=== PATIENT | male | born 1985 | race African-American/Black ===

== ENCOUNTER 2020-08-07 18:29 | Inpatient (IN) | payer OTHER ==
[~2020-08-07] VITALS: Ht 172.7 cm; Wt 51.8 kg
[~2020-08-07 18:29] MED LIST: ALBUTEROL2.5 MG/3 M INH; ATROVENT HFA12.9 GM IH; BACLOFEN10 MG GT; FAMOTIDINE20 MG GT; FERRIPROX GT; FOLIC ACID1 MG GT; HYDREA500 MG GT; HYDROMORPHO2 MG/1 M8 GT; LEVETIRACETAM1000 MG GT; MAGNESIUM OXID400 M1 GT; MORPHINE SU4 MG/1 M2 GT; MULTIVITAMINS1 EAC2 GT; POLYETHYLENE GL17 GM ORAL; TYLENOL EXTRA500 MG GT; VANCOMYCIN HC1.25 GM IV
[2020-08-07 18:30] VITALS: BP 81/55
--- NOTE | 2020-08-07 18:30 | NUR ---
ED Nurse Note: Patient brought into ED by BECCA RA 70 from [facility] for c/o respiratory distress and elevated temperature onset today. Per [facility] the facility stated that patient became hot to the touch, was tachypneic and was more lethargic than normal. Patient has a trach and is permanently on a ventilator at facility. Upon ED arrival, patient was on portable ventilator. Patient appears to be in mild distress, labored breathing and is hot to the touch. ERMD bedside. Patient connected to ekg monitor tech and was initially hypotensive, MD aware. Patient placed on mechanical ventilator by RT. Patient is awake and alert and responds to painful stimuli; able to move extremities. Safety measures in place; will continue to closely monitor patient.
--- NOTE | 2020-08-07 18:45 | NUR ---
ED Nurse Note: Patient has G tube in place. Partial removed of skull noted to R side of head.
[2020-08-07 19:00] VITALS: BP 80/50
--- NOTE | 2020-08-07 19:05 | Diagnostic Imaging Report ---
FILM CXR 1 VIEW INDICATION: Altered level of consciousness COMPARISON: July 20, 2020 FINDINGS: Single frontal view demonstrates a normal cardiomediastinal silhouette. Right lower lobe opacity. Tracheostomy tube in place. No effusion or pneumothorax appreciated. No acute osseous abnormality. IMPRESSION: Right lower lobe pneumonia.
[2020-08-07] MEDS ORDERED: Acetaminophen 650 MG SUPP RECTAL ONE ×2 (19:20→19:30)
--- NOTE | 2020-08-07 19:21 | Emergency Room Report ---
History of Present Illness General Chief Complaint: Dyspnea/Respdistress Source: Medical Record, EMS Present Illness HPI Patient presents with fever, hypotension and hypoxia. Vent dependent from SNF. Last admission d/c dx: MRSA sepsis probably due to infected Port-A-Cath , present on admission Status post removal of implanted right chest wall Port-A-Cath Sickle cell crisis Sickle cell anemia Chronic respiratory failure, ventilator dependent, with tracheostomy status Transaminitis Seizure disorder Allergies: Coded Allergies: ADHESIVE TAPE (Verified Allergy, Unknown, 07/20/20) Uncoded Allergies: TAPE (Allergy, Unknown, 08/07/20) COVID-19 Screening Contact w/high risk pt: No Experienced COVID-19 symptoms?: Yes COVID-19 symptoms experienced: Fever (T>100.4F or >38C) COVID-19 Testing performed SPECIAL EDUCATION RESOURCE ROOM TEACHER: No Patient History Limited by: medical condition Past Medical History: see triage record, old chart reviewed, other - sickle cell, intracerebral hemorrhage Past Surgical History: other - craniectomy, trach Social History Narrative from SNF Reviewed Nursing Documentation: PMH: Agreed; PSxH: Agreed Nursing Documentation-PMH Past Medical History: No History, Except For Review of Systems All Other Systems: limited Physical Exam Vital Signs Date Time Temp Pulse Resp B/P (MAP) Pulse Ox O2 Delivery O2 Flow Rate FiO2 08/07/20 18:23 100.9 104 16 106/54 (71) 100 Mechanical Ventilator 08/07/20 18:36 30 Sp02 EP Interpretation: reviewed, abnormal - as interpreted by me General Appearance: mild distress, thin, Chronically Ill Head: other - post craniectomy Eyes: bilateral eye PERRL, bilateral eye EOMI ENT: dry mucus membranes Neck: supple Respiratory: rales, other - beige secretions in trach tube Cardiovascular #1: regular rate, rhythm Cardiovascular #2: 2+ radial (R), 2+ femoral (R) Gastrointestinal: other - G tube, decreased bowel sounds, scaphoid Genitourinary: penis normal, scrotum normal - minimal inflammation Musculoskeletal: back normal, other Neurologic: responsive - intermittently, other - moves UE Psychiatric: other - lethargic - waxing and waning Skin: no rash, Decubitus/Ulcer - Stage II sacrum, other - febrile Procedures Critical Care Time Critical Care Time Total Critical Care Time: 60 min bedside evaluation and treatment excludes procedures (EKG, CVP). Reason for critical care: severe sepsis, repeat evaluations, discussion with family, tachycardia Possible complications: hypotension, hypertension, KS, shock, arrhythmias, metabolic acidosis, end organ damage, respiratory failure. Interventions: sepsis resuscitation, antibiotics, CVP, repeat evaluations, discussion with family Course: Patient presented febrile, hypotensive and hypoxic. Sepsis resuscitation initiated along with antibiotics for pneumonia. CVP inserted. Tachycardia with repeat evaluations of CXR and lactate. Administration of morphine. Still with tachycardia. EKG with new right axis deviation. CTA ordered. Heparin initially ordered then held. Repeat morphine and fluids. Consultations: nursing staff, EMS, family, RT Performed by: Dr. Chaney Tolerated well condition = critical Central Line Central Line : Consent: Emergent Central Line Lumen: triple Maximal Sterile Barrier Tech: yes cap, yes mask, yes sterile gown, yes sterile gloves, yes large sterile sheet, yes hand hygiene, yes chlorhexidine prep Central Line Postion: femoral (R) Anesthesia: Lidocaine cc's of anesthesia: 4 US Guided Line?: Yes Vessel visualized with U/S: Right Femoral Vein Ultrasound Findings: Collapsible Vessel, Vessel Patent Complications: none Central Line Post Position: sutured, good blood return Attempts: One Patient Tolerated: Well Complications: None Medical Decision Making Diagnostic Impression: Primary Impression: Severe sepsis Additional Impressions: Tachycardia Sickle cell anemia Qualified Codes: D57.00 - Hb-SS disease with crisis, unspecified Status post craniectomy Pneumonia Qualified Codes: J18.9 - Pneumonia, unspecified organism ER Course Patient presented with fever, hypotension and hypoxia. Differential includes severe sepsis, pneumonia, other source of infection, pulmonary embolus amongst others. Evaluation with EKG, chest x-ray and labs. Due to the high suspicion of severe sepsis 30 ml/kg bolus and maintenance ordered. Antibiotics ordered for RLL pneumonia. 724 CVP begun as continued hypotension. Hypotension improved with fluid bolus. WBC elevated. Initial lactate = 1.2. Mentation improved. Worsened dyspnea. HR inc as well as BP. Repeat lactic acid, VBG and CXR. Morphine ordered as c/o chest pain. Added Vancomycin. Discussed in detail with Mom. Improved after morphine. [address] Repeat EKG with new right axis deviation. Need to R/O PE and pulmonary infarction as risk with sickle cell. CTA ordered and heparin also ordered. Heparin held by Dr. Nelson. Await CTA. CTA as below. Pending ICU admission. Laboratory Tests Test 08/07/20 19:00 08/07/20 19:20 08/07/20 22:20 08/07/20 22:34 White Blood Count 31.5 K/UL (4.8-10.8) *H Red Blood Count 2.91 M/UL (4.70-6.10) L Hemoglobin 9.3 G/DL (14.2-18.0) L Hematocrit 29.1 % (42.0-52.0) L Mean Corpuscular Volume 100 FL (80-99) H Mean Corpuscular Hemoglobin 31.9 PG (27.0-31.0) H Mean Corpuscular Hemoglobin Concent 31.9 G/DL (32.0-36.0) L Red Cell Distribution Width 18.6 % (11.6-14.8) H Platelet Count 230 K/UL (150-450) Mean Platelet Volume 10.7 FL (6.5-10.1) H Neutrophils (%) (Auto) % (45.0-75.0) Lymphocytes (%) (Auto) % (20.0-45.0) Monocytes (%) (Auto) % (1.0-10.0) Eosinophils (%) (Auto) % (0.0-3.0) Basophils (%) (Auto) % (0.0-2.0) Differential Total Cells Counted 100 Neutrophils % (Manual) 87 % (45-75) H Lymphocytes % (Manual) 6 % (20-45) L Monocytes % (Manual) 3 % (1-10) Eosinophils % (Manual) 0 % (0-3) Basophils % (Manual) 1 % (0-2) Band Neutrophils 3 % (0-8) Platelet Estimate Adequate Platelet Morphology Normal Hypochromasia 1+ Anisocytosis 2+ Macrocytosis 1+ Prothrombin Time 11.8 SEC (9.30-11.50) H Prothrombin Time INR 1.1 (0.9-1.1) Activated Partial Thromboplast Time 37 SEC (23-33) H Sodium Level 139 MMOL/L (136-145) Potassium Level 5.6 MMOL/L (3.5-5.1) H Chloride Level 101 MMOL/L (98-107) Carbon Dioxide Level 31 MMOL/L (21-32) Anion Gap 7 mmol/L (5-15) Blood Urea Nitrogen 34 mg/dL (7-18) H Creatinine 1.1 MG/DL (0.55-1.30) Estimated Glomerular Filtration Rate > 60 mL/min (>60) Glucose Level 95 MG/DL (74-106) Lactic Acid Level 1.20 mmol/L (0.4-2.0) 1.20 mmol/L (0.4-2.0) Calcium Level 10.0 MG/DL (8.5-10.1) Magnesium Level 2.1 MG/DL (1.8-2.4) Total Bilirubin 1.4 MG/DL (0.2-1.0) H Direct Bilirubin 0.8 MG/DL (0.0-0.3) H Aspartate Amino Transferase (AST) 74 U/L (15-37) H Alanine Aminotransferase (ALT) 94 U/L (12-78) H Alkaline Phosphatase 569 U/L (46-116) H Total Creatine Kinase 9 U/L (26-308) L Troponin I 0.000 ng/mL (0.000-0.056) Pro-B-Type Natriuretic Peptide 401 pg/mL (0-125) H Total Protein 9.4 G/DL (6.4-8.2) H Albumin 3.2 G/DL (3.4-5.0) L Globulin 6.2 g/dL Albumin/Globulin Ratio 0.5 (1.0-2.7) L Lipase 240 U/L (73-393) Urine Color Yellow Urine Appearance Slightly cloudy Urine pH 5 (4.5-8.0) Urine Specific [place] 1.005 (1.005-1.035) Urine Protein 2+ (NEGATIVE) H Urine Glucose (UA) Negative (NEGATIVE) Urine Ketones Negative (NEGATIVE) Urine Blood 1+ (NEGATIVE) H Urine Nitrite Negative (NEGATIVE) Urine Bilirubin Negative (NEGATIVE) Urine Urobilinogen Normal MG/DL (0.0-1.0) Urine Leukocyte Esterase 1+ (NEGATIVE) H Urine RBC 2-4 /HPF (0 - 0) H Urine WBC 5-10 /HPF (0 - 0) H Urine Squamous Epithelial Cells Moderate /LPF (NONE/OCC) H Urine Bacteria Few /HPF (NONE) Venous Blood pH 7.351 Venous Blood Partial Pressure CO2 48 Venous Blood Partial Pressure O2 36.8 Venous Blood HCO3 26 Venous Blood Total Carbon Dioxide 48 Venous Blood Base Excess 0.1 Venous Blood Carboxyhemoglobin 1.1 % (0.5-1.5) Methemoglobin 1.2 Microbiology Date/Time Source Procedure Growth Status 08/07/20 18:43 Nasopharynx SARS-CoV-2 RdRp Gene Assay - Final Complete EKG Diagnostic Results Rate: normal Rhythm: NSR ST Segments: no acute changes Other Impression second EKG with ST and new right axis deviation Rhythm Strip Diag. Results EP Interpretation: yes Rhythm: no PVC's, no ectopy, other - ST Chest X-Ray Diagnostic Results Chest X-Ray Diagnostic Results #1: Chest X-Ray Ordered: Yes # of Views/Limited/Complete: 1 View Indication: Shortness of Breath EP Interpretation: Yes Interpretation: no effusion, no pneumothorax, other - RLL infiltrate Impression: Other Chest X-Ray Diagnostic Results #2: Chest X-Ray Ordered: Yes # of Views/Limited/Complete: 1 View Indication: Other EP Interpretation: Yes Interpretation: no effusion, no pneumothorax, other - worsened infiltrate RLL Impression: Other CT/MRI/US Diagnostic Results CT/MRI/US Diagnostic Results : Imaging Test Ordered: CTA chest Impression 1. There are moderately consolidating infiltrates identified in both lower lobes dependently with mild additional patchy infiltrates dependently in both upper lobes. The findings are consistent with bilateral nonspecific pneumonia. Aspiration pneumonia could give this appearance. The infiltrates are only somewhat typical of Covid 19. Confidence is immediate. 2. Evaluation for pulmonary embolus is limited due to breathing motion artifact. No central pulmonary emboli are identified. Last Vital Signs Date Time Temp Pulse Resp B/P (MAP) Pulse Ox O2 Delivery O2 Flow Rate FiO2 08/08/20 03:00 101.5 130 17 119/73 98 Mechanical Ventilator 35 Status: improved Disposition: ADMITTED INPATIENT Condition: Critical Referrals: All Paige MD (PCP) Benson Chaney MD Aug 07, 2020 19:21
[2020-08-07] MEDS ORDERED: cefTRIAXone 1 GM in NS 55 ML IVPB ONE (19:30)
[2020-08-07] MEDS ORDERED: Azithromycin 500 MG in D5W 275 ML IVPB ONE (19:30)
[2020-08-07 19:41] LABS: HEMATOCRIT 29.1 % (42.0-52.0); HEMOGLOBIN 9.3 G/DL (14.2-18.0); MEAN CORPUSCULAR VOLUME 100 FL (80-99); PLATELET COUNT 230 K/UL (150-450); RED BLOOD COUNT 2.91 M/UL (4.70-6.10); RED CELL DISTRIBUTION WIDTH 18.6 % (11.6-14.8)
[2020-08-07 19:52] LABS: WHITE BLOOD COUNT 31.5 K/UL (4.8-10.8)
[2020-08-07 19:52] LABS: APPEARANCE,URINE SLIGHTLY CLOUDY; BILIRUBIN, URINE NEGATIVE (NEGATIVE); GLUCOSE, URINE (UA) NEGATIVE (NEGATIVE); KETONES,URINE NEGATIVE (NEGATIVE); LEUKOCYTE ESTERASE ,URINE 1+ (NEGATIVE); NITRITE,URINE NEGATIVE (NEGATIVE); PH,URINE 5 (4.5-8.0); PROTEIN,URINE 2+ (NEGATIVE); UROBILINOGEN,URINE NORMAL MG/DL (0.0-1.0)
[2020-08-07 19:53] LABS: COLOR,URINE YELLOW
[2020-08-07 19:57] LABS: INR 1.1 (0.9-1.1)
[2020-08-07 20:00] VITALS: BP 91/43
[2020-08-07] MEDS ORDERED: Lidocaine 1% Plain 30 ml INJ ONE (20:00)
[2020-08-07 20:01] LABS: ANION GAP 7 mmol/L (5-15); BLOOD UREA NITROGEN 34 mg/dL (7-18); CARBON DIOXIDE 31 MMOL/L (21-32); CHLORIDE 101 MMOL/L (98-107); CREATININE 1.1 MG/DL (0.55-1.30); POTASSIUM 5.6 MMOL/L (3.5-5.1); SODIUM 139 MMOL/L (136-145)
--- NOTE | 2020-08-07 20:15 | NUR ---
ED Nurse Note: R femoral central line placed by DONNA Chaney. Patient tolerated well; no complications.
[2020-08-07 20:16] LABS: ALANINE AMINOTRANSFERASE 94 U/L (12-78); ALBUMIN 3.2 G/DL (3.4-5.0); ALBUMIN/GLOBULIN RATIO 0.5 (1.0-2.7); ALKALINE PHOSPHATASE 569 U/L (46-116); ASPARTATE AMINO TRANSFERASE 74 U/L (15-37); BILIRUBIN,TOTAL 1.4 MG/DL (0.2-1.0); CREATINE KINASE 9 U/L (26-308)
[2020-08-07 20:18] LABS: BILIRUBIN,DIRECT 0.8 MG/DL (0.0-0.3)
[2020-08-07 21:00] VITALS: BP 97/59
--- NOTE | 2020-08-07 21:00 | NUR ---
ED Nurse Note: Patient is awake and alert at this time. Coughing noted, RT suctioned patient. No acute distress. Patient responded well to tylenol. See vitals flow sheet. Will continue to monitor. MD is aware of patient's BP.
[2020-08-07 22:20] VITALS: BP 142/89
--- NOTE | 2020-08-07 22:20 | NUR ---
ED Nurse Note: Patient began labored breathing, appears in mild distress with elevated HR. Lip tremors noted. MD made aware and is bedside. RT paged and will suction patient.
--- NOTE | 2020-08-07 22:25 | NUR ---
ED Nurse Note: When asked if patient has pain, he nods head yes. RN touched patient's chest and asked if this is where he is having pain and he nods yes. MD made aware. Will administer pain medication.
[2020-08-07] MEDS ORDERED: Morphine Sulfate 2mg/ml Inj(IV/IM USE ONLY) ONE (22:35)
[2020-08-07] MEDS ORDERED: Morphine Sulfate 2mg/ml Inj(IV/IM USE ONLY) IVP ONE (22:45)
--- NOTE | 2020-08-07 22:55 | Diagnostic Imaging Report ---
EXAM: XR Chest, 1 View CLINICAL HISTORY: DYSPNEA TECHNIQUE: Frontal view of the chest. COMPARISON: Chest radiograph dated 08/07/2020 FINDINGS: Lungs: Increasing airspace opacity of the right lower lung. Pleural space: Unremarkable. No pneumothorax. Heart: Unremarkable. No cardiomegaly. Mediastinum: Unremarkable. Bones/joints: Unremarkable. Tubes, lines and devices: Tracheostomy tube in place. IMPRESSION: Increasing right lower lobe airspace disease suspicious for pneumonia.
[2020-08-07 23:00] VITALS: BP 124/78
[2020-08-07] MEDS ORDERED: EXJADE125 MG GT (23:06)
[2020-08-07] MEDS ORDERED: FERRIPROX GT (23:06)
[2020-08-07] MEDS ORDERED: HIBICLENS118 ML TP (23:06)
[2020-08-08] VITALS (29 sets, daily range): BP systolic 92–152; BP diastolic 49–100
--- NOTE | 2020-08-08 00:30 | NUR ---
ED Nurse Note: Patient remains tachy in 130's. DONNA Chaney is aware and bedside. Patient does not appear to be in any acute distress. Patient temp is trending up again at 99.6F axillary. MD notified.
[2020-08-08] MEDS ORDERED: Acetaminophen 650 MG SUPP RECTAL PRN (00:45)
--- NOTE | 2020-08-08 00:45 | NUR ---
ED Nurse Note: Patient rectal temp 103.7F. Administered Tylenol. combination technician bedside for repeat EKG.
[2020-08-08] MEDS ORDERED: Heparin 5000 units/ml inj IV ONE (01:00)
[2020-08-08] MEDS ORDERED: Heparin 25,000u/D5W 500ml 500 ML IV SCH (01:00)
[2020-08-08] MEDS ORDERED: Vancomycin 1 GM in D5W 275 ML IVPB ONE (01:00)
[2020-08-08] MEDS ORDERED: Morphine Sulfate 4mg/ml Inj (IV USE ONLY) IVP PRN (01:00)
[2020-08-08] MEDS ORDERED: Omnipaque 350 100ml vial INJ PRN (01:00)
--- NOTE | 2020-08-08 01:05 | NUR ---
ED Nurse Note: DONNA Nelson notes to hold heparin drip at this time pending results of CT.
--- NOTE | 2020-08-08 01:05 | NUR ---
ED Nurse Note: Will not administer heparin drip at this time per doctor's orders. Heparin scanned in eMAR, but not administered.
--- NOTE | 2020-08-08 02:00 | NUR ---
ED Nurse Note: Patient is sleeping at this time. Patient RR has gone down to 19 with 100% oxygen saturation. He does not appear to be labored breathing currently. He appears more calm than previous noted condition. HR remains tachy. See vitals flow sheet.
--- NOTE | 2020-08-08 02:40 | NUR ---
ED Nurse Note: Patient rectal temp 101.5F; trending down from previously charted temp.
--- NOTE | 2020-08-08 02:50 | NUR ---
ED Nurse Note: Report given to ARLYN Salomon.
--- NOTE | 2020-08-08 03:00 | NUR ---
ED Nurse Note: Patient transferred to ICU unit at this time as ordered. Patient is awake and alert, no pain currently. Patient is able to answer yes and no questions and make needs known by nodding head, does not speak due to trach. He is breathing normal and does not appear to be in distress at this time. HR remains tachy, BP stable. Patient taken to unit via gurney by RT/RN/lexii and connected to desk monitor. He was moved to ICU bed without complication and reconnected to mechanical vent. R femoral central line and R arm peripheral line are patent/intact. No belongings. Patient's spouse is aware of ICU admission. Addendum: 08/08/20 at 0335 by LATHA Patient's mother not spouse.
--- NOTE | 2020-08-08 03:18 | Diagnostic Imaging Report ---
EXAM: CT Angiography Chest With Intravenous Contrast CLINICAL HISTORY: PE, shortness of breath TECHNIQUE: Axial computed tomographic angiography images of the chest with intravenous contrast. CTDI is 43.50 mGy and DLP is 149.60 mGy-cm. One or more of the following dose reduction techniques were used: automated exposure control, adjustment of the mA and/or kV according to patient size, use of iterative reconstruction technique. MIP reconstructed images were created and reviewed. COMPARISON: No relevant prior studies available. FINDINGS: Pulmonary arteries: Evaluation for pulmonary embolus is limited due to breathing motion artifact. No central pulmonary emboli are identified. Aorta: No acute findings. No thoracic aortic aneurysm. Lungs: There are moderately consolidating infiltrates identified in both lower lobes dependently with mild additional patchy infiltrates dependently in both upper lobes. The findings are consistent with bilateral nonspecific pneumonia. Aspiration pneumonia could give this appearance. The infiltrates are only somewhat typical of Covid 19. Confidence is immediate. Pleural space: Unremarkable. No significant effusion. No pneumothorax. Heart: Unremarkable. No cardiomegaly. No significant pericardial effusion. No evidence of RV dysfunction. Bones/joints: No acute fracture. No dislocation. Soft tissues: Unremarkable. Lymph nodes: Unremarkable. No enlarged lymph nodes. Tubes, lines and devices: There is a tracheostomy tube in good position. IMPRESSION: 1. There are moderately consolidating infiltrates identified in both lower lobes dependently with mild additional patchy infiltrates dependently in both upper lobes. The findings are consistent with bilateral nonspecific pneumonia. Aspiration pneumonia could give this appearance. The infiltrates are only somewhat typical of Covid 19. Confidence is immediate. 2. Evaluation for pulmonary embolus is limited due to breathing motion artifact. No central pulmonary emboli are identified.
--- NOTE | 2020-08-08 03:19 | NUR ---
NURSE NOTES: RECEIVED PATIENT FROM ER NURSE ARLYN MARQUIS VIA CHANDNI. PATIENT DROWSY, RESPONSE TO TACTILE STIMULI, ON TRACH TO VENT, AC 14/TV 500/FIO2 35%/PEEP 5, O2 SATURATION 100% NOTED, HR 120'S/MIN ST NOTED, ABDOMEN SOFT, G TUBE INTACT AND CLAMP STATUS, F/C INTACT AND PATENT, YELLOW URINE OUTED, PPL TO RIGHT FA AND TLC TO RIGHT FEMORAL, INTACT AND PATENT, KEPT SZ AND ASPIRATION PRECAUTION, NOTED OPEN WOUND TO SACRAL AND RIGHT UPPER CHEST, MADE LOWER BED POSITION, ON BED ALARM AND LOCKED, PROVIDED CALL LIGHT WITHIN REACH, WILL CONTINUE TO MONITOR.
--- NOTE | 2020-08-08 04:12 | NUR ---
NURSE NOTES: CALLED DR. EDWARDS REGARDING ADMISSION ORDER THAT LEFT MESSAGE.
--- NOTE | 2020-08-08 05:00 | NUR ---
NURSE NOTES: LE: CALLED DR. IRVING REGARDING ADMISSION ORDER THAT DR. ELLIS WAS WELDER PLAST[employer] DR, LEFT MESSAGE.
--- NOTE | 2020-08-08 05:30 | NUR ---
NURSE NOTES: LE: PATIENT ASLEEP STATUS, NO PAIN OR SOB NOTED AT THIS TIME.
--- NOTE | 2020-08-08 06:08 | NUR ---
NURSE NOTES: SEEN THE PATIENT BY DR. EDWARDS, MADE ADMISSION ORDER, WILL CARRY OUT.
[2020-08-08] MEDS ORDERED: Piperacillin/Tazobactam 3.375 GM in NS 110 ML IVPB SCH (06:15)
[2020-08-08] MEDS ORDERED: Albuterol ud Inhalation HHN PRN (06:15)
--- NOTE | 2020-08-08 06:54 | NUR ---
RD ASSESSMENT & RECOMMENDATIONS SEE CARE ACTIVITY FOR COMPLETE ASSESSMENT DAILY ESTIMATED NEEDS: Needs based on Underweight, Critical care/ 50.8kg 30-35 kcals/kg 0435-0715 total kcals 1.25-2 g protein/kg 64-102 g total protein 25-30 mL/kg 4899-6163 total fluid mLs NUTRITION DIAGNOSIS: Swallowing difficulty R/T respiratory status, dysphagia as evidenced by h/o craniectomy, trach/vent dep, PEG dep. CURRENT TF:Glucerna 1.5 @ 40ml/hr x 24 hrs ENTERAL NUTRITION RECOMMENDATIONS: Jevity1.2 @ 55ml/hr x 24 hrs to provide 1320ml, 1584kcal, 73g prot, 1065ml free water * Consider TF change to Jevity 1.2, start at low rate 25ml/hr advance as tolerated to goal. * HOB over 30 degrees/ H2O flushes per MD ADDITIONAL RECOMMENDATIONS: * Maintain calibrated bedscale wt * Monitor lytes, BG need for TF change * Monitor lytes, replete as needed K 5.6-> monitor need for NEPRO * F/up w/ WC eval for sacral wound
--- NOTE | 2020-08-08 07:30 | NUR ---
NURSE HAND-OFF REPORT: Latest Vital Signs: Temperature 99.7 , Pulse 121 , B/P 93 /56 , Respiratory Rate 16 , O2 SAT 100 , Mechanical Ventilator, O2 Flow Rate . Vital Sign Comment: EKG Rhythm: Sinus Tachycardia Rhythm change?: N MD Notified?: - MD Response: Latest Stevens Fall Score: 50 Fall Risk: High Risk Safety Measures: Call light , Bed Alarm Zone 1, Side Rails Side Rails x3, Bed position Low and Locked. Fall Precautions: Yellow Socks Door Sign Patient Fall Education Report given to ARLYN CORDOVA.
--- NOTE | 2020-08-08 07:31 | NUR ---
NURSE NOTES: Received report from ARLYN Salomon. Patient awake and responsive to verbal. Portex 6 with vent setting AC 14, VT 500, Peep 5 and FiO2 35%. O2 sat 100% on the monitor. ST 120-130s on the monitor. GT intact and clamped at this time. Will start glucerna 1.5 as ordered. [place] intact, patent and draining yellow color urine. Right femoral TLC intact and running with NS @100ml/hr. Kept dry, clean, comfortable and HOB>30. Will continue plan of care.
[2020-08-08] MEDS: Acetaminophen 650mg/20.3ml GT PRN ×2 (08:36→17:38)
--- NOTE | 2020-08-08 08:36 | NUR ---
NURSE NOTES: Patient has fever 101.0 AX. Tylenol given as ordered. Started cooling measure.
[2020-08-08] MEDS: Hydroxyurea 500mg cap ORAL SCH (08:37)
[2020-08-08] MEDS: Vancomycin 1gm in D5W 275ml IVPB SCH ×2 (08:37→20:19)
[2020-08-08] MEDS: Piperacillin/Tazobactam 3.375 GM in NS 110 ML IVPB SCH ×3 (08:38→23:45)
--- NOTE | 2020-08-08 08:41 | Critical Care Progress Note ---
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 Port-A-Cath Status post removal of implanted right chest wall Port-A-Cath Sickle cell crisis Sickle cell anemia Chronic respiratory failure, ventilator dependent, with tracheostomy status Transaminitis Seizure disorder acute pneumonia leukocytosis possible recurrent sepsis PLAN care noted IV antibiotics respiratory care Ventilatory support SNF meds supportive care suction no wean oxygen therapy prognosis guarded medications/laboratory data/nursing notes/ICU care reviewed in detail note reviewed and edited care discussed with RN and RT ICU time spent >40 minutes Critical Care - Subjective Interval Events: asked to follow up on vent readmitted ROS Limited/Unobtainable: Yes Condition: critical EKG Rhythm: Sinus Rhythm Residuals: minimal Tube Feeding Tolerated: yes I&O: Intake and Output 08/07/20 08/08/20 19:00 07:00 Intake Total 45 ml Output Total 3400 ml Balance -3355 ml Intake Oral 0 ml IV Total 45 ml Output Urine Total 3400 ml Critical Care - Objective Last 24 Hour Vital Signs Date Time Temp Pulse Resp B/P (MAP) Pulse Ox O2 Delivery O2 Flow Rate FiO2 08/08/20 07:58 135 23 35 08/08/20 07:00 127 17 110/63 (79) 100 08/08/20 06:30 121 16 93/56 (68) 100 08/08/20 06:00 99.7 117 15 95/59 (71) 100 08/08/20 05:00 122 15 94/52 (66) 100 08/08/20 04:30 121 15 92/59 (70) 100 08/08/20 04:00 Mechanical Ventilator 08/08/20 04:00 122 22 109/67 (81) 100 08/08/20 03:58 119 08/08/20 03:45 119 19 99/63 (75) 100 08/08/20 03:30 35 08/08/20 03:30 119 20 105/68 (80) 100 08/08/20 03:30 Mechanical Ventilator 08/08/20 03:20 99.7 123 17 112/71 (85) 100 08/08/20 03:00 101.5 130 17 119/73 98 Mechanical Ventilator 35 08/08/20 02:46 101.5 08/08/20 02:40 101.5 140 26 139/80 100 Mechanical Ventilator 35 08/08/20 02:35 128 23 35 08/08/20 02:00 125 19 112/85 100 Mechanical Ventilator 40 08/08/20 01:48 101.5 08/08/20 01:00 124 19 115/65 100 Mechanical Ventilator 40 08/08/20 00:30 99.6 137 20 137/69 100 Mechanical Ventilator 40 08/07/20 23:50 134 28 40 08/07/20 23:06 98.0 08/07/20 23:00 98.0 135 25 124/78 100 Mechanical Ventilator 40 08/07/20 22:20 98.0 126 26 142/89 92 Mechanical Ventilator 32 08/07/20 21:00 98.0 86 15 97/59 97 Mechanical Ventilator 32 08/07/20 20:00 85 15 91/43 100 Mechanical Ventilator 32 08/07/20 19:54 98.0 08/07/20 19:00 93 15 80/50 99 Mechanical Ventilator 32 08/07/20 19:00 32 08/07/20 18:36 15 30 08/07/20 18:30 102.6 97 16 81/55 100 Mechanical Ventilator 08/07/20 18:30 97 16 Mechanical Ventilator 08/07/20 18:23 100.9 104 16 106/54 (71) 100 Mechanical Ventilator Labs: WDWN chronically ill trach clear breath sounds bilaterally without rhonchi or wheeze [id number] without MRG NABS nontender GT no CCE poor LOC Micro: Microbiology Date/Time Source Procedure Growth Status 08/07/20 18:43 Nasopharynx SARS-CoV-2 RdRp Gene Assay - Final Complete James Nuñez MD Aug 08, 2020 08:41
[2020-08-08] MEDS ORDERED: Sodium Polystyrene Sulfonate 15gm Powder ORAL SCH (09:15)
--- NOTE | 2020-08-08 10:30 | History and Physical Report ---
DATE OF ADMISSION: 08/07/2020 CHIEF COMPLAINT: Sepsis and pneumonia. HISTORY OF PRESENT ILLNESS: The patient is an unfortunate 35-year-old male. He has a history of sickle cell anemia, stroke, and seizure disorder. He was recently hospitalized with sepsis secondary to infected Port-A-Cath that was removed at the shelter facility. He was noted to be hypotensive and febrile, was sent to the emergency room. On evaluation there, he was diagnosed with sepsis secondary to pneumonia. He has been started on broad-spectrum IV antibiotic therapy and is now admitted to the intensive care unit for further evaluation and care. PAST MEDICAL HISTORY: As above. PAST SURGICAL HISTORY: Includes a history of trach and a G-tube. CURRENT MEDICATIONS: Reconciled and reviewed. ALLERGIES: Include adhesive tape. FAMILY HISTORY: Noncontributory. SOCIAL HISTORY: There is no known history of tobacco, ethanol, or drugs. REVIEW OF SYSTEMS: Unobtainable as the patient is currently on the vent. PHYSICAL EXAMINATION: VITAL SIGNS: Temperature 99.7, pulse 135, respirations 23, blood pressure 110/63. GENERAL: The patient is chronically ill-appearing thin male, in no apparent distress. He does open his eyes, but is otherwise lethargic and poorly responsive. Does not follow commands. Oropharynx is clear. NECK: Supple. Trach site was midline without any erythema or discharge. HEART: Regular rate and rhythm. LUNGS: Significant for scattered rhonchi. ABDOMEN: Soft, nontender, nondistended. EXTREMITIES: Without clubbing or cyanosis. LABORATORY DATA: White count 31,000, hemoglobin 9.3, hematocrit 29, platelets 230,000. Coags are normal. Sodium 139, potassium 5.6, chloride 101, bicarb 31, BUN 34, and creatinine 1.1. Urine was clear. Urine showed [address] scan of the chest showed no PE, but right-sided pneumonia. ASSESSMENT: This is an unfortunate 35-year-old male with a history of chronic respiratory failure, stroke, seizure disorder, and sickle cell anemia, admitted with complaints of sepsis secondary to pneumonia. PLAN: 1. IV antibiotics. 2. IV fluid resuscitation. 3. Respiratory treatments. 4. G-tube feedings. 5. We will follow pending cultures. 6. Monitor chest x-ray. 7. ID and Pulmonary consultations to be obtained. 8. The patient's status is currently guarded. Lalo Celaya M.D. DR: RAMON JOB#: [id number] CC:
--- NOTE | 2020-08-08 10:38 | NUR ---
GAS GENERATOR OPERATOR NOTE Pt is currently in ICU. PT is non-verbal as he is vent dependent. [place] was [place] [facility] [place]2020. [place] [address]. PT has hx of brain surgery. Pt's mother, Chey Bryant is the POA/primary decision maker of pt. Mother expresses full code for pt. Swathi Keenrossi (mother) [phone] Alex Bryant (father) [phone].
--- NOTE | 2020-08-08 11:02 | NUR ---
NURSE NOTES: Patient still has fever 100.4 AX at this time. Still on cooling measures. Will continue to monitor closely.
--- NOTE | 2020-08-08 11:50 | NUR ---
NURSE NOTES: Dr. Celaya made aware of blood culture positive for gram + cocci. No new order at this time.
--- NOTE | 2020-08-08 13:10 | NUR ---
NURSE NOTES: Patient is more awake and alert. Able to follow simple commands. Patient refused being cleaned up. Will try later.
--- NOTE | 2020-08-08 13:25 | NUR ---
NURSE NOTES: Collected blood culture and sent to lab. Addendum: 08/08/20 at 1327 by LILA EDWARDS RN Wrong entry.
--- NOTE | 2020-08-08 14:33 | NUR ---
NURSE NOTES: Repositioned patient. Trach and oral care provided.
[2020-08-08] MEDS ORDERED: ATROVENT HFA12.9 GM IH (14:54)
[2020-08-08] MEDS ORDERED: ALBUTEROL SULF8.5 G1 INH ×2 (14:54)
[2020-08-08] MEDS ORDERED: FERRIPROX GT (14:54)
[2020-08-08] MEDS ORDERED: ACETAMINOPHEN325 M1 ORAL (15:21)
[2020-08-08] MEDS ORDERED: PRO-STAT LIQUID30 ML GT (15:45)
[2020-08-08] MEDS ORDERED: KEPPRA1000 MG GT (15:45)
[2020-08-08] MEDS ORDERED: ZINC SULFATE220 M1 GT (15:45)
[2020-08-08] MEDS ORDERED: HYDREA500 MG GT (15:45)
[2020-08-08] MEDS ORDERED: MORPHINE S10 MG/5 ML GT (15:45)
[2020-08-08] MEDS ORDERED: ASCORBIC ACID500 MG GT (15:45)
[2020-08-08] MEDS ORDERED: MAGNESIUM OXID400 M3 GT (15:45)
[2020-08-08] MEDS ORDERED: POLYETHYLENE GL17 GM GT (15:45)
[2020-08-08] MEDS ORDERED: HYDROMORPHONE HC2 M1 GT (15:45)
--- NOTE | 2020-08-08 16:48 | NUR ---
SENIOR INFORMATION SECURITY ANALYSTTOBACCO PREVENTION HEALTH EDUCATOR 35 YO MALE BIBA FROM [facility] TO ER CC FEVER,DYSPNEA,ALOC SI; RESP FAILURE TRACH/VENT DEPENDENT, SEPSIS T. 102.6 HR 97 RR 16 B/P 81/55 AC 14 TV 500 FIO2 32% PEEP 5 WBC 31.5 K 5.6 BUN 34 AST 74 ALT 94 ALK PHOS 569 CXR= RIGHT LOWER LOBE PNA IS: IV BOLUS NS X 2 LITERS ROCEPHIN IV ZITHROMAX IV TYLENOL GT ADMITTED TO ICU ICU STATUS DCP RETURN TO [facility]
--- NOTE | 2020-08-08 16:54 | NUR ---
NURSE NOTES: Patient had moderate brown soft BM. Bed bath given.
--- NOTE | 2020-08-08 17:38 | NUR ---
NURSE NOTES: Patient has fever 101.0 AX. Tylenol given as ordered. Started cooling measure.
--- NOTE | 2020-08-08 18:29 | NUR ---
NOTES FAXED CLINICALS AND REVIEW TO [facility] PH [phone]
--- NOTE | 2020-08-08 19:00 | NUR ---
NURSE NOTES: Received patient and report from ARLYN Austin. Patient is observed resting in bed and noted to be alert and oriented x3-4. Pt is able to follow commands and make needs known. No pain noted upon assessment. Pt is currently trach to vent; Vent settings as follows: AC 14 TV 500 FiO2 35% PEEP 5 with an O2 saturation of 98% noted at this time. Bilateral lower lobe breath sounds noted to be diminished upon auscultation and rhonchi noted in bilateral upper and lower lobes. Pt noted to be ST on tele monitor with a HR of 114 with no s/sx of acute cardiac distress noted. R Femoral TLC noted which remains asymptomatic, intact and patent. Central line dressing changed due to soiling and remains clean ,dry and intact. R FA 22g IV catheter noted which remains asymptomatic, intact and patent. NS currently infusing at 100mL/hr as ordered without incident. G tube noted which remains intact and patent. Glucerna 1.5 currently infusing at 30mL/hr; no residual noted. Hyperactive bowel sounds noted in all four quadrants, abdomen remains flat, soft and nontender. Diagnostics reviewed at bedside. Skin alterations noted. Pt repositioned for comfort and safety. Fall, Aspiration, Seizure and Skin precautions observed. Pt remains resting in bed; Bed remains in the lowest position with the safety wheels engaged, call light within reach, side rails up x3 and bed alarm activated. Will continue plan of care. Will continue to monitor.
--- NOTE | 2020-08-08 19:07 | NUR ---
HAND-OFF: Report given to ARLYN Liu. Endorsed plan of care.
[2020-08-08] MEDS: Dyna-Hex 2% Top Sol 2oz TOPIC SCH (20:19)
[2020-08-08] MEDS: Morphine Sulfate 2mg/ml Inj(IV/IM USE ONLY) IVP PRN (20:20)
[2020-08-08] MEDS: Heparin 5000 units/ml inj SUBQ SCH (20:21)
--- NOTE | 2020-08-08 21:00 | NUR ---
NURSE NOTES: Pt provided with a CHG bed bath, oral care and linen change. ROM exercises performed per pt tolerance. Pt tolerated care well. Bedside assessment performed, assessed pt with a FLACC scale of 0 noted. VS obtained and temperature of 102.4F noted and pt remains hot to touch, cooling measures initiated at this time. Pt repositioned for comfort and safety. Fall, Aspiration, Seizure and Skin precautions observed. Pt remains resting in bed; Bed remains in the lowest position with the safety wheels engaged, call light within reach, side rails up x3 and bed alarm activated. Will continue plan of care. Will continue to monitor.
--- NOTE | 2020-08-08 22:02 | NUR ---
NURSE NOTES: Paged condenser tester physician, Dr Spears, pt has extreme anxiety needs PRN mediation Will await a call back and continue to monitor.
--- NOTE | 2020-08-08 23:00 | NUR ---
NURSE NOTES: Bedside assessment performed, re-assessed pt for pain in which he currently denies at this time. Temperature remains elevated but improved despite intervention, will continue cooling measures. Pt noted to be viably agitated and admits to anxiety. Pt continues to insist that his mom come and visit him. Pt's mom contacted, updated, still unable to calm patient at this time. Awaiting a call back from Dr Spears, covering for primary Dr Celaya, will discuss pt condition and PRN medication. Pt remains clean and dry. Pt repositioned for safety and comfort. Fall, Aspiration, Seizure and Skin precautions observed. Pt remains resting in bed; Bed remains in the lowest position with the safety wheels engaged, call light within reach, side rails up x3 and bed alarm activated. Will continue plan of care. Will continue to monitor.
--- NOTE | 2020-08-08 23:03 | NUR ---
NURSE NOTES: Paged correctional therapy teacher physician, Dr Spears, pt has extreme anxiety and now a sustained HR in the 150s Will await a call back and continue to monitor.
[2020-08-08] MEDS ORDERED: LORazepam Inj 2mg/ml 1ml IV PRN (23:15)
[2020-08-08] MEDS ORDERED: LORazepam Inj 2mg/ml 1ml ONE (23:18)
--- NOTE | 2020-08-08 23:49 | NUR ---
NURSE NOTES: Paged Dr Nuñez regarding current pt condition. Pt anxiety improved but audible air leak noted. RT called to bedside, tubing changed, pt suctioning for excess secretions, trach site cleaned and cuff pressure checked. HR ntoed to be elevated at 167 BP elevated at 178/98 RR 40 noted. Will await a call back and continue to monitor.
[2020-08-09] VITALS (34 sets, daily range): BP systolic 91–208; BP diastolic 51–164
--- NOTE | 2020-08-09 | NUR ---
NURSE NOTES: Left second message for secretary of state. Will await a call back and continue to monitor.
--- NOTE | 2020-08-09 00:14 | NUR ---
NURSE NOTES: supervisor painting to page catalytic converter operator. Will await a call back and continue to monitor.
--- NOTE | 2020-08-09 00:15 | NUR ---
NURSE NOTES: Discussed current pt condition and plan of care with Dr Nuñez. ED physician to be called to come evaluate patient to determine if emergency trach change is necessary. Will continue to monitor.
--- NOTE | 2020-08-09 00:42 | NUR ---
NURSE NOTES: Dr Linda present at bedside to assess patient to assess patient. Per Dr Linda emergency trach change not indicated at this time. ABG pending, will await results and update physicians as indicated. Will continue to monitor.
--- NOTE | 2020-08-09 01:13 | NUR ---
NURSE NOTES: Pt HR and BP remain elevated with a HR between 160-180 noted, SBP 160-[address] Spears regarding current pt condition. Will continue to monitor and await a call back.
--- NOTE | 2020-08-09 01:43 | NUR ---
NURSE NOTES: Second page left for Dr Spears. Will continue to await a call back and continue to monitor.
--- NOTE | 2020-08-09 01:53 | NUR ---
NURSE NOTES: Discussed current pt condition and plan of care with Dr Spears, STAT chest rad ordered. Will carry out orders. Will continue to monitor.
--- NOTE | 2020-08-09 02:15 | NUR ---
NURSE NOTES: Radiology present at bedside to carry out orders. Pt tolerated diagnostics well. Will continue to monitor.
--- NOTE | 2020-08-09 02:30 | NUR ---
NURSE NOTES: ER MD came to reassess the patient. No trach change was done or needed per MD. MD reviewed chest radiograph and notes changes from previous exam consistent with development of ARDS; ER MD recommends an increase in PEEP. Will await radiology report and consult with physician as appropriate.
--- NOTE | 2020-08-09 02:56 | NUR ---
NURSE NOTES: Called radiology to confirm status of STAT chest rad report; per Hans, image is being read but not report yet. Will continue to monitor.
--- NOTE | 2020-08-09 03:00 | NUR ---
NURSE NOTES: Bedside assessment performed, assessed pt for pain in which he currently denies. VS obtained and noted as follows: Temp 98.4F, HR 134, BP 114/68 RR 25 with increased WOB noted. Radiology report delivered to unit by Hans. Called to notify Dr Spears. Will await a call back, 12 lead EKG still shows ST but otherwise normal. Pt remains clean and dry. Pt repositioned for safety and comfort. Pt placed back on covid precautions pending discussion with MD, only 1 covid test done upon admission. AM labs drawn and sent to laboratory for assessment. Fall, Aspiration and Skin precautions observed. Pt remains resting in bed; Bed remains in the lowest position with the safety wheels engaged, call light within reach, side rails up x3 and bed alarm activated. Will continue plan of care. Will continue to monitor.
--- NOTE | 2020-08-09 03:30 | NUR ---
NURSE NOTES: Spoke with Hans dynamics ax technical architect. STAT Chest x-ray has not been read yet. Awaiting results.
--- NOTE | 2020-08-09 03:33 | Diagnostic Imaging Report ---
EXAM: XR Chest, 1 View CLINICAL HISTORY: Tachypnea TECHNIQUE: Frontal view of the chest. COMPARISON: 08/07/20 at 2230 hrs. FINDINGS: Lungs: Again seen is bilateral lower lobe airspace consolidation likely associated with pneumonia. New or worsened pulmonary edema bilaterally. Pleural space: No evidence of pneumothorax. Heart: Unremarkable. No cardiomegaly. Mediastinum: Tracheostomy tube in place. No mediastinal widening or shift. Bones/joints: No acute osseous abnormality. IMPRESSION: There is new or worsened pulmonary edema which may be associated with cardiac dysfunction or hypervolemia. Again seen is airspace consolidation in both lower lobes, likely due to pneumonia.
[2020-08-09 04:01] LABS: HEMOGLOBIN 8.1 G/DL (14.2-18.0); MEAN CORPUSCULAR VOLUME 97 FL (80-99); PLATELET COUNT 269 K/UL (150-450); RED BLOOD COUNT 2.58 M/UL (4.70-6.10); RED CELL DISTRIBUTION WIDTH 17.9 % (11.6-14.8)
--- NOTE | 2020-08-09 04:33 | NUR ---
NURSE NOTES: Paged Dr Spears regarding chest radiograph results and current pt condition. Will await a call back and continue to monitor. Current VS as follows: Temp 97.9F, RR 24 with increased WOB, HR 125, BP 111/74 Will await a call back and continue to monitor.
[2020-08-09 04:52] LABS: ALANINE AMINOTRANSFERASE 70 U/L (12-78); ALBUMIN 2.6 G/DL (3.4-5.0); ALBUMIN/GLOBULIN RATIO 0.5 (1.0-2.7); ALKALINE PHOSPHATASE 490 U/L (46-116); ANION GAP 9 mmol/L (5-15); ASPARTATE AMINO TRANSFERASE 58 U/L (15-37); BILIRUBIN,TOTAL 2.1 MG/DL (0.2-1.0); BLOOD UREA NITROGEN 13 mg/dL (7-18); CALCIUM 9.4 MG/DL (8.5-10.1); CARBON DIOXIDE 27 MMOL/L (21-32); CHLORIDE 113 MMOL/L (98-107); CREATININE 0.8 MG/DL (0.55-1.30); POTASSIUM 3.1 MMOL/L (3.5-5.1); SODIUM 149 MMOL/L (136-145)
--- NOTE | 2020-08-09 04:52 | NUR ---
NURSE NOTES: Dr Nuñez paged by instant powder supervisor regarding current pt condition including radiology report and critical WBC 55.0 noted on AM labs. Will continue to monitor and await a call back.
--- NOTE | 2020-08-09 05:00 | NUR ---
NURSE NOTES: Bedside assessment performed, assessed pt with a FLACC scale of 0 noted. Pt provided with a bed bath, oral care and linen change. Large, liquid, brown BM noted. Central line dressing noted to be covered in feces and subsequently changed. Rectal tube inserted and wound care performed per order. Pt repositioned for safety and comfort. Peak inspiratory pressure noted to be high, Dr Nuñez made aware and in communication. Fall, Aspiration and Skin precautions observed. Pt remains resting in bed; Bed remains in the lowest position with the safety wheels engaged, call light within reach, side rails up x3 and bed alarm activated. Will continue plan of care. Will continue to monitor.
--- NOTE | 2020-08-09 05:09 | NUR ---
NURSE NOTES: Dr Nuñez requests STAT 12 lead and EKG Will carry out orders and continue to monitor.
[2020-08-09 05:22] LABS: BILIRUBIN,DIRECT 1.4 MG/DL (0.0-0.3)
--- NOTE | 2020-08-09 05:30 | NUR ---
NURSE NOTES: Dr Nuñez made aware of results. Per Dr Nuñez do not treat tachycardia, ABG results noted and he will come see the patient. Will continue to monitor patient. Will report any additional complications.
--- NOTE | 2020-08-09 05:48 | NUR ---
NURSE NOTES: Message left for MD Caldera at this time in regards to patient Vent peak pressures 60. awaiting call back.
--- NOTE | 2020-08-09 05:57 | NUR ---
NURSE NOTES: MD Nuñez called back with orders to DC peep at this time. RT Pop notified.
--- NOTE | 2020-08-09 06:34 | NUR ---
NURSE NOTES: Called and notified MD Nuñez about patient peak pressures 70. ordered to change vent settings PC 50, AC 24 Fio2 40% then get an ABG in 1 HR.
--- NOTE | 2020-08-09 06:48 | NUR ---
NURSE NOTES: Change in pt condition reported to Dr Nuñez. Pt not longer responsive, increased WOB, diagnostic results and VS. Will continue to monitor. Dr Nuñez to come see pt.
--- NOTE | 2020-08-09 07:15 | NUR ---
NURSE HAND-OFF REPORT: Latest Vital Signs: Temperature 97.5 , Pulse 113 , B/P 100 /51 , Respiratory Rate 19 , O2 SAT 100 , Mechanical Ventilator, O2 Flow Rate . Vital Sign Comment: Numerous changes in VS throughout shift, MD Joaquin and MD Regan made aware EKG Rhythm: Sinus Tachycardia Rhythm change?: Y Notified?: Y -Dr Regan JIMENEZ Response: Order chest RAD-order carried out and reported to Dr Spears and Dr Nuñez Latest Stevens Fall Score: 50 Fall Risk: High Risk Safety Measures: Call light Within Reach, Bed Alarm Zone 3, Side Rails Side Rails x3, Bed position Low and Locked. Fall Precautions: Yellow Socks Door Sign Patient Fall Education Report given to ARLYN Austin. Endorsed plan of care.
--- NOTE | 2020-08-09 07:16 | NUR ---
NURSE NOTES: Received report from ARLYN Liu. Patient is not responsive at this time. Portex 6 with vent setting PC 50, AC 24, FiO2 40% and no peep. O2 sat 100% on the monitor. ST 100s on the monitior. SBP 90s. Gtube intact and clamped at this time. Overton intact and draining with yellow color urine. Right femoral TLC intact and running with NS @100ml/hr. Kept dry, clean, comfortable and HOB>30. Will continue plan of care.
--- NOTE | 2020-08-09 07:25 | NUR ---
NURSE NOTES: Seen by Dr. Celaya and assessed patient. Updated patient's status/Labs. DrIzabela will put some orders. Will follow up.
--- NOTE | 2020-08-09 08:02 | NUR ---
NURSE NOTES: Seen by Dr. Nuñez and assessed patient. Informed ABG results and ordered new vent setting.
[2020-08-09] MEDS ORDERED: Zosyn 4.5gm q8h **Extended infusion IVPB SCH ×2 (08:15)
[2020-08-09] MEDS: Hydroxyurea 500mg cap ORAL SCH (08:22)
[2020-08-09] MEDS: Heparin 5000 units/ml inj SUBQ SCH ×2 (08:22→20:03)
[2020-08-09] MEDS: Vancomycin 1gm in D5W 275ml IVPB SCH ×2 (08:23→20:03)
--- NOTE | 2020-08-09 08:52 | NUR ---
NURSE NOTES: Patient is fully awake and able to follow commands.
--- NOTE | 2020-08-09 10:28 | NUR ---
NURSE NOTES: Seen by Dr. Degroot and assessed patient.
--- NOTE | 2020-08-09 10:45 | NUR ---
NURSE NOTES: Seen by Wound care nurse and assessed patient. Wound treatment given.
--- NOTE | 2020-08-09 11:40 | NUR ---
NURSE NOTES: Collected sputum and sent to lab.
[2020-08-09] MEDS: Meropenem 500 MG in NS 55 ML IVPB SCH ×2 (12:17→21:51)
--- NOTE | 2020-08-09 13:14 | Consultation ---
DATE OF CONSULTATION: 08/09/2020 INFECTIOUS DISEASES CONSULTATION CONSULTING PHYSICIAN: Isabelle Degroot MD. REFERRING PHYSICIAN: Lalo Celaya MD. REASON FOR CONSULTATION: Sepsis. HISTORY OF PRESENT ILLNESS: This is a 35-year-old gentleman with history of sickle cell anemia, seizures, stroke, who recently had an infected PermCath that was removed at [facility]. Now he came in febrile and hypotensive. He was found to have a pneumonia as well as sepsis and an Infectious Diseases consultation has been obtained for antibiotics. PAST MEDICAL HISTORY: 1. History of sickle cell disease. 2. Stroke. 3. Seizure disorder. 4. Respiratory failure, status post tracheostomy. 5. Status post G-tube placement. SOCIAL HISTORY: No history of smoking, alcohol, or drug use. FAMILY HISTORY: Unknown. REVIEW OF SYSTEMS: Unable to obtain currently. MEDICATIONS: As an inpatient he is on Zosyn, Ativan, subcutaneous heparin, chlorhexidine gluconate, baclofen, famotidine, folic acid, multivitamin, Keppra, hydroxyurea, intravenous vancomycin, Tylenol, albuterol, morphine. ALLERGIES: Adhesive tape. PHYSICAL EXAMINATION: VITAL SIGNS: Temperature of 99, T-max of 102.1, pulse of 104, respiratory rate 18, blood pressure 106/72, O2 saturation of 100%. HEENT: Pupils are equally reactive to light and accommodation. Mouth appears clean without thrush. Tracheostomy site is clean CARDIOVASCULAR: Regular rate and rhythm. No murmurs. LUNGS: Clear to auscultation bilaterally. No crackles. No wheezes. ABDOMEN: Soft and nontender. G-tube site appears clean. EXTREMITIES: No cyanosis, no clubbing, no edema. Right groin catheter noted. LABORATORY AND DIAGNOSTIC DATA: White count of 55, hemoglobin 8.1, hematocrit 25, MCV 97, platelet count of 269 with neutrophils of 82%. Sodium 149, potassium 3.1, chloride 113, bicarb 27, BUN 13, creatinine 0.8, glucose of 88, calcium 9.4. Total bilirubin 2.1, direct bilirubin 1.4, AST 58, ALT 70, alkaline phosphatase 490. Total protein 8.2, albumin 2.6, lipase of 240. UA showing 5 to 10 white cells. Blood culture showing gram-positive cocci. COVID-19 test on 08/07/2020 is negative. Chest x-ray is showing worsen pulmonary edema, may be associated with cardiac dysfunction or hypovolemia, airspace consolidation of both lower lobes, likely due to pneumonia. CT chest angiogram showing moderately consolidating infiltrates of both lower lobes with mild additional patchy infiltrates in both upper lobes consistent with nonspecific pneumonia, aspiration pneumonia could do this, no central pulmonary emboli are noted. ASSESSMENT: This is a 35-year-old gentleman with history of sickle cell disease, stroke, seizures who comes in febrile and hypotensive and is found to have. 1. Gram-positive sepsis. 2. He probably has an aspiration pneumonia. COVID-19 test is negative. 3. Increasing leukocytosis. 4. Sickle cell disease. 5. Seizures. PLAN: 1. Continue IV vancomycin. 2. Discontinue Zosyn. 3. We will start the patient on meropenem. 4. We will order sputum for Gram stain and culture. 5. We will follow up cultures and adjust antibiotics accordingly. I would like to thank, Dr. Celaya, for this consultation. Isabelle Degroot M.D. DR: Volodymyr JOB#: [id number] CC: Lalo Celaya M.D.
--- NOTE | 2020-08-09 14:02 | NUR ---
NURSE NOTES: Repositioned patient. Provided oral care.
--- NOTE | 2020-08-09 14:11 | NUR ---
TORCH OPERATORPIN DRAFTING MACHINE OPERATOR SI: RESP FAILURE TRACH/VENT DEPENDENT,SEPSIS T. 98.5 HR 111 RR 18 B/P 97/61 AC 18 TV 358 FIO2 40% WBC 55.0 NA 149 K 3.1 AST 58 ALK PHOS 490 IS: MEROPENEM IV VANCO IV IVF NS @ 100ML/HR ICU STATUS
--- NOTE | 2020-08-09 14:14 | NUR ---
ADMINISTRATIVE PROGRAM SPECIALIST NOTES CLINICALS REVIEWED AND FAXED.
--- NOTE | 2020-08-09 15:24 | Consultation ---
History of Present Illness General Date patient seen: Aug 09, 2020 Reason for Hospitalization: Dyspnea/Respdistress Present Illness HPI This is a 35-year-old male well-known to me from recent admission at which time was identified to have a infected Port-A-Cath that was removed by myself at the bedside. Patient recovered and was discharged in safe condition but now presents with significant leukocytosis hypotension fevers and sepsis. On admission CT reviewed considerations for trach and site being source of infection surgery called to evaluate and assist with care. Patient seen, patient evaluate, chart reviewed patient awake alert responsive. Unable to talk but able to respond appropriately Allergies: Coded Allergies: ADHESIVE TAPE (Verified Allergy, Unknown, 07/20/20) Uncoded Allergies: TAPE (Allergy, Unknown, 08/07/20) COVID-19 Screening Contact w/high risk pt: No Experienced COVID-19 symptoms?: Yes COVID-19 symptoms experienced: Fever (T>100.4F or >38C) Medication History Scheduled Albuterol Sulfate* (Albuterol Sulfate Hfa*), 2 PUFF INH Q3H, (Reported) Albuterol Sulfate* (Albuterol Sulfate Hfa*), 2 PUFF INH Q6H, (Reported) Amino Acids/Protein Hydrolys (Pro-Stat Liquid), 30 ML GT DAILY, (Reported) Ascorbic Acid* (Ascorbic Acid*), 500 MG GT DAILY, (Reported) Baclofen* (Baclofen*), 10 MG GT THREE TIMES A DAY, (Reported) Chlorhexidine Gluconate* (Hibiclens*), 15 ML TP BID, (Reported) Deferasirox (Exjade), 1,080 MG GT DAILY, (Reported) Deferiprone (Ferriprox), 1,000 MG GT Q8HR, (Reported) Famotidine* (Pepcid 20mg tablet*), 20 MG GT DAILY, (Reported) Folic Acid* (Folic Acid*), 1 MG GT DAILY, (Reported) Ipratropium [place] (Atrovent Hfa), 2 PUFFS IH Q3HR, (Reported) Levetiracetam (Keppra), 1,000 MG GT DAILY, (Reported) Magnesium Oxide (Magnesium Oxide), 400 MG GT DAILY, (Reported) Multivitamins* (Multivitamins*), 1 TAB GT DAILY, (Reported) Polyethylene Glycol 3350* (Polyethylene Glycol 3350*), 17 GM GT BEDTIME, ( Reported) Zinc Sulfate (Zinc Sulfate*), 220 MG GT DAILY, (Reported) Scheduled PRN Acetaminophen* (Acetaminophen 325MG Tablet*), 650 MG ORAL Q4H PRN for Mild pain/ temp >101F, (Reported) Hydromorphone Hcl (Hydromorphone Hcl), 2 MG GT for Moderate Pain (Pain Scale 4-6 ), (Reported) Hydroxyurea* (HYDREA 500mg*), 500 MG GT DAILY PRN for SICKLE CELL ANEMIA , ( Reported) Ipratropium [place] (Atrovent Hfa), 12.9 GM IH Q6HR PRN for Shortness of Breath, (Reported) Morphine 10mg/5ml Oral Soln* (Morphine 10mg/5ml Oral Soln*), 4 MG GT for Severe Pain (Pain Scale 7-10), (Reported) Discontinued Medications Acetaminophen* (Tylenol Extra Strength*), 650 MG GT Q4H PRN for Temp >101/Mild pain, (Reported) Discontinued Reason: Prescription changed Albuterol Sulfate* (Albuterol Sulfate Hhn*), 3 ML INH Q4H PRN for Shortness of Breath, (Reported) Discontinued Reason: Pt stopped taking med Deferiprone (Ferriprox), 500 MG GT, (Reported) Discontinued Reason: MD discontinued med Deferiprone (Ferriprox), 500 MG GT EVERY 8 HOURS, (Reported) Discontinued Reason: Prescription changed Hydromorphone HCl/Pf (Hydromorphone 2 mg/ml Vial), 2 MG GT, (Reported) Discontinued Reason: Pt stopped taking med Hydroxyurea* (HYDREA 500mg*), 500 MG GT, (Reported) Discontinued Reason: Pt stopped taking med Levetiracetam (Levetiracetam), 1,000 MG GT TWICE A DAY, (Reported) Discontinued Reason: MD discontinued med Magnesium Oxide (Magnesium Oxide), 400 MG GT DAILY, (Reported) Discontinued Reason: Therapy completed Morphine Sulfate (Morphine Sulfate), 4 MG GT, (Reported) Discontinued Reason: Therapy completed Polyethylene Glycol 3350* (Polyethylene Glycol 3350*), 17 GM ORAL BEDTIME PRN for Constipation, (Reported) Discontinued Reason: Therapy completed Vancomycin HCl (Vancomycin HCl), 1.25 GM IV Q8H, (Reported) Discontinued Reason: Pt stopped taking med Patient History History Provided By: PMD Healthcare decision maker Resuscitation status Advanced Directive on File Past Medical/Surgical History Past Medical/Surgical History: (1) Sepsis (2) Port-A-Cath in place (3) Sickle cell crisis (4) Pneumonia (5) Sickle cell anemia (6) Tachycardia (7) Severe sepsis Review of Systems Review of Symptoms General ROS: no weight loss or fever Psychological ROS: no depression or mood changes, no memory loss Ophthalmic ROS: no visual changes or eye irritation ENT ROS: no nasal congestion, hearing loss, dizziness Allergy and Immunology ROS: no allergic symptoms or urticaria Hematological and Lymphatic ROS: no swollen glands, unusual bleeding or bruising Endocrine ROS: no polyuria, polydipsia, weight changes, temperature intolerance Respiratory ROS: no cough, shortness of breath, or wheezing Cardiovascular ROS: no chest pain or dyspnea on exertion Gastrointestinal ROS: denies abdominal pain, bright red blood in stool. Musculoskeletal ROS: no myalgias or arthralgias Neurological ROS: no TIA or stroke symptoms Dermatological ROS: no new or changing skin lesions, rashes or pruritis Physical Exam Physical Exam General appearance: alert, cooperative, no distress, appears stated age Head: Normocephalic, without obvious abnormality, atraumatic Eyes: conjunctivae/corneas clear. PERRL, EOM's intact. Fundi benign Throat: Lips, mucosa, and tongue normal. Teeth and gums normal trach Neck: supple, symmetrical, trachea midline, no adenopathy, thyroid: not enlarged, symmetric, no tenderness/mass/nodules, no carotid bruit and no JVD Lungs: clear to auscultation bilaterally chest wall wound stable Heart: regular rate and rhythm, S1, S2 normal, no murmur, click, rub or gallop Abdomen: soft, non-tender. Bowel sounds normal. No masses, no organomegaly Extremities: extremities normal, atraumatic, no cyanosis or edema Pulses: 2+ and symmetric Skin: Skin color, texture, turgor normal. No rashes or lesions Neurologic: Grossly normal Last 24 Hour Vital Signs Date Time Temp Pulse Resp B/P (MAP) Pulse Ox O2 Delivery O2 Flow Rate FiO2 08/09/20 14:29 95 18 40 08/09/20 13:00 3 18 96/58 (71) 100 08/09/20 12:00 Mechanical Ventilator Mechanical Ventilator 08/09/20 12:00 98.5 97 18 97/61 (73) 100 08/09/20 12:00 97 18 97/61 (73) 100 08/09/20 12:00 99 08/09/20 11:00 104 15 101/61 (74) 100 08/09/20 10:55 104 18 40 08/09/20 10:00 104 18 106/72 (83) 100 08/09/20 09:00 40 08/09/20 09:00 111 18 96/55 (69) 100 08/09/20 09:00 Mechanical Ventilator Mechanical Ventilator 08/09/20 08:30 113 18 99/55 (70) 100 08/09/20 08:00 104 08/09/20 08:00 40 08/09/20 08:00 99.0 111 24 102/61 (75) 100 08/09/20 08:00 Mechanical Ventilator Mechanical Ventilator 08/09/20 07:52 109 24 40 08/09/20 07:00 100 24 95/54 (68) 100 08/09/20 06:30 105 14 91/58 (69) 100 08/09/20 06:00 113 19 100/51 (67) 100 08/09/20 05:30 117 21 105/66 (79) 100 08/09/20 05:00 116 23 106/67 (80) 100 08/09/20 04:30 124 27 111/74 (86) 100 08/09/20 04:00 35 08/09/20 04:00 Mechanical Ventilator Mechanical Ventilator 08/09/20 04:00 97.5 130 26 114/68 (83) 100 08/09/20 03:30 133 26 109/73 (85) 100 08/09/20 03:15 136 08/09/20 03:00 140 22 100/61 (74) 100 08/09/20 03:00 129 24 35 08/09/20 02:30 134 18 104/68 (80) 100 08/09/20 02:08 141 23 111/75 (87) 100 08/09/20 02:00 141 23 108/66 (80) 100 08/09/20 01:41 148 27 199/164 (176) 100 08/09/20 01:30 150 27 196/163 (174) 100 08/09/20 01:09 155 29 154/128 (137) 100 08/09/20 01:00 156 30 208/149 (168) 100 08/09/20 00:14 159 39 162/126 100 08/09/20 00:00 Mechanical Ventilator Mechanical Ventilator 08/09/20 00:00 101.6 165 42 162/126 (138) 100 08/09/20 00:00 35 08/08/20 23:57 165 08/08/20 23:44 166 40 162/94 94 08/08/20 23:00 152 25 151/85 (107) 99 08/08/20 22:00 141 25 151/100 (117) 98 08/08/20 21:00 132 20 152/73 (99) 100 08/08/20 21:00 129 28 35 08/08/20 20:00 102.1 124 17 118/64 (82) 96 08/08/20 20:00 Mechanical Ventilator Mechanical Ventilator 08/08/20 20:00 35 08/08/20 19:43 125 08/08/20 19:00 128 16 112/58 (76) 93 08/08/20 19:00 127 15 35 08/08/20 18:08 99.5 08/08/20 18:00 128 16 115/61 (79) 100 08/08/20 17:00 123 17 128/81 (97) 100 08/08/20 16:37 119 08/08/20 16:00 117 24 116/77 (90) 99 08/08/20 16:00 35 08/08/20 16:00 Mechanical Ventilator 08/08/20 16:00 99.2 117 24 116/77 (90) 99 Intake and Output 08/08/20 08/09/20 19:00 07:00 Intake Total 2038.125 ml 1900.833 ml Output Total 1350 ml 1325 ml Balance 688.125 ml 575.833 ml Intake Oral 0 ml Free Water 150 ml 60 ml IV Total 1668.125 ml 1690.833 ml Tube Feeding 220 ml 150 ml Output Urine Total 1350 ml 1325 ml # Bowel Movements 1 3 Laboratory Tests Test 08/09/20 00:47 08/09/20 03:50 08/09/20 07:53 Arterial Blood pH 7.446 (7.350-7.450) 7.587 (7.350-7.450) Arterial Blood Partial Pressure CO2 36.0 mmHg (35.0-45.0) 24.5 mmHg (35.0-45.0) *L Arterial Blood Partial Pressure O2 82.0 mmHg (75.0-100.0) 68.2 mmHg (75.0-100.0) L Arterial Blood HCO3 24.0 mmol/L (22.0-26.0) 22.8 mmol/L (22.0-26.0) Arterial Blood Oxygen Saturation 95.1 % (95-100) 95.9 % (95-100) Arterial Blood Base Excess 0.9 (-2-2) 1.5 (-2-2) Iglesia Test Positive Positive White Blood Count 55.0 K/UL (4.8-10.8) #*H Red Blood Count 2.58 M/UL (4.70-6.10) L Hemoglobin 8.1 G/DL (14.2-18.0) L Hematocrit 25.0 % (42.0-52.0) L Mean Corpuscular Volume 97 FL (80-99) Mean Corpuscular Hemoglobin 31.4 PG (27.0-31.0) H Mean Corpuscular Hemoglobin Concent 32.3 G/DL (32.0-36.0) Red Cell Distribution Width 17.9 % (11.6-14.8) H Platelet Count 269 K/UL (150-450) Mean Platelet Volume 10.2 FL (6.5-10.1) H Neutrophils (%) (Auto) % (45.0-75.0) Lymphocytes (%) (Auto) % (20.0-45.0) Monocytes (%) (Auto) % (1.0-10.0) Eosinophils (%) (Auto) % (0.0-3.0) Basophils (%) (Auto) % (0.0-2.0) Differential Total Cells Counted 100 Neutrophils % (Manual) 82 % (45-75) H Lymphocytes % (Manual) 5 % (20-45) L Monocytes % (Manual) 11 % (1-10) H Eosinophils % (Manual) 0 % (0-3) Basophils % (Manual) 2 % (0-2) Band Neutrophils 0 % (0-8) Nucleated Red Blood Cells 2 /100 WBC Platelet Estimate Adequate Platelet Morphology Normal Anisocytosis 1+ Sodium Level 149 MMOL/L (136-145) H Potassium Level 3.1 MMOL/L (3.5-5.1) L Chloride Level 113 MMOL/L (98-107) H Carbon Dioxide Level 27 MMOL/L (21-32) Anion Gap 9 mmol/L (5-15) Blood Urea Nitrogen 13 mg/dL (7-18) Creatinine 0.8 MG/DL (0.55-1.30) Estimat Glomerular Filtration Rate > 60 mL/min (>60) Glucose Level 88 MG/DL (74-106) Calcium Level 9.4 MG/DL (8.5-10.1) Total Bilirubin 2.1 MG/DL (0.2-1.0) H Direct Bilirubin 1.4 MG/DL (0.0-0.3) H Aspartate Amino Transf (AST/SGOT) 58 U/L (15-37) H Alanine Aminotransferase (ALT/SGPT) 70 U/L (12-78) Alkaline Phosphatase 490 U/L (46-116) H Total Protein 8.2 G/DL (6.4-8.2) Albumin 2.6 G/DL (3.4-5.0) L Globulin 5.6 g/dL Albumin/Globulin Ratio 0.5 (1.0-2.7) L Height (Feet): 5 Height (Inches): 10.00 Weight (Pounds): 112 Medications Current Medications Medications (Trade) Dose Ordered Sig/Piedad Route PRN Reason Start Time Stop Time Status Last Admin Dose Admin Acetaminophen (Tylenol) 650 mg Q6H PRN GT Temp >100.5 08/08/20 07:45 09/07/20 07:44 08/08/20 17:38 Albuterol Sulfate (Proventil) 2.5 mg Q4H PRN HHN Shortness of Breath 08/08/20 06:15 08/13/20 06:14 Baclofen (Lioresal) 10 mg THREE TIMES A DAY GT 08/08/20 09:00 09/07/20 08:59 08/09/20 12:17 Chlorhexidine Gluconate (Christy-Hex 2%) 1 applic DAILY@1999 TOPIC 08/08/20 20:00 11/06/20 19:59 08/08/20 20:19 Famotidine (Pepcid) 20 mg DAILY GT 08/08/20 09:00 11/06/20 08:59 08/09/20 08:21 Folic Acid (Folate) 1 mg DAILY GT 08/08/20 09:00 09/07/20 08:59 08/09/20 08:22 Heparin Sodium (Porcine) (Heparin 5000 units/ml) 5,000 units EVERY 12 HOURS SUBQ 08/08/20 21:00 09/22/20 20:59 08/09/20 08:22 Hydroxyurea (Hydrea) 500 mg DAILY ORAL 08/08/20 09:00 08/13/20 08:59 08/09/20 08:22 Levetiracetam (Keppra) 1,000 mg Q12HR GT 08/08/20 09:00 09/07/20 08:59 08/09/20 08:22 Lorazepam (Ativan 2mg/ml 1ml) 1 mg Q6H PRN IV For Anxiety 08/08/20 23:15 08/15/20 23:14 08/08/20 23:44 Meropenem 500 mg/ Sodium Chloride 55 ml @ 110 mls/hr EVERY 8 HOURS IVPB 08/09/20 12:00 08/14/20 11:59 08/09/20 12:17 Morphine Sulfate (Morphine Sulfate) 2 mg Q4H PRN IVP For Pain 08/08/20 06:15 08/15/20 06:14 08/08/20 20:20 Multivitamins (Multivitamins) 1 tab DAILY GT 08/08/20 09:00 09/07/20 08:59 08/09/20 08:22 Sodium Chloride 1,000 ml @ 100 mls/hr Q10H IV 08/08/20 07:00 09/07/20 06:59 08/09/20 12:17 Vancomycin HCl (Vanco pharmacy to dose) 1 ea DAILY PRN MISC Per rx protocol 08/08/20 06:15 09/07/20 06:14 Vancomycin HCl 1 gm/Dextrose 275 ml @ 183.708 mls/hr Q12HR IVPB 08/08/20 09:00 08/13/20 08:59 08/09/20 08:23 Assessment/Plan Problem List: (1) Pneumonia ICD Codes: J18.9 - Pneumonia, unspecified organism SNOMED: 584933148 Qualifiers: Qualified Codes: J18.9 - Pneumonia, unspecified organism (2) Sickle cell anemia ICD Codes: D57.1 - Sickle-cell disease without crisis SNOMED: 470690804 Qualifiers: Qualified Codes: D57.00 - Hb-SS disease with crisis, unspecified (3) Tachycardia ICD Codes: R00.0 - Tachycardia, unspecified SNOMED: 7629145 (4) Severe sepsis ICD Codes: A41.9 - Sepsis, unspecified organism; R65.20 - Severe sepsis without septic shock SNOMED: 42528540 (5) Sickle cell crisis ICD Codes: D57.00 - Hb-SS disease with crisis, unspecified SNOMED: 049662571 (6) Sepsis Assessment & Plan: 35-year-old male sickle cell multiple comorbidities history of craniotomy trach feeding tube prior port infected removed see prior admission and consult and operative notes. Currently presents with significant leukocytosis fevers hypotension in intensive care unit wound site evaluated unlikely etiology. Trach evaluated may consider changing. LFTs noted elevated. Ultrasound ordered pending results trend labs continue IV antibiotics appreciate infectious disease input will follow with recommendations thank you for let me participate in patient's care pulmonary arteries: Evaluation for pulmonary embolus is limited due to breathing motion artifact. No central pulmonary emboli are identified. Aorta: No acute findings. No thoracic aortic aneurysm. Lungs: There are moderately consolidating infiltrates identified in both lower lobes dependently with mild additional patchy infiltrates dependently in both upper lobes. The findings are consistent with bilateral nonspecific pneumonia. Aspiration pneumonia could give this appearance. The infiltrates are only somewhat typical of Covid 19. Confidence is immediate. Pleural space: Unremarkable. No significant effusion. No pneumothorax. Heart: Unremarkable. No cardiomegaly. No significant pericardial effusion. No evidence of RV dysfunction. Bones/joints: No acute fracture. No dislocation. Soft tissues: Unremarkable. Lymph nodes: Unremarkable. No enlarged lymph nodes. Tubes, lines and devices: There is a tracheostomy tube in good position. IMPRESSION: 1. There are moderately consolidating infiltrates identified in both lower lobes dependently with mild additional patchy infiltrates dependently in both upper lobes. The findings are consistent with bilateral nonspecific pneumonia. Aspiration pneumonia could give this appearance. The infiltrates are only somewhat typical of Covid 19. Confidence is immediate. 2. Evaluation for pulmonary embolus is limited due to breathing motion artifact. No central pulmonary emboli are identified. ICD Codes: A41.9 - Sepsis, unspecified organism SNOMED: 50874100 (7) Port-A-Cath in place Assessment & Plan: prior removal for infection site okay dressings changed no active infection from wound ICD Codes: Z95.828 - Presence of other vascular implants and grafts SNOMED: 186820600 [facility] Hospital declaration INPATIENT level of care is warranted for this patient because patient is a 89 year old with who presents with suspicion of . I have a high level of concern because . Patient is at high risk for . Plan of care/treatment include . Patient care is expected to be greater than 2 midnights. OBSERVATION level of care is warranted for this patient. Patient is a 89 year old with who presents with . Patient will be admitted for 1 midnight, but if additional night(s) is/are necessary, patient will be converted to inpatient status for the entire hospitalization Disposition: Once the patient is stable to leave the hospital, I anticipate the patient will likely be discharged to the following environment: Estimated discharge date: I spent 70 minutes on this patient's case, and minutes was dedicated to counseling and/or care coordination. MIPS ([employer]it-based Incentive Payment System) Applicable CPT: 89303, 54501 CHECK ALL THAT ARE MET: Measure #5 (CHF): All ages. Prescribe MARTINEZ/ARB upon discharge for patients with left ventricular systolic dysfunction. If not, the reason is clearly documented in the medical chart. Measure #8 (CHF): All ages. Prescribe a beta karina upon discharge for patients with left ventricular systolic dysfunction. If not, the reason is clearly documented in the medical chart. Measure #47 Advance care plan or surrogate decision maker documented in the medical record. Measure #130 The provider has documented, updated, or reviewed the patients current medication list and has documented it in the patients note. Measure #374 (All): Send report to referring provider. Measure #407(Sepsis due to MSSA bacteremia): Age 18+ Patient treated with a beta-lactam antibiotic (Nafcillin, Oxacillin or Cefazolin) as definitive therapy. MEDICAL COMPLEXITY High complexity medical decision making (need 2/3 categories) Problem - need 4 points Acute/new problem with new plan for workup (4 points, 1 max) Acute/new problem without additional workup (3 points, 1 max) Unstable chronic problem actively being managed (2 point each, 2 max) Stable chronic problem actively being managed (1 point each, 2 max) Self-limited/transient process (constipation, muscle ache, etc) (1 point each , 2 max) Data - need 4 points Reviewed labs/imaging studies (1 points, 2 max) Independent review of imaging (EKG, xrays, etc) (2 points, 2 max) Discussed case with consult/other MD/RN (2 points, 2 max) High Risk - qualify if have one of the following: Severe exacerbation of acute problem, acute mental status change, IV narcotics , monitoring drug levels (vancomycin, INR, tacrolimus etc) Harman Zhao Aug 09, 2020 15:24
--- NOTE | 2020-08-09 15:41 | General Progress Note ---
Assessment/Plan Problem List: (1) Pneumonia ICD Codes: J18.9 - Pneumonia, unspecified organism SNOMED: 689436795 Qualifiers: Qualified Codes: J18.9 - Pneumonia, unspecified organism (2) Sickle cell anemia ICD Codes: D57.1 - Sickle-cell disease without crisis SNOMED: 444967506 Qualifiers: Qualified Codes: D57.00 - Hb-SS disease with crisis, unspecified (3) Severe sepsis ICD Codes: A41.9 - Sepsis, unspecified organism; R65.20 - Severe sepsis without septic shock SNOMED: [id number] Status: not improved Assessment/Plan: cont current rx vent support iv abx follow up culttures monitor cxr keep dry repeat covid. critical and guarded Subjective ROS Limited/Unobtainable: No Constitutional: Reports: malaise, weakness HEENT: Reports: no symptoms Cardiovascular: Reports: no symptoms Respiratory: Reports: cough Gastrointestinal/Abdominal: Reports: difficulty swallowing Genitourinary: Reports: no symptoms Neurologic/Psychiatric: Reports: pre-existing deficit, seizure Endocrine: Reports: no symptoms Hematologic/Lymphatic: Reports: anemia Allergies: Coded Allergies: ADHESIVE TAPE (Verified Allergy, Unknown, 07/20/20) Uncoded Allergies: TAPE (Allergy, Unknown, 08/07/20) All Systems: reviewed and negative except above Subjective difficulty ventilating. on 40% fio2. cxr worsening. poorly responsive. +blood cultures- Objective Last 24 Hour Vital Signs Date Time Temp Pulse Resp B/P (MAP) Pulse Ox O2 Delivery O2 Flow Rate FiO2 08/09/20 14:29 95 18 40 08/09/20 13:00 3 18 96/58 (71) 100 08/09/20 12:00 Mechanical Ventilator Mechanical Ventilator 08/09/20 12:00 98.5 97 18 97/61 (73) 100 08/09/20 12:00 97 18 97/61 (73) 100 08/09/20 12:00 99 08/09/20 11:00 104 15 101/61 (74) 100 08/09/20 10:55 104 18 40 08/09/20 10:00 104 18 106/72 (83) 100 08/09/20 09:00 40 08/09/20 09:00 111 18 96/55 (69) 100 08/09/20 09:00 Mechanical Ventilator Mechanical Ventilator 08/09/20 08:30 113 18 99/55 (70) 100 08/09/20 08:00 104 08/09/20 08:00 40 08/09/20 08:00 99.0 111 24 102/61 (75) 100 08/09/20 08:00 Mechanical Ventilator Mechanical Ventilator 08/09/20 07:52 109 24 40 08/09/20 07:00 100 24 95/54 (68) 100 08/09/20 06:30 105 14 91/58 (69) 100 08/09/20 06:00 113 19 100/51 (67) 100 08/09/20 05:30 117 21 105/66 (79) 100 08/09/20 05:00 116 23 106/67 (80) 100 08/09/20 04:30 124 27 111/74 (86) 100 08/09/20 04:00 35 08/09/20 04:00 Mechanical Ventilator Mechanical Ventilator 08/09/20 04:00 97.5 130 26 114/68 (83) 100 08/09/20 03:30 133 26 109/73 (85) 100 08/09/20 03:15 136 08/09/20 03:00 140 22 100/61 (74) 100 08/09/20 03:00 129 24 35 08/09/20 02:30 134 18 104/68 (80) 100 08/09/20 02:08 141 23 111/75 (87) 100 08/09/20 02:00 141 23 108/66 (80) 100 08/09/20 01:41 148 27 199/164 (176) 100 08/09/20 01:30 150 27 196/163 (174) 100 08/09/20 01:09 155 29 154/128 (137) 100 08/09/20 01:00 156 30 208/149 (168) 100 08/09/20 00:14 159 39 162/126 100 08/09/20 00:00 Mechanical Ventilator Mechanical Ventilator 08/09/20 00:00 101.6 165 42 162/126 (138) 100 08/09/20 00:00 35 08/08/20 23:57 165 08/08/20 23:44 166 40 162/94 94 08/08/20 23:00 152 25 151/85 (107) 99 08/08/20 22:00 141 25 151/100 (117) 98 08/08/20 21:00 132 20 152/73 (99) 100 08/08/20 21:00 129 28 35 08/08/20 20:00 102.1 124 17 118/64 (82) 96 08/08/20 20:00 Mechanical Ventilator Mechanical Ventilator 08/08/20 20:00 35 08/08/20 19:43 125 08/08/20 19:00 128 16 112/58 (76) 93 08/08/20 19:00 127 15 35 08/08/20 18:08 99.5 08/08/20 18:00 128 16 115/61 (79) 100 08/08/20 17:00 123 17 128/81 (97) 100 08/08/20 16:37 119 08/08/20 16:00 117 24 116/77 (90) 99 08/08/20 16:00 35 08/08/20 16:00 Mechanical Ventilator 08/08/20 16:00 99.2 117 24 116/77 (90) 99 Intake and Output 08/08/20 08/09/20 19:00 07:00 Intake Total 2038.125 ml 1900.833 ml Output Total 1350 ml 1325 ml Balance 688.125 ml 575.833 ml Intake Oral 0 ml Free Water 150 ml 60 ml IV Total 1668.125 ml 1690.833 ml Tube Feeding 220 ml 150 ml Output Urine Total 1350 ml 1325 ml # Bowel Movements 1 3 Laboratory Tests 08/09/20 00:47: Arterial Blood pH 7.446, Arterial Blood Partial Pressure CO2 36.0, Arterial Blood Partial Pressure O2 82.0, Arterial Blood HCO3 24.0, Arterial Blood Oxygen Saturation 95.1, Arterial Blood Base Excess 0.9, Iglesia Test Positive 08/09/20 03:50: White Blood Count 55.0#*H, Red Blood Count 2.58L, Hemoglobin 8.1L, Hematocrit 25.0L, Mean Corpuscular Volume 97, Mean Corpuscular Hemoglobin 31.4H, Mean Corpuscular Hemoglobin Concent 32.3, Red Cell Distribution Width 17.9H, Platelet Count 269, Mean Platelet Volume 10.2H, Neutrophils (%) (Auto) , Lymphocytes (%) (Auto) , Monocytes (%) (Auto) , Eosinophils (%) (Auto) , Basophils (%) (Auto) , Differential Total Cells Counted 100, Neutrophils % ( Manual) 82H, Lymphocytes % (Manual) 5L, Monocytes % (Manual) 11H, Eosinophils % (Manual) 0, Basophils % (Manual) 2, Band Neutrophils 0, Nucleated Red Blood Cells 2, Platelet Estimate Adequate, Platelet Morphology Normal, Anisocytosis 1+ , Sodium Level 149H, Potassium Level 3.1L, Chloride Level 113H, Carbon Dioxide Level 27, Anion Gap 9, Blood Urea Nitrogen 13, Creatinine 0.8, Estimat Glomerular Filtration Rate > 60, Glucose Level 88, Calcium Level 9.4, Total Bilirubin 2.1H, Direct Bilirubin 1.4H, Aspartate Amino Transf (AST/SGOT) 58H, Alanine Aminotransferase (ALT/SGPT) 70, Alkaline Phosphatase 490H, Total Protein 8.2, Albumin 2.6L, Globulin 5.6, Albumin/Globulin Ratio 0.5L 08/09/20 07:53: Arterial Blood pH 7.587*H, Arterial Blood Partial Pressure CO2 24.5*L, Arterial Blood Partial Pressure O2 68.2L, Arterial Blood HCO3 22.8, Arterial Blood Oxygen Saturation 95.9, Arterial Blood Base Excess 1.5, Iglesia Test Positive Height (Feet): 5 Height (Inches): 10.00 Weight (Pounds): 112 General Appearance: WD/WN, lethargic EENT: normal ENT inspection Neck: normal alignment Cardiovascular: normal peripheral pulses, normal rate Respiratory/Chest: chest wall non-tender, lungs clear, normal breath sounds Abdomen: normal bowel sounds, non tender, soft, no organomegaly Edema: no edema noted Arm (L), no edema noted Arm (R) Neurologic: unresponsive Lalo Celaya MD Aug 09, 2020 15:41
--- NOTE | 2020-08-09 16:02 | NUR ---
NURSE NOTES: Still on AC 18, PC 45 and FiO2 40%. No distress noted. Kept dry, clean and comfortable.
--- NOTE | 2020-08-09 17:08 | NUR ---
NURSE NOTES:WOUND CARE NOTES:Pt presented on admission with clusters of small hyperpigmentation Sacrum. Skin tone is darker without erythema or induration Sacrum. Both heels are firm and blanchable. Skin Assessed under tracheal collar and no evidence of skin breakdown noted. Lips noted to be dry and crusted but pt declined oral care. Staff reports pt can also be resistive to care and to being repositioned. Tx Plan: Apply Moisture Barrier Paste to Sacrum. Cover with Optifoam drsg. Change every 3 days and prn. Apply Cavilon Skin Barrier to R and L trochanteric. Cover each site with Optifoam drsgs. Change every 7 days and prn. Apply Cavilon Skin Barrier to both heels and malleoli. Cover each site with Optifoam drsgs. Change every 7 days and prn. Reposition at least every 2hours or as tolerated. Off-load heels with pillow.
--- NOTE | 2020-08-09 17:47 | Critical Care Progress Note ---
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 Port-A-Cath Status post removal of implanted right chest wall Port-A-Cath Sickle cell crisis Sickle cell anemia Chronic respiratory failure, ventilator dependent, with tracheostomy status Transaminitis Seizure disorder acute pneumonia leukocytosis recurrent sepsis PLAN care noted IV antibiotics respiratory care Ventilatory support- pressure control; adjusted rate SNF meds supportive care suction no wean planned oxygen therapy prognosis guarded ID follow up and recommendations medications/laboratory data/nursing notes/ICU care reviewed in detail note reviewed and edited care discussed with RN and RT ICU time spent >40 minutes Critical Care - Subjective Interval Events: had difficult night elevated PIP now improved with pressure control in ICU wbc elevated ROS Limited/Unobtainable: Yes Condition: critical EKG Rhythm: Sinus Tachycardia I&O: Intake and Output 08/08/20 08/09/20 19:00 07:00 Intake Total 2038.125 ml 1900.833 ml Output Total 1350 ml 1325 ml Balance 688.125 ml 575.833 ml Intake Oral 0 ml Free Water 150 ml 60 ml IV Total 1668.125 ml 1690.833 ml Tube Feeding 220 ml 150 ml Output Urine Total 1350 ml 1325 ml # Bowel Movements 1 3 Critical Care - Objective Last 24 Hour Vital Signs Date Time Temp Pulse Resp B/P (MAP) Pulse Ox O2 Delivery O2 Flow Rate FiO2 08/09/20 17:00 115 19 93/69 (77) 94 08/09/20 16:00 116 08/09/20 16:00 99.2 114 18 102/61 (75) 99 08/09/20 16:00 40 08/09/20 16:00 Mechanical Ventilator Mechanical Ventilator 08/09/20 15:00 102 18 97/59 (72) 94 08/09/20 14:29 95 18 40 08/09/20 14:00 83 17 104/69 (81) 100 08/09/20 13:00 3 18 96/58 (71) 100 08/09/20 12:00 Mechanical Ventilator Mechanical Ventilator 08/09/20 12:00 98.5 97 18 97/61 (73) 100 08/09/20 12:00 40 08/09/20 12:00 97 18 97/61 (73) 100 08/09/20 12:00 99 08/09/20 11:00 104 15 101/61 (74) 100 08/09/20 10:55 104 18 40 08/09/20 10:00 104 18 106/72 (83) 100 08/09/20 09:00 40 08/09/20 09:00 111 18 96/55 (69) 100 08/09/20 09:00 Mechanical Ventilator Mechanical Ventilator 08/09/20 08:30 113 18 99/55 (70) 100 08/09/20 08:00 104 08/09/20 08:00 40 08/09/20 08:00 99.0 111 24 102/61 (75) 100 08/09/20 08:00 Mechanical Ventilator Mechanical Ventilator 08/09/20 07:52 109 24 40 08/09/20 07:00 100 24 95/54 (68) 100 08/09/20 06:30 105 14 91/58 (69) 100 08/09/20 06:00 113 19 100/51 (67) 100 08/09/20 05:30 117 21 105/66 (79) 100 08/09/20 05:00 116 23 106/67 (80) 100 08/09/20 04:30 124 27 111/74 (86) 100 08/09/20 04:00 35 08/09/20 04:00 Mechanical Ventilator Mechanical Ventilator 08/09/20 04:00 97.5 130 26 114/68 (83) 100 08/09/20 03:30 133 26 109/73 (85) 100 08/09/20 03:15 136 08/09/20 03:00 140 22 100/61 (74) 100 08/09/20 03:00 129 24 35 08/09/20 02:30 134 18 104/68 (80) 100 08/09/20 02:08 141 23 111/75 (87) 100 08/09/20 02:00 141 23 108/66 (80) 100 08/09/20 01:41 148 27 199/164 (176) 100 08/09/20 01:30 150 27 196/163 (174) 100 08/09/20 01:09 155 29 154/128 (137) 100 08/09/20 01:00 156 30 208/149 (168) 100 08/09/20 00:14 159 39 162/126 100 08/09/20 00:00 Mechanical Ventilator Mechanical Ventilator 08/09/20 00:00 101.6 165 42 162/126 (138) 100 08/09/20 00:00 35 08/08/20 23:57 165 08/08/20 23:44 166 40 162/94 94 08/08/20 23:00 152 25 151/85 (107) 99 08/08/20 22:00 141 25 151/100 (117) 98 08/08/20 21:00 132 20 152/73 (99) 100 08/08/20 21:00 129 28 35 08/08/20 20:00 102.1 124 17 118/64 (82) 96 08/08/20 20:00 Mechanical Ventilator Mechanical Ventilator 08/08/20 20:00 35 08/08/20 19:43 125 08/08/20 19:00 128 16 112/58 (76) 93 08/08/20 19:00 127 15 35 08/08/20 18:08 99.5 08/08/20 18:00 128 16 115/61 (79) 100 Labs: Labs Test 08/07/20 19:00 08/07/20 19:20 08/07/20 22:20 08/07/20 22:34 White Blood Count 31.5 K/UL (4.8-10.8) Red Blood Count 2.91 M/UL (4.70-6.10) Hemoglobin 9.3 G/DL (14.2-18.0) Hematocrit 29.1 % (42.0-52.0) Mean Corpuscular Volume 100 FL (80-99) Mean Corpuscular Hemoglobin 31.9 PG (27.0-31.0) Mean Corpuscular Hemoglobin Concent 31.9 G/DL (32.0-36.0) Red Cell Distribution Width 18.6 % (11.6-14.8) Platelet Count 230 K/UL (150-450) Mean Platelet Volume 10.7 FL (6.5-10.1) Neutrophils (%) (Auto) % (45.0-75.0) Lymphocytes (%) (Auto) % (20.0-45.0) Monocytes (%) (Auto) % (1.0-10.0) Eosinophils (%) (Auto) % (0.0-3.0) Basophils (%) (Auto) % (0.0-2.0) Differential Total Cells Counted 100 Neutrophils % (Manual) 87 % (45-75) Lymphocytes % (Manual) 6 % (20-45) Monocytes % (Manual) 3 % (1-10) Eosinophils % (Manual) 0 % (0-3) Basophils % (Manual) 1 % (0-2) Band Neutrophils 3 % (0-8) Platelet Estimate Adequate Platelet Morphology Normal Hypochromasia 1+ Anisocytosis 2+ Macrocytosis 1+ Prothrombin Time 11.8 SEC (9.30-11.50) Prothromb Time International Ratio 1.1 (0.9-1.1) Activated Partial Thromboplast Time 37 SEC (23-33) Sodium Level 139 MMOL/L (136-145) Potassium Level 5.6 MMOL/L (3.5-5.1) Chloride Level 101 MMOL/L (98-107) Carbon Dioxide Level 31 MMOL/L (21-32) Anion Gap 7 mmol/L (5-15) Blood Urea Nitrogen 34 mg/dL (7-18) Creatinine 1.1 MG/DL (0.55-1.30) Estimat Glomerular Filtration Rate > 60 mL/min (>60) Glucose Level 95 MG/DL (74-106) Lactic Acid Level 1.20 mmol/L (0.4-2.0) 1.20 mmol/L (0.4-2.0) Calcium Level 10.0 MG/DL (8.5-10.1) Magnesium Level 2.1 MG/DL (1.8-2.4) Total Bilirubin 1.4 MG/DL (0.2-1.0) Direct Bilirubin 0.8 MG/DL (0.0-0.3) Aspartate Amino Transf (AST/SGOT) 74 U/L (15-37) Alanine Aminotransferase (ALT/SGPT) 94 U/L (12-78) Alkaline Phosphatase 569 U/L (46-116) Total Creatine Kinase 9 U/L (26-308) Troponin I 0.000 ng/mL (0.000-0.056) Pro-B-Type Natriuretic Peptide 401 pg/mL (0-125) Total Protein 9.4 G/DL (6.4-8.2) Albumin 3.2 G/DL (3.4-5.0) Globulin 6.2 g/dL Albumin/Globulin Ratio 0.5 (1.0-2.7) Lipase 240 U/L (73-393) Urine Color Yellow Urine Appearance Slightly cloudy Urine pH 5 (4.5-8.0) Urine Specific [place] 1.005 (1.005-1.035) Urine Protein 2+ (NEGATIVE) Urine Glucose (UA) Negative (NEGATIVE) Urine Ketones Negative (NEGATIVE) Urine Blood 1+ (NEGATIVE) Urine Nitrite Negative (NEGATIVE) Urine Bilirubin Negative (NEGATIVE) Urine Urobilinogen Normal MG/DL (0.0-1.0) Urine Leukocyte Esterase 1+ (NEGATIVE) Urine RBC 2-4 /HPF (0 - 0) Urine WBC 5-10 /HPF (0 - 0) Urine Squamous Epithelial Cells Moderate /LPF (NONE/OCC) Urine Bacteria Few /HPF (NONE) Venous Blood pH 7.351 Venous Blood Partial Pressure CO2 48 Venous Blood Partial Pressure O2 36.8 Venous Blood HCO3 26 Venous Blood Total Carbon Dioxide 48 Venous Blood Base Excess 0.1 Venous Blood Carboxyhemoglobin 1.1 % (0.5-1.5) Methemoglobin 1.2 Test 08/09/20 00:47 08/09/20 03:50 08/09/20 07:53 Arterial Blood pH 7.446 (7.350-7.450) 7.587 (7.350-7.450) Arterial Blood Partial Pressure CO2 36.0 mmHg (35.0-45.0) 24.5 mmHg (35.0-45.0) Arterial Blood Partial Pressure O2 82.0 mmHg (75.0-100.0) 68.2 mmHg (75.0-100.0) Arterial Blood HCO3 24.0 mmol/L (22.0-26.0) 22.8 mmol/L (22.0-26.0) Arterial Blood Oxygen Saturation 95.1 % (95-100) 95.9 % (95-100) Arterial Blood Base Excess 0.9 (-2-2) 1.5 (-2-2) Iglesia Test Positive Positive White Blood Count 55.0 K/UL (4.8-10.8) Red Blood Count 2.58 M/UL (4.70-6.10) Hemoglobin 8.1 G/DL (14.2-18.0) Hematocrit 25.0 % (42.0-52.0) Mean Corpuscular Volume 97 FL (80-99) Mean Corpuscular Hemoglobin 31.4 PG (27.0-31.0) Mean Corpuscular Hemoglobin Concent 32.3 G/DL (32.0-36.0) Red Cell Distribution Width 17.9 % (11.6-14.8) Platelet Count 269 K/UL (150-450) Mean Platelet Volume 10.2 FL (6.5-10.1) Neutrophils (%) (Auto) % (45.0-75.0) Lymphocytes (%) (Auto) % (20.0-45.0) Monocytes (%) (Auto) % (1.0-10.0) Eosinophils (%) (Auto) % (0.0-3.0) Basophils (%) (Auto) % (0.0-2.0) Differential Total Cells Counted 100 Neutrophils % (Manual) 82 % (45-75) Lymphocytes % (Manual) 5 % (20-45) Monocytes % (Manual) 11 % (1-10) Eosinophils % (Manual) 0 % (0-3) Basophils % (Manual) 2 % (0-2) Band Neutrophils 0 % (0-8) Nucleated Red Blood Cells 2 /100 WBC Platelet Estimate Adequate Platelet Morphology Normal Anisocytosis 1+ Sodium Level 149 MMOL/L (136-145) Potassium Level 3.1 MMOL/L (3.5-5.1) Chloride Level 113 MMOL/L (98-107) Carbon Dioxide Level 27 MMOL/L (21-32) Anion Gap 9 mmol/L (5-15) Blood Urea Nitrogen 13 mg/dL (7-18) Creatinine 0.8 MG/DL (0.55-1.30) Estimat Glomerular Filtration Rate > 60 mL/min (>60) Glucose Level 88 MG/DL (74-106) Calcium Level 9.4 MG/DL (8.5-10.1) Total Bilirubin 2.1 MG/DL (0.2-1.0) Direct Bilirubin 1.4 MG/DL (0.0-0.3) Aspartate Amino Transf (AST/SGOT) 58 U/L (15-37) Alanine Aminotransferase (ALT/SGPT) 70 U/L (12-78) Alkaline Phosphatase 490 U/L (46-116) Total Protein 8.2 G/DL (6.4-8.2) Albumin 2.6 G/DL (3.4-5.0) Globulin 5.6 g/dL Albumin/Globulin Ratio 0.5 (1.0-2.7) Objective: WDWN NAD reduced breath sounds bilaterally without rhonchi or wheeze [id number] tachy without MRG NABS nontender GT no CCE poorly responsive Micro: Microbiology Date/Time Source Procedure Growth Status 08/07/20 19:15 Blood Blood Culture - Preliminary Gram Positive Cocci Resulted 08/07/20 19:00 Blood Blood Culture - Preliminary Resulted 08/07/20 19:30 Nasal Nares MRSA Culture - Final Staphylococcus Aureus - Mrsa Complete 08/07/20 18:43 Nasopharynx SARS-CoV-2 RdRp Gene Assay - Final Complete James Nuñez MD Aug 09, 2020 17:47
[2020-08-09] MEDS: Morphine Sulfate 2mg/ml Inj(IV/IM USE ONLY) IVP PRN ×2 (18:09→21:52)
--- NOTE | 2020-08-09 18:09 | NUR ---
NURSE NOTES: Patient is in pain 6/10 at this time. Morphine given before giving bath. Provided calm environment and repositioned patient.
--- NOTE | 2020-08-09 18:26 | NUR ---
NURSE NOTES: Bed bath given. Patient was able to tolerate well.
--- NOTE | 2020-08-09 18:58 | NUR ---
HAND-OFF: Report given to ARLYN Liu. Endorsed plan of care.
--- NOTE | 2020-08-09 19:00 | NUR ---
NURSE NOTES: Received patient and report from ARLYN Austin. Patient is observed resting in bed and noted to be alert and oriented x3-4. Pt is able to follow commands and make needs known. No pain noted upon assessment. Pt is currently trach to vent; Vent settings as follows: AC 18 PC 45 FiO2 40% PEEP 5 with an O2 saturation of 100% noted at this time. Bilateral lower lobe breath sounds noted to be diminished upon auscultation and rhonchi noted in bilateral upper and lower lobes. Pt noted to be ST on tele monitor with a HR of 104 with no s/sx of acute cardiac distress noted. R Femoral TLC noted which remains asymptomatic, intact and patent. Central line dressing remains clean ,dry and intact. R FA 22g IV catheter noted which remains asymptomatic, intact and patent. NS currently infusing as prescribed. G tube noted which remains intact and patent. Glucerna 1.5 currently infusing at 40mL/hr; no residual noted. Hyperactive bowel sounds noted in all four quadrants, abdomen remains flat, soft and nontender. Diagnostics reviewed at bedside. Skin alterations noted. Pt repositioned for comfort and safety. Fall, Aspiration, Seizure and Skin precautions observed. Pt remains resting in bed; Bed remains in the lowest position with the safety wheels engaged, call light within reach, side rails up x3 and bed alarm activated. Will continue plan of care. Will continue to monitor.
--- NOTE | 2020-08-09 20:00 | NUR ---
NURSE NOTES: Vanco scanned on accident but not hung at this time; pending vanco trough. Will await results then call pharmacy to correctly enter administration time of Vanco.
[2020-08-09] MEDS: Dyna-Hex 2% Top Sol 2oz TOPIC SCH (20:02)
--- NOTE | 2020-08-09 21:00 | NUR ---
NURSE NOTES: Bedside assessment performed, assessed pt for pain in which he currently denies at this time. Pt remains on cooling mat for fever. Pt noted to be visibly more relaxed after visit with family and with cell phone at bedside. Updated belongings list. Pts mother present on unit and visiting through door window due to isolation precautions. Pts mother brought rx from home and stated she was asked to by Dr Celaya since our pharmacy does not carry his sickle cell medications on formulary. Asked Roberta from pharmacy to send up medication bags for home meds, also confirmed Vanco trough within range. After confirmation reconstituted medication as prescribed and administered medication as ordered. Pt remains clean and dry. Pt repositioned for safety and comfort. Fall, Aspiration, Seizure and Skin precautions observed. Pt remains resting in bed; Bed remains in the lowest position with the safety wheels engaged, call light within reach, side rails up x3 and bed alarm activated. Will continue plan of care. Will continue to monitor.
--- NOTE | 2020-08-09 21:30 | NUR ---
NURSE NOTES: Medications left by family member: Ferriprox 500mg Deferasirox 360mg
--- NOTE | 2020-08-09 23:00 | NUR ---
NURSE NOTES: Pt provided with a CHG bed bath, oral care and linen change. ROM exercises performed per pt tolerance. Pt tolerated care well. Bedside assessment performed, assessed pt with a FLACC scale of 0 noted. Pt observed to be resting comfortably. VS obtained and remain stable at this time. Elevated temperature noted and cooling measures continued. PRN Morphine previously administered for severe pain with no adverse effect noted. Fall, Aspiration, Seizure and Skin precautions observed. Pt remains resting in bed; Bed remains in the lowest position with the safety wheels engaged, call light within reach, side rails up x3 and bed alarm activated. Will continue plan of care. Will continue to monitor.
[2020-08-10] VITALS (21 sets, daily range): BP systolic 99–122; BP diastolic 53–82
--- NOTE | 2020-08-10 01:00 | NUR ---
NURSE NOTES: Bedside assessment performed, assessed pt for pain using FLACC scale with a score of 0 noted. Pt observed to be sleeping and remains calm and cooperative. Pt easily arousable and remains oriented x3-4. Pt remains on cooling mat for fever, noted to be effective in assisting pt with maintaining consistent temperature. Pt remains clean and dry. Pt repositioned for safety and comfort. Fall, Aspiration, Seizure and Skin precautions observed. Pt remains resting in bed; Bed remains in the lowest position with the safety wheels engaged, call light within reach, side rails up x3 and bed alarm activated. Will continue plan of care. Will continue to monitor.
--- NOTE | 2020-08-10 03:00 | NUR ---
NURSE NOTES: Bedside assessment performed, assessed pt for pain in which he currently denies at this time. Pt remains on cooling mat for fever. Pt remains calm and compliant with plan of care. VS obtained and remain stable at this time. Pt remains clean and dry. Pt repositioned for safety and comfort. Neurological assessment remains consistent with previous physical assessment and no s/sx of seizures noted for duration of shift. Fall, Aspiration, Seizure and Skin precautions observed. Pt remains resting in bed; Bed remains in the lowest position with the safety wheels engaged, call light within reach, side rails up x3 and bed alarm activated. Will continue plan of care. Will continue to monitor.
[2020-08-10] MEDS: Morphine Sulfate 2mg/ml Inj(IV/IM USE ONLY) IVP PRN ×3 (04:13→21:17)
--- NOTE | 2020-08-10 05:00 | NUR ---
NURSE NOTES: Bedside assessment performed, assessed pt for pain in which he currently denies at this time. Pt remains on cooling mat for fever. Pt remains calm and compliant with plan of care. VS obtained and remain stable at this time. Pt remains clean and dry. Pt repositioned for safety and comfort. Neurological assessment remains consistent with previous physical assessment and no s/sx of seizures noted for duration of shift. Pt requests PRN Morphine for pain rated 7/10 utilizing FLACC scale. No adverse effects noted from prior PRN medication administration. Fall, Aspiration, Seizure and Skin precautions observed. Pt remains resting in bed; Bed remains in the lowest position with the safety wheels engaged, call light within reach, side rails up x3 and bed alarm activated. Will continue plan of care. Will continue to monitor.
[2020-08-10 05:25] LABS: HEMATOCRIT 22.8 % (42.0-52.0); HEMOGLOBIN 7.3 G/DL (14.2-18.0); MEAN CORPUSCULAR VOLUME 96 FL (80-99); PLATELET COUNT 245 K/UL (150-450); RED BLOOD COUNT 2.37 M/UL (4.70-6.10); RED CELL DISTRIBUTION WIDTH 16.8 % (11.6-14.8)
[2020-08-10] MEDS: Meropenem 500 MG in NS 55 ML IVPB SCH (05:27)
[2020-08-10 05:28] LABS: INR 1.2 (0.9-1.1)
[2020-08-10 05:38] LABS: WHITE BLOOD COUNT 50.1 K/UL (4.8-10.8)
[2020-08-10 05:50] LABS: ALANINE AMINOTRANSFERASE 47 U/L (12-78); ALBUMIN 2.3 G/DL (3.4-5.0); ALBUMIN/GLOBULIN RATIO 0.4 (1.0-2.7); ALKALINE PHOSPHATASE 448 U/L (46-116); AMYLASE 36 U/L (25-115); ANION GAP 8 mmol/L (5-15); ASPARTATE AMINO TRANSFERASE 43 U/L (15-37); BILIRUBIN,TOTAL 1.5 MG/DL (0.2-1.0); BLOOD UREA NITROGEN 11 mg/dL (7-18); CARBON DIOXIDE 26 MMOL/L (21-32); CHLORIDE 116 MMOL/L (98-107); CREATININE 0.7 MG/DL (0.55-1.30); SODIUM 150 MMOL/L (136-145)
[2020-08-10 05:53] LABS: POTASSIUM 2.7 MMOL/L (3.5-5.1)
[2020-08-10 05:55] LABS: BILIRUBIN,DIRECT 0.8 MG/DL (0.0-0.3)
--- NOTE | 2020-08-10 06:50 | NUR ---
NURSE NOTES: Left message regarding abnormal lab values. Will await a call back and continue to monitor.
--- NOTE | 2020-08-10 07:14 | NUR ---
NURSE NOTES: Received patient from Noe STODDARD. Patient is awake, alert and oriented x3. Sinus Rhythm on the heart monitor, HR 91. Receiving oxygen via Portex 6, vent settings: AC 18, PC 45, FiO2 40%. G-tube is intact and receiving Glucerna 1.5 at 45cc/hr. IV site is Right Forearm 22g intact and patent, Right Femoral TLC is intact and receiving NS at 100cc/hr. Bed is locked, placed in lowest position, side rails up x3, bed alarm on, head of bed elevated, call light within reach. Will continue to monitor.
--- NOTE | 2020-08-10 07:14 | NUR ---
NURSE HAND-OFF REPORT: Latest Vital Signs: Temperature 98.2 , Pulse 97 , B/P 100 /55 , Respiratory Rate 18 , O2 SAT 97 , Mechanical Ventilator, O2 Flow Rate . Vital Sign Comment: VS remain stable for duration of shift EKG Rhythm: Sinus Rhythm Rhythm change?: N MD Notified?: N Response: N/A Latest Stevens Fall Score: 50 Fall Risk: High Risk Safety Measures: Call light Within Reach, Bed Alarm Zone 3, Side Rails Side Rails x3, Bed position Low and Locked. Fall Precautions: Yellow Socks Door Sign Patient Fall Education Report given to ARLYN Howard. Endorsed plan of care. Awaiting call back regarding abnormal AM labs.
--- NOTE | 2020-08-10 08:00 | NUR ---
RESPIRATORY NOTE: Attempted to do ABG per MD's order. Explained to pt how we gonna do ABG and the reason why we need to draw ABG for. Pt refused to have ABG done. RT Jozef tried to explain and convince the pt to agree but pt still said no and want to be left alone. RN Ignacio is aware. Will try again later.
--- NOTE | 2020-08-10 08:04 | Critical Care Progress Note ---
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 Port-A-Cath Status post removal of implanted right chest wall Port-A-Cath Sickle cell crisis Sickle cell anemia Chronic respiratory failure, ventilator dependent, with tracheostomy status Transaminitis Seizure disorder acute pneumonia leukocytosis recurrent sepsis PLAN care noted IV antibiotics noted respiratory care Ventilatory support- pressure control; adjusted rate and await ABG SNF meds supportive care suction no wean planned oxygen therapy and titrate prognosis guarded ID follow up and recommendations medications/laboratory data/nursing notes/ICU care reviewed in detail note reviewed and edited care discussed with RN and RT ICU time spent >40 minutes Critical Care - Subjective ROS Limited/Unobtainable: Yes Condition: critical EKG Rhythm: Sinus Tachycardia Residuals: minimal Tube Feeding Tolerated: yes I&O: Intake and Output 08/09/20 08/10/20 19:00 07:00 Intake Total 2017 ml 2053.330 ml Output Total 1170 ml 1135 ml Balance 847 ml 918.330 ml Free Water 90 ml 90 ml IV Total 1527 ml 1483.330 ml Tube Feeding 400 ml 480 ml Output Urine Total 995 ml 1135 ml Stool Total 175 ml # Bowel Movements 100 Critical Care - Objective Last 24 Hour Vital Signs Date Time Temp Pulse Resp B/P (MAP) Pulse Ox O2 Delivery O2 Flow Rate FiO2 08/10/20 07:00 91 18 107/62 (77) 100 08/10/20 06:00 97 18 100/55 (70) 97 08/10/20 05:00 81 18 105/62 (76) 100 08/10/20 04:00 98.2 107 19 122/76 (91) 100 08/10/20 04:00 40 08/10/20 04:00 Mechanical Ventilator Mechanical Ventilator 08/10/20 03:30 101 18 40 08/10/20 03:17 110 08/10/20 03:00 106 18 113/75 (88) 98 08/10/20 02:00 88 18 99/67 (78) 98 08/10/20 01:00 94 18 100/61 (74) 100 08/10/20 00:00 Mechanical Ventilator Mechanical Ventilator 08/10/20 00:00 98.8 102 18 110/82 (91) 100 08/10/20 00:00 40 08/09/20 23:51 101 08/09/20 23:11 110 18 40 08/09/20 23:00 108 18 119/74 (89) 100 08/09/20 22:00 113 18 116/63 (80) 100 08/09/20 21:00 107 18 113/79 (90) 100 08/09/20 20:00 Mechanical Ventilator Mechanical Ventilator 08/09/20 20:00 40 08/09/20 20:00 101.5 108 18 108/69 (82) 99 08/09/20 19:38 108 21 40 08/09/20 19:20 106 08/09/20 19:00 100 18 107/72 (84) 100 08/09/20 18:00 111 20 117/71 (86) 100 08/09/20 17:00 115 19 93/69 (77) 94 08/09/20 16:00 116 08/09/20 16:00 99.2 114 18 102/61 (75) 99 08/09/20 16:00 40 08/09/20 16:00 Mechanical Ventilator Mechanical Ventilator 08/09/20 15:00 102 18 97/59 (72) 94 08/09/20 14:29 95 18 40 08/09/20 14:00 83 17 104/69 (81) 100 08/09/20 13:00 3 18 96/58 (71) 100 08/09/20 12:00 Mechanical Ventilator Mechanical Ventilator 08/09/20 12:00 98.5 97 18 97/61 (73) 100 08/09/20 12:00 40 08/09/20 12:00 97 18 97/61 (73) 100 08/09/20 12:00 99 08/09/20 11:00 104 15 101/61 (74) 100 08/09/20 10:55 104 18 40 08/09/20 10:00 104 18 106/72 (83) 100 08/09/20 09:00 40 08/09/20 09:00 111 18 96/55 (69) 100 08/09/20 09:00 Mechanical Ventilator Mechanical Ventilator 08/09/20 08:30 113 18 99/55 (70) 100 Objective: WDWN NAD reduced breath sounds bilaterally without rhonchi or wheeze [id number] without MRG NABS nontender GT no CCE poorly responsive Micro: Microbiology Date/Time Source Procedure Growth Status 08/07/20 19:15 Blood Blood Culture - Preliminary Gram Positive Cocci Resulted 08/07/20 19:00 Blood Blood Culture - Preliminary Resulted 08/09/20 11:28 Sputum Gram Stain - Final Resulted 08/09/20 11:28 Sputum Sputum Culture Pending Resulted 08/07/20 19:30 Nasal Nares MRSA Culture - Final Staphylococcus Aureus - Mrsa Complete 08/07/20 18:43 Nasopharynx SARS-CoV-2 RdRp Gene Assay - Final Complete 08/07/20 19:30 Rectum - Final NO CARBAPENEM-RESISTANT ENTEROBACTERI... Complete 08/07/20 19:30 Rectum VRE Culture - Final Enterococcus Faecium - Vre Complete James Nuñze MD Aug 10, 2020 08:04
[2020-08-10] MEDS: Hydroxyurea 500mg cap ORAL SCH (08:35)
[2020-08-10] MEDS: Heparin 5000 units/ml inj SUBQ SCH ×2 (08:36→20:55)
--- NOTE | 2020-08-10 09:05 | NUR ---
NURSE NOTES: Medications given as prescribed, turned patient and changed bottom ursula. Patient refused oral care and suctioning, also refused ABG to be drawn by RT. Explained patient necessities for ABG but patient still refused.
[2020-08-10] MEDS: Vancomycin 1gm in D5W 275ml IVPB SCH (09:42)
--- NOTE | 2020-08-10 10:02 | NUR ---
NURSE NOTES: Patient desaturated to 83%. Tracheal suctioning done and thick guerrero secretions removed. O2 saturation returned to 100% after suctioning.
--- NOTE | 2020-08-10 10:02 | Infectious Diseases Prog Note ---
Assessment/Plan Assessment/Plan A: 1. Gram-positive sepsis. 2. Aspiration pneumonia. COVID19 X 1: negative. 3. Leukemoid reaction. 4. Sickle cell disease. 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 VDRF PLAN: 1. Continue IV vancomycin & Meropenem. 2. We will follow up cultures and adjust antibiotics accordingly Subjective ROS Limited/Unobtainable: Yes Constitutional: Reports: fever, other - Su=137.5 last night Allergies: Coded Allergies: ADHESIVE TAPE (Verified Allergy, Unknown, 07/20/20) Uncoded Allergies: TAPE (Allergy, Unknown, 08/07/20) Objective Last 24 Hour Vital Signs Date Time Temp Pulse Resp B/P (MAP) Pulse Ox O2 Delivery O2 Flow Rate FiO2 08/10/20 09:00 101 18 104/53 (70) 98 08/10/20 08:00 40 08/10/20 08:00 98.9 89 18 100/65 (77) 99 08/10/20 08:00 Mechanical Ventilator Mechanical Ventilator 08/10/20 08:00 87 08/10/20 07:00 91 18 107/62 (77) 100 08/10/20 07:00 90 18 40 08/10/20 06:00 97 18 100/55 (70) 97 08/10/20 05:00 81 18 105/62 (76) 100 08/10/20 04:00 98.2 107 19 122/76 (91) 100 08/10/20 04:00 40 08/10/20 04:00 Mechanical Ventilator Mechanical Ventilator 08/10/20 03:30 101 18 40 08/10/20 03:17 110 08/10/20 03:00 106 18 113/75 (88) 98 08/10/20 02:00 88 18 99/67 (78) 98 08/10/20 01:00 94 18 100/61 (74) 100 08/10/20 00:00 Mechanical Ventilator Mechanical Ventilator 08/10/20 00:00 98.8 102 18 110/82 (91) 100 08/10/20 00:00 40 08/09/20 23:51 101 08/09/20 23:11 110 18 40 08/09/20 23:00 108 18 119/74 (89) 100 08/09/20 22:00 113 18 116/63 (80) 100 08/09/20 21:00 107 18 113/79 (90) 100 08/09/20 20:00 Mechanical Ventilator Mechanical Ventilator 08/09/20 20:00 40 08/09/20 20:00 101.5 108 18 108/69 (82) 99 08/09/20 19:38 108 21 40 08/09/20 19:20 106 08/09/20 19:00 100 18 107/72 (84) 100 08/09/20 18:00 111 20 117/71 (86) 100 08/09/20 17:00 115 19 93/69 (77) 94 08/09/20 16:00 116 08/09/20 16:00 99.2 114 18 102/61 (75) 99 08/09/20 16:00 40 08/09/20 16:00 Mechanical Ventilator Mechanical Ventilator 08/09/20 15:00 102 18 97/59 (72) 94 08/09/20 14:29 95 18 40 08/09/20 14:00 83 17 104/69 (81) 100 08/09/20 13:00 3 18 96/58 (71) 100 08/09/20 12:00 Mechanical Ventilator Mechanical Ventilator 08/09/20 12:00 98.5 97 18 97/61 (73) 100 08/09/20 12:00 40 08/09/20 12:00 97 18 97/61 (73) 100 08/09/20 12:00 99 08/09/20 11:00 104 15 101/61 (74) 100 08/09/20 10:55 104 18 40 08/09/20 10:00 104 18 106/72 (83) 100 Height (Feet): 5 Height (Inches): 10.00 Weight (Pounds): 112 HEENT: status post trach, other - R craniotomy Respiratory/Chest: other - on ventilator Cardiovascular: tachycardia Abdomen: soft, non tender, other - GT feeding Extremities: no edema Neurologic/Psychiatric: alert, responsive Microbiology Date/Time Source Procedure Growth Status 08/07/20 19:15 Blood Blood Culture - Preliminary Gram Positive Cocci Resulted 08/07/20 19:00 Blood Blood Culture - Preliminary Resulted 08/09/20 11:28 Sputum Gram Stain - Final Resulted 08/09/20 11:28 Sputum Sputum Culture Pending Resulted 08/07/20 19:30 Nasal Nares MRSA Culture - Final Staphylococcus Aureus - Mrsa Complete 08/07/20 18:43 Nasopharynx SARS-CoV-2 RdRp Gene Assay - Final Complete 08/07/20 19:30 Rectum - Final NO CARBAPENEM-RESISTANT ENTEROBACTERI... Complete 08/07/20 19:30 Rectum VRE Culture - Final Enterococcus Faecium - Vre Complete Laboratory Tests Test 08/09/20 20:00 08/10/20 04:00 Vancomycin Level Trough 15.6 ug/mL (5.0-12.0) H White Blood Count 50.1 K/UL (4.8-10.8) *H Red Blood Count 2.37 M/UL (4.70-6.10) L Hemoglobin 7.3 G/DL (14.2-18.0) L Hematocrit 22.8 % (42.0-52.0) L Mean Corpuscular Volume 96 FL (80-99) Mean Corpuscular Hemoglobin 30.9 PG (27.0-31.0) Mean Corpuscular Hemoglobin Concent 32.2 G/DL (32.0-36.0) Red Cell Distribution Width 16.8 % (11.6-14.8) H Platelet Count 245 K/UL (150-450) Mean Platelet Volume 10.1 FL (6.5-10.1) Neutrophils (%) (Auto) % (45.0-75.0) Lymphocytes (%) (Auto) % (20.0-45.0) Monocytes (%) (Auto) % (1.0-10.0) Eosinophils (%) (Auto) % (0.0-3.0) Basophils (%) (Auto) % (0.0-2.0) Differential Total Cells Counted 100 Neutrophils % (Manual) 77 % (45-75) H Lymphocytes % (Manual) 6 % (20-45) L Monocytes % (Manual) 11 % (1-10) H Eosinophils % (Manual) 2 % (0-3) Basophils % (Manual) 0 % (0-2) Band Neutrophils 4 % (0-8) Platelet Estimate Adequate Platelet Morphology Normal Polychromasia 1+ Hypochromasia 1+ Anisocytosis 1+ Erythrocyte Sedimentation Rate 125 MM/HR (0-15) H Prothrombin Time 13.3 SEC (9.30-11.50) H Prothromb Time International Ratio 1.2 (0.9-1.1) H Activated Partial Thromboplast Time 41 SEC (23-33) H Sodium Level 150 MMOL/L (136-145) H Potassium Level 2.7 MMOL/L (3.5-5.1) *L Chloride Level 116 MMOL/L (98-107) H Carbon Dioxide Level 26 MMOL/L (21-32) Anion Gap 8 mmol/L (5-15) Blood Urea Nitrogen 11 mg/dL (7-18) Creatinine 0.7 MG/DL (0.55-1.30) Estimat Glomerular Filtration Rate > 60 mL/min (>60) Glucose Level 84 MG/DL (74-106) Lactic Acid Level 0.80 mmol/L (0.4-2.0) Calcium Level 9.0 MG/DL (8.5-10.1) Total Bilirubin 1.5 MG/DL (0.2-1.0) H Direct Bilirubin 0.8 MG/DL (0.0-0.3) H Aspartate Amino Transf (AST/SGOT) 43 U/L (15-37) H Alanine Aminotransferase (ALT/SGPT) 47 U/L (12-78) Alkaline Phosphatase 448 U/L (46-116) H C-Reactive Protein, Quantitative 44.0 mg/dL (0.00-0.90) H Total Protein 7.5 G/DL (6.4-8.2) Albumin 2.3 G/DL (3.4-5.0) L Globulin 5.2 g/dL Albumin/Globulin Ratio 0.4 (1.0-2.7) L Amylase Level 36 U/L (25-115) Lipase 85 U/L (73-393) Current Medications Medications (Trade) Dose Ordered Sig/Piedad Route PRN Reason Start Time Stop Time Status Last Admin Dose Admin Acetaminophen (Tylenol) 650 mg Q6H PRN GT Temp >100.5 08/08/20 07:45 09/07/20 07:44 08/08/20 17:38 Albuterol Sulfate (Proventil) 2.5 mg Q4H PRN HHN Shortness of Breath 08/08/20 06:15 08/13/20 06:14 Baclofen (Lioresal) 10 mg THREE TIMES A DAY GT 08/08/20 09:00 09/07/20 08:59 08/10/20 08:35 Chlorhexidine Gluconate (Christy-Hex 2%) 1 applic DAILY@2000 TOPIC 08/08/20 20:00 11/06/20 19:59 08/09/20 20:02 Famotidine (Pepcid) 20 mg DAILY GT 08/08/20 09:00 11/06/20 08:59 08/10/20 08:35 Folic Acid (Folate) 1 mg DAILY GT 08/08/20 09:00 09/07/20 08:59 08/10/20 08:35 Heparin Sodium (Porcine) (Heparin 5000 units/ml) 5,000 units EVERY 12 HOURS SUBQ 08/08/20 21:00 09/22/20 20:59 08/10/20 08:36 Hydroxyurea (Hydrea) 500 mg DAILY ORAL 08/08/20 09:00 08/13/20 08:59 08/10/20 08:35 Levetiracetam (Keppra) 1,000 mg Q12HR GT 08/08/20 09:00 09/07/20 08:59 08/10/20 08:35 Lorazepam (Ativan 2mg/ml 1ml) 1 mg Q6H PRN IV For Anxiety 08/08/20 23:15 08/15/20 23:14 08/08/20 23:44 Meropenem 1 gm/ Sodium Chloride 55 ml @ 110 mls/hr Q8HR IVPB 08/10/20 14:00 08/15/20 13:59 Morphine Sulfate (Morphine Sulfate) 2 mg Q4H PRN IVP For Pain 08/08/20 06:15 08/15/20 06:14 08/10/20 04:13 Multivitamins (Multivitamins) 1 tab DAILY GT 08/08/20 09:00 09/07/20 08:59 08/10/20 08:35 Sodium Chloride 1,000 ml @ 100 mls/hr Q10H IV 08/08/20 07:00 09/07/20 06:59 08/10/20 08:35 Vancomycin HCl (Vanco pharmacy to dose) 1 ea DAILY PRN MISC Per rx protocol 08/08/20 06:15 09/07/20 06:14 Vancomycin HCl 1 gm/Dextrose 275 ml @ 183.708 mls/hr Q12HR IVPB 08/08/20 09:00 08/13/20 08:59 08/10/20 09:42 Wyatt Kemp MD Aug 10, 2020 10:02
--- NOTE | 2020-08-10 10:26 | NUR ---
NURSE NOTES: Reported Potassium level to Dr. Celaya. Orders received for replacement.
--- NOTE | 2020-08-10 10:47 | NUR ---
RADIOLOGY DEPT., CHEST X-RAY DONE.-P.DYE
--- NOTE | 2020-08-10 10:50 | Surgery Progress Note ---
Surgery Progress Note Subjective Additional Comments alert awake responsive wound healing trach okay comfortable labs noted wbc Objective Last 24 Hour Vital Signs Date Time Temp Pulse Resp B/P (MAP) Pulse Ox O2 Delivery O2 Flow Rate FiO2 08/10/20 10:00 77 18 113/64 (80) 100 08/10/20 09:00 101 18 104/53 (70) 98 08/10/20 08:00 40 08/10/20 08:00 98.9 89 18 100/65 (77) 99 08/10/20 08:00 Mechanical Ventilator Mechanical Ventilator 08/10/20 08:00 87 08/10/20 07:00 91 18 107/62 (77) 100 08/10/20 07:00 90 18 40 08/10/20 06:00 97 18 100/55 (70) 97 08/10/20 05:00 81 18 105/62 (76) 100 08/10/20 04:00 98.2 107 19 122/76 (91) 100 08/10/20 04:00 40 08/10/20 04:00 Mechanical Ventilator Mechanical Ventilator 08/10/20 03:30 101 18 40 08/10/20 03:17 110 08/10/20 03:00 106 18 113/75 (88) 98 08/10/20 02:00 88 18 99/67 (78) 98 08/10/20 01:00 94 18 100/61 (74) 100 08/10/20 00:00 Mechanical Ventilator Mechanical Ventilator 08/10/20 00:00 98.8 102 18 110/82 (91) 100 08/10/20 00:00 40 08/09/20 23:51 101 08/09/20 23:11 110 18 40 08/09/20 23:00 108 18 119/74 (89) 100 08/09/20 22:00 113 18 116/63 (80) 100 08/09/20 21:00 107 18 113/79 (90) 100 08/09/20 20:00 Mechanical Ventilator Mechanical Ventilator 08/09/20 20:00 40 08/09/20 20:00 101.5 108 18 108/69 (82) 99 08/09/20 19:38 108 21 40 08/09/20 19:20 106 08/09/20 19:00 100 18 107/72 (84) 100 08/09/20 18:00 111 20 117/71 (86) 100 08/09/20 17:00 115 19 93/69 (77) 94 08/09/20 16:00 116 08/09/20 16:00 99.2 114 18 102/61 (75) 99 08/09/20 16:00 40 08/09/20 16:00 Mechanical Ventilator Mechanical Ventilator 08/09/20 15:00 102 18 97/59 (72) 94 08/09/20 14:29 95 18 40 08/09/20 14:00 83 17 104/69 (81) 100 08/09/20 13:00 3 18 96/58 (71) 100 08/09/20 12:00 Mechanical Ventilator Mechanical Ventilator 08/09/20 12:00 98.5 97 18 97/61 (73) 100 08/09/20 12:00 40 08/09/20 12:00 97 18 97/61 (73) 100 08/09/20 12:00 99 08/09/20 11:00 104 15 101/61 (74) 100 08/09/20 10:55 104 18 40 I&O Intake and Output 08/09/20 08/10/20 19:00 07:00 Intake Total 2017 ml 2053.330 ml Output Total 1170 ml 1135 ml Balance 847 ml 918.330 ml Free Water 90 ml 90 ml IV Total 1527 ml 1483.330 ml Tube Feeding 400 ml 480 ml Output Urine Total 995 ml 1135 ml Stool Total 175 ml # Bowel Movements 100 Dressing: other Wound: clean, dry, other Cardiovascular: RSR Respiratory: decreased breath sounds Abdomen: soft, non-tender, present bowel sounds Extremities: no edema, no tenderness, no cyanosis Laboratory Tests Test 08/09/20 20:00 08/10/20 04:00 Vancomycin Level Trough 15.6 ug/mL (5.0-12.0) H White Blood Count 50.1 K/UL (4.8-10.8) *H Red Blood Count 2.37 M/UL (4.70-6.10) L Hemoglobin 7.3 G/DL (14.2-18.0) L Hematocrit 22.8 % (42.0-52.0) L Mean Corpuscular Volume 96 FL (80-99) Mean Corpuscular Hemoglobin 30.9 PG (27.0-31.0) Mean Corpuscular Hemoglobin Concent 32.2 G/DL (32.0-36.0) Red Cell Distribution Width 16.8 % (11.6-14.8) H Platelet Count 245 K/UL (150-450) Mean Platelet Volume 10.1 FL (6.5-10.1) Neutrophils (%) (Auto) % (45.0-75.0) Lymphocytes (%) (Auto) % (20.0-45.0) Monocytes (%) (Auto) % (1.0-10.0) Eosinophils (%) (Auto) % (0.0-3.0) Basophils (%) (Auto) % (0.0-2.0) Differential Total Cells Counted 100 Neutrophils % (Manual) 77 % (45-75) H Lymphocytes % (Manual) 6 % (20-45) L Monocytes % (Manual) 11 % (1-10) H Eosinophils % (Manual) 2 % (0-3) Basophils % (Manual) 0 % (0-2) Band Neutrophils 4 % (0-8) Platelet Estimate Adequate Platelet Morphology Normal Polychromasia 1+ Hypochromasia 1+ Anisocytosis 1+ Erythrocyte Sedimentation Rate 125 MM/HR (0-15) H Prothrombin Time 13.3 SEC (9.30-11.50) H Prothromb Time International Ratio 1.2 (0.9-1.1) H Activated Partial Thromboplast Time 41 SEC (23-33) H Sodium Level 150 MMOL/L (136-145) H Potassium Level 2.7 MMOL/L (3.5-5.1) *L Chloride Level 116 MMOL/L (98-107) H Carbon Dioxide Level 26 MMOL/L (21-32) Anion Gap 8 mmol/L (5-15) Blood Urea Nitrogen 11 mg/dL (7-18) Creatinine 0.7 MG/DL (0.55-1.30) Estimat Glomerular Filtration Rate > 60 mL/min (>60) Glucose Level 84 MG/DL (74-106) Lactic Acid Level 0.80 mmol/L (0.4-2.0) Calcium Level 9.0 MG/DL (8.5-10.1) Total Bilirubin 1.5 MG/DL (0.2-1.0) H Direct Bilirubin 0.8 MG/DL (0.0-0.3) H Aspartate Amino Transf (AST/SGOT) 43 U/L (15-37) H Alanine Aminotransferase (ALT/SGPT) 47 U/L (12-78) Alkaline Phosphatase 448 U/L (46-116) H C-Reactive Protein, Quantitative 44.0 mg/dL (0.00-0.90) H Total Protein 7.5 G/DL (6.4-8.2) Albumin 2.3 G/DL (3.4-5.0) L Globulin 5.2 g/dL Albumin/Globulin Ratio 0.4 (1.0-2.7) L Amylase Level 36 U/L (25-115) Lipase 85 U/L (73-393) Plan Problems: (1) Pneumonia (2) Sickle cell anemia (3) Tachycardia (4) Severe sepsis (5) Sickle cell crisis (6) Sepsis Assessment & Plan: 35-year-old male sickle cell multiple comorbidities history of craniotomy trach feeding tube prior port infected removed see prior admission and consult and operative notes. Currently presents with significant leukocytosis fevers hypotension in intensive care unit wound site evaluated unlikely etiology. Trach evaluated may consider changing. LFTs noted elevated. Ultrasound ordered pending results trend labs continue IV antibiotics appreciate infectious disease input will follow with recommendations thank you for let me participate in patient's care pulmonary arteries: Evaluation for pulmonary embolus is limited due to breathing motion artifact. No central pulmonary emboli are identified. Aorta: No acute findings. No thoracic aortic aneurysm. Lungs: There are moderately consolidating infiltrates identified in both lower lobes dependently with mild additional patchy infiltrates dependently in both upper lobes. The findings are consistent with bilateral nonspecific pneumonia. Aspiration pneumonia could give this appearance. The infiltrates are only somewhat typical of Covid 19. Confidence is immediate. Pleural space: Unremarkable. No significant effusion. No pneumothorax. Heart: Unremarkable. No cardiomegaly. No significant pericardial effusion. No evidence of RV dysfunction. Bones/joints: No acute fracture. No dislocation. Soft tissues: Unremarkable. Lymph nodes: Unremarkable. No enlarged lymph nodes. Tubes, lines and devices: There is a tracheostomy tube in good position. IMPRESSION: 1. There are moderately consolidating infiltrates identified in both lower lobes dependently with mild additional patchy infiltrates dependently in both upper lobes. The findings are consistent with bilateral nonspecific pneumonia. Aspiration pneumonia could give this appearance. The infiltrates are only somewhat typical of Covid 19. Confidence is immediate. 2. Evaluation for pulmonary embolus is limited due to breathing motion artifact. No central pulmonary emboli are identified. (7) Port-A-Cath in place Assessment & Plan: prior removal for infection site okay dressings changed no active infection from wound Harman Zhao Aug 10, 2020 10:50
--- NOTE | 2020-08-10 11:43 | Diagnostic Imaging Report ---
Indication: Shortness of breath Technique: One view of the chest Comparison: 08/09/2020 Findings: Right-sided pleural effusion and interstitial infiltrates or edema are unchanged. Parenchymal disease on the left has improved considerably, now largely cleared. Tracheostomy remains. Impression: Improved left lung parenchymal disease. Likely improving edema Persistent right pleural effusion and interstitial and airspace edema
--- NOTE | 2020-08-10 13:54 | NUR ---
NURSE NOTES: Patient complained of pain in the legs rated 10/10. Prescribed Morphine given via IV. Will continue to monitor.
[2020-08-10] MEDS ORDERED: Meropenem 1gm in NS 55ml IVPB SCH (14:00)
--- NOTE | 2020-08-10 15:05 | NUR ---
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 98.8 HR 106 RR 18 B/P 100/64 AC 14 TV 671 FIO2 45% PEEP 5 WBC 50.1 H/H 7.3/22.0 NA 150 K 2.7 IS: IVF NS @ 100ML/HR MEROPENEM IV VANCO IV PROVENTIL INLINE TX ICU STATUS
[2020-08-10] MEDS ORDERED: D5 1/2NS 1,000 ML IV SCH (15:06)
--- NOTE | 2020-08-10 15:08 | NUR ---
LEATHER CRAFTSMAN NOTES CLINICALS REVIEWED AND FAXED
--- NOTE | 2020-08-10 15:10 | General Progress Note ---
Assessment/Plan Problem List: (1) Pneumonia ICD Codes: J18.9 - Pneumonia, unspecified organism SNOMED: 823122888 Qualifiers: Qualified Codes: J18.9 - Pneumonia, unspecified organism (2) Sickle cell anemia ICD Codes: D57.1 - Sickle-cell disease without crisis SNOMED: 664047634 Qualifiers: Qualified Codes: D57.00 - Hb-SS disease with crisis, unspecified (3) Severe sepsis ICD Codes: A41.9 - Sepsis, unspecified organism; R65.20 - Severe sepsis without septic shock SNOMED: 52074281 Status: stable, not improved Assessment/Plan: cont current rx vent support iv abx cultures reviewed monitor cxr keep dry repeat covid. ivf adjusted monitor labs critical and guarded Subjective ROS Limited/Unobtainable: No Constitutional: Reports: malaise, weakness HEENT: Reports: no symptoms Cardiovascular: Reports: no symptoms Respiratory: Reports: cough, shortness of breath, sputum Gastrointestinal/Abdominal: Reports: difficulty swallowing Genitourinary: Reports: no symptoms Neurologic/Psychiatric: Reports: pre-existing deficit, seizure Endocrine: Reports: no symptoms Hematologic/Lymphatic: Reports: anemia Allergies: Coded Allergies: ADHESIVE TAPE (Verified Allergy, Unknown, 07/20/20) Uncoded Allergies: TAPE (Allergy, Unknown, 08/07/20) All Systems: reviewed and negative except above Subjective more alert. stable on the vent. saturating well on 40%. + blood cultures noted. no fevers. elevated wbc. tolerating feeds. elevated. na Objective Last 24 Hour Vital Signs Date Time Temp Pulse Resp B/P (MAP) Pulse Ox O2 Delivery O2 Flow Rate FiO2 08/10/20 14:00 79 18 107/66 (80) 100 08/10/20 13:00 106 18 110/64 (79) 100 08/10/20 12:00 98.8 72 18 108/69 (82) 100 08/10/20 12:00 96 08/10/20 12:00 40 08/10/20 12:00 Mechanical Ventilator Mechanical Ventilator 08/10/20 11:00 91 18 106/67 (80) 100 08/10/20 10:52 75 18 40 08/10/20 10:00 77 18 113/64 (80) 100 08/10/20 09:00 101 18 104/53 (70) 98 08/10/20 08:00 40 08/10/20 08:00 98.9 89 18 100/65 (77) 99 08/10/20 08:00 Mechanical Ventilator Mechanical Ventilator 08/10/20 08:00 87 08/10/20 07:00 91 18 107/62 (77) 100 08/10/20 07:00 90 18 40 08/10/20 06:00 97 18 100/55 (70) 97 08/10/20 05:00 81 18 105/62 (76) 100 08/10/20 04:00 98.2 107 19 122/76 (91) 100 08/10/20 04:00 40 08/10/20 04:00 Mechanical Ventilator Mechanical Ventilator 08/10/20 03:30 101 18 40 08/10/20 03:17 110 08/10/20 03:00 106 18 113/75 (88) 98 08/10/20 02:00 88 18 99/67 (78) 98 08/10/20 01:00 94 18 100/61 (74) 100 08/10/20 00:00 Mechanical Ventilator Mechanical Ventilator 08/10/20 00:00 98.8 102 18 110/82 (91) 100 08/10/20 00:00 40 08/09/20 23:51 101 08/09/20 23:11 110 18 40 08/09/20 23:00 108 18 119/74 (89) 100 08/09/20 22:00 113 18 116/63 (80) 100 08/09/20 21:00 107 18 113/79 (90) 100 08/09/20 20:00 Mechanical Ventilator Mechanical Ventilator 08/09/20 20:00 40 08/09/20 20:00 101.5 108 18 108/69 (82) 99 08/09/20 19:38 108 21 40 08/09/20 19:20 106 08/09/20 19:00 100 18 107/72 (84) 100 08/09/20 18:00 111 20 117/71 (86) 100 08/09/20 17:00 115 19 93/69 (77) 94 08/09/20 16:00 116 08/09/20 16:00 99.2 114 18 102/61 (75) 99 08/09/20 16:00 40 08/09/20 16:00 Mechanical Ventilator Mechanical Ventilator Intake and Output 08/09/20 08/10/20 19:00 07:00 Intake Total 2017 ml 2053.330 ml Output Total 1170 ml 1135 ml Balance 847 ml 918.330 ml Free Water 90 ml 90 ml IV Total 1527 ml 1483.330 ml Tube Feeding 400 ml 480 ml Output Urine Total 995 ml 1135 ml Stool Total 175 ml # Bowel Movements 100 Laboratory Tests 08/09/20 20:00: Vancomycin Level Trough 15.6H 08/10/20 04:00: White Blood Count 50.1*H, Red Blood Count 2.37L, Hemoglobin 7.3L, Hematocrit 22.8L, Mean Corpuscular Volume 96, Mean Corpuscular Hemoglobin 30.9, Mean Corpuscular Hemoglobin Concent 32.2, Red Cell Distribution Width 16.8H, Platelet Count 245, Mean Platelet Volume 10.1, Neutrophils (%) (Auto) , Lymphocytes (%) (Auto) , Monocytes (%) (Auto) , Eosinophils (%) (Auto) , Basophils (%) (Auto) , Differential Total Cells Counted 100, Neutrophils % ( Manual) 77H, Lymphocytes % (Manual) 6L, Monocytes % (Manual) 11H, Eosinophils % (Manual) 2, Basophils % (Manual) 0, Band Neutrophils 4, Platelet Estimate Adequate, Platelet Morphology Normal, Polychromasia 1+, Hypochromasia 1+, Anisocytosis 1+, Erythrocyte Sedimentation Rate 125H, Prothrombin Time 13.3H, Prothromb Time International Ratio 1.2H, Activated Partial Thromboplast Time 41H , Sodium Level 150H, Potassium Level 2.7*L, Chloride Level 116H, Carbon Dioxide Level 26, Anion Gap 8, Blood Urea Nitrogen 11, Creatinine 0.7, Estimat Glomerular Filtration Rate > 60, Glucose Level 84, Lactic Acid Level 0.80, Calcium Level 9.0, Total Bilirubin 1.5H, Direct Bilirubin 0.8H, Aspartate Amino Transf (AST/SGOT) 43H, Alanine Aminotransferase (ALT/SGPT) 47, Alkaline Phosphatase 448H, C-Reactive Protein, Quantitative 44.0H, Total Protein 7.5, Albumin 2.3L, Globulin 5.2, Albumin/Globulin Ratio 0.4L, Amylase Level 36, Lipase 85 Height (Feet): 5 Height (Inches): 10.00 Weight (Pounds): 112 Objective General Appearance: WD/WN, lethargic EENT: normal ENT inspection Neck: normal alignment Cardiovascular: normal peripheral pulses, normal rate Respiratory/Chest: chest wall non-tender, lungs clear, normal breath sounds Abdomen: normal bowel sounds, non tender, soft, no organomegaly Edema: no edema noted Arm (L), no edema noted Arm (R) Neurologic: unresponsive Lalo Celaya MD Aug 10, 2020 15:10
[2020-08-10] MEDS ORDERED: Tubing IV Secondary IV ONE ×2 (17:13)
[2020-08-10] MEDS ORDERED: NS 275ml ONE (17:13)
--- NOTE | 2020-08-10 18:02 | NUR ---
NURSE NOTES: Patient refused bed bath, but patient was repositioned and when asked if he was comfortable, he agreed.
--- NOTE | 2020-08-10 19:08 | NUR ---
NURSE HAND-OFF REPORT: Latest Vital Signs: Temperature 97.7 , Pulse 87 , B/P 110 /73 , Respiratory Rate 18 , O2 SAT 100 , Mechanical Ventilator, O2 Flow Rate . Vital Sign Comment: EKG Rhythm: Sinus Rhythm Rhythm change?: N Notified?: N -Dr Regan JIMENEZ Response: Latest Stevens Fall Score: 50 Fall Risk: High Risk Safety Measures: Call light Within Reach, Bed Alarm Zone 3, Side Rails Side Rails x3, Bed position Low and Locked. Fall Precautions: Yellow Socks Door Sign Patient Fall Education Report given to Rosibel STODDARD.
--- NOTE | 2020-08-10 20:00 | NUR ---
NURSE HAND-OFF REPORT: Important Events on Shift: Patient Status: Diet: Pending Orders: Pending Results/Labs: Pending MD notification: Latest Vital Signs: Temperature 97.7 , Pulse 97 , B/P 105 /65 , Respiratory Rate 18 , O2 SAT 100 , Mechanical Ventilator, O2 Flow Rate . Vital Sign Comment: EKG Rhythm: Sinus Rhythm Rhythm change?: N Notified?: N -Dr Regan JIMENEZ Response: Latest Stevens Fall Score: 50 Fall Risk: High Risk Safety Measures: Call light Within Reach, Bed Alarm Zone 3, Side Rails Side Rails x3, Bed position Low and Locked. Fall Precautions: Yellow Socks Door Sign Patient Fall Education Report given to .ren blackwell using sbar
--- NOTE | 2020-08-10 20:10 | NUR ---
NURSE NOTES: Report received from ARLYN Nj. Observed pt lying in the bed, awake, non-compliant. Pt refused to assess skin in the back, refused to take picture of wound. 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 Trach to vent, AC 18, pressure support 15, FIO2 40%, PEEP 5, tolerating well, suctioned and noted white, yellow thick sputum. GT intact, running Glucerna at 40cc/hr. F/C intact and draining well. Rectal tube intact and draining well. IV on L FA 22G, intact, but unable to flush per pt refused. R femoral TLC, one lumen clogged, 1 running 1/2NS at 75cc/hr. Bed in the lowest position. Side rails up x3. Will continue to monitor.
[2020-08-10] MEDS ORDERED: Albuterol ud Inhalation HHN PRN (20:20)
[2020-08-10] MEDS ORDERED: LORazepam Inj 2mg/ml 1ml IV PRN (20:21)
[2020-08-10] MEDS: Vancomycin 1 GM in D5W 275 ML IVPB SCH (20:54)
[2020-08-10] MEDS: D5 1/2NS 1,000 ML IV SCH (20:54)
[2020-08-10] MEDS: Meropenem 1 GM in NS 55 ML IVPB SCH (22:46)
[2020-08-11] VITALS: BP 116/72
--- NOTE | 2020-08-11 01:14 | NUR ---
NURSE NOTES: Pt sleeping in the bed. No acute distress noted at this time. Bed bath given. Reposition done. Oral care given. Will continue to monitor.
--- NOTE | 2020-08-11 03:00 | NUR ---
NURSE NOTES: Bed bath given. Picture taken and uploaded. Pt non-compliant, keeps trying to stop RN and says, "Get out." No acute distress noted at this time. Tolerating current vent setting. Will continue to monitor.
[2020-08-11] MEDS: Morphine Sulfate 2mg/ml Inj(IV/IM USE ONLY) IVP PRN ×2 (03:18→15:37)
[2020-08-11 04:00] VITALS: BP 113/58
[2020-08-11 05:05] LABS: HEMATOCRIT 18.9 % (42.0-52.0); MEAN CORPUSCULAR VOLUME 96 FL (80-99); PLATELET COUNT 231 K/UL (150-450); RED BLOOD COUNT 1.96 M/UL (4.70-6.10)
[2020-08-11] MEDS: Meropenem 1 GM in NS 55 ML IVPB SCH ×3 (05:28→21:03)
[2020-08-11] MEDS: D5 1/2NS 1,000 ML IV SCH ×2 (05:37→19:59)
[2020-08-11 06:01] LABS: ALANINE AMINOTRANSFERASE 38 U/L (12-78); ALBUMIN 1.9 G/DL (3.4-5.0); ALBUMIN/GLOBULIN RATIO 0.4 (1.0-2.7); ALKALINE PHOSPHATASE 408 U/L (46-116); ANION GAP 11 mmol/L (5-15); ASPARTATE AMINO TRANSFERASE 33 U/L (15-37); BILIRUBIN,TOTAL 1.2 MG/DL (0.2-1.0); BLOOD UREA NITROGEN 9 mg/dL (7-18); CALCIUM 8.7 MG/DL (8.5-10.1); CARBON DIOXIDE 22 MMOL/L (21-32); CHLORIDE 111 MMOL/L (98-107); CREATININE 0.7 MG/DL (0.55-1.30); POTASSIUM 2.9 MMOL/L (3.5-5.1); SODIUM 144 MMOL/L (136-145)
[2020-08-11 06:03] LABS: WHITE BLOOD COUNT 35.4 K/UL (4.8-10.8)
[2020-08-11 06:04] LABS: HEMOGLOBIN 6.2 G/DL (14.2-18.0)
--- NOTE | 2020-08-11 07:00 | NUR ---
NURSE NOTES: Received report from ARLYN Hogan. Pt is seen lying in bed comfortably. Pt is alert x 2-3. Pt open eyes spontaneously and nods. Pt has vent attached with appropriate settings as ordered. Pt has no signs pain or distress. Bed in lowest position. Call light within reach. Attached to garcia patent and draining well. Attached to Rectal tube patent and draining well. Continue to plan of care. As endorsed responsible libertarian is refusing 2nd covid swab . Turn off feeding for the Abdomen savannah ordered.
--- NOTE | 2020-08-11 07:05 | NUR ---
NURSE HAND-OFF REPORT: Important Events on Shift: Pt non-compliant. Patient Status: stable Diet: Glucerna 1.5 at 40cc Pending Orders: n Pending Results/Labs: AM lab redraw. Pending MD notification: n Latest Vital Signs: Temperature 97.9 , Pulse 66 , B/P 113 /58 , Respiratory Rate 18 , O2 SAT 95 , Mechanical Ventilator, O2 Flow Rate . Vital Sign Comment: [] EKG Rhythm: Sinus Rhythm Rhythm change?: N MD Notified?: N -Dr Regan JIMENEZ Response: Latest Stevens Fall Score: 50 Fall Risk: High Risk Safety Measures: Call light Within Reach, Bed Alarm Zone 3, Side Rails Side Rails x3, Bed position Low and Locked. Fall Precautions: Yellow Socks Door Sign Patient Fall Education Report given to ARLYN Merritt.
[2020-08-11 07:22] LABS: BILIRUBIN,DIRECT 0.5 MG/DL (0.0-0.3)
[2020-08-11 08:00] VITALS: BP 120/67
--- NOTE | 2020-08-11 08:00 | NUR ---
NURSE NOTES: Pt was seen, Gtube site was clogged, tried to flushed and de-clogged unsuccessful.
--- NOTE | 2020-08-11 08:29 | Critical Care Progress Note ---
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 Port-A-Cath Status post removal of implanted right chest wall Port-A-Cath Sickle cell crisis Sickle cell anemia Chronic respiratory failure, ventilator dependent, with tracheostomy status Transaminitis Seizure disorder acute pneumonia leukocytosis recurrent sepsis PLAN care noted IV antibiotics noted respiratory care Ventilatory support- pressure control; repeat ABG and consider change back to volume control SNF meds supportive care suction no wean planned oxygen therapy and titrate prognosis guarded ID follow up and recommendations medications/laboratory data/nursing notes reviewed in detail note reviewed and edited care discussed with RN and RT Critical Care - Subjective Interval Events: out of ICU ROS Limited/Unobtainable: Yes Condition: improving EKG Rhythm: Sinus Rhythm Residuals: minimal Tube Feeding Tolerated: yes I&O: Intake and Output 08/10/20 08/11/20 19:00 07:00 Intake Total 1584.160 ml 1415 ml Output Total 1200 ml 1300 ml Balance 384.160 ml 115 ml Free Water 150 ml IV Total 1104.160 ml 825 ml Tube Feeding 480 ml 440 ml Output Urine Total 1200 ml 1200 ml Stool Total 100 ml Critical Care - Objective Last 24 Hour Vital Signs Date Time Temp Pulse Resp B/P (MAP) Pulse Ox O2 Delivery O2 Flow Rate FiO2 08/11/20 06:46 86 18 40 08/11/20 04:00 Mechanical Ventilator Mechanical Ventilator 08/11/20 04:00 40 08/11/20 04:00 97.9 82 18 113/58 (76) 95 08/11/20 04:00 66 08/11/20 03:14 84 18 40 08/11/20 00:00 99.0 105 18 116/72 (87) 95 08/11/20 00:00 115 08/11/20 00:00 Mechanical Ventilator Mechanical Ventilator 08/10/20 22:59 94 18 40 08/10/20 20:00 40 08/10/20 20:00 97 08/10/20 20:00 97.7 87 18 105/65 (78) 100 08/10/20 20:00 Mechanical Ventilator Mechanical Ventilator 08/10/20 19:36 101 18 40 08/10/20 19:00 87 18 110/73 (85) 100 08/10/20 18:00 94 16 106/73 (84) 99 08/10/20 17:00 101 18 102/65 (77) 93 08/10/20 16:00 40 08/10/20 16:00 Mechanical Ventilator Mechanical Ventilator 08/10/20 16:00 97.7 96 18 107/65 (79) 96 08/10/20 15:30 97 08/10/20 15:00 104 18 111/66 (81) 97 08/10/20 14:41 90 18 40 08/10/20 14:00 79 18 107/66 (80) 100 08/10/20 13:00 106 18 110/64 (79) 100 08/10/20 12:00 98.8 72 18 108/69 (82) 100 08/10/20 12:00 96 08/10/20 12:00 40 08/10/20 12:00 Mechanical Ventilator Mechanical Ventilator 08/10/20 11:00 91 18 106/67 (80) 100 08/10/20 10:52 75 18 40 08/10/20 10:00 77 18 113/64 (80) 100 08/10/20 09:00 101 18 104/53 (70) 98 Labs: Laboratory Tests Test 08/11/20 04:00 White Blood Count 35.4 K/UL (4.8-10.8) *H Red Blood Count 1.96 M/UL (4.70-6.10) L Hemoglobin 6.2 G/DL (14.2-18.0) *L Hematocrit 18.9 % (42.0-52.0) L Mean Corpuscular Volume 96 FL (80-99) Mean Corpuscular Hemoglobin 31.6 PG (27.0-31.0) H Mean Corpuscular Hemoglobin Concent 32.8 G/DL (32.0-36.0) Red Cell Distribution Width 17.0 % (11.6-14.8) H Platelet Count 231 K/UL (150-450) Mean Platelet Volume 8.9 FL (6.5-10.1) Neutrophils (%) (Auto) % (45.0-75.0) Lymphocytes (%) (Auto) % (20.0-45.0) Monocytes (%) (Auto) % (1.0-10.0) Eosinophils (%) (Auto) % (0.0-3.0) Basophils (%) (Auto) % (0.0-2.0) Neutrophils % (Manual) Pending Lymphocytes % (Manual) Pending Platelet Estimate Pending Platelet Morphology Pending Sodium Level 144 MMOL/L (136-145) Potassium Level 2.9 MMOL/L (3.5-5.1) L Chloride Level 111 MMOL/L (98-107) H Carbon Dioxide Level 22 MMOL/L (21-32) Anion Gap 11 mmol/L (5-15) Blood Urea Nitrogen 9 mg/dL (7-18) Creatinine 0.7 MG/DL (0.55-1.30) Estimat Glomerular Filtration Rate > 60 mL/min (>60) Glucose Level 417 MG/DL (74-106) #H Lactic Acid Level 1.00 mmol/L (0.4-2.0) Calcium Level 8.7 MG/DL (8.5-10.1) Total Bilirubin 1.2 MG/DL (0.2-1.0) H Direct Bilirubin 0.5 MG/DL (0.0-0.3) H Aspartate Amino Transf (AST/SGOT) 33 U/L (15-37) Alanine Aminotransferase (ALT/SGPT) 38 U/L (12-78) Alkaline Phosphatase 408 U/L (46-116) H Total Protein 6.4 G/DL (6.4-8.2) Albumin 1.9 G/DL (3.4-5.0) L Globulin 4.5 g/dL Albumin/Globulin Ratio 0.4 (1.0-2.7) L Objective: WDWN NAD reduced breath sounds bilaterally without rhonchi or wheeze [id number] without MRG NABS nontender GT no CCE reduced LOC Micro: Microbiology Date/Time Source Procedure Growth Status 08/09/20 11:28 Sputum Gram Stain - Final Resulted 08/09/20 11:28 Sputum Sputum Culture Pending Resulted James Nuñez MD Aug 11, 2020 08:29
[2020-08-11] MEDS: Hydroxyurea 500mg cap ORAL SCH ×2 (08:41→09:00)
[2020-08-11] MEDS: Heparin 5000 units/ml inj SUBQ SCH ×2 (08:44→20:01)
--- NOTE | 2020-08-11 09:00 | NUR ---
NURSE NOTES: Unable to give medications. Gtube is not patent.
[2020-08-11 09:10] LABS: HEMATOCRIT 20.8 % (42.0-52.0); MEAN CORPUSCULAR VOLUME 95 FL (80-99); PLATELET COUNT 251 K/UL (150-450); RED BLOOD COUNT 2.19 M/UL (4.70-6.10); RED CELL DISTRIBUTION WIDTH 17.3 % (11.6-14.8)
--- NOTE | 2020-08-11 09:13 | NUR ---
RD ASSESSMENT & RECOMMENDATIONS SEE CARE ACTIVITY FOR COMPLETE ASSESSMENT DAILY ESTIMATED NEEDS: Needs based on Underweight, Critical care/ 50.8kg 30-35 kcals/kg 4712-0397 total kcals 1.25-2 g protein/kg 64-102 g total protein 25-30 mL/kg 2634-2398 total fluid mLs NUTRITION DIAGNOSIS: Swallowing difficulty R/T respiratory status, dysphagia as evidenced by h/o craniotomy, trach/vent dep, PEG dep. CURRENT TF:Glucerna 1.5 @ 40ml/hr x 24 hrs ENTERAL NUTRITION RECOMMENDATIONS: Glucerna 1.5 @ 45ml/hr x 24 hrs to provide 1080ml, 1620kcal, 89g prot, 820ml free water * Increase goal rate to 45ml/hr x 24 hrs to meet 100% est kcal/prot needs * HOB over 30 degrees/ H2O flushes per MD ADDITIONAL RECOMMENDATIONS: * Maintain calibrated bedscale wt * Monitor BGs: BG 9/11 do=965, repeat lab result pending. Continue carb controlled TF formula as ordered for now Monitor need for NISS * Monitor lytes, replete as needed (K 5.6-> now LOW ) * Skin integrity: TF rec @ goal providesi 100% RDI * Add probiotics for diarrhea, +rectal tube
[2020-08-11 09:18] LABS: HEMOGLOBIN 6.7 G/DL (14.2-18.0)
[2020-08-11] MEDS: Vancomycin 1 GM in D5W 275 ML IVPB SCH ×2 (09:26→20:00)
--- NOTE | 2020-08-11 09:30 | NUR ---
Nurses notes; Pt is resistive to care, RT unable to draw ABG labs as pt refusing it, and said come back later.
[2020-08-11 09:33] LABS: ALANINE AMINOTRANSFERASE 40 U/L (12-78); ALBUMIN 2.1 G/DL (3.4-5.0); ALBUMIN/GLOBULIN RATIO 0.4 (1.0-2.7); ALKALINE PHOSPHATASE 474 U/L (46-116); ANION GAP 9 mmol/L (5-15); ASPARTATE AMINO TRANSFERASE 34 U/L (15-37); BILIRUBIN,TOTAL 1.3 MG/DL (0.2-1.0); BLOOD UREA NITROGEN 11 mg/dL (7-18); CALCIUM 9.9 MG/DL (8.5-10.1); CARBON DIOXIDE 25 MMOL/L (21-32); CHLORIDE 115 MMOL/L (98-107); CREATININE 0.6 MG/DL (0.55-1.30); POTASSIUM 3.1 MMOL/L (3.5-5.1); SODIUM 149 MMOL/L (136-145)
[2020-08-11 09:34] LABS: BILIRUBIN,DIRECT 0.7 MG/DL (0.0-0.3)
--- NOTE | 2020-08-11 09:41 | NUR ---
NURSE NOTES: Spoke to Dr. Celaya, relayed critical labs to him. Hgb is 6.7. WBC 35.4 and potassium 3.1. No new orders noted at this time with the hgb. No blood transfusion order per doctor. Made aware responsible libertarian is refusing the repeat Covid test. dR. Celaya made aware of Gtube is clogged, tried declogging it but pt is complaining of pain. Continue to monitor pt.
--- NOTE | 2020-08-11 10:38 | NUR ---
NURSE NOTES: Spoke to Dr. Degroot. As per discussed pt and responsible constitution party is refusing the Covid swab (2nd).She ordered to discontinue it as pt is asymptomatic and no fever. Ordered d/c isolation.
--- NOTE | 2020-08-11 10:44 | NUR ---
RADIOLOGY DEPT., ABDOMEN X-RAY DONE.-P.DYE
--- NOTE | 2020-08-11 10:53 | Infectious Diseases Prog Note ---
"Assessment/Plan Assessment/Plan antibiotics : vancomycin iv, meropenem A 1. MRSA sepsis 2. staph aureus | gram negative pneumonia 3. respiratory failure 4. sickle cell disease 5. anemia 6. leucocytosis improving 7. seizures P 1. continue iv vancomycin, meropenem 2. 2 d echo 3. will follow up cultures Subjective ROS Limited/Unobtainable: Yes Allergies: Coded Allergies: ADHESIVE TAPE (Verified Allergy, Unknown, 07/20/20) Uncoded Allergies: TAPE (Allergy, Unknown, 08/07/20) Objective Last 24 Hour Vital Signs Date Time Temp Pulse Resp B/P (MAP) Pulse Ox O2 Delivery O2 Flow Rate FiO2 08/11/20 08:00 40 08/11/20 08:00 Mechanical Ventilator Mechanical Ventilator 08/11/20 08:00 98.4 63 14 120/67 (84) 100 08/11/20 06:46 86 18 40 08/11/20 04:00 Mechanical Ventilator Mechanical Ventilator 08/11/20 04:00 40 08/11/20 04:00 97.9 82 18 113/58 (76) 95 08/11/20 04:00 66 08/11/20 03:14 84 18 40 08/11/20 00:00 99.0 105 18 116/72 (87) 95 08/11/20 00:00 115 08/11/20 00:00 Mechanical Ventilator Mechanical Ventilator 08/10/20 22:59 94 18 40 08/10/20 20:00 40 08/10/20 20:00 97 08/10/20 20:00 97.7 87 18 105/65 (78) 100 08/10/20 20:00 Mechanical Ventilator Mechanical Ventilator 08/10/20 19:36 101 18 40 08/10/20 19:00 87 18 110/73 (85) 100 08/10/20 18:00 94 16 106/73 (84) 99 08/10/20 17:00 101 18 102/65 (77) 93 08/10/20 16:00 40 08/10/20 16:00 Mechanical Ventilator Mechanical Ventilator 08/10/20 16:00 97.7 96 18 107/65 (79) 96 08/10/20 15:30 97 08/10/20 15:00 104 18 111/66 (81) 97 08/10/20 14:41 90 18 40 08/10/20 14:00 79 18 107/66 (80) 100 08/10/20 13:00 106 18 110/64 (79) 100 08/10/20 12:00 98.8 72 18 108/69 (82) 100 08/10/20 12:00 96 08/10/20 12:00 40 08/10/20 12:00 Mechanical Ventilator Mechanical Ventilator 08/10/20 11:00 91 18 106/67 (80) 100 08/10/20 10:52 75 18 40 Height (Feet): 5 Height (Inches): 10.00 Weight (Pounds): 112 HEENT: status post trach Respiratory/Chest: lungs clear Cardiovascular: normal rate, regular rhythm, no gallop/murmur Abdomen: soft, non tender, other - GT Extremities: no edema Microbiology Date/Time Source Procedure Growth Status 08/09/20 11:28 Sputum Gram Stain - Final Resulted 08/09/20 11:28 Sputum Culture - Preliminary Staphylococcus Aureus Gram Negative Bacillus 1 Resulted Laboratory Tests Test 08/11/20 04:00 08/11/20 07:45 White Blood Count 35.4 K/UL (4.8-10.8) *H 35.0 K/UL (4.8-10.8) *H Red Blood Count 1.96 M/UL (4.70-6.10) L 2.19 M/UL (4.70-6.10) L Hemoglobin 6.2 G/DL (14.2-18.0) *L 6.7 G/DL (14.2-18.0) *L Hematocrit 18.9 % (42.0-52.0) L 20.8 % (42.0-52.0) L Mean Corpuscular Volume 96 FL (80-99) 95 FL (80-99) Mean Corpuscular Hemoglobin 31.6 PG (27.0-31.0) H 30.7 PG (27.0-31.0) Mean Corpuscular Hemoglobin Concent 32.8 G/DL (32.0-36.0) 32.5 G/DL (32.0-36.0) Red Cell Distribution Width 17.0 % (11.6-14.8) H 17.3 % (11.6-14.8) H Platelet Count 231 K/UL (150-450) 251 K/UL (150-450) Mean Platelet Volume 8.9 FL (6.5-10.1) 9.6 FL (6.5-10.1) Neutrophils (%) (Auto) % (45.0-75.0) % (45.0-75.0) Lymphocytes (%) (Auto) % (20.0-45.0) % (20.0-45.0) Monocytes (%) (Auto) % (1.0-10.0) % (1.0-10.0) Eosinophils (%) (Auto) % (0.0-3.0) % (0.0-3.0) Basophils (%) (Auto) % (0.0-2.0) % (0.0-2.0) Differential Total Cells Counted 100 Neutrophils % (Manual) 77 % (45-75) H Pending Lymphocytes % (Manual) 7 % (20-45) L Pending Monocytes % (Manual) 10 % (1-10) Eosinophils % (Manual) 5 % (0-3) H Basophils % (Manual) 1 % (0-2) Band Neutrophils 0 % (0-8) Nucleated Red Blood Cells 2 /100 WBC Platelet Estimate Adequate Pending Platelet Morphology Normal Pending Hypochromasia 4+ Anisocytosis 1+ Spherocytes 1+ Sodium Level 144 MMOL/L (136-145) 149 MMOL/L (136-145) H Potassium Level 2.9 MMOL/L (3.5-5.1) L 3.1 MMOL/L (3.5-5.1) L Chloride Level 111 MMOL/L (98-107) H 115 MMOL/L (98-107) H Carbon Dioxide Level 22 MMOL/L (21-32) 25 MMOL/L (21-32) Anion Gap 11 mmol/L (5-15) 9 mmol/L (5-15) Blood Urea Nitrogen 9 mg/dL (7-18) 11 mg/dL (7-18) Creatinine 0.7 MG/DL (0.55-1.30) 0.6 MG/DL (0.55-1.30) Estimat Glomerular Filtration Rate > 60 mL/min (>60) > 60 mL/min (>60) Glucose Level 417 MG/DL (74-106) #H 95 MG/DL (74-106) # Lactic Acid Level 1.00 mmol/L (0.4-2.0) Calcium Level 8.7 MG/DL (8.5-10.1) 9.9 MG/DL (8.5-10.1) Total Bilirubin 1.2 MG/DL (0.2-1.0) H 1.3 MG/DL (0.2-1.0) H Direct Bilirubin 0.5 MG/DL (0.0-0.3) H 0.7 MG/DL (0.0-0.3) H Aspartate Amino Transf (AST/SGOT) 33 U/L (15-37) 34 U/L (15-37) Alanine Aminotransferase (ALT/SGPT) 38 U/L (12-78) 40 U/L (12-78) Alkaline Phosphatase 408 U/L (46-116) H 474 U/L (46-116) H Total Protein 6.4 G/DL (6.4-8.2) 7.2 G/DL (6.4-8.2) Albumin 1.9 G/DL (3.4-5.0) L 2.1 G/DL (3.4-5.0) L Globulin 4.5 g/dL 5.1 g/dL Albumin/Globulin Ratio 0.4 (1.0-2.7) L 0.4 (1.0-2.7) L Current Medications Medications (Trade) Dose Ordered Sig/Piedad Route PRN Reason Start Time Stop Time Status Last Admin Dose Admin Acetaminophen (Tylenol) 650 mg Q6H PRN GT Temp >100.5 08/10/20 20:20 09/09/20 20:19 Albuterol Sulfate (Proventil) 2.5 mg Q4H PRN HHN Shortness of Breath 08/10/20 20:20 08/15/20 20:19 Baclofen (Lioresal) 10 mg THREE TIMES A DAY GT 08/11/20 09:00 09/07/20 08:59 08/11/20 08:40 Chlorhexidine Gluconate (Christy-Hex 2%) 1 applic DAILY@2000 TOPIC 08/11/20 20:00 11/06/20 19:59 Dextrose/Sodium Chloride 1,000 ml @ 75 mls/hr [id number] IV 08/10/20 20:19 09/09/20 20:18 08/11/20 05:37 Famotidine (Pepcid) 20 mg DAILY GT 08/11/20 09:00 11/06/20 08:59 08/11/20 08:42 Folic Acid (Folate) 1 mg DAILY GT 08/11/20 09:00 09/07/20 08:59 08/11/20 08:41 Heparin Sodium (Porcine) (Heparin 5000 units/ml) 5,000 units EVERY 12 HOURS SUBQ 08/10/20 21:00 09/22/20 20:59 Hydroxyurea (Hydrea) 500 mg DAILY ORAL 08/11/20 09:00 08/13/20 08:59 08/11/20 08:41 Levetiracetam (Keppra) 1,000 mg Q12HR GT 08/10/20 21:00 09/07/20 08:59 08/11/20 08:40 Lorazepam (Ativan 2mg/ml 1ml) 1 mg Q6H PRN IV For Anxiety 08/10/20 20:21 08/17/20 20:20 Meropenem 1 gm/ Sodium Chloride 55 ml @ 110 mls/hr Q8HR IVPB 08/10/20 22:00 08/15/20 13:59 08/11/20 05:28 Morphine Sulfate (Morphine Sulfate) 2 mg Q4H PRN IVP For Pain 08/10/20 20:21 08/17/20 20:20 08/11/20 03:18 Multivitamins (Multivitamins) 1 tab DAILY GT 08/11/20 09:00 09/07/20 08:59 08/11/20 08:41 Vancomycin HCl (Vanco pharmacy to dose) 1 ea DAILY PRN MISC Per rx protocol 08/11/20 09:00 09/07/20 06:14 Vancomycin HCl 1 gm/Dextrose 275 ml @ 183.708 mls/hr Q12HR IVPB 08/10/20 21:00 08/13/20 08:59 08/11/20 09:26 Isabelle Degroot MD Aug 11, 2020 10:53"
--- NOTE | 2020-08-11 11:46 | General Progress Note ---
Assessment/Plan Problem List: (1) Pneumonia ICD Codes: J18.9 - Pneumonia, unspecified organism SNOMED: 693087733 Qualifiers: Qualified Codes: J18.9 - Pneumonia, unspecified organism (2) Sickle cell anemia ICD Codes: D57.1 - Sickle-cell disease without crisis SNOMED: 960316641 Qualifiers: Qualified Codes: D57.00 - Hb-SS disease with crisis, unspecified (3) Severe sepsis ICD Codes: A41.9 - Sepsis, unspecified organism; R65.20 - Severe sepsis without septic shock SNOMED: 03187538 Status: stable, not improved Assessment/Plan: cont current rx vent support iv abx cultures reviewed 2d echo monitor cxr keep dry repeat covid. ivf adjusted monitor labs replace k critical and guarded Subjective ROS Limited/Unobtainable: No Constitutional: Reports: malaise, weakness HEENT: Reports: no symptoms Cardiovascular: Reports: no symptoms Respiratory: Reports: no symptoms Gastrointestinal/Abdominal: Reports: no symptoms Genitourinary: Reports: no symptoms Neurologic/Psychiatric: Reports: no symptoms Endocrine: Reports: no symptoms Hematologic/Lymphatic: Reports: no symptoms Allergies: Coded Allergies: ADHESIVE TAPE (Verified Allergy, Unknown, 07/20/20) Uncoded Allergies: TAPE (Allergy, Unknown, 08/07/20) All Systems: reviewed and negative except above Subjective no events. more alert. wbc remains elevated. on iv abx. h/h lower. no bleeding. low k Objective Last 24 Hour Vital Signs Date Time Temp Pulse Resp B/P (MAP) Pulse Ox O2 Delivery O2 Flow Rate FiO2 08/11/20 10:44 92 18 40 08/11/20 08:00 40 08/11/20 08:00 Mechanical Ventilator Mechanical Ventilator 08/11/20 08:00 98.4 63 14 120/67 (84) 100 08/11/20 06:46 86 18 40 08/11/20 04:00 Mechanical Ventilator Mechanical Ventilator 08/11/20 04:00 40 08/11/20 04:00 97.9 82 18 113/58 (76) 95 08/11/20 04:00 66 08/11/20 03:14 84 18 40 08/11/20 00:00 99.0 105 18 116/72 (87) 95 08/11/20 00:00 115 08/11/20 00:00 Mechanical Ventilator Mechanical Ventilator 08/10/20 22:59 94 18 40 08/10/20 20:00 40 08/10/20 20:00 97 08/10/20 20:00 97.7 87 18 105/65 (78) 100 08/10/20 20:00 Mechanical Ventilator Mechanical Ventilator 08/10/20 19:36 101 18 40 08/10/20 19:00 87 18 110/73 (85) 100 08/10/20 18:00 94 16 106/73 (84) 99 08/10/20 17:00 101 18 102/65 (77) 93 08/10/20 16:00 40 08/10/20 16:00 Mechanical Ventilator Mechanical Ventilator 08/10/20 16:00 97.7 96 18 107/65 (79) 96 08/10/20 15:30 97 08/10/20 15:00 104 18 111/66 (81) 97 08/10/20 14:41 90 18 40 08/10/20 14:00 79 18 107/66 (80) 100 08/10/20 13:00 106 18 110/64 (79) 100 08/10/20 12:00 98.8 72 18 108/69 (82) 100 08/10/20 12:00 96 08/10/20 12:00 40 08/10/20 12:00 Mechanical Ventilator Mechanical Ventilator Intake and Output 08/10/20 08/11/20 19:00 07:00 Intake Total 1584.160 ml 1415 ml Output Total 1200 ml 1300 ml Balance 384.160 ml 115 ml Free Water 150 ml IV Total 1104.160 ml 825 ml Tube Feeding 480 ml 440 ml Output Urine Total 1200 ml 1200 ml Stool Total 100 ml Laboratory Tests 08/11/20 04:00: White Blood Count 35.4*H, Red Blood Count 1.96L, Hemoglobin 6.2*L, Hematocrit 18.9L, Mean Corpuscular Volume 96, Mean Corpuscular Hemoglobin 31.6H, Mean Corpuscular Hemoglobin Concent 32.8, Red Cell Distribution Width 17.0H, Platelet Count 231, Mean Platelet Volume 8.9, Neutrophils (%) (Auto) , Lymphocytes (%) (Auto) , Monocytes (%) (Auto) , Eosinophils (%) (Auto) , Basophils (%) (Auto) , Differential Total Cells Counted 100, Neutrophils % ( Manual) 77H, Lymphocytes % (Manual) 7L, Monocytes % (Manual) 10, Eosinophils % ( Manual) 5H, Basophils % (Manual) 1, Band Neutrophils 0, Nucleated Red Blood Cells 2, Platelet Estimate Adequate, Platelet Morphology Normal, Hypochromasia 4 +, Anisocytosis 1+, Spherocytes 1+, Sodium Level 144, Potassium Level 2.9L, Chloride Level 111H, Carbon Dioxide Level 22, Anion Gap 11, Blood Urea Nitrogen 9, Creatinine 0.7, Estimat Glomerular Filtration Rate > 60, Glucose Level 417#H , Lactic Acid Level 1.00, Calcium Level 8.7, Total Bilirubin 1.2H, Direct Bilirubin 0.5H, Aspartate Amino Transf (AST/SGOT) 33, Alanine Aminotransferase ( ALT/SGPT) 38, Alkaline Phosphatase 408H, Total Protein 6.4, Albumin 1.9L, Globulin 4.5, Albumin/Globulin Ratio 0.4L 08/11/20 07:45: White Blood Count 35.0*H, Red Blood Count 2.19L, Hemoglobin 6.7*L, Hematocrit 20.8L, Mean Corpuscular Volume 95, Mean Corpuscular Hemoglobin 30.7, Mean Corpuscular Hemoglobin Concent 32.5, Red Cell Distribution Width 17.3H, Platelet Count 251, Mean Platelet Volume 9.6, Neutrophils (%) (Auto) , Lymphocytes (%) (Auto) , Monocytes (%) (Auto) , Eosinophils (%) (Auto) , Basophils (%) (Auto) , Neutrophils % (Manual) [Pending], Lymphocytes % (Manual) [Pending], Platelet Estimate [Pending], Platelet Morphology [Pending], Sodium Level 149H, Potassium Level 3.1L, Chloride Level 115H, Carbon Dioxide Level 25, Anion Gap 9, Blood Urea Nitrogen 11, Creatinine 0.6, Estimat Glomerular Filtration Rate > 60, Glucose Level 95#, Calcium Level 9.9, Total Bilirubin 1.3H , Direct Bilirubin 0.7H, Aspartate Amino Transf (AST/SGOT) 34, Alanine Aminotransferase (ALT/SGPT) 40, Alkaline Phosphatase 474H, Total Protein 7.2, Albumin 2.1L, Globulin 5.1, Albumin/Globulin Ratio 0.4L Height (Feet): 5 Height (Inches): 10.00 Weight (Pounds): 112 Objective General Appearance: WD/WN, lethargic EENT: normal ENT inspection Neck: normal alignment Cardiovascular: normal peripheral pulses, normal rate Respiratory/Chest: chest wall non-tender, lungs clear, normal breath sounds Abdomen: normal bowel sounds, non tender, soft, no organomegaly Edema: no edema noted Arm (L), no edema noted Arm (R) Neurologic: unresponsive Lalo Celyaa MD Aug 11, 2020 11:46
--- NOTE | 2020-08-11 11:58 | NUR ---
NURSE NOTES: Spoke t o Pharmacy to re-time the Potassium. The Gtube is clogged and declogging non succesful. Dr. Bryan is in the case for GI consult.
[2020-08-11 12:00] VITALS: BP 116/62
--- NOTE | 2020-08-11 12:52 | NUR ---
CASE MANAGEMENT: REVIEW 08/11/2020 SI:GRAM NEG SEPSIS. PNEUMONITIS. VS: T 98.4 HR 63 RR 14 B/P 120/67 SATS 100% ON MECH VENT FIO2 40 LABS: WBC 35 HGB 6.7 HCT 20.8 NA 149 K 3.1 CL 115 TBILI 1.3 DBILI 0.7 ALP 474 IS:DEX/NS @ 75 ML/HR HYDREA PO QD VANCO IV Q12H `KEPPRA GT Q12H MEROPENEM IV Q8H BACLOFEN GT TID SDU DCP: [facility] PLAN OF CARE: 2D ECHO repeat covid replace k PER PULMO >> Ventilatory support- pressure control; repeat ABG and consider change back to volume control KUB RESULTS PENDING US ABD PENDING RESULTS
--- NOTE | 2020-08-11 12:59 | NUR ---
INSURANCE PROGRESS NOTES AND REVIEW FAXED TO [facility] P:[phone] F:[phone] (FAX CLINICALS)
--- NOTE | 2020-08-11 14:46 | Surgery Progress Note ---
Surgery Progress Note Subjective Additional Comments improved comfortable awake echo today wbc still elevated Objective Last 24 Hour Vital Signs Date Time Temp Pulse Resp B/P (MAP) Pulse Ox O2 Delivery O2 Flow Rate FiO2 08/11/20 12:00 87 08/11/20 12:00 Mechanical Ventilator Mechanical Ventilator 08/11/20 12:00 40 08/11/20 10:44 92 18 40 08/11/20 08:00 40 08/11/20 08:00 Mechanical Ventilator Mechanical Ventilator 08/11/20 08:00 98.4 63 14 120/67 (84) 100 08/11/20 08:00 87 08/11/20 06:46 86 18 40 08/11/20 04:00 Mechanical Ventilator Mechanical Ventilator 08/11/20 04:00 40 08/11/20 04:00 97.9 82 18 113/58 (76) 95 08/11/20 04:00 66 08/11/20 03:14 84 18 40 08/11/20 00:00 99.0 105 18 116/72 (87) 95 08/11/20 00:00 115 08/11/20 00:00 Mechanical Ventilator Mechanical Ventilator 08/10/20 22:59 94 18 40 08/10/20 20:00 40 08/10/20 20:00 97 08/10/20 20:00 97.7 87 18 105/65 (78) 100 08/10/20 20:00 Mechanical Ventilator Mechanical Ventilator 08/10/20 19:36 101 18 40 08/10/20 19:00 87 18 110/73 (85) 100 08/10/20 18:00 94 16 106/73 (84) 99 08/10/20 17:00 101 18 102/65 (77) 93 08/10/20 16:00 40 08/10/20 16:00 Mechanical Ventilator Mechanical Ventilator 08/10/20 16:00 97.7 96 18 107/65 (79) 96 08/10/20 15:30 97 08/10/20 15:00 104 18 111/66 (81) 97 I&O Intake and Output 08/10/20 08/11/20 19:00 07:00 Intake Total 1584.160 ml 1490 ml Output Total 1200 ml 1300 ml Balance 384.160 ml 190 ml Free Water 150 ml IV Total 1104.160 ml 900 ml Tube Feeding 480 ml 440 ml Output Urine Total 1200 ml 1200 ml Stool Total 100 ml Dressing: dry, other Wound: other Cardiovascular: RSR Respiratory: decreased breath sounds Abdomen: soft, non-tender, present bowel sounds Extremities: no edema, no tenderness, no cyanosis Laboratory Tests Test 08/11/20 04:00 08/11/20 07:45 White Blood Count 35.4 K/UL (4.8-10.8) *H 35.0 K/UL (4.8-10.8) *H Red Blood Count 1.96 M/UL (4.70-6.10) L 2.19 M/UL (4.70-6.10) L Hemoglobin 6.2 G/DL (14.2-18.0) *L 6.7 G/DL (14.2-18.0) *L Hematocrit 18.9 % (42.0-52.0) L 20.8 % (42.0-52.0) L Mean Corpuscular Volume 96 FL (80-99) 95 FL (80-99) Mean Corpuscular Hemoglobin 31.6 PG (27.0-31.0) H 30.7 PG (27.0-31.0) Mean Corpuscular Hemoglobin Concent 32.8 G/DL (32.0-36.0) 32.5 G/DL (32.0-36.0) Red Cell Distribution Width 17.0 % (11.6-14.8) H 17.3 % (11.6-14.8) H Platelet Count 231 K/UL (150-450) 251 K/UL (150-450) Mean Platelet Volume 8.9 FL (6.5-10.1) 9.6 FL (6.5-10.1) Neutrophils (%) (Auto) % (45.0-75.0) % (45.0-75.0) Lymphocytes (%) (Auto) % (20.0-45.0) % (20.0-45.0) Monocytes (%) (Auto) % (1.0-10.0) % (1.0-10.0) Eosinophils (%) (Auto) % (0.0-3.0) % (0.0-3.0) Basophils (%) (Auto) % (0.0-2.0) % (0.0-2.0) Differential Total Cells Counted 100 100 Neutrophils % (Manual) 77 % (45-75) H 72 % (45-75) Lymphocytes % (Manual) 7 % (20-45) L 11 % (20-45) L Monocytes % (Manual) 10 % (1-10) 13 % (1-10) H Eosinophils % (Manual) 5 % (0-3) H 3 % (0-3) Basophils % (Manual) 1 % (0-2) 1 % (0-2) Band Neutrophils 0 % (0-8) 0 % (0-8) Nucleated Red Blood Cells 2 /100 WBC 1 /100 WBC Platelet Estimate Adequate Adequate Platelet Morphology Normal Normal Hypochromasia 4+ 4+ Anisocytosis 1+ 1+ Spherocytes 1+ 2+ Sodium Level 144 MMOL/L (136-145) 149 MMOL/L (136-145) H Potassium Level 2.9 MMOL/L (3.5-5.1) L 3.1 MMOL/L (3.5-5.1) L Chloride Level 111 MMOL/L (98-107) H 115 MMOL/L (98-107) H Carbon Dioxide Level 22 MMOL/L (21-32) 25 MMOL/L (21-32) Anion Gap 11 mmol/L (5-15) 9 mmol/L (5-15) Blood Urea Nitrogen 9 mg/dL (7-18) 11 mg/dL (7-18) Creatinine 0.7 MG/DL (0.55-1.30) 0.6 MG/DL (0.55-1.30) Estimat Glomerular Filtration Rate > 60 mL/min (>60) > 60 mL/min (>60) Glucose Level 417 MG/DL (74-106) #H 95 MG/DL (74-106) # Lactic Acid Level 1.00 mmol/L (0.4-2.0) Calcium Level 8.7 MG/DL (8.5-10.1) 9.9 MG/DL (8.5-10.1) Total Bilirubin 1.2 MG/DL (0.2-1.0) H 1.3 MG/DL (0.2-1.0) H Direct Bilirubin 0.5 MG/DL (0.0-0.3) H 0.7 MG/DL (0.0-0.3) H Aspartate Amino Transf (AST/SGOT) 33 U/L (15-37) 34 U/L (15-37) Alanine Aminotransferase (ALT/SGPT) 38 U/L (12-78) 40 U/L (12-78) Alkaline Phosphatase 408 U/L (46-116) H 474 U/L (46-116) H Total Protein 6.4 G/DL (6.4-8.2) 7.2 G/DL (6.4-8.2) Albumin 1.9 G/DL (3.4-5.0) L 2.1 G/DL (3.4-5.0) L Globulin 4.5 g/dL 5.1 g/dL Albumin/Globulin Ratio 0.4 (1.0-2.7) L 0.4 (1.0-2.7) L Plan Problems: (1) Pneumonia (2) Sickle cell anemia (3) Tachycardia (4) Severe sepsis (5) Sickle cell crisis (6) Sepsis Assessment & Plan: 35-year-old male sickle cell multiple comorbidities history of craniotomy trach feeding tube prior port infected removed see prior admission and consult and operative notes. Currently presents with significant leukocytosis fevers hypotension in intensive care unit wound site evaluated unlikely etiology. Trach evaluated may consider changing. LFTs noted elevated. Ultrasound ordered pending results trend labs continue IV antibiotics appreciate infectious disease input will follow with recommendations thank you for let me participate in patient's care pulmonary arteries: Evaluation for pulmonary embolus is limited due to breathing motion artifact. No central pulmonary emboli are identified. Aorta: No acute findings. No thoracic aortic aneurysm. Lungs: There are moderately consolidating infiltrates identified in both lower lobes dependently with mild additional patchy infiltrates dependently in both upper lobes. The findings are consistent with bilateral nonspecific pneumonia. Aspiration pneumonia could give this appearance. The infiltrates are only somewhat typical of Covid 19. Confidence is immediate. Pleural space: Unremarkable. No significant effusion. No pneumothorax. Heart: Unremarkable. No cardiomegaly. No significant pericardial effusion. No evidence of RV dysfunction. Bones/joints: No acute fracture. No dislocation. Soft tissues: Unremarkable. Lymph nodes: Unremarkable. No enlarged lymph nodes. Tubes, lines and devices: There is a tracheostomy tube in good position. IMPRESSION: 1. There are moderately consolidating infiltrates identified in both lower lobes dependently with mild additional patchy infiltrates dependently in both upper lobes. The findings are consistent with bilateral nonspecific pneumonia. Aspiration pneumonia could give this appearance. The infiltrates are only somewhat typical of Covid 19. Confidence is immediate. 2. Evaluation for pulmonary embolus is limited due to breathing motion artifact. No central pulmonary emboli are identified. (7) Port-A-Cath in place Assessment & Plan: prior removal for infection site okay dressings changed no active infection from wound Harman Zhao Aug 11, 2020 14:46
--- NOTE | 2020-08-11 15:41 | NUR ---
NURSE NOTES: Pt was seen with pain. Pain noted 10/10. generalized weakness. Pt was given morphine as ordered slowly over 4 mins. O2 sat 100%. RRR- 18. BP:11/62. Continue to monitor.
[2020-08-11 16:07] VITALS: BP 129/75
--- NOTE | 2020-08-11 16:20 | NUR ---
NURSE NOTES: Dr. Martinez seen pt. Replaced Gtube . ordered KUB abdomen.
--- NOTE | 2020-08-11 16:25 | Diagnostic Imaging Report ---
Indication: Abdominal pain Technique: Supine view of the abdomen Comparison: none Findings: There is a right groin central venous catheter. There is a gastrostomy. Considerable gas is seen in nondilated large and small bowel. There are cholecystectomy clips Impression: No acute process
--- NOTE | 2020-08-11 16:33 | Diagnostic Imaging Report ---
Indication: Abdominal pain Technique: Limited grayscale and duplex images of the right upper quadrant Comparison: 07/21/2020 Findings: The gallbladder cannot be demonstrated. The common bile duct is not demonstrated, but there is no gross biliary ductal dilatation The left kidney and spleen cannot be visualized. Unremarkable pancreas. Nonaneurysmal abdominal aorta. Liver demonstrates normal echogenicity, no focal abnormality. It is enlarged. Right kidney measures 12.5 cm in length. Impression: Very limited exam, as described Nonvisualized gallbladder. Presumably surgically absent as recent abdomen radiograph demonstrates cholecystectomy clips No gross biliary ductal dilatation Note nonvisualization of the left kidney and spleen Mild hepatomegaly
--- NOTE | 2020-08-11 17:19 | Diagnostic Imaging Report ---
Indication: Status post gastrostomy replacement Technique: Supine view of the abdomen after injection of water-soluble contrast into gastrostomy Comparison: 6 hours earlier Findings: Contrast opacifies the stomach. No contrast extravasation is demonstrated. The bowel gas pattern is unremarkable. . Gastrostomy balloon is larger and more radiopaque than the previous, suggesting interim gastrostomy exchange. Impression: Satisfactory position of gastrostomy tube
--- NOTE | 2020-08-11 19:00 | NUR ---
NURSE HAND-OFF REPORT: Important Events on Shift: Low Hemoglobin, low potassium, G-tube replacement Patient Status: Asymptomatic Diet: Glucerna 1.5 @40ml/hr Pending Orders: None Pending Results/Labs:2d-echo Pending MD notification:None Latest Vital Signs: Temperature 98.2 , Pulse 71 , B/P 129 /75 , Respiratory Rate 20 , O2 SAT 100 , Mechanical Ventilator, O2 Flow Rate . Vital Sign Comment: Stable EKG Rhythm: Sinus Rhythm Rhythm change?: N Notified?: N -Dr Regan JIMENEZ Response: Latest Stevens Fall Score: 70 Fall Risk: High Risk Safety Measures: Call light Within Reach, Bed Alarm Zone 3, Side Rails Side Rails x3, Bed position Low and Locked. Fall Precautions: Yellow Socks Door Sign Patient Fall Education Report given to [ARLYN Lee].
[2020-08-11] MEDS ORDERED: D5 1/2NS 1000ml IV ONE (19:20)
[2020-08-11] MEDS ORDERED: Sterile Water Irrig 1000ml IRRIG ONE (19:20)
--- NOTE | 2020-08-11 19:36 | NUR ---
NURSE NOTES: Received report from ARLYN Merritt, pt. in bed awake- watching television- appears to be alert x's 2-3- no signs or symptoms of acute cardiac or respiratory distress noted, pt. appears to be tolerating current vent settings as ordered- pressure control 18, Fio2 at 40%, inspiratory time 0.9 and no peep- no distress noted, G tube running Glucerna 1.5 at 40cc/hr- no residual noted, side rails padded for seizure precautions- no seizure activity noted, rectal tube and [place]ton both intact and draining to gravity, pt. appears clean and dry, Right femoral TLC intact and patent- running D5 1/2 NS at 75cc/hr, safety measures continued, will continue with plan of care.
[2020-08-11] MEDS: Dyna-Hex 2% Top Sol 2oz TOPIC SCH (19:59)
[2020-08-11 20:00] VITALS: BP 118/63
--- NOTE | 2020-08-11 22:49 | NUR ---
NURSE NOTES: full bed bath given- oral care provided- repositioned and turned pt. -pt. appears to be tolerating current vent orders and G tube feeding- pt. denies pain, will continue to monitor pt. and with plan of care.
--- NOTE | 2020-08-11 23:01 | General Progress Note ---
Assessment/Plan Status: stable, not improved Assessment/Plan: Assessment - occluded GT - replaced and verified - abnormal LFT, ? etiology, ? sickle hepatopathy +/- sepsis - sickle cell - leukocytosis/PNA/Sepsis - seizure d/o - s/p trach and PEG Recommendations - Resume TF - GT care - Elevate HOB - check GABINO/AMA/hepatitis serologies - hydration Subjective Allergies: Coded Allergies: ADHESIVE TAPE (Verified Allergy, Unknown, 07/20/20) Uncoded Allergies: TAPE (Allergy, Unknown, 08/07/20) Objective Last 24 Hour Vital Signs Date Time Temp Pulse Resp B/P (MAP) Pulse Ox O2 Delivery O2 Flow Rate FiO2 08/11/20 20:00 40 08/11/20 20:00 Mechanical Ventilator Mechanical Ventilator 08/11/20 20:00 98.1 74 18 118/63 (81) 100 08/11/20 19:47 71 18 40 08/11/20 19:44 76 08/11/20 16:07 98.2 71 20 129/75 (93) 100 08/11/20 16:07 98.2 08/11/20 16:00 68 08/11/20 16:00 Mechanical Ventilator Mechanical Ventilator 08/11/20 16:00 40 08/11/20 14:30 76 18 40 08/11/20 12:00 87 08/11/20 12:00 Mechanical Ventilator Mechanical Ventilator 08/11/20 12:00 98.2 84 16 116/62 (80) 96 08/11/20 12:00 40 08/11/20 10:44 92 18 40 08/11/20 08:00 40 08/11/20 08:00 Mechanical Ventilator Mechanical Ventilator 08/11/20 08:00 98.4 63 14 120/67 (84) 100 08/11/20 08:00 87 08/11/20 06:46 86 18 40 08/11/20 04:00 Mechanical Ventilator Mechanical Ventilator 08/11/20 04:00 40 08/11/20 04:00 97.9 82 18 113/58 (76) 95 08/11/20 04:00 66 08/11/20 03:14 84 18 40 08/11/20 00:00 99.0 105 18 116/72 (87) 95 08/11/20 00:00 115 08/11/20 00:00 Mechanical Ventilator Mechanical Ventilator Intake and Output 08/10/20 08/11/20 19:00 07:00 Intake Total 1584.160 ml 1490 ml Output Total 1200 ml 1300 ml Balance 384.160 ml 190 ml Free Water 150 ml IV Total 1104.160 ml 900 ml Tube Feeding 480 ml 440 ml Output Urine Total 1200 ml 1200 ml Stool Total 100 ml Laboratory Tests 08/11/20 04:00: White Blood Count 35.4*H, Red Blood Count 1.96L, Hemoglobin 6.2*L, Hematocrit 18.9L, Mean Corpuscular Volume 96, Mean Corpuscular Hemoglobin 31.6H, Mean Corpuscular Hemoglobin Concent 32.8, Red Cell Distribution Width 17.0H, Platelet Count 231, Mean Platelet Volume 8.9, Neutrophils (%) (Auto) , Lymphocytes (%) (Auto) , Monocytes (%) (Auto) , Eosinophils (%) (Auto) , Basophils (%) (Auto) , Differential Total Cells Counted 100, Neutrophils % ( Manual) 77H, Lymphocytes % (Manual) 7L, Monocytes % (Manual) 10, Eosinophils % ( Manual) 5H, Basophils % (Manual) 1, Band Neutrophils 0, Nucleated Red Blood Cells 2, Platelet Estimate Adequate, Platelet Morphology Normal, Hypochromasia 4 +, Anisocytosis 1+, Spherocytes 1+, Sodium Level 144, Potassium Level 2.9L, Chloride Level 111H, Carbon Dioxide Level 22, Anion Gap 11, Blood Urea Nitrogen 9, Creatinine 0.7, Estimat Glomerular Filtration Rate > 60, Glucose Level 417#H , Lactic Acid Level 1.00, Calcium Level 8.7, Total Bilirubin 1.2H, Direct Bilirubin 0.5H, Aspartate Amino Transf (AST/SGOT) 33, Alanine Aminotransferase ( ALT/SGPT) 38, Alkaline Phosphatase 408H, Total Protein 6.4, Albumin 1.9L, Globulin 4.5, Albumin/Globulin Ratio 0.4L 08/11/20 07:45: White Blood Count 35.0*H, Red Blood Count 2.19L, Hemoglobin 6.7*L, Hematocrit 20.8L, Mean Corpuscular Volume 95, Mean Corpuscular Hemoglobin 30.7, Mean Corpuscular Hemoglobin Concent 32.5, Red Cell Distribution Width 17.3H, Platelet Count 251, Mean Platelet Volume 9.6, Neutrophils (%) (Auto) , Lymphocytes (%) (Auto) , Monocytes (%) (Auto) , Eosinophils (%) (Auto) , Basophils (%) (Auto) , Differential Total Cells Counted 100, Neutrophils % ( Manual) 72, Lymphocytes % (Manual) 11L, Monocytes % (Manual) 13H, Eosinophils % (Manual) 3, Basophils % (Manual) 1, Band Neutrophils 0, Nucleated Red Blood Cells 1, Platelet Estimate Adequate, Platelet Morphology Normal, Hypochromasia 4 +, Anisocytosis 1+, Spherocytes 2+, Sodium Level 149H, Potassium Level 3.1L, Chloride Level 115H, Carbon Dioxide Level 25, Anion Gap 9, Blood Urea Nitrogen 11, Creatinine 0.6, Estimat Glomerular Filtration Rate > 60, Glucose Level 95#, Calcium Level 9.9, Total Bilirubin 1.3H, Direct Bilirubin 0.7H, Aspartate Amino Transf (AST/SGOT) 34, Alanine Aminotransferase (ALT/SGPT) 40, Alkaline Phosphatase 474H, Total Protein 7.2, Albumin 2.1L, Globulin 5.1, Albumin/ Globulin Ratio 0.4L Height (Feet): 5 Height (Inches): 10.00 Weight (Pounds): 112 Nasrin Stiles MD Aug 11, 2020 23:01
[2020-08-12] VITALS (9 sets, daily range): BP systolic 106–138; BP diastolic 54–79
--- NOTE | 2020-08-12 | Consultation ---
DATE OF CONSULTATION: 08/11/2020 GASTROENTEROLOGY CONSULTATION CONSULTING PHYSICIAN: Nasrin Stiles MD. CHIEF COMPLAINT: I was asked to see this patient by Dr. Lalo Celaya for evaluation of gastrostomy occlusion and abnormal liver tests. HISTORY OF PRESENT ILLNESS: The patient is an unfortunate 35-year-old man with sickle cell disease and had multiple complications, now requiring a gastrostomy and tracheostomy tube. His gastrostomy tube was occluded, which generated this consultation. The patient also has been noted to have abnormal liver tests of unclear etiology. His CT scan showed the gallbladder, which was removed and otherwise no liver abnormalities were identified. The patient has no chart history of any liver disease in the past. He is unable to provide any history himself. PAST MEDICAL HISTORY: History of sickle cell disease, seizure disorder, status post tracheostomy and gastrostomy tube placement, pneumonia, stroke. FAMILY HISTORY: Noncontributory. ALLERGIES: None except adhesive tape. SOCIAL HISTORY: The patient [place] in a [place] and has had no recent history of smoking or drinking. REVIEW OF SYSTEMS: Otherwise negative. PHYSICAL EXAMINATION: GENERAL: Debilitated man, seen on the ventilator in his room. NECK: The patient had a tracheostomy catheter in his neck area. CHEST: Revealed coarse breath sounds. CARDIAC: Revealed a regular rate. ABDOMEN: Soft and flat. The old gastrostomy tube was removed and replaced with a 20-Tajik gastrostomy replacement catheter. EXTREMITIES: Revealed no edema. LABORATORY DATA: Noted. ASSESSMENT: This patient has a gastrostomy tube change and subsequently also verified its position. He has abnormal liver tests of unclear etiology. The sickle cell can often cause hepatic resulting in abnormal liver tests on a chronic basis and worse during admissions with sepsis. Alternatively other main condition such as . I will check his autoimmune markers and also in the meantime, hydrate him and follow the liver tests conservatively. Tube feedings can be started. I will follow this patient with you. Nasrin Stiles M.D. : MADAY JOB#: [id number] CC:
[2020-08-12] MEDS: Morphine Sulfate 2mg/ml Inj(IV/IM USE ONLY) IVP PRN ×3 (02:02→20:30)
--- NOTE | 2020-08-12 03:38 | NUR ---
NURSE NOTES: pt. stated he is doing better- after Morphine administration- no signs of distress noted- will continue to monitor pt. and with plan of care. VS remain stable.
[2020-08-12] MEDS: Meropenem 1 GM in NS 55 ML IVPB SCH ×3 (05:05→21:43)
--- NOTE | 2020-08-12 07:09 | NUR ---
NURSE HAND-OFF REPORT: Important Events on Shift:none Patient Status: stable diet Glucerna 1.5 Pending Orders: Pending Results/Labs: Pending MD notification: Latest Vital Signs: Temperature 98.2 , Pulse 87 , B/P 115 /66 , Respiratory Rate 18 , O2 SAT 97 , Mechanical Ventilator, O2 Flow Rate . Vital Sign Comment: EKG Rhythm: Sinus Rhythm to ST to SR Rhythm change?: Y MD Notified?: no pt. back to SR MD Response: Latest Stevens Fall Score: 70 Fall Risk: High Risk Safety Measures: Call light Within Reach, Bed Alarm Zone 3, Side Rails Side Rails x3, Bed position Low and Locked. Fall Precautions: Yellow Socks Door Sign Patient Fall Education Report given to ARLYN Richard- aware to f/u on any abnormal am labs.
--- NOTE | 2020-08-12 07:26 | NUR ---
NURSE NOTES: Received report from ARLYN Lee. Patient is resting in bed, in stable condition. No s/sx of SOB, breathing is even and unlabored, on vent settings as ordered. Patient can mouth words, observed no presence of pain or discomfort at this time. Introduced self to patient, patient mouth words, "Get the (expletive) out of my room." Noted. Bed is in lowest position, brakes engaged. Call light is kept within easy reach. Will continue to monitor patient.
--- NOTE | 2020-08-12 08:30 | NUR ---
NURSE NOTES: LATE ENTRY: Per night nurse report Dr. Celaya is aware of patient's hemoglobin level of 6.7, no orders were given, monitor. Dr. Celaya at nurse station, informed patient's hemoglobin level is 6.7, Dr. Celaya acknowledged, no new orders given, continue to monitor at this time. Noted. Will continue to monitor patient.
[2020-08-12] MEDS: Heparin 5000 units/ml inj SUBQ SCH ×2 (09:00→20:11)
--- NOTE | 2020-08-12 09:09 | General Progress Note ---
Assessment/Plan Problem List: (1) Pneumonia ICD Codes: J18.9 - Pneumonia, unspecified organism SNOMED: 720298832 Qualifiers: Qualified Codes: J18.9 - Pneumonia, unspecified organism (2) Sickle cell anemia ICD Codes: D57.1 - Sickle-cell disease without crisis SNOMED: 217176297 Qualifiers: Qualified Codes: D57.00 - Hb-SS disease with crisis, unspecified (3) Severe sepsis ICD Codes: A41.9 - Sepsis, unspecified organism; R65.20 - Severe sepsis without septic shock SNOMED: 79322278 Status: stable, not improved Assessment/Plan: cont current rx vent support iv abx cultures reviewed 2d echo monitor cxr keep dry ivf monitor labs replace replace lytes as needed transfuse prn Subjective ROS Limited/Unobtainable: No Constitutional: Reports: malaise, weakness HEENT: Reports: no symptoms Cardiovascular: Reports: no symptoms Respiratory: Reports: shortness of breath, sputum Gastrointestinal/Abdominal: Reports: difficulty swallowing Genitourinary: Reports: no symptoms Neurologic/Psychiatric: Reports: pre-existing deficit, seizure Endocrine: Reports: no symptoms Hematologic/Lymphatic: Reports: anemia Allergies: Coded Allergies: ADHESIVE TAPE (Verified Allergy, Unknown, 07/20/20) Uncoded Allergies: TAPE (Allergy, Unknown, 08/07/20) All Systems: reviewed and negative except above Subjective no events. more alert. s/p GT change. no fevers or chills. no sob. labs pending Objective Last 24 Hour Vital Signs Date Time Temp Pulse Resp B/P (MAP) Pulse Ox O2 Delivery O2 Flow Rate FiO2 08/12/20 04:00 Mechanical Ventilator Mechanical Ventilator 08/12/20 04:00 40 08/12/20 04:00 98.2 87 18 115/66 (82) 97 08/12/20 03:36 101 08/12/20 03:02 116 23 40 08/12/20 02:35 89 16 119/69 (86) 99 08/12/20 02:32 98.0 08/12/20 02:02 98 18 123/73 (90) 98 08/12/20 00:00 Mechanical Ventilator Mechanical Ventilator 08/12/20 00:00 40 08/12/20 00:00 98.0 89 18 106/68 (81) 96 9/11/20 23:31 75 08/11/20 23:26 106 23 40 08/11/20 20:00 40 08/11/20 20:00 Mechanical Ventilator Mechanical Ventilator 08/11/20 20:00 98.1 74 18 118/63 (81) 100 08/11/20 19:47 71 18 40 08/11/20 19:44 76 08/11/20 16:07 98.2 71 20 129/75 (93) 100 08/11/20 16:00 68 08/11/20 16:00 Mechanical Ventilator Mechanical Ventilator 08/11/20 16:00 40 08/11/20 14:30 76 18 40 08/11/20 12:00 87 08/11/20 12:00 Mechanical Ventilator Mechanical Ventilator 08/11/20 12:00 98.2 84 16 116/62 (80) 96 08/11/20 12:00 40 08/11/20 10:44 92 18 40 Intake and Output 08/11/20 08/12/20 19:00 07:00 Intake Total 1482.416 ml 1758.416 ml Output Total 1320 ml 1150 ml Balance 162.416 ml 608.416 ml Free Water 50 ml IV Total 1322.416 ml 1268.416 ml Tube Feeding 160 ml 440 ml Output Urine Total 1200 ml 1000 ml Stool Total 120 ml 150 ml # Bowel Movements 1 Height (Feet): 5 Height (Inches): 10.00 Weight (Pounds): 112 Objective General Appearance: WD/WN, lethargic EENT: normal ENT inspection Neck: normal alignment Cardiovascular: normal peripheral pulses, normal rate Respiratory/Chest: chest wall non-tender, lungs clear, normal breath sounds Abdomen: normal bowel sounds, non tender, soft, no organomegaly Edema: no edema noted Arm (L), no edema noted Arm (R) Neurologic: unresponsive Lalo Celaya MD Aug 12, 2020 09:09
[2020-08-12] MEDS: Hydroxyurea 500mg cap ORAL SCH (09:43)
[2020-08-12] MEDS: Vancomycin 1 GM in D5W 275 ML IVPB SCH ×2 (09:43→20:17)
--- NOTE | 2020-08-12 10:45 | NUR ---
NURSE NOTES: Patient refused rectal tube.
--- NOTE | 2020-08-12 11:00 | NUR ---
NURSE NOTES: RT and nurse noted that patient's trach is unable to be inflated. Patient tolerating current vent settings, no distress noted, trach site is secured. Called and left message with Dr. Nuñez regarding situation. Kept patient safe at all times. Awaiting MD call back. Will continue to monitor patient.
--- NOTE | 2020-08-12 11:19 | NUR ---
NURSE NOTES: Spoke with Dr Nuñez made aware balloon on trach deflated even after inflated with air, with new order to rt exchange trach. Rt made aware.
--- NOTE | 2020-08-12 11:32 | NUR ---
CARDIOLOGY ECHO REPORT: Technically difficult study due to the patient's breathing tube. Normal left ventricular chamber size, systolic function and wall motion. Left ventricular ejection fraction estimated to be 65 % No evidence of left ventricular hypertrophy. Possible small posterior pericardial effusion. All other cardiac chamber sizes are within normal limits. Mild focal aortic valve sclerosis with adequate cusp excursion. Mildly thickened mitral valve leaflets with normal excursion. Mild mitral annulus and aortic root calcification. Pulmonic valve not well visualized. Normal tricuspid valve structure. IVC at normal size without physiologic collapse. A color flow and spectral Doppler study was performed and revealed: No aortic regurgitation. No mitral regurgitation. Mitral inflow velocities indicates possible pseudo normalization pattern implying moderately elevated left atrial pressure (Grade II ). Trace tricuspid regurgitation. Tricuspid systolic velocities suggests peak right ventricular systolic pressure of 32 mmHg.
[2020-08-12 11:44] LABS: ALANINE AMINOTRANSFERASE 48 U/L (12-78); ALBUMIN 2.3 G/DL (3.4-5.0); ALBUMIN/GLOBULIN RATIO 0.5 (1.0-2.7); ALKALINE PHOSPHATASE 528 U/L (46-116); ANION GAP 8 mmol/L (5-15); ASPARTATE AMINO TRANSFERASE 49 U/L (15-37); BLOOD UREA NITROGEN 6 mg/dL (7-18); CALCIUM 9.5 MG/DL (8.5-10.1); CARBON DIOXIDE 25 MMOL/L (21-32); CHLORIDE 110 MMOL/L (98-107); CREATININE 0.6 MG/DL (0.55-1.30); POTASSIUM 3.9 MMOL/L (3.5-5.1); SODIUM 143 MMOL/L (136-145)
[2020-08-12] MEDS: D5 1/2NS 1,000 ML IV SCH ×2 (12:21→22:01)
--- NOTE | 2020-08-12 12:21 | Surgery Progress Note ---
Surgery Progress Note Subjective Additional Comments awake, alert, with family on face time. no complaints anemia, wbc elevated clinically comfortable tube feeds plan trach [facility] to [facility] Objective Last 24 Hour Vital Signs Date Time Temp Pulse Resp B/P (MAP) Pulse Ox O2 Delivery O2 Flow Rate FiO2 08/12/20 08:00 Mechanical Ventilator Mechanical Ventilator 08/12/20 08:00 98.4 76 20 119/54 (75) 100 08/12/20 08:00 40 08/12/20 08:00 79 08/12/20 04:00 Mechanical Ventilator Mechanical Ventilator 08/12/20 04:00 40 08/12/20 04:00 98.2 87 18 115/66 (82) 97 08/12/20 03:36 101 08/12/20 03:02 116 23 40 08/12/20 02:35 89 16 119/69 (86) 99 08/12/20 02:32 98.0 08/12/20 02:02 98 18 123/73 (90) 98 08/12/20 00:00 Mechanical Ventilator Mechanical Ventilator 08/12/20 00:00 40 08/12/20 00:00 98.0 89 18 106/68 (81) 96 08/11/20 23:31 75 08/11/20 23:26 106 23 40 08/11/20 20:00 40 08/11/20 20:00 Mechanical Ventilator Mechanical Ventilator 08/11/20 20:00 98.1 74 18 118/63 (81) 100 08/11/20 19:47 71 18 40 08/11/20 19:44 76 08/11/20 16:07 98.2 71 20 129/75 (93) 100 08/11/20 16:00 68 08/11/20 16:00 Mechanical Ventilator Mechanical Ventilator 08/11/20 16:00 40 08/11/20 14:30 76 18 40 I&O Intake and Output 08/11/20 08/12/20 19:00 07:00 Intake Total 1482.416 ml 1758.416 ml Output Total 1320 ml 1150 ml Balance 162.416 ml 608.416 ml Free Water 50 ml IV Total 1322.416 ml 1268.416 ml Tube Feeding 160 ml 440 ml Output Urine Total 1200 ml 1000 ml Stool Total 120 ml 150 ml # Bowel Movements 1 Dressing: dry Wound: clean Cardiovascular: RSR Respiratory: clear Abdomen: soft, non-tender, present bowel sounds Extremities: no edema, no tenderness, no cyanosis Laboratory Tests Test 08/12/20 11:00 Sodium Level 143 MMOL/L (136-145) Potassium Level 3.9 MMOL/L (3.5-5.1) Chloride Level 110 MMOL/L (98-107) H Carbon Dioxide Level 25 MMOL/L (21-32) Anion Gap 8 mmol/L (5-15) Blood Urea Nitrogen 6 mg/dL (7-18) L Creatinine 0.6 MG/DL (0.55-1.30) Estimat Glomerular Filtration Rate > 60 mL/min (>60) Glucose Level 100 MG/DL (74-106) Calcium Level 9.5 MG/DL (8.5-10.1) Magnesium Level 1.4 MG/DL (1.8-2.4) L Total Bilirubin 1.0 MG/DL (0.2-1.0) Aspartate Amino Transf (AST/SGOT) 49 U/L (15-37) H Alanine Aminotransferase (ALT/SGPT) 48 U/L (12-78) Alkaline Phosphatase 528 U/L (46-116) H Total Protein 7.4 G/DL (6.4-8.2) Albumin 2.3 G/DL (3.4-5.0) L Globulin 5.1 g/dL Albumin/Globulin Ratio 0.5 (1.0-2.7) L Plan Problems: (1) Pneumonia (2) Sickle cell anemia (3) Tachycardia (4) Severe sepsis (5) Sickle cell crisis (6) Sepsis Assessment & Plan: 35-year-old male sickle cell multiple comorbidities history of craniotomy trach feeding tube prior port infected removed see prior admission and consult and operative notes. Currently presents with significant leukocytosis fevers hypotension in intensive care unit wound site evaluated unlikely etiology. Trach evaluated may consider changing. LFTs noted elevated. Ultrasound ordered pending results trend labs continue IV antibiotics appreciate infectious disease input will follow with recommendations thank you for let me participate in patient's care KUB and US noted labs reviewed transfuse prbc prn trach change peg changed pulmonary arteries: Evaluation for pulmonary embolus is limited due to breathing motion artifact. No central pulmonary emboli are identified. Aorta: No acute findings. No thoracic aortic aneurysm. Lungs: There are moderately consolidating infiltrates identified in both lower lobes dependently with mild additional patchy infiltrates dependently in both upper lobes. The findings are consistent with bilateral nonspecific pneumonia. Aspiration pneumonia could give this appearance. The infiltrates are only somewhat typical of Covid 19. Confidence is immediate. Pleural space: Unremarkable. No significant effusion. No pneumothorax. Heart: Unremarkable. No cardiomegaly. No significant pericardial effusion. No evidence of RV dysfunction. Bones/joints: No acute fracture. No dislocation. Soft tissues: Unremarkable. Lymph nodes: Unremarkable. No enlarged lymph nodes. Tubes, lines and devices: There is a tracheostomy tube in good position. IMPRESSION: 1. There are moderately consolidating infiltrates identified in both lower lobes dependently with mild additional patchy infiltrates dependently in both upper lobes. The findings are consistent with bilateral nonspecific pneumonia. Aspiration pneumonia could give this appearance. The infiltrates are only somewhat typical of Covid 19. Confidence is immediate. 2. Evaluation for pulmonary embolus is limited due to breathing motion artifact. No central pulmonary emboli are identified. (7) Port-A-Cath in place Assessment & Plan: prior removal for infection site okay dressings changed no active infection from wound Harman Zhao Aug 12, 2020 12:21
--- NOTE | 2020-08-12 12:30 | NUR ---
NURSE NOTES: Trach tube changed at bedside by RT as ordered by Dr. Nuñez, no x-ray need per Dr. Nuñez. Noted. Trach tube changed to Shiley 6, patient tolerated procedure. Will continue to monitor patient.
--- NOTE | 2020-08-12 12:35 | NUR ---
RESPIRATORY NOTE: Per Dr. Nuñez's order, trach tube changed due to busted cuff and pt not getting enough volume. Per phone order from JANY Cramer to change from portex 6 to shiley 6 cuffed. Successful trach tube change, pt getting good volumes from 500-650's. Suction to small to moderate thick yellow secretions, minimal to no bleeding. Assisted by RN Jose Manuel and RN Zofia, RT Mary, RT Jozef, RT Eugenia. Will continue to monitor.
--- NOTE | 2020-08-12 13:34 | Critical Care Progress Note ---
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 Port-A-Cath Status post removal of implanted right chest wall Port-A-Cath Sickle cell crisis Sickle cell anemia Chronic respiratory failure, ventilator dependent, with tracheostomy status Transaminitis Seizure disorder acute pneumonia leukocytosis recurrent sepsis PLAN care noted IV antibiotics noted respiratory care Ventilatory support- pressure control; repeat ABG and consider change back to volume control SNF meds supportive care suction no wean planned oxygen therapy and titrate prognosis guarded ID follow up and recommendations medications/laboratory data/nursing notes reviewed in detail note reviewed and edited care discussed with RN and RT Critical Care - Subjective Interval Events: care noted issues with balloon on trach per RT to replace ROS Limited/Unobtainable: Yes EKG Rhythm: Sinus Rhythm Residuals: minimal Tube Feeding Tolerated: yes I&O: Intake and Output 08/11/20 08/12/20 19:00 07:00 Intake Total 1482.416 ml 1758.416 ml Output Total 1320 ml 1150 ml Balance 162.416 ml 608.416 ml Free Water 50 ml IV Total 1322.416 ml 1268.416 ml Tube Feeding 160 ml 440 ml Output Urine Total 1200 ml 1000 ml Stool Total 120 ml 150 ml # Bowel Movements 1 Critical Care - Objective Last 24 Hour Vital Signs Date Time Temp Pulse Resp B/P (MAP) Pulse Ox O2 Delivery O2 Flow Rate FiO2 08/12/20 12:00 40 08/12/20 12:00 Mechanical Ventilator Mechanical Ventilator 08/12/20 11:40 68 18 40 08/12/20 08:00 Mechanical Ventilator Mechanical Ventilator 08/12/20 08:00 98.4 76 20 119/54 (75) 100 08/12/20 08:00 40 08/12/20 08:00 79 08/12/20 07:11 73 18 40 08/12/20 04:00 Mechanical Ventilator Mechanical Ventilator 08/12/20 04:00 40 08/12/20 04:00 98.2 87 18 115/66 (82) 97 08/12/20 03:36 101 08/12/20 03:02 116 23 40 08/12/20 02:35 89 16 119/69 (86) 99 08/12/20 02:32 98.0 08/12/20 02:02 98 18 123/73 (90) 98 08/12/20 00:00 Mechanical Ventilator Mechanical Ventilator 08/12/20 00:00 40 08/12/20 00:00 98.0 89 18 106/68 (81) 96 08/11/20 23:31 75 08/11/20 23:26 106 23 40 08/11/20 20:00 40 08/11/20 20:00 Mechanical Ventilator Mechanical Ventilator 08/11/20 20:00 98.1 74 18 118/63 (81) 100 08/11/20 19:47 71 18 40 08/11/20 19:44 76 08/11/20 16:07 98.2 71 20 129/75 (93) 100 08/11/20 16:00 68 08/11/20 16:00 Mechanical Ventilator Mechanical Ventilator 08/11/20 16:00 40 08/11/20 14:30 76 18 40 Labs: Laboratory Tests 08/12/20 11:00: Sodium Level 143, Potassium Level 3.9, Chloride Level 110H, Carbon Dioxide Level 25, Anion Gap 8, Blood Urea Nitrogen 6L, Creatinine 0.6, Estimat Glomerular Filtration Rate > 60, Glucose Level 100, Calcium Level 9.5, Magnesium Level 1.4L, Total Bilirubin 1.0, Aspartate Amino Transf (AST/SGOT) 49H , Alanine Aminotransferase (ALT/SGPT) 48, Alkaline Phosphatase 528H, Total Protein 7.4, Albumin 2.3L, Globulin 5.1, Albumin/Globulin Ratio 0.5L Objective: WDWN NAD reduced breath sounds bilaterally without rhonchi or wheeze [id number] without MRG NABS nontender GT no CCE reduced LOC James Nuñez MD Aug 12, 2020 13:34
--- NOTE | 2020-08-12 13:49 | NUR ---
CASE MANAGEMENT:REVIEW SI;GRAM NEG SEPSIS. PNEUMONITIS. 98.4 116 20 119/54 97% TRACH/VENT FIO2 @ 40% CL 110 BUN 6 MAG 1.4 AST 49 ALP 528 ALB 2.3 IS;MEROPENEM IV Q8 VANCOMYCIN IV Q12 KEPPRA GT Q12 MORPHINE IV Q4 PRN PEPCID GT QD BACLOFEN GT TID IVF D5/NS @ 75 ML/HR HARRIET STATUS DCP;FROM [facility]
--- NOTE | 2020-08-12 15:00 | NUR ---
NURSE NOTES: Contacted and informed Dr. Celaya that patient's new magnesium level today is 1.4. Dr. Celaya acknowledge and ordered magnesium sulfate 1 gm IV x 2. No magnesium lab ordered. Noted. Will continue to monitor patient.
--- NOTE | 2020-08-12 15:23 | NUR ---
NURSE NOTES: Contacted and informed Dr. Nuñez of patient's new ABG results of: pH 7.455, pCO2 29.6, pO2 69.6, HCO3 20.3, O2 saturation 90.8 with Vent settings of ACPC 18, FiO2 40%, insipraorty airway pressure setting 45. Patient noted with no SOB, SpO2 97. Dr. Nuñez acknowledged and gave now new orders at this time. Will continue to monitor patient.
--- NOTE | 2020-08-12 17:03 | General Progress Note ---
Assessment/Plan Status: stable, not improved Assessment/Plan: Assessment - occluded GT - replaced - abnormal LFT, ? etiology, ? sickle hepatopathy +/- sepsis - sickle cell - leukocytosis/PNA/Sepsis - seizure d/o - s/p trach and PEG Recommendations - Continue TF - GT care - Elevate HOB - check GABINO/AMA/hepatitis serologies - hydration Subjective Allergies: Coded Allergies: ADHESIVE TAPE (Verified Allergy, Unknown, 07/20/20) Uncoded Allergies: TAPE (Allergy, Unknown, 08/07/20) Subjective comfortable tolerating TF d/w RN Objective Last 24 Hour Vital Signs Date Time Temp Pulse Resp B/P (MAP) Pulse Ox O2 Delivery O2 Flow Rate FiO2 08/12/20 16:00 40 08/12/20 15:59 73 08/12/20 15:30 74 18 40 08/12/20 12:00 98.4 81 20 117/78 (91) 100 08/12/20 12:00 40 08/12/20 12:00 Mechanical Ventilator Mechanical Ventilator 08/12/20 12:00 67 08/12/20 11:40 68 18 40 08/12/20 08:00 Mechanical Ventilator Mechanical Ventilator 08/12/20 08:00 98.4 76 20 119/54 (75) 100 08/12/20 08:00 40 08/12/20 08:00 79 08/12/20 07:11 73 18 40 08/12/20 04:00 Mechanical Ventilator Mechanical Ventilator 08/12/20 04:00 40 08/12/20 04:00 98.2 87 18 115/66 (82) 97 08/12/20 03:36 101 08/12/20 03:02 116 23 40 08/12/20 02:35 89 16 119/69 (86) 99 08/12/20 02:32 98.0 08/12/20 02:02 98 18 123/73 (90) 98 08/12/20 00:00 Mechanical Ventilator Mechanical Ventilator 08/12/20 00:00 40 08/12/20 00:00 98.0 89 18 106/68 (81) 96 08/11/20 23:31 75 08/11/20 23:26 106 23 40 08/11/20 20:00 40 08/11/20 20:00 Mechanical Ventilator Mechanical Ventilator 08/11/20 20:00 98.1 74 18 118/63 (81) 100 08/11/20 19:47 71 18 40 08/11/20 19:44 76 Intake and Output 08/11/20 08/12/20 19:00 07:00 Intake Total 1482.416 ml 1758.416 ml Output Total 1320 ml 1150 ml Balance 162.416 ml 608.416 ml Free Water 50 ml IV Total 1322.416 ml 1268.416 ml Tube Feeding 160 ml 440 ml Output Urine Total 1200 ml 1000 ml Stool Total 120 ml 150 ml # Bowel Movements 1 Laboratory Tests 08/12/20 11:00: Sodium Level 143, Potassium Level 3.9, Chloride Level 110H, Carbon Dioxide Level 25, Anion Gap 8, Blood Urea Nitrogen 6L, Creatinine 0.6, Estimat Glomerular Filtration Rate > 60, Glucose Level 100, Calcium Level 9.5, Magnesium Level 1.4L, Total Bilirubin 1.0, Aspartate Amino Transf (AST/SGOT) 49H , Alanine Aminotransferase (ALT/SGPT) 48, Alkaline Phosphatase 528H, Total Protein 7.4, Albumin 2.3L, Globulin 5.1, Albumin/Globulin Ratio 0.5L 08/12/20 14:27: Arterial Blood pH 7.455H, Arterial Blood Partial Pressure CO2 29.6L, Arterial Blood Partial Pressure O2 69.6L, Arterial Blood HCO3 20.3L, Arterial Blood Oxygen Saturation 90.8L, Arterial Blood Base Excess -3.1L, Iglesia Test Positive Height (Feet): 5 Height (Inches): 10.00 Weight (Pounds): 112 Objective Thin AA Man HEENT s/p crainiotomy neck (+) trach Coarse BS RR abd soft (+) GT no edema Nasrin Stiles MD Aug 12, 2020 17:03
--- NOTE | 2020-08-12 19:16 | NUR ---
NURSE NOTES: Received report from Jose Manuel RN, pt. in bed awake- watching television- appears to be alert x's 3-4- no signs or symptoms of acute cardiac or respiratory distress noted, pt. appears to be tolerating current vent settings as ordered by MD- no distress noted, G tube running Glucerna 1.5 at 40cc/hr- no residual noted, side rails padded for seizure precautions- no seizure activity noted, Overton intact and draining to gravity, pt. appears clean and dry, Right femoral TLC intact and patent- running D5 1/2 NS at 75cc/hr, safety measures continued, will continue with plan of care.
--- NOTE | 2020-08-12 19:23 | NUR ---
NURSE HAND-OFF REPORT: Important Events on Shift: Patient Status: Stable Diet: Glucerna 1.5 40 ml/hr Pending Orders: None Pending Results/Labs:None Pending MD notification:None Latest Vital Signs: Temperature 99.3 , Pulse 78 , B/P 126 /75 , Respiratory Rate 18 , O2 SAT 100 , Mechanical Ventilator, O2 Flow Rate . Vital Sign Comment: Stable EKG Rhythm: Sinus Rhythm Rhythm change?: N MD Notified?: N -Dr Regan JIMENEZ Response: Latest Stevens Fall Score: 70 Fall Risk: High Risk Safety Measures: Call light Within Reach, Bed Alarm Zone 3, Side Rails Side Rails x3, Bed position Low and Locked. Fall Precautions: Yellow Socks Door Sign Patient Fall Education Report given to ARLYN Lee.
[2020-08-12] MEDS: Dyna-Hex 2% Top Sol 2oz TOPIC SCH (20:17)
--- NOTE | 2020-08-12 21:40 | NUR ---
NURSE NOTES: during rounding noted pt. have labored breathing - heart rate trending up from 140's- 170's- respiratory therapist at bedside, no seizure activity noted- pt. sating between- 97-100% on pulse ox monitor- pt. appears to be anxious- will administer Ativan as order per MD- will continue to monitor and notify MD.
--- NOTE | 2020-08-12 22:00 | NUR ---
NURSE NOTES: left message for DR. Celaya- regarding change in pt. condition- labored breathing- heart rate trending up to 170's- EKG done showing Sinus Tachycardia 176- awaiting for call back from doctor- will continue to monitor pt. and with sepulveda of care.
--- NOTE | 2020-08-12 22:32 | NUR ---
NURSE NOTES: left message for DR. Nuñez regarding pt. having labored breathing- heart rate in 170's- awaiting for call back from doctor.
--- NOTE | 2020-08-12 22:41 | NUR ---
NURSE NOTES: per DR. Nuñez to give pt. Morphine 2mg IVP for mild pain Q3hrs and for moderate pain 4mg IVP Q3hrs prn- per doctor aware that i have administered Morphine 2mg at 2030pm and okay to give morphine 4mg now- orders carried out.
--- NOTE | 2020-08-12 22:50 | NUR ---
NURSE NOTES: [facility] to verify morphine medication- stat- awaiting for medication to be verified.
[2020-08-12] MEDS ORDERED: Morphine Sulfate 4mg/ml Inj (IV USE ONLY) IVP PRN (23:00)
--- NOTE | 2020-08-12 23:27 | NUR ---
NURSE NOTES: 2nd call left for DR. Celaya regarding- regarding labored breathing and heart rate sustaining in 170's- awaiting for call back from doctor.
--- NOTE | 2020-08-12 23:40 | NUR ---
NURSE NOTES: reassessed pt. after Morphine administration-heart rate appears to be trending down to 150's-from 170's no grimacing noted-will continue to monitor pt. and with plan of care.
--- NOTE | 2020-08-12 23:40 | NUR ---
NURSE NOTES: assessed pt.- noted to be warm to touch- temp taken - 102.4 axillary- cooling measures provided and Tylenol administration as ordered per MD- will continue to monitor pt. and with plan of care.
[2020-08-12] MEDS: Acetaminophen 650mg/20.3ml GT PRN (23:42)
[2020-08-13] VITALS (11 sets, daily range): BP systolic 84–169; BP diastolic 49–84
--- NOTE | 2020-08-13 00:25 | NUR ---
NURSE NOTES: house nurse utilities and maintenance supervisor notified regarding- unable to reach DR. Celaya- per house calls nurse practitioner to wait and monitor pt. - before calling DR. Glass.
--- NOTE | 2020-08-13 00:35 | NUR ---
NURSE NOTES: reassessed temp now 100.8- heart rate appears to be trending down now to 130's- will continue to monitor pt. and with plan of care.
--- NOTE | 2020-08-13 01:00 | NUR ---
NURSE NOTES: full bed bath given- linens changed completely, oral care and suction provided, repositioned and turned pt.- will continue to monitor pt. and with plan of care.
--- NOTE | 2020-08-13 02:07 | NUR ---
NURSE NOTES: reassessed pt. - pt. appears to be sleeping- pulse ox 97% b/p 108/62, resp 28, pulse now in 120's, temp 99.0- will continue to monitor pt. and with plan of care.
--- NOTE | 2020-08-13 02:42 | NUR ---
NURSE NOTES: reassessed pt.- vital signs taken and noted in chart- pt. appears to be resting comfortably- heart rate trending down to 120's- 130's- and temp also trending down now 98.1 axillary- will continue to monitor pt. and with plan of care.
--- NOTE | 2020-08-13 03:43 | NUR ---
NURSE NOTES: temp reassessed oral temp now 98.1- pt. remains stable and appears to be sleeping comfortably- heart rate in 120's- 130's- will continue to monitor pt. and with plan of care.
--- NOTE | 2020-08-13 04:55 | NUR ---
NURSE NOTES: reassessed pt. - heart rate in 120's- b/p 98/62, temp remains 98.1- orally- pt. appears to be resting comfortably- sleeping, Asymptomatic- no signs or symptoms of distress noted- will continue to monitor pt. and with plan of care.
[2020-08-13] MEDS: Meropenem 1 GM in NS 55 ML IVPB SCH ×2 (05:01→13:07)
--- NOTE | 2020-08-13 05:04 | NUR ---
NURSE NOTES: pt. awake in bed now- during med pass- pt. nodding stating he feels okay- will continue to monitor pt. and with plan of care.
--- NOTE | 2020-08-13 06:23 | NUR ---
NURSE NOTES: assessed pt.- remains stable- heart rate trending down- now 116- fever free- will continue to monitor pt. and with plan of care.
--- NOTE | 2020-08-13 06:54 | NUR ---
NURSE HAND-OFF REPORT: Important Events on Shift: SR- ST 180's- unable to reach DR. Celaya - called DR. Nuñez regarding labored breathing- see notes Patient Status: stable Diet: Glucerna 1.5 at 40cc/hr Pending Orders: Pending Results/Labs: Pending MD notification: Latest Vital Signs: Temperature 98.1 , Pulse 130 , B/P 100 /54 , Respiratory Rate 24 , O2 SAT 97 , Mechanical Ventilator, O2 Flow Rate . Vital Sign Comment: EKG Rhythm: Sinus Tachycardia Rhythm change?: Y MD Notified?: left message awaiting for call- am nurse aware to f/u MD Response: Latest Stevens Fall Score: 70 Fall Risk: High Risk Safety Measures: Call light Within Reach, Bed Alarm Zone 3, Side Rails Side Rails x3, Bed position Low and Locked. Fall Precautions: Yellow Socks Door Sign Patient Fall Education Report given to Jose Manuel RN pt. remains stable a asymptotic, and no signs of symptoms noted-aware to f/u on any abnormal am labs and with doctor regarding tachycardia- and labored breathing- EKG done Sinus Tachycardia.
--- NOTE | 2020-08-13 07:02 | NUR ---
NURSE NOTES: Received report from ARLYN Lee. Patient resting in bed, in stable condition. Per night order selector report patient had episode of SOB and pain medicatons were given, PRN pain medications alleviated SOB, Dr. Nuñez notified and new instructions for PRN pain medications given. Patient on vent with vent settings as ordered, patient tolerating, no SOB noted. Patient is sleeping, no presence of pain or discomfort noted at this time. Bed is in lowest position, brakes engaged. Call light is kept within easy reach. Will continue to monitor patient.
--- NOTE | 2020-08-13 07:52 | NUR ---
NURSE NOTES: Called and left message with Dr. Edmundo Kemp, regarding patient is positive for MDR sputum; patient is on vancomycin per pharmacy and meropenem 1 gm IV Q8HR. Awaiting call back. Will continue to monitor patient.
--- NOTE | 2020-08-13 08:45 | NUR ---
NURSE NOTES: Dr. Celaya seen and examined patient at bedside, informed Dr. Celaya that patient's current blood pressure is 81/54, more lethargic than yesterday. Dr. Celaya acknowledged and gave now new orders at this time. Will continue to monitor patient. Addendum: 08/13/20 at 1529 by MARGARET YU RN NURSE NOTES: Correction: "No new orders at this time."
[2020-08-13] MEDS: Heparin 5000 units/ml inj SUBQ SCH ×2 (09:00→20:14)
--- NOTE | 2020-08-13 09:00 | NUR ---
NURSE NOTES: Called and informed Dr. Edmundo Kemp that patient is positive for MDR sputum and is on vancomycin per pharmacy and Meropenem 1 gm IV Q8HR, also informed MD that patient become hypotensive as low as 81/54. Currently blood pressure is 100/62. Dr. Edmundo Kemp acknowledged and gave no new orders at this time. Will continue to monitor patient.
--- NOTE | 2020-08-13 09:30 | NUR ---
NURSE NOTES: Patient's blood pressure is now 105/63 HR 110, alert and oriented x 3, drowsy. Noted. Will continue to monitor patient.
[2020-08-13] MEDS: Vancomycin 1 GM in D5W 275 ML IVPB SCH (10:46)
[2020-08-13 11:19] LABS: ANION GAP 12 mmol/L (5-15); BLOOD UREA NITROGEN 18 mg/dL (7-18); CALCIUM 8.1 MG/DL (8.5-10.1); CARBON DIOXIDE 22 MMOL/L (21-32); CHLORIDE 107 MMOL/L (98-107); CREATININE 1.3 MG/DL (0.55-1.30); POTASSIUM 4.4 MMOL/L (3.5-5.1); SODIUM 141 MMOL/L (136-145)
[2020-08-13 11:29] LABS: ALANINE AMINOTRANSFERASE 80 U/L (12-78); ALBUMIN/GLOBULIN RATIO 0.4 (1.0-2.7); ALKALINE PHOSPHATASE 556 U/L (46-116); ASPARTATE AMINO TRANSFERASE 113 U/L (15-37); BILIRUBIN,TOTAL 1.3 MG/DL (0.2-1.0)
[2020-08-13 11:30] LABS: BILIRUBIN,DIRECT 0.8 MG/DL (0.0-0.3)
--- NOTE | 2020-08-13 11:53 | General Progress Note ---
Assessment/Plan Problem List: (1) Pneumonia ICD Codes: J18.9 - Pneumonia, unspecified organism SNOMED: 851838193 Qualifiers: Qualified Codes: J18.9 - Pneumonia, unspecified organism (2) Sickle cell anemia ICD Codes: D57.1 - Sickle-cell disease without crisis SNOMED: 789188588 Qualifiers: Qualified Codes: D57.00 - Hb-SS disease with crisis, unspecified (3) Severe sepsis ICD Codes: A41.9 - Sepsis, unspecified organism; R65.20 - Severe sepsis without septic shock SNOMED: [id number] Status: stable, not improved Assessment/Plan: cont current rx vent support iv abx cultures reviewed 2d echo monitor cxr keep dry ivf monitor labs replace replace lytes as needed transfuse prn ct chest/abd/pelvis Subjective ROS Limited/Unobtainable: No Constitutional: Reports: malaise, weakness HEENT: Reports: no symptoms Respiratory: Reports: shortness of breath Gastrointestinal/Abdominal: Reports: difficulty swallowing Genitourinary: Reports: no symptoms Neurologic/Psychiatric: Reports: pre-existing deficit, seizure Endocrine: Reports: no symptoms Hematologic/Lymphatic: Reports: anemia Allergies: Coded Allergies: ADHESIVE TAPE (Verified Allergy, Unknown, 07/20/20) Uncoded Allergies: TAPE (Allergy, Unknown, 08/07/20) All Systems: reviewed and negative except above Subjective Had an episode of tachycardia and shortness of breath last night. More comfortable after receiving a dose of morphine. Sleepy but awake. Labs reviewed. Persistent leukocytosis noted. On IV antibiotics. Objective Last 24 Hour Vital Signs Date Time Temp Pulse Resp B/P (MAP) Pulse Ox O2 Delivery O2 Flow Rate FiO2 08/13/20 08:00 Mechanical Ventilator 08/13/20 08:00 40 08/13/20 08:00 98.1 111 20 84/49 (61) 99 111 08/13/20 08:00 113 08/13/20 04:00 40 08/13/20 04:00 Mechanical Ventilator 08/13/20 03:44 98.1 130 24 100/54 (69) 97 08/13/20 03:06 129 08/13/20 03:05 133 28 40 08/13/20 02:41 98.1 128 24 107/69 (82) 97 08/13/20 01:40 99.8 131 26 98/60 (73) 97 08/13/20 00:12 100.8 08/13/20 00:00 Mechanical Ventilator 08/13/20 00:00 102.4 168 28 139/82 (101) 100 08/13/20 00:00 40 08/12/20 23:42 176 08/12/20 23:07 170 28 138/79 (98) 99 08/12/20 22:57 119 32 40 08/12/20 22:28 160 18 135/75 96 08/12/20 21:58 145 18 143/87 100 08/12/20 21:00 98.1 08/12/20 20:00 98.1 72 18 137/76 (96) 100 08/12/20 20:00 Mechanical Ventilator 08/12/20 20:00 40 08/12/20 19:30 69 08/12/20 18:54 78 22 40 08/12/20 16:00 99.3 78 18 126/75 (92) 100 08/12/20 16:00 Mechanical Ventilator 08/12/20 16:00 40 08/12/20 15:59 73 08/12/20 15:30 74 18 40 08/12/20 12:00 98.4 81 20 117/78 (91) 100 08/12/20 12:00 40 08/12/20 12:00 Mechanical Ventilator Mechanical Ventilator 08/12/20 12:00 67 Intake and Output 08/12/20 08/13/20 19:00 07:00 Intake Total 855 ml 1825.416 ml Output Total 1500 ml 1150 ml Balance -645 ml 675.416 ml Free Water 300 ml 50 ml IV Total 75 ml 1335.416 ml Tube Feeding 480 ml 440 ml Output Urine Total 1500 ml 1150 ml # Bowel Movements 2 4 Laboratory Tests 08/12/20 14:27: Arterial Blood pH 7.455H, Arterial Blood Partial Pressure CO2 29.6L, Arterial Blood Partial Pressure O2 69.6L, Arterial Blood HCO3 20.3L, Arterial Blood Oxygen Saturation 90.8L, Arterial Blood Base Excess -3.1L, Iglesia Test Positive 08/13/20 10:15: POC Whole Blood Glucose 99 08/13/20 10:50: Sodium Level 141, Potassium Level 4.4, Chloride Level 107, Carbon Dioxide Level 22, Anion Gap 12, Blood Urea Nitrogen 18, Creatinine 1.3#, Estimat Glomerular Filtration Rate > 60, Glucose Level 110H, Calcium Level 8.1L, Magnesium Level 1.6L, Total Bilirubin 1.3H, Direct Bilirubin 0.8H, Aspartate Amino Transf (AST/ SGOT) 113H, Alanine Aminotransferase (ALT/SGPT) 80H, Alkaline Phosphatase 556H, Total Protein 6.7, Albumin 2.0L, Globulin 4.7, Albumin/Globulin Ratio 0.4L Height (Feet): 5 Height (Inches): 10.00 Weight (Pounds): 112 Objective General Appearance: WD/WN, lethargic EENT: normal ENT inspection Neck: normal alignment Cardiovascular: normal peripheral pulses, normal rate Respiratory/Chest: chest wall non-tender, lungs clear, normal breath sounds Abdomen: normal bowel sounds, non tender, soft, no organomegaly Edema: no edema noted Arm (L), no edema noted Arm (R) Neurologic: unresponsive Lalo Celaya MD Aug 13, 2020 11:53
--- NOTE | 2020-08-13 13:00 | NUR ---
NURSE NOTES: Dr. nuñez seen and examined patient at bedside. Made Dr. Nuñez aware that patient is hypotensive, goes as low as 81/54 and blood pressure is currently 94/67 HR 102, patient more lethargic than yesterday, alert and oriented x2-[address] Nuñez noted secretions in suction canister. Dr. Nuñez acknowledged assessments and gave no new orders at this time. Will continue to monitor patient.
--- NOTE | 2020-08-13 13:03 | Critical Care Progress Note ---
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 Port-A-Cath Status post removal of implanted right chest wall Port-A-Cath Sickle cell crisis Sickle cell anemia Chronic respiratory failure, ventilator dependent, with tracheostomy status Transaminitis Seizure disorder acute pneumonia leukocytosis recurrent sepsis PLAN care noted IV antibiotics noted respiratory care Ventilatory support- pressure control; repeat ABG noted sedation as needed SNF meds supportive care suction no wean planned still ill; repeat cbc oxygen therapy and titrate prognosis guarded ID follow up and recommendations medications/laboratory data/nursing notes reviewed in detail note reviewed and edited care discussed with RN and RT Critical Care - Subjective Interval Events: reduced LOC on vent PIP at 45-50 Condition: unchanged EKG Rhythm: Sinus Rhythm I&O: Intake and Output 08/12/20 08/13/20 19:00 07:00 Intake Total 855 ml 1825.416 ml Output Total 1500 ml 1150 ml Balance -645 ml 675.416 ml Free Water 300 ml 50 ml IV Total 75 ml 1335.416 ml Tube Feeding 480 ml 440 ml Output Urine Total 1500 ml 1150 ml # Bowel Movements 2 4 Critical Care - Objective Last 24 Hour Vital Signs Date Time Temp Pulse Resp B/P (MAP) Pulse Ox O2 Delivery O2 Flow Rate FiO2 08/13/20 12:00 40 08/13/20 12:00 Mechanical Ventilator 08/13/20 12:00 97.5 102 20 102/57 (72) 99 102 08/13/20 12:00 101 08/13/20 08:00 Mechanical Ventilator 08/13/20 08:00 40 08/13/20 08:00 98.1 111 20 84/49 (61) 99 111 08/13/20 08:00 113 08/13/20 07:21 102 18 40 08/13/20 04:00 40 08/13/20 04:00 Mechanical Ventilator 08/13/20 03:44 98.1 130 24 100/54 (69) 97 08/13/20 03:06 129 08/13/20 03:05 133 28 40 08/13/20 02:41 98.1 128 24 107/69 (82) 97 08/13/20 01:40 99.8 131 26 98/60 (73) 97 08/13/20 00:12 100.8 08/13/20 00:00 Mechanical Ventilator 08/13/20 00:00 102.4 168 28 139/82 (101) 100 08/13/20 00:00 40 08/12/20 23:42 176 08/12/20 23:07 170 28 138/79 (98) 99 08/12/20 22:57 119 32 40 08/12/20 22:28 160 18 135/75 96 08/12/20 21:58 145 18 143/87 100 08/12/20 21:00 98.1 08/12/20 20:00 98.1 72 18 137/76 (96) 100 08/12/20 20:00 Mechanical Ventilator 08/12/20 20:00 40 08/12/20 19:30 69 08/12/20 18:54 78 22 40 08/12/20 16:00 99.3 78 18 126/75 (92) 100 08/12/20 16:00 Mechanical Ventilator 08/12/20 16:00 40 08/12/20 15:59 73 08/12/20 15:30 74 18 40 Labs: Laboratory Tests 08/12/20 14:27: Arterial Blood pH 7.455H, Arterial Blood Partial Pressure CO2 29.6L, Arterial Blood Partial Pressure O2 69.6L, Arterial Blood HCO3 20.3L, Arterial Blood Oxygen Saturation 90.8L, Arterial Blood Base Excess -3.1L, Iglesia Test Positive 08/13/20 10:15: POC Whole Blood Glucose 99 08/13/20 10:50: Sodium Level 141, Potassium Level 4.4, Chloride Level 107, Carbon Dioxide Level 22, Anion Gap 12, Blood Urea Nitrogen 18, Creatinine 1.3#, Estimat Glomerular Filtration Rate > 60, Glucose Level 110H, Calcium Level 8.1L, Magnesium Level 1.6L, Total Bilirubin 1.3H, Direct Bilirubin 0.8H, Aspartate Amino Transf (AST/ SGOT) 113H, Alanine Aminotransferase (ALT/SGPT) 80H, Alkaline Phosphatase 556H, Total Protein 6.7, Albumin 2.0L, Globulin 4.7, Albumin/Globulin Ratio 0.4L Objective: WDWN NAD reduced breath sounds bilaterally without rhonchi or wheeze [id number] without MRG NABS nontender GT no CCE reduced LOC James Nuñez MD Aug 13, 2020 13:03
[2020-08-13] MEDS: D5 1/2NS 1,000 ML IV SCH (13:07)
--- NOTE | 2020-08-13 14:37 | Infectious Diseases Prog Note ---
Assessment/Plan Assessment/Plan A: 1. MRSA sepsis. 2. Aspiration pneumonia MRSA, Pseudomonas & Serratia in culture COVID19 X 1: negative. 3. Leukemoid reaction. 4. Sickle cell disease. 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 VDRF 8. Port infection PLAN: 1. Continue IV vancomycin & Meropenem. 2. Add Coklistin inhaler Subjective ROS Limited/Unobtainable: Yes Constitutional: Reports: fever, other - last night Fk=753.4 Respiratory: Denies: dry cough, productive cough Musculoskeletal: Denies: pain Allergies: Coded Allergies: ADHESIVE TAPE (Verified Allergy, Unknown, 07/20/20) Uncoded Allergies: TAPE (Allergy, Unknown, 08/07/20) Objective Last 24 Hour Vital Signs Date Time Temp Pulse Resp B/P (MAP) Pulse Ox O2 Delivery O2 Flow Rate FiO2 08/13/20 12:00 40 08/13/20 12:00 Mechanical Ventilator 08/13/20 12:00 97.5 102 20 102/57 (72) 99 102 08/13/20 12:00 101 08/13/20 09:30 110 105/53 (70) 08/13/20 08:00 Mechanical Ventilator 08/13/20 08:00 40 08/13/20 08:00 98.1 111 20 84/49 (61) 99 111 08/13/20 08:00 113 08/13/20 07:21 102 18 40 08/13/20 04:00 40 08/13/20 04:00 Mechanical Ventilator 08/13/20 03:44 98.1 130 24 100/54 (69) 97 08/13/20 03:06 129 08/13/20 03:05 133 28 40 08/13/20 02:41 98.1 128 24 107/69 (82) 97 08/13/20 01:40 99.8 131 26 98/60 (73) 97 08/13/20 00:12 100.8 08/13/20 00:00 Mechanical Ventilator 08/13/20 00:00 102.4 168 28 139/82 (101) 100 08/13/20 00:00 40 08/12/20 23:42 176 08/12/20 23:07 170 28 138/79 (98) 99 08/12/20 22:57 119 32 40 08/12/20 22:28 160 18 135/75 96 9/12/20 21:58 145 18 143/87 100 08/12/20 21:00 98.1 08/12/20 20:00 98.1 72 18 137/76 (96) 100 08/12/20 20:00 Mechanical Ventilator 08/12/20 20:00 40 08/12/20 19:30 69 08/12/20 18:54 78 22 40 08/12/20 16:00 99.3 78 18 126/75 (92) 100 08/12/20 16:00 Mechanical Ventilator 08/12/20 16:00 40 08/12/20 15:59 73 08/12/20 15:30 74 18 40 Height (Feet): 5 Height (Inches): 10.00 Weight (Pounds): 112 General Appearance: no acute distress HEENT: mucous membranes moist, status post trach, other - R craniotomy Respiratory/Chest: rhonchi - bilaterally, other - on ventilator Cardiovascular: tachycardia - central line Abdomen: soft, non tender, other - GT feeding Extremities: no edema Neurologic/Psychiatric: alert, responsive Laboratory Tests Test 08/13/20 10:15 08/13/20 10:50 POC Whole Blood Glucose 99 MG/DL (74-106) Sodium Level 141 MMOL/L (136-145) Potassium Level 4.4 MMOL/L (3.5-5.1) Chloride Level 107 MMOL/L (98-107) Carbon Dioxide Level 22 MMOL/L (21-32) Anion Gap 12 mmol/L (5-15) Blood Urea Nitrogen 18 mg/dL (7-18) Creatinine 1.3 MG/DL (0.55-1.30) # Estimat Glomerular Filtration Rate > 60 mL/min (>60) Glucose Level 110 MG/DL (74-106) H Calcium Level 8.1 MG/DL (8.5-10.1) L Magnesium Level 1.6 MG/DL (1.8-2.4) L Total Bilirubin 1.3 MG/DL (0.2-1.0) H Direct Bilirubin 0.8 MG/DL (0.0-0.3) H Aspartate Amino Transf (AST/SGOT) 113 U/L (15-37) H Alanine Aminotransferase (ALT/SGPT) 80 U/L (12-78) H Alkaline Phosphatase 556 U/L (46-116) H Total Protein 6.7 G/DL (6.4-8.2) Albumin 2.0 G/DL (3.4-5.0) L Globulin 4.7 g/dL Albumin/Globulin Ratio 0.4 (1.0-2.7) L Current Medications Medications (Trade) Dose Ordered Sig/Piedad Route PRN Reason Start Time Stop Time Status Last Admin Dose Admin Acetaminophen (Tylenol) 650 mg Q6H PRN GT Temp >100.5 08/10/20 20:20 09/09/20 20:19 08/12/20 23:42 Albuterol Sulfate (Proventil) 2.5 mg Q4H PRN HHN Shortness of Breath 08/10/20 20:20 08/15/20 20:19 Baclofen (Lioresal) 10 mg THREE TIMES A DAY GT 08/11/20 09:00 09/07/20 08:59 08/12/20 17:24 Barium Sulfate (Readi-Cat 2) 450 ml NOW PRN ORAL Radiology Procedure 08/13/20 12:00 08/15/20 11:53 Chlorhexidine Gluconate (Christy-Hex 2%) 1 applic DAILY@2000 TOPIC 08/11/20 20:00 11/06/20 19:59 08/12/20 20:17 Dextrose/Sodium Chloride 1,000 ml @ 75 mls/hr [id number] IV 08/10/20 20:19 09/09/20 20:18 08/13/20 13:07 Famotidine (Pepcid) 20 mg DAILY GT 08/11/20 09:00 11/06/20 08:59 08/13/20 09:14 Folic Acid (Folate) 1 mg DAILY GT 08/11/20 09:00 09/07/20 08:59 08/13/20 09:14 Heparin Sodium (Porcine) (Heparin 5000 units/ml) 5,000 units EVERY 12 HOURS SUBQ 08/10/20 21:00 09/22/20 20:59 Levetiracetam (Keppra) 1,000 mg Q12HR GT 08/10/20 21:00 09/07/20 08:59 08/13/20 09:14 Lorazepam (Ativan 2mg/ml 1ml) 1 mg Q6H PRN IV For Anxiety 08/10/20 20:21 08/17/20 20:20 08/12/20 21:58 Magnesium Sulfate 100 ml @ 100 mls/hr Q1H IVPB 08/13/20 14:00 08/13/20 15:59 08/13/20 13:44 Meropenem 1 gm/ Sodium Chloride 55 ml @ 110 mls/hr Q8HR IVPB 08/10/20 22:00 08/15/20 13:59 08/13/20 13:07 Morphine Sulfate (Morphine Sulfate) 2 mg Q3H PRN IVP mild pain 08/12/20 23:00 08/19/20 22:59 Morphine Sulfate (Morphine Sulfate) 4 mg Q3H PRN IVP moderate pain 08/12/20 23:00 08/19/20 22:59 08/12/20 23:07 Multivitamins (Multivitamins) 1 tab DAILY GT 08/11/20 09:00 09/07/20 08:59 08/13/20 09:14 Vancomycin HCl (Vanco pharmacy to dose) 1 ea DAILY PRN MISC Per rx protocol 08/11/20 09:00 09/07/20 06:14 Vancomycin HCl 1 gm/Dextrose 275 ml @ 183.708 mls/hr Q12HR IVPB 08/10/20 21:00 08/14/20 20:59 08/13/20 10:46 Wyatt Kemp MD Aug 13, 2020 14:37
--- NOTE | 2020-08-13 14:39 | NUR ---
CASE MANAGEMENT:REVIEW SI;SEVERE SEPSIS. PNA. 102.4 168 28 98/60 97% TRACH/VENT FIO2 40% BG 110 CA 8.1 MAG 1.6 T-BILI 1.3 D-BILI 0.8 AST 113 ALT 80 ALP 556 ALB 2.0 IS;MAG SULFATE IV BACLOFEN GT TID PEPCID GT QD VANCOMYCIN IV Q12 MEROPENEM IV Q8 IVF D5NS @ 75 ML/HR HARRIET STATUS DCP;FROM [facility]
--- NOTE | 2020-08-13 14:46 | NUR ---
INSURANCE PROGRESS NOTES AND REVIEWS FOR 08/12 & 08/13 FAXED TO [facility] P:[phone] F:[phone] (FAX CLINICALS)
--- NOTE | 2020-08-13 15:13 | Cardiology Report ---
APPROVED REPORT EXAM: Two-dimensional and M-mode echocardiogram with Doppler and color Doppler. INDICATION Endocarditis M-Mode DIMENSIONS IVSd0.9 (0.7-1.1cm)Left Atrium (MM)3.0 (1.6-4.0cm) LVDd2.9 (3.5-5.6cm)Aortic Root3.5 (2.0-3.7cm) PWd1.7 (0.7-1.1cm)Aortic Cusp Exc.2.4 (1.5-2.0cm) IVSs1.3 cmEPSS0.2 (>1.0cm) LVDs1.9 (2.5-4.0cm) PWs1.7 cm <Conclusion> Technically difficult study due to the patient's breathing tube. Normal left ventricular chamber size, systolic function and wall motion. Left ventricular ejection fraction estimated to be 65 % No evidence of left ventricular hypertrophy. Possible small posterior pericardial effusion. All other cardiac chamber sizes are within normal limits. Mild focal aortic valve sclerosis with adequate cusp excursion. Mildly thickened mitral valve leaflets with normal excursion. Mild mitral annulus and aortic root calcification. Pulmonic valve not well visualized. Normal tricuspid valve structure. IVC at normal size without physiologic collapse. A color flow and spectral Doppler study was performed and revealed: No aortic regurgitation. No mitral regurgitation. Mitral inflow velocities indicates possible pseudo normalization pattern implying moderately elevated left atrial pressure (Grade II ). Trace tricuspid regurgitation. Tricuspid systolic velocities suggests peak right ventricular systolic pressure of 32 mmHg.
--- NOTE | 2020-08-13 16:46 | Surgery Progress Note ---
Surgery Progress Note Subjective Additional Comments no acute events Objective Last 24 Hour Vital Signs Date Time Temp Pulse Resp B/P (MAP) Pulse Ox O2 Delivery O2 Flow Rate FiO2 08/13/20 16:00 97.5 100 20 107/58 (74) 100 100 08/13/20 16:00 100 08/13/20 16:00 Mechanical Ventilator 08/13/20 16:00 40 08/13/20 12:00 40 08/13/20 12:00 Mechanical Ventilator 08/13/20 12:00 97.5 102 20 102/57 (72) 99 102 08/13/20 12:00 101 08/13/20 09:30 110 105/53 (70) 08/13/20 08:00 Mechanical Ventilator 08/13/20 08:00 40 08/13/20 08:00 98.1 111 20 84/49 (61) 99 111 08/13/20 08:00 113 08/13/20 07:21 102 18 40 08/13/20 04:00 40 08/13/20 04:00 Mechanical Ventilator 08/13/20 03:44 98.1 130 24 100/54 (69) 97 08/13/20 03:06 129 08/13/20 03:05 133 28 40 08/13/20 02:41 98.1 128 24 107/69 (82) 97 08/13/20 01:40 99.8 131 26 98/60 (73) 97 08/13/20 00:12 100.8 08/13/20 00:00 Mechanical Ventilator 08/13/20 00:00 102.4 168 28 139/82 (101) 100 08/13/20 00:00 40 08/12/20 23:42 176 08/12/20 23:07 170 28 138/79 (98) 99 08/12/20 22:57 119 32 40 08/12/20 22:28 160 18 135/75 96 08/12/20 21:58 145 18 143/87 100 08/12/20 21:00 98.1 08/12/20 20:00 98.1 72 18 137/76 (96) 100 08/12/20 20:00 Mechanical Ventilator 08/12/20 20:00 40 08/12/20 19:30 69 08/12/20 18:54 78 22 40 I&O Intake and Output 08/12/20 08/13/20 19:00 07:00 Intake Total 855 ml 1825.416 ml Output Total 1500 ml 1150 ml Balance -645 ml 675.416 ml Free Water 300 ml 50 ml IV Total 75 ml 1335.416 ml Tube Feeding 480 ml 440 ml Output Urine Total 1500 ml 1150 ml # Bowel Movements 2 4 Dressing: dry Wound: clean Cardiovascular: RSR Respiratory: decreased breath sounds Abdomen: soft, non-tender, present bowel sounds Extremities: no tenderness, no cyanosis Laboratory Tests Test 08/13/20 10:15 08/13/20 10:50 POC Whole Blood Glucose 99 MG/DL (74-106) Sodium Level 141 MMOL/L (136-145) Potassium Level 4.4 MMOL/L (3.5-5.1) Chloride Level 107 MMOL/L (98-107) Carbon Dioxide Level 22 MMOL/L (21-32) Anion Gap 12 mmol/L (5-15) Blood Urea Nitrogen 18 mg/dL (7-18) Creatinine 1.3 MG/DL (0.55-1.30) # Estimat Glomerular Filtration Rate > 60 mL/min (>60) Glucose Level 110 MG/DL (74-106) H Calcium Level 8.1 MG/DL (8.5-10.1) L Magnesium Level 1.6 MG/DL (1.8-2.4) L Total Bilirubin 1.3 MG/DL (0.2-1.0) H Direct Bilirubin 0.8 MG/DL (0.0-0.3) H Aspartate Amino Transf (AST/SGOT) 113 U/L (15-37) H Alanine Aminotransferase (ALT/SGPT) 80 U/L (12-78) H Alkaline Phosphatase 556 U/L (46-116) H Total Protein 6.7 G/DL (6.4-8.2) Albumin 2.0 G/DL (3.4-5.0) L Globulin 4.7 g/dL Albumin/Globulin Ratio 0.4 (1.0-2.7) L Plan Problems: (1) Pneumonia (2) Sickle cell anemia (3) Tachycardia (4) Severe sepsis (5) Sickle cell crisis (6) Sepsis Assessment & Plan: 35-year-old male sickle cell multiple comorbidities history of craniotomy trach feeding tube prior port infected removed see prior admission and consult and operative notes. Currently presents with significant leukocytosis fevers hypotension in intensive care unit wound site evaluated unlikely etiology. Trach evaluated may consider changing. LFTs noted elevated. Ultrasound ordered pending results trend labs continue IV antibiotics appreciate infectious disease input will follow with recommendations thank you for let me participate in patient's care KUB and US noted labs reviewed transfuse prbc prn trach change peg changed pulmonary arteries: Evaluation for pulmonary embolus is limited due to breathing motion artifact. No central pulmonary emboli are identified. Aorta: No acute findings. No thoracic aortic aneurysm. Lungs: There are moderately consolidating infiltrates identified in both lower lobes dependently with mild additional patchy infiltrates dependently in both upper lobes. The findings are consistent with bilateral nonspecific pneumonia. Aspiration pneumonia could give this appearance. The infiltrates are only somewhat typical of Covid 19. Confidence is immediate. Pleural space: Unremarkable. No significant effusion. No pneumothorax. Heart: Unremarkable. No cardiomegaly. No significant pericardial effusion. No evidence of RV dysfunction. Bones/joints: No acute fracture. No dislocation. Soft tissues: Unremarkable. Lymph nodes: Unremarkable. No enlarged lymph nodes. Tubes, lines and devices: There is a tracheostomy tube in good position. IMPRESSION: 1. There are moderately consolidating infiltrates identified in both lower lobes dependently with mild additional patchy infiltrates dependently in both upper lobes. The findings are consistent with bilateral nonspecific pneumonia. Aspiration pneumonia could give this appearance. The infiltrates are only somewhat typical of Covid 19. Confidence is immediate. 2. Evaluation for pulmonary embolus is limited due to breathing motion artifact. No central pulmonary emboli are identified. (7) Port-A-Cath in place Assessment & Plan: prior removal for infection site okay dressings changed no active infection from wound Harman Zhao Aug 13, 2020 16:46
--- NOTE | 2020-08-13 17:30 | NUR ---
NURSE NOTES: Per patient's mother, bianka Pal to give medical information to patient's father bianka Gil to add on facesheet, and father may also provide consent. Noted. Contacted and informed ER admit to update facesheet. Charge nurse made aware.
[2020-08-13] MEDS: Morphine Sulfate 2mg/ml Inj(IV/IM USE ONLY) IVP PRN (18:01)
--- NOTE | 2020-08-13 18:40 | NUR ---
NURSE NOTES: Patient noted with difficulty breathings, vent settings ACPC 18 FiO2 40%, inspiratory airway pressure setting 45. SpO2 97%, BP 138/84 HR 119, Temperature 97.[address] Nuñez and left message regarding assessments. Awaiting call back. Will continue to monitor patient.
--- NOTE | 2020-08-13 19:15 | NUR ---
NURSE NOTES: Patient noted with difficulty breathing and 10/10 pain unrelieved by PRN Morphine 2 mg IV one hour ago. BP 169/79, HR 133, temperature 97.3 F. Contacted and informed Dr. Celaya of assessments. Dr. Celaya acknowledged and ordered to give Dilaudid 2 mg IV x 1, okay to give even after Morphine 2 mg IV given an hour ago due to patient in 10/10 pain. Instructed to call reliability technician on case, Dr. Nuñez has been notified and awaiting call back. Endorsed to oncoming nurse. Noted.
--- NOTE | 2020-08-13 19:30 | NUR ---
NURSE HAND-OFF REPORT: Important Events on Shift: Patient Status: Patient noted with difficulty breathing and 10/10 pain unrelieved by PRN Morhpine 2 mg IV. Contacted and informed Dr. Celaya of assessments, acknowledged new orders given. Diet: Glucerna 1.5 40ml/hr Pending Orders: None Pending Results/Labs: None Pending MD notification: Awaiting Dr. Nuñez to call back, night nurse aware. Latest Vital Signs: Temperature 97.3 , Pulse 132 , B/P 169 /79 , Respiratory Rate 30 , O2 SAT 97 , Mechanical Ventilator, O2 Flow Rate . Vital Sign Comment: Dr. Celaya aware, see previous note. EKG Rhythm: Sinus Rhythm Rhythm change?: N Notified?: N -Dr Regan JIMENEZ Response: Latest Stevens Fall Score: 70 Fall Risk: High Risk Safety Measures: Call light Within Reach, Bed Alarm Zone 3, Side Rails Side Rails x3, Bed position Low and Locked. Fall Precautions: Yellow Socks Door Sign Patient Fall Education Report given to ARLYN Valdes.
--- NOTE | 2020-08-13 19:31 | NUR ---
"NURSE NOTES: Received report from ARLYN Richard. Pt not alert, lethargic, with labored breathing upon assessment. Vent settings: A/C 18 | 40% fiO2 saturating at 99 % EKG ST. Vitals: 121/64 | 120 bpm | afebrile 98.1 | 20 RR. Femoral TLC soiled and port clogged, not-flushable upon arrival. G-tube residual greater than 200 cc with scant streaks of blood. Diarrhea noted. Bed kept in lowest and locked position. Bed alarm on. Will continue to monitor."
--- NOTE | 2020-08-13 19:45 | NUR ---
NURSE NOTES: Notified Dr. Stiles of residual >200 cc with blood. Orders to hold feeding and drain g-tube to gravity. Made aware of new orders for STAT CBC. Will f/u with lab.
[2020-08-13] MEDS: Dyna-Hex 2% Top Sol 2oz TOPIC SCH (20:13)
--- NOTE | 2020-08-13 20:30 | NUR ---
NURSE NOTES: Hgb 6.[address] Stiles and Regan made aware. Left message for Dr. Kemp. Orders to infuse 1 PRBC with CBC post-transfusion. Will f/u with orders and monitor.
[2020-08-13] MEDS ORDERED: Metoclopramide 10mg/2ml Inj IVP PRN (22:15)
--- NOTE | 2020-08-13 22:21 | General Progress Note ---
Assessment/Plan Status: stable, not improved Assessment/Plan: Assessment - occluded GT - replaced - abnormal LFT, ? etiology, ? sickle hepatopathy +/- sepsis - sickle cell - severe anemia - hypotension - TF intolerance - ?due to narcotics, ? due to sepsis, ? due to GIB pathology - leukocytosis/PNA/Sepsis - seizure d/o - s/p trach and PEG - guarded Recommendations - Hold TF - PPI - GT care - Elevate HOB - check GABINO/AMA/hepatitis serologies - hydration - stat CBC - may need transfusion - await CT scan Subjective Allergies: Coded Allergies: ADHESIVE TAPE (Verified Allergy, Unknown, 07/20/20) Uncoded Allergies: TAPE (Allergy, Unknown, 08/07/20) Subjective above noted had pain earlier today receiving narcotics RN called me re high residuals NGT feeds held RN also reported small amount (30 cc) of mucoid blood suctioned from GT order for stat CBC given periodic hypotension reported by RN Objective Last 24 Hour Vital Signs Date Time Temp Pulse Resp B/P (MAP) Pulse Ox O2 Delivery O2 Flow Rate FiO2 08/13/20 19:46 132 30 40 08/13/20 19:32 127 08/13/20 19:00 97.3 133 20 169/79 (109) 97 133 08/13/20 18:28 97.3 119 20 138/84 (102) 100 119 08/13/20 18:00 109 124/67 (86) 08/13/20 16:00 97.5 100 20 107/58 (74) 100 100 08/13/20 16:00 100 08/13/20 16:00 Mechanical Ventilator 08/13/20 16:00 40 08/13/20 14:57 101 26 40 08/13/20 12:00 40 08/13/20 12:00 Mechanical Ventilator 08/13/20 12:00 97.5 102 20 102/57 (72) 99 102 08/13/20 12:00 101 08/13/20 11:13 99 18 40 08/13/20 09:30 110 105/53 (70) 08/13/20 08:00 Mechanical Ventilator 08/13/20 08:00 40 08/13/20 08:00 98.1 111 20 84/49 (61) 99 111 08/13/20 08:00 113 08/13/20 07:21 102 18 40 08/13/20 04:00 40 08/13/20 04:00 Mechanical Ventilator 08/13/20 03:44 98.1 130 24 100/54 (69) 97 08/13/20 03:06 129 08/13/20 03:05 133 28 40 08/13/20 02:41 98.1 128 24 107/69 (82) 97 08/13/20 01:40 99.8 131 26 98/60 (73) 97 08/13/20 00:12 100.8 08/13/20 00:00 Mechanical Ventilator 08/13/20 00:00 102.4 168 28 139/82 (101) 100 08/13/20 00:00 40 08/12/20 23:42 176 08/12/20 23:07 170 28 138/79 (98) 99 08/12/20 22:57 119 32 40 08/12/20 22:28 160 18 135/75 96 Intake and Output 08/12/20 08/13/20 19:00 07:00 Intake Total 855 ml 1825.416 ml Output Total 1500 ml 1150 ml Balance -645 ml 675.416 ml Free Water 300 ml 50 ml IV Total 75 ml 1335.416 ml Tube Feeding 480 ml 440 ml Output Urine Total 1500 ml 1150 ml # Bowel Movements 2 4 Laboratory Tests 08/13/20 10:15: POC Whole Blood Glucose 99 08/13/20 10:50: Sodium Level 141, Potassium Level 4.4, Chloride Level 107, Carbon Dioxide Level 22, Anion Gap 12, Blood Urea Nitrogen 18, Creatinine 1.3#, Estimat Glomerular Filtration Rate > 60, Glucose Level 110H, Calcium Level 8.1L, Magnesium Level 1.6L, Total Bilirubin 1.3H, Direct Bilirubin 0.8H, Aspartate Amino Transf (AST/ SGOT) 113H, Alanine Aminotransferase (ALT/SGPT) 80H, Alkaline Phosphatase 556H, Total Protein 6.7, Albumin 2.0L, Globulin 4.7, Albumin/Globulin Ratio 0.4L 08/13/20 20:20: Vancomycin Level Trough 34.1H Height (Feet): 5 Height (Inches): 10.00 Weight (Pounds): 112 Objective Thin AA Man HEENT s/p crainiotomy neck (+) trach Coarse BS RR/tachy abd soft (+) GT no edema Nasrin Stiles MD Aug 13, 2020 22:21
[2020-08-13 22:48] LABS: HEMATOCRIT 20.5 % (42.0-52.0); MEAN CORPUSCULAR VOLUME 100 FL (80-99); PLATELET COUNT 256 K/UL (150-450); RED BLOOD COUNT 2.06 M/UL (4.70-6.10); RED CELL DISTRIBUTION WIDTH 20.2 % (11.6-14.8)
[2020-08-13 22:50] LABS: HEMOGLOBIN 6.5 G/DL (14.2-18.0); WHITE BLOOD COUNT 83.5 K/UL (4.8-10.8)
[2020-08-13] MEDS ORDERED: Pantoprazole Inj IVP SCH (23:00)
[2020-08-14] VITALS (7 sets, daily range): BP systolic 109–151; BP diastolic 56–116
--- NOTE | 2020-08-14 | NUR ---
NURSE NOTES: Followed up with Walker from [facility] about. Per Walker, PRBC is not ready.
[2020-08-14] MEDS: Pantoprazole Inj IVP SCH ×3 (01:05→21:15)
--- NOTE | 2020-08-14 03:00 | NUR ---
"NURSE NOTES: Second time following up with Walker from Lab in regards to PRBCs. When asked why blood is incredibly delayed he explains just now that Type and Cross from 08/11 is and will need to be re-drawn. Cruz blood from TLC and sent to lab. Patient awake, alert, and vitals stable: 116/69 | 98.4 | 98 bpm | 100% saturation. Will continue monitoring."
--- NOTE | 2020-08-14 04:30 | NUR ---
NURSE NOTES: Third time following up with [facility] about blood. Per Walker, Type and Cross was not ordered and he does not see the order for PRBC in his system. Printed both PRBC order and T&C and brought down to lab. Per Walker, he still does not see the orders in his system. Explained that this Hgb is a critical lab and 1PRBC is now delayed. 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
--- NOTE | 2020-08-14 05:00 | NUR ---
NURSE NOTES: 1 PRBC initiated. No adverse reactions noted in the first 15-30 minutes. Will continue monitoring.
--- NOTE | 2020-08-14 07:00 | NUR ---
NURSE NOTES: Dr. Stiles and Dr. Ghotra at bedside. No new orders. Made aware of Hgb and WBC. Pending cat scan this AM. Pt. in stable condition. Will continue monitoring.
--- NOTE | 2020-08-14 07:19 | General Progress Note ---
Assessment/Plan Problem List: (1) Pneumonia ICD Codes: J18.9 - Pneumonia, unspecified organism SNOMED: 346420295 Qualifiers: Qualified Codes: J18.9 - Pneumonia, unspecified organism (2) Sickle cell anemia ICD Codes: D57.1 - Sickle-cell disease without crisis SNOMED: 315882299 Qualifiers: Qualified Codes: D57.00 - Hb-SS disease with crisis, unspecified (3) Severe sepsis ICD Codes: A41.9 - Sepsis, unspecified organism; R65.20 - Severe sepsis without septic shock SNOMED: 73825736 Status: stable, not improved Assessment/Plan: transfuse per GI IV PPI rx monitor cbc CT abd monitor wbc ID follow up ivf while npo pain rx vent support iv abx per id Subjective ROS Limited/Unobtainable: No Constitutional: Reports: malaise, weakness HEENT: Reports: no symptoms Cardiovascular: Reports: no symptoms Respiratory: Reports: no symptoms Gastrointestinal/Abdominal: Reports: blood in stool, difficulty swallowing Genitourinary: Reports: no symptoms Neurologic/Psychiatric: Reports: pre-existing deficit, seizure Endocrine: Reports: no symptoms Hematologic/Lymphatic: Reports: anemia Allergies: Coded Allergies: ADHESIVE TAPE (Verified Allergy, Unknown, 07/20/20) Uncoded Allergies: TAPE (Allergy, Unknown, 08/07/20) All Systems: reviewed and negative except above Subjective not tolerating feeds. bloody ouput from gt. c/o pain. wbc elevated to 80k. appears nontoxic. alert. follows commands. c/o generalized pain. had tachycardia last night. better after getting pain meds. Objective Last 24 Hour Vital Signs Date Time Temp Pulse Resp B/P (MAP) Pulse Ox O2 Delivery O2 Flow Rate FiO2 08/14/20 07:06 100 20 40 08/14/20 05:50 98.2 109 18 117/70 (86) 100 08/14/20 04:00 40 08/14/20 04:00 98.8 104 20 116/69 (85) 98 104 08/14/20 04:00 Mechanical Ventilator 08/14/20 03:40 103 08/14/20 02:54 98 20 40 08/14/20 00:00 Mechanical Ventilator 08/14/20 00:00 98.4 107 20 109/56 (73) 97 107 08/14/20 00:00 107 08/13/20 22:36 109 23 40 08/13/20 20:43 98.1 08/13/20 20:00 40 08/13/20 20:00 Mechanical Ventilator 08/13/20 19:46 132 30 40 08/13/20 19:32 127 08/13/20 19:00 97.3 133 20 169/79 (109) 97 133 08/13/20 18:28 97.3 119 20 138/84 (102) 100 119 08/13/20 18:00 109 124/67 (86) 08/13/20 16:00 97.5 100 20 107/58 (74) 100 100 08/13/20 16:00 100 08/13/20 16:00 Mechanical Ventilator 08/13/20 16:00 40 08/13/20 14:57 101 26 40 08/13/20 12:00 40 08/13/20 12:00 Mechanical Ventilator 08/13/20 12:00 97.5 102 20 102/57 (72) 99 102 08/13/20 12:00 101 08/13/20 11:13 99 18 40 08/13/20 09:30 110 105/53 (70) 08/13/20 08:00 Mechanical Ventilator 08/13/20 08:00 40 08/13/20 08:00 98.1 111 20 84/49 (61) 99 111 08/13/20 08:00 113 08/13/20 07:21 102 18 40 Intake and Output 08/13/20 08/14/20 19:00 07:00 Intake Total 175 ml 450 ml Output Total 730 ml Balance 175 ml -280 ml Free Water 60 ml 0 ml IV Total 75 ml 450 ml Tube Feeding 40 ml Gastric Drainage Total 730 ml # Bowel Movements 3 3 Laboratory Tests 08/13/20 10:15: POC Whole Blood Glucose 99 08/13/20 10:50: Sodium Level 141, Potassium Level 4.4, Chloride Level 107, Carbon Dioxide Level 22, Anion Gap 12, Blood Urea Nitrogen 18, Creatinine 1.3#, Estimat Glomerular Filtration Rate > 60, Glucose Level 110H, Calcium Level 8.1L, Magnesium Level 1.6L, Total Bilirubin 1.3H, Direct Bilirubin 0.8H, Aspartate Amino Transf (AST/ SGOT) 113H, Alanine Aminotransferase (ALT/SGPT) 80H, Alkaline Phosphatase 556H, Total Protein 6.7, Albumin 2.0L, Globulin 4.7, Albumin/Globulin Ratio 0.4L 08/13/20 20:20: Vancomycin Level Trough 34.1H 08/13/20 22:10: White Blood Count 83.5*H, Red Blood Count 2.06L, Hemoglobin 6.5*L, Hematocrit 20.5L, Mean Corpuscular Volume 100H, Mean Corpuscular Hemoglobin 31.8H, Mean Corpuscular Hemoglobin Concent 31.9L, Red Cell Distribution Width 20.2H, Platelet Count 256, Mean Platelet Volume 11.0H, Neutrophils (%) (Auto) , Lymphocytes (%) (Auto) , Monocytes (%) (Auto) , Eosinophils (%) (Auto) , Basophils (%) (Auto) , Differential Total Cells Counted 100, Neutrophils % ( Manual) 85H, Lymphocytes % (Manual) 3L, Monocytes % (Manual) 5, Eosinophils % ( Manual) 1, Basophils % (Manual) 0, Band Neutrophils 6, Nucleated Red Blood Cells 1, Platelet Estimate Adequate, Platelet Morphology Normal, Hypochromasia 3 +, Anisocytosis 3+, Spherocytes Occasional Height (Feet): 5 Height (Inches): 10.00 Weight (Pounds): 112 Objective General Appearance: WD/WN, lethargic EENT: normal ENT inspection Neck: normal alignment Cardiovascular: normal peripheral pulses, normal rate Respiratory/Chest: chest wall non-tender, lungs clear, normal breath sounds Abdomen: normal bowel sounds, non tender, soft, no organomegaly Edema: no edema noted Arm (L), no edema noted Arm (R) Neurologic: unresponsive Lalo Celaya MD Aug 14, 2020 07:19
--- NOTE | 2020-08-14 07:30 | NUR ---
NURSE NOTES: Received report ARLYN Presley. The patient is resting on the bed without acute distress or shortness of breath. The patient is opening eyes spontaneously and making lip words for communication. The patient is AOx3-4 and able to make needs known vial lip words, facial expression, and body movement. SR with HR of 90s on the rn cardiac cath. The patient is trach'ed and on ventilator on following setting and oxygen saturation is 100%: Shiley 6, AC 18, FiO2 40%, 0 PEEP, and on pressure support mode. The patient's GT intact and patent and connected to gravity for draining since the patient has been having high residual and coffee ground residual from GT per ARLYN Presley. The patient has [place] that is intact and draining by gravity. The patient has R femoral TLC that is intact and patent and running D5 1/2NS @75mL/hr per order. The patient is getting 1 unit pRBC transfusion per order. Per Dr. Stiles, recheck CBC after 1 unit blood transfusion. The patient's bed in the lowest position, call light in reach, and fall and aspiration precaution reinforced. IV site intact and patent. Will follow up the lab and order. Will closely monitor the patient. Will continue plan of care.
--- NOTE | 2020-08-14 07:30 | NUR ---
NURSE HAND-OFF REPORT: Important Events on Shift: Low Hgb, Elevated WBC Patient Status: Stable Diet: NPO until further orders Pending Orders: N Pending Results/Labs: Y Pending notification: Y - I.D. Latest Vital Signs: Temperature 98.2 , Pulse 100 , B/P 117 /70 , Respiratory Rate 20 , O2 SAT 100 , Mechanical Ventilator, O2 Flow Rate . Vital Sign Comment: EKG Rhythm: Sinus Tachycardia Rhythm change?: N MD Notified?: N -Dr Regan JIMENEZ Response: Latest Stevens Fall Score: 70 Fall Risk: High Risk Safety Measures: Call light Within Reach, Bed Alarm Zone 1, Side Rails Side Rails x3, Bed position Low and Locked. Fall Precautions: Yellow Socks Door Sign Patient Fall Education Report given to ARLYN Mcqueen.
--- NOTE | 2020-08-14 07:45 | NUR ---
NURSE NOTES: Dr. Degroot was notified regarding critical WBC result. No new order at this time. Will closely monitor the patient. Will continue plan of care.
--- NOTE | 2020-08-14 07:46 | General Progress Note ---
Assessment/Plan Status: stable, not improved Assessment/Plan: Assessment - occluded GT - replaced - abnormal LFT, ? etiology, ? sickle hepatopathy +/- sepsis - sickle cell - severe anemia - slight pink colon to TF drainage - hypotension - TF intolerance - ? due to narcotics, ? due to sepsis, ? due to GIB pathology - leukocytosis/PNA/Sepsis - seizure d/o - s/p trach and PEG - guarded Recommendations - Hold TF - PPI - GT care - Elevate HOB - check GABINO/AMA/hepatitis serologies - hydration - transfusion to be finished this am - await CT scan Subjective Allergies: Coded Allergies: ADHESIVE TAPE (Verified Allergy, Unknown, 07/20/20) Uncoded Allergies: TAPE (Allergy, Unknown, 08/07/20) Subjective above noted more awake this am significant GT TF drainage noted for CT this am LFT higher Objective Last 24 Hour Vital Signs Date Time Temp Pulse Resp B/P (MAP) Pulse Ox O2 Delivery O2 Flow Rate FiO2 08/14/20 07:06 100 20 40 08/14/20 05:50 98.2 109 18 117/70 (86) 100 08/14/20 04:00 40 08/14/20 04:00 98.8 104 20 116/69 (85) 98 104 08/14/20 04:00 Mechanical Ventilator 08/14/20 03:40 103 08/14/20 02:54 98 20 40 08/14/20 00:00 Mechanical Ventilator 08/14/20 00:00 98.4 107 20 109/56 (73) 97 107 08/14/20 00:00 107 08/13/20 22:36 109 23 40 08/13/20 20:43 98.1 08/13/20 20:00 40 08/13/20 20:00 Mechanical Ventilator 08/13/20 19:46 132 30 40 08/13/20 19:32 127 08/13/20 19:00 97.3 133 20 169/79 (109) 97 133 08/13/20 18:28 97.3 119 20 138/84 (102) 100 119 08/13/20 18:00 109 124/67 (86) 08/13/20 16:00 97.5 100 20 107/58 (74) 100 100 08/13/20 16:00 100 08/13/20 16:00 Mechanical Ventilator 08/13/20 16:00 40 08/13/20 14:57 101 26 40 08/13/20 12:00 40 08/13/20 12:00 Mechanical Ventilator 08/13/20 12:00 97.5 102 20 102/57 (72) 99 102 08/13/20 12:00 101 08/13/20 11:13 99 18 40 08/13/20 09:30 110 105/53 (70) 08/13/20 08:00 Mechanical Ventilator 08/13/20 08:00 40 08/13/20 08:00 98.1 111 20 84/49 (61) 99 111 08/13/20 08:00 113 Intake and Output 08/13/20 08/14/20 19:00 07:00 Intake Total 175 ml 900 ml Output Total 730 ml Balance 175 ml 170 ml Free Water 60 ml 0 ml IV Total 75 ml 900 ml Tube Feeding 40 ml Gastric Drainage Total 730 ml # Bowel Movements 3 3 Laboratory Tests 08/13/20 10:15: POC Whole Blood Glucose 99 08/13/20 10:50: Sodium Level 141, Potassium Level 4.4, Chloride Level 107, Carbon Dioxide Level 22, Anion Gap 12, Blood Urea Nitrogen 18, Creatinine 1.3#, Estimat Glomerular Filtration Rate > 60, Glucose Level 110H, Calcium Level 8.1L, Magnesium Level 1.6L, Total Bilirubin 1.3H, Direct Bilirubin 0.8H, Aspartate Amino Transf (AST/ SGOT) 113H, Alanine Aminotransferase (ALT/SGPT) 80H, Alkaline Phosphatase 556H, Total Protein 6.7, Albumin 2.0L, Globulin 4.7, Albumin/Globulin Ratio 0.4L 08/13/20 20:20: Vancomycin Level Trough 34.1H 08/13/20 22:10: White Blood Count 83.5*H, Red Blood Count 2.06L, Hemoglobin 6.5*L, Hematocrit 20.5L, Mean Corpuscular Volume 100H, Mean Corpuscular Hemoglobin 31.8H, Mean Corpuscular Hemoglobin Concent 31.9L, Red Cell Distribution Width 20.2H, Platelet Count 256, Mean Platelet Volume 11.0H, Neutrophils (%) (Auto) , Lymphocytes (%) (Auto) , Monocytes (%) (Auto) , Eosinophils (%) (Auto) , Basophils (%) (Auto) , Differential Total Cells Counted 100, Neutrophils % ( Manual) 85H, Lymphocytes % (Manual) 3L, Monocytes % (Manual) 5, Eosinophils % ( Manual) 1, Basophils % (Manual) 0, Band Neutrophils 6, Nucleated Red Blood Cells 1, Platelet Estimate Adequate, Platelet Morphology Normal, Hypochromasia 3 +, Anisocytosis 3+, Spherocytes Occasional Height (Feet): 5 Height (Inches): 10.00 Weight (Pounds): 112 Objective Thin AA Man HEENT s/p crainiotomy neck (+) trach Coarse BS RR/tachy abd soft (+) GT - TF drainage, slight pink tinge no edema Nasrin Stiles MD Aug 14, 2020 07:46
--- NOTE | 2020-08-14 08:00 | NUR ---
NURSE NOTES: Initial vital signs taken. Initial morning assessment done. The patient is stable at this time. Will continue plan of care.
--- NOTE | 2020-08-14 08:23 | Critical Care Progress Note ---
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 Port-A-Cath Status post removal of implanted right chest wall Port-A-Cath Sickle cell crisis Sickle cell anemia Chronic respiratory failure, ventilator dependent, with tracheostomy status Transaminitis Seizure disorder acute pneumonia leukocytosis recurrent sepsis PLAN care noted IV antibiotics noted respiratory care Ventilatory support- pressure control; as is volumes adequate sedation as needed SNF meds supportive care suction no wean planned still ill; repeat cbc oxygen therapy and titrate prognosis guarded ID follow up and recommendations medications/laboratory data/nursing notes reviewed in detail note reviewed and edited care discussed with RN and RT Critical Care - Subjective Interval Events: on vent pressure control Condition: unchanged EKG Rhythm: Sinus Tachycardia Residuals: minimal Tube Feeding Tolerated: yes I&O: Intake and Output 08/13/20 08/14/20 19:00 07:00 Intake Total 175 ml 900 ml Output Total 730 ml Balance 175 ml 170 ml Free Water 60 ml 0 ml IV Total 75 ml 900 ml Tube Feeding 40 ml Gastric Drainage Total 730 ml # Bowel Movements 3 3 Critical Care - Objective Last 24 Hour Vital Signs Date Time Temp Pulse Resp B/P (MAP) Pulse Ox O2 Delivery O2 Flow Rate FiO2 08/14/20 07:06 100 20 40 08/14/20 05:50 98.2 109 18 117/70 (86) 100 08/14/20 04:00 40 08/14/20 04:00 98.8 104 20 116/69 (85) 98 104 08/14/20 04:00 Mechanical Ventilator 08/14/20 03:40 103 08/14/20 02:54 98 20 40 08/14/20 00:00 Mechanical Ventilator 08/14/20 00:00 98.4 107 20 109/56 (73) 97 107 08/14/20 00:00 107 08/13/20 22:36 109 23 40 08/13/20 20:43 98.1 08/13/20 20:00 40 08/13/20 20:00 Mechanical Ventilator 08/13/20 19:46 132 30 40 08/13/20 19:32 127 08/13/20 19:00 97.3 133 20 169/79 (109) 97 133 08/13/20 18:28 97.3 119 20 138/84 (102) 100 119 08/13/20 18:00 109 124/67 (86) 08/13/20 16:00 97.5 100 20 107/58 (74) 100 100 08/13/20 16:00 100 08/13/20 16:00 Mechanical Ventilator 08/13/20 16:00 40 08/13/20 14:57 101 26 40 08/13/20 12:00 40 08/13/20 12:00 Mechanical Ventilator 08/13/20 12:00 97.5 102 20 102/57 (72) 99 102 08/13/20 12:00 101 08/13/20 11:13 99 18 40 08/13/20 09:30 110 105/53 (70) Objective: WDWN NAD reduced breath sounds bilaterally without rhonchi or wheeze [id number] without MRG NABS nontender GT no CCE reduced LOC James Nuñez MD Aug 14, 2020 08:23
[2020-08-14] MEDS: Heparin 5000 units/ml inj SUBQ SCH ×2 (09:00→21:00)
[2020-08-14] MEDS: D5 1/2NS 1,000 ML IV SCH ×2 (09:11→13:24)
--- NOTE | 2020-08-14 09:49 | NUR ---
RD ASSESSMENT & RECOMMENDATIONS SEE CARE ACTIVITY FOR COMPLETE ASSESSMENT DAILY ESTIMATED NEEDS: Needs based on Underweight, Critical care/ 50.8kg 30-35 kcals/kg 0616-5599 total kcals 1.25-2 g protein/kg 64-102 g total protein 25-30 mL/kg 1067-8118 total fluid mLs NUTRITION DIAGNOSIS: Swallowing difficulty R/T respiratory status, dysphagia as evidenced by h/o craniotomy, trach/vent dep, PEG dep. CURRENT TF:Glucerna 1.5 @ 40ml/hr x 24 hrs - NOW HELD ENTERAL NUTRITION RECOMMENDATIONS: Glucerna 1.5 @ 45ml/hr x 24 hrs to provide 1080ml, 1620kcal, 89g prot, 820ml free water * As medically able, increase goal rate to 45ml/hr x 24 hrs to meet 100% est kcal/prot needs * HOB over 30 degrees/ H2O flushes per MD ADDITIONAL RECOMMENDATIONS: * Maintain cailbrated bedscale wt * Monitor BGs: BG 9/11 fg=828, repeat lab result pending. Continue carb controlled TF formula as ordered for now Monitor need for NISS * Monitor lytes, replete as needed (K 5.6-> now LOW ) * Skin integrity: TF rec @ goal provides 100% RDI * Add probiotics for diarrhea, +rectal tube
[2020-08-14] MEDS: Colistin for inhalation INH SCH ×2 (09:50→23:00)
[2020-08-14] MEDS: levETIRAcetam 1,000mg/NS100ml 100 ML IVPB SCH ×2 (09:53→21:15)
--- NOTE | 2020-08-14 10:00 | NUR ---
NURSE NOTES: Medications administered per order. Unable to administer GT route medication since GT is connected to gravity drain. Heparin on hold due to GT coffee ground residual and low hemoglobin level. Administered Levetiracetam and Pantoprazole per order. Will continue plan of care. Addendum: 08/14/20 at 2102 by Marino Anthony RN Dr. Celaya and Dr. Stiles were notified regarding holding of GT medication.
[2020-08-14] MEDS ORDERED: Lidocaine 1% Plain 30 ml INJ PRN (11:00)
--- NOTE | 2020-08-14 11:00 | NUR ---
NURSE NOTES: Blood collected and sent down to the lab for CBC, CMP, and other ordered lab. Will follow up the result. Will continue plan of care.
--- NOTE | 2020-08-14 11:10 | NUR ---
NURSE NOTES: Dr. Degroot was notified regarding downtrending WBC. Dr. Celaya was notified regarding uptrending hemoglobin. No new order at this time. Will closely monitor the patient. Will continue plan of care.
--- NOTE | 2020-08-14 11:30 | NUR ---
NURSE NOTES: Dr. Degroot at the bedside assessed the patient. Dr. Degroot ordered to insert PICC line, then remove R femoral TLC. Dr. Degroot ordered antibiotics for treatment. Will closely monitor the patient. Will continue plan fo care.
--- NOTE | 2020-08-14 11:34 | Infectious Diseases Prog Note ---
"Assessment/Plan Assessment/Plan antibiotics : vancomycin iv, inhaled colistin A 1. MRSA sepsis 2. MRSA | serratia | pseudomonas pneumonia 3. respiratory failure 4. sickle cell disease 5. anemia 6. leucocytosis increased 7. seizures P 1. continue iv vancomycin 2. continue inhaled colistin 3. start cefepime 4. d/c right groin catheter 5. PICC line 6. will follow up cultures Subjective ROS Limited/Unobtainable: Yes Allergies: Coded Allergies: ADHESIVE TAPE (Verified Allergy, Unknown, 07/20/20) Uncoded Allergies: TAPE (Allergy, Unknown, 08/07/20) Objective Last 24 Hour Vital Signs Date Time Temp Pulse Resp B/P (MAP) Pulse Ox O2 Delivery O2 Flow Rate FiO2 08/14/20 10:59 95 18 40 08/14/20 09:42 95 20 100 Mechanical Ventilator 40 95 20 40 08/14/20 07:06 100 20 40 08/14/20 05:50 98.2 109 18 117/70 (86) 100 08/14/20 04:00 40 08/14/20 04:00 98.8 104 20 116/69 (85) 98 104 08/14/20 04:00 Mechanical Ventilator 08/14/20 03:40 103 08/14/20 02:54 98 20 40 08/14/20 00:00 Mechanical Ventilator 08/14/20 00:00 98.4 107 20 109/56 (73) 97 107 08/14/20 00:00 107 08/13/20 22:36 109 23 40 08/13/20 20:43 98.1 08/13/20 20:00 40 08/13/20 20:00 Mechanical Ventilator 08/13/20 19:46 132 30 40 08/13/20 19:32 127 08/13/20 19:00 97.3 133 20 169/79 (109) 97 133 08/13/20 18:28 97.3 119 20 138/84 (102) 100 119 08/13/20 18:00 109 124/67 (86) 08/13/20 16:00 97.5 100 20 107/58 (74) 100 100 08/13/20 16:00 100 08/13/20 16:00 Mechanical Ventilator 08/13/20 16:00 40 08/13/20 14:57 101 26 40 08/13/20 12:00 40 08/13/20 12:00 Mechanical Ventilator 08/13/20 12:00 97.5 102 20 102/57 (72) 99 102 08/13/20 12:00 101 Height (Feet): 5 Height (Inches): 10.00 Weight (Pounds): 112 HEENT: status post trach Respiratory/Chest: lungs clear Cardiovascular: normal rate, regular rhythm, no gallop/murmur Abdomen: soft, non tender, other - GT Extremities: no edema, other - right groin catheter Microbiology Date/Time Source Procedure Growth Status 08/13/20 16:16 Stool Clostridium difficile Toxin Assay - Final Complete Laboratory Tests Test 08/13/20 20:20 08/13/20 22:10 Vancomycin Level Trough 34.1 ug/mL (5.0-12.0) H White Blood Count 83.5 K/UL (4.8-10.8) *H Red Blood Count 2.06 M/UL (4.70-6.10) L Hemoglobin 6.5 G/DL (14.2-18.0) *L Hematocrit 20.5 % (42.0-52.0) L Mean Corpuscular Volume 100 FL (80-99) H Mean Corpuscular Hemoglobin 31.8 PG (27.0-31.0) H Mean Corpuscular Hemoglobin Concent 31.9 G/DL (32.0-36.0) L Red Cell Distribution Width 20.2 % (11.6-14.8) H Platelet Count 256 K/UL (150-450) Mean Platelet Volume 11.0 FL (6.5-10.1) H Neutrophils (%) (Auto) % (45.0-75.0) Lymphocytes (%) (Auto) % (20.0-45.0) Monocytes (%) (Auto) % (1.0-10.0) Eosinophils (%) (Auto) % (0.0-3.0) Basophils (%) (Auto) % (0.0-2.0) Differential Total Cells Counted 100 Neutrophils % (Manual) 85 % (45-75) H Lymphocytes % (Manual) 3 % (20-45) L Monocytes % (Manual) 5 % (1-10) Eosinophils % (Manual) 1 % (0-3) Basophils % (Manual) 0 % (0-2) Band Neutrophils 6 % (0-8) Nucleated Red Blood Cells 1 /100 WBC Platelet Estimate Adequate Platelet Morphology Normal Hypochromasia 3+ Anisocytosis 3+ Spherocytes Occasional Current Medications Medications (Trade) Dose Ordered Sig/Piedad Route PRN Reason Start Time Stop Time Status Last Admin Dose Admin Acetaminophen (Tylenol) 650 mg Q6H PRN GT Temp >100.5 08/10/20 20:20 09/09/20 20:19 08/12/20 23:42 Albuterol Sulfate (Proventil) 2.5 mg Q4H PRN HHN Shortness of Breath 08/10/20 20:20 08/15/20 20:19 Baclofen (Lioresal) 10 mg THREE TIMES A DAY GT 08/11/20 09:00 09/07/20 08:59 08/13/20 18:50 Barium Sulfate (Readi-Cat 2) 450 ml NOW PRN ORAL Radiology Procedure 08/13/20 12:00 08/15/20 11:53 Chlorhexidine Gluconate (Christy-Hex 2%) 1 applic DAILY@2000 TOPIC 08/11/20 20:00 11/06/20 19:59 08/13/20 20:13 Colistimethate Sodium (Colistin *inhalation use only*) 75 mg Q12HR@,22 INH 08/13/20 22:00 08/20/20 21:59 08/14/20 09:50 Dextrose/Sodium Chloride 1,000 ml @ 75 mls/hr [id number] IV 08/10/20 20:19 09/09/20 20:18 08/14/20 09:11 Famotidine (Pepcid) 20 mg DAILY GT 08/11/20 09:00 11/06/20 08:59 08/13/20 09:14 Folic Acid (Folate) 1 mg DAILY GT 08/11/20 09:00 09/07/20 08:59 08/13/20 09:14 Heparin Sodium (Porcine) (Heparin 5000 units/ml) 5,000 units EVERY 12 HOURS SUBQ 08/10/20 21:00 09/22/20 20:59 Levetiracetam 100 ml @ 400 mls/hr Q12HR IVPB 08/14/20 10:00 11/12/20 09:59 08/14/20 09:53 Lorazepam (Ativan 2mg/ml 1ml) 1 mg Q6H PRN IV For Anxiety 08/10/20 20:21 08/17/20 20:20 08/12/20 21:58 Metoclopramide HCl (Reglan) 5 mg Q6H PRN IVP Nausea & Vomiting 08/13/20 22:15 09/12/20 22:14 Morphine Sulfate (Morphine Sulfate) 2 mg Q3H PRN IVP mild pain 08/12/20 23:00 08/19/20 22:59 08/13/20 18:01 Morphine Sulfate (Morphine Sulfate) 4 mg Q3H PRN IVP moderate pain 08/12/20 23:00 08/19/20 22:59 08/12/20 23:07 Multivitamins (Multivitamins) 1 tab DAILY GT 08/11/20 09:00 09/07/20 08:59 08/13/20 09:14 Pantoprazole (Protonix) 40 mg EVERY 12 HOURS IVP 08/13/20 22:15 09/12/20 22:14 08/14/20 09:12 Vancomycin HCl (Vanco pharmacy to dose) 1 ea DAILY PRN MISC Per rx protocol 08/11/20 09:00 09/07/20 06:14 Isabelle Degroot MD Aug 14, 2020 11:34"
[2020-08-14 11:48] LABS: HEMATOCRIT 22.8 % (42.0-52.0); HEMOGLOBIN 7.8 G/DL (14.2-18.0); MEAN CORPUSCULAR VOLUME 94 FL (80-99); PLATELET COUNT 260 K/UL (150-450); RED BLOOD COUNT 2.41 M/UL (4.70-6.10); RED CELL DISTRIBUTION WIDTH 18.2 % (11.6-14.8)
[2020-08-14 11:50] LABS: WHITE BLOOD COUNT 52.6 K/UL (4.8-10.8)
[2020-08-14] MEDS ORDERED: Heparin1,000 units/500ml Premix(Conc:2 units/ml) IV PRN (12:00)
--- NOTE | 2020-08-14 12:00 | NUR ---
NURSE NOTES: The patient is resting on the bed comfortably without acute distress or shortness of breath. Tolerating vent setting, GT gravity, Overton, and R femoral TLC well. Will closely monitor the patient. Will continue plan of care.
[2020-08-14 12:13] LABS: ALANINE AMINOTRANSFERASE 82 U/L (12-78); ALBUMIN 2.1 G/DL (3.4-5.0); ALBUMIN/GLOBULIN RATIO 0.4 (1.0-2.7); ALKALINE PHOSPHATASE 466 U/L (46-116); ANION GAP 10 mmol/L (5-15); ASPARTATE AMINO TRANSFERASE 95 U/L (15-37); BILIRUBIN,DIRECT 0.9 MG/DL (0.0-0.3); BILIRUBIN,TOTAL 1.6 MG/DL (0.2-1.0); BLOOD UREA NITROGEN 25 mg/dL (7-18); CALCIUM 8.5 MG/DL (8.5-10.1); CARBON DIOXIDE 23 MMOL/L (21-32); CHLORIDE 111 MMOL/L (98-107); CREATINE KINASE 9 U/L (26-308); CREATININE 1.4 MG/DL (0.55-1.30); POTASSIUM 4.3 MMOL/L (3.5-5.1); SODIUM 144 MMOL/L (136-145)
--- NOTE | 2020-08-14 12:56 | Diagnostic Imaging Report ---
Procedure: XRAY Chest 1v Reason for study: Shortness of breath. Comparison films: 08/10/2020. FINDINGS: Tracheostomy remains in place. Vascularity is normal. Perihilar and basilar infiltrates noted not significantly changed. Cardiac and mediastinal silhouette are within normal limits. There is decreased right effusion . The bony thorax appear unremarkable. IMPRESSION: Slight decreased right effusion. No significant change bilateral infiltrates.
[2020-08-14] MEDS: Cefepime HCl 2 GM in D5W 55 ML IVPB SCH ×2 (13:24→21:14)
--- NOTE | 2020-08-14 14:00 | NUR ---
NURSE NOTES: The patient is resting on the bed without acute distress or shortness of breath. PICC line insertion being done at the bedside by physician per Dr. Degroot's order. Will continue plan of care.
--- NOTE | 2020-08-14 14:47 | NUR ---
CASE MANAGEMENT:REVIEW 08/14/20 SI: MRSA SEPSIS. PNA. SICKLE CELL DISEASE TRACH/VENT DEPENDENT 97.9 80 18 110/70 100% ON VENT SUPPORT W/40% FIO2 WBC+52.6 H/H-7.8/22.8 BUN+25 IS: TRANSFUSE 1 UNIT PRBC'S IV CEFEPIME Q12 IV KEPPRA Q12 COLISTIN INH Q12 IVF@75/HR HEPARIN SQ Q12 : STEP DOWN UNIT DCP: FROM [facility]
--- NOTE | 2020-08-14 15:53 | NUR ---
RADIOLOGY NOTE: RIGHT UPPER EXTREMITY PICC LINE PLACEMENT BY DR. SCHMIDT AT 1515 HRS. FA
--- NOTE | 2020-08-14 15:55 | NUR ---
NURSE NOTES: Obtained okay to use PICC line order per physician. Will closely monitor the patient. Will continue plan of care.
--- NOTE | 2020-08-14 16:00 | NUR ---
NURSE NOTES: Pending for CT chest/abdomen/pelvis per order. Paged RT but being busy. Will go down for CT as soon as RT gets available. Will continue plan of care.
--- NOTE | 2020-08-14 16:17 | Pre-Procedure Note/Attestation ---
Pre-Procedure Note/Attestation Complete Prior to Procedure Planned Procedure: not applicable Procedure Narrative: picc line placement Indications for Procedure Pre-Operative Diagnosis: needs iv access Attestation Informed consent obtained from the patients mother by the primary team. This was confirmed prior to the procedure. Panchito Koo M.D. Aug 14, 2020 16:17
--- NOTE | 2020-08-14 16:23 | Diagnostic Imaging Report ---
Indications: Needs IV access Technique: Procedure performed at bedside. Procedural timeout performed. Ultrasound confirms patent compressible vein. Total sterile technique, including sterile probe cover and sterile gel, sterile gloves, hand hygiene, hat, mask,, sterile gown, large sterile drape, and preparation with 2% chlorhexidine utilized. Local anesthesia with 1% lidocaine. Under real-time ultrasound guidance, puncture right brachial vein using 21-gauge needle, passage 0.018 guidewire, exchange for 4.5 Welsh peel-away sheath. 4 Welsh dual-lumen power PICC cut to 35 cm. It was inserted through the peel-away sheath. Peel-away sheath and guidewire removed. Catheter fixed to the skin. Both catheter ports aspirated and flushed. Patient tolerated procedure well, without immediate complication. Followup chest x-ray obtained, documents catheter tip position at the cavoatrial junction. Additional findings including tracheostomy tube and bilateral infiltrates not significantly changed compared to the prior exam allowing for differences in lung volumes. Impression: Successful bedside placement of right arm PICC under sonographic guidance, as described above.
--- NOTE | 2020-08-14 16:39 | Surgery Progress Note ---
Surgery Progress Note Subjective Additional Comments picc line placed groin line to come out leukocytosis fluctuating high awake and responsive on facetime with family Objective Last 24 Hour Vital Signs Date Time Temp Pulse Resp B/P (MAP) Pulse Ox O2 Delivery O2 Flow Rate FiO2 08/14/20 15:48 81 18 40 08/14/20 12:00 40 08/14/20 12:00 97.9 80 18 110/70 (83) 100 80 08/14/20 12:00 83 08/14/20 12:00 Mechanical Ventilator 08/14/20 10:59 95 18 40 08/14/20 09:42 95 20 100 Mechanical Ventilator 40 95 20 40 08/14/20 08:00 98.5 97 18 114/62 (79) 100 97 08/14/20 08:00 40 08/14/20 08:00 Mechanical Ventilator 08/14/20 08:00 94 08/14/20 07:06 100 20 40 08/14/20 05:50 98.2 109 18 117/70 (86) 100 08/14/20 04:00 40 08/14/20 04:00 98.8 104 20 116/69 (85) 98 104 08/14/20 04:00 Mechanical Ventilator 08/14/20 03:40 103 08/14/20 02:54 98 20 40 08/14/20 00:00 Mechanical Ventilator 08/14/20 00:00 98.4 107 20 109/56 (73) 97 107 08/14/20 00:00 107 08/13/20 22:36 109 23 40 08/13/20 20:43 98.1 08/13/20 20:00 40 08/13/20 20:00 Mechanical Ventilator 08/13/20 19:46 132 30 40 08/13/20 19:32 127 08/13/20 19:00 97.3 133 20 169/79 (109) 97 133 08/13/20 18:28 97.3 119 20 138/84 (102) 100 119 08/13/20 18:00 109 124/67 (86) I&O Intake and Output 08/13/20 08/14/20 19:00 07:00 Intake Total 175 ml 900 ml Output Total 730 ml Balance 175 ml 170 ml Free Water 60 ml 0 ml IV Total 75 ml 900 ml Tube Feeding 40 ml Gastric Drainage Total 730 ml # Bowel Movements 3 3 Dressing: dry Wound: clean Cardiovascular: RSR Respiratory: clear, decreased breath sounds Abdomen: soft, non-tender, present bowel sounds Extremities: no edema, no tenderness, no cyanosis Laboratory Tests Test 08/13/20 20:20 08/13/20 22:10 08/14/20 11:09 08/14/20 15:00 Vancomycin Level Trough 34.1 ug/mL (5.0-12.0) H White Blood Count 83.5 K/UL (4.8-10.8) *H 52.6 K/UL (4.8-10.8) *H Red Blood Count 2.06 M/UL (4.70-6.10) L 2.41 M/UL (4.70-6.10) L Hemoglobin 6.5 G/DL (14.2-18.0) *L 7.8 G/DL (14.2-18.0) L Hematocrit 20.5 % (42.0-52.0) L 22.8 % (42.0-52.0) L Mean Corpuscular Volume 100 FL (80-99) H 94 FL (80-99) Mean Corpuscular Hemoglobin 31.8 PG (27.0-31.0) H 32.1 PG (27.0-31.0) H Mean Corpuscular Hemoglobin Concent 31.9 G/DL (32.0-36.0) L 34.0 G/DL (32.0-36.0) Red Cell Distribution Width 20.2 % (11.6-14.8) H 18.2 % (11.6-14.8) H Platelet Count 256 K/UL (150-450) 260 K/UL (150-450) Mean Platelet Volume 11.0 FL (6.5-10.1) H 9.1 FL (6.5-10.1) Neutrophils (%) (Auto) % (45.0-75.0) % (45.0-75.0) Lymphocytes (%) (Auto) % (20.0-45.0) % (20.0-45.0) Monocytes (%) (Auto) % (1.0-10.0) % (1.0-10.0) Eosinophils (%) (Auto) % (0.0-3.0) % (0.0-3.0) Basophils (%) (Auto) % (0.0-2.0) % (0.0-2.0) Differential Total Cells Counted 100 100 Neutrophils % (Manual) 85 % (45-75) H 87 % (45-75) H Lymphocytes % (Manual) 3 % (20-45) L 1 % (20-45) L Monocytes % (Manual) 5 % (1-10) 6 % (1-10) Eosinophils % (Manual) 1 % (0-3) 6 % (0-3) H Basophils % (Manual) 0 % (0-2) 0 % (0-2) Band Neutrophils 6 % (0-8) 0 % (0-8) Nucleated Red Blood Cells 1 /100 WBC 3 /100 WBC Platelet Estimate Adequate Adequate Platelet Morphology Normal Normal Hypochromasia 3+ 3+ Anisocytosis 3+ 1+ Spherocytes Occasional Sodium Level 144 MMOL/L (136-145) Potassium Level 4.3 MMOL/L (3.5-5.1) Chloride Level 111 MMOL/L (98-107) H Carbon Dioxide Level 23 MMOL/L (21-32) Anion Gap 10 mmol/L (5-15) Blood Urea Nitrogen 25 mg/dL (7-18) H Creatinine 1.4 MG/DL (0.55-1.30) H Estimat Glomerular Filtration Rate > 60 mL/min (>60) Glucose Level 79 MG/DL (74-106) Calcium Level 8.5 MG/DL (8.5-10.1) Magnesium Level 2.4 MG/DL (1.8-2.4) Total Bilirubin 1.6 MG/DL (0.2-1.0) H Direct Bilirubin 0.9 MG/DL (0.0-0.3) H Aspartate Amino Transf (AST/SGOT) 95 U/L (15-37) H Alanine Aminotransferase (ALT/SGPT) 82 U/L (12-78) H Alkaline Phosphatase 466 U/L (46-116) H Total Creatine Kinase 9 U/L (26-308) L Total Protein 7.0 G/DL (6.4-8.2) Albumin 2.1 G/DL (3.4-5.0) L Globulin 4.9 g/dL Albumin/Globulin Ratio 0.4 (1.0-2.7) L Tawnya-Keane Virus Capsid Ag IgM Ab Pending Hepatitis A IgM Antibody Pending Hepatitis B Surface Antigen Pending Hepatitis B Core IgM Antibody Pending Hepatitis C Antibody Pending Herpes Simplex Virus I IgM Ab (IFA) Pending Herpes Simplex Virus II IgM Ab (IFA Pending Monoscreen Pending Test 08/14/20 16:32 POC Whole Blood Glucose 92 MG/DL (74-106) Plan Problems: (1) Pneumonia (2) Sickle cell anemia (3) Tachycardia (4) Severe sepsis (5) Sickle cell crisis (6) Sepsis Assessment & Plan: 35-year-old male sickle cell multiple comorbidities history of craniotomy trach feeding tube prior port infected removed see prior admission and consult and operative notes. Currently presents with significant leukocytosis fevers hypotension in intensive care unit wound site evaluated unlikely etiology. Trach evaluated may consider changing. LFTs noted elevated. Ultrasound ordered pending results trend labs continue IV antibiotics appreciate infectious disease input will follow with recommendations thank you for let me participate in patient's care KUB and US noted labs reviewed transfuse prbc prn trach change peg changed line out picc placed pulmonary arteries: Evaluation for pulmonary embolus is limited due to breathing motion artifact. No central pulmonary emboli are identified. Aorta: No acute findings. No thoracic aortic aneurysm. Lungs: There are moderately consolidating infiltrates identified in both lower lobes dependently with mild additional patchy infiltrates dependently in both upper lobes. The findings are consistent with bilateral nonspecific pneumonia. Aspiration pneumonia could give this appearance. The infiltrates are only somewhat typical of Covid 19. Confidence is immediate. Pleural space: Unremarkable. No significant effusion. No pneumothorax. Heart: Unremarkable. No cardiomegaly. No significant pericardial effusion. No evidence of RV dysfunction. Bones/joints: No acute fracture. No dislocation. Soft tissues: Unremarkable. Lymph nodes: Unremarkable. No enlarged lymph nodes. Tubes, lines and devices: There is a tracheostomy tube in good position. IMPRESSION: 1. There are moderately consolidating infiltrates identified in both lower lobes dependently with mild additional patchy infiltrates dependently in both upper lobes. The findings are consistent with bilateral nonspecific pneumonia. Aspiration pneumonia could give this appearance. The infiltrates are only somewhat typical of Covid 19. Confidence is immediate. 2. Evaluation for pulmonary embolus is limited due to breathing motion artifact. No central pulmonary emboli are identified. (7) Port-A-Cath in place Assessment & Plan: prior removal for infection site okay dressings changed no active infection from wound Harman Zhao Aug 14, 2020 16:39
--- NOTE | 2020-08-14 17:00 | NUR ---
NURSE NOTES: Bed bath given to the patient. Tolerated well. Tolerating vent setting and GT by gravity well. Will closely monitor the patient. Will continue plan of care.
--- NOTE | 2020-08-14 18:00 | NUR ---
NURSE NOTES: CT chest/abdomen/ pelvis done per order by RT and primary RN's closely monitoring. Will follow up the result. Will continue plan of care.
[2020-08-14] MEDS ORDERED: NS 275ml ONE (18:42)
[2020-08-14] MEDS ORDERED: D5 1/2NS 1000ml IV ONE (18:42)
[2020-08-14] MEDS ORDERED: Sterile Water Irrig 1000ml IRRIG ONE (18:42)
[2020-08-14] MEDS ORDERED: Tubing IV Secondary IV ONE (18:42)
--- NOTE | 2020-08-14 19:30 | NUR ---
NURSE HAND-OFF REPORT: Important Events on Shift: 1 unit pRBC transfusion, critical WBC and Hemoglobin, PICC line placement, CT chest/abdomen/pelvis Patient Status: Full code, Stable Diet: NPO, GT gravity to drain per Dr. Stiles Pending Orders: N Pending Results/Labs: N Pending MD notification: N Latest Vital Signs: Temperature 98.3 , Pulse 82 , B/P 117 /70 , Respiratory Rate 18 , O2 SAT 100 , Mechanical Ventilator, O2 Flow Rate . Vital Sign Comment: Stable EKG Rhythm: Sinus Rhythm Rhythm change?: N MD Notified?: N -Dr Regan JIMENEZ Response: Latest Stevens Fall Score: 50 Fall Risk: High Risk Safety Measures: Call light Within Reach, Bed Alarm Zone 1, Side Rails Side Rails x3, Bed position Low and Locked. Fall Precautions: Yellow Socks Yellow Gown Door Sign Patient Fall Education Report given to ARLYN Presley. The pateint is stable at this time. Endorsed plan of care. Addendum: 08/14/20 at 2002 by Marino Anthony RN Asked ARLYN Presley to remove R femoral TLC per Dr. Degroot's order.
--- NOTE | 2020-08-14 19:31 | NUR ---
"NURSE NOTES: Received report from ARLYN Mcqueen with update. Pt alert, responsive to verbal/tactile stimuli. C/O generalized pain. PERRLA. Vent settings: A/C 18 | 40% fiO2 saturating at 100%. EKG SR. Vitals: 151/74 | 85 bpm | afebrile 98.1 | 16 RR. Made aware of new PICC on SHER. Will d/c Femoral TLC per orders. G-tube draining by gravity. Continued NPO. Bed kept in lowest and locked position. Bed alarm on. Will continue to monitor."
[2020-08-14] MEDS: Dyna-Hex 2% Top Sol 2oz TOPIC SCH (20:00)
[2020-08-14] MEDS: Morphine Sulfate 2mg/ml Inj(IV/IM USE ONLY) IVP PRN (21:15)
[2020-08-15] VITALS: BP 117/72
--- NOTE | 2020-08-15 | NUR ---
NURSE NOTES: Femoral TLC removed as ordered. Tip of catheter intact. Applied pressure. Pt. irritable and resistive to care. Will continue monitoring.
--- NOTE | 2020-08-15 03:00 | NUR ---
NURSE NOTES: pt attempting to pull on vent. when explaining risks of his actions, patient just shrugs his shoulders with flat affect. will monitor.
[2020-08-15 04:00] VITALS: BP 114/58
[2020-08-15 05:41] LABS: HEMATOCRIT 21.8 % (42.0-52.0); HEMOGLOBIN 7.1 G/DL (14.2-18.0); MEAN CORPUSCULAR VOLUME 96 FL (80-99); PLATELET COUNT 297 K/UL (150-450); RED BLOOD COUNT 2.27 M/UL (4.70-6.10); RED CELL DISTRIBUTION WIDTH 19.3 % (11.6-14.8)
[2020-08-15 05:59] LABS: WHITE BLOOD COUNT 33.9 K/UL (4.8-10.8)
--- NOTE | 2020-08-15 06:00 | NUR ---
NURSE NOTES: Walker from Lab called with Critical Result: WBC appears to be trending down to 33.9. Will leave message for .
[2020-08-15] MEDS: D5 1/2NS 1,000 ML IV SCH ×2 (06:53→20:44)
--- NOTE | 2020-08-15 07:21 | NUR ---
NURSE NOTES: Received pt from ARLYN Presley. Pt is asleep, comfortable in vent with setting of AC 18, FiO2 40%. No resp distress. No grimacing noted. Gtube to gravity drain. PICC in place right upper arm. Overton cath in place patent, intact, draining yellow colored urine. HOB elevated. Bed in lowest position, bed alarm on, call light within reach. Will continue to monitor pt.
--- NOTE | 2020-08-15 07:23 | NUR ---
NURSE HAND-OFF REPORT: Important Events on Shift: Removal of Femoral TLC; WBC trending down; Hgb trending down Patient Status: Stable Diet: NPO Pending Orders: N Pending Results/Labs: Y Pending notification: Y Latest Vital Signs: Temperature 98.5 , Pulse 61 , B/P 114 /58 , Respiratory Rate 20 , O2 SAT 100 , Mechanical Ventilator, O2 Flow Rate . Vital Sign Comment: WNL EKG Rhythm: Sinus Rhythm Rhythm change?: N Notified?: N Response: Latest Stevens Fall Score: 50 Fall Risk: High Risk Safety Measures: Call light Within Reach, Bed Alarm Zone 1, Side Rails Side Rails x3, Bed position Low and Locked. Fall Precautions: Yellow Socks Yellow Gown Door Sign Patient Fall Education Report given to ARLYN Johnson.
[2020-08-15 08:00] VITALS: BP 110/54
[2020-08-15] MEDS ORDERED: Vancomycin 750mg/D5W 275ml IVPB SCH ×2 (08:00)
[2020-08-15] MEDS: Heparin 5000 units/ml inj SUBQ SCH ×3 (08:29→20:45)
[2020-08-15] MEDS: Pantoprazole Inj IVP SCH ×2 (08:30→21:00)
[2020-08-15] MEDS: levETIRAcetam 1,000mg/NS100ml 100 ML IVPB SCH ×2 (08:34→20:44)
[2020-08-15] MEDS: Cefepime HCl 2 GM in D5W 55 ML IVPB SCH ×2 (08:36→20:45)
--- NOTE | 2020-08-15 08:44 | NUR ---
NURSE NOTES: Held Heparin SQ due to blood strict noted on the gt drain.
--- NOTE | 2020-08-15 08:58 | General Progress Note ---
Assessment/Plan Problem List: (1) Pneumonia ICD Codes: J18.9 - Pneumonia, unspecified organism SNOMED: 392727235 Qualifiers: Qualified Codes: J18.9 - Pneumonia, unspecified organism (2) Sickle cell anemia ICD Codes: D57.1 - Sickle-cell disease without crisis SNOMED: 909011126 Qualifiers: Qualified Codes: D57.00 - Hb-SS disease with crisis, unspecified (3) Severe sepsis ICD Codes: A41.9 - Sepsis, unspecified organism; R65.20 - Severe sepsis without septic shock SNOMED: [id number] Status: stable, not improved Assessment/Plan: transfuse per GI heme eval IV PPI rx monitor cbc CT abd monitor wbc ID follow up ivf while npo pain rx vent support iv abx per id Subjective ROS Limited/Unobtainable: Yes Constitutional: Reports: malaise, weakness HEENT: Reports: no symptoms Cardiovascular: Reports: no symptoms Respiratory: Reports: shortness of breath, sputum Gastrointestinal/Abdominal: Reports: black stools, difficulty swallowing Genitourinary: Reports: no symptoms Neurologic/Psychiatric: Reports: pre-existing deficit, seizure Endocrine: Reports: no symptoms Hematologic/Lymphatic: Reports: anemia Allergies: Coded Allergies: ADHESIVE TAPE (Verified Allergy, Unknown, 07/20/20) Uncoded Allergies: TAPE (Allergy, Unknown, 08/07/20) All Systems: reviewed and negative except above Subjective no overnight events. no reports of bleeding. stable on the vent. no fevers. o2 sats stable on 40%fio2. cxr with persistent unchanged carlos infiltrates. h/h decreased today. remains on iv abx. Objective Last 24 Hour Vital Signs Date Time Temp Pulse Resp B/P (MAP) Pulse Ox O2 Delivery O2 Flow Rate FiO2 08/15/20 07:22 65 18 40 08/15/20 04:00 98.5 61 20 114/58 (76) 100 61 08/15/20 04:00 40 08/15/20 04:00 Mechanical Ventilator 08/15/20 03:43 69 18 40 08/15/20 03:31 64 08/15/20 00:00 98.1 80 18 117/72 (87) 100 80 08/15/20 00:00 Mechanical Ventilator 08/14/20 23:26 74 08/14/20 23:01 74 18 100 Mechanical Ventilator 40 78 19 40 08/14/20 21:45 98.3 08/14/20 20:00 40 08/14/20 20:00 97.9 80 18 151/61 (91) 100 80 08/14/20 20:00 Mechanical Ventilator 08/14/20 19:46 71 18 40 08/14/20 19:01 78 08/14/20 16:00 82 08/14/20 16:00 40 08/14/20 16:00 98.3 81 18 117/70 (86) 100 81 08/14/20 16:00 Mechanical Ventilator 08/14/20 15:48 81 18 40 08/14/20 12:00 40 08/14/20 12:00 97.9 80 18 110/70 (83) 100 80 08/14/20 12:00 83 08/14/20 12:00 Mechanical Ventilator 08/14/20 10:59 95 18 40 08/14/20 09:42 95 20 100 Mechanical Ventilator 40 95 20 40 Intake and Output 08/14/20 08/15/20 19:00 07:00 Intake Total 75 ml 1159.3 ml Output Total 2000 ml Balance -1925 ml 1159.3 ml IV Total 75 ml 1159.3 ml Output Urine Total 2000 ml Laboratory Tests 08/14/20 11:09: White Blood Count 52.6*H, Red Blood Count 2.41L, Hemoglobin 7.8L, Hematocrit 22.8L, Mean Corpuscular Volume 94, Mean Corpuscular Hemoglobin 32.1H, Mean Corpuscular Hemoglobin Concent 34.0, Red Cell Distribution Width 18.2H, Platelet Count 260, Mean Platelet Volume 9.1, Neutrophils (%) (Auto) , Lymphocytes (%) (Auto) , Monocytes (%) (Auto) , Eosinophils (%) (Auto) , Basophils (%) (Auto) , Differential Total Cells Counted 100, Neutrophils % ( Manual) 87H, Lymphocytes % (Manual) 1L, Monocytes % (Manual) 6, Eosinophils % ( Manual) 6H, Basophils % (Manual) 0, Band Neutrophils 0, Nucleated Red Blood Cells 3, Platelet Estimate Adequate, Platelet Morphology Normal, Hypochromasia 3 +, Anisocytosis 1+, Sodium Level 144, Potassium Level 4.3, Chloride Level 111H, Carbon Dioxide Level 23, Anion Gap 10, Blood Urea Nitrogen 25H, Creatinine 1.4H , Estimat Glomerular Filtration Rate > 60, Glucose Level 79, Calcium Level 8.5, Magnesium Level 2.4, Total Bilirubin 1.6H, Direct Bilirubin 0.9H, Aspartate Amino Transf (AST/SGOT) 95H, Alanine Aminotransferase (ALT/SGPT) 82H, Alkaline Phosphatase 466H, Total Creatine Kinase 9L, Total Protein 7.0, Albumin 2.1L, Globulin 4.9, Albumin/Globulin Ratio 0.4L 08/14/20 15:00: Tawnya-Keane Virus Capsid Ag IgM Ab <36.0, Hepatitis A IgM Antibody Negative, Hepatitis B Surface Antigen Negative, Hepatitis B Core IgM Antibody Negative, Hepatitis C Antibody <0.1, Herpes Simplex Virus I IgM Ab (IFA) [Pending], Herpes Simplex Virus II IgM Ab (IFA [Pending], Monoscreen [Pending] 08/14/20 16:32: POC Whole Blood Glucose 92 08/15/20 05:00: White Blood Count 33.9*H, Red Blood Count 2.27L, Hemoglobin 7.1L, Hematocrit 21.8L, Mean Corpuscular Volume 96, Mean Corpuscular Hemoglobin 31.5H, Mean Corpuscular Hemoglobin Concent 32.8, Red Cell Distribution Width 19.3H, Platelet Count 297, Mean Platelet Volume 8.6, Neutrophils (%) (Auto) , Lymphocytes (%) (Auto) , Monocytes (%) (Auto) , Eosinophils (%) (Auto) , Basophils (%) (Auto) , Neutrophils % (Manual) [Pending], Lymphocytes % (Manual) [Pending], Platelet Estimate [Pending], Platelet Morphology [Pending], Random Vancomycin Level 16.3 Height (Feet): 5 Height (Inches): 10.00 Weight (Pounds): 112 Objective General Appearance: WD/WN, lethargic EENT: normal ENT inspection Neck: normal alignment Cardiovascular: normal peripheral pulses, normal rate Respiratory/Chest: chest wall non-tender, lungs clear, normal breath sounds Abdomen: normal bowel sounds, non tender, soft, no organomegaly Edema: no edema noted Arm (L), no edema noted Arm (R) Neurologic: unresponsive Lalo Celaya MD Aug 15, 2020 08:58
--- NOTE | 2020-08-15 09:25 | NUR ---
NURSE NOTES: Dr. Celaya made aware of hgb of 7.1 from 7.8 yesterday. NNO. Will cont. to monitor.
[2020-08-15] MEDS: Colistin for inhalation INH SCH ×2 (10:35→22:04)
[2020-08-15] MEDS: Morphine Sulfate 2mg/ml Inj(IV/IM USE ONLY) IVP PRN ×3 (10:43→20:46)
--- NOTE | 2020-08-15 10:50 | Infectious Diseases Prog Note ---
"Assessment/Plan Assessment/Plan antibiotics : vancomycin iv, cefepime, inhaled colistin A 1. MRSA sepsis 2. MRSA | serratia | pseudomonas pneumonia 3. respiratory failure 4. sickle cell disease 5. anemia 6. leucocytosis increased 7. seizures P 1. continue iv vancomycin 6 more days 2. continue inhaled colistin 4 more days 3. continue cefepime 5 more days 4. will follow up cultures Subjective ROS Limited/Unobtainable: Yes Allergies: Coded Allergies: ADHESIVE TAPE (Verified Allergy, Unknown, 07/20/20) Uncoded Allergies: TAPE (Allergy, Unknown, 08/07/20) Objective Last 24 Hour Vital Signs Date Time Temp Pulse Resp B/P (MAP) Pulse Ox O2 Delivery O2 Flow Rate FiO2 08/15/20 08:00 97.7 72 20 110/54 (72) 95 08/15/20 07:22 65 18 40 08/15/20 04:00 98.5 61 20 114/58 (76) 100 61 08/15/20 04:00 40 08/15/20 04:00 Mechanical Ventilator 08/15/20 03:43 69 18 40 08/15/20 03:31 64 08/15/20 00:00 98.1 80 18 117/72 (87) 100 80 08/15/20 00:00 Mechanical Ventilator 08/14/20 23:26 74 08/14/20 23:01 74 18 100 Mechanical Ventilator 40 78 19 40 08/14/20 21:45 98.3 08/14/20 20:00 40 08/14/20 20:00 97.9 80 18 151/61 (91) 100 80 08/14/20 20:00 Mechanical Ventilator 08/14/20 19:46 71 18 40 08/14/20 19:01 78 08/14/20 16:00 82 08/14/20 16:00 40 08/14/20 16:00 98.3 81 18 117/70 (86) 100 81 08/14/20 16:00 Mechanical Ventilator 08/14/20 15:48 81 18 40 08/14/20 12:00 40 08/14/20 12:00 97.9 80 18 110/70 (83) 100 80 08/14/20 12:00 83 08/14/20 12:00 Mechanical Ventilator 08/14/20 10:59 95 18 40 Height (Feet): 5 Height (Inches): 10.00 Weight (Pounds): 112 HEENT: status post trach Respiratory/Chest: lungs clear Cardiovascular: normal rate, regular rhythm, no gallop/murmur Abdomen: soft, non tender, other - GT Extremities: no edema, other - right arm PICC Microbiology Date/Time Source Procedure Growth Status 08/13/20 16:16 Stool Clostridium difficile Toxin Assay - Final Complete Laboratory Tests Test 08/14/20 11:09 08/14/20 15:00 08/14/20 16:32 08/15/20 05:00 White Blood Count 52.6 K/UL (4.8-10.8) *H 33.9 K/UL (4.8-10.8) *H Red Blood Count 2.41 M/UL (4.70-6.10) L 2.27 M/UL (4.70-6.10) L Hemoglobin 7.8 G/DL (14.2-18.0) L 7.1 G/DL (14.2-18.0) L Hematocrit 22.8 % (42.0-52.0) L 21.8 % (42.0-52.0) L Mean Corpuscular Volume 94 FL (80-99) 96 FL (80-99) Mean Corpuscular Hemoglobin 32.1 PG (27.0-31.0) H 31.5 PG (27.0-31.0) H Mean Corpuscular Hemoglobin Concent 34.0 G/DL (32.0-36.0) 32.8 G/DL (32.0-36.0) Red Cell Distribution Width 18.2 % (11.6-14.8) H 19.3 % (11.6-14.8) H Platelet Count 260 K/UL (150-450) 297 K/UL (150-450) Mean Platelet Volume 9.1 FL (6.5-10.1) 8.6 FL (6.5-10.1) Neutrophils (%) (Auto) % (45.0-75.0) % (45.0-75.0) Lymphocytes (%) (Auto) % (20.0-45.0) % (20.0-45.0) Monocytes (%) (Auto) % (1.0-10.0) % (1.0-10.0) Eosinophils (%) (Auto) % (0.0-3.0) % (0.0-3.0) Basophils (%) (Auto) % (0.0-2.0) % (0.0-2.0) Differential Total Cells Counted 100 100 Neutrophils % (Manual) 87 % (45-75) H 89 % (45-75) H Lymphocytes % (Manual) 1 % (20-45) L 6 % (20-45) L Monocytes % (Manual) 6 % (1-10) 4 % (1-10) Eosinophils % (Manual) 6 % (0-3) H 1 % (0-3) Basophils % (Manual) 0 % (0-2) 0 % (0-2) Band Neutrophils 0 % (0-8) 0 % (0-8) Nucleated Red Blood Cells 3 /100 WBC Platelet Estimate Adequate Adequate Platelet Morphology Normal Normal Hypochromasia 3+ 1+ Anisocytosis 1+ 2+ Sodium Level 144 MMOL/L (136-145) Potassium Level 4.3 MMOL/L (3.5-5.1) Chloride Level 111 MMOL/L (98-107) H Carbon Dioxide Level 23 MMOL/L (21-32) Anion Gap 10 mmol/L (5-15) Blood Urea Nitrogen 25 mg/dL (7-18) H Creatinine 1.4 MG/DL (0.55-1.30) H Estimat Glomerular Filtration Rate > 60 mL/min (>60) Glucose Level 79 MG/DL (74-106) Calcium Level 8.5 MG/DL (8.5-10.1) Magnesium Level 2.4 MG/DL (1.8-2.4) Total Bilirubin 1.6 MG/DL (0.2-1.0) H Direct Bilirubin 0.9 MG/DL (0.0-0.3) H Aspartate Amino Transf (AST/SGOT) 95 U/L (15-37) H Alanine Aminotransferase (ALT/SGPT) 82 U/L (12-78) H Alkaline Phosphatase 466 U/L (46-116) H Total Creatine Kinase 9 U/L (26-308) L Total Protein 7.0 G/DL (6.4-8.2) Albumin 2.1 G/DL (3.4-5.0) L Globulin 4.9 g/dL Albumin/Globulin Ratio 0.4 (1.0-2.7) L Tawnya-Keane Virus Capsid Ag IgM Ab <36.0 U/mL (0.0-35.9) Hepatitis A IgM Antibody Negative (Negative) Hepatitis B Surface Antigen Negative (Negative) Hepatitis B Core IgM Antibody Negative (Negative) Hepatitis C Antibody <0.1 s/co ratio Herpes Simplex Virus I IgM Ab (IFA) Pending Herpes Simplex Virus II IgM Ab (IFA Pending Monoscreen Pending POC Whole Blood Glucose 92 MG/DL (74-106) Random Vancomycin Level 16.3 ug/mL Current Medications Medications (Trade) Dose Ordered Sig/Piedad Route PRN Reason Start Time Stop Time Status Last Admin Dose Admin Acetaminophen (Tylenol) 650 mg Q6H PRN GT Temp >100.5 08/10/20 20:20 09/09/20 20:19 08/12/20 23:42 Albuterol Sulfate (Proventil) 2.5 mg Q4H PRN HHN Shortness of Breath 08/10/20 20:20 08/15/20 20:19 Baclofen (Lioresal) 10 mg THREE TIMES A DAY GT 08/11/20 09:00 09/07/20 08:59 08/15/20 08:25 Barium Sulfate (Readi-Cat 2) 450 ml NOW PRN ORAL Radiology Procedure 08/13/20 12:00 08/15/20 11:53 Cefepime HCl 2 gm/ Dextrose 55 ml @ 110 mls/hr EVERY 12 HOURS IVPB 08/14/20 13:00 08/21/20 12:59 08/15/20 08:36 Chlorhexidine Gluconate (Christy-Hex 2%) 1 applic DAILY@1999 TOPIC 08/14/20 20:00 11/12/20 19:59 08/14/20 20:00 Colistimethate Sodium (Colistin *inhalation use only*) 75 mg Q12HR@10,22 INH 08/13/20 22:00 08/20/20 21:59 08/15/20 10:35 Dextrose/Sodium Chloride 1,000 ml @ 75 mls/hr [id number] IV 08/10/20 20:19 09/09/20 20:18 08/15/20 06:53 Famotidine (Pepcid) 20 mg DAILY GT 08/11/20 09:00 11/06/20 08:59 08/15/20 08:25 Folic Acid (Folate) 1 mg DAILY GT 08/11/20 09:00 09/07/20 08:59 08/15/20 08:26 Heparin Sodium (Porcine) (Heparin 5000 units/ml) 5,000 units EVERY 12 HOURS SUBQ 08/10/20 21:00 09/22/20 20:59 Heparin Sodium/ Sodium Chloride (Heparin 1000 units/500ml Premix) 1,000 unit ONCE PRN IV PICC PLACEMENT 08/14/20 12:00 08/16/20 23:59 Levetiracetam 100 ml @ 400 mls/hr Q12HR IVPB 08/14/20 10:00 11/12/20 09:59 08/15/20 08:34 Lidocaine HCl (Xylocaine 1% 30ml) 30 ml ONCE PRN INJ PICC PLACEMENT 08/14/20 11:00 08/16/20 23:59 Lorazepam (Ativan 2mg/ml 1ml) 1 mg Q6H PRN IV For Anxiety 08/10/20 20:21 08/17/20 20:20 08/12/20 21:58 Metoclopramide HCl (Reglan) 5 mg Q6H PRN IVP Nausea & Vomiting 08/13/20 22:15 09/12/20 22:14 Morphine Sulfate (Morphine Sulfate) 2 mg Q3H PRN IVP mild pain 08/12/20 23:00 08/19/20 22:59 08/15/20 10:43 Morphine Sulfate (Morphine Sulfate) 4 mg Q3H PRN IVP moderate pain 08/12/20 23:00 08/19/20 22:59 08/12/20 23:07 Multivitamins (Multivitamins) 1 tab DAILY GT 08/11/20 09:00 09/07/20 08:59 08/15/20 08:26 Pantoprazole (Protonix) 40 mg EVERY 12 HOURS IVP 08/13/20 22:15 09/12/20 22:14 08/15/20 08:30 Vancomycin HCl (Vanco pharmacy to dose) 1 ea DAILY PRN MISC Per rx protocol 08/11/20 09:00 09/07/20 06:14 Isabelle Degroot MD Aug 15, 2020 10:50"
--- NOTE | 2020-08-15 11:33 | Critical Care Progress Note ---
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 Port-A-Cath Status post removal of implanted right chest wall Port-A-Cath Sickle cell crisis Sickle cell anemia Chronic respiratory failure, ventilator dependent, with tracheostomy status Transaminitis Seizure disorder acute pneumonia leukocytosis recurrent sepsis PLAN care noted IV antibiotics noted respiratory care Ventilatory support- pressure control; as is volumes adequate sedation as needed SNF meds supportive care suction no wean planned still ill; repeat cbc oxygen therapy and titrate prognosis guarded ID follow up and recommendations medications/laboratory data/nursing notes reviewed in detail note reviewed and edited care discussed with RN and RT Critical Care - Subjective Interval Events: on vent at present pressures noted ROS Limited/Unobtainable: Yes Condition: unchanged EKG Rhythm: Sinus Rhythm Residuals: minimal Tube Feeding Tolerated: yes I&O: Intake and Output 08/14/20 08/15/20 19:00 07:00 Intake Total 75 ml 1159.3 ml Output Total 2000 ml Balance -1925 ml 1159.3 ml IV Total 75 ml 1159.3 ml Output Urine Total 2000 ml Critical Care - Objective Last 24 Hour Vital Signs Date Time Temp Pulse Resp B/P (MAP) Pulse Ox O2 Delivery O2 Flow Rate FiO2 08/15/20 10:58 67 19 99 Mechanical Ventilator 40 72 19 40 08/15/20 08:00 97.7 72 20 110/54 (72) 95 08/15/20 07:22 65 18 40 08/15/20 04:00 98.5 61 20 114/58 (76) 100 61 08/15/20 04:00 40 08/15/20 04:00 Mechanical Ventilator 08/15/20 03:43 69 18 40 08/15/20 03:31 64 08/15/20 00:00 98.1 80 18 117/72 (87) 100 80 08/15/20 00:00 Mechanical Ventilator 08/14/20 23:26 74 08/14/20 23:01 74 18 100 Mechanical Ventilator 40 78 19 40 08/14/20 21:45 98.3 08/14/20 20:00 40 08/14/20 20:00 97.9 80 18 151/61 (91) 100 80 08/14/20 20:00 Mechanical Ventilator 08/14/20 19:46 71 18 40 08/14/20 19:01 78 08/14/20 16:00 82 08/14/20 16:00 40 08/14/20 16:00 98.3 81 18 117/70 (86) 100 81 08/14/20 16:00 Mechanical Ventilator 08/14/20 15:48 81 18 40 08/14/20 12:00 40 08/14/20 12:00 97.9 80 18 110/70 (83) 100 80 08/14/20 12:00 83 08/14/20 12:00 Mechanical Ventilator Labs: Laboratory Tests Test 08/14/20 15:00 08/14/20 16:32 08/15/20 05:00 Tawnya-Keane Virus Capsid Ag IgM Ab <36.0 U/mL (0.0-35.9) Hepatitis A IgM Antibody Negative (Negative) Hepatitis B Surface Antigen Negative (Negative) Hepatitis B Core IgM Antibody Negative (Negative) Hepatitis C Antibody <0.1 s/co ratio Herpes Simplex Virus I IgM Ab (IFA) Pending Herpes Simplex Virus II IgM Ab (IFA Pending Monoscreen Pending POC Whole Blood Glucose 92 MG/DL (74-106) White Blood Count 33.9 K/UL (4.8-10.8) *H Red Blood Count 2.27 M/UL (4.70-6.10) L Hemoglobin 7.1 G/DL (14.2-18.0) L Hematocrit 21.8 % (42.0-52.0) L Mean Corpuscular Volume 96 FL (80-99) Mean Corpuscular Hemoglobin 31.5 PG (27.0-31.0) H Mean Corpuscular Hemoglobin Concent 32.8 G/DL (32.0-36.0) Red Cell Distribution Width 19.3 % (11.6-14.8) H Platelet Count 297 K/UL (150-450) Mean Platelet Volume 8.6 FL (6.5-10.1) Neutrophils (%) (Auto) % (45.0-75.0) Lymphocytes (%) (Auto) % (20.0-45.0) Monocytes (%) (Auto) % (1.0-10.0) Eosinophils (%) (Auto) % (0.0-3.0) Basophils (%) (Auto) % (0.0-2.0) Differential Total Cells Counted 100 Neutrophils % (Manual) 89 % (45-75) H Lymphocytes % (Manual) 6 % (20-45) L Monocytes % (Manual) 4 % (1-10) Eosinophils % (Manual) 1 % (0-3) Basophils % (Manual) 0 % (0-2) Band Neutrophils 0 % (0-8) Platelet Estimate Adequate Platelet Morphology Normal Hypochromasia 1+ Anisocytosis 2+ Random Vancomycin Level 16.3 ug/mL Objective: WDWN NAD reduced breath sounds bilaterally without rhonchi or wheeze [id number] without MRG NABS nontender GT no CCE reduced LOC Micro: Microbiology Date/Time Source Procedure Growth Status 08/13/20 16:16 Stool Clostridium difficile Toxin Assay - Final Complete James Nuñez MD Aug 15, 2020 11:33
[2020-08-15 12:00] VITALS: BP 111/68
--- NOTE | 2020-08-15 12:34 | Diagnostic Imaging Report ---
EXAM: CT CT Chest Abdomen Pelvis wo Con INDICATION: Sickle cell anemia. Severe sepsis and pneumonia. Shortness of breath, chest and abdominal pain.. COMPARISON: 08/08/2020 TECHNIQUE: Axial images were obtained through the chest, abdomen and pelvis without intravenous contrast. Sagittal and coronal reformats are generated. All CT scans at this facility are performed using dose modulation techniques as appropriate to a performed exam including the following: automated exposure control with adjustment of the mA and/or kV according to patient size. RADIATION DOSE: CTDIvol: 4.4 mGy DLP: 314 mGy-cm Dose information generated by the CT scanner is available in PACS. CHEST FINDINGS: There is a tracheostomy in place. Bilateral dependent infiltrates/consolidation with air bronchogram noted representing bilateral pneumonia. Some hazy scattered infiltrates also noted in the upper lobes.. Cardiac and mediastinal structures are within normal limits. There is no pathologic size adenopathy. There is no effusion. ABDOMEN/PELVIS FINDINGS: The liver is homogeneous. We cannot identify a normal spleen. There is dense crescentic calcification in the left upper quadrant at the expected location of the spleen. Gallbladder is absent. The pancreas is unremarkable. Adrenals are normal in morphology. There is a small punctate cortical calcification left kidney. No hydronephrosis bilaterally There is a G-tube in place. Gas-filled bowel loops identified throughout the abdomen and pelvis. No discrete transition point or obstruction. Appendix partially visualized. There is some free fluid in the pelvis. There is no free air. There is a mildly prominent lymph nodes noted in the upper to mid retroperitoneum noted of undetermined etiology or significance. Rivera catheter noted in the bladder. The reservoir for the penile prosthesis is identified in the left lower pelvis. There is a right femoral venous catheter in place. Diffuse sclerosis of the bony pelvis and hips noted of undetermined etiology. IMPRESSION: BILATERAL LOWER LOBE PNEUMONIAS. ALSO SOME HAZY INFILTRATES IN THE UPPER LOBES. A NORMAL SPLEEN IS NOT VISUALIZED. THERE IS A DENSE CRESCENTIC CALCIFICATION LEFT UPPER QUADRANT AT THE EXPECTED LOCATION OF THE SPLEEN. 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 PUNCTATE CORTICAL CALCIFICATION LEFT KIDNEY. NO HYDRONEPHROSIS. PROMINENT LYMPH NODES IN THE UPPER TO MID RETROPERITONEUM OF UNDETERMINED ETIOLOGY OR SIGNIFICANCE. G-TUBE, RIVERA CATHETER, RIGHT FEMORAL CATHETER AND PENILE PROSTHESIS NOTED IN PLACE. MILD DIFFUSE SCLEROSIS OF THE BONY PELVIS AND BOTH HIPS OF UNDETERMINED ETIOLOGY. QUESTION HISTORY OF RENAL OSTEODYSTROPHY.
--- NOTE | 2020-08-15 15:30 | NUR ---
DEPALLETIZER OPERATOR NOTE SPOKE WITH TRISTIN FROM [email or web address] [facility] REVIEWED BY HER AUDIT MACHINE OPERATOR AND HE IS REQUESTING A CUSTOMER SERVICE REP TO SEE THE PATIENT. DEPALLETIZER OPERATOR TO SPEAK WITH FOR THE REQUEST. Addendum: 08/15/20 at 1627 by ALLEN ANAYA LVN LVN DISCUSSED WITH DR EDWARDS AND HE STATED HE ALREADY CALLED [facility] TO SEE PATIENT Addendum: 08/15/20 at 1627 by ALLEN ANAYA LVN LVN INTERQUAL MET
[2020-08-15] MEDS ORDERED: Tubing Blood Filter IV ONE (15:46)
[2020-08-15] MEDS ORDERED: D5 1/2NS 1000ml IV ONE (15:46)
[2020-08-15] MEDS ORDERED: NS 275ml ONE (15:46)
[2020-08-15] MEDS ORDERED: Tubing IV Secondary IV ONE (15:46)
--- NOTE | 2020-08-15 17:57 | NUR ---
NURSE NOTES: Pt offered sponge bath but refused twice.
--- NOTE | 2020-08-15 18:14 | Surgery Progress Note ---
Surgery Progress Note Subjective Additional Comments persistent leukocytosis imaging reviewed comfortable and awake Objective Last 24 Hour Vital Signs Date Time Temp Pulse Resp B/P (MAP) Pulse Ox O2 Delivery O2 Flow Rate FiO2 08/15/20 16:21 71 08/15/20 16:00 40 08/15/20 16:00 Mechanical Ventilator 08/15/20 14:47 74 23 40 08/15/20 12:00 Mechanical Ventilator 08/15/20 12:00 74 20 111/68 (82) 100 08/15/20 12:00 40 08/15/20 12:00 64 08/15/20 10:58 67 19 99 Mechanical Ventilator 40 72 19 40 08/15/20 08:00 Mechanical Ventilator 08/15/20 08:00 40 08/15/20 08:00 97.7 72 20 110/54 (72) 95 08/15/20 07:51 73 08/15/20 07:22 65 18 40 08/15/20 04:00 98.5 61 20 114/58 (76) 100 61 08/15/20 04:00 40 08/15/20 04:00 Mechanical Ventilator 08/15/20 03:43 69 18 40 08/15/20 03:31 64 08/15/20 00:00 98.1 80 18 117/72 (87) 100 80 08/15/20 00:00 Mechanical Ventilator 08/14/20 23:26 74 08/14/20 23:01 74 18 100 Mechanical Ventilator 40 78 19 40 08/14/20 21:45 98.3 08/14/20 20:00 40 08/14/20 20:00 97.9 80 18 151/61 (91) 100 80 08/14/20 20:00 Mechanical Ventilator 08/14/20 19:46 71 18 40 08/14/20 19:01 78 I&O Intake and Output 08/14/20 08/15/20 18:59 06:59 Intake Total 75 ml 1159.3 ml Output Total 2000 ml Balance 75 ml -840.7 ml IV Total 75 ml 1159.3 ml Output Urine Total 2000 ml Cardiovascular: RSR Respiratory: decreased breath sounds Abdomen: soft, non-tender, present bowel sounds Extremities: no edema, no tenderness, no cyanosis Laboratory Tests Test 08/15/20 05:00 White Blood Count 33.9 K/UL (4.8-10.8) *H Red Blood Count 2.27 M/UL (4.70-6.10) L Hemoglobin 7.1 G/DL (14.2-18.0) L Hematocrit 21.8 % (42.0-52.0) L Mean Corpuscular Volume 96 FL (80-99) Mean Corpuscular Hemoglobin 31.5 PG (27.0-31.0) H Mean Corpuscular Hemoglobin Concent 32.8 G/DL (32.0-36.0) Red Cell Distribution Width 19.3 % (11.6-14.8) H Platelet Count 297 K/UL (150-450) Mean Platelet Volume 8.6 FL (6.5-10.1) Neutrophils (%) (Auto) % (45.0-75.0) Lymphocytes (%) (Auto) % (20.0-45.0) Monocytes (%) (Auto) % (1.0-10.0) Eosinophils (%) (Auto) % (0.0-3.0) Basophils (%) (Auto) % (0.0-2.0) Differential Total Cells Counted 100 Neutrophils % (Manual) 89 % (45-75) H Lymphocytes % (Manual) 6 % (20-45) L Monocytes % (Manual) 4 % (1-10) Eosinophils % (Manual) 1 % (0-3) Basophils % (Manual) 0 % (0-2) Band Neutrophils 0 % (0-8) Platelet Estimate Adequate Platelet Morphology Normal Hypochromasia 1+ Anisocytosis 2+ Random Vancomycin Level 16.3 ug/mL Plan Problems: (1) Pneumonia (2) Sickle cell anemia (3) Tachycardia (4) Severe sepsis (5) Sickle cell crisis (6) Sepsis Assessment & Plan: 35-year-old male sickle cell multiple comorbidities history of craniotomy trach feeding tube prior port infected removed see prior admission and consult and operative notes. Currently presents with significant leukocytosis fevers hypotension in intensive care unit wound site evaluated unlikely etiology. Trach evaluated may consider changing. LFTs noted elevated. Ultrasound ordered pending results trend labs continue IV antibiotics appreciate infectious disease input will follow with recommendations thank you for let me participate in patient's care KUB and US noted labs reviewed transfuse prbc prn trach change peg changed line out picc placed pulmonary arteries: Evaluation for pulmonary embolus is limited due to breathing motion artifact. No central pulmonary emboli are identified. Aorta: No acute findings. No thoracic aortic aneurysm. Lungs: There are moderately consolidating infiltrates identified in both lower lobes dependently with mild additional patchy infiltrates dependently in both upper lobes. The findings are consistent with bilateral nonspecific pneumonia. Aspiration pneumonia could give this appearance. The infiltrates are only somewhat typical of Covid 19. Confidence is immediate. Pleural space: Unremarkable. No significant effusion. No pneumothorax. Heart: Unremarkable. No cardiomegaly. No significant pericardial effusion. No evidence of RV dysfunction. Bones/joints: No acute fracture. No dislocation. Soft tissues: Unremarkable. Lymph nodes: Unremarkable. No enlarged lymph nodes. Tubes, lines and devices: There is a tracheostomy tube in good position. IMPRESSION: 1. There are moderately consolidating infiltrates identified in both lower lobes dependently with mild additional patchy infiltrates dependently in both upper lobes. The findings are consistent with bilateral nonspecific pneumonia. Aspiration pneumonia could give this appearance. The infiltrates are only somewhat typical of Covid 19. Confidence is immediate. 2. Evaluation for pulmonary embolus is limited due to breathing motion artifact. No central pulmonary emboli are identified. The liver is homogeneous. We cannot identify a normal spleen. There is dense crescentic calcification in the left upper quadrant at the expected location of the spleen. Gallbladder is absent. The pancreas is unremarkable. Adrenals are normal in morphology. There is a small punctate cortical calcification left kidney. No hydronephrosis bilaterally There is a G-tube in place. Gas-filled bowel loops identified throughout the abdomen and pelvis. No discrete transition point or obstruction. Appendix partially visualized. There is some free fluid in the pelvis. There is no free air. There is a mildly prominent lymph nodes noted in the upper to mid retroperitoneum noted of undetermined etiology or significance. Rivera catheter noted in the bladder. The reservoir for the penile prosthesis is identified in the left lower pelvis. There is a right femoral venous catheter in place. Diffuse sclerosis of the bony pelvis and hips noted of undetermined etiology. IMPRESSION: BILATERAL LOWER LOBE PNEUMONIAS. ALSO SOME HAZY INFILTRATES IN THE UPPER LOBES. A NORMAL SPLEEN IS NOT VISUALIZED. THERE IS A DENSE CRESCENTIC CALCIFICATION LEFT UPPER QUADRANT AT THE EXPECTED LOCATION OF THE SPLEEN. 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 PUNCTATE CORTICAL CALCIFICATION LEFT KIDNEY. NO HYDRONEPHROSIS. PROMINENT LYMPH NODES IN THE UPPER TO MID RETROPERITONEUM OF UNDETERMINED ETIOLOGY OR SIGNIFICANCE. G-TUBE, RIVERA CATHETER, RIGHT FEMORAL CATHETER AND PENILE PROSTHESIS NOTED IN PLACE. MILD DIFFUSE SCLEROSIS OF THE BONY PELVIS AND BOTH HIPS OF UNDETERMINED ETIOLOGY. QUESTION HISTORY OF RENAL OSTEODYSTROPHY. (7) Port-A-Cath in place Assessment & Plan: prior removal for infection site okay dressings changed no active infection from wound picc Harman Zhao Aug 15, 2020 18:14
--- NOTE | 2020-08-15 19:23 | NUR ---
NURSE HAND-OFF REPORT: Important Events on Shift:none Patient Status: stable Diet: Glucerna 1.5 40 mL/hr Pending Orders: [] Pending Results/Labs:[] Pending MD notification:[] Latest Vital Signs: Temperature 97.7 , Pulse 62 , B/P 111 /68 , Respiratory Rate 20 , O2 SAT 100 , Mechanical Ventilator, O2 Flow Rate . Vital Sign Comment: [] EKG Rhythm: Sinus Rhythm Rhythm change?: N MD Notified?: N -Dr Regan JIMENEZ Response: Latest Stevens Fall Score: 50 Fall Risk: High Risk Safety Measures: Call light Within Reach, Bed Alarm Zone 1, Side Rails Side Rails x3, Bed position Low and Locked. Fall Precautions: Yellow Socks Yellow Gown Door Sign Patient Fall Education Report given to Robbie Presley
--- NOTE | 2020-08-15 19:25 | NUR ---
"NURSE NOTES: Received report from Elizabeth with update Pt alert, responsive to verbal/tactile stimuli. PERRLA. Continues to c/o generalized pain 09/09. Morphine IVP PRN administered. Vent settings: A/C 18 | 40% fiO2 saturating at 95%. EKG SR. 62 bpm. New SHER PICC patent and intact running D51/2 N/S at 75 cc. No bleeding on right fem TLC site. G-tube draining by gravity. Continued NPO until further orders. 10 cc residual noted. Bed kept in lowest and locked position. Bed alarm on. Call light within reach. Will continue to monitor."
[2020-08-15 20:00] VITALS: BP 126/70
[2020-08-15] MEDS: Dyna-Hex 2% Top Sol 2oz TOPIC SCH (20:44)
--- NOTE | 2020-08-15 22:19 | General Progress Note ---
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 +/- sepsis - sickle cell - severe anemia - transfused - hypotension - TF intolerance - leukocytosis/PNA/Sepsis - seizure d/o - s/p trach and PEG - guarded Recommendations - Restart TF - PPI - GT care - Elevate HOB - check GABINO/AMA/hepatitis serologies - hydration Subjective Allergies: Coded Allergies: ADHESIVE TAPE (Verified Allergy, Unknown, 07/20/20) Uncoded Allergies: TAPE (Allergy, Unknown, 08/07/20) Subjective above noted NAD , Calm CT results noted --> no acute pathology Objective Last 24 Hour Vital Signs Date Time Temp Pulse Resp B/P (MAP) Pulse Ox O2 Delivery O2 Flow Rate FiO2 08/15/20 22:07 65 19 99 Mechanical Ventilator 40 68 19 40 08/15/20 20:00 97.3 65 20 126/70 (88) 95 08/15/20 18:30 62 20 40 08/15/20 16:21 71 08/15/20 16:00 40 08/15/20 16:00 Mechanical Ventilator 08/15/20 14:47 74 23 40 08/15/20 12:00 Mechanical Ventilator 08/15/20 12:00 74 20 111/68 (82) 100 08/15/20 12:00 40 08/15/20 12:00 64 08/15/20 10:58 67 19 99 Mechanical Ventilator 40 72 19 40 08/15/20 08:00 Mechanical Ventilator 08/15/20 08:00 40 08/15/20 08:00 97.7 72 20 110/54 (72) 95 08/15/20 07:51 73 08/15/20 07:22 65 18 40 08/15/20 04:00 98.5 61 20 114/58 (76) 100 61 08/15/20 04:00 40 08/15/20 04:00 Mechanical Ventilator 08/15/20 03:43 69 18 40 08/15/20 03:31 64 08/15/20 00:00 98.1 80 18 117/72 (87) 100 80 08/15/20 00:00 Mechanical Ventilator 08/14/20 23:26 74 08/14/20 23:01 74 18 100 Mechanical Ventilator 40 78 19 40 Intake and Output 08/14/20 08/15/20 19:00 07:00 Intake Total 75 ml 1159.3 ml Output Total 2000 ml Balance -1925 ml 1159.3 ml IV Total 75 ml 1159.3 ml Output Urine Total 2000 ml Laboratory Tests 08/15/20 05:00: White Blood Count 33.9*H, Red Blood Count 2.27L, Hemoglobin 7.1L, Hematocrit 21.8L, Mean Corpuscular Volume 96, Mean Corpuscular Hemoglobin 31.5H, Mean Corpuscular Hemoglobin Concent 32.8, Red Cell Distribution Width 19.3H, Platelet Count 297, Mean Platelet Volume 8.6, Neutrophils (%) (Auto) , Lymphocytes (%) (Auto) , Monocytes (%) (Auto) , Eosinophils (%) (Auto) , Basophils (%) (Auto) , Differential Total Cells Counted 100, Neutrophils % ( Manual) 89H, Lymphocytes % (Manual) 6L, Monocytes % (Manual) 4, Eosinophils % ( Manual) 1, Basophils % (Manual) 0, Band Neutrophils 0, Platelet Estimate Adequate, Platelet Morphology Normal, Hypochromasia 1+, Anisocytosis 2+, Random Vancomycin Level 16.3 Height (Feet): 5 Height (Inches): 10.00 Weight (Pounds): 112 Objective Thin AA Man HEENT s/p craniotomy neck (+) trach Coarse BS RR/tachy abd soft (+) GT no edema Nasrin Stiles MD Aug 15, 2020 22:19
[2020-08-16] VITALS: BP 121/69
--- NOTE | 2020-08-16 | NUR ---
NURSE NOTES: New orders from Dr. Stiles to restart tube feeding with Vital AF 1.2 at a continuous rate of [360 ml/hr] with goals of 70. Will clarify in AM and initiate plan of care.
--- NOTE | 2020-08-16 03:05 | NUR ---
RESPIRATORY NOTE: PT REMAINED STABLE ON CMV. SX PRN. AIRWAY IS SECURE AND PATENT. VENT CIRCUIT IS SECURE AND OUT OF THE WAY. NO S/S OF RESPIRATORY DISTRESS NOTED.
[2020-08-16 04:00] VITALS: BP 111/73
[2020-08-16 05:42] LABS: HEMOGLOBIN 7.3 G/DL (14.2-18.0); MEAN CORPUSCULAR VOLUME 96 FL (80-99); PLATELET COUNT 328 K/UL (150-450); RED BLOOD COUNT 2.29 M/UL (4.70-6.10); RED CELL DISTRIBUTION WIDTH 18.7 % (11.6-14.8)
--- NOTE | 2020-08-16 06:00 | NUR ---
NURSE NOTES: Patient asleep and resting comfortably throughout the night. Resistive to bed bath, oral care and combative towards staff. Offered pt wipes to clean himself. Linens changed. Started pt. on Vital AF as ordered. WBC appears to be trending down. Afebrile. Will continue monitoring.
[2020-08-16 06:10] LABS: ALANINE AMINOTRANSFERASE 46 U/L (12-78); ALBUMIN 1.9 G/DL (3.4-5.0); ALBUMIN/GLOBULIN RATIO 0.4 (1.0-2.7); ALKALINE PHOSPHATASE 370 U/L (46-116); ANION GAP 10 mmol/L (5-15); ASPARTATE AMINO TRANSFERASE 45 U/L (15-37); BILIRUBIN,TOTAL 1.1 MG/DL (0.2-1.0); BLOOD UREA NITROGEN 20 mg/dL (7-18); CALCIUM 7.9 MG/DL (8.5-10.1); CARBON DIOXIDE 22 MMOL/L (21-32); CHLORIDE 116 MMOL/L (98-107); CREATININE 1.3 MG/DL (0.55-1.30); POTASSIUM 3.6 MMOL/L (3.5-5.1); SODIUM 148 MMOL/L (136-145)
[2020-08-16 06:12] LABS: WHITE BLOOD COUNT 30.7 K/UL (4.8-10.8)
[2020-08-16 06:24] LABS: BILIRUBIN,DIRECT 0.5 MG/DL (0.0-0.3)
--- NOTE | 2020-08-16 07:05 | NUR ---
RESPIRATORY NOTE: PT RECEIVED ON CMV WITH CURRENT SETTINGS. AC/PC: 18, Pi 45, 40%, +0. ALARMS ARE ON AND AUDIBLE. VENT CIRCUIT IS SECURE AND OUT OF THE WAY. NO S/S OF RESPIRATORY DISTRESS NOTED AT THIS TIME. WILL CONTINUE TO MONITOR.
--- NOTE | 2020-08-16 07:35 | NUR ---
NURSE NOTES: Received report from ARLYN Valdes under the care of Dr. Celaya. Alert and Oriented x 3. 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 On fall risk, aspiration precaution and seizure precaution. Patient on ventilator, tolerating settings well. Oral and trach care performed and tolerated well. Receiving GT Vital AF 1.2 @ 20cc/hr to goal of 70cc/hr. PICC on R upper arm and receiving IV fluids D% 1/2NS @ 75cc/hr, infusing well. PICC line patent and intact. Full AM body assessment done, will continue to monitor.
--- NOTE | 2020-08-16 07:40 | NUR ---
NURSE HAND-OFF REPORT: Important Events on Shift: Restarted GT Feeding Patient Status: Stable Diet: Vital AF Pending Orders: N Pending Results/Labs: Y Pending MD notification:N Latest Vital Signs: Temperature 98.1 , Pulse 62 , B/P 111 /73 , Respiratory Rate 20 , O2 SAT 96 , Mechanical Ventilator, O2 Flow Rate . Vital Sign Comment: EKG Rhythm: Sinus Rhythm Rhythm change?: N MD Notified?: N -Dr Regan JIMENEZ Response: Latest Stevens Fall Score: 50 Fall Risk: High Risk Safety Measures: Call light Within Reach, Bed Alarm Zone 1, Side Rails Side Rails x3, Bed position Low and Locked. Fall Precautions: Yellow Socks Yellow Gown Door Sign Patient Fall Education Report given to ARLYN Lindsey.
[2020-08-16 08:00] VITALS: BP 115/65
[2020-08-16] MEDS: levETIRAcetam 1,000mg/NS100ml 100 ML IVPB SCH ×2 (09:00→20:26)
[2020-08-16] MEDS: Pantoprazole Inj IVP SCH ×2 (09:00→20:26)
[2020-08-16] MEDS: Heparin 5000 units/ml inj SUBQ SCH ×2 (09:00→20:05)
--- NOTE | 2020-08-16 09:46 | Critical Care Progress Note ---
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 Port-A-Cath Status post removal of implanted right chest wall Port-A-Cath Sickle cell crisis Sickle cell anemia Chronic respiratory failure, ventilator dependent, with tracheostomy status Transaminitis Seizure disorder acute pneumonia leukocytosis recurrent sepsis PLAN care noted IV antibiotics noted respiratory care Ventilatory support- pressure control; as is volumes adequate sedation as needed SNF meds supportive care suction no wean planned still ill; repeat cbc oxygen therapy and titrate prognosis guarded ID follow up and recommendations medications/laboratory data/nursing notes reviewed in detail note reviewed and edited care discussed with RN and RT Critical Care - Subjective ROS Limited/Unobtainable: Yes EKG Rhythm: Sinus Rhythm Residuals: minimal Tube Feeding Tolerated: yes I&O: Intake and Output 08/15/20 08/16/20 19:00 07:00 Intake Total 900 ml 1132.5 ml Output Total 960 ml 110 ml Balance -60 ml 1022.5 ml Free Water 40 ml IV Total 900 ml 1062.5 ml Tube Feeding 30 ml Output Urine Total 850 ml Gastric Drainage Total 100 ml Other 10 ml 110 ml Critical Care - Objective Last 24 Hour Vital Signs Date Time Temp Pulse Resp B/P (MAP) Pulse Ox O2 Delivery O2 Flow Rate FiO2 08/16/20 08:00 40 08/16/20 08:00 Mechanical Ventilator 08/16/20 08:00 60 08/16/20 08:00 97.9 65 20 115/65 (82) 94 08/16/20 04:00 40 08/16/20 04:00 60 08/16/20 04:00 Mechanical Ventilator 08/16/20 04:00 98.1 62 20 111/73 (86) 96 08/16/20 02:44 60 18 40 08/16/20 00:00 97.2 65 20 121/69 (86) 95 08/16/20 00:00 Mechanical Ventilator 08/15/20 23:35 67 08/15/20 22:07 65 19 99 Mechanical Ventilator 40 68 19 40 08/15/20 21:16 97.7 08/15/20 20:00 97.3 65 20 126/70 (88) 95 08/15/20 20:00 62 08/15/20 20:00 40 08/15/20 20:00 Mechanical Ventilator 08/15/20 18:30 62 20 40 08/15/20 16:21 71 08/15/20 16:00 40 08/15/20 16:00 Mechanical Ventilator 08/15/20 14:47 74 23 40 08/15/20 12:00 Mechanical Ventilator 08/15/20 12:00 74 20 111/68 (82) 100 08/15/20 12:00 40 08/15/20 12:00 64 08/15/20 10:58 67 19 99 Mechanical Ventilator 40 72 19 40 Objective: WDWN NAD reduced breath sounds bilaterally without rhonchi or wheeze [id number] without MRG NABS nontender GT no CCE reduced LOC Micro: Microbiology Date/Time Source Procedure Growth Status 08/14/20 15:00 Blood Blood Culture - Preliminary NO GROWTH AFTER 24 HOURS Resulted 08/13/20 16:16 Stool Clostridium difficile Toxin Assay - Final Complete James Nuñez MD Aug 16, 2020 09:46
[2020-08-16] MEDS: Cefepime HCl 2 GM in D5W 55 ML IVPB SCH ×2 (09:53→21:27)
[2020-08-16] MEDS: D5 1/2NS 1,000 ML IV SCH ×2 (10:08→23:31)
--- NOTE | 2020-08-16 10:42 | Infectious Diseases Prog Note ---
"Assessment/Plan Assessment/Plan antibiotics : vancomycin iv, cefepime, inhaled colistin A 1. MRSA sepsis 2. MRSA | serratia | pseudomonas pneumonia 3. respiratory failure 4. sickle cell disease 5. anemia 6. leucocytosis improving 7. seizures P 1. continue iv vancomycin 5 more days 2. continue inhaled colistin 3 more days 3. continue cefepime 4 more days 4. will follow up cultures Subjective ROS Limited/Unobtainable: Yes Allergies: Coded Allergies: ADHESIVE TAPE (Verified Allergy, Unknown, 07/20/20) Uncoded Allergies: TAPE (Allergy, Unknown, 08/07/20) Objective Last 24 Hour Vital Signs Date Time Temp Pulse Resp B/P (MAP) Pulse Ox O2 Delivery O2 Flow Rate FiO2 08/16/20 08:00 40 08/16/20 08:00 Mechanical Ventilator 08/16/20 08:00 60 08/16/20 08:00 97.9 65 20 115/65 (82) 94 08/16/20 04:00 40 08/16/20 04:00 60 08/16/20 04:00 Mechanical Ventilator 08/16/20 04:00 98.1 62 20 111/73 (86) 96 08/16/20 02:44 60 18 40 08/16/20 00:00 97.2 65 20 121/69 (86) 95 08/16/20 00:00 Mechanical Ventilator 08/15/20 23:35 67 08/15/20 22:07 65 19 99 Mechanical Ventilator 40 68 19 40 08/15/20 21:16 97.7 08/15/20 20:00 97.3 65 20 126/70 (88) 95 08/15/20 20:00 62 08/15/20 20:00 40 08/15/20 20:00 Mechanical Ventilator 08/15/20 18:30 62 20 40 08/15/20 16:21 71 08/15/20 16:00 40 08/15/20 16:00 Mechanical Ventilator 08/15/20 14:47 74 23 40 08/15/20 12:00 Mechanical Ventilator 08/15/20 12:00 74 20 111/68 (82) 100 08/15/20 12:00 40 08/15/20 12:00 64 08/15/20 10:58 67 19 99 Mechanical Ventilator 40 72 19 40 Height (Feet): 5 Height (Inches): 10.00 Weight (Pounds): 112 HEENT: status post trach Respiratory/Chest: lungs clear Cardiovascular: normal rate, regular rhythm, no gallop/murmur Abdomen: soft, non tender, other - GT Extremities: no edema, other - right arm PICC Microbiology Date/Time Source Procedure Growth Status 08/14/20 15:00 Blood Blood Culture - Preliminary NO GROWTH AFTER 24 HOURS Resulted 08/13/20 16:16 Stool Clostridium difficile Toxin Assay - Final Complete Laboratory Tests Test 08/16/20 04:00 White Blood Count 30.7 K/UL (4.8-10.8) *H Red Blood Count 2.29 M/UL (4.70-6.10) L Hemoglobin 7.3 G/DL (14.2-18.0) L Hematocrit 22.0 % (42.0-52.0) L Mean Corpuscular Volume 96 FL (80-99) Mean Corpuscular Hemoglobin 31.7 PG (27.0-31.0) H Mean Corpuscular Hemoglobin Concent 33.0 G/DL (32.0-36.0) Red Cell Distribution Width 18.7 % (11.6-14.8) H Platelet Count 328 K/UL (150-450) Mean Platelet Volume 7.8 FL (6.5-10.1) Neutrophils (%) (Auto) % (45.0-75.0) Lymphocytes (%) (Auto) % (20.0-45.0) Monocytes (%) (Auto) % (1.0-10.0) Eosinophils (%) (Auto) % (0.0-3.0) Basophils (%) (Auto) % (0.0-2.0) Differential Total Cells Counted 100 Neutrophils % (Manual) 83 % (45-75) H Lymphocytes % (Manual) 10 % (20-45) L Monocytes % (Manual) 4 % (1-10) Eosinophils % (Manual) 3 % (0-3) Basophils % (Manual) 0 % (0-2) Band Neutrophils 0 % (0-8) Platelet Estimate Adequate Platelet Morphology Normal Hypochromasia 3+ Anisocytosis 2+ Spherocytes 2+ Sodium Level 148 MMOL/L (136-145) H Potassium Level 3.6 MMOL/L (3.5-5.1) Chloride Level 116 MMOL/L (98-107) H Carbon Dioxide Level 22 MMOL/L (21-32) Anion Gap 10 mmol/L (5-15) Blood Urea Nitrogen 20 mg/dL (7-18) H Creatinine 1.3 MG/DL (0.55-1.30) Estimat Glomerular Filtration Rate > 60 mL/min (>60) Glucose Level 67 MG/DL (74-106) L Calcium Level 7.9 MG/DL (8.5-10.1) L Total Bilirubin 1.1 MG/DL (0.2-1.0) H Direct Bilirubin 0.5 MG/DL (0.0-0.3) H Aspartate Amino Transf (AST/SGOT) 45 U/L (15-37) H Alanine Aminotransferase (ALT/SGPT) 46 U/L (12-78) Alkaline Phosphatase 370 U/L (46-116) H Total Protein 6.7 G/DL (6.4-8.2) Albumin 1.9 G/DL (3.4-5.0) L Globulin 4.8 g/dL Albumin/Globulin Ratio 0.4 (1.0-2.7) L Random Vancomycin Level 18.3 ug/mL Current Medications Medications (Trade) Dose Ordered Sig/Piedad Route PRN Reason Start Time Stop Time Status Last Admin Dose Admin Acetaminophen (Tylenol) 650 mg Q6H PRN GT Temp >100.5 08/10/20 20:20 09/09/20 20:19 08/12/20 23:42 Baclofen (Lioresal) 10 mg THREE TIMES A DAY GT 08/11/20 09:00 09/07/20 08:59 08/16/20 09:44 Cefepime HCl 2 gm/ Dextrose 55 ml @ 110 mls/hr EVERY 12 HOURS IVPB 08/14/20 13:00 08/21/20 12:59 08/16/20 09:53 Chlorhexidine Gluconate (Christy-Hex 2%) 1 applic DAILY@1999 TOPIC 08/14/20 20:00 11/12/20 19:59 08/15/20 20:44 Colistimethate Sodium (Colistin *inhalation use only*) 75 mg Q12HR@10,22 INH 08/13/20 22:00 08/20/20 21:59 08/15/20 22:04 Dextrose/Sodium Chloride 1,000 ml @ 75 mls/hr [id number] IV 08/10/20 20:19 09/09/20 20:18 08/16/20 10:08 Famotidine (Pepcid) 20 mg DAILY GT 08/11/20 09:00 11/06/20 08:59 08/16/20 09:44 Folic Acid (Folate) 1 mg DAILY GT 08/11/20 09:00 09/07/20 08:59 08/16/20 09:00 Heparin Sodium (Porcine) (Heparin 5000 units/ml) 5,000 units EVERY 12 HOURS SUBQ 08/10/20 21:00 09/22/20 20:59 Heparin Sodium/ Sodium Chloride (Heparin 1000 units/500ml Premix) 1,000 unit ONCE PRN IV PICC PLACEMENT 08/14/20 12:00 08/16/20 23:59 Levetiracetam 100 ml @ 400 mls/hr Q12HR IVPB 08/14/20 10:00 11/12/20 09:59 08/16/20 09:00 Lidocaine HCl (Xylocaine 1% 30ml) 30 ml ONCE PRN INJ PICC PLACEMENT 08/14/20 11:00 08/16/20 23:59 Lorazepam (Ativan 2mg/ml 1ml) 1 mg Q6H PRN IV For Anxiety 08/10/20 20:21 08/17/20 20:20 08/12/20 21:58 Metoclopramide HCl (Reglan) 5 mg Q6H PRN IVP Nausea & Vomiting 08/13/20 22:15 09/12/20 22:14 Morphine Sulfate (Morphine Sulfate) 2 mg Q3H PRN IVP mild pain 08/12/20 23:00 08/19/20 22:59 08/15/20 20:46 Morphine Sulfate (Morphine Sulfate) 4 mg Q3H PRN IVP moderate pain 08/12/20 23:00 08/19/20 22:59 08/12/20 23:07 Multivitamins (Multivitamins) 1 tab DAILY GT 08/11/20 09:00 09/07/20 08:59 08/16/20 09:45 Pantoprazole (Protonix) 40 mg EVERY 12 HOURS IVP 08/13/20 22:15 09/12/20 22:14 08/16/20 09:00 Vancomycin HCl (Vanco pharmacy to dose) 1 ea DAILY PRN MISC Per rx protocol 08/16/20 10:00 08/22/20 08:59 Vancomycin HCl 750 mg/Dextrose 275 ml @ 183.333 mls/hr ONCE IVPB 08/16/20 11:00 08/16/20 12:00 Isabelle Degroot MD Aug 16, 2020 10:42"
[2020-08-16] MEDS ORDERED: Vancomycin 750mg/D5W 275ml IVPB SCH ×2 (11:00)
[2020-08-16] MEDS: Colistin for inhalation INH SCH ×2 (11:05→22:02)
[2020-08-16 12:00] VITALS: BP 116/63
--- NOTE | 2020-08-16 13:18 | NUR ---
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
--- NOTE | 2020-08-16 14:15 | Surgery Progress Note ---
Surgery Progress Note Subjective Symptoms: improved, tolerating diet, passing flatus, BM Objective Last 24 Hour Vital Signs Date Time Temp Pulse Resp B/P (MAP) Pulse Ox O2 Delivery O2 Flow Rate FiO2 08/16/20 12:00 97.2 62 18 116/63 (80) 100 08/16/20 12:00 40 08/16/20 12:00 Mechanical Ventilator 08/16/20 12:00 74 08/16/20 10:58 61 18 98 Mechanical Ventilator 40 57 18 08/16/20 08:00 40 08/16/20 08:00 Mechanical Ventilator 08/16/20 08:00 60 08/16/20 08:00 97.9 65 20 115/65 (82) 94 08/16/20 07:05 68 18 40 08/16/20 04:00 40 08/16/20 04:00 60 08/16/20 04:00 Mechanical Ventilator 08/16/20 04:00 98.1 62 20 111/73 (86) 96 08/16/20 02:44 60 18 40 08/16/20 00:00 97.2 65 20 121/69 (86) 95 08/16/20 00:00 Mechanical Ventilator 08/15/20 23:35 67 08/15/20 22:07 65 19 99 Mechanical Ventilator 40 68 19 40 08/15/20 21:16 97.7 08/15/20 20:00 97.3 65 20 126/70 (88) 95 08/15/20 20:00 62 08/15/20 20:00 40 08/15/20 20:00 Mechanical Ventilator 08/15/20 18:30 62 20 40 08/15/20 16:21 71 08/15/20 16:00 40 08/15/20 16:00 Mechanical Ventilator 08/15/20 14:47 74 23 40 I&O Intake and Output 08/15/20 08/16/20 19:00 07:00 Intake Total 900 ml 1132.5 ml Output Total 960 ml 110 ml Balance -60 ml 1022.5 ml Free Water 40 ml IV Total 900 ml 1062.5 ml Tube Feeding 30 ml Output Urine Total 850 ml Gastric Drainage Total 100 ml Other 10 ml 110 ml Dressing: dry Wound: clean Cardiovascular: RSR Respiratory: clear Abdomen: soft, non-tender, present bowel sounds Extremities: no edema, no tenderness, no cyanosis Laboratory Tests Test 08/16/20 04:00 White Blood Count 30.7 K/UL (4.8-10.8) *H Red Blood Count 2.29 M/UL (4.70-6.10) L Hemoglobin 7.3 G/DL (14.2-18.0) L Hematocrit 22.0 % (42.0-52.0) L Mean Corpuscular Volume 96 FL (80-99) Mean Corpuscular Hemoglobin 31.7 PG (27.0-31.0) H Mean Corpuscular Hemoglobin Concent 33.0 G/DL (32.0-36.0) Red Cell Distribution Width 18.7 % (11.6-14.8) H Platelet Count 328 K/UL (150-450) Mean Platelet Volume 7.8 FL (6.5-10.1) Neutrophils (%) (Auto) % (45.0-75.0) Lymphocytes (%) (Auto) % (20.0-45.0) Monocytes (%) (Auto) % (1.0-10.0) Eosinophils (%) (Auto) % (0.0-3.0) Basophils (%) (Auto) % (0.0-2.0) Differential Total Cells Counted 100 Neutrophils % (Manual) 83 % (45-75) H Lymphocytes % (Manual) 10 % (20-45) L Monocytes % (Manual) 4 % (1-10) Eosinophils % (Manual) 3 % (0-3) Basophils % (Manual) 0 % (0-2) Band Neutrophils 0 % (0-8) Platelet Estimate Adequate Platelet Morphology Normal Hypochromasia 3+ Anisocytosis 2+ Spherocytes 2+ Sodium Level 148 MMOL/L (136-145) H Potassium Level 3.6 MMOL/L (3.5-5.1) Chloride Level 116 MMOL/L (98-107) H Carbon Dioxide Level 22 MMOL/L (21-32) Anion Gap 10 mmol/L (5-15) Blood Urea Nitrogen 20 mg/dL (7-18) H Creatinine 1.3 MG/DL (0.55-1.30) Estimat Glomerular Filtration Rate > 60 mL/min (>60) Glucose Level 67 MG/DL (74-106) L Calcium Level 7.9 MG/DL (8.5-10.1) L Total Bilirubin 1.1 MG/DL (0.2-1.0) H Direct Bilirubin 0.5 MG/DL (0.0-0.3) H Aspartate Amino Transf (AST/SGOT) 45 U/L (15-37) H Alanine Aminotransferase (ALT/SGPT) 46 U/L (12-78) Alkaline Phosphatase 370 U/L (46-116) H Total Protein 6.7 G/DL (6.4-8.2) Albumin 1.9 G/DL (3.4-5.0) L Globulin 4.8 g/dL Albumin/Globulin Ratio 0.4 (1.0-2.7) L Random Vancomycin Level 18.3 ug/mL Plan Problems: (1) Pneumonia (2) Sickle cell anemia (3) Tachycardia (4) Severe sepsis (5) Sickle cell crisis (6) Sepsis Assessment & Plan: 35-year-old male sickle cell multiple comorbidities history of craniotomy trach feeding tube prior port infected removed see prior admission and consult and operative notes. Currently presents with significant leukocytosis fevers hypotension in intensive care unit wound site evaluated unlikely etiology. Trach evaluated may consider changing. LFTs noted elevated. Ultrasound ordered pending results trend labs continue IV antibiotics appreciate infectious disease input will follow with recommendations thank you for let me participate in patient's care KUB and US noted labs reviewed transfuse prbc prn trach change peg changed line out picc placed pulmonary arteries: Evaluation for pulmonary embolus is limited due to breathing motion artifact. No central pulmonary emboli are identified. Aorta: No acute findings. No thoracic aortic aneurysm. Lungs: There are moderately consolidating infiltrates identified in both lower lobes dependently with mild additional patchy infiltrates dependently in both upper lobes. The findings are consistent with bilateral nonspecific pneumonia. Aspiration pneumonia could give this appearance. The infiltrates are only somewhat typical of Covid 19. Confidence is immediate. Pleural space: Unremarkable. No significant effusion. No pneumothorax. Heart: Unremarkable. No cardiomegaly. No significant pericardial effusion. No evidence of RV dysfunction. Bones/joints: No acute fracture. No dislocation. Soft tissues: Unremarkable. Lymph nodes: Unremarkable. No enlarged lymph nodes. Tubes, lines and devices: There is a tracheostomy tube in good position. IMPRESSION: 1. There are moderately consolidating infiltrates identified in both lower lobes dependently with mild additional patchy infiltrates dependently in both upper lobes. The findings are consistent with bilateral nonspecific pneumonia. Aspiration pneumonia could give this appearance. The infiltrates are only somewhat typical of Covid 19. Confidence is immediate. 2. Evaluation for pulmonary embolus is limited due to breathing motion artifact. No central pulmonary emboli are identified. The liver is homogeneous. We cannot identify a normal spleen. There is dense crescentic calcification in the left upper quadrant at the expected location of the spleen. Gallbladder is absent. The pancreas is unremarkable. Adrenals are norm al in morphology. There is a small punctate cortical calcification left kidney. No hydronephrosis bilaterally There is a G-tube in place. Gas-filled bowel loops identified throughout the abdomen and pelvis. No discrete transition point or obstruction. Appendix partially visualized. There is some free fluid in the pelvis. There is no free air. There is a mildly prominent lymph nodes noted in the upper to mid retroperitoneum noted of undetermined etiology or significance. Rivera catheter noted in the bladder. The reservoir for the penile prosthesis is identified in the left lower pelvis. There is a right femoral venous catheter in place. Diffuse sclerosis of the bony pelvis and hips noted of undetermined etiology. IMPRESSION: BILATERAL LOWER LOBE PNEUMONIAS. ALSO SOME HAZY INFILTRATES IN THE UPPER LOBES. A NORMAL SPLEEN IS NOT VISUALIZED. THERE IS A DENSE CRESCENTIC CALCIFICATION LEFT UPPER QUADRANT AT THE EXPECTED LOCATION OF THE SPLEEN. 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 PUNCTATE CORTICAL CALCIFICATION LEFT KIDNEY. NO HYDRONEPHROSIS. PROMINENT LYMPH NODES IN THE UPPER TO MID RETROPERITONEUM OF UNDETERMINED ETIOLO GY OR SIGNIFICANCE. G-TUBE, RIVERA CATHETER, RIGHT FEMORAL CATHETER AND PENILE PROSTHESIS NOTED IN PLACE. MILD DIFFUSE SCLEROSIS OF THE BONY PELVIS AND BOTH HIPS OF UNDETERMINED ETIOLOGY. QUESTION HISTORY OF RENAL OSTEODYSTROPHY. (7) Port-A-Cath in place Assessment & Plan: prior removal for infection site okay dressings changed no active infection from wound picc Harman Zhao Aug 16, 2020 14:15
--- NOTE | 2020-08-16 15:37 | NUR ---
CASE MANAGEMENT:REVIEW 08/16/20 SI: MRSA SEPSIS. PNA. SICKLE CELL TRACH/VENT DEPENDENT 97.2 62 18 116/63 100% ON VENT SUPPORT W/40% FIO2 WBC+30.7 H/H-7.3/22.0 IS: IV CEFEPIME Q12 IV KEPPRA Q12 IVF@75/HR : STEP DOWN UNIT DCP: FROM [facility]
[2020-08-16 16:00] VITALS: BP 110/67
--- NOTE | 2020-08-16 16:09 | General Progress Note ---
Subjective ROS Limited/Unobtainable: No Constitutional: Reports: malaise, weakness HEENT: Reports: no symptoms Cardiovascular: Reports: no symptoms Respiratory: Reports: cough, shortness of breath, sputum Gastrointestinal/Abdominal: Reports: difficulty swallowing Genitourinary: Reports: no symptoms Neurologic/Psychiatric: Reports: pre-existing deficit, seizure Endocrine: Reports: no symptoms Hematologic/Lymphatic: Reports: anemia Allergies: Coded Allergies: ADHESIVE TAPE (Verified Allergy, Unknown, 07/20/20) Uncoded Allergies: TAPE (Allergy, Unknown, 08/07/20) All Systems: reviewed and negative except above Subjective no events. stable on the vent. awake and alert. no fevers. cooperative with care. follows simple commands. tolerating feeds. On iv abx. Objective Last 24 Hour Vital Signs Date Time Temp Pulse Resp B/P (MAP) Pulse Ox O2 Delivery O2 Flow Rate FiO2 08/16/20 12:00 97.2 62 18 116/63 (80) 100 08/16/20 12:00 40 08/16/20 12:00 Mechanical Ventilator 08/16/20 12:00 74 08/16/20 10:58 61 18 98 Mechanical Ventilator 40 57 18 08/16/20 08:00 40 08/16/20 08:00 Mechanical Ventilator 08/16/20 08:00 60 08/16/20 08:00 97.9 65 20 115/65 (82) 94 08/16/20 07:05 68 18 40 08/16/20 04:00 40 08/16/20 04:00 60 08/16/20 04:00 Mechanical Ventilator 08/16/20 04:00 98.1 62 20 111/73 (86) 96 08/16/20 02:44 60 18 40 08/16/20 00:00 97.2 65 20 121/69 (86) 95 08/16/20 00:00 Mechanical Ventilator 08/15/20 23:35 67 08/15/20 22:07 65 19 99 Mechanical Ventilator 40 68 19 40 08/15/20 21:16 97.7 08/15/20 20:00 97.3 65 20 126/70 (88) 95 08/15/20 20:00 62 08/15/20 20:00 40 08/15/20 20:00 Mechanical Ventilator 08/15/20 18:30 62 20 40 08/15/20 16:21 71 Intake and Output 08/15/20 08/16/20 19:00 07:00 Intake Total 900 ml 1132.5 ml Output Total 960 ml 110 ml Balance -60 ml 1022.5 ml Free Water 40 ml IV Total 900 ml 1062.5 ml Tube Feeding 30 ml Output Urine Total 850 ml Gastric Drainage Total 100 ml Other 10 ml 110 ml Laboratory Tests 08/16/20 04:00: White Blood Count 30.7*H, Red Blood Count 2.29L, Hemoglobin 7.3L, Hematocrit 22.0L, Mean Corpuscular Volume 96, Mean Corpuscular Hemoglobin 31.7H, Mean Corpuscular Hemoglobin Concent 33.0, Red Cell Distribution Width 18.7H, Platelet Count 328, Mean Platelet Volume 7.8, Neutrophils (%) (Auto) , Lymphocytes (%) (Auto) , Monocytes (%) (Auto) , Eosinophils (%) (Auto) , Basophils (%) (Auto) , Differential Total Cells Counted 100, Neutrophils % (Manual) 83H, Lymphocytes % (Manual) 10L, Monocytes % (Manual) 4, Eosinophils % (Manual) 3, Basophils % (Manual) 0, Band Neutrophils 0, Platelet Estimate Adequate, Platelet Morphology Normal, Hypochromasia 3+, Anisocytosis 2+, Spherocytes 2+, Sodium Level 148H, Potassium Level 3.6, Chloride Level 116H, Carbon Dioxide Level 22, Anion Gap 10, Blood Urea Nitrogen 20H, Creatinine 1.3, Estimat Glomerular Filtration Rate > 60, Glucose Level 67L, Calcium Level 7.9L, Total Bilirubin 1.1H, Direct Bilirubin 0.5H, Aspartate Amino Transf (AST/SGOT) 45H, Alanine Aminotransferase (ALT/SGPT) 46, Alkaline Phosphatase 370H, Total Protein 6.7, Albumin 1.9L, Globulin 4.8, Albumin/Globulin Ratio 0.4L, Random Vancomycin Level 18.3 Height (Feet): 5 Height (Inches): 10.00 Weight (Pounds): 112 Objective General Appearance: WD/WN, lethargic EENT: normal ENT inspection Neck: normal alignment Cardiovascular: normal peripheral pulses, normal rate Respiratory/Chest: chest wall non-tender, lungs clear, normal breath sounds Abdomen: normal bowel sounds, non tender, soft, no organomegaly Edema: no edema noted Arm (L), no edema noted Arm (R) Neurologic: unresponsive Assessment/Plan Problem List: (1) Pneumonia ICD Codes: J18.9 - Pneumonia, unspecified organism SNOMED: 514197306 Qualifiers: Qualified Codes: J18.9 - Pneumonia, unspecified organism (2) Sickle cell anemia ICD Codes: D57.1 - Sickle-cell disease without crisis SNOMED: 225067388 Qualifiers: Qualified Codes: D57.00 - Hb-SS disease with crisis, unspecified (3) Severe sepsis ICD Codes: A41.9 - Sepsis, unspecified organism; R65.20 - Severe sepsis without septic shock SNOMED: 56075431 Status: stable, not improved Assessment/Plan: cont vent support resp care gt feeds iv abx per ID monitor hh transfuse as needed PPI rx ct reviewed +infiltrates Lalo Celaya MD Aug 16, 2020 16:08
[2020-08-16] MEDS ORDERED: NS 275ml ONE (18:52)
[2020-08-16] MEDS ORDERED: D5 1/2NS 1000ml IV ONE (18:52)
[2020-08-16] MEDS ORDERED: Tubing IV Secondary IV ONE (18:52)
--- NOTE | 2020-08-16 19:15 | NUR ---
HAND-OFF: Report given to ARLYN Richard.
--- NOTE | 2020-08-16 19:25 | NUR ---
NURSE NOTES: Pt report received from TRINITY STODDARD. pt remains stable. pt is obtunded neuro hutchison, no acute neuro abnormalities noted. pt is trach vented, sating 98% O2, no acute resp distress noted. 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 pt bed is low, locked, armed, call light within reach, bed rails up times 3, will follow plan of care.
[2020-08-16 20:00] VITALS: BP 111/64
[2020-08-16] MEDS: Dyna-Hex 2% Top Sol 2oz TOPIC SCH (20:26)
--- NOTE | 2020-08-16 21:56 | Cardiology Report ---
APPROVED REPORT EKG Measurement Heart [id number] <Conclusion> Sinus tachycardia Rightward axis Nonspecific ST abnormality Abnormal ECG
--- NOTE | 2020-08-16 22:00 | NUR ---
NURSE NOTES: Pt turned, repositioned, and cleaned. skin assessed.
--- NOTE | 2020-08-16 22:44 | General Progress Note ---
Subjective Allergies: Coded Allergies: ADHESIVE TAPE (Verified Allergy, Unknown, 07/20/20) Uncoded Allergies: TAPE (Allergy, Unknown, 08/07/20) Subjective above noted NAD , Calm back on TF Objective Last 24 Hour Vital Signs Date Time Temp Pulse Resp B/P (MAP) Pulse Ox O2 Delivery O2 Flow Rate FiO2 08/16/20 22:04 59 20 100 Mechanical Ventilator 40 56 19 08/16/20 20:00 97.2 58 18 111/64 (80) 99 08/16/20 20:00 40 08/16/20 20:00 55 08/16/20 20:00 Mechanical Ventilator 08/16/20 19:16 64 19 40 08/16/20 16:00 56 08/16/20 16:00 97.5 51 18 110/67 (81) 98 08/16/20 16:00 Mechanical Ventilator 08/16/20 16:00 40 08/16/20 15:05 65 20 40 08/16/20 12:00 97.2 62 18 116/63 (80) 100 08/16/20 12:00 40 08/16/20 12:00 Mechanical Ventilator 08/16/20 12:00 74 08/16/20 10:58 61 18 98 Mechanical Ventilator 40 57 18 08/16/20 08:00 40 08/16/20 08:00 Mechanical Ventilator 08/16/20 08:00 60 08/16/20 08:00 97.9 65 20 115/65 (82) 94 08/16/20 07:05 68 18 40 08/16/20 04:00 40 08/16/20 04:00 60 08/16/20 04:00 Mechanical Ventilator 08/16/20 04:00 98.1 62 20 111/73 (86) 96 08/16/20 02:44 60 18 40 08/16/20 00:00 97.2 65 20 121/69 (86) 95 08/16/20 00:00 Mechanical Ventilator 08/15/20 23:35 67 Intake and Output 08/15/20 08/16/20 19:00 07:00 Intake Total 900 ml 1162.5 ml Output Total 960 ml 110 ml Balance -60 ml 1052.5 ml Free Water 40 ml IV Total 900 ml 1062.5 ml Tube Feeding 60 ml Output Urine Total 850 ml Gastric Drainage Total 100 ml Other 10 ml 110 ml # Voids 10 Laboratory Tests 08/16/20 04:00: White Blood Count 30.7*H, Red Blood Count 2.29L, Hemoglobin 7.3L, Hematocrit 22.0L, Mean Corpuscular Volume 96, Mean Corpuscular Hemoglobin 31.7H, Mean Corpuscular Hemoglobin Concent 33.0, Red Cell Distribution Width 18.7H, Platelet Count 328, Mean Platelet Volume 7.8, Neutrophils (%) (Auto) , Lymphocytes (%) (Auto) , Monocytes (%) (Auto) , Eosinophils (%) (Auto) , Basophils (%) (Auto) , Differential Total Cells Counted 100, Neutrophils % (Manual) 83H, Lymphocytes % (Manual) 10L, Monocytes % (Manual) 4, Eosinophils % (Manual) 3, Basophils % (Manual) 0, Band Neutrophils 0, Platelet Estimate Adequate, Platelet Morphology Normal, Hypochromasia 3+, Anisocytosis 2+, Spherocytes 2+, Sodium Level 148H, Potassium Level 3.6, Chloride Level 116H, Carbon Dioxide Level 22, Anion Gap 10, Blood Urea Nitrogen 20H, Creatinine 1.3, Estimat Glomerular Filtration Rate > 60, Glucose Level 67L, Calcium Level 7.9L, Total Bilirubin 1.1H, Direct Bilirubin 0.5H, Aspartate Amino Transf (AST/SGOT) 45H, Alanine Aminotransferase (ALT/SGPT) 46, Alkaline Phosphatase 370H, Total Protein 6.7, Albumin 1.9L, Globulin 4.8, Albumin/Globulin Ratio 0.4L, Random Vancomycin Level 18.3 Height (Feet): 5 Height (Inches): 10.00 Weight (Pounds): 112 Objective Thin AA Man HEENT s/p craniotomy neck (+) trach Coarse BS RR/tachy abd soft (+) GT no edema 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 +/- sepsis - sickle cell - severe anemia - transfused - hypotension - TF intolerance - leukocytosis/PNA/Sepsis - seizure d/o - s/p trach and PEG - guarded Recommendations - Continue TF - follow residual - PPI - GT care - Elevate HOB - check GABINO/AMA/hepatitis serologies - hydration Nasrin Stiles MD Aug 16, 2020 22:44
[2020-08-17] VITALS: BP 109/68
--- NOTE | 2020-08-17 01:00 | NUR ---
NURSE NOTES: Pt placed on pressure air mattress.
--- NOTE | 2020-08-17 03:30 | NUR ---
NURSE NOTES: pt turned and repositioned. Tube feedings changed. PTS IV line assessed.
[2020-08-17 04:00] VITALS: BP 126/74
--- NOTE | 2020-08-17 07:15 | NUR ---
NURSE HAND-OFF REPORT: Important Events on Shift:[MONITOR feedings and residuals ] Patient Status: [STABLE] Diet: [TUBE FEEDING] Pending Orders: [NA] Pending Results/Labs:[NA] Pending MD notification:[NA] Latest Vital Signs: Temperature 98.2 , Pulse 62 , B/P 126 /74 , Respiratory Rate 18 , O2 SAT 98 , Mechanical Ventilator, O2 Flow Rate . Vital Sign Comment: [STABLE] EKG Rhythm: Sinus Rhythm Rhythm change?: N MD Notified?: N -Dr Regan JIMENEZ Response: Latest Stevens Fall Score: 50 Fall Risk: High Risk Safety Measures: Call light Within Reach, Bed Alarm Zone 1, Side Rails Side Rails x3, Bed position Low and Locked. Fall Precautions: Yellow Socks Yellow Gown Door Sign Patient Fall Education Report given to [TRINITY RN].
--- NOTE | 2020-08-17 07:30 | NUR ---
NURSE NOTES: Patient received from ARLYN Richard under the care of Dr. Celaya. Patient is asleep but easily arousable. Tolerating trach-vent settings well with O2 saturation of 99% on 40%FiO2. Contact isolation observed and maintained at all times. Will continue with current plan of care.
[2020-08-17 08:00] VITALS: BP 121/70
--- NOTE | 2020-08-17 08:07 | Critical Care Progress Note ---
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 Port-A-Cath Status post removal of implanted right chest wall Port-A-Cath Sickle cell crisis Sickle cell anemia Chronic respiratory failure, ventilator dependent, with tracheostomy status Transaminitis Seizure disorder acute pneumonia leukocytosis recurrent sepsis PLAN care noted IV antibiotics noted respiratory care Ventilatory support- pressure control; as is volumes adequate sedation as needed SNF meds supportive care suction no wean planned still ill; repeat cbc oxygen therapy and titrate prognosis guarded ID follow up and recommendations medications/laboratory data/nursing notes reviewed in detail note reviewed and edited care discussed with RN and RT Critical Care - Subjective Interval Events: overnight events reviewed no distress ROS Limited/Unobtainable: Yes EKG Rhythm: Sinus Rhythm Residuals: minimal Tube Feeding Tolerated: yes I&O: Intake and Output0 08/16/20 08/17/20 19:00 07:00 Intake Total 1701.666 ml 1405 ml Output Total 1200 ml Balance 1701.666 ml 205 ml Free Water 150 ml IV Total 1241.666 ml 905 ml Tube Feeding 310 ml 500 ml Output Urine Total 1200 ml # Voids 120 Critical Care - Objective Last 24 Hour Vital Signs Date Time Temp Pulse Resp B/P (MAP) Pulse Ox O2 Delivery O2 Flow Rate FiO2 08/17/20 08:00 98.2 55 19 121/70 (87) 100 08/17/20 08:00 Mechanical Ventilator 08/17/20 08:00 40 08/17/20 07:16 62 18 40 08/17/20 04:00 40 08/17/20 04:00 Mechanical Ventilator 08/17/20 04:00 73 08/17/20 04:00 98.2 58 18 126/74 (91) 98 08/17/20 02:36 69 19 40 08/17/20 00:00 98.4 75 17 109/68 (82) 99 08/17/20 00:00 40 08/17/20 00:00 65 08/17/20 00:00 Mechanical Ventilator 08/16/20 22:04 59 20 100 Mechanical Ventilator 40 56 19 08/16/20 20:00 97.2 58 18 111/64 (80) 99 08/16/20 20:00 40 08/16/20 20:00 55 08/16/20 20:00 Mechanical Ventilator 08/16/20 19:16 64 19 40 08/16/20 16:00 56 08/16/20 16:00 97.5 51 18 110/67 (81) 98 08/16/20 16:00 Mechanical Ventilator 08/16/20 16:00 40 08/16/20 15:05 65 20 40 08/16/20 12:00 97.2 62 18 116/63 (80) 100 08/16/20 12:00 40 08/16/20 12:00 Mechanical Ventilator 08/16/20 12:00 74 08/16/20 10:58 61 18 98 Mechanical Ventilator 40 57 18 Objective: WDWN NAD reduced breath sounds bilaterally without rhonchi or wheeze [id number] without MRG NABS nontender GT no CCE reduced LOC Micro: Microbiology Date/Time Source Procedure Growth Status 08/14/20 15:00 Blood Blood Culture - Preliminary Gram Negative Bacillus 1 Resulted James Nuñez MD Aug 17, 2020 08:07
--- NOTE | 2020-08-17 08:37 | General Progress Note ---
Subjective ROS Limited/Unobtainable: No Constitutional: Reports: malaise, weakness HEENT: Reports: no symptoms Cardiovascular: Reports: no symptoms Respiratory: Reports: shortness of breath, sputum Gastrointestinal/Abdominal: Reports: difficulty swallowing Genitourinary: Reports: no symptoms Neurologic/Psychiatric: Reports: no symptoms Endocrine: Reports: no symptoms Hematologic/Lymphatic: Reports: anemia Allergies: Coded Allergies: ADHESIVE TAPE (Verified Allergy, Unknown, 07/20/20) Uncoded Allergies: TAPE (Allergy, Unknown, 08/07/20) All Systems: reviewed and negative except above Subjective alert. no distress. watching tv on his phone. no cp/sob. no fevers or chills. Objective Last 24 Hour Vital Signs Date Time Temp Pulse Resp B/P (MAP) Pulse Ox O2 Delivery O2 Flow Rate FiO2 08/17/20 08:00 98.2 55 19 121/70 (87) 100 08/17/20 08:00 Mechanical Ventilator 08/17/20 08:00 40 08/17/20 07:16 62 18 40 08/17/20 04:00 40 08/17/20 04:00 Mechanical Ventilator 08/17/20 04:00 73 08/17/20 04:00 98.2 58 18 126/74 (91) 98 08/17/20 02:36 69 19 40 08/17/20 00:00 98.4 75 17 109/68 (82) 99 08/17/20 00:00 40 08/17/20 00:00 65 08/17/20 00:00 Mechanical Ventilator 08/16/20 22:04 59 20 100 Mechanical Ventilator 40 56 19 08/16/20 20:00 97.2 58 18 111/64 (80) 99 08/16/20 20:00 40 08/16/20 20:00 55 08/16/20 20:00 Mechanical Ventilator 08/16/20 19:16 64 19 40 08/16/20 16:00 56 08/16/20 16:00 97.5 51 18 110/67 (81) 98 08/16/20 16:00 Mechanical Ventilator 08/16/20 16:00 40 08/16/20 15:05 65 20 40 08/16/20 12:00 97.2 62 18 116/63 (80) 100 08/16/20 12:00 40 08/16/20 12:00 Mechanical Ventilator 08/16/20 12:00 74 08/16/20 10:58 61 18 98 Mechanical Ventilator 40 57 18 Intake and Output 08/16/20 08/17/20 19:00 07:00 Intake Total 1701.666 ml 1405 ml Output Total 1200 ml Balance 1701.666 ml 205 ml Free Water 150 ml IV Total 1241.666 ml 905 ml Tube Feeding 310 ml 500 ml Output Urine Total 1200 ml # Voids 120 Height (Feet): 5 Height (Inches): 10.00 Weight (Pounds): 112 Objective General Appearance: WD/WN, lethargic EENT: normal ENT inspection Neck: normal alignment Cardiovascular: normal peripheral pulses, normal rate Respiratory/Chest: chest wall non-tender, lungs clear, normal breath sounds Abdomen: normal bowel sounds, non tender, soft, no organomegaly Edema: no edema noted Arm (L), no edema noted Arm (R) Neurologic: unresponsive Assessment/Plan Problem List: (1) Pneumonia ICD Codes: J18.9 - Pneumonia, unspecified organism SNOMED: [id number] Qualifiers: Qualified Codes: J18.9 - Pneumonia, unspecified organism (2) Sickle cell anemia ICD Codes: D57.1 - Sickle-cell disease without crisis SNOMED: 827800304 Qualifiers: Qualified Codes: D57.00 - Hb-SS disease with crisis, unspecified (3) Severe sepsis ICD Codes: A41.9 - Sepsis, unspecified organism; R65.20 - Severe sepsis without septic shock SNOMED: 69175038 Status: stable, not improved Assessment/Plan: cont vent support resp care gt feeds iv abx per ID follow up albs monitor h/h transfuse as needed PPI rx ct reviewed +infiltrates Lalo Celaya MD Aug 17, 2020 08:37
[2020-08-17] MEDS: Pantoprazole Inj IVP SCH ×2 (09:09→20:21)
[2020-08-17] MEDS: Cefepime HCl 2 GM in D5W 55 ML IVPB SCH ×2 (09:11→20:57)
[2020-08-17] MEDS: levETIRAcetam 1,000mg/NS100ml 100 ML IVPB SCH ×2 (09:12→20:21)
[2020-08-17] MEDS: Heparin 5000 units/ml inj SUBQ SCH ×2 (09:43→20:11)
--- NOTE | 2020-08-17 09:47 | Infectious Diseases Prog Note ---
Assessment/Plan Assessment/Plan A: 1. MRSA sepsis. 2. Aspiration pneumonia MRSA, Pseudomonas & Serratia in culture COVID19 X 1: negative. 3. Leukemoid reaction. 4. Sickle cell disease. 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 VDRF 8. Femoral line infection, line removed 9. New gram negative sepsis PLAN: 1. Continue IV vancomycin, Cefepime & Colistin inhaler 2. Will f/u cultures Subjective ROS Limited/Unobtainable: Yes Constitutional: Denies: fever Allergies: Coded Allergies: ADHESIVE TAPE (Verified Allergy, Unknown, 07/20/20) Uncoded Allergies: TAPE (Allergy, Unknown, 08/07/20) Objective Last 24 Hour Vital Signs Date Time Temp Pulse Resp B/P (MAP) Pulse Ox O2 Delivery O2 Flow Rate FiO2 08/17/20 08:00 50 08/17/20 08:00 98.2 55 19 121/70 (87) 100 08/17/20 08:00 Mechanical Ventilator 08/17/20 08:00 40 08/17/20 07:16 62 18 40 08/17/20 04:00 40 08/17/20 04:00 Mechanical Ventilator 08/17/20 04:00 73 08/17/20 04:00 98.2 58 18 126/74 (91) 98 08/17/20 02:36 69 19 40 08/17/20 00:00 98.4 75 17 109/68 (82) 99 08/17/20 00:00 40 08/17/20 00:00 65 08/17/20 00:00 Mechanical Ventilator 08/16/20 22:04 59 20 100 Mechanical Ventilator 40 56 19 08/16/20 20:00 97.2 58 18 111/64 (80) 99 08/16/20 20:00 40 08/16/20 20:00 55 08/16/20 20:00 Mechanical Ventilator 08/16/20 19:16 64 19 40 08/16/20 16:00 56 08/16/20 16:00 97.5 51 18 110/67 (81) 98 08/16/20 16:00 Mechanical Ventilator 08/16/20 16:00 40 08/16/20 15:05 65 20 40 08/16/20 12:00 97.2 62 18 116/63 (80) 100 08/16/20 12:00 40 08/16/20 12:00 Mechanical Ventilator 08/16/20 12:00 74 08/16/20 10:58 61 18 98 Mechanical Ventilator 40 57 18 Height (Feet): 5 Height (Inches): 10.00 Weight (Pounds): 112 General Appearance: no acute distress HEENT: status post trach, other - R craniotomy Respiratory/Chest: rhonchi - bilaterally, other - on ventilator Cardiovascular: bradycardia, other - R arm PICC line Abdomen: soft, non tender, other - GT feeding Extremities: no edema Neurologic/Psychiatric: alert, responsive Musculoskeletal: atrophy Microbiology Date/Time Source Procedure Growth Status 08/14/20 15:00 Blood Blood Culture - Preliminary Gram Negative Bacillus 1 Resulted Current Medications Medications (Trade) Dose Ordered Sig/Piedad Route PRN Reason Start Time Stop Time Status Last Admin Dose Admin Acetaminophen (Tylenol) 650 mg Q6H PRN GT Temp >100.5 08/10/20 20:20 09/09/20 20:19 08/12/20 23:42 Baclofen (Lioresal) 10 mg THREE TIMES A DAY GT 08/11/20 09:00 09/07/20 08:59 08/17/20 09:04 Cefepime HCl 2 gm/ Dextrose 55 ml @ 110 mls/hr EVERY 12 HOURS IVPB 08/14/20 13:00 08/21/20 12:59 08/17/20 09:11 Chlorhexidine Gluconate (Christy-Hex 2%) 1 applic DAILY@1999 TOPIC 08/14/20 20:00 11/12/20 19:59 08/16/20 20:26 Colistimethate Sodium (Colistin *inhalation use only*) 75 mg Q12HR@10,22 INH 08/13/20 22:00 08/20/20 21:59 08/16/20 22:02 Dextrose/Sodium Chloride 1,000 ml @ 75 mls/hr [id number] IV 08/10/20 20:19 09/09/20 20:18 08/16/20 23:31 Famotidine (Pepcid) 20 mg DAILY GT 08/11/20 09:00 11/06/20 08:59 08/17/20 09:04 Folic Acid (Folate) 1 mg DAILY GT 08/11/20 09:00 09/07/20 08:59 08/17/20 09:04 Heparin Sodium (Porcine) (Heparin 5000 units/ml) 5,000 units EVERY 12 HOURS SUBQ 08/10/20 21:00 09/22/20 20:59 Levetiracetam 100 ml @ 400 mls/hr Q12HR IVPB 08/14/20 10:00 11/12/20 09:59 08/17/20 09:12 Lorazepam (Ativan 2mg/ml 1ml) 1 mg Q6H PRN IV For Anxiety 08/10/20 20:21 08/17/20 20:20 08/12/20 21:58 Metoclopramide HCl (Reglan) 5 mg Q6H PRN IVP Nausea & Vomiting 08/13/20 22:15 09/12/20 22:14 Morphine Sulfate (Morphine Sulfate) 2 mg Q3H PRN IVP mild pain 08/12/20 23:00 08/19/20 22:59 08/15/20 20:46 Morphine Sulfate (Morphine Sulfate) 4 mg Q3H PRN IVP moderate pain 08/12/20 23:00 08/19/20 22:59 08/12/20 23:07 Multivitamins (Multivitamins) 1 tab DAILY GT 08/11/20 09:00 09/07/20 08:59 08/17/20 09:04 Pantoprazole (Protonix) 40 mg EVERY 12 HOURS IVP 08/13/20 22:15 09/12/20 22:14 08/17/20 09:09 Vancomycin HCl (Vanco pharmacy to dose) 1 ea DAILY PRN MISC Per rx protocol 08/16/20 10:00 08/22/20 08:59 Wyatt Kemp MD Aug 17, 2020 09:47
--- NOTE | 2020-08-17 10:00 | NUR ---
NURSE NOTES: Noted HR 49bpm via clinical research monitor. Patient on Keppra IV. Will continue to monitor.
--- NOTE | 2020-08-17 10:22 | Surgery Progress Note ---
Surgery Progress Note Subjective Additional Comments wbc continues to improve no n/v/f/c comfortable Objective Last 24 Hour Vital Signs Date Time Temp Pulse Resp B/P (MAP) Pulse Ox O2 Delivery O2 Flow Rate FiO2 08/17/20 08:00 50 08/17/20 08:00 98.2 55 19 121/70 (87) 100 08/17/20 08:00 Mechanical Ventilator 08/17/20 08:00 40 08/17/20 07:16 62 18 40 08/17/20 04:00 40 08/17/20 04:00 Mechanical Ventilator 08/17/20 04:00 73 08/17/20 04:00 98.2 58 18 126/74 (91) 98 08/17/20 02:36 69 19 40 08/17/20 00:00 98.4 75 17 109/68 (82) 99 08/17/20 00:00 40 08/17/20 00:00 65 08/17/20 00:00 Mechanical Ventilator 08/16/20 22:04 59 20 100 Mechanical Ventilator 40 56 19 08/16/20 20:00 97.2 58 18 111/64 (80) 99 08/16/20 20:00 40 08/16/20 20:00 55 08/16/20 20:00 Mechanical Ventilator 08/16/20 19:16 64 19 40 08/16/20 16:00 56 08/16/20 16:00 97.5 51 18 110/67 (81) 98 08/16/20 16:00 Mechanical Ventilator 08/16/20 16:00 40 08/16/20 15:05 65 20 40 08/16/20 12:00 97.2 62 18 116/63 (80) 100 08/16/20 12:00 40 08/16/20 12:00 Mechanical Ventilator 08/16/20 12:00 74 08/16/20 10:58 61 18 98 Mechanical Ventilator 40 57 18 I&O Intake and Output 08/16/20 08/17/20 19:00 07:00 Intake Total 1701.666 ml 1405 ml Output Total 1200 ml Balance 1701.666 ml 205 ml Free Water 150 ml IV Total 1241.666 ml 905 ml Tube Feeding 310 ml 500 ml Output Urine Total 1200 ml # Voids 120 Cardiovascular: RSR Respiratory: decreased breath sounds Abdomen: soft, non-tender, present bowel sounds Extremities: no edema, no tenderness, no cyanosis Plan Problems: (1) Pneumonia (2) Sickle cell anemia (3) Tachycardia (4) Severe sepsis (5) Sickle cell crisis (6) Sepsis Assessment & Plan: 35-year-old male sickle cell multiple comorbidities history of craniotomy trach feeding tube prior port infected removed see prior admission and consult and operative notes. Currently presents with significant leukocytosis fevers hypotension in intensive care unit wound site evaluated unlikely etiology. Trach evaluated may consider changing. LFTs noted elevated. Ultrasound ordered pending results trend labs continue IV antibiotics appreciate infectious disease input will follow with recommendations thank you for let me participate in patient's care KUB and US noted labs reviewed transfuse prbc prn trach change peg changed line out picc placed pulmonary arteries: Evaluation for pulmonary embolus is limited due to breathing motion artifact. No central pulmonary emboli are identified. Aorta: No acute findings. No thoracic aortic aneurysm. Lungs: There are moderately consolidating infiltrates identified in both lower lobes dependently with mild additional patchy infiltrates dependently in both upper lobes. The findings are consistent with bilateral nonspecific pneumonia. Aspiration pneumonia could give this appearance. The infiltrates are only somewhat typical of Covid 19. Confidence is immediate. Pleural space: Unremarkable. No significant effusion. No pneumothorax. Heart: Unremarkable. No cardiomegaly. No significant pericardial effusion. No evidence of RV dysfunction. Bones/joints: No acute fracture. No dislocation. Soft tissues: Unremarkable. Lymph nodes: Unremarkable. No enlarged lymph nodes. Tubes, lines and devices: There is a tracheostomy tube in good position. IMPRESSION: 1. There are moderately consolidating infiltrates identified in both lower lobes dependently with mild additional patchy infiltrates dependently in both upper lobes. The findings are consistent with bilateral nonspecific pneumonia. Aspiration pneumonia could give this appearance. The infiltrates are only somewhat typical of Covid 19. Confidence is immediate. 2. Evaluation for pulmonary embolus is limited due to breathing motion artifact. No central pulmonary emboli are identified. The liver is homogeneous. We cannot identify a normal spleen. There is dense crescentic calcification in the left upper quadrant at the expected location of the spleen. Gallbladder is absent. The pancreas is unremarkable. Adrenals are normal in morphology. There is a small punctate cortical calcification left kidney. No hydronephrosis bilaterally There is a G-tube in place. Gas-filled bowel loops identified throughout the abdomen and pelvis. No discrete transition point or obstruction. Appendix partially visualized. There is some free fluid in the pelvis. There is no free air. There is a mildly prominent lymph nodes noted in the upper to mid retroperitoneum noted of undetermined etiology or significance. Rivera catheter noted in the bladder. The reservoir for the penile prosthesis is identified in the left lower pelvis. There is a right femoral venous catheter in place. Diffuse sclerosis of the bony pelvis and hips noted of undetermined etiology. IMPRESSION: BILATERAL LOWER LOBE PNEUMONIAS. ALSO SOME HAZY INFILTRATES IN THE UPPER LOBES. A NORMAL SPLEEN IS NOT VISUALIZED. THERE IS A DENSE CRESCENTIC CALCIFICATION LEFT UPPER QUADRANT AT THE EXPECTED LOCATION OF THE SPLEEN. 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 PUNCTATE CORTICAL CALCIFICATION LEFT KIDNEY. NO HYDRONEPHROSIS. PROMINENT LYMPH NODES IN THE UPPER TO MID RETROPERITONEUM OF UNDETERMINED ETIOLOGY OR SIGNIFICANCE. G-TUBE, RIVERA CATHETER, RIGHT FEMORAL CATHETER AND PENILE PROSTHESIS NOTED IN PLACE. MILD DIFFUSE SCLEROSIS OF THE BONY PELVIS AND BOTH HIPS OF UNDETERMINED ETIOLOGY. QUESTION HISTORY OF RENAL OSTEODYSTROPHY. (7) Port-A-Cath in place Assessment & Plan: prior removal for infection site okay dressings changed no active infection from wound picc Harman Zhao Aug 17, 2020 10:22
[2020-08-17] MEDS: Colistin for inhalation INH SCH ×2 (10:45→22:33)
--- NOTE | 2020-08-17 10:57 | NUR ---
RD ASSESSMENT & RECOMMENDATIONS SEE CARE ACTIVITY FOR COMPLETE ASSESSMENT DAILY ESTIMATED NEEDS: Needs based on Underweight, Critical care/ 50.8kg 30-35 kcals/kg 6099-1744 total kcals 1.25-2 g protein/kg 64-102 g total protein 25-30 mL/kg 3736-8655 total fluid mLs NUTRITION DIAGNOSIS: Swallowing difficulty R/T respiratory status, dysphagia as evidenced by h/o craniotomy, trach/vent dep, PEG dep. CURRENT TF:Per RN-> Vital 1.2 @60ml/hr ENTERAL NUTRITION RECOMMENDATIONS: Glucerna 1.5 @ 45ml/hr x 24 hrs to provide 1080ml, 1620kcal, 89g prot, 820ml free water * As medically able, increase goal rate to 45ml/hr x 24 hrs to meet 100% est kcal/prot needs * HOB over 30 degrees/ H2O flushes per MD ---- Maintain Vital 1.2 goal of 60ml/hr if tolerating well- meets 100% est needs. ADDITIONAL RECOMMENDATIONS: * Maintain calibrated bedscale wt * Monitor BGs: BG 9/11 wj=408, repeat lab result pending. Continue carb controlled TF formula as ordered for now Monitor need for NISS * Monitor lytes, replete as needed (K 5.6-> now LOW ) * Skin integrity: TF rec @ goal provides 100% RDI * Add probiotics for diarrhea, +rectal tube
[2020-08-17 11:03] LABS: HEMATOCRIT 21.3 % (42.0-52.0); HEMOGLOBIN 7.3 G/DL (14.2-18.0); MEAN CORPUSCULAR VOLUME 95 FL (80-99); PLATELET COUNT 338 K/UL (150-450); RED BLOOD COUNT 2.25 M/UL (4.70-6.10); RED CELL DISTRIBUTION WIDTH 17.5 % (11.6-14.8)
[2020-08-17 11:09] LABS: WHITE BLOOD COUNT 25.4 K/UL (4.8-10.8)
[2020-08-17 11:25] LABS: ALANINE AMINOTRANSFERASE 36 U/L (12-78); ALBUMIN 1.9 G/DL (3.4-5.0); ALBUMIN/GLOBULIN RATIO 0.4 (1.0-2.7); ALKALINE PHOSPHATASE 401 U/L (46-116); ANION GAP 9 mmol/L (5-15); ASPARTATE AMINO TRANSFERASE 42 U/L (15-37); BILIRUBIN,TOTAL 1.1 MG/DL (0.2-1.0); BLOOD UREA NITROGEN 21 mg/dL (7-18); CARBON DIOXIDE 22 MMOL/L (21-32); CHLORIDE 114 MMOL/L (98-107); CREATININE 1.3 MG/DL (0.55-1.30); POTASSIUM 3.7 MMOL/L (3.5-5.1); SODIUM 145 MMOL/L (136-145)
[2020-08-17 11:26] LABS: BILIRUBIN,DIRECT 0.6 MG/DL (0.0-0.3)
--- NOTE | 2020-08-17 11:35 | NUR ---
NURSE HAND-OFF REPORT: Important Events on Shift: Mother visit. WBC high but trending down. Patient Status: Stable Diet: GT feed Pending Orders: - Pending Results/Labs: - Pending MD notification: - Latest Vital Signs: Temperature 98.2 , Pulse 59 , B/P 121 /70 , Respiratory Rate 23 , O2 SAT 100 , Mechanical Ventilator, O2 Flow Rate . Vital Sign Comment: - EKG Rhythm: Sinus Bradycardia Rhythm change?: N MD Notified?: N -Dr Regan JIMENEZ Response: Latest Stevens Fall Score: 50 Fall Risk: High Risk Safety Measures: Call light Within Reach, Bed Alarm Zone 1, Side Rails Side Rails x3, Bed position Low and Locked. Fall Precautions: Yellow Socks Yellow Gown Door Sign Patient Fall Education Report given to ARLYN Ortiz.
--- NOTE | 2020-08-17 11:49 | NUR ---
NURSE NOTES: Paged Dr. Celaya regarding episodes of bradycardia 45-50s, awaiting for callback.
[2020-08-17 12:00] VITALS: BP 127/75
--- NOTE | 2020-08-17 12:00 | NUR ---
NURSE NOTES: Dr. Celaya made aware, per family member, Mother, stated mentation of her son is unusual, having episodes of SB 45-50s SBP 110s. Per MD order ABG and EEG. Order noted, entered, carried out.
--- NOTE | 2020-08-17 12:54 | NUR ---
MANAGER SPA NOTES SPOKE WITH TRISTIN FROM [employer], TELEPHONE REVIEW GIVEN. CLINICALS TO BE FAXED BY [facility].
[2020-08-17] MEDS: D5 1/2NS 1,000 ML IV SCH (13:09)
[2020-08-17] MEDS ORDERED: D5 1/2NS 1000ml IV ONE (13:42)
--- NOTE | 2020-08-17 14:58 | NUR ---
CASE MANAGEMENT:REVIEW 08/17/20 SI: MRSA SEPSIS. PNA. SICKLE CELL TRACH/VENT DEPENDENT 98.2 55 19 121/70 100% ON VENT SUPPORT W/40% FIO2 WBC+25.4 H/H-7.3/21.3 PH+7.48 PCO2-23.2 PO2-55.3 HCO3-17.0 IS: IVF+NAHCO3@50/HR IV CEFEPIME Q12 IV KEPPRA Q12 IV PROTONIX Q12 IVF@75/HR COLISTIN INH Q12 HEPARIN SQ Q12 : STEP DOWN UNIT DCP: FROM [facility] PLAN: CT HEAD CHEST XRAY EEG
[2020-08-17] MEDS: Acetaminophen 650mg/20.3ml GT PRN (15:10)
--- NOTE | 2020-08-17 15:30 | NUR ---
NURSE NOTES: Dr. Nuñez made aware of result of ABG, Per MD change AC 18 to AC 12. RT made aware
[2020-08-17 16:00] VITALS: BP 119/64
[2020-08-17] MEDS: Sodium Bicarbonate 50 ML in D5 1/2NS 1,000 ML IV SCH (16:28)
--- NOTE | 2020-08-17 17:00 | NUR ---
NURSE NOTES: Called Candido, technology resource teacher, informed patient schedule for EEG.
--- NOTE | 2020-08-17 19:22 | NUR ---
NURSE HAND-OFF REPORT: Important Events on Shift: EEG and CT head ordered, less active than usual Patient Status: Stable T 99.9 now 97.8 Diet: Vital AF @ 60ml Pending Orders: EEG and CT head Pending Results/Labs:Na Pending notification:NA Latest Vital Signs: Temperature 97.8 , Pulse 49 , B/P 119 /64 , Respiratory Rate 18 , O2 SAT 99 , Mechanical Ventilator, O2 Flow Rate . Vital Sign Comment: mild T 99.9 now 97.8 EKG Rhythm: Sinus Rhythm Rhythm change?: N Notified?: N -Dr Regan JIMENEZ Response: Latest Stevens Fall Score: 50 Fall Risk: High Risk Safety Measures: Call light Within Reach, Bed Alarm Zone 1, Side Rails Side Rails x3, Bed position Low and Locked. Fall Precautions: Yellow Socks Yellow Gown Door Sign Patient Fall Education Report given to ARLYN Richard.
--- NOTE | 2020-08-17 19:28 | General Progress Note ---
Subjective Allergies: Coded Allergies: ADHESIVE TAPE (Verified Allergy, Unknown, 07/20/20) Uncoded Allergies: TAPE (Allergy, Unknown, 08/07/20) Subjective above noted NAD , Calm watching TV on TF Objective Last 24 Hour Vital Signs Date Time Temp Pulse Resp B/P (MAP) Pulse Ox O2 Delivery O2 Flow Rate FiO2 08/17/20 18:48 49 18 40 08/17/20 16:28 97.8 08/17/20 16:00 99.9 50 18 119/64 (82) 99 08/17/20 16:00 40 08/17/20 16:00 Mechanical Ventilator 08/17/20 16:00 60 08/17/20 14:35 60 18 40 08/17/20 12:00 40 08/17/20 12:00 97.9 53 20 127/75 (92) 100 08/17/20 12:00 Mechanical Ventilator 08/17/20 12:00 49 08/17/20 10:48 59 23 100 Mechanical Ventilator 40 59 23 08/17/20 08:00 50 08/17/20 08:00 98.2 55 19 121/70 (87) 100 08/17/20 08:00 Mechanical Ventilator 08/17/20 08:00 40 08/17/20 07:16 62 18 40 08/17/20 04:00 40 08/17/20 04:00 Mechanical Ventilator 08/17/20 04:00 73 08/17/20 04:00 98.2 58 18 126/74 (91) 98 08/17/20 02:36 69 19 40 08/17/20 00:00 98.4 75 17 109/68 (82) 99 08/17/20 00:00 40 08/17/20 00:00 65 08/17/20 00:00 Mechanical Ventilator 08/16/20 22:04 59 20 100 Mechanical Ventilator 40 56 19 08/16/20 20:00 97.2 58 18 111/64 (80) 99 08/16/20 20:00 40 08/16/20 20:00 55 08/16/20 20:00 Mechanical Ventilator Intake and Output 08/16/20 08/17/20 19:00 07:00 Intake Total 1701.666 ml 1455 ml Output Total 1200 ml Balance 1701.666 ml 255 ml Free Water 150 ml IV Total 1241.666 ml 905 ml Tube Feeding 310 ml 550 ml Output Urine Total 1200 ml # Voids 120 Laboratory Tests 08/17/20 10:00: White Blood Count 25.4*H, Red Blood Count 2.25L, Hemoglobin 7.3L, Hematocrit 21.3L, Mean Corpuscular Volume 95, Mean Corpuscular Hemoglobin 32.5H, Mean Corpuscular Hemoglobin Concent 34.3, Red Cell Distribution Width 17.5H, Platelet Count 338, Mean Platelet Volume 8.1, Neutrophils (%) (Auto) , Lymphocytes (%) (Auto) , Monocytes (%) (Auto) , Eosinophils (%) (Auto) , Basophils (%) (Auto) , Differential Total Cells Counted 100, Neutrophils % (Manual) 83H, Lymphocytes % (Manual) 8L, Monocytes % (Manual) 7, Eosinophils % (Manual) 1, Basophils % (Manual) 1, Band Neutrophils 0, Platelet Estimate Adequate, Platelet Morphology Normal, Hypochromasia 3+, Anisocytosis 1+, Spherocytes 1+, Sodium Level 145, Potassium Level 3.7, Chloride Level 114H, Carbon Dioxide Level 22, Anion Gap 9, Blood Urea Nitrogen 21H, Creatinine 1.3, Estimat Glomerular Filtration Rate > 60, Glucose Level 92, Calcium Level 8.0L, Total Bilirubin 1.1H, Direct Bilirubin 0.6H, Aspartate Amino Transf (AST/SGOT) 42H, Alanine Aminotransferase (ALT/SGPT) 36, Alkaline Phosphatase 401H, Total Protein 6.8, Albumin 1.9L, Globulin 4.9, Albumin/Globulin Ratio 0.4L 08/17/20 14:24: Arterial Blood pH 7.484H, Arterial Blood Partial Pressure CO2 23.2*L, Arterial Blood Partial Pressure O2 55.3L, Arterial Blood HCO3 17.0*L, Arterial Blood Oxygen Saturation 86.8*L, Arterial Blood Base Excess -5.6L, Iglesia Test Positive 08/17/20 15:40: Lactic Acid Level 1.00 Height (Feet): 5 Height (Inches): 10.00 Weight (Pounds): 112 Objective Thin AA Man HEENT s/p craniotomy neck (+) trach Coarse BS RR/tachy abd soft (+) GT no edema 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 +/- sepsis - sickle cell - severe anemia - transfused - hypotension - TF intolerance - leukocytosis/PNA/Sepsis - seizure d/o - s/p trach and PEG - guarded Recommendations - Continue TF - follow residual - PPI - GT care - Elevate HOB - check GABINO/AMA/hepatitis serologies - negative - hydration Nasrin Stiles MD Aug 17, 2020 19:28
--- NOTE | 2020-08-17 19:30 | NUR ---
NURSE NOTES: Pt report received from IRIS STODDARD. pt remains stable. pt is alert and oriented times 1, no acute neuro abnormalities noted. pt is on athletic monitor showing NSR, no acute abnormalities cardiac hutchison. pt is sating 98% O2, trach vented, no acute signs of resp distress noted. pt bed is low, locked, armed, call light within reach, bed rails up times 3. will follow plan of care.
[2020-08-17 20:00] VITALS: BP 117/66
--- NOTE | 2020-08-17 20:00 | NUR ---
NURSE NOTES: imaging called to take pt to CT. reported that EEG is about to be preformed. will call back after EEG.
[2020-08-17] MEDS: Dyna-Hex 2% Top Sol 2oz TOPIC SCH (20:21)
--- NOTE | 2020-08-17 20:30 | NUR ---
NURSE NOTES: JEFFREY shultz at bed side preforming EEG.
--- NOTE | 2020-08-17 20:39 | Consultation ---
History of Present Illness General Chief Complaint: Dyspnea/Respdistress Present Illness Allergies: Coded Allergies: ADHESIVE TAPE (Verified Allergy, Unknown, 07/20/20) Uncoded Allergies: TAPE (Allergy, Unknown, 08/07/20) Medication History Scheduled Albuterol Sulfate* (Albuterol Sulfate Hfa*), 2 PUFF INH Q3H, (Reported) Albuterol Sulfate* (Albuterol Sulfate Hfa*), 2 PUFF INH Q6H, (Reported) Amino Acids/Protein Hydrolys (Pro-Stat Liquid), 30 ML GT DAILY, (Reported) Ascorbic Acid* (Ascorbic Acid*), 500 MG GT DAILY, (Reported) Baclofen* (Baclofen*), 10 MG GT THREE TIMES A DAY, (Reported) Chlorhexidine Gluconate* (Hibiclens*), 15 ML TP BID, (Reported) Deferasirox (Exjade), 1,080 MG GT DAILY, (Reported) Deferiprone (Ferriprox), 1,000 MG GT Q8HR, (Reported) Famotidine* (Pepcid 20mg tablet*), 20 MG GT DAILY, (Reported) Folic Acid* (Folic Acid*), 1 MG GT DAILY, (Reported) Ipratropium Noble (Atrovent Hfa), 2 PUFFS IH Q3HR, (Reported) Levetiracetam (Keppra), 1,000 MG GT DAILY, (Reported) Magnesium Oxide (Magnesium Oxide), 400 MG GT DAILY, (Reported) Multivitamins* (Multivitamins*), 1 TAB GT DAILY, (Reported) Polyethylene Glycol 3350* (Polyethylene Glycol 3350*), 17 GM GT BEDTIME, (Reported) Zinc Sulfate (Zinc Sulfate*), 220 MG GT DAILY, (Reported) Scheduled PRN Acetaminophen* (Acetaminophen 325MG Tablet*), 650 MG ORAL Q4H PRN for Mild pain/temp >101F, (Reported) Hydromorphone Hcl (Hydromorphone Hcl), 2 MG GT for Moderate Pain (Pain Scale 4- 6), (Reported) Hydroxyurea* (HYDREA 500mg*), 500 MG GT DAILY PRN for SICKLE CELL ANEMIA , ( Reported) Ipratropium Noble (Atrovent Hfa), 12.9 GM IH Q6HR PRN for Shortness of Breath, (Reported) Morphine 10mg/5ml Oral Soln* (Morphine 10mg/5ml Oral Soln*), 4 MG GT for Severe Pain (Pain Scale 7-10), (Reported) Patient History Healthcare decision maker Resuscitation status Advanced Directive on File Physical Exam Last 24 Hour Vital Signs Date Time Temp Pulse Resp B/P (MAP) Pulse Ox O2 Delivery O2 Flow Rate FiO2 08/17/20 20:00 40 08/17/20 20:00 Mechanical Ventilator 08/17/20 20:00 46 08/17/20 18:48 49 18 40 08/17/20 16:28 97.8 08/17/20 16:00 99.9 50 18 119/64 (82) 99 08/17/20 16:00 40 08/17/20 16:00 Mechanical Ventilator 08/17/20 16:00 60 08/17/20 14:35 60 18 40 08/17/20 12:00 40 08/17/20 12:00 97.9 53 20 127/75 (92) 100 08/17/20 12:00 Mechanical Ventilator 08/17/20 12:00 49 08/17/20 10:48 59 23 100 Mechanical Ventilator 40 59 23 08/17/20 08:00 50 08/17/20 08:00 98.2 55 19 121/70 (87) 100 08/17/20 08:00 Mechanical Ventilator 08/17/20 08:00 40 08/17/20 07:16 62 18 40 08/17/20 04:00 40 08/17/20 04:00 Mechanical Ventilator 08/17/20 04:00 73 08/17/20 04:00 98.2 58 18 126/74 (91) 98 08/17/20 02:36 69 19 40 08/17/20 00:00 98.4 75 17 109/68 (82) 99 08/17/20 00:00 40 08/17/20 00:00 65 08/17/20 00:00 Mechanical Ventilator 08/16/20 22:04 59 20 100 Mechanical Ventilator 40 56 19 Intake and Output 08/16/20 08/17/20 18:59 06:59 Intake Total 1616.666 ml 1520 ml Output Total 1200 ml Balance 1616.666 ml 320 ml Free Water 150 ml IV Total 1166.666 ml 980 ml Tube Feeding 300 ml 540 ml Output Urine Total 1200 ml # Voids 130 Laboratory Tests Test 08/17/20 10:00 08/17/20 14:24 08/17/20 15:40 White Blood Count 25.4 K/UL (4.8-10.8) *H Red Blood Count 2.25 M/UL (4.70-6.10) L Hemoglobin 7.3 G/DL (14.2-18.0) L Hematocrit 21.3 % (42.0-52.0) L Mean Corpuscular Volume 95 FL (80-99) Mean Corpuscular Hemoglobin 32.5 PG (27.0-31.0) H Mean Corpuscular Hemoglobin Concent 34.3 G/DL (32.0-36.0) Red Cell Distribution Width 17.5 % (11.6-14.8) H Platelet Count 338 K/UL (150-450) Mean Platelet Volume 8.1 FL (6.5-10.1) Neutrophils (%) (Auto) % (45.0-75.0) Lymphocytes (%) (Auto) % (20.0-45.0) Monocytes (%) (Auto) % (1.0-10.0) Eosinophils (%) (Auto) % (0.0-3.0) Basophils (%) (Auto) % (0.0-2.0) Differential Total Cells Counted 100 Neutrophils % (Manual) 83 % (45-75) H Lymphocytes % (Manual) 8 % (20-45) L Monocytes % (Manual) 7 % (1-10) Eosinophils % (Manual) 1 % (0-3) Basophils % (Manual) 1 % (0-2) Band Neutrophils 0 % (0-8) Platelet Estimate Adequate Platelet Morphology Normal Hypochromasia 3+ Anisocytosis 1+ Spherocytes 1+ Sodium Level 145 MMOL/L (136-145) Potassium Level 3.7 MMOL/L (3.5-5.1) Chloride Level 114 MMOL/L (98-107) H Carbon Dioxide Level 22 MMOL/L (21-32) Anion Gap 9 mmol/L (5-15) Blood Urea Nitrogen 21 mg/dL (7-18) H Creatinine 1.3 MG/DL (0.55-1.30) Estimat Glomerular Filtration Rate > 60 mL/min (>60) Glucose Level 92 MG/DL (74-106) Calcium Level 8.0 MG/DL (8.5-10.1) L Total Bilirubin 1.1 MG/DL (0.2-1.0) H Direct Bilirubin 0.6 MG/DL (0.0-0.3) H Aspartate Amino Transf (AST/SGOT) 42 U/L (15-37) H Alanine Aminotransferase (ALT/SGPT) 36 U/L (12-78) Alkaline Phosphatase 401 U/L (46-116) H Total Protein 6.8 G/DL (6.4-8.2) Albumin 1.9 G/DL (3.4-5.0) L Globulin 4.9 g/dL Albumin/Globulin Ratio 0.4 (1.0-2.7) L Arterial Blood pH 7.484 (7.350-7.450) Arterial Blood Partial Pressure CO2 23.2 mmHg (35.0-45.0) *L Arterial Blood Partial Pressure O2 55.3 mmHg (75.0-100.0) L Arterial Blood HCO3 17.0 mmol/L (22.0-26.0) *L Arterial Blood Oxygen Saturation 86.8 % (95-100) *L Arterial Blood Base Excess -5.6 (-2-2) L Iglesia Test Positive Lactic Acid Level 1.00 mmol/L (0.4-2.0) Height (Feet): 5 Height (Inches): 10.00 Weight (Pounds): 112 Medications Current Medications Medications (Trade) Dose Ordered Sig/Piedad Route PRN Reason Start Time Stop Time Status Last Admin Dose Admin Acetaminophen (Tylenol) 650 mg Q6H PRN GT Temp >100.5 08/10/20 20:20 09/09/20 20:19 08/17/20 15:10 Baclofen (Lioresal) 10 mg THREE TIMES A DAY GT 08/11/20 09:00 09/07/20 08:59 08/17/20 17:45 Cefepime HCl 2 gm/ Dextrose 55 ml @ 110 mls/hr EVERY 12 HOURS IVPB 08/14/20 13:00 08/21/20 12:59 08/17/20 09:11 Chlorhexidine Gluconate (Christy-Hex 2%) 1 applic DAILY@2000 TOPIC 08/14/20 20:00 11/12/20 19:59 08/17/20 20:21 Colistimethate Sodium (Colistin *inhalation use only*) 75 mg Q12HR@10,22 INH 08/13/20 22:00 08/20/20 21:59 08/17/20 10:45 Famotidine (Pepcid) 20 mg DAILY GT 08/11/20 09:00 11/06/20 08:59 08/17/20 09:04 Folic Acid (Folate) 1 mg DAILY GT 08/11/20 09:00 09/07/20 08:59 08/17/20 09:04 Heparin Sodium (Porcine) (Heparin 5000 units/ml) 5,000 units EVERY 12 HOURS SUBQ 08/10/20 21:00 09/22/20 20:59 08/17/20 09:43 Levetiracetam 100 ml @ 400 mls/hr Q12HR IVPB 08/14/20 10:00 11/12/20 09:59 08/17/20 20:21 Metoclopramide HCl (Reglan) 5 mg Q6H PRN IVP Nausea & Vomiting 08/13/20 22:15 09/12/20 22:14 Morphine Sulfate (Morphine Sulfate) 2 mg Q3H PRN IVP mild pain 08/12/20 23:00 08/19/20 22:59 08/15/20 20:46 Morphine Sulfate (Morphine Sulfate) 4 mg Q3H PRN IVP moderate pain 08/12/20 23:00 08/19/20 22:59 08/12/20 23:07 Multivitamins (Multivitamins) 1 tab DAILY GT 08/11/20 09:00 09/07/20 08:59 08/17/20 09:04 Pantoprazole (Protonix) 40 mg EVERY 12 HOURS IVP 08/13/20 22:15 09/12/20 22:14 08/17/20 20:21 Sodium Bicarbonate 50 ml/ Dextrose/Sodium Chloride 1,050 ml @ 50 mls/hr Q21H IV 08/17/20 16:00 09/16/20 15:59 08/17/20 16:28 Vancomycin HCl (Vanco pharmacy to dose) 1 ea DAILY PRN MISC Per rx protocol 08/16/20 10:00 08/22/20 08:59 Assessment/Plan Assessment/Plan: Hematology Consultation REQ MD: Celestina Celaya 08/17/20 RFC: SS Crisis and leukocytosis persistent ID 35-year-old male well known to me, has been sent in from [facility] after increased fever and increased heart rate, was recently here. Patient had prior history of sickle cell disease. Previously had craniotomy for intracranial hemorrhage and is been chronically ventilator dependent. Patient had been having fever up to 100.5 at the facility. Had been noted to have heart rate approximately 150. Prior history of seizures as well as hematochromatosis from prior transfusions. Ferritin noted to be elevated, heme was consulted for further eval, I last saw him approx 1 mo ago and hgb now 7.3, wbc 25k, on cefe pime and colistin. Coded Allergies: ADHESIVE TAPE (Verified Allergy, Unknown, 07/20/20) COVID-19 Screening Contact w/high risk pt: Yes Experienced COVID-19 symptoms?: Yes Patient History Past Medical History: see triage record Past Surgical History: other - tracheotomy Reviewed Nursing Documentation: PMH: Agreed; PSxH: Agreed Review of Systems All Other Systems: limited - Review of systems: Review systems is limited by patient's being a poor historian Physical Exam General: alert, Chronically Ill Head: other - Large right-sided craniotomy defect well-heale ++, tracheotomy/vent Respiratory: crackles, rales, other - right side chest wall tenderness Cardiovascular: tachycardia Gastrointestinal: normal inspection, soft Musk: decreased range of motion, other - atrophic, motor weakness Neurologic: alert, motor weakness, other - left hemineglect Psychiatric: normal inspection Skin: no rash Labs reviewed Imaging: noted Assessment and Recs # Sickle cell crisus noted upon admission, with hx of sickle cell anemia --> hgb 6.5-->7.1-->6.6->>>>7.3 --> 1 unit prbc on 07/23 --> ivfs have been started --> anemia panel ordered, with elev ferritin --> recommend to consider hydrea when discharged if stable --> likely does have mild hemolysis --> hgb electrophoresis show evidence of sickle cell trait # Hyperferritinemia with elevated ferritin that was noted --> likely consider exjade once discharged though at this time not limiting --> ferritin can >2000 with recurrent transfusions --> trend over time, for EOD observe # Leukocytosis poa with Severe sepsis due to line infection --> on vancomycin-->cefepime/colistin --> wbc 25 # Respiratory failure s/p Ventilator dependent --> as per pulm, vent adjustment # Port-A-Cath in place --> s/p abx --> s/p permacath removal # Transaminitis -->liver function elevated --> per gi # Dt ppx heparin sq The timing of this note does not necessarily reflect the time of the patient was seen. Greatly appreciate consultation. Roshan Castillo MD Aug 17, 2020 20:39
--- NOTE | 2020-08-17 21:40 | NUR ---
NURSE NOTES: Pt came back from Head CT and Chest X ray.
--- NOTE | 2020-08-17 23:20 | NUR ---
NURSE NOTES: pt turned, repositioned and cleaned. opti- foams in place at pts pressure points.
[2020-08-18] VITALS: BP 122/64
--- NOTE | 2020-08-18 02:00 | NUR ---
NURSE NOTES: pt turned, repositioned and cleaned. opti foams in place on pts pressure points.
[2020-08-18 03:54] LABS: HEMOGLOBIN 7.7 G/DL (14.2-18.0); MEAN CORPUSCULAR VOLUME 93 FL (80-99); PLATELET COUNT 366 K/UL (150-450); RED BLOOD COUNT 2.36 M/UL (4.70-6.10); RED CELL DISTRIBUTION WIDTH 17.4 % (11.6-14.8)
[2020-08-18 04:00] VITALS: BP 128/69
--- NOTE | 2020-08-18 04:00 | NUR ---
NURSE NOTES: Blood/ lab draw from pt. handed lab work to Electrical Electronics Technician.
--- NOTE | 2020-08-18 05:45 | NUR ---
NURSE NOTES: called Doctor Ryan urgent line and reported WBC of 28.0.
[2020-08-18] MEDS ORDERED: Vancomycin 750mg/NS 275ml IVPB ONE ×2 (06:00)
--- NOTE | 2020-08-18 06:14 | NUR ---
NURSE NOTES: doctor Belia saw pt in person. reported EEG, head CT, Chest X ray have been done. he stated he will review the results.
[2020-08-18 06:30] LABS: ALANINE AMINOTRANSFERASE 43 U/L (12-78); ALBUMIN 2.1 G/DL (3.4-5.0); ALBUMIN/GLOBULIN RATIO 0.4 (1.0-2.7); ALKALINE PHOSPHATASE 465 U/L (46-116); ANION GAP 15 mmol/L (5-15); ASPARTATE AMINO TRANSFERASE 57 U/L (15-37); BILIRUBIN,DIRECT 0.5 MG/DL (0.0-0.3); BILIRUBIN,TOTAL 1.2 MG/DL (0.2-1.0); BLOOD UREA NITROGEN 24 mg/dL (7-18); CALCIUM 8.1 MG/DL (8.5-10.1); CARBON DIOXIDE 17 MMOL/L (21-32); CHLORIDE 114 MMOL/L (98-107); CREATININE 1.2 MG/DL (0.55-1.30); POTASSIUM 3.6 MMOL/L (3.5-5.1); SODIUM 146 MMOL/L (136-145)
--- NOTE | 2020-08-18 07:23 | NUR ---
NURSE HAND-OFF REPORT: Important Events on Shift:[REPORTING PROCEDURES TO DOCTOR GRACE] Patient Status: [STABLE] Diet: [TUBE FEEDING] Pending Orders: [NA] Pending Results/Labs:[NA] Pending MD notification:[NA] Latest Vital Signs: Temperature 97.8 , Pulse 56 , B/P 128 /69 , Respiratory Rate 18 , O2 SAT 97 , Mechanical Ventilator, O2 Flow Rate . Vital Sign Comment: [Stable] EKG Rhythm: Sinus Bradycardia Rhythm change?: N MD Notified?: N -Dr Regan JIMENEZ Response: Latest Stevens Fall Score: 50 Fall Risk: High Risk Safety Measures: Call light Within Reach, Bed Alarm Zone 1, Side Rails Side Rails x3, Bed position Low and Locked. Fall Precautions: Yellow Socks Yellow Gown Door Sign Patient Fall Education Report given to [ARIS Rojas RN].
--- NOTE | 2020-08-18 07:25 | NUR ---
NURSE NOTES: Report received from Jose Manuel Ross RN.Pt resting in bed awake,confused,noted no resp distress,with trach tube to vent ,ordered Vent settings tolerated ,no signs of pain or discomfort,SR on the monitor,GTF Vital AF 60 ml/hr goal is 75 ml/hr,no residual noted,[place] cath draining yellow urine,skin warm and dry with IV site to SHER PICC line ,site intact with IVF D5 1/2 NS with 50 ml Bicarb infusing at 50 ml/hr,SR up x2 HOB elevated,bed lock in lowest position will continue with plans of care.
[2020-08-18 08:12] VITALS: BP 116/64
--- NOTE | 2020-08-18 08:12 | Critical Care Progress Note ---
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 Port-A-Cath Status post removal of implanted right chest wall Port-A-Cath Sickle cell crisis Sickle cell anemia Chronic respiratory failure, ventilator dependent, with tracheostomy status Transaminitis Seizure disorder acute pneumonia leukocytosis recurrent sepsis PLAN care noted IV antibiotics noted respiratory care Ventilatory support- pressure control; as is volumes adequate sedation as needed SNF meds supportive care suction no wean planned still ill; repeat cbc oxygen therapy and titrate prognosis guarded ID follow up and recommendations medications/laboratory data/nursing notes reviewed in detail note reviewed and edited care discussed with RN and RT Critical Care - Subjective Interval Events: remains ill care noted labs still not improved ROS Limited/Unobtainable: Yes Condition: critical EKG Rhythm: Sinus Bradycardia I&O: Intake and Output 08/17/20 08/18/20 19:00 07:00 Intake Total 1345 ml 1345 ml Output Total 1000 ml Balance 345 ml 1345 ml Free Water 230 ml IV Total 505 ml 705 ml Tube Feeding 610 ml 640 ml Output Urine Total 1000 ml # Bowel Movements 6 3 Critical Care - Objective Last 24 Hour Vital Signs Date Time Temp Pulse Resp B/P (MAP) Pulse Ox O2 Delivery O2 Flow Rate FiO2 08/18/20 07:20 56 18 40 08/18/20 04:00 Mechanical Ventilator 08/18/20 04:00 56 08/18/20 04:00 40 08/18/20 04:00 97.8 51 18 128/69 (88) 97 08/18/20 02:44 54 18 40 08/18/20 00:00 97.3 47 18 122/64 (83) 99 08/18/20 00:00 40 08/18/20 00:00 51 08/18/20 00:00 Mechanical Ventilator 08/17/20 22:33 52 18 100 Mechanical Ventilator 40 53 21 08/17/20 20:00 40 08/17/20 20:00 Mechanical Ventilator 08/17/20 20:00 46 08/17/20 20:00 97.5 49 18 117/66 (83) 100 08/17/20 18:48 49 18 40 08/17/20 16:28 97.8 08/17/20 16:00 99.9 50 18 119/64 (82) 99 08/17/20 16:00 40 08/17/20 16:00 Mechanical Ventilator 08/17/20 16:00 60 08/17/20 14:35 60 18 40 08/17/20 12:00 40 08/17/20 12:00 97.9 53 20 127/75 (92) 100 08/17/20 12:00 Mechanical Ventilator 08/17/20 12:00 49 08/17/20 10:48 59 23 100 Mechanical Ventilator 40 59 23 Objective: WDWN NAD reduced breath sounds bilaterally without rhonchi or wheeze [id number] without MRG NABS nontender GT no CCE reduced LOC James Nuñez MD Aug 18, 2020 08:11
[2020-08-18] MEDS: Pantoprazole Inj IVP SCH ×2 (09:15→20:24)
[2020-08-18] MEDS: levETIRAcetam 1,000mg/NS100ml 100 ML IVPB SCH ×2 (09:16→20:24)
[2020-08-18] MEDS: Cefepime HCl 2 GM in D5W 55 ML IVPB SCH ×2 (09:16→21:01)
[2020-08-18] MEDS: Heparin 5000 units/ml inj SUBQ SCH ×2 (09:18→20:20)
--- NOTE | 2020-08-18 09:44 | Diagnostic Imaging Report ---
EXAM: CT CT Head no Contrast INDICATION: Altered mental status. TECHNIQUE: Axial images of the brain were obtained with subsequent sagittal and coronal reformats. All CT scans at this facility are performed using dose modulation techniques as appropriate to a performed exam including the following: automated exposure control with adjustment of the mA and/or kV according to patient size. COMPARISON STUDY: None. RADIATION DOSE: CTDIvol: 53.4 mGy DLP: 926 mGy-cm Dose information generated by the CT scanner is available in PACS. FINDINGS: There is a large craniectomy defect in the right frontal temporal region. Diffuse age-related volume loss demonstrated. 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 No definite acute infarct seen. There is no hemorrhage, mass effect or shift. Ventricles and cisterns as well as brainstem and posterior fossa appear unremarkable. The sellar region is normal. Sinuses, mastoid air cells and bony calvarium appear intact. IMPRESSION: Large right frontotemporal craniectomy defect. 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 No definite acute intracranial abnormality.
--- NOTE | 2020-08-18 10:00 | NUR ---
NURSE NOTES: Oral care done,Oral/tracheal secretions suctioned PRN,pulled up and repositioned.
[2020-08-18] MEDS: Colistin for inhalation INH SCH ×2 (10:30→22:30)
--- NOTE | 2020-08-18 11:09 | Infectious Diseases Prog Note ---
"Assessment/Plan Assessment/Plan antibiotics : vancomycin iv, cefepime, inhaled colistin A 1. MRSA | serratia sepsis s/p catheter removal 2. MRSA | serratia | pseudomonas pneumonia 3. respiratory failure 4. sickle cell disease 5. anemia 6. leucocytosis improving 7. seizures P 1. continue iv vancomycin 2 more days 2. continue inhaled colistin 1 more day 3. continue cefepime 5 more days 4. will follow up cultures Subjective ROS Limited/Unobtainable: Yes Allergies: Coded Allergies: ADHESIVE TAPE (Verified Allergy, Unknown, 07/20/20) Uncoded Allergies: TAPE (Allergy, Unknown, 08/07/20) Objective Last 24 Hour Vital Signs Date Time Temp Pulse Resp B/P (MAP) Pulse Ox O2 Delivery O2 Flow Rate FiO2 08/18/20 08:12 97.3 50 18 116/64 (81) 99 50 08/18/20 08:00 Mechanical Ventilator 08/18/20 08:00 40 08/18/20 07:56 50 08/18/20 07:20 56 18 40 08/18/20 04:00 Mechanical Ventilator 08/18/20 04:00 56 08/18/20 04:00 40 08/18/20 04:00 97.8 51 18 128/69 (88) 97 08/18/20 02:44 54 18 40 08/18/20 00:00 97.3 47 18 122/64 (83) 99 08/18/20 00:00 40 08/18/20 00:00 51 08/18/20 00:00 Mechanical Ventilator 08/17/20 22:33 52 18 100 Mechanical Ventilator 40 53 21 08/17/20 20:00 40 08/17/20 20:00 Mechanical Ventilator 08/17/20 20:00 46 08/17/20 20:00 97.5 49 18 117/66 (83) 100 08/17/20 18:48 49 18 40 08/17/20 16:28 97.8 08/17/20 16:00 99.9 50 18 119/64 (82) 99 08/17/20 16:00 40 08/17/20 16:00 Mechanical Ventilator 08/17/20 16:00 60 08/17/20 14:35 60 18 40 08/17/20 12:00 40 08/17/20 12:00 97.9 53 20 127/75 (92) 100 08/17/20 12:00 Mechanical Ventilator 08/17/20 12:00 49 Height (Feet): 5 Height (Inches): 10.00 Weight (Pounds): 112 HEENT: status post trach Respiratory/Chest: lungs clear Cardiovascular: normal rate, regular rhythm, no gallop/murmur Abdomen: soft, non tender, other - GT Extremities: no edema, other - right arm PICC Laboratory Tests Test 08/17/20 14:24 08/17/20 15:40 08/18/20 03:40 Arterial Blood pH 7.484 (7.350-7.450) Arterial Blood Partial Pressure CO2 23.2 mmHg (35.0-45.0) *L Arterial Blood Partial Pressure O2 55.3 mmHg (75.0-100.0) L Arterial Blood HCO3 17.0 mmol/L (22.0-26.0) *L Arterial Blood Oxygen Saturation 86.8 % (95-100) *L Arterial Blood Base Excess -5.6 (-2-2) L Iglesia Test Positive Lactic Acid Level 1.00 mmol/L (0.4-2.0) White Blood Count 28.0 K/UL (4.8-10.8) *H Red Blood Count 2.36 M/UL (4.70-6.10) L Hemoglobin 7.7 G/DL (14.2-18.0) L Hematocrit 22.0 % (42.0-52.0) L Mean Corpuscular Volume 93 FL (80-99) Mean Corpuscular Hemoglobin 32.5 PG (27.0-31.0) H Mean Corpuscular Hemoglobin Concent 34.9 G/DL (32.0-36.0) Red Cell Distribution Width 17.4 % (11.6-14.8) H Platelet Count 366 K/UL (150-450) Mean Platelet Volume 8.6 FL (6.5-10.1) Neutrophils (%) (Auto) % (45.0-75.0) Lymphocytes (%) (Auto) % (20.0-45.0) Monocytes (%) (Auto) % (1.0-10.0) Eosinophils (%) (Auto) % (0.0-3.0) Basophils (%) (Auto) % (0.0-2.0) Differential Total Cells Counted 100 Neutrophils % (Manual) 84 % (45-75) H Lymphocytes % (Manual) 10 % (20-45) L Monocytes % (Manual) 4 % (1-10) Eosinophils % (Manual) 2 % (0-3) Basophils % (Manual) 0 % (0-2) Band Neutrophils 0 % (0-8) Nucleated Red Blood Cells 1 /100 WBC Platelet Estimate Adequate Platelet Morphology Normal Hypochromasia 1+ Anisocytosis 1+ Sodium Level 146 MMOL/L (136-145) H Potassium Level 3.6 MMOL/L (3.5-5.1) Chloride Level 114 MMOL/L (98-107) H Carbon Dioxide Level 17 MMOL/L (21-32) L Anion Gap 15 mmol/L (5-15) Blood Urea Nitrogen 24 mg/dL (7-18) H Creatinine 1.2 MG/DL (0.55-1.30) Estimat Glomerular Filtration Rate > 60 mL/min (>60) Glucose Level 109 MG/DL (74-106) H Calcium Level 8.1 MG/DL (8.5-10.1) L Total Bilirubin 1.2 MG/DL (0.2-1.0) H Direct Bilirubin 0.5 MG/DL (0.0-0.3) H Aspartate Amino Transf (AST/SGOT) 57 U/L (15-37) H Alanine Aminotransferase (ALT/SGPT) 43 U/L (12-78) Alkaline Phosphatase 465 U/L (46-116) H Total Protein 7.2 G/DL (6.4-8.2) Albumin 2.1 G/DL (3.4-5.0) L Globulin 5.1 g/dL Albumin/Globulin Ratio 0.4 (1.0-2.7) L Random Vancomycin Level 13.8 ug/mL Current Medications Medications (Trade) Dose Ordered Sig/Piedad Route PRN Reason Start Time Stop Time Status Last Admin Dose Admin Acetaminophen (Tylenol) 650 mg Q6H PRN GT Temp >100.5 08/10/20 20:20 09/09/20 20:19 08/17/20 15:10 Baclofen (Lioresal) 10 mg THREE TIMES A DAY GT 08/11/20 09:00 09/07/20 08:59 08/18/20 09:14 Cefepime HCl 2 gm/ Dextrose 55 ml @ 110 mls/hr EVERY 12 HOURS IVPB 08/14/20 13:00 08/21/20 12:59 08/18/20 09:16 Chlorhexidine Gluconate (Christy-Hex 2%) 1 applic DAILY@2000 TOPIC 08/14/20 20:00 11/12/20 19:59 08/17/20 20:21 Colistimethate Sodium (Colistin *inhalation use only*) 75 mg Q12HR@ INH 08/13/20 22:00 08/20/20 21:59 08/18/20 10:30 Famotidine (Pepcid) 20 mg DAILY GT 08/11/20 09:00 11/06/20 08:59 08/18/20 09:14 Folic Acid (Folate) 1 mg DAILY GT 08/11/20 09:00 09/07/20 08:59 08/18/20 09:14 Heparin Sodium (Porcine) (Heparin 5000 units/ml) 5,000 units EVERY 12 HOURS SUBQ 08/10/20 21:00 09/22/20 20:59 08/18/20 09:18 Levetiracetam 100 ml @ 400 mls/hr Q12HR IVPB 08/14/20 10:00 11/12/20 09:59 08/18/20 09:16 Metoclopramide HCl (Reglan) 5 mg Q6H PRN IVP Nausea & Vomiting 08/13/20 22:15 09/12/20 22:14 Morphine Sulfate (Morphine Sulfate) 2 mg Q3H PRN IVP mild pain 08/12/20 23:00 08/19/20 22:59 08/15/20 20:46 Morphine Sulfate (Morphine Sulfate) 4 mg Q3H PRN IVP moderate pain 08/12/20 23:00 08/19/20 22:59 08/12/20 23:07 Multivitamins (Multivitamins) 1 tab DAILY GT 08/11/20 09:00 09/07/20 08:59 08/18/20 09:14 Pantoprazole (Protonix) 40 mg EVERY 12 HOURS IVP 08/13/20 22:15 09/12/20 22:14 08/18/20 09:15 Sodium Bicarbonate 50 ml/ Dextrose/Sodium Chloride 1,050 ml @ 50 mls/hr Q21H IV 08/17/20 16:00 09/16/20 15:59 08/17/20 16:28 Vancomycin HCl (Vanco pharmacy to dose) 1 ea DAILY PRN MISC Per rx protocol 08/16/20 10:00 08/22/20 08:59 Isabelle Degroot MD Aug 18, 2020 11:09"
--- NOTE | 2020-08-18 11:41 | Surgery Progress Note ---
Surgery Progress Note Subjective Additional Comments wbc remains elevated on abx CT head noted Objective Last 24 Hour Vital Signs Date Time Temp Pulse Resp B/P (MAP) Pulse Ox O2 Delivery O2 Flow Rate FiO2 08/18/20 08:12 97.3 50 18 116/64 (81) 99 50 08/18/20 08:00 Mechanical Ventilator 08/18/20 08:00 40 08/18/20 07:56 50 08/18/20 07:20 56 18 40 08/18/20 04:00 Mechanical Ventilator 08/18/20 04:00 56 08/18/20 04:00 40 08/18/20 04:00 97.8 51 18 128/69 (88) 97 08/18/20 02:44 54 18 40 08/18/20 00:00 97.3 47 18 122/64 (83) 99 08/18/20 00:00 40 08/18/20 00:00 51 08/18/20 00:00 Mechanical Ventilator 08/17/20 22:33 52 18 100 Mechanical Ventilator 40 53 21 08/17/20 20:00 40 08/17/20 20:00 Mechanical Ventilator 08/17/20 20:00 46 08/17/20 20:00 97.5 49 18 117/66 (83) 100 08/17/20 18:48 49 18 40 08/17/20 16:28 97.8 08/17/20 16:00 99.9 50 18 119/64 (82) 99 08/17/20 16:00 40 08/17/20 16:00 Mechanical Ventilator 08/17/20 16:00 60 08/17/20 14:35 60 18 40 08/17/20 12:00 40 08/17/20 12:00 97.9 53 20 127/75 (92) 100 08/17/20 12:00 Mechanical Ventilator 08/17/20 12:00 49 I&O Intake and Output 08/17/20 08/18/20 19:00 07:00 Intake Total 1345 ml 1345 ml Output Total 1000 ml Balance 345 ml 1345 ml Free Water 230 ml IV Total 505 ml 705 ml Tube Feeding 610 ml 640 ml Output Urine Total 1000 ml # Bowel Movements 6 3 Dressing: other Wound: other Cardiovascular: RSR Respiratory: decreased breath sounds Abdomen: soft, non-tender, present bowel sounds Extremities: no edema, no tenderness, no cyanosis Laboratory Tests Test 08/17/20 14:24 08/17/20 15:40 08/18/20 03:40 Arterial Blood pH 7.484 (7.350-7.450) Arterial Blood Partial Pressure CO2 23.2 mmHg (35.0-45.0) *L Arterial Blood Partial Pressure O2 55.3 mmHg (75.0-100.0) L Arterial Blood HCO3 17.0 mmol/L (22.0-26.0) *L Arterial Blood Oxygen Saturation 86.8 % (95-100) *L Arterial Blood Base Excess -5.6 (-2-2) L Iglesia Test Positive Lactic Acid Level 1.00 mmol/L (0.4-2.0) White Blood Count 28.0 K/UL (4.8-10.8) *H Red Blood Count 2.36 M/UL (4.70-6.10) L Hemoglobin 7.7 G/DL (14.2-18.0) L Hematocrit 22.0 % (42.0-52.0) L Mean Corpuscular Volume 93 FL (80-99) Mean Corpuscular Hemoglobin 32.5 PG (27.0-31.0) H Mean Corpuscular Hemoglobin Concent 34.9 G/DL (32.0-36.0) Red Cell Distribution Width 17.4 % (11.6-14.8) H Platelet Count 366 K/UL (150-450) Mean Platelet Volume 8.6 FL (6.5-10.1) Neutrophils (%) (Auto) % (45.0-75.0) Lymphocytes (%) (Auto) % (20.0-45.0) Monocytes (%) (Auto) % (1.0-10.0) Eosinophils (%) (Auto) % (0.0-3.0) Basophils (%) (Auto) % (0.0-2.0) Differential Total Cells Counted 100 Neutrophils % (Manual) 84 % (45-75) H Lymphocytes % (Manual) 10 % (20-45) L Monocytes % (Manual) 4 % (1-10) Eosinophils % (Manual) 2 % (0-3) Basophils % (Manual) 0 % (0-2) Band Neutrophils 0 % (0-8) Nucleated Red Blood Cells 1 /100 WBC Platelet Estimate Adequate Platelet Morphology Normal Hypochromasia 1+ Anisocytosis 1+ Sodium Level 146 MMOL/L (136-145) H Potassium Level 3.6 MMOL/L (3.5-5.1) Chloride Level 114 MMOL/L (98-107) H Carbon Dioxide Level 17 MMOL/L (21-32) L Anion Gap 15 mmol/L (5-15) Blood Urea Nitrogen 24 mg/dL (7-18) H Creatinine 1.2 MG/DL (0.55-1.30) Estimat Glomerular Filtration Rate > 60 mL/min (>60) Glucose Level 109 MG/DL (74-106) H Calcium Level 8.1 MG/DL (8.5-10.1) L Total Bilirubin 1.2 MG/DL (0.2-1.0) H Direct Bilirubin 0.5 MG/DL (0.0-0.3) H Aspartate Amino Transf (AST/SGOT) 57 U/L (15-37) H Alanine Aminotransferase (ALT/SGPT) 43 U/L (12-78) Alkaline Phosphatase 465 U/L (46-116) H Total Protein 7.2 G/DL (6.4-8.2) Albumin 2.1 G/DL (3.4-5.0) L Globulin 5.1 g/dL Albumin/Globulin Ratio 0.4 (1.0-2.7) L Random Vancomycin Level 13.8 ug/mL Plan Problems: (1) Pneumonia (2) Sickle cell anemia (3) Tachycardia (4) Severe sepsis (5) Sickle cell crisis (6) Sepsis Assessment & Plan: 35-year-old male sickle cell multiple comorbidities history of craniotomy trach feeding tube prior port infected removed see prior admission and consult and operative notes. Currently presents with significant leukocytosis fevers hypotension in intensive care unit wound site evaluated unlikely etiology. Trach evaluated may consider changing. LFTs noted elevated. Ultrasound ordered pending results trend labs continue IV antibiotics appreciate infectious disease input will follow with recommendations thank you for let me participate in patient's care KUB and US noted labs reviewed transfuse prbc prn trach change peg changed line out picc placed pulmonary arteries: Evaluation for pulmonary embolus is limited due to breathing motion artifact. No central pulmonary emboli are identified. Aorta: No acute findings. No thoracic aortic aneurysm. Lungs: There are moderately consolidating infiltrates identified in both lower lobes dependently with mild additional patchy infiltrates dependently in both upper lobes. The findings are consistent with bilateral nonspecific pneumonia. Aspiration pneumonia could give this appearance. The infiltrates are only somewhat typical of Covid 19. Confidence is immediate. Pleural space: Unremarkable. No significant effusion. No pneumothorax. Heart: Unremarkable. No cardiomegaly. No significant pericardial effusion. No evidence of RV dysfunction. Bones/joints: No acute fracture. No dislocation. Soft tissues: Unremarkable. Lymph nodes: Unremarkable. No enlarged lymph nodes. Tubes, lines and devices: There is a tracheostomy tube in good position. IMPRESSION: 1. There are moderately consolidating infiltrates identified in both lower lobes dependently with mild additional patchy infiltrates dependently in both upper lobes. The findings are consistent with bilateral nonspecific pneumonia. Aspiration pneumonia could give this appearance. The infiltrates are only somewhat typical of Covid 19. Confidence is immediate. 2. Evaluation for pulmonary embolus is limited due to breathing motion artifact. No central pulmonary emboli are identified. The liver is homogeneous. We cannot identify a normal spleen. There is dense crescentic calcification in the left upper quadrant at the expected location of the spleen. Gallbladder is absent. The pancreas is unremarkable. Adrenals are normal in morphology. There is a small punctate cortical calcification left kidney. No hydronephrosis bilaterally There is a G-tube in place. Gas-filled bowel loops identified throughout the abdomen and pelvis. No discrete transition point or obstruction. Appendix partially visualized. There is some free fluid in the pelvis. There is no free air. There is a mildly prominent lymph nodes noted in the upper to mid retroperitoneum noted of undetermined etiology or significance. Rivera catheter noted in the bladder. The reservoir for the penile prosthesis is identified in the left lower pelvis. There is a right femoral venous catheter in place. Diffuse sclerosis of the bony pelvis and hips noted of undetermined etiology. IMPRESSION: BILATERAL LOWER LOBE PNEUMONIAS. ALSO SOME HAZY INFILTRATES IN THE UPPER LOBES. A NORMAL SPLEEN IS NOT VISUALIZED. THERE IS A DENSE CRESCENTIC CALCIFICATION LEFT UPPER QUADRANT AT THE EXPECTED LOCATION OF THE SPLEEN. 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 PUNCTATE CORTICAL CALCIFICATION LEFT KIDNEY. NO HYDRONEPHROSIS. PROMINENT LYMPH NODES IN THE UPPER TO MID RETROPERITONEUM OF UNDETERMINED ETIOLOGY OR SIGNIFICANCE. G-TUBE, RIVERA CATHETER, RIGHT FEMORAL CATHETER AND PENILE PROSTHESIS NOTED IN PLACE. MILD DIFFUSE SCLEROSIS OF THE BONY PELVIS AND BOTH HIPS OF UNDETERMINED ETIOLOGY. QUESTION HISTORY OF RENAL OSTEODYSTROPHY. There is a large craniectomy defect in the right frontal temporal region. Diffuse age-related volume loss demonstrated. There are old infarcts and encephalomala nancy noted in the frontal lobes and bilateral insular regions. No definite acute infarct seen. There is no hemorrhage, mass effect or shift. Ventricles and cisterns as well as brainstem and posterior fossa appear unremarkable. The sellar region is normal. Sinuses, mastoid air cells and bony calvarium appear intact. IMPRESSION: Large right frontotemporal craniectomy defect. 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 No definite acute intracranial abnormality. (7) Port-A-Cath in place Assessment & Plan: prior removal for infection site okay dressings changed no active infection from wound picc Harman Zhao Aug 18, 2020 11:41
[2020-08-18 11:43] VITALS: BP 120/72
--- NOTE | 2020-08-18 12:00 | NUR ---
NURSE NOTES: Pt stable,no resp distress presented,asleep on and off.
[2020-08-18] MEDS: Sodium Bicarbonate 50 ML in D5 1/2NS 1,000 ML IV SCH (12:19)
--- NOTE | 2020-08-18 14:30 | Diagnostic Imaging Report ---
Indication: Reason For Exam: SOB Technique: Single AP view of the chest. Comparison: Chest radiograph dated 08/14/2020. Findings: The cardiomediastinal silhouette is unchanged in appearance. Redemonstration of right perihilar airspace opacities. Increasing density in the right lung base. Persistent trace left pleural effusion with associated streaky airspace opacities. Stable diffuse bronchial thickening. No pneumothorax. Interval placement of right PICC, which terminates in the expected location of the right atrium. Unchanged tracheostomy, which is cannulated. IMPRESSION: Increased density right lung base, which could represent increasing/redistributing layering pleural effusion versus worsening airspace consolidation.
--- NOTE | 2020-08-18 15:03 | NUR ---
CASE MANAGEMENT:REVIEW 08/17/20 SI: MRSA SEPSIS. PNA. SICKLE CELL TRACH/VENT DEPENDENT 98.2 55 19 121/70 100% ON VENT SUPPORT W/40% FIO2 WBC+28.0 H/H-7.7/22.0 BUN+24 CA-8.1 TBILI=1.2 DBILI+0.5 IS: IVF+NAHCO3@50/HR IV CEFEPIME Q12 IV KEPPRA Q12 IV PROTONIX Q12 COLISTIN INH Q12 HEPARIN SQ Q12 : STEP DOWN UNIT DCP: FROM [facility] PLAN: EEG COMPLETED ~ INTERPRETATION PENDING
--- NOTE | 2020-08-18 15:13 | General Progress Note ---
Subjective ROS Limited/Unobtainable: Yes Constitutional: Reports: malaise, weakness HEENT: Reports: no symptoms Cardiovascular: Reports: no symptoms Respiratory: Reports: shortness of breath Gastrointestinal/Abdominal: Reports: difficulty swallowing Genitourinary: Reports: no symptoms Neurologic/Psychiatric: Reports: pre-existing deficit, seizure Endocrine: Reports: no symptoms Hematologic/Lymphatic: Reports: anemia Allergies: Coded Allergies: ADHESIVE TAPE (Verified Allergy, Unknown, 07/20/20) Uncoded Allergies: TAPE (Allergy, Unknown, 08/07/20) All Systems: reviewed and negative except above Subjective alert. drowsy. tracks but does not follow commands. no fevers. +blood cultures from 08/15. remains oniv abx. D/w pts mother- states pt is definitely more confused than baseline. head ct noted. EEG results pending. Objective Last 24 Hour Vital Signs Date Time Temp Pulse Resp B/P (MAP) Pulse Ox O2 Delivery O2 Flow Rate FiO2 08/18/20 12:00 52 08/18/20 12:00 Mechanical Ventilator 08/18/20 12:00 40 08/18/20 11:43 97.1 51 17 120/72 (88) 100 51 08/18/20 10:45 53 18 100 Mechanical Ventilator 40 54 18 08/18/20 08:12 97.3 50 18 116/64 (81) 99 50 08/18/20 08:00 Mechanical Ventilator 08/18/20 08:00 40 08/18/20 07:56 50 08/18/20 07:20 56 18 40 08/18/20 04:00 Mechanical Ventilator 08/18/20 04:00 56 08/18/20 04:00 40 08/18/20 04:00 97.8 51 18 128/69 (88) 97 08/18/20 02:44 54 18 40 08/18/20 00:00 97.3 47 18 122/64 (83) 99 08/18/20 00:00 40 08/18/20 00:00 51 08/18/20 00:00 Mechanical Ventilator 08/17/20 22:33 52 18 100 Mechanical Ventilator 40 53 21 08/17/20 20:00 40 08/17/20 20:00 Mechanical Ventilator 08/17/20 20:00 46 08/17/20 20:00 97.5 49 18 117/66 (83) 100 08/17/20 18:48 49 18 40 08/17/20 16:28 97.8 08/17/20 16:00 99.9 50 18 119/64 (82) 99 08/17/20 16:00 40 08/17/20 16:00 Mechanical Ventilator 08/17/20 16:00 60 Intake and Output 08/17/20 08/18/20 19:00 07:00 Intake Total 1345 ml 1345 ml Output Total 1000 ml Balance 345 ml 1345 ml Free Water 230 ml IV Total 505 ml 705 ml Tube Feeding 610 ml 640 ml Output Urine Total 1000 ml # Bowel Movements 6 3 Laboratory Tests 08/17/20 15:40: Lactic Acid Level 1.00 08/18/20 03:40: White Blood Count 28.0*H, Red Blood Count 2.36L, Hemoglobin 7.7L, Hematocrit 22.0L, Mean Corpuscular Volume 93, Mean Corpuscular Hemoglobin 32.5H, Mean Corpuscular Hemoglobin Concent 34.9, Red Cell Distribution Width 17.4H, Platelet Count 366, Mean Platelet Volume 8.6, Neutrophils (%) (Auto) , Lymphocytes (%) (Auto) , Monocytes (%) (Auto) , Eosinophils (%) (Auto) , Basophils (%) (Auto) , Differential Total Cells Counted 100, Neutrophils % (Manual) 84H, Lymphocytes % (Manual) 10L, Monocytes % (Manual) 4, Eosinophils % (Manual) 2, Basophils % (Manual) 0, Band Neutrophils 0, Nucleated Red Blood Cells 1, Platelet Estimate Adequate, Platelet Morphology Normal, Hypochromasia 1+, Anisocytosis 1+, Sodium Level 146H, Potassium Level 3.6, Chloride Level 114H, Carbon Dioxide Level 17L, Anion Gap 15, Blood Urea Nitrogen 24H, Creatinine 1.2, Estimat Glomerular Filtration Rate > 60, Glucose Level 109H, Calcium Level 8.1L, Total Bilirubin 1.2H, Direct Bilirubin 0.5H, Aspartate Amino Transf (AST/SGOT) 57H, Alanine Aminotransferase (ALT/SGPT) 43, Alkaline Phosphatase 465H, Total Protein 7.2, Albumin 2.1L, Globulin 5.1, Albumin/Globulin Ratio 0.4L, Random Vancomycin Level 13.8 Height (Feet): 5 Height (Inches): 10.00 Weight (Pounds): 112 Objective General Appearance: WD/WN, lethargic EENT: normal ENT inspection Neck: normal alignment Cardiovascular: normal peripheral pulses, normal rate Respiratory/Chest: chest wall non-tender, lungs clear, normal breath sounds Abdomen: normal bowel sounds, non tender, soft, no organomegaly Edema: no edema noted Arm (L), no edema noted Arm (R) Neurologic: unresponsive Assessment/Plan Problem List: (1) Pneumonia ICD Codes: J18.9 - Pneumonia, unspecified organism SNOMED: 548469492 Qualifiers: Qualified Codes: J18.9 - Pneumonia, unspecified organism (2) Sickle cell anemia ICD Codes: D57.1 - Sickle-cell disease without crisis SNOMED: 633607763 Qualifiers: Qualified Codes: D57.00 - Hb-SS disease with crisis, unspecified (3) Severe sepsis ICD Codes: A41.9 - Sepsis, unspecified organism; R65.20 - Severe sepsis without septic shock SNOMED: 47618342 Status: stable, not improved Assessment/Plan: cont vent support resp care gt feeds iv abx per ID follow up albs monitor h/h transfuse as needed PPI rx echo follow up eeg ct reviewed +infiltrates Lalo Celaya MD Aug 18, 2020 15:13
--- NOTE | 2020-08-18 15:14 | Electroencephalogram ---
DATE OF PROCEDURE: 08/17/2020 REQUESTING PHYSICIAN: Lalo Celaya MD. READING PHYSICIAN: Kenan Phelps MD. HISTORY: This EEG was performed on a 35-year-old gentleman with a history of multiple medical problems, who was noted to have seizures. The purpose of this EEG was to evaluate the patient for ongoing ictal or interictal phenomena. TECHNICAL NOTE: This EEG was performed on a [employer] Unit with electrodes placed on the scalp according to the International 10-20 system. Desye-wy-niekh and sujhx-ry-erw montages were used. The EEG was of technically mediocre quality because a whole set of electrodes was not utilized. The EEG was performed predominantly while the patient was in the reportedly awake state. OBSERVATIONS: In the reportedly awake state, the background activity consisted of 5-6 Hz theta and 2- 2.5 Hz delta activity. Right frontocentral polymorphic delta activity was seen throughout the tracing. A few interspersed C4 sharp discharges were also noted. IMPRESSION: This is an abnormal EEG characterized by: 1. Slowing of the background in the theta and delta range. 2. The presence of right frontocentral polymorphic delta activity. 3. The presence of C4 sharp discharges. COMMENT: This study is consistent with: 1. An encephalopathy of a severe degree. 2. Right frontocentral focal dysfunction. 3. A right central epileptogenic focus with interictal discharges seen on this EEG. Kenan Phelps M.D., M.S.P.H. DR: DENISE JOB#: [id number] JOSE
[2020-08-18 16:00] VITALS: BP 117/58
--- NOTE | 2020-08-18 16:00 | NUR ---
NURSE NOTES: Pt's mother at bedside,updated re pt's status.
--- NOTE | 2020-08-18 18:00 | NUR ---
NURSE NOTES: Bed bath given pt with BM ,soft stools to liquid stools x3.kept dry and clean.
--- NOTE | 2020-08-18 18:18 | General Progress Note ---
Subjective Allergies: Coded Allergies: ADHESIVE TAPE (Verified Allergy, Unknown, 07/20/20) Uncoded Allergies: TAPE (Allergy, Unknown, 08/07/20) Subjective above noted NAD , Calm d/w RN on TF - [place] well Objective Last 24 Hour Vital Signs Date Time Temp Pulse Resp B/P (MAP) Pulse Ox O2 Delivery O2 Flow Rate FiO2 08/18/20 16:00 78 08/18/20 16:00 40 08/18/20 16:00 97.3 64 19 117/58 (77) 99 64 08/18/20 16:00 Mechanical Ventilator 08/18/20 15:20 52 18 40 08/18/20 12:00 52 08/18/20 12:00 Mechanical Ventilator 08/18/20 12:00 40 08/18/20 11:43 97.1 51 17 120/72 (88) 100 51 08/18/20 10:45 53 18 100 Mechanical Ventilator 40 54 18 08/18/20 08:12 97.3 50 18 116/64 (81) 99 50 08/18/20 08:00 Mechanical Ventilator 08/18/20 08:00 40 08/18/20 07:56 50 08/18/20 07:20 56 18 40 08/18/20 04:00 Mechanical Ventilator 08/18/20 04:00 56 08/18/20 04:00 40 08/18/20 04:00 97.8 51 18 128/69 (88) 97 08/18/20 02:44 54 18 40 08/18/20 00:00 97.3 47 18 122/64 (83) 99 08/18/20 00:00 40 08/18/20 00:00 51 08/18/20 00:00 Mechanical Ventilator 08/17/20 22:33 52 18 100 Mechanical Ventilator 40 53 21 08/17/20 20:00 40 08/17/20 20:00 Mechanical Ventilator 08/17/20 20:00 46 08/17/20 20:00 97.5 49 18 117/66 (83) 100 08/17/20 18:48 49 18 40 Intake and Output 08/17/20 08/18/20 19:00 07:00 Intake Total 1345 ml 1465 ml Output Total 1000 ml Balance 345 ml 1465 ml Free Water 230 ml IV Total 505 ml 755 ml Tube Feeding 610 ml 710 ml Output Urine Total 1000 ml # Bowel Movements 6 3 Laboratory Tests 08/18/20 03:40: White Blood Count 28.0*H, Red Blood Count 2.36L, Hemoglobin 7.7L, Hematocrit 22.0L, Mean Corpuscular Volume 93, Mean Corpuscular Hemoglobin 32.5H, Mean Corpuscular Hemoglobin Concent 34.9, Red Cell Distribution Width 17.4H, Platelet Count 366, Mean Platelet Volume 8.6, Neutrophils (%) (Auto) , Lymphocytes (%) (Auto) , Monocytes (%) (Auto) , Eosinophils (%) (Auto) , Basophils (%) (Auto) , Differential Total Cells Counted 100, Neutrophils % (Manual) 84H, Lymphocytes % (Manual) 10L, Monocytes % (Manual) 4, Eosinophils % (Manual) 2, Basophils % (Manual) 0, Band Neutrophils 0, Nucleated Red Blood Cells 1, Platelet Estimate Adequate, Platelet Morphology Normal, Hypochromasia 1+, Anisocytosis 1+, Sodium Level 146H, Potassium Level 3.6, Chloride Level 114H, Carbon Dioxide Level 17L, Anion Gap 15, Blood Urea Nitrogen 24H, Creatinine 1.2, Estimat Glomerular Filtration Rate > 60, Glucose Level 109H, Calcium Level 8.1L, Total Bilirubin 1.2H, Direct Bilirubin 0.5H, Aspartate Amino Transf (AST/SGOT) 57H, Alanine Aminotransferase (ALT/SGPT) 43, Alkaline Phosphatase 465H, Total Protein 7.2, Albumin 2.1L, Globulin 5.1, Albumin/Globulin Ratio 0.4L, Random Vancomycin Level 13.8 Height (Feet): 5 Height (Inches): 10.00 Weight (Pounds): 112 Objective Thin AA Man HEENT s/p craniotomy neck (+) trach Coarse BS RR/tachy abd soft (+) GT no edema 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 +/- sepsis - sickle cell - severe anemia - transfused - hypotension - TF intolerance - leukocytosis/PNA/Sepsis - seizure d/o - s/p trach and PEG - guarded Recommendations - Continue TF - follow residual - PPI - GT care - Elevate HOB - check GABINO/AMA/hepatitis serologies - negative - hydration - I will return Mon to see patient Nasrin Stiles MD Aug 18, 2020 18:18
--- NOTE | 2020-08-18 19:15 | NUR ---
NURSE HAND-OFF REPORT: Important Events on Shift:N/A Patient Status: stable Diet: Vital AF1.2 at 70 ml/hr GT Pending Orders: n/A Pending Results/Labs:N/A Pending MD notification:N/A Latest Vital Signs: Temperature 97.3 , Pulse 51 , B/P 117 /58 , Respiratory Rate 18 , O2 SAT 99 , Mechanical Ventilator, O2 Flow Rate . Vital Sign Comment: Stable EKG Rhythm: Sinus Bradycardia Rhythm change?: N MD Notified?: N - MD Response: Latest Stevens Fall Score: 50 Fall Risk: High Risk Safety Measures: Call light Within Reach, Bed Alarm Zone 1, Side Rails Side Rails x3, Bed position Low and Locked. Fall Precautions: Yellow Socks Yellow Gown Door Sign Patient Fall Education Report given to .Jesus Cohn RN.
[2020-08-18] MEDS ORDERED: NS 275ml ONE (19:32)
--- NOTE | 2020-08-18 19:42 | NUR ---
NURSE NOTES: Received report from Raul RN, pt. in bed awake- watching television- appears to be alert x's 1 to name- no signs or symptoms of acute cardiac or respiratory distress noted, pt. appears to be tolerating current vent settings as ordered by MD- AC 12, TV 500, Fio2 at 40% and peep 5- no distress noted, no distress noted, G tube running Vital AF 1.2 at 70cc/hr- no residual noted, side rails padded for seizure precautions- no seizure activity noted upon assessment, Overton intact and draining to gravity, SHER picc running D5 1/2 NS +50 bicarb at 50cc/hr, safety measures continued, all needs attended too, will continue with plan of care.
[2020-08-18 20:00] VITALS: BP 135/77
[2020-08-18] MEDS: Dyna-Hex 2% Top Sol 2oz TOPIC SCH (20:24)
--- NOTE | 2020-08-18 22:45 | NUR ---
NURSE NOTES: repositioned and turned pt. - oral care provided, pt. appears to be tolerating current vent settings- no distress noted- All needs attended to, will continue to monitor pt. and with plan of care.
[2020-08-19] VITALS: BP 103/48
--- NOTE | 2020-08-19 01:47 | NUR ---
NURSE NOTES: full bed bath given- oral care provided, pt. appears to be tolerating current vent settings well- no distress noted, will continue to monitor pt. and with plan of care.
[2020-08-19 04:00] VITALS: BP 113/66
[2020-08-19 05:40] LABS: HEMATOCRIT 21.8 % (42.0-52.0); HEMOGLOBIN 7.1 G/DL (14.2-18.0); MEAN CORPUSCULAR VOLUME 95 FL (80-99); PLATELET COUNT 388 K/UL (150-450); RED BLOOD COUNT 2.29 M/UL (4.70-6.10); RED CELL DISTRIBUTION WIDTH 16.9 % (11.6-14.8)
[2020-08-19 06:32] LABS: ALANINE AMINOTRANSFERASE 54 U/L (12-78); ALBUMIN/GLOBULIN RATIO 0.4 (1.0-2.7); ALKALINE PHOSPHATASE 491 U/L (46-116); ANION GAP 11 mmol/L (5-15); ASPARTATE AMINO TRANSFERASE 65 U/L (15-37); BILIRUBIN,TOTAL 1.1 MG/DL (0.2-1.0); BLOOD UREA NITROGEN 25 mg/dL (7-18); CARBON DIOXIDE 21 MMOL/L (21-32); CHLORIDE 114 MMOL/L (98-107); CREATININE 1.1 MG/DL (0.55-1.30); POTASSIUM 3.7 MMOL/L (3.5-5.1); SODIUM 146 MMOL/L (136-145)
[2020-08-19 06:39] LABS: BILIRUBIN,DIRECT 0.5 MG/DL (0.0-0.3)
--- NOTE | 2020-08-19 07:08 | NUR ---
NURSE HAND-OFF REPORT: Important Events on Shift:NONE Patient Status: STABLE Diet: VITAL af 1.2 Pending Orders: Pending Results/Labs: Pending MD notification: Latest Vital Signs: Temperature 98.1 , Pulse 75 , B/P 113 /66 , Respiratory Rate 19 , O2 SAT 100 , Mechanical Ventilator, O2 Flow Rate . Vital Sign Comment: EKG Rhythm: Sinus SR Rhythm change?: MD Notified?: MD Response: Latest Stevens Fall Score: 50 Fall Risk: High Risk Safety Measures: Call light Within Reach, Bed Alarm Zone 1, Side Rails Side Rails x3, Bed position Low and Locked. Fall Precautions: Yellow Socks Yellow Gown Door Sign Patient Fall Education Report given to Eldon Becerra, RN, pt. remains stable and no signs of distress noted. AWARE TO F/U ON ANY ABNORMAL AM LABS.
--- NOTE | 2020-08-19 07:10 | NUR ---
NURSE NOTES: Received report from Jesus STODDARD, she stated that she called and notified MD re elevated WBC and that MD is aware. global sales director charge also aware
--- NOTE | 2020-08-19 07:11 | NUR ---
NURSE NOTES: Patient resting in bed, with eyes closed, responsive to light pain, non-verbal. Trach to vent P6, AC 12, TV 500, FiO2 40%. PICC SHER running D5 1/2 NS + 50 Bicarb, notified pharmacy that new bag is needed since bag is running low. Overton intact and draining to gravity with no dependent loops, patent, GT intact running Vital AF 1.2 @ 70 cc. Bed alarm on, bed in lowest position, call light within reach.
[2020-08-19 08:00] VITALS: BP 108/69
--- NOTE | 2020-08-19 08:31 | General Progress Note ---
Subjective ROS Limited/Unobtainable: No Constitutional: Reports: malaise, weakness HEENT: Reports: no symptoms Cardiovascular: Reports: no symptoms Respiratory: Reports: no symptoms Gastrointestinal/Abdominal: Reports: no symptoms Genitourinary: Reports: no symptoms Neurologic/Psychiatric: Reports: pre-existing deficit, seizure Endocrine: Reports: no symptoms Hematologic/Lymphatic: Reports: no symptoms Allergies: Coded Allergies: ADHESIVE TAPE (Verified Allergy, Unknown, 07/20/20) Uncoded Allergies: TAPE (Allergy, Unknown, 08/07/20) All Systems: reviewed and negative except above Subjective no change. awake but nonverbal. does not follow commands. no fevers or chills. remains on iv abx. wbc remains elevated 30K. on the vent. Objective Last 24 Hour Vital Signs Date Time Temp Pulse Resp B/P (MAP) Pulse Ox O2 Delivery O2 Flow Rate FiO2 08/19/20 07:10 79 25 40 08/19/20 04:00 Mechanical Ventilator 08/19/20 04:00 98.1 75 19 113/66 (82) 100 08/19/20 04:00 40 08/19/20 03:58 65 08/19/20 02:52 71 18 40 08/19/20 00:00 Mechanical Ventilator 08/19/20 00:00 98.1 56 18 103/48 (66) 100 08/19/20 00:00 40 08/18/20 23:41 60 08/18/20 22:31 56 18 100 Mechanical Ventilator 40 58 18 08/18/20 20:00 Mechanical Ventilator 08/18/20 20:00 40 08/18/20 20:00 98.1 54 18 135/77 (96) 100 08/18/20 19:25 51 08/18/20 19:00 51 18 40 08/18/20 16:00 78 08/18/20 16:00 40 08/18/20 16:00 97.3 64 19 117/58 (77) 99 64 08/18/20 16:00 Mechanical Ventilator 08/18/20 15:20 52 18 40 08/18/20 12:00 52 08/18/20 12:00 Mechanical Ventilator 08/18/20 12:00 40 08/18/20 11:43 97.1 51 17 120/72 (88) 100 51 08/18/20 10:45 53 18 100 Mechanical Ventilator 40 54 18 Intake and Output 08/18/20 08/19/20 19:00 07:00 Intake Total 1970 ml 1880 ml Output Total 650 ml 900 ml Balance 1320 ml 980 ml Free Water 300 ml 50 ml IV Total 650 ml 1060 ml Tube Feeding 840 ml 770 ml Other 180 ml Output Urine Total 650 ml 900 ml # Bowel Movements 5 3 Laboratory Tests 08/19/20 04:30: White Blood Count 31.0*H, Red Blood Count 2.29L, Hemoglobin 7.1L, Hematocrit 21.8L, Mean Corpuscular Volume 95, Mean Corpuscular Hemoglobin 31.1H, Mean Corpuscular Hemoglobin Concent 32.7, Red Cell Distribution Width 16.9H, Platelet Count 388, Mean Platelet Volume 8.2, Neutrophils (%) (Auto) , Lymphocytes (%) (Auto) , Monocytes (%) (Auto) , Eosinophils (%) (Auto) , Basophils (%) (Auto) , Neutrophils % (Manual) [Pending], Lymphocytes % (Manual) [Pending], Platelet Estimate [Pending], Platelet Morphology [Pending], Sodium Level 146H, Potassium Level 3.7, Chloride Level 114H, Carbon Dioxide Level 21, Anion Gap 11, Blood Urea Nitrogen 25H, Creatinine 1.1, Estimat Glomerular Filtration Rate > 60, Glucose Level 94, Calcium Level 8.0L, Total Bilirubin 1.1H, Direct Bilirubin 0.5H, Aspartate Amino Transf (AST/SGOT) 65H, Alanine Aminotransferase (ALT/SGPT) 54, Alkaline Phosphatase 491H, Total Protein 7.2, Albumin 2.0L, Globulin 5.2, Albumin/Globulin Ratio 0.4L, Random Vancomycin Level 15.7 Height (Feet): 5 Height (Inches): 10.00 Weight (Pounds): 112 Objective General Appearance: WD/WN, lethargic EENT: normal ENT inspection Neck: normal alignment Cardiovascular: normal peripheral pulses, normal rate Respiratory/Chest: chest wall non-tender, lungs clear, normal breath sounds Abdomen: normal bowel sounds, non tender, soft, no organomegaly Edema: no edema noted Arm (L), no edema noted Arm (R) Neurologic: unresponsive Assessment/Plan Problem List: (1) Pneumonia ICD Codes: J18.9 - Pneumonia, unspecified organism SNOMED: 398158102 Qualifiers: Qualified Codes: J18.9 - Pneumonia, unspecified organism (2) Sickle cell anemia ICD Codes: D57.1 - Sickle-cell disease without crisis SNOMED: 997666409 Qualifiers: Qualified Codes: D57.00 - Hb-SS disease with crisis, unspecified (3) Severe sepsis ICD Codes: A41.9 - Sepsis, unspecified organism; R65.20 - Severe sepsis without septic shock SNOMED: 40449706 Status: stable, not improved Assessment/Plan: cont vent support resp care gt feeds iv abx per ID follow up albs monitor h/h transfuse as needed PPI rx eeg- no szs keppra decreased to dauly(pts prior dose) ct reviewed +infiltrates Lalo Celaya MD Aug 19, 2020 08:31
[2020-08-19] MEDS: Sodium Bicarbonate 50 ML in D5 1/2NS 1,000 ML IV SCH (08:48)
[2020-08-19] MEDS: Colistin for inhalation INH SCH ×2 (10:00→22:37)
[2020-08-19] MEDS ORDERED: Vancomycin 750mg/NS 275ml IVPB ONE ×2 (10:00)
[2020-08-19] MEDS: Pantoprazole Inj IVP SCH ×2 (10:30→21:14)
[2020-08-19] MEDS: Heparin 5000 units/ml inj SUBQ SCH ×2 (10:36→20:58)
[2020-08-19] MEDS: levETIRAcetam 1,000mg/NS100ml 100 ML IVPB SCH ×2 (10:37→21:14)
[2020-08-19] MEDS: Cefepime HCl 2 GM in D5W 55 ML IVPB SCH ×2 (10:37→21:18)
--- NOTE | 2020-08-19 11:00 | NUR ---
NURSE NOTES: Telephone order received from Dr. Celaya to insert rectal tube d/t large amount of liquid stool. Patient tolerating feeding, no residual noted.
[2020-08-19 12:00] VITALS: BP 131/74
--- NOTE | 2020-08-19 12:28 | Pulmonology Progress Note ---
Subjective ROS Limited/Unobtainable: Yes Constitutional: Denies: fever Musculoskeletal: Denies: pain Allergies: Coded Allergies: ADHESIVE TAPE (Verified Allergy, Unknown, 07/20/20) Uncoded Allergies: TAPE (Allergy, Unknown, 08/07/20) All Systems: reviewed and negative except above Objective Last 24 Hour Vital Signs Date Time Temp Pulse Resp B/P (MAP) Pulse Ox O2 Delivery O2 Flow Rate FiO2 08/19/20 12:00 Mechanical Ventilator 08/19/20 11:10 65 21 40 08/19/20 08:00 Mechanical Ventilator 08/19/20 07:10 79 25 40 08/19/20 04:00 Mechanical Ventilator 08/19/20 04:00 98.1 75 19 113/66 (82) 100 08/19/20 04:00 40 08/19/20 03:58 65 08/19/20 02:52 71 18 40 08/19/20 00:00 Mechanical Ventilator 08/19/20 00:00 98.1 56 18 103/48 (66) 100 08/19/20 00:00 40 08/18/20 23:41 60 08/18/20 22:31 56 18 100 Mechanical Ventilator 40 58 18 08/18/20 20:00 Mechanical Ventilator 08/18/20 20:00 40 08/18/20 20:00 98.1 54 18 135/77 (96) 100 08/18/20 19:25 51 08/18/20 19:00 51 18 40 08/18/20 16:00 78 08/18/20 16:00 40 08/18/20 16:00 97.3 64 19 117/58 (77) 99 64 08/18/20 16:00 Mechanical Ventilator 08/18/20 15:20 52 18 40 Intake and Output 08/18/20 08/19/20 19:00 07:00 Intake Total 1970 ml 1880 ml Output Total 650 ml 900 ml Balance 1320 ml 980 ml Free Water 300 ml 50 ml IV Total 650 ml 1060 ml Tube Feeding 840 ml 770 ml Other 180 ml Output Urine Total 650 ml 900 ml # Bowel Movements 5 3 Laboratory Tests 08/19/20 04:30: White Blood Count 31.0*H, Red Blood Count 2.29L, Hemoglobin 7.1L, Hematocrit 21.8L, Mean Corpuscular Volume 95, Mean Corpuscular Hemoglobin 31.1H, Mean Corpuscular Hemoglobin Concent 32.7, Red Cell Distribution Width 16.9H, Platelet Count 388, Mean Platelet Volume 8.2, Neutrophils (%) (Auto) , Lymphocytes (%) (Auto) , Monocytes (%) (Auto) , Eosinophils (%) (Auto) , Basophils (%) (Auto) , Differential Total Cells Counted 100, Neutrophils % (Manual) 83H, Lymphocytes % (Manual) 10L, Monocytes % (Manual) 5, Eosinophils % (Manual) 2, Basophils % (Manual) 0, Band Neutrophils 0, Platelet Estimate Adequate, Platelet Morphology Normal, Anisocytosis 1+, Sodium Level 146H, Potassium Level 3.7, Chloride Level 114H, Carbon Dioxide Level 21, Anion Gap 11, Blood Urea Nitrogen 25H, Creatinine 1.1, Estimat Glomerular Filtration Rate > 60, Glucose Level 94, Calcium Level 8.0L, Total Bilirubin 1.1H, Direct Bilirubin 0.5H, Aspartate Amino Transf (AST/SGOT) 65H, Alanine Aminotransferase (ALT/SGPT) 54, Alkaline Phosphatase 49 1H, Total Protein 7.2, Albumin 2.0L, Globulin 5.2, Albumin/Globulin Ratio 0.4L, Random Vancomycin Level 15.7 Current Medications Medications (Trade) Dose Ordered Sig/Piedad Route PRN Reason Start Time Stop Time Status Last Admin Dose Admin Acetaminophen (Tylenol) 650 mg Q6H PRN GT Temp >100.5 08/10/20 20:20 09/09/20 20:19 08/17/20 15:10 Cefepime HCl 2 gm/ Dextrose 55 ml @ 110 mls/hr EVERY 12 HOURS IVPB 08/14/20 13:00 08/21/20 12:59 08/19/20 10:37 Chlorhexidine Gluconate (Christy-Hex 2%) 1 applic DAILY@1999 TOPIC 08/14/20 20:00 11/12/20 19:59 08/18/20 20:24 Colistimethate Sodium (Colistin *inhalation use only*) 75 mg Q12HR@10,22 INH 08/13/20 22:00 08/20/20 21:59 08/19/20 10:00 Famotidine (Pepcid) 20 mg DAILY GT 08/11/20 09:00 11/06/20 08:59 08/19/20 10:29 Folic Acid (Folate) 1 mg DAILY GT 08/11/20 09:00 09/07/20 08:59 08/19/20 09:00 Heparin Sodium (Porcine) (Heparin 5000 units/ml) 5,000 units EVERY 12 HOURS SUBQ 08/10/20 21:00 09/22/20 20:59 08/19/20 10:36 Levetiracetam 100 ml @ 400 mls/hr Q12HR IVPB 08/14/20 10:00 11/12/20 09:59 08/19/20 10:37 Metoclopramide HCl (Reglan) 5 mg Q6H PRN IVP Nausea & Vomiting 08/13/20 22:15 09/12/20 22:14 Morphine Sulfate (Morphine Sulfate) 2 mg Q3H PRN IVP mild pain 08/12/20 23:00 08/19/20 22:59 08/15/20 20:46 Morphine Sulfate (Morphine Sulfate) 4 mg Q3H PRN IVP moderate pain 08/12/20 23:00 08/19/20 22:59 08/12/20 23:07 Multivitamins (Multivitamins) 1 tab DAILY GT 08/11/20 09:00 09/07/20 08:59 08/19/20 10:29 Pantoprazole (Protonix) 40 mg EVERY 12 HOURS IVP 08/13/20 22:15 09/12/20 22:14 08/19/20 10:30 Sodium Bicarbonate 50 ml/ Dextrose/Sodium Chloride 1,050 ml @ 50 mls/hr Q21H IV 08/17/20 16:00 09/16/20 15:59 08/19/20 08:48 Vancomycin HCl (Vanco pharmacy to dose) 1 ea DAILY PRN MISC Per rx protocol 08/16/20 10:00 08/22/20 08:59 Assessment/Plan Assessment/Plan Pulmonary Progress Note Assessment/Plan History of MRSA sepsis probably due to infected Port-A-Cath - status post removal Sickle cell crisis Sickle cell anemia Chronic respiratory failure, ventilator dependent, with tracheostomy status Transaminitis Seizure disorder acute pneumonia, MRSA/Psaerug leukocytosis recurrent sepsis PLAN care noted IV antibiotics per ID respiratory care Ventilatory support- pressure control; as is volumes adequate sedation as needed SNF meds supportive care suction no wean planned still ill; repeat cbc oxygen therapy and titrate prognosis guarded ID follow up and recommendations medications/laboratory data/nursing notes reviewed in detail note reviewed and edited care discussed with RN and RT Subjective Interval Events: stable overnight care noted labs still not improved ROS Limited/Unobtainable: Yes Condition: stable Objective Vital Signs Noted Objective: WDWN NAD reduced breath sounds bilaterally without rhonchi or wheeze [id number] without MRG NABS nontender GT no CCE reduced LOC Benson Holden MD Aug 19, 2020 12:28
--- NOTE | 2020-08-19 13:50 | Hematology/Onc Progress Note ---
Assessment/Plan Assessment/Plan Assessment and Recs # Sickle cell crisis noted upon admission, with hx of sickle cell anemia --> hgb 6.5-->7.1-->6.6->>>>7.3-->7.1 --> 1 unit prbc on 07/23 --> ivfs have been started --> anemia panel ordered, with elev ferritin --> recommend to consider hydrea when discharged if stable --> likely does have mild hemolysis --> hgb electrophoresis show evidence of sickle cell trait # Hyperferritinemia with elevated ferritin that was noted --> likely consider exjade once discharged though at this time not limiting --> ferritin can >2000 with recurrent transfusions --> trend over time, for EOD observe # Leukocytosis poa with Severe sepsis due to line infection --> abx: vancomycin-->cefepime/colistin --> wbc 25-->31 # Respiratory failure s/p Ventilator dependent --> as per pulm, vent adjustment # Port-A-Cath in place --> s/p abx --> s/p permacath removal # Transaminitis -->liver function elevated --> per gi # Dt ppx heparin sq The timing of this note does not necessarily reflect the time of the patient was seen. Greatly appreciate consultation. Subjective Allergies: Coded Allergies: ADHESIVE TAPE (Verified Allergy, Unknown, 07/20/20) Uncoded Allergies: TAPE (Allergy, Unknown, 08/07/20) Subjective 08/19 no acute events, vent, iv abx, labs reviewed Objective Objective Current Medications Medications (Trade) Dose Ordered Sig/Piedad Route PRN Reason Start Time Stop Time Status Last Admin Dose Admin Acetaminophen (Tylenol) 650 mg Q6H PRN GT Temp >100.5 08/10/20 20:20 09/09/20 20:19 08/17/20 15:10 Cefepime HCl 2 gm/ Dextrose 55 ml @ 110 mls/hr EVERY 12 HOURS IVPB 08/14/20 13:00 08/21/20 12:59 08/19/20 10:37 Chlorhexidine Gluconate (Christy-Hex 2%) 1 applic DAILY@1999 TOPIC 08/14/20 20:00 11/12/20 19:59 08/18/20 20:24 Colistimethate Sodium (Colistin *inhalation use only*) 75 mg Q12HR@10,22 INH 08/13/20 22:00 08/20/20 21:59 08/19/20 10:00 Famotidine (Pepcid) 20 mg DAILY GT 08/11/20 09:00 11/06/20 08:59 08/19/20 10:29 Folic Acid (Folate) 1 mg DAILY GT 08/11/20 09:00 09/07/20 08:59 08/19/20 09:00 Heparin Sodium (Porcine) (Heparin 5000 units/ml) 5,000 units EVERY 12 HOURS SUBQ 08/10/20 21:00 09/22/20 20:59 08/19/20 10:36 Levetiracetam 100 ml @ 400 mls/hr Q12HR IVPB 08/14/20 10:00 11/12/20 09:59 08/19/20 10:37 Metoclopramide HCl (Reglan) 5 mg Q6H PRN IVP Nausea & Vomiting 08/13/20 22:15 09/12/20 22:14 Morphine Sulfate (Morphine Sulfate) 2 mg Q3H PRN IVP mild pain 08/12/20 23:00 08/19/20 22:59 08/15/20 20:46 Morphine Sulfate (Morphine Sulfate) 4 mg Q3H PRN IVP moderate pain 08/12/20 23:00 08/19/20 22:59 08/12/20 23:07 Multivitamins (Multivitamins) 1 tab DAILY GT 08/11/20 09:00 09/07/20 08:59 08/19/20 10:29 Pantoprazole (Protonix) 40 mg EVERY 12 HOURS IVP 08/13/20 22:15 09/12/20 22:14 08/19/20 10:30 Sodium Bicarbonate 50 ml/ Dextrose/Sodium Chloride 1,050 ml @ 50 mls/hr Q21H IV 08/17/20 16:00 09/16/20 15:59 08/19/20 08:48 Vancomycin HCl (Vanco pharmacy to dose) 1 ea DAILY PRN MISC Per rx protocol 08/16/20 10:00 08/22/20 08:59 Last 24 Hour Vital Signs Date Time Temp Pulse Resp B/P (MAP) Pulse Ox O2 Delivery O2 Flow Rate FiO2 08/19/20 12:00 Mechanical Ventilator 08/19/20 12:00 97.6 66 19 131/74 (93) 100 08/19/20 11:10 65 21 40 08/19/20 08:00 40 08/19/20 08:00 98.0 74 18 108/69 (82) 100 08/19/20 08:00 Mechanical Ventilator 08/19/20 07:10 79 25 40 08/19/20 04:00 Mechanical Ventilator 08/19/20 04:00 98.1 75 19 113/66 (82) 100 08/19/20 04:00 40 08/19/20 03:58 65 08/19/20 02:52 71 18 40 08/19/20 00:00 Mechanical Ventilator 08/19/20 00:00 98.1 56 18 103/48 (66) 100 08/19/20 00:00 40 08/18/20 23:41 60 08/18/20 22:31 56 18 100 Mechanical Ventilator 40 58 18 08/18/20 20:00 Mechanical Ventilator 08/18/20 20:00 40 08/18/20 20:00 98.1 54 18 135/77 (96) 100 08/18/20 19:25 51 08/18/20 19:00 51 18 40 08/18/20 16:00 78 08/18/20 16:00 40 08/18/20 16:00 97.3 64 19 117/58 (77) 99 64 08/18/20 16:00 Mechanical Ventilator 08/18/20 15:20 52 18 40 08/18/20 12:00 52 08/18/20 12:00 Mechanical Ventilator 08/18/20 12:00 40 08/18/20 11:43 97.1 51 17 120/72 (88) 100 51 08/18/20 10:45 53 18 100 Mechanical Ventilator 40 54 18 08/18/20 08:12 97.3 50 18 116/64 (81) 99 50 08/18/20 08:00 Mechanical Ventilator 08/18/20 08:00 40 08/18/20 07:56 50 08/18/20 07:20 56 18 40 08/18/20 04:00 Mechanical Ventilator 08/18/20 04:00 56 08/18/20 04:00 40 08/18/20 04:00 97.8 51 18 128/69 (88) 97 9/18/20 02:44 54 18 40 08/18/20 00:00 97.3 47 18 122/64 (83) 99 08/18/20 00:00 40 08/18/20 00:00 51 08/18/20 00:00 Mechanical Ventilator 08/17/20 22:33 52 18 100 Mechanical Ventilator 40 53 21 08/17/20 20:00 40 08/17/20 20:00 Mechanical Ventilator 08/17/20 20:00 46 08/17/20 20:00 97.5 49 18 117/66 (83) 100 08/17/20 18:48 49 18 40 08/17/20 16:28 97.8 08/17/20 16:00 99.9 50 18 119/64 (82) 99 08/17/20 16:00 40 08/17/20 16:00 Mechanical Ventilator 08/17/20 16:00 60 08/17/20 14:35 60 18 40 Intake and Output 08/18/20 08/19/20 19:00 07:00 Intake Total 1970 ml 1880 ml Output Total 650 ml 900 ml Balance 1320 ml 980 ml Free Water 300 ml 50 ml IV Total 650 ml 1060 ml Tube Feeding 840 ml 770 ml Other 180 ml Output Urine Total 650 ml 900 ml # Bowel Movements 5 3 Labs Test 08/17/20 10:00 08/17/20 14:24 08/17/20 15:40 08/18/20 03:40 White Blood Count 25.4 K/UL (4.8-10.8) 28.0 K/UL (4.8-10.8) Red Blood Count 2.25 M/UL (4.70-6.10) 2.36 M/UL (4.70-6.10) Hemoglobin 7.3 G/DL (14.2-18.0) 7.7 G/DL (14.2-18.0) Hematocrit 21.3 % (42.0-52.0) 22.0 % (42.0-52.0) Mean Corpuscular Volume 95 FL (80-99) 93 FL (80-99) Mean Corpuscular Hemoglobin 32.5 PG (27.0-31.0) 32.5 PG (27.0-31.0) Mean Corpuscular Hemoglobin Concent 34.3 G/DL (32.0-36.0) 34.9 G/DL (32.0-36.0) Red Cell Distribution Width 17.5 % (11.6-14.8) 17.4 % (11.6-14.8) Platelet Count 338 K/UL (150-450) 366 K/UL (150-450) Mean Platelet Volume 8.1 FL (6.5-10.1) 8.6 FL (6.5-10.1) Neutrophils (%) (Auto) % (45.0-75.0) % (45.0-75.0) Lymphocytes (%) (Auto) % (20.0-45.0) % (20.0-45.0) Monocytes (%) (Auto) % (1.0-10.0) % (1.0-10.0) Eosinophils (%) (Auto) % (0.0-3.0) % (0.0-3.0) Basophils (%) (Auto) % (0.0-2.0) % (0.0-2.0) Differential Total Cells Counted 100 100 Neutrophils % (Manual) 83 % (45-75) 84 % (45-75) Lymphocytes % (Manual) 8 % (20-45) 10 % (20-45) Monocytes % (Manual) 7 % (1-10) 4 % (1-10) Eosinophils % (Manual) 1 % (0-3) 2 % (0-3) Basophils % (Manual) 1 % (0-2) 0 % (0-2) Band Neutrophils 0 % (0-8) 0 % (0-8) Platelet Estimate Adequate Adequate Platelet Morphology Normal Normal Hypochromasia 3+ 1+ Anisocytosis 1+ 1+ Spherocytes 1+ Sodium Level 145 MMOL/L (136-145) 146 MMOL/L (136-145) Potassium Level 3.7 MMOL/L (3.5-5.1) 3.6 MMOL/L (3.5-5.1) Chloride Level 114 MMOL/L (98-107) 114 MMOL/L (98-107) Carbon Dioxide Level 22 MMOL/L (21-32) 17 MMOL/L (21-32) Anion Gap 9 mmol/L (5-15) 15 mmol/L (5-15) Blood Urea Nitrogen 21 mg/dL (7-18) 24 mg/dL (7-18) Creatinine 1.3 MG/DL (0.55-1.30) 1.2 MG/DL (0.55-1.30) Estimat Glomerular Filtration Rate > 60 mL/min (>60) > 60 mL/min (>60) Glucose Level 92 MG/DL (74-106) 109 MG/DL (74-106) Calcium Level 8.0 MG/DL (8.5-10.1) 8.1 MG/DL (8.5-10.1) Total Bilirubin 1.1 MG/DL (0.2-1.0) 1.2 MG/DL (0.2-1.0) Direct Bilirubin 0.6 MG/DL (0.0-0.3) 0.5 MG/DL (0.0-0.3) Aspartate Amino Transf (AST/SGOT) 42 U/L (15-37) 57 U/L (15-37) Alanine Aminotransferase (ALT/SGPT) 36 U/L (12-78) 43 U/L (12-78) Alkaline Phosphatase 401 U/L (46-116) 465 U/L (46-116) Total Protein 6.8 G/DL (6.4-8.2) 7.2 G/DL (6.4-8.2) Albumin 1.9 G/DL (3.4-5.0) 2.1 G/DL (3.4-5.0) Globulin 4.9 g/dL 5.1 g/dL Albumin/Globulin Ratio 0.4 (1.0-2.7) 0.4 (1.0-2.7) HIV (1&2) Antibody Rapid Negative (NEGATIVE) Arterial Blood pH 7.484 (7.350-7.450) Arterial Blood Partial Pressure CO2 23.2 mmHg (35.0-45.0) Arterial Blood Partial Pressure O2 55.3 mmHg (75.0-100.0) Arterial Blood HCO3 17.0 mmol/L (22.0-26.0) Arterial Blood Oxygen Saturation 86.8 % (95-100) Arterial Blood Base Excess -5.6 (-2-2) Iglesia Test Positive Lactic Acid Level 1.00 mmol/L (0.4-2.0) Nucleated Red Blood Cells 1 /100 WBC Random Vancomycin Level 13.8 ug/mL Test 08/19/20 04:30 White Blood Count 31.0 K/UL (4.8-10.8) Red Blood Count 2.29 M/UL (4.70-6.10) Hemoglobin 7.1 G/DL (14.2-18.0) Hematocrit 21.8 % (42.0-52.0) Mean Corpuscular Volume 95 FL (80-99) Mean Corpuscular Hemoglobin 31.1 PG (27.0-31.0) Mean Corpuscular Hemoglobin Concent 32.7 G/DL (32.0-36.0) Red Cell Distribution Width 16.9 % (11.6-14.8) Platelet Count 388 K/UL (150-450) Mean Platelet Volume 8.2 FL (6.5-10.1) Neutrophils (%) (Auto) % (45.0-75.0) Lymphocytes (%) (Auto) % (20.0-45.0) Monocytes (%) (Auto) % (1.0-10.0) Eosinophils (%) (Auto) % (0.0-3.0) Basophils (%) (Auto) % (0.0-2.0) Differential Total Cells Counted 100 Neutrophils % (Manual) 83 % (45-75) Lymphocytes % (Manual) 10 % (20-45) Monocytes % (Manual) 5 % (1-10) Eosinophils % (Manual) 2 % (0-3) Basophils % (Manual) 0 % (0-2) Band Neutrophils 0 % (0-8) Platelet Estimate Adequate Platelet Morphology Normal Anisocytosis 1+ Sodium Level 146 MMOL/L (136-145) Potassium Level 3.7 MMOL/L (3.5-5.1) Chloride Level 114 MMOL/L (98-107) Carbon Dioxide Level 21 MMOL/L (21-32) Anion Gap 11 mmol/L (5-15) Blood Urea Nitrogen 25 mg/dL (7-18) Creatinine 1.1 MG/DL (0.55-1.30) Estimat Glomerular Filtration Rate > 60 mL/min (>60) Glucose Level 94 MG/DL (74-106) Calcium Level 8.0 MG/DL (8.5-10.1) Total Bilirubin 1.1 MG/DL (0.2-1.0) Direct Bilirubin 0.5 MG/DL (0.0-0.3) Aspartate Amino Transf (AST/SGOT) 65 U/L (15-37) Alanine Aminotransferase (ALT/SGPT) 54 U/L (12-78) Alkaline Phosphatase 491 U/L (46-116) Total Protein 7.2 G/DL (6.4-8.2) Albumin 2.0 G/DL (3.4-5.0) Globulin 5.2 g/dL Albumin/Globulin Ratio 0.4 (1.0-2.7) Random Vancomycin Level 15.7 ug/mL Height (Feet): 5 Height (Inches): 10.00 Weight (Pounds): 112 Objective Physical Exam General: alert, Chronically Ill Head: other - Large right-sided craniotomy defect well[place] ++, tracheotomy/vent Respiratory: crackles, rales, other - right side chest wall tenderness Cardiovascular: tachycardia Gastrointestinal: normal inspection, soft, gt++ Musk: decreased range of motion, other - atrophic, motor weakness Neurologic: alert, motor weakness, other - left hemineglect Psychiatric: normal inspection Skin: no rash : garcia++ Roshan Castillo MD Aug 19, 2020 13:50
--- NOTE | 2020-08-19 15:04 | Surgery Progress Note ---
Surgery Progress Note Subjective Additional Comments afebrile HD stable labs okay no n/v Objective Last 24 Hour Vital Signs Date Time Temp Pulse Resp B/P (MAP) Pulse Ox O2 Delivery O2 Flow Rate FiO2 08/19/20 12:00 Mechanical Ventilator 08/19/20 12:00 97.6 66 19 131/74 (93) 100 08/19/20 12:00 40 08/19/20 12:00 66 08/19/20 11:10 65 21 40 08/19/20 08:00 40 08/19/20 08:00 98.0 74 18 108/69 (82) 100 08/19/20 08:00 74 08/19/20 08:00 Mechanical Ventilator 08/19/20 07:10 79 25 40 08/19/20 04:00 Mechanical Ventilator 08/19/20 04:00 98.1 75 19 113/66 (82) 100 08/19/20 04:00 40 08/19/20 03:58 65 08/19/20 02:52 71 18 40 08/19/20 00:00 Mechanical Ventilator 08/19/20 00:00 98.1 56 18 103/48 (66) 100 08/19/20 00:00 40 08/18/20 23:41 60 08/18/20 22:31 56 18 100 Mechanical Ventilator 40 58 18 08/18/20 20:00 Mechanical Ventilator 08/18/20 20:00 40 08/18/20 20:00 98.1 54 18 135/77 (96) 100 08/18/20 19:25 51 08/18/20 19:00 51 18 40 08/18/20 16:00 78 08/18/20 16:00 40 08/18/20 16:00 97.3 64 19 117/58 (77) 99 64 08/18/20 16:00 Mechanical Ventilator 08/18/20 15:20 52 18 40 I&O Intake and Output 08/18/20 08/19/20 19:00 07:00 Intake Total 1970 ml 1880 ml Output Total 650 ml 900 ml Balance 1320 ml 980 ml Free Water 300 ml 50 ml IV Total 650 ml 1060 ml Tube Feeding 840 ml 770 ml Other 180 ml Output Urine Total 650 ml 900 ml # Bowel Movements 5 3 Dressing: other Wound: other Cardiovascular: RSR Respiratory: decreased breath sounds Abdomen: soft, non-tender, present bowel sounds Extremities: no cyanosis Laboratory Tests Test 08/19/20 04:30 White Blood Count 31.0 K/UL (4.8-10.8) *H Red Blood Count 2.29 M/UL (4.70-6.10) L Hemoglobin 7.1 G/DL (14.2-18.0) L Hematocrit 21.8 % (42.0-52.0) L Mean Corpuscular Volume 95 FL (80-99) Mean Corpuscular Hemoglobin 31.1 PG (27.0-31.0) H Mean Corpuscular Hemoglobin Concent 32.7 G/DL (32.0-36.0) Red Cell Distribution Width 16.9 % (11.6-14.8) H Platelet Count 388 K/UL (150-450) Mean Platelet Volume 8.2 FL (6.5-10.1) Neutrophils (%) (Auto) % (45.0-75.0) Lymphocytes (%) (Auto) % (20.0-45.0) Monocytes (%) (Auto) % (1.0-10.0) Eosinophils (%) (Auto) % (0.0-3.0) Basophils (%) (Auto) % (0.0-2.0) Differential Total Cells Counted 100 Neutrophils % (Manual) 83 % (45-75) H Lymphocytes % (Manual) 10 % (20-45) L Monocytes % (Manual) 5 % (1-10) Eosinophils % (Manual) 2 % (0-3) Basophils % (Manual) 0 % (0-2) Band Neutrophils 0 % (0-8) Platelet Estimate Adequate Platelet Morphology Normal Anisocytosis 1+ Sodium Level 146 MMOL/L (136-145) H Potassium Level 3.7 MMOL/L (3.5-5.1) Chloride Level 114 MMOL/L (98-107) H Carbon Dioxide Level 21 MMOL/L (21-32) Anion Gap 11 mmol/L (5-15) Blood Urea Nitrogen 25 mg/dL (7-18) H Creatinine 1.1 MG/DL (0.55-1.30) Estimat Glomerular Filtration Rate > 60 mL/min (>60) Glucose Level 94 MG/DL (74-106) Calcium Level 8.0 MG/DL (8.5-10.1) L Total Bilirubin 1.1 MG/DL (0.2-1.0) H Direct Bilirubin 0.5 MG/DL (0.0-0.3) H Aspartate Amino Transf (AST/SGOT) 65 U/L (15-37) H Alanine Aminotransferase (ALT/SGPT) 54 U/L (12-78) Alkaline Phosphatase 491 U/L (46-116) H Total Protein 7.2 G/DL (6.4-8.2) Albumin 2.0 G/DL (3.4-5.0) L Globulin 5.2 g/dL Albumin/Globulin Ratio 0.4 (1.0-2.7) L Random Vancomycin Level 15.7 ug/mL Plan Problems: (1) Pneumonia (2) Sickle cell anemia (3) Tachycardia (4) Severe sepsis (5) Sickle cell crisis (6) Sepsis Assessment & Plan: 35-year-old male sickle cell multiple comorbidities history of craniotomy trach feeding tube prior port infected removed see prior admission and consult and operative notes. Currently presents with significant leukocytosis fevers hypotension in intensive care unit wound site evaluated unlikely etiology. Trach evaluated may consider changing. LFTs noted elevated. Ultrasound ordered pending results trend labs continue IV antibiotics appreciate infectious disease input will follow with recommendations thank you for let me participate in patient's care KUB and US noted labs reviewed transfuse prbc prn trach change peg changed line out picc placed pulmonary arteries: Evaluation for pulmonary embolus is limited due to breathing motion artifact. No central pulmonary emboli are identified. Aorta: No acute findings. No thoracic aortic aneurysm. Lungs: There are moderately consolidating infiltrates identified in both lower lobes dependently with mild additional patchy infiltrates dependently in both upper lobes. The findings are consistent with bilateral nonspecific pneumonia. Aspiration pneumonia could give this appearance. The infiltrates are only somewhat typical of Covid 19. Confidence is immediate. Pleural space: Unremarkable. No significant effusion. No pneumothorax. Heart: Unremarkable. No cardiomegaly. No significant pericardial effusion. No evidence of RV dysfunction. Bones/joints: No acute fracture. No dislocation. Soft tissues: Unremarkable. Lymph nodes: Unremarkable. No enlarged lymph nodes. Tubes, lines and devices: There is a tracheostomy tube in good position. IMPRESSION: 1. There are moderately consolidating infiltrates identified in both lower lobes dependently with mild additional patchy infiltrates dependently in both upper lobes. The findings are consistent with bilateral nonspecific pneumonia. Aspiration pneumonia could give this appearance. The infiltrates are only somewhat typical of Covid 19. Confidence is immediate. 2. Evaluation for pulmonary embolus is limited due to breathing motion artifact. No central pulmonary emboli are identified. The liver is homogeneous. We cannot identify a normal spleen. There is dense crescentic calcification in the left upper quadrant at the expected location of the spleen. Gallbladder is absent. The pancreas is unremarkable. Adrenals are normal in morphology. There is a small punctate cortical calcification left kidney. No hydronephrosis bilaterally There is a G-tube in place. Gas-filled bowel loops identified throughout the abdomen and pelvis. No discrete transition point or obstruction. Appendix partially visualized. There is some free fluid in the pelvis. There is no free air. There is a mildly prominent lymph nodes noted in the upper to mid retroperitoneum noted of undetermined etiology or significance. Rivera catheter noted in the bladder. The reservoir for the penile prosthesis is identified in the left lower pelvis. There is a right femoral venous catheter in place. Diffuse sclerosis of the bony pelvis and hips noted of undetermined etiology. IMPRESSION: BILATERAL LOWER LOBE PNEUMONIAS. ALSO SOME HAZY INFILTRATES IN THE UPPER LOBES. A NORMAL SPLEEN IS NOT VISUALIZED. THERE IS A DENSE CRESCENTIC CALCIFICATION LEFT UPPER QUADRANT AT THE EXPECTED LOCATION OF THE SPLEEN. 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 PUNCTATE CORTICAL CALCIFICATION LEFT KIDNEY. NO HYDRONEPHROSIS. PROMINENT LYMPH NODES IN THE UPPER TO MID RETROPERITONEUM OF UNDETERMINED ETIOLOGY OR SIGNIFICANCE. G-TUBE, RIVERA CATHETER, RIGHT FEMORAL CATHETER AND PENILE PROSTHESIS NOTED IN PLACE. MILD DIFFUSE SCLEROSIS OF THE BONY PELVIS AND BOTH HIPS OF UNDETERMINED ETIOLOGY. QUESTION HISTORY OF RENAL OSTEODYSTROPHY. There is a large craniectomy defect in the right frontal temporal region. Diffuse age-related volume loss demonstrated. 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 No definite acute infarct seen. There is no hemorrhage, mass effect or shift. Ventricles and cisterns as well as brainstem and posterior fossa appear unremarkable. The sellar region is normal. Sinuses, mastoid air cells and bony calvarium appear intact. IMPRESSION: Large right frontotemporal craniectomy defect. 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 No definite acute intracranial abnormality. (7) Port-A-Cath in place Assessment & Plan: prior removal for infection site okay dressings changed no active infection from wound picc Benyamini,Harman Aug 19, 2020 15:04
[2020-08-19 16:00] VITALS: BP 137/78
--- NOTE | 2020-08-19 18:59 | NUR ---
HAND-OFF: Report given to Jesus STODDARD.
--- NOTE | 2020-08-19 19:17 | NUR ---
RESPIRATORY NOTE: Received pt on AC PC 18, PIP 45, 40%, no PEEP. Pt is trach-dependent w/ a cuffed, Shiely 6 tube. Pt is alert/awake, follows commands. B/S carlos. rhonchi, sxn small amounts of thick/thin, white to pale-yellow secretions. Vent plugged into red outlet, ambubag at bedside. Pt resting comfortably, in no apparent distress at this time. Will continue plan of care.
--- NOTE | 2020-08-19 19:40 | NUR ---
NURSE NOTES: Received report from ARLYN Becerra, pt. in bed awake- appears to be alert x's 1 to name- no signs or symptoms of acute cardiac or respiratory distress noted, pt. appears to be tolerating current vent settings as ordered by - AC 12, TV 500, Fio2 at 40% and peep 5- no distress noted, G tube running Vital AF 1.2 at 70cc/hr- no residual noted, side rails padded for seizure precautions- no seizure activity noted upon assessment, Overton intact and draining to gravity, SHER picc running D5 1/2 NS +50 bicarb at 50cc/hr, safety measures continued, all needs attended too, will continue with plan of care. Addendum: 08/19/20 at 1948 by ANGELLA ALBARADO RN RN rectal tube intact and draining to gravity.
[2020-08-19 20:00] VITALS: BP 126/68
[2020-08-19] MEDS: Dyna-Hex 2% Top Sol 2oz TOPIC SCH (21:14)
[2020-08-19] MEDS: Acetaminophen 650mg/20.3ml GT PRN (21:48)
--- NOTE | 2020-08-19 22:30 | NUR ---
NURSE NOTES: bed bath given- oral care provided, repositioned and turned pt.- pt. appears to be tolerating current vent settings- no distress noted, all needs attended to- will continue to monitor pt. and with plan of care.
[2020-08-20] VITALS: BP 118/66
--- NOTE | 2020-08-20 01:17 | NUR ---
NURSE NOTES: during bedside rounding noted pt. had cell phone on- pt. appear to be more responsive- by nodding head to questions being asked. will continue to monitor pt. and with plan of care.
[2020-08-20] MEDS: Sodium Bicarbonate 50 ML in D5 1/2NS 1,000 ML IV SCH (03:13)
[2020-08-20 04:00] VITALS: BP 111/62
[2020-08-20 06:23] LABS: HEMATOCRIT 20.3 % (42.0-52.0); MEAN CORPUSCULAR VOLUME 96 FL (80-99); PLATELET COUNT 403 K/UL (150-450); RED BLOOD COUNT 2.12 M/UL (4.70-6.10); RED CELL DISTRIBUTION WIDTH 16.6 % (11.6-14.8)
[2020-08-20 06:27] LABS: WHITE BLOOD COUNT 29.7 K/UL (4.8-10.8)
[2020-08-20 06:28] LABS: HEMOGLOBIN 6.7 G/DL (14.2-18.0)
--- NOTE | 2020-08-20 06:39 | NUR ---
NURSE NOTES: left message for DR. daniels at his exchange spoke with Cat, regarding critical lab HGB trending down now 6.7- awaiting for call back from doctor. Addendum: 08/20/20 at 0643 by ANGELLA ALBARADO RN RN direct line called given by exchange- left message for physician awaiting for call back.
--- NOTE | 2020-08-20 07:00 | NUR ---
NURSE NOTES: received patient report from salma blackwell. patient is on bed awake. vented, on prescribed rate. hgb level 6.7, noc nurse left message to dr luz, awaiting callback and new order. on I Do Now I Don'tube running.sound care per order. will follow plan of care.
[2020-08-20 07:06] LABS: ALANINE AMINOTRANSFERASE 93 U/L (12-78); ALBUMIN/GLOBULIN RATIO 0.4 (1.0-2.7); ALKALINE PHOSPHATASE 547 U/L (46-116); ANION GAP 7 mmol/L (5-15); ASPARTATE AMINO TRANSFERASE 118 U/L (15-37); BLOOD UREA NITROGEN 28 mg/dL (7-18); CALCIUM 8.6 MG/DL (8.5-10.1); CARBON DIOXIDE 23 MMOL/L (21-32); CHLORIDE 115 MMOL/L (98-107); POTASSIUM 3.9 MMOL/L (3.5-5.1); SODIUM 144 MMOL/L (136-145)
--- NOTE | 2020-08-20 07:13 | NUR ---
NURSE HAND-OFF REPORT: Important Events on Shift:none Patient Status: stable Diet: Vital AF 1.2 Pending Orders: Pending Results/Labs: Pending MD notification: Latest Vital Signs: Temperature 97.0 , Pulse 61 , B/P 111 /62 , Respiratory Rate 20 , O2 SAT 100 , Mechanical Ventilator, O2 Flow Rate . Vital Sign Comment: EKG Rhythm: Sinus Rhythm Rhythm change?: N MD Notified?: N - MD Response: Latest Stevens Fall Score: 50 Fall Risk: High Risk Safety Measures: Call light Within Reach, Bed Alarm Zone 1, Side Rails Side Rails x3, Bed position Low and Locked. Fall Precautions: Yellow Socks Yellow Gown Door Sign Patient Fall Education Report given to Rebecca Avalos, pt. remains stable and no signs if distress noted- aware to f/u on any abnormal am labs. Aware message left for dr. daniels regarding critical lab HGB trending down.
--- NOTE | 2020-08-20 07:15 | NUR ---
NURSE NOTES: lab for CMV PCR Serum draw for red top tube- and sent to lab with Mrs. COLUNGA- per lab to draw red top tube.
--- NOTE | 2020-08-20 07:21 | NUR ---
NURSE HAND-OFF REPORT: Important Events on Shift: fever- but resolved Tylenol and cooling measures Patient Status: stable Diet: vital Af 1.2 Pending Orders: Pending Results/Labs: Pending MD notification: Latest Vital Signs: Temperature 97.0 , Pulse 61 , B/P 111 /62 , Respiratory Rate 20 , O2 SAT 100 , Mechanical Ventilator, O2 Flow Rate . Vital Sign Comment: EKG Rhythm: Sinus Rhythm to SB- now SR Rhythm change?: N Notified?: N Response: Latest Stevens Fall Score: 50 Fall Risk: High Risk Safety Measures: Call light Within Reach, Bed Alarm Zone 1, Side Rails Side Rails x3, Bed position Low and Locked. Fall Precautions: Yellow Socks Yellow Gown Door Sign Patient Fall Education Report given to Rebecca Rn, pt. remains stable and no signs if distress noted- aware to f/u on any abnormal am labs and HGB trending down - message left with DR. Castillo.
[2020-08-20 07:42] VITALS: BP 138/75
--- NOTE | 2020-08-20 08:05 | General Progress Note ---
Subjective ROS Limited/Unobtainable: Yes Constitutional: Reports: malaise, weakness HEENT: Reports: no symptoms Cardiovascular: Reports: no symptoms Respiratory: Reports: SOB with excertion Gastrointestinal/Abdominal: Reports: difficulty swallowing Neurologic/Psychiatric: Reports: no symptoms Endocrine: Reports: no symptoms Hematologic/Lymphatic: Reports: no symptoms Allergies: Coded Allergies: ADHESIVE TAPE (Verified Allergy, Unknown, 07/20/20) Uncoded Allergies: TAPE (Allergy, Unknown, 08/07/20) All Systems: reviewed and negative except above Subjective no change. awake but nonverbal. does not follow commands. no fevers or chills. just stares. does not follow commands. remains on iv abx. wbc remains elevated 30K. on the vent. Objective Last 24 Hour Vital Signs Date Time Temp Pulse Resp B/P (MAP) Pulse Ox O2 Delivery O2 Flow Rate FiO2 08/20/20 07:42 98.1 80 18 138/75 (96) 100 08/20/20 07:08 84 18 40 08/20/20 04:00 61 08/20/20 04:00 40 08/20/20 04:00 97.0 61 20 111/62 (78) 100 08/20/20 04:00 Mechanical Ventilator 08/20/20 03:15 56 18 40 08/20/20 00:00 40 08/20/20 00:00 97.6 54 18 118/66 (83) 100 08/20/20 00:00 Mechanical Ventilator 08/19/20 23:33 55 08/19/20 22:52 63 21 100 Mechanical Ventilator 40 08/19/20 22:37 61 18 Mechanical Ventilator 40 40 08/19/20 22:18 98.5 08/19/20 20:00 99.7 78 20 126/68 (87) 100 08/19/20 20:00 Mechanical Ventilator 08/19/20 20:00 40 08/19/20 19:32 79 08/19/20 19:12 75 25 40 08/19/20 16:00 97.5 68 20 137/78 (97) 100 08/19/20 16:00 Mechanical Ventilator 08/19/20 16:00 80 08/19/20 16:00 40 08/19/20 15:00 86 24 40 08/19/20 12:00 Mechanical Ventilator 08/19/20 12:00 97.6 66 19 131/74 (93) 100 08/19/20 12:00 40 08/19/20 12:00 66 08/19/20 11:10 65 21 40 Intake and Output 08/19/20 08/20/20 19:00 07:00 Intake Total 950 ml 1988 ml Output Total 3625 ml Balance 950 ml -1637 ml Free Water 60 ml 50 ml IV Total 50 ml 1098 ml Tube Feeding 840 ml 840 ml Output Urine Total 3175 ml Stool Total 450 ml # Bowel Movements 3 3 Laboratory Tests 08/20/20 05:00: White Blood Count 29.7*H, Red Blood Count 2.12L, Hemoglobin 6.7*L, Hematocrit 20.3L, Mean Corpuscular Volume 96, Mean Corpuscular Hemoglobin 31.8H, Mean Corpuscular Hemoglobin Concent 33.1, Red Cell Distribution Width 16.6H, Platelet Count 403, Mean Platelet Volume 8.5, Neutrophils (%) (Auto) , Lymphocytes (%) (Auto) , Monocytes (%) (Auto) , Eosinophils (%) (Auto) , Basophils (%) (Auto) , Neutrophils % (Manual) [Pending], Lymphocytes % (Manual) [Pending], Platelet Estimate [Pending], Platelet Morphology [Pending], Sodium Level 144, Potassium Level 3.9, Chloride Level 115H, Carbon Dioxide Level 23, Anion Gap 7, Blood Urea Nitrogen 28H, Creatinine 1.0, Estimat Glomerular Filtration Rate > 60, Glucose Level 116H, Calcium Level 8.6, Total Bilirubin 1.0, Aspartate Amino Transf (AST/SGOT) 118H, Alanine Aminotransferase (ALT/SGPT) 93H, Alkaline Phosphatase 547H, Total Protein 7.0, Albumin 2.0L, Globulin 5.0, Albumin/Globulin Ratio 0.4L Height (Feet): 5 Height (Inches): 10.00 Weight (Pounds): 112 Objective General Appearance: WD/WN, lethargic EENT: normal ENT inspection Neck: normal alignment Cardiovascular: normal peripheral pulses, normal rate Respiratory/Chest: chest wall non-tender, lungs clear, normal breath sounds Abdomen: normal bowel sounds, non tender, soft, no organomegaly Edema: no edema noted Arm (L), no edema noted Arm (R) Neurologic: unresponsive Assessment/Plan Problem List: (1) Pneumonia ICD Codes: J18.9 - Pneumonia, unspecified organism SNOMED: 579215933 Qualifiers: Qualified Codes: J18.9 - Pneumonia, unspecified organism (2) Sickle cell anemia ICD Codes: D57.1 - Sickle-cell disease without crisis SNOMED: 850194868 Qualifiers: Qualified Codes: D57.00 - Hb-SS disease with crisis, unspecified (3) Severe sepsis ICD Codes: A41.9 - Sepsis, unspecified organism; R65.20 - Severe sepsis without septic shock SNOMED: 46600679 Status: stable, not improved Assessment/Plan: neuro eval check ammonia level cont vent support resp care gt feeds iv abx per ID follow up albs monitor h/h transfuse as needed PPI rx eeg- no szs keppra decreased to dauly(pts prior dose) Lalo Celaya MD Aug 20, 2020 08:05
--- NOTE | 2020-08-20 08:30 | NUR ---
NURSE NOTES: dr luz made aware that patients hgb level is 6.7, per Dr Luz "its Ok". No blood transfusion ordered, will continue to care.
--- NOTE | 2020-08-20 08:49 | Pulmonology Progress Note ---
Subjective ROS Limited/Unobtainable: No Constitutional: Denies: fever Musculoskeletal: Denies: pain Allergies: Coded Allergies: ADHESIVE TAPE (Verified Allergy, Unknown, 07/20/20) Uncoded Allergies: TAPE (Allergy, Unknown, 08/07/20) All Systems: reviewed and negative except above Objective Last 24 Hour Vital Signs Date Time Temp Pulse Resp B/P (MAP) Pulse Ox O2 Delivery O2 Flow Rate FiO2 08/20/20 07:42 98.1 80 18 138/75 (96) 100 08/20/20 07:08 84 18 40 08/20/20 04:00 61 08/20/20 04:00 40 08/20/20 04:00 97.0 61 20 111/62 (78) 100 08/20/20 04:00 Mechanical Ventilator 08/20/20 03:15 56 18 40 08/20/20 00:00 40 08/20/20 00:00 97.6 54 18 118/66 (83) 100 08/20/20 00:00 Mechanical Ventilator 08/19/20 23:33 55 08/19/20 22:52 63 21 100 Mechanical Ventilator 40 08/19/20 22:37 61 18 Mechanical Ventilator 40 40 08/19/20 22:18 98.5 08/19/20 20:00 99.7 78 20 126/68 (87) 100 08/19/20 20:00 Mechanical Ventilator 08/19/20 20:00 40 08/19/20 19:32 79 08/19/20 19:12 75 25 40 08/19/20 16:00 97.5 68 20 137/78 (97) 100 08/19/20 16:00 Mechanical Ventilator 08/19/20 16:00 80 08/19/20 16:00 40 08/19/20 15:00 86 24 40 08/19/20 12:00 Mechanical Ventilator 08/19/20 12:00 97.6 66 19 131/74 (93) 100 08/19/20 12:00 40 08/19/20 12:00 66 08/19/20 11:10 65 21 40 Intake and Output 08/19/20 08/20/20 19:00 07:00 Intake Total 950 ml 1988 ml Output Total 3625 ml Balance 950 ml -1637 ml Free Water 60 ml 50 ml IV Total 50 ml 1098 ml Tube Feeding 840 ml 840 ml Output Urine Total 3175 ml Stool Total 450 ml # Bowel Movements 3 3 Laboratory Tests 08/20/20 05:00: White Blood Count 29.7*H, Red Blood Count 2.12L, Hemoglobin 6.7*L, Hematocrit 20.3L, Mean Corpuscular Volume 96, Mean Corpuscular Hemoglobin 31.8H, Mean Corpuscular Hemoglobin Concent 33.1, Red Cell Distribution Width 16.6H, Platelet Count 403, Mean Platelet Volume 8.5, Neutrophils (%) (Auto) , Lymphocytes (%) (Auto) , Monocytes (%) (Auto) , Eosinophils (%) (Auto) , Basophils (%) (Auto) , Differential Total Cells Counted 100, Neutrophils % (Manual) 68, Lymphocytes % (Manual) 13L, Monocytes % (Manual) 11H, Eosinophils % (Manual) 8H, Basophils % (Manual) 0, Band Neutrophils 0, Platelet Estimate Adequate, Platelet Morphology Normal, Hypochromasia 2+, Anisocytosis 1+, Sodium Level 144, Potassium Level 3.9, Chloride Level 115H, Carbon Dioxide Level 23, Anion Gap 7, Blood Urea Nitrogen 28H, Creatinine 1.0, Estimat Glomerular Filtration Rate > 60, Glucose Level 116H, Calcium Level 8.6, Total Bilirubin 1.0, Aspartate Amino Transf (AST/SGOT) 118H, Alanine Aminotransferase (ALT/SGPT) 93H, Alkaline Phosphatase 547H, Total Protein 7.0, Albumin 2.0L, Globulin 5.0, Albumin/Globulin Ratio 0.4L Current Medications Medications (Trade) Dose Ordered Sig/Piedad Route PRN Reason Start Time Stop Time Status Last Admin Dose Admin Acetaminophen (Tylenol) 650 mg Q6H PRN GT Temp >100.5 08/10/20 20:20 09/09/20 20:19 08/19/20 21:48 Cefepime HCl 2 gm/ Dextrose 55 ml @ 110 mls/hr EVERY 12 HOURS IVPB 08/14/20 13:00 08/21/20 12:59 08/19/20 21:18 Chlorhexidine Gluconate (Christy-Hex 2%) 1 applic DAILY@1999 TOPIC 08/14/20 20:00 11/12/20 19:59 08/19/20 21:14 Colistimethate Sodium (Colistin *inhalation use only*) 75 mg Q12HR@10,22 INH 9/13/20 22:00 08/20/20 21:59 08/19/20 22:37 Famotidine (Pepcid) 20 mg DAILY GT 08/11/20 09:00 11/06/20 08:59 08/19/20 10:29 Folic Acid (Folate) 1 mg DAILY GT 08/11/20 09:00 09/07/20 08:59 08/19/20 09:00 Heparin Sodium (Porcine) (Heparin 5000 units/ml) 5,000 units EVERY 12 HOURS SUBQ 08/10/20 21:00 09/22/20 20:59 08/19/20 10:36 Levetiracetam 100 ml @ 400 mls/hr Q12HR IVPB 08/14/20 10:00 11/12/20 09:59 08/19/20 21:14 Metoclopramide HCl (Reglan) 5 mg Q6H PRN IVP Nausea & Vomiting 08/13/20 22:15 09/12/20 22:14 Multivitamins (Multivitamins) 1 tab DAILY GT 08/11/20 09:00 09/07/20 08:59 08/19/20 10:29 Pantoprazole (Protonix) 40 mg EVERY 12 HOURS IVP 08/13/20 22:15 09/12/20 22:14 08/19/20 21:14 Sodium Bicarbonate 50 ml/ Dextrose/Sodium Chloride 1,050 ml @ 50 mls/hr Q21H IV 08/17/20 16:00 09/16/20 15:59 08/20/20 03:13 [facility] 1 ea DAILY PRN MISC Per rx protocol 08/16/20 10:00 08/22/20 08:59 Assessment/Plan Assessment/Plan Pulmonary Progress Note Assessment/Plan History of MRSA sepsis probably due to infected Port-A-Cath - status post removal Sickle cell crisis - Hematology following Sickle cell anemia Chronic respiratory failure, ventilator dependent, with tracheostomy status Transaminitis Seizure disorder acute pneumonia, MRSA/Psaerug leukocytosis recurrent sepsis PLAN care noted IV antibiotics per ID respiratory care Ventilatory support- pressure control; as is volumes adequate sedation as needed SNF meds supportive care suction no wean planned TFN PRN per Hematology oxygen therapy and titrate prognosis guarded ID follow up and recommendations medications/laboratory data/nursing notes reviewed in detail note reviewed and edited care discussed with RN and RT Subjective Interval Events: stable overnight care noted labs still not improved ROS Limited/Unobtainable: Yes Condition: stable Objective Vital Signs Noted Objective: WDWN NAD reduced breath sounds bilaterally without rhonchi or wheeze [id number] without MRG NABS nontender GT no CCE reduced LOC Benson Holden MD Aug 20, 2020 08:49
[2020-08-20] MEDS: Cefepime HCl 2 GM in D5W 55 ML IVPB SCH ×2 (08:54→20:58)
[2020-08-20] MEDS: Heparin 5000 units/ml inj SUBQ SCH ×2 (09:00→20:59)
[2020-08-20] MEDS: Pantoprazole Inj IVP SCH ×2 (09:02→20:59)
[2020-08-20] MEDS: levETIRAcetam 1,000mg/NS100ml 100 ML IVPB SCH ×2 (09:04→20:59)
[2020-08-20] MEDS: Colistin for inhalation INH SCH (10:50)
--- NOTE | 2020-08-20 11:24 | Hematology/Onc Progress Note ---
Assessment/Plan Assessment/Plan Assessment and Recs # Sickle cell crisis noted upon admission, with hx of sickle cell anemia --> hgb 6.5-->7.1-->6.6->>>>7.3-->7.1 -->6.7 --> 1 unit prbc on 07/23 --> ivfs have been started --> anemia panel ordered, with elev ferritin --> recommend to consider hydrea when discharged if stable --> likely does have mild hemolysis --> hgb electrophoresis show evidence of sickle cell trait # Hyperferritinemia with elevated ferritin that was noted --> likely consider exjade once discharged though at this time not limiting --> ferritin can >2000 with recurrent transfusions --> trend over time, for EOD observe # Leukocytosis poa with Severe sepsis due to line infection --> abx: vancomycin-->cefepime/colistin --> wbc 25-->31 # Respiratory failure s/p Ventilator dependent --> as per pulm, vent adjustment # Port-A-Cath in place --> s/p abx --> s/p permacath removal # Transaminitis -->liver function elevated --> per gi # Dt ppx heparin sq The timing of this note does not necessarily reflect the time of the patient was seen. Greatly appreciate consultation. Subjective Allergies: Coded Allergies: ADHESIVE TAPE (Verified Allergy, Unknown, 07/20/20) Uncoded Allergies: TAPE (Allergy, Unknown, 08/07/20) All Systems: reviewed and negative except above Subjective 08/19 no acute events, vent, iv abx, labs reviewed 08/20 labs reviewed, seen by Dr. Celaya and mychal Rn, holding off prbc Objective Objective Current Medications Medications (Trade) Dose Ordered Sig/Piedad Route PRN Reason Start Time Stop Time Status Last Admin Dose Admin Acetaminophen (Tylenol) 650 mg Q6H PRN GT Temp >100.5 08/10/20 20:20 09/09/20 20:19 08/19/20 21:48 Cefepime HCl 2 gm/ Dextrose 55 ml @ 110 mls/hr EVERY 12 HOURS IVPB 08/14/20 13:00 08/21/20 12:59 08/20/20 08:54 Chlorhexidine Gluconate (Christy-Hex 2%) 1 applic DAILY@1999 TOPIC 08/14/20 20:00 11/12/20 19:59 08/19/20 21:14 Colistimethate Sodium (Colistin *inhalation use only*) 75 mg Q12HR@, INH 08/13/20 22:00 08/20/20 21:59 08/20/20 10:50 Famotidine (Pepcid) 20 mg DAILY GT 08/11/20 09:00 11/06/20 08:59 08/20/20 08:54 Folic Acid (Folate) 1 mg DAILY GT 08/11/20 09:00 09/07/20 08:59 08/20/20 09:02 Heparin Sodium (Porcine) (Heparin 5000 units/ml) 5,000 units EVERY 12 HOURS SUBQ 08/10/20 21:00 09/22/20 20:59 08/19/20 10:36 Levetiracetam 100 ml @ 400 mls/hr Q12HR IVPB 08/14/20 10:00 11/12/20 09:59 08/20/20 09:04 Metoclopramide HCl (Reglan) 5 mg Q6H PRN IVP Nausea & Vomiting 08/13/20 22:15 09/12/20 22:14 Multivitamins (Multivitamins) 1 tab DAILY GT 08/11/20 09:00 09/07/20 08:59 08/20/20 08:54 Pantoprazole (Protonix) 40 mg EVERY 12 HOURS IVP 08/13/20 22:15 09/12/20 22:14 08/20/20 09:02 Sodium Bicarbonate 50 ml/ Dextrose/Sodium Chloride 1,050 ml @ 50 mls/hr Q21H IV 08/17/20 16:00 09/16/20 15:59 08/20/20 03:13 Vancomycin HCl (Vanco pharmacy to dose) 1 ea DAILY PRN MISC Per rx protocol 08/16/20 10:00 08/22/20 08:59 Last 24 Hour Vital Signs Date Time Temp Pulse Resp B/P (MAP) Pulse Ox O2 Delivery O2 Flow Rate FiO2 08/20/20 11:05 80 23 100 Mechanical Ventilator 40 82 24 40 08/20/20 09:00 40 08/20/20 08:00 Mechanical Ventilator 08/20/20 07:51 76 08/20/20 07:42 98.1 80 18 138/75 (96) 100 08/20/20 07:08 84 18 40 08/20/20 04:00 61 08/20/20 04:00 40 08/20/20 04:00 97.0 61 20 111/62 (78) 100 08/20/20 04:00 Mechanical Ventilator 08/20/20 03:15 56 18 40 08/20/20 00:00 40 08/20/20 00:00 97.6 54 18 118/66 (83) 100 08/20/20 00:00 Mechanical Ventilator 08/19/20 23:33 55 08/19/20 22:52 63 21 100 Mechanical Ventilator 40 08/19/20 22:37 61 18 Mechanical Ventilator 40 40 08/19/20 22:18 98.5 08/19/20 20:00 99.7 78 20 126/68 (87) 100 08/19/20 20:00 Mechanical Ventilator 08/19/20 20:00 40 08/19/20 19:32 79 08/19/20 19:12 75 25 40 08/19/20 16:00 97.5 68 20 137/78 (97) 100 08/19/20 16:00 Mechanical Ventilator 08/19/20 16:00 80 08/19/20 16:00 40 08/19/20 15:00 86 24 40 08/19/20 12:00 Mechanical Ventilator 08/19/20 12:00 97.6 66 19 131/74 (93) 100 08/19/20 12:00 40 08/19/20 12:00 66 08/19/20 11:10 65 21 40 08/19/20 08:00 40 08/19/20 08:00 98.0 74 18 108/69 (82) 100 08/19/20 08:00 74 08/19/20 08:00 Mechanical Ventilator 08/19/20 07:10 79 25 40 08/19/20 04:00 Mechanical Ventilator 08/19/20 04:00 98.1 75 19 113/66 (82) 100 08/19/20 04:00 40 08/19/20 03:58 65 08/19/20 02:52 71 18 40 08/19/20 00:00 Mechanical Ventilator 08/19/20 00:00 98.1 56 18 103/48 (66) 100 08/19/20 00:00 40 08/18/20 23:41 60 08/18/20 22:31 56 18 100 Mechanical Ventilator 40 58 18 08/18/20 20:00 Mechanical Ventilator 08/18/20 20:00 40 08/18/20 20:00 98.1 54 18 135/77 (96) 100 08/18/20 19:25 51 08/18/20 19:00 51 18 40 08/18/20 16:00 78 08/18/20 16:00 40 08/18/20 16:00 97.3 64 19 117/58 (77) 99 64 08/18/20 16:00 Mechanical Ventilator 08/18/20 15:20 52 18 40 08/18/20 12:00 52 08/18/20 12:00 Mechanical Ventilator 08/18/20 12:00 40 08/18/20 11:43 97.1 51 17 120/72 (88) 100 51 Intake and Output 08/19/20 08/20/20 19:00 07:00 Intake Total 950 ml 1988 ml Output Total 3625 ml Balance 950 ml -1637 ml Free Water 60 ml 50 ml IV Total 50 ml 1098 ml Tube Feeding 840 ml 840 ml Output Urine Total 3175 ml Stool Total 450 ml # Bowel Movements 3 3 Labs Test 08/17/20 14:24 08/17/20 15:40 08/18/20 03:40 08/19/20 04:30 Arterial Blood pH 7.484 (7.350-7.450) Arterial Blood Partial Pressure CO2 23.2 mmHg (35.0-45.0) Arterial Blood Partial Pressure O2 55.3 mmHg (75.0-100.0) Arterial Blood HCO3 17.0 mmol/L (22.0-26.0) Arterial Blood Oxygen Saturation 86.8 % (95-100) Arterial Blood Base Excess -5.6 (-2-2) Iglesia Test Positive Lactic Acid Level 1.00 mmol/L (0.4-2.0) White Blood Count 28.0 K/UL (4.8-10.8) 31.0 K/UL (4.8-10.8) Red Blood Count 2.36 M/UL (4.70-6.10) 2.29 M/UL (4.70-6.10) Hemoglobin 7.7 G/DL (14.2-18.0) 7.1 G/DL (14.2-18.0) Hematocrit 22.0 % (42.0-52.0) 21.8 % (42.0-52.0) Mean Corpuscular Volume 93 FL (80-99) 95 FL (80-99) Mean Corpuscular Hemoglobin 32.5 PG (27.0-31.0) 31.1 PG (27.0-31.0) Mean Corpuscular Hemoglobin Concent 34.9 G/DL (32.0-36.0) 32.7 G/DL (32.0-36.0) Red Cell Distribution Width 17.4 % (11.6-14.8) 16.9 % (11.6-14.8) Platelet Count 366 K/UL (150-450) 388 K/UL (150-450) Mean Platelet Volume 8.6 FL (6.5-10.1) 8.2 FL (6.5-10.1) Neutrophils (%) (Auto) % (45.0-75.0) % (45.0-75.0) Lymphocytes (%) (Auto) % (20.0-45.0) % (20.0-45.0) Monocytes (%) (Auto) % (1.0-10.0) % (1.0-10.0) Eosinophils (%) (Auto) % (0.0-3.0) % (0.0-3.0) Basophils (%) (Auto) % (0.0-2.0) % (0.0-2.0) Differential Total Cells Counted 100 100 Neutrophils % (Manual) 84 % (45-75) 83 % (45-75) Lymphocytes % (Manual) 10 % (20-45) 10 % (20-45) Monocytes % (Manual) 4 % (1-10) 5 % (1-10) Eosinophils % (Manual) 2 % (0-3) 2 % (0-3) Basophils % (Manual) 0 % (0-2) 0 % (0-2) Band Neutrophils 0 % (0-8) 0 % (0-8) Nucleated Red Blood Cells 1 /100 WBC Platelet Estimate Adequate Adequate Platelet Morphology Normal Normal Hypochromasia 1+ Anisocytosis 1+ 1+ Sodium Level 146 MMOL/L (136-145) 146 MMOL/L (136-145) Potassium Level 3.6 MMOL/L (3.5-5.1) 3.7 MMOL/L (3.5-5.1) Chloride Level 114 MMOL/L (98-107) 114 MMOL/L (98-107) Carbon Dioxide Level 17 MMOL/L (21-32) 21 MMOL/L (21-32) Anion Gap 15 mmol/L (5-15) 11 mmol/L (5-15) Blood Urea Nitrogen 24 mg/dL (7-18) 25 mg/dL (7-18) Creatinine 1.2 MG/DL (0.55-1.30) 1.1 MG/DL (0.55-1.30) Estimat Glomerular Filtration Rate > 60 mL/min (>60) > 60 mL/min (>60) Glucose Level 109 MG/DL (74-106) 94 MG/DL (74-106) Calcium Level 8.1 MG/DL (8.5-10.1) 8.0 MG/DL (8.5-10.1) Total Bilirubin 1.2 MG/DL (0.2-1.0) 1.1 MG/DL (0.2-1.0) Direct Bilirubin 0.5 MG/DL (0.0-0.3) 0.5 MG/DL (0.0-0.3) Aspartate Amino Transf (AST/SGOT) 57 U/L (15-37) 65 U/L (15-37) Alanine Aminotransferase (ALT/SGPT) 43 U/L (12-78) 54 U/L (12-78) Alkaline Phosphatase 465 U/L (46-116) 491 U/L (46-116) Total Protein 7.2 G/DL (6.4-8.2) 7.2 G/DL (6.4-8.2) Albumin 2.1 G/DL (3.4-5.0) 2.0 G/DL (3.4-5.0) Globulin 5.1 g/dL 5.2 g/dL Albumin/Globulin Ratio 0.4 (1.0-2.7) 0.4 (1.0-2.7) Random Vancomycin Level 13.8 ug/mL 15.7 ug/mL Test 08/20/20 05:00 08/20/20 09:20 White Blood Count 29.7 K/UL (4.8-10.8) Red Blood Count 2.12 M/UL (4.70-6.10) Hemoglobin 6.7 G/DL (14.2-18.0) Hematocrit 20.3 % (42.0-52.0) Mean Corpuscular Volume 96 FL (80-99) Mean Corpuscular Hemoglobin 31.8 PG (27.0-31.0) Mean Corpuscular Hemoglobin Concent 33.1 G/DL (32.0-36.0) Red Cell Distribution Width 16.6 % (11.6-14.8) Platelet Count 403 K/UL (150-450) Mean Platelet Volume 8.5 FL (6.5-10.1) Neutrophils (%) (Auto) % (45.0-75.0) Lymphocytes (%) (Auto) % (20.0-45.0) Monocytes (%) (Auto) % (1.0-10.0) Eosinophils (%) (Auto) % (0.0-3.0) Basophils (%) (Auto) % (0.0-2.0) Differential Total Cells Counted 100 Neutrophils % (Manual) 68 % (45-75) Lymphocytes % (Manual) 13 % (20-45) Monocytes % (Manual) 11 % (1-10) Eosinophils % (Manual) 8 % (0-3) Basophils % (Manual) 0 % (0-2) Band Neutrophils 0 % (0-8) Platelet Estimate Adequate Platelet Morphology Normal Hypochromasia 2+ Anisocytosis 1+ Sodium Level 144 MMOL/L (136-145) Potassium Level 3.9 MMOL/L (3.5-5.1) Chloride Level 115 MMOL/L (98-107) Carbon Dioxide Level 23 MMOL/L (21-32) Anion Gap 7 mmol/L (5-15) Blood Urea Nitrogen 28 mg/dL (7-18) Creatinine 1.0 MG/DL (0.55-1.30) Estimat Glomerular Filtration Rate > 60 mL/min (>60) Glucose Level 116 MG/DL (74-106) Calcium Level 8.6 MG/DL (8.5-10.1) Total Bilirubin 1.0 MG/DL (0.2-1.0) Aspartate Amino Transf (AST/SGOT) 118 U/L (15-37) Alanine Aminotransferase (ALT/SGPT) 93 U/L (12-78) Alkaline Phosphatase 547 U/L (46-116) Total Protein 7.0 G/DL (6.4-8.2) Albumin 2.0 G/DL (3.4-5.0) Globulin 5.0 g/dL Albumin/Globulin Ratio 0.4 (1.0-2.7) Ammonia 42 umol/L (11-32) Height (Feet): 5 Height (Inches): 10.00 Weight (Pounds): 112 Objective Physical Exam General: alert, Chronically Ill Head: other - Large right-sided craniotomy defect well-heale ++, tracheotomy/vent Respiratory: crackles, rales, other - right side chest wall tenderness Cardiovascular: tachycardia Gastrointestinal: normal inspection, soft, gt++ Musk: decreased range of motion, other - atrophic, motor weakness Neurologic: alert, motor weakness, other - left hemineglect Psychiatric: normal inspection Skin: no rash : garcia++ Roshan Castillo MD Aug 20, 2020 11:24
[2020-08-20 12:00] VITALS: BP 132/75
--- NOTE | 2020-08-20 13:22 | Surgery Progress Note ---
Surgery Progress Note Subjective Additional Comments no acute events Objective Last 24 Hour Vital Signs Date Time Temp Pulse Resp B/P (MAP) Pulse Ox O2 Delivery O2 Flow Rate FiO2 08/20/20 11:05 80 23 100 Mechanical Ventilator 40 82 24 40 08/20/20 09:00 40 08/20/20 08:00 Mechanical Ventilator 08/20/20 07:51 76 08/20/20 07:42 98.1 80 18 138/75 (96) 100 08/20/20 07:08 84 18 40 08/20/20 04:00 61 08/20/20 04:00 40 08/20/20 04:00 97.0 61 20 111/62 (78) 100 08/20/20 04:00 Mechanical Ventilator 08/20/20 03:15 56 18 40 08/20/20 00:00 40 08/20/20 00:00 97.6 54 18 118/66 (83) 100 08/20/20 00:00 Mechanical Ventilator 08/19/20 23:33 55 08/19/20 22:52 63 21 100 Mechanical Ventilator 40 08/19/20 22:37 61 18 Mechanical Ventilator 40 40 08/19/20 22:18 98.5 08/19/20 20:00 99.7 78 20 126/68 (87) 100 08/19/20 20:00 Mechanical Ventilator 08/19/20 20:00 40 08/19/20 19:32 79 08/19/20 19:12 75 25 40 08/19/20 16:00 97.5 68 20 137/78 (97) 100 08/19/20 16:00 Mechanical Ventilator 08/19/20 16:00 80 08/19/20 16:00 40 08/19/20 15:00 86 24 40 I&O Intake and Output 08/19/20 08/20/20 19:00 07:00 Intake Total 950 ml 1988 ml Output Total 3625 ml Balance 950 ml -1637 ml Free Water 60 ml 50 ml IV Total 50 ml 1098 ml Tube Feeding 840 ml 840 ml Output Urine Total 3175 ml Stool Total 450 ml # Bowel Movements 3 3 Cardiovascular: RSR Respiratory: clear Abdomen: soft, present bowel sounds Extremities: no edema, no tenderness, no cyanosis Laboratory Tests Test 08/20/20 05:00 08/20/20 09:20 White Blood Count 29.7 K/UL (4.8-10.8) *H Red Blood Count 2.12 M/UL (4.70-6.10) L Hemoglobin 6.7 G/DL (14.2-18.0) *L Hematocrit 20.3 % (42.0-52.0) L Mean Corpuscular Volume 96 FL (80-99) Mean Corpuscular Hemoglobin 31.8 PG (27.0-31.0) H Mean Corpuscular Hemoglobin Concent 33.1 G/DL (32.0-36.0) Red Cell Distribution Width 16.6 % (11.6-14.8) H Platelet Count 403 K/UL (150-450) Mean Platelet Volume 8.5 FL (6.5-10.1) Neutrophils (%) (Auto) % (45.0-75.0) Lymphocytes (%) (Auto) % (20.0-45.0) Monocytes (%) (Auto) % (1.0-10.0) Eosinophils (%) (Auto) % (0.0-3.0) Basophils (%) (Auto) % (0.0-2.0) Differential Total Cells Counted 100 Neutrophils % (Manual) 68 % (45-75) Lymphocytes % (Manual) 13 % (20-45) L Monocytes % (Manual) 11 % (1-10) H Eosinophils % (Manual) 8 % (0-3) H Basophils % (Manual) 0 % (0-2) Band Neutrophils 0 % (0-8) Platelet Estimate Adequate Platelet Morphology Normal Hypochromasia 2+ Anisocytosis 1+ Sodium Level 144 MMOL/L (136-145) Potassium Level 3.9 MMOL/L (3.5-5.1) Chloride Level 115 MMOL/L (98-107) H Carbon Dioxide Level 23 MMOL/L (21-32) Anion Gap 7 mmol/L (5-15) Blood Urea Nitrogen 28 mg/dL (7-18) H Creatinine 1.0 MG/DL (0.55-1.30) Estimat Glomerular Filtration Rate > 60 mL/min (>60) Glucose Level 116 MG/DL (74-106) H Calcium Level 8.6 MG/DL (8.5-10.1) Total Bilirubin 1.0 MG/DL (0.2-1.0) Aspartate Amino Transf (AST/SGOT) 118 U/L (15-37) H Alanine Aminotransferase (ALT/SGPT) 93 U/L (12-78) H Alkaline Phosphatase 547 U/L (46-116) H Total Protein 7.0 G/DL (6.4-8.2) Albumin 2.0 G/DL (3.4-5.0) L Globulin 5.0 g/dL Albumin/Globulin Ratio 0.4 (1.0-2.7) L Ammonia 42 umol/L (11-32) H Plan Problems: (1) Pneumonia (2) Sickle cell anemia (3) Tachycardia (4) Severe sepsis (5) Sickle cell crisis (6) Sepsis Assessment & Plan: 35-year-old male sickle cell multiple comorbidities history of craniotomy trach feeding tube prior port infected removed see prior admission and consult and operative notes. Currently presents with significant leukocytosis fevers hypotension in intensive care unit wound site evaluated unlikely etiology. Trach evaluated may consider changing. LFTs noted elevated. Ultrasound ordered pending results trend labs continue IV antibiotics appreciate infectious disease input will follow with recommendations thank you for let me participate in patient's care KUB and US noted labs reviewed transfuse prbc prn trach change peg changed line out picc placed pulmonary arteries: Evaluation for pulmonary embolus is limited due to breathing motion artifact. No central pulmonary emboli are identified. Aorta: No acute findings. No thoracic aortic aneurysm. Lungs: There are moderately consolidating infiltrates identified in both lower lobes dependently with mild additional patchy infiltrates dependently in both upper lobes. The findings are consistent with bilateral nonspecific pneumonia. Aspiration pneumonia could give this appearance. The infiltrates are only somewhat typical of Covid 19. Confidence is immediate. Pleural space: Unremarkable. No significant effusion. No pneumothorax. Heart: Unremarkable. No cardiomegaly. No significant pericardial effusion. No evidence of RV dysfunction. Bones/joints: No acute fracture. No dislocation. Soft tissues: Unremarkable. Lymph nodes: Unremarkable. No enlarged lymph nodes. Tubes, lines and devices: There is a tracheostomy tube in good position. IMPRESSION: 1. There are moderately consolidating infiltrates identified in both lower lobes dependently with mild additional patchy infiltrates dependently in both upper lobes. The findings are consistent with bilateral nonspecific pneumonia. Aspiration pneumonia could give this appearance. The infiltrates are only somewhat typical of Covid 19. Confidence is immediate. 2. Evaluation for pulmonary embolus is limited due to breathing motion artifact. No central pulmonary emboli are identified. The liver is homogeneous. We cannot identify a normal spleen. There is dense crescentic calcification in the left upper quadrant at the expected location of the spleen. Gallbladder is absent. The pancreas is unremarkable. Adrenals are normal in morphology. There is a small punctate cortical calcification left kidney. No hydronephrosis bilaterally There is a G-tube in place. Gas-filled bowel loops identified throughout the abdomen and pelvis. No discrete transition point or obstruction. Appendix partially visualized. There is some free fluid in the pelvis. There is no free air. There is a mildly prominent lymph nodes noted in the upper to mid retroperitoneum noted of undetermined etiology or significance. Rivera catheter noted in the bladder. The reservoir for the penile prosthesis is identified in the left lower pelvis. There is a right femoral venous catheter in place. Diffuse sclerosis of the bony pelvis and hips noted of undetermined etiology. IMPRESSION: BILATERAL LOWER LOBE PNEUMONIAS. ALSO SOME HAZY INFILTRATES IN THE UPPER LOBES. A NORMAL SPLEEN IS NOT VISUALIZED. THERE IS A DENSE CRESCENTIC CALCIFICATION LEFT UPPER QUADRANT AT THE EXPECTED LOCATION OF THE SPLEEN. 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 PUNCTATE CORTICAL CALCIFICATION LEFT KIDNEY. NO HYDRONEPHROSIS. PROMINENT LYMPH NODES IN THE UPPER TO MID RETROPERITONEUM OF UNDETERMINED ETIOLOGY OR SIGNIFICANCE. G-TUBE, RIVERA CATHETER, RIGHT FEMORAL CATHETER AND PENILE PROSTHESIS NOTED IN PLACE. MILD DIFFUSE SCLEROSIS OF THE BONY PELVIS AND BOTH HIPS OF UNDETERMINED ETIOLOGY. QUESTION HISTORY OF RENAL OSTEODYSTROPHY. There is a large craniectomy defect in the right frontal temporal region. Diffuse age-related volume loss demonstrated. 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 No definite acute infarct seen. There is no hemorrhage, mass effect or shift. Ventricles and cisterns as well as brainstem and posterior fossa appear unremarkable. The sellar region is normal. Sinuses, mastoid air cells and bony calvarium appear intact. IMPRESSION: Large right frontotemporal craniectomy defect. 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 No definite acute intracranial abnormality. (7) Port-A-Cath in place Assessment & Plan: prior removal for infection site okay dressings changed no active infection from wound picc Harman Zhao Aug 20, 2020 13:21
[2020-08-20] MEDS ORDERED: Vancomycin 750mg/NS 275ml IVPB ONE ×2 (14:00)
--- NOTE | 2020-08-20 14:33 | Infectious Diseases Prog Note ---
Assessment/Plan Assessment/Plan A: 1. MRSA sepsis. 2. Aspiration pneumonia MRSA, Pseudomonas & Serratia in culture COVID19 X 1: negative. 3. Leukemoid reaction. 4. Sickle cell disease. 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 VDRF 8. Femoral line infection, line removed 9. New Serratia sepsis PLAN: 1. Discontinue IV vancomycin, & Colistin inhaler 2. Continue Cefepime X 3 days Subjective ROS Limited/Unobtainable: Yes Allergies: Coded Allergies: ADHESIVE TAPE (Verified Allergy, Unknown, 07/20/20) Uncoded Allergies: TAPE (Allergy, Unknown, 08/07/20) Objective Last 24 Hour Vital Signs Date Time Temp Pulse Resp B/P (MAP) Pulse Ox O2 Delivery O2 Flow Rate FiO2 08/20/20 12:00 40 08/20/20 12:00 Mechanical Ventilator 08/20/20 12:00 99.9 77 18 132/75 (94) 100 08/20/20 11:31 79 08/20/20 11:05 80 23 100 Mechanical Ventilator 40 82 24 40 08/20/20 09:00 40 08/20/20 08:00 Mechanical Ventilator 08/20/20 07:51 76 08/20/20 07:42 98.1 80 18 138/75 (96) 100 08/20/20 07:08 84 18 40 08/20/20 04:00 61 08/20/20 04:00 40 08/20/20 04:00 97.0 61 20 111/62 (78) 100 08/20/20 04:00 Mechanical Ventilator 08/20/20 03:15 56 18 40 08/20/20 00:00 40 08/20/20 00:00 97.6 54 18 118/66 (83) 100 08/20/20 00:00 Mechanical Ventilator 08/19/20 23:33 55 08/19/20 22:52 63 21 100 Mechanical Ventilator 40 08/19/20 22:37 61 18 Mechanical Ventilator 40 40 08/19/20 22:18 98.5 08/19/20 20:00 99.7 78 20 126/68 (87) 100 08/19/20 20:00 Mechanical Ventilator 08/19/20 20:00 40 08/19/20 19:32 79 08/19/20 19:12 75 25 40 08/19/20 16:00 97.5 68 20 137/78 (97) 100 08/19/20 16:00 Mechanical Ventilator 08/19/20 16:00 80 08/19/20 16:00 40 08/19/20 15:00 86 24 40 Height (Feet): 5 Height (Inches): 10.00 Weight (Pounds): 112 General Appearance: no acute distress HEENT: status post trach, other - R craniotomy Respiratory/Chest: other - coarse sounds on ventilator Cardiovascular: normal rate, other - R arm PICC line Abdomen: soft, non tender, other - GT & rectal tube Extremities: no edema Neurologic/Psychiatric: alert, responsive Musculoskeletal: atrophy Laboratory Tests Test 08/20/20 05:00 08/20/20 09:20 White Blood Count 29.7 K/UL (4.8-10.8) *H Red Blood Count 2.12 M/UL (4.70-6.10) L Hemoglobin 6.7 G/DL (14.2-18.0) *L Hematocrit 20.3 % (42.0-52.0) L Mean Corpuscular Volume 96 FL (80-99) Mean Corpuscular Hemoglobin 31.8 PG (27.0-31.0) H Mean Corpuscular Hemoglobin Concent 33.1 G/DL (32.0-36.0) Red Cell Distribution Width 16.6 % (11.6-14.8) H Platelet Count 403 K/UL (150-450) Mean Platelet Volume 8.5 FL (6.5-10.1) Neutrophils (%) (Auto) % (45.0-75.0) Lymphocytes (%) (Auto) % (20.0-45.0) Monocytes (%) (Auto) % (1.0-10.0) Eosinophils (%) (Auto) % (0.0-3.0) Basophils (%) (Auto) % (0.0-2.0) Differential Total Cells Counted 100 Neutrophils % (Manual) 68 % (45-75) Lymphocytes % (Manual) 13 % (20-45) L Monocytes % (Manual) 11 % (1-10) H Eosinophils % (Manual) 8 % (0-3) H Basophils % (Manual) 0 % (0-2) Band Neutrophils 0 % (0-8) Platelet Estimate Adequate Platelet Morphology Normal Hypochromasia 2+ Anisocytosis 1+ Sodium Level 144 MMOL/L (136-145) Potassium Level 3.9 MMOL/L (3.5-5.1) Chloride Level 115 MMOL/L (98-107) H Carbon Dioxide Level 23 MMOL/L (21-32) Anion Gap 7 mmol/L (5-15) Blood Urea Nitrogen 28 mg/dL (7-18) H Creatinine 1.0 MG/DL (0.55-1.30) Estimat Glomerular Filtration Rate > 60 mL/min (>60) Glucose Level 116 MG/DL (74-106) H Calcium Level 8.6 MG/DL (8.5-10.1) Total Bilirubin 1.0 MG/DL (0.2-1.0) Aspartate Amino Transf (AST/SGOT) 118 U/L (15-37) H Alanine Aminotransferase (ALT/SGPT) 93 U/L (12-78) H Alkaline Phosphatase 547 U/L (46-116) H Total Protein 7.0 G/DL (6.4-8.2) Albumin 2.0 G/DL (3.4-5.0) L Globulin 5.0 g/dL Albumin/Globulin Ratio 0.4 (1.0-2.7) L Ammonia 42 umol/L (11-32) H Current Medications Medications (Trade) Dose Ordered Sig/Piedad Route PRN Reason Start Time Stop Time Status Last Admin Dose Admin Acetaminophen (Tylenol) 650 mg Q6H PRN GT Temp >100.5 08/10/20 20:20 09/09/20 20:19 08/19/20 21:48 Cefepime HCl 2 gm/ Dextrose 55 ml @ 110 mls/hr EVERY 12 HOURS IVPB 08/14/20 13:00 08/21/20 12:59 08/20/20 08:54 Chlorhexidine Gluconate (Christy-Hex 2%) 1 applic DAILY@1999 TOPIC 08/14/20 20:00 11/12/20 19:59 08/19/20 21:14 Colistimethate Sodium (Colistin *inhalation use only*) 75 mg Q12HR@10,22 INH 08/13/20 22:00 08/20/20 21:59 08/20/20 10:50 Famotidine (Pepcid) 20 mg DAILY GT 08/11/20 09:00 12/7/20 08:59 08/20/20 08:54 Folic Acid (Folate) 1 mg DAILY GT 08/11/20 09:00 09/07/20 08:59 08/20/20 09:02 Heparin Sodium (Porcine) (Heparin 5000 units/ml) 5,000 units EVERY 12 HOURS SUBQ 08/10/20 21:00 09/22/20 20:59 08/19/20 10:36 Levetiracetam 100 ml @ 400 mls/hr Q12HR IVPB 08/14/20 10:00 11/12/20 09:59 08/20/20 09:04 Metoclopramide HCl (Reglan) 5 mg Q6H PRN IVP Nausea & Vomiting 08/13/20 22:15 09/12/20 22:14 Multivitamins (Multivitamins) 1 tab DAILY GT 08/11/20 09:00 09/07/20 08:59 08/20/20 08:54 Pantoprazole (Protonix) 40 mg EVERY 12 HOURS IVP 08/13/20 22:15 09/12/20 22:14 08/20/20 09:02 Sodium Bicarbonate 50 ml/ Dextrose/Sodium Chloride 1,050 ml @ 50 mls/hr Q21H IV 08/17/20 16:00 09/16/20 15:59 08/20/20 03:13 Vancomycin HCl (Vanco pharmacy to dose) 1 ea DAILY PRN MISC Per rx protocol 08/16/20 10:00 08/20/20 23:59 Vancomycin HCl 750 mg/Sodium Chloride 275 ml @ 183.333 mls/hr ONCE ONCE IVPB 08/20/20 14:00 08/20/20 15:29 Wyatt Kemp MD Aug 20, 2020 14:33
--- NOTE | 2020-08-20 15:18 | NUR ---
NURSE NOTES: left a message to dr luz regarding ammonia level of 42 today. awaiting callback and new order.
[2020-08-20 16:00] VITALS: BP 123/70
--- NOTE | 2020-08-20 19:00 | NUR ---
NURSE NOTES: Received report from ARLYN Fernandez. Pt is awake, nodding and has no signs of pain. pt is alert x 2. Able to follow simple comm ands. Pt has no signs of respiratory distress. Pt is attached to vent with appropriate settings and attached to rectal tube patent and intact. pt has picc line on right Upper arm, patent and intact. With Gtube running flushing and no residual. Bed in lowest position. Call light within reach. Continue to plan of care.
--- NOTE | 2020-08-20 19:25 | NUR ---
NURSE HAND-OFF REPORT: Important Events on Shift: hgb 6.[address] luz, no need for blood transfusion Patient Status: full code Diet: vital af @70 Pending Orders: [] Pending Results/Labs: ammonia level 42 Pending MD notification:left message to dr luz, awaitng callback Latest Vital Signs: Temperature 99.1 , Pulse 56 , B/P 123 /70 , Respiratory Rate 18 , O2 SAT 100 , Mechanical Ventilator, O2 Flow Rate . Vital Sign Comment: [] EKG Rhythm: Sinus Rhythm Rhythm change?: N MD Notified?: MD Response: Latest Stevens Fall Score: 70 Fall Risk: High Risk Safety Measures: Call light Within Reach, Bed Alarm Zone 2, Side Rails Side Rails x2, Bed position Low and Locked. Fall Precautions: Yellow Socks Report given to princess blackwell.
[2020-08-20 20:00] VITALS: BP 131/74
[2020-08-20] MEDS: Dyna-Hex 2% Top Sol 2oz TOPIC SCH (20:58)
[2020-08-21 00:34] VITALS: BP 122/67
--- NOTE | 2020-08-21 03:00 | NUR ---
NURSE NOTES: Seen pt in bed with no signs of respiratory distress. Pt sometimes resistive to care and not cooperative. pt is awake and resting. Changed and repositioned pt. Rectal tube with brown soft stool noted. no increased signs change in mental status noted. Continue to plan of care.
[2020-08-21] MEDS: Sodium Bicarbonate 50 ML in D5 1/2NS 1,000 ML IV SCH (03:18)
[2020-08-21 04:00] VITALS: BP 120/67
[2020-08-21 05:13] LABS: HEMATOCRIT 19.4 % (42.0-52.0); MEAN CORPUSCULAR VOLUME 97 FL (80-99); PLATELET COUNT 430 K/UL (150-450); RED BLOOD COUNT 2.01 M/UL (4.70-6.10); RED CELL DISTRIBUTION WIDTH 17.1 % (11.6-14.8)
[2020-08-21 05:25] LABS: HEMOGLOBIN 6.5 G/DL (14.2-18.0); WHITE BLOOD COUNT 28.7 K/UL (4.8-10.8)
[2020-08-21 06:03] LABS: ALANINE AMINOTRANSFERASE 100 U/L (12-78); ALBUMIN/GLOBULIN RATIO 0.4 (1.0-2.7); ALKALINE PHOSPHATASE 509 U/L (46-116); ANION GAP 9 mmol/L (5-15); ASPARTATE AMINO TRANSFERASE 102 U/L (15-37); BLOOD UREA NITROGEN 30 mg/dL (7-18); CALCIUM 8.4 MG/DL (8.5-10.1); CARBON DIOXIDE 23 MMOL/L (21-32); CHLORIDE 117 MMOL/L (98-107); POTASSIUM 3.6 MMOL/L (3.5-5.1); SODIUM 149 MMOL/L (136-145)
--- NOTE | 2020-08-21 07:15 | NUR ---
NURSE HAND-OFF REPORT: Important Events on Shift: low hemoglobin count. Ammonia level is high. Patient Status: Pt is asymptomatic, no increase in confusion. Diet: Vital AF @70cc/hr Pending Orders: None Pending Results/Labs: None Pending MD notification: None Latest Vital Signs: Temperature 98.4 , Pulse 64 , B/P 120 /67 , Respiratory Rate 17 , O2 SAT 100 , Mechanical Ventilator, O2 Flow Rate . Vital Sign Comment: WNL EKG Rhythm: Sinus Rhythm Rhythm change?: N Notified?: N -Dr Regan JIMENEZ Response: Latest Stevens Fall Score: 70 Fall Risk: High Risk Safety Measures: Call light Within Reach, Bed Alarm Zone 2, Side Rails Side Rails x2, Bed position Low and Locked. Fall Precautions: Yellow Socks Report given to .
--- NOTE | 2020-08-21 07:30 | NUR ---
NURSE NOTES: Received report from ARLYN Merritt. The patient is resting on the bed without acute distress or shortness of breath. The patient is AOx4, able to make needs known via mouth word. SB to SR with HR of 50-60s on the equipment monitor phototypesetting and the patient is asymptomatic. The patient is trach'ed and on ventilator on following setting and oxygen saturation is 100%: Shiley 6, AC 18, TV 450, FiO2 40%, and PEEP 0. The patient's GT intact and patent and running Vital AF 1.2 @ 70mL/hr. Residual checked and residual of 120mL noted. Notified Dr. Stiles and held the feeding. The patient's Overton and rectal tube are intact and patent and draining by gravity. The patient's skin issue noted and dressing intact. The patient has SHER double lumen PICC line that is intact and patent and running D5 1/2NS with sodium bicarb @50mL/hr. The patient's bed in the lowest position, call light in reach, and fall, aspiration, and seizure precaution reinforced. IV site intact and patent. Will follow up the order and lab. Will closely monitor the patient. Will continue plan of care.
--- NOTE | 2020-08-21 07:45 | NUR ---
NURSE NOTES: Dr. Celaya at the bedside assessed the patient. Dr. Celaya was notified regarding abnormal lab including WBC, Hgb, Na, K, AST, ALT, and Ammonia level. Dr. Celaya changed IVF to D5W @ 75mL/hr. Per Dr. Celaya, no blood transfusion at this time. Will administer medications as ordered. Will continue plan of care.
--- NOTE | 2020-08-21 07:49 | General Progress Note ---
Subjective ROS Limited/Unobtainable: No Constitutional: Reports: malaise, weakness HEENT: Reports: no symptoms Cardiovascular: Reports: no symptoms Respiratory: Reports: shortness of breath Gastrointestinal/Abdominal: Reports: difficulty swallowing Genitourinary: Reports: no symptoms Neurologic/Psychiatric: Reports: pre-existing deficit Endocrine: Reports: no symptoms Hematologic/Lymphatic: Reports: anemia Allergies: Coded Allergies: ADHESIVE TAPE (Verified Allergy, Unknown, 07/20/20) Uncoded Allergies: TAPE (Allergy, Unknown, 08/07/20) All Systems: reviewed and negative except above Subjective no change. able to nod yes/no. seems more alert. able to respond to commands. no szs. Objective Last 24 Hour Vital Signs Date Time Temp Pulse Resp B/P (MAP) Pulse Ox O2 Delivery O2 Flow Rate FiO2 08/21/20 04:00 40 08/21/20 04:00 Mechanical Ventilator 08/21/20 04:00 98.4 64 17 120/67 (84) 100 08/21/20 03:45 64 08/21/20 03:20 64 18 40 08/21/20 00:34 98.1 63 18 122/67 (85) 100 08/21/20 00:00 Mechanical Ventilator 08/20/20 23:55 61 08/20/20 23:10 65 18 40 08/20/20 20:00 40 08/20/20 20:00 97.9 68 18 131/74 (93) 100 08/20/20 20:00 62 08/20/20 20:00 Mechanical Ventilator 08/20/20 19:50 64 18 40 08/20/20 16:00 99.1 56 18 123/70 (87) 100 08/20/20 16:00 Mechanical Ventilator 08/20/20 16:00 40 08/20/20 15:26 57 08/20/20 15:00 59 18 40 08/20/20 12:00 40 08/20/20 12:00 Mechanical Ventilator 08/20/20 12:00 99.9 77 18 132/75 (94) 100 08/20/20 11:31 79 08/20/20 11:05 80 23 100 Mechanical Ventilator 40 82 24 40 08/20/20 09:00 40 08/20/20 08:00 Mechanical Ventilator 08/20/20 07:51 76 Intake and Output 08/20/20 08/21/20 19:00 07:00 Intake Total 1955 ml 1435 ml Output Total 1600 ml Balance 355 ml 1435 ml Free Water 110 ml 50 ml IV Total 1005 ml 755 ml Tube Feeding 840 ml 630 ml Output Urine Total 1500 ml Stool Total 100 ml Laboratory Tests 08/20/20 09:20: Ammonia 42H 08/21/20 04:00: White Blood Count 28.7*H, Red Blood Count 2.01L, Hemoglobin 6.5*L, Hematocrit 19.4L, Mean Corpuscular Volume 97, Mean Corpuscular Hemoglobin 32.4H, Mean Corpuscular Hemoglobin Concent 33.5, Red Cell Distribution Width 17.1H, Platelet Count 430, Mean Platelet Volume 8.3, Neutrophils (%) (Auto) , Lymphocytes (%) (Auto) , Monocytes (%) (Auto) , Eosinophils (%) (Auto) , Basophils (%) (Auto) , Neutrophils % (Manual) [Pending], Lymphocytes % (Manual) [Pending], Platelet Estimate [Pending], Platelet Morphology [Pending], Sodium Level 149H, Potassium Level 3.6, Chloride Level 117H, Carbon Dioxide Level 23, Anion Gap 9, Blood Urea Nitrogen 30H, Creatinine 1.0, Estimat Glomerular Filtration Rate > 60, Glucose Level 99, Calcium Level 8.4L, Total Bilirubin 1.0, Aspartate Amino Transf (AST/SGOT) 102H, Alanine Aminotransferase (ALT/SGPT) 100H, Alkaline Phosphatase 509H, Total Protein 6.8, Albumin 2.0L, Globulin 4.8, Albumin/Globulin Ratio 0.4L Height (Feet): 5 Height (Inches): 10.00 Weight (Pounds): 112 Objective General Appearance: WD/WN, lethargic EENT: normal ENT inspection Neck: normal alignment Cardiovascular: normal peripheral pulses, normal rate Respiratory/Chest: chest wall non-tender, lungs clear, normal breath sounds Abdomen: normal bowel sounds, non tender, soft, no organomegaly Edema: no edema noted Arm (L), no edema noted Arm (R) Neurologic: unresponsive Assessment/Plan Problem List: (1) Pneumonia ICD Codes: J18.9 - Pneumonia, unspecified organism SNOMED: 030151160 Qualifiers: Qualified Codes: J18.9 - Pneumonia, unspecified organism (2) Sickle cell anemia ICD Codes: D57.1 - Sickle-cell disease without crisis SNOMED: 906396073 Qualifiers: Qualified Codes: D57.00 - Hb-SS disease with crisis, unspecified (3) Severe sepsis ICD Codes: A41.9 - Sepsis, unspecified organism; R65.20 - Severe sepsis without septic shock SNOMED: 45606117 Status: stable, not improved Assessment/Plan: neuro eval? seem more alert lactulose hypotonic ivf x 1 day cont vent support resp care gt feeds iv abx per ID follow up albs monitor h/h transfuse as needed PPI rx eeg- no szs keppra decreased to dauly(pts prior dose) Lalo Celaya MD Aug 21, 2020 07:49
[2020-08-21 08:00] VITALS: BP 122/71
[2020-08-21] MEDS ORDERED: Lactulose 20gm/30ml UDC ORAL SCH (08:00)
--- NOTE | 2020-08-21 08:00 | NUR ---
NURSE NOTES: Morning vital signs taken. Morning nursing assessment done. The patient is stable at this time. Will closely monitor the patient. Will continue plan of care.
--- NOTE | 2020-08-21 08:05 | Critical Care Progress Note ---
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 Port-A-Cath Status post removal of implanted right chest wall Port-A-Cath Sickle cell crisis Sickle cell anemia Chronic respiratory failure, ventilator dependent, with tracheostomy status Transaminitis Seizure disorder acute pneumonia leukocytosis recurrent sepsis PLAN care noted IV antibiotics reviewed respiratory care Ventilatory support- pressure control; maintain as is sedation as needed SNF meds supportive care suction no wean planned monitor wbc oxygen therapy and titrate prognosis guarded ID follow up and recommendations medications/laboratory data/nursing notes reviewed in detail note reviewed and edited care discussed with RN and RT Critical Care - Subjective Interval Events: care noted on vent wbc still elevated ROS Limited/Unobtainable: Yes Condition: unchanged EKG Rhythm: Sinus Rhythm Residuals: minimal Tube Feeding Tolerated: yes I&O: Intake and Output 08/20/20 08/21/20 19:00 07:00 Intake Total 1955 ml 1435 ml Output Total 1600 ml Balance 355 ml 1435 ml Free Water 110 ml 50 ml IV Total 1005 ml 755 ml Tube Feeding 840 ml 630 ml Output Urine Total 1500 ml Stool Total 100 ml Critical Care - Objective Last 24 Hour Vital Signs Date Time Temp Pulse Resp B/P (MAP) Pulse Ox O2 Delivery O2 Flow Rate FiO2 08/21/20 04:00 40 08/21/20 04:00 Mechanical Ventilator 08/21/20 04:00 98.4 64 17 120/67 (84) 100 08/21/20 03:45 64 08/21/20 03:20 64 18 40 08/21/20 00:34 98.1 63 18 122/67 (85) 100 08/21/20 00:00 Mechanical Ventilator 08/20/20 23:55 61 08/20/20 23:10 65 18 40 08/20/20 20:00 40 08/20/20 20:00 97.9 68 18 131/74 (93) 100 08/20/20 20:00 62 08/20/20 20:00 Mechanical Ventilator 08/20/20 19:50 64 18 40 08/20/20 16:00 99.1 56 18 123/70 (87) 100 08/20/20 16:00 Mechanical Ventilator 08/20/20 16:00 40 08/20/20 15:26 57 08/20/20 15:00 59 18 40 08/20/20 12:00 40 08/20/20 12:00 Mechanical Ventilator 08/20/20 12:00 99.9 77 18 132/75 (94) 100 08/20/20 11:31 79 08/20/20 11:05 80 23 100 Mechanical Ventilator 40 82 24 40 08/20/20 09:00 40 Objective: WDWN NAD reduced breath sounds bilaterally without rhonchi or wheeze [id number] without MRG NABS nontender GT no CCE reduced LOC James Nuñez MD Aug 21, 2020 08:05
[2020-08-21] MEDS: levETIRAcetam 1,000mg/NS100ml 100 ML IVPB SCH ×2 (08:48→20:34)
[2020-08-21] MEDS: Pantoprazole Inj IVP SCH ×2 (08:48→20:34)
[2020-08-21] MEDS: Cefepime HCl 2 GM in D5W 55 ML IVPB SCH (08:49)
[2020-08-21] MEDS: Heparin 5000 units/ml inj SUBQ SCH ×2 (08:49→20:19)
--- NOTE | 2020-08-21 09:00 | NUR ---
NURSE NOTES: Rechecked GT residual. No residual noted. TF resumed at lower rate @20mL/hr. Will recheck residual in couple hours and increase the rate gradually. Will closely monitor the patient. Will continue plan of care.
--- NOTE | 2020-08-21 09:23 | Surgery Progress Note ---
Surgery Progress Note Subjective Additional Comments afebrile HD stable states feels well anemia persistent wbc Objective Last 24 Hour Vital Signs Date Time Temp Pulse Resp B/P (MAP) Pulse Ox O2 Delivery O2 Flow Rate FiO2 08/21/20 07:15 62 18 40 08/21/20 04:00 40 08/21/20 04:00 Mechanical Ventilator 08/21/20 04:00 98.4 64 17 120/67 (84) 100 08/21/20 03:45 64 08/21/20 03:20 64 18 40 08/21/20 00:34 98.1 63 18 122/67 (85) 100 08/21/20 00:00 Mechanical Ventilator 08/20/20 23:55 61 08/20/20 23:10 65 18 40 08/20/20 20:00 40 08/20/20 20:00 97.9 68 18 131/74 (93) 100 08/20/20 20:00 62 08/20/20 20:00 Mechanical Ventilator 08/20/20 19:50 64 18 40 08/20/20 16:00 99.1 56 18 123/70 (87) 100 08/20/20 16:00 Mechanical Ventilator 08/20/20 16:00 40 08/20/20 15:26 57 08/20/20 15:00 59 18 40 08/20/20 12:00 40 08/20/20 12:00 Mechanical Ventilator 08/20/20 12:00 99.9 77 18 132/75 (94) 100 08/20/20 11:31 79 08/20/20 11:05 80 23 100 Mechanical Ventilator 40 82 24 40 I&O Intake and Output 08/20/20 08/21/20 19:00 07:00 Intake Total 1955 ml 1435 ml Output Total 1600 ml Balance 355 ml 1435 ml Free Water 110 ml 50 ml IV Total 1005 ml 755 ml Tube Feeding 840 ml 630 ml Output Urine Total 1500 ml Stool Total 100 ml Dressing: other Wound: other Cardiovascular: RSR Respiratory: decreased breath sounds Abdomen: soft, non-tender, present bowel sounds Extremities: no tenderness, no cyanosis, other Laboratory Tests Test 08/21/20 04:00 White Blood Count 28.7 K/UL (4.8-10.8) *H Red Blood Count 2.01 M/UL (4.70-6.10) L Hemoglobin 6.5 G/DL (14.2-18.0) *L Hematocrit 19.4 % (42.0-52.0) L Mean Corpuscular Volume 97 FL (80-99) Mean Corpuscular Hemoglobin 32.4 PG (27.0-31.0) H Mean Corpuscular Hemoglobin Concent 33.5 G/DL (32.0-36.0) Red Cell Distribution Width 17.1 % (11.6-14.8) H Platelet Count 430 K/UL (150-450) Mean Platelet Volume 8.3 FL (6.5-10.1) Neutrophils (%) (Auto) % (45.0-75.0) Lymphocytes (%) (Auto) % (20.0-45.0) Monocytes (%) (Auto) % (1.0-10.0) Eosinophils (%) (Auto) % (0.0-3.0) Basophils (%) (Auto) % (0.0-2.0) Neutrophils % (Manual) Pending Lymphocytes % (Manual) Pending Platelet Estimate Pending Platelet Morphology Pending Sodium Level 149 MMOL/L (136-145) H Potassium Level 3.6 MMOL/L (3.5-5.1) Chloride Level 117 MMOL/L (98-107) H Carbon Dioxide Level 23 MMOL/L (21-32) Anion Gap 9 mmol/L (5-15) Blood Urea Nitrogen 30 mg/dL (7-18) H Creatinine 1.0 MG/DL (0.55-1.30) Estimat Glomerular Filtration Rate > 60 mL/min (>60) Glucose Level 99 MG/DL (74-106) Calcium Level 8.4 MG/DL (8.5-10.1) L Total Bilirubin 1.0 MG/DL (0.2-1.0) Aspartate Amino Transf (AST/SGOT) 102 U/L (15-37) H Alanine Aminotransferase (ALT/SGPT) 100 U/L (12-78) H Alkaline Phosphatase 509 U/L (46-116) H Total Protein 6.8 G/DL (6.4-8.2) Albumin 2.0 G/DL (3.4-5.0) L Globulin 4.8 g/dL Albumin/Globulin Ratio 0.4 (1.0-2.7) L Plan Problems: (1) Pneumonia (2) Sickle cell anemia (3) Tachycardia (4) Severe sepsis (5) Sickle cell crisis (6) Sepsis Assessment & Plan: 35-year-old male sickle cell multiple comorbidities history of craniotomy trach feeding tube prior port infected removed see prior admission and consult and operative notes. Currently presents with significant leukocytosis fevers hypotension in intensive care unit wound site evaluated unlikely etiology. Trach evaluated may consider changing. LFTs noted elevated. Ultrasound ordered pending results trend labs continue IV antibiotics appreciate infectious disease input will follow with recommendations thank you for let me participate in patient's care KUB and US noted labs reviewed transfuse prbc prn trach change peg changed line out picc placed persistent wbc h/h noted anemia ss better since new trach Shiley [address] secretions manageable pulmonary arteries: Evaluation for pulmonary embolus is limited due to breathing motion artifact. No central pulmonary emboli are identified. Aorta: No acute findings. No thoracic aortic aneurysm. Lungs: There are moderately consolidating infiltrates identified in both lower lobes dependently with mild additional patchy infiltrates dependently in both upper lobes. The findings are consistent with bilateral nonspecific pneumonia. Aspiration pneumonia could give this appearance. The infiltrates are only somewhat typical of Covid 19. Confidence is immediate. Pleural space: Unremarkable. No significant effusion. No pneumothorax. Heart: Unremarkable. No cardiomegaly. No significant pericardial effusion. No evidence of RV dysfunction. Bones/joints: No acute fracture. No dislocation. Soft tissues: Unremarkable. Lymph nodes: Unremarkable. No enlarged lymph nodes. Tubes, lines and devices: There is a tracheostomy tube in good position. IMPRESSION: 1. There are moderately consolidating infiltrates identified in both lower lobes dependently with mild additional patchy infiltrates dependently in both upper lobes. The findings are consistent with bilateral nonspecific pneumonia. Aspiration pneumonia could give this appearance. The infiltrates are only somewhat typical of Covid 19. Confidence is immediate. 2. Evaluation for pulmonary embolus is limited due to breathing motion artifact. No central pulmonary emboli are identified. The liver is homogeneous. We cannot identify a normal spleen. There is dense crescentic calcification in the left upper quadrant at the expected location of the spleen. Gallbladder is absent. The pancreas is unremarkable. Adrenals are no rmal in morphology. There is a small punctate cortical calcification left kidney. No hydronephrosis bilaterally There is a G-tube in place. Gas-filled bowel loops identified throughout the abdomen and pelvis. No discrete transition point or obstruction. Appendix partially visualized. There is some free fluid in the pelvis. There is no free air. There is a mildly prominent lymph nodes noted in the upper to mid retroperitoneum noted of undetermined etiology or significance. Rivera catheter noted in the bladder. The reservoir for the penile prosthesis is identified in the left lower pelvis. There is a right femoral venous catheter in place. Diffuse sclerosis of the bony pelvis and hips noted of undetermined etiology. IMPRESSION: BILATERAL LOWER LOBE PNEUMONIAS. ALSO SOME HAZY INFILTRATES IN THE UPPER LOBES. A NORMAL SPLEEN IS NOT VISUALIZED. THERE IS A DENSE CRESCENTIC CALCIFICATION LEFT UPPER QUADRANT AT THE EXPECTED LOCATION OF THE SPLEEN. 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 PUNCTATE CORTICAL CALCIFICATION LEFT KIDNEY. NO HYDRONEPHROSIS. PROMINENT LYMPH NODES IN THE UPPER TO MID RETROPERITONEUM OF UNDETERMINED ETIO LOGY OR SIGNIFICANCE. G-TUBE, RIVERA CATHETER, RIGHT FEMORAL CATHETER AND PENILE PROSTHESIS NOTED IN PLACE. MILD DIFFUSE SCLEROSIS OF THE BONY PELVIS AND BOTH HIPS OF UNDETERMINED ETIOLOGY. QUESTION HISTORY OF RENAL OSTEODYSTROPHY. There is a large craniectomy defect in the right frontal temporal region. Diffuse age-related volume loss demonstrated. There are old infarcts and e ncephalomalacia noted in the frontal lobes and bilateral insular regions. No definite acute infarct seen. There is no hemorrhage, mass effect or shift. Ventricles and cisterns as well as brainstem and posterior fossa appear unremarkable. The sellar region is normal. Sinuses, mastoid air cells and bony calvarium appear intact. IMPRESSION: Large right frontotemporal craniectomy defect. 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 No definite acute intracranial abnormality. (7) Port-A-Cath in place Assessment & Plan: prior removal for infection site okay dressings changed no active infection from wound picc Harman Zhao Aug 21, 2020 09:22
--- NOTE | 2020-08-21 09:33 | Hematology/Onc Progress Note ---
Assessment/Plan Assessment/Plan Assessment and Recs # Sickle cell crisis noted upon admission, with hx of sickle cell anemia --> hgb 6.5-->7.1-->6.6->>>>7.3-->7.1 -->6.7-->6.5 --> 1 unit prbc on 07/23 --> ivfs have been started --> anemia panel ordered, with elev ferritin --> recommend to consider hydrea when discharged if stable --> likely does have mild hemolysis --> hgb electrophoresis show evidence of sickle cell trait # Hyperferritinemia with elevated ferritin that was noted --> likely consider exjade once discharged though at this time not limiting --> ferritin can >2000 with recurrent transfusions --> trend over time, for EOD observe # Leukocytosis poa with Severe sepsis due to line infection --> abx: vancomycin-->cefepime/colistin-->cefepime --> wbc 25-->31-->29 # Respiratory failure s/p Ventilator dependent --> as per pulm, vent adjustment # Port-A-Cath in place --> s/p abx --> s/p permacath removal # Transaminitis -->liver function elevated --> per gi # Dt ppx heparin sq The timing of this note does not necessarily reflect the time of the patient was seen. Greatly appreciate consultation. Subjective Allergies: Coded Allergies: ADHESIVE TAPE (Verified Allergy, Unknown, 07/20/20) Uncoded Allergies: TAPE (Allergy, Unknown, 08/07/20) Subjective 08/19 no acute events, vent, iv abx, labs reviewed 08/20 labs reviewed, seen by Dr. Celaya and mychal Rn, holding off prbc 08/21 remains on abx with persistently elev wbc, on abx broad spectrum Objective Objective Current Medications Medications (Trade) Dose Ordered Sig/Piedad Route PRN Reason Start Time Stop Time Status Last Admin Dose Admin Acetaminophen (Tylenol) 650 mg Q6H PRN GT Temp >100.5 08/10/20 20:20 09/09/20 20:19 08/19/20 21:48 Cefepime HCl 2 gm/ Dextrose 55 ml @ 110 mls/hr EVERY 12 HOURS IVPB 08/14/20 13:00 08/21/20 12:59 08/21/20 08:49 Chlorhexidine Gluconate (Christy-Hex 2%) 1 applic DAILY@2000 TOPIC 08/14/20 20:00 11/12/20 19:59 08/20/20 20:58 Dextrose 1,000 ml @ 75 mls/hr [id number] IV 08/21/20 07:45 08/22/20 06:00 08/21/20 08:47 Famotidine (Pepcid) 20 mg DAILY GT 08/11/20 09:00 11/06/20 08:59 08/21/20 08:47 Folic Acid (Folate) 1 mg DAILY GT 08/11/20 09:00 09/07/20 08:59 08/21/20 08:47 Heparin Sodium (Porcine) (Heparin 5000 units/ml) 5,000 units EVERY 12 HOURS SUBQ 08/10/20 21:00 09/22/20 20:59 08/19/20 10:36 Levetiracetam 100 ml @ 400 mls/hr Q12HR IVPB 08/14/20 10:00 11/12/20 09:59 08/21/20 08:48 Metoclopramide HCl (Reglan) 5 mg Q6H PRN IVP Nausea & Vomiting 08/13/20 22:15 09/12/20 22:14 Multivitamins (Multivitamins) 1 tab DAILY GT 08/11/20 09:00 09/07/20 08:59 08/21/20 08:47 Pantoprazole (Protonix) 40 mg EVERY 12 HOURS IVP 08/13/20 22:15 09/12/20 22:14 08/21/20 08:48 Sodium Bicarbonate 50 ml/ Dextrose/Sodium Chloride 1,050 ml @ 50 mls/hr Q21H IV 08/17/20 16:00 09/16/20 15:59 08/21/20 03:18 Last 24 Hour Vital Signs Date Time Temp Pulse Resp B/P (MAP) Pulse Ox O2 Delivery O2 Flow Rate FiO2 08/21/20 07:15 62 18 40 08/21/20 04:00 40 08/21/20 04:00 Mechanical Ventilator 08/21/20 04:00 98.4 64 17 120/67 (84) 100 08/21/20 03:45 64 08/21/20 03:20 64 18 40 08/21/20 00:34 98.1 63 18 122/67 (85) 100 08/21/20 00:00 Mechanical Ventilator 08/20/20 23:55 61 08/20/20 23:10 65 18 40 08/20/20 20:00 40 08/20/20 20:00 97.9 68 18 131/74 (93) 100 08/20/20 20:00 62 08/20/20 20:00 Mechanical Ventilator 08/20/20 19:50 64 18 40 08/20/20 16:00 99.1 56 18 123/70 (87) 100 08/20/20 16:00 Mechanical Ventilator 08/20/20 16:00 40 08/20/20 15:26 57 08/20/20 15:00 59 18 40 08/20/20 12:00 40 08/20/20 12:00 Mechanical Ventilator 08/20/20 12:00 99.9 77 18 132/75 (94) 100 08/20/20 11:31 79 08/20/20 11:05 80 23 100 Mechanical Ventilator 40 82 24 40 08/20/20 09:00 40 08/20/20 08:00 Mechanical Ventilator 08/20/20 07:51 76 08/20/20 07:42 98.1 80 18 138/75 (96) 100 08/20/20 07:08 84 18 40 08/20/20 04:00 61 08/20/20 04:00 40 08/20/20 04:00 97.0 61 20 111/62 (78) 100 08/20/20 04:00 Mechanical Ventilator 08/20/20 03:15 56 18 40 08/20/20 00:00 40 08/20/20 00:00 97.6 54 18 118/66 (83) 100 08/20/20 00:00 Mechanical Ventilator 08/19/20 23:33 55 08/19/20 22:52 63 21 100 Mechanical Ventilator 40 08/19/20 22:37 61 18 Mechanical Ventilator 40 40 08/19/20 22:18 98.5 08/19/20 20:00 99.7 78 20 126/68 (87) 100 08/19/20 20:00 Mechanical Ventilator 08/19/20 20:00 40 08/19/20 19:32 79 9/19/20 19:12 75 25 40 08/19/20 16:00 97.5 68 20 137/78 (97) 100 08/19/20 16:00 Mechanical Ventilator 08/19/20 16:00 80 08/19/20 16:00 40 08/19/20 15:00 86 24 40 08/19/20 12:00 Mechanical Ventilator 08/19/20 12:00 97.6 66 19 131/74 (93) 100 08/19/20 12:00 40 08/19/20 12:00 66 08/19/20 11:10 65 21 40 Intake and Output 08/20/20 08/21/20 19:00 07:00 Intake Total 1955 ml 1435 ml Output Total 1600 ml Balance 355 ml 1435 ml Free Water 110 ml 50 ml IV Total 1005 ml 755 ml Tube Feeding 840 ml 630 ml Output Urine Total 1500 ml Stool Total 100 ml Labs Test 08/19/20 04:30 08/20/20 05:00 08/20/20 09:20 08/21/20 04:00 White Blood Count 31.0 K/UL (4.8-10.8) 29.7 K/UL (4.8-10.8) 28.7 K/UL (4.8-10.8) Red Blood Count 2.29 M/UL (4.70-6.10) 2.12 M/UL (4.70-6.10) 2.01 M/UL (4.70-6.10) Hemoglobin 7.1 G/DL (14.2-18.0) 6.7 G/DL (14.2-18.0) 6.5 G/DL (14.2-18.0) Hematocrit 21.8 % (42.0-52.0) 20.3 % (42.0-52.0) 19.4 % (42.0-52.0) Mean Corpuscular Volume 95 FL (80-99) 96 FL (80-99) 97 FL (80-99) Mean Corpuscular Hemoglobin 31.1 PG (27.0-31.0) 31.8 PG (27.0-31.0) 32.4 PG (27.0-31.0) Mean Corpuscular Hemoglobin Concent 32.7 G/DL (32.0-36.0) 33.1 G/DL (32.0-36.0) 33.5 G/DL (32.0-36.0) Red Cell Distribution Width 16.9 % (11.6-14.8) 16.6 % (11.6-14.8) 17.1 % (11.6-14.8) Platelet Count 388 K/UL (150-450) 403 K/UL (150-450) 430 K/UL (150-450) Mean Platelet Volume 8.2 FL (6.5-10.1) 8.5 FL (6.5-10.1) 8.3 FL (6.5-10.1) Neutrophils (%) (Auto) % (45.0-75.0) % (45.0-75.0) % (45.0-75.0) Lymphocytes (%) (Auto) % (20.0-45.0) % (20.0-45.0) % (20.0-45.0) Monocytes (%) (Auto) % (1.0-10.0) % (1.0-10.0) % (1.0-10.0) Eosinophils (%) (Auto) % (0.0-3.0) % (0.0-3.0) % (0.0-3.0) Basophils (%) (Auto) % (0.0-2.0) % (0.0-2.0) % (0.0-2.0) Differential Total Cells Counted 100 100 Neutrophils % (Manual) 83 % (45-75) 68 % (45-75) Lymphocytes % (Manual) 10 % (20-45) 13 % (20-45) Monocytes % (Manual) 5 % (1-10) 11 % (1-10) Eosinophils % (Manual) 2 % (0-3) 8 % (0-3) Basophils % (Manual) 0 % (0-2) 0 % (0-2) Band Neutrophils 0 % (0-8) 0 % (0-8) Platelet Estimate Adequate Adequate Platelet Morphology Normal Normal Anisocytosis 1+ 1+ Sodium Level 146 MMOL/L (136-145) 144 MMOL/L (136-145) 149 MMOL/L (136-145) Potassium Level 3.7 MMOL/L (3.5-5.1) 3.9 MMOL/L (3.5-5.1) 3.6 MMOL/L (3.5-5.1) Chloride Level 114 MMOL/L (98-107) 115 MMOL/L (98-107) 117 MMOL/L (98-107) Carbon Dioxide Level 21 MMOL/L (21-32) 23 MMOL/L (21-32) 23 MMOL/L (21-32) Anion Gap 11 mmol/L (5-15) 7 mmol/L (5-15) 9 mmol/L (5-15) Blood Urea Nitrogen 25 mg/dL (7-18) 28 mg/dL (7-18) 30 mg/dL (7-18) Creatinine 1.1 MG/DL (0.55-1.30) 1.0 MG/DL (0.55-1.30) 1.0 MG/DL (0.55-1.30) Estimat Glomerular Filtration Rate > 60 mL/min (>60) > 60 mL/min (>60) > 60 mL/min (>60) Glucose Level 94 MG/DL (74-106) 116 MG/DL (74-106) 99 MG/DL (74-106) Calcium Level 8.0 MG/DL (8.5-10.1) 8.6 MG/DL (8.5-10.1) 8.4 MG/DL (8.5-10.1) Total Bilirubin 1.1 MG/DL (0.2-1.0) 1.0 MG/DL (0.2-1.0) 1.0 MG/DL (0.2-1.0) Direct Bilirubin 0.5 MG/DL (0.0-0.3) Aspartate Amino Transf (AST/SGOT) 65 U/L (15-37) 118 U/L (15-37) 102 U/L (15-37) Alanine Aminotransferase (ALT/SGPT) 54 U/L (12-78) 93 U/L (12-78) 100 U/L (12-78) Alkaline Phosphatase 491 U/L (46-116) 547 U/L (46-116) 509 U/L (46-116) Total Protein 7.2 G/DL (6.4-8.2) 7.0 G/DL (6.4-8.2) 6.8 G/DL (6.4-8.2) Albumin 2.0 G/DL (3.4-5.0) 2.0 G/DL (3.4-5.0) 2.0 G/DL (3.4-5.0) Globulin 5.2 g/dL 5.0 g/dL 4.8 g/dL Albumin/Globulin Ratio 0.4 (1.0-2.7) 0.4 (1.0-2.7) 0.4 (1.0-2.7) Random Vancomycin Level 15.7 ug/mL Hypochromasia 2+ Ammonia 42 umol/L (11-32) Height (Feet): 5 Height (Inches): 10.00 Weight (Pounds): 112 Objective Physical Exam General: alert, Chronically Ill Head: other - Large right-sided craniotomy defect well-heale ++, tracheotomy/vent Respiratory: crackles, rales, other - right side chest wall tenderness Cardiovascular: tachycardia Gastrointestinal: normal inspection, soft, gt++ Musk: decreased range of motion, other - atrophic, motor weakness Neurologic: alert, motor weakness, other - left hemineglect Psychiatric: normal inspection Skin: no rash : radha++ Roshan Castillo MD Aug 21, 2020 09:33
--- NOTE | 2020-08-21 09:54 | NUR ---
RD ASSESSMENT & RECOMMENDATIONS SEE CARE ACTIVITY FOR COMPLETE ASSESSMENT DAILY ESTIMATED NEEDS: Needs based on Underweight, Critical care/ 50.8kg 30-35 kcals/kg 2850-8802 total kcals 1.25-2 g protein/kg 64-102 g total protein 25-30 mL/kg 8588-2717 total fluid mLs NUTRITION DIAGNOSIS: Swallowing difficulty R/T respiratory status, dysphagia as evidenced by h/o craniotomy, trach/vent dep, PEG dep. CURRENT TF:Vital 1.2 @ 70ml/hr x 24 hrs ENTERAL NUTRITION RECOMMENDATIONS: Vital AF 1.2 @ 60ml/hr x 24 hrs to provide 1440ml, 1728kcal, 108g prot, 1168ml free water * LOWER goal rate to 60ml/hr x 24 hrs to not exceed est needs -> meets 100% est needs * HOB over 30 degrees/ water flush per MD ADDITIONAL RECOMMENDATIONS: * Maintain calibrated bedscale wt * Add probiotics for diarrhea, +rectal tube * Skin integrity: TF rec @ goal provides 100% RDI * Monitor lytes, replete as needed * Monitor BGs closely for hypo and hyperglycemia (no further episodes of hypoglycemia BG 67 on 08/16) .
--- NOTE | 2020-08-21 10:00 | NUR ---
NURSE NOTES: Morning medications administered per order. Tolerated well. Will closely monitor the patient. Will continue plan of care.
--- NOTE | 2020-08-21 10:40 | Infectious Diseases Prog Note ---
Assessment/Plan Assessment/Plan A: 1. MRSA sepsis. 2. Aspiration pneumonia MRSA, Pseudomonas & Serratia in culture COVID19 X 1: negative. 3. Leukemoid reaction. 4. Sickle cell disease. 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 VDRF 8. Femoral line infection, line removed 9. New Serratia sepsis PLAN: 1. Continue Cefepime X 2 days Subjective ROS Limited/Unobtainable: Yes Musculoskeletal: Denies: pain Allergies: Coded Allergies: ADHESIVE TAPE (Verified Allergy, Unknown, 07/20/20) Uncoded Allergies: TAPE (Allergy, Unknown, 08/07/20) Objective Last 24 Hour Vital Signs Date Time Temp Pulse Resp B/P (MAP) Pulse Ox O2 Delivery O2 Flow Rate FiO2 08/21/20 07:15 62 18 40 08/21/20 04:00 40 08/21/20 04:00 Mechanical Ventilator 08/21/20 04:00 98.4 64 17 120/67 (84) 100 08/21/20 03:45 64 08/21/20 03:20 64 18 40 08/21/20 00:34 98.1 63 18 122/67 (85) 100 08/21/20 00:00 Mechanical Ventilator 08/20/20 23:55 61 08/20/20 23:10 65 18 40 08/20/20 20:00 40 08/20/20 20:00 97.9 68 18 131/74 (93) 100 08/20/20 20:00 62 08/20/20 20:00 Mechanical Ventilator 08/20/20 19:50 64 18 40 08/20/20 16:00 99.1 56 18 123/70 (87) 100 08/20/20 16:00 Mechanical Ventilator 08/20/20 16:00 40 08/20/20 15:26 57 08/20/20 15:00 59 18 40 08/20/20 12:00 40 08/20/20 12:00 Mechanical Ventilator 08/20/20 12:00 99.9 77 18 132/75 (94) 100 08/20/20 11:31 79 08/20/20 11:05 80 23 100 Mechanical Ventilator 40 82 24 40 Height (Feet): 5 Height (Inches): 10.00 Weight (Pounds): 112 HEENT: status post trach, other - R craniotomy Respiratory/Chest: rhonchi - bilaterally, other - on ventilator Cardiovascular: normal rate, other - PICC line Abdomen: soft, non tender, other - GT feeding Extremities: no edema Neurologic/Psychiatric: alert, responsive Musculoskeletal: atrophy Laboratory Tests Test 08/21/20 04:00 White Blood Count 28.7 K/UL (4.8-10.8) *H Red Blood Count 2.01 M/UL (4.70-6.10) L Hemoglobin 6.5 G/DL (14.2-18.0) *L Hematocrit 19.4 % (42.0-52.0) L Mean Corpuscular Volume 97 FL (80-99) Mean Corpuscular Hemoglobin 32.4 PG (27.0-31.0) H Mean Corpuscular Hemoglobin Concent 33.5 G/DL (32.0-36.0) Red Cell Distribution Width 17.1 % (11.6-14.8) H Platelet Count 430 K/UL (150-450) Mean Platelet Volume 8.3 FL (6.5-10.1) Neutrophils (%) (Auto) % (45.0-75.0) Lymphocytes (%) (Auto) % (20.0-45.0) Monocytes (%) (Auto) % (1.0-10.0) Eosinophils (%) (Auto) % (0.0-3.0) Basophils (%) (Auto) % (0.0-2.0) Differential Total Cells Counted 100 Neutrophils % (Manual) 74 % (45-75) Lymphocytes % (Manual) 18 % (20-45) L Monocytes % (Manual) 5 % (1-10) Eosinophils % (Manual) 3 % (0-3) Basophils % (Manual) 0 % (0-2) Band Neutrophils 0 % (0-8) Platelet Estimate Adequate Platelet Morphology Normal Hypochromasia 1+ Anisocytosis 1+ Macrocytosis 1+ Sodium Level 149 MMOL/L (136-145) H Potassium Level 3.6 MMOL/L (3.5-5.1) Chloride Level 117 MMOL/L (98-107) H Carbon Dioxide Level 23 MMOL/L (21-32) Anion Gap 9 mmol/L (5-15) Blood Urea Nitrogen 30 mg/dL (7-18) H Creatinine 1.0 MG/DL (0.55-1.30) Estimat Glomerular Filtration Rate > 60 mL/min (>60) Glucose Level 99 MG/DL (74-106) Calcium Level 8.4 MG/DL (8.5-10.1) L Total Bilirubin 1.0 MG/DL (0.2-1.0) Aspartate Amino Transf (AST/SGOT) 102 U/L (15-37) H Alanine Aminotransferase (ALT/SGPT) 100 U/L (12-78) H Alkaline Phosphatase 509 U/L (46-116) H Total Protein 6.8 G/DL (6.4-8.2) Albumin 2.0 G/DL (3.4-5.0) L Globulin 4.8 g/dL Albumin/Globulin Ratio 0.4 (1.0-2.7) L Current Medications Medications (Trade) Dose Ordered Sig/Piedad Route PRN Reason Start Time Stop Time Status Last Admin Dose Admin Acetaminophen (Tylenol) 650 mg Q6H PRN GT Temp >100.5 08/10/20 20:20 09/09/20 20:19 08/19/20 21:48 Cefepime HCl 2 gm/ Dextrose 55 ml @ 110 mls/hr EVERY 12 HOURS IVPB 08/14/20 13:00 08/21/20 12:59 08/21/20 08:49 Chlorhexidine Gluconate (Christy-Hex 2%) 1 applic DAILY@2000 TOPIC 08/14/20 20:00 11/12/20 19:59 08/20/20 20:58 Dextrose 1,000 ml @ 75 mls/hr [id number] IV 08/21/20 07:45 08/22/20 06:00 08/21/20 08:47 Famotidine (Pepcid) 20 mg DAILY GT 08/11/20 09:00 11/06/20 08:59 08/21/20 08:47 Folic Acid (Folate) 1 mg DAILY GT 08/11/20 09:00 09/07/20 08:59 08/21/20 08:47 Heparin Sodium (Porcine) (Heparin 5000 units/ml) 5,000 units EVERY 12 HOURS SUBQ 08/10/20 21:00 09/22/20 20:59 08/19/20 10:36 Levetiracetam 100 ml @ 400 mls/hr Q12HR IVPB 08/14/20 10:00 11/12/20 09:59 08/21/20 08:48 Metoclopramide HCl (Reglan) 5 mg Q6H PRN IVP Nausea & Vomiting 08/13/20 22:15 09/12/20 22:14 Multivitamins (Multivitamins) 1 tab DAILY GT 08/11/20 09:00 09/07/20 08:59 08/21/20 08:47 Pantoprazole (Protonix) 40 mg EVERY 12 HOURS IVP 08/13/20 22:15 09/12/20 22:14 08/21/20 08:48 Sodium Bicarbonate 50 ml/ Dextrose/Sodium Chloride 1,050 ml @ 50 mls/hr Q21H IV 08/17/20 16:00 09/16/20 15:59 08/21/20 03:18 Wyatt Kemp MD Aug 21, 2020 10:40
[2020-08-21 12:00] VITALS: BP 126/75
--- NOTE | 2020-08-21 12:00 | NUR ---
NURSE NOTES: The patient is resting on the bed without acute distress or shortness of breath. Stable vital signs noted. Will closely monitor the patient. Will continue plan of care.
--- NOTE | 2020-08-21 13:00 | NUR ---
NURSE NOTES: No residual noted at this time. Increased TF to 30mL/hr. Will recheck residual in couple hours. Will continue plan of care.
--- NOTE | 2020-08-21 14:50 | NUR ---
RESPIRATORY NOTE: PT REMAINED STABLE ON CMV WITH CURRENT SETTINGS. SX PRN. AIRWAY IS SECURE AND PATENT. VENT CIRCUIT IS SECURE AND OUT OF THE WAY. NO S/S OF RESPIRATORY DISTRESS NOTED AT THIS TIME.
--- NOTE | 2020-08-21 15:00 | NUR ---
NURSE NOTES: The patient is resting on the bed without acute distress or shortness of breath. Stable vital signs noted. Tolerating vent setting, TF, Overton, and rectal tube well. Will closely monitor the patient. Will continue plan of care.
--- NOTE | 2020-08-21 15:27 | NUR ---
CASE MANAGEMENT:REVIEW 08/21/20 SI: MRSA SEPSIS. PNA. SICKLE CELL CRISIS TRACH/VENT DEPENDENT 97.6 54 18 118/66 100% ON VENT SUPPORT W/40% FIO2 WBC+28.7 H/H-6.5/19.4 BUN+30 AST/ALT+102/100 IS: [id number]/HR IVF+NAHCO3 @50/HR IV KEPPRA Q12 IV PROTONIX Q12 HEPARIN SQ Q12 : STEP DOWN UNIT DCP: FROM [facility]
[2020-08-21 16:00] VITALS: BP 119/69
--- NOTE | 2020-08-21 17:00 | NUR ---
NURSE NOTES: Bed bath given to the patient. Tolerated well. Will closely monitor the patient. Will continue plan of care.
--- NOTE | 2020-08-21 18:00 | NUR ---
NURSE NOTES: The patient is resting comfortably without acute distress or shortness of breath. No residual noted on TF rate of 30mL/hr. D5W @75mL/hr running per order on PICC line site. Tolerating vent setting, TF, PICC line, Overton, and rectal tube well. Will closely monitor the patient. Will continue plan of care.
--- NOTE | 2020-08-21 19:00 | NUR ---
RESPIRATORY NOTE: PT RECEIVED STABLE ON CMV WITH CURRENT SETTINGS. AIRWAY IS SECURE AND PATENT. VENT CIRCUIT IS SECURE AND OUT OF THE WAY. NO S/S OF RESPIRATORY DISTRESS NOTED AT THIS TIME. WILL CONTINUE TO MONITOR.
--- NOTE | 2020-08-21 19:30 | NUR ---
NURSE HAND-OFF REPORT: Important Events on Shift: Abnormal lab including hemoglobin of 6.5. Dr. Celaya notified but no transfusion per order. Patient Status: Stable, Full code Diet: GTF Vital AF 1.2 Goal @ 70mL/hr, now @ 30mL/hr Pending Orders: N Pending Results/Labs: N Pending MD notification: N Latest Vital Signs: Temperature 99.1 , Pulse 61 , B/P 119 /69 , Respiratory Rate 20 , O2 SAT 100 , Mechanical Ventilator, O2 Flow Rate . Vital Sign Comment: Stable EKG Rhythm: Sinus Rhythm Rhythm change?: N MD Notified?: N -Dr Regan JIMENEZ Response: Latest Stevens Fall Score: 50 Fall Risk: High Risk Safety Measures: Call light Within Reach, Bed Alarm Zone 2, Side Rails Side Rails x2, Bed position Low and Locked. Fall Precautions: Yellow Socks Yellow Gown Door Sign Patient Fall Education Report given to ARLYN Richard. The patient is stable at this time. Endorsed plan of care.
--- NOTE | 2020-08-21 19:30 | NUR ---
NURSE NOTES: Pt report received from NEISHA STODDARD. pt remains stable. pt is alert and oriented times 3, watching TV, no acute signs symptoms of neuro distress noted. pt is on pvc monitor showing SB at HR of 55 (doctors aware), no other acute cardiac abnormalities noted. pt is trach vented, sating 99% O2, no acute resp distress noted. pt bed is low, locked, armed, call light within reach, bed rails up times 3. will follow plan of care.
[2020-08-21 20:00] VITALS: BP 122/69
[2020-08-21] MEDS: Dyna-Hex 2% Top Sol 2oz TOPIC SCH (20:34)
--- NOTE | 2020-08-21 21:30 | NUR ---
NURSE NOTES: Pt is on his own personal phone talking to his family members.
--- NOTE | 2020-08-21 21:33 | General Progress Note ---
Subjective Allergies: Coded Allergies: ADHESIVE TAPE (Verified Allergy, Unknown, 07/20/20) Uncoded Allergies: TAPE (Allergy, Unknown, 08/07/20) Subjective above noted NAD , Calm d/w RN on TF some difficulty tolerating feeds Objective Last 24 Hour Vital Signs Date Time Temp Pulse Resp B/P (MAP) Pulse Ox O2 Delivery O2 Flow Rate FiO2 08/21/20 16:00 40 08/21/20 16:00 Mechanical Ventilator 08/21/20 16:00 56 08/21/20 16:00 56 08/21/20 16:00 99.1 61 20 119/69 (86) 100 08/21/20 16:00 99.1 61 20 119/69 (86) 100 08/21/20 15:40 55 18 40 08/21/20 12:00 40 08/21/20 12:00 99.1 62 20 126/75 (92) 99 08/21/20 12:00 99.1 62 20 126/75 (92) 99 08/21/20 12:00 60 08/21/20 12:00 60 08/21/20 12:00 Mechanical Ventilator 08/21/20 11:00 58 18 40 08/21/20 08:00 68 08/21/20 08:00 98.2 68 19 122/71 (88) 100 08/21/20 08:00 40 08/21/20 08:00 68 08/21/20 08:00 Mechanical Ventilator 08/21/20 08:00 98.2 68 19 122/71 (88) 100 08/21/20 07:15 62 18 40 08/21/20 04:00 40 08/21/20 04:00 Mechanical Ventilator 08/21/20 04:00 98.4 64 17 120/67 (84) 100 08/21/20 03:45 64 08/21/20 03:20 64 18 40 08/21/20 00:34 98.1 63 18 122/67 (85) 100 08/21/20 00:00 Mechanical Ventilator 08/20/20 23:55 61 08/20/20 23:10 65 18 40 Intake and Output 08/20/20 08/21/20 19:00 07:00 Intake Total 1955 ml 1465 ml Output Total 1600 ml Balance 355 ml 1465 ml Free Water 110 ml 80 ml IV Total 1005 ml 755 ml Tube Feeding 840 ml 630 ml Output Urine Total 1500 ml Stool Total 100 ml Laboratory Tests 08/21/20 04:00: White Blood Count 28.7*H, Red Blood Count 2.01L, Hemoglobin 6.5*L, Hematocrit 19.4L, Mean Corpuscular Volume 97, Mean Corpuscular Hemoglobin 32.4H, Mean Corpuscular Hemoglobin Concent 33.5, Red Cell Distribution Width 17.1H, Platelet Count 430, Mean Platelet Volume 8.3, Neutrophils (%) (Auto) , Lymphocytes (%) ( Auto) , Monocytes (%) (Auto) , Eosinophils (%) (Auto) , Basophils (%) (Auto) , Differential Total Cells Counted 100, Neutrophils % (Manual) 74, Lymphocytes % (Manual) 18L, Monocytes % (Manual) 5, Eosinophils % (Manual) 3, Basophils % ( Manual) 0, Band Neutrophils 0, Platelet Estimate Adequate, Platelet Morphology Normal, Hypochromasia 1+, Anisocytosis 1+, Macrocytosis 1+, Sodium Level 149H, Potassium Level 3.6, Chloride Level 117H, Carbon Dioxide Level 23, Anion Gap 9, Blood Urea Nitrogen 30H, Creatinine 1.0, Estimat Glomerular Filtration Rate > 60, Glucose Level 99, Calcium Level 8.4L, Total Bilirubin 1.0, Aspartate Amino Transf (AST/SGOT) 102H, Alanine Aminotransferase (ALT/SGPT) 100H, Alkaline Phosphatase 509H, Total Protein 6.8, Albumin 2.0L, Globulin 4.8, Albumin/Globulin Ratio 0.4L, Cytomegalovirus DNA Qual (PCR) [Pending] Height (Feet): 5 Height (Inches): 10.00 Weight (Pounds): 112 Objective Thin AA Man HEENT s/p craniotomy neck (+) trach Coarse BS RR/tachy abd soft (+) GT no edema 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 +/- sepsis - sickle cell crisis - severe anemia - transfuse PRN - hypotension - TF intolerance - leukocytosis/PNA/Sepsis - TF intolerance due to sepsis - seizure d/o - s/p trach and PEG - guarded Recommendations - Continue TF - follow residual - PPI - GT care - Elevate HOB - check GABINO/AMA/hepatitis serologies - negative - hydration - ATC reglan Khorrami,Payman MD Aug 21, 2020 21:33
[2020-08-21] MEDS ORDERED: Metoclopramide 10mg/2ml Inj IVP PRN (21:45)
[2020-08-22] VITALS: BP 120/65
--- NOTE | 2020-08-22 00:05 | NUR ---
NURSE NOTES: pt was turned, repositioned and cleaned.
--- NOTE | 2020-08-22 03:30 | NUR ---
NURSE NOTES: Lab/ blood drawn from pt. handed lab work to emergency medical technician basic to send down to lab.
[2020-08-22 04:00] VITALS: BP 135/74
[2020-08-22 04:53] LABS: ALANINE AMINOTRANSFERASE 91 U/L (12-78); ALBUMIN 2.2 G/DL (3.4-5.0); ALBUMIN/GLOBULIN RATIO 0.4 (1.0-2.7); ALKALINE PHOSPHATASE 508 U/L (46-116); ANION GAP 11 mmol/L (5-15); ASPARTATE AMINO TRANSFERASE 81 U/L (15-37); BILIRUBIN,TOTAL 1.1 MG/DL (0.2-1.0); BLOOD UREA NITROGEN 33 mg/dL (7-18); CALCIUM 9.1 MG/DL (8.5-10.1); CARBON DIOXIDE 21 MMOL/L (21-32); CHLORIDE 113 MMOL/L (98-107); POTASSIUM 3.9 MMOL/L (3.5-5.1); SODIUM 145 MMOL/L (136-145)
[2020-08-22 04:59] LABS: BILIRUBIN,DIRECT 0.4 MG/DL (0.0-0.3)
--- NOTE | 2020-08-22 07:30 | NUR ---
NURSE HAND-OFF REPORT: Important Events on Shift:[MONITORING VITAL SIGNS] Patient Status: [STABLE] Diet: [Tube feeding] Pending Orders: [NA] Pending Results/Labs:[NA] Pending MD notification:[NA] Latest Vital Signs: Temperature 97.7 , Pulse 60 , B/P 135 /74 , Respiratory Rate 20 , O2 SAT 98 , Mechanical Ventilator, O2 Flow Rate . Vital Sign Comment: [STABLE] EKG Rhythm: Sinus Rhythm Rhythm change?: N MD Notified?: N -Dr Regan JIMENEZ Response: Latest Stevens Fall Score: 50 Fall Risk: High Risk Safety Measures: Call light Within Reach, Bed Alarm Zone 2, Side Rails Side Rails x2, Bed position Low and Locked. Fall Precautions: Yellow Socks Yellow Gown Door Sign Patient Fall Education Report given to [NEISHA STODDARD].
--- NOTE | 2020-08-22 07:30 | NUR ---
NURSE NOTES: Received report from ARLYN Richard. Pt is resting on bed without acute distress or shortness of breath, awake and communicates via facial expression and body movements. Not in cardiopulmonary distress at this time. SB to SR with HR of 50-60 on line therapist. Pt is on trach and on ventilator with the following setting and oxygen saturartion is 100%: Shiley 6, AC 18, TV 450, FiO2 40%, and PEEP 0. SHER double lumen PICC Line is patent and intact and running D5W @ 75 mL/hr. GT is patent and intact with no residual and tube feeding running at Maureen AF 1.2 @ 40 mL/hr, with goal of 70 mL/hr. Urinary catheter is intact and patent and draining yellowish urine. Rectal tube is patent and intact and draining brown, soft stool. Skin issue noted and dressing intact. Bed is in lowest position, call light within reach, bed alarm is on, fall and aspiration and seizure precautions reinforced. Will follow up with the labs and orders. Will closely monitor the patient. Will continue plan of care.
--- NOTE | 2020-08-22 07:56 | Critical Care Progress Note ---
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 Port-A-Cath Status post removal of implanted right chest wall Port-A-Cath Sickle cell crisis Sickle cell anemia Chronic respiratory failure, ventilator dependent, with tracheostomy status Transaminitis Seizure disorder acute pneumonia leukocytosis recurrent sepsis PLAN care noted IV antibiotics reviewed respiratory care Ventilatory support- pressure control; maintain as is sedation as needed SNF meds supportive care suction no wean planned monitor wbc oxygen therapy and titrate prognosis guarded ID follow up and recommendations medications/laboratory data/nursing notes reviewed in detail note reviewed and edited care discussed with RN and RT Critical Care - Subjective Interval Events: care reviewed remains ill on vent ROS Limited/Unobtainable: Yes Condition: critical EKG Rhythm: Sinus Rhythm I&O: Intake and Output 08/21/20 08/22/20 19:00 07:00 Intake Total 350 ml 1405 ml Output Total 1200 ml 2000 ml Balance -850 ml -595 ml Free Water 60 ml IV Total 925 ml Tube Feeding 290 ml 480 ml Output Urine Total 1000 ml 2000 ml Stool Total 200 ml # Bowel Movements 1 Critical Care - Objective Last 24 Hour Vital Signs Date Time Temp Pulse Resp B/P (MAP) Pulse Ox O2 Delivery O2 Flow Rate FiO2 08/22/20 04:00 40 08/22/20 04:00 97.7 60 20 135/74 (94) 98 08/22/20 04:00 Mechanical Ventilator 08/22/20 04:00 72 08/22/20 03:25 64 18 40 08/22/20 00:00 98.0 61 20 120/65 (83) 97 08/22/20 00:00 40 08/22/20 00:00 63 08/22/20 00:00 Mechanical Ventilator 08/21/20 23:00 72 18 40 08/21/20 20:00 51 08/21/20 20:00 40 08/21/20 20:00 98.2 60 20 122/69 (86) 99 08/21/20 20:00 Mechanical Ventilator 08/21/20 19:00 53 18 40 08/21/20 16:00 40 08/21/20 16:00 Mechanical Ventilator 08/21/20 16:00 56 08/21/20 16:00 56 08/21/20 16:00 99.1 61 20 119/69 (86) 100 08/21/20 16:00 99.1 61 20 119/69 (86) 100 08/21/20 15:40 55 18 40 08/21/20 12:00 40 08/21/20 12:00 99.1 62 20 126/75 (92) 99 08/21/20 12:00 99.1 62 20 126/75 (92) 99 08/21/20 12:00 60 08/21/20 12:00 60 08/21/20 12:00 Mechanical Ventilator 08/21/20 11:00 58 18 40 08/21/20 08:00 68 08/21/20 08:00 98.2 68 19 122/71 (88) 100 08/21/20 08:00 40 08/21/20 08:00 68 08/21/20 08:00 Mechanical Ventilator 08/21/20 08:00 98.2 68 19 122/71 (88) 100 Labs: Labs Test 08/20/20 05:00 08/20/20 09:20 08/21/20 04:00 08/22/20 03:00 White Blood Count 29.7 K/UL (4.8-10.8) 28.7 K/UL (4.8-10.8) Red Blood Count 2.12 M/UL (4.70-6.10) 2.01 M/UL (4.70-6.10) Hemoglobin 6.7 G/DL (14.2-18.0) 6.5 G/DL (14.2-18.0) Hematocrit 20.3 % (42.0-52.0) 19.4 % (42.0-52.0) Mean Corpuscular Volume 96 FL (80-99) 97 FL (80-99) Mean Corpuscular Hemoglobin 31.8 PG (27.0-31.0) 32.4 PG (27.0-31.0) Mean Corpuscular Hemoglobin Concent 33.1 G/DL (32.0-36.0) 33.5 G/DL (32.0-36.0) Red Cell Distribution Width 16.6 % (11.6-14.8) 17.1 % (11.6-14.8) Platelet Count 403 K/UL (150-450) 430 K/UL (150-450) Mean Platelet Volume 8.5 FL (6.5-10.1) 8.3 FL (6.5-10.1) Neutrophils (%) (Auto) % (45.0-75.0) % (45.0-75.0) Lymphocytes (%) (Auto) % (20.0-45.0) % (20.0-45.0) Monocytes (%) (Auto) % (1.0-10.0) % (1.0-10.0) Eosinophils (%) (Auto) % (0.0-3.0) % (0.0-3.0) Basophils (%) (Auto) % (0.0-2.0) % (0.0-2.0) Differential Total Cells Counted 100 100 Neutrophils % (Manual) 68 % (45-75) 74 % (45-75) Lymphocytes % (Manual) 13 % (20-45) 18 % (20-45) Monocytes % (Manual) 11 % (1-10) 5 % (1-10) Eosinophils % (Manual) 8 % (0-3) 3 % (0-3) Basophils % (Manual) 0 % (0-2) 0 % (0-2) Band Neutrophils 0 % (0-8) 0 % (0-8) Platelet Estimate Adequate Adequate Platelet Morphology Normal Normal Hypochromasia 2+ 1+ Anisocytosis 1+ 1+ Sodium Level 144 MMOL/L (136-145) 149 MMOL/L (136-145) 145 MMOL/L (136-145) Potassium Level 3.9 MMOL/L (3.5-5.1) 3.6 MMOL/L (3.5-5.1) 3.9 MMOL/L (3.5-5.1) Chloride Level 115 MMOL/L (98-107) 117 MMOL/L (98-107) 113 MMOL/L (98-107) Carbon Dioxide Level 23 MMOL/L (21-32) 23 MMOL/L (21-32) 21 MMOL/L (21-32) Anion Gap 7 mmol/L (5-15) 9 mmol/L (5-15) 11 mmol/L (5-15) Blood Urea Nitrogen 28 mg/dL (7-18) 30 mg/dL (7-18) 33 mg/dL (7-18) Creatinine 1.0 MG/DL (0.55-1.30) 1.0 MG/DL (0.55-1.30) 1.0 MG/DL (0.55-1.30) Estimat Glomerular Filtration Rate > 60 mL/min (>60) > 60 mL/min (>60) > 60 mL/min (>60) Glucose Level 116 MG/DL (74-106) 99 MG/DL (74-106) 93 MG/DL (74-106) Calcium Level 8.6 MG/DL (8.5-10.1) 8.4 MG/DL (8.5-10.1) 9.1 MG/DL (8.5-10.1) Total Bilirubin 1.0 MG/DL (0.2-1.0) 1.0 MG/DL (0.2-1.0) 1.1 MG/DL (0.2-1.0) Aspartate Amino Transf (AST/SGOT) 118 U/L (15-37) 102 U/L (15-37) 81 U/L (15-37) Alanine Aminotransferase (ALT/SGPT) 93 U/L (12-78) 100 U/L (12-78) 91 U/L (12-78) Alkaline Phosphatase 547 U/L (46-116) 509 U/L (46-116) 508 U/L (46-116) Total Protein 7.0 G/DL (6.4-8.2) 6.8 G/DL (6.4-8.2) 7.4 G/DL (6.4-8.2) Albumin 2.0 G/DL (3.4-5.0) 2.0 G/DL (3.4-5.0) 2.2 G/DL (3.4-5.0) Globulin 5.0 g/dL 4.8 g/dL 5.2 g/dL Albumin/Globulin Ratio 0.4 (1.0-2.7) 0.4 (1.0-2.7) 0.4 (1.0-2.7) Ammonia 42 umol/L (11-32) Macrocytosis 1+ Direct Bilirubin 0.4 MG/DL (0.0-0.3) Objective: WDWN NAD reduced breath sounds bilaterally without rhonchi or wheeze [id number] without MRG NABS nontender GT no CCE reduced LOC James Nuñez MD Aug 22, 2020 07:56
[2020-08-22 08:00] VITALS: BP 127/67
--- NOTE | 2020-08-22 08:00 | NUR ---
NURSE NOTES: Initial nursing assessment done. Initial vital signs taken. The patient is stable at this time. Will continue plan of care.
--- NOTE | 2020-08-22 08:10 | NUR ---
NURSE NOTES: Dr. Celaya ordered stat CBC to be done today. Will carry out the order as soon as possible. Will continue plan of care.
[2020-08-22 08:33] LABS: HEMATOCRIT 20.8 % (42.0-52.0); MEAN CORPUSCULAR VOLUME 97 FL (80-99); PLATELET COUNT 473 K/UL (150-450); RED BLOOD COUNT 2.14 M/UL (4.70-6.10); RED CELL DISTRIBUTION WIDTH 16.9 % (11.6-14.8)
[2020-08-22 08:41] LABS: HEMOGLOBIN 6.8 G/DL (14.2-18.0)
--- NOTE | 2020-08-22 08:49 | Hematology/Onc Progress Note ---
Assessment/Plan Assessment/Plan Assessment and Recs # Sickle cell crisis noted upon admission, with hx of sickle cell anemia --> hgb 6.5-->7.1-->6.6->>>>7.3-->7.1 -->6.7-->6.5-->6.8 --> 1 unit prbc on 07/23 --> ivfs have been started --> anemia panel ordered, with elev ferritin --> recommend to consider hydrea when discharged if stable --> likely does have mild hemolysis --> hgb electrophoresis show evidence of sickle cell trait # Hyperferritinemia with elevated ferritin that was noted --> likely consider exjade once discharged though at this time not limiting --> ferritin can >2000 with recurrent transfusions --> trend over time, for EOD observe # Leukocytosis poa with Severe sepsis due to line infection --> abx: vancomycin-->cefepime/colistin-->cefepime --> wbc 25-->31-->29-->25 # Respiratory failure s/p Ventilator dependent --> as per pulm, vent adjustment # Port-A-Cath in place --> s/p abx --> s/p permacath removal # Transaminitis -->liver function elevated --> per gi # Dt ppx heparin sq The timing of this note does not necessarily reflect the time of the patient was seen. Greatly appreciate consultation. Subjective Allergies: Coded Allergies: ADHESIVE TAPE (Verified Allergy, Unknown, 07/20/20) Uncoded Allergies: TAPE (Allergy, Unknown, 08/07/20) All Systems: reviewed and negative except above Subjective 08/19 no acute events, vent, iv abx, labs reviewed 08/20 labs reviewed, seen by Dr. Celaya and mychal Rn, holding off prbc 08/21 remains on abx with persistently elev wbc, on abx broad spectrum 08/22 labs reviewed, no bleeding, meds noted, wbc still 25k, hgb 6.8, transfuse pr Objective Objective Current Medications Medications (Trade) Dose Ordered Sig/Piedad Route PRN Reason Start Time Stop Time Status Last Admin Dose Admin Acetaminophen (Tylenol) 650 mg Q6H PRN GT Temp >100.5 08/10/20 20:20 09/09/20 20:19 08/19/20 21:48 Chlorhexidine Gluconate (Christy-Hex 2%) 1 applic DAILY@2000 TOPIC 08/14/20 20:00 11/12/20 19:59 08/21/20 20:34 Famotidine (Pepcid) 20 mg DAILY GT 08/11/20 09:00 11/06/20 08:59 08/21/20 08:47 Folic Acid (Folate) 1 mg DAILY GT 08/11/20 09:00 09/07/20 08:59 08/21/20 08:47 Heparin Sodium (Porcine) (Heparin 5000 units/ml) 5,000 units EVERY 12 HOURS SUBQ 08/10/20 21:00 09/22/20 20:59 08/19/20 10:36 Levetiracetam 100 ml @ 400 mls/hr Q12HR IVPB 08/14/20 10:00 11/12/20 09:59 08/21/20 20:34 Metoclopramide HCl (Reglan) 10 mg Q6H PRN IVP Nausea & Vomiting 08/21/20 21:45 09/20/20 21:44 Multivitamins (Multivitamins) 1 tab DAILY GT 08/11/20 09:00 09/07/20 08:59 08/21/20 08:47 Pantoprazole (Protonix) 40 mg EVERY 12 HOURS IVP 08/13/20 22:15 09/12/20 22:14 08/21/20 20:34 Last 24 Hour Vital Signs Date Time Temp Pulse Resp B/P (MAP) Pulse Ox O2 Delivery O2 Flow Rate FiO2 08/22/20 04:00 40 08/22/20 04:00 97.7 60 20 135/74 (94) 98 08/22/20 04:00 Mechanical Ventilator 08/22/20 04:00 72 08/22/20 03:25 64 18 40 08/22/20 00:00 98.0 61 20 120/65 (83) 97 08/22/20 00:00 40 08/22/20 00:00 63 08/22/20 00:00 Mechanical Ventilator 08/21/20 23:00 72 18 40 08/21/20 20:00 51 08/21/20 20:00 40 08/21/20 20:00 98.2 60 20 122/69 (86) 99 08/21/20 20:00 Mechanical Ventilator 08/21/20 19:00 53 18 40 08/21/20 16:00 40 08/21/20 16:00 Mechanical Ventilator 08/21/20 16:00 56 08/21/20 16:00 56 08/21/20 16:00 99.1 61 20 119/69 (86) 100 08/21/20 16:00 99.1 61 20 119/69 (86) 100 08/21/20 15:40 55 18 40 08/21/20 12:00 40 08/21/20 12:00 99.1 62 20 126/75 (92) 99 08/21/20 12:00 99.1 62 20 126/75 (92) 99 08/21/20 12:00 60 08/21/20 12:00 60 08/21/20 12:00 Mechanical Ventilator 08/21/20 11:00 58 18 40 08/21/20 08:00 68 08/21/20 08:00 98.2 68 19 122/71 (88) 100 08/21/20 08:00 40 08/21/20 08:00 68 08/21/20 08:00 Mechanical Ventilator 08/21/20 08:00 98.2 68 19 122/71 (88) 100 08/21/20 07:15 62 18 40 08/21/20 04:00 40 08/21/20 04:00 Mechanical Ventilator 08/21/20 04:00 98.4 64 17 120/67 (84) 100 08/21/20 03:45 64 08/21/20 03:20 64 18 40 08/21/20 00:34 98.1 63 18 122/67 (85) 100 08/21/20 00:00 Mechanical Ventilator 08/20/20 23:55 61 08/20/20 23:10 65 18 40 08/20/20 20:00 40 08/20/20 20:00 97.9 68 18 131/74 (93) 100 08/20/20 20:00 62 08/20/20 20:00 Mechanical Ventilator 08/20/20 19:50 64 18 40 08/20/20 16:00 99.1 56 18 123/70 (87) 100 08/20/20 16:00 Mechanical Ventilator 08/20/20 16:00 40 08/20/20 15:26 57 9/20/20 15:00 59 18 40 08/20/20 12:00 40 08/20/20 12:00 Mechanical Ventilator 08/20/20 12:00 99.9 77 18 132/75 (94) 100 08/20/20 11:31 79 08/20/20 11:05 80 23 100 Mechanical Ventilator 40 82 24 40 08/20/20 09:00 40 Intake and Output 08/21/20 08/22/20 19:00 07:00 Intake Total 350 ml 1405 ml Output Total 1200 ml 2000 ml Balance -850 ml -595 ml Free Water 60 ml IV Total 925 ml Tube Feeding 290 ml 480 ml Output Urine Total 1000 ml 2000 ml Stool Total 200 ml # Bowel Movements 1 Labs Test 08/20/20 05:00 08/20/20 09:20 08/21/20 04:00 08/22/20 03:00 White Blood Count 29.7 K/UL (4.8-10.8) 28.7 K/UL (4.8-10.8) Red Blood Count 2.12 M/UL (4.70-6.10) 2.01 M/UL (4.70-6.10) Hemoglobin 6.7 G/DL (14.2-18.0) 6.5 G/DL (14.2-18.0) Hematocrit 20.3 % (42.0-52.0) 19.4 % (42.0-52.0) Mean Corpuscular Volume 96 FL (80-99) 97 FL (80-99) Mean Corpuscular Hemoglobin 31.8 PG (27.0-31.0) 32.4 PG (27.0-31.0) Mean Corpuscular Hemoglobin Concent 33.1 G/DL (32.0-36.0) 33.5 G/DL (32.0-36.0) Red Cell Distribution Width 16.6 % (11.6-14.8) 17.1 % (11.6-14.8) Platelet Count 403 K/UL (150-450) 430 K/UL (150-450) Mean Platelet Volume 8.5 FL (6.5-10.1) 8.3 FL (6.5-10.1) Neutrophils (%) (Auto) % (45.0-75.0) % (45.0-75.0) Lymphocytes (%) (Auto) % (20.0-45.0) % (20.0-45.0) Monocytes (%) (Auto) % (1.0-10.0) % (1.0-10.0) Eosinophils (%) (Auto) % (0.0-3.0) % (0.0-3.0) Basophils (%) (Auto) % (0.0-2.0) % (0.0-2.0) Differential Total Cells Counted 100 100 Neutrophils % (Manual) 68 % (45-75) 74 % (45-75) Lymphocytes % (Manual) 13 % (20-45) 18 % (20-45) Monocytes % (Manual) 11 % (1-10) 5 % (1-10) Eosinophils % (Manual) 8 % (0-3) 3 % (0-3) Basophils % (Manual) 0 % (0-2) 0 % (0-2) Band Neutrophils 0 % (0-8) 0 % (0-8) Platelet Estimate Adequate Adequate Platelet Morphology Normal Normal Hypochromasia 2+ 1+ Anisocytosis 1+ 1+ Sodium Level 144 MMOL/L (136-145) 149 MMOL/L (136-145) 145 MMOL/L (136-145) Potassium Level 3.9 MMOL/L (3.5-5.1) 3.6 MMOL/L (3.5-5.1) 3.9 MMOL/L (3.5-5.1) Chloride Level 115 MMOL/L (98-107) 117 MMOL/L (98-107) 113 MMOL/L (98-107) Carbon Dioxide Level 23 MMOL/L (21-32) 23 MMOL/L (21-32) 21 MMOL/L (21-32) Anion Gap 7 mmol/L (5-15) 9 mmol/L (5-15) 11 mmol/L (5-15) Blood Urea Nitrogen 28 mg/dL (7-18) 30 mg/dL (7-18) 33 mg/dL (7-18) Creatinine 1.0 MG/DL (0.55-1.30) 1.0 MG/DL (0.55-1.30) 1.0 MG/DL (0.55-1.30) Estimat Glomerular Filtration Rate > 60 mL/min (>60) > 60 mL/min (>60) > 60 mL/min (>60) Glucose Level 116 MG/DL (74-106) 99 MG/DL (74-106) 93 MG/DL (74-106) Calcium Level 8.6 MG/DL (8.5-10.1) 8.4 MG/DL (8.5-10.1) 9.1 MG/DL (8.5-10.1) Total Bilirubin 1.0 MG/DL (0.2-1.0) 1.0 MG/DL (0.2-1.0) 1.1 MG/DL (0.2-1.0) Aspartate Amino Transf (AST/SGOT) 118 U/L (15-37) 102 U/L (15-37) 81 U/L (15-37) Alanine Aminotransferase (ALT/SGPT) 93 U/L (12-78) 100 U/L (12-78) 91 U/L (12-78) Alkaline Phosphatase 547 U/L (46-116) 509 U/L (46-116) 508 U/L (46-116) Total Protein 7.0 G/DL (6.4-8.2) 6.8 G/DL (6.4-8.2) 7.4 G/DL (6.4-8.2) Albumin 2.0 G/DL (3.4-5.0) 2.0 G/DL (3.4-5.0) 2.2 G/DL (3.4-5.0) Globulin 5.0 g/dL 4.8 g/dL 5.2 g/dL Albumin/Globulin Ratio 0.4 (1.0-2.7) 0.4 (1.0-2.7) 0.4 (1.0-2.7) Ammonia 42 umol/L (11-32) Macrocytosis 1+ Direct Bilirubin 0.4 MG/DL (0.0-0.3) Test 08/22/20 03:10 White Blood Count 25.0 K/UL (4.8-10.8) Red Blood Count 2.14 M/UL (4.70-6.10) Hemoglobin 6.8 G/DL (14.2-18.0) Hematocrit 20.8 % (42.0-52.0) Mean Corpuscular Volume 97 FL (80-99) Mean Corpuscular Hemoglobin 31.6 PG (27.0-31.0) Mean Corpuscular Hemoglobin Concent 32.4 G/DL (32.0-36.0) Red Cell Distribution Width 16.9 % (11.6-14.8) Platelet Count 473 K/UL (150-450) Mean Platelet Volume 7.9 FL (6.5-10.1) Neutrophils (%) (Auto) % (45.0-75.0) Lymphocytes (%) (Auto) % (20.0-45.0) Monocytes (%) (Auto) % (1.0-10.0) Eosinophils (%) (Auto) % (0.0-3.0) Basophils (%) (Auto) % (0.0-2.0) Height (Feet): 5 Height (Inches): 10.00 Weight (Pounds): 112 Objective Physical Exam General: alert, Chronically Ill Head: other - Large right-sided craniotomy defect well-heale ++, tracheotomy/vent Respiratory: crackles, rales, other - right side chest wall tenderness Cardiovascular: tachycardia Gastrointestinal: normal inspection, soft, gt++ Musk: decreased range of motion, other - atrophic, motor weakness Neurologic: alert, motor weakness, other - left hemineglect Psychiatric: normal inspection Skin: no rash : radha++ Roshan Castillo MD Aug 22, 2020 08:49
--- NOTE | 2020-08-22 08:59 | General Progress Note ---
Subjective ROS Limited/Unobtainable: No Constitutional: Reports: malaise, weakness HEENT: Reports: no symptoms Cardiovascular: Reports: no symptoms Respiratory: Reports: sputum Gastrointestinal/Abdominal: Reports: difficulty swallowing Genitourinary: Reports: no symptoms Neurologic/Psychiatric: Reports: pre-existing deficit, seizure Endocrine: Reports: no symptoms Hematologic/Lymphatic: Reports: anemia Allergies: Coded Allergies: ADHESIVE TAPE (Verified Allergy, Unknown, 07/20/20) Uncoded Allergies: TAPE (Allergy, Unknown, 08/07/20) All Systems: reviewed and negative except above Subjective no change, stable. on the vent. no fevers. no szs. d/w family who visited pt yesterday. mental status is improving. Objective Last 24 Hour Vital Signs Date Time Temp Pulse Resp B/P (MAP) Pulse Ox O2 Delivery O2 Flow Rate FiO2 08/22/20 04:00 40 08/22/20 04:00 97.7 60 20 135/74 (94) 98 08/22/20 04:00 Mechanical Ventilator 08/22/20 04:00 72 08/22/20 03:25 64 18 40 08/22/20 00:00 98.0 61 20 120/65 (83) 97 08/22/20 00:00 40 08/22/20 00:00 63 08/22/20 00:00 Mechanical Ventilator 08/21/20 23:00 72 18 40 08/21/20 20:00 51 08/21/20 20:00 40 08/21/20 20:00 98.2 60 20 122/69 (86) 99 08/21/20 20:00 Mechanical Ventilator 08/21/20 19:00 53 18 40 08/21/20 16:00 40 08/21/20 16:00 Mechanical Ventilator 08/21/20 16:00 56 08/21/20 16:00 56 08/21/20 16:00 99.1 61 20 119/69 (86) 100 08/21/20 16:00 99.1 61 20 119/69 (86) 100 08/21/20 15:40 55 18 40 08/21/20 12:00 40 08/21/20 12:00 99.1 62 20 126/75 (92) 99 08/21/20 12:00 99.1 62 20 126/75 (92) 99 08/21/20 12:00 60 08/21/20 12:00 60 08/21/20 12:00 Mechanical Ventilator 08/21/20 11:00 58 18 40 Intake and Output 08/21/20 08/22/20 19:00 07:00 Intake Total 350 ml 1405 ml Output Total 1200 ml 2000 ml Balance -850 ml -595 ml Free Water 60 ml IV Total 925 ml Tube Feeding 290 ml 480 ml Output Urine Total 1000 ml 2000 ml Stool Total 200 ml # Bowel Movements 1 Laboratory Tests 08/22/20 03:00: Sodium Level 145, Potassium Level 3.9, Chloride Level 113H, Carbon Dioxide Level 21, Anion Gap 11, Blood Urea Nitrogen 33H, Creatinine 1.0, Estimat Glomerular Filtration Rate > 60, Glucose Level 93, Calcium Level 9.1, Total Bilirubin 1.1H, Direct Bilirubin 0.4H, Aspartate Amino Transf (AST/SGOT) 81H, Alanine Aminotransferase (ALT/SGPT) 91H, Alkaline Phosphatase 508H, Total Protein 7.4, Albumin 2.2L, Globulin 5.2, Albumin/Globulin Ratio 0.4L 08/22/20 03:10: White Blood Count 25.0*H, Red Blood Count 2.14L, Hemoglobin 6.8*L, Hematocrit 20.8L, Mean Corpuscular Volume 97, Mean Corpuscular Hemoglobin 31.6H, Mean Corpuscular Hemoglobin Concent 32.4, Red Cell Distribution Width 16.9H, Platelet Count 473H, Mean Platelet Volume 7.9, Neutrophils (%) (Auto) , Lymphocytes (%) (Auto) , Monocytes (%) (Auto) , Eosinophils (%) (Auto) , Basophils (%) (Auto) , Neutrophils % (Manual) [Pending], Lymphocytes % (Manual) [Pending], Platelet Estimate [Pending], Platelet Morphology [Pending] Height (Feet): 5 Height (Inches): 10.00 Weight (Pounds): 112 Objective General Appearance: WD/WN, lethargic EENT: normal ENT inspection Neck: normal alignment Cardiovascular: normal peripheral pulses, normal rate Respiratory/Chest: chest wall non-tender, lungs clear, normal breath sounds Abdomen: normal bowel sounds, non tender, soft, no organomegaly Edema: no edema noted Arm (L), no edema noted Arm (R) Neurologic: unresponsive Assessment/Plan Problem List: (1) Pneumonia ICD Codes: J18.9 - Pneumonia, unspecified organism SNOMED: 476158927 Qualifiers: Qualified Codes: J18.9 - Pneumonia, unspecified organism (2) Sickle cell anemia ICD Codes: D57.1 - Sickle-cell disease without crisis SNOMED: 931678270 Qualifiers: Qualified Codes: D57.00 - Hb-SS disease with crisis, unspecified (3) Severe sepsis ICD Codes: A41.9 - Sepsis, unspecified organism; R65.20 - Severe sepsis without septic shock SNOMED: 42427210 Status: stable, not improved Assessment/Plan: neuro checks lactulose prn ivf as needed cont vent support resp care gt feeds iv abx per ID follow up albs monitor h/h transfuse as needed PPI rx eeg- no szs keppra rx family requesting referral to Lalo Urena MD Aug 22, 2020 08:59
[2020-08-22] MEDS: Heparin 5000 units/ml inj SUBQ SCH ×2 (09:00→20:11)
[2020-08-22] MEDS: Pantoprazole Inj IVP SCH ×2 (09:35→20:15)
[2020-08-22] MEDS: levETIRAcetam 1,000mg/NS100ml 100 ML IVPB SCH ×2 (09:36→20:15)
--- NOTE | 2020-08-22 10:00 | NUR ---
NURSE NOTES: Morning medications administered per order. Tolerated well. Tolerating tube feeding, vent setting well. No seizure noted. Will continue plan of care.
--- NOTE | 2020-08-22 10:10 | NUR ---
NURSE NOTES: Dr. Celaya was notified regarding abnormal lab including downtrending WBC and uptrending Hgb. No new order at this time. Will closely monitor the patient. Will continue plan of care.
--- NOTE | 2020-08-22 10:50 | NUR ---
NURSE NOTES: Dr. Degroot at the bedside assessed the patient. Notified critical WBC, and on and off of fever. Also notified difference in note and medication. Per Dr. Kemp's note, continue Cefepime 2gm for 2 more days but discontinued on the medication list. Per Dr. Degroot, she will review and follow up. Will closely monitor the patient. Will continue plan of care.
--- NOTE | 2020-08-22 11:31 | NUR ---
*-*DISCHARGE PLANNING*-* PATIENT HAS BEEN REFERRED TO: [facility] P: [phone] Addendum: 08/22/20 at 1233 by ALLEN ANAYA FILM LIBRARIAN FILM LIBRARIAN THIS [employer] FAXED [facility] TRANSFER ORDER TO [facility]. [facility] BLIND TE[employer]ER WILL PRESENT REQUEST TO HER IT APPLICATIONS MANAGER
--- NOTE | 2020-08-22 11:33 | Infectious Diseases Prog Note ---
"Assessment/Plan Assessment/Plan antibiotics : cefepime A 1. MRSA | serratia sepsis s/p catheter removal 2. MRSA | serratia | pseudomonas pneumonia 3. respiratory failure 4. sickle cell disease 5. anemia 6. leucocytosis improving 7. seizures P 1. continue cefepime 1 more day 2. will follow up cultures Subjective ROS Limited/Unobtainable: Yes Allergies: Coded Allergies: ADHESIVE TAPE (Verified Allergy, Unknown, 07/20/20) Uncoded Allergies: TAPE (Allergy, Unknown, 08/07/20) Objective Last 24 Hour Vital Signs Date Time Temp Pulse Resp B/P (MAP) Pulse Ox O2 Delivery O2 Flow Rate FiO2 08/22/20 08:00 54 08/22/20 08:00 97.9 52 18 127/67 (87) 100 08/22/20 07:25 54 18 40 08/22/20 04:00 40 08/22/20 04:00 97.7 60 20 135/74 (94) 98 08/22/20 04:00 Mechanical Ventilator 08/22/20 04:00 72 08/22/20 03:25 64 18 40 08/22/20 00:00 98.0 61 20 120/65 (83) 97 08/22/20 00:00 40 08/22/20 00:00 63 08/22/20 00:00 Mechanical Ventilator 08/21/20 23:00 72 18 40 08/21/20 20:00 51 08/21/20 20:00 40 08/21/20 20:00 98.2 60 20 122/69 (86) 99 08/21/20 20:00 Mechanical Ventilator 08/21/20 19:00 53 18 40 08/21/20 16:00 40 08/21/20 16:00 Mechanical Ventilator 08/21/20 16:00 56 08/21/20 16:00 56 08/21/20 16:00 99.1 61 20 119/69 (86) 100 08/21/20 16:00 99.1 61 20 119/69 (86) 100 08/21/20 15:40 55 18 40 08/21/20 12:00 40 08/21/20 12:00 99.1 62 20 126/75 (92) 99 08/21/20 12:00 99.1 62 20 126/75 (92) 99 08/21/20 12:00 60 08/21/20 12:00 60 08/21/20 12:00 Mechanical Ventilator Height (Feet): 5 Height (Inches): 10.00 Weight (Pounds): 112 HEENT: status post trach Respiratory/Chest: lungs clear Cardiovascular: normal rate, regular rhythm, no gallop/murmur Abdomen: soft, non tender, other - GT Extremities: no edema, other - right arm PICC Laboratory Tests Test 08/22/20 03:00 08/22/20 03:10 Sodium Level 145 MMOL/L (136-145) Potassium Level 3.9 MMOL/L (3.5-5.1) Chloride Level 113 MMOL/L (98-107) H Carbon Dioxide Level 21 MMOL/L (21-32) Anion Gap 11 mmol/L (5-15) Blood Urea Nitrogen 33 mg/dL (7-18) H Creatinine 1.0 MG/DL (0.55-1.30) Estimat Glomerular Filtration Rate > 60 mL/min (>60) Glucose Level 93 MG/DL (74-106) Calcium Level 9.1 MG/DL (8.5-10.1) Total Bilirubin 1.1 MG/DL (0.2-1.0) H Direct Bilirubin 0.4 MG/DL (0.0-0.3) H Aspartate Amino Transf (AST/SGOT) 81 U/L (15-37) H Alanine Aminotransferase (ALT/SGPT) 91 U/L (12-78) H Alkaline Phosphatase 508 U/L (46-116) H Total Protein 7.4 G/DL (6.4-8.2) Albumin 2.2 G/DL (3.4-5.0) L Globulin 5.2 g/dL Albumin/Globulin Ratio 0.4 (1.0-2.7) L White Blood Count 25.0 K/UL (4.8-10.8) *H Red Blood Count 2.14 M/UL (4.70-6.10) L Hemoglobin 6.8 G/DL (14.2-18.0) *L Hematocrit 20.8 % (42.0-52.0) L Mean Corpuscular Volume 97 FL (80-99) Mean Corpuscular Hemoglobin 31.6 PG (27.0-31.0) H Mean Corpuscular Hemoglobin Concent 32.4 G/DL (32.0-36.0) Red Cell Distribution Width 16.9 % (11.6-14.8) H Platelet Count 473 K/UL (150-450) H Mean Platelet Volume 7.9 FL (6.5-10.1) Neutrophils (%) (Auto) % (45.0-75.0) Lymphocytes (%) (Auto) % (20.0-45.0) Monocytes (%) (Auto) % (1.0-10.0) Eosinophils (%) (Auto) % (0.0-3.0) Basophils (%) (Auto) % (0.0-2.0) Differential Total Cells Counted 100 Neutrophils % (Manual) 67 % (45-75) Lymphocytes % (Manual) 16 % (20-45) L Monocytes % (Manual) 7 % (1-10) Eosinophils % (Manual) 10 % (0-3) H Basophils % (Manual) 0 % (0-2) Band Neutrophils 0 % (0-8) Nucleated Red Blood Cells 1 /100 WBC Platelet Estimate Increased H Platelet Morphology Normal Anisocytosis 1+ Current Medications Medications (Trade) Dose Ordered Sig/Piedad Route PRN Reason Start Time Stop Time Status Last Admin Dose Admin Acetaminophen (Tylenol) 650 mg Q6H PRN GT Temp >100.5 08/10/20 20:20 09/09/20 20:19 08/19/20 21:48 Chlorhexidine Gluconate (Christy-Hex 2%) 1 applic DAILY@2000 TOPIC 08/14/20 20:00 11/12/20 19:59 08/21/20 20:34 Famotidine (Pepcid) 20 mg DAILY GT 08/11/20 09:00 11/06/20 08:59 08/22/20 09:36 Folic Acid (Folate) 1 mg DAILY GT 08/11/20 09:00 09/07/20 08:59 08/22/20 09:35 Heparin Sodium (Porcine) (Heparin 5000 units/ml) 5,000 units EVERY 12 HOURS SUBQ 08/10/20 21:00 09/22/20 20:59 08/19/20 10:36 Levetiracetam 100 ml @ 400 mls/hr Q12HR IVPB 08/14/20 10:00 11/12/20 09:59 08/22/20 09:36 Metoclopramide HCl (Reglan) 10 mg Q6H PRN IVP Nausea & Vomiting 08/21/20 21:45 09/20/20 21:44 Multivitamins (Multivitamins) 1 tab DAILY GT 08/11/20 09:00 09/07/20 08:59 08/22/20 09:35 Pantoprazole (Protonix) 40 mg EVERY 12 HOURS IVP 08/13/20 22:15 09/12/20 22:14 08/22/20 09:35 Isabelle Degroot MD Aug 22, 2020 11:33"
[2020-08-22] MEDS: Cefepime HCl 1 GM in D5W 55 ML IVPB SCH ×2 (11:59→20:58)
[2020-08-22 12:00] VITALS: BP 110/81
--- NOTE | 2020-08-22 12:00 | NUR ---
NURSE NOTES: The patient is resting comfortably without acute distress or shortness of breath. Repositioning and oral suction done. Tolerating vent setting and TF well. Will closely monitor the patient. Will continue plan of care.
--- NOTE | 2020-08-22 12:02 | NUR ---
CASE MANAGEMENT:REVIEW 08/22/20 SI: MRSA SEPSIS. PNA. SICKLE CELL CRISIS TRACH/VENT DEPENDENT 97.9 52 18 127/67 100% ON 40% FIO2 WBC+25.0 H/H-6.8/20.8 TBILI+1.1 DBILI+0.4 AST/ALT+81/91 IS: IV CEFEPIME Q12 IV KEPPRA Q12 IV PROTONIX Q12 HEPARIN SQ Q12 : STEP DOWN UNIT DCP: FROM [facility] PLAN: ORDER NOTED TO TRANSFER TO [place]
--- NOTE | 2020-08-22 13:55 | Surgery Progress Note ---
Surgery Progress Note Subjective Additional Comments awake alert responsive no n/v/f/c doing well Objective Last 24 Hour Vital Signs Date Time Temp Pulse Resp B/P (MAP) Pulse Ox O2 Delivery O2 Flow Rate FiO2 08/22/20 12:00 52 08/22/20 11:26 58 18 40 08/22/20 08:00 54 08/22/20 08:00 97.9 52 18 127/67 (87) 100 08/22/20 07:25 54 18 40 08/22/20 04:00 40 08/22/20 04:00 97.7 60 20 135/74 (94) 98 08/22/20 04:00 Mechanical Ventilator 08/22/20 04:00 72 08/22/20 03:25 64 18 40 08/22/20 00:00 98.0 61 20 120/65 (83) 97 08/22/20 00:00 40 08/22/20 00:00 63 08/22/20 00:00 Mechanical Ventilator 08/21/20 23:00 72 18 40 08/21/20 20:00 51 08/21/20 20:00 40 08/21/20 20:00 98.2 60 20 122/69 (86) 99 08/21/20 20:00 Mechanical Ventilator 08/21/20 19:00 53 18 40 08/21/20 16:00 40 08/21/20 16:00 Mechanical Ventilator 08/21/20 16:00 56 08/21/20 16:00 56 08/21/20 16:00 99.1 61 20 119/69 (86) 100 08/21/20 16:00 99.1 61 20 119/69 (86) 100 08/21/20 15:40 55 18 40 I&O Intake and Output 08/21/20 08/22/20 19:00 07:00 Intake Total 350 ml 1405 ml Output Total 1200 ml 2000 ml Balance -850 ml -595 ml Free Water 60 ml IV Total 925 ml Tube Feeding 290 ml 480 ml Output Urine Total 1000 ml 2000 ml Stool Total 200 ml # Bowel Movements 1 Dressing: other Wound: other Cardiovascular: RSR Respiratory: decreased breath sounds Abdomen: soft, non-tender, present bowel sounds Extremities: no tenderness, no cyanosis Laboratory Tests Test 08/22/20 03:00 08/22/20 03:10 08/22/20 12:01 Sodium Level 145 MMOL/L (136-145) Potassium Level 3.9 MMOL/L (3.5-5.1) Chloride Level 113 MMOL/L (98-107) H Carbon Dioxide Level 21 MMOL/L (21-32) Anion Gap 11 mmol/L (5-15) Blood Urea Nitrogen 33 mg/dL (7-18) H Creatinine 1.0 MG/DL (0.55-1.30) Estimat Glomerular Filtration Rate > 60 mL/min (>60) Glucose Level 93 MG/DL (74-106) Calcium Level 9.1 MG/DL (8.5-10.1) Total Bilirubin 1.1 MG/DL (0.2-1.0) H Direct Bilirubin 0.4 MG/DL (0.0-0.3) H Aspartate Amino Transf (AST/SGOT) 81 U/L (15-37) H Alanine Aminotransferase (ALT/SGPT) 91 U/L (12-78) H Alkaline Phosphatase 508 U/L (46-116) H Total Protein 7.4 G/DL (6.4-8.2) Albumin 2.2 G/DL (3.4-5.0) L Globulin 5.2 g/dL Albumin/Globulin Ratio 0.4 (1.0-2.7) L White Blood Count 25.0 K/UL (4.8-10.8) *H Red Blood Count 2.14 M/UL (4.70-6.10) L Hemoglobin 6.8 G/DL (14.2-18.0) *L Hematocrit 20.8 % (42.0-52.0) L Mean Corpuscular Volume 97 FL (80-99) Mean Corpuscular Hemoglobin 31.6 PG (27.0-31.0) H Mean Corpuscular Hemoglobin Concent 32.4 G/DL (32.0-36.0) Red Cell Distribution Width 16.9 % (11.6-14.8) H Platelet Count 473 K/UL (150-450) H Mean Platelet Volume 7.9 FL (6.5-10.1) Neutrophils (%) (Auto) % (45.0-75.0) Lymphocytes (%) (Auto) % (20.0-45.0) Monocytes (%) (Auto) % (1.0-10.0) Eosinophils (%) (Auto) % (0.0-3.0) Basophils (%) (Auto) % (0.0-2.0) Differential Total Cells Counted 100 Neutrophils % (Manual) 67 % (45-75) Lymphocytes % (Manual) 16 % (20-45) L Monocytes % (Manual) 7 % (1-10) Eosinophils % (Manual) 10 % (0-3) H Basophils % (Manual) 0 % (0-2) Band Neutrophils 0 % (0-8) Nucleated Red Blood Cells 1 /100 WBC Platelet Estimate Increased H Platelet Morphology Normal Anisocytosis 1+ POC Whole Blood Glucose 87 MG/DL (74-106) Plan Problems: (1) Pneumonia (2) Sickle cell anemia (3) Tachycardia (4) Severe sepsis (5) Sickle cell crisis (6) Sepsis Assessment & Plan: 35-year-old male sickle cell multiple comorbidities history of craniotomy trach feeding tube prior port infected removed see prior admission and consult and operative notes. Currently presents with significant leukocytosis fevers hypotension in intensive care unit wound site evaluated unlikely etiology. Trach evaluated may consider changing. LFTs noted elevated. Ultrasound ordered pending results trend labs continue IV antibiotics appreciate infectious disease input will follow with recommendations thank you for let me participate in patient's care KUB and US noted labs reviewed transfuse prbc prn trach change peg changed line out picc placed persistent wbc h/h noted anemia ss better since new trach Shiley [address] secretions manageable pulmonary arteries: Evaluation for pulmonary embolus is limited due to breathing motion artifact. No central pulmonary emboli are identified. Aorta: No acute findings. No thoracic aortic aneurysm. Lungs: There are moderately consolidating infiltrates identified in both lower lobes dependently with mild additional patchy infiltrates dependently in both upper lobes. The findings are consistent with bilateral nonspecific pneumonia. Aspiration pneumonia could give this appearance. The infiltrates are only somewhat typical of Covid 19. Confidence is immediate. Pleural space: Unremarkable. No significant effusion. No pneumothorax. Heart: Unremarkable. No cardiomegaly. No significant pericardial effusion. No evidence of RV dysfunction. Bones/joints: No acute fracture. No dislocation. Soft tissues: Unremarkable. Lymph nodes: Unremarkable. No enlarged lymph nodes. Tubes, lines and devices: There is a tracheostomy tube in good position. IMPRESSION: 1. There are moderately consolidating infiltrates identified in both lower lobes dependently with mild additional patchy infiltrates dependently in both upper lobes. The findings are consistent with bilateral nonspecific pneumonia. Aspiration pneumonia could give this appearance. The infiltrates are only somewhat typical of Covid 19. Confidence is immediate. 2. Evaluation for pulmonary embolus is limited due to breathing motion artifact. No central pulmonary emboli are identified. The liver is homogeneous. We cannot identify a normal spleen. There is dense crescentic calcification in the left upper quadrant at the expected location of the spleen. Gallbladder is absent. The pancreas is unremarkable. Adrenals are normal in morphology. There is a small punctate cortical calcification left kidney. No hydronephrosis bilaterally There is a G-tube in place. Gas-filled bowel loops identified throughout the abdomen and pelvis. No discrete transition point or obstruction. Appendix partially visualized. There is some free fluid in the pelvis. There is no free air. There is a mildly prominent lymph nodes noted in the upper to mid retroperitoneum noted of undetermined etiology or significance. Rivera catheter noted in the bladder. The reservoir for the penile prosthesis is identified in the left lower pelvis. There is a right femoral venous catheter in place. Diffuse sclerosis of the bony pelvis and hips noted of undetermined etiology. IMPRESSION: BILATERAL LOWER LOBE PNEUMONIAS. ALSO SOME HAZY INFILTRATES IN THE UPPER LOBES. A NORMAL SPLEEN IS NOT VISUALIZED. THERE IS A DENSE CRESCENTIC CALCIFICATION LEFT UPPER QUADRANT AT THE EXPECTED LOCATION OF THE SPLEEN. 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 PUNCTATE CORTICAL CALCIFICATION LEFT KIDNEY. NO HYDRONEPHROSIS. PROMINENT LYMPH NODES IN THE UPPER TO MID RETROPERITONEUM OF UNDETERMINED ETIOLOGY OR SIGNIFICANCE. G-TUBE, RIVERA CATHETER, RIGHT FEMORAL CATHETER AND PENILE PROSTHESIS NOTED IN PLACE. MILD DIFFUSE SCLEROSIS OF THE BONY PELVIS AND BOTH HIPS OF UNDETERMINED ETIOLOGY. QUESTION HISTORY OF RENAL OSTEODYSTROPHY. There is a large craniectomy defect in the right frontal temporal region. Diffuse age-related volume loss demonstrated. 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 No definite acute infarct seen. There is no hemorrhage, mass effect or shift. Ventricles and cisterns as well as brainstem and posterior fossa appear unremarkable. The sellar region is normal. Sinuses, mastoid air cells and bony calvarium appear intact. IMPRESSION: Large right frontotemporal craniectomy defect. 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 No definite acute intracranial abnormality. (7) Port-A-Cath in place Assessment & Plan: prior removal for infection site okay dressings changed no active infection from wound picc Harman Zhao Aug 22, 2020 13:55
--- NOTE | 2020-08-22 14:00 | NUR ---
NURSE NOTES: Blood sample sent down to the lab for request for service for cytometry to r/o leukemia per Dr. Castillo's order. Will continue plan of care.
--- NOTE | 2020-08-22 14:00 | NUR ---
NURSE NOTES: The patient is resting on the bed without acute distress or shortness of breath. Stable vital signs noted. Will continue plan of care.
--- NOTE | 2020-08-22 15:42 | NUR ---
DISCHARGE PLANNING PATIENT WAS REFERRED TO [facility] RECEIVED CALL FROM SANTI AT [facility] STATING THEIR INTERNATIONAL COORDINATOR IS DECLINING TO ACCEPT. PATIENT'S MOTHER DOES NOT WANT PATIENT TO RETURN TO [place] [facility] SPOKE WITH [employer] COUNTER INSTALLER REGARDING ABOVE INSTRUCTED TO REFER TO [facility]
[2020-08-22 16:00] VITALS: BP 126/72
--- NOTE | 2020-08-22 16:00 | NUR ---
NURSE NOTES: Bed bath given to the patient. Tolerated well. Oral care done. Tolerating vent setting and TF well. Will closely monitor the patient. Will continue plan of care.
--- NOTE | 2020-08-22 18:00 | NUR ---
NURSE NOTES: The patient is resting comfortably without acute distress or shortness of breath. Tolerating vent setting and TF with Vital AF @ 50mL/hr well. Overton and rectal tube intact. Stable vital signs noted. Will closely monitor the patient. Will continue plan of care.
--- NOTE | 2020-08-22 19:20 | NUR ---
NURSE NOTES: pt report received from Charisse STODDARD. pt remains stable. pt is alert and oriented times 3, however, no acute neuro abnormalities noted. pt is on classroom monitor showing NSR, no other acute cardiac abnormalities noted. pt is trach vented, sating 97% O2, no acute resp distress noted. pt bed is low, locked, armed, call light within reach, bed rails up times 3. will follow plan of care.
--- NOTE | 2020-08-22 19:38 | NUR ---
NURSE HAND-OFF REPORT: Important Events on Shift: Vital AF @ 50mL/hr., Hgb 6.8, No blood transfusion per Dr Celaya, WBC 25 Dr Degroot notified. Patient Status: stable, full code Diet: Vital AF @ 50mL/hr w/ goal of 70 mL/hr. Pending Orders: N Pending Results/Labs: Request for service per Dr. Castillo. Blood sent to lab. Pending MD notification:N Latest Vital Signs: Temperature 98.2 , Pulse 54 , B/P 126 /72 , Respiratory Rate 18 , O2 SAT 100 , Mechanical Ventilator, O2 Flow Rate . Vital Sign Comment: stable EKG Rhythm: Sinus Bradycardia Rhythm change?: N Notified?: N -Dr Regan JIMENEZ Response: Latest Stevens Fall Score: 50 Fall Risk: High Risk Safety Measures: Call light Within Reach, Bed Alarm Zone 2, Side Rails Side Rails x2, Bed position Low and Locked. Fall Precautions: Yellow Socks Yellow Gown Door Sign Patient Fall Education Report given to ARLYN Richard. Endorsed plan of care. Patient stable at this time
[2020-08-22 20:00] VITALS: BP 128/70
[2020-08-22] MEDS: Dyna-Hex 2% Top Sol 2oz TOPIC SCH (20:15)
--- NOTE | 2020-08-22 22:30 | NUR ---
NURSE NOTES: assessed pts vital signs, stable. pts appears comfortable watching TV. pt denies pain or distress at the moment.
--- NOTE | 2020-08-22 22:37 | General Progress Note ---
Subjective Allergies: Coded Allergies: ADHESIVE TAPE (Verified Allergy, Unknown, 07/20/20) Uncoded Allergies: TAPE (Allergy, Unknown, 08/07/20) Subjective above noted NAD , Calm on TF Objective Last 24 Hour Vital Signs Date Time Temp Pulse Resp B/P (MAP) Pulse Ox O2 Delivery O2 Flow Rate FiO2 08/22/20 20:00 63 08/22/20 20:00 98.2 56 18 128/70 (89) 98 08/22/20 20:00 Mechanical Ventilator 08/22/20 20:00 40 08/22/20 18:45 54 18 40 08/22/20 16:00 98.2 52 18 126/72 (90) 100 08/22/20 16:00 54 08/22/20 16:00 Mechanical Ventilator 08/22/20 16:00 40 08/22/20 15:08 52 18 40 08/22/20 12:00 97.9 53 18 110/81 (91) 100 08/22/20 12:00 40 08/22/20 12:00 52 08/22/20 12:00 Mechanical Ventilator 08/22/20 11:26 58 18 40 08/22/20 08:00 54 08/22/20 08:00 Mechanical Ventilator 08/22/20 08:00 97.9 52 18 127/67 (87) 100 08/22/20 08:00 40 08/22/20 07:25 54 18 40 08/22/20 04:00 40 08/22/20 04:00 97.7 60 20 135/74 (94) 98 08/22/20 04:00 Mechanical Ventilator 08/22/20 04:00 72 08/22/20 03:25 64 18 40 08/22/20 00:00 98.0 61 20 120/65 (83) 97 08/22/20 00:00 40 08/22/20 00:00 63 08/22/20 00:00 Mechanical Ventilator 08/21/20 23:00 72 18 40 Intake and Output 08/21/20 08/22/20 19:00 07:00 Intake Total 350 ml 1505 ml Output Total 1200 ml 2000 ml Balance -850 ml -495 ml Free Water 60 ml 50 ml IV Total 925 ml Tube Feeding 290 ml 530 ml Output Urine Total 1000 ml 2000 ml Stool Total 200 ml # Bowel Movements 1 Laboratory Tests 08/22/20 03:00: Sodium Level 145, Potassium Level 3.9, Chloride Level 113H, Carbon Dioxide Level 21, Anion Gap 11, Blood Urea Nitrogen 33H, Creatinine 1.0, Estimat Glomerular Filtration Rate > 60, Glucose Level 93, Calcium Level 9.1, Total Bilirubin 1.1H, Direct Bilirubin 0.4H, Aspartate Amino Transf (AST/SGOT) 81H, Alanine Aminotransferase (ALT/SGPT) 91H, Alkaline Phosphatase 508H, Total Protein 7.4, Albumin 2.2L, Globulin 5.2, Albumin/Globulin Ratio 0.4L 08/22/20 03:10: White Blood Count 25.0*H, Red Blood Count 2.14L, Hemoglobin 6.8*L, Hematocrit 20.8L, Mean Corpuscular Volume 97, Mean Corpuscular Hemoglobin 31.6H, Mean Corpuscular Hemoglobin Concent 32.4, Red Cell Distribution Width 16.9H, Platelet Count 473H, Mean Platelet Volume 7.9, Neutrophils (%) (Auto) , Lymphocytes (%) (Auto) , Monocytes (%) (Auto) , Eosinophils (%) (Auto) , Basophils (%) (Auto) , Differential Total Cells Counted 100, Neutrophils % (Manual) 67, Lymphocytes % (Manual) 16L, Monocytes % (Manual) 7, Eosinophils % (Manual) 10H, Basophils % (Manual) 0, Band Neutrophils 0, Nucleated Red Blood Cells 1, Platelet Estimate IncreasedH, Platelet Morphology Normal, Anisocytosis 1+ 08/22/20 12:01: POC Whole Blood Glucose 87 Height (Feet): 5 Height (Inches): 10.00 Weight (Pounds): 112 Objective Thin AA Man HEENT s/p craniotomy neck (+) trach Coarse BS RR/tachy abd soft (+) GT no edema 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
[2020-08-23] VITALS: BP 118/67
--- NOTE | 2020-08-23 02:30 | NUR ---
NURSE NOTES: cleaned pt with intensive care medicine specialist. pt was turned and repartitioned. opti- foams in place on pts pressure points.
[2020-08-23 04:00] VITALS: BP 115/64
--- NOTE | 2020-08-23 07:30 | NUR ---
NURSE NOTES: RECEIVED BED SIDE REPORT FROM RADHA STODDARD. RECEIVED PT WITH HOB ELEVATED 45 DEGREE ,ALERT TO NAME TRACH TO VENT ,TOLERATING WELL CURRENTS VENT SETTINGS. RENDERED TRACH CARE AND ORAL HYGIENE ,MOD AMT OF TICK WHITE SECRETIONS NOTED . PT RECEIVING VITAL A.F @ 70CC./HRS VIA GT,NO RESIDUAL NOTED AT THIS TIME. FULL BODY ASSESSMENT DONE.PT REPOSITIONED Q 2HRS TO PROVIDE COMFORT AND TO PREVENT FURTHER SKIN BREAK DOWN. RECTAL TUBE IN PLACE DRAINING YELLOW LIQUID STOOLS COLOR. PT KEEP CLEAN AND DRY POSSIBLE. NO ACUTE DISTRESS NOTED AT THIS TIME. WILL CONT TO MONITOR.
--- NOTE | 2020-08-23 07:40 | NUR ---
NURSE HAND-OFF REPORT: Important Events on Shift:[] Patient Status: [] Diet: [] Pending Orders: [] Pending Results/Labs:[] Pending MD notification:[] Latest Vital Signs: Temperature 98.0 , Pulse 67 , B/P 115 /64 , Respiratory Rate 18 , O2 SAT 100 , Mechanical Ventilator, O2 Flow Rate . Vital Sign Comment: [] EKG Rhythm: Sinus Rhythm Rhythm change?: N Notified?: James Spears MD Response: Latest Stevens Fall Score: 50 Fall Risk: High Risk Safety Measures: Call light Within Reach, Bed Alarm Zone 2, Side Rails Side Rails x2, Bed position Low and Locked. Fall Precautions: Yellow Socks Yellow Gown Door Sign Patient Fall Education Report given to []. Addendum: 08/23/20 at 0800 by GURPREET CONNER RN NURSE HAND-OFF REPORT: Important Events on Shift:[Monitor pts Vital signs.] Patient Status: [stable] Diet: [Tube feeding as doctor ordered. ] Pending Orders: [NA] Pending Results/Labs:[NA] Pending MD notification:[NA] Latest Vital Signs: Temperature 98.0 , Pulse 67 , B/P 115 /64 , Respiratory Rate 18 , O2 SAT 100 , Mechanical Ventilator, O2 Flow Rate . Vital Sign Comment: [STABLE.] EKG Rhythm: Sinus Rhythm Rhythm change?: N Notified?: James Spears MD Response: Latest Stevens Fall Score: 50 Fall Risk: High Risk Safety Measures: Call light Within Reach, Bed Alarm Zone 2, Side Rails Side Rails x2, Bed position Low and Locked. Fall Precautions: Yellow Socks Yellow Gown Door Sign Patient Fall Education Report given to [TRINITY RN].
[2020-08-23 08:00] VITALS: BP 116/76
--- NOTE | 2020-08-23 08:57 | Hematology/Onc Progress Note ---
Assessment/Plan Assessment/Plan Assessment and Recs # Sickle cell crisis noted upon admission, with hx of sickle cell anemia --> hgb 6.5-->7.1-->6.6->>>>7.3-->7.1 -->6.7-->6.5-->6.8 --> 1 unit prbc on 07/23 --> ivfs have been started --> anemia panel ordered, with elev ferritin --> recommend to consider hydrea when discharged if stable --> likely does have mild hemolysis --> hgb electrophoresis show evidence of sickle cell trait # Hyperferritinemia with elevated ferritin that was noted --> likely consider exjade once discharged though at this time not limiting --> ferritin can >2000 with recurrent transfusions --> trend over time, for EOD observe # Leukocytosis poa with Severe sepsis due to line infection --> abx: vancomycin-->cefepime/colistin-->cefepime --> wbc 25-->31-->29-->25 # Respiratory failure s/p Ventilator dependent --> as per pulm, vent adjustment # Port-A-Cath in place --> s/p abx --> s/p permacath removal # Transaminitis -->liver function elevated --> per gi # Dt ppx heparin sq The timing of this note does not necessarily reflect the time of the patient was seen. Greatly appreciate consultation. Subjective Neurologic/Psychiatric: Denies: no symptoms, anxiety, depressed, emotional problems, headache, numbness, paresthesia, pre-existing deficit, seizure, tingling, tremors, weakness, other Endocrine: Denies: no symptoms, excessive sweating, flushing, intolerance to cold, intolerance to heat, increased hunger, increased thirst, increased urine, unexplained weight gain, unexplained weight loss, other Allergies: Coded Allergies: ADHESIVE TAPE (Verified Allergy, Unknown, 07/20/20) Uncoded Allergies: TAPE (Allergy, Unknown, 08/07/20) All Systems: reviewed and negative except above Subjective 08/19 no acute events, vent, iv abx, labs reviewed 08/20 labs reviewed, seen by Dr. Celaya and mychal Rn, holding off prbc 08/21 remains on abx with persistently elev wbc, on abx broad spectrum 08/22 labs reviewed, no bleeding, meds noted, wbc still 25k, hgb 6.8, transfuse pr 08/23 cbc has been ordered, meds noted, on cefepime, have dw path is flow back Objective Objective Current Medications Medications (Trade) Dose Ordered Sig/Piedad Route PRN Reason Start Time Stop Time Status Last Admin Dose Admin Acetaminophen (Tylenol) 650 mg Q6H PRN GT Temp >100.5 08/10/20 20:20 09/09/20 20:19 08/19/20 21:48 Cefepime HCl 1 gm/ Dextrose 55 ml @ 110 mls/hr EVERY 12 HOURS IVPB 08/22/20 11:45 08/23/20 23:59 08/22/20 20:58 Chlorhexidine Gluconate (Christy-Hex 2%) 1 applic DAILY@2000 TOPIC 08/14/20 20:00 11/12/20 19:59 08/22/20 20:15 Famotidine (Pepcid) 20 mg DAILY GT 08/11/20 09:00 11/06/20 08:59 08/22/20 09:36 Folic Acid (Folate) 1 mg DAILY GT 08/11/20 09:00 09/07/20 08:59 08/22/20 09:35 Heparin Sodium (Porcine) (Heparin 5000 units/ml) 5,000 units EVERY 12 HOURS SUBQ 08/10/20 21:00 09/22/20 20:59 08/19/20 10:36 Levetiracetam 100 ml @ 400 mls/hr Q12HR IVPB 08/14/20 10:00 11/12/20 09:59 08/22/20 20:15 Metoclopramide HCl (Reglan) 10 mg Q6H PRN IVP Nausea & Vomiting 08/21/20 21:45 09/20/20 21:44 Multivitamins (Multivitamins) 1 tab DAILY GT 08/11/20 09:00 09/07/20 08:59 08/22/20 09:35 Pantoprazole (Protonix) 40 mg EVERY 12 HOURS IVP 08/13/20 22:15 09/12/20 22:14 08/22/20 20:15 Last 24 Hour Vital Signs Date Time Temp Pulse Resp B/P (MAP) Pulse Ox O2 Delivery O2 Flow Rate FiO2 08/23/20 07:23 67 18 40 08/23/20 04:00 40 08/23/20 04:00 Mechanical Ventilator 08/23/20 04:00 60 08/23/20 04:00 98.0 67 18 115/64 (81) 100 08/23/20 03:26 75 18 60 08/23/20 00:00 40 08/23/20 00:00 98.0 72 18 118/67 (84) 99 08/23/20 00:00 93 08/23/20 00:00 Mechanical Ventilator 08/22/20 23:29 80 18 60 08/22/20 20:00 63 08/22/20 20:00 98.2 56 18 128/70 (89) 98 08/22/20 20:00 Mechanical Ventilator 08/22/20 20:00 40 08/22/20 18:45 54 18 40 08/22/20 16:00 98.2 52 18 126/72 (90) 100 08/22/20 16:00 54 08/22/20 16:00 Mechanical Ventilator 08/22/20 16:00 40 08/22/20 15:08 52 18 40 08/22/20 12:00 97.9 53 18 110/81 (91) 100 08/22/20 12:00 40 08/22/20 12:00 52 08/22/20 12:00 Mechanical Ventilator 08/22/20 11:26 58 18 40 08/22/20 08:00 54 08/22/20 08:00 Mechanical Ventilator 08/22/20 08:00 97.9 52 18 127/67 (87) 100 08/22/20 08:00 40 08/22/20 07:25 54 18 40 08/22/20 04:00 40 08/22/20 04:00 97.7 60 20 135/74 (94) 98 08/22/20 04:00 Mechanical Ventilator 08/22/20 04:00 72 08/22/20 03:25 64 18 40 08/22/20 00:00 98.0 61 20 120/65 (83) 97 08/22/20 00:00 40 08/22/20 00:00 63 08/22/20 00:00 Mechanical Ventilator 08/21/20 23:00 72 18 40 08/21/20 20:00 51 08/21/20 20:00 40 08/21/20 20:00 98.2 60 20 122/69 (86) 99 08/21/20 20:00 Mechanical Ventilator 08/21/20 19:00 53 18 40 08/21/20 16:00 40 08/21/20 16:00 Mechanical Ventilator 08/21/20 16:00 56 08/21/20 16:00 56 08/21/20 16:00 99.1 61 20 119/69 (86) 100 08/21/20 16:00 99.1 61 20 119/69 (86) 100 08/21/20 15:40 55 18 40 08/21/20 12:00 40 08/21/20 12:00 99.1 62 20 126/75 (92) 99 08/21/20 12:00 99.1 62 20 126/75 (92) 99 08/21/20 12:00 60 08/21/20 12:00 60 08/21/20 12:00 Mechanical Ventilator 08/21/20 11:00 58 18 40 Intake and Output 08/22/20 08/23/20 19:00 07:00 Intake Total 670 ml 855 ml Output Total 1700 ml 2050 ml Balance -1030 ml -1195 ml Free Water 60 ml IV Total 155 ml Tube Feeding 610 ml 700 ml Output Urine Total 1500 ml 2000 ml Stool Total 200 ml 50 ml Labs Test 08/20/20 09:20 08/21/20 04:00 08/22/20 03:00 08/22/20 03:10 Ammonia 42 umol/L (11-32) White Blood Count 28.7 K/UL (4.8-10.8) 25.0 K/UL (4.8-10.8) Red Blood Count 2.01 M/UL (4.70-6.10) 2.14 M/UL (4.70-6.10) Hemoglobin 6.5 G/DL (14.2-18.0) 6.8 G/DL (14.2-18.0) Hematocrit 19.4 % (42.0-52.0) 20.8 % (42.0-52.0) Mean Corpuscular Volume 97 FL (80-99) 97 FL (80-99) Mean Corpuscular Hemoglobin 32.4 PG (27.0-31.0) 31.6 PG (27.0-31.0) Mean Corpuscular Hemoglobin Concent 33.5 G/DL (32.0-36.0) 32.4 G/DL (32.0-36.0) Red Cell Distribution Width 17.1 % (11.6-14.8) 16.9 % (11.6-14.8) Platelet Count 430 K/UL (150-450) 473 K/UL (150-450) Mean Platelet Volume 8.3 FL (6.5-10.1) 7.9 FL (6.5-10.1) Neutrophils (%) (Auto) % (45.0-75.0) % (45.0-75.0) Lymphocytes (%) (Auto) % (20.0-45.0) % (20.0-45.0) Monocytes (%) (Auto) % (1.0-10.0) % (1.0-10.0) Eosinophils (%) (Auto) % (0.0-3.0) % (0.0-3.0) Basophils (%) (Auto) % (0.0-2.0) % (0.0-2.0) Differential Total Cells Counted 100 100 Neutrophils % (Manual) 74 % (45-75) 67 % (45-75) Lymphocytes % (Manual) 18 % (20-45) 16 % (20-45) Monocytes % (Manual) 5 % (1-10) 7 % (1-10) Eosinophils % (Manual) 3 % (0-3) 10 % (0-3) Basophils % (Manual) 0 % (0-2) 0 % (0-2) Band Neutrophils 0 % (0-8) 0 % (0-8) Platelet Estimate Adequate Increased Platelet Morphology Normal Normal Hypochromasia 1+ Anisocytosis 1+ 1+ Macrocytosis 1+ Sodium Level 149 MMOL/L (136-145) 145 MMOL/L (136-145) Potassium Level 3.6 MMOL/L (3.5-5.1) 3.9 MMOL/L (3.5-5.1) Chloride Level 117 MMOL/L (98-107) 113 MMOL/L (98-107) Carbon Dioxide Level 23 MMOL/L (21-32) 21 MMOL/L (21-32) Anion Gap 9 mmol/L (5-15) 11 mmol/L (5-15) Blood Urea Nitrogen 30 mg/dL (7-18) 33 mg/dL (7-18) Creatinine 1.0 MG/DL (0.55-1.30) 1.0 MG/DL (0.55-1.30) Estimat Glomerular Filtration Rate > 60 mL/min (>60) > 60 mL/min (>60) Glucose Level 99 MG/DL (74-106) 93 MG/DL (74-106) Calcium Level 8.4 MG/DL (8.5-10.1) 9.1 MG/DL (8.5-10.1) Total Bilirubin 1.0 MG/DL (0.2-1.0) 1.1 MG/DL (0.2-1.0) Aspartate Amino Transf (AST/SGOT) 102 U/L (15-37) 81 U/L (15-37) Alanine Aminotransferase (ALT/SGPT) 100 U/L (12-78) 91 U/L (12-78) Alkaline Phosphatase 509 U/L (46-116) 508 U/L (46-116) Total Protein 6.8 G/DL (6.4-8.2) 7.4 G/DL (6.4-8.2) Albumin 2.0 G/DL (3.4-5.0) 2.2 G/DL (3.4-5.0) Globulin 4.8 g/dL 5.2 g/dL Albumin/Globulin Ratio 0.4 (1.0-2.7) 0.4 (1.0-2.7) Direct Bilirubin 0.4 MG/DL (0.0-0.3) Nucleated Red Blood Cells 1 /100 WBC Test 08/22/20 12:01 POC Whole Blood Glucose 87 MG/DL (74-106) Height (Feet): 5 Height (Inches): 10.00 Weight (Pounds): 112 Objective Physical Exam General: alert, Chronically Ill Head: other - Large right-sided craniotomy defect well-heale ++, tracheotomy/vent Respiratory: crackles, rales, other - right side chest wall tenderness Cardiovascular: tachycardia Gastrointestinal: normal inspection, soft, gt++ Musk: decreased range of motion, other - atrophic, motor weakness Neurologic: alert, motor weakness, other - left hemineglect Psychiatric: normal inspection Skin: no rash : radha++ Roshan Castillo MD Aug 23, 2020 08:57
[2020-08-23] MEDS: Heparin 5000 units/ml inj SUBQ SCH ×2 (09:00→21:17)
[2020-08-23] MEDS: Pantoprazole Inj IVP SCH ×2 (09:00→21:18)
[2020-08-23] MEDS: Cefepime HCl 1 GM in D5W 55 ML IVPB SCH (09:00)
[2020-08-23] MEDS ORDERED: Cefepime 1gm vial ONE (09:13)
[2020-08-23] MEDS: levETIRAcetam 1,000mg/NS100ml 100 ML IVPB SCH ×2 (10:26→21:18)
--- NOTE | 2020-08-23 10:51 | NUR ---
CASE MANAGEMENT:REVIEW 08/23/20 SI: MRSA AND SERRATIA SEPSIS. ASPIRATION PNA 98.1 58 18 116/76 95% O VENT SUPPORT W/40% FIO2 NO LABS FOR TODAY IS: IV CEFEPIME Q12 IV KEPPRA Q12 IV PROTONIX Q12 HEPARIN SQ Q12 : STEP DOWN UNIT DISCHARGE PLANNING WILL NEED TO WAIT FOR LEUKOCYTOSIS TO RESOLVE BEFORE DISCHARGING MOTHER IS REFUSING FOR PATIENT TO RETURN TO [place] UPON DISCHARGE REFERRED TO [facility] AND THEIR INTERNAL AFFAIRS COMMANDER DECLINED TO ACCEPT
--- NOTE | 2020-08-23 11:23 | Infectious Diseases Prog Note ---
"Assessment/Plan Assessment/Plan antibiotics : cefepime A 1. MRSA | serratia sepsis s/p catheter removal 2. MRSA | serratia | pseudomonas pneumonia 3. respiratory failure 4. sickle cell disease 5. anemia 6. leucocytosis improving 7. seizures P 1. d/c cefepime 2. observe off antibiotics 3. will follow up cultures Subjective ROS Limited/Unobtainable: Yes Allergies: Coded Allergies: ADHESIVE TAPE (Verified Allergy, Unknown, 07/20/20) Uncoded Allergies: TAPE (Allergy, Unknown, 08/07/20) Objective Last 24 Hour Vital Signs Date Time Temp Pulse Resp B/P (MAP) Pulse Ox O2 Delivery O2 Flow Rate FiO2 08/23/20 08:52 58 18 40 08/23/20 08:00 Mechanical Ventilator 08/23/20 08:00 98.1 69 18 116/76 (89) 95 08/23/20 07:23 67 18 40 08/23/20 04:00 40 08/23/20 04:00 Mechanical Ventilator 08/23/20 04:00 60 08/23/20 04:00 98.0 67 18 115/64 (81) 100 08/23/20 03:26 75 18 60 08/23/20 00:00 40 08/23/20 00:00 98.0 72 18 118/67 (84) 99 08/23/20 00:00 93 08/23/20 00:00 Mechanical Ventilator 08/22/20 23:29 80 18 60 08/22/20 20:00 63 08/22/20 20:00 98.2 56 18 128/70 (89) 98 08/22/20 20:00 Mechanical Ventilator 08/22/20 20:00 40 08/22/20 18:45 54 18 40 08/22/20 16:00 98.2 52 18 126/72 (90) 100 08/22/20 16:00 54 08/22/20 16:00 Mechanical Ventilator 08/22/20 16:00 40 08/22/20 15:08 52 18 40 08/22/20 12:00 97.9 53 18 110/81 (91) 100 08/22/20 12:00 40 08/22/20 12:00 52 08/22/20 12:00 Mechanical Ventilator 08/22/20 11:26 58 18 40 Height (Feet): 5 Height (Inches): 10.00 Weight (Pounds): 112 HEENT: status post trach Respiratory/Chest: lungs clear Cardiovascular: normal rate, regular rhythm, no gallop/murmur Abdomen: soft, non tender Extremities: no edema, other - right arm PICC Laboratory Tests Test 08/22/20 12:01 POC Whole Blood Glucose 87 MG/DL (74-106) Current Medications Medications (Trade) Dose Ordered Sig/Piedad Route PRN Reason Start Time Stop Time Status Last Admin Dose Admin Acetaminophen (Tylenol) 650 mg Q6H PRN GT Temp >100.5 08/10/20 20:20 09/09/20 20:19 08/19/20 21:48 Cefepime HCl 1 gm/ Dextrose 55 ml @ 110 mls/hr EVERY 12 HOURS IVPB 08/22/20 11:45 08/23/20 23:59 08/23/20 09:00 Chlorhexidine Gluconate (Christy-Hex 2%) 1 applic DAILY@2000 TOPIC 08/14/20 20:00 11/12/20 19:59 08/22/20 20:15 Famotidine (Pepcid) 20 mg DAILY GT 08/11/20 09:00 11/06/20 08:59 08/23/20 10:09 Folic Acid (Folate) 1 mg DAILY GT 08/11/20 09:00 09/07/20 08:59 08/23/20 09:00 Heparin Sodium (Porcine) (Heparin 5000 units/ml) 5,000 units EVERY 12 HOURS SUBQ 08/10/20 21:00 09/22/20 20:59 08/23/20 09:00 Levetiracetam 100 ml @ 400 mls/hr Q12HR IVPB 08/14/20 10:00 11/12/20 09:59 08/23/20 10:26 Metoclopramide HCl (Reglan) 10 mg Q6H PRN IVP Nausea & Vomiting 08/21/20 21:45 09/20/20 21:44 Multivitamins (Multivitamins) 1 tab DAILY GT 08/11/20 09:00 09/07/20 08:59 08/23/20 10:09 Pantoprazole (Protonix) 40 mg EVERY 12 HOURS IVP 08/13/20 22:15 09/12/20 22:14 08/23/20 09:00 Isabelle Degroot MD Aug 23, 2020 11:23"
[2020-08-23 12:00] VITALS: BP 123/73
[2020-08-23] MEDS ORDERED: NS 275ml ONE ×3 (12:52→13:14)
[2020-08-23] MEDS ORDERED: Tubing IV Secondary IV ONE ×3 (12:52→13:14)
[2020-08-23] MEDS ORDERED: D5 1/2NS 1000ml IV ONE (13:08)
--- NOTE | 2020-08-23 14:25 | NUR ---
DISCHARGE PLANNING MOTHER DOESNT WANT PATIENT TO RETURN TO [facility] REFERRED TO [place] ~ THEIR OIL AND GAS WELL TREATMENT OPERATOR DECLINED TO ACCEPT REFERRED TO [facility] [[email or web address]] ~ SPOKE WITH ED WHO STATED THEY WILL PROBABLY BE ABLE TO ACCEPT PATIENTS BY [facility] REFERRED TO [facility] ~ WILL FOLLOW UP ONCE FAX FINALLY GOES THROUGH Addendum: 08/23/20 at 1546 by ALLEN ANAYA LVN LVN SPOKE WITH DOUGLAS AT [facility] SHE RECEIVED THE CLINICALS AND WILL HAVE HER PROMOTION MANAGER REVIEW THEM SINCE THIS IS A G PATIENT THEY WILL DO THEIR BEST IS FINDING A ROOM FOR THIS MEMBER [facility]....DOUGLAS T: [phone]...WILL NEED 2 COVID TEST [facility]....ED T: [phone]
--- NOTE | 2020-08-23 15:57 | Surgery Progress Note ---
Surgery Progress Note Subjective Symptoms: improved, tolerating diet, passing flatus Objective Last 24 Hour Vital Signs Date Time Temp Pulse Resp B/P (MAP) Pulse Ox O2 Delivery O2 Flow Rate FiO2 08/23/20 12:40 71 18 40 08/23/20 12:00 40 08/23/20 12:00 77 08/23/20 12:00 98.8 73 18 123/73 (90) 96 08/23/20 12:00 Mechanical Ventilator 08/23/20 10:46 74 18 40 08/23/20 08:52 58 18 40 08/23/20 08:00 Mechanical Ventilator 08/23/20 08:00 64 08/23/20 08:00 98.1 69 18 116/76 (89) 95 08/23/20 08:00 40 08/23/20 07:23 67 18 40 08/23/20 04:00 40 08/23/20 04:00 Mechanical Ventilator 08/23/20 04:00 60 08/23/20 04:00 98.0 67 18 115/64 (81) 100 08/23/20 03:26 75 18 60 08/23/20 00:00 40 08/23/20 00:00 98.0 72 18 118/67 (84) 99 08/23/20 00:00 93 08/23/20 00:00 Mechanical Ventilator 08/22/20 23:29 80 18 60 08/22/20 20:00 63 08/22/20 20:00 98.2 56 18 128/70 (89) 98 08/22/20 20:00 Mechanical Ventilator 08/22/20 20:00 40 08/22/20 18:45 54 18 40 08/22/20 16:00 98.2 52 18 126/72 (90) 100 08/22/20 16:00 54 08/22/20 16:00 Mechanical Ventilator 08/22/20 16:00 40 I&O Intake and Output 08/22/20 08/23/20 19:00 07:00 Intake Total 670 ml 855 ml Output Total 1700 ml 2050 ml Balance -1030 ml -1195 ml Free Water 60 ml IV Total 155 ml Tube Feeding 610 ml 700 ml Output Urine Total 1500 ml 2000 ml Stool Total 200 ml 50 ml Cardiovascular: RSR Respiratory: clear Abdomen: soft, non-tender, present bowel sounds Extremities: no edema, no tenderness, no cyanosis Plan Problems: (1) Pneumonia (2) Sickle cell anemia (3) Tachycardia (4) Severe sepsis (5) Sickle cell crisis (6) Sepsis Assessment & Plan: 35-year-old male sickle cell multiple comorbidities history of craniotomy trach feeding tube prior port infected removed see prior admission and consult and operative notes. Currently presents with significant leukocytosis fevers hypotension in intensive care unit wound site evaluated unlikely etiology. Trach evaluated may consider changing. LFTs noted elevated. Ultrasound ordered pending results trend labs continue IV antibiotics appreciate infectious disease input will follow with recommendations thank you for let me participate in patient's care KUB and US noted labs reviewed transfuse prbc prn trach change peg changed line out picc placed persistent wbc h/h noted anemia ss better since new trach Shiley [address] secretions manageable pulmonary arteries: Evaluation for pulmonary embolus is limited due to breathing motion artifact. No central pulmonary emboli are identified. Aorta: No acute findings. No thoracic aortic aneurysm. Lungs: There are moderately consolidating infiltrates identified in both lower lobes dependently with mild additional patchy infiltrates dependently in both upper lobes. The findings are consistent with bilateral nonspecific pneumonia. Aspiration pneumonia could give this appearance. The infiltrates are only somewhat typical of Covid 19. Confidence is immediate. Pleural space: Unremarkable. No significant effusion. No pneumothorax. Heart: Unremarkable. No cardiomegaly. No significant pericardial effusion. No evidence of RV dysfunction. Bones/joints: No acute fracture. No dislocation. Soft tissues: Unremarkable. Lymph nodes: Unremarkable. No enlarged lymph nodes. Tubes, lines and devices: There is a tracheostomy tube in good position. IMPRESSION: 1. There are moderately consolidating infiltrates identified in both lower lobes dependently with mild additional patchy infiltrates dependently in both upper lobes. The findings are consistent with bilateral nonspecific pneumonia. Aspiration pneumonia could give this appearance. The infiltrates are only somewhat typical of Covid 19. Confidence is immediate. 2. Evaluation for pulmonary embolus is limited due to breathing motion artifact. No central pulmonary emboli are identified. The liver is homogeneous. We cannot identify a normal spleen. There is dense crescentic calcification in the left upper quadrant at the expected location of the spleen. Gallbladder is absent. The pancreas is unremarkable. Adrenals are normal in morphology. There is a small punctate cortical calcification left kidney. No hydronephrosis bilaterally There is a G-tube in place. Gas-filled bowel loops identified throughout the abdomen and pelvis. No discrete transition point or obstruction. Appendix partially visualized. There is some free fluid in the pelvis. There is no free air. There is a mildly prominent lymph nodes noted in the upper to mid retroperitoneum noted of undetermined etiology or significance. Rivera catheter noted in the bladder. The reservoir for the penile prosthesis is identified in the left lower pelvis. There is a right femoral venous catheter in place. Diffuse sclerosis of the bony pelvis and hips noted of undetermined etiology. IMPRESSION: BILATERAL LOWER LOBE PNEUMONIAS. ALSO SOME HAZY INFILTRATES IN THE UPPER LOBES. A NORMAL SPLEEN IS NOT VISUALIZED. THERE IS A DENSE CRESCENTIC CALCIFICATION LEFT UPPER QUADRANT AT THE EXPECTED LOCATION OF THE SPLEEN. 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 PUNCTATE CORTICAL CALCIFICATION LEFT KIDNEY. NO HYDRONEPHROSIS. PROMINENT LYMPH NODES IN THE UPPER TO MID RETROPERITONEUM OF UNDETERMINED ETIOLOGY OR SIGNIFICANCE. G-TUBE, RIVERA CATHETER, RIGHT FEMORAL CATHETER AND PENILE PROSTHESIS NOTED IN PLACE. MILD DIFFUSE SCLEROSIS OF THE BONY PELVIS AND BOTH HIPS OF UNDETERMINED ETIOLOGY. QUESTION HISTORY OF RENAL OSTEODYSTROPHY. There is a large craniectomy defect in the right frontal temporal region. Diffuse age-related volume loss demonstrated. 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 No definite acute infarct seen. There is no hemorrhage, mass effect or shift. Ventricles and cisterns as well as brainstem and posterior fossa appear unremarkable. The sellar region is normal. Sinuses, mastoid air cells and bony calvarium appear intact. IMPRESSION: Large right frontotemporal craniectomy defect. 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 No definite acute intracranial abnormality. (7) Port-A-Cath in place Assessment & Plan: prior removal for infection site okay dressings changed no active infection from wound picc Harman Zhao Aug 23, 2020 15:57
[2020-08-23 16:00] VITALS: BP 126/79
--- NOTE | 2020-08-23 17:12 | General Progress Note ---
Subjective ROS Limited/Unobtainable: No Constitutional: Reports: malaise, weakness HEENT: Reports: no symptoms Cardiovascular: Reports: no symptoms Respiratory: Reports: cough, sputum Gastrointestinal/Abdominal: Reports: no symptoms Genitourinary: Reports: no symptoms Neurologic/Psychiatric: Reports: no symptoms Endocrine: Reports: no symptoms Hematologic/Lymphatic: Reports: anemia Allergies: Coded Allergies: ADHESIVE TAPE (Verified Allergy, Unknown, 07/20/20) Uncoded Allergies: TAPE (Allergy, Unknown, 08/07/20) All Systems: reviewed and negative except above Subjective no change, stable. on the vent. no fevers. no szs. d/w family who visited pt yesterday. mental status is improving. family does not want [place]. requesting [place]. Objective Last 24 Hour Vital Signs Date Time Temp Pulse Resp B/P (MAP) Pulse Ox O2 Delivery O2 Flow Rate FiO2 08/23/20 16:00 Mechanical Ventilator 08/23/20 16:00 60 08/23/20 16:00 97.7 79 17 126/79 (95) 98 08/23/20 15:59 69 18 40 08/23/20 12:40 71 18 40 08/23/20 12:00 40 08/23/20 12:00 77 08/23/20 12:00 98.8 73 18 123/73 (90) 96 08/23/20 12:00 Mechanical Ventilator 08/23/20 10:46 74 18 40 08/23/20 08:52 58 18 40 08/23/20 08:00 Mechanical Ventilator 08/23/20 08:00 64 08/23/20 08:00 98.1 69 18 116/76 (89) 95 08/23/20 08:00 40 08/23/20 07:23 67 18 40 08/23/20 04:00 40 08/23/20 04:00 Mechanical Ventilator 08/23/20 04:00 60 08/23/20 04:00 98.0 67 18 115/64 (81) 100 08/23/20 03:26 75 18 60 08/23/20 00:00 40 08/23/20 00:00 98.0 72 18 118/67 (84) 99 08/23/20 00:00 93 08/23/20 00:00 Mechanical Ventilator 08/22/20 23:29 80 18 60 08/22/20 20:00 63 08/22/20 20:00 98.2 56 18 128/70 (89) 98 08/22/20 20:00 Mechanical Ventilator 08/22/20 20:00 40 08/22/20 18:45 54 18 40 Intake and Output 08/22/20 08/23/20 19:00 07:00 Intake Total 670 ml 855 ml Output Total 1700 ml 2050 ml Balance -1030 ml -1195 ml Free Water 60 ml IV Total 155 ml Tube Feeding 610 ml 700 ml Output Urine Total 1500 ml 2000 ml Stool Total 200 ml 50 ml Laboratory Tests 08/23/20 16:00: Reticulocyte Count [Pending] Height (Feet): 5 Height (Inches): 10.00 Weight (Pounds): 112 Objective General Appearance: WD/WN, lethargic EENT: normal ENT inspection Neck: normal alignment Cardiovascular: normal peripheral pulses, normal rate Respiratory/Chest: chest wall non-tender, lungs clear, normal breath sounds Abdomen: normal bowel sounds, non tender, soft, no organomegaly Edema: no edema noted Arm (L), no edema noted Arm (R) Neurologic: unresponsive Assessment/Plan Problem List: (1) Pneumonia ICD Codes: J18.9 - Pneumonia, unspecified organism SNOMED: 712806696 Qualifiers: Qualified Codes: J18.9 - Pneumonia, unspecified organism (2) Sickle cell anemia ICD Codes: D57.1 - Sickle-cell disease without crisis SNOMED: 940150917 Qualifiers: Qualified Codes: D57.00 - Hb-SS disease with crisis, unspecified (3) Severe sepsis ICD Codes: A41.9 - Sepsis, unspecified organism; R65.20 - Severe sepsis without septic shock SNOMED: 32604303 Status: stable, not improved Assessment/Plan: neuro checks lactulose prn ivf as needed cont vent support resp care gt feeds iv abx per ID follow up albs monitor h/h transfuse as needed PPI rx eeg- no szs keppra rx family requesting referral to Lalo Urena MD Aug 23, 2020 17:12
--- NOTE | 2020-08-23 17:12 | Critical Care Progress Note ---
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 Port-A-Cath Status post removal of implanted right chest wall Port-A-Cath Sickle cell crisis Sickle cell anemia Chronic respiratory failure, ventilator dependent, with tracheostomy status Transaminitis Seizure disorder acute pneumonia leukocytosis recurrent sepsis PLAN care noted IV antibiotics per ID respiratory care as is Ventilatory support- pressure control; maintain as is SNF meds supportive care suction no wean planned monitor wbc per ID oxygen therapy and titrate prognosis guarded medications/laboratory data/nursing notes reviewed in detail note reviewed and edited care discussed with RN and RT Critical Care - Subjective Interval Events: care noted on vent wbc high antibiotics stopped ROS Limited/Unobtainable: Yes EKG Rhythm: Sinus Rhythm Residuals: minimal Tube Feeding Tolerated: yes I&O: Intake and Output 08/22/20 08/23/20 19:00 07:00 Intake Total 670 ml 855 ml Output Total 1700 ml 2050 ml Balance -1030 ml -1195 ml Free Water 60 ml IV Total 155 ml Tube Feeding 610 ml 700 ml Output Urine Total 1500 ml 2000 ml Stool Total 200 ml 50 ml Critical Care - Objective Last 24 Hour Vital Signs Date Time Temp Pulse Resp B/P (MAP) Pulse Ox O2 Delivery O2 Flow Rate FiO2 08/23/20 16:00 Mechanical Ventilator 08/23/20 16:00 60 08/23/20 16:00 97.7 79 17 126/79 (95) 98 08/23/20 15:59 69 18 40 08/23/20 12:40 71 18 40 08/23/20 12:00 40 08/23/20 12:00 77 08/23/20 12:00 98.8 73 18 123/73 (90) 96 08/23/20 12:00 Mechanical Ventilator 08/23/20 10:46 74 18 40 08/23/20 08:52 58 18 40 08/23/20 08:00 Mechanical Ventilator 08/23/20 08:00 64 08/23/20 08:00 98.1 69 18 116/76 (89) 95 08/23/20 08:00 40 08/23/20 07:23 67 18 40 08/23/20 04:00 40 08/23/20 04:00 Mechanical Ventilator 08/23/20 04:00 60 08/23/20 04:00 98.0 67 18 115/64 (81) 100 08/23/20 03:26 75 18 60 08/23/20 00:00 40 08/23/20 00:00 98.0 72 18 118/67 (84) 99 08/23/20 00:00 93 08/23/20 00:00 Mechanical Ventilator 08/22/20 23:29 80 18 60 08/22/20 20:00 63 08/22/20 20:00 98.2 56 18 128/70 (89) 98 08/22/20 20:00 Mechanical Ventilator 08/22/20 20:00 40 08/22/20 18:45 54 18 40 Objective: WDWN NAD reduced breath sounds bilaterally without rhonchi or wheeze [id number] without MRG NABS nontender GT no CCE reduced LOC James Nuñez MD Aug 23, 2020 17:12
--- NOTE | 2020-08-23 17:50 | NUR ---
NURSE NOTES: RECEIVED LAB REPORT FROM [facility] STATING COVID -19 TEST IS NEGATIVE. Marielos EDWARDS MADE AWARE AND NOTIFIED. WILL CONT TO MONITOR.
--- NOTE | 2020-08-23 19:41 | NUR ---
HAND-OFF: Report given to .MANJU STODDARD.
--- NOTE | 2020-08-23 19:42 | NUR ---
NURSE NOTES: Report received from ARLYN Lindsey. Pt awake, alert. Able to make needs known with hand signals. 5 lead EKG shows SR. Vent settings A/C 18, Vt 450, P0 FiO2 60% saturating at 98%. G-tube site patent with 0 residual. running Vital AF at 70 cc. No bleeding noted. Bed kept in lowest and locked position. Bed alarm on. Call light within reach. Will continue to monitor.
[2020-08-23 20:00] VITALS: BP 124/78
--- NOTE | 2020-08-23 20:30 | NUR ---
NURSE NOTES: Mom visiting at bedside. Asking when patient will be discharged. Pt continues to ask for pain medications, in stable condition.
[2020-08-23 20:32] LABS: HEMATOCRIT 22.5 % (42.0-52.0); HEMOGLOBIN 7.4 G/DL (14.2-18.0); MEAN CORPUSCULAR VOLUME 101 FL (80-99); PLATELET COUNT 503 K/UL (150-450); RED BLOOD COUNT 2.23 M/UL (4.70-6.10); RED CELL DISTRIBUTION WIDTH 17.6 % (11.6-14.8)
[2020-08-23 20:34] LABS: WHITE BLOOD COUNT 25.5 K/UL (4.8-10.8)
[2020-08-23 20:42] LABS: ALANINE AMINOTRANSFERASE 102 U/L (12-78); ALBUMIN 2.6 G/DL (3.4-5.0); ALBUMIN/GLOBULIN RATIO 0.4 (1.0-2.7); ALKALINE PHOSPHATASE 540 U/L (46-116); ANION GAP 10 mmol/L (5-15); ASPARTATE AMINO TRANSFERASE 81 U/L (15-37); BILIRUBIN,TOTAL 1.1 MG/DL (0.2-1.0); BLOOD UREA NITROGEN 39 mg/dL (7-18); CARBON DIOXIDE 23 MMOL/L (21-32); CHLORIDE 110 MMOL/L (98-107); POTASSIUM 4.1 MMOL/L (3.5-5.1); SODIUM 143 MMOL/L (136-145)
[2020-08-23 20:46] LABS: BILIRUBIN,DIRECT 0.5 MG/DL (0.0-0.3)
--- NOTE | 2020-08-23 20:50 | General Progress Note ---
Subjective Allergies: Coded Allergies: ADHESIVE TAPE (Verified Allergy, Unknown, 07/20/20) Uncoded Allergies: TAPE (Allergy, Unknown, 08/07/20) Subjective above noted NAD , Calm on TF LFT still elevated Objective Last 24 Hour Vital Signs Date Time Temp Pulse Resp B/P (MAP) Pulse Ox O2 Delivery O2 Flow Rate FiO2 08/23/20 19:47 65 18 60 08/23/20 16:00 77 08/23/20 16:00 Mechanical Ventilator 08/23/20 16:00 60 08/23/20 16:00 97.7 79 17 126/79 (95) 98 08/23/20 15:59 69 18 40 08/23/20 12:40 71 18 40 08/23/20 12:00 40 08/23/20 12:00 77 08/23/20 12:00 98.8 73 18 123/73 (90) 96 08/23/20 12:00 Mechanical Ventilator 08/23/20 10:46 74 18 40 08/23/20 08:52 58 18 40 08/23/20 08:00 Mechanical Ventilator 08/23/20 08:00 64 08/23/20 08:00 98.1 69 18 116/76 (89) 95 08/23/20 08:00 40 08/23/20 07:23 67 18 40 08/23/20 04:00 40 08/23/20 04:00 Mechanical Ventilator 08/23/20 04:00 60 08/23/20 04:00 98.0 67 18 115/64 (81) 100 08/23/20 03:26 75 18 60 08/23/20 00:00 40 08/23/20 00:00 98.0 72 18 118/67 (84) 99 08/23/20 00:00 93 08/23/20 00:00 Mechanical Ventilator 08/22/20 23:29 80 18 60 Intake and Output 08/22/20 08/23/20 19:00 07:00 Intake Total 670 ml 925 ml Output Total 1700 ml 2050 ml Balance -1030 ml -1125 ml Free Water 60 ml IV Total 155 ml Tube Feeding 610 ml 770 ml Output Urine Total 1500 ml 2000 ml Stool Total 200 ml 50 ml Laboratory Tests 08/23/20 16:00: White Blood Count 25.5*H, Red Blood Count 2.23L, Hemoglobin 7.4L, Hematocrit 22.5L, Mean Corpuscular Volume 101H, Mean Corpuscular Hemoglobin 33.2H, Mean Corpuscular Hemoglobin Concent 32.9, Red Cell Distribution Width 17.6H, Platelet Count 503H, Mean Platelet Volume 8.7, Neutrophils (%) (Auto) , Lymphocytes (%) (Auto) , Monocytes (%) (Auto) , Eosinophils (%) (Auto) , Basophils (%) (Auto) , Neutrophils % (Manual) [Pending], Lymphocytes % (Manual) [Pending], Platelet Estimate [Pending], Platelet Morphology [Pending], Reticulocyte Count 5.4H, Sodium Level 143, Potassium Level 4.1, Chloride Level 110H, Carbon Dioxide Level 23, Anion Gap 10, Blood Urea Nitrogen 39H, Creatinine 1.0, Estimat Glomerular Fi ltration Rate > 60, Glucose Level 93, Calcium Level 9.0, Total Bilirubin 1.1H, Direct Bilirubin 0.5H, Aspartate Amino Transf (AST/SGOT) 81H, Alanine Aminotransferase (ALT/SGPT) 102H, Alkaline Phosphatase 540H, Total Protein 8.4H, Albumin 2.6L, Globulin 5.8, Albumin/Globulin Ratio 0.4L Height (Feet): 5 Height (Inches): 10.00 Weight (Pounds): 112 Objective Thin AA Man HEENT s/p craniotomy neck (+) trach Coarse BS RR/tachy abd soft (+) GT no edema 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 +/- sepsis - sickle cell crisis - severe anemia - transfuse PRN - hypotension - TF intolerance - leukocytosis/PNA/Sepsis - TF intolerance due to sepsis - seizure d/o - s/p trach and PEG - guarded Recommendations - Continue TF - follow residual - PPI - GT care - Elevate HOB - check GABINO/AMA/hepatitis serologies - negative - hydration - ATC reglan - can consider liver biopsy if abnormal LFT persists beyond sickle crisis Nasrin Stiles MD Aug 23, 2020 20:49
[2020-08-23] MEDS: Dyna-Hex 2% Top Sol 2oz TOPIC SCH (21:18)
[2020-08-23] MEDS: Acetaminophen 650mg/20.3ml GT PRN (21:19)
[2020-08-24] VITALS: BP 118/69
--- NOTE | 2020-08-24 02:05 | NUR ---
NURSE NOTES: Pt. resting comfortably. No signs of pain or distress noted.
[2020-08-24 04:00] VITALS: BP 120/77
[2020-08-24 04:32] LABS: HEMATOCRIT 20.6 % (42.0-52.0); MEAN CORPUSCULAR VOLUME 94 FL (80-99); PLATELET COUNT 446 K/UL (150-450); RED BLOOD COUNT 2.19 M/UL (4.70-6.10); RED CELL DISTRIBUTION WIDTH 16.7 % (11.6-14.8)
[2020-08-24 04:46] LABS: WHITE BLOOD COUNT 23.9 K/UL (4.8-10.8)
--- NOTE | 2020-08-24 06:42 | NUR ---
NURSE HAND-OFF REPORT: Important Events on Shift: WBC & H&H appears tp be trending down Patient Status: Stable Diet: Vital AF Pending Orders: N Pending Results/Labs: Y Pending MD notification: N Latest Vital Signs: Temperature 98.3 , Pulse 62 , B/P 120 /77 , Respiratory Rate 18 , O2 SAT 100 , Mechanical Ventilator, O2 Flow Rate . Vital Sign Comment: EKG Rhythm: Sinus Rhythm Rhythm change?: N MD Notified?: N -Dr Regan JIMENEZ Response: Latest Stevens Fall Score: 50 Fall Risk: High Risk Safety Measures: Call light Within Reach, Bed Alarm Zone 2, Side Rails Side Rails x2, Bed position Low and Locked. Fall Precautions: Yellow Socks Yellow Gown Door Sign Patient Fall Education Report given to ARLYN Mccormick.
--- NOTE | 2020-08-24 07:15 | NUR ---
NURSE NOTES: Received report from ARLYN Grajeda staff of [facility]. Pt is in bed with HOB elevated at 45*. Pt is awake, watching tv, alert to name but with period of confusion. Pt is trach to vent dependent and tolerating well current vent setting with O2 sat of 98%. Pt's GT is patent and intact running Vital AF @ 70 mL/hr. and tolerating well, no residue noted at this time. Rectal tube in place, draining light, brownish, liquid yellow stool. Overton catheter is draining well, sandy, yellow urine color. PICC line in R upper arm is patent and intact. Full body assessment done and pt is repositioned. Bed is in lowest position, bed alarm on, call light within reached. Will continue to monitor patient. Will continue with the plan of care.
[2020-08-24 08:00] VITALS: BP 128/80
--- NOTE | 2020-08-24 08:41 | Hematology/Onc Progress Note ---
Assessment/Plan Assessment/Plan Assessment and Recs # Sickle cell crisis noted upon admission, with hx of sickle cell anemia --> hgb 6.5-->7.1-->6.6->>>>7.3-->7.1 -->6.7-->6.5-->6.8->7 --> 1 unit prbc on 07/23 --> ivfs have been started --> anemia panel ordered, with elev ferritin --> recommend to consider hydrea when discharged if stable --> likely does have mild hemolysis --> hgb electrophoresis show evidence of sickle cell trait # Hyperferritinemia with elevated ferritin that was noted --> likely consider exjade once discharged though at this time not limiting --> ferritin can >2000 with recurrent transfusions --> trend over time, for EOD observe # Leukocytosis poa with Severe sepsis due to line infection --> abx: vancomycin-->cefepime/colistin-->cefepime --> wbc 25-->31-->29-->25 # Respiratory failure s/p Ventilator dependent --> as per pulm, vent adjustment # Port-A-Cath in place --> s/p abx --> s/p permacath removal # Transaminitis -->liver function elevated --> per gi # Dt ppx heparin sq The timing of this note does not necessarily reflect the time of the patient was seen. Greatly appreciate consultation. Subjective HEENT: Denies: no symptoms, eye pain, blurred vision, tearing, double vision, ear pain, ear discharge, nose pain, nose congestion, throat pain, throat swel ling, mouth pain, mouth swelling, other Cardiovascular: Denies: no symptoms, chest pain, edema, irregular heart rate, lightheadedness, palpitations, syncope, other Respiratory: Denies: no symptoms, cough, shortness of breath, SOB with excertion, SOB at rest, sputum, wheezing, other Gastrointestinal/Abdominal: Denies: no symptoms, abdomen distended, abdominal pain, black stools, tarry stools, blood in stool, constipated, diarrhea, difficulty swallowing, nausea, poor appetite, poor fluid intake, rectal bleeding, vomiting, other Genitourinary: Denies: no symptoms, burning, discharge, frequency, flank pain, hematuria, incontinence, pain, urgency, other Endocrine: Denies: no symptoms, excessive sweating, flushing, intolerance to cold, intolerance to heat, increased hunger, increased thirst, increased urine, unexplained weight gain, unexplained weight loss, other Hematologic/Lymphatic: Denies: no symptoms, anemia, easy bleeding, easy bruising, adenopathy, other Allergies: Coded Allergies: ADHESIVE TAPE (Verified Allergy, Unknown, 07/20/20) Uncoded Allergies: TAPE (Allergy, Unknown, 08/07/20) Subjective 08/19 no acute events, vent, iv abx, labs reviewed 08/20 labs reviewed, seen by Dr. Celaya and dw Rn, holding off prbc 08/21 remains on abx with persistently elev wbc, on abx broad spectrum 08/22 labs reviewed, no bleeding, meds noted, wbc still 25k, hgb 6.8, transfuse pr 08/23 cbc has been ordered, meds noted, on cefepime, have dw path is flow back 08/24 hob is elevated, labs noted, hgb 7, consider for transfusions soon, wbc is better Objective Objective Current Medications Medications (Trade) Dose Ordered Sig/Piedad Route PRN Reason Start Time Stop Time Status Last Admin Dose Admin Acetaminophen (Tylenol) 650 mg Q6H PRN GT Temp >100.5 08/10/20 20:20 09/09/20 20:19 08/23/20 21:19 Chlorhexidine Gluconate (Christy-Hex 2%) 1 applic DAILY@2000 TOPIC 08/14/20 20:00 11/12/20 19:59 08/23/20 21:18 Famotidine (Pepcid) 20 mg DAILY GT 08/11/20 09:00 11/06/20 08:59 08/23/20 10:09 Folic Acid (Folate) 1 mg DAILY GT 08/11/20 09:00 09/07/20 08:59 08/23/20 09:00 Heparin Sodium (Porcine) (Heparin 5000 units/ml) 5,000 units EVERY 12 HOURS SUBQ 08/10/20 21:00 09/22/20 20:59 08/23/20 21:17 Levetiracetam 100 ml @ 400 mls/hr Q12HR IVPB 08/14/20 10:00 11/12/20 09:59 08/23/20 21:18 Metoclopramide HCl (Reglan) 10 mg Q6H PRN IVP Nausea & Vomiting 08/21/20 21:45 09/20/20 21:44 Multivitamins (Multivitamins) 1 tab DAILY GT 08/11/20 09:00 09/07/20 08:59 08/23/20 10:09 Pantoprazole (Protonix) 40 mg EVERY 12 HOURS IVP 08/13/20 22:15 09/12/20 22:14 08/23/20 21:18 Last 24 Hour Vital Signs Date Time Temp Pulse Resp B/P (MAP) Pulse Ox O2 Delivery O2 Flow Rate FiO2 08/24/20 07:11 65 19 60 08/24/20 04:00 60 08/24/20 04:00 Mechanical Ventilator 08/24/20 04:00 98.3 62 18 120/77 (91) 100 08/24/20 03:51 60 08/24/20 03:51 59 18 60 08/24/20 00:00 Mechanical Ventilator 08/24/20 00:00 98.0 63 18 118/69 (85) 98 08/23/20 23:33 60 18 60 08/23/20 23:29 64 08/23/20 21:49 98.1 08/23/20 20:00 60 08/23/20 20:00 Mechanical Ventilator 08/23/20 20:00 60 08/23/20 20:00 98.1 69 18 124/78 (93) 98 08/23/20 19:47 65 18 60 08/23/20 16:00 77 08/23/20 16:00 Mechanical Ventilator 08/23/20 16:00 60 08/23/20 16:00 97.7 79 17 126/79 (95) 98 08/23/20 15:59 69 18 40 08/23/20 12:40 71 18 40 08/23/20 12:00 40 08/23/20 12:00 77 08/23/20 12:00 98.8 73 18 123/73 (90) 96 08/23/20 12:00 Mechanical Ventilator 08/23/20 10:46 74 18 40 08/23/20 08:52 58 18 40 08/23/20 08:00 Mechanical Ventilator 08/23/20 08:00 64 08/23/20 08:00 98.1 69 18 116/76 (89) 95 08/23/20 08:00 40 08/23/20 07:23 67 18 40 08/23/20 04:00 40 08/23/20 04:00 Mechanical Ventilator 08/23/20 04:00 60 08/23/20 04:00 98.0 67 18 115/64 (81) 100 08/23/20 03:26 75 18 60 08/23/20 00:00 40 08/23/20 00:00 98.0 72 18 118/67 (84) 99 08/23/20 00:00 93 08/23/20 00:00 Mechanical Ventilator 08/22/20 23:29 80 18 60 08/22/20 20:00 63 08/22/20 20:00 98.2 56 18 128/70 (89) 98 08/22/20 20:00 Mechanical Ventilator 08/22/20 20:00 40 08/22/20 18:45 54 18 40 08/22/20 16:00 98.2 52 18 126/72 (90) 100 08/22/20 16:00 54 08/22/20 16:00 Mechanical Ventilator 08/22/20 16:00 40 08/22/20 15:08 52 18 40 08/22/20 12:00 97.9 53 18 110/81 (91) 100 08/22/20 12:00 40 08/22/20 12:00 52 08/22/20 12:00 Mechanical Ventilator 08/22/20 11:26 58 18 40 Intake and Output 08/23/20 08/24/20 19:00 07:00 Intake Total 1200 ml 1240 ml Output Total 1400 ml 1100 ml Balance -200 ml 140 ml Free Water 260 ml IV Total 100 ml 400 ml Tube Feeding 840 ml 840 ml Output Urine Total 1300 ml 1000 ml Stool Total 100 ml 100 ml Labs Test 08/22/20 03:00 08/22/20 03:10 08/22/20 12:01 08/23/20 16:00 Sodium Level 145 MMOL/L (136-145) 143 MMOL/L (136-145) Potassium Level 3.9 MMOL/L (3.5-5.1) 4.1 MMOL/L (3.5-5.1) Chloride Level 113 MMOL/L (98-107) 110 MMOL/L (98-107) Carbon Dioxide Level 21 MMOL/L (21-32) 23 MMOL/L (21-32) Anion Gap 11 mmol/L (5-15) 10 mmol/L (5-15) Blood Urea Nitrogen 33 mg/dL (7-18) 39 mg/dL (7-18) Creatinine 1.0 MG/DL (0.55-1.30) 1.0 MG/DL (0.55-1.30) Estimat Glomerular Filtration Rate > 60 mL/min (>60) > 60 mL/min (>60) Glucose Level 93 MG/DL (74-106) 93 MG/DL (74-106) Calcium Level 9.1 MG/DL (8.5-10.1) 9.0 MG/DL (8.5-10.1) Total Bilirubin 1.1 MG/DL (0.2-1.0) 1.1 MG/DL (0.2-1.0) Direct Bilirubin 0.4 MG/DL (0.0-0.3) 0.5 MG/DL (0.0-0.3) Aspartate Amino Transf (AST/SGOT) 81 U/L (15-37) 81 U/L (15-37) Alanine Aminotransferase (ALT/SGPT) 91 U/L (12-78) 102 U/L (12-78) Alkaline Phosphatase 508 U/L (46-116) 540 U/L (46-116) Total Protein 7.4 G/DL (6.4-8.2) 8.4 G/DL (6.4-8.2) Albumin 2.2 G/DL (3.4-5.0) 2.6 G/DL (3.4-5.0) Globulin 5.2 g/dL 5.8 g/dL Albumin/Globulin Ratio 0.4 (1.0-2.7) 0.4 (1.0-2.7) White Blood Count 25.0 K/UL (4.8-10.8) 25.5 K/UL (4.8-10.8) Red Blood Count 2.14 M/UL (4.70-6.10) 2.23 M/UL (4.70-6.10) Hemoglobin 6.8 G/DL (14.2-18.0) 7.4 G/DL (14.2-18.0) Hematocrit 20.8 % (42.0-52.0) 22.5 % (42.0-52.0) Mean Corpuscular Volume 97 FL (80-99) 101 FL (80-99) Mean Corpuscular Hemoglobin 31.6 PG (27.0-31.0) 33.2 PG (27.0-31.0) Mean Corpuscular Hemoglobin Concent 32.4 G/DL (32.0-36.0) 32.9 G/DL (32.0-36.0) Red Cell Distribution Width 16.9 % (11.6-14.8) 17.6 % (11.6-14.8) Platelet Count 473 K/UL (150-450) 503 K/UL (150-450) Mean Platelet Volume 7.9 FL (6.5-10.1) 8.7 FL (6.5-10.1) Neutrophils (%) (Auto) % (45.0-75.0) % (45.0-75.0) Lymphocytes (%) (Auto) % (20.0-45.0) % (20.0-45.0) Monocytes (%) (Auto) % (1.0-10.0) % (1.0-10.0) Eosinophils (%) (Auto) % (0.0-3.0) % (0.0-3.0) Basophils (%) (Auto) % (0.0-2.0) % (0.0-2.0) Differential Total Cells Counted 100 100 Neutrophils % (Manual) 67 % (45-75) 72 % (45-75) Lymphocytes % (Manual) 16 % (20-45) 18 % (20-45) Monocytes % (Manual) 7 % (1-10) 6 % (1-10) Eosinophils % (Manual) 10 % (0-3) 4 % (0-3) Basophils % (Manual) 0 % (0-2) 0 % (0-2) Band Neutrophils 0 % (0-8) 0 % (0-8) Nucleated Red Blood Cells 1 /100 WBC Platelet Estimate Increased Increased Platelet Morphology Normal Normal Anisocytosis 1+ 2+ POC Whole Blood Glucose 87 MG/DL (74-106) Polychromasia 2+ Macrocytosis 1+ Reticulocyte Count 5.4 % (0.5-2.0) Test 08/24/20 04:00 White Blood Count 23.9 K/UL (4.8-10.8) Red Blood Count 2.19 M/UL (4.70-6.10) Hemoglobin 7.0 G/DL (14.2-18.0) Hematocrit 20.6 % (42.0-52.0) Mean Corpuscular Volume 94 FL (80-99) Mean Corpuscular Hemoglobin 31.9 PG (27.0-31.0) Mean Corpuscular Hemoglobin Concent 34.0 G/DL (32.0-36.0) Red Cell Distribution Width 16.7 % (11.6-14.8) Platelet Count 446 K/UL (150-450) Mean Platelet Volume 8.3 FL (6.5-10.1) Neutrophils (%) (Auto) % (45.0-75.0) Lymphocytes (%) (Auto) % (20.0-45.0) Monocytes (%) (Auto) % (1.0-10.0) Eosinophils (%) (Auto) % (0.0-3.0) Basophils (%) (Auto) % (0.0-2.0) Micro Microbiology Date/Time Source Procedure Growth Status 08/23/20 16:00 Nasopharynx SARS-CoV-2 RdRp Gene Assay - Final Complete Height (Feet): 5 Height (Inches): 10.00 Weight (Pounds): 112 Objective Physical Exam General: alert, Chronically Ill Head: other - Large right-sided craniotomy defect well-heale ++, tracheotomy/vent Respiratory: crackles, rales, other - right side chest wall tenderness Cardiovascular: tachycardia Gastrointestinal: normal inspection, soft, gt++ Musk: decreased range of motion, other - atrophic, motor weakness Neurologic: alert, motor weakness, other - left hemineglect Psychiatric: normal inspection Skin: no rash : garcia++ Roshan Castillo MD Aug 24, 2020 08:41
--- NOTE | 2020-08-24 09:11 | Critical Care Progress Note ---
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 Port-A-Cath Status post removal of implanted right chest wall Port-A-Cath Sickle cell crisis Sickle cell anemia Chronic respiratory failure, ventilator dependent, with tracheostomy status Transaminitis Seizure disorder acute pneumonia leukocytosis recurrent sepsis PLAN care noted IV antibiotics per ID respiratory care as is Ventilatory support- pressure control; maintain as is SNF meds supportive care suction no wean planned monitor wbc per ID oxygen therapy and titrate prognosis guarded medications/laboratory data/nursing notes reviewed in detail note reviewed and edited care discussed with RN and RT Critical Care - Subjective ROS Limited/Unobtainable: Yes Condition: critical EKG Rhythm: Sinus Rhythm Residuals: minimal Tube Feeding Tolerated: yes I&O: Intake and Output 08/23/20 08/24/20 19:00 07:00 Intake Total 1200 ml 1240 ml Output Total 1400 ml 1100 ml Balance -200 ml 140 ml Free Water 260 ml IV Total 100 ml 400 ml Tube Feeding 840 ml 840 ml Output Urine Total 1300 ml 1000 ml Stool Total 100 ml 100 ml Critical Care - Objective Last 24 Hour Vital Signs Date Time Temp Pulse Resp B/P (MAP) Pulse Ox O2 Delivery O2 Flow Rate FiO2 08/24/20 08:00 98.1 84 18 128/80 (96) 100 08/24/20 08:00 Mechanical Ventilator 08/24/20 07:11 65 19 60 08/24/20 04:00 60 08/24/20 04:00 Mechanical Ventilator 08/24/20 04:00 98.3 62 18 120/77 (91) 100 08/24/20 03:51 60 08/24/20 03:51 59 18 60 08/24/20 00:00 Mechanical Ventilator 08/24/20 00:00 98.0 63 18 118/69 (85) 98 08/23/20 23:33 60 18 60 08/23/20 23:29 64 08/23/20 21:49 98.1 08/23/20 20:00 60 08/23/20 20:00 Mechanical Ventilator 08/23/20 20:00 60 08/23/20 20:00 98.1 69 18 124/78 (93) 98 08/23/20 19:47 65 18 60 08/23/20 16:00 77 08/23/20 16:00 Mechanical Ventilator 08/23/20 16:00 60 08/23/20 16:00 97.7 79 17 126/79 (95) 98 08/23/20 15:59 69 18 40 08/23/20 12:40 71 18 40 08/23/20 12:00 40 08/23/20 12:00 77 08/23/20 12:00 98.8 73 18 123/73 (90) 96 08/23/20 12:00 Mechanical Ventilator 08/23/20 10:46 74 18 40 Objective: WDWN NAD reduced breath sounds bilaterally without rhonchi or wheeze [id number] without MRG NABS nontender GT no CCE reduced LOC Micro: Microbiology Date/Time Source Procedure Growth Status 08/23/20 16:00 Nasopharynx SARS-CoV-2 RdRp Gene Assay - Final Complete James Nuñez MD Aug 24, 2020 09:11
[2020-08-24] MEDS: Pantoprazole Inj IVP SCH ×2 (09:22→20:02)
[2020-08-24] MEDS: levETIRAcetam 1,000mg/NS100ml 100 ML IVPB SCH ×2 (09:23→20:02)
[2020-08-24] MEDS: Heparin 5000 units/ml inj SUBQ SCH ×2 (09:25→20:04)
--- NOTE | 2020-08-24 10:00 | NUR ---
NURSE NOTES: Pt is bathed, and repositioned. Full body assessment is done. Medications are give. Pt is awake and watching tv. No signs of distress noted. Will continue to monitor pt.
--- NOTE | 2020-08-24 10:40 | Infectious Diseases Prog Note ---
Assessment/Plan Assessment/Plan A: 1. MRSA sepsis. 2. Aspiration pneumonia MRSA, Pseudomonas & Serratia in culture COVID19 X 1: negative. 3. Leukemoid reaction. 4. Sickle cell disease. 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 VDRF 8. Femoral line infection, line removed 9. New Serratia sepsis treated PLAN: 1. Observe off antibiotic Subjective ROS Limited/Unobtainable: Yes Musculoskeletal: Reports: pain Allergies: Coded Allergies: ADHESIVE TAPE (Verified Allergy, Unknown, 07/20/20) Uncoded Allergies: TAPE (Allergy, Unknown, 08/07/20) Objective Last 24 Hour Vital Signs Date Time Temp Pulse Resp B/P (MAP) Pulse Ox O2 Delivery O2 Flow Rate FiO2 08/24/20 08:00 84 08/24/20 08:00 98.1 84 18 128/80 (96) 100 08/24/20 08:00 Mechanical Ventilator 08/24/20 08:00 60 08/24/20 07:11 65 19 60 08/24/20 04:00 60 08/24/20 04:00 Mechanical Ventilator 08/24/20 04:00 98.3 62 18 120/77 (91) 100 08/24/20 03:51 60 08/24/20 03:51 59 18 60 08/24/20 00:00 Mechanical Ventilator 08/24/20 00:00 98.0 63 18 118/69 (85) 98 08/23/20 23:33 60 18 60 08/23/20 23:29 64 08/23/20 21:49 98.1 08/23/20 20:00 60 08/23/20 20:00 Mechanical Ventilator 08/23/20 20:00 60 08/23/20 20:00 98.1 69 18 124/78 (93) 98 08/23/20 19:47 65 18 60 08/23/20 16:00 77 08/23/20 16:00 Mechanical Ventilator 08/23/20 16:00 60 08/23/20 16:00 97.7 79 17 126/79 (95) 98 08/23/20 15:59 69 18 40 08/23/20 12:40 71 18 40 08/23/20 12:00 40 08/23/20 12:00 77 08/23/20 12:00 98.8 73 18 123/73 (90) 96 08/23/20 12:00 Mechanical Ventilator 08/23/20 10:46 74 18 40 Height (Feet): 5 Height (Inches): 10.00 Weight (Pounds): 112 General Appearance: cachetic HEENT: status post trach, other - R craniotomy Respiratory/Chest: decreased breath sounds, other - on ventilator Cardiovascular: normal rate, other - PICC line Abdomen: soft, non tender, other - GT feeding Extremities: no edema Neurologic/Psychiatric: alert, responsive Musculoskeletal: atrophy Microbiology Date/Time Source Procedure Growth Status 08/23/20 16:00 Nasopharynx SARS-CoV-2 RdRp Gene Assay - Final Complete Laboratory Tests Test 08/23/20 16:00 08/24/20 04:00 White Blood Count 25.5 K/UL (4.8-10.8) *H 23.9 K/UL (4.8-10.8) *H Red Blood Count 2.23 M/UL (4.70-6.10) L 2.19 M/UL (4.70-6.10) L Hemoglobin 7.4 G/DL (14.2-18.0) L 7.0 G/DL (14.2-18.0) L Hematocrit 22.5 % (42.0-52.0) L 20.6 % (42.0-52.0) L Mean Corpuscular Volume 101 FL (80-99) H 94 FL (80-99) Mean Corpuscular Hemoglobin 33.2 PG (27.0-31.0) H 31.9 PG (27.0-31.0) H Mean Corpuscular Hemoglobin Concent 32.9 G/DL (32.0-36.0) 34.0 G/DL (32.0-36.0) Red Cell Distribution Width 17.6 % (11.6-14.8) H 16.7 % (11.6-14.8) H Platelet Count 503 K/UL (150-450) H 446 K/UL (150-450) Mean Platelet Volume 8.7 FL (6.5-10.1) 8.3 FL (6.5-10.1) Neutrophils (%) (Auto) % (45.0-75.0) % (45.0-75.0) Lymphocytes (%) (Auto) % (20.0-45.0) % (20.0-45.0) Monocytes (%) (Auto) % (1.0-10.0) % (1.0-10.0) Eosinophils (%) (Auto) % (0.0-3.0) % (0.0-3.0) Basophils (%) (Auto) % (0.0-2.0) % (0.0-2.0) Differential Total Cells Counted 100 100 Neutrophils % (Manual) 72 % (45-75) 70 % (45-75) Lymphocytes % (Manual) 18 % (20-45) L 20 % (20-45) Monocytes % (Manual) 6 % (1-10) 5 % (1-10) Eosinophils % (Manual) 4 % (0-3) H 5 % (0-3) H Basophils % (Manual) 0 % (0-2) 0 % (0-2) Band Neutrophils 0 % (0-8) 0 % (0-8) Platelet Estimate Increased H Adequate Platelet Morphology Normal Normal Polychromasia 2+ Anisocytosis 2+ 1+ Macrocytosis 1+ Reticulocyte Count 5.4 % (0.5-2.0) H Sodium Level 143 MMOL/L (136-145) Potassium Level 4.1 MMOL/L (3.5-5.1) Chloride Level 110 MMOL/L (98-107) H Carbon Dioxide Level 23 MMOL/L (21-32) Anion Gap 10 mmol/L (5-15) Blood Urea Nitrogen 39 mg/dL (7-18) H Creatinine 1.0 MG/DL (0.55-1.30) Estimat Glomerular Filtration Rate > 60 mL/min (>60) Glucose Level 93 MG/DL (74-106) Calcium Level 9.0 MG/DL (8.5-10.1) Total Bilirubin 1.1 MG/DL (0.2-1.0) H Direct Bilirubin 0.5 MG/DL (0.0-0.3) H Aspartate Amino Transf (AST/SGOT) 81 U/L (15-37) H Alanine Aminotransferase (ALT/SGPT) 102 U/L (12-78) H Alkaline Phosphatase 540 U/L (46-116) H Total Protein 8.4 G/DL (6.4-8.2) H Albumin 2.6 G/DL (3.4-5.0) L Globulin 5.8 g/dL Albumin/Globulin Ratio 0.4 (1.0-2.7) L Hypochromasia 1+ Current Medications Medications (Trade) Dose Ordered Sig/Piedad Route PRN Reason Start Time Stop Time Status Last Admin Dose Admin Acetaminophen (Tylenol) 650 mg Q6H PRN GT Temp >100.5 08/10/20 20:20 09/09/20 20:19 08/23/20 21:19 Chlorhexidine Gluconate (Christy-Hex 2%) 1 applic DAILY@2000 TOPIC 08/14/20 20:00 11/12/20 19:59 08/23/20 21:18 Famotidine (Pepcid) 20 mg DAILY GT 08/11/20 09:00 11/06/20 08:59 08/24/20 09:22 Folic Acid (Folate) 1 mg DAILY GT 08/11/20 09:00 09/07/20 08:59 08/24/20 09:22 Heparin Sodium (Porcine) (Heparin 5000 units/ml) 5,000 units EVERY 12 HOURS SUBQ 08/10/20 21:00 09/22/20 20:59 08/24/20 09:25 Levetiracetam 100 ml @ 400 mls/hr Q12HR IVPB 08/14/20 10:00 11/12/20 09:59 08/24/20 09:23 Metoclopramide HCl (Reglan) 10 mg Q6H PRN IVP Nausea & Vomiting 08/21/20 21:45 09/20/20 21:44 Multivitamins (Multivitamins) 1 tab DAILY GT 08/11/20 09:00 09/07/20 08:59 08/24/20 09:22 Pantoprazole (Protonix) 40 mg EVERY 12 HOURS IVP 08/13/20 22:15 09/12/20 22:14 08/24/20 09:22 Wyatt Kemp MD Aug 24, 2020 10:40
[2020-08-24 12:00] VITALS: BP 152/98
--- NOTE | 2020-08-24 12:04 | NUR ---
RD ASSESSMENT & RECOMMENDATIONS SEE CARE ACTIVITY FOR COMPLETE ASSESSMENT DAILY ESTIMATED NEEDS: Needs based on Underweight, Critical care/ 50.8kg 30-35 kcals/kg 3764-1564 total kcals 1.25-2 g protein/kg 64-102 g total protein 25-30 mL/kg 2975-0966 total fluid mLs NUTRITION DIAGNOSIS: Swallowing difficulty R/T respiratory status, dysphagia as evidenced by h/o craniotomy, trach/vent dep, PEG dep. CURRENT TF:Vital 1.2 @ 70ml/hr x 24 hrs ENTERAL NUTRITION RECOMMENDATIONS: Vital AF 1.2 @ 60ml/hr x 24 hrs to provide 1440ml, 1728kcal, 108g prot, 1168ml free water * LOWER goal rate to 60ml/hr x 24 hrs to not exceed est needs -> meets 100% est needs * HOB over 30 degrees/ water flush per MD ADDITIONAL RECOMMENDATIONS: * Maintain cailbrated bedscale wt * Add probiotics and anti-diarrheal med for diarrhea, +rectal tube * Skin intergrity: TF rec @ goal provides 100% RDI * Monitor lytes, replete as needed * Monitor BGs closely for hypo and hyperglycemia (no further episodes of hypoglycemia BG 67 on 08/16) .
--- NOTE | 2020-08-24 12:20 | NUR ---
NURSE NOTES: Patient's HR increased to 130s. O2 sat decreased to 86%. Pt was assessed, suctioned, and mucous plug was noted. Vital signs were taken and temp. was found to be 100.8. Medication was given as prescribed. Dr Celaya was notified, and he ordered Tylenol 650 Q4 for pain and ordered stat ABG and CXR. Orders were noted and carried out. Will closely monitor pt.
[2020-08-24] MEDS: Acetaminophen 650mg/20.3ml GT PRN ×2 (12:38→22:07)
--- NOTE | 2020-08-24 13:41 | Surgery Progress Note ---
Surgery Progress Note Subjective Additional Comments leukocytosis anemia comfortable no n/v Objective Last 24 Hour Vital Signs Date Time Temp Pulse Resp B/P (MAP) Pulse Ox O2 Delivery O2 Flow Rate FiO2 08/24/20 12:00 100.8 128 28 152/98 (116) 91 08/24/20 12:00 100 08/24/20 12:00 Mechanical Ventilator 08/24/20 12:00 132 08/24/20 10:56 60 18 60 08/24/20 08:00 84 08/24/20 08:00 98.1 84 18 128/80 (96) 100 08/24/20 08:00 Mechanical Ventilator 08/24/20 08:00 60 08/24/20 07:11 65 19 60 08/24/20 04:00 60 08/24/20 04:00 Mechanical Ventilator 08/24/20 04:00 98.3 62 18 120/77 (91) 100 08/24/20 03:51 60 08/24/20 03:51 59 18 60 08/24/20 00:00 Mechanical Ventilator 08/24/20 00:00 98.0 63 18 118/69 (85) 98 08/23/20 23:33 60 18 60 08/23/20 23:29 64 08/23/20 21:49 98.1 08/23/20 20:00 60 08/23/20 20:00 Mechanical Ventilator 08/23/20 20:00 60 08/23/20 20:00 98.1 69 18 124/78 (93) 98 08/23/20 19:47 65 18 60 08/23/20 16:00 77 08/23/20 16:00 Mechanical Ventilator 08/23/20 16:00 60 08/23/20 16:00 97.7 79 17 126/79 (95) 98 08/23/20 15:59 69 18 40 I&O Intake and Output 08/23/20 08/24/20 19:00 07:00 Intake Total 1200 ml 1240 ml Output Total 1400 ml 1100 ml Balance -200 ml 140 ml Free Water 260 ml IV Total 100 ml 400 ml Tube Feeding 840 ml 840 ml Output Urine Total 1300 ml 1000 ml Stool Total 100 ml 100 ml Dressing: other Wound: other Cardiovascular: RSR Respiratory: decreased breath sounds Abdomen: soft, non-tender, present bowel sounds Extremities: no edema, no tenderness, no cyanosis Laboratory Tests Test 08/23/20 16:00 08/24/20 04:00 08/24/20 13:10 White Blood Count 25.5 K/UL (4.8-10.8) *H 23.9 K/UL (4.8-10.8) *H Red Blood Count 2.23 M/UL (4.70-6.10) L 2.19 M/UL (4.70-6.10) L Hemoglobin 7.4 G/DL (14.2-18.0) L 7.0 G/DL (14.2-18.0) L Hematocrit 22.5 % (42.0-52.0) L 20.6 % (42.0-52.0) L Mean Corpuscular Volume 101 FL (80-99) H 94 FL (80-99) Mean Corpuscular Hemoglobin 33.2 PG (27.0-31.0) H 31.9 PG (27.0-31.0) H Mean Corpuscular Hemoglobin Concent 32.9 G/DL (32.0-36.0) 34.0 G/DL (32.0-36.0) Red Cell Distribution Width 17.6 % (11.6-14.8) H 16.7 % (11.6-14.8) H Platelet Count 503 K/UL (150-450) H 446 K/UL (150-450) Mean Platelet Volume 8.7 FL (6.5-10.1) 8.3 FL (6.5-10.1) Neutrophils (%) (Auto) % (45.0-75.0) % (45.0-75.0) Lymphocytes (%) (Auto) % (20.0-45.0) % (20.0-45.0) Monocytes (%) (Auto) % (1.0-10.0) % (1.0-10.0) Eosinophils (%) (Auto) % (0.0-3.0) % (0.0-3.0) Basophils (%) (Auto) % (0.0-2.0) % (0.0-2.0) Differential Total Cells Counted 100 100 Neutrophils % (Manual) 72 % (45-75) 70 % (45-75) Lymphocytes % (Manual) 18 % (20-45) L 20 % (20-45) Monocytes % (Manual) 6 % (1-10) 5 % (1-10) Eosinophils % (Manual) 4 % (0-3) H 5 % (0-3) H Basophils % (Manual) 0 % (0-2) 0 % (0-2) Band Neutrophils 0 % (0-8) 0 % (0-8) Platelet Estimate Increased H Adequate Platelet Morphology Normal Normal Polychromasia 2+ Anisocytosis 2+ 1+ Macrocytosis 1+ Reticulocyte Count 5.4 % (0.5-2.0) H Sodium Level 143 MMOL/L (136-145) Potassium Level 4.1 MMOL/L (3.5-5.1) Chloride Level 110 MMOL/L (98-107) H Carbon Dioxide Level 23 MMOL/L (21-32) Anion Gap 10 mmol/L (5-15) Blood Urea Nitrogen 39 mg/dL (7-18) H Creatinine 1.0 MG/DL (0.55-1.30) Estimat Glomerular Filtration Rate > 60 mL/min (>60) Glucose Level 93 MG/DL (74-106) Calcium Level 9.0 MG/DL (8.5-10.1) Total Bilirubin 1.1 MG/DL (0.2-1.0) H Direct Bilirubin 0.5 MG/DL (0.0-0.3) H Aspartate Amino Transf (AST/SGOT) 81 U/L (15-37) H Alanine Aminotransferase (ALT/SGPT) 102 U/L (12-78) H Alkaline Phosphatase 540 U/L (46-116) H Total Protein 8.4 G/DL (6.4-8.2) H Albumin 2.6 G/DL (3.4-5.0) L Globulin 5.8 g/dL Albumin/Globulin Ratio 0.4 (1.0-2.7) L Hypochromasia 1+ Arterial Blood pH 7.342 (7.350-7.450) Arterial Blood Partial Pressure CO2 35.4 mmHg (35.0-45.0) Arterial Blood Partial Pressure O2 76.2 mmHg (75.0-100.0) Arterial Blood HCO3 18.8 mmol/L (22.0-26.0) L Arterial Blood Oxygen Saturation 92.2 % (95-100) L Arterial Blood Base Excess -6.4 (-2-2) L Iglesia Test Positive Plan Problems: (1) Pneumonia (2) Sickle cell anemia (3) Tachycardia (4) Severe sepsis (5) Sickle cell crisis (6) Sepsis Assessment & Plan: 35-year-old male sickle cell multiple comorbidities history of craniotomy trach feeding tube prior port infected removed see prior admission and consult and operative notes. Currently presents with significant leukocytosis fevers hypotension in intensive care unit wound site evaluated unlikely etiology. Trach evaluated may consider changing. LFTs noted elevated. Ultrasound ordered pending results trend labs continue IV antibiotics appreciate infectious disease input will follow with recommendations thank you for let me participate in patient's care KUB and US noted labs reviewed transfuse prbc prn trach change peg changed line out picc placed persistent wbc h/h noted anemia ss better since new trach Shiley [address] secretions manageable pulmonary arteries: Evaluation for pulmonary embolus is limited due to breathing motion artifact. No central pulmonary emboli are identified. Aorta: No acute findings. No thoracic aortic aneurysm. Lungs: There are moderately consolidating infiltrates identified in both lower lobes dependently with mild additional patchy infiltrates dependently in both upper lobes. The findings are consistent with bilateral nonspecific pneumonia. Aspiration pneumonia could give this appearance. The infiltrates are only somewhat typical of Covid 19. Confidence is immediate. Pleural space: Unremarkable. No significant effusion. No pneumothorax. Heart: Unremarkable. No cardiomegaly. No significant pericardial effusion. No evidence of RV dysfunction. Bones/joints: No acute fracture. No dislocation. Soft tissues: Unremarkable. Lymph nodes: Unremarkable. No enlarged lymph nodes. Tubes, lines and devices: There is a tracheostomy tube in good position. IMPRESSION: 1. There are moderately consolidating infiltrates identified in both lower lobes dependently with mild additional patchy infiltrates dependently in both upper lobes. The findings are consistent with bilateral nonspecific pneumonia. Aspiration pneumonia could give this appearance. The infiltrates are only somewhat typical of Covid 19. Confidence is immediate. 2. Evaluation for pulmonary embolus is limited due to breathing motion artifact. No central pulmonary emboli are identified. The liver is homogeneous. We cannot identify a normal spleen. There is dense crescentic calcification in the left upper quadrant at the expected location of the spleen. Gallbladder is absent. The pancreas is unremarkable. Adrenals are yusef l in morphology. There is a small punctate cortical calcification left kidney. No hydronephrosis bilaterally There is a G-tube in place. Gas-filled bowel loops identified throughout the abdomen and pelvis. No discrete transition point or obstruction. Appendix partially visualized. There is some free fluid in the pelvis. There is no free air. There is a mildly prominent lymph nodes noted in the upper to mid retroperitoneum noted of undetermined etiology or significance. Rivera catheter noted in the bladder. The reservoir for the penile prosthesis is identified in the left lower pelvis. There is a right femoral venous catheter in place. Diffuse sclerosis of the bony pelvis and hips noted of undetermined etiology. IMPRESSION: BILATERAL LOWER LOBE PNEUMONIAS. ALSO SOME HAZY INFILTRATES IN THE UPPER LOBES. A NORMAL SPLEEN IS NOT VISUALIZED. THERE IS A DENSE CRESCENTIC CALCIFICATION LEFT UPPER QUADRANT AT THE EXPECTED LOCATION OF THE SPLEEN. 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 PUNCTATE CORTICAL CALCIFICATION LEFT KIDNEY. NO HYDRONEPHROSIS. PROMINENT LYMPH NODES IN THE UPPER TO MID RETROPERITONEUM OF UNDETERMINED ETIOLOGY OR SIGNIFICANCE. G-TUBE, RIVERA CATHETER, RIGHT FEMORAL CATHETER AND PENILE PROSTHESIS NOTED IN PLACE. MILD DIFFUSE SCLEROSIS OF THE BONY PELVIS AND BOTH HIPS OF UNDETERMINED ETIOLOGY. QUESTION HISTORY OF RENAL OSTEODYSTROPHY. There is a large craniectomy defect in the right frontal temporal region. Diffuse age-related volume loss demonstrated. There are old infarcts and ence phalomalacia noted in the frontal lobes and bilateral insular regions. No definite acute infarct seen. There is no hemorrhage, mass effect or shift. Ventricles and cisterns as well as brainstem and posterior fossa appear unremarkable. The sellar region is normal. Sinuses, mastoid air cells and bony calvarium appear intact. IMPRESSION: Large right frontotemporal craniectomy defect. 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 No definite acute intracranial abnormality. (7) Port-A-Cath in place Assessment & Plan: prior removal for infection site okay dressings changed no active infection from wound picc Harman Zhao Aug 24, 2020 13:41
[2020-08-24] MEDS ORDERED: NS 275ml ONE (14:15)
[2020-08-24] MEDS ORDERED: Sterile Water Irrig 1000ml IRRIG ONE (14:15)
--- NOTE | 2020-08-24 15:06 | Diagnostic Imaging Report ---
Procedure: XRAY Chest 1v Reason for study: Reason For Exam: SOB Comparison films: 08/17/2020. FINDINGS: Tracheostomy and right PICC line remain in place. Vascularity is normal. There is improved aeration of the right lung base. There is also some residual right perihilar infiltrate and mild streaky atelectasis in both lung bases. Cardiac and mediastinal silhouette are within normal limits. There may be trace effusions. The bony thorax appear unremarkable. IMPRESSION: Improved aeration. Some residual right perihilar infiltrates noted.
[2020-08-24 16:00] VITALS: BP 129/74
--- NOTE | 2020-08-24 16:35 | General Progress Note ---
Subjective ROS Limited/Unobtainable: No Constitutional: Reports: malaise, weakness HEENT: Reports: no symptoms Cardiovascular: Reports: no symptoms Respiratory: Reports: sputum Gastrointestinal/Abdominal: Reports: difficulty swallowing Genitourinary: Reports: no symptoms Neurologic/Psychiatric: Reports: no symptoms Endocrine: Reports: no symptoms Hematologic/Lymphatic: Reports: anemia Allergies: Coded Allergies: ADHESIVE TAPE (Verified Allergy, Unknown, 07/20/20) Uncoded Allergies: TAPE (Allergy, Unknown, 08/07/20) All Systems: reviewed and negative except above Subjective alert. events noted. low grade temp. has episode of sob. cxr improved. currently off abx. Objective Last 24 Hour Vital Signs Date Time Temp Pulse Resp B/P (MAP) Pulse Ox O2 Delivery O2 Flow Rate FiO2 08/24/20 16:00 Mechanical Ventilator 08/24/20 15:28 60 24 60 08/24/20 13:08 98.4 08/24/20 12:00 100.8 128 28 152/98 (116) 91 08/24/20 12:00 100 08/24/20 12:00 Mechanical Ventilator 08/24/20 12:00 132 08/24/20 10:56 60 18 60 08/24/20 08:00 84 08/24/20 08:00 98.1 84 18 128/80 (96) 100 08/24/20 08:00 Mechanical Ventilator 08/24/20 08:00 60 08/24/20 07:11 65 19 60 08/24/20 04:00 60 08/24/20 04:00 Mechanical Ventilator 08/24/20 04:00 98.3 62 18 120/77 (91) 100 08/24/20 03:51 60 08/24/20 03:51 59 18 60 08/24/20 00:00 Mechanical Ventilator 08/24/20 00:00 98.0 63 18 118/69 (85) 98 08/23/20 23:33 60 18 60 08/23/20 23:29 64 08/23/20 21:49 98.1 08/23/20 20:00 60 08/23/20 20:00 Mechanical Ventilator 08/23/20 20:00 60 08/23/20 20:00 98.1 69 18 124/78 (93) 98 08/23/20 19:47 65 18 60 Intake and Output 08/23/20 08/24/20 19:00 07:00 Intake Total 1200 ml 1240 ml Output Total 1400 ml 1100 ml Balance -200 ml 140 ml Free Water 260 ml IV Total 100 ml 400 ml Tube Feeding 840 ml 840 ml Output Urine Total 1300 ml 1000 ml Stool Total 100 ml 100 ml Laboratory Tests 08/24/20 04:00: White Blood Count 23.9*H, Red Blood Count 2.19L, Hemoglobin 7.0L, Hematocrit 20.6L, Mean Corpuscular Volume 94, Mean Corpuscular Hemoglobin 31.9H, Mean Corpuscular Hemoglobin Concent 34.0, Red Cell Distribution Width 16.7H, Platelet Count 446, Mean Platelet Volume 8.3, Neutrophils (%) (Auto) , Lymphocytes (%) ( Auto) , Monocytes (%) (Auto) , Eosinophils (%) (Auto) , Basophils (%) (Auto) , Differential Total Cells Counted 100, Neutrophils % (Manual) 70, Lymphocytes % (Manual) 20, Monocytes % (Manual) 5, Eosinophils % (Manual) 5H, Basophils % ( Manual) 0, Band Neutrophils 0, Platelet Estimate Adequate, Platelet Morphology Normal, Hypochromasia 1+, Anisocytosis 1+ 08/24/20 13:10: Arterial Blood pH 7.342L, Arterial Blood Partial Pressure CO2 35.4, Arterial Blood Partial Pressure O2 76.2, Arterial Blood HCO3 18.8L, Arterial Blood Oxygen Saturation 92.2L, Arterial Blood Base Excess -6.4L, Iglesia Test Positive Height (Feet): 5 Height (Inches): 10.00 Weight (Pounds): 112 Objective General Appearance: WD/WN, lethargic EENT: normal ENT inspection Neck: normal alignment Cardiovascular: normal peripheral pulses, normal rate Respiratory/Chest: chest wall non-tender, lungs clear, normal breath sounds Abdomen: normal bowel sounds, non tender, soft, no organomegaly Edema: no edema noted Arm (L), no edema noted Arm (R) Neurologic: unresponsive Assessment/Plan Problem List: (1) Pneumonia ICD Codes: J18.9 - Pneumonia, unspecified organism SNOMED: 500310201 Qualifiers: Qualified Codes: J18.9 - Pneumonia, unspecified organism (2) Sickle cell anemia ICD Codes: D57.1 - Sickle-cell disease without crisis SNOMED: 251915011 Qualifiers: Qualified Codes: D57.00 - Hb-SS disease with crisis, unspecified (3) Severe sepsis ICD Codes: A41.9 - Sepsis, unspecified organism; R65.20 - Severe sepsis without septic shock SNOMED: 26720687 Status: stable, not improved Assessment/Plan: cont current rx reculture if spikes resp care vent suctioning gt feeds pain rx as needed monitor labs sz rx as is dc planning Lalo Celaya MD Aug 24, 2020 16:35
--- NOTE | 2020-08-24 17:31 | NUR ---
CASE MANAGEMENT:REVIEW 08/24/20 SI: MRSA AND SERRATIA SEPSIS. ASPIRATION PNA T 100.8 HR 128 RR 28 B/P 152/98 SATS 91% ON MECH VENT FIO2 100 LABS: WBC 23.9 HGB 7 HCT 20.6 CL 110 BUN 39 TBILI 1.1 DBILI 0.5 AST 81 ALT 102 ALP 540 ABGs PH 7.342 HCO3 18.8 SATS 92.2 BE -6.4 IS: IV CEFEPIME Q12H IV KEPPRA Q12H IV PROTONIX Q12H HEPARIN SQ Q12H CXR IMPRESSION: Improved aeration. Some residual right perihilar infiltrates noted. : STEP DOWN UNIT
--- NOTE | 2020-08-24 17:38 | NUR ---
INSURANCE CLINICALS FAXED TO [facility] P:[phone] F:[phone] (FAX CLINICALS)
--- NOTE | 2020-08-24 17:44 | NUR ---
DISCHARGE PLANNING: NOTE [facility]....JACKY T: [phone]/F; [phone] SECOND RESULTS [facility]ED T: [phone] NO ACCEPTANCE TODAY CM WILL F/U
--- NOTE | 2020-08-24 19:08 | NUR ---
HAND-OFF: Report given to ARLYN Mayen.
--- NOTE | 2020-08-24 19:43 | NUR ---
NURSE NOTES: Report received from ARLYN Robert. Observed pt sleeping in the bed. No signs of pain noted. SR on pvc monitor. Trach to vent, Shiley 6, AC 18, TV 450, FIO2 60%, PEEP 0. GT intact, running Vital AF at 70cc/hr, tolerating. R UA PICC noted, intact. Bed in the lowest position. Side rails up x3. Call light within reach. Will continue to monitor.
[2020-08-24 20:00] VITALS: BP 123/78
[2020-08-24] MEDS: Dyna-Hex 2% Top Sol 2oz TOPIC SCH (20:02)
--- NOTE | 2020-08-24 21:23 | General Progress Note ---
Subjective Allergies: Coded Allergies: ADHESIVE TAPE (Verified Allergy, Unknown, 07/20/20) Uncoded Allergies: TAPE (Allergy, Unknown, 08/07/20) Subjective above noted NAD , Calm on TF LFT still elevated Objective Last 24 Hour Vital Signs Date Time Temp Pulse Resp B/P (MAP) Pulse Ox O2 Delivery O2 Flow Rate FiO2 08/24/20 20:00 91 08/24/20 20:00 98.1 65 25 123/78 (93) 100 79 08/24/20 20:00 60 08/24/20 20:00 Mechanical Ventilator 08/24/20 19:30 62 23 60 08/24/20 16:00 Mechanical Ventilator 08/24/20 16:00 80 08/24/20 16:00 60 08/24/20 16:00 98.4 79 16 129/74 (92) 100 79 08/24/20 15:28 60 24 60 08/24/20 13:08 98.4 08/24/20 12:00 100.8 128 28 152/98 (116) 91 08/24/20 12:00 100 08/24/20 12:00 Mechanical Ventilator 08/24/20 12:00 132 08/24/20 10:56 60 18 60 08/24/20 08:00 84 08/24/20 08:00 98.1 84 18 128/80 (96) 100 08/24/20 08:00 Mechanical Ventilator 08/24/20 08:00 60 08/24/20 07:11 65 19 60 08/24/20 04:00 60 08/24/20 04:00 Mechanical Ventilator 08/24/20 04:00 98.3 62 18 120/77 (91) 100 08/24/20 03:51 60 08/24/20 03:51 59 18 60 08/24/20 00:00 Mechanical Ventilator 08/24/20 00:00 98.0 63 18 118/69 (85) 98 08/23/20 23:33 60 18 60 08/23/20 23:29 64 08/23/20 21:49 98.1 Intake and Output 08/23/20 08/24/20 19:00 07:00 Intake Total 1200 ml 1240 ml Output Total 1400 ml 1100 ml Balance -200 ml 140 ml Free Water 260 ml IV Total 100 ml 400 ml Tube Feeding 840 ml 840 ml Output Urine Total 1300 ml 1000 ml Stool Total 100 ml 100 ml Laboratory Tests 08/24/20 04:00: White Blood Count 23.9*H, Red Blood Count 2.19L, Hemoglobin 7.0L, Hematocrit 20.6L, Mean Corpuscular Volume 94, Mean Corpuscular Hemoglobin 31.9H, Mean Corpuscular Hemoglobin Concent 34.0, Red Cell Distribution Width 16.7H, Platelet Count 446, Mean Platelet Volume 8.3, Neutrophils (%) (Auto) , Lymphocytes (%) (Auto) , Monocytes (%) (Auto) , Eosinophils (%) (Auto) , Basophils (%) (Auto) , Differential Total Cells Counted 100, Neutrophils % (Manual) 70, Lymphocytes % (Manual) 20, Monocytes % (Manual) 5, Eosinophils % (Manual) 5H, Basophils % (Manual) 0, Band Neutrophils 0, Platelet Estimate Adequate, Platelet Morphology Normal, Hypochromasia 1+, Anisocytosis 1+ 08/24/20 13:10: Arterial Blood pH 7.342L, Arterial Blood Partial Pressure CO2 35.4, Arterial Blood Partial Pressure O2 76.2, Arterial Blood HCO3 18.8L, Arterial Blood Oxygen Saturation 92.2L, Arterial Blood Base Excess -6.4L, Iglesia Test Positive Height (Feet): 5 Height (Inches): 10.00 Weight (Pounds): 112 Objective Thin AA Man HEENT s/p craniotomy neck (+) trach Coarse BS RR/tachy abd soft (+) GT no edema 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
--- NOTE | 2020-08-24 22:26 | NUR ---
NURSE NOTES: pt c/o generalized pain, prn given. VS WNL. SR on security monitor. Reposition done. Oral care given. Will continue to monitor.
[2020-08-25] VITALS (12 sets, daily range): BP systolic 94–154; BP diastolic 55–102
[2020-08-25] MEDS: Acetaminophen 650mg/20.3ml GT PRN ×2 (04:09→11:33)
--- NOTE | 2020-08-25 04:16 | NUR ---
NURSE NOTES: Noted GT residual over 75, and feeding on hold at this time. PRN given per pt c/o generalized pain, flacc of 5. Will continue to monitor.
[2020-08-25 04:22] LABS: HEMATOCRIT 22.1 % (42.0-52.0); HEMOGLOBIN 7.2 G/DL (14.2-18.0); MEAN CORPUSCULAR VOLUME 96 FL (80-99); PLATELET COUNT 495 K/UL (150-450); RED BLOOD COUNT 2.31 M/UL (4.70-6.10)
[2020-08-25 04:28] LABS: WHITE BLOOD COUNT 37.1 K/UL (4.8-10.8)
[2020-08-25 04:57] LABS: % IRON SATURATION 74 % (15-50); IRON 153 ug/dL (50-175); TOTAL IRON BINDING CAPACITY 208 ug/dL (250-450)
[2020-08-25 05:04] LABS: FERRITIN 645 NG/ML (8-388)
--- NOTE | 2020-08-25 07:28 | NUR ---
NURSE HAND-OFF REPORT: Important Events on Shift: GT residual over 100, resolved at this time, feeding started on 30cc/hr at this time. Patient Status: stable Diet: Vital AF, GT Pending Orders: n Pending Results/Labs:n Pending MD notification:n Latest Vital Signs: Temperature 98.0 , Pulse 79 , B/P 109 /68 , Respiratory Rate 18 , O2 SAT 96 , Mechanical Ventilator, O2 Flow Rate . Vital Sign Comment: EKG Rhythm: Sinus Rhythm Rhythm change?: N Notified?: Luis DAVIES MD Response: Latest Stevens Fall Score: 50 Fall Risk: High Risk Safety Measures: Call light Within Reach, Bed Alarm Zone 2, Side Rails Side Rails x2, Bed position Low and Locked. Fall Precautions: Yellow Socks Yellow Gown Door Sign Patient Fall Education Report given to ARLYN La.
--- NOTE | 2020-08-25 07:56 | NUR ---
NURSE NOTES: During morning assessment, pt has gtube and reported was that the residual was greater than 100ml at 0500. Upon checking at 0720 there was no residual and feeding started at 30ml. Pt was oriented x 2 calm and cooperative, pt has in place a rectal tube and it was not leaking, pt is able to move on his own and makes his needs known. pt is also on vent and tolerating well. pt will need attention to gtube and skin breakdown. pt denies pain, no s/s of distress or sob noted.
--- NOTE | 2020-08-25 08:13 | Critical Care Progress Note ---
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 Port-A-Cath Status post removal of implanted right chest wall Port-A-Cath Sickle cell crisis Sickle cell anemia Chronic respiratory failure, ventilator dependent, with tracheostomy status Transaminitis Seizure disorder acute pneumonia leukocytosis recurrent sepsis PLAN care noted IV antibiotics per ID respiratory care as is Ventilatory support- pressure control; maintain as is SNF meds supportive care suction no wean planned monitor wbc per ID oxygen therapy and titrate prognosis guarded medications/laboratory data/nursing notes reviewed in detail note reviewed and edited care discussed with RN and RT Critical Care - Subjective ROS Limited/Unobtainable: Yes Condition: critical EKG Rhythm: Sinus Rhythm I&O: Intake and Output 08/24/20 08/25/20 19:00 07:00 Intake Total 920 ml 800 ml Output Total 1000 ml 1600 ml Balance -80 ml -800 ml Free Water 190 ml 180 ml IV Total 100 ml 100 ml Tube Feeding 630 ml 520 ml Output Urine Total 1000 ml 1500 ml Stool Total 100 ml Critical Care - Objective Last 24 Hour Vital Signs Date Time Temp Pulse Resp B/P (MAP) Pulse Ox O2 Delivery O2 Flow Rate FiO2 08/25/20 04:00 98.0 64 18 109/68 (82) 96 79 08/25/20 04:00 85 08/25/20 04:00 Mechanical Ventilator 08/25/20 04:00 60 08/25/20 03:19 72 25 60 08/25/20 00:00 60 08/25/20 00:00 Mechanical Ventilator 08/25/20 00:00 98.1 81 25 122/78 (93) 100 79 08/25/20 00:00 81 08/24/20 23:19 61 20 60 08/24/20 20:00 91 08/24/20 20:00 98.1 65 25 123/78 (93) 100 79 08/24/20 20:00 60 08/24/20 20:00 Mechanical Ventilator 08/24/20 19:30 62 23 60 08/24/20 16:00 Mechanical Ventilator 08/24/20 16:00 80 08/24/20 16:00 60 08/24/20 16:00 98.4 79 16 129/74 (92) 100 79 08/24/20 15:28 60 24 60 08/24/20 13:08 98.4 08/24/20 12:00 100.8 128 28 152/98 (116) 91 08/24/20 12:00 100 08/24/20 12:00 Mechanical Ventilator 08/24/20 12:00 132 08/24/20 10:56 60 18 60 Objective: WDWN NAD reduced breath sounds bilaterally without rhonchi or wheeze [id number] without MRG NABS nontender GT no CCE reduced LOC Micro: Microbiology Date/Time Source Procedure Growth Status 08/23/20 16:00 Nasopharynx SARS-CoV-2 RdRp Gene Assay - Final Complete James Nuñez MD Aug 25, 2020 08:13
--- NOTE | 2020-08-25 08:36 | Hematology/Onc Progress Note ---
Assessment/Plan Assessment/Plan Assessment and Recs # Sickle cell crisis noted upon admission, with hx of sickle cell anemia --> hgb 6.5-->7.1-->6.6->>>>7.3-->7.1 -->6.7-->6.5-->6.8->7-->7.2 --> 1 unit prbc on 07/23 --> ivfs have been started --> anemia panel ordered, with elev ferritin --> recommend to consider hydrea when discharged if stable --> likely does have mild hemolysis --> hgb electrophoresis show evidence of sickle cell trait --> FLOW CYTOMETRY IS NEGATIVE # Hyperferritinemia with elevated ferritin that was noted --> likely consider exjade once discharged though at this time not limiting --> ferritin can >2000 with recurrent transfusions --> trend over time, for EOD observe # Leukocytosis poa with Severe sepsis due to line infection --> abx: vancomycin-->cefepime/colistin-->cefepime --> wbc 25-->31-->29-->25-->37 --> FLOW CYTOMETRY NEG # Respiratory failure s/p Ventilator dependent --> as per pulm, vent adjustment # Port-A-Cath in place --> s/p abx --> s/p permacath removal # Transaminitis -->liver function elevated --> per gi # Dt ppx heparin sq The timing of this note does not necessarily reflect the time of the patient was seen. Greatly appreciate consultation. Subjective HEENT: Denies: no symptoms, eye pain, blurred vision, tearing, double vision, ear pain, ear discharge, nose pain, nose congestion, throat pain, throat swelling, mouth pain, mouth swelling, other Cardiovascular: Denies: no symptoms, chest pain, edema, irregular heart rate, lightheadedness, palpitations, syncope, other Respiratory: Denies: no symptoms, cough, shortness of breath, SOB with excertion, SOB at rest, sputum, wheezing, other Gastrointestinal/Abdominal: Denies: no symptoms, abdomen distended, abdominal pain, black stools, tarry stools, blood in stool, constipated, diarrhea, difficulty swallowing, nausea, poor appetite, poor fluid intake, rectal ble eding, vomiting, other Genitourinary: Denies: no symptoms, burning, discharge, frequency, flank pain, hematuria, incontinence, pain, urgency, other Neurologic/Psychiatric: Denies: no symptoms, anxiety, depressed, emotional problems, headache, numbness, paresthesia, pre-existing deficit, seizure, tingling, tremors, weakness, other Endocrine: Denies: no symptoms, excessive sweating, flushing, intolerance to cold, intolerance to heat, increased hunger, increased thirst, increased urine, unexplained weight gain, unexplained weight loss, other Hematologic/Lymphatic: Denies: no symptoms, anemia, easy bleeding, easy bruising, adenopathy, other Allergies: Coded Allergies: ADHESIVE TAPE (Verified Allergy, Unknown, 07/20/20) Uncoded Allergies: TAPE (Allergy, Unknown, 08/07/20) Subjective 08/19 no acute events, vent, iv abx, labs reviewed 08/20 labs reviewed, seen by Dr. Celaya and mychal Rn, holding off prbc 08/21 remains on abx with persistently elev wbc, on abx broad spectrum 08/22 labs reviewed, no bleeding, meds noted, wbc still 25k, hgb 6.8, transfuse pr 08/23 cbc has been ordered, meds noted, on cefepime, have dw path is flow back 08/24 hob is elevated, labs noted, hgb 7, consider for transfusions soon, wbc is better 08/25 labs are reviewed, wbc is worse, flow was done and is negative Objective Objective Current Medications Medications (Trade) Dose Ordered Sig/Piedad Route PRN Reason Start Time Stop Time Status Last Admin Dose Admin Acetaminophen (Tylenol) 650 mg Q4H PRN GT Mild Pain (Pain Scale 1-3) 08/24/20 13:00 09/23/20 12:59 Acetaminophen (Tylenol) 650 mg Q6H PRN GT Temp >100.5 08/10/20 20:20 09/09/20 20:19 08/25/20 04:09 Chlorhexidine Gluconate (Christy-Hex 2%) 1 applic DAILY@1999 TOPIC 08/14/20 20:00 11/12/20 19:59 08/24/20 20:02 Folic Acid (Folate) 1 mg DAILY GT 08/11/20 09:00 09/07/20 08:59 08/24/20 09:22 Heparin Sodium (Porcine) (Heparin 5000 units/ml) 5,000 units EVERY 12 HOURS SUBQ 08/10/20 21:00 09/22/20 20:59 08/24/20 20:04 Levetiracetam 100 ml @ 400 mls/hr Q12HR IVPB 08/14/20 10:00 11/12/20 09:59 08/24/20 20:02 Metoclopramide HCl (Reglan) 10 mg Q6H PRN IVP Nausea & Vomiting 08/21/20 21:45 09/20/20 21:44 Multivitamins (Multivitamins) 1 tab DAILY GT 08/11/20 09:00 09/07/20 08:59 08/24/20 09:22 Pantoprazole (Protonix) 40 mg EVERY 12 HOURS IVP 08/13/20 22:15 09/12/20 22:14 08/24/20 20:02 Last 24 Hour Vital Signs Date Time Temp Pulse Resp B/P (MAP) Pulse Ox O2 Delivery O2 Flow Rate FiO2 08/25/20 04:00 98.0 64 18 109/68 (82) 96 79 08/25/20 04:00 85 08/25/20 04:00 Mechanical Ventilator 08/25/20 04:00 60 08/25/20 03:19 72 25 60 08/25/20 00:00 60 08/25/20 00:00 Mechanical Ventilator 08/25/20 00:00 98.1 81 25 122/78 (93) 100 79 08/25/20 00:00 81 08/24/20 23:19 61 20 60 08/24/20 20:00 91 08/24/20 20:00 98.1 65 25 123/78 (93) 100 79 08/24/20 20:00 60 08/24/20 20:00 Mechanical Ventilator 08/24/20 19:30 62 23 60 08/24/20 16:00 Mechanical Ventilator 08/24/20 16:00 80 08/24/20 16:00 60 08/24/20 16:00 98.4 79 16 129/74 (92) 100 79 08/24/20 15:28 60 24 60 08/24/20 13:08 98.4 08/24/20 12:00 100.8 128 28 152/98 (116) 91 08/24/20 12:00 100 08/24/20 12:00 Mechanical Ventilator 08/24/20 12:00 132 08/24/20 10:56 60 18 60 08/24/20 08:00 84 08/24/20 08:00 98.1 84 18 128/80 (96) 100 08/24/20 08:00 Mechanical Ventilator 08/24/20 08:00 60 08/24/20 07:11 65 19 60 08/24/20 04:00 60 08/24/20 04:00 Mechanical Ventilator 08/24/20 04:00 98.3 62 18 120/77 (91) 100 08/24/20 03:51 60 08/24/20 03:51 59 18 60 08/24/20 00:00 Mechanical Ventilator 08/24/20 00:00 98.0 63 18 118/69 (85) 98 08/23/20 23:33 60 18 60 08/23/20 23:29 64 08/23/20 21:49 98.1 08/23/20 20:00 60 08/23/20 20:00 Mechanical Ventilator 08/23/20 20:00 60 08/23/20 20:00 98.1 69 18 124/78 (93) 98 08/23/20 19:47 65 18 60 08/23/20 16:00 77 08/23/20 16:00 Mechanical Ventilator 08/23/20 16:00 60 08/23/20 16:00 97.7 79 17 126/79 (95) 98 08/23/20 15:59 69 18 40 08/23/20 12:40 71 18 40 08/23/20 12:00 40 08/23/20 12:00 77 08/23/20 12:00 98.8 73 18 123/73 (90) 96 08/23/20 12:00 Mechanical Ventilator 08/23/20 10:46 74 18 40 08/23/20 08:52 58 18 40 Intake and Output 08/24/20 08/25/20 19:00 07:00 Intake Total 920 ml 800 ml Output Total 1000 ml 1600 ml Balance -80 ml -800 ml Free Water 190 ml 180 ml IV Total 100 ml 100 ml Tube Feeding 630 ml 520 ml Output Urine Total 1000 ml 1500 ml Stool Total 100 ml Labs Test 08/22/20 12:01 08/23/20 16:00 08/24/20 04:00 08/24/20 13:10 POC Whole Blood Glucose 87 MG/DL (74-106) White Blood Count 25.5 K/UL (4.8-10.8) 23.9 K/UL (4.8-10.8) Red Blood Count 2.23 M/UL (4.70-6.10) 2.19 M/UL (4.70-6.10) Hemoglobin 7.4 G/DL (14.2-18.0) 7.0 G/DL (14.2-18.0) Hematocrit 22.5 % (42.0-52.0) 20.6 % (42.0-52.0) Mean Corpuscular Volume 101 FL (80-99) 94 FL (80-99) Mean Corpuscular Hemoglobin 33.2 PG (27.0-31.0) 31.9 PG (27.0-31.0) Mean Corpuscular Hemoglobin Concent 32.9 G/DL (32.0-36.0) 34.0 G/DL (32.0-36.0) Red Cell Distribution Width 17.6 % (11.6-14.8) 16.7 % (11.6-14.8) Platelet Count 503 K/UL (150-450) 446 K/UL (150-450) Mean Platelet Volume 8.7 FL (6.5-10.1) 8.3 FL (6.5-10.1) Neutrophils (%) (Auto) % (45.0-75.0) % (45.0-75.0) Lymphocytes (%) (Auto) % (20.0-45.0) % (20.0-45.0) Monocytes (%) (Auto) % (1.0-10.0) % (1.0-10.0) Eosinophils (%) (Auto) % (0.0-3.0) % (0.0-3.0) Basophils (%) (Auto) % (0.0-2.0) % (0.0-2.0) Differential Total Cells Counted 100 100 Neutrophils % (Manual) 72 % (45-75) 70 % (45-75) Lymphocytes % (Manual) 18 % (20-45) 20 % (20-45) Monocytes % (Manual) 6 % (1-10) 5 % (1-10) Eosinophils % (Manual) 4 % (0-3) 5 % (0-3) Basophils % (Manual) 0 % (0-2) 0 % (0-2) Band Neutrophils 0 % (0-8) 0 % (0-8) Platelet Estimate Increased Adequate Platelet Morphology Normal Normal Polychromasia 2+ Anisocytosis 2+ 1+ Macrocytosis 1+ Reticulocyte Count 5.4 % (0.5-2.0) Sodium Level 143 MMOL/L (136-145) Potassium Level 4.1 MMOL/L (3.5-5.1) Chloride Level 110 MMOL/L (98-107) Carbon Dioxide Level 23 MMOL/L (21-32) Anion Gap 10 mmol/L (5-15) Blood Urea Nitrogen 39 mg/dL (7-18) Creatinine 1.0 MG/DL (0.55-1.30) Estimat Glomerular Filtration Rate > 60 mL/min (>60) Glucose Level 93 MG/DL (74-106) Calcium Level 9.0 MG/DL (8.5-10.1) Total Bilirubin 1.1 MG/DL (0.2-1.0) Direct Bilirubin 0.5 MG/DL (0.0-0.3) Aspartate Amino Transf (AST/SGOT) 81 U/L (15-37) Alanine Aminotransferase (ALT/SGPT) 102 U/L (12-78) Alkaline Phosphatase 540 U/L (46-116) Total Protein 8.4 G/DL (6.4-8.2) Albumin 2.6 G/DL (3.4-5.0) Globulin 5.8 g/dL Albumin/Globulin Ratio 0.4 (1.0-2.7) Hypochromasia 1+ Arterial Blood pH 7.342 (7.350-7.450) Arterial Blood Partial Pressure CO2 35.4 mmHg (35.0-45.0) Arterial Blood Partial Pressure O2 76.2 mmHg (75.0-100.0) Arterial Blood HCO3 18.8 mmol/L (22.0-26.0) Arterial Blood Oxygen Saturation 92.2 % (95-100) Arterial Blood Base Excess -6.4 (-2-2) Iglesia Test Positive Test 08/25/20 04:00 White Blood Count 37.1 K/UL (4.8-10.8) Red Blood Count 2.31 M/UL (4.70-6.10) Hemoglobin 7.2 G/DL (14.2-18.0) Hematocrit 22.1 % (42.0-52.0) Mean Corpuscular Volume 96 FL (80-99) Mean Corpuscular Hemoglobin 31.3 PG (27.0-31.0) Mean Corpuscular Hemoglobin Concent 32.8 G/DL (32.0-36.0) Red Cell Distribution Width 17.0 % (11.6-14.8) Platelet Count 495 K/UL (150-450) Mean Platelet Volume 8.6 FL (6.5-10.1) Neutrophils (%) (Auto) % (45.0-75.0) Lymphocytes (%) (Auto) % (20.0-45.0) Monocytes (%) (Auto) % (1.0-10.0) Eosinophils (%) (Auto) % (0.0-3.0) Basophils (%) (Auto) % (0.0-2.0) Iron Level 153 ug/dL (50-175) Total Iron Binding Capacity 208 ug/dL (250-450) Percent Iron Saturation 74 % (15-50) Unsaturated Iron Binding 55 ug/dL (112-346) Ferritin 645 NG/ML (8-388) Height (Feet): 5 Height (Inches): 10.00 Weight (Pounds): 112 Objective Physical Exam General: alert, Chronically Ill Head: other - Large right-sided craniotomy defect well-heale ++, tracheotomy/vent Respiratory: crackles, rales, other - right side chest wall tenderness Cardiovascular: tachycardia Gastrointestinal: normal inspection, soft, gt++ Musk: decreased range of motion, other - atrophic, motor weakness Neurologic: alert, motor weakness, other - left hemineglect Psychiatric: normal inspection Skin: no rash : garcia++ Roshan Castillo MD Aug 25, 2020 08:36
[2020-08-25] MEDS: Heparin 5000 units/ml inj SUBQ SCH ×2 (10:05→20:56)
[2020-08-25] MEDS: Pantoprazole Inj IVP SCH ×2 (10:08→20:08)
[2020-08-25] MEDS: levETIRAcetam 1,000mg/NS100ml 100 ML IVPB SCH ×2 (10:08→21:00)
--- NOTE | 2020-08-25 11:10 | Infectious Diseases Prog Note ---
"Assessment/Plan Assessment/Plan antibiotics : none A 1. MRSA | serratia sepsis s/p rx s/p catheter removal 2. MRSA | serratia | pseudomonas pneumonia 3. respiratory failure 4. sickle cell disease 5. anemia 6. leucocytosis increased 7. seizures P 1. Start iv vancomycin, cefepime 2. blood culture 3. UA and urine culture 4. sputum culture 5. will follow up cultures Subjective ROS Limited/Unobtainable: Yes Allergies: Coded Allergies: ADHESIVE TAPE (Verified Allergy, Unknown, 07/20/20) Uncoded Allergies: TAPE (Allergy, Unknown, 08/07/20) Objective Last 24 Hour Vital Signs Date Time Temp Pulse Resp B/P (MAP) Pulse Ox O2 Delivery O2 Flow Rate FiO2 08/25/20 08:51 60 08/25/20 08:50 Mechanical Ventilator 08/25/20 08:10 96.6 79 20 98/55 (69) 100 79 08/25/20 07:03 68 21 60 08/25/20 04:00 98.0 64 18 109/68 (82) 96 79 08/25/20 04:00 85 08/25/20 04:00 Mechanical Ventilator 08/25/20 04:00 60 08/25/20 03:19 72 25 60 08/25/20 00:00 60 08/25/20 00:00 Mechanical Ventilator 08/25/20 00:00 98.1 81 25 122/78 (93) 100 79 08/25/20 00:00 81 08/24/20 23:19 61 20 60 08/24/20 20:00 91 08/24/20 20:00 98.1 65 25 123/78 (93) 100 79 08/24/20 20:00 60 08/24/20 20:00 Mechanical Ventilator 08/24/20 19:30 62 23 60 08/24/20 16:00 Mechanical Ventilator 08/24/20 16:00 80 08/24/20 16:00 60 08/24/20 16:00 98.4 79 16 129/74 (92) 100 79 08/24/20 15:28 60 24 60 08/24/20 13:08 98.4 08/24/20 12:00 100.8 128 28 152/98 (116) 91 08/24/20 12:00 100 08/24/20 12:00 Mechanical Ventilator 08/24/20 12:00 132 Height (Feet): 5 Height (Inches): 10.00 Weight (Pounds): 112 HEENT: status post trach Respiratory/Chest: lungs clear Cardiovascular: normal rate, regular rhythm, no gallop/murmur Abdomen: soft, non tender, other - GT Extremities: no edema, other - right arm PICC Microbiology Date/Time Source Procedure Growth Status 08/23/20 16:00 Nasopharynx SARS-CoV-2 RdRp Gene Assay - Final Complete Laboratory Tests Test 08/24/20 13:10 08/25/20 04:00 Arterial Blood pH 7.342 (7.350-7.450) Arterial Blood Partial Pressure CO2 35.4 mmHg (35.0-45.0) Arterial Blood Partial Pressure O2 76.2 mmHg (75.0-100.0) Arterial Blood HCO3 18.8 mmol/L (22.0-26.0) L Arterial Blood Oxygen Saturation 92.2 % (95-100) L Arterial Blood Base Excess -6.4 (-2-2) L Iglesia Test Positive White Blood Count 37.1 K/UL (4.8-10.8) #*H Red Blood Count 2.31 M/UL (4.70-6.10) L Hemoglobin 7.2 G/DL (14.2-18.0) L Hematocrit 22.1 % (42.0-52.0) L Mean Corpuscular Volume 96 FL (80-99) Mean Corpuscular Hemoglobin 31.3 PG (27.0-31.0) H Mean Corpuscular Hemoglobin Concent 32.8 G/DL (32.0-36.0) Red Cell Distribution Width 17.0 % (11.6-14.8) H Platelet Count 495 K/UL (150-450) H Mean Platelet Volume 8.6 FL (6.5-10.1) Neutrophils (%) (Auto) % (45.0-75.0) Lymphocytes (%) (Auto) % (20.0-45.0) Monocytes (%) (Auto) % (1.0-10.0) Eosinophils (%) (Auto) % (0.0-3.0) Basophils (%) (Auto) % (0.0-2.0) Differential Total Cells Counted 100 Neutrophils % (Manual) 82 % (45-75) H Lymphocytes % (Manual) 14 % (20-45) L Monocytes % (Manual) 3 % (1-10) Eosinophils % (Manual) 1 % (0-3) Basophils % (Manual) 0 % (0-2) Band Neutrophils 0 % (0-8) Platelet Estimate Adequate Platelet Morphology Normal Hypochromasia 3+ Anisocytosis 1+ Spherocytes 1+ Iron Level 153 ug/dL (50-175) Total Iron Binding Capacity 208 ug/dL (250-450) L Percent Iron Saturation 74 % (15-50) H Unsaturated Iron Binding 55 ug/dL (112-346) L Ferritin 645 NG/ML (8-388) H Anti-Nuclear Antibody Screen Pending SmRNP Antibodies Pending Anti-Mitochondrial Antibody Pending Current Medications Medications (Trade) Dose Ordered Sig/Piedad Route PRN Reason Start Time Stop Time Status Last Admin Dose Admin Acetaminophen (Tylenol) 650 mg Q4H PRN GT Mild Pain (Pain Scale 1-3) 08/24/20 13:00 09/23/20 12:59 Acetaminophen (Tylenol) 650 mg Q6H PRN GT Temp >100.5 08/10/20 20:20 09/09/20 20:19 08/25/20 04:09 Chlorhexidine Gluconate (Christy-Hex 2%) 1 applic DAILY@1999 TOPIC 08/14/20 20:00 11/12/20 19:59 08/24/20 20:02 Folic Acid (Folate) 1 mg DAILY GT 08/11/20 09:00 09/07/20 08:59 08/25/20 10:08 Heparin Sodium (Porcine) (Heparin 5000 units/ml) 5,000 units EVERY 12 HOURS SUBQ 08/10/20 21:00 09/22/20 20:59 08/25/20 10:05 Levetiracetam 100 ml @ 400 mls/hr Q12HR IVPB 08/14/20 10:00 11/12/20 09:59 08/25/20 10:08 Metoclopramide HCl (Reglan) 10 mg Q6H PRN IVP Nausea & Vomiting 08/21/20 21:45 09/20/20 21:44 Multivitamins (Multivitamins) 1 tab DAILY GT 08/11/20 09:00 09/07/20 08:59 08/25/20 10:08 Pantoprazole (Protonix) 40 mg EVERY 12 HOURS IVP 08/13/20 22:15 09/12/20 22:14 08/25/20 10:08 Isabelle Degroot MD Aug 25, 2020 11:10"
--- NOTE | 2020-08-25 11:20 | NUR ---
NURSE NOTES: Notified Md Degroot regarding WBC count elevation Addendum: 08/25/20 at 1437 by JADA MASON RN Rodríguez was added to the regimen
[2020-08-25] MEDS: Cefepime HCl 2 GM in D5W 55 ML IVPB SCH (12:36)
[2020-08-25] MEDS ORDERED: HYDROcodone/Acetamin 10/325 tab GT SCH (14:00)
--- NOTE | 2020-08-25 14:06 | NUR ---
CASE MANAGEMENT:REVIEW 08/25/20 SI:MRSA AND SERRATIA SEPSIS. ASPIRATION PNA 96.6 79 20 98/55 100% ON VENT SUPPORT @60% FIO2 WBC+37.1 H/H-7.2/22.1 IS: IV VANCOMYCIN Q12 IV CEFEPIME Q12 IV PROTONIX Q12 HEPARIN SQ Q12 : STEP DOWN UNIT DCP: FROM [facility]
--- NOTE | 2020-08-25 14:10 | NUR ---
DISCHARGE PLANNING SPOKE WITH RUBIN AT [facility]. PER RUBIN THE [employer] ERECTOR/DIRECTOR OF THE SUBACUTE GAVE THE LAST BED AWAY THIS MORNING. SPOKE WITH ED AT [facility]. THEY WILL NOT BE ABLE TO ACCEPT PATIENT'S UNTIL FRIDAY OR FRIDAY MESSAGE LEFT FOR [employer] MGMT GREENSMAN, TRISTIN. WE DO NOT HAVE AN OFFICIAL DISCHARGE ORDER OF YET
--- NOTE | 2020-08-25 14:12 | Cardiology Report ---
APPROVED REPORT EKG Measurement Heart [id number] <Conclusion> Sinus tachycardia Otherwise normal ECG
--- NOTE | 2020-08-25 14:44 | NUR ---
INSURANCE CLINICALS/REVIEW FAXED TO [facility] [employer] [phone] PH [phone] EXT [phone] DEVANTE CROW
--- NOTE | 2020-08-25 14:49 | NUR ---
CLINICALS/REVIEW FAXED TO [facility] P:[phone] F:[phone]
--- NOTE | 2020-08-25 15:07 | NUR ---
RADIOLOGY DEPT., CHEST X-RAY PERFORMED (POSSIBLE DISLODGED TRACH).-P.DYE
--- NOTE | 2020-08-25 15:26 | Surgery Progress Note ---
Surgery Progress Note Subjective Additional Comments Was noted this morning to have trach malposition. Was replaced but likely and false tract. Trach was removed at bedside bougie was placed and 6 Swazi Shiley was inserted over the bougie in tracheostomy. Was able to suction deep secretions and clear lung michele. Chest x-ray ordered. Trach tie placed will monitor. Objective Last 24 Hour Vital Signs Date Time Temp Pulse Resp B/P (MAP) Pulse Ox O2 Delivery O2 Flow Rate FiO2 08/25/20 15:11 96.6 08/25/20 12:10 96.6 08/25/20 12:05 96.5 99 22 126/77 (93) 100 99 08/25/20 12:00 60 08/25/20 12:00 Mechanical Ventilator 08/25/20 11:51 108 08/25/20 11:38 65 23 60 08/25/20 08:51 60 08/25/20 08:50 Mechanical Ventilator 08/25/20 08:10 96.6 79 20 98/55 (69) 100 79 08/25/20 07:48 94 08/25/20 07:03 68 21 60 08/25/20 04:00 98.0 64 18 109/68 (82) 96 79 08/25/20 04:00 85 08/25/20 04:00 Mechanical Ventilator 08/25/20 04:00 60 08/25/20 03:19 72 25 60 08/25/20 00:00 60 08/25/20 00:00 Mechanical Ventilator 08/25/20 00:00 98.1 81 25 122/78 (93) 100 79 08/25/20 00:00 81 08/24/20 23:19 61 20 60 08/24/20 20:00 91 08/24/20 20:00 98.1 65 25 123/78 (93) 100 79 08/24/20 20:00 60 08/24/20 20:00 Mechanical Ventilator 08/24/20 19:30 62 23 60 08/24/20 16:00 Mechanical Ventilator 08/24/20 16:00 80 08/24/20 16:00 60 08/24/20 16:00 98.4 79 16 129/74 (92) 100 79 08/24/20 15:28 60 24 60 I&O Intake and Output 08/24/20 08/25/20 19:00 07:00 Intake Total 920 ml 800 ml Output Total 1000 ml 1600 ml Balance -80 ml -800 ml Free Water 190 ml 180 ml IV Total 100 ml 100 ml Tube Feeding 630 ml 520 ml Output Urine Total 1000 ml 1500 ml Stool Total 100 ml Dressing: dry Cardiovascular: RSR Respiratory: decreased breath sounds Abdomen: soft, non-tender, present bowel sounds Extremities: no edema, no tenderness, no cyanosis Laboratory Tests Test 08/25/20 04:00 08/25/20 14:23 White Blood Count 37.1 K/UL (4.8-10.8) #*H Red Blood Count 2.31 M/UL (4.70-6.10) L Hemoglobin 7.2 G/DL (14.2-18.0) L Hematocrit 22.1 % (42.0-52.0) L Mean Corpuscular Volume 96 FL (80-99) Mean Corpuscular Hemoglobin 31.3 PG (27.0-31.0) H Mean Corpuscular Hemoglobin Concent 32.8 G/DL (32.0-36.0) Red Cell Distribution Width 17.0 % (11.6-14.8) H Platelet Count 495 K/UL (150-450) H Mean Platelet Volume 8.6 FL (6.5-10.1) Neutrophils (%) (Auto) % (45.0-75.0) Lymphocytes (%) (Auto) % (20.0-45.0) Monocytes (%) (Auto) % (1.0-10.0) Eosinophils (%) (Auto) % (0.0-3.0) Basophils (%) (Auto) % (0.0-2.0) Differential Total Cells Counted 100 Neutrophils % (Manual) 82 % (45-75) H Lymphocytes % (Manual) 14 % (20-45) L Monocytes % (Manual) 3 % (1-10) Eosinophils % (Manual) 1 % (0-3) Basophils % (Manual) 0 % (0-2) Band Neutrophils 0 % (0-8) Platelet Estimate Adequate Platelet Morphology Normal Hypochromasia 3+ Anisocytosis 1+ Spherocytes 1+ Iron Level 153 ug/dL (50-175) Total Iron Binding Capacity 208 ug/dL (250-450) L Percent Iron Saturation 74 % (15-50) H Unsaturated Iron Binding 55 ug/dL (112-346) L Ferritin 645 NG/ML (8-388) H Anti-Nuclear Antibody Screen Pending SmRNP Antibodies Pending Anti-Mitochondrial Antibody Pending Troponin I 0.000 ng/mL (0.000-0.056) Plan Problems: (1) Pneumonia (2) Sickle cell anemia (3) Tachycardia (4) Severe sepsis (5) Sickle cell crisis (6) Sepsis Assessment & Plan: 35-year-old male sickle cell multiple comorbidities history of craniotomy trach feeding tube prior port infected removed see prior admission and consult and operative notes. Currently presents with significant leukocytosis fevers hypotension in intensive care unit wound site evaluated unlikely etiology. Trach evaluated may consider changing. LFTs noted elevated. Ultrasound ordered pending results trend labs continue IV antibiotics appreciate infectious disease input will follow with recommendations thank you for let me participate in patient's care KUB and US noted labs reviewed transfuse prbc prn trach change peg changed line out picc placed persistent wbc h/h noted anemia ss better since new trach Shiley [address] secretions manageable Trach replaced at bedside 925 for malpositioning it was identified he does have a false track as well. Will ensure trach is in correct positioning daily every shift pulmonary arteries: Evaluation for pulmonary embolus is limited due to breathing motion artifact. No central pulmonary emboli are identified. Aorta: No acute findings. No thoracic aortic aneurysm. Lungs: There are moderately consolidating infiltrates identified in both lower lobes dependently with mild additional patchy infiltrates dependently in both upper lobes. The findings are consistent with bilateral nonspecific pneumonia. Aspiration pneumonia could give this appearance. The infiltrates are only somewhat typical of Covid 19. Confidence is immediate. Pleural space: Unremarkable. No significant effusion. No pneumothorax. Heart: Unremarkable. No cardiomegaly. No significant pericardial effusion. No evidence of RV dysfunction. Bones/joints: No acute fracture. No dislocation. Soft tissues: Unremarkable. Lymph nodes: Unremarkable. No enlarged lymph nodes. Tubes, lines and devices: There is a tracheostomy tube in good position. IMPRESSION: 1. There are moderately consolidating infiltrates identified in both lower lobes dependently with mild additional patchy infiltrates dependently in both upper lobes. The findings are consistent with bilateral nonspecific pneumonia. Aspiration pneumonia could give this appearance. The infiltrates are only somewhat typical of Covid 19. Confidence is immediate. 2. Evaluation for pulmonary embolus is limited due to breathing motion artifact. No central pulmonary emboli are identified. The liver is homogeneous. We cannot identify a normal spleen. There is dense crescentic calcification in the left upper quadrant at the expected location of the spleen. Gallbladder is absent. The pancreas is unremarkable. Adrenals are normal in morphology. There is a small punctate cortical calcification left kidney. No hydronephrosis bilaterally There is a G-tube in place. Gas-filled bowel loops identified throughout the abdomen and pelvis. No discrete transition point or obstruction. Appendix partially visualized. There is some free fluid in the pelvis. There is no free air. There is a mildly prominent lymph nodes noted in the upper to mid retroperitoneum noted of undetermined etiology or significance. Rivera catheter noted in the bladder. The reservoir for the penile prosthesis is identified in the left lower pelvis. There is a right femoral venous catheter in place. Diffuse sclerosis of the bony pelvis and hips noted of undetermined etiology. IMPRESSION: BILATERAL LOWER LOBE PNEUMONIAS. ALSO SOME HAZY INFILTRATES IN THE UPPER LOBES. A NORMAL SPLEEN IS NOT VISUALIZED. THERE IS A DENSE CRESCENTIC CALCIFICATION LEFT UPPER QUADRANT AT THE EXPECTED LOCATION OF THE SPLEEN. 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 PUNCTATE CORTICAL CALCIFICATION LEFT KIDNEY. NO HYDRONEPHROSIS. PROMINENT LYMPH NODES IN THE UPPER TO MID RETROPERITONEUM OF UNDETERMINED ETIOLOGY OR SIGNIFICANCE. G-TUBE, RIVERA CATHETER, RIGHT FEMORAL CATHETER AND PENILE PROSTHESIS NOTED IN PLACE. MILD DIFFUSE SCLEROSIS OF THE BONY PELVIS AND BOTH HIPS OF UNDETERMINED ETIOLOGY. QUESTION HISTORY OF RENAL OSTEODYSTROPHY. There is a large craniectomy defect in the right frontal temporal region. Diffuse age-related volume loss demonstrated. 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 No definite acute infarct seen. There is no hemorrhage, mass effect or shift. Ventricles and cisterns as well as brainstem and posterior fossa appear unremarkable. The sellar region is normal. Sinuses, mastoid air cells and bony calvarium appear intact. IMPRESSION: Large right frontotemporal craniectomy defect. 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 No definite acute intracranial abnormality. (7) Port-A-Cath in place Assessment & Plan: prior removal for infection site okay dressings changed no active infection from wound picc Harman Zhao Aug 25, 2020 15:26
--- NOTE | 2020-08-25 15:42 | Diagnostic Imaging Report ---
Indication: Chest pain Technique: One view of the chest Comparison: 08/24/2020 Findings: There is slightly improved aeration of the left lateral lung base, with decreased atelectasis, although some atelectasis persists. There is also decreased but persistent retrocardiac consolidation. The right lung and pleural space are clear. There is a right arm PICC again demonstrated. A tracheostomy is again demonstrated Impression: Improved aeration of the left lung base, as described Other stable findings as described
--- NOTE | 2020-08-25 16:21 | General Progress Note ---
Subjective ROS Limited/Unobtainable: No Constitutional: Reports: malaise, weakness HEENT: Reports: no symptoms Cardiovascular: Reports: no symptoms Respiratory: Reports: shortness of breath, sputum Gastrointestinal/Abdominal: Reports: difficulty swallowing Genitourinary: Reports: no symptoms Neurologic/Psychiatric: Reports: pre-existing deficit, seizure Endocrine: Reports: no symptoms Hematologic/Lymphatic: Reports: anemia Allergies: Coded Allergies: ADHESIVE TAPE (Verified Allergy, Unknown, 07/20/20) Uncoded Allergies: TAPE (Allergy, Unknown, 08/07/20) All Systems: reviewed and negative except above Subjective alert. no new complaints. intermittent sob. no congestion. cxr improved. currently off abx. wbx trending up. Objective Last 24 Hour Vital Signs Date Time Temp Pulse Resp B/P (MAP) Pulse Ox O2 Delivery O2 Flow Rate FiO2 08/25/20 15:11 96.6 08/25/20 12:10 96.6 08/25/20 12:05 96.5 99 22 126/77 (93) 100 99 08/25/20 12:00 60 08/25/20 12:00 Mechanical Ventilator 08/25/20 11:51 108 08/25/20 11:38 65 23 60 08/25/20 08:51 60 08/25/20 08:50 Mechanical Ventilator 08/25/20 08:10 96.6 79 20 98/55 (69) 100 79 08/25/20 07:48 94 08/25/20 07:03 68 21 60 08/25/20 04:00 98.0 64 18 109/68 (82) 96 79 08/25/20 04:00 85 08/25/20 04:00 Mechanical Ventilator 08/25/20 04:00 60 08/25/20 03:19 72 25 60 08/25/20 00:00 60 08/25/20 00:00 Mechanical Ventilator 08/25/20 00:00 98.1 81 25 122/78 (93) 100 79 08/25/20 00:00 81 08/24/20 23:19 61 20 60 08/24/20 20:00 91 08/24/20 20:00 98.1 65 25 123/78 (93) 100 79 08/24/20 20:00 60 08/24/20 20:00 Mechanical Ventilator 08/24/20 19:30 62 23 60 Intake and Output 08/24/20 08/25/20 19:00 07:00 Intake Total 920 ml 800 ml Output Total 1000 ml 1600 ml Balance -80 ml -800 ml Free Water 190 ml 180 ml IV Total 100 ml 100 ml Tube Feeding 630 ml 520 ml Output Urine Total 1000 ml 1500 ml Stool Total 100 ml Laboratory Tests 08/25/20 04:00: White Blood Count 37.1#*H, Red Blood Count 2.31L, Hemoglobin 7.2L, Hematocrit 22.1L, Mean Corpuscular Volume 96, Mean Corpuscular Hemoglobin 31.3H, Mean Corpuscular Hemoglobin Concent 32.8, Red Cell Distribution Width 17.0H, Platelet Count 495H, Mean Platelet Volume 8.6, Neutrophils (%) (Auto) , Lymphocytes (%) (Auto) , Monocytes (%) (Auto) , Eosinophils (%) (Auto) , Basophils (%) (Auto) , Differential Total Cells Counted 100, Neutrophils % (Manual) 82H, Lymphocytes % (Manual) 14L, Monocytes % (Manual) 3, Eosinophils % (Manual) 1, Basophils % (Manual) 0, Band Neutrophils 0, Platelet Estimate Adequate, Platelet Morphology Normal, Hypochromasia 3+, Anisocytosis 1+, Spherocytes 1+, Iron Level 153, Total Iron Binding Capacity 208L, Percent Iron Saturation 74H, Unsaturated Iron Binding 55L, Ferritin 645H, Anti-Nuclear Antibody Screen [Pending], SmRNP Antibodies [Pending], Anti-Mitochondrial Antibody [Pending] 08/25/20 14:23: Troponin I 0.000 Height (Feet): 5 Height (Inches): 10.00 Weight (Pounds): 112 Objective General Appearance: WD/WN, lethargic EENT: normal ENT inspection Neck: normal alignment Cardiovascular: normal peripheral pulses, normal rate Respiratory/Chest: chest wall non-tender, lungs clear, normal breath sounds Abdomen: normal bowel sounds, non tender, soft, no organomegaly Edema: no edema noted Arm (L), no edema noted Arm (R) Neurologic: unresponsive Assessment/Plan Problem List: (1) Pneumonia ICD Codes: J18.9 - Pneumonia, unspecified organism SNOMED: 993475436 Qualifiers: Qualified Codes: J18.9 - Pneumonia, unspecified organism (2) Sickle cell anemia ICD Codes: D57.1 - Sickle-cell disease without crisis SNOMED: 757316516 Qualifiers: Qualified Codes: D57.00 - Hb-SS disease with crisis, unspecified (3) Severe sepsis ICD Codes: A41.9 - Sepsis, unspecified organism; R65.20 - Severe sepsis without septic shock SNOMED: 60214016 Status: stable, not improved Assessment/Plan: cont current rx reculture monitor wc resp care vent suctioning trach care gt feeds pain rx as needed monitor labs sz rx as is d/w mother dc planning Lalo Celaya MD Aug 25, 2020 16:21
--- NOTE | 2020-08-25 17:00 | Diagnostic Imaging Report ---
Indication: Status post tracheostomy adjustment Technique: One view of the chest Comparison: One hour earlier Findings: Improved aeration at the left lung base, previously demonstrated atelectatic changes have resolved. Lungs pleural spaces are currently clear. Right arm PICC, tracheostomy again demonstrated.. Impression: No acute process
--- NOTE | 2020-08-25 17:02 | NUR ---
NURSE NOTES: Pt trach was not going in all the way and Md Zhao was notified by passing by and attempted to fix the trach. the pt became lethargic and abg was ran, CO2 was high and transfered to ICu for intubation.
--- NOTE | 2020-08-25 17:44 | NUR ---
NURSE NOTES: Gave report to Zenaida abdul ..
--- NOTE | 2020-08-25 17:45 | NUR ---
NURSE NOTES: Assumed pt care,Report received from Abhinav Veliz RN.Pt transferred from SDU for c/o dislodge trach tube.Pt orally intubated by ER MD Dr Isidro Muse,with ETT 7.0 lip line 23,AC18,PIP 45 Fio2 6o%Peep 5.ER MD had a hard time intubating pt.,trach tube removed and covered with 4x4 dressing.Pt with rectal tube and Overton cath.
--- NOTE | 2020-08-25 18:00 | NUR ---
NURSE NOTES: Pt remains sedated,GTF started at 30,was turned off earlier at SDU since pt had a high residual.
--- NOTE | 2020-08-25 18:04 | Diagnostic Imaging Report ---
EXAM: XR Chest, 1 View CLINICAL HISTORY: Malposition. TECHNIQUE: Frontal view of the chest. COMPARISON: 08/25/2020. FINDINGS: Lungs: Patchy airspace disease medially at the lung bases possibly in the basilar atelectasis versus bibasilar pneumonias. Pleural space: Possible tiny left pleural effusion. No pneumothorax. Heart: Unremarkable. No cardiomegaly. Mediastinum: Unremarkable. Bones/joints: Osteopenia. Tubes, lines and devices: Endotracheal tube is noted in place with its tip at the thoracic inlet above the diana. Right subclavian catheter is noted in place with the tip of the distal superior vena cava. IMPRESSION: 1. Endotracheal tube is noted in place in good position per 2. Right subclavian noted in place as discussed above. 3. Bibasilar patchy airspace disease. 4. Patchy airspace disease at the left lung base has improved since the previous study. 5. Patchy airspace disease of the right lung base has slightly worsened. 6. Possible tiny left pleural effusion.
--- NOTE | 2020-08-25 18:36 | Emergency Room Report ---
History of Present Illness General Chief Complaint: Dyspnea/Respdistress Source: PMD Present Illness Allergies: Coded Allergies: ADHESIVE TAPE (Verified Allergy, Unknown, 07/20/20) Uncoded Allergies: TAPE (Allergy, Unknown, 08/07/20) COVID-19 Screening Contact w/high risk pt: No Experienced COVID-19 symptoms?: Yes COVID-19 symptoms experienced: Fever (T>100.4F or >38C) COVID-19 Testing performed WET WASHER MACHINE: No COVID-19 Screening: Negative COVID-19 Nursing Documentation-[facility] Past Medical History: No History, Except For Hx Cardiac Problems: Yes - SINUS TACYCARDIA Hx Cancer: No Hx Gastrointestinal Problems: Yes - GASTROSTOMY Hx Neurological Problems: Yes - , CEREBRAL ANEURYSM. Hx Seizures: Yes Hx Neurologic Surgery: Yes - RIGHT CRANIOTOMY DUE TO ICH Physical Exam Vital Signs Date Time Temp Pulse Resp B/P (MAP) Pulse Ox O2 Delivery O2 Flow Rate FiO2 08/21/20 07:15 62 18 40 08/21/20 08:00 98.2 122/71 (88) 100 08/21/20 08:00 Mechanical Ventilator Procedures Intubation Intubation : Consent: Emergent Tube Size (cm): 7.0 Medications: Etomidate, Rocuronium Breath Sounds after Intubation: equal Intubation Complications: no complications Post Intubation Xray: Yes Attempts: One Patient Tolerated: Well Complications: None Medical Decision Making Diagnostic Impression: Primary Impression: Severe sepsis Additional Impressions: Sickle cell anemia Qualified Codes: D57.00 - Hb-SS disease with crisis, unspecified Tachycardia Status post craniectomy Pneumonia Qualified Codes: J18.9 - Pneumonia, unspecified organism ER Course I was called to the bedside as the patient had dislodged his tracheostomy earlier in the day and attempts to place it has been unsuccessful. I was asked to endotracheally intubate the patient. Endotracheal intubation was performed given the patient 30 mg of etomidate and 70 mg of rocuronium. 7.0 cuffed tube was successfully placed in the patient's tracheostomy was removed. Patient maintained normal oxygen saturation throughout the procedure. Vitals were otherwise normal. Post intubation chest x-ray was ordered by the ICU charge juve saleem. Total critical care time: Approximately 15 minutes Due to a high probability of clinically significant, life threatening deterioration, the patient required the highest level of preparedness to intervene emergently and I personally spent this critical care time directly and personally managing the patient. This critical care time included obtaining a history, examining the patient, pulse oximetry, ordering and reviewing studies, ordering treatments, evaluating response to treatment and updating management plan as needed, frequent reassessment and discussion with other providers as well as arranging for ultimate disposition. This critical to care time was performed to assess and manage the high probability of life-threatening deterioration that could result in multiorgan failure. This critical care time is separate from the separately billable procedures and treating other patients. Last Vital Signs Date Time Temp Pulse Resp B/P (MAP) Pulse Ox O2 Delivery O2 Flow Rate FiO2 08/25/20 16:15 97.2 134 22 136/102 (113) 100 134 08/25/20 16:00 Mechanical Ventilator 08/25/20 16:00 60 Disposition: ADMITTED INPATIENT Condition: Critical Referrals: All Paige MD (PCP) Isidro Muse M.D. Aug 25, 2020 18:36
--- NOTE | 2020-08-25 19:20 | NUR ---
NURSE NOTES: Received patient and report from ARLYN Carter. Patient is observed resting in bed and remains drowsy and unable to follow commands. No pain noted upon assessment. Pt is orally intubated ett size 7.0 and noted to be 23 @ lip. Pt noted to have increased WOB and SOB at rest, RT present at bedside and ABG being collected for analysis. Will await results and inform Dr Nuñez as indicated. Vent settings well, vent settings as follows: AC 18, PC 45 FiO2 60% PEEP 5 with an O2 saturation of 91% noted at this time. Bilateral lower lobe breath sounds noted to be diminished upon auscultation. Pt placed back on tele monitor and noted to be ST with a HR of 126. Right upper arm PICC line noted which remains asymptomatic, intact and patent. Central line dressing remains clean, dry and intact. No fluids infusing at this time. VS obtained and SBP noted to be < 95 GT tube noted which remains intact, and patent. GT feeding currently on hold with 30mL residual noted at this time. Active bowel sounds noted in all four quadrants; abdomen remains flat and soft. Overton catheter noted and draining to gravity with yellow urine in collection bag.Rectal tube noted which continues to frain brown, liquid stool to gravity. Diagnostics reviewed at bedside. Skin alterations noted. Fall, Aspiration, Seizure and Skin precautions observed. Pt remains resting in bed; Bed remains in the lowest position with the safety wheels engaged, call light within reach, side rails up x3 and bed alarm activated. Will continue plan of care. Will continue to monitor.
[2020-08-25] MEDS ORDERED: propofoL 1,000mg/100ml 100 ML IV SCH (19:30)
--- NOTE | 2020-08-25 19:30 | NUR ---
NURSE HAND-OFF REPORT: Latest Vital Signs: Temperature 97.2 , Pulse 129 , B/P 136 /102 , Respiratory Rate 23 , O2 SAT 100 , Mechanical Ventilator, O2 Flow Rate . Vital Sign Comment: unstable EKG Rhythm: Sinus Tachycardia Rhythm change?: N MD Notified?: Luis DAVIES MD Response: Latest Stevens Fall Score: 55 Fall Risk: High Risk Safety Measures: Call light Within Reach, Bed Alarm Zone 2, Side Rails Side Rails x2, Bed position Low and Locked. Fall Precautions: Yellow Socks Yellow Gown Door Sign Patient Fall Education Report given to Hemal Bowen RN.
--- NOTE | 2020-08-25 19:44 | NUR ---
NURSE NOTES: Called Dr Nuñez to discuss current pt condition, ABG results and plan of care. Orders obtained to change vent settings as follows AC 22, PC 55 and to redraw ABG in 30 minutes after giving 2 amps Sodium Bicarb IVP Will carry out orders.
--- NOTE | 2020-08-25 19:55 | NUR ---
NURSE NOTES: Called RT to bedside to assist with pt care. Unable to change settings as ordered as ventilator noting compressor error. Ventilator changed without incident and Vent settings changed per new order. Will carry out rest of orders and consult with Dr Nuñez.
[2020-08-25] MEDS ORDERED: Sodium Bicarbonate 50ml Carp IV SCH (20:00)
[2020-08-25] MEDS: Dyna-Hex 2% Top Sol 2oz TOPIC SCH (20:07)
--- NOTE | 2020-08-25 21:09 | NUR ---
NURSE NOTES: Orders carried out and Dr Nuñez informed on latest ABG results. No further changes warranted at this time. Ok to start Propofol now as pt is becoming restless and SBP now noted to be >100 Orders obtained to repeat ABG in morning. Will carry out orders and continue to monitor.
--- NOTE | 2020-08-25 21:25 | NUR ---
NURSE NOTES: Bedside assessment performed, assessed pt with a FLACC scale of 0 noted. RASS score of -1 noted and Propofol initiated as ordered, will titrate per order to reach therapeutic RASS score of -2. VS obtained and remain stable at this time, pt noted to be visibly tolerating new vent settings better. Pt remains clean and dry. Pt repositioned for comfort and safety. Next of kin, pts mother, called unit for update on pt. Next of kin to call Dr Nuñez's office and leave a message over the weekend, noted to be concerned about new tracheostomy placement at this time considering previous complications. Fall, Aspiration and Skin precautions observed. Pt remains resting in bed; Bed remains in the lowest position with the safety wheels engaged, call light within reach, side rails up x3 and bed alarm activated. Will continue plan of care. Will continue to monitor.
--- NOTE | 2020-08-25 23:00 | NUR ---
Pt provided with a CHG bed bath, oral care and linen change. ROM exercises provided per pt tolerance. Pt tolerated care well. Bedside assessment performed, assessed pt for pain using FLACC scale with a score of 0 noted. RASS score of -2 noted and Propofol remains therapeutic at 20mcg/kg/min. VS obtained and remain stable at this time. Neuro assessment remains consistent with previous findings. Fall, Aspiration and Skin precautions observed. Pt remains resting in bed; Bed remains in the lowest position with the safety wheels engaged, call light within reach, side rails up x3 and bed alarm activated. Will continue plan of care. Will continue to monitor.
--- NOTE | 2020-08-25 23:43 | General Progress Note ---
Subjective Allergies: Coded Allergies: ADHESIVE TAPE (Verified Allergy, Unknown, 07/20/20) Uncoded Allergies: TAPE (Allergy, Unknown, 08/07/20) Subjective above noted found in respiratory distress d/w RN subsequent events noted Objective Last 24 Hour Vital Signs Date Time Temp Pulse Resp B/P (MAP) Pulse Ox O2 Delivery O2 Flow Rate FiO2 08/25/20 23:10 23 127/81 Mechanical Ventilator 60 08/25/20 23:10 98 08/25/20 23:00 97 22 60 08/25/20 23:00 119 23 127/81 (96) 100 08/25/20 22:10 22 112/57 Mechanical Ventilator 21 08/25/20 22:10 110 22 112/57 (75) 100 08/25/20 21:55 123 21 154/69 (97) 100 08/25/20 21:55 21 154/69 Mechanical Ventilator 60 08/25/20 21:40 21 147/74 Mechanical Ventilator 60 08/25/20 21:40 121 21 147/74 (98) 100 08/25/20 21:25 25 110/75 Mechanical Ventilator 50 08/25/20 21:25 119 22 129/90 (103) 100 08/25/20 21:00 91 22 105/57 (73) 100 08/25/20 20:22 97 22 60 08/25/20 20:22 60 08/25/20 20:00 98.4 99 22 94/59 (71) 100 08/25/20 20:00 60 08/25/20 20:00 Mechanical Ventilator Mechanical Ventilator 08/25/20 19:20 107 08/25/20 19:08 129 23 60 08/25/20 16:15 97.2 134 22 136/102 (113) 100 134 08/25/20 16:00 Mechanical Ventilator 08/25/20 16:00 60 08/25/20 15:48 100 22 60 08/25/20 15:25 124 08/25/20 15:11 96.6 08/25/20 12:10 96.6 08/25/20 12:05 96.5 99 22 126/77 (93) 100 99 08/25/20 12:00 60 08/25/20 12:00 Mechanical Ventilator 08/25/20 11:51 108 08/25/20 11:38 65 23 60 9/25/20 08:51 60 08/25/20 08:50 Mechanical Ventilator 08/25/20 08:10 96.6 79 20 98/55 (69) 100 79 08/25/20 07:48 94 08/25/20 07:03 68 21 60 08/25/20 04:00 98.0 64 18 109/68 (82) 96 79 08/25/20 04:00 85 08/25/20 04:00 Mechanical Ventilator 08/25/20 04:00 60 08/25/20 03:19 72 25 60 08/25/20 00:00 60 08/25/20 00:00 Mechanical Ventilator 08/25/20 00:00 98.1 81 25 122/78 (93) 100 79 08/25/20 00:00 81 Intake and Output 08/24/20 08/25/20 19:00 07:00 Intake Total 920 ml 800 ml Output Total 1000 ml 1600 ml Balance -80 ml -800 ml Free Water 190 ml 180 ml IV Total 100 ml 100 ml Tube Feeding 630 ml 520 ml Output Urine Total 1000 ml 1500 ml Stool Total 100 ml Laboratory Tests 08/25/20 04:00: White Blood Count 37.1#*H, Red Blood Count 2.31L, Hemoglobin 7.2L, Hematocrit 22.1L, Mean Corpuscular Volume 96, Mean Corpuscular Hemoglobin 31.3H, Mean Corpuscular Hemoglobin Concent 32.8, Red Cell Distribution Width 17.0H, Platelet Count 495H, Mean Platelet Volume 8.6, Neutrophils (%) (Auto) , Lymphocytes (%) (Auto) , Monocytes (%) (Auto) , Eosinophils (%) (Auto) , Basophils (%) (Auto) , Differential Total Cells Counted 100, Neutrophils % (Manual) 82H, Lymphocytes % (Manual) 14L, Monocytes % (Manual) 3, Eosinophils % (Manual) 1, Basophils % (Manual) 0, Band Neutrophils 0, Platelet Estimate Adequate, Platelet Morphology Normal, Hypochromasia 3+, Anisocytosis 1+, Spherocytes 1+, Iron Level 153, Total Iron Binding Capacity 208L, Percent Iron Saturation 74H, Unsaturated Iron Binding 55L, Ferritin 645H, Anti-Nuclear Antibody Screen [Pending], SmRNP Antibodies [Pending], Anti-Mitochondrial Antibody [Pending] 08/25/20 14:23: Troponin I 0.000, Triglycerides Level 59 08/25/20 16:38: Arterial Blood pH 7.049*L, Arterial Blood Partial Pressure CO2 84.5*H, Arterial Blood Partial Pressure O2 169.1H, Arterial Blood HCO3 22.8, Arterial Blood Oxygen Saturation 98.4, Arterial Blood Base Excess -7.9L, Iglesia Test Positive 08/25/20 19:27: Arterial Blood pH 7.144*L, Arterial Blood Partial Pressure CO2 63.7*H, Arterial Blood Partial Pressure O2 95.4, Arterial Blood HCO3 21.4L, Arterial Blood Oxygen Saturation 95.0, Arterial Blood Base Excess -7.5L, Iglesia Test Positive 08/25/20 20:30: Arterial Blood pH 7.355, Arterial Blood Partial Pressure CO2 44.2, Arterial Blood Partial Pressure O2 115.1H, Arterial Blood HCO3 24.1, Arterial Blood Oxygen Saturation 97.7, Arterial Blood Base Excess -1.3, Iglesia Test Positive Height (Feet): 5 Height (Inches): 10.00 Weight (Pounds): 112 Objective Thin AA Man HEENT s/p craniotomy neck (+) trach Coarse BS, ronchi, tachypnic RR/tachy abd soft (+) GT no edema Assessment/Plan Status: stable, not improved Assessment/Plan: Assessment - respiratory distress - recent occluded GT - replaced - abnormal LFT - 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
[2020-08-26] VITALS (27 sets, daily range): BP systolic 56–132; BP diastolic 32–74
--- NOTE | 2020-08-26 01:00 | NUR ---
NURSE NOTES: Bedside assessment performed, assessed pt with a FLACC scale of 0 noted. RASS score of -2 noted and Propofol remains infusing at 20mcg/kg/min, noted to be therapeutic. VS obtained and remain stable at this time. Pt remains calm, comfortable, clean and dry. Pt continues to tolerate current vent settings well. Pt repositioned for comfort and safety. Fall, Aspiration, Seizure and Skin precautions observed. Pt remains resting in bed; Bed remains in the lowest position with the safety wheels engaged, call light within reach, side rails up x3 and bed alarm activated. Will continue plan of care. Will continue to monitor.
[2020-08-26] MEDS: Cefepime HCl 2 GM in D5W 55 ML IVPB SCH ×2 (01:30→14:00)
--- NOTE | 2020-08-26 02:45 | NUR ---
NURSE NOTES: Bilateral soft wrist restraints remains in place for patient safety. Pt provided with education but remains unable to comprehend and follow commands at this time. CMS remains intact and ROM exercises provided. Diversional activities not effective at this time. Pt remains calm, comfortable, clean and dry. Pt repositioned for comfort and safety. Fall, Aspiration, Seizure and Skin precautions observed. Pt remains resting in bed; Bed remains in the lowest position with the safety wheels engaged, call light within reach, side rails up x3 and bed alarm activated. Will continue plan of care. Will continue to monitor.
--- NOTE | 2020-08-26 03:00 | NUR ---
NURSE NOTES: Bedside assessment performed, assessed pt with a FLACC scale of 0 noted. RASS score of -2 noted however pt now noted to be hemodynamically unstable with a SBP <60. Deviated from Propofol titration protocol due to hemodynamic instability. Propofol currently on hold. Attempted to contact Dr Celaya as no immigration specialist noted to be assigned to case at this time. Made MD aware of current situation and pt condition. Pt remains clean and dry. Pt continues to tolerate current vent settings well. Pt repositioned for comfort and safety. Fall, Aspiration, Seizure and Skin precautions observed. Pt remains resting in bed; Bed remains in the lowest position with the safety wheels engaged, call light within reach, side rails up x3 and bed alarm activated. Will continue plan of care. Will await a call back with further orders. Will continue to monitor.
--- NOTE | 2020-08-26 05:00 | NUR ---
NURSE NOTES: Bedside assessment performed, assessed pt with a FLACC scale of 0 noted. RASS score of -2 noted; Propofol infusing at 5mcg/kg/min with no adverse effects noted at this time. VS obtained and noted to be stable. Pt remains tolerating current vent settings well. Pt remains clean and dry. Pt continues to tolerate current vent settings well. Bilateral soft wrist restraints remain in place as pt continues to attempt to pull at et tube. CMS remains intact. Pt provided education but unable to follow commands at this time. Pt repositioned for comfort and safety. Fall, Aspiration, Seizure and Skin precautions observed. Pt remains resting in bed; Bed remains in the lowest position with the safety wheels engaged, call light within reach, side rails up x3 and bed alarm activated. Will continue plan of care. Will await a call back with further orders. Will continue to monitor.
[2020-08-26 05:11] LABS: MEAN CORPUSCULAR VOLUME 95 FL (80-99); PLATELET COUNT 434 K/UL (150-450); RED CELL DISTRIBUTION WIDTH 16.1 % (11.6-14.8)
[2020-08-26 05:33] LABS: HEMOGLOBIN 6.7 G/DL (14.2-18.0); WHITE BLOOD COUNT 39.3 K/UL (4.8-10.8)
[2020-08-26 05:45] LABS: ALANINE AMINOTRANSFERASE 78 U/L (12-78); ALBUMIN 2.7 G/DL (3.4-5.0); ALBUMIN/GLOBULIN RATIO 0.6 (1.0-2.7); ALKALINE PHOSPHATASE 466 U/L (46-116); ANION GAP 9 mmol/L (5-15); ASPARTATE AMINO TRANSFERASE 63 U/L (15-37); BILIRUBIN,DIRECT 0.6 MG/DL (0.0-0.3); BILIRUBIN,TOTAL 1.3 MG/DL (0.2-1.0); BLOOD UREA NITROGEN 50 mg/dL (7-18); CARBON DIOXIDE 25 MMOL/L (21-32); CHLORIDE 115 MMOL/L (98-107); CREATININE 1.1 MG/DL (0.55-1.30); POTASSIUM 4.6 MMOL/L (3.5-5.1); SODIUM 149 MMOL/L (136-145)
[2020-08-26] MEDS: Acetaminophen 650mg/20.3ml GT PRN (05:58)
--- NOTE | 2020-08-26 06:08 | NUR ---
NURSE NOTES: Bedside assessment performed, assessed pt with a FLACC scale of 3 noted. PRN Tylenol administered as ordered. No adverse effects noted at this time. Will reassess and continue to monitor. Fall, Aspiration and Skin precautions observed. Pt remains resting in bed; Bed remains in the lowest position with the safety wheels engaged, call light within reach, side rails up x3 and bed alarm activated. Will continue plan of care. Will continue to monitor.
--- NOTE | 2020-08-26 06:35 | NUR ---
NURSE NOTES: Left message for Dr Celaya in regards to current pt condition. No PRN pain medication, SBP of 60s with increase in Propofol and will report hgb of 6.7 when he calls back if Dr Castillo is not present for rounds during that time. Will await a call back and continue to monitor.
--- NOTE | 2020-08-26 06:39 | NUR ---
NURSE NOTES: Propofol infusion initiated on 08/25/20 at 21:25 Therefore 12 hours noted to be 08/26/20 at 09:25 Awaiting a call back regarding Propofol use in pt vs Fentanyl use vs PRN medications. Will hold off on starting new bottle of Propofol until 12 hours after initiation while awaiting a call back.
--- NOTE | 2020-08-26 06:49 | NUR ---
NURSE NOTES: Discussed current pt condition and plan of care with Dr Celaya Orders received to D/C Propofol Morphine 1mg IVP Q4hr PRN Pain Ativan 1mg IVP Q4hr PRN Agitation/Anxiety Addendum: 08/26/20 at 0651 by ROXY PEREZ RN Made Dr Celaya aware of current abnormal lab values including Hgb No orders for transfusion at this time
[2020-08-26] MEDS ORDERED: LORazepam Inj 2mg/ml 1ml IV PRN (07:00)
[2020-08-26] MEDS ORDERED: Morphine Sulfate 2mg/ml Inj(IV/IM USE ONLY) IVP PRN (07:00)
--- NOTE | 2020-08-26 07:30 | NUR ---
NURSE HAND-OFF REPORT: Latest Vital Signs: Temperature 98.0 , Pulse 85 , B/P 107 /50 , Respiratory Rate 22 , O2 SAT 100 , Mechanical Ventilator, O2 Flow Rate . Vital Sign Comment: EKG Rhythm: Sinus Rhythm Rhythm change?: N MD Notified?: N Response: N/A Latest Stevens Fall Score: 55 Fall Risk: High Risk Safety Measures: Call light Within Reach, Bed Alarm Zone 2, Side Rails Side Rails x2, Bed position Low and Locked. Fall Precautions: Yellow Socks Yellow Gown Door Sign Patient Fall Education Report given to ARLYN Brower. Endorsed plan of care.
--- NOTE | 2020-08-26 08:00 | NUR ---
NURSE NOTES: Pt was assessed after receiving change of shift report from Noe STODDARD. Pt is awake, intubated, restless, follows commands, however resistant to care and impulsive, kicked pillows off bed, and attempting to reach for ET tube. Bilateral soft wrist restraints are in place to prevent self extubation; skin/vascular integrity at restraint site remains within normal limits. ETT 7.0 at 23cm lipline with current vent settings, AC22, PC 55, Peep 5.0, FIO2 55, at 100% O2Sat. NSR on lunchroom monitor, HR 80, Temp 99.3F axillary, extremities warm to touch with bounding peripheral pulses. Right upper arm double lumen PICC line is noted, currently TKO, patent/intact. Per current report, Propofol was discontinued at 0648 this morning, right before change of shift, due to episodes of severe hypotension per date night caregiver RN. VS currently remain stable. GT with feeding Vital AF 1.2 is infusing at 30ml/hour, residuals slowly improved during date night caregiver from 50 down to 30ml, and now it is at zero residual. Rectal tube is present, draining, liquid/light brown/yellowish stool. Skin alterations noted, including sacral DTI/small open pressure ulcer, covered with optifoam dressing. Pt remains on pressure release mattress, HOB at 30degrees, bed locked, in lowest position, three side rails up. Will continue with plan of care.
--- NOTE | 2020-08-26 10:00 | NUR ---
NURSE NOTES: Ativan was administered per PRN order for anxiety, as pt is noted to be restless. All scheduled AM meds were administered. Dr. Stiles is at the nurse's station. notified regarding resolution of GT residuals after PRN administration of Reglan by previous shift RN. Order was received to edit Reglan frequency to scheduled Q8 hours. Dr. Celaya was also updated on pt's current status, while at the nurse station, including AM labs, Hgb=6.7 and En=771. Per MD, order will be placed for IV fluids, however no blood transfusion needed/since Hgb level is related to pt's sickle cell.
[2020-08-26] MEDS: Pantoprazole Inj IVP SCH ×2 (10:03→20:19)
[2020-08-26] MEDS: LORazepam Inj 2mg/ml 1ml IV PRN ×3 (10:04→17:40)
[2020-08-26] MEDS: Heparin 5000 units/ml inj SUBQ SCH ×2 (10:05→20:17)
[2020-08-26] MEDS: levETIRAcetam 1,000mg/NS100ml 100 ML IVPB SCH ×2 (10:06→20:18)
--- NOTE | 2020-08-26 10:12 | General Progress Note ---
Subjective ROS Limited/Unobtainable: No Constitutional: Reports: malaise, weakness HEENT: Reports: no symptoms Cardiovascular: Reports: no symptoms Respiratory: Reports: shortness of breath, sputum Gastrointestinal/Abdominal: Reports: difficulty swallowing Genitourinary: Reports: no symptoms Neurologic/Psychiatric: Reports: pre-existing deficit, seizure Endocrine: Reports: no symptoms Hematologic/Lymphatic: Reports: anemia Allergies: Coded Allergies: ADHESIVE TAPE (Verified Allergy, Unknown, 07/20/20) Uncoded Allergies: TAPE (Allergy, Unknown, 08/07/20) All Systems: reviewed and negative except above Subjective trach came out yesterday. replaced emergently but still unable to ventilate effectively afterwards. ER orally intubated pt. transferred to the icu, currently sedated. awake but calm. BP stable. propofol dcd due to low bp Objective Last 24 Hour Vital Signs Date Time Temp Pulse Resp B/P (MAP) Pulse Ox O2 Delivery O2 Flow Rate FiO2 08/26/20 08:00 81 08/26/20 07:16 85 22 55 08/26/20 07:00 88 22 107/50 (69) 100 08/26/20 06:50 22 105/58 Mechanical Ventilator 55 08/26/20 06:50 22 105/58 Mechanical Ventilator 55 08/26/20 06:50 22 105/58 Mechanical Ventilator 55 08/26/20 06:50 22 105/58 Mechanical Ventilator 55 08/26/20 06:35 22 105/58 Mechanical Ventilator 55 08/26/20 06:00 102 21 105/58 (74) 100 08/26/20 05:35 22 98/51 Mechanical Ventilator 55 08/26/20 05:00 107 22 98/51 (67) 95 08/26/20 04:35 22 96/47 Mechanical Ventilator 55 08/26/20 04:00 Mechanical Ventilator Mechanical Ventilator 08/26/20 04:00 55 08/26/20 04:00 98.0 94 22 96/47 (63) 100 08/26/20 03:35 22 123/60 Mechanical Ventilator 55 08/26/20 03:35 102 30 123/60 (81) 100 08/26/20 03:20 101 22 126/72 (90) 100 08/26/20 03:20 22 126/72 Mechanical Ventilator 22 08/26/20 03:04 104 22 55 9/26/20 03:02 101 08/26/20 03:00 101 22 123/53 (76) 100 08/26/20 02:00 22 56/32 Mechanical Ventilator 55 08/26/20 02:00 98 22 56/32 (40) 100 08/26/20 01:55 22 88/60 Mechanical Ventilator 55 08/26/20 01:55 107 25 88/60 (69) 98 08/26/20 01:10 24 101/62 Mechanical Ventilator 55 08/26/20 01:00 94 24 101/62 (75) 100 08/26/20 00:10 30 110/74 Mechanical Ventilator 55 08/26/20 00:00 55 08/26/20 00:00 98.4 105 30 110/74 (86) 100 08/26/20 00:00 Mechanical Ventilator Mechanical Ventilator 08/25/20 23:10 23 127/81 Mechanical Ventilator 60 08/25/20 23:10 98 08/25/20 23:00 97 22 60 08/25/20 23:00 119 23 127/81 (96) 100 08/25/20 22:10 22 112/57 Mechanical Ventilator 21 08/25/20 22:10 110 22 112/57 (75) 100 08/25/20 21:55 123 21 154/69 (97) 100 08/25/20 21:55 21 154/69 Mechanical Ventilator 60 08/25/20 21:40 21 147/74 Mechanical Ventilator 60 08/25/20 21:40 121 21 147/74 (98) 100 08/25/20 21:25 25 110/75 Mechanical Ventilator 50 08/25/20 21:25 119 22 129/90 (103) 100 08/25/20 21:00 91 22 105/57 (73) 100 08/25/20 20:22 97 22 60 08/25/20 20:22 60 08/25/20 20:00 98.4 99 22 94/59 (71) 100 08/25/20 20:00 60 08/25/20 20:00 Mechanical Ventilator Mechanical Ventilator 08/25/20 19:20 107 08/25/20 19:08 129 23 60 08/25/20 16:15 97.2 134 22 136/102 (113) 100 134 08/25/20 16:00 Mechanical Ventilator 08/25/20 16:00 60 08/25/20 15:48 100 22 60 08/25/20 15:25 124 08/25/20 15:11 96.6 08/25/20 12:10 96.6 08/25/20 12:05 96.5 99 22 126/77 (93) 100 99 08/25/20 12:00 60 08/25/20 12:00 Mechanical Ventilator 08/25/20 11:51 108 08/25/20 11:38 65 23 60 Intake and Output 08/25/20 08/26/20 19:00 07:00 Intake Total 240 ml 887.1225 ml Output Total 980 ml 820 ml Balance -740 ml 67.1225 ml Free Water 90 ml IV Total 437.1225 ml Tube Feeding 240 ml 360 ml Output Urine Total 930 ml 770 ml Stool Total 50 ml 50 ml Laboratory Tests 08/25/20 14:23: Troponin I 0.000, Triglycerides Level 59 08/25/20 16:38: Arterial Blood pH 7.049*L, Arterial Blood Partial Pressure CO2 84.5*H, Arterial Blood Partial Pressure O2 169.1H, Arterial Blood HCO3 22.8, Arterial Blood Oxygen Saturation 98.4, Arterial Blood Base Excess -7.9L, Iglesia Test Positive 08/25/20 19:27: Arterial Blood pH 7.144*L, Arterial Blood Partial Pressure CO2 63.7*H, Arterial Blood Partial Pressure O2 95.4, Arterial Blood HCO3 21.4L, Arterial Blood Oxygen Saturation 95.0, Arterial Blood Base Excess -7.5L, Iglesia Test Positive 08/25/20 20:30: Arterial Blood pH 7.355, Arterial Blood Partial Pressure CO2 44.2, Arterial Blood Partial Pressure O2 115.1H, Arterial Blood HCO3 24.1, Arterial Blood Oxygen Saturation 97.7, Arterial Blood Base Excess -1.3, Iglesia Test Positive 08/26/20 03:55: White Blood Count 39.3*H, Red Blood Count 2.10L, Hemoglobin 6.7*L, Hematocrit 20.0L, Mean Corpuscular Volume 95, Mean Corpuscular Hemoglobin 31.9H, Mean Corpuscular Hemoglobin Concent 33.5, Red Cell Distribution Width 16.1H, Platelet Count 434, Mean Platelet Volume 8.6, Neutrophils (%) (Auto) , Lymphocytes (%) (Auto) , Monocytes (%) (Auto) , Eosinophils (%) (Auto) , Basophils (%) (Auto) , Neutrophils % (Manual) [Pending], Lymphocytes % (Manual) [Pending], Platelet Estimate [Pending], Platelet Morphology [Pending], Sodium Level 149H, Potassium Level 4.6, Chloride Level 115H, Carbon Dioxide Level 25, Anion Gap 9, Blood Urea Nitrogen 50H, Creatinine 1.1, Estimat Glomerular Filtration Rate > 60, Glucose Level 104, Calcium Level 9.0, Total Bilirubin 1.3H, Direct Bilirubin 0.6H, Aspartate Amino Transf (AST/SGOT) 63H, Alanine Aminotransferase (ALT/SGPT) 78, Alkaline Phosphatase 466H, Total Protein 7.2, Albumin 2.7L, Globulin 4.5, Albumin/Globulin Ratio 0.6L 08/26/20 07:30: Arterial Blood pH 7.507H, Arterial Blood Partial Pressure CO2 27.0L, Arterial Blood Partial Pressure O2 57.3L, Arterial Blood HCO3 20.9L, Arterial Blood Oxygen Saturation 90.2L, Arterial Blood Base Excess -1.7, Iglesia Test Positive Height (Feet): 5 Height (Inches): 10.00 Weight (Pounds): 112 Objective General Appearance: WD/WN, lethargic. orally intubated EENT: normal ENT inspection Neck: normal alignment Cardiovascular: normal peripheral pulses, normal rate Respiratory/Chest: chest wall non-tender, lungs clear, normal breath sounds Abdomen: normal bowel sounds, non tender, soft, no organomegaly Edema: no edema noted Arm (L), no edema noted Arm (R) Neurologic: weak/sedated Assessment/Plan Problem List: (1) Pneumonia ICD Codes: J18.9 - Pneumonia, unspecified organism SNOMED: 075391206 Qualifiers: Qualified Codes: J18.9 - Pneumonia, unspecified organism (2) Sickle cell anemia ICD Codes: D57.1 - Sickle-cell disease without crisis SNOMED: 124651134 Qualifiers: Qualified Codes: D57.00 - Hb-SS disease with crisis, unspecified (3) Severe sepsis ICD Codes: A41.9 - Sepsis, unspecified organism; R65.20 - Severe sepsis without septic shock SNOMED: 64303994 Status: stable, not improved Assessment/Plan: cont vent support iv abx follow up cultures check cxr monitor abg resp care suctioning as needed dvt/stress ulcer prophylaxis surgery follow up will likely need new trach d/w mother Lalo Ahumada MD Aug 26, 2020 10:11
--- NOTE | 2020-08-26 11:07 | Critical Care Progress Note ---
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 Port-A-Cath Status post removal of implanted right chest wall Port-A-Cath Sickle cell crisis Sickle cell anemia Chronic respiratory failure, ventilator dependent, with tracheostomy status Transaminitis Seizure disorder acute pneumonia leukocytosis recurrent sepsis PLAN care noted IV antibiotics per ID respiratory care as is Ventilatory support- vent adjusted with improved acid base SNF meds supportive care suction no wean planned monitor wbc per ID oxygen therapy and titrate prognosis guarded medications/laboratory data/nursing notes reviewed in detail note reviewed and edited care discussed with RN and RT Critical Care - Subjective Interval Events: transferred to ICU ROS Limited/Unobtainable: Yes Condition: critical EKG Rhythm: Sinus Rhythm Residuals: minimal Tube Feeding Tolerated: yes I&O: Intake and Output 08/25/20 08/26/20 19:00 07:00 Intake Total 240 ml 887.1225 ml Output Total 980 ml 820 ml Balance -740 ml 67.1225 ml Free Water 90 ml IV Total 437.1225 ml Tube Feeding 240 ml 360 ml Output Urine Total 930 ml 770 ml Stool Total 50 ml 50 ml Critical Care - Objective ET-Tube: 7.0 ET Position: 23 Last 24 Hour Vital Signs Date Time Temp Pulse Resp B/P (MAP) Pulse Ox O2 Delivery O2 Flow Rate FiO2 08/26/20 10:39 95 22 103/54 98 08/26/20 10:09 84 22 107/50 100 08/26/20 08:00 81 08/26/20 07:16 85 22 55 08/26/20 07:00 88 22 107/50 (69) 100 08/26/20 06:50 22 105/58 Mechanical Ventilator 55 08/26/20 06:50 22 105/58 Mechanical Ventilator 55 08/26/20 06:50 22 105/58 Mechanical Ventilator 55 08/26/20 06:50 22 105/58 Mechanical Ventilator 55 08/26/20 06:35 22 105/58 Mechanical Ventilator 55 08/26/20 06:00 102 21 105/58 (74) 100 08/26/20 05:35 22 98/51 Mechanical Ventilator 55 08/26/20 05:00 107 22 98/51 (67) 95 08/26/20 04:35 22 96/47 Mechanical Ventilator 55 08/26/20 04:00 Mechanical Ventilator Mechanical Ventilator 08/26/20 04:00 55 08/26/20 04:00 98.0 94 22 96/47 (63) 100 08/26/20 03:35 22 123/60 Mechanical Ventilator 55 08/26/20 03:35 102 30 123/60 (81) 100 08/26/20 03:20 101 22 126/72 (90) 100 08/26/20 03:20 22 126/72 Mechanical Ventilator 22 08/26/20 03:04 104 22 55 08/26/20 03:02 101 08/26/20 03:00 101 22 123/53 (76) 100 08/26/20 02:00 22 56/32 Mechanical Ventilator 55 08/26/20 02:00 98 22 56/32 (40) 100 08/26/20 01:55 22 88/60 Mechanical Ventilator 55 08/26/20 01:55 107 25 88/60 (69) 98 08/26/20 01:10 24 101/62 Mechanical Ventilator 55 08/26/20 01:00 94 24 101/62 (75) 100 08/26/20 00:10 30 110/74 Mechanical Ventilator 55 08/26/20 00:00 55 08/26/20 00:00 98.4 105 30 110/74 (86) 100 08/26/20 00:00 Mechanical Ventilator Mechanical Ventilator 08/25/20 23:10 23 127/81 Mechanical Ventilator 60 08/25/20 23:10 98 08/25/20 23:00 97 22 60 08/25/20 23:00 119 23 127/81 (96) 100 08/25/20 22:10 22 112/57 Mechanical Ventilator 21 08/25/20 22:10 110 22 112/57 (75) 100 08/25/20 21:55 123 21 154/69 (97) 100 08/25/20 21:55 21 154/69 Mechanical Ventilator 60 08/25/20 21:40 21 147/74 Mechanical Ventilator 60 08/25/20 21:40 121 21 147/74 (98) 100 08/25/20 21:25 25 110/75 Mechanical Ventilator 50 08/25/20 21:25 119 22 129/90 (103) 100 08/25/20 21:00 91 22 105/57 (73) 100 08/25/20 20:22 97 22 60 08/25/20 20:22 60 08/25/20 20:00 98.4 99 22 94/59 (71) 100 08/25/20 20:00 60 08/25/20 20:00 Mechanical Ventilator Mechanical Ventilator 08/25/20 19:20 107 08/25/20 19:08 129 23 60 08/25/20 16:15 97.2 134 22 136/102 (113) 100 134 08/25/20 16:00 Mechanical Ventilator 08/25/20 16:00 60 08/25/20 15:48 100 22 60 08/25/20 15:25 124 08/25/20 15:11 96.6 08/25/20 12:10 96.6 08/25/20 12:05 96.5 99 22 126/77 (93) 100 99 08/25/20 12:00 60 08/25/20 12:00 Mechanical Ventilator 08/25/20 11:51 108 08/25/20 11:38 65 23 60 Labs: Labs Test 08/23/20 16:00 08/24/20 04:00 08/24/20 13:10 08/25/20 04:00 White Blood Count 25.5 K/UL (4.8-10.8) 23.9 K/UL (4.8-10.8) 37.1 K/UL (4.8-10.8) Red Blood Count 2.23 M/UL (4.70-6.10) 2.19 M/UL (4.70-6.10) 2.31 M/UL (4.70-6.10) Hemoglobin 7.4 G/DL (14.2-18.0) 7.0 G/DL (14.2-18.0) 7.2 G/DL (14.2-18.0) Hematocrit 22.5 % (42.0-52.0) 20.6 % (42.0-52.0) 22.1 % (42.0-52.0) Mean Corpuscular Volume 101 FL (80-99) 94 FL (80-99) 96 FL (80-99) Mean Corpuscular Hemoglobin 33.2 PG (27.0-31.0) 31.9 PG (27.0-31.0) 31.3 PG (27.0-31.0) Mean Corpuscular Hemoglobin Concent 32.9 G/DL (32.0-36.0) 34.0 G/DL (32.0-36.0) 32.8 G/DL (32.0-36.0) Red Cell Distribution Width 17.6 % (11.6-14.8) 16.7 % (11.6-14.8) 17.0 % (11.6-14.8) Platelet Count 503 K/UL (150-450) 446 K/UL (150-450) 495 K/UL (150-450) Mean Platelet Volume 8.7 FL (6.5-10.1) 8.3 FL (6.5-10.1) 8.6 FL (6.5-10.1) Neutrophils (%) (Auto) % (45.0-75.0) % (45.0-75.0) % (45.0-75.0) Lymphocytes (%) (Auto) % (20.0-45.0) % (20.0-45.0) % (20.0-45.0) Monocytes (%) (Auto) % (1.0-10.0) % (1.0-10.0) % (1.0-10.0) Eosinophils (%) (Auto) % (0.0-3.0) % (0.0-3.0) % (0.0-3.0) Basophils (%) (Auto) % (0.0-2.0) % (0.0-2.0) % (0.0-2.0) Differential Total Cells Counted 100 100 100 Neutrophils % (Manual) 72 % (45-75) 70 % (45-75) 82 % (45-75) Lymphocytes % (Manual) 18 % (20-45) 20 % (20-45) 14 % (20-45) Monocytes % (Manual) 6 % (1-10) 5 % (1-10) 3 % (1-10) Eosinophils % (Manual) 4 % (0-3) 5 % (0-3) 1 % (0-3) Basophils % (Manual) 0 % (0-2) 0 % (0-2) 0 % (0-2) Band Neutrophils 0 % (0-8) 0 % (0-8) 0 % (0-8) Platelet Estimate Increased Adequate Adequate Platelet Morphology Normal Normal Normal Polychromasia 2+ Anisocytosis 2+ 1+ 1+ Macrocytosis 1+ Reticulocyte Count 5.4 % (0.5-2.0) Sodium Level 143 MMOL/L (136-145) Potassium Level 4.1 MMOL/L (3.5-5.1) Chloride Level 110 MMOL/L (98-107) Carbon Dioxide Level 23 MMOL/L (21-32) Anion Gap 10 mmol/L (5-15) Blood Urea Nitrogen 39 mg/dL (7-18) Creatinine 1.0 MG/DL (0.55-1.30) Estimat Glomerular Filtration Rate > 60 mL/min (>60) Glucose Level 93 MG/DL (74-106) Calcium Level 9.0 MG/DL (8.5-10.1) Total Bilirubin 1.1 MG/DL (0.2-1.0) Direct Bilirubin 0.5 MG/DL (0.0-0.3) Aspartate Amino Transf (AST/SGOT) 81 U/L (15-37) Alanine Aminotransferase (ALT/SGPT) 102 U/L (12-78) Alkaline Phosphatase 540 U/L (46-116) Total Protein 8.4 G/DL (6.4-8.2) Albumin 2.6 G/DL (3.4-5.0) Globulin 5.8 g/dL Albumin/Globulin Ratio 0.4 (1.0-2.7) Hypochromasia 1+ 3+ Arterial Blood pH 7.342 (7.350-7.450) Arterial Blood Partial Pressure CO2 35.4 mmHg (35.0-45.0) Arterial Blood Partial Pressure O2 76.2 mmHg (75.0-100.0) Arterial Blood HCO3 18.8 mmol/L (22.0-26.0) Arterial Blood Oxygen Saturation 92.2 % (95-100) Arterial Blood Base Excess -6.4 (-2-2) Iglesia Test Positive Spherocytes 1+ Iron Level 153 ug/dL (50-175) Total Iron Binding Capacity 208 ug/dL (250-450) Percent Iron Saturation 74 % (15-50) Unsaturated Iron Binding 55 ug/dL (112-346) Ferritin 645 NG/ML (8-388) Test 08/25/20 14:23 08/25/20 16:38 9/25/20 19:27 08/25/20 20:30 Troponin I 0.000 ng/mL (0.000-0.056) Triglycerides Level 59 MG/DL (30-150) Arterial Blood pH 7.049 (7.350-7.450) 7.144 (7.350-7.450) 7.355 (7.350-7.450) Arterial Blood Partial Pressure CO2 84.5 mmHg (35.0-45.0) 63.7 mmHg (35.0-45.0) 44.2 mmHg (35.0-45.0) Arterial Blood Partial Pressure O2 169.1 mmHg (75.0-100.0) 95.4 mmHg (75.0-100.0) 115.1 mmHg (75.0-100.0) Arterial Blood HCO3 22.8 mmol/L (22.0-26.0) 21.4 mmol/L (22.0-26.0) 24.1 mmol/L (22.0-26.0) Arterial Blood Oxygen Saturation 98.4 % (95-100) 95.0 % (95-100) 97.7 % (95-100) Arterial Blood Base Excess -7.9 (-2-2) -7.5 (-2-2) -1.3 (-2-2) Iglesia Test Positive Positive Positive Test 08/26/20 03:55 08/26/20 07:30 White Blood Count 39.3 K/UL (4.8-10.8) Red Blood Count 2.10 M/UL (4.70-6.10) Hemoglobin 6.7 G/DL (14.2-18.0) Hematocrit 20.0 % (42.0-52.0) Mean Corpuscular Volume 95 FL (80-99) Mean Corpuscular Hemoglobin 31.9 PG (27.0-31.0) Mean Corpuscular Hemoglobin Concent 33.5 G/DL (32.0-36.0) Red Cell Distribution Width 16.1 % (11.6-14.8) Platelet Count 434 K/UL (150-450) Mean Platelet Volume 8.6 FL (6.5-10.1) Neutrophils (%) (Auto) % (45.0-75.0) Lymphocytes (%) (Auto) % (20.0-45.0) Monocytes (%) (Auto) % (1.0-10.0) Eosinophils (%) (Auto) % (0.0-3.0) Basophils (%) (Auto) % (0.0-2.0) Sodium Level 149 MMOL/L (136-145) Potassium Level 4.6 MMOL/L (3.5-5.1) Chloride Level 115 MMOL/L (98-107) Carbon Dioxide Level 25 MMOL/L (21-32) Anion Gap 9 mmol/L (5-15) Blood Urea Nitrogen 50 mg/dL (7-18) Creatinine 1.1 MG/DL (0.55-1.30) Estimat Glomerular Filtration Rate > 60 mL/min (>60) Glucose Level 104 MG/DL (74-106) Calcium Level 9.0 MG/DL (8.5-10.1) Total Bilirubin 1.3 MG/DL (0.2-1.0) Direct Bilirubin 0.6 MG/DL (0.0-0.3) Aspartate Amino Transf (AST/SGOT) 63 U/L (15-37) Alanine Aminotransferase (ALT/SGPT) 78 U/L (12-78) Alkaline Phosphatase 466 U/L (46-116) Total Protein 7.2 G/DL (6.4-8.2) Albumin 2.7 G/DL (3.4-5.0) Globulin 4.5 g/dL Albumin/Globulin Ratio 0.6 (1.0-2.7) Arterial Blood pH 7.507 (7.350-7.450) Arterial Blood Partial Pressure CO2 27.0 mmHg (35.0-45.0) Arterial Blood Partial Pressure O2 57.3 mmHg (75.0-100.0) Arterial Blood HCO3 20.9 mmol/L (22.0-26.0) Arterial Blood Oxygen Saturation 90.2 % (95-100) Arterial Blood Base Excess -1.7 (-2-2) Iglesia Test Positive Objective: WDWN NAD reduced breath sounds bilaterally without rhonchi or wheeze [id number] without MRG NABS nontender GT no CCE reduced LOC Micro: Microbiology Date/Time Source Procedure Growth Status 08/25/20 16:30 Sputum Gram Stain - Final Resulted 08/25/20 16:30 Sputum Culture - Preliminary Gram Negative Jeronimo Resulted 08/23/20 16:00 Nasopharynx SARS-CoV-2 RdRp Gene Assay - Final Complete James Nuñez MD Aug 26, 2020 11:07
[2020-08-26] MEDS ORDERED: Metoclopramide 10mg/2ml Inj IVP PRN (11:15)
[2020-08-26] MEDS: D5 1/2NS w/KCL 10meq 1,000 ML IV SCH (11:35)
--- NOTE | 2020-08-26 12:00 | NUR ---
NURSE NOTES: IV fluid D5 0.45NS w/ KCL 10meq is infusing at 75m/hour. Dr. Zhao is at the nurse's station and spoke with pt's mother over the phone regarding pt's current intubation status and plans for near/future trach replacement. ABGs and chest xray were done this morning. Post ABG results, pt was seen by Dr. Nuñez, and new order noted for vent setting change, RT spoke with MD, and confirmed to change settings to AC12, VT500, FIO2 50%.
--- NOTE | 2020-08-26 12:08 | Diagnostic Imaging Report ---
EXAM: XR Chest, 1 View CLINICAL HISTORY: F/U TECHNIQUE: Frontal view of the chest. COMPARISON: Chest x-rays dated 08/25/20 FINDINGS: Lungs: No significant change in consolidation in the medial lung bases, which may represent atelectasis versus pneumonia. Remainder of the lungs appear clear. Pleural space: Unremarkable. The costophrenic angles are sharp. No visible pneumothorax. Heart: Unremarkable. No cardiomegaly. Mediastinum: Unremarkable. Bones/joints: Unremarkable. Vasculature: Atherosclerotic calcifications are noted within the aortic arch. Tubes, lines and devices: Right arm PICC with catheter tip at the SVC/right atrial junction. Endotracheal tube tip approximately 4 cm above the diana. IMPRESSION: No significant change in consolidation in the medial lung bases, which may represent atelectasis versus pneumonia.
--- NOTE | 2020-08-26 14:00 | NUR ---
NURSE NOTES: Wound photo was uploaded. Cefepime and Vanco infusing IVBP per orders. Pt is slightly tachycardic, however eyes closed/asleep with 100% O2sat. Pt was repositioned for comfort.
--- NOTE | 2020-08-26 14:10 | NUR ---
CASE MANAGEMENT:REVIEW 08/26/20 SI:MRSA AND SERRATIA SEPSIS. ASPIRATION PNA TRACH/VENT/GTUBE 99.3 81 22 126/46 100% ON VENT SUPPORT W/55% FIO2 WBC+39.3 H/H-6.7/20.0 BUN+50 IS: IV VANCOMYCIN Q12 IV CEFEPIME Q12 IV KEPPRA Q12 IV PROTONIX Q12 HEPARIN SQ Q12 : STEP DOWN UNIT DCP: FROM [facility] PLAN: WEANING Addendum: 08/26/20 at 1632 by FRANK SILVAN [facility] ICU STATUS
--- NOTE | 2020-08-26 15:58 | General Progress Note ---
Subjective Allergies: Coded Allergies: ADHESIVE TAPE (Verified Allergy, Unknown, 07/20/20) Uncoded Allergies: TAPE (Allergy, Unknown, 08/07/20) Subjective above noted in ICU intubated back on feeds now tolerating Objective Last 24 Hour Vital Signs Date Time Temp Pulse Resp B/P (MAP) Pulse Ox O2 Delivery O2 Flow Rate FiO2 08/26/20 13:00 117 22 113/46 (68) 97 08/26/20 12:00 Mechanical Ventilator Mechanical Ventilator 08/26/20 12:00 117 16 50 08/26/20 12:00 116 22 114/43 (66) 100 08/26/20 12:00 40 08/26/20 12:00 117 08/26/20 11:00 97 21 108/54 (72) 100 08/26/20 10:39 95 22 103/54 98 08/26/20 10:09 84 22 107/50 100 08/26/20 10:00 77 22 103/54 (70) 100 08/26/20 09:00 80 20 128/52 (77) 100 08/26/20 08:00 81 08/26/20 08:00 Mechanical Ventilator Mechanical Ventilator 08/26/20 08:00 55 08/26/20 08:00 99.3 85 22 126/46 (72) 100 08/26/20 07:16 85 22 55 08/26/20 07:00 88 22 107/50 (69) 100 08/26/20 06:50 22 105/58 Mechanical Ventilator 55 08/26/20 06:50 22 105/58 Mechanical Ventilator 55 08/26/20 06:50 22 105/58 Mechanical Ventilator 55 08/26/20 06:50 22 105/58 Mechanical Ventilator 55 08/26/20 06:35 22 105/58 Mechanical Ventilator 55 08/26/20 06:00 102 21 105/58 (74) 100 08/26/20 05:35 22 98/51 Mechanical Ventilator 55 08/26/20 05:00 107 22 98/51 (67) 95 08/26/20 04:35 22 96/47 Mechanical Ventilator 55 08/26/20 04:00 Mechanical Ventilator Mechanical Ventilator 08/26/20 04:00 55 08/26/20 04:00 98.0 94 22 96/47 (63) 100 08/26/20 03:35 22 123/60 Mechanical Ventilator 55 08/26/20 03:35 102 30 123/60 (81) 100 08/26/20 03:20 101 22 126/72 (90) 100 08/26/20 03:20 22 126/72 Mechanical Ventilator 22 08/26/20 03:04 104 22 55 08/26/20 03:02 101 08/26/20 03:00 101 22 123/53 (76) 100 08/26/20 02:00 22 56/32 Mechanical Ventilator 55 08/26/20 02:00 98 22 56/32 (40) 100 08/26/20 01:55 22 88/60 Mechanical Ventilator 55 08/26/20 01:55 107 25 88/60 (69) 98 08/26/20 01:10 24 101/62 Mechanical Ventilator 55 08/26/20 01:00 94 24 101/62 (75) 100 08/26/20 00:10 30 110/74 Mechanical Ventilator 55 08/26/20 00:00 55 08/26/20 00:00 98.4 105 30 110/74 (86) 100 08/26/20 00:00 Mechanical Ventilator Mechanical Ventilator 08/25/20 23:10 23 127/81 Mechanical Ventilator 60 08/25/20 23:10 98 08/25/20 23:00 97 22 60 08/25/20 23:00 119 23 127/81 (96) 100 08/25/20 22:10 22 112/57 Mechanical Ventilator 21 08/25/20 22:10 110 22 112/57 (75) 100 08/25/20 21:55 123 21 154/69 (97) 100 08/25/20 21:55 21 154/69 Mechanical Ventilator 60 08/25/20 21:40 21 147/74 Mechanical Ventilator 60 08/25/20 21:40 121 21 147/74 (98) 100 08/25/20 21:25 25 110/75 Mechanical Ventilator 50 08/25/20 21:25 119 22 129/90 (103) 100 08/25/20 21:00 91 22 105/57 (73) 100 08/25/20 20:22 97 22 60 08/25/20 20:22 60 08/25/20 20:00 98.4 99 22 94/59 (71) 100 08/25/20 20:00 60 08/25/20 20:00 Mechanical Ventilator Mechanical Ventilator 08/25/20 19:20 107 9/25/20 19:08 129 23 60 08/25/20 16:15 97.2 134 22 136/102 (113) 100 134 08/25/20 16:00 Mechanical Ventilator 08/25/20 16:00 60 Intake and Output 08/25/20 08/26/20 19:00 07:00 Intake Total 240 ml 887.1225 ml Output Total 980 ml 820 ml Balance -740 ml 67.1225 ml Free Water 90 ml IV Total 437.1225 ml Tube Feeding 240 ml 360 ml Output Urine Total 930 ml 770 ml Stool Total 50 ml 50 ml Laboratory Tests 08/25/20 16:38: Arterial Blood pH 7.049*L, Arterial Blood Partial Pressure CO2 84.5*H, Arterial Blood Partial Pressure O2 169.1H, Arterial Blood HCO3 22.8, Arterial Blood Oxygen Saturation 98.4, Arterial Blood Base Excess -7.9L, Iglesia Test Positive 08/25/20 19:27: Arterial Blood pH 7.144*L, Arterial Blood Partial Pressure CO2 63.7*H, Arterial Blood Partial Pressure O2 95.4, Arterial Blood HCO3 21.4L, Arterial Blood Oxygen Saturation 95.0, Arterial Blood Base Excess -7.5L, Iglesia Test Positive 08/25/20 20:30: Arterial Blood pH 7.355, Arterial Blood Partial Pressure CO2 44.2, Arterial Blood Partial Pressure O2 115.1H, Arterial Blood HCO3 24.1, Arterial Blood Oxygen Saturation 97.7, Arterial Blood Base Excess -1.3, Iglesia Test Positive 08/26/20 03:55: White Blood Count 39.3*H, Red Blood Count 2.10L, Hemoglobin 6.7*L, Hematocrit 2 0.0L, Mean Corpuscular Volume 95, Mean Corpuscular Hemoglobin 31.9H, Mean Corpuscular Hemoglobin Concent 33.5, Red Cell Distribution Width 16.1H, Platelet Count 434, Mean Platelet Volume 8.6, Neutrophils (%) (Auto) , Lymphocytes (%) (Auto) , Monocytes (%) (Auto) , Eosinophils (%) (Auto) , Basophils (%) (Auto) , Differential Total Cells Counted 100, Neutrophils % (Manual) 73, Lymphocytes % (Manual) 20, Monocytes % (Manual) 5, Eosinophils % (Manual) 0, Basophils % (Manual) 2, Band Neutrophils 0, Platelet Estimate Adequate, Platelet Morphology Normal, Hypochromasia 4+, Anisocytosis 1+, Spherocytes 2+, Sodium Level 149H, Potassium Level 4.6, Chloride Level 115H, Carbon Dioxide Level 25, Anion Gap 9, Blood Urea Nitrogen 50H, Creatinine 1.1, Estimat Glomerular Filtration Rate > 60, Glucose Level 104, Calcium Level 9.0, Total Bilirubin 1.3H, Direct Bilirubin 0.6H, Aspartate Amino Transf (AST/SGOT) 63H, Alanine Aminotransferase (ALT/SGPT) 78, Alkaline Phosphatase 466H, Total Protein 7.2, Albumin 2.7L, Globulin 4.5, Albumin/Globulin Ratio 0.6L 08/26/20 07:30: Arterial Blood pH 7.507H, Arterial Blood Partial Pressure CO2 27.0L, Arterial Blood Partial Pressure O2 57.3L, Arterial Blood HCO3 20.9L, Arterial Blood O xygen Saturation 90.2L, Arterial Blood Base Excess -1.7, Iglesia Test Positive Height (Feet): 5 Height (Inches): 10.00 Weight (Pounds): 112 Objective Thin AA Man HEENT s/p craniotomy, (+) ETT neck (+) dressing Coarse BS, ronchi, tachypnic RR/tachy abd soft (+) GT no edema Assessment/Plan Status: stable, not improved Assessment/Plan: Assessment - respiratory distress - intubated - recent occluded GT - replaced - abnormal LFT - 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
[2020-08-26] MEDS: Morphine Sulfate 2mg/ml Inj(IV/IM USE ONLY) IVP PRN (17:40)
--- NOTE | 2020-08-26 17:41 | NUR ---
NURSE NOTES: Ativan and Morphine IVP were administered per PRN orders for anxiety and severe pain; pt is noted to be very restless, kicking with legs, and attempting to release restraint/reach for ET tube, grabs bed/sheet and pulls on sheet, facial grimacing.
--- NOTE | 2020-08-26 19:00 | NUR ---
NURSE NOTES: LATE ENTRY Unable to end Propofol infusion on IV spreadsheet-error code "order has already been discontinued" continued to arise. D/C order entered by myself on behalf of Dr Celaya. Infusion stopped per order. Exact total accounted for and wasted with charge nurse ARLYN Ortiz including what remained in IV tubing Attempted to contact pharmacy to rectify situation and spoke with Jarrett who stated pharmacy was unable to help with IV spreadsheets and its not that departments responsibility after conferring with onsite pharmacist.
--- NOTE | 2020-08-26 19:25 | NUR ---
NURSE HAND-OFF REPORT: Latest Vital Signs: Temperature 99.7 , Pulse 116 , B/P 124 /54 , Respiratory Rate 22 , O2 SAT 97 , Mechanical Ventilator, AC 12, VT500, FIO2 65%, 100% O2Sat. Vital Sign Comment: Pt was restless, kicking with legs, hands clenched, and facial grimacing, Morphine and Ativan were administered per PRN orders for severe pain and anxiety. EKG Rhythm: Sinus Tachycardia Rhythm change?: N Notified?: James DAVIES MD Response: Latest Stevens Fall Score: 55 Fall Risk: High Risk Safety Measures: Call light Within Reach, Bed Alarm Zone 2, Side Rails Side Rails x2, Bed position Low and Locked. Fall Precautions: Yellow Socks Yellow Gown Door Sign Patient Fall Education Report given to Jesus STODDARD. Endorsed plan of care.
--- NOTE | 2020-08-26 19:40 | NUR ---
NURSE NOTES: Received report from ARLYN Brower, pt. in bed asleep, breathing even and unlabored, no signs or symptoms of acute cardiac or respiratory distress noted, bd alarm on, side rails up x's 3 and safety brakes engaged, call light within easy reach, safety brakes locked in position, pt. has bilateral soft wrist restraints- both removed- pulses palpable and skin intact- restraints reapplied, pt. has ETT 7.0, at 23cm lip line, AC 12, TV 500, Fio2 at 65% and peep 5- no distress noted, pt. has G tube running Vital AF 1.2 at 30cc- goal is 60cc/hr, Rectal tube intact and draining in gravity, Overton intact and draining to gravity, pt. appears clean and dry, SHER PICC running D5 1/2 NS +10meq KCL at 75cc/hr- IV intact and patent, Safety measures continued, HOB elevated- aspiration precautions noted, all needs attended too, will continue with plan of care. Addendum: 08/26/20 at 2042 by ANGELLA ALBARADO RN RN correction to message above goal is 70cc/hr. Addendum: 08/26/20 at 2326 by ANGELLA ALBARADO RN RN correction to message above no peep.
--- NOTE | 2020-08-26 20:04 | Surgery Progress Note ---
Surgery Progress Note Subjective Additional Comments trach dislodged again not stable. discussed with pcp, pulm and ED physician. trach removed and intubated now in icu ett in place on vent discussed with mother in detail. allow recovery and will consider trach revision Objective Last 24 Hour Vital Signs Date Time Temp Pulse Resp B/P (MAP) Pulse Ox O2 Delivery O2 Flow Rate FiO2 08/26/20 19:50 102 15 65 08/26/20 19:00 116 124/54 (77) 97 08/26/20 18:10 100 22 130/64 100 08/26/20 18:10 99.7 08/26/20 18:00 116 20 132/64 (86) 97 08/26/20 17:40 110 20 114/60 94 08/26/20 17:00 110 20 114/60 (78) 94 08/26/20 16:00 110 08/26/20 16:00 113 08/26/20 16:00 99.7 108 110/53 (72) 100 08/26/20 16:00 50 08/26/20 16:00 Mechanical Ventilator Mechanical Ventilator 08/26/20 15:14 116 17 50 08/26/20 15:00 111 124/54 (77) 94 08/26/20 14:00 114 98/53 (68) 98 08/26/20 13:00 117 22 113/46 (68) 97 08/26/20 12:00 Mechanical Ventilator Mechanical Ventilator 08/26/20 12:00 117 16 50 08/26/20 12:00 99.2 116 22 114/43 (66) 100 08/26/20 12:00 40 08/26/20 12:00 117 08/26/20 11:00 97 21 108/54 (72) 100 08/26/20 10:39 95 22 103/54 98 08/26/20 10:09 84 22 107/50 100 08/26/20 10:00 77 22 103/54 (70) 100 08/26/20 09:00 80 20 128/52 (77) 100 08/26/20 08:00 81 08/26/20 08:00 Mechanical Ventilator Mechanical Ventilator 08/26/20 08:00 55 08/26/20 08:00 99.3 85 22 126/46 (72) 100 08/26/20 07:16 85 22 55 08/26/20 07:00 88 22 107/50 (69) 100 08/26/20 06:50 22 105/58 Mechanical Ventilator 55 08/26/20 06:50 22 105/58 Mechanical Ventilator 55 08/26/20 06:50 22 105/58 Mechanical Ventilator 55 08/26/20 06:50 22 105/58 Mechanical Ventilator 55 08/26/20 06:35 22 105/58 Mechanical Ventilator 55 08/26/20 06:00 102 21 105/58 (74) 100 08/26/20 05:35 22 98/51 Mechanical Ventilator 55 08/26/20 05:00 107 22 98/51 (67) 95 08/26/20 04:35 22 96/47 Mechanical Ventilator 55 08/26/20 04:00 Mechanical Ventilator Mechanical Ventilator 08/26/20 04:00 55 08/26/20 04:00 98.0 94 22 96/47 (63) 100 08/26/20 03:35 22 123/60 Mechanical Ventilator 55 08/26/20 03:35 102 30 123/60 (81) 100 08/26/20 03:20 101 22 126/72 (90) 100 08/26/20 03:20 22 126/72 Mechanical Ventilator 22 08/26/20 03:04 104 22 55 08/26/20 03:02 101 08/26/20 03:00 101 22 123/53 (76) 100 08/26/20 02:00 22 56/32 Mechanical Ventilator 55 08/26/20 02:00 98 22 56/32 (40) 100 08/26/20 01:55 22 88/60 Mechanical Ventilator 55 08/26/20 01:55 107 25 88/60 (69) 98 08/26/20 01:10 24 101/62 Mechanical Ventilator 55 08/26/20 01:00 94 24 101/62 (75) 100 08/26/20 00:10 30 110/74 Mechanical Ventilator 55 08/26/20 00:00 55 08/26/20 00:00 98.4 105 30 110/74 (86) 100 08/26/20 00:00 Mechanical Ventilator Mechanical Ventilator 08/25/20 23:10 23 127/81 Mechanical Ventilator 60 08/25/20 23:10 98 08/25/20 23:00 97 22 60 08/25/20 23:00 119 23 127/81 (96) 100 08/25/20 22:10 22 112/57 Mechanical Ventilator 21 08/25/20 22:10 110 22 112/57 (75) 100 08/25/20 21:55 123 21 154/69 (97) 100 08/25/20 21:55 21 154/69 Mechanical Ventilator 60 08/25/20 21:40 21 147/74 Mechanical Ventilator 60 08/25/20 21:40 121 21 147/74 (98) 100 08/25/20 21:25 25 110/75 Mechanical Ventilator 50 08/25/20 21:25 119 22 129/90 (103) 100 08/25/20 21:00 91 22 105/57 (73) 100 08/25/20 20:22 97 22 60 08/25/20 20:22 60 I&O Intake and Output 08/25/20 08/26/20 19:00 07:00 Intake Total 240 ml 887.1225 ml Output Total 980 ml 820 ml Balance -740 ml 67.1225 ml Free Water 90 ml IV Total 437.1225 ml Tube Feeding 240 ml 360 ml Output Urine Total 930 ml 770 ml Stool Total 50 ml 50 ml Dressing: saturated Cardiovascular: RSR Respiratory: clear Abdomen: soft, non-tender, present bowel sounds Extremities: no edema, no tenderness, no cyanosis Laboratory Tests Test 08/25/20 20:30 08/26/20 03:55 08/26/20 07:30 Arterial Blood pH 7.355 (7.350-7.450) 7.507 (7.350-7.450) Arterial Blood Partial Pressure CO2 44.2 mmHg (35.0-45.0) 27.0 mmHg (35.0-45.0) L Arterial Blood Partial Pressure O2 115.1 mmHg (75.0-100.0) H 57.3 mmHg (75.0-100.0) L Arterial Blood HCO3 24.1 mmol/L (22.0-26.0) 20.9 mmol/L (22.0-26.0) L Arterial Blood Oxygen Saturation 97.7 % (95-100) 90.2 % (95-100) L Arterial Blood Base Excess -1.3 (-2-2) -1.7 (-2-2) Iglesia Test Positive Positive White Blood Count 39.3 K/UL (4.8-10.8) *H Red Blood Count 2.10 M/UL (4.70-6.10) L Hemoglobin 6.7 G/DL (14.2-18.0) *L Hematocrit 20.0 % (42.0-52.0) L Mean Corpuscular Volume 95 FL (80-99) Mean Corpuscular Hemoglobin 31.9 PG (27.0-31.0) H Mean Corpuscular Hemoglobin Concent 33.5 G/DL (32.0-36.0) Red Cell Distribution Width 16.1 % (11.6-14.8) H Platelet Count 434 K/UL (150-450) Mean Platelet Volume 8.6 FL (6.5-10.1) Neutrophils (%) (Auto) % (45.0-75.0) Lymphocytes (%) (Auto) % (20.0-45.0) Monocytes (%) (Auto) % (1.0-10.0) Eosinophils (%) (Auto) % (0.0-3.0) Basophils (%) (Auto) % (0.0-2.0) Differential Total Cells Counted 100 Neutrophils % (Manual) 73 % (45-75) Lymphocytes % (Manual) 20 % (20-45) Monocytes % (Manual) 5 % (1-10) Eosinophils % (Manual) 0 % (0-3) Basophils % (Manual) 2 % (0-2) Band Neutrophils 0 % (0-8) Platelet Estimate Adequate Platelet Morphology Normal Hypochromasia 4+ Anisocytosis 1+ Spherocytes 2+ Sodium Level 149 MMOL/L (136-145) H Potassium Level 4.6 MMOL/L (3.5-5.1) Chloride Level 115 MMOL/L (98-107) H Carbon Dioxide Level 25 MMOL/L (21-32) Anion Gap 9 mmol/L (5-15) Blood Urea Nitrogen 50 mg/dL (7-18) H Creatinine 1.1 MG/DL (0.55-1.30) Estimat Glomerular Filtration Rate > 60 mL/min (>60) Glucose Level 104 MG/DL (74-106) Calcium Level 9.0 MG/DL (8.5-10.1) Total Bilirubin 1.3 MG/DL (0.2-1.0) H Direct Bilirubin 0.6 MG/DL (0.0-0.3) H Aspartate Amino Transf (AST/SGOT) 63 U/L (15-37) H Alanine Aminotransferase (ALT/SGPT) 78 U/L (12-78) Alkaline Phosphatase 466 U/L (46-116) H Total Protein 7.2 G/DL (6.4-8.2) Albumin 2.7 G/DL (3.4-5.0) L Globulin 4.5 g/dL Albumin/Globulin Ratio 0.6 (1.0-2.7) L Plan Problems: (1) Pneumonia (2) Sickle cell anemia (3) Tachycardia (4) Severe sepsis (5) Sickle cell crisis (6) Sepsis Assessment & Plan: 35-year-old male sickle cell multiple comorbidities history of craniotomy trach feeding tube prior port infected removed see prior admission and consult and operative notes. Currently presents with significant leukocytosis fevers hypotension in intensive care unit wound site evaluated unlikely etiology. Trach evaluated may consider changing. LFTs noted elevated. Ultrasound ordered pending results trend labs continue IV antibiotics appreciate infectious disease input will follow with recommendations thank you for let me participate in patient's care KUB and US noted labs reviewed transfuse prbc prn trach change peg changed line out picc placed persistent wbc h/h noted anemia ss better since new trach Shiley [address] secretions manageable Trach replaced at bedside 925 for malpositioning it was identified he does have a false track as well. Will ensure trach is in correct positioning daily every shift trach not stable removed and intubated 08/25 on ett vent will need trach revision discussed with mother and medical teams pulmonary arteries: Evaluation for pulmonary embolus is limited due to breathing motion artifact. No central pulmonary emboli are identified. Aorta: No acute findings. No thoracic aortic aneurysm. Lungs: There are moderately consolidating infiltrates identified in both lower lobes dependently with mild additional patchy infiltrates dependently in both upper lobes. The findings are consistent with bilateral nonspecific pneumonia. Aspiration pneumonia could give this appearance. The infiltrates are only somewhat typical of Covid 19. Confidence is immediate. Pleural space: Unremarkable. No significant effusion. No pneumothorax. Heart: Unremarkable. No cardiomegaly. No significant pericardial effusion. No evidence of RV dysfunction. Bones/joints: No acute fracture. No dislocation. Soft tissues: Unremarkable. Lymph nodes: Unremarkable. No enlarged lymph nodes. Tubes, lines and devices: There is a tracheostomy tube in good position. IMPRESSION: 1. There are moderately consolidating infiltrates identified in both lower lobes dependently with mild additional patchy infiltrates dependently in both upper lobes. The findings are consistent with bilateral nonspecific pneumonia. Aspiration pneumonia could give this appearance. The infiltrates are only somewhat typical of Covid 19. Confidence is immediate. 2. Evaluation for pulmonary embolus is limited due to breathing motion artifact. No central pulmonary emboli are identified. The liver is homogeneous. We cannot identify a normal spleen. There is dense crescentic calcification in the left upper quadrant at the expected location of the spleen. Gallbladder is absent. The pancreas is unremarkable. Adrenals are normal in morphology. There is a small punctate cortical calcification left kidney. No hydronephrosis bilaterally There is a G-tube in place. Gas-filled bowel loops identified throughout the abdomen and pelvis. No discrete transition point or obstruction. Appendix partially visualized. There is some free fluid in the pelvis. There is no free air. There is a mildly prominent lymph nodes noted in the upper to mid retroperitoneum noted of undetermined etiology or significance. Rivera catheter noted in the bladder. The reservoir for the penile prosthesis is identified in the left lower pelvis. There is a right femoral venous catheter in place. Diffuse sclerosis of the bony pelvis and hips noted of undetermined etiology. IMPRESSION: BILATERAL LOWER LOBE PNEUMONIAS. ALSO SOME HAZY INFILTRATES IN THE UPPER LOBES. A NORMAL SPLEEN IS NOT VISUALIZED. THERE IS A DENSE CRESCENTIC CALCIFICATION LEFT UPPER QUADRANT AT THE EXPECTED LOCATION OF THE SPLEEN. 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 PUNCTATE CORTICAL CALCIFICATION LEFT KIDNEY. NO HYDRONEPHROSIS. PROMINENT LYMPH NODES IN THE UPPER TO MID RETROPERITONEUM OF UNDETERMINED ETIOLOGY OR SIGNIFICANCE. G-TUBE, RIVERA CATHETER, RIGHT FEMORAL CATHETER AND PENILE PROSTHESIS NOTED IN PLACE. MILD DIFFUSE SCLEROSIS OF THE BONY PELVIS AND BOTH HIPS OF UNDETERMINED ETIOLOGY. QUESTION HISTORY OF RENAL OSTEODYSTROPHY. There is a large craniectomy defect in the right frontal temporal region. Diffuse age-related volume loss demonstrated. 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 No definite acute infarct seen. There is no hemorrhage, mass effect or shift. Ventricles and cisterns as well as brainstem and posterior fossa appear unremarkable. The sellar region is normal. Sinuses, mastoid air cells and bony calvarium appear intact. IMPRESSION: Large right frontotemporal craniectomy defect. 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 No definite acute intracranial abnormality. (7) Port-A-Cath in place Assessment & Plan: prior removal for infection site okay dressings changed no active infection from wound picc Harman Zhao Aug 26, 2020 20:04
[2020-08-26] MEDS: Dyna-Hex 2% Top Sol 2oz TOPIC SCH (20:18)
--- NOTE | 2020-08-26 22:08 | NUR ---
NURSE NOTES: pt. remains stable- oral care provided- pt. appears to be tolerating current vent settings- no distress noted, HOB elevated- aspiration precautions observed, side rails padded for seizure precautions- no seizure activity noted, will continue to monitor pt. and with plan of care.
--- NOTE | 2020-08-26 23:38 | NUR ---
NURSE NOTES: bed bath given- oral care provided, repositioned and turned pt.-pt. remains stable- no distress noted, will continue to monitor pt. and with plan of care.
[2020-08-27] VITALS (25 sets, daily range): BP systolic 100–139; BP diastolic 46–70
[2020-08-27] MEDS: D5 1/2NS w/KCL 10meq 1,000 ML IV SCH ×2 (00:01→11:55)
--- NOTE | 2020-08-27 00:03 | NUR ---
NURSE NOTES: Pt. in bed appears to be restless, anxious- will Administer Ativan- per eMAR protocol, - VS stable- will continue to monitor pt. and with plan of care.
[2020-08-27] MEDS: LORazepam Inj 2mg/ml 1ml IV PRN ×5 (00:05→20:35)
[2020-08-27] MEDS: Cefepime HCl 2 GM in D5W 55 ML IVPB SCH ×2 (01:09→14:02)
--- NOTE | 2020-08-27 01:10 | NUR ---
NURSE NOTES: Pt is resting in no apparent distress with stable VS- will continue to monitor pt. and with plan of care.
[2020-08-27] MEDS: Vancomycin 1gm/D5W 275ml IVPB SCH ×4 (01:50→14:02)
--- NOTE | 2020-08-27 03:18 | NUR ---
NURSE NOTES: oral care provided, repositioned and turned pt.-pt. remains stable- all needs attended too, will continue to monitor pt. and with plan of care.
[2020-08-27] MEDS: Morphine Sulfate 2mg/ml Inj(IV/IM USE ONLY) IVP PRN ×4 (03:34→20:35)
--- NOTE | 2020-08-27 04:00 | NUR ---
NURSE NOTES: Pt. in bed appears to be restless, anxious- while RT at bedside performing trach care-will Administer Ativan- per eMAR protocol, - VS stable- will continue to monitor pt. and with plan of care.
--- NOTE | 2020-08-27 04:38 | NUR ---
NURSE NOTES: Pt. is resting in no apparent distress with stable VS- HOB elevated - aspiration and skin precautions observed. pt. does not appear restless, Will continue to monitor pt. and with plan of care.
[2020-08-27 05:41] LABS: HEMATOCRIT 19.3 % (42.0-52.0); MEAN CORPUSCULAR VOLUME 93 FL (80-99); PLATELET COUNT 403 K/UL (150-450); RED BLOOD COUNT 2.07 M/UL (4.70-6.10); RED CELL DISTRIBUTION WIDTH 16.9 % (11.6-14.8)
[2020-08-27 05:48] LABS: WHITE BLOOD COUNT 30.8 K/UL (4.8-10.8)
[2020-08-27 05:49] LABS: HEMOGLOBIN 6.5 G/DL (14.2-18.0)
[2020-08-27 06:02] LABS: ALANINE AMINOTRANSFERASE 66 U/L (12-78); ALBUMIN 2.5 G/DL (3.4-5.0); ALBUMIN/GLOBULIN RATIO 0.5 (1.0-2.7); ALKALINE PHOSPHATASE 414 U/L (46-116); ANION GAP 9 mmol/L (5-15); ASPARTATE AMINO TRANSFERASE 55 U/L (15-37); BLOOD UREA NITROGEN 45 mg/dL (7-18); CALCIUM 8.6 MG/DL (8.5-10.1); CARBON DIOXIDE 22 MMOL/L (21-32); CHLORIDE 117 MMOL/L (98-107); CREATININE 1.2 MG/DL (0.55-1.30); SODIUM 148 MMOL/L (136-145)
--- NOTE | 2020-08-27 07:07 | NUR ---
NURSE HAND-OFF REPORT: Latest Vital Signs: Temperature 98.0 , Pulse 103 , B/P 111 /62 , Respiratory Rate 18 , O2 SAT 100 , Mechanical Ventilator, O2 Flow Rate . Vital Sign Comment: EKG Rhythm: Sinus Tachycardia Rhythm change?: N MD Notified?: MD Response: Latest Stevens Fall Score: 55 Fall Risk: High Risk Safety Measures: Call light Within Reach, Bed Alarm Zone 2, Side Rails Side Rails x2, Bed position Low and Locked. Fall Precautions: Yellow Socks Yellow Gown Door Sign Patient Fall Education Report given to Robbie Brower, pt. remains stable and no signs of distress noted- nurse aware to f/u on any abnormal am labs. RN aware to f/u on gram (+) cocci in chains and HGB trending down.
--- NOTE | 2020-08-27 08:00 | NUR ---
NURSE NOTES: Pt was assessed after receiving change of shift report from Jesus STODDARD. Pt is awake, intubated, restless, follows commands, however resistant to care and impulsive. Bilateral soft wrist restraints are in place to prevent self extubation; skin/vascular integrity at restraint site remains within normal limits. ETT 7.0 at 23cm lipline with current vent settings, AC12, VT500, FIO2 55, Peep 0 at 100% O2Sat. ST on machine ii engraver, HR 102, Temp 98.7F axillary, extremities slightly warm to touch with bounding peripheral pulses. IV fluid D5 045NS w/KCL 10meq is infusing at 75ml/hour via right upper arm double lumen PICC line. GT with feeding Vital AF 1.2 is infusing at 40ml/hour, with zero residual. Rectal tube is present, draining, liquid/light brown/yellowish stool. Skin alterations are noted, including sacral DTI/small open pressure ulcer, covered with optifoam dressing. Pt remains on pressure release mattress, HOB at 30degrees, bed locked, in lowest position, three side rails up. Will continue with plan of care.
--- NOTE | 2020-08-27 08:11 | Surgery Progress Note ---
Surgery Progress Note Subjective Additional Comments anemia leukocytosis no n/v more alert and responsive this AM Objective Last 24 Hour Vital Signs Date Time Temp Pulse Resp B/P (MAP) Pulse Ox O2 Delivery O2 Flow Rate FiO2 08/27/20 07:00 103 18 111/62 (78) 100 08/27/20 06:00 105 18 106/53 (70) 100 08/27/20 05:00 108 18 114/52 (72) 99 08/27/20 04:40 111 20 132/69 100 08/27/20 04:10 108 20 147/67 100 08/27/20 04:04 98.0 08/27/20 04:00 Mechanical Ventilator Mechanical Ventilator 08/27/20 04:00 55 08/27/20 04:00 98.0 85 20 139/67 (91) 100 08/27/20 03:32 110 139/70 (93) 08/27/20 03:30 125 20 55 08/27/20 03:12 115 08/27/20 03:00 98 18 100/56 (71) 99 08/27/20 02:00 101 18 109/55 (73) 99 08/27/20 01:00 103 18 125/58 (80) 100 08/27/20 00:35 108 18 121/58 100 08/27/20 00:05 106 18 121/54 100 08/27/20 00:00 55 08/27/20 00:00 Mechanical Ventilator Mechanical Ventilator 08/27/20 00:00 97.8 103 20 123/64 (83) 100 08/26/20 23:47 104 08/26/20 23:25 55 08/26/20 23:17 98 15 55 08/26/20 23:00 101 18 121/54 (76) 100 08/26/20 22:00 101 22 111/50 (70) 100 08/26/20 21:00 103 20 118/59 (78) 100 08/26/20 20:00 Mechanical Ventilator Mechanical Ventilator 08/26/20 20:00 97.6 104 20 127/58 (81) 100 08/26/20 20:00 65 08/26/20 19:50 102 15 65 08/26/20 19:35 109 08/26/20 19:00 116 124/54 (77) 97 08/26/20 18:10 100 22 130/64 100 08/26/20 18:10 99.7 08/26/20 18:00 116 20 132/64 (86) 97 08/26/20 17:40 110 20 114/60 94 08/26/20 17:00 110 20 114/60 (78) 94 08/26/20 16:00 110 08/26/20 16:00 113 08/26/20 16:00 99.7 108 110/53 (72) 100 08/26/20 16:00 50 08/26/20 16:00 Mechanical Ventilator Mechanical Ventilator 08/26/20 15:14 116 17 50 08/26/20 15:00 111 124/54 (77) 94 08/26/20 14:00 114 98/53 (68) 98 08/26/20 13:00 117 22 113/46 (68) 97 08/26/20 12:00 Mechanical Ventilator Mechanical Ventilator 08/26/20 12:00 117 16 50 08/26/20 12:00 99.2 116 22 114/43 (66) 100 08/26/20 12:00 40 08/26/20 12:00 117 08/26/20 11:00 97 21 108/54 (72) 100 08/26/20 10:39 95 22 103/54 98 08/26/20 10:09 84 22 107/50 100 08/26/20 10:00 77 22 103/54 (70) 100 08/26/20 09:00 80 20 128/52 (77) 100 I&O Intake and Output 08/26/20 08/27/20 19:00 07:00 Intake Total 1943.334 ml 2215.416 ml Output Total 720 ml 630 ml Balance 1223.334 ml 1585.416 ml Free Water 120 ml 50 ml IV Total 1403.334 ml 1775.416 ml Tube Feeding 360 ml 390 ml Other 60 ml Output Urine Total 690 ml 580 ml Stool Total 30 ml 50 ml Dressing: dry Wound: clean Cardiovascular: RSR Respiratory: clear Abdomen: soft, non-tender, present bowel sounds Extremities: no edema, no tenderness, no cyanosis Laboratory Tests Test 08/27/20 00:40 08/27/20 04:30 Vancomycin Level Trough 14.4 ug/mL (5.0-12.0) H White Blood Count 30.8 K/UL (4.8-10.8) *H Red Blood Count 2.07 M/UL (4.70-6.10) L Hemoglobin 6.5 G/DL (14.2-18.0) *L Hematocrit 19.3 % (42.0-52.0) L Mean Corpuscular Volume 93 FL (80-99) Mean Corpuscular Hemoglobin 31.2 PG (27.0-31.0) H Mean Corpuscular Hemoglobin Concent 33.4 G/DL (32.0-36.0) Red Cell Distribution Width 16.9 % (11.6-14.8) H Platelet Count 403 K/UL (150-450) Mean Platelet Volume 8.4 FL (6.5-10.1) Neutrophils (%) (Auto) % (45.0-75.0) Lymphocytes (%) (Auto) % (20.0-45.0) Monocytes (%) (Auto) % (1.0-10.0) Eosinophils (%) (Auto) % (0.0-3.0) Basophils (%) (Auto) % (0.0-2.0) Neutrophils % (Manual) Pending Lymphocytes % (Manual) Pending Platelet Estimate Pending Platelet Morphology Pending Sodium Level 148 MMOL/L (136-145) H Potassium Level 4.0 MMOL/L (3.5-5.1) Chloride Level 117 MMOL/L (98-107) H Carbon Dioxide Level 22 MMOL/L (21-32) Anion Gap 9 mmol/L (5-15) Blood Urea Nitrogen 45 mg/dL (7-18) H Creatinine 1.2 MG/DL (0.55-1.30) Estimat Glomerular Filtration Rate > 60 mL/min (>60) Glucose Level 102 MG/DL (74-106) Calcium Level 8.6 MG/DL (8.5-10.1) Total Bilirubin 1.0 MG/DL (0.2-1.0) Aspartate Amino Transf (AST/SGOT) 55 U/L (15-37) H Alanine Aminotransferase (ALT/SGPT) 66 U/L (12-78) Alkaline Phosphatase 414 U/L (46-116) H Total Protein 7.7 G/DL (6.4-8.2) Albumin 2.5 G/DL (3.4-5.0) L Globulin 5.2 g/dL Albumin/Globulin Ratio 0.5 (1.0-2.7) L Plan Problems: (1) Pneumonia (2) Sickle cell anemia (3) Tachycardia (4) Severe sepsis (5) Sickle cell crisis (6) Sepsis Assessment & Plan: 35-year-old male sickle cell multiple comorbidities history of craniotomy trach feeding tube prior port infected removed see prior admission and consult and operative notes. Currently presents with significant leukocytosis fevers hypotension in intensive care unit wound site evaluated unlikely etiology. Trach evaluated may consider changing. LFTs noted elevated. Ultrasound ordered pending results trend labs continue IV antibiotics appreciate infectious disease input will follow with recommendations thank you for let me participate in patient's care KUB and US noted labs reviewed transfuse prbc prn trach change peg changed line out picc placed persistent wbc h/h noted anemia ss better since new trach Shiley [address] secretions manageable Trach replaced at bedside 925 for malpositioning it was identified he does have a false track as well. Will ensure trach is in correct positioning daily every shift trach not stable removed and intubated 08/25 on ett vent will need trach revision discussed with mother and medical teams pulmonary arteries: Evaluation for pulmonary embolus is limited due to breathing motion artifact. No central pulmonary emboli are identified. Aorta: No acute findings. No thoracic aortic aneurysm. Lungs: There are moderately consolidating infiltrates identified in both lower lobes dependently with mild additional patchy infiltrates dependently in both upper lobes. The findings are consistent with bilateral nonspecific pneumonia. Aspiration pneumonia could give this appearance. The infiltrates are only somewhat typical of Covid 19. Confidence is immediate. Pleural space: Unremarkable. No significant effusion. No pneumothorax. Heart: Unremarkable. No cardiomegaly. No significant pericardial effusion. No evidence of RV dysfunction. Bones/joints: No acute fracture. No dislocation. Soft tissues: Unremarkable. Lymph nodes: Unremarkable. No enlarged lymph nodes. Tubes, lines and devices: There is a tracheostomy tube in good position. IMPRESSION: 1. There are moderately consolidating infiltrates identified in both lower lobes dependently with mild additional patchy infiltrates dependently in both upper lobes. The findings are consistent with bilateral nonspecific pneumonia. Aspiration pneumonia could give this appearance. The infiltrates are only somewhat typical of Covid 19. Confidence is immediate. 2. Evaluation for pulmonary embolus is limited due to breathing motion artifact. No central pulmonary emboli are identified. The liver is homogeneous. We cannot identify a normal spleen. There is dense crescentic calcification in the left upper quadrant at the expected location of the spleen. Gallbladder is absent. The pancreas is unremarkable. Adrenals are normal in morphology. There is a small punctate cortical calcification left kidney. No hydronephrosis bilaterally There is a G-tube in place. Gas-filled bowel loops identified throughout the abdomen and pelvis. No discrete transition point or obstruction. Appendix partially visualized. There is some free fluid in the pelvis. There is no free air. There is a mildly prominent lymph nodes noted in the upper to mid retroperitoneum noted of undetermined etiology or significance. Rivera catheter noted in the bladder. The reservoir for the penile prosthesis is identified in the left lower pelvis. There is a right femoral venous catheter in place. Diffuse sclerosis of the bony pelvis and hips noted of undetermined etiology. IMPRESSION: BILATERAL LOWER LOBE PNEUMONIAS. ALSO SOME HAZY INFILTRATES IN THE UPPER LOBES. A NORMAL SPLEEN IS NOT VISUALIZED. THERE IS A DENSE CRESCENTIC CALCIFICATION LEFT UPPER QUADRANT AT THE EXPECTED LOCATION OF THE SPLEEN. 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 PUNCTATE CORTICAL CALCIFICATION LEFT KIDNEY. NO HYDRONEPHROSIS. PROMINENT LYMPH NODES IN THE UPPER TO MID RETROPERITONEUM OF UNDETERMINED ETIOLOGY OR SIGNIFICANCE. G-TUBE, RIVERA CATHETER, RIGHT FEMORAL CATHETER AND PENILE PROSTHESIS NOTED IN PLACE. MILD DIFFUSE SCLEROSIS OF THE BONY PELVIS AND BOTH HIPS OF UNDETERMINED ETIOLOGY. QUESTION HISTORY OF RENAL OSTEODYSTROPHY. There is a large craniectomy defect in the right frontal temporal region. Diffuse age-related volume loss demonstrated. There are old infarcts and encephalomalaci a noted in the frontal lobes and bilateral insular regions. No definite acute infarct seen. There is no hemorrhage, mass effect or shift. Ventricles and cisterns as well as brainstem and posterior fossa appear unremarkable. The sellar region is normal. Sinuses, mastoid air cells and bony calvarium appear intact. IMPRESSION: Large right frontotemporal craniectomy defect. 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 No definite acute intracranial abnormality. (7) Port-A-Cath in place Assessment & Plan: prior removal for infection site okay dressings changed no active infection from wound picc Harman Zhao Aug 27, 2020 08:11
[2020-08-27] MEDS ORDERED: NS 275ml ONE ×3 (08:36→20:51)
[2020-08-27] MEDS ORDERED: D5W 275ml ONE (08:40)
[2020-08-27] MEDS ORDERED: Tubing IV Secondary IV ONE (08:40)
[2020-08-27] MEDS: Heparin 5000 units/ml inj SUBQ SCH ×2 (09:12→20:36)
[2020-08-27] MEDS: levETIRAcetam 1,000mg/NS100ml 100 ML IVPB SCH ×2 (09:12→20:34)
[2020-08-27] MEDS: Pantoprazole Inj IVP SCH ×2 (09:12→20:34)
--- NOTE | 2020-08-27 09:15 | NUR ---
NURSE NOTES: Ativan and Morphine were administered per PRN orders for anxiety and severe pain, as pt is noted to be very restless, and with facial grimacing. AM meds were administered. Pt was repositioned for comfort.
--- NOTE | 2020-08-27 10:25 | Critical Care Progress Note ---
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 Port-A-Cath Status post removal of implanted right chest wall Port-A-Cath Sickle cell crisis Sickle cell anemia Chronic respiratory failure, ventilator dependent, with tracheostomy status Transaminitis Seizure disorder acute pneumonia leukocytosis recurrent sepsis PLAN care noted IV antibiotics per ID respiratory care as is Ventilatory support- vent adjusted and now on volume ventilation SNF meds supportive care suction no wean planned monitor wbc per ID oxygen therapy and titrate prognosis guarded medications/laboratory data/nursing notes reviewed in detail note reviewed and edited care discussed with RN and RT Critical Care - Subjective ROS Limited/Unobtainable: Yes Condition: critical EKG Rhythm: Sinus Rhythm Residuals: minimal Tube Feeding Tolerated: yes I&O: Intake and Output 08/26/20 08/27/20 19:00 07:00 Intake Total 1943.334 ml 2215.416 ml Output Total 720 ml 630 ml Balance 1223.334 ml 1585.416 ml Free Water 120 ml 50 ml IV Total 1403.334 ml 1775.416 ml Tube Feeding 360 ml 390 ml Other 60 ml Output Urine Total 690 ml 580 ml Stool Total 30 ml 50 ml Critical Care - Objective ET-Tube: 7.0 ET Position: 23 Last 24 Hour Vital Signs Date Time Temp Pulse Resp B/P (MAP) Pulse Ox O2 Delivery O2 Flow Rate FiO2 08/27/20 09:44 98.0 08/27/20 09:43 84 14 108/48 100 08/27/20 09:13 91 14 120/58 100 08/27/20 09:00 98.7 92 16 108/48 (68) 90 08/27/20 08:00 91 08/27/20 08:00 90 14 120/58 (78) 100 08/27/20 07:17 102 15 55 08/27/20 07:00 103 18 111/62 (78) 100 08/27/20 06:00 105 18 106/53 (70) 100 08/27/20 05:00 108 18 114/52 (72) 99 08/27/20 04:40 111 20 132/69 100 08/27/20 04:10 108 20 147/67 100 08/27/20 04:04 98.0 08/27/20 04:00 Mechanical Ventilator Mechanical Ventilator 08/27/20 04:00 55 08/27/20 04:00 98.0 85 20 139/67 (91) 100 08/27/20 03:32 110 139/70 (93) 08/27/20 03:30 125 20 55 08/27/20 03:12 115 08/27/20 03:00 98 18 100/56 (71) 99 08/27/20 02:00 101 18 109/55 (73) 99 08/27/20 01:00 103 18 125/58 (80) 100 08/27/20 00:35 108 18 121/58 100 08/27/20 00:05 106 18 121/54 100 08/27/20 00:00 55 08/27/20 00:00 Mechanical Ventilator Mechanical Ventilator 08/27/20 00:00 97.8 103 20 123/64 (83) 100 08/26/20 23:47 104 08/26/20 23:25 55 08/26/20 23:17 98 15 55 08/26/20 23:00 101 18 121/54 (76) 100 08/26/20 22:00 101 22 111/50 (70) 100 08/26/20 21:00 103 20 118/59 (78) 100 08/26/20 20:00 Mechanical Ventilator Mechanical Ventilator 08/26/20 20:00 97.6 104 20 127/58 (81) 100 08/26/20 20:00 65 08/26/20 19:50 102 15 65 08/26/20 19:35 109 08/26/20 19:00 116 124/54 (77) 97 08/26/20 18:10 100 22 130/64 100 08/26/20 18:10 99.7 08/26/20 18:00 116 20 132/64 (86) 97 08/26/20 17:40 110 20 114/60 94 08/26/20 17:00 110 20 114/60 (78) 94 08/26/20 16:00 110 08/26/20 16:00 113 08/26/20 16:00 99.7 108 110/53 (72) 100 08/26/20 16:00 50 08/26/20 16:00 Mechanical Ventilator Mechanical Ventilator 08/26/20 15:14 116 17 50 08/26/20 15:00 111 124/54 (77) 94 08/26/20 14:00 114 98/53 (68) 98 08/26/20 13:00 117 22 113/46 (68) 97 08/26/20 12:00 Mechanical Ventilator Mechanical Ventilator 08/26/20 12:00 117 16 50 08/26/20 12:00 99.2 116 22 114/43 (66) 100 08/26/20 12:00 40 08/26/20 12:00 117 08/26/20 11:00 97 21 108/54 (72) 100 08/26/20 10:39 95 22 103/54 98 Objective: WDWN NAD reduced breath sounds bilaterally without rhonchi or wheeze [id number] without MRG NABS nontender GT no CCE reduced LOC Micro: Microbiology Date/Time Source Procedure Growth Status 08/26/20 03:55 Blood Blood Culture - Preliminary Gram Positive Cocci Resulted 08/25/20 16:30 Sputum Gram Stain - Final Complete 08/25/20 16:30 Sputum Culture - Final Serratia Marcescens Complete James Nuñez MD Aug 27, 2020 10:25
--- NOTE | 2020-08-27 10:49 | Infectious Diseases Prog Note ---
Assessment/Plan Assessment/Plan A: 1. MRSA sepsis. 2. Aspiration pneumonia MRSA, Pseudomonas & Serratia in culture COVID19 X 1: negative. 3. Leukocytosis 4. Sickle cell disease. 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 VDRF 8. Femoral line infection, line removed 9. Serratia pneumonia 10. Bacteremia 11. Tracheostomy malfunction PLAN: 1. Continue Cefepime & Vancomycin 2. will f/u cultures Subjective ROS Limited/Unobtainable: Yes Constitutional: Reports: other - transferred to ICU Respiratory: Reports: other - had tracheostomy leak, ET was removed Neurologic: Reports: other - sedated on restraint Allergies: Coded Allergies: ADHESIVE TAPE (Verified Allergy, Unknown, 07/20/20) Uncoded Allergies: TAPE (Allergy, Unknown, 08/07/20) Objective Last 24 Hour Vital Signs Date Time Temp Pulse Resp B/P (MAP) Pulse Ox O2 Delivery O2 Flow Rate FiO2 08/27/20 09:44 98.0 08/27/20 09:43 84 14 108/48 100 08/27/20 09:13 91 14 120/58 100 08/27/20 09:00 98.7 92 16 108/48 (68) 90 08/27/20 08:00 91 08/27/20 08:00 90 14 120/58 (78) 100 08/27/20 08:00 55 08/27/20 07:17 102 15 55 08/27/20 07:00 103 18 111/62 (78) 100 08/27/20 06:00 105 18 106/53 (70) 100 08/27/20 05:00 108 18 114/52 (72) 99 08/27/20 04:40 111 20 132/69 100 08/27/20 04:10 108 20 147/67 100 08/27/20 04:04 98.0 08/27/20 04:00 Mechanical Ventilator Mechanical Ventilator 08/27/20 04:00 55 08/27/20 04:00 98.0 85 20 139/67 (91) 100 08/27/20 03:32 110 139/70 (93) 08/27/20 03:30 125 20 55 08/27/20 03:12 115 08/27/20 03:00 98 18 100/56 (71) 99 08/27/20 02:00 101 18 109/55 (73) 99 08/27/20 01:00 103 18 125/58 (80) 100 08/27/20 00:35 108 18 121/58 100 08/27/20 00:05 106 18 121/54 100 08/27/20 00:00 55 08/27/20 00:00 Mechanical Ventilator Mechanical Ventilator 08/27/20 00:00 97.8 103 20 123/64 (83) 100 08/26/20 23:47 104 08/26/20 23:25 55 08/26/20 23:17 98 15 55 08/26/20 23:00 101 18 121/54 (76) 100 08/26/20 22:00 101 22 111/50 (70) 100 08/26/20 21:00 103 20 118/59 (78) 100 08/26/20 20:00 Mechanical Ventilator Mechanical Ventilator 08/26/20 20:00 97.6 104 20 127/58 (81) 100 08/26/20 20:00 65 08/26/20 19:50 102 15 65 08/26/20 19:35 109 08/26/20 19:00 116 124/54 (77) 97 08/26/20 18:10 100 22 130/64 100 08/26/20 18:10 99.7 08/26/20 18:00 116 20 132/64 (86) 97 08/26/20 17:40 110 20 114/60 94 08/26/20 17:00 110 20 114/60 (78) 94 08/26/20 16:00 110 08/26/20 16:00 113 08/26/20 16:00 99.7 108 110/53 (72) 100 08/26/20 16:00 50 08/26/20 16:00 Mechanical Ventilator Mechanical Ventilator 08/26/20 15:14 116 17 50 08/26/20 15:00 111 124/54 (77) 94 08/26/20 14:00 114 98/53 (68) 98 08/26/20 13:00 117 22 113/46 (68) 97 08/26/20 12:00 Mechanical Ventilator Mechanical Ventilator 08/26/20 12:00 117 16 50 08/26/20 12:00 99.2 116 22 114/43 (66) 100 08/26/20 12:00 40 08/26/20 12:00 117 08/26/20 11:00 97 21 108/54 (72) 100 Height (Feet): 5 Height (Inches): 10.00 Weight (Pounds): 112 HEENT: other - orally intubated, tracheostomy site is coverd Respiratory/Chest: lungs clear, other - on ventilator Cardiovascular: normal rate, other - PICC line Abdomen: soft, non tender Extremities: no edema Neurologic/Psychiatric: other - sedated Musculoskeletal: atrophy Microbiology Date/Time Source Procedure Growth Status 08/26/20 03:55 Blood Blood Culture - Preliminary Gram Positive Cocci Resulted 08/25/20 16:30 Sputum Gram Stain - Final Complete 08/25/20 16:30 Sputum Culture - Final Serratia Marcescens Complete Laboratory Tests Test 08/27/20 00:40 08/27/20 04:30 Vancomycin Level Trough 14.4 ug/mL (5.0-12.0) H White Blood Count 30.8 K/UL (4.8-10.8) *H Red Blood Count 2.07 M/UL (4.70-6.10) L Hemoglobin 6.5 G/DL (14.2-18.0) *L Hematocrit 19.3 % (42.0-52.0) L Mean Corpuscular Volume 93 FL (80-99) Mean Corpuscular Hemoglobin 31.2 PG (27.0-31.0) H Mean Corpuscular Hemoglobin Concent 33.4 G/DL (32.0-36.0) Red Cell Distribution Width 16.9 % (11.6-14.8) H Platelet Count 403 K/UL (150-450) Mean Platelet Volume 8.4 FL (6.5-10.1) Neutrophils (%) (Auto) % (45.0-75.0) Lymphocytes (%) (Auto) % (20.0-45.0) Monocytes (%) (Auto) % (1.0-10.0) Eosinophils (%) (Auto) % (0.0-3.0) Basophils (%) (Auto) % (0.0-2.0) Differential Total Cells Counted 100 Neutrophils % (Manual) 74 % (45-75) Lymphocytes % (Manual) 8 % (20-45) L Monocytes % (Manual) 9 % (1-10) Eosinophils % (Manual) 8 % (0-3) H Basophils % (Manual) 1 % (0-2) Band Neutrophils 0 % (0-8) Platelet Estimate Adequate Platelet Morphology Normal Hypochromasia 4+ Anisocytosis 1+ Sodium Level 148 MMOL/L (136-145) H Potassium Level 4.0 MMOL/L (3.5-5.1) Chloride Level 117 MMOL/L (98-107) H Carbon Dioxide Level 22 MMOL/L (21-32) Anion Gap 9 mmol/L (5-15) Blood Urea Nitrogen 45 mg/dL (7-18) H Creatinine 1.2 MG/DL (0.55-1.30) Estimat Glomerular Filtration Rate > 60 mL/min (>60) Glucose Level 102 MG/DL (74-106) Calcium Level 8.6 MG/DL (8.5-10.1) Total Bilirubin 1.0 MG/DL (0.2-1.0) Aspartate Amino Transf (AST/SGOT) 55 U/L (15-37) H Alanine Aminotransferase (ALT/SGPT) 66 U/L (12-78) Alkaline Phosphatase 414 U/L (46-116) H Total Protein 7.7 G/DL (6.4-8.2) Albumin 2.5 G/DL (3.4-5.0) L Globulin 5.2 g/dL Albumin/Globulin Ratio 0.5 (1.0-2.7) L Current Medications Medications (Trade) Dose Ordered Sig/Piedad Route PRN Reason Start Time Stop Time Status Last Admin Dose Admin Acetaminophen (Tylenol) 650 mg Q4H PRN GT Mild Pain (Pain Scale 1-3) 08/24/20 13:00 09/23/20 12:59 08/25/20 11:33 Acetaminophen (Tylenol) 650 mg Q6H PRN GT Temp >100.5 08/10/20 20:20 09/09/20 20:19 08/26/20 05:58 Cefepime HCl 2 gm/ Dextrose 55 ml @ 110 mls/hr Q12H IVPB 08/25/20 14:00 09/01/20 13:59 08/27/20 01:09 Chlorhexidine Gluconate (Christy-Hex 2%) 1 applic DAILY@1999 TOPIC 08/14/20 20:00 11/12/20 19:59 08/26/20 20:18 Dextrose/ Electrolytes 1,000 ml @ 75 mls/hr [id number] IV 08/26/20 11:00 09/25/20 10:59 08/27/20 00:01 Folic Acid (Folate) 1 mg DAILY GT 08/11/20 09:00 09/07/20 08:59 08/27/20 09:11 Heparin Sodium (Porcine) (Heparin 5000 units/ml) 5,000 units EVERY 12 HOURS SUBQ 08/10/20 21:00 09/22/20 20:59 08/27/20 09:12 Levetiracetam 100 ml @ 400 mls/hr Q12HR IVPB 08/14/20 10:00 11/12/20 09:59 08/27/20 09:12 Lorazepam (Ativan 2mg/ml 1ml) 1 mg Q4H PRN IV For Anxiety 08/26/20 07:00 09/02/20 06:59 08/27/20 09:13 Metoclopramide HCl (Reglan) 10 mg Q8H PRN IVP Nausea & Vomiting 08/26/20 11:15 09/25/20 11:14 Morphine Sulfate (Morphine Sulfate) 1 mg Q4HR PRN IVP Severe Pain 08/26/20 07:00 09/02/20 06:59 08/27/20 09:14 Multivitamins (Multivitamins) 1 tab DAILY GT 08/11/20 09:00 09/07/20 08:59 08/27/20 09:11 Pantoprazole (Protonix) 40 mg EVERY 12 HOURS IVP 08/13/20 22:15 09/12/20 22:14 08/27/20 09:12 Vancomycin HCl (Vanco pharmacy to dose) 1 ea DAILY PRN MISC Per rx protocol 08/25/20 11:15 09/24/20 11:14 Vancomycin HCl 1 gm/Dextrose 275 ml @ 183.708 mls/hr Q12H IVPB 08/27/20 02:00 09/01/20 01:59 08/27/20 01:50 Wyatt Kemp MD Aug 27, 2020 10:49
--- NOTE | 2020-08-27 11:00 | NUR ---
NURSE NOTES: Dr. Celaya is at the nurse's station and was updated on pt's current status. aware of AM lab results, including Hbg=6.5. No new orders were received at this time.
--- NOTE | 2020-08-27 12:00 | NUR ---
NURSE NOTES: Pt is resting with stable VS. Dr. Castillo was at the nurse's station and aware of Hgb=6.5. Per MD, to repeat CBC/CMP in the AM, however no additional orders at this time. Pt is resting with stable VS. Pt was repositioned for comfort.
--- NOTE | 2020-08-27 14:00 | NUR ---
NURSE NOTES: Pt was administered Morphine and Ativan per PRN orders for severe pain and anxiety, as pt is noted to be very restless, with facial grimacing, and attempting to reach for ET/tube. VS remain stable. Pt was repositioned for comfort.
--- NOTE | 2020-08-27 14:22 | Hematology/Onc Progress Note ---
Assessment/Plan Assessment/Plan Assessment and Recs # Sickle cell crisis noted upon admission, with hx of sickle cell anemia --> hgb 6.5-->7.1-->6.6->>>>7.3-->7.1 -->6.7-->6.5-->6.8->7-->7.2->6.5 --> 1 unit prbc on 07/23, 1 unit 08/27 --> ivfs have been started --> anemia panel ordered, with elev ferritin --> recommend to consider hydrea when discharged if stable --> likely does have mild hemolysis --> hgb electrophoresis show evidence of sickle cell trait --> FLOW CYTOMETRY IS NEGATIVE # Hyperferritinemia with elevated ferritin that was noted --> likely consider exjade once discharged though at this time not limiting --> ferritin can >2000 with recurrent transfusions --> trend over time, for EOD observe # Leukocytosis poa with Severe sepsis due to line infection --> abx: vancomycin-->cefepime/colistin-->cefepime --> wbc 25-->31-->29-->25-->37--->31 --> FLOW CYTOMETRY NEG # Respiratory failure s/p Ventilator dependent --> as per pulm, vent adjustment # Port-A-Cath in place --> s/p abx --> s/p permacath removal # Transaminitis -->liver function elevated --> per gi # Dt ppx heparin sq The timing of this note does not necessarily reflect the time of the patient was seen. Greatly appreciate consultation. Subjective Constitutional: Denies: no symptoms, chills, fever, malaise, weakness, other HEENT: Denies: no symptoms, eye pain, blurred vision, tearing, double vision, ear pain, ear discharge, nose pain, nose congestion, throat pain, throat swelling, mouth pain, mouth swelling, other Cardiovascular: Denies: no symptoms, chest pain, edema, irregular heart rate, lightheadedness, palpitations, syncope, other Respiratory: Denies: no symptoms, cough, shortness of breath, SOB with excertion, SOB at rest, sputum, wheezing, other Gastrointestinal/Abdominal: Denies: no symptoms, abdomen distended, abdominal pain, black stools, tarry stools, blood in stool, constipated, diarrhea, difficulty swallowing, nausea, poor appetite, poor fluid intake, rectal bleeding , vomiting, other Neurologic/Psychiatric: Denies: no symptoms, anxiety, depressed, emotional problems, headache, numbness, paresthesia, pre-existing deficit, seizure, tingling, tremors, weakness, other Endocrine: Denies: no symptoms, excessive sweating, flushing, intolerance to cold, intolerance to heat, increased hunger, increased thirst, increased urine, unexplained weight gain, unexplained weight loss, other Allergies: Coded Allergies: ADHESIVE TAPE (Verified Allergy, Unknown, 07/20/20) Uncoded Allergies: TAPE (Allergy, Unknown, 08/07/20) Subjective 08/19 no acute events, vent, iv abx, labs reviewed 08/20 labs reviewed, seen by Dr. Celaya and dw Rn, holding off prbc 08/21 remains on abx with persistently elev wbc, on abx broad spectrum 08/22 labs reviewed, no bleeding, meds noted, wbc still 25k, hgb 6.8, transfuse pr 08/23 cbc has been ordered, meds noted, on cefepime, have dw path is flow back 08/24 hob is elevated, labs noted, hgb 7, consider for transfusions soon, wbc is better 08/25 labs are reviewed, wbc is worse, flow was done and is negative 08/27 is in the icu, labs noted, on cefepime and vanc, wbc 31 Objective Objective Current Medications Medications (Trade) Dose Ordered Sig/Piedad Route PRN Reason Start Time Stop Time Status Last Admin Dose Admin Acetaminophen (Tylenol) 650 mg Q4H PRN GT Mild Pain (Pain Scale 1-3) 08/24/20 13:00 09/23/20 12:59 08/25/20 11:33 Acetaminophen (Tylenol) 650 mg Q6H PRN GT Temp >100.5 08/10/20 20:20 09/09/20 20:19 08/26/20 05:58 Cefepime HCl 2 gm/ Dextrose 55 ml @ 110 mls/hr Q12H IVPB 08/25/20 14:00 09/01/20 13:59 08/27/20 14:02 Chlorhexidine Gluconate (Christy-Hex 2%) 1 applic DAILY@2000 TOPIC 08/14/20 20:00 11/12/20 19:59 08/26/20 20:18 Dextrose/ Electrolytes 1,000 ml @ 75 mls/hr [id number] IV 08/26/20 11:00 09/25/20 10:59 08/27/20 11:55 Folic Acid (Folate) 1 mg DAILY GT 08/11/20 09:00 09/07/20 08:59 08/27/20 09:11 Heparin Sodium (Porcine) (Heparin 5000 units/ml) 5,000 units EVERY 12 HOURS SUBQ 08/10/20 21:00 09/22/20 20:59 08/27/20 09:12 Levetiracetam 100 ml @ 400 mls/hr Q12HR IVPB 08/14/20 10:00 11/12/20 09:59 08/27/20 09:12 Lorazepam (Ativan 2mg/ml 1ml) 1 mg Q4H PRN IV For Anxiety 08/26/20 07:00 09/02/20 06:59 08/27/20 13:57 Metoclopramide HCl (Reglan) 10 mg Q8H PRN IVP Nausea & Vomiting 08/26/20 11:15 09/25/20 11:14 Morphine Sulfate (Morphine Sulfate) 1 mg Q4HR PRN IVP Severe Pain 08/26/20 07:00 09/02/20 06:59 08/27/20 13:58 Multivitamins (Multivitamins) 1 tab DAILY GT 08/11/20 09:00 09/07/20 08:59 08/27/20 09:11 Pantoprazole (Protonix) 40 mg EVERY 12 HOURS IVP 08/13/20 22:15 09/12/20 22:14 08/27/20 09:12 Vancomycin HCl (Vanco pharmacy to dose) 1 ea DAILY PRN MISC Per rx protocol 08/25/20 11:15 09/24/20 11:14 Vancomycin HCl 1 gm/Dextrose 275 ml @ 183.708 mls/hr Q12H IVPB 08/27/20 02:00 09/01/20 01:59 08/27/20 14:02 Last 24 Hour Vital Signs Date Time Temp Pulse Resp B/P (MAP) Pulse Ox O2 Delivery O2 Flow Rate FiO2 08/27/20 13:57 81 14 111/51 100 08/27/20 13:00 80 14 111/51 (71) 100 08/27/20 12:09 77 13 114/46 (68) 100 08/27/20 12:00 Mechanical Ventilator Mechanical Ventilator 08/27/20 12:00 55 08/27/20 12:00 72 08/27/20 11:13 95 15 55 08/27/20 11:00 79 13 117/47 (70) 100 08/27/20 10:00 88 13 117/56 (76) 100 08/27/20 09:44 98.0 08/27/20 09:43 84 14 108/48 100 08/27/20 09:13 91 14 120/58 100 08/27/20 09:00 98.7 92 16 108/48 (68) 90 08/27/20 08:00 91 08/27/20 08:00 Mechanical Ventilator Mechanical Ventilator 08/27/20 08:00 90 14 120/58 (78) 100 08/27/20 08:00 55 08/27/20 07:17 102 15 55 08/27/20 07:00 103 18 111/62 (78) 100 08/27/20 06:00 105 18 106/53 (70) 100 08/27/20 05:00 108 18 114/52 (72) 99 08/27/20 04:40 111 20 132/69 100 08/27/20 04:10 108 20 147/67 100 08/27/20 04:04 98.0 08/27/20 04:00 Mechanical Ventilator Mechanical Ventilator 08/27/20 04:00 55 08/27/20 04:00 98.0 85 20 139/67 (91) 100 08/27/20 03:32 110 139/70 (93) 08/27/20 03:30 125 20 55 08/27/20 03:12 115 08/27/20 03:00 98 18 100/56 (71) 99 08/27/20 02:00 101 18 109/55 (73) 99 08/27/20 01:00 103 18 125/58 (80) 100 08/27/20 00:35 108 18 121/58 100 08/27/20 00:05 106 18 121/54 100 08/27/20 00:00 55 08/27/20 00:00 Mechanical Ventilator Mechanical Ventilator 08/27/20 00:00 97.8 103 20 123/64 (83) 100 08/26/20 23:47 104 08/26/20 23:25 55 08/26/20 23:17 98 15 55 08/26/20 23:00 101 18 121/54 (76) 100 08/26/20 22:00 101 22 111/50 (70) 100 08/26/20 21:00 103 20 118/59 (78) 100 08/26/20 20:00 Mechanical Ventilator Mechanical Ventilator 08/26/20 20:00 97.6 104 20 127/58 (81) 100 08/26/20 20:00 65 08/26/20 19:50 102 15 65 08/26/20 19:35 109 08/26/20 19:00 116 124/54 (77) 97 08/26/20 18:10 100 22 130/64 100 08/26/20 18:10 99.7 08/26/20 18:00 116 20 132/64 (86) 97 08/26/20 17:40 110 20 114/60 94 08/26/20 17:00 110 20 114/60 (78) 94 08/26/20 16:00 110 08/26/20 16:00 113 08/26/20 16:00 99.7 108 110/53 (72) 100 08/26/20 16:00 50 08/26/20 16:00 Mechanical Ventilator Mechanical Ventilator 08/26/20 15:14 116 17 50 08/26/20 15:00 111 124/54 (77) 94 08/26/20 14:00 114 98/53 (68) 98 08/26/20 13:00 117 22 113/46 (68) 97 08/26/20 12:00 Mechanical Ventilator Mechanical Ventilator 08/26/20 12:00 117 16 50 08/26/20 12:00 99.2 116 22 114/43 (66) 100 08/26/20 12:00 40 08/26/20 12:00 117 08/26/20 11:00 97 21 108/54 (72) 100 08/26/20 10:39 95 22 103/54 98 08/26/20 10:09 84 22 107/50 100 08/26/20 10:00 77 22 103/54 (70) 100 9/26/20 09:00 80 20 128/52 (77) 100 08/26/20 08:00 81 08/26/20 08:00 Mechanical Ventilator Mechanical Ventilator 08/26/20 08:00 55 08/26/20 08:00 99.3 85 22 126/46 (72) 100 08/26/20 07:16 85 22 55 08/26/20 07:00 88 22 107/50 (69) 100 08/26/20 06:50 22 105/58 Mechanical Ventilator 55 08/26/20 06:50 22 105/58 Mechanical Ventilator 55 08/26/20 06:50 22 105/58 Mechanical Ventilator 55 08/26/20 06:50 22 105/58 Mechanical Ventilator 55 08/26/20 06:35 22 105/58 Mechanical Ventilator 55 08/26/20 06:00 102 21 105/58 (74) 100 08/26/20 05:35 22 98/51 Mechanical Ventilator 55 08/26/20 05:00 107 22 98/51 (67) 95 08/26/20 04:35 22 96/47 Mechanical Ventilator 55 08/26/20 04:00 Mechanical Ventilator Mechanical Ventilator 08/26/20 04:00 55 08/26/20 04:00 98.0 94 22 96/47 (63) 100 08/26/20 03:35 22 123/60 Mechanical Ventilator 55 08/26/20 03:35 102 30 123/60 (81) 100 08/26/20 03:20 101 22 126/72 (90) 100 08/26/20 03:20 22 126/72 Mechanical Ventilator 22 08/26/20 03:04 104 22 55 08/26/20 03:02 101 08/26/20 03:00 101 22 123/53 (76) 100 08/26/20 02:00 22 56/32 Mechanical Ventilator 55 08/26/20 02:00 98 22 56/32 (40) 100 08/26/20 01:55 22 88/60 Mechanical Ventilator 55 08/26/20 01:55 107 25 88/60 (69) 98 08/26/20 01:10 24 101/62 Mechanical Ventilator 55 08/26/20 01:00 94 24 101/62 (75) 100 08/26/20 00:10 30 110/74 Mechanical Ventilator 55 08/26/20 00:00 55 08/26/20 00:00 98.4 105 30 110/74 (86) 100 08/26/20 00:00 Mechanical Ventilator Mechanical Ventilator 08/25/20 23:10 23 127/81 Mechanical Ventilator 60 08/25/20 23:10 98 08/25/20 23:00 97 22 60 08/25/20 23:00 119 23 127/81 (96) 100 08/25/20 22:10 22 112/57 Mechanical Ventilator 21 08/25/20 22:10 110 22 112/57 (75) 100 08/25/20 21:55 123 21 154/69 (97) 100 08/25/20 21:55 21 154/69 Mechanical Ventilator 60 08/25/20 21:40 21 147/74 Mechanical Ventilator 60 08/25/20 21:40 121 21 147/74 (98) 100 08/25/20 21:25 25 110/75 Mechanical Ventilator 50 08/25/20 21:25 119 22 129/90 (103) 100 08/25/20 21:00 91 22 105/57 (73) 100 08/25/20 20:22 97 22 60 08/25/20 20:22 60 08/25/20 20:00 98.4 99 22 94/59 (71) 100 08/25/20 20:00 60 08/25/20 20:00 Mechanical Ventilator Mechanical Ventilator 08/25/20 19:20 107 08/25/20 19:08 129 23 60 08/25/20 16:15 97.2 134 22 136/102 (113) 100 134 08/25/20 16:00 Mechanical Ventilator 08/25/20 16:00 60 08/25/20 15:48 100 22 60 08/25/20 15:25 124 08/25/20 15:11 96.6 Intake and Output 08/26/20 08/27/20 19:00 07:00 Intake Total 1943.334 ml 2215.416 ml Output Total 720 ml 630 ml Balance 1223.334 ml 1585.416 ml Free Water 120 ml 50 ml IV Total 1403.334 ml 1775.416 ml Tube Feeding 360 ml 390 ml Other 60 ml Output Urine Total 690 ml 580 ml Stool Total 30 ml 50 ml Labs Test 08/25/20 04:00 08/25/20 14:23 08/25/20 16:38 08/25/20 19:27 White Blood Count 37.1 K/UL (4.8-10.8) Red Blood Count 2.31 M/UL (4.70-6.10) Hemoglobin 7.2 G/DL (14.2-18.0) Hematocrit 22.1 % (42.0-52.0) Mean Corpuscular Volume 96 FL (80-99) Mean Corpuscular Hemoglobin 31.3 PG (27.0-31.0) Mean Corpuscular Hemoglobin Concent 32.8 G/DL (32.0-36.0) Red Cell Distribution Width 17.0 % (11.6-14.8) Platelet Count 495 K/UL (150-450) Mean Platelet Volume 8.6 FL (6.5-10.1) Neutrophils (%) (Auto) % (45.0-75.0) Lymphocytes (%) (Auto) % (20.0-45.0) Monocytes (%) (Auto) % (1.0-10.0) Eosinophils (%) (Auto) % (0.0-3.0) Basophils (%) (Auto) % (0.0-2.0) Differential Total Cells Counted 100 Neutrophils % (Manual) 82 % (45-75) Lymphocytes % (Manual) 14 % (20-45) Monocytes % (Manual) 3 % (1-10) Eosinophils % (Manual) 1 % (0-3) Basophils % (Manual) 0 % (0-2) Band Neutrophils 0 % (0-8) Platelet Estimate Adequate Platelet Morphology Normal Hypochromasia 3+ Anisocytosis 1+ Spherocytes 1+ Iron Level 153 ug/dL (50-175) Total Iron Binding Capacity 208 ug/dL (250-450) Percent Iron Saturation 74 % (15-50) Unsaturated Iron Binding 55 ug/dL (112-346) Ferritin 645 NG/ML (8-388) Anti-Nuclear Antibody Screen Negative (Negative) SmRNP Antibodies <0.2 AI (0.0-0.9) Troponin I 0.000 ng/mL (0.000-0.056) Triglycerides Level 59 MG/DL (30-150) Arterial Blood pH 7.049 (7.350-7.450) 7.144 (7.350-7.450) Arterial Blood Partial Pressure CO2 84.5 mmHg (35.0-45.0) 63.7 mmHg (35.0-45.0) Arterial Blood Partial Pressure O2 169.1 mmHg (75.0-100.0) 95.4 mmHg (75.0-100.0) Arterial Blood HCO3 22.8 mmol/L (22.0-26.0) 21.4 mmol/L (22.0-26.0) Arterial Blood Oxygen Saturation 98.4 % (95-100) 95.0 % (95-100) Arterial Blood Base Excess -7.9 (-2-2) -7.5 (-2-2) Iglesia Test Positive Positive Test 08/25/20 20:30 08/26/20 03:55 08/26/20 07:30 08/27/20 00:40 Arterial Blood pH 7.355 (7.350-7.450) 7.507 (7.350-7.450) Arterial Blood Partial Pressure CO2 44.2 mmHg (35.0-45.0) 27.0 mmHg (35.0-45.0) Arterial Blood Partial Pressure O2 115.1 mmHg (75.0-100.0) 57.3 mmHg (75.0-100.0) Arterial Blood HCO3 24.1 mmol/L (22.0-26.0) 20.9 mmol/L (22.0-26.0) Arterial Blood Oxygen Saturation 97.7 % (95-100) 90.2 % (95-100) Arterial Blood Base Excess -1.3 (-2-2) -1.7 (-2-2) Iglesia Test Positive Positive White Blood Count 39.3 K/UL (4.8-10.8) Red Blood Count 2.10 M/UL (4.70-6.10) Hemoglobin 6.7 G/DL (14.2-18.0) Hematocrit 20.0 % (42.0-52.0) Mean Corpuscular Volume 95 FL (80-99) Mean Corpuscular Hemoglobin 31.9 PG (27.0-31.0) Mean Corpuscular Hemoglobin Concent 33.5 G/DL (32.0-36.0) Red Cell Distribution Width 16.1 % (11.6-14.8) Platelet Count 434 K/UL (150-450) Mean Platelet Volume 8.6 FL (6.5-10.1) Neutrophils (%) (Auto) % (45.0-75.0) Lymphocytes (%) (Auto) % (20.0-45.0) Monocytes (%) (Auto) % (1.0-10.0) Eosinophils (%) (Auto) % (0.0-3.0) Basophils (%) (Auto) % (0.0-2.0) Differential Total Cells Counted 100 Neutrophils % (Manual) 73 % (45-75) Lymphocytes % (Manual) 20 % (20-45) Monocytes % (Manual) 5 % (1-10) Eosinophils % (Manual) 0 % (0-3) Basophils % (Manual) 2 % (0-2) Band Neutrophils 0 % (0-8) Platelet Estimate Adequate Platelet Morphology Normal Hypochromasia 4+ Anisocytosis 1+ Spherocytes 2+ Sodium Level 149 MMOL/L (136-145) Potassium Level 4.6 MMOL/L (3.5-5.1) Chloride Level 115 MMOL/L (98-107) Carbon Dioxide Level 25 MMOL/L (21-32) Anion Gap 9 mmol/L (5-15) Blood Urea Nitrogen 50 mg/dL (7-18) Creatinine 1.1 MG/DL (0.55-1.30) Estimat Glomerular Filtration Rate > 60 mL/min (>60) Glucose Level 104 MG/DL (74-106) Calcium Level 9.0 MG/DL (8.5-10.1) Total Bilirubin 1.3 MG/DL (0.2-1.0) Direct Bilirubin 0.6 MG/DL (0.0-0.3) Aspartate Amino Transf (AST/SGOT) 63 U/L (15-37) Alanine Aminotransferase (ALT/SGPT) 78 U/L (12-78) Alkaline Phosphatase 466 U/L (46-116) Total Protein 7.2 G/DL (6.4-8.2) Albumin 2.7 G/DL (3.4-5.0) Globulin 4.5 g/dL Albumin/Globulin Ratio 0.6 (1.0-2.7) Vancomycin Level Trough 14.4 ug/mL (5.0-12.0) Test 08/27/20 04:30 White Blood Count 30.8 K/UL (4.8-10.8) Red Blood Count 2.07 M/UL (4.70-6.10) Hemoglobin 6.5 G/DL (14.2-18.0) Hematocrit 19.3 % (42.0-52.0) Mean Corpuscular Volume 93 FL (80-99) Mean Corpuscular Hemoglobin 31.2 PG (27.0-31.0) Mean Corpuscular Hemoglobin Concent 33.4 G/DL (32.0-36.0) Red Cell Distribution Width 16.9 % (11.6-14.8) Platelet Count 403 K/UL (150-450) Mean Platelet Volume 8.4 FL (6.5-10.1) Neutrophils (%) (Auto) % (45.0-75.0) Lymphocytes (%) (Auto) % (20.0-45.0) Monocytes (%) (Auto) % (1.0-10.0) Eosinophils (%) (Auto) % (0.0-3.0) Basophils (%) (Auto) % (0.0-2.0) Differential Total Cells Counted 100 Neutrophils % (Manual) 74 % (45-75) Lymphocytes % (Manual) 8 % (20-45) Monocytes % (Manual) 9 % (1-10) Eosinophils % (Manual) 8 % (0-3) Basophils % (Manual) 1 % (0-2) Band Neutrophils 0 % (0-8) Platelet Estimate Adequate Platelet Morphology Normal Hypochromasia 4+ Anisocytosis 1+ Sodium Level 148 MMOL/L (136-145) Potassium Level 4.0 MMOL/L (3.5-5.1) Chloride Level 117 MMOL/L (98-107) Carbon Dioxide Level 22 MMOL/L (21-32) Anion Gap 9 mmol/L (5-15) Blood Urea Nitrogen 45 mg/dL (7-18) Creatinine 1.2 MG/DL (0.55-1.30) Estimat Glomerular Filtration Rate > 60 mL/min (>60) Glucose Level 102 MG/DL (74-106) Calcium Level 8.6 MG/DL (8.5-10.1) Total Bilirubin 1.0 MG/DL (0.2-1.0) Aspartate Amino Transf (AST/SGOT) 55 U/L (15-37) Alanine Aminotransferase (ALT/SGPT) 66 U/L (12-78) Alkaline Phosphatase 414 U/L (46-116) Total Protein 7.7 G/DL (6.4-8.2) Albumin 2.5 G/DL (3.4-5.0) Globulin 5.2 g/dL Albumin/Globulin Ratio 0.5 (1.0-2.7) Height (Feet): 5 Height (Inches): 10.00 Weight (Pounds): 112 Objective Physical Exam General: alert, Chronically Ill Head: other - Large right-sided craniotomy defect well-heale ++, tracheotomy/vent Respiratory: crackles, rales, other - right side chest wall tenderness Cardiovascular: tachycardia Gastrointestinal: normal inspection, soft, gt++ Musk: decreased range of motion, other - atrophic, motor weakness Neurologic: alert, motor weakness, other - left hemineglect Psychiatric: normal inspection Skin: no rash : garcia++ Roshan Castillo MD Aug 27, 2020 14:22
--- NOTE | 2020-08-27 14:54 | Cardiology Report ---
APPROVED REPORT EKG Measurement Heart [id number] [id number] <Conclusion> Suspect arm lead reversal, interpretation assumes no reversal Sinus tachycardia Rightward axis Pulmonary disease pattern Nonspecific ST abnormality Abnormal ECG
--- NOTE | 2020-08-27 15:05 | NUR ---
CASE MANAGEMENT:REVIEW 08/27/20 SI:MRSA AND SERRATIA SEPSIS. ASPIRATION PNA TRACH/VENT/GTUBE 98.0 88 13 117/56 100% ON VENT SUPPORT W/55% FIO2 WBC+30.8 H/H-6.5/19.3 BUN+45 IS: IV VANCOMYCIN Q12 IV CEFEPIME Q12 IVF@75/HR IV KEPPRA Q12 IV PROTONIX Q12 HEPARIN SQ Q : ICU STATUS DCP: FROM [facility]: F/U ON BLOOD CX ~ GROWING GRAM POSITIVE COCCI
--- NOTE | 2020-08-27 16:15 | NUR ---
NURSE NOTES: GT feeding bag was replaced, pt is tolerating feeding with zero residual, rate is now increased to 50ml/hr. NSR per cardiac rn. Pt remains afebrile. O2Sat 100%, with no respiratory distress, while maintained on same vent settings from this morning. Pt was repositioned for comfort.
--- NOTE | 2020-08-27 17:43 | General Progress Note ---
Subjective Allergies: Coded Allergies: ADHESIVE TAPE (Verified Allergy, Unknown, 07/20/20) Uncoded Allergies: TAPE (Allergy, Unknown, 08/07/20) Subjective In ICU calm and comfortable tolerating feeds Objective Last 24 Hour Vital Signs Date Time Temp Pulse Resp B/P (MAP) Pulse Ox O2 Delivery O2 Flow Rate FiO2 08/27/20 17:00 80 13 123/51 (75) 100 08/27/20 16:00 55 08/27/20 16:00 67 15 110/52 (71) 100 08/27/20 16:00 73 08/27/20 16:00 Mechanical Ventilator Mechanical Ventilator 08/27/20 15:20 84 14 55 08/27/20 15:00 83 13 127/54 (78) 100 08/27/20 14:28 98.0 08/27/20 14:27 80 14 115/52 100 08/27/20 14:00 79 13 115/52 (73) 100 08/27/20 13:57 81 14 111/51 100 08/27/20 13:00 80 14 111/51 (71) 100 08/27/20 12:09 77 13 114/46 (68) 100 08/27/20 12:00 Mechanical Ventilator Mechanical Ventilator 08/27/20 12:00 55 08/27/20 12:00 72 08/27/20 11:13 95 15 55 08/27/20 11:00 79 13 117/47 (70) 100 08/27/20 10:00 88 13 117/56 (76) 100 08/27/20 09:44 98.0 08/27/20 09:43 84 14 108/48 100 08/27/20 09:13 91 14 120/58 100 08/27/20 09:00 98.7 92 16 108/48 (68) 90 08/27/20 08:00 91 08/27/20 08:00 Mechanical Ventilator Mechanical Ventilator 08/27/20 08:00 90 14 120/58 (78) 100 08/27/20 08:00 55 08/27/20 07:17 102 15 55 08/27/20 07:00 103 18 111/62 (78) 100 08/27/20 06:00 105 18 106/53 (70) 100 08/27/20 05:00 108 18 114/52 (72) 99 9/27/20 04:40 111 20 132/69 100 08/27/20 04:10 108 20 147/67 100 08/27/20 04:04 98.0 08/27/20 04:00 Mechanical Ventilator Mechanical Ventilator 08/27/20 04:00 55 08/27/20 04:00 98.0 85 20 139/67 (91) 100 08/27/20 03:32 110 139/70 (93) 08/27/20 03:30 125 20 55 08/27/20 03:12 115 08/27/20 03:00 98 18 100/56 (71) 99 08/27/20 02:00 101 18 109/55 (73) 99 08/27/20 01:00 103 18 125/58 (80) 100 08/27/20 00:35 108 18 121/58 100 08/27/20 00:05 106 18 121/54 100 08/27/20 00:00 55 08/27/20 00:00 Mechanical Ventilator Mechanical Ventilator 08/27/20 00:00 97.8 103 20 123/64 (83) 100 08/26/20 23:47 104 08/26/20 23:25 55 08/26/20 23:17 98 15 55 08/26/20 23:00 101 18 121/54 (76) 100 08/26/20 22:00 101 22 111/50 (70) 100 08/26/20 21:00 103 20 118/59 (78) 100 08/26/20 20:00 Mechanical Ventilator Mechanical Ventilator 08/26/20 20:00 97.6 104 20 127/58 (81) 100 08/26/20 20:00 65 08/26/20 19:50 102 15 65 08/26/20 19:35 109 08/26/20 19:00 116 124/54 (77) 97 08/26/20 18:10 100 22 130/64 100 08/26/20 18:10 99.7 08/26/20 18:00 116 20 132/64 (86) 97 Intake and Output 08/26/20 08/27/20 19:00 07:00 Intake Total 1943.334 ml 2215.416 ml Output Total 720 ml 630 ml Balance 1223.334 ml 1585.416 ml Free Water 120 ml 50 ml IV Total 1403.334 ml 1775.416 ml Tube Feeding 360 ml 390 ml Other 60 ml Output Urine Total 690 ml 580 ml Stool Total 30 ml 50 ml Laboratory Tests 08/27/20 00:40: Vancomycin Level Trough 14.4H 08/27/20 04:30: White Blood Count 30.8*H, Red Blood Count 2.07L, Hemoglobin 6.5*L, Hematocrit 19.3L, Mean Corpuscular Volume 93, Mean Corpuscular Hemoglobin 31.2H, Mean Corpuscular Hemoglobin Concent 33.4, Red Cell Distribution Width 16.9H, Platelet Count 403, Mean Platelet Volume 8.4, Neutrophils (%) (Auto) , Lymphocytes (%) (Auto) , Monocytes (%) (Auto) , Eosinophils (%) (Auto) , Basophils (%) (Auto) , Differential Total Cells Counted 100, Neutrophils % (Manual) 74, Lymphocytes % (Manual) 8L, Monocytes % (Manual) 9, Eosinophils % (Manual) 8H, Basophils % (Manual) 1, Band Neutrophils 0, Platelet Estimate Adequate, Platelet Morphology Normal, Hypochromasia 4+, Anisocytosis 1+, Sodium Level 148H, Potassium Level 4.0, Chloride Level 117H, Carbon Dioxide Level 22, Anion Gap 9, Blood Urea Nitrogen 45H, Creatinine 1.2, Estimat Glomerular Filtration Rate > 60, Glucose Level 102, Calcium Level 8.6, Total Bilirubin 1.0, Aspartate Amino Transf (AST/SGOT) 55H, Alanine Aminotransferase (ALT/SGPT) 66, Alkaline Phosphatase 414H, Total Protein 7.7, Albumin 2.5L, Globulin 5.2, Albumin/Globulin Ratio 0.5L Height (Feet): 5 Height (Inches): 10.00 Weight (Pounds): 112 Objective Thin AA Man HEENT s/p craniotomy, (+) ETT neck (+) dressing Coarse BS, ronchi, tachypnic RR/tachy abd soft (+) GT no edema Assessment/Plan Status: stable, not improved Assessment/Plan: Assessment - respiratory distress - intubated - recent occluded GT - replaced - abnormal LFT - 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
--- NOTE | 2020-08-27 18:15 | NUR ---
NURSE NOTES: Pt was cleaned, sacral dressing was changed. Pt was repositioned with bilateral lower extremities elevated on pillows. VS remain stable. Pt is calm, and resting in no apparent distress. NSR per cardiac specialist.
--- NOTE | 2020-08-27 19:30 | NUR ---
NURSE NOTES: Received report from Leonarda STODDARD. patient in bed with eyes open, orally intubated Fi02 55% satting 100%. HOB elevated. no s/s of acute distress noted. no fever. Gt intact with 30cc residual, running Vital AF 1.2 at 50cc/hr. Overton draining. Rectal tube intact. Right upper arm PICC line intact no s/s of infiltration, infusing D5 1/2 NS with KCL 10mEq at 75cc/hr. on P200 mattress for wound management. Seizure precaution and Contact isolation maintained and observed. bilateral wrist restraint checked. will continue plan of care.
--- NOTE | 2020-08-27 19:33 | NUR ---
NURSE HAND-OFF REPORT: Latest Vital Signs: Temperature 98.7 , Pulse 74 , B/P 112 /53 , Respiratory Rate 17 , O2 SAT 100 , Mechanical Ventilator, settings AC12, VT500, Peep 0, FIO2 55% at 100% O2sat. EKG Rhythm: Sinus Rhythm Rhythm change?: N Notified?: James DAVIES MD Response: Latest Stevens Fall Score: 55 Fall Risk: High Risk Safety Measures: Call light Within Reach, Bed Alarm Zone 2, Side Rails Side Rails x2, Bed position Low and Locked. Fall Precautions: Yellow Socks Yellow Gown Door Sign Patient Fall Education Report given to Francia STODDARD. Endorsed plan of care.
[2020-08-27] MEDS: Dyna-Hex 2% Top Sol 2oz TOPIC SCH (20:34)
--- NOTE | 2020-08-27 20:35 | NUR ---
NURSE NOTES: Noted patient moaning, anxious reposition patient in bed, TV provided, talk therapy provided not effective. Morphine and Ativan 1mg IVP given will recheck patient.
--- NOTE | 2020-08-27 21:00 | NUR ---
NURSE NOTES: Patient in bed sleeping comfortably.sleeping comfortably in bed. no s/s of acute distress noted. will continue plan of care.
--- NOTE | 2020-08-27 21:54 | General Progress Note ---
Subjective ROS Limited/Unobtainable: No Constitutional: Reports: malaise, weakness HEENT: Reports: no symptoms Cardiovascular: Reports: no symptoms Respiratory: Reports: shortness of breath, sputum Gastrointestinal/Abdominal: Reports: difficulty swallowing Genitourinary: Reports: no symptoms Neurologic/Psychiatric: Reports: pre-existing deficit, seizure Endocrine: Reports: no symptoms Hematologic/Lymphatic: Reports: anemia Allergies: Coded Allergies: ADHESIVE TAPE (Verified Allergy, Unknown, 07/20/20) Uncoded Allergies: TAPE (Allergy, Unknown, 08/07/20) All Systems: reviewed and negative except above Subjective remain stable on the vent. orally intubated. intermittently agitated. anxiety relieved with ativan. on abx. labs noted Objective Last 24 Hour Vital Signs Date Time Temp Pulse Resp B/P (MAP) Pulse Ox O2 Delivery O2 Flow Rate FiO2 08/27/20 21:05 90 14 122/46 98 08/27/20 21:05 98.0 08/27/20 21:00 90 14 122/46 (71) 98 08/27/20 20:35 72 16 135/54 100 08/27/20 20:00 Mechanical Ventilator Mechanical Ventilator 08/27/20 20:00 100 08/27/20 20:00 45 08/27/20 20:00 98.0 72 15 135/54 (81) 100 08/27/20 19:32 67 15 55 08/27/20 19:00 74 17 112/53 (72) 100 08/27/20 18:00 98.7 73 13 126/47 (73) 100 08/27/20 17:00 80 13 123/51 (75) 100 08/27/20 16:00 55 08/27/20 16:00 67 15 110/52 (71) 100 08/27/20 16:00 73 08/27/20 16:00 Mechanical Ventilator Mechanical Ventilator 08/27/20 15:20 84 14 55 08/27/20 15:00 83 13 127/54 (78) 100 08/27/20 14:28 98.0 08/27/20 14:27 80 14 115/52 100 08/27/20 14:00 98.9 79 13 115/52 (73) 100 08/27/20 13:57 81 14 111/51 100 08/27/20 13:00 80 14 111/51 (71) 100 08/27/20 12:09 77 13 114/46 (68) 100 08/27/20 12:00 Mechanical Ventilator Mechanical Ventilator 08/27/20 12:00 55 08/27/20 12:00 72 08/27/20 11:13 95 15 55 08/27/20 11:00 79 13 117/47 (70) 100 08/27/20 10:00 88 13 117/56 (76) 100 08/27/20 09:44 98.0 08/27/20 09:43 84 14 108/48 100 08/27/20 09:13 91 14 120/58 100 08/27/20 09:00 98.7 92 16 108/48 (68) 90 08/27/20 08:00 91 08/27/20 08:00 Mechanical Ventilator Mechanical Ventilator 08/27/20 08:00 90 14 120/58 (78) 100 08/27/20 08:00 55 08/27/20 07:17 102 15 55 08/27/20 07:00 103 18 111/62 (78) 100 08/27/20 06:00 105 18 106/53 (70) 100 08/27/20 05:00 108 18 114/52 (72) 99 08/27/20 04:40 111 20 132/69 100 08/27/20 04:10 108 20 147/67 100 08/27/20 04:04 98.0 08/27/20 04:00 Mechanical Ventilator Mechanical Ventilator 08/27/20 04:00 55 08/27/20 04:00 98.0 85 20 139/67 (91) 100 08/27/20 03:32 110 139/70 (93) 08/27/20 03:30 125 20 55 08/27/20 03:12 115 08/27/20 03:00 98 18 100/56 (71) 99 08/27/20 02:00 101 18 109/55 (73) 99 08/27/20 01:00 103 18 125/58 (80) 100 08/27/20 00:35 108 18 121/58 100 08/27/20 00:05 106 18 121/54 100 08/27/20 00:00 55 08/27/20 00:00 Mechanical Ventilator Mechanical Ventilator 08/27/20 00:00 97.8 103 20 123/64 (83) 100 08/26/20 23:47 104 9/26/20 23:25 55 08/26/20 23:17 98 15 55 08/26/20 23:00 101 18 121/54 (76) 100 08/26/20 22:00 101 22 111/50 (70) 100 Intake and Output 08/26/20 08/27/20 19:00 07:00 Intake Total 1943.334 ml 2215.416 ml Output Total 720 ml 630 ml Balance 1223.334 ml 1585.416 ml Free Water 120 ml 50 ml IV Total 1403.334 ml 1775.416 ml Tube Feeding 360 ml 390 ml Other 60 ml Output Urine Total 690 ml 580 ml Stool Total 30 ml 50 ml Laboratory Tests 08/27/20 00:40: Vancomycin Level Trough 14.4H 08/27/20 04:30: White Blood Count 30.8*H, Red Blood Count 2.07L, Hemoglobin 6.5*L, Hematocrit 19.3L, Mean Corpuscular Volume 93, Mean Corpuscular Hemoglobin 31.2H, Mean Corpuscular Hemoglobin Concent 33.4, Red Cell Distribution Width 16.9H, Platelet Count 403, Mean Platelet Volume 8.4, Neutrophils (%) (Auto) , Lymphocytes (%) (Auto) , Monocytes (%) (Auto) , Eosinophils (%) (Auto) , Basophils (%) (Auto) , Differential Total Cells Counted 100, Neutrophils % (Manual) 74, Lymphocytes % (Manual) 8L, Monocytes % (Manual) 9, Eosinophils % (Manual) 8H, Basophils % (Manual) 1, Band Neutrophils 0, Platelet Estimate Adequate, Platelet Morphology Normal, Hypochromasia 4+, Anisocytosis 1+, Sodium Level 148H, Potassium Level 4.0, Chloride Level 117H, Carbon Dioxide Level 22, Anion Gap 9, Blood Urea Nitrogen 45H, Creatinine 1.2, Estimat Glomerular Filtration Rate > 60, Glucose Level 102, Calcium Level 8.6, Total Bilirubin 1.0, Aspartate Amino Transf (AST/SGOT) 55H, Alanine Aminotransferase (ALT/SGPT) 66, Alkaline Phosphatase 414H, Total Protein 7.7, Albumin 2.5L, Globulin 5.2, Albumin/Globulin Ratio 0.5L Height (Feet): 5 Height (Inches): 10.00 Weight (Pounds): 112 Objective General Appearance: WD/WN, lethargic. orally intubated EENT: normal ENT inspection Neck: normal alignment Cardiovascular: normal peripheral pulses, normal rate Respiratory/Chest: chest wall non-tender, lungs clear, normal breath sounds Abdomen: normal bowel sounds, non tender, soft, no organomegaly Edema: no edema noted Arm (L), no edema noted Arm (R) Neurologic: weak/sedated Assessment/Plan Problem List: (1) Pneumonia ICD Codes: J18.9 - Pneumonia, unspecified organism SNOMED: 640753786 Qualifiers: Qualified Codes: J18.9 - Pneumonia, unspecified organism (2) Sickle cell anemia ICD Codes: D57.1 - Sickle-cell disease without crisis SNOMED: 171759757 Qualifiers: Qualified Codes: D57.00 - Hb-SS disease with crisis, unspecified (3) Severe sepsis ICD Codes: A41.9 - Sepsis, unspecified organism; R65.20 - Severe sepsis without septic shock SNOMED: 11011315 Status: stable, not improved Assessment/Plan: cont vent support wean as able monitor abg resp care suctioning as needed dvt/stress ulcer prophylaxis surgery follow up will likely need new trach d/w mother Lalo Ahumada MD Aug 27, 2020 21:54
--- NOTE | 2020-08-27 23:00 | NUR ---
NURSE NOTES: Patient in bed no s/s of acute distress noted. Overton draining. Rectal tube intact. Right upper arm PICC line intact no s/s of infiltration, infusing D5 1/2 NS with KCL 10mEq at 75cc/hr. on P200 mattress for wound management. Seizure precaution and Contact isolation maintained and observed. bilateral wrist restraint checked. will continue plan of care.
[2020-08-28] VITALS (24 sets, daily range): BP systolic 112–146; BP diastolic 47–71
--- NOTE | 2020-08-28 01:00 | NUR ---
NURSE NOTES: Bed Bath given tolerated well.
[2020-08-28] MEDS: Cefepime HCl 2 GM in D5W 55 ML IVPB SCH ×2 (01:10→13:30)
[2020-08-28] MEDS: Vancomycin 1gm/D5W 275ml IVPB SCH ×2 (01:10)
[2020-08-28] MEDS: D5 1/2NS w/KCL 10meq 1,000 ML IV SCH (01:16)
[2020-08-28] MEDS: Morphine Sulfate 2mg/ml Inj(IV/IM USE ONLY) IVP PRN ×5 (01:56→19:00)
[2020-08-28] MEDS: LORazepam Inj 2mg/ml 1ml IV PRN ×5 (01:56→20:56)
--- NOTE | 2020-08-28 01:56 | NUR ---
NURSE NOTES: Noted patient moaning, anxious reposition patient in bed, TV provided, talk therapy provided not effective. Morphine and Ativan 1mg IVP given will recheck patient.
--- NOTE | 2020-08-28 02:30 | NUR ---
NURSE NOTES: patient in bed sleeping comfortably. no s/sf acute distress noted. frequent visual checks continued. will continue plan of care.
--- NOTE | 2020-08-28 04:41 | NUR ---
NURSE NOTES: Patient in bed with eyes open, orally intubated Fi02 45% satting 100%. HOB elevated. no s/s of acute distress noted. no fever. Gt intact no residual, running Vital AF 1.2 at 60cc/hr. Overton draining. Rectal tube intact. Right upper arm PICC line intact no s/s of infiltration, infusing D5 1/2 NS with KCL 10mEq at 75cc/hr. on P200 mattress for wound management. Seizure precaution and Contact isolation maintained and observed. patient with episodes of trying to pull out tubing despite of bilateral wrist restraint, explained the importance v/s risk and benefits of restraint, encouraged patient verbalize or make needs, fears and feelings to staff, talk therapy provided and repositioned patient not effective. bilateral wrist restraint checked. will continue plan of care.
--- NOTE | 2020-08-28 05:00 | NUR ---
NURSE NOTES: Collected UA send to lab.
[2020-08-28 05:29] LABS: MEAN CORPUSCULAR VOLUME 95 FL (80-99); PLATELET COUNT 382 K/UL (150-450); RED BLOOD COUNT 1.99 M/UL (4.70-6.10); RED CELL DISTRIBUTION WIDTH 16.4 % (11.6-14.8)
[2020-08-28 05:35] LABS: APPEARANCE,URINE CLEAR; BILIRUBIN, URINE NEGATIVE (NEGATIVE); COLOR,URINE PALE YELLOW; GLUCOSE, URINE (UA) NEGATIVE (NEGATIVE); KETONES,URINE NEGATIVE (NEGATIVE); LEUKOCYTE ESTERASE ,URINE 1+ (NEGATIVE); NITRITE,URINE NEGATIVE (NEGATIVE); PH,URINE 5 (4.5-8.0); PROTEIN,URINE 1+ (NEGATIVE); UROBILINOGEN,URINE NORMAL MG/DL (0.0-1.0)
[2020-08-28 05:47] LABS: WHITE BLOOD COUNT 24.9 K/UL (4.8-10.8)
[2020-08-28 05:48] LABS: HEMOGLOBIN 6.5 G/DL (14.2-18.0)
[2020-08-28 06:02] LABS: ALANINE AMINOTRANSFERASE 54 U/L (12-78); ALBUMIN 2.3 G/DL (3.4-5.0); ALBUMIN/GLOBULIN RATIO 0.5 (1.0-2.7); ALKALINE PHOSPHATASE 377 U/L (46-116); ANION GAP 9 mmol/L (5-15); ASPARTATE AMINO TRANSFERASE 46 U/L (15-37); BLOOD UREA NITROGEN 37 mg/dL (7-18); CALCIUM 8.8 MG/DL (8.5-10.1); CARBON DIOXIDE 23 MMOL/L (21-32); CHLORIDE 117 MMOL/L (98-107); CREATININE 1.1 MG/DL (0.55-1.30); POTASSIUM 4.1 MMOL/L (3.5-5.1); SODIUM 149 MMOL/L (136-145)
--- NOTE | 2020-08-28 06:13 | NUR ---
RD ASSESSMENT & RECOMMENDATIONS SEE CARE ACTIVITY FOR COMPLETE ASSESSMENT DAILY ESTIMATED NEEDS: Needs based on Underweight, Critical care/ 50.8kg 30-35 kcals/kg 0334-3882 total kcals 1.25-2 g protein/kg 64-102 g total protein 25-30 mL/kg 1915-9294 total fluid mLs NUTRITION DIAGNOSIS: Swallowing difficulty R/T respiratory status, dysphagia as evidenced by h/o craniotomy, trach/vent dep, s/p dislodged trach and removal (08/25), currently orally intubated, on GT feeds. CURRENT TF:Vital 1.2 @ 70ml/hr x 24 hrs ENTERAL NUTRITION RECOMMENDATIONS: Vital AF 1.2 @ 60ml/hr x 24 hrs to provide 1440ml, 1728kcal, 108g prot, 1168ml free water * LOWER goal rate to 60ml/hr x 24 hrs to not exceed est needs -> meets 100% est needs * HOB over 30 degrees/ water flush per MD ADDITIONAL RECOMMENDATIONS: * Maintain calibrated bedscale wt * Add probiotics and anti-diarrheal med for diarrhea, +rectal tube * Skin integrity: TF rec @ goal provides 100% RDI * Monitor lytes, replete as needed * Monitor BGs closely for hypo and hyperglycemia (no further episodes of hypoglycemia BG 67 on 08/16) .
--- NOTE | 2020-08-28 07:14 | General Progress Note ---
Subjective ROS Limited/Unobtainable: No Constitutional: Reports: malaise, weakness HEENT: Reports: no symptoms Cardiovascular: Reports: no symptoms Respiratory: Reports: cough, shortness of breath Gastrointestinal/Abdominal: Reports: difficulty swallowing Genitourinary: Reports: no symptoms Neurologic/Psychiatric: Reports: pre-existing deficit, seizure Endocrine: Reports: no symptoms Hematologic/Lymphatic: Reports: anemia Allergies: Coded Allergies: ADHESIVE TAPE (Verified Allergy, Unknown, 07/20/20) Uncoded Allergies: TAPE (Allergy, Unknown, 08/07/20) All Systems: reviewed and negative except above Subjective remain stable on the vent. orally intubated. intermittently agitated. tolerating feeds, Na remains elevated. on 12/02 ns. surgery noted. Objective Last 24 Hour Vital Signs Date Time Temp Pulse Resp B/P (MAP) Pulse Ox O2 Delivery O2 Flow Rate FiO2 08/28/20 06:00 69 13 121/50 (73) 100 08/28/20 05:00 78 13 115/52 (73) 100 08/28/20 04:00 98.0 65 12 129/58 (81) 100 08/28/20 04:00 66 08/28/20 04:00 45 08/28/20 04:00 Mechanical Ventilator Mechanical Ventilator 08/28/20 03:00 67 12 136/53 (80) 100 08/28/20 02:37 80 14 45 08/28/20 02:26 80 14 112/71 100 08/28/20 02:26 98.4 08/28/20 02:00 77 15 112/71 (85) 100 08/28/20 01:56 70 12 114/53 100 08/28/20 01:00 70 12 114/53 (73) 100 08/28/20 00:00 45 08/28/20 00:00 98.4 66 12 129/57 (81) 100 08/28/20 00:00 Mechanical Ventilator Mechanical Ventilator 08/28/20 00:00 81 08/27/20 23:00 69 12 121/55 (77) 100 08/27/20 22:53 76 15 45 08/27/20 22:00 91 15 115/50 (71) 99 08/27/20 21:05 90 14 122/46 98 08/27/20 21:05 98.0 08/27/20 21:00 90 14 122/46 (71) 98 08/27/20 20:35 72 16 135/54 100 08/27/20 20:00 Mechanical Ventilator Mechanical Ventilator 08/27/20 20:00 100 08/27/20 20:00 45 08/27/20 20:00 98.0 72 15 135/54 (81) 100 08/27/20 19:32 67 15 55 08/27/20 19:00 74 17 112/53 (72) 100 08/27/20 18:00 98.7 73 13 126/47 (73) 100 08/27/20 17:00 80 13 123/51 (75) 100 08/27/20 16:00 55 08/27/20 16:00 67 15 110/52 (71) 100 08/27/20 16:00 73 08/27/20 16:00 Mechanical Ventilator Mechanical Ventilator 08/27/20 15:20 84 14 55 08/27/20 15:00 83 13 127/54 (78) 100 08/27/20 14:28 98.0 08/27/20 14:27 80 14 115/52 100 08/27/20 14:00 98.9 79 13 115/52 (73) 100 08/27/20 13:57 81 14 111/51 100 08/27/20 13:00 80 14 111/51 (71) 100 08/27/20 12:09 77 13 114/46 (68) 100 08/27/20 12:00 Mechanical Ventilator Mechanical Ventilator 08/27/20 12:00 55 08/27/20 12:00 72 08/27/20 11:13 95 15 55 08/27/20 11:00 79 13 117/47 (70) 100 08/27/20 10:00 88 13 117/56 (76) 100 08/27/20 09:44 98.0 08/27/20 09:43 84 14 108/48 100 08/27/20 09:13 91 14 120/58 100 08/27/20 09:00 98.7 92 16 108/48 (68) 90 08/27/20 08:00 91 08/27/20 08:00 Mechanical Ventilator Mechanical Ventilator 08/27/20 08:00 90 14 120/58 (78) 100 08/27/20 08:00 55 08/27/20 07:17 102 15 55 Intake and Output 08/27/20 08/28/20 19:00 07:00 Intake Total 2162.416 ml 2239.750 ml Output Total 730 ml 685 ml Balance 1432.416 ml 1554.750 ml Free Water 120 ml 50 ml IV Total 1552.416 ml 1609.750 ml Tube Feeding 490 ml 580 ml Output Urine Total 700 ml 685 ml Stool Total 30 ml Laboratory Tests 08/28/20 04:40: White Blood Count 24.9*H, Red Blood Count 1.99L, Hemoglobin 6.5*L, Hematocrit 19.0L, Mean Corpuscular Volume 95, Mean Corpuscular Hemoglobin 32.6H, Mean Corpuscular Hemoglobin Concent 34.2, Red Cell Distribution Width 16.4H, Platelet Count 382, Mean Platelet Volume 8.7, Neutrophils (%) (Auto) , Lymphocytes (%) (Auto) , Monocytes (%) (Auto) , Eosinophils (%) (Auto) , Basophils (%) (Auto) , Neutrophils % (Manual) [Pending], Lymphocytes % (Manual) [Pending], Platelet Estimate [Pending], Platelet Morphology [Pending], Sodium Level 149H, Potassium Level 4.1, Chloride Level 117H, Carbon Dioxide Level 23, Anion Gap 9, Blood Urea Nitrogen 37H, Creatinine 1.1, Estimat Glomerular Filtration Rate > 60, Glucose Level 98, Calcium Level 8.8, Total Bilirubin 1.0, Aspartate Amino Transf (AST/SGOT) 46H, Alanine Aminotransferase (ALT/SGPT) 54, Alkaline Phosphatase 377H, Total Protein 7.4, Albumin 2.3L, Globulin 5.1, Albumin/Globulin Ratio 0.5L 08/28/20 05:00: Urine Color Pale yellow, Urine Appearance Clear, Urine pH 5, Urine Specific [place] 1.005, Urine Protein 1+H, Urine Glucose (UA) Negative, Urine Ketones Negative, Urine Blood 1+H, Urine Nitrite Negative, Urine Bilirubin Negative, Urine Urobilinogen Normal, Urine Leukocyte Esterase 1+H, Urine RBC 0-2H, Urine WBC 0-2, Urine Squamous Epithelial Cells None, Urine Bacteria None Height (Feet): 5 Height (Inches): 10.00 Weight (Pounds): 112 Objective General Appearance: WD/WN, lethargic. orally intubated EENT: normal ENT inspection Neck: normal alignment Cardiovascular: normal peripheral pulses, normal rate Respiratory/Chest: chest wall non-tender, lungs clear, normal breath sounds Abdomen: normal bowel sounds, non tender, soft, no organomegaly Edema: no edema noted Arm (L), no edema noted Arm (R) Neurologic: weak/sedated Assessment/Plan Problem List: (1) Pneumonia ICD Codes: J18.9 - Pneumonia, unspecified organism SNOMED: 369261669 Qualifiers: Qualified Codes: J18.9 - Pneumonia, unspecified organism (2) Sickle cell anemia ICD Codes: D57.1 - Sickle-cell disease without crisis SNOMED: [id number] Qualifiers: Qualified Codes: D57.00 - Hb-SS disease with crisis, unspecified (3) Severe sepsis ICD Codes: A41.9 - Sepsis, unspecified organism; R65.20 - Severe sepsis without septic shock SNOMED: [id number] Status: stable, not improved Assessment/Plan: cont vent support wean as able monitor abg resp care suctioning as needed dvt/stress ulcer prophylaxis surgery follow up will likely need new trach ivf adjusted repeats labs in am d/w mother Lalo Ahumada MD Aug 28, 2020 07:14
--- NOTE | 2020-08-28 07:17 | NUR ---
HAND-OFF: Report given to Yvette Hardin RN.
--- NOTE | 2020-08-28 07:18 | NUR ---
NURSE NOTES: Received pt from ARLYN Feldman. Pt vital signs stable. Pt restless at this time with facial grimace. Will follow up with ativan and morphine as needed per order. Right side craniotomy noted. Pt opens eyes spontaneously, tracks with eyes, makes purposeful movements, but does not attempt to communicate at this time. PT moves all extremities. Peripheral pulses equal and palpable. No edema noted. Pt intubated with 7.5 ET tube. [place] fast detached from face on right side. Adjusted strap around back of neck to ensure the ET tube does not become dislodged. Notified RT that anchor fast needs replacement. Pt reported to attempt to reach for ET tube. Bilateral soft wrist restraint in place. Right upper arm PICC line noted. Dressing dry and intact. D5 0.45% NS with 10mEq KCl running at 75mL/hr at this time. Pt on low air loss mattress. Received report that pt has sacral DTI. Pt repositioned and this time. Will follow up with reposition Q2Hr and PRN. Bilateral arm and heel elevated. Rectal tube noted. Small amount of stool noted in tube. Overton in place and intact. Yellow color urine noted. Bed in low position with bed alarm on and call light in reach. Repositioned and oral care done. Will continue to monitor.
[2020-08-28] MEDS: Acetaminophen 650mg/20.3ml GT PRN ×3 (07:27→20:55)
[2020-08-28] MEDS: levETIRAcetam 1,000mg/NS100ml 100 ML IVPB SCH ×2 (08:38→20:40)
[2020-08-28] MEDS: Pantoprazole Inj IVP SCH ×2 (08:39→20:40)
[2020-08-28] MEDS: Heparin 5000 units/ml inj SUBQ SCH ×2 (08:41→21:00)
--- NOTE | 2020-08-28 09:51 | NUR ---
NURSE NOTES: Called [facility] to follow up regarding date of pneumonia and flu shots. Neither have been given per their records.
--- NOTE | 2020-08-28 10:01 | NUR ---
NURSE NOTES: Called and updated [facility] pt mother. Update given. Questions answered.
--- NOTE | 2020-08-28 11:58 | Infectious Diseases Prog Note ---
Assessment/Plan Assessment/Plan antibiotics : vancomycin iv, cefepime A 1. streptococcus sepsis s/p catheter removal 2. serratia pneumonia 3. respiratory failure 4. sickle cell disease 5. anemia 6. leucocytosis improving 7. seizures P 1. continue iv vancomycin, cefepime 2. will follow up cultures Subjective ROS Limited/Unobtainable: Yes Allergies: Coded Allergies: ADHESIVE TAPE (Verified Allergy, Unknown, 07/20/20) Uncoded Allergies: TAPE (Allergy, Unknown, 08/07/20) Objective Last 24 Hour Vital Signs Date Time Temp Pulse Resp B/P (MAP) Pulse Ox O2 Delivery O2 Flow Rate FiO2 08/28/20 11:39 73 17 136/54 100 08/28/20 11:00 68 13 136/54 (81) 100 08/28/20 10:00 74 15 122/47 (72) 100 08/28/20 09:00 70 13 128/48 (74) 100 08/28/20 08:00 98.1 70 14 133/48 (76) 100 08/28/20 08:00 67 08/28/20 08:00 Mechanical Ventilator Mechanical Ventilator 08/28/20 08:00 45 08/28/20 07:57 70 13 133/48 100 08/28/20 07:27 65 16 129/57 100 08/28/20 07:10 71 14 45 08/28/20 07:00 70 13 129/57 (81) 100 08/28/20 06:00 69 13 121/50 (73) 100 08/28/20 05:00 78 13 115/52 (73) 100 08/28/20 04:00 98.0 65 12 129/58 (81) 100 08/28/20 04:00 66 08/28/20 04:00 45 08/28/20 04:00 Mechanical Ventilator Mechanical Ventilator 08/28/20 03:00 67 12 136/53 (80) 100 08/28/20 02:37 80 14 45 08/28/20 02:26 80 14 112/71 100 08/28/20 02:26 98.4 08/28/20 02:00 77 15 112/71 (85) 100 08/28/20 01:56 70 12 114/53 100 08/28/20 01:00 70 12 114/53 (73) 100 08/28/20 00:00 45 08/28/20 00:00 98.4 66 12 129/57 (81) 100 08/28/20 00:00 Mechanical Ventilator Mechanical Ventilator 08/28/20 00:00 81 08/27/20 23:00 69 12 121/55 (77) 100 08/27/20 22:53 76 15 45 08/27/20 22:00 91 15 115/50 (71) 99 08/27/20 21:05 90 14 122/46 98 08/27/20 21:05 98.0 08/27/20 21:00 90 14 122/46 (71) 98 08/27/20 20:35 72 16 135/54 100 08/27/20 20:00 Mechanical Ventilator Mechanical Ventilator 08/27/20 20:00 100 08/27/20 20:00 45 08/27/20 20:00 98.0 72 15 135/54 (81) 100 08/27/20 19:32 67 15 55 08/27/20 19:00 74 17 112/53 (72) 100 08/27/20 18:00 98.7 73 13 126/47 (73) 100 08/27/20 17:00 80 13 123/51 (75) 100 08/27/20 16:00 55 08/27/20 16:00 67 15 110/52 (71) 100 08/27/20 16:00 73 08/27/20 16:00 Mechanical Ventilator Mechanical Ventilator 08/27/20 15:20 84 14 55 08/27/20 15:00 83 13 127/54 (78) 100 08/27/20 14:28 98.0 08/27/20 14:27 80 14 115/52 100 08/27/20 14:00 98.9 79 13 115/52 (73) 100 08/27/20 13:57 81 14 111/51 100 08/27/20 13:00 80 14 111/51 (71) 100 08/27/20 12:09 77 13 114/46 (68) 100 08/27/20 12:00 Mechanical Ventilator Mechanical Ventilator 08/27/20 12:00 55 08/27/20 12:00 72 Height (Feet): 5 Height (Inches): 10.00 Weight (Pounds): 112 HEENT: other - intubated Respiratory/Chest: lungs clear Cardiovascular: normal rate, regular rhythm, no gallop/murmur Abdomen: soft, non tender, other - GT Extremities: no edema, other - right arm PICC Microbiology Date/Time Source Procedure Growth Status 08/26/20 03:55 Blood Blood Culture - Preliminary Strep Species, Gamma-Hemolytic Resulted 08/25/20 16:30 Sputum Gram Stain - Final Complete 08/25/20 16:30 Sputum Culture - Final Serratia Marcescens Complete Laboratory Tests Test 08/28/20 04:40 08/28/20 05:00 White Blood Count 24.9 K/UL (4.8-10.8) *H Red Blood Count 1.99 M/UL (4.70-6.10) L Hemoglobin 6.5 G/DL (14.2-18.0) *L Hematocrit 19.0 % (42.0-52.0) L Mean Corpuscular Volume 95 FL (80-99) Mean Corpuscular Hemoglobin 32.6 PG (27.0-31.0) H Mean Corpuscular Hemoglobin Concent 34.2 G/DL (32.0-36.0) Red Cell Distribution Width 16.4 % (11.6-14.8) H Platelet Count 382 K/UL (150-450) Mean Platelet Volume 8.7 FL (6.5-10.1) Neutrophils (%) (Auto) % (45.0-75.0) Lymphocytes (%) (Auto) % (20.0-45.0) Monocytes (%) (Auto) % (1.0-10.0) Eosinophils (%) (Auto) % (0.0-3.0) Basophils (%) (Auto) % (0.0-2.0) Differential Total Cells Counted 100 Neutrophils % (Manual) 68 % (45-75) Lymphocytes % (Manual) 20 % (20-45) Monocytes % (Manual) 5 % (1-10) Eosinophils % (Manual) 7 % (0-3) H Basophils % (Manual) 0 % (0-2) Band Neutrophils 0 % (0-8) Platelet Estimate Adequate Platelet Morphology Normal Hypochromasia 1+ Anisocytosis 1+ Sodium Level 149 MMOL/L (136-145) H Potassium Level 4.1 MMOL/L (3.5-5.1) Chloride Level 117 MMOL/L (98-107) H Carbon Dioxide Level 23 MMOL/L (21-32) Anion Gap 9 mmol/L (5-15) Blood Urea Nitrogen 37 mg/dL (7-18) H Creatinine 1.1 MG/DL (0.55-1.30) Estimat Glomerular Filtration Rate > 60 mL/min (>60) Glucose Level 98 MG/DL (74-106) Calcium Level 8.8 MG/DL (8.5-10.1) Total Bilirubin 1.0 MG/DL (0.2-1.0) Aspartate Amino Transf (AST/SGOT) 46 U/L (15-37) H Alanine Aminotransferase (ALT/SGPT) 54 U/L (12-78) Alkaline Phosphatase 377 U/L (46-116) H Total Protein 7.4 G/DL (6.4-8.2) Albumin 2.3 G/DL (3.4-5.0) L Globulin 5.1 g/dL Albumin/Globulin Ratio 0.5 (1.0-2.7) L Urine Color Pale yellow Urine Appearance Clear Urine pH 5 (4.5-8.0) Urine Specific [place] 1.005 (1.005-1.035) Urine Protein 1+ (NEGATIVE) H Urine Glucose (UA) Negative (NEGATIVE) Urine Ketones Negative (NEGATIVE) Urine Blood 1+ (NEGATIVE) H Urine Nitrite Negative (NEGATIVE) Urine Bilirubin Negative (NEGATIVE) Urine Urobilinogen Normal MG/DL (0.0-1.0) Urine Leukocyte Esterase 1+ (NEGATIVE) H Urine RBC 0-2 /HPF (0 - 0) H Urine WBC 0-2 /HPF (0 - 0) Urine Squamous Epithelial Cells None /LPF (NONE/OCC) Urine Bacteria None /HPF (NONE) Current Medications Medications (Trade) Dose Ordered Sig/[place] Route PRN Reason Start Time Stop Time Status Last Admin Dose Admin Acetaminophen (Tylenol) 650 mg Q4H PRN GT Mild Pain (Pain Scale 1-3) 08/24/20 13:00 09/23/20 12:59 08/25/20 11:33 Acetaminophen (Tylenol) 650 mg Q6H PRN GT Temp >100.5 08/10/20 20:20 09/09/20 20:19 08/28/20 07:27 Cefepime HCl 2 gm/ Dextrose 55 ml @ 110 mls/hr Q12H IVPB 08/25/20 14:00 09/01/20 13:59 08/28/20 01:10 Chlorhexidine Gluconate (Christy-Hex 2%) 1 applic DAILY@2000 TOPIC 08/14/20 20:00 11/12/20 19:59 08/27/20 20:34 Dextrose 1,000 ml @ 75 mls/hr [id number] IV 08/28/20 07:15 09/27/20 07:14 08/28/20 07:39 Folic Acid (Folate) 1 mg DAILY GT 08/11/20 09:00 09/07/20 08:59 08/28/20 08:39 Heparin Sodium (Porcine) (Heparin 5000 units/ml) 5,000 units EVERY 12 HOURS SUBQ 08/10/20 21:00 09/22/20 20:59 08/28/20 08:41 Levetiracetam 100 ml @ 400 mls/hr Q12HR IVPB 08/14/20 10:00 11/12/20 09:59 08/28/20 08:38 Lorazepam (Ativan 2mg/ml 1ml) 1 mg Q4H PRN IV For Anxiety 08/26/20 07:00 09/02/20 06:59 08/28/20 11:39 Metoclopramide HCl (Reglan) 10 mg Q8H PRN IVP Nausea & Vomiting 08/26/20 11:15 09/25/20 11:14 08/27/20 20:46 Morphine Sulfate (Morphine Sulfate) 1 mg Q4HR PRN IVP Severe Pain 08/26/20 07:00 09/02/20 06:59 08/28/20 11:39 Multivitamins (Multivitamins) 1 tab DAILY GT 08/11/20 09:00 09/07/20 08:59 08/28/20 08:38 Pantoprazole (Protonix) 40 mg EVERY 12 HOURS IVP 08/13/20 22:15 09/12/20 22:14 08/28/20 08:39 Vancomycin HCl (Vanco pharmacy to dose) 1 ea DAILY PRN MISC Per rx protocol 08/25/20 11:15 09/24/20 11:14 Vancomycin HCl 1 gm/Dextrose 275 ml @ 183.708 mls/hr Q12H IVPB 08/27/20 02:00 09/01/20 01:59 08/28/20 01:10 Isabelle Degroot MD Aug 28, 2020 11:58
--- NOTE | 2020-08-28 12:00 | NUR ---
NURSE NOTES: Pt vital signs remain stable. Pt appears to be in pain at this time. Pt restless and wiggling his hands and feet. Ativan and morphine given for comfort and pain. Mentation remains unchanged. Pt answers simple questions by blinking and shaking head slightly. Pupils PERRLA. Pt moves all ext to pain. Peripheral pulses equal and palpable. Pt remains intubated. [place] fast has been replaced and is intact. Bilateral soft wrist restraint remain in place for impulsivity. Right upper arm PICC line dressing changed, dry, intact, and running D5W at 75mL/hr. Pt repositioned and this time. Bilateral arm and heel elevated. Rectal tube intact. Overton in place and intact. Yellow color urine noted. Bed in low position with bed alarm on and call light in reach. Oral care done. Will continue to monitor.
--- NOTE | 2020-08-28 12:19 | Pulmonology Progress Note ---
Subjective ROS Limited/Unobtainable: Yes Constitutional: Reports: other - transferred to ICU Musculoskeletal: Reports: pain Allergies: Coded Allergies: ADHESIVE TAPE (Verified Allergy, Unknown, 07/20/20) Uncoded Allergies: TAPE (Allergy, Unknown, 08/07/20) All Systems: reviewed and negative except above Objective Last 24 Hour Vital Signs Date Time Temp Pulse Resp B/P (MAP) Pulse Ox O2 Delivery O2 Flow Rate FiO2 08/28/20 12:00 75 08/28/20 11:39 73 17 136/54 100 08/28/20 11:00 68 13 136/54 (81) 100 08/28/20 10:00 74 15 122/47 (72) 100 08/28/20 09:00 70 13 128/48 (74) 100 08/28/20 08:00 98.1 70 14 133/48 (76) 100 08/28/20 08:00 67 08/28/20 08:00 Mechanical Ventilator Mechanical Ventilator 08/28/20 08:00 45 08/28/20 07:57 70 13 133/48 100 08/28/20 07:27 65 16 129/57 100 08/28/20 07:10 71 14 45 08/28/20 07:00 70 13 129/57 (81) 100 08/28/20 06:00 69 13 121/50 (73) 100 08/28/20 05:00 78 13 115/52 (73) 100 08/28/20 04:00 98.0 65 12 129/58 (81) 100 08/28/20 04:00 66 08/28/20 04:00 45 08/28/20 04:00 Mechanical Ventilator Mechanical Ventilator 08/28/20 03:00 67 12 136/53 (80) 100 08/28/20 02:37 80 14 45 08/28/20 02:26 80 14 112/71 100 08/28/20 02:26 98.4 08/28/20 02:00 77 15 112/71 (85) 100 08/28/20 01:56 70 12 114/53 100 08/28/20 01:00 70 12 114/53 (73) 100 08/28/20 00:00 45 08/28/20 00:00 98.4 66 12 129/57 (81) 100 08/28/20 00:00 Mechanical Ventilator Mechanical Ventilator 08/28/20 00:00 81 9/27/20 23:00 69 12 121/55 (77) 100 08/27/20 22:53 76 15 45 08/27/20 22:00 91 15 115/50 (71) 99 08/27/20 21:05 90 14 122/46 98 08/27/20 21:05 98.0 08/27/20 21:00 90 14 122/46 (71) 98 08/27/20 20:35 72 16 135/54 100 08/27/20 20:00 Mechanical Ventilator Mechanical Ventilator 08/27/20 20:00 100 08/27/20 20:00 45 08/27/20 20:00 98.0 72 15 135/54 (81) 100 08/27/20 19:32 67 15 55 08/27/20 19:00 74 17 112/53 (72) 100 08/27/20 18:00 98.7 73 13 126/47 (73) 100 08/27/20 17:00 80 13 123/51 (75) 100 08/27/20 16:00 55 08/27/20 16:00 67 15 110/52 (71) 100 08/27/20 16:00 73 08/27/20 16:00 Mechanical Ventilator Mechanical Ventilator 08/27/20 15:20 84 14 55 08/27/20 15:00 83 13 127/54 (78) 100 08/27/20 14:28 98.0 08/27/20 14:27 80 14 115/52 100 08/27/20 14:00 98.9 79 13 115/52 (73) 100 08/27/20 13:57 81 14 111/51 100 08/27/20 13:00 80 14 111/51 (71) 100 Intake and Output 08/27/20 08/28/20 19:00 07:00 Intake Total 2162.416 ml 2374.750 ml Output Total 730 ml 835 ml Balance 1432.416 ml 1539.750 ml Free Water 120 ml 50 ml IV Total 1552.416 ml 1684.750 ml Tube Feeding 490 ml 640 ml Output Urine Total 700 ml 785 ml Stool Total 30 ml 50 ml Microbiology Date/Time Source Procedure Growth Status 08/26/20 03:55 Blood Blood Culture - Preliminary Strep Species, Gamma-Hemolytic Resulted 08/25/20 16:30 Sputum Gram Stain - Final Complete 08/25/20 16:30 Sputum Culture - Final Serratia Marcescens Complete Laboratory Tests 08/28/20 04:40: White Blood Count 24.9*H, Red Blood Count 1.99L, Hemoglobin 6.5*L, Hematocrit 19.0L, Mean Corpuscular Volume 95, Mean Corpuscular Hemoglobin 32.6H, Mean Corpuscular Hemoglobin Concent 34.2, Red Cell Distribution Width 16.4H, Platelet Count 382, Mean Platelet Volume 8.7, Neutrophils (%) (Auto) , Lymphocytes (%) (Auto) , Monocytes (%) (Auto) , Eosinophils (%) (Auto) , Basophils (%) (Auto) , Differential Total Cells Counted 100, Neutrophils % (Manual) 68, Lymphocytes % (Manual) 20, Monocytes % (Manual) 5, Eosinophils % (Manual) 7H, Basophils % (Manual) 0, Band Neutrophils 0, Platelet Estimate Adequate, Platelet Morphology Normal, Hypochromasia 1+, Anisocytosis 1+, Sodium Level 149H, Potassium Level 4.1, Chloride Level 117H, Carbon Dioxide Level 23, Anion Gap 9, Blood Urea Nitrogen 37H, Creatinine 1.1, Estimat Glomerular Filtration Rate > 60, Glucose Level 98, Calcium Level 8.8, Total Bilirubin 1.0, Aspartate Amino Transf (AST/SGOT) 46H, Alanine Aminotransferase (ALT/SGPT) 54, Alkaline Phosphatase 377H, Total Protein 7.4, Albumin 2.3L, Globulin 5.1, Albumin/Globulin Ratio 0.5L 08/28/20 05:00: Urine Color Pale yellow, Urine Appearance Clear, Urine pH 5, Urine Specific [place] 1.005, Urine Protein 1+H, Urine Glucose (UA) Negative, Urine Ketones Negative, Urine Blood 1+H, Urine Nitrite Negative, Urine Bilirubin Negative, Urine Urobilinogen Normal, Urine Leukocyte Esterase 1+H, Urine RBC 0-2H, Urine WBC 0-2, Urine Squamous Epithelial Cells None, Urine Bacteria None Current Medications Medications (Trade) Dose Ordered Sig/Piedad Route PRN Reason Start Time Stop Time Status Last Admin Dose Admin Acetaminophen (Tylenol) 650 mg Q4H PRN GT Mild Pain (Pain Scale 1-3) 08/24/20 13:00 09/23/20 12:59 08/25/20 11:33 Acetaminophen (Tylenol) 650 mg Q6H PRN GT Temp >100.5 08/10/20 20:20 09/09/20 20:19 08/28/20 07:27 Cefepime HCl 2 gm/ Dextrose 55 ml @ 110 mls/hr Q12H IVPB 08/25/20 14:00 09/01/20 13:59 08/28/20 01:10 Chlorhexidine Gluconate (Christy-Hex 2%) 1 applic DAILY@2000 TOPIC 08/14/20 20:00 11/12/20 19:59 08/27/20 20:34 Dextrose 1,000 ml @ 75 mls/hr [id number] IV 08/28/20 07:15 09/27/20 07:14 08/28/20 07:39 Folic Acid (Folate) 1 mg DAILY GT 08/11/20 09:00 09/07/20 08:59 08/28/20 08:39 Heparin Sodium (Porcine) (Heparin 5000 units/ml) 5,000 units EVERY 12 HOURS SUBQ 08/10/20 21:00 09/22/20 20:59 08/28/20 08:41 Levetiracetam 100 ml @ 400 mls/hr Q12HR IVPB 08/14/20 10:00 11/12/20 09:59 08/28/20 08:38 Lorazepam (Ativan 2mg/ml 1ml) 1 mg Q4H PRN IV For Anxiety 08/26/20 07:00 09/02/20 06:59 08/28/20 11:39 Metoclopramide HCl (Reglan) 10 mg Q8H PRN IVP Nausea & Vomiting 08/26/20 11:15 09/25/20 11:14 08/27/20 20:46 Morphine Sulfate (Morphine Sulfate) 1 mg Q4HR PRN IVP Severe Pain 08/26/20 07:00 09/02/20 06:59 08/28/20 11:39 Multivitamins (Multivitamins) 1 tab DAILY GT 08/11/20 09:00 09/07/20 08:59 08/28/20 08:38 Pantoprazole (Protonix) 40 mg EVERY 12 HOURS IVP 08/13/20 22:15 09/12/20 22:14 08/28/20 08:39 Vancomycin HCl (Vanco pharmacy to dose) 1 ea DAILY PRN MISC Per rx protocol 08/25/20 11:15 09/24/20 11:14 Vancomycin HCl 1 gm/Dextrose 275 ml @ 183.708 mls/hr Q12H IVPB 08/27/20 02:00 09/01/20 01:59 08/28/20 01:10 Assessment/Plan Assessment/Plan Pulmonary CCM Progress Note 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 Port-A-Cath Status post removal of implanted right chest wall Port-A-Cath Sickle cell crisis Sickle cell anemia Chronic respiratory failure, ventilator dependent, with tracheostomy status Transaminitis Seizure disorder acute pneumonia leukocytosis recurrent sepsis PLAN care noted IV antibiotics per ID respiratory care as is TFN PRN per Hematology Ventilatory support- vent adjusted and now on volume ventilation SNF meds supportive care suction no wean planned monitor wbc per ID oxygen therapy and titrate prognosis guarded medications/laboratory data/nursing notes reviewed in detail note reviewed and edited care discussed with RN and RT Subjective Interval Events: stable overnight care noted labs still not improved ROS Limited/Unobtainable: Yes Condition: stable Objective Vital Signs Noted Objective: WDWN NAD reduced breath sounds bilaterally without rhonchi or wheeze [id number] without MRG NABS nontender GT no CCE reduced LOC Benson Holden MD Aug 28, 2020 12:19
--- NOTE | 2020-08-28 13:00 | NUR ---
NURSE NOTES: Spoke with Dr Castillo. He reported that he is aware of Hgb 6.5. He reported that he is not going to order transfusion for the low hgb as long as pt is stable otherwise.
--- NOTE | 2020-08-28 15:00 | NUR ---
NURSE NOTES: Spoke with Dr Castillo. Asked for increase in pain medication as pt pain is not controlled. Received order for Morphine 2mg Q4Hr PRN for severe pain. Order read back, verified, and placed.
--- NOTE | 2020-08-28 16:00 | NUR ---
NURSE NOTES: Pt vital signs remain stable. Pt continues to complain of pain. Will continue to administer pain medication and anxiety medication as ordered. Mentation remains unchanged. Pupils PERRLA. Pt moves all ext to pain. Peripheral pulses equal and strong. Pt remains intubated. Bilateral soft wrist restraint remain in place for impulsivity. Right upper arm PICC line dressing dry and intact. D5W at 75mL/hr running. Pt repositioned and this time. Bilateral arm and heel elevated. Rectal tube came out. Large liquid bowel movement noted. Bed bath, perineal care, and oral care performed. Rectal tube replaced. Overton in place and intact. Pale Yellow color urine noted. Bed in low position with bed alarm on and call light in reach. Will continue to monitor.
--- NOTE | 2020-08-28 16:34 | NUR ---
CASE MANAGEMENT:REVIEW 08/28/20 SI:MRSA AND SERRATIA SEPSIS. ASPIRATION PNA TRACH/VENT/GTUBE 98.1 70 14 133/48 100% ON VENT SUPPORT W/45% FIO2 WBC+24.9 H/H-6.5/19.0 BUN+37 IS: IV VANCOMYCIN Q12 IV CEFEPIME Q12 IVF@75/HR IV KEPPRA Q12 IV PROTONIX Q12 HEPARIN SQ Q IV MORPHINE Q4HRS PRN : ICU STATUS DCP: FROM [facility] PLAN: BLOOD CULTURE PRELIM (+) STREP SPECIES CONTINUE TO TITRATE FIO2
--- NOTE | 2020-08-28 16:51 | NUR ---
DISCHARGE PLANNING PATIENT HAS BEEN REFERRED TO [facility]
--- NOTE | 2020-08-28 18:00 | NUR ---
NURSE NOTES: Pt continues to complain of pain. Next dose of medication due at 1920. Will follow up. Pt repositioned and ET suction done at this time. VS stable. Will continue to monitor.
[2020-08-28] MEDS ORDERED: NS 275ml ONE (18:54)
--- NOTE | 2020-08-28 19:21 | NUR ---
HAND-OFF: Report given to ARLYN Feldman.
--- NOTE | 2020-08-28 19:30 | NUR ---
NURSE NOTES: Received report from ARLYN Crawford. patient in bed awake,alert watching TV, orally intubated Fi02 40% satting 100%. HOB elevated. no s/s of acute distress noted. no fever. Gt intact with 30cc residual, running Vital AF 1.2 at 70cc/hr. Overton draining. Rectal tube intact. Right upper arm PICC line intact no s/s of infiltration, infusing D5 1/2 NS with KCL 10mEq at 75cc/hr. on P200 mattress for wound management. Seizure precaution and Contact isolation maintained and observed. bilateral wrist restraint checked. will continue plan of care. Addendum: 08/28/20 at 8101 by MY GANDHI RN patient on D5W at 75cc/hr
[2020-08-28] MEDS: Dyna-Hex 2% Top Sol 2oz TOPIC SCH (20:40)
--- NOTE | 2020-08-28 20:51 | General Progress Note ---
Subjective Allergies: Coded Allergies: ADHESIVE TAPE (Verified Allergy, Unknown, 07/20/20) Uncoded Allergies: TAPE (Allergy, Unknown, 08/07/20) Subjective In ICU calm and comfortable tolerating feeds Objective Last 24 Hour Vital Signs Date Time Temp Pulse Resp B/P (MAP) Pulse Ox O2 Delivery O2 Flow Rate FiO2 08/28/20 20:00 40 08/28/20 19:30 99.3 08/28/20 19:26 78 15 40 08/28/20 19:00 94 18 131/56 (81) 100 08/28/20 18:00 85 15 146/62 (90) 100 08/28/20 17:00 78 14 144/59 (87) 100 08/28/20 16:13 75 15 109/64 100 08/28/20 16:00 40 08/28/20 16:00 82 17 138/51 (80) 100 08/28/20 16:00 85 08/28/20 16:00 Mechanical Ventilator Mechanical Ventilator 08/28/20 16:00 99.3 82 17 138/51 (80) 100 08/28/20 15:43 83 16 130/63 100 08/28/20 15:10 85 16 40 08/28/20 15:00 88 16 130/63 (85) 100 08/28/20 14:00 91 18 137/58 (84) 100 08/28/20 13:00 79 14 129/58 (81) 100 08/28/20 12:09 73 14 144/60 100 08/28/20 12:00 75 08/28/20 12:00 40 08/28/20 12:00 Mechanical Ventilator Mechanical Ventilator 08/28/20 12:00 98.3 77 15 144/60 (88) 100 08/28/20 11:39 73 17 136/54 100 08/28/20 11:10 70 13 40 08/28/20 11:00 68 13 136/54 (81) 100 08/28/20 10:30 40 08/28/20 10:00 74 15 122/47 (72) 100 08/28/20 09:00 70 13 128/48 (74) 100 08/28/20 08:00 98.1 70 14 133/48 (76) 100 08/28/20 08:00 67 08/28/20 08:00 Mechanical Ventilator Mechanical Ventilator 08/28/20 08:00 45 9/28/20 07:57 70 13 133/48 100 08/28/20 07:27 65 16 129/57 100 08/28/20 07:10 71 14 45 08/28/20 07:00 70 13 129/57 (81) 100 08/28/20 06:00 69 13 121/50 (73) 100 08/28/20 05:00 78 13 115/52 (73) 100 08/28/20 04:00 98.0 65 12 129/58 (81) 100 08/28/20 04:00 66 08/28/20 04:00 45 08/28/20 04:00 Mechanical Ventilator Mechanical Ventilator 08/28/20 03:00 67 12 136/53 (80) 100 08/28/20 02:37 80 14 45 08/28/20 02:26 80 14 112/71 100 08/28/20 02:26 98.4 08/28/20 02:00 77 15 112/71 (85) 100 08/28/20 01:56 70 12 114/53 100 08/28/20 01:00 70 12 114/53 (73) 100 08/28/20 00:00 45 08/28/20 00:00 98.4 66 12 129/57 (81) 100 08/28/20 00:00 Mechanical Ventilator Mechanical Ventilator 08/28/20 00:00 81 08/27/20 23:00 69 12 121/55 (77) 100 08/27/20 22:53 76 15 45 08/27/20 22:00 91 15 115/50 (71) 99 08/27/20 21:05 90 14 122/46 98 08/27/20 21:05 98.0 08/27/20 21:00 90 14 122/46 (71) 98 Intake and Output 08/27/20 08/28/20 19:00 07:00 Intake Total 2162.416 ml 2374.750 ml Output Total 730 ml 835 ml Balance 1432.416 ml 1539.750 ml Free Water 120 ml 50 ml IV Total 1552.416 ml 1684.750 ml Tube Feeding 490 ml 640 ml Output Urine Total 700 ml 785 ml Stool Total 30 ml 50 ml Laboratory Tests 08/28/20 04:40: White Blood Count 24.9*H, Red Blood Count 1.99L, Hemoglobin 6.5*L, Hematocrit 19.0L, Mean Corpuscular Volume 95, Mean Corpuscular Hemoglobin 32.6H, Mean Corpuscular Hemoglobin Concent 34.2, Red Cell Distribution Width 16.4H, Platelet Count 382, Mean Platelet Volume 8.7, Neutrophils (%) (Auto) , Lymphocytes (%) (Auto) , Monocytes (%) (Auto) , Eosinophils (%) (Auto) , Basophils (%) (Auto) , Differential Total Cells Counted 100, Neutrophils % (Manual) 68, Lymphocytes % (Manual) 20, Monocytes % (Manual) 5, Eosinophils % (Manual) 7H, Basophils % (Manual) 0, Band Neutrophils 0, Platelet Estimate Adequate, Platelet Morphology Normal, Hypochromasia 1+, Anisocytosis 1+, Sodium Level 149H, Potassium Level 4.1, Chloride Level 117H, Carbon Dioxide Level 23, Anion Gap 9, Blood Urea Nitrogen 37H, Creatinine 1.1, Estimat Glomerular Filtration Rate > 60, Glucose Level 98, Calcium Level 8.8, Total Bilirubin 1.0, Aspartate Amino Transf (AST/SGOT) 46H, Alanine Aminotransferase (ALT/SGPT) 54, Alkaline Phosphatase 377H, Total Protein 7.4, Albumin 2.3L, Globulin 5.1, Albumin/Globulin Ratio 0.5L 08/28/20 05:00: Urine Color Pale yellow, Urine Appearance Clear, Urine pH 5, Urine Specific [place] 1.005, Urine Protein 1+H, Urine Glucose (UA) Negative, Urine Ketones Negative, Urine Blood 1+H, Urine Nitrite Negative, Urine Bilirubin Negative, Urine Urobilinogen Normal, Urine Leukocyte Esterase 1+H, Urine RBC 0-2H, Urine WBC 0-2, Urine Squamous Epithelial Cells None, Urine Bacteria None 08/28/20 12:48: Vancomycin Level Trough 30.4H Height (Feet): 5 Height (Inches): 10.00 Weight (Pounds): 112 Objective Thin AA Man HEENT s/p craniotomy, (+) ETT neck (+) dressing Coarse BS, ronchi, tachypnic RR/tachy abd soft (+) GT no edema Assessment/Plan Status: stable, not improved Assessment/Plan: Assessment - respiratory distress - intubated - recent occluded GT - replaced - abnormal LFT - 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
--- NOTE | 2020-08-28 20:55 | NUR ---
NURSE NOTES: Noted patient moaning, anxious reposition patient in bed, TV provided, talk therapy provided not effective. Tylenol 650mg via GT and Ativan 1mg IVP given will recheck patient. Patient with 30cc Gt residual. HOB elevated. Reglan given.
--- NOTE | 2020-08-28 21:31 | Surgery Progress Note ---
Surgery Progress Note Subjective Additional Comments no acute events Objective Last 24 Hour Vital Signs Date Time Temp Pulse Resp B/P (MAP) Pulse Ox O2 Delivery O2 Flow Rate FiO2 08/28/20 20:56 78 15 131/56 100 08/28/20 20:00 40 08/28/20 19:30 99.3 08/28/20 19:26 78 15 40 08/28/20 19:00 94 18 131/56 (81) 100 08/28/20 18:00 85 15 146/62 (90) 100 08/28/20 17:00 78 14 144/59 (87) 100 08/28/20 16:13 75 15 109/64 100 08/28/20 16:00 40 08/28/20 16:00 82 17 138/51 (80) 100 08/28/20 16:00 85 08/28/20 16:00 Mechanical Ventilator Mechanical Ventilator 08/28/20 16:00 99.3 82 17 138/51 (80) 100 08/28/20 15:43 83 16 130/63 100 08/28/20 15:10 85 16 40 08/28/20 15:00 88 16 130/63 (85) 100 08/28/20 14:00 91 18 137/58 (84) 100 08/28/20 13:00 79 14 129/58 (81) 100 08/28/20 12:09 73 14 144/60 100 08/28/20 12:00 75 08/28/20 12:00 40 08/28/20 12:00 Mechanical Ventilator Mechanical Ventilator 08/28/20 12:00 98.3 77 15 144/60 (88) 100 08/28/20 11:39 73 17 136/54 100 08/28/20 11:10 70 13 40 08/28/20 11:00 68 13 136/54 (81) 100 08/28/20 10:30 40 08/28/20 10:00 74 15 122/47 (72) 100 08/28/20 09:00 70 13 128/48 (74) 100 08/28/20 08:00 98.1 70 14 133/48 (76) 100 08/28/20 08:00 67 08/28/20 08:00 Mechanical Ventilator Mechanical Ventilator 08/28/20 08:00 45 08/28/20 07:57 70 13 133/48 100 08/28/20 07:27 65 16 129/57 100 08/28/20 07:10 71 14 45 08/28/20 07:00 70 13 129/57 (81) 100 08/28/20 06:00 69 13 121/50 (73) 100 08/28/20 05:00 78 13 115/52 (73) 100 08/28/20 04:00 98.0 65 12 129/58 (81) 100 08/28/20 04:00 66 08/28/20 04:00 45 08/28/20 04:00 Mechanical Ventilator Mechanical Ventilator 08/28/20 03:00 67 12 136/53 (80) 100 08/28/20 02:37 80 14 45 08/28/20 02:26 80 14 112/71 100 08/28/20 02:26 98.4 08/28/20 02:00 77 15 112/71 (85) 100 08/28/20 01:56 70 12 114/53 100 08/28/20 01:00 70 12 114/53 (73) 100 08/28/20 00:00 45 08/28/20 00:00 98.4 66 12 129/57 (81) 100 08/28/20 00:00 Mechanical Ventilator Mechanical Ventilator 08/28/20 00:00 81 08/27/20 23:00 69 12 121/55 (77) 100 08/27/20 22:53 76 15 45 08/27/20 22:00 91 15 115/50 (71) 99 I&O Intake and Output 08/27/20 08/28/20 19:00 07:00 Intake Total 2162.416 ml 2374.750 ml Output Total 730 ml 835 ml Balance 1432.416 ml 1539.750 ml Free Water 120 ml 50 ml IV Total 1552.416 ml 1684.750 ml Tube Feeding 490 ml 640 ml Output Urine Total 700 ml 785 ml Stool Total 30 ml 50 ml Dressing: other Wound: other Cardiovascular: RSR Respiratory: decreased breath sounds Abdomen: non-tender, present bowel sounds Extremities: no edema, no tenderness, no cyanosis Laboratory Tests Test 08/28/20 04:40 08/28/20 05:00 08/28/20 12:48 White Blood Count 24.9 K/UL (4.8-10.8) *H Red Blood Count 1.99 M/UL (4.70-6.10) L Hemoglobin 6.5 G/DL (14.2-18.0) *L Hematocrit 19.0 % (42.0-52.0) L Mean Corpuscular Volume 95 FL (80-99) Mean Corpuscular Hemoglobin 32.6 PG (27.0-31.0) H Mean Corpuscular Hemoglobin Concent 34.2 G/DL (32.0-36.0) Red Cell Distribution Width 16.4 % (11.6-14.8) H Platelet Count 382 K/UL (150-450) Mean Platelet Volume 8.7 FL (6.5-10.1) Neutrophils (%) (Auto) % (45.0-75.0) Lymphocytes (%) (Auto) % (20.0-45.0) Monocytes (%) (Auto) % (1.0-10.0) Eosinophils (%) (Auto) % (0.0-3.0) Basophils (%) (Auto) % (0.0-2.0) Differential Total Cells Counted 100 Neutrophils % (Manual) 68 % (45-75) Lymphocytes % (Manual) 20 % (20-45) Monocytes % (Manual) 5 % (1-10) Eosinophils % (Manual) 7 % (0-3) H Basophils % (Manual) 0 % (0-2) Band Neutrophils 0 % (0-8) Platelet Estimate Adequate Platelet Morphology Normal Hypochromasia 1+ Anisocytosis 1+ Sodium Level 149 MMOL/L (136-145) H Potassium Level 4.1 MMOL/L (3.5-5.1) Chloride Level 117 MMOL/L (98-107) H Carbon Dioxide Level 23 MMOL/L (21-32) Anion Gap 9 mmol/L (5-15) Blood Urea Nitrogen 37 mg/dL (7-18) H Creatinine 1.1 MG/DL (0.55-1.30) Estimat Glomerular Filtration Rate > 60 mL/min (>60) Glucose Level 98 MG/DL (74-106) Calcium Level 8.8 MG/DL (8.5-10.1) Total Bilirubin 1.0 MG/DL (0.2-1.0) Aspartate Amino Transf (AST/SGOT) 46 U/L (15-37) H Alanine Aminotransferase (ALT/SGPT) 54 U/L (12-78) Alkaline Phosphatase 377 U/L (46-116) H Total Protein 7.4 G/DL (6.4-8.2) Albumin 2.3 G/DL (3.4-5.0) L Globulin 5.1 g/dL Albumin/Globulin Ratio 0.5 (1.0-2.7) L Urine Color Pale yellow Urine Appearance Clear Urine pH 5 (4.5-8.0) Urine Specific [place] 1.005 (1.005-1.035) Urine Protein 1+ (NEGATIVE) H Urine Glucose (UA) Negative (NEGATIVE) Urine Ketones Negative (NEGATIVE) Urine Blood 1+ (NEGATIVE) H Urine Nitrite Negative (NEGATIVE) Urine Bilirubin Negative (NEGATIVE) Urine Urobilinogen Normal MG/DL (0.0-1.0) Urine Leukocyte Esterase 1+ (NEGATIVE) H Urine RBC 0-2 /HPF (0 - 0) H Urine WBC 0-2 /HPF (0 - 0) Urine Squamous Epithelial Cells None /LPF (NONE/OCC) Urine Bacteria None /HPF (NONE) Vancomycin Level Trough 30.4 ug/mL (5.0-12.0) H Plan Problems: (1) Pneumonia (2) Sickle cell anemia (3) Tachycardia (4) Severe sepsis (5) Sickle cell crisis (6) Sepsis Assessment & Plan: 35-year-old male sickle cell multiple comorbidities history of craniotomy trach feeding tube prior port infected removed see prior admission and consult and operative notes. Currently presents with significant leukocytosis fevers hypotension in intensive care unit wound site evaluated unlikely etiology. Trach evaluated may consider changing. LFTs noted elevated. Ultrasound ordered pending results trend labs continue IV antibiotics appreciate infectious disease input will follow with recommendations thank you for let me participate in patient's care KUB and US noted labs reviewed transfuse prbc prn trach change peg changed line out picc placed persistent wbc h/h noted anemia ss better since new trach Shiley [address] secretions manageable Trach replaced at bedside 925 for malpositioning it was identified he does have a false track as well. Will ensure trach is in correct positioning daily every shift trach not stable removed and intubated 08/25 on ett vent will need trach revision discussed with mother and medical teams pulmonary arteries: Evaluation for pulmonary embolus is limited due to breathing motion artifact. No central pulmonary emboli are identified. Aorta: No acute findings. No thoracic aortic aneurysm. Lungs: There are moderately consolidating infiltrates identified in both lower lobes dependently with mild additional patchy infiltrates dependently in both upper lobes. The findings are consistent with bilateral nonspecific pneumonia. Aspiration pneumonia could give this appearance. The infiltrates are only somewhat typical of Covid 19. Confidence is immediate. Pleural space: Unremarkable. No significant effusion. No pneumothorax. Heart: Unremarkable. No cardiomegaly. No significant pericardial effusion. No evidence of RV dysfunction. Bones/joints: No acute fracture. No dislocation. Soft tissues: Unremarkable. Lymph nodes: Unremarkable. No enlarged lymph nodes. Tubes, lines and devices: There is a tracheostomy tube in good position. IMPRESSION: 1. There are moderately consolidating infiltrates identified in both lower lobes dependently with mild additional patchy infiltrates dependently in both upper lobes. The findings are consistent with bilateral nonspecific pneumonia. Aspiration pneumonia could give this appearance. The infiltrates are only somewhat typical of Covid 19. Confidence is immediate. 2. Evaluation for pulmonary embolus is limited due to breathing motion artifact. No central pulmonary emboli are identified. The liver is homogeneous. We cannot identify a normal spleen. There is dense crescentic calcification in the left upper quadrant at the expected location of the spleen. Gallbladder is absent. The pancreas is unremarkable. Adrenals are normal in morphology. There is a small punctate cortical calcification left kidney. No hydronephrosis bilaterally There is a G-tube in place. Gas-filled bowel loops identified throughout the abdomen and pelvis. No discrete transition point or obstruction. Appendix partially visualized. There is some free fluid in the pelvis. There is no free air. There is a mildly prominent lymph nodes noted in the upper to mid retroperitoneum noted of undetermined etiology or significance. Rivera catheter noted in the bladder. The reservoir for the penile prosthesis is identified in the left lower pelvis. There is a right femoral venous catheter in place. Diffuse sclerosis of the bony pelvis and hips noted of undetermined etiology. IMPRESSION: BILATERAL LOWER LOBE PNEUMONIAS. ALSO SOME HAZY INFILTRATES IN THE UPPER LOBES. A NORMAL SPLEEN IS NOT VISUALIZED. THERE IS A DENSE CRESCENTIC CALCIFICATION LEFT UPPER QUADRANT AT THE EXPECTED LOCATION OF THE SPLEEN. 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 PUNCTATE CORTICAL CALCIFICATION LEFT KIDNEY. NO HYDRONEPHROSIS. PROMINENT LYMPH NODES IN THE UPPER TO MID RETROPERITONEUM OF UNDETERMINED ETIOLOGY OR SIGNIFICANCE. G-TUBE, RIVERA CATHETER, RIGHT FEMORAL CATHETER AND PENILE PROSTHESIS NOTED IN PLACE. MILD DIFFUSE SCLEROSIS OF THE BONY PELVIS AND BOTH HIPS OF UNDETERMINED ETIOLOGY. QUESTION HISTORY OF RENAL OSTEODYSTROPHY. There is a large craniectomy defect in the right frontal temporal region. Diffuse age-related volume loss demonstrated. 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 No definite acute infa rct seen. There is no hemorrhage, mass effect or shift. Ventricles and cisterns as well as brainstem and posterior fossa appear unremarkable. The sellar region is normal. Sinuses, mastoid air cells and bony calvarium appear intact. IMPRESSION: Large right frontotemporal craniectomy defect. 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 No definite acute intracranial abnormality. (7) Port-A-Cath in place Assessment & Plan: prior removal for infection site okay dressings changed no active infection from wound picc Harman Zhao Aug 28, 2020 21:31
--- NOTE | 2020-08-28 22:52 | NUR ---
NURSE NOTES: Patient mother called and updated regarding patient condition.
[2020-08-29] VITALS (23 sets, daily range): BP systolic 118–148; BP diastolic 43–81
[2020-08-29] MEDS: Morphine Sulfate 2mg/ml Inj(IV/IM USE ONLY) IVP PRN ×5 (00:33→20:33)
--- NOTE | 2020-08-29 00:33 | NUR ---
NURSE NOTES: Patient moaning with facial grimaces, restless and kicking per patient he is in pain . repositioned in bed with pillow support not effective. Morphine 2mg given IVP for severe pain. will recheck patient. call light within easy reach..
[2020-08-29] MEDS: Cefepime HCl 2 GM in D5W 55 ML IVPB SCH ×2 (01:22→13:43)
--- NOTE | 2020-08-29 02:00 | NUR ---
NURSE NOTES: Bed bath given tolerated well.
[2020-08-29] MEDS: LORazepam Inj 2mg/ml 1ml IV PRN ×3 (02:54→20:36)
--- NOTE | 2020-08-29 02:54 | NUR ---
NURSE NOTES: patient with episode of anxiety kicking, biting tubing. encouraged patient to make needs, fers and feelings to staff,talk therapy provided not effective Ativan 1mg IVP given will continue to monitor plan of care.
[2020-08-29 05:32] LABS: HEMATOCRIT 19.3 % (42.0-52.0); MEAN CORPUSCULAR VOLUME 95 FL (80-99); PLATELET COUNT 363 K/UL (150-450); RED BLOOD COUNT 2.02 M/UL (4.70-6.10); RED CELL DISTRIBUTION WIDTH 16.3 % (11.6-14.8)
[2020-08-29 05:56] LABS: HEMOGLOBIN 6.7 G/DL (14.2-18.0); WHITE BLOOD COUNT 24.3 K/UL (4.8-10.8)
--- NOTE | 2020-08-29 06:32 | NUR ---
NURSE NOTES: Seen and examined by Dr. Celaya and Dr. Castillo
[2020-08-29 06:42] LABS: ANION GAP 11 mmol/L (5-15); BLOOD UREA NITROGEN 38 mg/dL (7-18); CALCIUM 9.2 MG/DL (8.5-10.1); CARBON DIOXIDE 22 MMOL/L (21-32); CHLORIDE 111 MMOL/L (98-107); POTASSIUM 4.2 MMOL/L (3.5-5.1); SODIUM 144 MMOL/L (136-145)
--- NOTE | 2020-08-29 07:01 | Hematology/Onc Progress Note ---
Assessment/Plan Assessment/Plan Assessment and Recs # Sickle cell crisis noted upon admission, with hx of sickle cell anemia --> hgb 6.5-->7.1-->6.6->>>>7.3-->7.1 -->6.7-->6.5-->6.8->7-->7.2->6.5-->6.7 --> 1 unit prbc on 07/23, 1 unit 08/27 --> ivfs have been started --> anemia panel ordered, with elev ferritin --> recommend to consider hydrea when discharged if stable --> likely does have mild hemolysis --> hgb electrophoresis show evidence of sickle cell trait --> FLOW CYTOMETRY IS NEGATIVE # Hyperferritinemia with elevated ferritin that was noted --> likely consider exjade once discharged though at this time not limiting --> ferritin can >2000 with recurrent transfusions --> trend over time, for EOD observe # Leukocytosis poa with Severe sepsis due to line infection --> abx: vancomycin-->cefepime/colistin-->cefepime --> wbc 25-->31-->29-->25-->37--->31-->24 --> FLOW CYTOMETRY NEG # Respiratory failure s/p Ventilator dependent --> as per pulm, vent adjustment # Port-A-Cath in place --> s/p abx --> s/p permacath removal # Transaminitis -->liver function elevated --> per gi # Dt ppx heparin sq The timing of this note does not necessarily reflect the time of the patient was seen. Greatly appreciate consultation. Subjective HEENT: Denies: no symptoms, eye pain, blurred vision, tearing, double vision, ear pain, ear discharge, nose pain, nose congestion, throat pain, throat swelling, mouth pain, mouth swelling, other Respiratory: Denies: no symptoms, cough, shortness of breath, SOB with excertion, SOB at rest, sputum, wheezing, other Neurologic/Psychiatric: Denies: no symptoms, anxiety, depressed, emotional problems, headache, numbness, paresthesia, pre-existing deficit, seizure, tingling, tremors, weakness, other Endocrine: Denies: no symptoms, excessive sweating, flushing, intolerance to cold, intolerance to heat, increased hunger, increased thirst, increased urine, unexplained weight gain, unexplained weight loss, other Hematologic/Lymphatic: Denies: no symptoms, anemia, easy bleeding, easy bruising, adenopathy, other Allergies: Coded Allergies: ADHESIVE TAPE (Verified Allergy, Unknown, 07/20/20) Uncoded Allergies: TAPE (Allergy, Unknown, 08/07/20) Subjective 08/19 no acute events, vent, iv abx, labs reviewed 08/20 labs reviewed, seen by Dr. Celaya and mychal Rn, holding off prbc 08/21 remains on abx with persistently elev wbc, on abx broad spectrum 08/22 labs reviewed, no bleeding, meds noted, wbc still 25k, hgb 6.8, transfuse pr 08/23 cbc has been ordered, meds noted, on cefepime, have dw path is flow back 08/24 hob is elevated, labs noted, hgb 7, consider for transfusions soon, wbc is better 08/25 labs are reviewed, wbc is worse, flow was done and is negative 08/27 is in the icu, labs noted, on cefepime and vanc, wbc 31 08/29 labs reviewed, hgb 6.7, mychal rn Francia in am, no bleeding, seen with Belia Objective Objective Current Medications Medications (Trade) Dose Ordered Sig/Piedad Route PRN Reason Start Time Stop Time Status Last Admin Dose Admin Acetaminophen (Tylenol) 650 mg Q4H PRN GT Mild Pain (Pain Scale 1-3) 08/24/20 13:00 09/23/20 12:59 08/28/20 13:40 Acetaminophen (Tylenol) 650 mg Q6H PRN GT Temp >100.5 08/10/20 20:20 09/09/20 20:19 08/28/20 20:55 Cefepime HCl 2 gm/ Dextrose 55 ml @ 110 mls/hr Q12H IVPB 08/25/20 14:00 09/01/20 13:59 08/29/20 01:22 Chlorhexidine Gluconate (Christy-Hex 2%) 1 applic DAILY@2000 TOPIC 08/14/20 20:00 11/12/20 19:59 08/28/20 20:40 Dextrose 1,000 ml @ 75 mls/hr [id number] IV 08/28/20 07:15 09/27/20 07:14 08/28/20 19:34 Folic Acid (Folate) 1 mg DAILY GT 08/11/20 09:00 09/07/20 08:59 08/28/20 08:39 Heparin Sodium (Porcine) (Heparin 5000 units/ml) 5,000 units EVERY 12 HOURS SUBQ 08/10/20 21:00 09/22/20 20:59 08/28/20 08:41 Levetiracetam 100 ml @ 400 mls/hr Q12HR IVPB 08/14/20 10:00 11/12/20 09:59 08/28/20 20:40 Lorazepam (Ativan 2mg/ml 1ml) 1 mg Q4H PRN IV For Anxiety 08/26/20 07:00 09/02/20 06:59 08/29/20 02:54 Metoclopramide HCl (Reglan) 10 mg Q8H PRN IVP Nausea & Vomiting 08/26/20 11:15 09/25/20 11:14 08/27/20 20:46 Morphine Sulfate (Morphine Sulfate) 1 mg Q4HR PRN IVP Moderate Pain (Pain Scale 4-6) 08/26/20 07:00 09/02/20 06:59 08/28/20 11:39 Morphine Sulfate (Morphine Sulfate) 2 mg Q4H PRN IVP Severe Pain (Pain Scale 7-10) 08/28/20 15:00 09/04/20 14:59 08/29/20 05:05 Multivitamins (Multivitamins) 1 tab DAILY GT 08/11/20 09:00 09/07/20 08:59 08/28/20 08:38 Pantoprazole (Protonix) 40 mg EVERY 12 HOURS IVP 08/13/20 22:15 09/12/20 22:14 08/28/20 20:40 Vancomycin HCl (Vanco pharmacy to dose) 1 ea DAILY PRN MISC Per rx protocol 08/25/20 11:15 09/24/20 11:14 Vancomycin HCl 500 mg/Dextrose 110 ml @ 110 mls/hr Q12HR IVPB 08/29/20 09:00 09/03/20 08:59 Last 24 Hour Vital Signs Date Time Temp Pulse Resp B/P (MAP) Pulse Ox O2 Delivery O2 Flow Rate FiO2 08/29/20 06:00 77 12 126/57 (80) 100 08/29/20 05:35 99.0 08/29/20 05:00 77 14 139/71 (93) 100 08/29/20 04:00 40 08/29/20 04:00 98.8 79 13 142/64 (90) 100 08/29/20 04:00 Mechanical Ventilator Mechanical Ventilator 08/29/20 04:00 65 08/29/20 03:52 80 13 40 08/29/20 03:24 83 14 131/58 100 08/29/20 03:00 92 18 128/64 (85) 100 08/29/20 02:54 83 14 131/58 100 08/29/20 02:00 77 14 135/61 (85) 100 08/29/20 01:03 99.0 08/29/20 01:00 83 14 131/58 (82) 100 08/29/20 00:00 81 08/29/20 00:00 Mechanical Ventilator Mechanical Ventilator 08/29/20 00:00 98.4 71 14 128/51 (76) 100 08/29/20 00:00 40 08/28/20 23:00 76 13 134/56 (82) 100 08/28/20 22:59 77 14 40 08/28/20 22:00 86 15 132/59 (83) 100 08/28/20 21:26 89 18 139/58 100 08/28/20 21:25 99.0 08/28/20 21:00 89 18 139/58 (85) 100 08/28/20 20:56 78 15 131/56 100 08/28/20 20:00 99.0 81 18 143/68 (93) 100 08/28/20 20:00 40 08/28/20 20:00 85 08/28/20 20:00 Mechanical Ventilator Mechanical Ventilator 08/28/20 19:30 99.3 08/28/20 19:26 78 15 40 08/28/20 19:00 94 18 131/56 (81) 100 08/28/20 18:00 85 15 146/62 (90) 100 08/28/20 17:00 78 14 144/59 (87) 100 08/28/20 16:13 75 15 109/64 100 08/28/20 16:00 40 08/28/20 16:00 82 17 138/51 (80) 100 08/28/20 16:00 85 08/28/20 16:00 Mechanical Ventilator Mechanical Ventilator 08/28/20 16:00 99.3 82 17 138/51 (80) 100 08/28/20 15:43 83 16 130/63 100 08/28/20 15:10 85 16 40 08/28/20 15:00 88 16 130/63 (85) 100 08/28/20 14:00 91 18 137/58 (84) 100 08/28/20 13:00 79 14 129/58 (81) 100 08/28/20 12:09 73 14 144/60 100 08/28/20 12:00 75 08/28/20 12:00 40 08/28/20 12:00 Mechanical Ventilator Mechanical Ventilator 08/28/20 12:00 98.3 77 15 144/60 (88) 100 08/28/20 11:39 73 17 136/54 100 08/28/20 11:10 70 13 40 08/28/20 11:00 68 13 136/54 (81) 100 08/28/20 10:30 40 08/28/20 10:00 74 15 122/47 (72) 100 08/28/20 09:00 70 13 128/48 (74) 100 08/28/20 08:00 98.1 70 14 133/48 (76) 100 08/28/20 08:00 67 08/28/20 08:00 Mechanical Ventilator Mechanical Ventilator 08/28/20 08:00 45 08/28/20 07:57 70 13 133/48 100 08/28/20 07:27 65 16 129/57 100 08/28/20 07:10 71 14 45 08/28/20 07:00 70 13 129/57 (81) 100 08/28/20 06:00 69 13 121/50 (73) 100 08/28/20 05:00 78 13 115/52 (73) 100 08/28/20 04:00 98.0 65 12 129/58 (81) 100 08/28/20 04:00 66 08/28/20 04:00 45 08/28/20 04:00 Mechanical Ventilator Mechanical Ventilator 08/28/20 03:00 67 12 136/53 (80) 100 08/28/20 02:37 80 14 45 08/28/20 02:26 80 14 112/71 100 08/28/20 02:26 98.4 08/28/20 02:00 77 15 112/71 (85) 100 08/28/20 01:56 70 12 114/53 100 08/28/20 01:00 70 12 114/53 (73) 100 08/28/20 00:00 45 08/28/20 00:00 98.4 66 12 129/57 (81) 100 08/28/20 00:00 Mechanical Ventilator Mechanical Ventilator 08/28/20 00:00 81 08/27/20 23:00 69 12 121/55 (77) 100 08/27/20 22:53 76 15 45 08/27/20 22:00 91 15 115/50 (71) 99 08/27/20 21:05 90 14 122/46 98 08/27/20 21:05 98.0 08/27/20 21:00 90 14 122/46 (71) 98 08/27/20 20:35 72 16 135/54 100 08/27/20 20:00 Mechanical Ventilator Mechanical Ventilator 08/27/20 20:00 100 08/27/20 20:00 45 08/27/20 20:00 98.0 72 15 135/54 (81) 100 08/27/20 19:32 67 15 55 08/27/20 19:00 74 17 112/53 (72) 100 08/27/20 18:00 98.7 73 13 126/47 (73) 100 08/27/20 17:00 80 13 123/51 (75) 100 08/27/20 16:00 55 08/27/20 16:00 67 15 110/52 (71) 100 08/27/20 16:00 73 08/27/20 16:00 Mechanical Ventilator Mechanical Ventilator 08/27/20 15:20 84 14 55 08/27/20 15:00 83 13 127/54 (78) 100 08/27/20 14:28 98.0 08/27/20 14:27 80 14 115/52 100 08/27/20 14:00 98.9 79 13 115/52 (73) 100 08/27/20 13:57 81 14 111/51 100 08/27/20 13:00 80 14 111/51 (71) 100 08/27/20 12:09 77 13 114/46 (68) 100 08/27/20 12:00 Mechanical Ventilator Mechanical Ventilator 08/27/20 12:00 55 08/27/20 12:00 72 08/27/20 11:13 95 15 55 08/27/20 11:00 79 13 117/47 (70) 100 08/27/20 10:00 88 13 117/56 (76) 100 08/27/20 09:44 98.0 08/27/20 09:43 84 14 108/48 100 08/27/20 09:13 91 14 120/58 100 08/27/20 09:00 98.7 92 16 108/48 (68) 90 08/27/20 08:00 91 08/27/20 08:00 Mechanical Ventilator Mechanical Ventilator 08/27/20 08:00 90 14 120/58 (78) 100 08/27/20 08:00 55 08/27/20 07:17 102 15 55 Intake and Output 08/28/20 08/29/20 18:59 06:59 Intake Total 2000.0 ml 2467 ml Output Total 1515 ml 1620 ml Balance 485.0 ml 847 ml Free Water 80 ml 200 ml IV Total 1130.0 ml 1367 ml Tube Feeding 790 ml 840 ml Other 60 ml Output Urine Total 1465 ml 1545 ml Stool Total 50 ml 75 ml # Bowel Movements 1 3 Labs Test 08/26/20 07:30 08/27/20 00:40 08/27/20 04:30 08/28/20 04:40 Arterial Blood pH 7.507 (7.350-7.450) Arterial Blood Partial Pressure CO2 27.0 mmHg (35.0-45.0) Arterial Blood Partial Pressure O2 57.3 mmHg (75.0-100.0) Arterial Blood HCO3 20.9 mmol/L (22.0-26.0) Arterial Blood Oxygen Saturation 90.2 % (95-100) Arterial Blood Base Excess -1.7 (-2-2) Iglesia Test Positive Vancomycin Level Trough 14.4 ug/mL (5.0-12.0) White Blood Count 30.8 K/UL (4.8-10.8) 24.9 K/UL (4.8-10.8) Red Blood Count 2.07 M/UL (4.70-6.10) 1.99 M/UL (4.70-6.10) Hemoglobin 6.5 G/DL (14.2-18.0) 6.5 G/DL (14.2-18.0) Hematocrit 19.3 % (42.0-52.0) 19.0 % (42.0-52.0) Mean Corpuscular Volume 93 FL (80-99) 95 FL (80-99) Mean Corpuscular Hemoglobin 31.2 PG (27.0-31.0) 32.6 PG (27.0-31.0) Mean Corpuscular Hemoglobin Concent 33.4 G/DL (32.0-36.0) 34.2 G/DL (32.0-36.0) Red Cell Distribution Width 16.9 % (11.6-14.8) 16.4 % (11.6-14.8) Platelet Count 403 K/UL (150-450) 382 K/UL (150-450) Mean Platelet Volume 8.4 FL (6.5-10.1) 8.7 FL (6.5-10.1) Neutrophils (%) (Auto) % (45.0-75.0) % (45.0-75.0) Lymphocytes (%) (Auto) % (20.0-45.0) % (20.0-45.0) Monocytes (%) (Auto) % (1.0-10.0) % (1.0-10.0) Eosinophils (%) (Auto) % (0.0-3.0) % (0.0-3.0) Basophils (%) (Auto) % (0.0-2.0) % (0.0-2.0) Differential Total Cells Counted 100 100 Neutrophils % (Manual) 74 % (45-75) 68 % (45-75) Lymphocytes % (Manual) 8 % (20-45) 20 % (20-45) Monocytes % (Manual) 9 % (1-10) 5 % (1-10) Eosinophils % (Manual) 8 % (0-3) 7 % (0-3) Basophils % (Manual) 1 % (0-2) 0 % (0-2) Band Neutrophils 0 % (0-8) 0 % (0-8) Platelet Estimate Adequate Adequate Platelet Morphology Normal Normal Hypochromasia 4+ 1+ Anisocytosis 1+ 1+ Sodium Level 148 MMOL/L (136-145) 149 MMOL/L (136-145) Potassium Level 4.0 MMOL/L (3.5-5.1) 4.1 MMOL/L (3.5-5.1) Chloride Level 117 MMOL/L (98-107) 117 MMOL/L (98-107) Carbon Dioxide Level 22 MMOL/L (21-32) 23 MMOL/L (21-32) Anion Gap 9 mmol/L (5-15) 9 mmol/L (5-15) Blood Urea Nitrogen 45 mg/dL (7-18) 37 mg/dL (7-18) Creatinine 1.2 MG/DL (0.55-1.30) 1.1 MG/DL (0.55-1.30) Estimat Glomerular Filtration Rate > 60 mL/min (>60) > 60 mL/min (>60) Glucose Level 102 MG/DL (74-106) 98 MG/DL (74-106) Calcium Level 8.6 MG/DL (8.5-10.1) 8.8 MG/DL (8.5-10.1) Total Bilirubin 1.0 MG/DL (0.2-1.0) 1.0 MG/DL (0.2-1.0) Aspartate Amino Transf (AST/SGOT) 55 U/L (15-37) 46 U/L (15-37) Alanine Aminotransferase (ALT/SGPT) 66 U/L (12-78) 54 U/L (12-78) Alkaline Phosphatase 414 U/L (46-116) 377 U/L (46-116) Total Protein 7.7 G/DL (6.4-8.2) 7.4 G/DL (6.4-8.2) Albumin 2.5 G/DL (3.4-5.0) 2.3 G/DL (3.4-5.0) Globulin 5.2 g/dL 5.1 g/dL Albumin/Globulin Ratio 0.5 (1.0-2.7) 0.5 (1.0-2.7) Test 08/28/20 05:00 08/28/20 12:48 08/29/20 03:00 Urine Color Pale yellow Urine Appearance Clear Urine pH 5 (4.5-8.0) Urine Specific Pender 1.005 (1.005-1.035) Urine Protein 1+ (NEGATIVE) Urine Glucose (UA) Negative (NEGATIVE) Urine Ketones Negative (NEGATIVE) Urine Blood 1+ (NEGATIVE) Urine Nitrite Negative (NEGATIVE) Urine Bilirubin Negative (NEGATIVE) Urine Urobilinogen Normal MG/DL (0.0-1.0) Urine Leukocyte Esterase 1+ (NEGATIVE) Urine RBC 0-2 /HPF (0 - 0) Urine WBC 0-2 /HPF (0 - 0) Urine Squamous Epithelial Cells None /LPF (NONE/OCC) Urine Bacteria None /HPF (NONE) Vancomycin Level Trough 30.4 ug/mL (5.0-12.0) White Blood Count 24.3 K/UL (4.8-10.8) Red Blood Count 2.02 M/UL (4.70-6.10) Hemoglobin 6.7 G/DL (14.2-18.0) Hematocrit 19.3 % (42.0-52.0) Mean Corpuscular Volume 95 FL (80-99) Mean Corpuscular Hemoglobin 33.0 PG (27.0-31.0) Mean Corpuscular Hemoglobin Concent 34.6 G/DL (32.0-36.0) Red Cell Distribution Width 16.3 % (11.6-14.8) Platelet Count 363 K/UL (150-450) Mean Platelet Volume 7.9 FL (6.5-10.1) Neutrophils (%) (Auto) % (45.0-75.0) Lymphocytes (%) (Auto) % (20.0-45.0) Monocytes (%) (Auto) % (1.0-10.0) Eosinophils (%) (Auto) % (0.0-3.0) Basophils (%) (Auto) % (0.0-2.0) Sodium Level 144 MMOL/L (136-145) Potassium Level 4.2 MMOL/L (3.5-5.1) Chloride Level 111 MMOL/L (98-107) Carbon Dioxide Level 22 MMOL/L (21-32) Anion Gap 11 mmol/L (5-15) Blood Urea Nitrogen 38 mg/dL (7-18) Creatinine 1.0 MG/DL (0.55-1.30) Estimat Glomerular Filtration Rate > 60 mL/min (>60) Glucose Level 88 MG/DL (74-106) Calcium Level 9.2 MG/DL (8.5-10.1) Random Vancomycin Level 20.4 ug/mL Height (Feet): 5 Height (Inches): 10.00 Weight (Pounds): 112 Objective Physical Exam General: alert, Chronically Ill Head: other - Large right-sided craniotomy defect well-heale ++, tracheotomy/vent Respiratory: crackles, rales, other - right side chest wall tenderness Cardiovascular: tachycardia Gastrointestinal: normal inspection, soft, gt++ Musk: decreased range of motion, other - atrophic, motor weakness Neurologic: alert, motor weakness, other - left hemineglect Psychiatric: normal inspection Skin: no rash : garcia++ Roshan Castillo MD Aug 29, 2020 07:01
--- NOTE | 2020-08-29 07:28 | NUR ---
NURSE HAND-OFF REPORT: Latest Vital Signs: Temperature 99.0 , Pulse 75 , B/P 118 /46 , Respiratory Rate 14 , O2 SAT 99 , Mechanical Ventilator, O2 Flow Rate . Vital Sign Comment: [] EKG Rhythm: Sinus Rhythm Rhythm change?: N MD Notified?: MD Response: Latest Stevens Fall Score: 55 Fall Risk: High Risk Safety Measures: Call light Within Reach, Bed Alarm Zone 2, Side Rails Side Rails x2, Bed position Low and Locked. Fall Precautions: Yellow Socks Yellow Gown Door Sign Patient Fall Education Report given to [Peggy STODDARD].
--- NOTE | 2020-08-29 07:29 | NUR ---
Pt received from ARLYN Feldman. Pt is asleep- in no distress; opens eyes spontaneously; bilat pupils 3 mm with sluggish rxn to light. Pt is SR to quality assurance monitor final with 2+ radial and dorsalis pedis pulses. Pt is afebrile at this time - mechanically ventilated with a 7 ETT noted 23 cm at the lip with the following settings: AC 12 TV 500 FiO2 40% Peep 0. Bilat lower lung lobes noted diminished upon auscultation. Upper lung lobes are CTA. Abd is flat, soft, and non-tender, with active bowel sounds to all quadrant. Rectal tube noted draining brown, liquid stool. GT noted running Vital AF 1.2 at 70 cc/hr. No gastric residuals noted at this time. F/C noted draining clear, yellow urine. Skin alterations noted. Pt has a SHER PICC with dry and intact dressing running D5W at 75 cc/hr. Bed in lowest position, alarm on, side rails up x 2 and padded per seizure precaution, call light within reach, SCDs on bilat lower extremities. Will continue to monitor. Per ARLYN Feldman, Dr Csatillo aware of Hgb 6.7 today - no order received to transfuse blood. (order noted to notify Dr Lyons for a Hgb< 6.3).
--- NOTE | 2020-08-29 08:00 | NUR ---
NURSE NOTES: Pt repositioned; oral care provided. No distress noted. Dr Stiles assessing pt at bedside.
--- NOTE | 2020-08-29 08:18 | Critical Care Progress Note ---
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 Port-A-Cath Status post removal of implanted right chest wall Port-A-Cath Sickle cell crisis Sickle cell anemia Chronic respiratory failure, ventilator dependent, with tracheostomy status Transaminitis Seizure disorder acute pneumonia leukocytosis recurrent sepsis PLAN care noted transfuse per heme IV antibiotics per ID respiratory care as is Ventilatory support- volume ventilation SNF meds supportive care suction no wean planned monitor wbc per ID oxygen therapy and titrate prognosis guarded medications/laboratory data/nursing notes reviewed in detail note reviewed and edited care discussed with RN and RT Critical Care - Subjective ROS Limited/Unobtainable: Yes Condition: critical EKG Rhythm: Sinus Rhythm Residuals: minimal Tube Feeding Tolerated: yes I&O: Intake and Output 08/28/20 08/29/20 18:59 06:59 Intake Total 2000.0 ml 2467 ml Output Total 1515 ml 1620 ml Balance 485.0 ml 847 ml Free Water 80 ml 200 ml IV Total 1130.0 ml 1367 ml Tube Feeding 790 ml 840 ml Other 60 ml Output Urine Total 1465 ml 1545 ml Stool Total 50 ml 75 ml # Bowel Movements 1 3 Critical Care - Objective ET-Tube: 7.0 ET Position: 23 Last 24 Hour Vital Signs Date Time Temp Pulse Resp B/P (MAP) Pulse Ox O2 Delivery O2 Flow Rate FiO2 08/29/20 07:00 75 14 118/46 (70) 99 08/29/20 06:00 77 12 126/57 (80) 100 08/29/20 05:35 99.0 08/29/20 05:00 77 14 139/71 (93) 100 08/29/20 04:00 40 08/29/20 04:00 98.8 79 13 142/64 (90) 100 08/29/20 04:00 Mechanical Ventilator Mechanical Ventilator 08/29/20 04:00 65 08/29/20 03:52 80 13 40 08/29/20 03:24 83 14 131/58 100 08/29/20 03:00 92 18 128/64 (85) 100 08/29/20 02:54 83 14 131/58 100 08/29/20 02:00 77 14 135/61 (85) 100 08/29/20 01:03 99.0 08/29/20 01:00 83 14 131/58 (82) 100 08/29/20 00:00 81 08/29/20 00:00 Mechanical Ventilator Mechanical Ventilator 08/29/20 00:00 98.4 71 14 128/51 (76) 100 08/29/20 00:00 40 08/28/20 23:00 76 13 134/56 (82) 100 08/28/20 22:59 77 14 40 08/28/20 22:00 86 15 132/59 (83) 100 08/28/20 21:26 89 18 139/58 100 08/28/20 21:25 99.0 08/28/20 21:00 89 18 139/58 (85) 100 08/28/20 20:56 78 15 131/56 100 08/28/20 20:00 99.0 81 18 143/68 (93) 100 08/28/20 20:00 40 08/28/20 20:00 85 08/28/20 20:00 Mechanical Ventilator Mechanical Ventilator 08/28/20 19:30 99.3 08/28/20 19:26 78 15 40 08/28/20 19:00 94 18 131/56 (81) 100 08/28/20 18:00 85 15 146/62 (90) 100 08/28/20 17:00 78 14 144/59 (87) 100 08/28/20 16:13 75 15 109/64 100 08/28/20 16:00 40 08/28/20 16:00 82 17 138/51 (80) 100 08/28/20 16:00 85 08/28/20 16:00 Mechanical Ventilator Mechanical Ventilator 08/28/20 16:00 99.3 82 17 138/51 (80) 100 08/28/20 15:43 83 16 130/63 100 08/28/20 15:10 85 16 40 08/28/20 15:00 88 16 130/63 (85) 100 08/28/20 14:00 91 18 137/58 (84) 100 08/28/20 13:00 79 14 129/58 (81) 100 08/28/20 12:09 73 14 144/60 100 08/28/20 12:00 75 08/28/20 12:00 40 08/28/20 12:00 Mechanical Ventilator Mechanical Ventilator 08/28/20 12:00 98.3 77 15 144/60 (88) 100 08/28/20 11:39 73 17 136/54 100 08/28/20 11:10 70 13 40 08/28/20 11:00 68 13 136/54 (81) 100 08/28/20 10:30 40 08/28/20 10:00 74 15 122/47 (72) 100 08/28/20 09:00 70 13 128/48 (74) 100 Objective: WDWN NAD reduced breath sounds bilaterally without rhonchi or wheeze [id number] without MRG NABS nontender GT no CCE reduced LOC James Nuñez MD Aug 29, 2020 08:18
[2020-08-29] MEDS: Pantoprazole Inj IVP SCH ×2 (08:29→20:34)
[2020-08-29] MEDS: levETIRAcetam 1,000mg/NS100ml 100 ML IVPB SCH ×2 (08:29→20:31)
--- NOTE | 2020-08-29 08:30 | NUR ---
NURSE NOTES: Dr Nuñez assessing pt at bedside.
[2020-08-29] MEDS ORDERED: Vancomycin 500mg/D5W 110ml IVPB SCH ×2 (09:00)
--- NOTE | 2020-08-29 10:00 | NUR ---
NURSE NOTES: Pt repositioned. No distress noted at this time.
[2020-08-29] MEDS ORDERED: Tubing IV Secondary IV ONE (10:15)
[2020-08-29] MEDS ORDERED: D5 1/2NS 1000ml IV ONE (10:15)
[2020-08-29] MEDS ORDERED: 1/2 NS 1000ml IV ONE (10:15)
[2020-08-29] MEDS: Linezolid 600mg/300ml (Pre-Mix) IVPB SCH ×2 (10:48→20:34)
--- NOTE | 2020-08-29 11:27 | Infectious Diseases Prog Note ---
Assessment/Plan Assessment/Plan antibiotics : vancomycin iv, cefepime A 1. VRE sepsis 2. serratia pneumonia 3. respiratory failure 4. sickle cell disease 5. anemia 6. leucocytosis improving 7. seizures P 1. continue iv cefepime 2. d/c iv vancomycin 3. start linezolid 4. d/c PICC line 5. will follow up cultures Subjective ROS Limited/Unobtainable: Yes Allergies: Coded Allergies: ADHESIVE TAPE (Verified Allergy, Unknown, 07/20/20) Uncoded Allergies: TAPE (Allergy, Unknown, 08/07/20) Objective Last 24 Hour Vital Signs Date Time Temp Pulse Resp B/P (MAP) Pulse Ox O2 Delivery O2 Flow Rate FiO2 08/29/20 10:00 78 14 133/57 (82) 100 08/29/20 09:00 85 16 137/55 (82) 100 08/29/20 08:00 40 08/29/20 08:00 98.1 87 19 130/53 (78) 100 08/29/20 08:00 Mechanical Ventilator Mechanical Ventilator 08/29/20 08:00 90 08/29/20 07:05 92 19 40 08/29/20 07:00 75 14 118/46 (70) 99 08/29/20 06:00 77 12 126/57 (80) 100 08/29/20 05:35 99.0 08/29/20 05:00 77 14 139/71 (93) 100 08/29/20 04:00 40 08/29/20 04:00 98.8 79 13 142/64 (90) 100 08/29/20 04:00 Mechanical Ventilator Mechanical Ventilator 08/29/20 04:00 65 08/29/20 03:52 80 13 40 08/29/20 03:24 83 14 131/58 100 08/29/20 03:00 92 18 128/64 (85) 100 08/29/20 02:54 83 14 131/58 100 08/29/20 02:00 77 14 135/61 (85) 100 08/29/20 01:03 99.0 08/29/20 01:00 83 14 131/58 (82) 100 08/29/20 00:00 81 08/29/20 00:00 Mechanical Ventilator Mechanical Ventilator 08/29/20 00:00 98.4 71 14 128/51 (76) 100 08/29/20 00:00 40 08/28/20 23:00 76 13 134/56 (82) 100 08/28/20 22:59 77 14 40 08/28/20 22:00 86 15 132/59 (83) 100 08/28/20 21:26 89 18 139/58 100 08/28/20 21:25 99.0 08/28/20 21:00 89 18 139/58 (85) 100 08/28/20 20:56 78 15 131/56 100 08/28/20 20:00 99.0 81 18 143/68 (93) 100 08/28/20 20:00 40 08/28/20 20:00 85 08/28/20 20:00 Mechanical Ventilator Mechanical Ventilator 08/28/20 19:30 99.3 08/28/20 19:26 78 15 40 08/28/20 19:00 94 18 131/56 (81) 100 08/28/20 18:00 85 15 146/62 (90) 100 08/28/20 17:00 78 14 144/59 (87) 100 08/28/20 16:13 75 15 109/64 100 08/28/20 16:00 40 08/28/20 16:00 82 17 138/51 (80) 100 08/28/20 16:00 85 08/28/20 16:00 Mechanical Ventilator Mechanical Ventilator 08/28/20 16:00 99.3 82 17 138/51 (80) 100 08/28/20 15:43 83 16 130/63 100 08/28/20 15:10 85 16 40 08/28/20 15:00 88 16 130/63 (85) 100 08/28/20 14:00 91 18 137/58 (84) 100 08/28/20 13:00 79 14 129/58 (81) 100 08/28/20 12:09 73 14 144/60 100 08/28/20 12:00 75 08/28/20 12:00 40 08/28/20 12:00 Mechanical Ventilator Mechanical Ventilator 08/28/20 12:00 98.3 77 15 144/60 (88) 100 08/28/20 11:39 73 17 136/54 100 Height (Feet): 5 Height (Inches): 10.00 Weight (Pounds): 112 HEENT: other - intubated Respiratory/Chest: lungs clear Cardiovascular: normal rate, regular rhythm, no gallop/murmur Abdomen: soft, non tender, other - GT Extremities: no clubbing, no edema, other - right arm PICC Laboratory Tests Test 08/28/20 12:48 08/29/20 03:00 Vancomycin Level Trough 30.4 ug/mL (5.0-12.0) H White Blood Count 24.3 K/UL (4.8-10.8) *H Red Blood Count 2.02 M/UL (4.70-6.10) L Hemoglobin 6.7 G/DL (14.2-18.0) *L Hematocrit 19.3 % (42.0-52.0) L Mean Corpuscular Volume 95 FL (80-99) Mean Corpuscular Hemoglobin 33.0 PG (27.0-31.0) H Mean Corpuscular Hemoglobin Concent 34.6 G/DL (32.0-36.0) Red Cell Distribution Width 16.3 % (11.6-14.8) H Platelet Count 363 K/UL (150-450) Mean Platelet Volume 7.9 FL (6.5-10.1) Neutrophils (%) (Auto) % (45.0-75.0) Lymphocytes (%) (Auto) % (20.0-45.0) Monocytes (%) (Auto) % (1.0-10.0) Eosinophils (%) (Auto) % (0.0-3.0) Basophils (%) (Auto) % (0.0-2.0) Differential Total Cells Counted 100 Neutrophils % (Manual) 63 % (45-75) Lymphocytes % (Manual) 17 % (20-45) L Monocytes % (Manual) 7 % (1-10) Eosinophils % (Manual) 11 % (0-3) H Basophils % (Manual) 2 % (0-2) Band Neutrophils 0 % (0-8) Nucleated Red Blood Cells 1 /100 WBC Platelet Estimate Adequate Platelet Morphology Normal Polychromasia 1+ Hypochromasia 1+ Anisocytosis 1+ Sodium Level 144 MMOL/L (136-145) Potassium Level 4.2 MMOL/L (3.5-5.1) Chloride Level 111 MMOL/L (98-107) H Carbon Dioxide Level 22 MMOL/L (21-32) Anion Gap 11 mmol/L (5-15) Blood Urea Nitrogen 38 mg/dL (7-18) H Creatinine 1.0 MG/DL (0.55-1.30) Estimat Glomerular Filtration Rate > 60 mL/min (>60) Glucose Level 88 MG/DL (74-106) Calcium Level 9.2 MG/DL (8.5-10.1) Random Vancomycin Level 20.4 ug/mL Current Medications Medications (Trade) Dose Ordered Sig/Piedad Route PRN Reason Start Time Stop Time Status Last Admin Dose Admin Acetaminophen (Tylenol) 650 mg Q4H PRN GT Mild Pain (Pain Scale 1-3) 08/24/20 13:00 09/23/20 12:59 08/28/20 13:40 Acetaminophen (Tylenol) 650 mg Q6H PRN GT Temp >100.5 08/10/20 20:20 09/09/20 20:19 08/28/20 20:55 Cefepime HCl 2 gm/ Dextrose 55 ml @ 110 mls/hr Q12H IVPB 08/25/20 14:00 09/01/20 13:59 08/29/20 01:22 Chlorhexidine Gluconate (Christy-Hex 2%) 1 applic DAILY@2000 TOPIC 08/14/20 20:00 11/12/20 19:59 08/28/20 20:40 Dextrose 1,000 ml @ 75 mls/hr [id number] IV 08/28/20 07:15 09/27/20 07:14 08/29/20 10:00 Folic Acid (Folate) 1 mg DAILY GT 08/11/20 09:00 09/07/20 08:59 08/29/20 08:30 Levetiracetam 100 ml @ 400 mls/hr Q12HR IVPB 08/14/20 10:00 11/12/20 09:59 08/29/20 08:29 Linezolid 300 ml @ 300 mls/hr Q12HR IVPB 08/29/20 11:00 09/05/20 10:59 08/29/20 10:48 Lorazepam (Ativan 2mg/ml 1ml) 1 mg Q4H PRN IV For Anxiety 08/26/20 07:00 09/02/20 06:59 08/29/20 02:54 Metoclopramide HCl (Reglan) 10 mg Q8H PRN IVP Nausea & Vomiting 08/26/20 11:15 09/25/20 11:14 08/27/20 20:46 Morphine Sulfate (Morphine Sulfate) 1 mg Q4HR PRN IVP Moderate Pain (Pain Scale 4-6) 08/26/20 07:00 09/02/20 06:59 08/28/20 11:39 Morphine Sulfate (Morphine Sulfate) 2 mg Q4H PRN IVP Severe Pain (Pain Scale 7-10) 08/28/20 15:00 09/04/20 14:59 08/29/20 10:02 Multivitamins (Multivitamins) 1 tab DAILY GT 08/11/20 09:00 09/07/20 08:59 08/29/20 08:30 Pantoprazole (Protonix) 40 mg EVERY 12 HOURS IVP 08/13/20 22:15 09/12/20 22:14 08/29/20 08:29 Isabelle Degroot MD Aug 29, 2020 11:27
--- NOTE | 2020-08-29 11:30 | NUR ---
NURSE NOTES: Mom of patient called to check on the status of the patient. Updated mom, also updated geography professor regarding home meds specifically for sickle cell anemia. Mom confirmed that she gave meds to Primary RN upon admission when [place] [facility] it was given to Pharmacy. Called Pharmacy, spoke to Pharmacy who confirmed that meds are there except that one has . Will need to get MD order to continue home meds. Will contact Dr. Celaya for order.
--- NOTE | 2020-08-29 11:30 | NUR ---
NURSE NOTES: Dr Degroot assessing pt at bedside.
--- NOTE | 2020-08-29 12:00 | NUR ---
NURSE NOTES: Pt repositioned and cleaned. Oral care provided. Afebrile. Seen by Dr Zhao. No distress noted.
--- NOTE | 2020-08-29 12:27 | NUR ---
CASE MANAGEMENT: REVIEW SI: RESPIRATORY FAILURE . SICKLE CELL DISEASE . INTUBATED T 98.1 HR 87 RR 19 BP 130/53 SAT 100% MECH VENT FIO2 40 WBC 24.3 H/H 6.7/19.3 IS: LINEZOLID IV Q12HR D5W IVF @ 75ML/HR CEFEPIME IV Q12HR ICU STATUS DCP: PATIENT IS FROM [facility]
--- NOTE | 2020-08-29 13:09 | Surgery Progress Note ---
Surgery Progress Note Subjective Additional Comments micro noted will plan for new picc soon will plan for trach soon Objective Last 24 Hour Vital Signs Date Time Temp Pulse Resp B/P (MAP) Pulse Ox O2 Delivery O2 Flow Rate FiO2 08/29/20 12:00 Mechanical Ventilator Mechanical Ventilator 08/29/20 12:00 98.4 79 15 129/58 (81) 100 08/29/20 12:00 74 08/29/20 12:00 40 08/29/20 11:00 84 21 136/43 (74) 100 08/29/20 10:00 78 14 133/57 (82) 100 08/29/20 09:00 85 16 137/55 (82) 100 08/29/20 08:00 40 08/29/20 08:00 98.1 87 19 130/53 (78) 100 08/29/20 08:00 Mechanical Ventilator Mechanical Ventilator 08/29/20 08:00 90 08/29/20 07:05 92 19 40 08/29/20 07:00 75 14 118/46 (70) 99 08/29/20 06:00 77 12 126/57 (80) 100 08/29/20 05:35 99.0 08/29/20 05:00 77 14 139/71 (93) 100 08/29/20 04:00 40 08/29/20 04:00 98.8 79 13 142/64 (90) 100 08/29/20 04:00 Mechanical Ventilator Mechanical Ventilator 08/29/20 04:00 65 08/29/20 03:52 80 13 40 08/29/20 03:24 83 14 131/58 100 08/29/20 03:00 92 18 128/64 (85) 100 08/29/20 02:54 83 14 131/58 100 08/29/20 02:00 77 14 135/61 (85) 100 08/29/20 01:03 99.0 08/29/20 01:00 83 14 131/58 (82) 100 08/29/20 00:00 81 08/29/20 00:00 Mechanical Ventilator Mechanical Ventilator 08/29/20 00:00 98.4 71 14 128/51 (76) 100 08/29/20 00:00 40 08/28/20 23:00 76 13 134/56 (82) 100 08/28/20 22:59 77 14 40 08/28/20 22:00 86 15 132/59 (83) 100 08/28/20 21:26 89 18 139/58 100 08/28/20 21:25 99.0 08/28/20 21:00 89 18 139/58 (85) 100 08/28/20 20:56 78 15 131/56 100 08/28/20 20:00 99.0 81 18 143/68 (93) 100 08/28/20 20:00 40 08/28/20 20:00 85 08/28/20 20:00 Mechanical Ventilator Mechanical Ventilator 08/28/20 19:30 99.3 08/28/20 19:26 78 15 40 08/28/20 19:00 94 18 131/56 (81) 100 08/28/20 18:00 85 15 146/62 (90) 100 08/28/20 17:00 78 14 144/59 (87) 100 08/28/20 16:13 75 15 109/64 100 08/28/20 16:00 40 08/28/20 16:00 82 17 138/51 (80) 100 08/28/20 16:00 85 08/28/20 16:00 Mechanical Ventilator Mechanical Ventilator 08/28/20 16:00 99.3 82 17 138/51 (80) 100 08/28/20 15:43 83 16 130/63 100 08/28/20 15:10 85 16 40 08/28/20 15:00 88 16 130/63 (85) 100 08/28/20 14:00 91 18 137/58 (84) 100 I&O Intake and Output 08/28/20 08/29/20 18:59 06:59 Intake Total 2000.0 ml 2467 ml Output Total 1515 ml 1620 ml Balance 485.0 ml 847 ml Free Water 80 ml 200 ml IV Total 1130.0 ml 1367 ml Tube Feeding 790 ml 840 ml Other 60 ml Output Urine Total 1465 ml 1545 ml Stool Total 50 ml 75 ml # Bowel Movements 1 3 Dressing: other Wound: other Cardiovascular: RSR Respiratory: decreased breath sounds Abdomen: soft, non-tender, present bowel sounds Extremities: no edema, no tenderness, no cyanosis Laboratory Tests Test 08/29/20 03:00 White Blood Count 24.3 K/UL (4.8-10.8) *H Red Blood Count 2.02 M/UL (4.70-6.10) L Hemoglobin 6.7 G/DL (14.2-18.0) *L Hematocrit 19.3 % (42.0-52.0) L Mean Corpuscular Volume 95 FL (80-99) Mean Corpuscular Hemoglobin 33.0 PG (27.0-31.0) H Mean Corpuscular Hemoglobin Concent 34.6 G/DL (32.0-36.0) Red Cell Distribution Width 16.3 % (11.6-14.8) H Platelet Count 363 K/UL (150-450) Mean Platelet Volume 7.9 FL (6.5-10.1) Neutrophils (%) (Auto) % (45.0-75.0) Lymphocytes (%) (Auto) % (20.0-45.0) Monocytes (%) (Auto) % (1.0-10.0) Eosinophils (%) (Auto) % (0.0-3.0) Basophils (%) (Auto) % (0.0-2.0) Differential Total Cells Counted 100 Neutrophils % (Manual) 63 % (45-75) Lymphocytes % (Manual) 17 % (20-45) L Monocytes % (Manual) 7 % (1-10) Eosinophils % (Manual) 11 % (0-3) H Basophils % (Manual) 2 % (0-2) Band Neutrophils 0 % (0-8) Nucleated Red Blood Cells 1 /100 WBC Platelet Estimate Adequate Platelet Morphology Normal Polychromasia 1+ Hypochromasia 1+ Anisocytosis 1+ Sodium Level 144 MMOL/L (136-145) Potassium Level 4.2 MMOL/L (3.5-5.1) Chloride Level 111 MMOL/L (98-107) H Carbon Dioxide Level 22 MMOL/L (21-32) Anion Gap 11 mmol/L (5-15) Blood Urea Nitrogen 38 mg/dL (7-18) H Creatinine 1.0 MG/DL (0.55-1.30) Estimat Glomerular Filtration Rate > 60 mL/min (>60) Glucose Level 88 MG/DL (74-106) Calcium Level 9.2 MG/DL (8.5-10.1) Random Vancomycin Level 20.4 ug/mL Plan Problems: (1) Pneumonia (2) Sickle cell anemia (3) Tachycardia (4) Severe sepsis (5) Sickle cell crisis (6) Sepsis Assessment & Plan: 35-year-old male sickle cell multiple comorbidities history of craniotomy trach feeding tube prior port infected removed see prior admission and consult and operative notes. Currently presents with significant leukocytosis fevers hypotension in intensive care unit wound site evaluated unlikely etiology. Trach evaluated may consider changing. LFTs noted elevated. Ultrasound ordered pending results trend labs continue IV antibiotics appreciate infectious disease input will follow with recommendations thank you for let me participate in patient's care KUB and US noted labs reviewed transfuse prbc prn trach change peg changed line out picc placed persistent wbc h/h noted anemia ss better since new trach Shiley [address] secretions manageable Trach replaced at bedside 925 for malpositioning it was identified he does have a false track as well. Will ensure trach is in correct positioning daily every shift trach not stable removed and intubated 08/25 on ett vent will need trach revision discussed with mother and medical teams trach and picc pulmonary arteries: Evaluation for pulmonary embolus is limited due to breathing motion artifact. No central pulmonary emboli are identified. Aorta: No acute findings. No thoracic aortic aneurysm. Lungs: There are moderately consolidating infiltrates identified in both lower lobes dependently with mild additional patchy infiltrates dependently in both upper lobes. The findings are consistent with bilateral nonspecific pneumonia. Aspiration pneumonia could give this appearance. The infiltrates are only somewhat typical of Covid 19. Confidence is immediate. Pleural space: Unremarkable. No significant effusion. No pneumothorax. Heart: Unremarkable. No cardiomegaly. No significant pericardial effusion. No evidence of RV dysfunction. Bones/joints: No acute fracture. No dislocation. Soft tissues: Unremarkable. Lymph nodes: Unremarkable. No enlarged lymph nodes. Tubes, lines and devices: There is a tracheostomy tube in good position. IMPRESSION: 1. There are moderately consolidating infiltrates identified in both lower lobes dependently with mild additional patchy infiltrates dependently in both upper lobes. The findings are consistent with bilateral nonspecific pneumonia. Aspiration pneumonia could give this appearance. The infiltrates are only somewhat typical of Covid 19. Confidence is immediate. 2. Evaluation for pulmonary embolus is limited due to breathing motion artifact. No central pulmonary emboli are identified. The liver is homogeneous. We cannot identify a normal spleen. There is dense crescentic calcification in the left upper quadrant at the expected location of the spleen. Gallbladder is absent. The pancreas is unremarkable. Adrenals are normal in morphology. There is a small punctate cortical calcification left kidney. No hydronephrosis bilaterally There is a G-tube in place. Gas-filled bowel loops identified throughout the abdomen and pelvis. No discrete transition point or obstruction. Appendix partially visualized. There is some free fluid in the pelvis. There is no free air. There is a mildly prominent lymph nodes noted in the upper to mid retroperitoneum noted of undetermined etiology or significance. Rivera catheter noted in the bladder. The reservoir for the penile prosthesis is identified in the left lower pelvis. There is a right femoral venous catheter in place. Diffuse sclerosis of the bony pelvis and hips noted of undetermined etiology. IMPRESSION: BILATERAL LOWER LOBE PNEUMONIAS. ALSO SOME HAZY INFILTRATES IN THE UPPER LOBES. A NORMAL SPLEEN IS NOT VISUALIZED. THERE IS A DENSE CRESCENTIC CALCIFICATION LEFT UPPER QUADRANT AT THE EXPECTED LOCATION OF THE SPLEEN. 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 PUNCTATE CORTICAL CALCIFICATION LEFT KIDNEY. NO HYDRONEPHROSIS. PROMINENT LYMPH NODES IN THE UPPER TO MID RETROPERITONEUM OF UNDETERMINED ETIOLOGY OR SIGNIFICANCE. G-TUBE, RIVERA CATHETER, RIGHT FEMORAL CATHETER AND PENILE PROSTHESIS NOTED IN PLACE. MILD DIFFUSE SCLEROSIS OF THE BONY PELVIS AND BOTH HIPS OF UNDETERMINED ETIOLOGY. QUESTION HISTORY OF RENAL OSTEODYSTROPHY. There is a large craniectomy defect in the right frontal temporal region. Diffuse age-related volume loss demonstrated. 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 No definite acute infarct seen. There is no hemorrhage, mass effect or shift. Ventricles and cisterns as well as brainstem and posterior fossa appear unremarkable. The sellar region is normal. Sinuses, mastoid air cells and bony calvarium appear intact. IMPRESSION: Large right frontotemporal craniectomy defect. 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 No definite acute intracranial abnormality. (7) Port-A-Cath in place Assessment & Plan: prior removal for infection site okay dressings changed no active infection from wound picc Harman Zhao Aug 29, 2020 13:09
--- NOTE | 2020-08-29 13:10 | Pre-Procedure Note/Attestation ---
Pre-Procedure Note/Attestation Complete Prior to Procedure Procedure Narrative: tracheostomy Indications for Procedure Pre-Operative Diagnosis: trach complication Attestation I attest that I discussed the nature of the procedure; its benefits; risks and complications; and alternatives (and the risks and benefits of such alternatives), prior to the procedure, with the patient (or the patient's legal sales representative trainee). I attest that, if there was a reasonable possibility of needing a blood transfusion, the patient (or the patient's legal sales representative trainee) was given the [facility] standardized written summary, pursuant to the [place] Blood Safety Act ([place] Health and Safety Code # 1645, as amended). I attest that I re-evaluated the patient just prior to the surgery and that there has been no change in the patient's H&P, except as documented below: Harman Zhao Aug 29, 2020 13:09
--- NOTE | 2020-08-29 14:00 | NUR ---
NURSE NOTES: Pt repositioned. No acute distress noted.
--- NOTE | 2020-08-29 14:16 | NUR ---
TELESCOPE REPAIRER NOTE Pt is vent dependent from [facility]. Pt's last admission at [facility] was 07/20/20-07/25/20. Pt's mother, Chey Bryant [phone] is the POA and the primary decision maker. Pt is currently bed bound and does not have substance abuse/mental health issue. Pt has hx of brain surgery. POA expresses full code for pt. SW to F/U as needed. Other emergency contact: Alex Bryant (father) [phone]
--- NOTE | 2020-08-29 14:38 | NUR ---
RADIOLOGY DEPT., CHEST X-RAY DONE.-P.DYE
--- NOTE | 2020-08-29 15:15 | NUR ---
NURSE NOTES: Spoke to Dr. Celaya re: home meds. Requested that sickle cell meds should be confirmed with Dr. Castillo. Per Dr. Castillo, order given to continue both home meds and order was placed to begin tomorrow am. Primary nurse was updated and PM charge will be updated as well. Mom of patient will bring in new med this evening or tomorrow morning to start new medication. Updated Pharmacy as well.
--- NOTE | 2020-08-29 16:00 | NUR ---
NURSE NOTES: Pt repositioned. Oral care provided. Afebrile. Appears calm, comfortable, asleep; without signs of distress or pain. Will continue to monitor.
--- NOTE | 2020-08-29 16:41 | Diagnostic Imaging Report ---
Indication: Reason For Exam: COUGH Technique: Single AP view of the chest. Comparison: Chest and left dated 08/26/2020 Findings: The cardiomediastinal silhouette is unchanged in appearance. Increasing bibasilar airspace opacities and retrocardiac consolidation. No pneumothorax. Unchanged trace right pleural effusion. Unchanged endotracheal tube and right approach PICC. IMPRESSION: Increasing bibasilar opacities and retrocardiac airspace consolidation, which could represent worsening atelectasis versus pneumonia.
--- NOTE | 2020-08-29 16:46 | Diagnostic Imaging Report ---
Indication:Leg pain and swelling Technique: Grayscale and duplex Doppler imaging of the veins in both lower extremities performed in real time utilizing compression and augmentation. Comparison: None available Findings: Duplex Doppler interrogation of the veins in both lower extremity is performed from the common femoral vein to the popliteal vein. Normal venous compressibility demonstrated throughout. No thrombus identified. Waveform analysis shows good respiratory phasicity and augmentation. IMPRESSION: No evidence of deep venous thrombosis involving the lower extremities.
--- NOTE | 2020-08-29 17:26 | General Progress Note ---
Subjective ROS Limited/Unobtainable: No Constitutional: Reports: malaise, weakness HEENT: Reports: no symptoms Cardiovascular: Reports: no symptoms Respiratory: Reports: cough Gastrointestinal/Abdominal: Reports: difficulty swallowing Genitourinary: Reports: no symptoms Neurologic/Psychiatric: Reports: pre-existing deficit, seizure Endocrine: Reports: no symptoms Hematologic/Lymphatic: Reports: anemia Allergies: Coded Allergies: ADHESIVE TAPE (Verified Allergy, Unknown, 07/20/20) Uncoded Allergies: TAPE (Allergy, Unknown, 08/07/20) All Systems: reviewed and negative except above Subjective remain stable on the vent. orally intubated. intermittently agitated. tolerating feeds, +blood cultures noted- +vre Objective Last 24 Hour Vital Signs Date Time Temp Pulse Resp B/P (MAP) Pulse Ox O2 Delivery O2 Flow Rate FiO2 08/29/20 16:00 98.7 98 20 136/64 (88) 100 08/29/20 16:00 40 08/29/20 16:00 96 08/29/20 16:00 Mechanical Ventilator Mechanical Ventilator 08/29/20 15:05 91 15 40 08/29/20 15:00 91 18 128/65 (86) 100 08/29/20 14:08 96 22 134/73 100 08/29/20 14:00 96 22 134/73 (93) 100 08/29/20 13:38 94 24 124/54 100 08/29/20 13:00 86 16 124/54 (77) 100 08/29/20 12:00 Mechanical Ventilator Mechanical Ventilator 08/29/20 12:00 98.4 79 15 129/58 (81) 100 08/29/20 12:00 74 08/29/20 12:00 40 08/29/20 11:00 84 21 136/43 (74) 100 08/29/20 10:35 76 17 40 08/29/20 10:00 78 14 133/57 (82) 100 08/29/20 09:00 85 16 137/55 (82) 100 08/29/20 08:00 40 08/29/20 08:00 98.1 87 19 130/53 (78) 100 08/29/20 08:00 Mechanical Ventilator Mechanical Ventilator 08/29/20 08:00 90 08/29/20 07:05 92 19 40 08/29/20 07:00 75 14 118/46 (70) 99 08/29/20 06:00 77 12 126/57 (80) 100 08/29/20 05:35 99.0 08/29/20 05:00 77 14 139/71 (93) 100 08/29/20 04:00 40 08/29/20 04:00 98.8 79 13 142/64 (90) 100 08/29/20 04:00 Mechanical Ventilator Mechanical Ventilator 08/29/20 04:00 65 08/29/20 03:52 80 13 40 08/29/20 03:24 83 14 131/58 100 08/29/20 03:00 92 18 128/64 (85) 100 08/29/20 02:54 83 14 131/58 100 08/29/20 02:00 77 14 135/61 (85) 100 08/29/20 01:03 99.0 08/29/20 01:00 83 14 131/58 (82) 100 08/29/20 00:00 81 08/29/20 00:00 Mechanical Ventilator Mechanical Ventilator 08/29/20 00:00 98.4 71 14 128/51 (76) 100 08/29/20 00:00 40 08/28/20 23:00 76 13 134/56 (82) 100 08/28/20 22:59 77 14 40 08/28/20 22:00 86 15 132/59 (83) 100 08/28/20 21:26 89 18 139/58 100 08/28/20 21:25 99.0 08/28/20 21:00 89 18 139/58 (85) 100 08/28/20 20:56 78 15 131/56 100 08/28/20 20:00 99.0 81 18 143/68 (93) 100 08/28/20 20:00 40 08/28/20 20:00 85 08/28/20 20:00 Mechanical Ventilator Mechanical Ventilator 08/28/20 19:30 99.3 08/28/20 19:26 78 15 40 08/28/20 19:00 94 18 131/56 (81) 100 08/28/20 18:00 85 15 146/62 (90) 100 Intake and Output 08/28/20 08/29/20 19:00 07:00 Intake Total 2010.0 ml 2467 ml Output Total 1515 ml 1670 ml Balance 495.0 ml 797 ml Free Water 80 ml 200 ml IV Total 1130.0 ml 1367 ml Tube Feeding 800 ml 840 ml Other 60 ml Output Urine Total 1515 ml 1595 ml Stool Total 75 ml # Bowel Movements 1 3 Laboratory Tests 08/29/20 03:00: White Blood Count 24.3*H, Red Blood Count 2.02L, Hemoglobin 6.7*L, Hematocrit 19.3L, Mean Corpuscular Volume 95, Mean Corpuscular Hemoglobin 33.0H, Mean Corpuscular Hemoglobin Concent 34.6, Red Cell Distribution Width 16.3H, Platelet Count 363, Mean Platelet Volume 7.9, Neutrophils (%) (Auto) , Lymphocytes (%) ( Auto) , Monocytes (%) (Auto) , Eosinophils (%) (Auto) , Basophils (%) (Auto) , Differential Total Cells Counted 100, Neutrophils % (Manual) 63, Lymphocytes % (Manual) 17L, Monocytes % (Manual) 7, Eosinophils % (Manual) 11H, Basophils % (Manual) 2, Band Neutrophils 0, Nucleated Red Blood Cells 1, Platelet Estimate Adequate, Platelet Morphology Normal, Polychromasia 1+, Hypochromasia 1+, Anisocytosis 1+, Sodium Level 144, Potassium Level 4.2, Chloride Level 111H, Carbon Dioxide Level 22, Anion Gap 11, Blood Urea Nitrogen 38H, Creatinine 1.0, Estimat Glomerular Filtration Rate > 60, Glucose Level 88, Calcium Level 9.2, Random Vancomycin Level 20.4 Height (Feet): 5 Height (Inches): 10.00 Weight (Pounds): 112 Objective General Appearance: WD/WN, lethargic. orally intubated EENT: normal ENT inspection Neck: normal alignment Cardiovascular: normal peripheral pulses, normal rate Respiratory/Chest: chest wall non-tender, lungs clear, normal breath sounds Abdomen: normal bowel sounds, non tender, soft, no organomegaly Edema: no edema noted Arm (L), no edema noted Arm (R) Neurologic: weak/sedated Assessment/Plan Problem List: (1) Pneumonia ICD Codes: J18.9 - Pneumonia, unspecified organism SNOMED: 611097048 Qualifiers: Qualified Codes: J18.9 - Pneumonia, unspecified organism (2) Sickle cell anemia ICD Codes: D57.1 - Sickle-cell disease without crisis SNOMED: 070176880 Qualifiers: Qualified Codes: D57.00 - Hb-SS disease with crisis, unspecified (3) Severe sepsis ICD Codes: A41.9 - Sepsis, unspecified organism; R65.20 - Severe sepsis without septic shock SNOMED: [id number] Status: stable, not improved Assessment/Plan: cont vent support wean as able monitor abg resp care suctioning as needed dvt/stress ulcer prophylaxis surgery follow up will likely need new trach ivf dc picc per ID transfuse as needed repeats labs in am d/w mother Lalo Ahumada MD Aug 29, 2020 17:26
--- NOTE | 2020-08-29 18:00 | NUR ---
NURSE NOTES: Pt repositioned. No distress noted at this time.
--- NOTE | 2020-08-29 19:39 | NUR ---
NURSE HAND-OFF REPORT: Latest Vital Signs: Temperature 98.7 , Pulse 95 , B/P 141 /78 , Respiratory Rate 16 , O2 SAT 100 , Mechanical Ventilator, FiO2 40% . Vital Sign Comment: stable EKG Rhythm: Sinus Rhythm Rhythm change?: N MD Notified?: n/a MD Response: n/a Latest Stevens Fall Score: 50 Fall Risk: High Risk Safety Measures: Call light Within Reach, Bed Alarm Zone 2, Side Rails Side Rails x2, Bed position Low and Locked. Fall Precautions: Yellow Socks Yellow Gown Door Sign Patient Fall Education Report given to ARLYN Palmer.
--- NOTE | 2020-08-29 19:40 | NUR ---
NURSE NOTES: Received patient and report from ARLYN Carlton. Patient is observed resting in bed and remains drowsy and unable to follow commands. No pain noted upon assessment. Pt is orally intubated ett size 7.0 and noted to be 23 @ lip. Pt noted to have . Vent settings as follows: AC 12, 500tv, FiO2 40% PEEP 0 with an O2 saturation of 100% noted at this time. Bilateral lower lobe breath sounds noted to be diminished upon auscultation. HR noted to be 85 NSR on registered nurse cardiac telemetry with pulses equal and present bilaterally. Right upper arm PICC line noted which remains asymptomatic, intact and patent. Central line dressing remains clean, dry and intact. D5W at 75ml/hr infusing. GT tube noted which remains intact, and patent. GT feeding of Vital AF at 70ml/hr. minimal residual noted at this time. Active bowel sounds noted in all four quadrants; abdomen remains flat and soft. Overton catheter noted and draining to gravity with yellow urine in collection bag. Rectal tube noted which continues to yellowish- brown, liquid stool to gravity. Diagnostics reviewed at bedside. Skin alterations noted. Fall, Aspiration, Seizure and Skin precautions observed. Pt remains resting in bed; Bed remains in the lowest position with the safety wheels engaged, call light within reach, side rails up x3 and bed alarm activated. Will continue plan of care. Will continue to monitor.
--- NOTE | 2020-08-29 20:24 | General Progress Note ---
Subjective Allergies: Coded Allergies: ADHESIVE TAPE (Verified Allergy, Unknown, 07/20/20) Uncoded Allergies: TAPE (Allergy, Unknown, 08/07/20) Subjective In ICU calm and comfortable tolerating feeds d/w RN Objective Last 24 Hour Vital Signs Date Time Temp Pulse Resp B/P (MAP) Pulse Ox O2 Delivery O2 Flow Rate FiO2 08/29/20 19:00 95 16 141/78 (99) 100 08/29/20 18:50 95 19 40 08/29/20 17:00 93 21 148/72 (97) 100 08/29/20 16:00 98.7 98 20 136/64 (88) 100 08/29/20 16:00 40 08/29/20 16:00 96 08/29/20 16:00 Mechanical Ventilator Mechanical Ventilator 08/29/20 15:05 91 15 40 08/29/20 15:00 91 18 128/65 (86) 100 08/29/20 14:08 96 22 134/73 100 08/29/20 14:00 96 22 134/73 (93) 100 08/29/20 13:38 94 24 124/54 100 08/29/20 13:00 86 16 124/54 (77) 100 08/29/20 12:00 Mechanical Ventilator Mechanical Ventilator 08/29/20 12:00 98.4 79 15 129/58 (81) 100 08/29/20 12:00 74 08/29/20 12:00 40 08/29/20 11:00 84 21 136/43 (74) 100 08/29/20 10:35 76 17 40 08/29/20 10:00 78 14 133/57 (82) 100 08/29/20 09:00 85 16 137/55 (82) 100 08/29/20 08:00 40 08/29/20 08:00 98.1 87 19 130/53 (78) 100 08/29/20 08:00 Mechanical Ventilator Mechanical Ventilator 08/29/20 08:00 90 08/29/20 07:05 92 19 40 08/29/20 07:00 75 14 118/46 (70) 99 08/29/20 06:00 77 12 126/57 (80) 100 08/29/20 05:35 99.0 08/29/20 05:00 77 14 139/71 (93) 100 08/29/20 04:00 40 08/29/20 04:00 98.8 79 13 142/64 (90) 100 08/29/20 04:00 Mechanical Ventilator Mechanical Ventilator 08/29/20 04:00 65 08/29/20 03:52 80 13 40 08/29/20 03:24 83 14 131/58 100 08/29/20 03:00 92 18 128/64 (85) 100 08/29/20 02:54 83 14 131/58 100 08/29/20 02:00 77 14 135/61 (85) 100 08/29/20 01:03 99.0 08/29/20 01:00 83 14 131/58 (82) 100 08/29/20 00:00 81 08/29/20 00:00 Mechanical Ventilator Mechanical Ventilator 08/29/20 00:00 98.4 71 14 128/51 (76) 100 08/29/20 00:00 40 08/28/20 23:00 76 13 134/56 (82) 100 08/28/20 22:59 77 14 40 08/28/20 22:00 86 15 132/59 (83) 100 08/28/20 21:26 89 18 139/58 100 08/28/20 21:25 99.0 08/28/20 21:00 89 18 139/58 (85) 100 08/28/20 20:56 78 15 131/56 100 Intake and Output 08/28/20 08/29/20 19:00 07:00 Intake Total 2010.0 ml 2467 ml Output Total 1515 ml 1670 ml Balance 495.0 ml 797 ml Free Water 80 ml 200 ml IV Total 1130.0 ml 1367 ml Tube Feeding 800 ml 840 ml Other 60 ml Output Urine Total 1515 ml 1595 ml Stool Total 75 ml # Bowel Movements 1 3 Laboratory Tests 08/29/20 03:00: White Blood Count 24.3*H, Red Blood Count 2.02L, Hemoglobin 6.7*L, Hematocrit 19.3L, Mean Corpuscular Volume 95, Mean Corpuscular Hemoglobin 33.0H, Mean Corpuscular Hemoglobin Concent 34.6, Red Cell Distribution Width 16.3H, Platelet Count 363, Mean Platelet Volume 7.9, Neutrophils (%) (Auto) , Lymphocytes (%) (Auto) , Monocytes (%) (Auto) , Eosinophils (%) (Auto) , Basophils (%) (Auto) , Differential Total Cells Counted 100, Neutrophils % (Manual) 63, Lymphocytes % (Manual) 17L, Monocytes % (Manual) 7, Eosinophils % (Manual) 11H, Basophils % (Manual) 2, Band Neutrophils 0, Nucleated Red Blood Cells 1, Platelet Estimate Adequate, Platelet Morphology Normal, Polychromasia 1+, Hypochromasia 1+, Anisocytosis 1+, Sodium Level 144, Potassium Level 4.2, Chloride Level 111H, Carbon Dioxide Level 22, Anion Gap 11, Blood Urea Nitrogen 38H, Creatinine 1.0, Estimat Glomerular Filtration Rate > 60, Glucose Level 88, Calcium Level 9.2, Random Vancomycin Level 20.4 Height (Feet): 5 Height (Inches): 10.00 Weight (Pounds): 112 Objective Thin AA Man HEENT s/p craniotomy, (+) ETT neck (+) dressing Coarse BS, ronchi, tachypnic RR/tachy abd soft (+) GT no edema Assessment/Plan Status: stable, not improved Assessment/Plan: Assessment - respiratory distress - intubated - recent occluded GT - replaced - abnormal LFT - 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
[2020-08-29] MEDS: Dyna-Hex 2% Top Sol 2oz TOPIC SCH (20:31)
[2020-08-29] MEDS: Acetaminophen 650mg/20.3ml GT PRN (20:32)
--- NOTE | 2020-08-29 20:33 | NUR ---
NURSE NOTES: Bedside assessment performed, assessed pt with a FLACC scale of 10/10 noted. Morphine 2mg IVP given for the pain. VS obtained and remain stable at this time, Pt remains clean and dry. Pt repositioned for comfort and safety. Ativan 1mg IVP also given for agitation. Patient also noted to have temperature of 100.2F (ax). Tylenol 650mg via Gt was provided along with cooling measures. Fall, Aspiration and Skin precautions observed. Pt remains resting in bed; Bed remains in the lowest position with the safety wheels engaged, call light within reach, side rails up x3 and bed alarm activated. Will continue plan of care. Will continue to monitor.
--- NOTE | 2020-08-29 22:00 | NUR ---
NURSE NOTES: Patient assessment performed. Pain assessment assessed using the Flacc scare method, currently pain rating is at 0/10 and patient is also less agitated after Ativan was given. Oral care was provided. PICC line remains clean, dry and intact. NAD at this time.Fall, Aspiration and Skin precautions observed. Pt remains resting in bed; Bed remains in the lowest position with the safety wheels engaged, call light within reach, side rails up x3 and bed alarm activated. Will continue plan of care. Will continue to monitor.
[2020-08-30] VITALS (25 sets, daily range): BP systolic 110–154; BP diastolic 49–93
--- NOTE | 2020-08-30 | NUR ---
NURSE NOTES: Bedside assessment performed, assessed pt with a FLACC scale of 0 noted. Patient was provided with oral care and lavaged, and suctioned. Vitals remains stable at this time, patient is afebrile. Fall, Aspiration and Skin precautions observed. Pt remains resting in bed; Bed remains in the lowest position with the safety wheels engaged, call light within reach, side rails up x3 and bed alarm activated. Will continue plan of care. Will continue to monitor.
[2020-08-30] MEDS: Cefepime HCl 2 GM in D5W 55 ML IVPB SCH ×2 (00:58→13:17)
--- NOTE | 2020-08-30 03:30 | NUR ---
Received patient from Spencer STODDARD, AOx3 baseline currently sedated at this time.Patient orally intubated ETT 7.5 23cm lip line. AC 12, VT 500, Fio2 40%. SHER PICC line running D5W @ 75 ml/hr. All ports flushed and noted with good blood return. GT feeding Vital AF 1.2 @ 70 cc/hr, Noted 20 ml residual at this time,. Rectal tube draining by gravity. Overton cath draining by gravity, On p200 mattress at this time. Bed in lowest position, side rails upx3. No signs of distress noted at this time. Will continue to monitor.
--- NOTE | 2020-08-30 04:11 | NUR ---
NURSE NOTES: Morning Labs drawn and sent to the lab. Patent continues to sleep. Sinus rhythm on the monitor. Will continue to monitor.
[2020-08-30 05:11] LABS: MEAN CORPUSCULAR VOLUME 94 FL (80-99); PLATELET COUNT 332 K/UL (150-450); RED BLOOD COUNT 2.02 M/UL (4.70-6.10); RED CELL DISTRIBUTION WIDTH 16.9 % (11.6-14.8); WHITE BLOOD COUNT 18.9 K/UL (4.8-10.8)
[2020-08-30 05:19] LABS: INR 1.2 (0.9-1.1)
[2020-08-30 05:42] LABS: HEMOGLOBIN 6.5 G/DL (14.2-18.0)
[2020-08-30 05:43] LABS: ALANINE AMINOTRANSFERASE 67 U/L (12-78); ALBUMIN 2.4 G/DL (3.4-5.0); ALBUMIN/GLOBULIN RATIO 0.5 (1.0-2.7); ALKALINE PHOSPHATASE 429 U/L (46-116); ANION GAP 3 mmol/L (5-15); ASPARTATE AMINO TRANSFERASE 56 U/L (15-37); BILIRUBIN,TOTAL 1.1 MG/DL (0.2-1.0); BLOOD UREA NITROGEN 39 mg/dL (7-18); CALCIUM 9.2 MG/DL (8.5-10.1); CARBON DIOXIDE 24 MMOL/L (21-32); CHLORIDE 104 MMOL/L (98-107); POTASSIUM 3.9 MMOL/L (3.5-5.1); SODIUM 131 MMOL/L (136-145)
--- NOTE | 2020-08-30 06:00 | NUR ---
NURSE NOTES: Patient Remains sleeping at this time. opens eyes to name and able to follow simple commands at this time. Sinus rhythm on the monitor. No signs of distress noted. Will continue to monitor.
[2020-08-30 06:53] LABS: BILIRUBIN,DIRECT 0.5 MG/DL (0.0-0.3)
[2020-08-30] MEDS ORDERED: Sterile Water Irrig 1000ml IRRIG ONE (07:00)
[2020-08-30] MEDS ORDERED: NS Irrig 1000ml ONE (07:00)
--- NOTE | 2020-08-30 07:08 | Hematology/Onc Progress Note ---
Assessment/Plan Assessment/Plan Assessment and Recs # Sickle cell crisis noted upon admission, with hx of sickle cell anemia --> hgb 6.5-->7.1-->6.6->>>>7.3-->7.1 -->6.7-->6.5-->6.8->7-->7.2->6.5-->6.7-->6.5 --> 1 unit prbc on 07/23, 1 unit 08/27 --> ivfs have been started --> anemia panel ordered, with elev ferritin --> recommend to consider hydrea when discharged if stable --> likely does have mild hemolysis --> hgb electrophoresis show evidence of sickle cell trait --> FLOW CYTOMETRY IS NEGATIVE # Hyperferritinemia with elevated ferritin that was noted --> likely consider exjade once discharged though at this time not limiting --> ferritin can >2000 with recurrent transfusions --> trend over time, for EOD observe --> 08/30 deferasirox and ferriprox started # Leukocytosis poa with Severe sepsis due to line infection --> abx: vancomycin-->cefepime/colistin-->cefepime --> wbc 25-->31-->29-->25-->37--->31-->24 --> FLOW CYTOMETRY NEG # Respiratory failure s/p Ventilator dependent --> as per pulm, vent adjustment # Port-A-Cath in place --> s/p abx --> s/p permacath removal # Transaminitis -->liver function elevated --> per gi # Dt ppx heparin sq The timing of this note does not necessarily reflect the time of the patient was seen. Greatly appreciate consultation. Subjective Cardiovascular: Denies: no symptoms, chest pain, edema, irregular heart rate, lightheadedness, palpitations, syncope, other Respiratory: Denies: no symptoms, cough, shortness of breath, SOB with excertion, SOB at rest, sputum, wheezing, other Gastrointestinal/Abdominal: Denies: no symptoms, abdomen distended, abdominal pain, black stools, tarry stools, blood in stool, constipated, diarrhea, difficulty swallowing, nausea, poor appetite, poor fluid intake, rectal bleeding , vomiting, other Genitourinary: Denies: no symptoms, burning, discharge, frequency, flank pain, hematuria, incontinence, pain, urgency, other Neurologic/Psychiatric: Denies: no symptoms, anxiety, depressed, emotional problems, headache, numbness, paresthesia, pre-existing deficit, seizure, tingling, tremors, weakness, other Endocrine: Denies: no symptoms, excessive sweating, flushing, intolerance to cold, intolerance to heat, increased hunger, increased thirst, increased urine, unexplained weight gain, unexplained weight loss, other Allergies: Coded Allergies: ADHESIVE TAPE (Verified Allergy, Unknown, 07/20/20) Uncoded Allergies: TAPE (Allergy, Unknown, 08/07/20) Subjective 08/19 no acute events, vent, iv abx, labs reviewed 08/20 labs reviewed, seen by Dr. Celaya and mychal Rn, holding off prbc 08/21 remains on abx with persistently elev wbc, on abx broad spectrum 08/22 labs reviewed, no bleeding, meds noted, wbc still 25k, hgb 6.8, transfuse pr 08/23 cbc has been ordered, meds noted, on cefepime, have dw path is flow back 08/24 hob is elevated, labs noted, hgb 7, consider for transfusions soon, wbc is better 08/25 labs are reviewed, wbc is worse, flow was done and is negative 08/27 is in the icu, labs noted, on cefepime and vanc, wbc 31 08/29 labs reviewed, hgb 6.7, mychal Feldman in am, no bleeding, seen with Belia 08/30 remains on vent, have restart home chelating agents, hgb 6.5 Objective Objective Current Medications Medications (Trade) Dose Ordered Sig/Piedad Route PRN Reason Start Time Stop Time Status Last Admin Dose Admin Acetaminophen (Tylenol) 650 mg Q4H PRN GT Mild Pain (Pain Scale 1-3) 08/24/20 13:00 09/23/20 12:59 08/28/20 13:40 Acetaminophen (Tylenol) 650 mg Q6H PRN GT Temp >100.5 08/10/20 20:20 09/09/20 20:19 08/29/20 20:32 Cefepime HCl 2 gm/ Dextrose 55 ml @ 110 mls/hr Q12H IVPB 08/25/20 14:00 10/2/20 13:59 08/30/20 00:58 Chlorhexidine Gluconate (Christy-Hex 2%) 1 applic DAILY@2000 TOPIC 08/14/20 20:00 11/12/20 19:59 08/29/20 20:31 Dextrose 1,000 ml @ 75 mls/hr [id number] IV 08/28/20 07:15 09/27/20 07:14 08/29/20 23:30 Folic Acid (Folate) 1 mg DAILY GT 08/11/20 09:00 09/07/20 08:59 08/29/20 08:30 Levetiracetam 100 ml @ 400 mls/hr Q12HR IVPB 08/14/20 10:00 11/12/20 09:59 08/29/20 20:31 Linezolid 300 ml @ 300 mls/hr Q12HR IVPB 08/29/20 11:00 09/05/20 10:59 08/29/20 20:34 Lorazepam (Ativan 2mg/ml 1ml) 1 mg Q4H PRN IV For Anxiety 08/26/20 07:00 09/02/20 06:59 08/29/20 20:36 Metoclopramide HCl (Reglan) 10 mg Q8H PRN IVP Nausea & Vomiting 08/26/20 11:15 09/25/20 11:14 08/27/20 20:46 Morphine Sulfate (Morphine Sulfate) 1 mg Q4HR PRN IVP Moderate Pain (Pain Scale 4-6) 08/26/20 07:00 09/02/20 06:59 08/28/20 11:39 Morphine Sulfate (Morphine Sulfate) 2 mg Q4H PRN IVP Severe Pain (Pain Scale 7-10) 08/28/20 15:00 09/04/20 14:59 08/29/20 20:33 Multivitamins (Multivitamins) 1 tab DAILY GT 08/11/20 09:00 09/07/20 08:59 08/29/20 08:30 Pantoprazole (Protonix) 40 mg EVERY 12 HOURS IVP 08/13/20 22:15 09/12/20 22:14 08/29/20 20:34 Patient Own Medication (Patient's Own Med) 2 ea TID GT 08/30/20 09:00 09/29/20 08:59 Patient Own Medication (Patient's Own Med) 3 ea DAILY GT 08/30/20 09:00 09/29/20 08:59 Last 24 Hour Vital Signs Date Time Temp Pulse Resp B/P (MAP) Pulse Ox O2 Delivery O2 Flow Rate FiO2 08/30/20 06:00 85 15 127/63 (84) 100 08/30/20 05:00 76 13 129/67 (87) 100 08/30/20 04:00 Mechanical Ventilator Mechanical Ventilator 08/30/20 04:00 76 08/30/20 04:00 40 08/30/20 04:00 99.5 82 14 154/70 (98) 100 08/30/20 03:03 82 13 40 08/30/20 03:00 80 13 136/69 (91) 100 08/30/20 02:00 79 12 132/75 (94) 100 08/30/20 01:00 82 13 133/76 (95) 100 08/30/20 00:00 Mechanical Ventilator Mechanical Ventilator 08/30/20 00:00 99.2 84 15 141/68 (92) 100 08/30/20 00:00 40 08/30/20 00:00 86 13 135/58 (83) 100 08/29/20 23:18 84 08/29/20 23:00 87 15 40 08/29/20 23:00 87 16 121/65 (83) 97 08/29/20 22:00 94 18 125/81 (96) 98 08/29/20 21:06 75 18 123/65 100 08/29/20 21:02 99.7 08/29/20 21:00 90 17 124/52 (76) 100 08/29/20 20:36 90 20 130/60 100 08/29/20 20:00 100.2 89 16 130/62 (84) 100 08/29/20 20:00 Mechanical Ventilator Mechanical Ventilator 08/29/20 20:00 40 08/29/20 19:18 89 08/29/20 19:00 95 16 141/78 (99) 100 08/29/20 18:50 95 19 40 08/29/20 17:00 93 21 148/72 (97) 100 08/29/20 16:00 98.7 98 20 136/64 (88) 100 08/29/20 16:00 40 08/29/20 16:00 96 08/29/20 16:00 Mechanical Ventilator Mechanical Ventilator 08/29/20 15:05 91 15 40 08/29/20 15:00 91 18 128/65 (86) 100 08/29/20 14:08 96 22 134/73 100 08/29/20 14:00 96 22 134/73 (93) 100 08/29/20 13:38 94 24 124/54 100 08/29/20 13:00 86 16 124/54 (77) 100 08/29/20 12:00 Mechanical Ventilator Mechanical Ventilator 08/29/20 12:00 98.4 79 15 129/58 (81) 100 08/29/20 12:00 74 08/29/20 12:00 40 08/29/20 11:00 84 21 136/43 (74) 100 08/29/20 10:35 76 17 40 08/29/20 10:00 78 14 133/57 (82) 100 08/29/20 09:00 85 16 137/55 (82) 100 08/29/20 08:00 40 08/29/20 08:00 98.1 87 19 130/53 (78) 100 08/29/20 08:00 Mechanical Ventilator Mechanical Ventilator 08/29/20 08:00 90 08/29/20 07:05 92 19 40 08/29/20 07:00 75 14 118/46 (70) 99 08/29/20 06:00 77 12 126/57 (80) 100 08/29/20 05:35 99.0 08/29/20 05:00 77 14 139/71 (93) 100 08/29/20 04:00 40 08/29/20 04:00 98.8 79 13 142/64 (90) 100 08/29/20 04:00 Mechanical Ventilator Mechanical Ventilator 08/29/20 04:00 65 08/29/20 03:52 80 13 40 08/29/20 03:24 83 14 131/58 100 08/29/20 03:00 92 18 128/64 (85) 100 08/29/20 02:54 83 14 131/58 100 08/29/20 02:00 77 14 135/61 (85) 100 08/29/20 01:03 99.0 08/29/20 01:00 83 14 131/58 (82) 100 08/29/20 00:00 81 08/29/20 00:00 Mechanical Ventilator Mechanical Ventilator 08/29/20 00:00 98.4 71 14 128/51 (76) 100 08/29/20 00:00 40 08/28/20 23:00 76 13 134/56 (82) 100 08/28/20 22:59 77 14 40 08/28/20 22:00 86 15 132/59 (83) 100 08/28/20 21:26 89 18 139/58 100 08/28/20 21:25 99.0 08/28/20 21:00 89 18 139/58 (85) 100 08/28/20 20:56 78 15 131/56 100 08/28/20 20:00 99.0 81 18 143/68 (93) 100 08/28/20 20:00 40 08/28/20 20:00 85 08/28/20 20:00 Mechanical Ventilator Mechanical Ventilator 08/28/20 19:30 99.3 08/28/20 19:26 78 15 40 08/28/20 19:00 94 18 131/56 (81) 100 08/28/20 18:00 85 15 146/62 (90) 100 08/28/20 17:00 78 14 144/59 (87) 100 08/28/20 16:13 75 15 109/64 100 08/28/20 16:00 40 08/28/20 16:00 82 17 138/51 (80) 100 08/28/20 16:00 85 08/28/20 16:00 Mechanical Ventilator Mechanical Ventilator 08/28/20 16:00 99.3 82 17 138/51 (80) 100 08/28/20 15:43 83 16 130/63 100 08/28/20 15:10 85 16 40 08/28/20 15:00 88 16 130/63 (85) 100 08/28/20 14:00 91 18 137/58 (84) 100 08/28/20 13:00 79 14 129/58 (81) 100 08/28/20 12:09 73 14 144/60 100 08/28/20 12:00 75 08/28/20 12:00 40 08/28/20 12:00 Mechanical Ventilator Mechanical Ventilator 08/28/20 12:00 98.3 77 15 144/60 (88) 100 08/28/20 11:39 73 17 136/54 100 08/28/20 11:10 70 13 40 08/28/20 11:00 68 13 136/54 (81) 100 08/28/20 10:30 40 08/28/20 10:00 74 15 122/47 (72) 100 08/28/20 09:00 70 13 128/48 (74) 100 08/28/20 08:00 98.1 70 14 133/48 (76) 100 08/28/20 08:00 67 08/28/20 08:00 Mechanical Ventilator Mechanical Ventilator 08/28/20 08:00 45 08/28/20 07:57 70 13 133/48 100 08/28/20 07:27 65 16 129/57 100 08/28/20 07:10 71 14 45 Intake and Output 08/29/20 08/30/20 19:00 07:00 Intake Total 2280 ml 2160 ml Output Total 2915 ml 1270 ml Balance -635 ml 890 ml Free Water 50 ml 90 ml IV Total 1390 ml 1230 ml Tube Feeding 840 ml 840 ml Output Urine Total 2815 ml 1270 ml Stool Total 100 ml # Bowel Movements 3 Labs Test 08/28/20 04:40 08/28/20 05:00 08/28/20 12:48 08/29/20 03:00 White Blood Count 24.9 K/UL (4.8-10.8) 24.3 K/UL (4.8-10.8) Red Blood Count 1.99 M/UL (4.70-6.10) 2.02 M/UL (4.70-6.10) Hemoglobin 6.5 G/DL (14.2-18.0) 6.7 G/DL (14.2-18.0) Hematocrit 19.0 % (42.0-52.0) 19.3 % (42.0-52.0) Mean Corpuscular Volume 95 FL (80-99) 95 FL (80-99) Mean Corpuscular Hemoglobin 32.6 PG (27.0-31.0) 33.0 PG (27.0-31.0) Mean Corpuscular Hemoglobin Concent 34.2 G/DL (32.0-36.0) 34.6 G/DL (32.0-36.0) Red Cell Distribution Width 16.4 % (11.6-14.8) 16.3 % (11.6-14.8) Platelet Count 382 K/UL (150-450) 363 K/UL (150-450) Mean Platelet Volume 8.7 FL (6.5-10.1) 7.9 FL (6.5-10.1) Neutrophils (%) (Auto) % (45.0-75.0) % (45.0-75.0) Lymphocytes (%) (Auto) % (20.0-45.0) % (20.0-45.0) Monocytes (%) (Auto) % (1.0-10.0) % (1.0-10.0) Eosinophils (%) (Auto) % (0.0-3.0) % (0.0-3.0) Basophils (%) (Auto) % (0.0-2.0) % (0.0-2.0) Differential Total Cells Counted 100 100 Neutrophils % (Manual) 68 % (45-75) 63 % (45-75) Lymphocytes % (Manual) 20 % (20-45) 17 % (20-45) Monocytes % (Manual) 5 % (1-10) 7 % (1-10) Eosinophils % (Manual) 7 % (0-3) 11 % (0-3) Basophils % (Manual) 0 % (0-2) 2 % (0-2) Band Neutrophils 0 % (0-8) 0 % (0-8) Platelet Estimate Adequate Adequate Platelet Morphology Normal Normal Hypochromasia 1+ 1+ Anisocytosis 1+ 1+ Sodium Level 149 MMOL/L (136-145) 144 MMOL/L (136-145) Potassium Level 4.1 MMOL/L (3.5-5.1) 4.2 MMOL/L (3.5-5.1) Chloride Level 117 MMOL/L (98-107) 111 MMOL/L (98-107) Carbon Dioxide Level 23 MMOL/L (21-32) 22 MMOL/L (21-32) Anion Gap 9 mmol/L (5-15) 11 mmol/L (5-15) Blood Urea Nitrogen 37 mg/dL (7-18) 38 mg/dL (7-18) Creatinine 1.1 MG/DL (0.55-1.30) 1.0 MG/DL (0.55-1.30) Estimat Glomerular Filtration Rate > 60 mL/min (>60) > 60 mL/min (>60) Glucose Level 98 MG/DL (74-106) 88 MG/DL (74-106) Calcium Level 8.8 MG/DL (8.5-10.1) 9.2 MG/DL (8.5-10.1) Total Bilirubin 1.0 MG/DL (0.2-1.0) Aspartate Amino Transf (AST/SGOT) 46 U/L (15-37) Alanine Aminotransferase (ALT/SGPT) 54 U/L (12-78) Alkaline Phosphatase 377 U/L (46-116) Total Protein 7.4 G/DL (6.4-8.2) Albumin 2.3 G/DL (3.4-5.0) Globulin 5.1 g/dL Albumin/Globulin Ratio 0.5 (1.0-2.7) Urine Color Pale yellow Urine Appearance Clear Urine pH 5 (4.5-8.0) Urine Specific [place] 1.005 (1.005-1.035) Urine Protein 1+ (NEGATIVE) Urine Glucose (UA) Negative (NEGATIVE) Urine Ketones Negative (NEGATIVE) Urine Blood 1+ (NEGATIVE) Urine Nitrite Negative (NEGATIVE) Urine Bilirubin Negative (NEGATIVE) Urine Urobilinogen Normal MG/DL (0.0-1.0) Urine Leukocyte Esterase 1+ (NEGATIVE) Urine RBC 0-2 /HPF (0 - 0) Urine WBC 0-2 /HPF (0 - 0) Urine Squamous Epithelial Cells None /LPF (NONE/OCC) Urine Bacteria None /HPF (NONE) Vancomycin Level Trough 30.4 ug/mL (5.0-12.0) Nucleated Red Blood Cells 1 /100 WBC Polychromasia 1+ Random Vancomycin Level 20.4 ug/mL Test 08/30/20 04:00 White Blood Count 18.9 K/UL (4.8-10.8) Red Blood Count 2.02 M/UL (4.70-6.10) Hemoglobin 6.5 G/DL (14.2-18.0) Hematocrit 19.0 % (42.0-52.0) Mean Corpuscular Volume 94 FL (80-99) Mean Corpuscular Hemoglobin 32.1 PG (27.0-31.0) Mean Corpuscular Hemoglobin Concent 34.0 G/DL (32.0-36.0) Red Cell Distribution Width 16.9 % (11.6-14.8) Platelet Count 332 K/UL (150-450) Mean Platelet Volume 8.8 FL (6.5-10.1) Neutrophils (%) (Auto) % (45.0-75.0) Lymphocytes (%) (Auto) % (20.0-45.0) Monocytes (%) (Auto) % (1.0-10.0) Eosinophils (%) (Auto) % (0.0-3.0) Basophils (%) (Auto) % (0.0-2.0) Prothrombin Time 13.0 SEC (9.30-11.50) Prothromb Time International Ratio 1.2 (0.9-1.1) Activated Partial Thromboplast Time 36 SEC (23-33) Sodium Level 131 MMOL/L (136-145) Potassium Level 3.9 MMOL/L (3.5-5.1) Chloride Level 104 MMOL/L (98-107) Carbon Dioxide Level 24 MMOL/L (21-32) Anion Gap 3 mmol/L (5-15) Blood Urea Nitrogen 39 mg/dL (7-18) Creatinine 1.0 MG/DL (0.55-1.30) Estimat Glomerular Filtration Rate > 60 mL/min (>60) Glucose Level 107 MG/DL (74-106) Calcium Level 9.2 MG/DL (8.5-10.1) Total Bilirubin 1.1 MG/DL (0.2-1.0) Direct Bilirubin 0.5 MG/DL (0.0-0.3) Aspartate Amino Transf (AST/SGOT) 56 U/L (15-37) Alanine Aminotransferase (ALT/SGPT) 67 U/L (12-78) Alkaline Phosphatase 429 U/L (46-116) Total Protein 7.5 G/DL (6.4-8.2) Albumin 2.4 G/DL (3.4-5.0) Globulin 5.1 g/dL Albumin/Globulin Ratio 0.5 (1.0-2.7) Height (Feet): 5 Height (Inches): 10.00 Weight (Pounds): 112 Objective Physical Exam General: alert, Chronically Ill Head: other - Large right-sided craniotomy defect well-heale ++, tracheotomy/vent Respiratory: crackles, rales, other - right side chest wall tenderness Cardiovascular: tachycardia Gastrointestinal: normal inspection, soft, gt++ Musk: decreased range of motion, other - atrophic, motor weakness Neurologic: alert, motor weakness, other - left hemineglect Psychiatric: normal inspection Skin: no rash : garcia++ Roshan Castillo MD Aug 30, 2020 07:08
--- NOTE | 2020-08-30 07:14 | NUR ---
NURSE HAND-OFF REPORT: Latest Vital Signs: Temperature 99.5 , Pulse 85 , B/P 127 /63 , Respiratory Rate 15 , O2 SAT 100 , Mechanical Ventilator AC 12, VT 500 , O2 Flow Rate 40% . Vital Sign Comment: EKG Rhythm: Sinus Rhythm Rhythm change?: N MD Notified?: MD Response: Latest Stevens Fall Score: 50 Fall Risk: High Risk Safety Measures: Call light Within Reach, Bed Alarm Zone 2, Side Rails Side Rails x2, Bed position Low and Locked. Fall Precautions: Yellow Socks Yellow Gown Door Sign Patient Fall Education Report given to DONITA STODDARD . PLAN: Insert New PICC and D/C old PICC after insertion.
--- NOTE | 2020-08-30 07:15 | NUR ---
NURSE NOTES: Received patiet from ARLYN George. Pt is asleep, easy to arouse with name, in no distress. 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 Pt is afebrile at this time. Mechanically ventilated with a 7 ETT noted 23 cm at the lip with the following settings: AC 12 TV 500 FiO2 40% Peep 0. Rectal tube noted draining brown, liquid stool. GT noted running Vital AF 1.2 at 70 cc/hr. garcia cath noted draining clear, yellow urine in drainage bag by gravity. Skin alterations noted. Pt has a SHER PICC with dry and intact dressing running D5W at 75 cc/hr. Bed in lowest position, alarm on, side rails up x 2 and padded per seizure precaution, call light within reach, SCDs on bilat lower extremities. Contact isolation observed. Will continue to monitor.
--- NOTE | 2020-08-30 08:04 | General Progress Note ---
Subjective ROS Limited/Unobtainable: No Constitutional: Reports: fever, malaise, weakness HEENT: Reports: no symptoms Cardiovascular: Reports: no symptoms Respiratory: Reports: shortness of breath, sputum Gastrointestinal/Abdominal: Reports: difficulty swallowing Genitourinary: Reports: no symptoms Neurologic/Psychiatric: Reports: pre-existing deficit, seizure Endocrine: Reports: no symptoms Hematologic/Lymphatic: Reports: anemia Allergies: Coded Allergies: ADHESIVE TAPE (Verified Allergy, Unknown, 07/20/20) Uncoded Allergies: TAPE (Allergy, Unknown, 08/07/20) All Systems: reviewed and negative except above Subjective no events. stable on the vent. scheduled for trach tomorrow. low grade temps. 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 +serratia sputum. Objective Last 24 Hour Vital Signs Date Time Temp Pulse Resp B/P (MAP) Pulse Ox O2 Delivery O2 Flow Rate FiO2 08/30/20 07:00 82 16 132/69 (90) 100 08/30/20 06:00 85 15 127/63 (84) 100 08/30/20 05:00 76 13 129/67 (87) 100 08/30/20 04:00 Mechanical Ventilator Mechanical Ventilator 08/30/20 04:00 76 08/30/20 04:00 40 08/30/20 04:00 99.5 82 14 154/70 (98) 100 08/30/20 03:03 82 13 40 08/30/20 03:00 80 13 136/69 (91) 100 08/30/20 02:00 79 12 132/75 (94) 100 08/30/20 01:00 82 13 133/76 (95) 100 08/30/20 00:00 Mechanical Ventilator Mechanical Ventilator 08/30/20 00:00 99.2 84 15 141/68 (92) 100 08/30/20 00:00 40 08/30/20 00:00 86 13 135/58 (83) 100 08/29/20 23:18 84 08/29/20 23:00 87 15 40 08/29/20 23:00 87 16 121/65 (83) 97 08/29/20 22:00 94 18 125/81 (96) 98 08/29/20 21:06 75 18 123/65 100 08/29/20 21:02 99.7 08/29/20 21:00 90 17 124/52 (76) 100 08/29/20 20:36 90 20 130/60 100 08/29/20 20:00 100.2 89 16 130/62 (84) 100 08/29/20 20:00 Mechanical Ventilator Mechanical Ventilator 08/29/20 20:00 40 08/29/20 19:18 89 08/29/20 19:00 95 16 141/78 (99) 100 08/29/20 18:50 95 19 40 08/29/20 17:00 93 21 148/72 (97) 100 08/29/20 16:00 98.7 98 20 136/64 (88) 100 08/29/20 16:00 40 08/29/20 16:00 96 08/29/20 16:00 Mechanical Ventilator Mechanical Ventilator 08/29/20 15:05 91 15 40 08/29/20 15:00 91 18 128/65 (86) 100 08/29/20 14:08 96 22 134/73 100 08/29/20 14:00 96 22 134/73 (93) 100 08/29/20 13:38 94 24 124/54 100 08/29/20 13:00 86 16 124/54 (77) 100 08/29/20 12:00 Mechanical Ventilator Mechanical Ventilator 08/29/20 12:00 98.4 79 15 129/58 (81) 100 08/29/20 12:00 74 08/29/20 12:00 40 08/29/20 11:00 84 21 136/43 (74) 100 08/29/20 10:35 76 17 40 08/29/20 10:00 78 14 133/57 (82) 100 08/29/20 09:00 85 16 137/55 (82) 100 Intake and Output 08/29/20 08/30/20 18:59 06:59 Intake Total 2280 ml 2305 ml Output Total 3015 ml 1370 ml Balance -735 ml 935 ml Free Water 50 ml 90 ml IV Total 1390 ml 1305 ml Tube Feeding 840 ml 910 ml Output Urine Total 2915 ml 1370 ml Stool Total 100 ml # Bowel Movements 3 Laboratory Tests 08/30/20 04:00: White Blood Count 18.9H, Red Blood Count 2.02L, Hemoglobin 6.5*L, Hematocrit 19.0L, Mean Corpuscular Volume 94, Mean Corpuscular Hemoglobin 32.1H, Mean Corpuscular Hemoglobin Concent 34.0, Red Cell Distribution Width 16.9H, Platelet Count 332, Mean Platelet Volume 8.8, Neutrophils (%) (Auto) , Lymphocytes (%) (Auto) , Monocytes (%) (Auto) , Eosinophils (%) (Auto) , Basophils (%) (Auto) , Differential Total Cells Counted 100, Neutrophils % (Manual) 57, Lymphocytes % (Manual) 15L, Monocytes % (Manual) 17H, Eosinophils % (Manual) 10H, Basophils % (Manual) 1, Band Neutrophils 0, Platelet Estimate Adequate, Platelet Morphology Normal, Anisocytosis 1+, Prothrombin Time 13.0H, Prothromb Time International Ratio 1.2H, Activated Partial Thromboplast Time 36H, Sodium Level 131L, Potassium Level 3.9, Chloride Level 104, Carbon Dioxide Level 24, Anion Gap 3L, Blood Urea Nitrogen 39H, Creatinine 1.0, Estimat Glomerular Filtration Rate > 60, Glucose Level 107H, Calcium Level 9.2, Total Bilirubin 1.1H, Direct Bilirubin 0.5H, Aspartate Amino Transf (AST/SGOT) 56H, Alanine Aminotransferase (ALT/SGPT) 67, Alkaline Phosphatase 429H, Total Protein 7.5, Albumin 2.4L, Globulin 5.1, Albumin/Globulin Ratio 0.5L Height (Feet): 5 Height (Inches): 10.00 Weight (Pounds): 112 Objective General Appearance: WD/WN, lethargic. orally intubated EENT: normal ENT inspection Neck: normal alignment Cardiovascular: normal peripheral pulses, normal rate Respiratory/Chest: chest wall non-tender, lungs clear, normal breath sounds Abdomen: normal bowel sounds, non tender, soft, no organomegaly Edema: no edema noted Arm (L), no edema noted Arm (R) Neurologic: weak/sedated Assessment/Plan Problem List: (1) Pneumonia ICD Codes: J18.9 - Pneumonia, unspecified organism SNOMED: 480442714 Qualifiers: Qualified Codes: J18.9 - Pneumonia, unspecified organism (2) Sickle cell anemia ICD Codes: D57.1 - Sickle-cell disease without crisis SNOMED: 718716848 Qualifiers: Qualified Codes: D57.00 - Hb-SS disease with crisis, unspecified (3) Severe sepsis ICD Codes: A41.9 - Sepsis, unspecified organism; R65.20 - Severe sepsis without septic shock SNOMED: 15894927 Status: stable, not improved Assessment/Plan: cont vent support wean as able monitor abg resp care suctioning as needed trach tomorrow dvt/stress ulcer prophylaxis ivf adjusted to d5ns picc change today transfuse as needed repeats labs in am d/w mother Lalo Ahumada MD Aug 30, 2020 08:04
[2020-08-30] MEDS: Pantoprazole Inj IVP SCH ×2 (08:19→20:06)
[2020-08-30] MEDS: FERRIPROX GT SCH ×3 (08:19→17:58)
[2020-08-30] MEDS: DEFERASIROX 360 MG GT SCH (08:19)
[2020-08-30] MEDS: D5NS 1,000 ML IV SCH (08:20)
[2020-08-30] MEDS: Linezolid 600mg/300ml (Pre-Mix) IVPB SCH ×2 (08:20→20:06)
--- NOTE | 2020-08-30 09:00 | NUR ---
NURSE NOTES: Oral care provided. Tolerating current vent settings.
[2020-08-30] MEDS: levETIRAcetam 1,000mg/NS100ml 100 ML IVPB SCH ×2 (09:26→20:06)
[2020-08-30] MEDS ORDERED: Lidocaine 1% Plain 30 ml INJ PRN (10:23)
[2020-08-30] MEDS ORDERED: Heparin1,000 units/500ml Premix(Conc:2 units/ml) IV PRN (10:23)
--- NOTE | 2020-08-30 11:00 | NUR ---
NURSE NOTES: Dr. Zhao in the unit. He said that he might do tracheostomy procedure today instead of tomorrow. Will hold GTF.
[2020-08-30] MEDS: Morphine Sulfate 2mg/ml Inj(IV/IM USE ONLY) IVP PRN (11:47)
[2020-08-30] MEDS ORDERED: Lidocaine 1% 10mg/ml/Epi 0.005mg/ml 30ml vial INJ ONE (12:40)
--- NOTE | 2020-08-30 13:25 | NUR ---
NURSE NOTES: Spoke with patient's mother via telephone. Updated with plan of care.
--- NOTE | 2020-08-30 13:30 | Surgery Progress Note ---
Surgery Progress Note Subjective Additional Comments revision tracheostomy today Objective Last 24 Hour Vital Signs Date Time Temp Pulse Resp B/P (MAP) Pulse Ox O2 Delivery O2 Flow Rate FiO2 08/30/20 13:00 83 17 126/67 (86) 100 08/30/20 12:00 40 08/30/20 12:00 Mechanical Ventilator Mechanical Ventilator 08/30/20 12:00 81 17 124/65 (84) 100 08/30/20 11:35 80 08/30/20 11:00 85 15 127/68 (87) 100 08/30/20 10:00 84 14 130/66 (87) 100 08/30/20 09:00 85 17 134/65 (88) 100 08/30/20 08:00 Mechanical Ventilator Mechanical Ventilator 08/30/20 08:00 99.7 85 15 121/61 (81) 100 08/30/20 08:00 40 08/30/20 07:41 76 08/30/20 07:28 83 15 40 08/30/20 07:00 82 16 132/69 (90) 100 08/30/20 06:00 85 15 127/63 (84) 100 08/30/20 05:00 76 13 129/67 (87) 100 08/30/20 04:00 Mechanical Ventilator Mechanical Ventilator 08/30/20 04:00 76 08/30/20 04:00 40 08/30/20 04:00 99.5 82 14 154/70 (98) 100 08/30/20 03:03 82 13 40 08/30/20 03:00 80 13 136/69 (91) 100 08/30/20 02:00 79 12 132/75 (94) 100 08/30/20 01:00 82 13 133/76 (95) 100 08/30/20 00:00 Mechanical Ventilator Mechanical Ventilator 08/30/20 00:00 99.2 84 15 141/68 (92) 100 08/30/20 00:00 40 08/30/20 00:00 86 13 135/58 (83) 100 08/29/20 23:18 84 08/29/20 23:00 87 15 40 08/29/20 23:00 87 16 121/65 (83) 97 08/29/20 22:00 94 18 125/81 (96) 98 08/29/20 21:06 75 18 123/65 100 08/29/20 21:02 99.7 08/29/20 21:00 90 17 124/52 (76) 100 08/29/20 20:36 90 20 130/60 100 08/29/20 20:00 100.2 89 16 130/62 (84) 100 08/29/20 20:00 Mechanical Ventilator Mechanical Ventilator 08/29/20 20:00 40 08/29/20 19:18 89 08/29/20 19:00 95 16 141/78 (99) 100 08/29/20 18:50 95 19 40 08/29/20 17:00 93 21 148/72 (97) 100 08/29/20 16:00 98.7 98 20 136/64 (88) 100 08/29/20 16:00 40 08/29/20 16:00 96 08/29/20 16:00 Mechanical Ventilator Mechanical Ventilator 08/29/20 15:05 91 15 40 08/29/20 15:00 91 18 128/65 (86) 100 08/29/20 14:08 96 22 134/73 100 08/29/20 14:00 96 22 134/73 (93) 100 08/29/20 13:38 94 24 124/54 100 I&O Intake and Output 08/29/20 08/30/20 18:59 06:59 Intake Total 2280 ml 2305 ml Output Total 3015 ml 1370 ml Balance -735 ml 935 ml Free Water 50 ml 90 ml IV Total 1390 ml 1305 ml Tube Feeding 840 ml 910 ml Output Urine Total 2915 ml 1370 ml Stool Total 100 ml # Bowel Movements 3 Dressing: other Wound: other Cardiovascular: RSR Respiratory: decreased breath sounds Abdomen: soft, non-tender, present bowel sounds Extremities: no edema, no tenderness, no cyanosis Laboratory Tests Test 08/30/20 04:00 White Blood Count 18.9 K/UL (4.8-10.8) H Red Blood Count 2.02 M/UL (4.70-6.10) L Hemoglobin 6.5 G/DL (14.2-18.0) *L Hematocrit 19.0 % (42.0-52.0) L Mean Corpuscular Volume 94 FL (80-99) Mean Corpuscular Hemoglobin 32.1 PG (27.0-31.0) H Mean Corpuscular Hemoglobin Concent 34.0 G/DL (32.0-36.0) Red Cell Distribution Width 16.9 % (11.6-14.8) H Platelet Count 332 K/UL (150-450) Mean Platelet Volume 8.8 FL (6.5-10.1) Neutrophils (%) (Auto) % (45.0-75.0) Lymphocytes (%) (Auto) % (20.0-45.0) Monocytes (%) (Auto) % (1.0-10.0) Eosinophils (%) (Auto) % (0.0-3.0) Basophils (%) (Auto) % (0.0-2.0) Differential Total Cells Counted 100 Neutrophils % (Manual) 57 % (45-75) Lymphocytes % (Manual) 15 % (20-45) L Monocytes % (Manual) 17 % (1-10) H Eosinophils % (Manual) 10 % (0-3) H Basophils % (Manual) 1 % (0-2) Band Neutrophils 0 % (0-8) Platelet Estimate Adequate Platelet Morphology Normal Anisocytosis 1+ Prothrombin Time 13.0 SEC (9.30-11.50) H Prothromb Time International Ratio 1.2 (0.9-1.1) H Activated Partial Thromboplast Time 36 SEC (23-33) H Sodium Level 131 MMOL/L (136-145) L Potassium Level 3.9 MMOL/L (3.5-5.1) Chloride Level 104 MMOL/L (98-107) Carbon Dioxide Level 24 MMOL/L (21-32) Anion Gap 3 mmol/L (5-15) L Blood Urea Nitrogen 39 mg/dL (7-18) H Creatinine 1.0 MG/DL (0.55-1.30) Estimat Glomerular Filtration Rate > 60 mL/min (>60) Glucose Level 107 MG/DL (74-106) H Calcium Level 9.2 MG/DL (8.5-10.1) Total Bilirubin 1.1 MG/DL (0.2-1.0) H Direct Bilirubin 0.5 MG/DL (0.0-0.3) H Aspartate Amino Transf (AST/SGOT) 56 U/L (15-37) H Alanine Aminotransferase (ALT/SGPT) 67 U/L (12-78) Alkaline Phosphatase 429 U/L (46-116) H Total Protein 7.5 G/DL (6.4-8.2) Albumin 2.4 G/DL (3.4-5.0) L Globulin 5.1 g/dL Albumin/Globulin Ratio 0.5 (1.0-2.7) L Plan Problems: (1) Pneumonia (2) Sickle cell anemia (3) Tachycardia (4) Severe sepsis (5) Sickle cell crisis (6) Sepsis Assessment & Plan: 35-year-old male sickle cell multiple comorbidities history of craniotomy trach feeding tube prior port infected removed see prior admission and consult and operative notes. Currently presents with significant leukocytosis fevers hypotension in intensive care unit wound site evaluated unlikely etiology. Trach evaluated may consider changing. LFTs noted elevated. Ultrasound ordered pending results trend labs continue IV antibiotics appreciate infectious disease input will follow with recommendations thank you for let me participate in patient's care KUB and US noted labs reviewed transfuse prbc prn trach change peg changed line out picc placed persistent wbc h/h noted anemia ss better since new trach Shiley [address] secretions manageable Trach replaced at bedside 925 for malpositioning it was identified he does have a false track as well. Will ensure trach is in correct positioning daily every shift trach not stable removed and intubated 08/25 on ett vent will need trach revision discussed with mother and medical teams trach and picc pulmonary arteries: Evaluation for pulmonary embolus is limited due to breathing motion artifact. No central pulmonary emboli are identified. Aorta: No acute findings. No thoracic aortic aneurysm. Lungs: There are moderately consolidating infiltrates identified in both lower lobes dependently with mild additional patchy infiltrates dependently in both upper lobes. The findings are consistent with bilateral nonspecific pneumonia. Aspiration pneumonia could give this appearance. The infiltrates are only somewhat typical of Covid 19. Confidence is immediate. Pleural space: Unremarkable. No significant effusion. No pneumothorax. Heart: Unremarkable. No cardiomegaly. No significant pericardial effusion. No evidence of RV dysfunction. Bones/joints: No acute fracture. No dislocation. Soft tissues: Unremarkable. Lymph nodes: Unremarkable. No enlarged lymph nodes. Tubes, lines and devices: There is a tracheostomy tube in good position. IMPRESSION: 1. There are moderately consolidating infiltrates identified in both lower lobes dependently with mild additional patchy infiltrates dependently in both upper lobes. The findings are consistent with bilateral nonspecific pneumonia. Aspiration pneumonia could give this appearance. The infiltrates are only somewhat typical of Covid 19. Confidence is immediate. 2. Evaluation for pulmonary embolus is limited due to breathing motion artifact. No central pulmonary emboli are identified. The liver is homogeneous. We cannot identify a normal spleen. There is dense crescentic calcification in the left upper quadrant at the expected location of the spleen. Gallbladder is absent. The pancreas is unremarkable. Adrenals are normal in morphology. There is a small punctate cortical calcification left kidney. No hydronephrosis bilaterally There is a G-tube in place. Gas-filled bowel loops identified throughout the abdomen and pelvis. No discrete transition point or obstruction. Appendix partially visualized. There is some free fluid in the pelvis. There is no free air. There is a mildly prominent lymph nodes noted in the upper to mid retroperitoneum noted of undetermined etiology or significance. Rivera catheter noted in the bladder. The reservoir for the penile prosthesis is identified in the left lower pelvis. There is a right femoral venous catheter in place. Diffuse sclerosis of the bony pelvis and hips noted of undetermined etiology. IMPRESSION: BILATERAL LOWER LOBE PNEUMONIAS. ALSO SOME HAZY INFILTRATES IN THE UPPER LOBES. A NORMAL SPLEEN IS NOT VISUALIZED. THERE IS A DENSE CRESCENTIC CALCIFICATION LEFT UPPER QUADRANT AT THE EXPECTED LOCATION OF THE SPLEEN. 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 PUNCTATE CORTICAL CALCIFICATION LEFT KIDNEY. NO HYDRONEPHROSIS. PROMINENT LYMPH NODES IN THE UPPER TO MID RETROPERITONEUM OF UNDETERMINED ETIOLOGY OR SIGNIFICANCE. G-TUBE, RIVERA CATHETER, RIGHT FEMORAL CATHETER AND PENILE PROSTHESIS NOTED IN PLACE. MILD DIFFUSE SCLEROSIS OF THE BONY PELVIS AND BOTH HIPS OF UNDETERMINED ETIOLOGY. QUESTION HISTORY OF RENAL OSTEODYSTROPHY. There is a large craniectomy defect in the right frontal temporal region. Diffuse age-related volume loss demonstrated. 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 No definite acute infarct seen. There is no hemorrhage, mass effect or shift. Ventricles and cisterns as well as brainstem and posterior fossa appear unremarkable. The sellar region is normal. Sinuses, mastoid air cells and bony calvarium appear intact. IMPRESSION: Large right frontotemporal craniectomy defect. 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 No definite acute intracranial abnormality. (7) Port-A-Cath in place Assessment & Plan: prior removal for infection site okay dressings changed no active infection from wound picc Harmna Zhao Aug 30, 2020 13:30
--- NOTE | 2020-08-30 14:00 | NUR ---
NURSE NOTES: patient is off the unit. Went to operating room for tracheostomy.
[2020-08-30] MEDS ORDERED: Phenylephrine 10mg/ml Vial ONE (14:37)
--- NOTE | 2020-08-30 14:47 | Brief Operative Note ---
Immediate Post Operative Note Operative Note Pre-op Diagnosis: trach complication Procedure: Tracheostomy Post-op Diagnosis: same as pre-op Surgeon: Harman Zhao Anesthesiologist: Sheri hoskins Anesthesia: general, local Specimen: none Complications: none Condition: stable Fluids: See records Estimated Blood Loss: minimal Drains: none Implant(s) used?: Harman Caputo Aug 30, 2020 14:47
--- NOTE | 2020-08-30 14:55 | NUR ---
NURSE NOTES: Patient is back from OR. Placed in cardiac bed. Sinus tachycardia in the monitor, heart rate of 104. Tracheostomy size of shiley 6 XLT noted, asymptomatic. Connected to mechanical ventilator, Ac mode of 16, tidal volume of 550, FiO2 of 40%, no PEEP. No respiratory distress at this time.
--- NOTE | 2020-08-30 15:02 | Immediate Post-Op Evaluation ---
Immediate Post-Op Evalulation Immediate Post-Op Evalulation Procedure: Tracheostomy Date of Evaluation: Aug 30, 2020 Time of Evaluation: 14:55 IV Fluids: 200 Blood Pressure Systolic: 135 Blood Pressure Diastolic: 75 Pulse Rate: 110 Respiratory Rate: 12 O2 Sat by Pulse Oximetry: 100 Nausea: No Vomiting: No Complications none Patient Status: reacts, patent, ventilated - AC 40% 600 12/5 Hydration Status: adequate Drug: none Sheri Franks CRNA Aug 30, 2020 15:02
--- NOTE | 2020-08-30 15:05 | NUR ---
NURSE NOTES: Informed Patient's mother via telephone that patient is back in the unit with tracheostomy.
--- NOTE | 2020-08-30 15:09 | Anethesia Preoperative Eval ---
Anesthesia Pre-op PMH/ROS General Date of Evaluation: Aug 30, 2020 Time of Evaluation: 14:00 Anesthesiologist: jorge a ASA Score: ASA 4 Mallampati Score Class I : Soft palate, uvula, fauces, pillars visible Class II: Soft palate, uvula, fauces visible Class III: Soft palate, base of uvula visible Class IV: Only hard plate visible Mallampati Classification: Class III Surgeon: Pavel Diagnosis: Resp Failure Surgical Procedure: Tracheostomy Anesthesia History: none Allergies: Coded Allergies: ADHESIVE TAPE (Verified Allergy, Unknown, 07/20/20) Uncoded Allergies: TAPE (Allergy, Unknown, 08/07/20) Medications: see eMAR Patient NPO?: Yes NPO Date: Aug 30, 2020 NPO Time: 00:01 Past Medical History Cardiovascular: Reports: other - sepsis; fevers; Denies: HTN, CAD, [place], valve dz, arrhythmia Pulmonary: Reports: other - Resp failure; 7.0 Ett in situ; Trach ; Denies: asthma, COPD, ABI Gastrointestinal/Genitourinary: Denies: GERD, CRI, ESRD, other Neurologic/Psychiatric: Reports: dementia, other - seizure hx; Denies: CVA, depression/anxiety, TIA Endocrine: Denies: DM, hypothyroidism, steroids, other Hematology/Immune: Denies: anemia, DVT, bleeding disorder, other Musculoskeletal/Integumentary: Reports: other - malnutrition; Denies: OA, RA, DJD, DDD, edema Other: other - sickle cell crisis PSxH Narrative: craniotomy Anesthesia Pre-op Phys. Exam Physician Exam Last Vital Signs Date Time Temp Pulse Resp B/P (MAP) Pulse Ox O2 Delivery O2 Flow Rate FiO2 08/30/20 15:02 110 12 100 08/30/20 13:00 126/67 (86) 08/30/20 12:00 40 08/30/20 12:00 Mechanical Ventilator Mechanical Ventilator 08/30/20 08:00 99.7 Constitutional: other - Resp Failure; Neurologic: other - consent from next of kin Cardiovascular: RRR Respiratory: CTA Gastrointestinal: S/NT/ND Airway Exam Mallampati Classification ETT insitu 7.0 Mallampati Score: Class III MO: limited Dentures: no upper, no lower Anesthesia Pre-op A/P Labs Hematology Test 08/30/20 04:00 White Blood Count 18.9 K/UL (4.8-10.8) H Red Blood Count 2.02 M/UL (4.70-6.10) L Hemoglobin 6.5 G/DL (14.2-18.0) *L Hematocrit 19.0 % (42.0-52.0) L Mean Corpuscular Volume 94 FL (80-99) Mean Corpuscular Hemoglobin 32.1 PG (27.0-31.0) H Mean Corpuscular Hemoglobin Concent 34.0 G/DL (32.0-36.0) Red Cell Distribution Width 16.9 % (11.6-14.8) H Platelet Count 332 K/UL (150-450) Mean Platelet Volume 8.8 FL (6.5-10.1) Neutrophils (%) (Auto) % (45.0-75.0) Lymphocytes (%) (Auto) % (20.0-45.0) Monocytes (%) (Auto) % (1.0-10.0) Eosinophils (%) (Auto) % (0.0-3.0) Basophils (%) (Auto) % (0.0-2.0) Differential Total Cells Counted 100 Neutrophils % (Manual) 57 % (45-75) Lymphocytes % (Manual) 15 % (20-45) L Monocytes % (Manual) 17 % (1-10) H Eosinophils % (Manual) 10 % (0-3) H Basophils % (Manual) 1 % (0-2) Band Neutrophils 0 % (0-8) Platelet Estimate Adequate Platelet Morphology Normal Anisocytosis 1+ Coagulation Test 08/30/20 04:00 Prothrombin Time 13.0 SEC (9.30-11.50) H Prothromb Time International Ratio 1.2 (0.9-1.1) H Activated Partial Thromboplast Time 36 SEC (23-33) H Chemistry Test 08/30/20 04:00 Sodium Level 131 MMOL/L (136-145) L Potassium Level 3.9 MMOL/L (3.5-5.1) Chloride Level 104 MMOL/L (98-107) Carbon Dioxide Level 24 MMOL/L (21-32) Anion Gap 3 mmol/L (5-15) L Blood Urea Nitrogen 39 mg/dL (7-18) H Creatinine 1.0 MG/DL (0.55-1.30) Estimat Glomerular Filtration Rate > 60 mL/min (>60) Glucose Level 107 MG/DL (74-106) H Calcium Level 9.2 MG/DL (8.5-10.1) Total Bilirubin 1.1 MG/DL (0.2-1.0) H Direct Bilirubin 0.5 MG/DL (0.0-0.3) H Aspartate Amino Transf (AST/SGOT) 56 U/L (15-37) H Alanine Aminotransferase (ALT/SGPT) 67 U/L (12-78) Alkaline Phosphatase 429 U/L (46-116) H Total Protein 7.5 G/DL (6.4-8.2) Albumin 2.4 G/DL (3.4-5.0) L Globulin 5.1 g/dL Albumin/Globulin Ratio 0.5 (1.0-2.7) L Studies Pre-op Studies: EKG - st Risk Assessment & Plan Assessment: covid neg at this time Plan: General Status Change Before Surgery: No Pre-Antibiotics Drug: none Sheri Franks CRNA Aug 30, 2020 15:08
--- NOTE | 2020-08-30 15:22 | 48 Hour Post Anesthesia Eval ---
Post Anesthesia Evaluation Procedure: Tracheostomy Date of Evaluation: Aug 30, 2020 Time of Evaluation: 15:21 Blood Pressure Systolic: 100 0: 50 Pulse Rate: 100 O2 Sat by Pulse Oximetry: 99 Airway: patent, other - mech vent via trach Nausea: No Vomiting: No Hydration Status: other - s/p 1 unit PRBC transfused Cardiopulmonary Status: stable Mental Status/LOC: patient returned to baseline Post-Anesthesia Complications: none Follow-up care needed: N/A Sheri Franks CRNA Aug 30, 2020 15:22
--- NOTE | 2020-08-30 16:16 | NUR ---
CASE MANAGEMENT:REVIEW 08/30/20 SI:SEPSIS (VRE BACTEREMIA OF 08/26/20) TRACH/VENT/GTUBE 99.7 85 15 121/61 100% ON VENT SUPPORT W/40% FIO2 WBC+18.9 H/H-6.5/19.0 NA-131 BUN+39 IS: IV CEFEPIME Q12 iv linezolid q12 IVF@50/HR IV KEPPRA Q12 IV PROTONIX Q12 HEPARIN SQ Q IV MORPHINE Q4HRS PRN : ICU STATUS DCP: FROM [facility]: TRACH DISLODGED OVER THE WEEKEND ~ PATIENT WAS INTUBATED TO SURGERY TODAY FOR TRACH PLACEMENT
--- NOTE | 2020-08-30 16:30 | Operative Note - Dictated ---
DATE OF OPERATION: 08/30/2020 PREOPERATIVE DIAGNOSES: 1. Trach complication. 2. Respiratory insufficiency. 3. Prolonged ventilator support required. POSTOPERATIVE DIAGNOSES: 1. Respiratory insufficiency. 2. Trach complication. 3. Prolonged respiratory support required. 4. Tracheomalacia. OPERATION PERFORMED: 1. Bronchoscopy with deep suctioning, evaluation of the tracheobronchial tree. 2. Tracheostomy open revision. ATTENDING SURGEON: Harman Zhao MD. METAL FENCE ERECTOR: None. ANESTHESIOLOGIST: Sheri Franks CRNA. ANESTHESIA: General REGULATORY SUBMISSIONS SPECIALIST plus local. ESTIMATED BLOOD LOSS: Minimal. IV FLUIDS: Please see anesthesia records. COMPLICATIONS: None. DRAINS: None. COUNTS: Sponge and needle counts correct x2. WOUND CLASSIFICATION: Class 3. IMPLANTS: 6-Yoruba Shiley XLT distal. INDICATIONS FOR PROCEDURE: This is a 35-year-old male with history of craniotomy, trach, PEG, chronically ill, care dependent, who had a tracheostomy on support for some time and recently was identified to have his trach displaced. Attempt to replacement initially made by Respiratory Therapy, but trach continued to come out again. After evaluation, seemed to be a false tract and edema with potential loss of tracheostomy tract and therefore patient was intubated for airway protection and safety. The edema in the neck and tracheostomy site were allowed to resolve and heal. Once patient was improved, plan for revision tracheostomy and bronchoscopy was made. Care was discussed with the patient's mother who expressed understanding and consented to procedure. Medical teams, Pulmonology, ICU teams and in agreement with care plan and decision making. OPERATIVE NOTE: Patient was taken to the operating room and placed on operating table in supine position with bilateral arms down. All bony prominences were well padded. SCDs placed. Preoperative time-out taken identifying the patient, procedure, operative staff, and surgical staff. Prior to entering the operating room, patient already had lines and tubes and ET tube in place on ventilatory support. Shoulder roll was placed and neck was hyperextended. The neck was prepped and draped in standard surgical fashion. We began by bronchoscopy and bronchoscopy was performed through the ET tube, taken down the ET tube to the trachea and the diana was identified. Some suctioning was required from bilateral bronchial trees. Once this was completed, no significant abnormalities below the diana was identified. As remaining of the trachea was identified in the proximal portions distal to the cords, there was a component of tracheomalacia identified. This was likely why the standard tracheostomy 6 or 8-Yoruba were fitting appropriately. Therefore, a decision was made to proceed with new tracheostomy with revision using a 6-Yoruba distal XLT trach. The ET tube was withdrawn to the level of just below the cords with in place for evaluation under direct visualization. The prior incision for the tracheostomy had already pretty much well healed at this time. So, a small portion was used and extended inferiorly and a window was made in the skin through the subcutaneous tissue, platysma, and in between the strap muscles around the area of the old site without entering the false tract. Under direct visualization of the bronchoscopy, the trachea was entered without complication. A bougie was placed for airway protection. The tracheal window was made and identified and tracheomalacia continued to be identified. A 6-Yoruba Shiley distal XLT was placed over the bougie without complication. This was directly visualized using a bronchoscopy. The balloon was insufflated and patient was ventilated through the newly placed tracheostomy with good end-tidal CO2 and volumes. The patient was then brought through the new tracheostomy and the diana was identified. Deep suctioning was performed. The trach tie and dressings were applied. Patient tolerated the procedure well. Prior ET tube was removed. Patient was taken back to intensive care in stable condition. Harman Zhao M.D. DR: KATERINE JOB#: [id number] CC:
--- NOTE | 2020-08-30 17:00 | NUR ---
NURSE NOTES: Bedbath provided by 2 staff.
--- NOTE | 2020-08-30 17:51 | Critical Care Progress Note ---
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 Port-A-Cath Status post removal of implanted right chest wall Port-A-Cath Sickle cell crisis Sickle cell anemia Chronic respiratory failure, ventilator dependent, with tracheostomy status Transaminitis Seizure disorder acute pneumonia leukocytosis recurrent sepsis PLAN care noted CXR worse d/w surgery IV antibiotics per ID respiratory care as is Ventilatory support- volume ventilation SNF meds supportive care suction no wean planned monitor wbc per ID oxygen therapy and titrate prognosis guarded medications/laboratory data/nursing notes reviewed in detail note reviewed and edited care discussed with RN and RT Critical Care - Subjective ROS Limited/Unobtainable: Yes EKG Rhythm: Sinus Rhythm Residuals: minimal Tube Feeding Tolerated: yes I&O: Intake and Output 08/29/20 08/30/20 19:00 07:00 Intake Total 2280 ml 2305 ml Output Total 2915 ml 1770 ml Balance -635 ml 535 ml Free Water 50 ml 90 ml IV Total 1390 ml 1305 ml Tube Feeding 840 ml 910 ml Output Urine Total 2815 ml 1370 ml Stool Total 100 ml 400 ml # Bowel Movements 3 Critical Care - Objective ET-Tube: 7.0 ET Position: 23 Last 24 Hour Vital Signs Date Time Temp Pulse Resp B/P (MAP) Pulse Ox O2 Delivery O2 Flow Rate FiO2 08/30/20 17:00 85 18 110/75 (87) 100 08/30/20 16:30 83 13 112/68 (83) 100 08/30/20 16:00 Mechanical Ventilator Mechanical Ventilator 08/30/20 16:00 40 08/30/20 16:00 89 14 114/72 (86) 100 08/30/20 15:40 92 08/30/20 15:30 93 14 123/50 (74) 100 08/30/20 15:22 100 99 08/30/20 15:10 74 15 40 08/30/20 15:02 110 12 100 08/30/20 15:00 112 13 128/93 (105) 99 08/30/20 13:00 83 17 126/67 (86) 100 08/30/20 12:00 40 08/30/20 12:00 Mechanical Ventilator Mechanical Ventilator 08/30/20 12:00 81 17 124/65 (84) 100 08/30/20 11:35 80 08/30/20 11:05 87 15 40 08/30/20 11:00 85 15 127/68 (87) 100 08/30/20 10:00 84 14 130/66 (87) 100 08/30/20 09:00 85 17 134/65 (88) 100 08/30/20 08:00 Mechanical Ventilator Mechanical Ventilator 08/30/20 08:00 99.7 85 15 121/61 (81) 100 08/30/20 08:00 40 08/30/20 07:41 76 08/30/20 07:28 83 15 40 08/30/20 07:00 82 16 132/69 (90) 100 08/30/20 06:00 85 15 127/63 (84) 100 08/30/20 05:00 76 13 129/67 (87) 100 08/30/20 04:00 Mechanical Ventilator Mechanical Ventilator 08/30/20 04:00 76 08/30/20 04:00 40 08/30/20 04:00 99.5 82 14 154/70 (98) 100 08/30/20 03:03 82 13 40 08/30/20 03:00 80 13 136/69 (91) 100 08/30/20 02:00 79 12 132/75 (94) 100 08/30/20 01:00 82 13 133/76 (95) 100 08/30/20 00:00 Mechanical Ventilator Mechanical Ventilator 08/30/20 00:00 99.2 84 15 141/68 (92) 100 08/30/20 00:00 40 08/30/20 00:00 86 13 135/58 (83) 100 08/29/20 23:18 84 08/29/20 23:00 87 15 40 08/29/20 23:00 87 16 121/65 (83) 97 08/29/20 22:00 94 18 125/81 (96) 98 08/29/20 21:06 75 18 123/65 100 08/29/20 21:02 99.7 08/29/20 21:00 90 17 124/52 (76) 100 08/29/20 20:36 90 20 130/60 100 08/29/20 20:00 100.2 89 16 130/62 (84) 100 08/29/20 20:00 Mechanical Ventilator Mechanical Ventilator 08/29/20 20:00 40 08/29/20 19:18 89 08/29/20 19:00 95 16 141/78 (99) 100 08/29/20 18:50 95 19 40 Objective: WDWN NAD reduced breath sounds bilaterally without rhonchi or wheeze [id number] without MRG NABS nontender GT no CCE reduced LOC James Nuñez MD Aug 30, 2020 17:51
--- NOTE | 2020-08-30 19:00 | NUR ---
NURSE HAND-OFF REPORT: Latest Vital Signs: Temperature 99.5 , Pulse 83 , B/P 139 /73 , Respiratory Rate 14 , O2 SAT 100 , Mechanical Ventilator, O2 Flow Rate . Vital Sign Comment: s/p tracheostomy today. EKG Rhythm: Sinus Rhythm Rhythm change?: N Latest Stevens Fall Score: 50 Fall Risk: High Risk Safety Measures: Call light Within Reach, Bed Alarm Zone 2, Side Rails Side Rails x2, Bed position Low and Locked. Fall Precautions: Yellow Socks Yellow Gown Door Sign Patient Fall Education Seizure Precaution Contact isolation endorsed. Report given to Artemio Esquivel RN.
--- NOTE | 2020-08-30 19:29 | NUR ---
NURSE NOTES: Report received from ARLYN Vang. Observed pt lying in the bed, awake, able to make needs known, no signs of pain at this time. SR on electrician maintenance, VS WNL. Trach to vent, S6 XLT, AC 12, TV 500, FIO2 40%, No PEEP, S/P trach today noted. GT intact running Vital AF at 70cc/hr, intact. Rectal tube noted, intact. F/C noted and intact. PICC on SHER, intact, running D5 NS at 50cc/hr. S/P picc on L UA, awaiting for X-ray result. Call light within reach. Bed in the lowest position. Side rails padded and up x3. Will continue to monitor.
[2020-08-30] MEDS: Dyna-Hex 2% Top Sol 2oz TOPIC SCH (20:06)
--- NOTE | 2020-08-30 20:10 | Brief Operative Note ---
Immediate Post Operative Note Operative Note Pre-op Diagnosis: needs central IV access Procedure: PICC LUE Post-op Diagnosis: same as pre-op Surgeon: Tiara Wheatley Anesthesia: local Specimen: none Complications: none Fluids: none Implant(s) used?: No Dann Wheatley MD Aug 30, 2020 20:10
--- NOTE | 2020-08-30 20:17 | Diagnostic Imaging Report ---
Indications: Needs long-term IV access Technique: Procedure performed at bedside. Procedural timeout performed. Ultrasound confirms patent compressible left brachial vein. Total sterile technique, including sterile probe cover and sterile gel, sterile gloves, hand hygiene, hat, mask,, sterile gown, large sterile drape, and preparation with 2% chlorhexidine utilized. Local anesthesia with 1% lidocaine. Under real-time ultrasound guidance, puncture ] vein using 21-gauge needle, passage 0.018 guidewire, exchange for 4 Canadian peel-away sheath. 4 Canadian Bard dual-lumen power PICC cut to 36 cm. It was inserted through the peel-away sheath. Peel-away sheath and guidewire removed. Catheter fixed to the skin. Both catheter ports aspirated and flushed. Patient tolerated procedure well, without immediate complication. Followup chest x-ray obtained, documents catheter tip position at the cavoatrial junction Impression: Successful bedside placement of left arm PICC under sonographic guidance, as described above.
--- NOTE | 2020-08-30 21:30 | NUR ---
NURSE NOTES: Pt lying in the bed, awake, no signs of pain noted. GT residual of 30cc noted. Reposition done. Oral care given. Will continue to monitor.
--- NOTE | 2020-08-30 22:32 | General Progress Note ---
Subjective Allergies: Coded Allergies: ADHESIVE TAPE (Verified Allergy, Unknown, 07/20/20) Uncoded Allergies: TAPE (Allergy, Unknown, 08/07/20) Subjective In ICU calm and comfortable tolerating feeds d/w RN Objective Last 24 Hour Vital Signs Date Time Temp Pulse Resp B/P (MAP) Pulse Ox O2 Delivery O2 Flow Rate FiO2 08/30/20 21:00 84 15 138/68 (91) 100 08/30/20 20:00 Mechanical Ventilator Mechanical Ventilator 08/30/20 20:00 98.7 81 13 133/70 (91) 100 08/30/20 20:00 40 08/30/20 20:00 84 08/30/20 19:00 83 14 139/73 (95) 100 08/30/20 18:30 74 17 40 08/30/20 18:00 78 13 112/72 (85) 100 08/30/20 17:00 85 18 110/75 (87) 100 08/30/20 16:30 83 13 112/68 (83) 100 08/30/20 16:00 Mechanical Ventilator Mechanical Ventilator 08/30/20 16:00 40 08/30/20 16:00 99.5 89 14 114/72 (86) 100 08/30/20 15:40 92 08/30/20 15:30 93 14 123/50 (74) 100 08/30/20 15:22 100 99 08/30/20 15:10 74 15 40 08/30/20 15:02 110 12 100 08/30/20 15:00 112 13 128/93 (105) 99 08/30/20 13:00 83 17 126/67 (86) 100 08/30/20 12:00 40 08/30/20 12:00 Mechanical Ventilator Mechanical Ventilator 08/30/20 12:00 81 17 124/65 (84) 100 08/30/20 11:35 80 08/30/20 11:05 87 15 40 08/30/20 11:00 85 15 127/68 (87) 100 08/30/20 10:00 84 14 130/66 (87) 100 08/30/20 09:00 85 17 134/65 (88) 100 08/30/20 08:00 Mechanical Ventilator Mechanical Ventilator 08/30/20 08:00 99.7 85 15 121/61 (81) 100 08/30/20 08:00 40 08/30/20 07:41 76 08/30/20 07:28 83 15 40 08/30/20 07:00 82 16 132/69 (90) 100 08/30/20 06:00 85 15 127/63 (84) 100 08/30/20 05:00 76 13 129/67 (87) 100 08/30/20 04:00 Mechanical Ventilator Mechanical Ventilator 08/30/20 04:00 76 08/30/20 04:00 40 08/30/20 04:00 99.5 82 14 154/70 (98) 100 08/30/20 03:03 82 13 40 08/30/20 03:00 80 13 136/69 (91) 100 08/30/20 02:00 79 12 132/75 (94) 100 08/30/20 01:00 82 13 133/76 (95) 100 08/30/20 00:00 Mechanical Ventilator Mechanical Ventilator 08/30/20 00:00 99.2 84 15 141/68 (92) 100 08/30/20 00:00 40 08/30/20 00:00 86 13 135/58 (83) 100 08/29/20 23:18 84 08/29/20 23:00 87 15 40 08/29/20 23:00 87 16 121/65 (83) 97 Intake and Output 08/29/20 08/30/20 18:59 06:59 Intake Total 2280 ml 2305 ml Output Total 3015 ml 1370 ml Balance -735 ml 935 ml Free Water 50 ml 90 ml IV Total 1390 ml 1305 ml Tube Feeding 840 ml 910 ml Output Urine Total 2915 ml 1370 ml Stool Total 100 ml # Bowel Movements 3 Laboratory Tests 08/30/20 04:00: White Blood Count 18.9H, Red Blood Count 2.02L, Hemoglobin 6.5*L, Hematocrit 19.0L, Mean Corpuscular Volume 94, Mean Corpuscular Hemoglobin 32.1H, Mean Corpuscular Hemoglobin Concent 34.0, Red Cell Distribution Width 16.9H, Platelet Count 332, Mean Platelet Volume 8.8, Neutrophils (%) (Auto) , Lymphocytes (%) (Auto) , Monocytes (%) (Auto) , Eosinophils (%) (Auto) , Basophils (%) (Auto) , Differential Total Cells Counted 100, Neutrophils % (Manual) 57, Lymphocytes % (Manual) 15L, Monocytes % (Manual) 17H, Eosinophils % (Manual) 10H, Basophils % (Manual) 1, Band Neutrophils 0, Platelet Estimate Adequate, Platelet Morphology Normal, Anisocytosis 1+, Prothrombin Time 13.0H, Prothromb Time International R atio 1.2H, Activated Partial Thromboplast Time 36H, Sodium Level 131L, Potassium Level 3.9, Chloride Level 104, Carbon Dioxide Level 24, Anion Gap 3L, Blood Urea Nitrogen 39H, Creatinine 1.0, Estimat Glomerular Filtration Rate > 60, Glucose Level 107H, Calcium Level 9.2, Total Bilirubin 1.1H, Direct Bilirubin 0.5H, Aspartate Amino Transf (AST/SGOT) 56H, Alanine Aminotransferase (ALT/SGPT) 67, Alkaline Phosphatase 429H, Total Protein 7.5, Albumin 2.4L, Globulin 5.1, Albumin/Globulin Ratio 0.5L Height (Feet): 5 Height (Inches): 8.00 Weight (Pounds): 113 Objective Thin AA Man HEENT s/p craniotomy, (+) ETT neck (+) dressing Coarse BS, ronchi, tachypnic RR/tachy abd soft (+) GT no edema Assessment/Plan Status: stable, not improved Assessment/Plan: Assessment - respiratory distress - intubated - recent occluded GT - replaced - abnormal LFT - 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
--- NOTE | 2020-08-30 23:30 | NUR ---
NURSE NOTES: R UA PICC removed, bleeding stopped noted. L UA PICC, intact, running D5 NS at 50cc/hr, all tubings changed. Will continue to monitor.
[2020-08-31] VITALS (20 sets, daily range): BP systolic 117–159; BP diastolic 48–77
--- NOTE | 2020-08-31 01:05 | NUR ---
NURSE NOTES: No acute distress noted at this time. Bed bath given. Reposition done. Oral care given. Will continue to monitor.
[2020-08-31] MEDS: Cefepime HCl 2 GM in D5W 55 ML IVPB SCH ×2 (02:56→14:41)
--- NOTE | 2020-08-31 03:28 | NUR ---
NURSE NOTES: Trach dressing changed by RT noted, mild bleeding noted per S/P new trach. Tolerating current vent setting, saturating at 100%. GT intact, running Vital AF, 40cc residual noted. Reposition done. Oral care given. Will continue to monitor.
[2020-08-31] MEDS: D5NS 1,000 ML IV SCH ×2 (04:07→21:48)
[2020-08-31] MEDS: Morphine Sulfate 2mg/ml Inj(IV/IM USE ONLY) IVP PRN ×2 (04:40→15:29)
[2020-08-31 04:57] LABS: HEMATOCRIT 15.4 % (42.0-52.0); MEAN CORPUSCULAR VOLUME 94 FL (80-99); PLATELET COUNT 240 K/UL (150-450); RED BLOOD COUNT 1.64 M/UL (4.70-6.10); RED CELL DISTRIBUTION WIDTH 15.8 % (11.6-14.8); WHITE BLOOD COUNT 18.7 K/UL (4.8-10.8)
[2020-08-31 05:28] LABS: HEMOGLOBIN 5.3 G/DL (14.2-18.0)
[2020-08-31 05:33] LABS: ALANINE AMINOTRANSFERASE 56 U/L (12-78); ALBUMIN/GLOBULIN RATIO 0.6 (1.0-2.7); ALKALINE PHOSPHATASE 352 U/L (46-116); ANION GAP 8 mmol/L (5-15); ASPARTATE AMINO TRANSFERASE 49 U/L (15-37); BLOOD UREA NITROGEN 32 mg/dL (7-18); CALCIUM 7.6 MG/DL (8.5-10.1); CARBON DIOXIDE 20 MMOL/L (21-32); CHLORIDE 117 MMOL/L (98-107); CREATININE 0.9 MG/DL (0.55-1.30); POTASSIUM 3.3 MMOL/L (3.5-5.1); SODIUM 145 MMOL/L (136-145)
--- NOTE | 2020-08-31 06:00 | NUR ---
NURSE NOTES: Hgb and K level notified to and Dr. Castillo, awaiting call back.
--- NOTE | 2020-08-31 06:15 | NUR ---
NURSE NOTES: New order received regarding Hgb and will be carried out. Pt lying in the bed, awake, no acute distress noted at this time. Will continue to monitor.
--- NOTE | 2020-08-31 07:04 | NUR ---
RD ASSESSMENT & RECOMMENDATIONS SEE CARE ACTIVITY FOR COMPLETE ASSESSMENT DAILY ESTIMATED NEEDS: Needs based on Underweight, Critical care/ 50.8kg 30-35 kcals/kg 1168-8534 total kcals 1.25-2 g protein/kg 64-102 g total protein 25-30 mL/kg 7279-7890 total fluid mLs NUTRITION DIAGNOSIS: Swallowing difficulty R/T respiratory status, dysphagia as evidenced by h/o craniotomy, trach/vent dep, s/p dislodged trach and removal (08/25), s/p trach revision (08/30), on GT feeds. CURRENT TF:Vital 1.2 @ 70ml/hr x 24 hrs ENTERAL NUTRITION RECOMMENDATIONS: Vital AF 1.2 @ 60ml/hr x 24 hrs to provide 1440ml, 1728kcal, 108g prot, 1168ml free water * LOWER goal rate to 60ml/hr x 24 hrs to not exceed est needs -> meets 100% est needs * HOB over 30 degrees/ water flush per MD ADDITIONAL RECOMMENDATIONS: * Maintain calibrated bedscale wt * Add probiotics and anti-diarrheal med for diarrhea, +rectal tube * Skin integrity: TF rec @ goal provides 100% RDI * Monitor lytes, replete as needed (low K) * Monitor BGs closely for hypo and hyperglycemia (no further episodes of hypoglycemia BG 67 on 08/16) .
--- NOTE | 2020-08-31 07:12 | Hematology/Onc Progress Note ---
Assessment/Plan Assessment/Plan Assessment and Recs # Sickle cell crisis noted upon admission, with hx of sickle cell anemia --> hgb 6.5-->7.1-->6.6->>>>7.3-->7.1 -->6.7-->6.5-->6.8->7-->7.2->6.5-->6.7-->6.5->5.3 --> 1 unit prbc on 07/23, 1 unit 08/27, 2 units prbc 08/31 --> ivfs have been started --> anemia panel ordered, with elev ferritin --> recommend to consider hydrea when discharged if stable --> likely does have mild hemolysis --> hgb electrophoresis show evidence of sickle cell trait --> FLOW CYTOMETRY IS NEGATIVE # Hyperferritinemia with elevated ferritin that was noted --> likely consider exjade once discharged though at this time not limiting --> ferritin can >2000 with recurrent transfusions --> trend over time, for EOD observe --> 08/30 deferasirox and ferriprox started # Leukocytosis poa with Severe sepsis due to line infection --> abx: vancomycin-->cefepime/colistin-->cefepime --> wbc 25-->31-->29-->25-->37--->31-->24 --> FLOW CYTOMETRY NEG # Respiratory failure s/p Ventilator dependent --> as per pulm, vent adjustment # Port-A-Cath in place --> s/p abx --> s/p permacath removal # Transaminitis -->liver function elevated --> per gi # Dt ppx scds The timing of this note does not necessarily reflect the time of the patient was seen. Greatly appreciate consultation. Subjective HEENT: Denies: no symptoms, eye pain, blurred vision, tearing, double vision, ear pain, ear discharge, nose pain, nose congestion, throat pain, throat swelling, mouth pain, mouth swelling, other Cardiovascular: Denies: no symptoms, chest pain, edema, irregular heart rate, lightheadedness, palpitations, syncope, other Respiratory: Denies: no symptoms, cough, shortness of breath, SOB with excertion, SOB at rest, sputum, wheezing, other Gastrointestinal/Abdominal: Denies: no symptoms, abdomen distended, abdominal pain, black stools, tarry stools, blood in stool, constipated, diarrhea, difficulty swallowing, nausea, poor appetite, poor fluid intake, rectal bleeding, vomiting, other Genitourinary: Denies: no symptoms, burning, discharge, frequency, flank pain, hematuria, incontinence, pain, urgency, other Neurologic/Psychiatric: Denies: no symptoms, anxiety, depressed, emotional problems, headache, numbness, paresthesia, pre-existing deficit, seizure, tingling, tremors, weakness, other Endocrine: Denies: no symptoms, excessive sweating, flushing, intolerance to cold, intolerance to heat, increased hunger, increased thirst, increased urine, unexplained weight gain, unexplained weight loss, other Allergies: Coded Allergies: ADHESIVE TAPE (Verified Allergy, Unknown, 07/20/20) Uncoded Allergies: TAPE (Allergy, Unknown, 08/07/20) Subjective 08/19 no acute events, vent, iv abx, labs reviewed 08/20 labs reviewed, seen by Dr. Celaya and mychal Rn, holding off prbc 08/21 remains on abx with persistently elev wbc, on abx broad spectrum 08/22 labs reviewed, no bleeding, meds noted, wbc still 25k, hgb 6.8, transfuse pr 08/23 cbc has been ordered, meds noted, on cefepime, have mychal path is flow back 08/24 hob is elevated, labs noted, hgb 7, consider for transfusions soon, wbc is better 08/25 labs are reviewed, wbc is worse, flow was done and is negative 08/27 is in the icu, labs noted, on cefepime and vanc, wbc 31 08/29 labs reviewed, hgb 6.7, mychal Feldman in am, no bleeding, seen with Belia 08/30 remains on vent, have restart home chelating agents, hgb 6.5 08/31 feeling better, hgb 5.3, have mychal Avalos Artemio to get 2 units prbc stat Objective Objective Current Medications Medications (Trade) Dose Ordered Sig/Piedad Route PRN Reason Start Time Stop Time Status Last Admin Dose Admin Acetaminophen (Tylenol) 650 mg Q4H PRN GT Mild Pain (Pain Scale 1-3) 08/24/20 13:00 09/23/20 12:59 08/28/20 13:40 Acetaminophen (Tylenol) 650 mg Q6H PRN GT Temp >100.5 08/10/20 20:20 09/09/20 20:19 08/29/20 20:32 Cefepime HCl 2 gm/ Dextrose 55 ml @ 110 mls/hr Q12H IVPB 08/25/20 14:00 09/01/20 13:59 08/31/20 02:56 Chlorhexidine Gluconate (Christy-Hex 2%) 1 applic DAILY@2000 TOPIC 08/14/20 20:00 11/12/20 19:59 08/30/20 20:06 Dextrose/Sodium Chloride 1,000 ml @ 50 mls/hr Q20H IV 08/30/20 08:00 09/29/20 07:59 08/31/20 04:07 Folic Acid (Folate) 1 mg DAILY GT 08/11/20 09:00 09/07/20 08:59 08/30/20 08:19 Levetiracetam 100 ml @ 400 mls/hr Q12HR IVPB 08/14/20 10:00 11/12/20 09:59 08/30/20 20:06 Linezolid 300 ml @ 300 mls/hr Q12HR IVPB 08/29/20 11:00 09/05/20 10:59 08/30/20 20:06 Lorazepam (Ativan 2mg/ml 1ml) 1 mg Q4H PRN IV For Anxiety 08/26/20 07:00 09/02/20 06:59 08/29/20 20:36 Metoclopramide HCl (Reglan) 10 mg Q8H PRN IVP Nausea & Vomiting 08/26/20 11:15 09/25/20 11:14 08/27/20 20:46 Morphine Sulfate (Morphine Sulfate) 1 mg Q4HR PRN IVP Moderate Pain (Pain Scale 4-6) 08/26/20 07:00 09/02/20 06:59 08/28/20 11:39 Morphine Sulfate (Morphine Sulfate) 2 mg Q4H PRN IVP Severe Pain (Pain Scale 7-10) 08/28/20 15:00 09/04/20 14:59 08/31/20 04:40 Multivitamins (Multivitamins) 1 tab DAILY GT 08/11/20 09:00 09/07/20 08:59 08/30/20 08:19 Pantoprazole (Protonix) 40 mg EVERY 12 HOURS IVP 08/13/20 22:15 09/12/20 22:14 08/30/20 20:06 Patient Own Medication (Patient's Own Med) 2 ea TID GT 08/30/20 09:00 09/29/20 08:59 08/30/20 17:58 Patient Own Medication (Patient's Own Med) 3 ea DAILY GT 08/30/20 09:00 09/29/20 08:59 08/30/20 08:19 Last 24 Hour Vital Signs Date Time Temp Pulse Resp B/P (MAP) Pulse Ox O2 Delivery O2 Flow Rate FiO2 08/31/20 06:00 76 15 132/56 (81) 100 08/31/20 05:00 77 16 122/54 (76) 100 08/31/20 04:00 Mechanical Ventilator Mechanical Ventilator 08/31/20 04:00 81 08/31/20 04:00 97.9 82 15 128/57 (80) 100 08/31/20 04:00 40 08/31/20 03:00 80 16 122/57 (78) 100 08/31/20 02:31 78 13 40 08/31/20 02:00 79 14 135/77 (96) 100 08/31/20 01:00 83 14 134/71 (92) 100 08/31/20 00:00 Mechanical Ventilator Mechanical Ventilator 08/31/20 00:00 87 08/31/20 00:00 98.6 85 16 132/64 (86) 100 08/30/20 23:00 88 19 119/49 (72) 100 08/30/20 22:41 86 17 40 08/30/20 22:00 86 18 135/62 (86) 100 08/30/20 21:00 84 15 138/68 (91) 100 08/30/20 20:00 Mechanical Ventilator Mechanical Ventilator 08/30/20 20:00 98.7 81 13 133/70 (91) 100 08/30/20 20:00 40 08/30/20 20:00 84 08/30/20 19:00 83 14 139/73 (95) 100 08/30/20 18:30 74 17 40 08/30/20 18:00 78 13 112/72 (85) 100 08/30/20 17:00 85 18 110/75 (87) 100 08/30/20 16:30 83 13 112/68 (83) 100 08/30/20 16:00 Mechanical Ventilator Mechanical Ventilator 08/30/20 16:00 40 08/30/20 16:00 99.5 89 14 114/72 (86) 100 08/30/20 15:40 92 08/30/20 15:30 93 14 123/50 (74) 100 08/30/20 15:22 100 99 08/30/20 15:10 74 15 40 08/30/20 15:02 110 12 100 08/30/20 15:00 112 13 128/93 (105) 99 08/30/20 13:00 83 17 126/67 (86) 100 08/30/20 12:00 40 08/30/20 12:00 Mechanical Ventilator Mechanical Ventilator 08/30/20 12:00 81 17 124/65 (84) 100 08/30/20 11:35 80 08/30/20 11:05 87 15 40 08/30/20 11:00 85 15 127/68 (87) 100 08/30/20 10:00 84 14 130/66 (87) 100 08/30/20 09:00 85 17 134/65 (88) 100 08/30/20 08:00 Mechanical Ventilator Mechanical Ventilator 08/30/20 08:00 99.7 85 15 121/61 (81) 100 08/30/20 08:00 40 08/30/20 07:41 76 08/30/20 07:28 83 15 40 08/30/20 07:00 82 16 132/69 (90) 100 08/30/20 06:00 85 15 127/63 (84) 100 08/30/20 05:00 76 13 129/67 (87) 100 08/30/20 04:00 Mechanical Ventilator Mechanical Ventilator 08/30/20 04:00 76 08/30/20 04:00 40 08/30/20 04:00 99.5 82 14 154/70 (98) 100 08/30/20 03:03 82 13 40 08/30/20 03:00 80 13 136/69 (91) 100 08/30/20 02:00 79 12 132/75 (94) 100 08/30/20 01:00 82 13 133/76 (95) 100 08/30/20 00:00 Mechanical Ventilator Mechanical Ventilator 08/30/20 00:00 99.2 84 15 141/68 (92) 100 08/30/20 00:00 40 08/30/20 00:00 86 13 135/58 (83) 100 08/29/20 23:18 84 08/29/20 23:00 87 15 40 08/29/20 23:00 87 16 121/65 (83) 97 08/29/20 22:00 94 18 125/81 (96) 98 08/29/20 21:06 75 18 123/65 100 08/29/20 21:02 99.7 08/29/20 21:00 90 17 124/52 (76) 100 08/29/20 20:36 90 20 130/60 100 08/29/20 20:00 100.2 89 16 130/62 (84) 100 08/29/20 20:00 Mechanical Ventilator Mechanical Ventilator 08/29/20 20:00 40 08/29/20 19:18 89 08/29/20 19:00 95 16 141/78 (99) 100 08/29/20 18:50 95 19 40 08/29/20 17:00 93 21 148/72 (97) 100 08/29/20 16:00 98.7 98 20 136/64 (88) 100 08/29/20 16:00 40 08/29/20 16:00 96 08/29/20 16:00 Mechanical Ventilator Mechanical Ventilator 08/29/20 15:05 91 15 40 08/29/20 15:00 91 18 128/65 (86) 100 08/29/20 14:08 96 22 134/73 100 08/29/20 14:00 96 22 134/73 (93) 100 08/29/20 13:38 94 24 124/54 100 08/29/20 13:00 86 16 124/54 (77) 100 08/29/20 12:00 Mechanical Ventilator Mechanical Ventilator 08/29/20 12:00 98.4 79 15 129/58 (81) 100 08/29/20 12:00 74 08/29/20 12:00 40 08/29/20 11:00 84 21 136/43 (74) 100 08/29/20 10:35 76 17 40 08/29/20 10:00 78 14 133/57 (82) 100 08/29/20 09:00 85 16 137/55 (82) 100 08/29/20 08:00 40 08/29/20 08:00 98.1 87 19 130/53 (78) 100 08/29/20 08:00 Mechanical Ventilator Mechanical Ventilator 08/29/20 08:00 90 Intake and Output 08/30/20 08/31/20 19:00 07:00 Intake Total 1358.33 ml 1520 ml Output Total 780 ml 960 ml Balance 578.33 ml 560 ml Free Water 130 ml IV Total 938.33 ml 550 ml Tube Feeding 420 ml 840 ml Output Urine Total 730 ml 810 ml Stool Total 50 ml 150 ml Labs Test 08/28/20 12:48 08/29/20 03:00 08/30/20 04:00 08/31/20 04:00 Vancomycin Level Trough 30.4 ug/mL (5.0-12.0) White Blood Count 24.3 K/UL (4.8-10.8) 18.9 K/UL (4.8-10.8) 18.7 K/UL (4.8-10.8) Red Blood Count 2.02 M/UL (4.70-6.10) 2.02 M/UL (4.70-6.10) 1.64 M/UL (4.70-6.10) Hemoglobin 6.7 G/DL (14.2-18.0) 6.5 G/DL (14.2-18.0) 5.3 G/DL (14.2-18.0) Hematocrit 19.3 % (42.0-52.0) 19.0 % (42.0-52.0) 15.4 % (42.0-52.0) Mean Corpuscular Volume 95 FL (80-99) 94 FL (80-99) 94 FL (80-99) Mean Corpuscular Hemoglobin 33.0 PG (27.0-31.0) 32.1 PG (27.0-31.0) 32.1 PG (27.0-31.0) Mean Corpuscular Hemoglobin Concent 34.6 G/DL (32.0-36.0) 34.0 G/DL (32.0-36.0) 34.2 G/DL (32.0-36.0) Red Cell Distribution Width 16.3 % (11.6-14.8) 16.9 % (11.6-14.8) 15.8 % (11.6-14.8) Platelet Count 363 K/UL (150-450) 332 K/UL (150-450) 240 K/UL (150-450) Mean Platelet Volume 7.9 FL (6.5-10.1) 8.8 FL (6.5-10.1) 8.0 FL (6.5-10.1) Neutrophils (%) (Auto) % (45.0-75.0) % (45.0-75.0) % (45.0-75.0) Lymphocytes (%) (Auto) % (20.0-45.0) % (20.0-45.0) % (20.0-45.0) Monocytes (%) (Auto) % (1.0-10.0) % (1.0-10.0) % (1.0-10.0) Eosinophils (%) (Auto) % (0.0-3.0) % (0.0-3.0) % (0.0-3.0) Basophils (%) (Auto) % (0.0-2.0) % (0.0-2.0) % (0.0-2.0) Differential Total Cells Counted 100 100 Neutrophils % (Manual) 63 % (45-75) 57 % (45-75) Lymphocytes % (Manual) 17 % (20-45) 15 % (20-45) Monocytes % (Manual) 7 % (1-10) 17 % (1-10) Eosinophils % (Manual) 11 % (0-3) 10 % (0-3) Basophils % (Manual) 2 % (0-2) 1 % (0-2) Band Neutrophils 0 % (0-8) 0 % (0-8) Nucleated Red Blood Cells 1 /100 WBC Platelet Estimate Adequate Adequate Platelet Morphology Normal Normal Polychromasia 1+ Hypochromasia 1+ Anisocytosis 1+ 1+ Sodium Level 144 MMOL/L (136-145) 131 MMOL/L (136-145) 145 MMOL/L (136-145) Potassium Level 4.2 MMOL/L (3.5-5.1) 3.9 MMOL/L (3.5-5.1) 3.3 MMOL/L (3.5-5.1) Chloride Level 111 MMOL/L (98-107) 104 MMOL/L (98-107) 117 MMOL/L (98-107) Carbon Dioxide Level 22 MMOL/L (21-32) 24 MMOL/L (21-32) 20 MMOL/L (21-32) Anion Gap 11 mmol/L (5-15) 3 mmol/L (5-15) 8 mmol/L (5-15) Blood Urea Nitrogen 38 mg/dL (7-18) 39 mg/dL (7-18) 32 mg/dL (7-18) Creatinine 1.0 MG/DL (0.55-1.30) 1.0 MG/DL (0.55-1.30) 0.9 MG/DL (0.55-1.30) Estimat Glomerular Filtration Rate > 60 mL/min (>60) > 60 mL/min (>60) > 60 mL/min (>60) Glucose Level 88 MG/DL (74-106) 107 MG/DL (74-106) 112 MG/DL (74-106) Calcium Level 9.2 MG/DL (8.5-10.1) 9.2 MG/DL (8.5-10.1) 7.6 MG/DL (8.5-10.1) Random Vancomycin Level 20.4 ug/mL Prothrombin Time 13.0 SEC (9.30-11.50) Prothromb Time International Ratio 1.2 (0.9-1.1) Activated Partial Thromboplast Time 36 SEC (23-33) Total Bilirubin 1.1 MG/DL (0.2-1.0) 1.0 MG/DL (0.2-1.0) Direct Bilirubin 0.5 MG/DL (0.0-0.3) Aspartate Amino Transf (AST/SGOT) 56 U/L (15-37) 49 U/L (15-37) Alanine Aminotransferase (ALT/SGPT) 67 U/L (12-78) 56 U/L (12-78) Alkaline Phosphatase 429 U/L (46-116) 352 U/L (46-116) Total Protein 7.5 G/DL (6.4-8.2) 5.6 G/DL (6.4-8.2) Albumin 2.4 G/DL (3.4-5.0) 2.0 G/DL (3.4-5.0) Globulin 5.1 g/dL 3.6 g/dL Albumin/Globulin Ratio 0.5 (1.0-2.7) 0.6 (1.0-2.7) Height (Feet): 5 Height (Inches): 8.00 Weight (Pounds): 113 Objective Physical Exam General: alert, Chronically Ill Head: other - Large right-sided craniotomy defect well-heale ++, tracheotomy/vent Respiratory: crackles, rales, other - right side chest wall tenderness Cardiovascular: tachycardia Gastrointestinal: normal inspection, soft, gt++ Musk: decreased range of motion, other - atrophic, motor weakness Neurologic: alert, motor weakness, other - left hemineglect Psychiatric: normal inspection Skin: no rash : garcia++ Roshan Castillo MD Aug 31, 2020 07:12
--- NOTE | 2020-08-31 07:14 | NUR ---
NURSE HAND-OFF REPORT: Important Events on Shift: S/P trach, mild bleeding noted, dry at this time. Patient Status: stable Diet: Vital AF at 70cc/hr Pending Orders: n Pending Results/Labs: Hgb and K, notified, awaiting call back. Pending MD notification: Hgb, new order received. K, awaiting call back. Latest Vital Signs: Temperature 97.9 , Pulse 80 , B/P 122 /48 , Respiratory Rate 15 , O2 SAT 100 , Mechanical Ventilator, O2 Flow Rate . Vital Sign Comment: EKG Rhythm: Sinus Rhythm Rhythm change?: N MD Notified?: James DAVIES MD Response: Latest Stevens Fall Score: 50 Fall Risk: High Risk Safety Measures: Call light Within Reach, Bed Alarm Zone 2, Side Rails Side Rails x2, Bed position Low and Locked. Fall Precautions: Yellow Socks Yellow Gown Door Sign Patient Fall Education Report given to ARLYN Bianchi.
--- NOTE | 2020-08-31 07:18 | NUR ---
NURSE NOTES: Patient received lying in bed, asleep, responsive to verbal stimuli. No signs of pain noted. Respirations even and unlabored. On trach to vent, tach without signs of bleeding noted, settings: AC -12, TV - 500, Fio2 - 40%, oxygen saturation - 100. Vital AF at 70 ml/hr, no residual noted, HOB elevated for aspiration precaution. Left Upper arm PICC running D5 1/2 at 50 ml/hr, infusing well, central line intact and without signs of infection. Overton patent and draining to yellow urine. Sinus Rhythm on the monitor, rate 70s. Safety measures implemented, bed alarm activated and kept at lowest position. Call light placed within reach.
--- NOTE | 2020-08-31 07:43 | NUR ---
CASE MANAGEMENT: REVIEW SI: RESPIRATORY FAILURE . SICKLE CELL DISEASE . TRACHEOSTOMY 08/30 T 97.9 HR 82 RR 15 BP 122/48 SAT 100% MECH VENT FIO2 40 WBC 18.7 H/H 5.3/15.4 K 3.3 IS: D5 NS IVF @50/ML PROTONIX IV Q12HR KEPPRA IV Q12HR CEFEPIME IV Q12HR ZYVOX IV Q12HR TRANSFUSE PRBC ORDER TO TRANSFER TO STEP DOWN UNIT ICU STATUS DCP: PATIENT IS FROM [facility]
[2020-08-31] MEDS: Linezolid 600mg/300ml (Pre-Mix) IVPB SCH ×2 (09:21→20:54)
[2020-08-31] MEDS: Pantoprazole Inj IVP SCH ×2 (09:22→20:54)
[2020-08-31] MEDS: levETIRAcetam 1,000mg/NS100ml 100 ML IVPB SCH ×2 (09:22→20:54)
[2020-08-31] MEDS: FERRIPROX GT SCH ×3 (09:24→18:00)
[2020-08-31] MEDS: DEFERASIROX 360 MG GT SCH (09:24)
--- NOTE | 2020-08-31 10:00 | NUR ---
NURSE NOTES: Patient resting comfortably, no complains of pain. Respirations even and unlabored. Will continue to monitor.
--- NOTE | 2020-08-31 10:03 | Infectious Diseases Prog Note ---
Assessment/Plan Assessment/Plan A: 1. VRE sepsis. 2. Aspiration pneumonia MRSA, Pseudomonas & Serratia in culture COVID19 X 1: negative. 3. Leukocytosis 4. Sickle cell disease. 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 VDRF 8. Line infection, line removed 9. Serratia pneumonia 10.Tracheostomy malfunction, replaced PLAN: 1. Continue Cefepime & Zyvox 2. will f/u cultures Subjective ROS Limited/Unobtainable: Yes Respiratory: Reports: other - had tracheostomy yesterday Cardiovascular: Reports: other - PICC line was changed Allergies: Coded Allergies: ADHESIVE TAPE (Verified Allergy, Unknown, 07/20/20) Uncoded Allergies: TAPE (Allergy, Unknown, 08/07/20) Objective Last 24 Hour Vital Signs Date Time Temp Pulse Resp B/P (MAP) Pulse Ox O2 Delivery O2 Flow Rate FiO2 08/31/20 09:00 40 08/31/20 09:00 75 14 130/66 (87) 100 08/31/20 08:00 97.7 70 13 120/51 (74) 100 08/31/20 07:26 74 15 40 08/31/20 07:00 80 15 122/48 (72) 100 08/31/20 06:00 76 15 132/56 (81) 100 08/31/20 05:00 77 16 122/54 (76) 100 08/31/20 04:00 Mechanical Ventilator Mechanical Ventilator 08/31/20 04:00 81 08/31/20 04:00 97.9 82 15 128/57 (80) 100 08/31/20 04:00 40 08/31/20 03:00 80 16 122/57 (78) 100 08/31/20 02:31 78 13 40 08/31/20 02:00 79 14 135/77 (96) 100 08/31/20 01:00 83 14 134/71 (92) 100 08/31/20 00:00 Mechanical Ventilator Mechanical Ventilator 08/31/20 00:00 87 08/31/20 00:00 98.6 85 16 132/64 (86) 100 08/30/20 23:00 88 19 119/49 (72) 100 08/30/20 22:41 86 17 40 08/30/20 22:00 86 18 135/62 (86) 100 08/30/20 21:00 84 15 138/68 (91) 100 08/30/20 20:00 Mechanical Ventilator Mechanical Ventilator 08/30/20 20:00 98.7 81 13 133/70 (91) 100 08/30/20 20:00 40 08/30/20 20:00 84 08/30/20 19:00 83 14 139/73 (95) 100 08/30/20 18:30 74 17 40 08/30/20 18:00 78 13 112/72 (85) 100 08/30/20 17:00 85 18 110/75 (87) 100 08/30/20 16:30 83 13 112/68 (83) 100 08/30/20 16:00 Mechanical Ventilator Mechanical Ventilator 08/30/20 16:00 40 08/30/20 16:00 99.5 89 14 114/72 (86) 100 08/30/20 15:40 92 08/30/20 15:30 93 14 123/50 (74) 100 08/30/20 15:22 100 99 08/30/20 15:10 74 15 40 08/30/20 15:02 110 12 100 08/30/20 15:00 112 13 128/93 (105) 99 08/30/20 13:00 83 17 126/67 (86) 100 08/30/20 12:00 40 08/30/20 12:00 Mechanical Ventilator Mechanical Ventilator 08/30/20 12:00 81 17 124/65 (84) 100 08/30/20 11:35 80 08/30/20 11:05 87 15 40 08/30/20 11:00 85 15 127/68 (87) 100 Height (Feet): 5 Height (Inches): 8.00 Weight (Pounds): 113 HEENT: status post trach Respiratory/Chest: rhonchi - bilaterally, other - On ventilator Cardiovascular: normal rate, other - left arm PICC line Abdomen: soft, non tender, other - GT & rectal tube Extremities: no edema Neurologic/Psychiatric: alert, responsive Musculoskeletal: atrophy Laboratory Tests Test 08/31/20 04:00 White Blood Count 18.7 K/UL (4.8-10.8) H Red Blood Count 1.64 M/UL (4.70-6.10) L Hemoglobin 5.3 G/DL (14.2-18.0) *L Hematocrit 15.4 % (42.0-52.0) L Mean Corpuscular Volume 94 FL (80-99) Mean Corpuscular Hemoglobin 32.1 PG (27.0-31.0) H Mean Corpuscular Hemoglobin Concent 34.2 G/DL (32.0-36.0) Red Cell Distribution Width 15.8 % (11.6-14.8) H Platelet Count 240 K/UL (150-450) Mean Platelet Volume 8.0 FL (6.5-10.1) Neutrophils (%) (Auto) % (45.0-75.0) Lymphocytes (%) (Auto) % (20.0-45.0) Monocytes (%) (Auto) % (1.0-10.0) Eosinophils (%) (Auto) % (0.0-3.0) Basophils (%) (Auto) % (0.0-2.0) Differential Total Cells Counted 100 Neutrophils % (Manual) 67 % (45-75) Lymphocytes % (Manual) 18 % (20-45) L Monocytes % (Manual) 10 % (1-10) Eosinophils % (Manual) 3 % (0-3) Basophils % (Manual) 2 % (0-2) Band Neutrophils 0 % (0-8) Platelet Estimate Adequate Platelet Morphology Normal Hypochromasia 4+ Anisocytosis 1+ Spherocytes 3+ Sodium Level 145 MMOL/L (136-145) # Potassium Level 3.3 MMOL/L (3.5-5.1) L Chloride Level 117 MMOL/L (98-107) H Carbon Dioxide Level 20 MMOL/L (21-32) L Anion Gap 8 mmol/L (5-15) Blood Urea Nitrogen 32 mg/dL (7-18) H Creatinine 0.9 MG/DL (0.55-1.30) Estimat Glomerular Filtration Rate > 60 mL/min (>60) Glucose Level 112 MG/DL (74-106) H Calcium Level 7.6 MG/DL (8.5-10.1) L Total Bilirubin 1.0 MG/DL (0.2-1.0) Aspartate Amino Transf (AST/SGOT) 49 U/L (15-37) H Alanine Aminotransferase (ALT/SGPT) 56 U/L (12-78) Alkaline Phosphatase 352 U/L (46-116) H Total Protein 5.6 G/DL (6.4-8.2) L Albumin 2.0 G/DL (3.4-5.0) L Globulin 3.6 g/dL Albumin/Globulin Ratio 0.6 (1.0-2.7) L Current Medications Medications (Trade) Dose Ordered Sig/Piedad Route PRN Reason Start Time Stop Time Status Last Admin Dose Admin Acetaminophen (Tylenol) 650 mg Q4H PRN GT Mild Pain (Pain Scale 1-3) 08/24/20 13:00 09/23/20 12:59 08/28/20 13:40 Acetaminophen (Tylenol) 650 mg Q6H PRN GT Temp >100.5 08/10/20 20:20 09/09/20 20:19 08/29/20 20:32 Cefepime HCl 2 gm/ Dextrose 55 ml @ 110 mls/hr Q12H IVPB 08/25/20 14:00 09/01/20 13:59 08/31/20 02:56 Chlorhexidine Gluconate (Christy-Hex 2%) 1 applic DAILY@2000 TOPIC 08/14/20 20:00 11/12/20 19:59 08/30/20 20:06 Dextrose/Sodium Chloride 1,000 ml @ 50 mls/hr Q20H IV 08/30/20 08:00 09/29/20 07:59 08/31/20 04:07 Folic Acid (Folate) 1 mg DAILY GT 08/11/20 09:00 09/07/20 08:59 08/31/20 09:23 Levetiracetam 100 ml @ 400 mls/hr Q12HR IVPB 08/14/20 10:00 11/12/20 09:59 08/31/20 09:22 Linezolid 300 ml @ 300 mls/hr Q12HR IVPB 08/29/20 11:00 09/05/20 10:59 08/31/20 09:21 Lorazepam (Ativan 2mg/ml 1ml) 1 mg Q4H PRN IV For Anxiety 08/26/20 07:00 09/02/20 06:59 08/29/20 20:36 Metoclopramide HCl (Reglan) 10 mg Q8H PRN IVP Nausea & Vomiting 08/26/20 11:15 09/25/20 11:14 08/27/20 20:46 Morphine Sulfate (Morphine Sulfate) 1 mg Q4HR PRN IVP Moderate Pain (Pain Scale 4-6) 08/26/20 07:00 09/02/20 06:59 08/28/20 11:39 Morphine Sulfate (Morphine Sulfate) 2 mg Q4H PRN IVP Severe Pain (Pain Scale 7-10) 08/28/20 15:00 09/04/20 14:59 08/31/20 04:40 Multivitamins (Multivitamins) 1 tab DAILY GT 08/11/20 09:00 09/07/20 08:59 08/31/20 09:23 Pantoprazole (Protonix) 40 mg EVERY 12 HOURS IVP 08/13/20 22:15 09/12/20 22:14 08/31/20 09:22 Patient Own Medication (Patient's Own Med) 2 ea TID GT 08/30/20 09:00 09/29/20 08:59 08/31/20 09:24 Patient Own Medication (Patient's Own Med) 3 ea DAILY GT 08/30/20 09:00 09/29/20 08:59 08/31/20 09:24 Wyatt Kemp MD Aug 31, 2020 10:03
--- NOTE | 2020-08-31 12:25 | NUR ---
NURSE NOTES: First unit of blood transfusion initiated, verified right product and patient with Ingrid Ramires RN. Refer to Blood product administration sheet, VS stable.
--- NOTE | 2020-08-31 12:29 | Surgery Progress Note ---
Surgery Progress Note Subjective Procedure Performed Tracheostomy Symptoms: improved Additional Comments s/p trach comfortable today labs and imaging reviewed Objective Last 24 Hour Vital Signs Date Time Temp Pulse Resp B/P (MAP) Pulse Ox O2 Delivery O2 Flow Rate FiO2 08/31/20 11:25 70 13 40 08/31/20 11:00 71 14 117/58 (77) 100 08/31/20 10:00 66 13 137/67 (90) 100 08/31/20 09:00 40 08/31/20 09:00 75 14 130/66 (87) 100 08/31/20 08:00 72 08/31/20 08:00 97.7 70 13 120/51 (74) 100 08/31/20 08:00 Mechanical Ventilator Mechanical Ventilator 08/31/20 07:26 74 15 40 08/31/20 07:00 80 15 122/48 (72) 100 08/31/20 06:00 76 15 132/56 (81) 100 08/31/20 05:00 77 16 122/54 (76) 100 08/31/20 04:00 Mechanical Ventilator Mechanical Ventilator 08/31/20 04:00 81 08/31/20 04:00 97.9 82 15 128/57 (80) 100 08/31/20 04:00 40 08/31/20 03:00 80 16 122/57 (78) 100 08/31/20 02:31 78 13 40 08/31/20 02:00 79 14 135/77 (96) 100 08/31/20 01:00 83 14 134/71 (92) 100 08/31/20 00:00 Mechanical Ventilator Mechanical Ventilator 08/31/20 00:00 87 08/31/20 00:00 98.6 85 16 132/64 (86) 100 08/30/20 23:00 88 19 119/49 (72) 100 08/30/20 22:41 86 17 40 08/30/20 22:00 86 18 135/62 (86) 100 08/30/20 21:00 84 15 138/68 (91) 100 08/30/20 20:00 Mechanical Ventilator Mechanical Ventilator 08/30/20 20:00 98.7 81 13 133/70 (91) 100 08/30/20 20:00 40 08/30/20 20:00 84 08/30/20 19:00 83 14 139/73 (95) 100 08/30/20 18:30 74 17 40 08/30/20 18:00 78 13 112/72 (85) 100 08/30/20 17:00 85 18 110/75 (87) 100 08/30/20 16:30 83 13 112/68 (83) 100 08/30/20 16:00 Mechanical Ventilator Mechanical Ventilator 08/30/20 16:00 40 08/30/20 16:00 99.5 89 14 114/72 (86) 100 08/30/20 15:40 92 08/30/20 15:30 93 14 123/50 (74) 100 08/30/20 15:22 100 99 08/30/20 15:10 74 15 40 08/30/20 15:02 110 12 100 08/30/20 15:00 112 13 128/93 (105) 99 08/30/20 13:00 83 17 126/67 (86) 100 I&O Intake and Output 08/30/20 08/31/20 19:00 07:00 Intake Total 1358.33 ml 1570 ml Output Total 780 ml 960 ml Balance 578.33 ml 610 ml Free Water 130 ml IV Total 938.33 ml 600 ml Tube Feeding 420 ml 840 ml Output Urine Total 730 ml 810 ml Stool Total 50 ml 150 ml Dressing: dry Wound: clean Cardiovascular: RSR Respiratory: clear, decreased breath sounds Abdomen: soft, non-tender, present bowel sounds Extremities: no edema, no tenderness, no cyanosis Laboratory Tests Test 08/31/20 04:00 White Blood Count 18.7 K/UL (4.8-10.8) H Red Blood Count 1.64 M/UL (4.70-6.10) L Hemoglobin 5.3 G/DL (14.2-18.0) *L Hematocrit 15.4 % (42.0-52.0) L Mean Corpuscular Volume 94 FL (80-99) Mean Corpuscular Hemoglobin 32.1 PG (27.0-31.0) H Mean Corpuscular Hemoglobin Concent 34.2 G/DL (32.0-36.0) Red Cell Distribution Width 15.8 % (11.6-14.8) H Platelet Count 240 K/UL (150-450) Mean Platelet Volume 8.0 FL (6.5-10.1) Neutrophils (%) (Auto) % (45.0-75.0) Lymphocytes (%) (Auto) % (20.0-45.0) Monocytes (%) (Auto) % (1.0-10.0) Eosinophils (%) (Auto) % (0.0-3.0) Basophils (%) (Auto) % (0.0-2.0) Differential Total Cells Counted 100 Neutrophils % (Manual) 67 % (45-75) Lymphocytes % (Manual) 18 % (20-45) L Monocytes % (Manual) 10 % (1-10) Eosinophils % (Manual) 3 % (0-3) Basophils % (Manual) 2 % (0-2) Band Neutrophils 0 % (0-8) Platelet Estimate Adequate Platelet Morphology Normal Hypochromasia 4+ Anisocytosis 1+ Spherocytes 3+ Sodium Level 145 MMOL/L (136-145) # Potassium Level 3.3 MMOL/L (3.5-5.1) L Chloride Level 117 MMOL/L (98-107) H Carbon Dioxide Level 20 MMOL/L (21-32) L Anion Gap 8 mmol/L (5-15) Blood Urea Nitrogen 32 mg/dL (7-18) H Creatinine 0.9 MG/DL (0.55-1.30) Estimat Glomerular Filtration Rate > 60 mL/min (>60) Glucose Level 112 MG/DL (74-106) H Calcium Level 7.6 MG/DL (8.5-10.1) L Total Bilirubin 1.0 MG/DL (0.2-1.0) Aspartate Amino Transf (AST/SGOT) 49 U/L (15-37) H Alanine Aminotransferase (ALT/SGPT) 56 U/L (12-78) Alkaline Phosphatase 352 U/L (46-116) H Total Protein 5.6 G/DL (6.4-8.2) L Albumin 2.0 G/DL (3.4-5.0) L Globulin 3.6 g/dL Albumin/Globulin Ratio 0.6 (1.0-2.7) L Plan Problems: (1) Pneumonia (2) Sickle cell anemia (3) Tachycardia (4) Severe sepsis (5) Sickle cell crisis (6) Sepsis Assessment & Plan: 35-year-old male sickle cell multiple comorbidities history of craniotomy trach feeding tube prior port infected removed see prior admission and consult and operative notes. Currently presents with significant leukocytosis fevers hypotension in intensive care unit wound site evaluated unlikely etiology. Trach evaluated may consider changing. LFTs noted elevated. Ultrasound ordered pending results trend labs continue IV antibiotics appreciate infectious disease input will follow with recommendations thank you for let me participate in patient's care KUB and US noted labs reviewed transfuse prbc prn trach change peg changed line out picc placed persistent wbc h/h noted anemia ss better since new trach Shiley [address] secretions manageable Trach replaced at bedside 925 for malpositioning it was identified he does have a false track as well. Will ensure trach is in correct positioning daily every shift trach not stable removed and intubated 08/25 on ett vent will need trach revision discussed with mother and medical teams trach and picc s/p trach revision 6 f dxlt pulmonary arteries: Evaluation for pulmonary embolus is limited due to breathing motion artifact. No central pulmonary emboli are identified. Aorta: No acute findings. No thoracic aortic aneurysm. Lungs: There are moderately consolidating infiltrates identified in both lower lobes dependently with mild additional patchy infiltrates dependently in both upper lobes. The findings are consistent with bilateral nonspecific pneumonia. Aspiration pneumonia could give this appearance. The infiltrates are only somewhat typical of Covid 19. Confidence is immediate. Pleural space: Unremarkable. No significant effusion. No pneumothorax. Heart: Unremarkable. No cardiomegaly. No significant pericardial effusion. No evidence of RV dysfunction. Bones/joints: No acute fracture. No dislocation. Soft tissues: Unremarkable. Lymph nodes: Unremarkable. No enlarged lymph nodes. Tubes, lines and devices: There is a tracheostomy tube in good position. IMPRESSION: 1. There are moderately consolidating infiltrates identified in both lower lobes dependently with mild additional patchy infiltrates dependently in both upper lobes. The findings are consistent with bilateral nonspecific pneumonia. Aspiration pneumonia could give this appearance. The infiltrates are only somewhat typical of Covid 19. Confidence is immediate. 2. Evaluation for pulmonary embolus is limited due to breathing motion artifact. No central pulmonary emboli are identified. The liver is homogeneous. We cannot identify a normal spleen. There is dense crescentic calcification in the left upper quadrant at the expected location of the spleen. Gallbladder is absent. The pancreas is unremarkable. Adrenals are normal in morphology. There is a small punctate cortical calcification left kidney. No hydronephrosis bilaterally There is a G-tube in place. Gas-filled bowel loops identified throughout the abdomen and pelvis. No discrete transition point or obstruction. Appendix partially visualized. There is some free fluid in the pelvis. There is no free air. There is a mildly prominent lymph nodes noted in the upper to mid retroperitoneum noted of undetermined etiology or significance. Rivera catheter noted in the bladder. The reservoir for the penile prosthesis is identified in the left lower pelvis. There is a right femoral venous catheter in place. Diffuse sclerosis of the bony pelvis and hips noted of undetermined etiology. IMPRESSION: BILATERAL LOWER LOBE PNEUMONIAS. ALSO SOME HAZY INFILTRATES IN THE UPPER LOBES. A NORMAL SPLEEN IS NOT VISUALIZED. THERE IS A DENSE CRESCENTIC CALCIFICATION LEFT UPPER QUADRANT AT THE EXPECTED LOCATION OF THE SPLEEN. 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 PUNCTATE CORTICAL CALCIFICATION LEFT KIDNEY. NO HYDRONEPHROSIS. PROMINENT LYMPH NODES IN THE UPPER TO MID RETROPERITONEUM OF UNDETERMINED ETIOLOGY OR SIGNIFICANCE. G-TUBE, RIVERA CATHETER, RIGHT FEMORAL CATHETER AND PENILE PROSTHESIS NOTED IN PLACE. MILD DIFFUSE SCLEROSIS OF THE BONY PELVIS AND BOTH HIPS OF UNDETERMINED ETIOLOGY. QUESTION HISTORY OF RENAL OSTEODYSTROPHY. There is a large craniectomy defect in the right frontal temporal region. Diffuse age-related volume loss demonstrated. 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 No definite acute infarct seen. There is no hemorrhage, mass effect or shift. Ventricles and cisterns as well as brainstem and posterior fossa appear unremarkable. The sellar region is normal. Sinuses, mastoid air cells and bony calvarium appear intact. IMPRESSION: Large right frontotemporal craniectomy defect. 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 No definite acute intracranial abnormality. (7) Port-A-Cath in place Assessment & Plan: prior removal for infection site okay dressings changed no active infection from wound picc Harman Zhao Aug 31, 2020 12:29
--- NOTE | 2020-08-31 14:04 | 48 Hour Post Anesthesia Eval ---
Post Anesthesia Evaluation Procedure: Tracheostomy Date of Evaluation: Aug 31, 2020 Time of Evaluation: 14:03 Blood Pressure Systolic: 124 0: 72 Pulse Rate: 118 Respiratory Rate: 22 Temperature (Fahrenheit): 98.9 O2 Sat by Pulse Oximetry: 98 Airway: other - tracheostomy in place Nausea: No Vomiting: No Pain Intensity: 3 Hydration Status: adequate Cardiopulmonary Status: stable Mental Status/LOC: patient returned to baseline Follow-up Care/Observations: n/a Post-Anesthesia Complications: none Follow-up care needed: N/A Sujit Francisco MD Aug 31, 2020 14:04
[2020-08-31] MEDS ORDERED: Tubing IV Secondary IV ONE (14:22)
[2020-08-31] MEDS ORDERED: NS 275ml ONE (14:22)
[2020-08-31] MEDS ORDERED: D5NS 1000ml IV ONE (14:22)
[2020-08-31] MEDS ORDERED: NS 500ML ONE (14:25)
--- NOTE | 2020-08-31 16:14 | General Progress Note ---
Subjective ROS Limited/Unobtainable: Yes Constitutional: Reports: malaise, weakness HEENT: Reports: no symptoms Cardiovascular: Reports: no symptoms Respiratory: Reports: sputum Gastrointestinal/Abdominal: Reports: difficulty swallowing Genitourinary: Reports: no symptoms Neurologic/Psychiatric: Reports: pre-existing deficit, seizure Endocrine: Reports: no symptoms Hematologic/Lymphatic: Reports: anemia Allergies: Coded Allergies: ADHESIVE TAPE (Verified Allergy, Unknown, 07/20/20) Uncoded Allergies: TAPE (Allergy, Unknown, 08/07/20) All Systems: reviewed and negative except above Subjective s/p trach. no events. no bleeding. alert. follows simple commands. decreased h/h noted. wbc trending down. low k Objective Last 24 Hour Vital Signs Date Time Temp Pulse Resp B/P (MAP) Pulse Ox O2 Delivery O2 Flow Rate FiO2 08/31/20 15:59 98.9 08/31/20 14:04 118 22 98 08/31/20 14:00 77 13 159/57 (91) 100 08/31/20 13:00 98.6 78 18 130/64 (86) 100 08/31/20 12:00 77 17 135/60 (85) 100 08/31/20 12:00 71 08/31/20 12:00 Mechanical Ventilator Mechanical Ventilator 08/31/20 12:00 40 08/31/20 11:25 70 13 40 08/31/20 11:00 71 14 117/58 (77) 100 08/31/20 10:00 66 13 137/67 (90) 100 08/31/20 09:00 40 08/31/20 09:00 75 14 130/66 (87) 100 08/31/20 08:00 72 08/31/20 08:00 97.7 70 13 120/51 (74) 100 08/31/20 08:00 Mechanical Ventilator Mechanical Ventilator 08/31/20 07:26 74 15 40 08/31/20 07:00 80 15 122/48 (72) 100 08/31/20 06:00 76 15 132/56 (81) 100 08/31/20 05:00 77 16 122/54 (76) 100 08/31/20 04:00 Mechanical Ventilator Mechanical Ventilator 08/31/20 04:00 81 08/31/20 04:00 97.9 82 15 128/57 (80) 100 08/31/20 04:00 40 08/31/20 03:00 80 16 122/57 (78) 100 08/31/20 02:31 78 13 40 08/31/20 02:00 79 14 135/77 (96) 100 08/31/20 01:00 83 14 134/71 (92) 100 08/31/20 00:00 Mechanical Ventilator Mechanical Ventilator 08/31/20 00:00 87 08/31/20 00:00 98.6 85 16 132/64 (86) 100 08/30/20 23:00 88 19 119/49 (72) 100 08/30/20 22:41 86 17 40 08/30/20 22:00 86 18 135/62 (86) 100 08/30/20 21:00 84 15 138/68 (91) 100 08/30/20 20:00 Mechanical Ventilator Mechanical Ventilator 08/30/20 20:00 98.7 81 13 133/70 (91) 100 08/30/20 20:00 40 08/30/20 20:00 84 08/30/20 19:00 83 14 139/73 (95) 100 08/30/20 18:30 74 17 40 08/30/20 18:00 78 13 112/72 (85) 100 08/30/20 17:00 85 18 110/75 (87) 100 08/30/20 16:30 83 13 112/68 (83) 100 Intake and Output 08/30/20 08/31/20 19:00 07:00 Intake Total 1358.33 ml 1570 ml Output Total 780 ml 960 ml Balance 578.33 ml 610 ml Free Water 130 ml IV Total 938.33 ml 600 ml Tube Feeding 420 ml 840 ml Output Urine Total 730 ml 810 ml Stool Total 50 ml 150 ml Laboratory Tests 08/31/20 04:00: White Blood Count 18.7H, Red Blood Count 1.64L, Hemoglobin 5.3*L, Hematocrit 15.4L, Mean Corpuscular Volume 94, Mean Corpuscular Hemoglobin 32.1H, Mean Corpuscular Hemoglobin Concent 34.2, Red Cell Distribution Width 15.8H, Platelet Count 240, Mean Platelet Volume 8.0, Neutrophils (%) (Auto) , Lymphocytes (%) (Auto) , Monocytes (%) (Auto) , Eosinophils (%) (Auto) , Basophils (%) (Auto) , Differential Total Cells Counted 100, Neutrophils % (Manual) 67, Lymphocytes % (Manual) 18L, Monocytes % (Manual) 10, Eosinophils % (Manual) 3, Basophils % (Manual) 2, Band Neutrophils 0, Platelet Estimate Adequate, Platelet Morphology Normal, Hypochromasia 4+, Anisocytosis 1+, Spherocytes 3+, Sodium Level 145#, Potassium Level 3.3L, Chloride Level 117H, Carbon Dioxide Level 20L, Anion Gap 8, Blood Urea Nitrogen 32H, Creatinine 0.9, Estimat Glomerular Filtration Rate > 60, Glucose Level 112H, Calcium Level 7.6L, Total Bilirubin 1.0, Aspartate Amino Transf (AST/SGOT) 49H, Alanine Aminotransferase (ALT/SGPT) 56, Alkaline Phos phatase 352H, Total Protein 5.6L, Albumin 2.0L, Globulin 3.6, Albumin/Globulin Ratio 0.6L Height (Feet): 5 Height (Inches): 8.00 Weight (Pounds): 113 Objective General Appearance: WD/WN, lethargic EENT: normal ENT inspection. trach c/d/i Neck: normal alignment Cardiovascular: normal peripheral pulses, normal rate Respiratory/Chest: chest wall non-tender, lungs clear, normal breath sounds Abdomen: normal bowel sounds, non tender, soft, no organomegaly Edema: no edema noted Arm (L), no edema noted Arm (R) Neurologic: weak/sedated Assessment/Plan Problem List: (1) Pneumonia ICD Codes: J18.9 - Pneumonia, unspecified organism SNOMED: 600814226 Qualifiers: Qualified Codes: J18.9 - Pneumonia, unspecified organism (2) Sickle cell anemia ICD Codes: D57.1 - Sickle-cell disease without crisis SNOMED: 481215231 Qualifiers: Qualified Codes: D57.00 - Hb-SS disease with crisis, unspecified (3) Severe sepsis ICD Codes: A41.9 - Sepsis, unspecified organism; R65.20 - Severe sepsis without septic shock SNOMED: 47840209 Status: stable, not improved Assessment/Plan: cont vent support wean as able monitor abg resp care suctioning as needed trach care dvt/stress ulcer prophylaxis ivf picc care transfuse as needed monitor labs d/w mother Lalo Ahumada MD Aug 31, 2020 16:14
--- NOTE | 2020-08-31 17:50 | Critical Care Progress Note ---
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 Port-A-Cath Status post removal of implanted right chest wall Port-A-Cath Sickle cell crisis Sickle cell anemia Chronic respiratory failure, ventilator dependent, with tracheostomy status Transaminitis Seizure disorder acute pneumonia leukocytosis recurrent sepsis PLAN care noted d/w surgery IV antibiotics per ID respiratory care as is Ventilatory support- volume ventilation SNF meds supportive care suction no wean planned monitor wbc per ID oxygen therapy and titrate prognosis guarded medications/laboratory data/nursing notes reviewed in detail note reviewed and edited care discussed with RN and RT Critical Care - Subjective ROS Limited/Unobtainable: Yes Condition: critical EKG Rhythm: Sinus Rhythm Residuals: minimal Tube Feeding Tolerated: yes I&O: Intake and Output 08/30/20 08/31/20 19:00 07:00 Intake Total 1358.33 ml 1570 ml Output Total 780 ml 960 ml Balance 578.33 ml 610 ml Free Water 130 ml IV Total 938.33 ml 600 ml Tube Feeding 420 ml 840 ml Output Urine Total 730 ml 810 ml Stool Total 50 ml 150 ml Critical Care - Objective ET-Tube: 7.0 ET Position: 23 Last 24 Hour Vital Signs Date Time Temp Pulse Resp B/P (MAP) Pulse Ox O2 Delivery O2 Flow Rate FiO2 08/31/20 17:00 70 14 132/66 (88) 100 08/31/20 16:00 98.7 77 14 131/71 (91) 100 08/31/20 16:00 40 08/31/20 16:00 76 08/31/20 16:00 Mechanical Ventilator Mechanical Ventilator 08/31/20 15:59 98.9 08/31/20 15:27 77 14 40 08/31/20 15:00 75 15 131/71 (91) 100 08/31/20 15:00 76 17 135/61 (85) 100 08/31/20 14:04 118 22 98 08/31/20 14:00 77 13 159/57 (91) 100 08/31/20 13:00 98.6 78 18 130/64 (86) 100 08/31/20 12:00 77 17 135/60 (85) 100 08/31/20 12:00 71 08/31/20 12:00 Mechanical Ventilator Mechanical Ventilator 08/31/20 12:00 40 08/31/20 11:25 70 13 40 08/31/20 11:00 71 14 117/58 (77) 100 08/31/20 10:00 66 13 137/67 (90) 100 08/31/20 09:00 40 08/31/20 09:00 75 14 130/66 (87) 100 08/31/20 08:00 72 08/31/20 08:00 97.7 70 13 120/51 (74) 100 08/31/20 08:00 Mechanical Ventilator Mechanical Ventilator 08/31/20 07:26 74 15 40 08/31/20 07:00 80 15 122/48 (72) 100 08/31/20 06:00 76 15 132/56 (81) 100 08/31/20 05:00 77 16 122/54 (76) 100 08/31/20 04:00 Mechanical Ventilator Mechanical Ventilator 08/31/20 04:00 81 08/31/20 04:00 97.9 82 15 128/57 (80) 100 08/31/20 04:00 40 08/31/20 03:00 80 16 122/57 (78) 100 08/31/20 02:31 78 13 40 08/31/20 02:00 79 14 135/77 (96) 100 08/31/20 01:00 83 14 134/71 (92) 100 08/31/20 00:00 Mechanical Ventilator Mechanical Ventilator 08/31/20 00:00 87 08/31/20 00:00 98.6 85 16 132/64 (86) 100 08/30/20 23:00 88 19 119/49 (72) 100 08/30/20 22:41 86 17 40 08/30/20 22:00 86 18 135/62 (86) 100 08/30/20 21:00 84 15 138/68 (91) 100 08/30/20 20:00 Mechanical Ventilator Mechanical Ventilator 08/30/20 20:00 98.7 81 13 133/70 (91) 100 08/30/20 20:00 40 08/30/20 20:00 84 08/30/20 19:00 83 14 139/73 (95) 100 08/30/20 18:30 74 17 40 08/30/20 18:00 78 13 112/72 (85) 100 Objective: WDWN NAD reduced breath sounds bilaterally without rhonchi or wheeze [id number] without MRG NABS nontender GT no CCE reduced LOC James Nuñez MD Aug 31, 2020 17:50
--- NOTE | 2020-08-31 18:35 | NUR ---
TRANSFER TO FLOOR: Patient transferred to [facility] room 241, per hospital bed. Report given to ARLYN Julio. No Belongings and medications given to RN. Family informed of transfer.
--- NOTE | 2020-08-31 18:40 | NUR ---
NURSE NOTES: Received patient from ARLYN Bianchi under the care of Dr. Celaya for the admitting Dx. of Sepsis and PNA. Patient was sent to ICU for re-intubation of tracheostomy. Noted size of shiley 6 XLT with settings of AC-12 TV-500 FiO2-40% and PEEP-0. Noted with scant bleeding on trach site. No c/o of pain or discomfort at this time. Patient oriented to room. Will continue to monitor.
--- NOTE | 2020-08-31 19:40 | NUR ---
NURSE HAND-OFF REPORT: Important Events on Shift: Transferred from ICU Patient Status: Stable Diet: GT feeding (Vital AF 1.2) Pending Orders: Pending Results/Labs: Pending MD notification: Latest Vital Signs: Temperature 98.7 , Pulse 72 , B/P 125 /54 , Respiratory Rate 15 , O2 SAT 100 , Mechanical Ventilator, O2 Flow Rate . Vital Sign Comment: EKG Rhythm: Sinus Rhythm Rhythm change?: N MD Notified?: N -GRACE JIMENEZ Response: Latest Stevens Fall Score: 50 Fall Risk: High Risk Safety Measures: Call light Within Reach, Bed Alarm Zone 2, Side Rails Side Rails x2, Bed position Low and Locked. Fall Precautions: Yellow Socks Yellow Gown Door Sign Patient Fall Education Report given to ARLYN Valdes.
--- NOTE | 2020-08-31 19:52 | NUR ---
NURSE NOTES: Received report from ARLYN Young. Pt is transferred from ICU to SDU direct to room 241-2. Alert, oriented, and able to make needs known with mild communication barrier secondary to Vent. 5-lead EKG shows SR. New tracheostomy site inserted 08/30 leaking scant drainage of blood.No respiratory distress noted saturating 100% on prescribed vent settings. New JOLLY PICC inserted 08/30 patent running D5 N/S at 50 mL/hr. G-tube site patent and running Vital AF at 70 cc with 0 residual noted. Overton and rectal tube draining well to gravity. Alterations in skin integrity noted. Photos uploaded. Pt is on mittens for previous attempts to remove trach site. Bed in lowest and locked position. Will continue monitoring.
[2020-08-31] MEDS: Dyna-Hex 2% Top Sol 2oz TOPIC SCH (20:54)
--- NOTE | 2020-08-31 21:00 | NUR ---
NURSE NOTES: Pt agitated and combative with staff despite all needs met. Provided reassurance and TV for distraction which was unsuccessful. PRN given. Will continue to monitor.
[2020-08-31] MEDS: LORazepam Inj 2mg/ml 1ml IV PRN (21:49)
--- NOTE | 2020-08-31 22:02 | General Progress Note ---
Subjective Allergies: Coded Allergies: ADHESIVE TAPE (Verified Allergy, Unknown, 07/20/20) Uncoded Allergies: TAPE (Allergy, Unknown, 08/07/20) Subjective In ICU calm and comfortable tolerating feeds d/w RN Objective Last 24 Hour Vital Signs Date Time Temp Pulse Resp B/P (MAP) Pulse Ox O2 Delivery O2 Flow Rate FiO2 08/31/20 21:49 78 16 126/61 100 08/31/20 20:00 40 08/31/20 19:43 71 08/31/20 19:00 72 15 40 08/31/20 18:00 71 15 125/54 (77) 100 08/31/20 17:00 70 14 132/66 (88) 100 08/31/20 16:00 98.7 77 14 131/71 (91) 100 08/31/20 16:00 40 08/31/20 16:00 76 08/31/20 16:00 Mechanical Ventilator Mechanical Ventilator 08/31/20 15:59 98.9 08/31/20 15:27 77 14 40 08/31/20 15:00 75 15 131/71 (91) 100 08/31/20 15:00 76 17 135/61 (85) 100 08/31/20 14:04 118 22 98 08/31/20 14:00 77 13 159/57 (91) 100 08/31/20 13:00 98.6 78 18 130/64 (86) 100 08/31/20 12:00 77 17 135/60 (85) 100 08/31/20 12:00 71 08/31/20 12:00 Mechanical Ventilator Mechanical Ventilator 08/31/20 12:00 40 08/31/20 11:25 70 13 40 08/31/20 11:00 71 14 117/58 (77) 100 08/31/20 10:00 66 13 137/67 (90) 100 08/31/20 09:00 40 08/31/20 09:00 75 14 130/66 (87) 100 08/31/20 08:00 72 08/31/20 08:00 97.7 70 13 120/51 (74) 100 08/31/20 08:00 Mechanical Ventilator Mechanical Ventilator 08/31/20 07:26 74 15 40 08/31/20 07:00 80 15 122/48 (72) 100 08/31/20 06:00 76 15 132/56 (81) 100 08/31/20 05:00 77 16 122/54 (76) 100 08/31/20 04:00 Mechanical Ventilator Mechanical Ventilator 08/31/20 04:00 81 08/31/20 04:00 97.9 82 15 128/57 (80) 100 08/31/20 04:00 40 08/31/20 03:00 80 16 122/57 (78) 100 08/31/20 02:31 78 13 40 08/31/20 02:00 79 14 135/77 (96) 100 08/31/20 01:00 83 14 134/71 (92) 100 08/31/20 00:00 Mechanical Ventilator Mechanical Ventilator 08/31/20 00:00 87 08/31/20 00:00 98.6 85 16 132/64 (86) 100 08/30/20 23:00 88 19 119/49 (72) 100 08/30/20 22:41 86 17 40 Intake and Output 08/30/20 08/31/20 19:00 07:00 Intake Total 1358.33 ml 1570 ml Output Total 780 ml 960 ml Balance 578.33 ml 610 ml Free Water 130 ml IV Total 938.33 ml 600 ml Tube Feeding 420 ml 840 ml Output Urine Total 730 ml 810 ml Stool Total 50 ml 150 ml Laboratory Tests 08/31/20 04:00: White Blood Count 18.7H, Red Blood Count 1.64L, Hemoglobin 5.3*L, Hematocrit 15.4L, Mean Corpuscular Volume 94, Mean Corpuscular Hemoglobin 32.1H, Mean Corpuscular Hemoglobin Concent 34.2, Red Cell Distribution Width 15.8H, Platelet Count 240, Mean Platelet Volume 8.0, Neutrophils (%) (Auto) , Lymphocytes (%) (Auto) , Monocytes (%) (Auto) , Eosinophils (%) (Auto) , Basophils (%) (Auto) , Differential Total Cells Counted 100, Neutrophils % (Manual) 67, Lymphocytes % (Manual) 18L, Monocytes % (Manual) 10, Eosinophils % (Manual) 3, Basophils % (Manual) 2, Band Neutrophils 0, Platelet Estimate Adequate, Platelet Morphology Normal, Hypochromasia 4+, Anisocytosis 1+, Spherocytes 3+, Sodium Level 145#, Potassium Level 3.3L, Chloride Level 117H, Carbon Dioxide Level 20L, Anion Gap 8, Blood Urea Nitrogen 32H, Creatinine 0.9, Estimat Glomerular Filtration Rate > 60, Glucose Level 112H, Calcium Level 7.6L, Total Bilirubin 1.0, Aspartate Amino Transf (AST/SGOT) 49H, Alanine Aminotransferase (ALT/SGPT) 56, Alkaline Phosphatase 352H, Total Protein 5.6L, Albumin 2.0L, Globulin 3.6, Albumin/Globulin Ratio 0.6L Height (Feet): 5 Height (Inches): 8.00 Weight (Pounds): 113 Objective Thin AA Man HEENT s/p craniotomy, (+) ETT neck (+) dressing Coarse BS, ronchi, tachypnic RR/tachy abd soft (+) GT no edema Assessment/Plan Status: stable, not improved Assessment/Plan: Assessment - respiratory distress - intubated - recent occluded GT - replaced - abnormal LFT - 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
[2020-09-01] VITALS (7 sets, daily range): BP systolic 113–153; BP diastolic 56–84
[2020-09-01] MEDS: Cefepime HCl 2 GM in D5W 55 ML IVPB SCH ×2 (02:14→15:36)
--- NOTE | 2020-09-01 03:00 | NUR ---
NURSE NOTES: Pt sleeping with no distress noted. Vitals WNL. Mom called and wants to facetime with patient. Encourages staff to ensure phone is charging and accessible at all times.
[2020-09-01 04:39] LABS: HEMATOCRIT 22.7 % (42.0-52.0); HEMOGLOBIN 7.8 G/DL (14.2-18.0); MEAN CORPUSCULAR VOLUME 92 FL (80-99); PLATELET COUNT 264 K/UL (150-450); RED BLOOD COUNT 2.47 M/UL (4.70-6.10); RED CELL DISTRIBUTION WIDTH 15.7 % (11.6-14.8); WHITE BLOOD COUNT 19.1 K/UL (4.8-10.8)
[2020-09-01 05:21] LABS: ALANINE AMINOTRANSFERASE 64 U/L (12-78); ALBUMIN 2.4 G/DL (3.4-5.0); ALBUMIN/GLOBULIN RATIO 0.5 (1.0-2.7); ALKALINE PHOSPHATASE 422 U/L (46-116); ANION GAP 12 mmol/L (5-15); ASPARTATE AMINO TRANSFERASE 60 U/L (15-37); BILIRUBIN,TOTAL 1.1 MG/DL (0.2-1.0); BLOOD UREA NITROGEN 38 mg/dL (7-18); CALCIUM 8.6 MG/DL (8.5-10.1); CARBON DIOXIDE 20 MMOL/L (21-32); CHLORIDE 117 MMOL/L (98-107); CREATININE 1.1 MG/DL (0.55-1.30); SODIUM 149 MMOL/L (136-145)
[2020-09-01 06:01] LABS: BILIRUBIN,DIRECT 0.5 MG/DL (0.0-0.3)
--- NOTE | 2020-09-01 07:11 | Hematology/Onc Progress Note ---
Assessment/Plan Assessment/Plan Assessment and Recs # Sickle cell crisis noted upon admission, with hx of sickle cell anemia --> hgb 6.5-->7.1-->6.6->>>>7.3-->7.1 -->6.7-->6.5-->6.8->7-->7.2->6.5-->6.7-->6.5->5.3-->7.8 --> 1 unit prbc on 07/23, 1 unit 08/27, 2 units prbc 08/31 --> ivfs have been started --> anemia panel ordered, with elev ferritin --> recommend to consider hydrea when discharged if stable --> likely does have mild hemolysis --> hgb electrophoresis show evidence of sickle cell trait --> FLOW CYTOMETRY IS NEGATIVE # Hyperferritinemia with elevated ferritin that was noted --> likely consider exjade once discharged though at this time not limiting --> ferritin can >2000 with recurrent transfusions --> trend over time, for EOD observe --> 08/30 deferasirox and ferriprox started # Leukocytosis poa with Severe sepsis due to line infection --> abx: vancomycin-->cefepime/colistin-->cefepime --> wbc 25-->31-->29-->25-->37--->31-->24->19 --> FLOW CYTOMETRY NEG # Respiratory failure s/p Ventilator dependent --> as per pulm, vent adjustment # Port-A-Cath in place --> s/p abx --> s/p permacath removal # Transaminitis -->liver function elevated --> per gi # Dt ppx scds The timing of this note does not necessarily reflect the time of the patient was seen. Greatly appreciate consultation. Subjective Constitutional: Denies: no symptoms, chills, fever, malaise, weakness, other HEENT: Denies: no symptoms, eye pain, blurred vision, tearing, double vision, ear pain, ear discharge, nose pain, nose congestion, throat pain, throat swelling, mouth pain, mouth swelling, other Respiratory: Denies: no symptoms, cough, shortness of breath, SOB with excertion, SOB at rest, sputum, wheezing, other Gastrointestinal/Abdominal: Denies: no symptoms, abdomen distended, abdominal pain, black stools, tarry stools, blood in stool, constipated, diarrhea, difficulty swallowing, nausea, poor appetite, poor fluid intake, rectal bleeding, vomiting, other Genitourinary: Denies: no symptoms, burning, discharge, frequency, flank pain, hematuria, incontinence, pain, urgency, other Neurologic/Psychiatric: Denies: no symptoms, anxiety, depressed, emotional problems, headache, numbness, paresthesia, pre-existing deficit, seizure, tingling, tremors, weakness, other Hematologic/Lymphatic: Denies: no symptoms, anemia, easy bleeding, easy bruising, adenopathy, other Allergies: Coded Allergies: ADHESIVE TAPE (Verified Allergy, Unknown, 07/20/20) Uncoded Allergies: TAPE (Allergy, Unknown, 08/07/20) Subjective 08/19 no acute events, vent, iv abx, labs reviewed 08/20 labs reviewed, seen by Dr. Celaya and mychal Rn, holding off prbc 08/21 remains on abx with persistently elev wbc, on abx broad spectrum 08/22 labs reviewed, no bleeding, meds noted, wbc still 25k, hgb 6.8, transfuse pr 08/23 cbc has been ordered, meds noted, on cefepime, have dw path is flow back 08/24 hob is elevated, labs noted, hgb 7, consider for transfusions soon, wbc is better 08/25 labs are reviewed, wbc is worse, flow was done and is negative 08/27 is in the icu, labs noted, on cefepime and vanc, wbc 31 08/29 labs reviewed, hgb 6.7, mychal Feldman in am, no bleeding, seen with Belia 08/30 remains on vent, have restart home chelating agents, hgb 6.5 08/31 feeling better, hgb 5.3, have mychal Avalos Artemio to get 2 units prbc stat 09/01 labs are noted, wbc 19, hgb 7.8, no hemolysis, meds reviewed Objective Objective Current Medications Medications (Trade) Dose Ordered Sig/Piedad Route PRN Reason Start Time Stop Time Status Last Admin Dose Admin Acetaminophen (Tylenol) 650 mg Q4H PRN GT Mild Pain (Pain Scale 1-3) 08/24/20 13:00 09/23/20 12:59 08/28/20 13:40 Acetaminophen (Tylenol) 650 mg Q6H PRN GT Temp >100.5 08/10/20 20:20 09/09/20 20:19 08/29/20 20:32 Cefepime HCl 2 gm/ Dextrose 55 ml @ 110 mls/hr Q12H IVPB 08/25/20 14:00 09/01/20 13:59 09/01/20 02:14 Chlorhexidine Gluconate (Christy-Hex 2%) 1 applic DAILY@2000 TOPIC 08/14/20 20:00 11/12/20 19:59 08/31/20 20:54 Dextrose/Sodium Chloride 1,000 ml @ 50 mls/hr Q20H IV 08/30/20 08:00 09/29/20 07:59 08/31/20 21:48 Folic Acid (Folate) 1 mg DAILY GT 08/11/20 09:00 09/07/20 08:59 08/31/20 09:23 Levetiracetam 100 ml @ 400 mls/hr Q12HR IVPB 08/14/20 10:00 11/12/20 09:59 08/31/20 20:54 Linezolid 300 ml @ 300 mls/hr Q12HR IVPB 08/29/20 11:00 09/05/20 10:59 08/31/20 20:54 Lorazepam (Ativan 2mg/ml 1ml) 1 mg Q4H PRN IV For Anxiety 08/26/20 07:00 09/02/20 06:59 08/31/20 21:49 Metoclopramide HCl (Reglan) 10 mg Q8H PRN IVP Nausea & Vomiting 08/26/20 11:15 09/25/20 11:14 08/27/20 20:46 Morphine Sulfate (Morphine Sulfate) 1 mg Q4HR PRN IVP Moderate Pain (Pain Scale 4-6) 08/26/20 07:00 09/02/20 06:59 08/28/20 11:39 Morphine Sulfate (Morphine Sulfate) 2 mg Q4H PRN IVP Severe Pain (Pain Scale 7-10) 08/28/20 15:00 09/04/20 14:59 08/31/20 15:29 Multivitamins (Multivitamins) 1 tab DAILY GT 08/11/20 09:00 09/07/20 08:59 08/31/20 09:23 Pantoprazole (Protonix) 40 mg EVERY 12 HOURS IVP 08/13/20 22:15 09/12/20 22:14 08/31/20 20:54 Patient Own Medication (Patient's Own Med) 2 ea TID GT 08/30/20 09:00 09/29/20 08:59 08/31/20 18:00 Patient Own Medication (Patient's Own Med) 3 ea DAILY GT 08/30/20 09:00 09/29/20 08:59 08/31/20 09:24 Ursodiol (Actigall) 300 mg TWICE A DAY ORAL 09/01/20 09:00 11/30/20 08:59 Last 24 Hour Vital Signs Date Time Temp Pulse Resp B/P (MAP) Pulse Ox O2 Delivery O2 Flow Rate FiO2 09/01/20 04:15 91 153/84 (107) 09/01/20 04:00 98.1 70 17 147/84 (105) 100 09/01/20 04:00 Mechanical Ventilator Mechanical Ventilator 09/01/20 04:00 40 09/01/20 03:28 75 09/01/20 03:07 89 20 40 09/01/20 00:00 98.1 77 15 116/61 (79) 100 09/01/20 00:00 Mechanical Ventilator Mechanical Ventilator 09/01/20 00:00 75 08/31/20 23:06 80 15 40 08/31/20 22:19 78 16 126/61 100 08/31/20 21:49 78 16 126/61 100 08/31/20 20:00 Mechanical Ventilator Mechanical Ventilator 08/31/20 20:00 98.2 83 15 126/64 (84) 100 08/31/20 20:00 40 08/31/20 19:43 71 08/31/20 19:00 72 15 40 08/31/20 18:00 71 15 125/54 (77) 100 08/31/20 17:00 70 14 132/66 (88) 100 08/31/20 16:00 98.7 77 14 131/71 (91) 100 08/31/20 16:00 40 08/31/20 16:00 76 08/31/20 16:00 Mechanical Ventilator Mechanical Ventilator 08/31/20 15:59 98.9 08/31/20 15:27 77 14 40 08/31/20 15:00 75 15 131/71 (91) 100 08/31/20 15:00 76 17 135/61 (85) 100 08/31/20 14:04 118 22 98 08/31/20 14:00 77 13 159/57 (91) 100 08/31/20 13:00 98.6 78 18 130/64 (86) 100 08/31/20 12:00 77 17 135/60 (85) 100 08/31/20 12:00 71 08/31/20 12:00 Mechanical Ventilator Mechanical Ventilator 08/31/20 12:00 40 08/31/20 11:25 70 13 40 08/31/20 11:00 71 14 117/58 (77) 100 08/31/20 10:00 66 13 137/67 (90) 100 08/31/20 09:00 40 08/31/20 09:00 75 14 130/66 (87) 100 08/31/20 08:00 72 08/31/20 08:00 97.7 70 13 120/51 (74) 100 08/31/20 08:00 Mechanical Ventilator Mechanical Ventilator 08/31/20 07:26 74 15 40 08/31/20 07:00 80 15 122/48 (72) 100 08/31/20 06:00 76 15 132/56 (81) 100 08/31/20 05:00 77 16 122/54 (76) 100 08/31/20 04:00 Mechanical Ventilator Mechanical Ventilator 08/31/20 04:00 81 08/31/20 04:00 97.9 82 15 128/57 (80) 100 08/31/20 04:00 40 08/31/20 03:00 80 16 122/57 (78) 100 08/31/20 02:31 78 13 40 08/31/20 02:00 79 14 135/77 (96) 100 08/31/20 01:00 83 14 134/71 (92) 100 08/31/20 00:00 Mechanical Ventilator Mechanical Ventilator 08/31/20 00:00 87 08/31/20 00:00 98.6 85 16 132/64 (86) 100 08/30/20 23:00 88 19 119/49 (72) 100 08/30/20 22:41 86 17 40 08/30/20 22:00 86 18 135/62 (86) 100 08/30/20 21:00 84 15 138/68 (91) 100 08/30/20 20:00 Mechanical Ventilator Mechanical Ventilator 08/30/20 20:00 98.7 81 13 133/70 (91) 100 08/30/20 20:00 40 08/30/20 20:00 84 08/30/20 19:00 83 14 139/73 (95) 100 08/30/20 18:30 74 17 40 08/30/20 18:00 78 13 112/72 (85) 100 08/30/20 17:00 85 18 110/75 (87) 100 08/30/20 16:30 83 13 112/68 (83) 100 08/30/20 16:00 Mechanical Ventilator Mechanical Ventilator 08/30/20 16:00 40 08/30/20 16:00 99.5 89 14 114/72 (86) 100 08/30/20 15:40 92 08/30/20 15:30 93 14 123/50 (74) 100 08/30/20 15:22 100 99 08/30/20 15:10 74 15 40 08/30/20 15:02 110 12 100 08/30/20 15:00 112 13 128/93 (105) 99 08/30/20 13:00 83 17 126/67 (86) 100 08/30/20 12:00 40 08/30/20 12:00 Mechanical Ventilator Mechanical Ventilator 08/30/20 12:00 81 17 124/65 (84) 100 08/30/20 11:35 80 08/30/20 11:05 87 15 40 08/30/20 11:00 85 15 127/68 (87) 100 08/30/20 10:00 84 14 130/66 (87) 100 08/30/20 09:00 85 17 134/65 (88) 100 08/30/20 08:00 Mechanical Ventilator Mechanical Ventilator 08/30/20 08:00 99.7 85 15 121/61 (81) 100 08/30/20 08:00 40 08/30/20 07:41 76 08/30/20 07:28 83 15 40 Intake and Output 08/31/20 09/01/20 19:00 07:00 Intake Total 1675 ml 1730 ml Output Total 1520 ml 1800 ml Balance 155 ml -70 ml Free Water 160 ml 40 ml IV Total 675 ml 920 ml Tube Feeding 840 ml 770 ml Output Urine Total 1370 ml 1800 ml Stool Total 150 ml # Bowel Movements 1 3 Labs Test 08/30/20 04:00 08/31/20 04:00 09/01/20 04:00 White Blood Count 18.9 K/UL (4.8-10.8) 18.7 K/UL (4.8-10.8) 19.1 K/UL (4.8-10.8) Red Blood Count 2.02 M/UL (4.70-6.10) 1.64 M/UL (4.70-6.10) 2.47 M/UL (4.70-6.10) Hemoglobin 6.5 G/DL (14.2-18.0) 5.3 G/DL (14.2-18.0) 7.8 G/DL (14.2-18.0) Hematocrit 19.0 % (42.0-52.0) 15.4 % (42.0-52.0) 22.7 % (42.0-52.0) Mean Corpuscular Volume 94 FL (80-99) 94 FL (80-99) 92 FL (80-99) Mean Corpuscular Hemoglobin 32.1 PG (27.0-31.0) 32.1 PG (27.0-31.0) 31.8 PG (27.0-31.0) Mean Corpuscular Hemoglobin Concent 34.0 G/DL (32.0-36.0) 34.2 G/DL (32.0-36.0) 34.5 G/DL (32.0-36.0) Red Cell Distribution Width 16.9 % (11.6-14.8) 15.8 % (11.6-14.8) 15.7 % (11.6-14.8) Platelet Count 332 K/UL (150-450) 240 K/UL (150-450) 264 K/UL (150-450) Mean Platelet Volume 8.8 FL (6.5-10.1) 8.0 FL (6.5-10.1) 7.9 FL (6.5-10.1) Neutrophils (%) (Auto) % (45.0-75.0) % (45.0-75.0) % (45.0-75.0) Lymphocytes (%) (Auto) % (20.0-45.0) % (20.0-45.0) % (20.0-45.0) Monocytes (%) (Auto) % (1.0-10.0) % (1.0-10.0) % (1.0-10.0) Eosinophils (%) (Auto) % (0.0-3.0) % (0.0-3.0) % (0.0-3.0) Basophils (%) (Auto) % (0.0-2.0) % (0.0-2.0) % (0.0-2.0) Differential Total Cells Counted 100 100 Neutrophils % (Manual) 57 % (45-75) 67 % (45-75) Lymphocytes % (Manual) 15 % (20-45) 18 % (20-45) Monocytes % (Manual) 17 % (1-10) 10 % (1-10) Eosinophils % (Manual) 10 % (0-3) 3 % (0-3) Basophils % (Manual) 1 % (0-2) 2 % (0-2) Band Neutrophils 0 % (0-8) 0 % (0-8) Platelet Estimate Adequate Adequate Platelet Morphology Normal Normal Anisocytosis 1+ 1+ Prothrombin Time 13.0 SEC (9.30-11.50) Prothromb Time International Ratio 1.2 (0.9-1.1) Activated Partial Thromboplast Time 36 SEC (23-33) Sodium Level 131 MMOL/L (136-145) 145 MMOL/L (136-145) 149 MMOL/L (136-145) Potassium Level 3.9 MMOL/L (3.5-5.1) 3.3 MMOL/L (3.5-5.1) 4.0 MMOL/L (3.5-5.1) Chloride Level 104 MMOL/L (98-107) 117 MMOL/L (98-107) 117 MMOL/L (98-107) Carbon Dioxide Level 24 MMOL/L (21-32) 20 MMOL/L (21-32) 20 MMOL/L (21-32) Anion Gap 3 mmol/L (5-15) 8 mmol/L (5-15) 12 mmol/L (5-15) Blood Urea Nitrogen 39 mg/dL (7-18) 32 mg/dL (7-18) 38 mg/dL (7-18) Creatinine 1.0 MG/DL (0.55-1.30) 0.9 MG/DL (0.55-1.30) 1.1 MG/DL (0.55-1.30) Estimat Glomerular Filtration Rate > 60 mL/min (>60) > 60 mL/min (>60) > 60 mL/min (>60) Glucose Level 107 MG/DL (74-106) 112 MG/DL (74-106) 334 MG/DL (74-106) Calcium Level 9.2 MG/DL (8.5-10.1) 7.6 MG/DL (8.5-10.1) 8.6 MG/DL (8.5-10.1) Total Bilirubin 1.1 MG/DL (0.2-1.0) 1.0 MG/DL (0.2-1.0) 1.1 MG/DL (0.2-1.0) Direct Bilirubin 0.5 MG/DL (0.0-0.3) 0.5 MG/DL (0.0-0.3) Aspartate Amino Transf (AST/SGOT) 56 U/L (15-37) 49 U/L (15-37) 60 U/L (15-37) Alanine Aminotransferase (ALT/SGPT) 67 U/L (12-78) 56 U/L (12-78) 64 U/L (12-78) Alkaline Phosphatase 429 U/L (46-116) 352 U/L (46-116) 422 U/L (46-116) Total Protein 7.5 G/DL (6.4-8.2) 5.6 G/DL (6.4-8.2) 7.2 G/DL (6.4-8.2) Albumin 2.4 G/DL (3.4-5.0) 2.0 G/DL (3.4-5.0) 2.4 G/DL (3.4-5.0) Globulin 5.1 g/dL 3.6 g/dL 4.8 g/dL Albumin/Globulin Ratio 0.5 (1.0-2.7) 0.6 (1.0-2.7) 0.5 (1.0-2.7) Hypochromasia 4+ Spherocytes 3+ Height (Feet): 5 Height (Inches): 8.00 Weight (Pounds): 113 Objective Physical Exam General: alert, Chronically Ill Head: other - Large right-sided craniotomy defect well[place]heale ++, tracheotomy/vent Respiratory: crackles, rales, other - right side chest wall tenderness Cardiovascular: tachycardia Gastrointestinal: normal inspection, soft, gt++ Musk: decreased range of motion, other - atrophic, motor weakness Neurologic: alert, motor weakness, other - left hemineglect Psychiatric: normal inspection Skin: no rash : garcia++ Roshan Castillo MD Sep 01, 2020 07:11
--- NOTE | 2020-09-01 08:28 | Critical Care Progress Note ---
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 Port-A-Cath Status post removal of implanted right chest wall Port-A-Cath Sickle cell crisis Sickle cell anemia Chronic respiratory failure, ventilator dependent, with tracheostomy status Transaminitis Seizure disorder acute pneumonia leukocytosis recurrent sepsis PLAN care noted d/w surgery IV antibiotics per ID respiratory care as is Ventilatory support- volume ventilation SNF meds supportive care suction no wean planned monitor wbc per ID oxygen therapy and titrate prognosis guarded medications/laboratory data/nursing notes reviewed in detail note reviewed and edited care discussed with RN and RT Critical Care - Subjective ROS Limited/Unobtainable: Yes Condition: critical EKG Rhythm: Sinus Tachycardia Residuals: minimal Tube Feeding Tolerated: yes I&O: Intake and Output 08/31/20 09/01/20 19:00 07:00 Intake Total 1675 ml 1730 ml Output Total 1520 ml 1800 ml Balance 155 ml -70 ml Free Water 160 ml 40 ml IV Total 675 ml 920 ml Tube Feeding 840 ml 770 ml Output Urine Total 1370 ml 1800 ml Stool Total 150 ml # Bowel Movements 1 3 Critical Care - Objective ET-Tube: 7.0 ET Position: 23 Last 24 Hour Vital Signs Date Time Temp Pulse Resp B/P (MAP) Pulse Ox O2 Delivery O2 Flow Rate FiO2 09/01/20 07:19 77 14 40 09/01/20 04:15 91 153/84 (107) 09/01/20 04:00 98.1 70 17 147/84 (105) 100 09/01/20 04:00 Mechanical Ventilator Mechanical Ventilator 09/01/20 04:00 40 09/01/20 03:28 75 09/01/20 03:07 89 20 40 09/01/20 00:00 98.1 77 15 116/61 (79) 100 09/01/20 00:00 Mechanical Ventilator Mechanical Ventilator 09/01/20 00:00 75 08/31/20 23:06 80 15 40 08/31/20 22:19 78 16 126/61 100 08/31/20 21:49 78 16 126/61 100 08/31/20 20:00 Mechanical Ventilator Mechanical Ventilator 08/31/20 20:00 98.2 83 15 126/64 (84) 100 08/31/20 20:00 40 08/31/20 19:43 71 08/31/20 19:00 72 15 40 08/31/20 18:00 71 15 125/54 (77) 100 08/31/20 17:00 70 14 132/66 (88) 100 08/31/20 16:00 98.7 77 14 131/71 (91) 100 08/31/20 16:00 40 08/31/20 16:00 76 08/31/20 16:00 Mechanical Ventilator Mechanical Ventilator 08/31/20 15:59 98.9 08/31/20 15:27 77 14 40 08/31/20 15:00 75 15 131/71 (91) 100 08/31/20 15:00 76 17 135/61 (85) 100 08/31/20 14:04 118 22 98 08/31/20 14:00 77 13 159/57 (91) 100 08/31/20 13:00 98.6 78 18 130/64 (86) 100 08/31/20 12:00 77 17 135/60 (85) 100 08/31/20 12:00 71 08/31/20 12:00 Mechanical Ventilator Mechanical Ventilator 08/31/20 12:00 40 08/31/20 11:25 70 13 40 08/31/20 11:00 71 14 117/58 (77) 100 08/31/20 10:00 66 13 137/67 (90) 100 08/31/20 09:00 40 08/31/20 09:00 75 14 130/66 (87) 100 Objective: WDWN NAD reduced breath sounds bilaterally without rhonchi or wheeze [id number] without MRG NABS nontender GT no CCE reduced LOC James Nuñez MD Sep 01, 2020 08:28
[2020-09-01] MEDS: DEFERASIROX 360 MG GT SCH (08:59)
[2020-09-01] MEDS: levETIRAcetam 1,000mg/NS100ml 100 ML IVPB SCH ×2 (09:00→20:33)
[2020-09-01] MEDS: Ursodiol 300mg cap ORAL SCH ×2 (09:00→18:29)
[2020-09-01] MEDS: Pantoprazole Inj IVP SCH ×2 (09:00→20:33)
[2020-09-01] MEDS: Linezolid 600mg/300ml (Pre-Mix) IVPB SCH ×2 (09:00→20:34)
--- NOTE | 2020-09-01 09:00 | NUR ---
NURSE NOTES: Pt in stable condition. Requests pain medication for generalized pain. PRN given. Will continue monitoring.
[2020-09-01] MEDS: FERRIPROX GT SCH ×3 (09:01→18:29)
[2020-09-01] MEDS: Morphine Sulfate 2mg/ml Inj(IV/IM USE ONLY) IVP PRN (10:02)
--- NOTE | 2020-09-01 11:17 | Infectious Diseases Prog Note ---
Assessment/Plan Assessment/Plan antibiotics : linezolid 9.29.20 - cefepime 9.25.20 - A 1. VRE sepsis 2. serratia pneumonia 3. respiratory failure 4. sickle cell disease 5. anemia 6. leucocytosis improving 7. seizures P 1. continue iv cefepime 2 more days 2. continue linezolid 6 more days 3. will follow up cultures Subjective ROS Limited/Unobtainable: Yes Allergies: Coded Allergies: ADHESIVE TAPE (Verified Allergy, Unknown, 07/20/20) Uncoded Allergies: TAPE (Allergy, Unknown, 08/07/20) Objective Last 24 Hour Vital Signs Date Time Temp Pulse Resp B/P (MAP) Pulse Ox O2 Delivery O2 Flow Rate FiO2 09/01/20 10:32 98.1 09/01/20 08:00 Mechanical Ventilator Mechanical Ventilator 09/01/20 08:00 40 09/01/20 08:00 98.2 67 15 128/66 (86) 100 09/01/20 08:00 72 09/01/20 07:19 77 14 40 09/01/20 04:15 91 153/84 (107) 09/01/20 04:00 98.1 70 17 147/84 (105) 100 09/01/20 04:00 Mechanical Ventilator Mechanical Ventilator 09/01/20 04:00 40 09/01/20 03:28 75 09/01/20 03:07 89 20 40 09/01/20 00:00 98.1 77 15 116/61 (79) 100 09/01/20 00:00 Mechanical Ventilator Mechanical Ventilator 09/01/20 00:00 75 08/31/20 23:06 80 15 40 08/31/20 22:19 78 16 126/61 100 08/31/20 21:49 78 16 126/61 100 08/31/20 20:00 Mechanical Ventilator Mechanical Ventilator 08/31/20 20:00 98.2 83 15 126/64 (84) 100 08/31/20 20:00 40 08/31/20 19:43 71 08/31/20 19:00 72 15 40 08/31/20 18:00 71 15 125/54 (77) 100 08/31/20 17:00 70 14 132/66 (88) 100 08/31/20 16:00 98.7 77 14 131/71 (91) 100 08/31/20 16:00 40 08/31/20 16:00 76 08/31/20 16:00 Mechanical Ventilator Mechanical Ventilator 08/31/20 15:59 98.9 08/31/20 15:27 77 14 40 08/31/20 15:00 75 15 131/71 (91) 100 08/31/20 15:00 76 17 135/61 (85) 100 08/31/20 14:04 118 22 98 08/31/20 14:00 77 13 159/57 (91) 100 08/31/20 13:00 98.6 78 18 130/64 (86) 100 08/31/20 12:00 77 17 135/60 (85) 100 08/31/20 12:00 71 08/31/20 12:00 Mechanical Ventilator Mechanical Ventilator 08/31/20 12:00 40 08/31/20 11:25 70 13 40 Height (Feet): 5 Height (Inches): 8.00 Weight (Pounds): 113 HEENT: status post trach Respiratory/Chest: lungs clear Cardiovascular: normal rate, regular rhythm, no gallop/murmur Abdomen: soft, non tender, other - GT Extremities: no edema Laboratory Tests Test 09/01/20 04:00 White Blood Count 19.1 K/UL (4.8-10.8) H Red Blood Count 2.47 M/UL (4.70-6.10) L Hemoglobin 7.8 G/DL (14.2-18.0) #L Hematocrit 22.7 % (42.0-52.0) #L Mean Corpuscular Volume 92 FL (80-99) Mean Corpuscular Hemoglobin 31.8 PG (27.0-31.0) H Mean Corpuscular Hemoglobin Concent 34.5 G/DL (32.0-36.0) Red Cell Distribution Width 15.7 % (11.6-14.8) H Platelet Count 264 K/UL (150-450) Mean Platelet Volume 7.9 FL (6.5-10.1) Neutrophils (%) (Auto) % (45.0-75.0) Lymphocytes (%) (Auto) % (20.0-45.0) Monocytes (%) (Auto) % (1.0-10.0) Eosinophils (%) (Auto) % (0.0-3.0) Basophils (%) (Auto) % (0.0-2.0) Differential Total Cells Counted 100 Neutrophils % (Manual) 65 % (45-75) Lymphocytes % (Manual) 22 % (20-45) Monocytes % (Manual) 8 % (1-10) Eosinophils % (Manual) 4 % (0-3) H Basophils % (Manual) 1 % (0-2) Band Neutrophils 0 % (0-8) Platelet Estimate Adequate Platelet Morphology Normal Hypochromasia 3+ Anisocytosis 1+ Sodium Level 149 MMOL/L (136-145) H Potassium Level 4.0 MMOL/L (3.5-5.1) Chloride Level 117 MMOL/L (98-107) H Carbon Dioxide Level 20 MMOL/L (21-32) L Anion Gap 12 mmol/L (5-15) Blood Urea Nitrogen 38 mg/dL (7-18) H Creatinine 1.1 MG/DL (0.55-1.30) Estimat Glomerular Filtration Rate > 60 mL/min (>60) Glucose Level 334 MG/DL (74-106) #H Calcium Level 8.6 MG/DL (8.5-10.1) Total Bilirubin 1.1 MG/DL (0.2-1.0) H Direct Bilirubin 0.5 MG/DL (0.0-0.3) H Aspartate Amino Transf (AST/SGOT) 60 U/L (15-37) H Alanine Aminotransferase (ALT/SGPT) 64 U/L (12-78) Alkaline Phosphatase 422 U/L (46-116) H Total Protein 7.2 G/DL (6.4-8.2) Albumin 2.4 G/DL (3.4-5.0) L Globulin 4.8 g/dL Albumin/Globulin Ratio 0.5 (1.0-2.7) L Current Medications Medications (Trade) Dose Ordered Sig/Piedad Route PRN Reason Start Time Stop Time Status Last Admin Dose Admin Acetaminophen (Tylenol) 650 mg Q4H PRN GT Mild Pain (Pain Scale 1-3) 08/24/20 13:00 09/23/20 12:59 08/28/20 13:40 Acetaminophen (Tylenol) 650 mg Q6H PRN GT Temp >100.5 08/10/20 20:20 09/09/20 20:19 08/29/20 20:32 Cefepime HCl 2 gm/ Dextrose 55 ml @ 110 mls/hr Q12H IVPB 08/25/20 14:00 09/01/20 13:59 09/01/20 02:14 Chlorhexidine Gluconate (Christy-Hex 2%) 1 applic DAILY@2000 TOPIC 08/14/20 20:00 11/12/20 19:59 08/31/20 20:54 Dextrose/Sodium Chloride 1,000 ml @ 50 mls/hr Q20H IV 08/30/20 08:00 09/29/20 07:59 08/31/20 21:48 Folic Acid (Folate) 1 mg DAILY GT 08/11/20 09:00 09/07/20 08:59 09/01/20 09:01 Levetiracetam 100 ml @ 400 mls/hr Q12HR IVPB 08/14/20 10:00 11/12/20 09:59 09/01/20 09:00 Linezolid 300 ml @ 300 mls/hr Q12HR IVPB 08/29/20 11:00 09/05/20 10:59 09/01/20 09:00 Lorazepam (Ativan 2mg/ml 1ml) 1 mg Q4H PRN IV For Anxiety 08/26/20 07:00 09/02/20 06:59 08/31/20 21:49 Metoclopramide HCl (Reglan) 10 mg Q8H PRN IVP Nausea & Vomiting 08/26/20 11:15 09/25/20 11:14 08/27/20 20:46 Morphine Sulfate (Morphine Sulfate) 1 mg Q4HR PRN IVP Moderate Pain (Pain Scale 4-6) 08/26/20 07:00 09/02/20 06:59 08/28/20 11:39 Morphine Sulfate (Morphine Sulfate) 2 mg Q4H PRN IVP Severe Pain (Pain Scale 7-10) 08/28/20 15:00 09/04/20 14:59 09/01/20 10:02 Multivitamins (Multivitamins) 1 tab DAILY GT 08/11/20 09:00 09/07/20 08:59 09/01/20 09:01 Pantoprazole (Protonix) 40 mg EVERY 12 HOURS IVP 08/13/20 22:15 09/12/20 22:14 09/01/20 09:00 Patient Own Medication (Patient's Own Med) 2 ea TID GT 08/30/20 09:00 09/29/20 08:59 09/01/20 09:01 Patient Own Medication (Patient's Own Med) 3 ea DAILY GT 08/30/20 09:00 09/29/20 08:59 09/01/20 08:59 Ursodiol (Actigall) 300 mg TWICE A DAY ORAL 09/01/20 09:00 11/30/20 08:59 09/01/20 09:00 Isabelle Degroot MD Sep 01, 2020 11:17
--- NOTE | 2020-09-01 11:33 | Surgery Progress Note ---
Surgery Progress Note Subjective Procedure Performed Tracheostomy Additional Comments prbc h/h improved wbc noted more comfortable downgraded trach stable on support Objective Last 24 Hour Vital Signs Date Time Temp Pulse Resp B/P (MAP) Pulse Ox O2 Delivery O2 Flow Rate FiO2 09/01/20 11:21 82 18 40 09/01/20 10:32 98.1 09/01/20 08:00 Mechanical Ventilator Mechanical Ventilator 09/01/20 08:00 40 09/01/20 08:00 98.2 67 15 128/66 (86) 100 09/01/20 08:00 72 09/01/20 07:19 77 14 40 09/01/20 04:15 91 153/84 (107) 09/01/20 04:00 98.1 70 17 147/84 (105) 100 09/01/20 04:00 Mechanical Ventilator Mechanical Ventilator 09/01/20 04:00 40 09/01/20 03:28 75 09/01/20 03:07 89 20 40 09/01/20 00:00 98.1 77 15 116/61 (79) 100 09/01/20 00:00 Mechanical Ventilator Mechanical Ventilator 09/01/20 00:00 75 08/31/20 23:06 80 15 40 08/31/20 22:19 78 16 126/61 100 08/31/20 21:49 78 16 126/61 100 08/31/20 20:00 Mechanical Ventilator Mechanical Ventilator 08/31/20 20:00 98.2 83 15 126/64 (84) 100 08/31/20 20:00 40 08/31/20 19:43 71 08/31/20 19:00 72 15 40 08/31/20 18:00 71 15 125/54 (77) 100 08/31/20 17:00 70 14 132/66 (88) 100 08/31/20 16:00 98.7 77 14 131/71 (91) 100 08/31/20 16:00 40 08/31/20 16:00 76 08/31/20 16:00 Mechanical Ventilator Mechanical Ventilator 08/31/20 15:59 98.9 08/31/20 15:27 77 14 40 08/31/20 15:00 75 15 131/71 (91) 100 08/31/20 15:00 76 17 135/61 (85) 100 08/31/20 14:04 118 22 98 08/31/20 14:00 77 13 159/57 (91) 100 08/31/20 13:00 98.6 78 18 130/64 (86) 100 08/31/20 12:00 77 17 135/60 (85) 100 08/31/20 12:00 71 08/31/20 12:00 Mechanical Ventilator Mechanical Ventilator 08/31/20 12:00 40 I&O Intake and Output 08/31/20 09/01/20 19:00 07:00 Intake Total 1675 ml 1900 ml Output Total 1520 ml 1800 ml Balance 155 ml 100 ml Free Water 160 ml 40 ml IV Total 675 ml 1020 ml Tube Feeding 840 ml 840 ml Output Urine Total 1370 ml 1800 ml Stool Total 150 ml # Bowel Movements 1 3 Dressing: other Wound: other Cardiovascular: RSR Respiratory: decreased breath sounds Abdomen: soft, non-tender, present bowel sounds Extremities: no tenderness, no cyanosis Laboratory Tests Test 09/01/20 04:00 White Blood Count 19.1 K/UL (4.8-10.8) H Red Blood Count 2.47 M/UL (4.70-6.10) L Hemoglobin 7.8 G/DL (14.2-18.0) #L Hematocrit 22.7 % (42.0-52.0) #L Mean Corpuscular Volume 92 FL (80-99) Mean Corpuscular Hemoglobin 31.8 PG (27.0-31.0) H Mean Corpuscular Hemoglobin Concent 34.5 G/DL (32.0-36.0) Red Cell Distribution Width 15.7 % (11.6-14.8) H Platelet Count 264 K/UL (150-450) Mean Platelet Volume 7.9 FL (6.5-10.1) Neutrophils (%) (Auto) % (45.0-75.0) Lymphocytes (%) (Auto) % (20.0-45.0) Monocytes (%) (Auto) % (1.0-10.0) Eosinophils (%) (Auto) % (0.0-3.0) Basophils (%) (Auto) % (0.0-2.0) Differential Total Cells Counted 100 Neutrophils % (Manual) 65 % (45-75) Lymphocytes % (Manual) 22 % (20-45) Monocytes % (Manual) 8 % (1-10) Eosinophils % (Manual) 4 % (0-3) H Basophils % (Manual) 1 % (0-2) Band Neutrophils 0 % (0-8) Platelet Estimate Adequate Platelet Morphology Normal Hypochromasia 3+ Anisocytosis 1+ Sodium Level 149 MMOL/L (136-145) H Potassium Level 4.0 MMOL/L (3.5-5.1) Chloride Level 117 MMOL/L (98-107) H Carbon Dioxide Level 20 MMOL/L (21-32) L Anion Gap 12 mmol/L (5-15) Blood Urea Nitrogen 38 mg/dL (7-18) H Creatinine 1.1 MG/DL (0.55-1.30) Estimat Glomerular Filtration Rate > 60 mL/min (>60) Glucose Level 334 MG/DL (74-106) #H Calcium Level 8.6 MG/DL (8.5-10.1) Total Bilirubin 1.1 MG/DL (0.2-1.0) H Direct Bilirubin 0.5 MG/DL (0.0-0.3) H Aspartate Amino Transf (AST/SGOT) 60 U/L (15-37) H Alanine Aminotransferase (ALT/SGPT) 64 U/L (12-78) Alkaline Phosphatase 422 U/L (46-116) H Total Protein 7.2 G/DL (6.4-8.2) Albumin 2.4 G/DL (3.4-5.0) L Globulin 4.8 g/dL Albumin/Globulin Ratio 0.5 (1.0-2.7) L Plan Problems: (1) Pneumonia (2) Sickle cell anemia (3) Tachycardia (4) Severe sepsis (5) Sickle cell crisis (6) Sepsis Assessment & Plan: 35-year-old male sickle cell multiple comorbidities history of craniotomy trach feeding tube prior port infected removed see prior admission and consult and operative notes. Currently presents with significant leukocytosis fevers hypotension in intensive care unit wound site evaluated unlikely etiology. Trach evaluated may consider changing. LFTs noted elevated. Ultrasound ordered pending results trend labs continue IV antibiotics appreciate infectious disease input will follow with recommendations thank you for let me participate in patient's care KUB and US noted labs reviewed transfuse prbc prn trach change peg changed line out picc placed persistent wbc h/h noted anemia ss better since new trach Shiley [address] secretions manageable Trach replaced at bedside 925 for malpositioning it was identified he does have a false track as well. Will ensure trach is in correct positioning daily every shift trach not stable removed and intubated 08/25 on ett vent will need trach revision discussed with mother and medical teams trach and picc s/p trach revision 6 f dxlt pulmonary arteries: Evaluation for pulmonary embolus is limited due to breathing motion artifact. No central pulmonary emboli are identified. Aorta: No acute findings. No thoracic aortic aneurysm. Lungs: There are moderately consolidating infiltrates identified in both lower lobes dependently with mild additional patchy infiltrates dependently in both upper lobes. The findings are consistent with bilateral nonspecific pneumonia. Aspiration pneumonia could give this appearance. The infiltrates are only somewhat typical of Covid 19. Confidence is immediate. Pleural space: Unremarkable. No significant effusion. No pneumothorax. Heart: Unremarkable. No cardiomegaly. No significant pericardial effusion. No evidence of RV dysfunction. Bones/joints: No acute fracture. No dislocation. Soft tissues: Unremarkable. Lymph nodes: Unremarkable. No enlarged lymph nodes. Tubes, lines and devices: There is a tracheostomy tube in good position. IMPRESSION: 1. There are moderately consolidating infiltrates identified in both lower lobes dependently with mild additional patchy infiltrates dependently in both upper lobes. The findings are consistent with bilateral nonspecific pneumonia. Aspiration pneumonia could give this appearance. The infiltrates are only somewhat typical of Covid 19. Confidence is immediate. 2. Evaluation for pulmonary embolus is limited due to breathing motion artifact. No central pulmonary emboli are identified. The liver is homogeneous. We cannot identify a normal spleen. There is dense crescentic calcification in the left upper quadrant at the expected location of the spleen. Gallbladder is absent. The pancreas is unremarkable. Adrenals are normal in morphology. There is a small punctate cortical calcification left kidney. No hydronephrosis bilaterally There is a G-tube in place. Gas-filled bowel loops identified throughout the abdomen and pelvis. No discrete transition point or obstruction. Appendix partially visualized. There is some free fluid in the pelvis. There is no free air. There is a mildly prominent lymph nodes noted in the upper to mid retroperitoneum noted of undetermined etiology or significance. Rivera catheter noted in the bladder. The reservoir for the penile prosthesis is identified in the left lower pelvis. There is a right femoral venous catheter in place. Diffuse sclerosis of the bony pelvis and hips noted of undetermined etiology. IMPRESSION: BILATERAL LOWER LOBE PNEUMONIAS. ALSO SOME HAZY INFILTRATES IN THE UPPER LOBES. A NORMAL SPLEEN IS NOT VISUALIZED. THERE IS A DENSE CRESCENTIC CALCIFICATION LEFT UPPER QUADRANT AT THE EXPECTED LOCATION OF THE SPLEEN. 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 PUNCTATE CORTICAL CALCIFICATION LEFT KIDNEY. NO HYDRONEPHROSIS. PROMINENT LYMPH NODES IN THE UPPER TO MID RETROPERITONEUM OF UNDETERMINED ETIOLOGY OR SIGNIFICANCE. G-TUBE, RIVERA CATHETER, RIGHT FEMORAL CATHETER AND PENILE PROSTHESIS NOTED IN PLACE. MILD DIFFUSE SCLEROSIS OF THE BONY PELVIS AND BOTH HIPS OF UNDETERMINED ETIOLOGY. QUESTION HISTORY OF RENAL OSTEODYSTROPHY. There is a large craniectomy defect in the right frontal temporal region. Diffuse age-related volume loss demonstrated. 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 No definite acute infarct seen. There is no hemorrhage, mass effect or shift. Ventricles and cisterns as well as brainstem and posterior fossa appear unremarkable. The sellar region is normal. Sinuses, mastoid air cells and bony calvarium appear intact. IMPRESSION: Large right frontotemporal craniectomy defect. 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 No definite acute intracranial abnormality. (7) Port-A-Cath in place Assessment & Plan: prior removal for infection site okay dressings changed no active infection from wound picc Harman Zhao Sep 01, 2020 11:33
--- NOTE | 2020-09-01 11:34 | NUR ---
NURSE HAND-OFF REPORT: Important Events on Shift: N/A Patient Status: Stable Diet: Vital Pending Orders: N Pending Results/Labs: N Pending MD notification: N Latest Vital Signs: Temperature 98.1 , Pulse 82 , B/P 128 /66 , Respiratory Rate 18 , O2 SAT 100 , Mechanical Ventilator, O2 Flow Rate . Vital Sign Comment: WNL EKG Rhythm: Sinus Rhythm Rhythm change?: N MD Notified?: N -GRACE JIMENEZ Response: Latest Stevens Fall Score: 50 Fall Risk: High Risk Safety Measures: Call light Within Reach, Bed Alarm Zone 1, Side Rails Side Rails x3, Bed position Low and Locked. Fall Precautions: Yellow Socks Yellow Gown Door Sign Patient Fall Education Report given to ARLYN Worrell.
--- NOTE | 2020-09-01 14:24 | NUR ---
CASE MANAGEMENT:REVIEW 09/01/20 SI:SEPSIS (VRE BACTEREMIA OF 08/26/20) TRACH/VENT/GTUBE 98.0 68 14 113/56 100% ON VENT SUPPORT W/40% FIO2 WBC+19.1 H/H-7.8/22.7 NA-149 BUN+30 IS: IV LINEZOLID Q12 IVF@50/HR `IV KEPPRA Q12 IV PROTONIX Q12 IV MORPHINE Q4HRS PRN : [facility] OVER THE WEEKEND ~ PATIENT WAS INTUBATED TO SURGERY TODAY FOR TRACH PLACEMENT
--- NOTE | 2020-09-01 14:45 | General Progress Note ---
Subjective ROS Limited/Unobtainable: No Constitutional: Reports: malaise, weakness HEENT: Reports: no symptoms Cardiovascular: Reports: no symptoms Respiratory: Reports: cough, shortness of breath, sputum Gastrointestinal/Abdominal: Reports: difficulty swallowing Genitourinary: Reports: no symptoms Neurologic/Psychiatric: Reports: pre-existing deficit, seizure Endocrine: Reports: no symptoms Hematologic/Lymphatic: Reports: no symptoms Allergies: Coded Allergies: ADHESIVE TAPE (Verified Allergy, Unknown, 07/20/20) Uncoded Allergies: TAPE (Allergy, Unknown, 08/07/20) All Systems: reviewed and negative except above Subjective no events,. resting. tolerating feeds. no congestion or sob. labs reviewed Objective Last 24 Hour Vital Signs Date Time Temp Pulse Resp B/P (MAP) Pulse Ox O2 Delivery O2 Flow Rate FiO2 09/01/20 12:00 Mechanical Ventilator Mechanical Ventilator 09/01/20 12:00 98.0 68 14 113/56 (75) 100 09/01/20 11:21 82 18 40 09/01/20 10:32 98.1 09/01/20 08:00 Mechanical Ventilator Mechanical Ventilator 09/01/20 08:00 40 09/01/20 08:00 98.2 67 15 128/66 (86) 100 09/01/20 08:00 72 09/01/20 07:19 77 14 40 09/01/20 04:15 91 153/84 (107) 09/01/20 04:00 98.1 70 17 147/84 (105) 100 09/01/20 04:00 Mechanical Ventilator Mechanical Ventilator 09/01/20 04:00 40 09/01/20 03:28 75 09/01/20 03:07 89 20 40 09/01/20 00:00 98.1 77 15 116/61 (79) 100 09/01/20 00:00 Mechanical Ventilator Mechanical Ventilator 09/01/20 00:00 75 08/31/20 23:06 80 15 40 08/31/20 22:19 78 16 126/61 100 08/31/20 21:49 78 16 126/61 100 08/31/20 20:00 Mechanical Ventilator Mechanical Ventilator 08/31/20 20:00 98.2 83 15 126/64 (84) 100 08/31/20 20:00 40 08/31/20 19:43 71 10/1/20 19:00 72 15 40 08/31/20 18:00 71 15 125/54 (77) 100 08/31/20 17:00 70 14 132/66 (88) 100 08/31/20 16:00 98.7 77 14 131/71 (91) 100 08/31/20 16:00 40 08/31/20 16:00 76 08/31/20 16:00 Mechanical Ventilator Mechanical Ventilator 08/31/20 15:59 98.9 08/31/20 15:27 77 14 40 08/31/20 15:00 75 15 131/71 (91) 100 08/31/20 15:00 76 17 135/61 (85) 100 Intake and Output 08/31/20 09/01/20 19:00 07:00 Intake Total 1675 ml 1900 ml Output Total 1520 ml 1800 ml Balance 155 ml 100 ml Free Water 160 ml 40 ml IV Total 675 ml 1020 ml Tube Feeding 840 ml 840 ml Output Urine Total 1370 ml 1800 ml Stool Total 150 ml # Bowel Movements 1 3 Laboratory Tests 09/01/20 04:00: White Blood Count 19.1H, Red Blood Count 2.47L, Hemoglobin 7.8#L, Hematocrit 22.7#L, Mean Corpuscular Volume 92, Mean Corpuscular Hemoglobin 31.8H, Mean Corpuscular Hemoglobin Concent 34.5, Red Cell Distribution Width 15.7H, Platelet Count 264, Mean Platelet Volume 7.9, Neutrophils (%) (Auto) , Lymphocytes (%) (Auto) , Monocytes (%) (Auto) , Eosinophils (%) (Auto) , Basophils (%) (Auto) , Differential Total Cells Counted 100, Neutrophils % (Manual) 65, Lymphocytes % (Manual) 22, Monocytes % (Manual) 8, Eosinophils % (Manual) 4H, Basophils % (Manual) 1, Band Neutrophils 0, Platelet Estimate Adequate, Platelet Morphology Normal, Hypochromasia 3+, Anisocytosis 1+, Sodium Level 149H, Potassium Level 4.0, Chloride Level 117H, Carbon Dioxide Level 20L, Anion Gap 12, Blood Urea Nitrogen 38H, Creatinine 1.1, Estimat Glomerular Filtration Rate > 60, Glucose Level 334#H, Calcium Level 8.6, Total Bilirubin 1.1H, Direct Bilirubin 0.5H, Aspartate Amino Transf (AST/SGOT) 60H, Alanine Aminotransferase (ALT/SGPT) 64, Alkaline Phosphatase 422H, Total Protein 7.2, Albumin 2.4L, Globulin 4.8, Albumin/Globulin Ratio 0.5L Height (Feet): 5 Height (Inches): 8.00 Weight (Pounds): 113 Objective General Appearance: WD/WN, lethargic EENT: normal ENT inspection. trach c/d/i Neck: normal alignment Cardiovascular: normal peripheral pulses, normal rate Respiratory/Chest: chest wall non-tender, lungs clear, normal breath sounds Abdomen: normal bowel sounds, non tender, soft, no organomegaly Edema: no edema noted Arm (L), no edema noted Arm (R) Neurologic: weak/sedated Assessment/Plan Problem List: (1) Pneumonia ICD Codes: J18.9 - Pneumonia, unspecified organism SNOMED: 972847932 Qualifiers: Qualified Codes: J18.9 - Pneumonia, unspecified organism (2) Sickle cell anemia ICD Codes: D57.1 - Sickle-cell disease without crisis SNOMED: 423403101 Qualifiers: Qualified Codes: D57.00 - Hb-SS disease with crisis, unspecified (3) Severe sepsis ICD Codes: A41.9 - Sepsis, unspecified organism; R65.20 - Severe sepsis without septic shock SNOMED: [id number] Status: stable, not improved Assessment/Plan: cont vent support wean as able monitor abg resp care suctioning as needed trach care dvt/stress ulcer prophylaxis ivf picc care transfuse as needed ivf adjusted to d5w monitor labs d/w mother Lalo Ahumada MD Sep 01, 2020 14:45
--- NOTE | 2020-09-01 19:00 | NUR ---
NURSE NOTES: Received report from ARLYN Worrell. pt is awake lying in bed in semi-humphrey's position with mittens on bilateral hands. Pt on vent with appropriate vent settings. Pt with PICC line on Left Upper arm patent and intact. Pt with garcia cath patent and draining yellow urine. Pt is alert x 1 open eyes spontaneously. No signs of respiratory distress noted. No pain noted at this time. Bed in lowest position. Call light within reach. Continue to plan of care.
--- NOTE | 2020-09-01 19:03 | NUR ---
NURSE HAND-OFF REPORT: Important Events on Shift:Patient verbally abusive,uncooperative,refuse examination Patient Status: stable Diet: G tube feeding Pending Orders: none Pending Results/Labs:none Pending MD notification:none Latest Vital Signs: Temperature 97.7 , Pulse 68 , B/P 119 /65 , Respiratory Rate 17 , O2 SAT 100 , Mechanical Ventilator, O2 Flow Rate . Vital Sign Comment: stable EKG Rhythm: Sinus Rhythm Rhythm change?: N MD Notified?: N MD Response: Latest Stevens Fall Score: 50 Fall Risk: High Risk Safety Measures: Call light Within Reach, Bed Alarm Zone 1, Side Rails Side Rails x3, Bed position Low and Locked. Fall Precautions: Yellow Socks Yellow Gown Door Sign Patient Fall Education Report given to .ARLYN Hurtado
[2020-09-01] MEDS: Dyna-Hex 2% Top Sol 2oz TOPIC SCH (20:33)
[2020-09-01] MEDS: Acetaminophen 650mg/20.3ml GT PRN (20:43)
--- NOTE | 2020-09-01 22:16 | General Progress Note ---
Subjective Allergies: Coded Allergies: ADHESIVE TAPE (Verified Allergy, Unknown, 07/20/20) Uncoded Allergies: TAPE (Allergy, Unknown, 08/07/20) Subjective calm and comfortable tolerating feeds Objective Last 24 Hour Vital Signs Date Time Temp Pulse Resp B/P (MAP) Pulse Ox O2 Delivery O2 Flow Rate FiO2 09/01/20 20:00 86 09/01/20 20:00 97.9 80 17 128/74 (92) 100 09/01/20 20:00 Mechanical Ventilator Mechanical Ventilator 09/01/20 20:00 40 09/01/20 16:00 40 09/01/20 16:00 69 09/01/20 16:00 Mechanical Ventilator Mechanical Ventilator 09/01/20 16:00 97.7 68 17 119/65 (83) 100 09/01/20 15:59 74 15 40 09/01/20 12:00 Mechanical Ventilator Mechanical Ventilator 09/01/20 12:00 98.0 68 14 113/56 (75) 100 09/01/20 12:00 40 09/01/20 11:33 77 09/01/20 11:21 82 18 40 09/01/20 10:32 98.1 09/01/20 08:00 Mechanical Ventilator Mechanical Ventilator 09/01/20 08:00 40 09/01/20 08:00 98.2 67 15 128/66 (86) 100 09/01/20 08:00 72 09/01/20 07:19 77 14 40 09/01/20 04:15 91 153/84 (107) 09/01/20 04:00 98.1 70 17 147/84 (105) 100 09/01/20 04:00 Mechanical Ventilator Mechanical Ventilator 09/01/20 04:00 40 09/01/20 03:28 75 09/01/20 03:07 89 20 40 09/01/20 00:00 98.1 77 15 116/61 (79) 100 09/01/20 00:00 Mechanical Ventilator Mechanical Ventilator 09/01/20 00:00 75 08/31/20 23:06 80 15 40 08/31/20 22:19 78 16 126/61 100 Intake and Output 08/31/20 09/01/20 19:00 07:00 Intake Total 1675 ml 1900 ml Output Total 1520 ml 1800 ml Balance 155 ml 100 ml Free Water 160 ml 40 ml IV Total 675 ml 1020 ml Tube Feeding 840 ml 840 ml Output Urine Total 1370 ml 1800 ml Stool Total 150 ml # Bowel Movements 1 3 Laboratory Tests 09/01/20 04:00: White Blood Count 19.1H, Red Blood Count 2.47L, Hemoglobin 7.8#L, Hematocrit 22.7#L, Mean Corpuscular Volume 92, Mean Corpuscular Hemoglobin 31.8H, Mean Corpuscular Hemoglobin Concent 34.5, Red Cell Distribution Width 15.7H, Platelet Count 264, Mean Platelet Volume 7.9, Neutrophils (%) (Auto) , Lymphocytes (%) (Auto) , Monocytes (%) (Auto) , Eosinophils (%) (Auto) , Basophils (%) (Auto) , Differential Total Cells Counted 100, Neutrophils % (Manual) 65, Lymphocytes % (Manual) 22, Monocytes % (Manual) 8, Eosinophils % (Manual) 4H, Basophils % (Manual) 1, Band Neutrophils 0, Platelet Estimate Adequate, Platelet Morphology Normal, Hypochromasia 3+, Anisocytosis 1+, Sodium Level 149H, Potassium Level 4.0, Chloride Level 117H, Carbon Dioxide Level 20L, Anion Gap 12, Blood Urea Nitrogen 38H, Creatinine 1.1, Estimat Glomerular Filtration Rate > 60, Glucose Level 334#H, Calcium Level 8.6, Total Bilirubin 1.1H, Direct Bilirubin 0.5H, Aspartate Amino Transf (AST/SGOT) 60H, Alanine Aminotransferase (ALT/SGPT) 64, Alkaline Phosphatase 422H, Total Protein 7.2, Albumin 2.4L, Globulin 4.8, Albumin/Globulin Ratio 0.5L Height (Feet): 5 Height (Inches): 8.00 Weight (Pounds): 113 Objective Thin AA Man HEENT s/p craniotomy, (+) ETT neck (+) dressing Coarse BS, ronchi, tachypnic RR/tachy abd soft (+) GT no edema Assessment/Plan Status: stable, not improved Assessment/Plan: Assessment - respiratory distress - intubated - recent occluded GT - replaced - abnormal LFT - 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
[2020-09-01] MEDS ORDERED: D5NS 1000ml IV ONE (22:34)
[2020-09-01] MEDS ORDERED: Tubing Blood Filter IV ONE (22:34)
[2020-09-01] MEDS ORDERED: Tubing IV Secondary IV ONE (22:34)
[2020-09-02] VITALS: BP 124/67
[2020-09-02] MEDS: Cefepime HCl 2 GM in D5W 55 ML IVPB SCH ×2 (03:11→15:25)
--- NOTE | 2020-09-02 03:18 | NUR ---
NURSE NOTES: Reposition patient q2hrs. Change patient linen and sponge done. No pain noted at this time,Pt is resistive to care and combative. Provided calm environment. pads on for siezure precaution. Bed in lowest position. Call light within reach. SCD attached to pt.
[2020-09-02 04:00] VITALS: BP 117/70
--- NOTE | 2020-09-02 04:02 | NUR ---
NURSE NOTES: Noticed minimal bleeding on trach site, informed RT. Changed dressing.
[2020-09-02 05:36] LABS: ANION GAP 9 mmol/L (5-15); BLOOD UREA NITROGEN 39 mg/dL (7-18); CALCIUM 8.4 MG/DL (8.5-10.1); CARBON DIOXIDE 20 MMOL/L (21-32); CHLORIDE 117 MMOL/L (98-107); CREATININE 0.9 MG/DL (0.55-1.30); POTASSIUM 3.6 MMOL/L (3.5-5.1); SODIUM 146 MMOL/L (136-145)
--- NOTE | 2020-09-02 07:00 | NUR ---
NURSE HAND-OFF REPORT: Important Events on Shift: Na- trending down, Hand-mittens on, PICC line care. On d5w@75cc/hr. Patient Status: Stable Diet: Vital AF @70cc/hr Pending Orders: None Pending Results/Labs: None Pending MD notification: None Latest Vital Signs: Temperature 98.9 , Pulse 70 , B/P 117 /70 , Respiratory Rate 17 , O2 SAT 100 , Mechanical Ventilator, O2 Flow Rate . Vital Sign Comment: WNL EKG Rhythm: Sinus Rhythm Rhythm change?: N Notified?: James DAVIES MD Response: Latest Stevens Fall Score: 70 Fall Risk: High Risk Safety Measures: Call light Within Reach, Bed Alarm Zone 1, Side Rails Side Rails x3, Bed position Low and Locked. Fall Precautions: Yellow Socks Yellow Gown Door Sign Patient Fall Education Report given to [ARLYN Jaramillo].
--- NOTE | 2020-09-02 07:40 | General Progress Note ---
Subjective ROS Limited/Unobtainable: No Allergies: Coded Allergies: ADHESIVE TAPE (Verified Allergy, Unknown, 07/20/20) Uncoded Allergies: TAPE (Allergy, Unknown, 08/07/20) Objective Last 24 Hour Vital Signs Date Time Temp Pulse Resp B/P (MAP) Pulse Ox O2 Delivery O2 Flow Rate FiO2 09/02/20 04:02 Mechanical Ventilator Mechanical Ventilator 09/02/20 04:00 70 09/02/20 04:00 98.9 77 17 117/70 (86) 100 09/02/20 04:00 40 09/02/20 03:20 92 23 40 09/02/20 00:00 97.9 79 18 124/67 (86) 100 09/02/20 00:00 83 09/02/20 00:00 Mechanical Ventilator Mechanical Ventilator 09/01/20 23:10 88 15 40 09/01/20 20:00 86 09/01/20 20:00 97.9 80 17 128/74 (92) 100 09/01/20 20:00 Mechanical Ventilator Mechanical Ventilator 09/01/20 20:00 40 09/01/20 19:30 84 19 40 09/01/20 16:00 40 09/01/20 16:00 69 09/01/20 16:00 Mechanical Ventilator Mechanical Ventilator 09/01/20 16:00 97.7 68 17 119/65 (83) 100 09/01/20 15:59 74 15 40 09/01/20 12:00 Mechanical Ventilator Mechanical Ventilator 09/01/20 12:00 98.0 68 14 113/56 (75) 100 09/01/20 12:00 40 09/01/20 11:33 77 09/01/20 11:21 82 18 40 09/01/20 10:32 98.1 09/01/20 08:00 Mechanical Ventilator Mechanical Ventilator 09/01/20 08:00 40 09/01/20 08:00 98.2 67 15 128/66 (86) 100 09/01/20 08:00 72 Intake and Output 09/01/20 09/02/20 19:00 07:00 Intake Total 1475 ml 2530 ml Output Total 1425 ml 3200 ml Balance 50 ml -670 ml Free Water 50 ml 50 ml IV Total 585 ml 1710 ml Tube Feeding 840 ml 770 ml Output Urine Total 1400 ml 3200 ml Stool Total 25 ml # Bowel Movements 3 100 Laboratory Tests 10/3/20 03:30: Sodium Level 146H, Potassium Level 3.6, Chloride Level 117H, Carbon Dioxide Level 20L, Anion Gap 9, Blood Urea Nitrogen 39H, Creatinine 0.9, Estimat Glomerular Filtration Rate > 60, Glucose Level 83#, Calcium Level 8.4L Height (Feet): 5 Height (Inches): 8.00 Weight (Pounds): 113 General Appearance: no apparent distress EENT: normal ENT inspection Neck: supple Cardiovascular: normal rate Respiratory/Chest: decreased breath sounds Abdomen: hypoactive bowel sounds Extremities: non-tender Assessment/Plan Status: stable, not improved Assessment/Plan: Assessment - respiratory distress - intubated - recent occluded GT - replaced - abnormal LFT - 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
[2020-09-02 08:00] VITALS: BP 110/66
--- NOTE | 2020-09-02 08:14 | NUR ---
NURSE NOTES: Pt awake/alert, tries to hit with safety mittens. Pt is mechanically ventilated. Vital signs stable with SR @ 64 on monitor. IV access JOLLY PICC with D5 @ 75 ml/hr, other lumen running NS @ TKO. G-tube, 0 residual with Vital AF set for 70 ml/hr, 60 ml free water flush given. Bilateral soft mittens in place to prevent patient from pulling out trach. Overton cath in place, patent, draining clear yellow urine into collection bag at foot of bed. Flexiseal rectal tube in place diverting liquid stool into collection bag at foot of bed. P200 low air loss mattress on bed and running. Bed left in low position, side rails up x 3 and call light left near pt's hand.
[2020-09-02] MEDS: FERRIPROX GT SCH ×3 (08:59→17:54)
[2020-09-02] MEDS: Pantoprazole Inj IVP SCH ×2 (08:59→22:00)
[2020-09-02] MEDS: DEFERASIROX 360 MG GT SCH (08:59)
[2020-09-02] MEDS: levETIRAcetam 1,000mg/NS100ml 100 ML IVPB SCH ×2 (09:00→22:00)
[2020-09-02] MEDS: Linezolid 600mg/300ml (Pre-Mix) IVPB SCH ×2 (09:06→22:00)
[2020-09-02] MEDS: Ursodiol 300mg cap ORAL SCH ×2 (09:07→17:54)
--- NOTE | 2020-09-02 09:08 | Surgery Progress Note ---
Surgery Progress Note Subjective Procedure Performed Tracheostomy Symptoms: improved, tolerating diet, voiding well, passing flatus, BM Objective Last 24 Hour Vital Signs Date Time Temp Pulse Resp B/P (MAP) Pulse Ox O2 Delivery O2 Flow Rate FiO2 09/02/20 08:16 72 14 40 09/02/20 08:15 72 14 40 09/02/20 04:02 Mechanical Ventilator Mechanical Ventilator 09/02/20 04:00 70 09/02/20 04:00 98.9 77 17 117/70 (86) 100 09/02/20 04:00 40 09/02/20 03:20 92 23 40 09/02/20 00:00 97.9 79 18 124/67 (86) 100 09/02/20 00:00 83 09/02/20 00:00 Mechanical Ventilator Mechanical Ventilator 09/01/20 23:10 88 15 40 09/01/20 20:00 86 09/01/20 20:00 97.9 80 17 128/74 (92) 100 09/01/20 20:00 Mechanical Ventilator Mechanical Ventilator 09/01/20 20:00 40 09/01/20 19:30 84 19 40 09/01/20 16:00 40 09/01/20 16:00 69 09/01/20 16:00 Mechanical Ventilator Mechanical Ventilator 09/01/20 16:00 97.7 68 17 119/65 (83) 100 09/01/20 15:59 74 15 40 09/01/20 12:00 Mechanical Ventilator Mechanical Ventilator 09/01/20 12:00 98.0 68 14 113/56 (75) 100 09/01/20 12:00 40 09/01/20 11:33 77 09/01/20 11:21 82 18 40 09/01/20 10:32 98.1 I&O Intake and Output 09/01/20 09/02/20 19:00 07:00 Intake Total 1475 ml 2530 ml Output Total 1425 ml 3200 ml Balance 50 ml -670 ml Free Water 50 ml 50 ml IV Total 585 ml 1710 ml Tube Feeding 840 ml 770 ml Output Urine Total 1400 ml 3200 ml Stool Total 25 ml # Bowel Movements 3 100 Dressing: dry Wound: clean Cardiovascular: RSR Respiratory: clear Abdomen: soft, non-tender, present bowel sounds Extremities: no edema, no tenderness, no cyanosis Laboratory Tests Test 09/02/20 03:30 Sodium Level 146 MMOL/L (136-145) H Potassium Level 3.6 MMOL/L (3.5-5.1) Chloride Level 117 MMOL/L (98-107) H Carbon Dioxide Level 20 MMOL/L (21-32) L Anion Gap 9 mmol/L (5-15) Blood Urea Nitrogen 39 mg/dL (7-18) H Creatinine 0.9 MG/DL (0.55-1.30) Estimat Glomerular Filtration Rate > 60 mL/min (>60) Glucose Level 83 MG/DL (74-106) # Calcium Level 8.4 MG/DL (8.5-10.1) L Plan Problems: (1) Pneumonia (2) Sickle cell anemia (3) Tachycardia (4) Severe sepsis (5) Sickle cell crisis (6) Sepsis Assessment & Plan: 35-year-old male sickle cell multiple comorbidities history of craniotomy trach feeding tube prior port infected removed see prior admission and consult and operative notes. Currently presents with significant leukocytosis fevers hypotension in intensive care unit wound site evaluated unlikely etiology. Trach evaluated may consider changing. LFTs noted elevated. Ultrasound ordered pending results trend labs continue IV antibiotics appreciate infectious disease input will follow with recommendations thank you for let me participate in patient's care KUB and US noted labs reviewed transfuse prbc prn trach change peg changed line out picc placed persistent wbc h/h noted anemia ss better since new trach Shiley [address] secretions manageable Trach replaced at bedside 925 for malpositioning it was identified he does have a false track as well. Will ensure trach is in correct positioning daily every shift trach not stable removed and intubated 08/25 on ett vent will need trach revision discussed with mother and medical teams trach and picc s/p trach revision 6 f dxlt pulmonary arteries: Evaluation for pulmonary embolus is limited due to breathing motion artifact. No central pulmonary emboli are identified. Aorta: No acute findings. No thoracic aortic aneurysm. Lungs: There are moderately consolidating infiltrates identified in both lower lobes dependently with mild additional patchy infiltrates dependently in both upper lobes. The findings are consistent with bilateral nonspecific pneumonia. Aspiration pneumonia could give this appearance. The infiltrates are only somewhat typical of Covid 19. Confidence is immediate. Pleural space: Unremarkable. No significant effusion. No pneumothorax. Heart: Unremarkable. No cardiomegaly. No significant pericardial effusion. No evidence of RV dysfunction. Bones/joints: No acute fracture. No dislocation. Soft tissues: Unremarkable. Lymph nodes: Unremarkable. No enlarged lymph nodes. Tubes, lines and devices: There is a tracheostomy tube in good position. IMPRESSION: 1. There are moderately consolidating infiltrates identified in both lower lobes dependently with mild additional patchy infiltrates dependently in both upper lobes. The findings are consistent with bilateral nonspecific pneumonia. Aspiration pneumonia could give this appearance. The infiltrates are only somewhat typical of Covid 19. Confidence is immediate. 2. Evaluation for pulmonary embolus is limited due to breathing motion artifact. No central pulmonary emboli are identified. The liver is homogeneous. We cannot identify a normal spleen. There is dense crescentic calcification in the left upper quadrant at the expected location of the spleen. Gallbladder is absent. The pancreas is unremarkable. Adrenals are normal in morphology. There is a small punctate cortical calcification left kidney. No hydronephrosis bilaterally There is a G-tube in place. Gas-filled bowel loops identified throughout the abdomen and pelvis. No discrete transition point or obstruction. Appendix partially visualized. There is some free fluid in the pelvis. There is no free air. There is a mildly prominent lymph nodes noted in the upper to mid retroperitoneum noted of undetermined etiology or significance. Rivera catheter noted in the bladder. The reservoir for the penile prosthesis is identified in the left lower pelvis. There is a right femoral venous catheter in place. Diffuse sclerosis of the bony pelvis and hips noted of undetermined etiology. IMPRESSION: BILATERAL LOWER LOBE PNEUMONIAS. ALSO SOME HAZY INFILTRATES IN THE UPPER LOBES. A NORMAL SPLEEN IS NOT VISUALIZED. THERE IS A DENSE CRESCENTIC CALCIFICATION LEFT UPPER QUADRANT AT THE EXPECTED LOCATION OF THE SPLEEN. 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 PUNCTATE CORTICAL CALCIFICATION LEFT KIDNEY. NO HYDRONEPHROSIS. PROMINENT LYMPH NODES IN THE UPPER TO MID RETROPERITONEUM OF UNDETERMINED ETIOLOGY OR SIGNIFICANCE. G-TUBE, RIVERA CATHETER, RIGHT FEMORAL CATHETER AND PENILE PROSTHESIS NOTED IN PLACE. MILD DIFFUSE SCLEROSIS OF THE BONY PELVIS AND BOTH HIPS OF UNDETERMINED ETIOLOGY. QUESTION HISTORY OF RENAL OSTEODYSTROPHY. There is a large craniectomy defect in the right frontal temporal region. Diffuse age-related volume loss demonstrated. 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 No definite acute infarct seen. There is no hemorrhage, mass effect or shift. Ventricles and cisterns as well as brainstem and posterior fossa appear unremarkable. The sellar region is normal. Sinuses, mastoid air cells and bony calvarium appear intact. IMPRESSION: Large right frontotemporal craniectomy defect. 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 No definite acute intracranial abnormality. (7) Port-A-Cath in place Assessment & Plan: prior removal for infection site okay dressings changed no active infection from wound picc Harman Zhao Sep 02, 2020 09:08
--- NOTE | 2020-09-02 10:09 | Pulmonology Progress Note ---
Subjective ROS Limited/Unobtainable: No Constitutional: Reports: other - transferred to ICU Musculoskeletal: Reports: pain Allergies: Coded Allergies: ADHESIVE TAPE (Verified Allergy, Unknown, 07/20/20) Uncoded Allergies: TAPE (Allergy, Unknown, 08/07/20) All Systems: reviewed and negative except above Objective Last 24 Hour Vital Signs Date Time Temp Pulse Resp B/P (MAP) Pulse Ox O2 Delivery O2 Flow Rate FiO2 09/02/20 08:16 72 14 40 09/02/20 08:15 72 14 40 09/02/20 08:00 Mechanical Ventilator Mechanical Ventilator 09/02/20 08:00 98.2 72 15 110/66 (81) 100 09/02/20 04:02 Mechanical Ventilator Mechanical Ventilator 09/02/20 04:00 70 09/02/20 04:00 98.9 77 17 117/70 (86) 100 09/02/20 04:00 40 09/02/20 03:20 92 23 40 09/02/20 00:00 97.9 79 18 124/67 (86) 100 09/02/20 00:00 83 09/02/20 00:00 Mechanical Ventilator Mechanical Ventilator 09/01/20 23:10 88 15 40 09/01/20 20:00 86 09/01/20 20:00 97.9 80 17 128/74 (92) 100 09/01/20 20:00 Mechanical Ventilator Mechanical Ventilator 09/01/20 20:00 40 09/01/20 19:30 84 19 40 09/01/20 16:00 40 09/01/20 16:00 69 09/01/20 16:00 Mechanical Ventilator Mechanical Ventilator 09/01/20 16:00 97.7 68 17 119/65 (83) 100 09/01/20 15:59 74 15 40 09/01/20 12:00 Mechanical Ventilator Mechanical Ventilator 09/01/20 12:00 98.0 68 14 113/56 (75) 100 09/01/20 12:00 40 09/01/20 11:33 77 09/01/20 11:21 82 18 40 09/01/20 10:32 98.1 Intake and Output 09/01/20 09/02/20 19:00 07:00 Intake Total 1475 ml 2530 ml Output Total 1425 ml 3200 ml Balance 50 ml -670 ml Free Water 50 ml 50 ml IV Total 585 ml 1710 ml Tube Feeding 840 ml 770 ml Output Urine Total 1400 ml 3200 ml Stool Total 25 ml # Bowel Movements 3 100 Laboratory Tests 09/02/20 03:30: Sodium Level 146H, Potassium Level 3.6, Chloride Level 117H, Carbon Dioxide Level 20L, Anion Gap 9, Blood Urea Nitrogen 39H, Creatinine 0.9, Estimat Glomerular Filtration Rate > 60, Glucose Level 83#, Calcium Level 8.4L Current Medications Medications (Trade) Dose Ordered Sig/Piedad Route PRN Reason Start Time Stop Time Status Last Admin Dose Admin Acetaminophen (Tylenol) 650 mg Q4H PRN GT Mild Pain (Pain Scale 1-3) 08/24/20 13:00 09/23/20 12:59 08/28/20 13:40 Acetaminophen (Tylenol) 650 mg Q6H PRN GT Temp >100.5 08/10/20 20:20 09/09/20 20:19 09/01/20 20:43 Cefepime HCl 2 gm/ Dextrose 55 ml @ 110 mls/hr Q12H IVPB 09/01/20 15:00 09/08/20 14:59 09/02/20 03:11 Chlorhexidine Gluconate (Christy-Hex 2%) 1 applic DAILY@2000 TOPIC 08/14/20 20:00 11/12/20 19:59 09/01/20 20:33 Dextrose 1,000 ml @ 75 mls/hr [id number] IV 09/01/20 14:45 10/01/20 14:44 09/02/20 03:12 Folic Acid (Folate) 1 mg DAILY GT 08/11/20 09:00 09/07/20 08:59 09/02/20 08:57 Levetiracetam 100 ml @ 400 mls/hr Q12HR IVPB 08/14/20 10:00 11/12/20 09:59 09/02/20 09:00 Linezolid 300 ml @ 300 mls/hr Q12HR IVPB 08/29/20 11:00 09/05/20 10:59 09/02/20 09:06 Metoclopramide HCl (Reglan) 10 mg Q8H PRN IVP Nausea & Vomiting 08/26/20 11:15 09/25/20 11:14 08/27/20 20:46 Morphine Sulfate (Morphine Sulfate) 2 mg Q4H PRN IVP Severe Pain (Pain Scale 7-10) 08/28/20 15:00 09/04/20 14:59 09/01/20 10:02 Multivitamins (Multivitamins) 1 tab DAILY GT 08/11/20 09:00 09/07/20 08:59 09/02/20 08:57 Pantoprazole (Protonix) 40 mg EVERY 12 HOURS IVP 08/13/20 22:15 09/12/20 22:14 09/02/20 08:59 Patient Own Medication (Patient's Own Med) 2 ea TID GT 08/30/20 09:00 09/29/20 08:59 09/02/20 08:59 Patient Own Medication (Patient's Own Med) 3 ea DAILY GT 08/30/20 09:00 09/29/20 08:59 09/02/20 08:59 Ursodiol (Actigall) 300 mg TWICE A DAY ORAL 09/01/20 09:00 11/30/20 08:59 09/02/20 09:07 Assessment/Plan Assessment/Plan Pulmonary CCM Progress Note 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 Port-A-Cath Status post removal of implanted right chest wall Port-A-Cath Sickle cell crisis Sickle cell anemia Chronic respiratory failure, ventilator dependent, with tracheostomy status Transaminitis Seizure disorder acute pneumonia leukocytosis recurrent sepsis Plan care noted d/w surgery IV antibiotics per ID respiratory care as is Ventilatory support- volume ventilation SNF meds supportive care suction no wean planned monitor wbc per ID oxygen therapy and titrate prognosis guarded medications/laboratory data/nursing notes reviewed in detail note reviewed and edited care discussed with RN and RT Subjective Interval Events: stable overnight care noted labs still not improved ROS Limited/Unobtainable: Yes Condition: stable Objective Vital Signs Noted Objective: WDWN NAD reduced breath sounds bilaterally without rhonchi or wheeze [id number] without MRG NABS nontender GT no CCE reduced LOC Benson Holden MD Sep 02, 2020 10:09
[2020-09-02 12:00] VITALS: BP 113/69
--- NOTE | 2020-09-02 13:16 | General Progress Note ---
Subjective ROS Limited/Unobtainable: Yes Constitutional: Reports: malaise, weakness HEENT: Reports: no symptoms Cardiovascular: Reports: no symptoms Respiratory: Reports: cough, sputum Gastrointestinal/Abdominal: Reports: difficulty swallowing Genitourinary: Reports: no symptoms Neurologic/Psychiatric: Reports: pre-existing deficit, seizure Endocrine: Reports: no symptoms Hematologic/Lymphatic: Reports: anemia Allergies: Coded Allergies: ADHESIVE TAPE (Verified Allergy, Unknown, 07/20/20) Uncoded Allergies: TAPE (Allergy, Unknown, 08/07/20) All Systems: reviewed and negative except above Subjective no events,. resting. tolerating feeds. no congestion or sob. labs reviewed Objective Last 24 Hour Vital Signs Date Time Temp Pulse Resp B/P (MAP) Pulse Ox O2 Delivery O2 Flow Rate FiO2 09/02/20 12:00 40 09/02/20 12:00 98.2 66 16 113/69 (84) 100 09/02/20 12:00 Mechanical Ventilator Mechanical Ventilator 09/02/20 12:00 66 09/02/20 11:15 65 17 40 09/02/20 08:16 72 14 40 09/02/20 08:15 72 14 40 09/02/20 08:00 Mechanical Ventilator Mechanical Ventilator 09/02/20 08:00 90 09/02/20 08:00 40 09/02/20 08:00 98.2 72 15 110/66 (81) 100 09/02/20 04:02 Mechanical Ventilator Mechanical Ventilator 09/02/20 04:00 70 09/02/20 04:00 98.9 77 17 117/70 (86) 100 09/02/20 04:00 40 09/02/20 03:20 92 23 40 09/02/20 00:00 97.9 79 18 124/67 (86) 100 09/02/20 00:00 83 09/02/20 00:00 Mechanical Ventilator Mechanical Ventilator 09/01/20 23:10 88 15 40 09/01/20 20:00 86 09/01/20 20:00 97.9 80 17 128/74 (92) 100 09/01/20 20:00 Mechanical Ventilator Mechanical Ventilator 09/01/20 20:00 40 09/01/20 19:30 84 19 40 09/01/20 16:00 40 09/01/20 16:00 69 09/01/20 16:00 Mechanical Ventilator Mechanical Ventilator 09/01/20 16:00 97.7 68 17 119/65 (83) 100 09/01/20 15:59 74 15 40 Intake and Output 09/01/20 09/02/20 19:00 07:00 Intake Total 1475 ml 2530 ml Output Total 1425 ml 3200 ml Balance 50 ml -670 ml Free Water 50 ml 50 ml IV Total 585 ml 1710 ml Tube Feeding 840 ml 770 ml Output Urine Total 1400 ml 3200 ml Stool Total 25 ml # Bowel Movements 3 100 Laboratory Tests 09/02/20 03:30: Sodium Level 146H, Potassium Level 3.6, Chloride Level 117H, Carbon Dioxide Level 20L, Anion Gap 9, Blood Urea Nitrogen 39H, Creatinine 0.9, Estimat G lomerular Filtration Rate > 60, Glucose Level 83#, Calcium Level 8.4L Height (Feet): 5 Height (Inches): 8.00 Weight (Pounds): 113 Objective General Appearance: WD/WN, lethargic EENT: normal ENT inspection. trach c/d/i Neck: normal alignment Cardiovascular: normal peripheral pulses, normal rate Respiratory/Chest: chest wall non-tender, lungs clear, normal breath sounds Abdomen: normal bowel sounds, non tender, soft, no organomegaly Edema: no edema noted Arm (L), no edema noted Arm (R) Neurologic: weak/sedated Assessment/Plan Problem List: (1) Pneumonia ICD Codes: J18.9 - Pneumonia, unspecified organism SNOMED: 982419211 Qualifiers: Qualified Codes: J18.9 - Pneumonia, unspecified organism (2) Sickle cell anemia ICD Codes: D57.1 - Sickle-cell disease without crisis SNOMED: 552631624 Qualifiers: Qualified Codes: D57.00 - Hb-SS disease with crisis, unspecified (3) Severe sepsis ICD Codes: A41.9 - Sepsis, unspecified organism; R65.20 - Severe sepsis without septic shock SNOMED: 09979584 Status: stable, not improved Assessment/Plan: cont vent support wean as able monitor abg resp care suctioning as needed trach care dvt/stress ulcer prophylaxis ivf picc care transfuse as needed ivf adjusted to d5w monitor labs d/w mother Lalo Ahumada MD Sep 02, 2020 13:16
[2020-09-02 16:00] VITALS: BP 128/68
--- NOTE | 2020-09-02 19:44 | NUR ---
NURSE NOTES: Pt sleeping, awakens to soft voice. Pt is mechanically ventilated. Vital signs stable with SR @ 73 on monitor. IV access JOLLY PICC with both running NS @ TKO. G-tube, 0 residual with Vital AF set for 70 ml/hr, 60 ml free water flush given. Bilateral soft mittens in place to prevent patient from pulling out trach. Overton cath in place, patent, draining clear yellow urine into collection bag at foot of bed. Flexiseal rectal tube in place diverting liquid stool into collection bag at foot of bed. P200 low air loss mattress on bed and running. SCDs in place and running. Bed left in low position, side rails up x 3 and call light left near pt's hand.
[2020-09-02 20:00] VITALS: BP 122/72
[2020-09-02] MEDS: Dyna-Hex 2% Top Sol 2oz TOPIC SCH (20:00)
--- NOTE | 2020-09-02 21:00 | NUR ---
NURSE NOTES: pt report received from CIARAN STODDARD. pt remains stable. pt is alert and oriented times 2, able to respond yes or no to simple questions. no acute neuro abnormalities noted. pt is is on monitoring engineer showing NSR, no acute cardiac distress noted. pt is trach vented sating 99% O2, no acute resp distress noted. pt bed low, locked, armed, call light within reach, bed rails up times 3. will follow plan of care.
--- NOTE | 2020-09-02 22:01 | NUR ---
NURSE NOTES: Linezolid IV to be given after Levetiracetam IV.
[2020-09-03] VITALS (7 sets, daily range): BP systolic 110–123; BP diastolic 41–79
[2020-09-03] MEDS: Cefepime HCl 2 GM in D5W 55 ML IVPB SCH (03:34)
--- NOTE | 2020-09-03 04:12 | NUR ---
NURSE NOTES: pts lab/ blood work drawn. handed to apparel pattern maker Deion.
--- NOTE | 2020-09-03 05:10 | NUR ---
NURSE NOTES: pts PICC line dressing has been changed.
[2020-09-03 06:03] LABS: HEMATOCRIT 24.5 % (42.0-52.0); HEMOGLOBIN 8.4 G/DL (14.2-18.0); MEAN CORPUSCULAR VOLUME 93 FL (80-99); PLATELET COUNT 265 K/UL (150-450); RED BLOOD COUNT 2.64 M/UL (4.70-6.10); RED CELL DISTRIBUTION WIDTH 15.3 % (11.6-14.8); WHITE BLOOD COUNT 18.6 K/UL (4.8-10.8)
[2020-09-03 06:33] LABS: ALANINE AMINOTRANSFERASE 52 U/L (12-78); ALBUMIN 2.6 G/DL (3.4-5.0); ALBUMIN/GLOBULIN RATIO 0.5 (1.0-2.7); ALKALINE PHOSPHATASE 373 U/L (46-116); ANION GAP 9 mmol/L (5-15); ASPARTATE AMINO TRANSFERASE 41 U/L (15-37); BLOOD UREA NITROGEN 44 mg/dL (7-18); CALCIUM 9.2 MG/DL (8.5-10.1); CARBON DIOXIDE 20 MMOL/L (21-32); CHLORIDE 109 MMOL/L (98-107); POTASSIUM 3.9 MMOL/L (3.5-5.1); SODIUM 138 MMOL/L (136-145)
--- NOTE | 2020-09-03 07:10 | NUR ---
NURSE HAND-OFF REPORT: Important Events on Shift:[NA] Patient Status: [STABLE] Diet: [TUBE FEEDING PER DOCTOR ORDER] Pending Orders: [NA] Pending Results/Labs:[NA] Pending MD notification:[NA] Latest Vital Signs: Temperature 97.3 , Pulse 69 , B/P 110 /75 , Respiratory Rate 19 , O2 SAT 99 , Mechanical Ventilator, O2 Flow Rate . Vital Sign Comment: [STABLE] EKG Rhythm: Sinus Rhythm Rhythm change?: N MD Notified?: aJmes DAVIES MD Response: Latest Stevens Fall Score: 35 Fall Risk: Medium Risk Safety Measures: Call light Within Reach, Bed Alarm Zone 1, Side Rails Side Rails x3, Bed position Low and Locked. Fall Precautions: Yellow Socks Yellow Gown Door Sign Patient Fall Education Report given to [CIARAN RN].
--- NOTE | 2020-09-03 07:41 | NUR ---
NURSE NOTES: Pt sleeping, awakens to soft voice. Pt is mechanically ventilated. Vital signs stable with SR @ 82 on monitor. IV access JOLLY PICC, new dressing in place, with both running NS @ TKO. G-tube, 5 ml residual, with Vital AF set for 70 ml/hr, 60 ml free water flush given. Bilateral soft mittens in place to prevent patient from pulling out trach. Overton cath in place, patent, draining clear yellow urine into collection bag at foot of bed. Flexiseal rectal tube in place diverting liquid stool into collection bag at foot of bed. P200 low air loss mattress on bed and running. SCDs in place and running. Bed left in low position, side rails up x 3 and call light left near pt's hand.
[2020-09-03] MEDS: Linezolid 600mg/300ml (Pre-Mix) IVPB SCH ×2 (09:00→20:19)
[2020-09-03] MEDS: Ursodiol 300mg cap ORAL SCH ×2 (09:00→18:22)
--- NOTE | 2020-09-03 09:28 | General Progress Note ---
Subjective ROS Limited/Unobtainable: No Allergies: Coded Allergies: ADHESIVE TAPE (Verified Allergy, Unknown, 07/20/20) Uncoded Allergies: TAPE (Allergy, Unknown, 08/07/20) Objective Last 24 Hour Vital Signs Date Time Temp Pulse Resp B/P (MAP) Pulse Ox O2 Delivery O2 Flow Rate FiO2 09/03/20 08:00 57 09/03/20 08:00 97.8 60 18 116/71 (86) 97 09/03/20 07:38 40 09/03/20 07:35 Mechanical Ventilator Mechanical Ventilator 09/03/20 07:27 78 13 40 09/03/20 04:00 40 09/03/20 04:00 63 09/03/20 04:00 Mechanical Ventilator Mechanical Ventilator 09/03/20 04:00 97.3 69 19 110/75 (87) 99 09/03/20 02:43 81 15 40 09/03/20 00:00 70 09/03/20 00:00 Mechanical Ventilator Mechanical Ventilator 09/03/20 00:00 97.5 81 18 114/79 (91) 99 09/03/20 00:00 40 09/02/20 22:56 78 16 40 09/02/20 20:05 40 09/02/20 20:05 82 09/02/20 20:02 Mechanical Ventilator Mechanical Ventilator 09/02/20 20:00 97.9 79 18 122/72 (89) 99 09/02/20 19:08 79 15 40 09/02/20 16:00 98.2 93 20 128/68 (88) 100 09/02/20 16:00 81 09/02/20 16:00 40 09/02/20 15:36 Mechanical Ventilator Mechanical Ventilator 09/02/20 15:18 76 17 40 09/02/20 12:00 40 09/02/20 12:00 98.2 66 16 113/69 (84) 100 09/02/20 12:00 Mechanical Ventilator Mechanical Ventilator 09/02/20 12:00 66 09/02/20 11:15 65 17 40 Intake and Output 09/02/20 09/03/20 19:00 07:00 Intake Total 1080 ml 1225 ml Output Total 2000 ml 1850 ml Balance -920 ml -625 ml Free Water 240 ml IV Total 455 ml Tube Feeding 840 ml 770 ml Output Urine Total 1800 ml 1800 ml Stool Total 200 ml 50 ml Laboratory Tests 09/03/20 05:00: White Blood Count 18.6H, Red Blood Count 2.64L, Hemoglobin 8.4L, Hematocrit 24.5L, Mean Corpuscular Volume 93, Mean Corpuscular Hemoglobin 31.7H, Mean Corpuscular Hemoglobin Concent 34.1, Red Cell Distribution Width 15.3H, Platelet Count 265, Mean Platelet Volume 8.0, Neutrophils (%) (Auto) , Lymphocytes (%) (Auto) , Monocytes (%) (Auto) , Eosinophils (%) (Auto) , Basophils (%) (Auto) , Neutrophils % (Manual) [Pending], Lymphocytes % (Manual) [Pending], Platelet Estimate [Pending], Platelet Morphology [Pending], Sodium Level 138, Potassium Level 3.9, Chloride Level 109H, Carbon Dioxide Level 20L, Anion Gap 9, Blood Urea Nitrogen 44H, Creatinine 1.0, Estimat Glomerular Filtration Rate > 60, Glucose Level 99, Calcium Level 9.2, Total Bilirubin 1.0, Aspartate Amino Transf (AST/SGOT) 41H, Alanine Aminotransferase (ALT/SGPT) 52, Alkaline Phosphatase 373H, Total Protein 7.9, Albumin 2.6L, Globulin 5.3, Albumin/Globulin Ratio 0.5L Height (Feet): 5 Height (Inches): 8.00 Weight (Pounds): 113 General Appearance: no apparent distress EENT: normal ENT inspection Neck: supple Cardiovascular: normal rate Respiratory/Chest: decreased breath sounds Abdomen: hypoactive bowel sounds Extremities: non-tender Assessment/Plan Status: stable, not improved Assessment/Plan: Assessment - respiratory distress - intubated - recent occluded GT - replaced - abnormal LFT - 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
[2020-09-03] MEDS: FERRIPROX GT SCH ×3 (09:29→18:22)
[2020-09-03] MEDS: Pantoprazole Inj IVP SCH ×2 (09:29→20:19)
[2020-09-03] MEDS: DEFERASIROX 360 MG GT SCH (09:29)
[2020-09-03] MEDS: levETIRAcetam 1,000mg/NS100ml 100 ML IVPB SCH ×2 (09:30→20:19)
--- NOTE | 2020-09-03 11:23 | General Progress Note ---
Subjective Allergies: Coded Allergies: ADHESIVE TAPE (Verified Allergy, Unknown, 07/20/20) Uncoded Allergies: TAPE (Allergy, Unknown, 08/07/20) Subjective no events,. watching tv. tolerating feeds. no congestion or sob. labs reviewed Objective Last 24 Hour Vital Signs Date Time Temp Pulse Resp B/P (MAP) Pulse Ox O2 Delivery O2 Flow Rate FiO2 09/03/20 08:00 57 09/03/20 08:00 97.8 60 18 116/71 (86) 97 09/03/20 07:38 40 09/03/20 07:35 Mechanical Ventilator Mechanical Ventilator 09/03/20 07:27 78 13 40 09/03/20 04:00 40 09/03/20 04:00 63 09/03/20 04:00 Mechanical Ventilator Mechanical Ventilator 09/03/20 04:00 97.3 69 19 110/75 (87) 99 09/03/20 02:43 81 15 40 09/03/20 00:00 70 09/03/20 00:00 Mechanical Ventilator Mechanical Ventilator 09/03/20 00:00 97.5 81 18 114/79 (91) 99 09/03/20 00:00 40 09/02/20 22:56 78 16 40 09/02/20 20:05 40 09/02/20 20:05 82 09/02/20 20:02 Mechanical Ventilator Mechanical Ventilator 09/02/20 20:00 97.9 79 18 122/72 (89) 99 09/02/20 19:08 79 15 40 09/02/20 16:00 98.2 93 20 128/68 (88) 100 09/02/20 16:00 81 09/02/20 16:00 40 09/02/20 15:36 Mechanical Ventilator Mechanical Ventilator 09/02/20 15:18 76 17 40 09/02/20 12:00 40 09/02/20 12:00 98.2 66 16 113/69 (84) 100 09/02/20 12:00 Mechanical Ventilator Mechanical Ventilator 09/02/20 12:00 66 Intake and Output 09/02/20 09/03/20 19:00 07:00 Intake Total 1080 ml 1225 ml Output Total 2000 ml 1850 ml Balance -920 ml -625 ml Free Water 240 ml IV Total 455 ml Tube Feeding 840 ml 770 ml Output Urine Total 1800 ml 1800 ml Stool Total 200 ml 50 ml Laboratory Tests 09/03/20 05:00: White Blood Count 18.6H, Red Blood Count 2.64L, Hemoglobin 8.4L, Hematocrit 24.5L, Mean Corpuscular Volume 93, Mean Corpuscular Hemoglobin 31.7H, Mean Corpuscular Hemoglobin Concent 34.1, Red Cell Distribution Width 15.3H, Platelet Count 265, Mean Platelet Volume 8.0, Neutrophils (%) (Auto) , Lymphocytes (%) (Auto) , Monocytes (%) (Auto) , Eosinophils (%) (Auto) , Basophils (%) (Auto) , Neutrophils % (Manual) [Pending], Lymphocytes % (Manual) [Pending], Platelet Estimate [Pending], Platelet Morphology [Pending], Sodium Level 138, Potassium Level 3.9, Chloride Level 109H, Carbon Dioxide Level 20L, Anion Gap 9, Blood Urea Nitrogen 44H, Creatinine 1.0, Estimat Glomerular Filtration Rate > 60, Glucose Level 99, Calcium Level 9.2, Total Bilirubin 1.0, Aspartate Amino Transf (AST/SGOT) 41H, Alanine Aminotransferase (ALT/SGPT) 52, Alkaline Phosphatase 373H, Total Protein 7.9, Albumin 2.6L, Globulin 5.3, Albumin/Globulin Ratio 0.5L Height (Feet): 5 Height (Inches): 8.00 Weight (Pounds): 113 Objective General Appearance: WD/WN, lethargic EENT: normal ENT inspection. trach c/d/i Neck: normal alignment Cardiovascular: normal peripheral pulses, normal rate Respiratory/Chest: chest wall non-tender, lungs clear, normal breath sounds Abdomen: normal bowel sounds, non tender, soft, no organomegaly Edema: no edema noted Arm (L), no edema noted Arm (R) Neurologic: weak/sedated Assessment/Plan Problem List: (1) Pneumonia ICD Codes: J18.9 - Pneumonia, unspecified organism SNOMED: 290049332 Qualifiers: Qualified Codes: J18.9 - Pneumonia, unspecified organism (2) Sickle cell anemia ICD Codes: D57.1 - Sickle-cell disease without crisis SNOMED: 382525667 Qualifiers: Qualified Codes: D57.00 - Hb-SS disease with crisis, unspecified (3) Severe sepsis ICD Codes: A41.9 - Sepsis, unspecified organism; R65.20 - Severe sepsis without septic shock SNOMED: 31668085 Status: stable, not improved Assessment/Plan: cont vent support wean as able monitor abg resp care suctioning as needed trach care dvt/stress ulcer prophylaxis ivf picc care transfuse as needed ivf adjusted to d5w monitor labs d/w mother Lalo Ahumada MD Sep 03, 2020 11:23
--- NOTE | 2020-09-03 12:10 | NUR ---
NURSE NOTES: Pt in obvious discomfort related to dislodging vent tubing/reconnection and turning/moving to clean him when the rectal tube was also dislodged. Only pain medication in chart is Morphine, decided to admin not only for pain but also due to diarrhea, prior to reinserting the rectal tube.
[2020-09-03] MEDS: Morphine Sulfate 2mg/ml Inj(IV/IM USE ONLY) IVP PRN ×2 (12:16→18:23)
[2020-09-03] MEDS ORDERED: 1/2 NS 1000ml IV ONE (14:01)
[2020-09-03] MEDS ORDERED: NS 275ml ONE (14:01)
[2020-09-03] MEDS ORDERED: D5NS 1000ml IV ONE (14:01)
[2020-09-03] MEDS ORDERED: NS Irrig 1000ml ONE (14:01)
--- NOTE | 2020-09-03 14:05 | Hematology/Onc Progress Note ---
Assessment/Plan Assessment/Plan Assessment and Recs # Sickle cell crisis noted upon admission, with hx of sickle cell anemia --> hgb 6.5-->7.1-->6.6->>>>7.3-->7.1 -->6.7-->6.5-->6.8->7-->7.2->6.5-->6.7-->6.5->5.3-->7.8->8.4 --> 1 unit prbc on 07/23, 1 unit 08/27, 2 units prbc 08/31 --> ivfs have been started --> anemia panel ordered, with elev ferritin --> recommend to consider hydrea when discharged if stable --> likely does have mild hemolysis --> hgb electrophoresis show evidence of sickle cell trait --> FLOW CYTOMETRY IS NEGATIVE # Hyperferritinemia with elevated ferritin that was noted --> likely consider exjade once discharged though at this time not limiting --> ferritin can >2000 with recurrent transfusions --> trend over time, for EOD observe --> 08/30 deferasirox and ferriprox started # Leukocytosis poa with Severe sepsis due to line infection --> abx: vancomycin-->cefepime/colistin-->cefepime --> wbc 25-->31-->29-->25-->37--->31-->24->19-->18 --> FLOW CYTOMETRY NEG # Respiratory failure s/p Ventilator dependent --> as per pulm, vent adjustment # Port-A-Cath in place --> s/p abx --> s/p permacath removal # Transaminitis -->liver function elevated --> per gi # Dt ppx scds The timing of this note does not necessarily reflect the time of the patient was seen. Greatly appreciate consultation. Subjective Constitutional: Denies: no symptoms, chills, fever, malaise, weakness, other HEENT: Denies: no symptoms, eye pain, blurred vision, tearing, double vision, ear pain, ear discharge, nose pain, nose congestion, throat pain, throat swelling, mouth pain, mouth swelling, other Cardiovascular: Denies: no symptoms, chest pain, edema, irregular heart rate, lightheadedness, palpitations, syncope, other Respiratory: Denies: no symptoms, cough, shortness of breath, SOB with excertion, SOB at rest, sputum, wheezing, other Gastrointestinal/Abdominal: Denies: no symptoms, abdomen distended, abdominal pain, black stools, tarry stools, blood in stool, constipated, diarrhea, difficulty swallowing, nausea, poor appetite, poor fluid intake, rectal bleeding, vomiting, other Genitourinary: Denies: no symptoms, burning, discharge, frequency, flank pain, hematuria, incontinence, pain, urgency, other Hematologic/Lymphatic: Denies: no symptoms, anemia, easy bleeding, easy bruising, adenopathy, other Allergies: Coded Allergies: ADHESIVE TAPE (Verified Allergy, Unknown, 07/20/20) Uncoded Allergies: TAPE (Allergy, Unknown, 08/07/20) Subjective 08/19 no acute events, vent, iv abx, labs reviewed 08/20 labs reviewed, seen by Dr. Celaya and mychal Rn, holding off prbc 08/21 remains on abx with persistently elev wbc, on abx broad spectrum 08/22 labs reviewed, no bleeding, meds noted, wbc still 25k, hgb 6.8, transfuse pr 08/23 cbc has been ordered, meds noted, on cefepime, have mychal path is flow back 08/24 hob is elevated, labs noted, hgb 7, consider for transfusions soon, wbc is better 08/25 labs are reviewed, wbc is worse, flow was done and is negative 08/27 is in the icu, labs noted, on cefepime and vanc, wbc 31 08/29 labs reviewed, hgb 6.7, mychal Feldman in am, no bleeding, seen with Belia 08/30 remains on vent, have restart home chelating agents, hgb 6.5 08/31 feeling better, hgb 5.3, have mychal Avalos Artemio to get 2 units prbc stat 09/01 labs are noted, wbc 19, hgb 7.8, no hemolysis, meds reviewed 09/03 labs are noted, wbc 18, on cefepime, hgb better hgb 8.4 Objective Objective Current Medications Medications (Trade) Dose Ordered Sig/Piedad Route PRN Reason Start Time Stop Time Status Last Admin Dose Admin Acetaminophen (Tylenol) 650 mg Q4H PRN GT Mild Pain (Pain Scale 1-3) 08/24/20 13:00 09/23/20 12:59 08/28/20 13:40 Acetaminophen (Tylenol) 650 mg Q6H PRN GT Temp >100.5 08/10/20 20:20 09/09/20 20:19 09/01/20 20:43 Cefepime HCl 2 gm/ Dextrose 55 ml @ 110 mls/hr Q12H IVPB 09/01/20 15:00 09/08/20 14:59 09/03/20 03:34 Chlorhexidine Gluconate (Christy-Hex 2%) 1 applic DAILY@2000 TOPIC 08/14/20 20:00 11/12/20 19:59 09/02/20 20:00 Folic Acid (Folate) 1 mg DAILY GT 08/11/20 09:00 09/07/20 08:59 09/03/20 09:29 Levetiracetam 100 ml @ 400 mls/hr Q12HR IVPB 08/14/20 10:00 11/12/20 09:59 09/03/20 09:30 Linezolid 300 ml @ 300 mls/hr Q12HR IVPB 08/29/20 11:00 09/05/20 10:59 09/03/20 09:00 Metoclopramide HCl (Reglan) 10 mg Q8H PRN IVP Nausea & Vomiting 08/26/20 11:15 09/25/20 11:14 08/27/20 20:46 Morphine Sulfate (Morphine Sulfate) 2 mg Q4H PRN IVP Severe Pain (Pain Scale 7-10) 08/28/20 15:00 09/04/20 14:59 09/03/20 12:16 Multivitamins (Multivitamins) 1 tab DAILY GT 08/11/20 09:00 09/07/20 08:59 09/03/20 09:29 Pantoprazole (Protonix) 40 mg EVERY 12 HOURS IVP 08/13/20 22:15 09/12/20 22:14 09/03/20 09:29 Patient Own Medication (Patient's Own Med) 2 ea TID GT 08/30/20 09:00 09/29/20 08:59 09/03/20 13:00 Patient Own Medication (Patient's Own Med) 3 ea DAILY GT 08/30/20 09:00 09/29/20 08:59 09/03/20 09:29 Ursodiol (Actigall) 300 mg TWICE A DAY ORAL 09/01/20 09:00 11/30/20 08:59 09/03/20 09:00 Last 24 Hour Vital Signs Date Time Temp Pulse Resp B/P (MAP) Pulse Ox O2 Delivery O2 Flow Rate FiO2 09/03/20 12:36 Mechanical Ventilator Mechanical Ventilator 09/03/20 12:00 40 09/03/20 12:00 75 09/03/20 11:10 71 19 40 09/03/20 08:00 57 09/03/20 08:00 97.8 60 18 116/71 (86) 97 09/03/20 07:38 40 09/03/20 07:35 Mechanical Ventilator Mechanical Ventilator 09/03/20 07:27 78 13 40 09/03/20 04:00 40 09/03/20 04:00 63 09/03/20 04:00 Mechanical Ventilator Mechanical Ventilator 09/03/20 04:00 97.3 69 19 110/75 (87) 99 09/03/20 02:43 81 15 40 09/03/20 00:00 70 09/03/20 00:00 Mechanical Ventilator Mechanical Ventilator 09/03/20 00:00 97.5 81 18 114/79 (91) 99 09/03/20 00:00 40 09/02/20 22:56 78 16 40 09/02/20 20:05 40 09/02/20 20:05 82 09/02/20 20:02 Mechanical Ventilator Mechanical Ventilator 09/02/20 20:00 97.9 79 18 122/72 (89) 99 09/02/20 19:08 79 15 40 09/02/20 16:00 98.2 93 20 128/68 (88) 100 09/02/20 16:00 81 09/02/20 16:00 40 09/02/20 15:36 Mechanical Ventilator Mechanical Ventilator 09/02/20 15:18 76 17 40 09/02/20 12:00 40 09/02/20 12:00 98.2 66 16 113/69 (84) 100 09/02/20 12:00 Mechanical Ventilator Mechanical Ventilator 09/02/20 12:00 66 09/02/20 11:15 65 17 40 09/02/20 08:16 72 14 40 09/02/20 08:15 72 14 40 09/02/20 08:00 Mechanical Ventilator Mechanical Ventilator 09/02/20 08:00 90 09/02/20 08:00 40 09/02/20 08:00 98.2 72 15 110/66 (81) 100 09/02/20 04:02 Mechanical Ventilator Mechanical Ventilator 09/02/20 04:00 70 09/02/20 04:00 98.9 77 17 117/70 (86) 100 09/02/20 04:00 40 09/02/20 03:20 92 23 40 09/02/20 00:00 97.9 79 18 124/67 (86) 100 09/02/20 00:00 83 09/02/20 00:00 Mechanical Ventilator Mechanical Ventilator 09/01/20 23:10 88 15 40 09/01/20 20:00 86 09/01/20 20:00 97.9 80 17 128/74 (92) 100 09/01/20 20:00 Mechanical Ventilator Mechanical Ventilator 09/01/20 20:00 40 09/01/20 19:30 84 19 40 09/01/20 16:00 40 09/01/20 16:00 69 09/01/20 16:00 Mechanical Ventilator Mechanical Ventilator 09/01/20 16:00 97.7 68 17 119/65 (83) 100 09/01/20 15:59 74 15 40 Intake and Output 09/02/20 09/03/20 19:00 07:00 Intake Total 1080 ml 1225 ml Output Total 2000 ml 1850 ml Balance -920 ml -625 ml Free Water 240 ml IV Total 455 ml Tube Feeding 840 ml 770 ml Output Urine Total 1800 ml 1800 ml Stool Total 200 ml 50 ml Labs Test 09/01/20 04:00 09/02/20 03:30 09/03/20 05:00 White Blood Count 19.1 K/UL (4.8-10.8) 18.6 K/UL (4.8-10.8) Red Blood Count 2.47 M/UL (4.70-6.10) 2.64 M/UL (4.70-6.10) Hemoglobin 7.8 G/DL (14.2-18.0) 8.4 G/DL (14.2-18.0) Hematocrit 22.7 % (42.0-52.0) 24.5 % (42.0-52.0) Mean Corpuscular Volume 92 FL (80-99) 93 FL (80-99) Mean Corpuscular Hemoglobin 31.8 PG (27.0-31.0) 31.7 PG (27.0-31.0) Mean Corpuscular Hemoglobin Concent 34.5 G/DL (32.0-36.0) 34.1 G/DL (32.0-36.0) Red Cell Distribution Width 15.7 % (11.6-14.8) 15.3 % (11.6-14.8) Platelet Count 264 K/UL (150-450) 265 K/UL (150-450) Mean Platelet Volume 7.9 FL (6.5-10.1) 8.0 FL (6.5-10.1) Neutrophils (%) (Auto) % (45.0-75.0) % (45.0-75.0) Lymphocytes (%) (Auto) % (20.0-45.0) % (20.0-45.0) Monocytes (%) (Auto) % (1.0-10.0) % (1.0-10.0) Eosinophils (%) (Auto) % (0.0-3.0) % (0.0-3.0) Basophils (%) (Auto) % (0.0-2.0) % (0.0-2.0) Differential Total Cells Counted 100 100 Neutrophils % (Manual) 65 % (45-75) 55 % (45-75) Lymphocytes % (Manual) 22 % (20-45) 18 % (20-45) Monocytes % (Manual) 8 % (1-10) 15 % (1-10) Eosinophils % (Manual) 4 % (0-3) 10 % (0-3) Basophils % (Manual) 1 % (0-2) 2 % (0-2) Band Neutrophils 0 % (0-8) 0 % (0-8) Platelet Estimate Adequate Adequate Platelet Morphology Normal Normal Hypochromasia 3+ 2+ Anisocytosis 1+ 1+ Sodium Level 149 MMOL/L (136-145) 146 MMOL/L (136-145) 138 MMOL/L (136-145) Potassium Level 4.0 MMOL/L (3.5-5.1) 3.6 MMOL/L (3.5-5.1) 3.9 MMOL/L (3.5-5.1) Chloride Level 117 MMOL/L (98-107) 117 MMOL/L (98-107) 109 MMOL/L (98-107) Carbon Dioxide Level 20 MMOL/L (21-32) 20 MMOL/L (21-32) 20 MMOL/L (21-32) Anion Gap 12 mmol/L (5-15) 9 mmol/L (5-15) 9 mmol/L (5-15) Blood Urea Nitrogen 38 mg/dL (7-18) 39 mg/dL (7-18) 44 mg/dL (7-18) Creatinine 1.1 MG/DL (0.55-1.30) 0.9 MG/DL (0.55-1.30) 1.0 MG/DL (0.55-1.30) Estimat Glomerular Filtration Rate > 60 mL/min (>60) > 60 mL/min (>60) > 60 mL/min (>60) Glucose Level 334 MG/DL (74-106) 83 MG/DL (74-106) 99 MG/DL (74-106) Calcium Level 8.6 MG/DL (8.5-10.1) 8.4 MG/DL (8.5-10.1) 9.2 MG/DL (8.5-10.1) Total Bilirubin 1.1 MG/DL (0.2-1.0) 1.0 MG/DL (0.2-1.0) Direct Bilirubin 0.5 MG/DL (0.0-0.3) Aspartate Amino Transf (AST/SGOT) 60 U/L (15-37) 41 U/L (15-37) Alanine Aminotransferase (ALT/SGPT) 64 U/L (12-78) 52 U/L (12-78) Alkaline Phosphatase 422 U/L (46-116) 373 U/L (46-116) Total Protein 7.2 G/DL (6.4-8.2) 7.9 G/DL (6.4-8.2) Albumin 2.4 G/DL (3.4-5.0) 2.6 G/DL (3.4-5.0) Globulin 4.8 g/dL 5.3 g/dL Albumin/Globulin Ratio 0.5 (1.0-2.7) 0.5 (1.0-2.7) Height (Feet): 5 Height (Inches): 8.00 Weight (Pounds): 113 Objective Physical Exam General: alert, Chronically Ill Head: other - Large right-sided craniotomy defect well-heale ++, tracheotomy/vent Respiratory: crackles, rales, other - right side chest wall tenderness Cardiovascular: tachycardia Gastrointestinal: normal inspection, soft, gt++ Musk: decreased range of motion, other - atrophic, motor weakness Neurologic: alert, motor weakness, other - left hemineglect Psychiatric: normal inspection Skin: no rash : garcia++ Roshan Castillo MD Sep 03, 2020 14:05
--- NOTE | 2020-09-03 14:47 | Infectious Diseases Prog Note ---
Assessment/Plan Assessment/Plan A: 1. VRE sepsis. 2. Aspiration pneumonia MRSA, Pseudomonas & Serratia in culture COVID19 X 1: negative. 3. Leukocytosis 4. Sickle cell disease. 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 VDRF 8. Line infection, line removed 9. Serratia pneumonia 10.Tracheostomy malfunction, replaced PLAN: 1. Discontinue Cefepime 2. Continue Zyvox X 4 days Subjective ROS Limited/Unobtainable: Yes Musculoskeletal: Reports: pain Allergies: Coded Allergies: ADHESIVE TAPE (Verified Allergy, Unknown, 07/20/20) Uncoded Allergies: TAPE (Allergy, Unknown, 08/07/20) Objective Last 24 Hour Vital Signs Date Time Temp Pulse Resp B/P (MAP) Pulse Ox O2 Delivery O2 Flow Rate FiO2 09/03/20 12:36 Mechanical Ventilator Mechanical Ventilator 09/03/20 12:00 40 09/03/20 12:00 75 09/03/20 11:10 71 19 40 09/03/20 08:00 57 09/03/20 08:00 97.8 60 18 116/71 (86) 97 09/03/20 07:38 40 09/03/20 07:35 Mechanical Ventilator Mechanical Ventilator 09/03/20 07:27 78 13 40 09/03/20 04:00 40 09/03/20 04:00 63 09/03/20 04:00 Mechanical Ventilator Mechanical Ventilator 09/03/20 04:00 97.3 69 19 110/75 (87) 99 09/03/20 02:43 81 15 40 09/03/20 00:00 70 09/03/20 00:00 Mechanical Ventilator Mechanical Ventilator 09/03/20 00:00 97.5 81 18 114/79 (91) 99 09/03/20 00:00 40 09/02/20 22:56 78 16 40 09/02/20 20:05 40 09/02/20 20:05 82 09/02/20 20:02 Mechanical Ventilator Mechanical Ventilator 09/02/20 20:00 97.9 79 18 122/72 (89) 99 09/02/20 19:08 79 15 40 09/02/20 16:00 98.2 93 20 128/68 (88) 100 09/02/20 16:00 81 09/02/20 16:00 40 09/02/20 15:36 Mechanical Ventilator Mechanical Ventilator 09/02/20 15:18 76 17 40 Height (Feet): 5 Height (Inches): 8.00 Weight (Pounds): 113 HEENT: status post trach, other - s/p craniotomy Respiratory/Chest: other - few rhonchi, on ventilator Cardiovascular: normal rate Abdomen: soft, non tender, other - GT feeding Extremities: no edema Neurologic/Psychiatric: alert, responsive Musculoskeletal: atrophy Laboratory Tests Test 09/03/20 05:00 White Blood Count 18.6 K/UL (4.8-10.8) H Red Blood Count 2.64 M/UL (4.70-6.10) L Hemoglobin 8.4 G/DL (14.2-18.0) L Hematocrit 24.5 % (42.0-52.0) L Mean Corpuscular Volume 93 FL (80-99) Mean Corpuscular Hemoglobin 31.7 PG (27.0-31.0) H Mean Corpuscular Hemoglobin Concent 34.1 G/DL (32.0-36.0) Red Cell Distribution Width 15.3 % (11.6-14.8) H Platelet Count 265 K/UL (150-450) Mean Platelet Volume 8.0 FL (6.5-10.1) Neutrophils (%) (Auto) % (45.0-75.0) Lymphocytes (%) (Auto) % (20.0-45.0) Monocytes (%) (Auto) % (1.0-10.0) Eosinophils (%) (Auto) % (0.0-3.0) Basophils (%) (Auto) % (0.0-2.0) Differential Total Cells Counted 100 Neutrophils % (Manual) 55 % (45-75) Lymphocytes % (Manual) 18 % (20-45) L Monocytes % (Manual) 15 % (1-10) H Eosinophils % (Manual) 10 % (0-3) H Basophils % (Manual) 2 % (0-2) Band Neutrophils 0 % (0-8) Platelet Estimate Adequate Platelet Morphology Normal Hypochromasia 2+ Anisocytosis 1+ Sodium Level 138 MMOL/L (136-145) Potassium Level 3.9 MMOL/L (3.5-5.1) Chloride Level 109 MMOL/L (98-107) H Carbon Dioxide Level 20 MMOL/L (21-32) L Anion Gap 9 mmol/L (5-15) Blood Urea Nitrogen 44 mg/dL (7-18) H Creatinine 1.0 MG/DL (0.55-1.30) Estimat Glomerular Filtration Rate > 60 mL/min (>60) Glucose Level 99 MG/DL (74-106) Calcium Level 9.2 MG/DL (8.5-10.1) Total Bilirubin 1.0 MG/DL (0.2-1.0) Aspartate Amino Transf (AST/SGOT) 41 U/L (15-37) H Alanine Aminotransferase (ALT/SGPT) 52 U/L (12-78) Alkaline Phosphatase 373 U/L (46-116) H Total Protein 7.9 G/DL (6.4-8.2) Albumin 2.6 G/DL (3.4-5.0) L Globulin 5.3 g/dL Albumin/Globulin Ratio 0.5 (1.0-2.7) L Current Medications Medications (Trade) Dose Ordered Sig/Piedad Route PRN Reason Start Time Stop Time Status Last Admin Dose Admin Acetaminophen (Tylenol) 650 mg Q4H PRN GT Mild Pain (Pain Scale 1-3) 08/24/20 13:00 09/23/20 12:59 08/28/20 13:40 Acetaminophen (Tylenol) 650 mg Q6H PRN GT Temp >100.5 08/10/20 20:20 09/09/20 20:19 09/01/20 20:43 Cefepime HCl 2 gm/ Dextrose 55 ml @ 110 mls/hr Q12H IVPB 09/01/20 15:00 09/08/20 14:59 09/03/20 03:34 Chlorhexidine Gluconate (Christy-Hex 2%) 1 applic DAILY@2000 TOPIC 08/14/20 20:00 11/12/20 19:59 09/02/20 20:00 Folic Acid (Folate) 1 mg DAILY GT 08/11/20 09:00 09/07/20 08:59 09/03/20 09:29 Levetiracetam 100 ml @ 400 mls/hr Q12HR IVPB 08/14/20 10:00 11/12/20 09:59 09/03/20 09:30 Linezolid 300 ml @ 300 mls/hr Q12HR IVPB 08/29/20 11:00 09/05/20 10:59 09/03/20 09:00 Metoclopramide HCl (Reglan) 10 mg Q8H PRN IVP Nausea & Vomiting 08/26/20 11:15 09/25/20 11:14 08/27/20 20:46 Morphine Sulfate (Morphine Sulfate) 2 mg Q4H PRN IVP Severe Pain (Pain Scale 7-10) 08/28/20 15:00 09/04/20 14:59 09/03/20 12:16 Multivitamins (Multivitamins) 1 tab DAILY GT 08/11/20 09:00 09/07/20 08:59 09/03/20 09:29 Pantoprazole (Protonix) 40 mg EVERY 12 HOURS IVP 08/13/20 22:15 09/12/20 22:14 09/03/20 09:29 Patient Own Medication (Patient's Own Med) 2 ea TID GT 08/30/20 09:00 09/29/20 08:59 09/03/20 13:00 Patient Own Medication (Patient's Own Med) 3 ea DAILY GT 08/30/20 09:00 09/29/20 08:59 09/03/20 09:29 Ursodiol (Actigall) 300 mg TWICE A DAY ORAL 09/01/20 09:00 11/30/20 08:59 09/03/20 09:00 Wyatt Kemp MD Sep 03, 2020 14:47
--- NOTE | 2020-09-03 16:04 | Surgery Progress Note ---
Surgery Progress Note Subjective Procedure Performed Tracheostomy Symptoms: improved, tolerating diet, passing flatus, BM Additional Comments more alert responsive discussed with mom on phone Objective Last 24 Hour Vital Signs Date Time Temp Pulse Resp B/P (MAP) Pulse Ox O2 Delivery O2 Flow Rate FiO2 09/03/20 12:36 Mechanical Ventilator Mechanical Ventilator 09/03/20 12:00 40 09/03/20 12:00 75 09/03/20 11:10 71 19 40 09/03/20 08:00 57 09/03/20 08:00 97.8 60 18 116/71 (86) 97 09/03/20 07:38 40 09/03/20 07:35 Mechanical Ventilator Mechanical Ventilator 09/03/20 07:27 78 13 40 09/03/20 04:00 40 09/03/20 04:00 63 09/03/20 04:00 Mechanical Ventilator Mechanical Ventilator 09/03/20 04:00 97.3 69 19 110/75 (87) 99 09/03/20 02:43 81 15 40 09/03/20 00:00 70 09/03/20 00:00 Mechanical Ventilator Mechanical Ventilator 09/03/20 00:00 97.5 81 18 114/79 (91) 99 09/03/20 00:00 40 09/02/20 22:56 78 16 40 09/02/20 20:05 40 09/02/20 20:05 82 09/02/20 20:02 Mechanical Ventilator Mechanical Ventilator 09/02/20 20:00 97.9 79 18 122/72 (89) 99 09/02/20 19:08 79 15 40 I&O Intake and Output 09/02/20 09/03/20 19:00 07:00 Intake Total 1080 ml 1225 ml Output Total 2000 ml 1850 ml Balance -920 ml -625 ml Free Water 240 ml IV Total 455 ml Tube Feeding 840 ml 770 ml Output Urine Total 1800 ml 1800 ml Stool Total 200 ml 50 ml Dressing: other Wound: other Cardiovascular: RSR Respiratory: decreased breath sounds Abdomen: soft, non-tender, present bowel sounds Extremities: no tenderness, no cyanosis Laboratory Tests Test 09/03/20 05:00 White Blood Count 18.6 K/UL (4.8-10.8) H Red Blood Count 2.64 M/UL (4.70-6.10) L Hemoglobin 8.4 G/DL (14.2-18.0) L Hematocrit 24.5 % (42.0-52.0) L Mean Corpuscular Volume 93 FL (80-99) Mean Corpuscular Hemoglobin 31.7 PG (27.0-31.0) H Mean Corpuscular Hemoglobin Concent 34.1 G/DL (32.0-36.0) Red Cell Distribution Width 15.3 % (11.6-14.8) H Platelet Count 265 K/UL (150-450) Mean Platelet Volume 8.0 FL (6.5-10.1) Neutrophils (%) (Auto) % (45.0-75.0) Lymphocytes (%) (Auto) % (20.0-45.0) Monocytes (%) (Auto) % (1.0-10.0) Eosinophils (%) (Auto) % (0.0-3.0) Basophils (%) (Auto) % (0.0-2.0) Differential Total Cells Counted 100 Neutrophils % (Manual) 55 % (45-75) Lymphocytes % (Manual) 18 % (20-45) L Monocytes % (Manual) 15 % (1-10) H Eosinophils % (Manual) 10 % (0-3) H Basophils % (Manual) 2 % (0-2) Band Neutrophils 0 % (0-8) Platelet Estimate Adequate Platelet Morphology Normal Hypochromasia 2+ Anisocytosis 1+ Sodium Level 138 MMOL/L (136-145) Potassium Level 3.9 MMOL/L (3.5-5.1) Chloride Level 109 MMOL/L (98-107) H Carbon Dioxide Level 20 MMOL/L (21-32) L Anion Gap 9 mmol/L (5-15) Blood Urea Nitrogen 44 mg/dL (7-18) H Creatinine 1.0 MG/DL (0.55-1.30) Estimat Glomerular Filtration Rate > 60 mL/min (>60) Glucose Level 99 MG/DL (74-106) Calcium Level 9.2 MG/DL (8.5-10.1) Total Bilirubin 1.0 MG/DL (0.2-1.0) Aspartate Amino Transf (AST/SGOT) 41 U/L (15-37) H Alanine Aminotransferase (ALT/SGPT) 52 U/L (12-78) Alkaline Phosphatase 373 U/L (46-116) H Total Protein 7.9 G/DL (6.4-8.2) Albumin 2.6 G/DL (3.4-5.0) L Globulin 5.3 g/dL Albumin/Globulin Ratio 0.5 (1.0-2.7) L Plan Problems: (1) Pneumonia (2) Sickle cell anemia (3) Tachycardia (4) Severe sepsis (5) Sickle cell crisis (6) Sepsis Assessment & Plan: 35-year-old male sickle cell multiple comorbidities history of craniotomy trach feeding tube prior port infected removed see prior admission and consult and operative notes. Currently presents with significant leukocytosis fevers hypotension in intensive care unit wound site evaluated unlikely etiology. Trach evaluated may consider changing. LFTs noted elevated. Ultrasound ordered pending results trend labs continue IV antibiotics appreciate infectious disease input will follow with recommendations thank you for let me participate in patient's care KUB and US noted labs reviewed transfuse prbc prn trach change peg changed line out picc placed persistent wbc h/h noted anemia ss better since new trach Shiley [address] secretions manageable Trach replaced at bedside 925 for malpositioning it was identified he does have a false track as well. Will ensure trach is in correct positioning daily every shift trach not stable removed and intubated 08/25 on ett vent will need trach revision discussed with mother and medical teams trach and picc s/p trach revision 6 f dxlt downgraded improved d/c plan pulmonary arteries: Evaluation for pulmonary embolus is limited due to breathing motion artifact. No central pulmonary emboli are identified. Aorta: No acute findings. No thoracic aortic aneurysm. Lungs: There are moderately consolidating infiltrates identified in both lower lobes dependently with mild additional patchy infiltrates dependently in both upper lobes. The findings are consistent with bilateral nonspecific pneumonia. Aspiration pneumonia could give this appearance. The infiltrates are only somewhat typical of Covid 19. Confidence is immediate. Pleural space: Unremarkable. No significant effusion. No pneumothorax. Heart: Unremarkable. No cardiomegaly. No significant pericardial effusion. No evidence of RV dysfunction. Bones/joints: No acute fracture. No dislocation. Soft tissues: Unremarkable. Lymph nodes: Unremarkable. No enlarged lymph nodes. Tubes, lines and devices: There is a tracheostomy tube in good position. IMPRESSION: 1. There are moderately consolidating infiltrates identified in both lower lobes dependently with mild additional patchy infiltrates dependently in both upper lobes. The findings are consistent with bilateral nonspecific pneumonia. Aspiration pneumonia could give this appearance. The infiltrates are only somewhat typical of Covid 19. Confidence is immediate. 2. Evaluation for pulmonary embolus is limited due to breathing motion artifact. No central pulmonary emboli are identified. The liver is homogeneous. We cannot identify a normal spleen. There is dense crescentic calcification in the left upper quadrant at the expected location of the spleen. Gallbladder is absent. The pancreas is unremarkable. Adrenals are normal in morphology. There is a small punctate cortical calcification left kidney. No hydronephrosis bilaterally There is a G-tube in place. Gas-filled bowel loops identified throughout the abdomen and pelvis. No discrete transition point or obstruction. Appendix partially visualized. There is some free fluid in the pelvis. There is no free air. There is a mildly prominent lymph nodes noted in the upper to mid retroperitoneum noted of undetermined etiology or significance. Rivera catheter noted in the bladder. The reservoir for the penile prosthesis is identified in the left lower pelvis. There is a right femoral venous catheter in place. Diffuse sclerosis of the bony pelvis and hips noted of undetermined etiology. IMPRESSION: BILATERAL LOWER LOBE PNEUMONIAS. ALSO SOME HAZY INFILTRATES IN THE UPPER LOBES. A NORMAL SPLEEN IS NOT VISUALIZED. THERE IS A DENSE CRESCENTIC CALCIFICATION LEFT UPPER QUADRANT AT THE EXPECTED LOCATION OF THE SPLEEN. 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 PUNCTATE CORTICAL CALCIFICATION LEFT KIDNEY. NO HYDRONEPHROSIS. PROMINENT LYMPH NODES IN THE UPPER TO MID RETROPERITONEUM OF UNDETERMINED ETIOLOGY OR SIGNIFICANCE. G-TUBE, RIVERA CATHETER, RIGHT FEMORAL CATHETER AND PENILE PROSTHESIS NOTED IN PLACE. MILD DIFFUSE SCLEROSIS OF THE BONY PELVIS AND BOTH HIPS OF UNDETERMINED ETIOLOGY. QUESTION HISTORY OF RENAL OSTEODYSTROPHY. There is a large craniectomy defect in the right frontal temporal region. Diffuse age-related volume loss demonstrated. 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 No definite acute infarct seen. There is no hemorrhage, mass effect or shift. Ventricles and cisterns as well as brainstem and posterior fossa appear unremarkable. The sellar region is normal. Sinuses, mastoid air cells and bony calvarium appear intact. IMPRESSION: Large right frontotemporal craniectomy defect. 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 No definite acute intracranial abnormality. (7) Port-A-Cath in place Assessment & Plan: prior removal for infection site okay dressings changed no active infection from wound picc Harman Zhao Sep 03, 2020 16:04
--- NOTE | 2020-09-03 16:47 | Pulmonology Progress Note ---
Subjective ROS Limited/Unobtainable: Yes Constitutional: Reports: other - transferred to ICU Musculoskeletal: Reports: pain Allergies: Coded Allergies: ADHESIVE TAPE (Verified Allergy, Unknown, 07/20/20) Uncoded Allergies: TAPE (Allergy, Unknown, 08/07/20) All Systems: reviewed and negative except above Objective Last 24 Hour Vital Signs Date Time Temp Pulse Resp B/P (MAP) Pulse Ox O2 Delivery O2 Flow Rate FiO2 09/03/20 16:00 Mechanical Ventilator Mechanical Ventilator 09/03/20 16:00 98.3 70 18 123/41 (68) 98 09/03/20 15:10 82 19 40 09/03/20 12:36 Mechanical Ventilator Mechanical Ventilator 09/03/20 12:00 98.2 62 18 112/68 (83) 97 09/03/20 12:00 40 09/03/20 12:00 75 09/03/20 11:10 71 19 40 09/03/20 08:00 57 09/03/20 08:00 97.8 60 18 116/71 (86) 97 09/03/20 07:38 40 09/03/20 07:35 Mechanical Ventilator Mechanical Ventilator 09/03/20 07:27 78 13 40 09/03/20 04:00 40 09/03/20 04:00 63 09/03/20 04:00 Mechanical Ventilator Mechanical Ventilator 09/03/20 04:00 97.3 69 19 110/75 (87) 99 09/03/20 02:43 81 15 40 09/03/20 00:00 70 09/03/20 00:00 Mechanical Ventilator Mechanical Ventilator 09/03/20 00:00 97.5 81 18 114/79 (91) 99 09/03/20 00:00 40 09/02/20 22:56 78 16 40 09/02/20 20:05 40 09/02/20 20:05 82 09/02/20 20:02 Mechanical Ventilator Mechanical Ventilator 09/02/20 20:00 97.9 79 18 122/72 (89) 99 09/02/20 19:08 79 15 40 Intake and Output 09/02/20 09/03/20 19:00 07:00 Intake Total 1080 ml 1225 ml Output Total 2000 ml 1850 ml Balance -920 ml -625 ml Free Water 240 ml IV Total 455 ml Tube Feeding 840 ml 770 ml Output Urine Total 1800 ml 1800 ml Stool Total 200 ml 50 ml Laboratory Tests 09/03/20 05:00: White Blood Count 18.6H, Red Blood Count 2.64L, Hemoglobin 8.4L, Hematocrit 24.5L, Mean Corpuscular Volume 93, Mean Corpuscular Hemoglobin 31.7H, Mean Corpuscular Hemoglobin Concent 34.1, Red Cell Distribution Width 15.3H, Platelet Count 265, Mean Platelet Volume 8.0, Neutrophils (%) (Auto) , Lymphocytes (%) (Auto) , Monocytes (%) (Auto) , Eosinophils (%) (Auto) , Basophils (%) (Auto) , Differential Total Cells Counted 100, Neutrophils % (Manual) 55, Lymphocytes % (Manual) 18L, Monocytes % (Manual) 15H, Eosinophils % (Manual) 10H, Basophils % (Manual) 2, Band Neutrophils 0, Platelet Estimate Adequate, Platelet Morphology Normal, Hypochromasia 2+, Anisocytosis 1+, Sodium Level 138, Potassium Level 3.9, Chloride Level 109H, Carbon Dioxide Level 20L, Anion Gap 9, Blood Urea Nitrogen 44H, Creatinine 1.0, Estimat Glomerular Filtration Rate > 60, Glucose Level 99, Calcium Level 9.2, Total Bilirubin 1.0, Aspartate Amino Transf (AST/SGOT) 41H, Alanine Aminotransferase (ALT/SGPT) 52, Alkaline Phosphatase 373H, Total Protein 7.9, Albumin 2.6L, Globulin 5.3, Albumin/Globulin Ratio 0.5L Current Medications Medications (Trade) Dose Ordered Sig/Piedad Route PRN Reason Start Time Stop Time Status Last Admin Dose Admin Acetaminophen (Tylenol) 650 mg Q4H PRN GT Mild Pain (Pain Scale 1-3) 08/24/20 13:00 09/23/20 12:59 08/28/20 13:40 Acetaminophen (Tylenol) 650 mg Q6H PRN GT Temp >100.5 08/10/20 20:20 09/09/20 20:19 09/01/20 20:43 Chlorhexidine Gluconate (Christy-Hex 2%) 1 applic DAILY@1999 TOPIC 08/14/20 20:00 11/12/20 19:59 09/02/20 20:00 Folic Acid (Folate) 1 mg DAILY GT 08/11/20 09:00 09/07/20 08:59 09/03/20 09:29 Levetiracetam 100 ml @ 400 mls/hr Q12HR IVPB 08/14/20 10:00 11/12/20 09:59 09/03/20 09:30 Linezolid 300 ml @ 300 mls/hr Q12HR IVPB 08/29/20 11:00 09/05/20 10:59 09/03/20 09:00 Metoclopramide HCl (Reglan) 10 mg Q8H PRN IVP Nausea & Vomiting 08/26/20 11:15 09/25/20 11:14 08/27/20 20:46 Morphine Sulfate (Morphine Sulfate) 2 mg Q4H PRN IVP Severe Pain (Pain Scale 7-10) 08/28/20 15:00 09/04/20 14:59 09/03/20 12:16 Multivitamins (Multivitamins) 1 tab DAILY GT 08/11/20 09:00 09/07/20 08:59 09/03/20 09:29 Pantoprazole (Protonix) 40 mg EVERY 12 HOURS IVP 08/13/20 22:15 09/12/20 22:14 09/03/20 09:29 Patient Own Medication (Patient's Own Med) 2 ea TID GT 08/30/20 09:00 09/29/20 08:59 09/03/20 13:00 Patient Own Medication (Patient's Own Med) 3 ea DAILY GT 08/30/20 09:00 09/29/20 08:59 09/03/20 09:29 Ursodiol (Actigall) 300 mg TWICE A DAY ORAL 09/01/20 09:00 11/30/20 08:59 09/03/20 09:00 Assessment/Plan Assessment/Plan Pulmonary CCM Progress Note 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 Port-A-Cath Status post removal of implanted right chest wall Port-A-Cath Sickle cell crisis Sickle cell anemia Chronic respiratory failure, ventilator dependent, with tracheostomy status Transaminitis Seizure disorder acute pneumonia leukocytosis recurrent sepsis Plan care noted stablein SDU IV antibiotics per ID respiratory care as is Ventilatory support- volume ventilation SNF meds supportive care suction no wean planned monitor wbc per ID oxygen therapy and titrate prognosis guarded medications/laboratory data/nursing notes reviewed in detail note reviewed and edited care discussed with RN and RT Subjective Interval Events: stable overnight care noted labs still not improved ROS Limited/Unobtainable: Yes Condition: stable Objective Vital Signs Noted Objective: WDWN NAD reduced breath sounds bilaterally without rhonchi or wheeze [id number] without MRG NABS nontender GT no CCE reduced LOC Benson Holden MD Sep 03, 2020 16:47
--- NOTE | 2020-09-03 19:20 | NUR ---
NURSE NOTES: Received report from RN. Pt is lying in bed, not in distress. Trached to vent tolerating the following setting AC12, TV 500, FiO2 50%. PICC in R UA intact and patent. GT intact and patent running Vital AF 70cc/hr. Bed locked and in lowest position, call light within reached. Head of bed in 30*. Will continue to monitor pt. Will continue with plan of care. Addendum: 09/03/20 at 2211 by Anny Cabrera RN RN Report received from ARLYN Jaramillo
[2020-09-03] MEDS: Dyna-Hex 2% Top Sol 2oz TOPIC SCH (20:18)
--- NOTE | 2020-09-03 21:30 | NUR ---
NURSE NOTES: Medications were given. Full body assessment done. Pt is not in pain, not in distress. Pt is comfortable in bed, watching tv. Will continue to monitor pt.
[2020-09-04] VITALS: BP 113/64
[2020-09-04 04:00] VITALS: BP 106/59
--- NOTE | 2020-09-04 05:41 | NUR ---
NURSE NOTES: Bed bath given. No acute distress noted at this time. SR on patient monitor. Tolerating current vent setting, saturating at 100%. Reposition done. Oral care given. Will continue to monitor.
--- NOTE | 2020-09-04 06:49 | Hematology/Onc Progress Note ---
Assessment/Plan Assessment/Plan Assessment and Recs # Sickle cell crisis noted upon admission, with hx of sickle cell anemia --> hgb 6.5-->7.1-->6.6->>>>7.3-->7.1 -->6.7-->6.5-->6.8->7-->7.2->6.5-->6.7-->6.5->5.3-->7.8->8.4 --> 1 unit prbc on 07/23, 1 unit 08/27, 2 units prbc 08/31 --> ivfs have been started --> anemia panel ordered, with elev ferritin --> recommend to consider hydrea when discharged if stable --> likely does have mild hemolysis --> hgb electrophoresis show evidence of sickle cell trait --> FLOW CYTOMETRY IS NEGATIVE # Hyperferritinemia with elevated ferritin that was noted --> likely consider exjade once discharged though at this time not limiting --> ferritin can >2000 with recurrent transfusions --> trend over time, for EOD observe --> 08/30 deferasirox and ferriprox started # Leukocytosis poa with Severe sepsis due to line infection --> abx: vancomycin-->cefepime/colistin-->cefepime--linezolid --> wbc 25-->31-->29-->25-->37--->31-->24->19-->18 --> FLOW CYTOMETRY NEG # Respiratory failure s/p Ventilator dependent --> as per pulm, vent adjustment # Port-A-Cath in place --> s/p abx --> s/p permacath removal # Transaminitis -->liver function elevated --> per gi # Dt ppx scds The timing of this note does not necessarily reflect the time of the patient was seen. Greatly appreciate consultation. Subjective Constitutional: Denies: no symptoms, chills, fever, malaise, weakness, other HEENT: Denies: no symptoms, eye pain, blurred vision, tearing, double vision, ear pain, ear discharge, nose pain, nose congestion, throat pain, throat swelling, mouth pain, mouth swelling, other Respiratory: Denies: no symptoms, cough, shortness of breath, SOB with excertion, SOB at rest, sputum, wheezing, other Gastrointestinal/Abdominal: Denies: no symptoms, abdomen distended, abdominal pain, black stools, tarry stools, blood in stool, constipated, diarrhea, difficulty swallowing, nausea, poor appetite, poor fluid intake, rectal bleeding, vomiting, other Genitourinary: Denies: no symptoms, burning, discharge, frequency, flank pain, hematuria, incontinence, pain, urgency, other Endocrine: Denies: no symptoms, excessive sweating, flushing, intolerance to cold, intolerance to heat, increased hunger, increased thirst, increased urine, unexplained weight gain, unexplained weight loss, other Hematologic/Lymphatic: Denies: no symptoms, anemia, easy bleeding, easy bruising, adenopathy, other Allergies: Coded Allergies: ADHESIVE TAPE (Verified Allergy, Unknown, 07/20/20) Uncoded Allergies: TAPE (Allergy, Unknown, 08/07/20) Subjective 08/19 no acute events, vent, iv abx, labs reviewed 08/20 labs reviewed, seen by Dr. Celaya and mychal Rn, holding off prbc 08/21 remains on abx with persistently elev wbc, on abx broad spectrum 08/22 labs reviewed, no bleeding, meds noted, wbc still 25k, hgb 6.8, transfuse pr 08/23 cbc has been ordered, meds noted, on cefepime, have mychal path is flow back 08/24 hob is elevated, labs noted, hgb 7, consider for transfusions soon, wbc is better 08/25 labs are reviewed, wbc is worse, flow was done and is negative 08/27 is in the icu, labs noted, on cefepime and vanc, wbc 31 08/29 labs reviewed, hgb 6.7, mychal Feldman in am, no bleeding, seen with Belia 08/30 remains on vent, have restart home chelating agents, hgb 6.5 08/31 feeling better, hgb 5.3, have mychal Avalos Artemio to get 2 units prbc stat 09/01 labs are noted, wbc 19, hgb 7.8, no hemolysis, meds reviewed 09/03 labs are noted, wbc 18, on cefepime, hgb better hgb 8.4 09/04 labs noted, no bleeding, cbc is pending, on abx Objective Objective Current Medications Medications (Trade) Dose Ordered Sig/Piedad Route PRN Reason Start Time Stop Time Status Last Admin Dose Admin Acetaminophen (Tylenol) 650 mg Q4H PRN GT Mild Pain (Pain Scale 1-3) 08/24/20 13:00 09/23/20 12:59 08/28/20 13:40 Acetaminophen (Tylenol) 650 mg Q6H PRN GT Temp >100.5 08/10/20 20:20 09/09/20 20:19 09/01/20 20:43 Chlorhexidine Gluconate (Christy-Hex 2%) 1 applic DAILY@2000 TOPIC 08/14/20 20:00 11/12/20 19:59 09/03/20 20:18 Folic Acid (Folate) 1 mg DAILY GT 08/11/20 09:00 09/07/20 08:59 09/03/20 09:29 Levetiracetam 100 ml @ 400 mls/hr Q12HR IVPB 08/14/20 10:00 11/12/20 09:59 09/03/20 20:19 Linezolid 300 ml @ 300 mls/hr Q12HR IVPB 08/29/20 11:00 09/05/20 10:59 09/03/20 20:19 Metoclopramide HCl (Reglan) 10 mg Q8H PRN IVP Nausea & Vomiting 08/26/20 11:15 09/25/20 11:14 08/27/20 20:46 Morphine Sulfate (Morphine Sulfate) 2 mg Q4H PRN IVP Severe Pain (Pain Scale 7-10) 08/28/20 15:00 09/04/20 14:59 09/03/20 18:23 Multivitamins (Multivitamins) 1 tab DAILY GT 08/11/20 09:00 09/07/20 08:59 09/03/20 09:29 Pantoprazole (Protonix) 40 mg EVERY 12 HOURS IVP 08/13/20 22:15 09/12/20 22:14 09/03/20 20:19 Patient Own Medication (Patient's Own Med) 2 ea TID GT 08/30/20 09:00 09/29/20 08:59 09/03/20 18:22 Patient Own Medication (Patient's Own Med) 3 ea DAILY GT 08/30/20 09:00 09/29/20 08:59 09/03/20 09:29 Ursodiol (Actigall) 300 mg TWICE A DAY ORAL 09/01/20 09:00 11/30/20 08:59 09/03/20 18:22 Last 24 Hour Vital Signs Date Time Temp Pulse Resp B/P (MAP) Pulse Ox O2 Delivery O2 Flow Rate FiO2 09/04/20 04:00 97.3 69 15 106/59 (75) 100 09/04/20 04:00 40 09/04/20 04:00 64 09/04/20 04:00 Mechanical Ventilator Mechanical Ventilator 09/04/20 03:51 72 14 40 09/04/20 00:00 72 09/04/20 00:00 Mechanical Ventilator Mechanical Ventilator 09/04/20 00:00 97.5 72 15 113/64 (80) 99 09/03/20 23:00 64 16 40 09/03/20 21:07 97.0 70 18 116/75 (89) 99 09/03/20 20:00 40 09/03/20 20:00 Mechanical Ventilator Mechanical Ventilator 09/03/20 20:00 97.0 70 17 116/75 (89) 99 09/03/20 20:00 66 09/03/20 19:00 79 17 40 09/03/20 16:00 Mechanical Ventilator Mechanical Ventilator 09/03/20 16:00 98.3 70 18 123/41 (68) 98 09/03/20 16:00 79 09/03/20 16:00 40 09/03/20 15:10 82 19 40 09/03/20 12:36 Mechanical Ventilator Mechanical Ventilator 09/03/20 12:00 98.2 62 18 112/68 (83) 97 09/03/20 12:00 40 09/03/20 12:00 75 09/03/20 11:10 71 19 40 09/03/20 08:00 57 09/03/20 08:00 97.8 60 18 116/71 (86) 97 09/03/20 07:38 40 09/03/20 07:35 Mechanical Ventilator Mechanical Ventilator 09/03/20 07:27 78 13 40 09/03/20 04:00 40 09/03/20 04:00 63 09/03/20 04:00 Mechanical Ventilator Mechanical Ventilator 09/03/20 04:00 97.3 69 19 110/75 (87) 99 09/03/20 02:43 81 15 40 09/03/20 00:00 70 09/03/20 00:00 Mechanical Ventilator Mechanical Ventilator 09/03/20 00:00 97.5 81 18 114/79 (91) 99 09/03/20 00:00 40 09/02/20 22:56 78 16 40 09/02/20 20:05 40 09/02/20 20:05 82 09/02/20 20:02 Mechanical Ventilator Mechanical Ventilator 09/02/20 20:00 97.9 79 18 122/72 (89) 99 09/02/20 19:08 79 15 40 09/02/20 16:00 98.2 93 20 128/68 (88) 100 09/02/20 16:00 81 09/02/20 16:00 40 09/02/20 15:36 Mechanical Ventilator Mechanical Ventilator 09/02/20 15:18 76 17 40 09/02/20 12:00 40 09/02/20 12:00 98.2 66 16 113/69 (84) 100 09/02/20 12:00 Mechanical Ventilator Mechanical Ventilator 09/02/20 12:00 66 09/02/20 11:15 65 17 40 09/02/20 08:16 72 14 40 09/02/20 08:15 72 14 40 09/02/20 08:00 Mechanical Ventilator Mechanical Ventilator 09/02/20 08:00 90 09/02/20 08:00 40 09/02/20 08:00 98.2 72 15 110/66 (81) 100 Intake and Output 09/03/20 09/04/20 19:00 07:00 Intake Total 70 ml 1320 ml Output Total 700 ml 1000 ml Balance -630 ml 320 ml Free Water 150 ml IV Total 400 ml Tube Feeding 70 ml 770 ml Output Urine Total 700 ml 1000 ml # Bowel Movements 1 Labs Test 09/02/20 03:30 09/03/20 05:00 Sodium Level 146 MMOL/L (136-145) 138 MMOL/L (136-145) Potassium Level 3.6 MMOL/L (3.5-5.1) 3.9 MMOL/L (3.5-5.1) Chloride Level 117 MMOL/L (98-107) 109 MMOL/L (98-107) Carbon Dioxide Level 20 MMOL/L (21-32) 20 MMOL/L (21-32) Anion Gap 9 mmol/L (5-15) 9 mmol/L (5-15) Blood Urea Nitrogen 39 mg/dL (7-18) 44 mg/dL (7-18) Creatinine 0.9 MG/DL (0.55-1.30) 1.0 MG/DL (0.55-1.30) Estimat Glomerular Filtration Rate > 60 mL/min (>60) > 60 mL/min (>60) Glucose Level 83 MG/DL (74-106) 99 MG/DL (74-106) Calcium Level 8.4 MG/DL (8.5-10.1) 9.2 MG/DL (8.5-10.1) White Blood Count 18.6 K/UL (4.8-10.8) Red Blood Count 2.64 M/UL (4.70-6.10) Hemoglobin 8.4 G/DL (14.2-18.0) Hematocrit 24.5 % (42.0-52.0) Mean Corpuscular Volume 93 FL (80-99) Mean Corpuscular Hemoglobin 31.7 PG (27.0-31.0) Mean Corpuscular Hemoglobin Concent 34.1 G/DL (32.0-36.0) Red Cell Distribution Width 15.3 % (11.6-14.8) Platelet Count 265 K/UL (150-450) Mean Platelet Volume 8.0 FL (6.5-10.1) Neutrophils (%) (Auto) % (45.0-75.0) Lymphocytes (%) (Auto) % (20.0-45.0) Monocytes (%) (Auto) % (1.0-10.0) Eosinophils (%) (Auto) % (0.0-3.0) Basophils (%) (Auto) % (0.0-2.0) Differential Total Cells Counted 100 Neutrophils % (Manual) 55 % (45-75) Lymphocytes % (Manual) 18 % (20-45) Monocytes % (Manual) 15 % (1-10) Eosinophils % (Manual) 10 % (0-3) Basophils % (Manual) 2 % (0-2) Band Neutrophils 0 % (0-8) Platelet Estimate Adequate Platelet Morphology Normal Hypochromasia 2+ Anisocytosis 1+ Total Bilirubin 1.0 MG/DL (0.2-1.0) Aspartate Amino Transf (AST/SGOT) 41 U/L (15-37) Alanine Aminotransferase (ALT/SGPT) 52 U/L (12-78) Alkaline Phosphatase 373 U/L (46-116) Total Protein 7.9 G/DL (6.4-8.2) Albumin 2.6 G/DL (3.4-5.0) Globulin 5.3 g/dL Albumin/Globulin Ratio 0.5 (1.0-2.7) Height (Feet): 5 Height (Inches): 8.00 Weight (Pounds): 113 Objective Physical Exam General: alert, Chronically Ill Head: other - Large right-sided craniotomy defect well-heale ++, tracheotomy/vent Respiratory: crackles, rales, other - right side chest wall tenderness Cardiovascular: tachycardia Gastrointestinal: normal inspection, soft, gt++ Musk: decreased range of motion, other - atrophic, motor weakness Neurologic: alert, motor weakness, other - left hemineglect Psychiatric: normal inspection Skin: no rash : garcia++ Roshan Castillo MD Sep 04, 2020 06:49
--- NOTE | 2020-09-04 07:12 | NUR ---
NURSE HAND-OFF REPORT: Important Events on Shift:[] Patient Status: [] Diet: [] Pending Orders: [] Pending Results/Labs:[] Pending MD notification:[] Latest Vital Signs: Temperature 97.3 , Pulse 69 , B/P 106 /59 , Respiratory Rate 15 , O2 SAT 100 , Mechanical Ventilator, O2 Flow Rate . Vital Sign Comment: [] EKG Rhythm: Sinus Rhythm Rhythm change?: N MD Notified?: N -GRACE JIMENEZ Response: Latest Stevens Fall Score: 35 Fall Risk: Medium Risk Safety Measures: Call light Within Reach, Bed Alarm Zone 1, Side Rails Side Rails x3, Bed position Low and Locked. Fall Precautions: Yellow Socks Yellow Gown Door Sign Patient Fall Education Report given to [].
--- NOTE | 2020-09-04 07:16 | NUR ---
NURSE HAND-OFF REPORT: Family member concern made aware, no new order. Important Events on Shift: Patient Status: no acute distress noted. Diet: Vital AF Pending Orders:n Pending Results/Labs:n Pending MD notification:n Latest Vital Signs: Temperature 97.3 , Pulse 69 , B/P 106 /59 , Respiratory Rate 15 , O2 SAT 100 , Mechanical Ventilator, O2 Flow Rate . Vital Sign Comment: [] EKG Rhythm: Sinus Rhythm Rhythm change?: N MD Notified?: N -GRACE JIMENEZ Response: Latest Stevens Fall Score: 35 Fall Risk: Medium Risk Safety Measures: Call light Within Reach, Bed Alarm Zone 1, Side Rails Side Rails x3, Bed position Low and Locked. Fall Precautions: Yellow Socks Yellow Gown Door Sign Patient Fall Education Report given to ARLYN Ortiz.
[2020-09-04 07:22] LABS: HEMATOCRIT 23.4 % (42.0-52.0); HEMOGLOBIN 7.9 G/DL (14.2-18.0); MEAN CORPUSCULAR VOLUME 93 FL (80-99); PLATELET COUNT 221 K/UL (150-450); RED BLOOD COUNT 2.52 M/UL (4.70-6.10); RED CELL DISTRIBUTION WIDTH 14.5 % (11.6-14.8); WHITE BLOOD COUNT 17.5 K/UL (4.8-10.8)
[2020-09-04 08:00] VITALS: BP 98/67
[2020-09-04 08:00] LABS: ANION GAP 10 mmol/L (5-15); BLOOD UREA NITROGEN 54 mg/dL (7-18); CALCIUM 8.9 MG/DL (8.5-10.1); CARBON DIOXIDE 20 MMOL/L (21-32); CHLORIDE 112 MMOL/L (98-107); CREATININE 0.9 MG/DL (0.55-1.30); SODIUM 142 MMOL/L (136-145)
--- NOTE | 2020-09-04 08:08 | Critical Care Progress Note ---
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 Port-A-Cath Status post removal of implanted right chest wall Port-A-Cath Sickle cell crisis Sickle cell anemia Chronic respiratory failure, ventilator dependent, with tracheostomy status Transaminitis Seizure disorder acute pneumonia leukocytosis recurrent sepsis PLAN care noted d/w surgery IV antibiotics per ID respiratory care as is Ventilatory support- volume ventilation as is oxygen adequate SNF meds supportive care suction no wean planned prognosis guarded medications/laboratory data/nursing notes reviewed in detail note reviewed and edited care discussed with RN and RT Critical Care - Subjective ROS Limited/Unobtainable: Yes Condition: unchanged EKG Rhythm: Sinus Rhythm Residuals: minimal Tube Feeding Tolerated: yes I&O: Intake and Output 09/03/20 09/04/20 19:00 07:00 Intake Total 70 ml 1390 ml Output Total 700 ml 1000 ml Balance -630 ml 390 ml Free Water 150 ml IV Total 400 ml Tube Feeding 70 ml 840 ml Output Urine Total 700 ml 1000 ml # Bowel Movements 1 Critical Care - Objective ET-Tube: 7.0 ET Position: 23 Last 24 Hour Vital Signs Date Time Temp Pulse Resp B/P (MAP) Pulse Ox O2 Delivery O2 Flow Rate FiO2 09/04/20 04:00 97.3 69 15 106/59 (75) 100 09/04/20 04:00 40 09/04/20 04:00 64 09/04/20 04:00 Mechanical Ventilator Mechanical Ventilator 09/04/20 03:51 72 14 40 09/04/20 00:00 72 09/04/20 00:00 Mechanical Ventilator Mechanical Ventilator 09/04/20 00:00 97.5 72 15 113/64 (80) 99 09/03/20 23:00 64 16 40 09/03/20 21:07 97.0 70 18 116/75 (89) 99 09/03/20 20:00 40 09/03/20 20:00 Mechanical Ventilator Mechanical Ventilator 09/03/20 20:00 97.0 70 17 116/75 (89) 99 09/03/20 20:00 66 09/03/20 19:00 79 17 40 09/03/20 16:00 Mechanical Ventilator Mechanical Ventilator 09/03/20 16:00 98.3 70 18 123/41 (68) 98 09/03/20 16:00 79 09/03/20 16:00 40 09/03/20 15:10 82 19 40 10/4/20 12:36 Mechanical Ventilator Mechanical Ventilator 09/03/20 12:00 98.2 62 18 112/68 (83) 97 09/03/20 12:00 40 09/03/20 12:00 75 09/03/20 11:10 71 19 40 Objective: WDWN NAD reduced breath sounds bilaterally without rhonchi or wheeze [id number] without MRG NABS nontender GT no CCE reduced LOC James Nuñez MD Sep 04, 2020 08:08
--- NOTE | 2020-09-04 08:16 | NUR ---
NURSE NOTES: Received report from ARLYN Ulloa. Patient in bed resting, no active s/s cardiac, respiratory distress noticed at this time. Patient AOx0-1, open eyes spontaneously, non-verbal. Trach to delia Shiley 6 AC 12 TV 500 Fio2 50% PEEP 0. GT feeding running on vital AF @70ml/h. Bed in lowest position, side rails upx3, call light within reach, bed alarm on, Will continue to monitor. Endorsed MD made aware family member's concern regarding decreased in level of consciousness, CT of head previously taken, no active s/s resulted, no new order received at this time.
[2020-09-04] MEDS: Ursodiol 300mg cap ORAL SCH ×2 (09:06→17:12)
[2020-09-04] MEDS: Pantoprazole Inj IVP SCH ×2 (09:06→21:15)
[2020-09-04] MEDS: FERRIPROX GT SCH ×3 (09:07→17:12)
[2020-09-04] MEDS: DEFERASIROX 360 MG GT SCH (09:07)
[2020-09-04] MEDS: levETIRAcetam 1,000mg/NS100ml 100 ML IVPB SCH (09:07)
[2020-09-04] MEDS: Linezolid 600mg/300ml (Pre-Mix) IVPB SCH ×2 (09:07→21:15)
--- NOTE | 2020-09-04 10:02 | NUR ---
CASE MANAGEMENT: REVIEW SI: RESPIRATORY FAILURE . SICKLE CELL DISEASE . TRACHEOSTOMY 08/30 T 97.0 HR 70 RR 15 BP 98/67 SAT 99% MECH VENT FIO2 40 WBC 17.5 H/H 7.9/23.4 BUN 54 IS: ZYVOX IV Q12HR KEPPRA IV Q12HR PROTONIX IV Q12HR STEP DOWN UNIT STATUS DCP: PATIENT IS FROM [facility]
--- NOTE | 2020-09-04 11:14 | Infectious Diseases Prog Note ---
Assessment/Plan Assessment/Plan antibiotics : linezolid 9.29.20 - cefepime 9.25.20 - A 1. VRE sepsis 2. serratia pneumonia 3. respiratory failure 4. sickle cell disease 5. anemia 6. leucocytosis improving 7. seizures P 1. d/c iv cefepime 2. continue linezolid 3 more days 3. will follow up cultures Subjective ROS Limited/Unobtainable: Yes Allergies: Coded Allergies: ADHESIVE TAPE (Verified Allergy, Unknown, 07/20/20) Uncoded Allergies: TAPE (Allergy, Unknown, 08/07/20) Objective Last 24 Hour Vital Signs Date Time Temp Pulse Resp B/P (MAP) Pulse Ox O2 Delivery O2 Flow Rate FiO2 09/04/20 08:00 40 09/04/20 08:00 61 09/04/20 08:00 97.0 71 16 98/67 (77) 100 09/04/20 08:00 Mechanical Ventilator Mechanical Ventilator 09/04/20 07:24 74 17 40 09/04/20 04:00 97.3 69 15 106/59 (75) 100 09/04/20 04:00 40 09/04/20 04:00 64 09/04/20 04:00 Mechanical Ventilator Mechanical Ventilator 09/04/20 03:51 72 14 40 09/04/20 00:00 72 09/04/20 00:00 Mechanical Ventilator Mechanical Ventilator 09/04/20 00:00 97.5 72 15 113/64 (80) 99 09/03/20 23:00 64 16 40 09/03/20 21:07 97.0 70 18 116/75 (89) 99 09/03/20 20:00 40 09/03/20 20:00 Mechanical Ventilator Mechanical Ventilator 09/03/20 20:00 97.0 70 17 116/75 (89) 99 09/03/20 20:00 66 09/03/20 19:00 79 17 40 09/03/20 16:00 Mechanical Ventilator Mechanical Ventilator 09/03/20 16:00 98.3 70 18 123/41 (68) 98 09/03/20 16:00 79 09/03/20 16:00 40 09/03/20 15:10 82 19 40 09/03/20 12:36 Mechanical Ventilator Mechanical Ventilator 09/03/20 12:00 98.2 62 18 112/68 (83) 97 09/03/20 12:00 40 09/03/20 12:00 75 Height (Feet): 5 Height (Inches): 8.00 Weight (Pounds): 113 HEENT: status post trach Respiratory/Chest: lungs clear Cardiovascular: normal rate, regular rhythm, no gallop/murmur Abdomen: soft, non tender, other - GT Extremities: no edema, other - left arm PICC Laboratory Tests Test 09/04/20 04:50 White Blood Count 17.5 K/UL (4.8-10.8) H Red Blood Count 2.52 M/UL (4.70-6.10) L Hemoglobin 7.9 G/DL (14.2-18.0) L Hematocrit 23.4 % (42.0-52.0) L Mean Corpuscular Volume 93 FL (80-99) Mean Corpuscular Hemoglobin 31.3 PG (27.0-31.0) H Mean Corpuscular Hemoglobin Concent 33.6 G/DL (32.0-36.0) Red Cell Distribution Width 14.5 % (11.6-14.8) Platelet Count 221 K/UL (150-450) Mean Platelet Volume 7.7 FL (6.5-10.1) Neutrophils (%) (Auto) % (45.0-75.0) Lymphocytes (%) (Auto) % (20.0-45.0) Monocytes (%) (Auto) % (1.0-10.0) Eosinophils (%) (Auto) % (0.0-3.0) Basophils (%) (Auto) % (0.0-2.0) Differential Total Cells Counted 100 Neutrophils % (Manual) 62 % (45-75) Lymphocytes % (Manual) 15 % (20-45) L Monocytes % (Manual) 9 % (1-10) Eosinophils % (Manual) 10 % (0-3) H Basophils % (Manual) 3 % (0-2) H Band Neutrophils 1 % (0-8) Nucleated Red Blood Cells 2 /100 WBC Platelet Estimate Adequate Platelet Morphology Normal Hypochromasia 3+ Anisocytosis 1+ Spherocytes 2+ Sodium Level 142 MMOL/L (136-145) Potassium Level 4.0 MMOL/L (3.5-5.1) Chloride Level 112 MMOL/L (98-107) H Carbon Dioxide Level 20 MMOL/L (21-32) L Anion Gap 10 mmol/L (5-15) Blood Urea Nitrogen 54 mg/dL (7-18) H Creatinine 0.9 MG/DL (0.55-1.30) Estimat Glomerular Filtration Rate > 60 mL/min (>60) Glucose Level 90 MG/DL (74-106) Calcium Level 8.9 MG/DL (8.5-10.1) Current Medications Medications (Trade) Dose Ordered Sig/Piedad Route PRN Reason Start Time Stop Time Status Last Admin Dose Admin Acetaminophen (Tylenol) 650 mg Q4H PRN GT Mild Pain (Pain Scale 1-3) 08/24/20 13:00 09/23/20 12:59 08/28/20 13:40 Acetaminophen (Tylenol) 650 mg Q6H PRN GT Temp >100.5 08/10/20 20:20 09/09/20 20:19 09/01/20 20:43 Chlorhexidine Gluconate (Christy-Hex 2%) 1 applic DAILY@2000 TOPIC 08/14/20 20:00 11/12/20 19:59 09/03/20 20:18 Folic Acid (Folate) 1 mg DAILY GT 08/11/20 09:00 09/07/20 08:59 09/04/20 09:06 Levetiracetam 100 ml @ 400 mls/hr Q12HR IVPB 08/14/20 10:00 11/12/20 09:59 09/04/20 09:07 Linezolid 300 ml @ 300 mls/hr Q12HR IVPB 08/29/20 11:00 09/05/20 10:59 09/04/20 09:07 Metoclopramide HCl (Reglan) 10 mg Q8H PRN IVP Nausea & Vomiting 08/26/20 11:15 09/25/20 11:14 08/27/20 20:46 Morphine Sulfate (Morphine Sulfate) 2 mg Q4H PRN IVP Severe Pain (Pain Scale 7-10) 08/28/20 15:00 09/04/20 14:59 09/03/20 18:23 Multivitamins (Multivitamins) 1 tab DAILY GT 08/11/20 09:00 09/07/20 08:59 09/04/20 09:06 Pantoprazole (Protonix) 40 mg EVERY 12 HOURS IVP 08/13/20 22:15 09/12/20 22:14 09/04/20 09:06 Patient Own Medication (Patient's Own Med) 2 ea TID GT 08/30/20 09:00 09/29/20 08:59 09/04/20 09:07 Patient Own Medication (Patient's Own Med) 3 ea DAILY GT 08/30/20 09:00 09/29/20 08:59 09/04/20 09:07 Ursodiol (Actigall) 300 mg TWICE A DAY ORAL 09/01/20 09:00 11/30/20 08:59 09/04/20 09:06 Isabelle Degroot MD Sep 04, 2020 11:14
--- NOTE | 2020-09-04 11:38 | NUR ---
NURSE NOTES: Dr. Celaya made aware patient hgb today 7.9, per MD no need of transfusion at this time, Will continue to monitor.
--- NOTE | 2020-09-04 11:57 | NUR ---
RD ASSESSMENT & RECOMMENDATIONS SEE CARE ACTIVITY FOR COMPLETE ASSESSMENT DAILY ESTIMATED NEEDS: Needs based on Underweight, Critical care/ 50.8kg 30-35 kcals/kg 6913-7950 total kcals 1.25-2 g protein/kg 64-102 g total protein 25-30 mL/kg 7285-8790 total fluid mLs NUTRITION DIAGNOSIS: Swallowing difficulty R/T respiratory status, dysphagia as evidenced by h/o craniotomy, trach/vent dep, s/p dislodged trach and removal (08/25), s/p trach revision (08/30), on GT feeds. CURRENT TF:Vital 1.2 @ 70ml/hr x 24 hrs ENTERAL NUTRITION RECOMMENDATIONS: Vital AF 1.2 @ 60ml/hr x 24 hrs to provide 1440ml, 1728kcal, 108g prot, 1168ml free water * LOWER goal rate to 60ml/hr x 24 hrs to not exceed est needs -> meets 100% est needs * Increase water flushes: 125ml q 8hrs * HOB over 30 degrees ADDITIONAL RECOMMENDATIONS: * Maintain calibrated bedscale wt * Add probiotics and anti-diarrheal med for diarrhea, +rectal tube * Skin integrity: TF rec @ goal provides 100% RDI * Monitor lytes, replete as needed * Monitor BGs closely for hypo and hyperglycemia (no further episodes of hypoglycemia BG 67 on 08/16) * Increase H2O flushes: BUN trend up
[2020-09-04 12:00] VITALS: BP 105/64
--- NOTE | 2020-09-04 14:24 | Surgery Progress Note ---
Surgery Progress Note Subjective Procedure Performed Tracheostomy Additional Comments comfortable no n/v no complaints incontinence change trach stable Objective Last 24 Hour Vital Signs Date Time Temp Pulse Resp B/P (MAP) Pulse Ox O2 Delivery O2 Flow Rate FiO2 09/04/20 12:00 97.7 84 14 105/64 (78) 99 09/04/20 12:00 40 09/04/20 12:00 Mechanical Ventilator Mechanical Ventilator 09/04/20 12:00 69 09/04/20 08:00 40 09/04/20 08:00 61 09/04/20 08:00 97.0 71 16 98/67 (77) 100 09/04/20 08:00 Mechanical Ventilator Mechanical Ventilator 09/04/20 07:24 74 17 40 09/04/20 04:00 97.3 69 15 106/59 (75) 100 09/04/20 04:00 40 09/04/20 04:00 64 09/04/20 04:00 Mechanical Ventilator Mechanical Ventilator 09/04/20 03:51 72 14 40 09/04/20 00:00 72 09/04/20 00:00 Mechanical Ventilator Mechanical Ventilator 09/04/20 00:00 97.5 72 15 113/64 (80) 99 09/03/20 23:00 64 16 40 09/03/20 21:07 97.0 70 18 116/75 (89) 99 09/03/20 20:00 40 09/03/20 20:00 Mechanical Ventilator Mechanical Ventilator 09/03/20 20:00 97.0 70 17 116/75 (89) 99 09/03/20 20:00 66 09/03/20 19:00 79 17 40 09/03/20 16:00 Mechanical Ventilator Mechanical Ventilator 09/03/20 16:00 98.3 70 18 123/41 (68) 98 09/03/20 16:00 79 09/03/20 16:00 40 09/03/20 15:10 82 19 40 I&O Intake and Output 09/03/20 09/04/20 19:00 07:00 Intake Total 70 ml 1390 ml Output Total 700 ml 1000 ml Balance -630 ml 390 ml Free Water 150 ml IV Total 400 ml Tube Feeding 70 ml 840 ml Output Urine Total 700 ml 1000 ml # Bowel Movements 1 Dressing: other Wound: other Cardiovascular: RSR Respiratory: decreased breath sounds, other Abdomen: soft, non-tender, present bowel sounds, non-distended Extremities: no edema, no tenderness, no cyanosis Laboratory Tests Test 09/04/20 04:50 White Blood Count 17.5 K/UL (4.8-10.8) H Red Blood Count 2.52 M/UL (4.70-6.10) L Hemoglobin 7.9 G/DL (14.2-18.0) L Hematocrit 23.4 % (42.0-52.0) L Mean Corpuscular Volume 93 FL (80-99) Mean Corpuscular Hemoglobin 31.3 PG (27.0-31.0) H Mean Corpuscular Hemoglobin Concent 33.6 G/DL (32.0-36.0) Red Cell Distribution Width 14.5 % (11.6-14.8) Platelet Count 221 K/UL (150-450) Mean Platelet Volume 7.7 FL (6.5-10.1) Neutrophils (%) (Auto) % (45.0-75.0) Lymphocytes (%) (Auto) % (20.0-45.0) Monocytes (%) (Auto) % (1.0-10.0) Eosinophils (%) (Auto) % (0.0-3.0) Basophils (%) (Auto) % (0.0-2.0) Differential Total Cells Counted 100 Neutrophils % (Manual) 62 % (45-75) Lymphocytes % (Manual) 15 % (20-45) L Monocytes % (Manual) 9 % (1-10) Eosinophils % (Manual) 10 % (0-3) H Basophils % (Manual) 3 % (0-2) H Band Neutrophils 1 % (0-8) Nucleated Red Blood Cells 2 /100 WBC Platelet Estimate Adequate Platelet Morphology Normal Hypochromasia 3+ Anisocytosis 1+ Spherocytes 2+ Sodium Level 142 MMOL/L (136-145) Potassium Level 4.0 MMOL/L (3.5-5.1) Chloride Level 112 MMOL/L (98-107) H Carbon Dioxide Level 20 MMOL/L (21-32) L Anion Gap 10 mmol/L (5-15) Blood Urea Nitrogen 54 mg/dL (7-18) H Creatinine 0.9 MG/DL (0.55-1.30) Estimat Glomerular Filtration Rate > 60 mL/min (>60) Glucose Level 90 MG/DL (74-106) Calcium Level 8.9 MG/DL (8.5-10.1) Plan Problems: (1) Pneumonia (2) Sickle cell anemia (3) Tachycardia (4) Severe sepsis (5) Sickle cell crisis (6) Sepsis Assessment & Plan: 35-year-old male sickle cell multiple comorbidities history of craniotomy trach feeding tube prior port infected removed see prior admission and consult and operative notes. Currently presents with significant leukocytosis fevers hypotension in intensive care unit wound site evaluated unlikely etiology. Trach evaluated may consider changing. LFTs noted elevated. Ultrasound ordered pending results trend labs continue IV antibiotics appreciate infectious disease input will follow with recommendations thank you for let me participate in patient's care KUB and US noted labs reviewed transfuse prbc prn trach change peg changed line out picc placed persistent wbc h/h noted anemia ss better since new trach Shiley [address] secretions manageable Trach replaced at bedside 925 for malpositioning it was identified he does have a false track as well. Will ensure trach is in correct positioning daily every shift trach not stable removed and intubated 08/25 on ett vent will need trach revision discussed with mother and medical teams trach and picc s/p trach revision 6 f dxlt downgraded improved d/c plan pulmonary arteries: Evaluation for pulmonary embolus is limited due to breathing motion artifact. No central pulmonary emboli are identified. Aorta: No acute findings. No thoracic aortic aneurysm. Lungs: There are moderately consolidating infiltrates identified in both lower lobes dependently with mild additional patchy infiltrates dependently in both upper lobes. The findings are consistent with bilateral nonspecific pneumonia. Aspiration pneumonia could give this appearance. The infiltrates are only somewhat typical of Covid 19. Confidence is immediate. Pleural space: Unremarkable. No significant effusion. No pneumothorax. Heart: Unremarkable. No cardiomegaly. No significant pericardial effusion. No evidence of RV dysfunction. Bones/joints: No acute fracture. No dislocation. Soft tissues: Unremarkable. Lymph nodes: Unremarkable. No enlarged lymph nodes. Tubes, lines and devices: There is a tracheostomy tube in good position. IMPRESSION: 1. There are moderately consolidating infiltrates identified in both lower lobes dependently with mild additional patchy infiltrates dependently in both upper lobes. The findings are consistent with bilateral nonspecific pneumonia. Aspiration pneumonia could give this appearance. The infiltrates are only somewhat typical of Covid 19. Confidence is immediate. 2. Evaluation for pulmonary embolus is limited due to breathing motion artifact. No central pulmonary emboli are identified. The liver is homogeneous. We cannot identify a normal spleen. There is dense crescentic calcification in the left upper quadrant at the expected location of the spleen. Gallbladder is absent. The pancreas is unremarkable. Adrenals are normal in morphology. There is a small punctate cortical calcification left kidney. No hydronephrosis bilaterally There is a G-tube in place. Gas-filled bowel loops identified throughout the abdomen and pelvis. No discrete transition point or obstruction. Appendix partially visualized. There is some free fluid in the pelvis. There is no free air. There is a mildly prominent lymph nodes noted in the upper to mid retroperitoneum noted of undetermined etiology or significance. Rivera catheter noted in the bladder. The reservoir for the penile prosthesis is identified in the left lower pelvis. There is a right femoral venous catheter in place. Diffuse sclerosis of the bony pelvis and hips noted of undetermined etiology. IMPRESSION: BILATERAL LOWER LOBE PNEUMONIAS. ALSO SOME HAZY INFILTRATES IN THE UPPER LOBES. A NORMAL SPLEEN IS NOT VISUALIZED. THERE IS A DENSE CRESCENTIC CALCIFICATION LEFT UPPER QUADRANT AT THE EXPECTED LOCATION OF THE SPLEEN. 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 PUNCTATE CORTICAL CALCIFICATION LEFT KIDNEY. NO HYDRONEPHROSIS. PROMINENT LYMPH NODES IN THE UPPER TO MID RETROPERITONEUM OF UNDETERMINED ETIOLOGY OR SIGNIFICANCE. G-TUBE, RIVERA CATHETER, RIGHT FEMORAL CATHETER AND PENILE PROSTHESIS NOTED IN PLACE. MILD DIFFUSE SCLEROSIS OF THE BONY PELVIS AND BOTH HIPS OF UNDETERMINED ETIOL OGY. QUESTION HISTORY OF RENAL OSTEODYSTROPHY. There is a large craniectomy defect in the right frontal temporal region. Diffus e age-related volume loss demonstrated. 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 No definite acute infarct seen. There is no hemorrhage, mass effect or shift. Ventricles and cisterns as well as brainstem and posterior fossa appear unremarkable. The sellar region is normal. Sinuses, mastoid air cells and bony calvarium appear intact. IMPRESSION: Large right frontotemporal craniectomy defect. 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 No definite acute intracranial abnormality. (7) Port-A-Cath in place Assessment & Plan: prior removal for infection site okay dressings changed no active infection from wound picc Harman Zhao Sep 04, 2020 14:24
[2020-09-04 16:00] VITALS: BP 103/56
--- NOTE | 2020-09-04 16:23 | General Progress Note ---
Subjective ROS Limited/Unobtainable: Yes Constitutional: Reports: malaise, weakness HEENT: Reports: no symptoms Cardiovascular: Reports: no symptoms Respiratory: Reports: cough, shortness of breath Gastrointestinal/Abdominal: Reports: difficulty swallowing Genitourinary: Reports: no symptoms Neurologic/Psychiatric: Reports: pre-existing deficit, seizure Endocrine: Reports: no symptoms Hematologic/Lymphatic: Reports: anemia Allergies: Coded Allergies: ADHESIVE TAPE (Verified Allergy, Unknown, 07/20/20) Uncoded Allergies: TAPE (Allergy, Unknown, 08/07/20) All Systems: reviewed and negative except above Subjective no events,. watching tv. tolerating feeds. no congestion or sob. labs reviewed d/w mother. concern that pt is no longer responsive. Objective Last 24 Hour Vital Signs Date Time Temp Pulse Resp B/P (MAP) Pulse Ox O2 Delivery O2 Flow Rate FiO2 09/04/20 16:00 Mechanical Ventilator Mechanical Ventilator 09/04/20 16:00 40 09/04/20 12:00 97.7 84 14 105/64 (78) 99 09/04/20 12:00 40 09/04/20 12:00 Mechanical Ventilator Mechanical Ventilator 09/04/20 12:00 69 09/04/20 08:00 40 09/04/20 08:00 61 09/04/20 08:00 97.0 71 16 98/67 (77) 100 09/04/20 08:00 Mechanical Ventilator Mechanical Ventilator 09/04/20 07:24 74 17 40 09/04/20 04:00 97.3 69 15 106/59 (75) 100 09/04/20 04:00 40 09/04/20 04:00 64 09/04/20 04:00 Mechanical Ventilator Mechanical Ventilator 09/04/20 03:51 72 14 40 09/04/20 00:00 72 09/04/20 00:00 Mechanical Ventilator Mechanical Ventilator 09/04/20 00:00 97.5 72 15 113/64 (80) 99 09/03/20 23:00 64 16 40 09/03/20 21:07 97.0 70 18 116/75 (89) 99 09/03/20 20:00 40 09/03/20 20:00 Mechanical Ventilator Mechanical Ventilator 09/03/20 20:00 97.0 70 17 116/75 (89) 99 09/03/20 20:00 66 09/03/20 19:00 79 17 40 Intake and Output 09/03/20 09/04/20 19:00 07:00 Intake Total 70 ml 1390 ml Output Total 700 ml 1000 ml Balance -630 ml 390 ml Free Water 150 ml IV Total 400 ml Tube Feeding 70 ml 840 ml Output Urine Total 700 ml 1000 ml # Bowel Movements 1 Laboratory Tests 09/04/20 04:50: White Blood Count 17.5H, Red Blood Count 2.52L, Hemoglobin 7.9L, Hematocrit 23.4L, Mean Corpuscular Volume 93, Mean Corpuscular Hemoglobin 31.3H, Mean Corpuscular Hemoglobin Concent 33.6, Red Cell Distribution Width 14.5, Platelet Count 221, Mean Platelet Volume 7.7, Neutrophils (%) (Auto) , Lymphocytes (%) (Auto) , Monocytes (%) (Auto) , Eosinophils (%) (Auto) , Basophils (%) (Auto) , Differential Total Cells Counted 100, Neutrophils % (Manual) 62, Lymphocytes % (Manual) 15L, Monocytes % (Manual) 9, Eosinophils % (Manual) 10H, Basophils % (Manual) 3H, Band Neutrophils 1, Nucleated Red Blood Cells 2, Platelet Estimate Adequate, Platelet Morphology Normal, Hypochromasia 3+, Anisocytosis 1+, Spherocytes 2+, Sodium Level 142, Potassium Level 4.0, Chloride Level 112H, Carbon Dioxide Level 20L, Anion Gap 10, Blood Urea Nitrogen 54H, Creatinine 0.9, Estimat Glomerular Filtration Rate > 60, Glucose Level 90, Calcium Level 8.9 Height (Feet): 5 Height (Inches): 8.00 Weight (Pounds): 113 Objective General Appearance: WD/WN, lethargic EENT: normal ENT inspection. trach c/d/i Neck: normal alignment Cardiovascular: normal peripheral pulses, normal rate Respiratory/Chest: chest wall non-tender, lungs clear, normal breath sounds Abdomen: normal bowel sounds, non tender, soft, no organomegaly Edema: no edema noted Arm (L), no edema noted Arm (R) Neurologic: weak/sedated Assessment/Plan Problem List: (1) Pneumonia ICD Codes: J18.9 - Pneumonia, unspecified organism SNOMED: 879139923 Qualifiers: Qualified Codes: J18.9 - Pneumonia, unspecified organism (2) Sickle cell anemia ICD Codes: D57.1 - Sickle-cell disease without crisis SNOMED: 443032376 Qualifiers: Qualified Codes: D57.00 - Hb-SS disease with crisis, unspecified (3) Severe sepsis ICD Codes: A41.9 - Sepsis, unspecified organism; R65.20 - Severe sepsis without septic shock SNOMED: 57194688 Status: stable, not improved Assessment/Plan: cont vent support wean as able monitor abg resp care suctioning as needed trach care dvt/stress ulcer prophylaxis ivf picc care transfuse as needed ivf monitor labs d/w mother Lalo Ahumada MD Sep 04, 2020 16:23
--- NOTE | 2020-09-04 19:23 | NUR ---
NURSE HAND-OFF REPORT: Important Events on Shift: NA Patient Status: stable Diet: Vital AF, out of stock, Osmolite 1.2 @ 40ml/h, goal 60ml/h Pending Orders: na Pending Results/Labs:na Pending notification:na Latest Vital Signs: Temperature 97.9 , Pulse 75 , B/P 103 /56 , Respiratory Rate 15 , O2 SAT 100 , Mechanical Ventilator, O2 Flow Rate . Vital Sign Comment: stable EKG Rhythm: Sinus Rhythm Rhythm change?: N Notified?: James -GRACE JIMENEZ Response: Latest Stevens Fall Score: 35 Fall Risk: Medium Risk Safety Measures: Call light Within Reach, Bed Alarm Zone 2, Side Rails Side Rails x3, Bed position Low and Locked. Fall Precautions: Yellow Socks Yellow Gown Door Sign Patient Fall Education Report given to ARLYN Calles.
--- NOTE | 2020-09-04 19:30 | NUR ---
NURSE NOTES: Got report from Makenzie. Pt resting in bed comfortably, no s/s of distress or discomfort noted at this time. Patient A+Ox0-1 nonverbal opens eyes spontaneously to movement. Trach to vent Shiley 6 AC 12 TV 500 Fio2 50% PEEP 0. GTube feeding Osmolite 1.2@40mL/hr (Goal is 60). Will advance as pt tolerates feeding. Pt has garcia intact draining to gravity. Pt has Left UA PICC intact and patent. Bed in low and locked position, call light within reach, bed alarm on, bedside table within reach. Will continue to monitor.
[2020-09-04 20:00] VITALS: BP 109/60
[2020-09-04] MEDS: Dyna-Hex 2% Top Sol 2oz TOPIC SCH (20:00)
[2020-09-04] MEDS: levETIRAcetam 500mg/5ml Liquid NG SCH (21:16)
--- NOTE | 2020-09-04 23:00 | General Progress Note ---
Subjective Allergies: Coded Allergies: ADHESIVE TAPE (Verified Allergy, Unknown, 07/20/20) Uncoded Allergies: TAPE (Allergy, Unknown, 08/07/20) Subjective calm and comfortable tolerating feeds feeds changed to to an in-house shortage Objective Last 24 Hour Vital Signs Date Time Temp Pulse Resp B/P (MAP) Pulse Ox O2 Delivery O2 Flow Rate FiO2 09/04/20 20:00 63 09/04/20 20:00 97.7 67 16 109/60 (76) 100 09/04/20 18:39 75 15 40 09/04/20 16:00 Mechanical Ventilator Mechanical Ventilator 09/04/20 16:00 67 09/04/20 16:00 40 09/04/20 16:00 97.9 66 18 103/56 (72) 100 09/04/20 15:21 72 15 40 09/04/20 12:00 97.7 84 14 105/64 (78) 99 09/04/20 12:00 40 09/04/20 12:00 Mechanical Ventilator Mechanical Ventilator 09/04/20 12:00 69 09/04/20 11:26 85 18 40 09/04/20 08:00 40 09/04/20 08:00 61 09/04/20 08:00 97.0 71 16 98/67 (77) 100 09/04/20 08:00 Mechanical Ventilator Mechanical Ventilator 09/04/20 07:24 74 17 40 09/04/20 04:00 97.3 69 15 106/59 (75) 100 09/04/20 04:00 40 09/04/20 04:00 64 09/04/20 04:00 Mechanical Ventilator Mechanical Ventilator 09/04/20 03:51 72 14 40 09/04/20 00:00 72 09/04/20 00:00 Mechanical Ventilator Mechanical Ventilator 09/04/20 00:00 97.5 72 15 113/64 (80) 99 09/03/20 23:00 64 16 40 Intake and Output 09/03/20 09/04/20 19:00 07:00 Intake Total 70 ml 1390 ml Output Total 700 ml 1000 ml Balance -630 ml 390 ml Free Water 150 ml IV Total 400 ml Tube Feeding 70 ml 840 ml Output Urine Total 700 ml 1000 ml # Bowel Movements 1 Laboratory Tests 09/04/20 04:50: White Blood Count 17.5H, Red Blood Count 2.52L, Hemoglobin 7.9L, Hematocrit 23.4L, Mean Corpuscular Volume 93, Mean Corpuscular Hemoglobin 31.3H, Mean Corpuscular Hemoglobin Concent 33.6, Red Cell Distribution Width 14.5, Platelet Count 221, Mean Platelet Volume 7.7, Neutrophils (%) (Auto) , Lymphocytes (%) (Auto) , Monocytes (%) (Auto) , Eosinophils (%) (Auto) , Basophils (%) (Auto) , Differential Total Cells Counted 100, Neutrophils % (Manual) 62, Lymphocytes % (Manual) 15L, Monocytes % (Manual) 9, Eosinophils % (Manual) 10H, Basophils % (Manual) 3H, Band Neutrophils 1, Nucleated Red Blood Cells 2, Platelet Estimate Adequate, Platelet Morphology Normal, Hypochromasia 3+, Anisocytosis 1+, Spherocytes 2+, Sodium Level 142, Potassium Level 4.0, Chloride Level 112H, Carbon Dioxide Level 20L, Anion Gap 10, Blood Urea Nitrogen 54H, Creatinine 0.9, Estimat Glomerular Filtration Rate > 60, Glucose Level 90, Calcium Level 8.9 Height (Feet): 5 Height (Inches): 8.00 Weight (Pounds): 113 Objective Thin AA Man HEENT s/p craniotomy, (+) ETT neck (+) dressing Coarse BS, ronchi, tachypnic RR/tachy abd soft (+) GT no edema Assessment/Plan Status: stable, not improved Assessment/Plan: Assessment - respiratory distress - intubated - recent occluded GT - replaced - abnormal LFT - 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
[2020-09-05] VITALS: BP 128/78
[2020-09-05 04:00] VITALS: BP 108/63
[2020-09-05 04:26] LABS: BASOPHILS % (AUTO) 2.3 % (0.0-2.0); EOSINOPHILS % (AUTO) 7.6 % (0.0-3.0); HEMATOCRIT 24.8 % (42.0-52.0); HEMOGLOBIN 8.5 G/DL (14.2-18.0); LYMPHOCYTES % (AUTO) 19.4 % (20.0-45.0); MEAN CORPUSCULAR VOLUME 92 FL (80-99); MONOCYTES % (AUTO) 9.7 % (1.0-10.0); PLATELET COUNT 255 K/UL (150-450); RED BLOOD COUNT 2.69 M/UL (4.70-6.10); RED CELL DISTRIBUTION WIDTH 14.9 % (11.6-14.8); WHITE BLOOD COUNT 17.7 K/UL (4.8-10.8)
[2020-09-05 04:49] LABS: ALANINE AMINOTRANSFERASE 53 U/L (12-78); ALBUMIN 2.9 G/DL (3.4-5.0); ALBUMIN/GLOBULIN RATIO 0.6 (1.0-2.7); ALKALINE PHOSPHATASE 368 U/L (46-116); ASPARTATE AMINO TRANSFERASE 42 U/L (15-37); BILIRUBIN,TOTAL 1.2 MG/DL (0.2-1.0); BLOOD UREA NITROGEN 62 mg/dL (7-18); CALCIUM 9.3 MG/DL (8.5-10.1); CARBON DIOXIDE 21 MMOL/L (21-32)
[2020-09-05 05:28] LABS: BILIRUBIN,DIRECT 0.6 MG/DL (0.0-0.3); CHLORIDE 110 MMOL/L (98-107); POTASSIUM 4.1 MMOL/L (3.5-5.1); SODIUM 139 MMOL/L (136-145)
--- NOTE | 2020-09-05 06:55 | Hematology/Onc Progress Note ---
Assessment/Plan Assessment/Plan Assessment and Recs # Sickle cell crisis noted upon admission, with hx of sickle cell anemia --> hgb 6.5-->7.1-->6.6->>>>7.3-->7.1 -->6.7-->6.5-->6.8->7-->7.2->6.5-->6.7-->6.5->5.3-->7.8->8.4-->8.5 --> 1 unit prbc on 07/23, 1 unit 08/27, 2 units prbc 08/31 --> ivfs have been started --> anemia panel ordered, with elev ferritin --> recommend to consider hydrea when discharged if stable --> likely does have mild hemolysis --> hgb electrophoresis show evidence of sickle cell trait --> FLOW CYTOMETRY IS NEGATIVE # Hyperferritinemia with elevated ferritin that was noted --> likely consider exjade once discharged though at this time not limiting --> ferritin can >2000 with recurrent transfusions --> trend over time, for EOD observe --> 08/30 deferasirox and ferriprox started # Leukocytosis poa with Severe sepsis due to line infection --> abx: vancomycin-->cefepime/colistin-->cefepime--linezolid --> wbc 25-->31-->29-->25-->37--->31-->24->19-->18-->17 --> FLOW CYTOMETRY NEG # Respiratory failure s/p Ventilator dependent --> as per pulm, vent adjustment # Port-A-Cath in place --> s/p abx --> s/p permacath removal # Transaminitis -->liver function elevated --> per gi # Dt ppx scds The timing of this note does not necessarily reflect the time of the patient was seen. Greatly appreciate consultation. Subjective Allergies: Coded Allergies: ADHESIVE TAPE (Verified Allergy, Unknown, 07/20/20) Uncoded Allergies: TAPE (Allergy, Unknown, 08/07/20) All Systems: reviewed and negative except above Subjective 08/19 no acute events, vent, iv abx, labs reviewed 08/20 labs reviewed, seen by Dr. Celaya and mychal Rn, holding off prbc 08/21 remains on abx with persistently elev wbc, on abx broad spectrum 08/22 labs reviewed, no bleeding, meds noted, wbc still 25k, hgb 6.8, transfuse pr 08/23 cbc has been ordered, meds noted, on cefepime, have mychal path is flow back 08/24 hob is elevated, labs noted, hgb 7, consider for transfusions soon, wbc is better 08/25 labs are reviewed, wbc is worse, flow was done and is negative 08/27 is in the icu, labs noted, on cefepime and vanc, wbc 31 08/29 labs reviewed, hgb 6.7, mychal Feldman in am, no bleeding, seen with Belia 08/30 remains on vent, have restart home chelating agents, hgb 6.5 08/31 feeling better, hgb 5.3, have mychal Avalos Artemio to get 2 units prbc stat 09/01 labs are noted, wbc 19, hgb 7.8, no hemolysis, meds reviewed 09/03 labs are noted, wbc 18, on cefepime, hgb better hgb 8.4 09/04 labs noted, no bleeding, cbc is pending, on abx 09/05 remains on abx, hgb 8.5, holding off transfusion, nv, on vent, gt Objective Objective Current Medications Medications (Trade) Dose Ordered Sig/Piedad Route PRN Reason Start Time Stop Time Status Last Admin Dose Admin Acetaminophen (Tylenol) 650 mg Q4H PRN GT Mild Pain (Pain Scale 1-3) 08/24/20 13:00 09/23/20 12:59 08/28/20 13:40 Acetaminophen (Tylenol) 650 mg Q6H PRN GT Temp >100.5 08/10/20 20:20 09/09/20 20:19 09/01/20 20:43 Chlorhexidine Gluconate (Christy-Hex 2%) 1 applic DAILY@1999 TOPIC 08/14/20 20:00 11/12/20 19:59 09/04/20 20:00 Folic Acid (Folate) 1 mg DAILY GT 08/11/20 09:00 09/07/20 08:59 09/04/20 09:06 Levetiracetam (Keppra) 500 mg Q12HR NG 09/04/20 21:00 10/04/20 20:59 09/04/20 21:16 Linezolid 300 ml @ 300 mls/hr Q12HR IVPB 08/29/20 11:00 09/07/20 10:59 09/04/20 21:15 Metoclopramide HCl (Reglan) 10 mg Q8H PRN IVP Nausea & Vomiting 08/26/20 11:15 09/25/20 11:14 08/27/20 20:46 Multivitamins (Multivitamins) 1 tab DAILY GT 08/11/20 09:00 09/07/20 08:59 09/04/20 09:06 Pantoprazole (Protonix) 40 mg EVERY 12 HOURS IVP 08/13/20 22:15 09/12/20 22:14 09/04/20 21:15 Patient Own Medication (Patient's Own Med) 2 ea TID GT 08/30/20 09:00 09/29/20 08:59 09/04/20 17:12 Patient Own Medication (Patient's Own Med) 3 ea DAILY GT 08/30/20 09:00 09/29/20 08:59 09/04/20 09:07 Ursodiol (Actigall) 300 mg TWICE A DAY ORAL 09/01/20 09:00 11/30/20 08:59 09/04/20 17:12 Last 24 Hour Vital Signs Date Time Temp Pulse Resp B/P (MAP) Pulse Ox O2 Delivery O2 Flow Rate FiO2 09/05/20 04:00 Mechanical Ventilator Mechanical Ventilator 09/05/20 04:00 40 09/05/20 04:00 97.7 67 17 108/63 (78) 99 09/05/20 04:00 60 09/05/20 02:43 64 19 40 09/05/20 00:00 40 09/05/20 00:00 97.7 87 19 128/78 (95) 100 09/05/20 00:00 73 09/05/20 00:00 Mechanical Ventilator Mechanical Ventilator 09/04/20 22:40 72 12 40 09/04/20 21:00 Mechanical Ventilator Mechanical Ventilator 09/04/20 20:00 63 09/04/20 20:00 40 09/04/20 20:00 97.7 67 16 109/60 (76) 100 09/04/20 18:39 75 15 40 09/04/20 16:00 Mechanical Ventilator Mechanical Ventilator 09/04/20 16:00 67 09/04/20 16:00 40 09/04/20 16:00 97.9 66 18 103/56 (72) 100 09/04/20 15:21 72 15 40 09/04/20 12:00 97.7 84 14 105/64 (78) 99 09/04/20 12:00 40 09/04/20 12:00 Mechanical Ventilator Mechanical Ventilator 09/04/20 12:00 69 09/04/20 11:26 85 18 40 09/04/20 08:00 40 09/04/20 08:00 61 09/04/20 08:00 97.0 71 16 98/67 (77) 100 09/04/20 08:00 Mechanical Ventilator Mechanical Ventilator 09/04/20 07:24 74 17 40 09/04/20 04:00 97.3 69 15 106/59 (75) 100 09/04/20 04:00 40 09/04/20 04:00 64 09/04/20 04:00 Mechanical Ventilator Mechanical Ventilator 09/04/20 03:51 72 14 40 09/04/20 00:00 72 09/04/20 00:00 Mechanical Ventilator Mechanical Ventilator 09/04/20 00:00 97.5 72 15 113/64 (80) 99 09/03/20 23:00 64 16 40 09/03/20 21:07 97.0 70 18 116/75 (89) 99 09/03/20 20:00 40 09/03/20 20:00 Mechanical Ventilator Mechanical Ventilator 09/03/20 20:00 97.0 70 17 116/75 (89) 99 09/03/20 20:00 66 09/03/20 19:00 79 17 40 09/03/20 16:00 Mechanical Ventilator Mechanical Ventilator 09/03/20 16:00 98.3 70 18 123/41 (68) 98 09/03/20 16:00 79 09/03/20 16:00 40 09/03/20 15:10 82 19 40 09/03/20 12:36 Mechanical Ventilator Mechanical Ventilator 09/03/20 12:00 98.2 62 18 112/68 (83) 97 09/03/20 12:00 40 09/03/20 12:00 75 09/03/20 11:10 71 19 40 09/03/20 08:00 57 09/03/20 08:00 97.8 60 18 116/71 (86) 97 09/03/20 07:38 40 09/03/20 07:35 Mechanical Ventilator Mechanical Ventilator 09/03/20 07:27 78 13 40 Intake and Output 09/04/20 09/05/20 19:00 07:00 Intake Total 980 ml 50 ml Output Total 1100 ml 1500 ml Balance -120 ml -1450 ml Free Water 60 ml IV Total 400 ml Tube Feeding 520 ml 50 ml Output Urine Total 1100 ml 1500 ml # Bowel Movements 2 Labs Test 09/03/20 05:00 09/04/20 04:50 09/05/20 04:10 White Blood Count 18.6 K/UL (4.8-10.8) 17.5 K/UL (4.8-10.8) 17.7 K/UL (4.8-10.8) Red Blood Count 2.64 M/UL (4.70-6.10) 2.52 M/UL (4.70-6.10) 2.69 M/UL (4.70-6.10) Hemoglobin 8.4 G/DL (14.2-18.0) 7.9 G/DL (14.2-18.0) 8.5 G/DL (14.2-18.0) Hematocrit 24.5 % (42.0-52.0) 23.4 % (42.0-52.0) 24.8 % (42.0-52.0) Mean Corpuscular Volume 93 FL (80-99) 93 FL (80-99) 92 FL (80-99) Mean Corpuscular Hemoglobin 31.7 PG (27.0-31.0) 31.3 PG (27.0-31.0) 31.5 PG (27.0-31.0) Mean Corpuscular Hemoglobin Concent 34.1 G/DL (32.0-36.0) 33.6 G/DL (32.0-36.0) 34.2 G/DL (32.0-36.0) Red Cell Distribution Width 15.3 % (11.6-14.8) 14.5 % (11.6-14.8) 14.9 % (11.6-14.8) Platelet Count 265 K/UL (150-450) 221 K/UL (150-450) 255 K/UL (150-450) Mean Platelet Volume 8.0 FL (6.5-10.1) 7.7 FL (6.5-10.1) 7.6 FL (6.5-10.1) Neutrophils (%) (Auto) % (45.0-75.0) % (45.0-75.0) 61.0 % (45.0-75.0) Lymphocytes (%) (Auto) % (20.0-45.0) % (20.0-45.0) 19.4 % (20.0-45.0) Monocytes (%) (Auto) % (1.0-10.0) % (1.0-10.0) 9.7 % (1.0-10.0) Eosinophils (%) (Auto) % (0.0-3.0) % (0.0-3.0) 7.6 % (0.0-3.0) Basophils (%) (Auto) % (0.0-2.0) % (0.0-2.0) 2.3 % (0.0-2.0) Differential Total Cells Counted 100 100 Neutrophils % (Manual) 55 % (45-75) 62 % (45-75) Lymphocytes % (Manual) 18 % (20-45) 15 % (20-45) Monocytes % (Manual) 15 % (1-10) 9 % (1-10) Eosinophils % (Manual) 10 % (0-3) 10 % (0-3) Basophils % (Manual) 2 % (0-2) 3 % (0-2) Band Neutrophils 0 % (0-8) 1 % (0-8) Platelet Estimate Adequate Adequate Platelet Morphology Normal Normal Hypochromasia 2+ 3+ Anisocytosis 1+ 1+ Sodium Level 138 MMOL/L (136-145) 142 MMOL/L (136-145) 139 MMOL/L (136-145) Potassium Level 3.9 MMOL/L (3.5-5.1) 4.0 MMOL/L (3.5-5.1) 4.1 MMOL/L (3.5-5.1) Chloride Level 109 MMOL/L (98-107) 112 MMOL/L (98-107) 110 MMOL/L (98-107) Carbon Dioxide Level 20 MMOL/L (21-32) 20 MMOL/L (21-32) 21 MMOL/L (21-32) Anion Gap 9 mmol/L (5-15) 10 mmol/L (5-15) Blood Urea Nitrogen 44 mg/dL (7-18) 54 mg/dL (7-18) 62 mg/dL (7-18) Creatinine 1.0 MG/DL (0.55-1.30) 0.9 MG/DL (0.55-1.30) 1.0 MG/DL (0.55-1.30) Estimat Glomerular Filtration Rate > 60 mL/min (>60) > 60 mL/min (>60) > 60 mL/min (>60) Glucose Level 99 MG/DL (74-106) 90 MG/DL (74-106) 120 MG/DL (74-106) Calcium Level 9.2 MG/DL (8.5-10.1) 8.9 MG/DL (8.5-10.1) 9.3 MG/DL (8.5-10.1) Total Bilirubin 1.0 MG/DL (0.2-1.0) 1.2 MG/DL (0.2-1.0) Aspartate Amino Transf (AST/SGOT) 41 U/L (15-37) 42 U/L (15-37) Alanine Aminotransferase (ALT/SGPT) 52 U/L (12-78) 53 U/L (12-78) Alkaline Phosphatase 373 U/L (46-116) 368 U/L (46-116) Total Protein 7.9 G/DL (6.4-8.2) 8.1 G/DL (6.4-8.2) Albumin 2.6 G/DL (3.4-5.0) 2.9 G/DL (3.4-5.0) Globulin 5.3 g/dL 5.2 g/dL Albumin/Globulin Ratio 0.5 (1.0-2.7) 0.6 (1.0-2.7) Nucleated Red Blood Cells 2 /100 WBC Spherocytes 2+ Direct Bilirubin 0.6 MG/DL (0.0-0.3) Height (Feet): 5 Height (Inches): 8.00 Weight (Pounds): 113 Objective Physical Exam General: alert, Chronically Ill Head: other - Large right-sided craniotomy defect well-heale ++, tracheotomy/vent Respiratory: crackles, rales, other - right side chest wall tenderness Cardiovascular: tachycardia Gastrointestinal: normal inspection, soft, gt++ Musk: decreased range of motion, other - atrophic, motor weakness Neurologic: alert, motor weakness, other - left hemineglect Psychiatric: normal inspection Skin: no rash : garcia++ Roshan Castillo MD Sep 05, 2020 06:55
--- NOTE | 2020-09-05 07:35 | NUR ---
NURSE HAND-OFF REPORT: Important Events on Shift:[] Patient Status: [Stable] Diet: [Osmolite 1.2@50] Pending Orders: [] Pending Results/Labs:[Labs AM] Pending MD notification:[] Latest Vital Signs: Temperature 97.7 , Pulse 67 , B/P 108 /63 , Respiratory Rate 17 , O2 SAT 99 , Mechanical Ventilator, O2 Flow Rate . Vital Sign Comment: [] EKG Rhythm: Sinus Rhythm Rhythm change?: N MD Notified?: James DAVIES MD Response: Latest Stevens Fall Score: 35 Fall Risk: Medium Risk Safety Measures: Call light Within Reach, Bed Alarm Zone 2, Side Rails Side Rails x3, Bed position Low and Locked. Fall Precautions: Yellow Socks Yellow Gown Door Sign Patient Fall Education Report given to [Diana STODDARD].
--- NOTE | 2020-09-05 07:37 | NUR ---
NURSE NOTES: Received report from ARLYN Calles. Patient in bed resting, no active s/s cardiac, respiratory distress noticed at this time. Patient open eyes spontaneously, does not follow command, SB with HR 58. Trach to vent Shiley 6 AC 12 TV 500 Fio2 40% PEEP 0. GT feeding Osmolite 1.2 @50 running as substitution for vital AF. PICC on left upper arm, intact and patent. Overton Catheter draining well to gravity at this time. Bed in lowest position, side rails upx3, call light within reach, bed alarm on, Will continue to monitor.
[2020-09-05 08:00] VITALS: BP 119/78
--- NOTE | 2020-09-05 08:00 | Critical Care Progress Note ---
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 Port-A-Cath Status post removal of implanted right chest wall Port-A-Cath Sickle cell crisis Sickle cell anemia Chronic respiratory failure, ventilator dependent, with tracheostomy status Transaminitis Seizure disorder acute pneumonia leukocytosis recurrent sepsis PLAN care noted d/w surgery IV antibiotics per ID respiratory care as is Ventilatory support- volume ventilation as is oxygen adequate SNF meds supportive care suction no wean planned prognosis guarded medications/laboratory data/nursing notes reviewed in detail note reviewed and edited care discussed with RN and RT Critical Care - Subjective I&O: Intake and Output 09/04/20 09/05/20 19:00 07:00 Intake Total 980 ml 50 ml Output Total 1100 ml 1500 ml Balance -120 ml -1450 ml Free Water 60 ml IV Total 400 ml Tube Feeding 520 ml 50 ml Output Urine Total 1100 ml 1500 ml # Bowel Movements 2 Critical Care - Objective ET-Tube: 7.0 ET Position: 23 Last 24 Hour Vital Signs Date Time Temp Pulse Resp B/P (MAP) Pulse Ox O2 Delivery O2 Flow Rate FiO2 09/05/20 04:00 Mechanical Ventilator Mechanical Ventilator 09/05/20 04:00 40 09/05/20 04:00 97.7 67 17 108/63 (78) 99 09/05/20 04:00 60 09/05/20 02:43 64 19 40 09/05/20 00:00 40 09/05/20 00:00 97.7 87 19 128/78 (95) 100 09/05/20 00:00 73 09/05/20 00:00 Mechanical Ventilator Mechanical Ventilator 09/04/20 22:40 72 12 40 09/04/20 21:00 Mechanical Ventilator Mechanical Ventilator 09/04/20 20:00 63 09/04/20 20:00 40 09/04/20 20:00 97.7 67 16 109/60 (76) 100 09/04/20 18:39 75 15 40 09/04/20 16:00 Mechanical Ventilator Mechanical Ventilator 09/04/20 16:00 67 09/04/20 16:00 40 09/04/20 16:00 97.9 66 18 103/56 (72) 100 09/04/20 15:21 72 15 40 09/04/20 12:00 97.7 84 14 105/64 (78) 99 09/04/20 12:00 40 09/04/20 12:00 Mechanical Ventilator Mechanical Ventilator 09/04/20 12:00 69 09/04/20 11:26 85 18 40 Objective: WDWN NAD reduced breath sounds bilaterally without rhonchi or wheeze [id number] without MRG NABS nontender GT no CCE reduced LOC James Nuñez MD Sep 05, 2020 08:00
[2020-09-05] MEDS: FERRIPROX GT SCH ×3 (08:20→17:13)
[2020-09-05] MEDS: DEFERASIROX 360 MG GT SCH (08:20)
[2020-09-05] MEDS: levETIRAcetam 500mg/5ml Liquid NG SCH ×2 (08:21→21:00)
[2020-09-05] MEDS: Linezolid 600mg/300ml (Pre-Mix) IVPB SCH ×2 (08:21→21:00)
[2020-09-05] MEDS: Ursodiol 300mg cap ORAL SCH ×2 (08:21→17:13)
[2020-09-05] MEDS: Pantoprazole Inj IVP SCH ×2 (08:21→21:00)
--- NOTE | 2020-09-05 09:37 | General Progress Note ---
Subjective ROS Limited/Unobtainable: Yes Constitutional: Reports: malaise, weakness HEENT: Reports: no symptoms Cardiovascular: Reports: no symptoms Respiratory: Reports: cough, sputum Gastrointestinal/Abdominal: Reports: difficulty swallowing Genitourinary: Reports: no symptoms Neurologic/Psychiatric: Reports: pre-existing deficit, seizure Endocrine: Reports: no symptoms Hematologic/Lymphatic: Reports: no symptoms Allergies: Coded Allergies: ADHESIVE TAPE (Verified Allergy, Unknown, 07/20/20) Uncoded Allergies: TAPE (Allergy, Unknown, 08/07/20) All Systems: reviewed and negative except above Subjective d/w mother. concerned pt is lethargic and poorly responsive again. somnolent and drowsy. does not follow commands. no reports of szs. remains on iv abx. tolerating tube feeds Objective Last 24 Hour Vital Signs Date Time Temp Pulse Resp B/P (MAP) Pulse Ox O2 Delivery O2 Flow Rate FiO2 09/05/20 04:00 Mechanical Ventilator Mechanical Ventilator 09/05/20 04:00 40 09/05/20 04:00 97.7 67 17 108/63 (78) 99 09/05/20 04:00 60 09/05/20 02:43 64 19 40 09/05/20 00:00 40 09/05/20 00:00 97.7 87 19 128/78 (95) 100 09/05/20 00:00 73 09/05/20 00:00 Mechanical Ventilator Mechanical Ventilator 09/04/20 22:40 72 12 40 09/04/20 21:00 Mechanical Ventilator Mechanical Ventilator 09/04/20 20:00 63 09/04/20 20:00 40 09/04/20 20:00 97.7 67 16 109/60 (76) 100 09/04/20 18:39 75 15 40 09/04/20 16:00 Mechanical Ventilator Mechanical Ventilator 09/04/20 16:00 67 09/04/20 16:00 40 09/04/20 16:00 97.9 66 18 103/56 (72) 100 09/04/20 15:21 72 15 40 09/04/20 12:00 97.7 84 14 105/64 (78) 99 09/04/20 12:00 40 09/04/20 12:00 Mechanical Ventilator Mechanical Ventilator 09/04/20 12:00 69 09/04/20 11:26 85 18 40 Intake and Output 09/04/20 09/05/20 19:00 07:00 Intake Total 980 ml 50 ml Output Total 1100 ml 1500 ml Balance -120 ml -1450 ml Free Water 60 ml IV Total 400 ml Tube Feeding 520 ml 50 ml Output Urine Total 1100 ml 1500 ml # Bowel Movements 2 Laboratory Tests 09/05/20 04:10: White Blood Count 17.7H, Red Blood Count 2.69L, Hemoglobin 8.5L, Hematocrit 24.8L, Mean Corpuscular Volume 92, Mean Corpuscular Hemoglobin 31.5H, Mean Corpuscular Hemoglobin Concent 34.2, Red Cell Distribution Width 14.9H, Platelet Count 255, Mean Platelet Volume 7.6, Neutrophils (%) (Auto) 61.0, Lymphocytes (%) (Auto) 19.4L, Monocytes (%) (Auto) 9.7, Eosinophils (%) (Auto) 7.6H, Basophils (%) (Auto) 2.3H, Sodium Level 139, Potassium Level 4.1, Chloride Level 110H, Carbon Dioxide Level 21, Blood Urea Nitrogen 62H, Creatinine 1.0, Estimat Glomerular Filtration Rate > 60, Glucose Level 120H, Calcium Level 9.3, Total Bilirubin 1.2H, Direct Bilirubin 0.6H, Aspartate Amino Transf (AST/SGOT) 42H, A lanine Aminotransferase (ALT/SGPT) 53, Alkaline Phosphatase 368H, Total Protein 8.1, Albumin 2.9L, Globulin 5.2, Albumin/Globulin Ratio 0.6L Height (Feet): 5 Height (Inches): 8.00 Weight (Pounds): 113 Objective General Appearance: WD/WN, lethargic EENT: normal ENT inspection. trach c/d/i Neck: normal alignment Cardiovascular: normal peripheral pulses, normal rate Respiratory/Chest: chest wall non-tender, lungs clear, normal breath sounds Abdomen: normal bowel sounds, non tender, soft, no organomegaly Edema: no edema noted Arm (L), no edema noted Arm (R) Neurologic: poorly responsive Assessment/Plan Problem List: (1) Pneumonia ICD Codes: J18.9 - Pneumonia, unspecified organism SNOMED: 961460381 Qualifiers: Qualified Codes: J18.9 - Pneumonia, unspecified organism (2) Sickle cell anemia ICD Codes: D57.1 - Sickle-cell disease without crisis SNOMED: 227584631 Qualifiers: Qualified Codes: D57.00 - Hb-SS disease with crisis, unspecified (3) Severe sepsis ICD Codes: A41.9 - Sepsis, unspecified organism; R65.20 - Severe sepsis without septic shock SNOMED: 51804650 Status: stable, not improved Assessment/Plan: cont vent support wean as able monitor abg resp care suctioning as needed trach care dvt/stress ulcer prophylaxis ivf picc care transfuse as needed ivf on incorrect dose of keppra(1000 instead of 500) dose adjusted backt o 500 d/w mother Lalo Ahumada MD Sep 05, 2020 09:37
--- NOTE | 2020-09-05 10:38 | NUR ---
CASE MANAGEMENT: REVIEW SI: RESPIRATORY FAILURE . SICKLE CELL DISEASE . TRACHEOSTOMY 08/30 T 97.2 HR 58 RR 16 BP 119/78 SAT 100% MECH VENT FIO2 40 WBC 17.78 H/H 8.5/24.8 BUN 62 ALK PHOS 368 IS: ZYVOX IV Q12HR KEPPRA GT Q12HR PROTONIX IV Q12HR GT FEEDING STEP DOWN UNIT STATUS DCP: PATIENT IS FROM [facility]
--- NOTE | 2020-09-05 10:57 | Infectious Diseases Prog Note ---
Assessment/Plan Assessment/Plan antibiotics : linezolid 9.29.20 - A 1. VRE sepsis 2. serratia pneumonia 3. respiratory failure 4. sickle cell disease 5. anemia 6. leucocytosis improving 7. seizures P 1. continue linezolid 2 more days 2. will follow up cultures Subjective ROS Limited/Unobtainable: Yes Allergies: Coded Allergies: ADHESIVE TAPE (Verified Allergy, Unknown, 07/20/20) Uncoded Allergies: TAPE (Allergy, Unknown, 08/07/20) Objective Last 24 Hour Vital Signs Date Time Temp Pulse Resp B/P (MAP) Pulse Ox O2 Delivery O2 Flow Rate FiO2 09/05/20 08:00 97.2 58 16 119/78 (92) 100 09/05/20 08:00 40 09/05/20 08:00 Mechanical Ventilator Mechanical Ventilator 09/05/20 07:20 58 19 40 09/05/20 04:00 Mechanical Ventilator Mechanical Ventilator 09/05/20 04:00 40 09/05/20 04:00 97.7 67 17 108/63 (78) 99 09/05/20 04:00 60 09/05/20 02:43 64 19 40 09/05/20 00:00 40 09/05/20 00:00 97.7 87 19 128/78 (95) 100 09/05/20 00:00 73 09/05/20 00:00 Mechanical Ventilator Mechanical Ventilator 09/04/20 22:40 72 12 40 09/04/20 21:00 Mechanical Ventilator Mechanical Ventilator 09/04/20 20:00 63 09/04/20 20:00 40 09/04/20 20:00 97.7 67 16 109/60 (76) 100 09/04/20 18:39 75 15 40 09/04/20 16:00 Mechanical Ventilator Mechanical Ventilator 09/04/20 16:00 67 09/04/20 16:00 40 09/04/20 16:00 97.9 66 18 103/56 (72) 100 09/04/20 15:21 72 15 40 09/04/20 12:00 97.7 84 14 105/64 (78) 99 09/04/20 12:00 40 09/04/20 12:00 Mechanical Ventilator Mechanical Ventilator 09/04/20 12:00 69 09/04/20 11:26 85 18 40 Height (Feet): 5 Height (Inches): 8.00 Weight (Pounds): 113 HEENT: status post trach Respiratory/Chest: lungs clear Cardiovascular: normal rate, regular rhythm, no gallop/murmur Abdomen: soft, non tender Extremities: no edema, other - left arm PICC Laboratory Tests Test 09/05/20 04:10 White Blood Count 17.7 K/UL (4.8-10.8) H Red Blood Count 2.69 M/UL (4.70-6.10) L Hemoglobin 8.5 G/DL (14.2-18.0) L Hematocrit 24.8 % (42.0-52.0) L Mean Corpuscular Volume 92 FL (80-99) Mean Corpuscular Hemoglobin 31.5 PG (27.0-31.0) H Mean Corpuscular Hemoglobin Concent 34.2 G/DL (32.0-36.0) Red Cell Distribution Width 14.9 % (11.6-14.8) H Platelet Count 255 K/UL (150-450) Mean Platelet Volume 7.6 FL (6.5-10.1) Neutrophils (%) (Auto) 61.0 % (45.0-75.0) Lymphocytes (%) (Auto) 19.4 % (20.0-45.0) L Monocytes (%) (Auto) 9.7 % (1.0-10.0) Eosinophils (%) (Auto) 7.6 % (0.0-3.0) H Basophils (%) (Auto) 2.3 % (0.0-2.0) H Sodium Level 139 MMOL/L (136-145) Potassium Level 4.1 MMOL/L (3.5-5.1) Chloride Level 110 MMOL/L (98-107) H Carbon Dioxide Level 21 MMOL/L (21-32) Blood Urea Nitrogen 62 mg/dL (7-18) H Creatinine 1.0 MG/DL (0.55-1.30) Estimat Glomerular Filtration Rate > 60 mL/min (>60) Glucose Level 120 MG/DL (74-106) H Calcium Level 9.3 MG/DL (8.5-10.1) Total Bilirubin 1.2 MG/DL (0.2-1.0) H Direct Bilirubin 0.6 MG/DL (0.0-0.3) H Aspartate Amino Transf (AST/SGOT) 42 U/L (15-37) H Alanine Aminotransferase (ALT/SGPT) 53 U/L (12-78) Alkaline Phosphatase 368 U/L (46-116) H Total Protein 8.1 G/DL (6.4-8.2) Albumin 2.9 G/DL (3.4-5.0) L Globulin 5.2 g/dL Albumin/Globulin Ratio 0.6 (1.0-2.7) L Current Medications Medications (Trade) Dose Ordered Sig/Piedad Route PRN Reason Start Time Stop Time Status Last Admin Dose Admin Acetaminophen (Tylenol) 650 mg Q4H PRN GT Mild Pain (Pain Scale 1-3) 08/24/20 13:00 09/23/20 12:59 08/28/20 13:40 Acetaminophen (Tylenol) 650 mg Q6H PRN GT Temp >100.5 08/10/20 20:20 09/09/20 20:19 09/01/20 20:43 Chlorhexidine Gluconate (Christy-Hex 2%) 1 applic DAILY@2000 TOPIC 08/14/20 20:00 11/12/20 19:59 09/04/20 20:00 Folic Acid (Folate) 1 mg DAILY GT 08/11/20 09:00 09/07/20 08:59 09/05/20 08:21 Levetiracetam (Keppra) 500 mg Q12HR NG 09/04/20 21:00 10/04/20 20:59 09/05/20 08:21 Linezolid 300 ml @ 300 mls/hr Q12HR IVPB 08/29/20 11:00 09/07/20 10:59 09/05/20 08:21 Metoclopramide HCl (Reglan) 10 mg Q8H PRN IVP Nausea & Vomiting 08/26/20 11:15 09/25/20 11:14 08/27/20 20:46 Multivitamins (Multivitamins) 1 tab DAILY GT 08/11/20 09:00 09/07/20 08:59 09/05/20 08:21 Pantoprazole (Protonix) 40 mg EVERY 12 HOURS IVP 08/13/20 22:15 09/12/20 22:14 09/05/20 08:21 Patient Own Medication (Patient's Own Med) 2 ea TID GT 08/30/20 09:00 09/29/20 08:59 09/05/20 08:20 Patient Own Medication (Patient's Own Med) 3 ea DAILY GT 08/30/20 09:00 09/29/20 08:59 09/05/20 08:20 Ursodiol (Actigall) 300 mg TWICE A DAY ORAL 09/01/20 09:00 11/30/20 08:59 09/05/20 08:21 Isabelle Degroot MD Sep 05, 2020 10:57
[2020-09-05 12:00] VITALS: BP 107/67
--- NOTE | 2020-09-05 14:24 | Surgery Progress Note ---
Surgery Progress Note Subjective Procedure Performed Tracheostomy Symptoms: improved, tolerating diet, passing flatus, BM, pain decreased Objective Last 24 Hour Vital Signs Date Time Temp Pulse Resp B/P (MAP) Pulse Ox O2 Delivery O2 Flow Rate FiO2 09/05/20 11:15 66 17 40 09/05/20 08:00 97.2 58 16 119/78 (92) 100 09/05/20 08:00 56 09/05/20 08:00 40 09/05/20 08:00 Mechanical Ventilator Mechanical Ventilator 09/05/20 07:20 58 19 40 09/05/20 04:00 Mechanical Ventilator Mechanical Ventilator 09/05/20 04:00 40 09/05/20 04:00 97.7 67 17 108/63 (78) 99 09/05/20 04:00 60 09/05/20 02:43 64 19 40 09/05/20 00:00 40 09/05/20 00:00 97.7 87 19 128/78 (95) 100 09/05/20 00:00 73 09/05/20 00:00 Mechanical Ventilator Mechanical Ventilator 09/04/20 22:40 72 12 40 09/04/20 21:00 Mechanical Ventilator Mechanical Ventilator 09/04/20 20:00 63 09/04/20 20:00 40 09/04/20 20:00 97.7 67 16 109/60 (76) 100 09/04/20 18:39 75 15 40 09/04/20 16:00 Mechanical Ventilator Mechanical Ventilator 09/04/20 16:00 67 09/04/20 16:00 40 09/04/20 16:00 97.9 66 18 103/56 (72) 100 09/04/20 15:21 72 15 40 I&O Intake and Output 09/04/20 09/05/20 19:00 07:00 Intake Total 980 ml 50 ml Output Total 1100 ml 1500 ml Balance -120 ml -1450 ml Free Water 60 ml IV Total 400 ml Tube Feeding 520 ml 50 ml Output Urine Total 1100 ml 1500 ml # Bowel Movements 2 Dressing: dry Wound: clean Cardiovascular: RSR Respiratory: clear Abdomen: non-tender, present bowel sounds Extremities: no edema, no tenderness, no cyanosis Laboratory Tests Test 09/05/20 04:10 White Blood Count 17.7 K/UL (4.8-10.8) H Red Blood Count 2.69 M/UL (4.70-6.10) L Hemoglobin 8.5 G/DL (14.2-18.0) L Hematocrit 24.8 % (42.0-52.0) L Mean Corpuscular Volume 92 FL (80-99) Mean Corpuscular Hemoglobin 31.5 PG (27.0-31.0) H Mean Corpuscular Hemoglobin Concent 34.2 G/DL (32.0-36.0) Red Cell Distribution Width 14.9 % (11.6-14.8) H Platelet Count 255 K/UL (150-450) Mean Platelet Volume 7.6 FL (6.5-10.1) Neutrophils (%) (Auto) 61.0 % (45.0-75.0) Lymphocytes (%) (Auto) 19.4 % (20.0-45.0) L Monocytes (%) (Auto) 9.7 % (1.0-10.0) Eosinophils (%) (Auto) 7.6 % (0.0-3.0) H Basophils (%) (Auto) 2.3 % (0.0-2.0) H Sodium Level 139 MMOL/L (136-145) Potassium Level 4.1 MMOL/L (3.5-5.1) Chloride Level 110 MMOL/L (98-107) H Carbon Dioxide Level 21 MMOL/L (21-32) Blood Urea Nitrogen 62 mg/dL (7-18) H Creatinine 1.0 MG/DL (0.55-1.30) Estimat Glomerular Filtration Rate > 60 mL/min (>60) Glucose Level 120 MG/DL (74-106) H Calcium Level 9.3 MG/DL (8.5-10.1) Total Bilirubin 1.2 MG/DL (0.2-1.0) H Direct Bilirubin 0.6 MG/DL (0.0-0.3) H Aspartate Amino Transf (AST/SGOT) 42 U/L (15-37) H Alanine Aminotransferase (ALT/SGPT) 53 U/L (12-78) Alkaline Phosphatase 368 U/L (46-116) H Total Protein 8.1 G/DL (6.4-8.2) Albumin 2.9 G/DL (3.4-5.0) L Globulin 5.2 g/dL Albumin/Globulin Ratio 0.6 (1.0-2.7) L Plan Problems: (1) Pneumonia (2) Sickle cell anemia (3) Tachycardia (4) Severe sepsis (5) Sickle cell crisis (6) Sepsis Assessment & Plan: 35-year-old male sickle cell multiple comorbidities history of craniotomy trach feeding tube prior port infected removed see prior admission and consult and operative notes. Currently presents with significant leukocytosis fevers hypotension in intensive care unit wound site evaluated unlikely etiology. Trach evaluated may consider changing. LFTs noted elevated. Ultrasound ordered pending results trend labs continue IV antibiotics appreciate infectious disease input will follow with recommendations thank you for let me participate in patient's care KUB and US noted labs reviewed transfuse prbc prn trach change peg changed line out picc placed persistent wbc h/h noted anemia ss better since new trach Shiley [address] secretions manageable Trach replaced at bedside 925 for malpositioning it was identified he does have a false track as well. Will ensure trach is in correct positioning daily every shift trach not stable removed and intubated 08/25 on ett vent will need trach revision discussed with mother and medical teams trach and picc s/p trach revision 6 f dxlt downgraded improved d/c plan pulmonary arteries: Evaluation for pulmonary embolus is limited due to breathing motion artifact. No central pulmonary emboli are identified. Aorta: No acute findings. No thoracic aortic aneurysm. Lungs: There are moderately consolidating infiltrates identified in both lower lobes dependently with mild additional patchy infiltrates dependently in both upper lobes. The findings are consistent with bilateral nonspecific pneumonia. Aspiration pneumonia could give this appearance. The infiltrates are only somewhat typical of Covid 19. Confidence is immediate. Pleural space: Unremarkable. No significant effusion. No pneumothorax. Heart: Unremarkable. No cardiomegaly. No significant pericardial effusion. No evidence of RV dysfunction. Bones/joints: No acute fracture. No dislocation. Soft tissues: Unremarkable. Lymph nodes: Unremarkable. No enlarged lymph nodes. Tubes, lines and devices: There is a tracheostomy tube in good position. IMPRESSION: 1. There are moderately consolidating infiltrates identified in both lower lobes dependently with mild additional patchy infiltrates dependently in both upper lobes. The findings are consistent with bilateral nonspecific pneumonia. Aspiration pneumonia could give this appearance. The infiltrates are only somewhat typical of Covid 19. Confidence is immediate. 2. Evaluation for pulmonary embolus is limited due to breathing motion artifact. No central pulmonary emboli are identified. The liver is homogeneous. We cannot identify a normal spleen. There is dense crescentic calcification in the left upper quadrant at the expected location of the spleen. Gallbladder is absent. The pancreas is unremarkable. Adrenals are normal in morphology. There is a small punctate cortical calcification left kidney. No hydronephrosis bilaterally There is a G-tube in place. Gas-filled bowel loops identified throughout the abdomen and pelvis. No discrete transition point or obstruction. Appendix partially visualized. There is some free fluid in the pelvis. There is no free air. There is a mildly prominent lymph nodes noted in the upper to mid retroperitoneum noted of undetermined etiology or significance. Rivera catheter noted in the bladder. The reservoir for the penile prosthesis is identified in the left lower pelvis. There is a right femoral venous catheter in place. Diffuse sclerosis of the bony pelvis and hips noted of undetermined etiology. IMPRESSION: BILATERAL LOWER LOBE PNEUMONIAS. ALSO SOME HAZY INFILTRATES IN THE UPPER LOBES. A NORMAL SPLEEN IS NOT VISUALIZED. THERE IS A DENSE CRESCENTIC CALCIFICATION LEFT UPPER QUADRANT AT THE EXPECTED LOCATION OF THE SPLEEN. 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 PUNCTATE CORTICAL CALCIFICATION LEFT KIDNEY. NO HYDRONEPHROSIS. PROMINENT LYMPH NODES IN THE UPPER TO MID RETROPERITONEUM OF UNDETERMINED ETIOLOGY OR SIGNIFICANCE. G-TUBE, RIVERA CATHETER, RIGHT FEMORAL CATHETER AND PENILE PROSTHESIS NOTED IN PLACE. MILD DIFFUSE SCLEROSIS OF THE BONY PELVIS AND BOTH HIPS OF UNDETERMINED ETIOLOGY. QUESTION HISTORY OF RENAL OSTEODYSTROPHY. There is a large craniectomy defect in the right frontal temporal region. Diffuse age-related volume loss demonstrated. 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 No definite acute infarct seen. There is no hemorrhage, mass effect or shift. Ventricles and cisterns as well as brainstem and posterior fossa appear unremarkable. The sellar region is normal. Sinuses, mastoid air cells and bony calvarium appear intact. IMPRESSION: Large right frontotemporal craniectomy defect. 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 No definite acute intracranial abnormality. (7) Port-A-Cath in place Assessment & Plan: prior removal for infection site okay dressings changed no active infection from wound picc ChetgracielaHarman Sep 05, 2020 14:24
[2020-09-05 16:00] VITALS: BP 104/58
[2020-09-05] MEDS ORDERED: NS 275ml ONE (18:09)
[2020-09-05] MEDS ORDERED: Tubing IV Secondary IV ONE (18:09)
--- NOTE | 2020-09-05 19:06 | NUR ---
NURSE HAND-OFF REPORT: Important Events on Shift: NA Patient Status: stable Diet: Vital AF @ 60ml/h Pending Orders: na Pending Results/Labs:na Pending MD notification:na Latest Vital Signs: Temperature 97.5 , Pulse 65 , B/P 104 /58 , Respiratory Rate 13 , O2 SAT 100 , Mechanical Ventilator, O2 Flow Rate . Vital Sign Comment: stable EKG Rhythm: Sinus Rhythm Rhythm change?: N MD Notified?: N -GRACE JIMENEZ Response: Latest Stevens Fall Score: 35 Fall Risk: Medium Risk Safety Measures: Call light Within Reach, Bed Alarm Zone 2, Side Rails Side Rails x3, Bed position Low and Locked. Fall Precautions: Yellow Socks Yellow Gown Door Sign Patient Fall Education Report given to ARLYN Calles.
--- NOTE | 2020-09-05 19:08 | NUR ---
NURSE NOTES: Got report from Diana STODDARD. Pt resting in bed comfortably, no s/s of distress or discomfort noted at this time. Patient A+Ox0-1 nonverbal opens eyes spontaneously to movement. Trach to vent Shiley 6 AC 12 TV 500 Fio2 50% PEEP 0. GTube feeding Vital AF@60 ml/hr tolerating well. Pt has garcia catheter intact draining to gravity. Pt has Left UA PICC intact and patent. Bed in low and locked position, call light within reach, bed alarm on, bedside table within reach. Will continue to monitor.
[2020-09-05 20:00] VITALS: BP 105/57
[2020-09-05] MEDS: Dyna-Hex 2% Top Sol 2oz TOPIC SCH (20:00)
--- NOTE | 2020-09-05 20:00 | General Progress Note ---
Subjective Allergies: Coded Allergies: ADHESIVE TAPE (Verified Allergy, Unknown, 07/20/20) Uncoded Allergies: TAPE (Allergy, Unknown, 08/07/20) Subjective calm and comfortable tolerating feeds Objective Last 24 Hour Vital Signs Date Time Temp Pulse Resp B/P (MAP) Pulse Ox O2 Delivery O2 Flow Rate FiO2 09/05/20 19:25 65 19 40 09/05/20 16:00 97.5 63 13 104/58 (73) 100 09/05/20 16:00 Mechanical Ventilator Mechanical Ventilator 09/05/20 16:00 65 09/05/20 16:00 40 09/05/20 14:45 69 16 40 09/05/20 12:00 Mechanical Ventilator Mechanical Ventilator 09/05/20 12:00 66 09/05/20 12:00 40 09/05/20 12:00 97.0 70 13 107/67 (80) 100 09/05/20 11:15 66 17 40 09/05/20 08:00 97.2 58 16 119/78 (92) 100 09/05/20 08:00 56 09/05/20 08:00 40 09/05/20 08:00 Mechanical Ventilator Mechanical Ventilator 09/05/20 07:20 58 19 40 09/05/20 04:00 Mechanical Ventilator Mechanical Ventilator 09/05/20 04:00 40 09/05/20 04:00 97.7 67 17 108/63 (78) 99 09/05/20 04:00 60 09/05/20 02:43 64 19 40 09/05/20 00:00 40 09/05/20 00:00 97.7 87 19 128/78 (95) 100 09/05/20 00:00 73 09/05/20 00:00 Mechanical Ventilator Mechanical Ventilator 09/04/20 22:40 72 12 40 09/04/20 21:00 Mechanical Ventilator Mechanical Ventilator 09/04/20 20:00 63 09/04/20 20:00 40 09/04/20 20:00 97.7 67 16 109/60 (76) 100 Intake and Output 09/04/20 09/05/20 19:00 07:00 Intake Total 980 ml 110 ml Output Total 1100 ml 1500 ml Balance -120 ml -1390 ml Free Water 60 ml IV Total 400 ml Tube Feeding 520 ml 110 ml Output Urine Total 1100 ml 1500 ml # Bowel Movements 2 Laboratory Tests 09/05/20 04:10: White Blood Count 17.7H, Red Blood Count 2.69L, Hemoglobin 8.5L, Hematocrit 24.8L, Mean Corpuscular Volume 92, Mean Corpuscular Hemoglobin 31.5H, Mean Corpuscular Hemoglobin Concent 34.2, Red Cell Distribution Width 14.9H, Platelet Count 255, Mean Platelet Volume 7.6, Neutrophils (%) (Auto) 61.0, Lymphocytes (%) (Auto) 19.4L, Monocytes (%) (Auto) 9.7, Eosinophils (%) (Auto) 7.6H, Basophils (%) (Auto) 2.3H, Sodium Level 139, Potassium Level 4.1, Chloride Level 110H, Carbon Dioxide Level 21, Blood Urea Nitrogen 62H, Creatinine 1.0, Estimat Glomerular Filtration Rate > 60, Glucose Level 120H, Calcium Level 9.3, Total Bilirubin 1.2H, Direct Bilirubin 0.6H, Aspartate Amino Transf (AST/SGOT) 42H, Alanine Aminotransferase (ALT/SGPT) 53, Alkaline Phosphatase 368H, Total Protein 8.1, Albumin 2.9L, Globulin 5.2, Albumin/Globulin Ratio 0.6L Height (Feet): 5 Height (Inches): 8.00 Weight (Pounds): 113 Objective Thin AA Man HEENT s/p craniotomy, (+) ETT neck (+) dressing Coarse BS, ronchi, tachypnic RR/tachy abd soft (+) GT no edema Assessment/Plan Status: stable, not improved Assessment/Plan: Assessment - respiratory distress - intubated - recent occluded GT - replaced - abnormal LFT - 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
[2020-09-06] VITALS: BP 110/70
[2020-09-06 03:51] LABS: HEMATOCRIT 24.7 % (42.0-52.0); HEMOGLOBIN 8.5 G/DL (14.2-18.0); MEAN CORPUSCULAR VOLUME 92 FL (80-99); PLATELET COUNT 230 K/UL (150-450); RED CELL DISTRIBUTION WIDTH 15.1 % (11.6-14.8)
[2020-09-06 04:00] VITALS: BP 104/63
[2020-09-06 04:29] LABS: ANION GAP 13 mmol/L (5-15); BLOOD UREA NITROGEN 67 mg/dL (7-18); CALCIUM 9.3 MG/DL (8.5-10.1); CARBON DIOXIDE 21 MMOL/L (21-32); CHLORIDE 107 MMOL/L (98-107); CREATININE 0.9 MG/DL (0.55-1.30); POTASSIUM 4.2 MMOL/L (3.5-5.1); SODIUM 141 MMOL/L (136-145)
--- NOTE | 2020-09-06 06:46 | Hematology/Onc Progress Note ---
Assessment/Plan Assessment/Plan Assessment and Recs # Sickle cell crisis noted upon admission, with hx of sickle cell anemia --> hgb 6.5-->7.1-->6.6->>>>7.3-->7.1 -->6.7-->6.5-->6.8->7-->7.2->6.5-->6.7-->6.5->5.3-->7.8->8.4-->8.5 --> 1 unit prbc on 07/23, 1 unit 08/27, 2 units prbc 08/31 --> ivfs have been started --> anemia panel ordered, with elev ferritin --> recommend to consider hydrea when discharged if stable --> likely does have mild hemolysis --> hgb electrophoresis show evidence of sickle cell trait --> FLOW CYTOMETRY IS NEGATIVE # Hyperferritinemia with elevated ferritin that was noted --> likely consider exjade once discharged though at this time not limiting --> ferritin can >2000 with recurrent transfusions --> trend over time, for EOD observe --> 08/30 deferasirox and ferriprox started (continue these for iron overload) # Leukocytosis poa with Severe sepsis due to line infection --> abx: vancomycin-->cefepime/colistin-->cefepime--linezolid --> wbc 25-->31-->29-->25-->37--->31-->24->19-->18-->17-->18 --> FLOW CYTOMETRY NEG # Respiratory failure s/p Ventilator dependent --> as per pulm, vent adjustment # Port-A-Cath in place --> s/p abx --> s/p permacath removal # Transaminitis -->liver function elevated --> per gi # Dt ppx scds The timing of this note does not necessarily reflect the time of the patient was seen. Greatly appreciate consultation. Subjective Allergies: Coded Allergies: ADHESIVE TAPE (Verified Allergy, Unknown, 07/20/20) Uncoded Allergies: TAPE (Allergy, Unknown, 08/07/20) All Systems: reviewed and negative except above Subjective 08/19 no acute events, vent, iv abx, labs reviewed 08/20 labs reviewed, seen by Dr. Celaya and mychal Rn, holding off prbc 08/21 remains on abx with persistently elev wbc, on abx broad spectrum 08/22 labs reviewed, no bleeding, meds noted, wbc still 25k, hgb 6.8, transfuse pr 08/23 cbc has been ordered, meds noted, on cefepime, have dw path is flow back 08/24 hob is elevated, labs noted, hgb 7, consider for transfusions soon, wbc is better 08/25 labs are reviewed, wbc is worse, flow was done and is negative 08/27 is in the icu, labs noted, on cefepime and vanc, wbc 31 08/29 labs reviewed, hgb 6.7, mychal Feldman in am, no bleeding, seen with Belia 08/30 remains on vent, have restart home chelating agents, hgb 6.5 08/31 feeling better, hgb 5.3, have mychal Avalos Artemio to get 2 units prbc stat 09/01 labs are noted, wbc 19, hgb 7.8, no hemolysis, meds reviewed 09/03 labs are noted, wbc 18, on cefepime, hgb better hgb 8.4 09/04 labs noted, no bleeding, cbc is pending, on abx 09/05 remains on abx, hgb 8.5, holding off transfusion, nv, on vent, gt 09/06 labs noted, will order retic, continue on iron chelating meds for iron overload Objective Objective Current Medications Medications (Trade) Dose Ordered Sig/Piedad Route PRN Reason Start Time Stop Time Status Last Admin Dose Admin Acetaminophen (Tylenol) 650 mg Q4H PRN GT Mild Pain (Pain Scale 1-3) 08/24/20 13:00 09/23/20 12:59 08/28/20 13:40 Acetaminophen (Tylenol) 650 mg Q6H PRN GT Temp >100.5 08/10/20 20:20 09/09/20 20:19 09/01/20 20:43 Chlorhexidine Gluconate (Christy-Hex 2%) 1 applic DAILY@1999 TOPIC 08/14/20 20:00 11/12/20 19:59 09/05/20 20:00 Folic Acid (Folate) 1 mg DAILY GT 08/11/20 09:00 10/8/20 08:59 09/05/20 08:21 Levetiracetam (Keppra) 500 mg Q12HR NG 09/04/20 21:00 10/04/20 20:59 09/05/20 21:00 Linezolid 300 ml @ 300 mls/hr Q12HR IVPB 08/29/20 11:00 09/07/20 10:59 09/05/20 21:00 Metoclopramide HCl (Reglan) 10 mg Q8H PRN IVP Nausea & Vomiting 08/26/20 11:15 09/25/20 11:14 08/27/20 20:46 Multivitamins (Multivitamins) 1 tab DAILY GT 08/11/20 09:00 09/07/20 08:59 09/05/20 08:21 Pantoprazole (Protonix) 40 mg EVERY 12 HOURS IVP 08/13/20 22:15 09/12/20 22:14 09/05/20 21:00 Patient Own Medication (Patient's Own Med) 2 ea TID GT 08/30/20 09:00 09/29/20 08:59 09/05/20 17:13 Patient Own Medication (Patient's Own Med) 3 ea DAILY GT 08/30/20 09:00 09/29/20 08:59 09/05/20 08:20 Ursodiol (Actigall) 300 mg TWICE A DAY ORAL 09/01/20 09:00 11/30/20 08:59 09/05/20 17:13 Last 24 Hour Vital Signs Date Time Temp Pulse Resp B/P (MAP) Pulse Ox O2 Delivery O2 Flow Rate FiO2 09/06/20 04:00 Mechanical Ventilator Mechanical Ventilator 09/06/20 04:00 40 09/06/20 04:00 97.7 72 13 104/63 (77) 100 09/06/20 04:00 69 09/06/20 02:37 62 17 40 09/06/20 00:00 40 09/06/20 00:00 63 09/06/20 00:00 97.7 66 15 110/70 (83) 100 09/06/20 00:00 Mechanical Ventilator Mechanical Ventilator 09/05/20 23:00 66 16 40 09/05/20 20:00 40 09/05/20 20:00 Mechanical Ventilator Mechanical Ventilator 09/05/20 20:00 97.7 62 15 105/57 (73) 100 09/05/20 19:42 59 09/05/20 19:25 65 19 40 09/05/20 16:00 97.5 63 13 104/58 (73) 100 09/05/20 16:00 Mechanical Ventilator Mechanical Ventilator 09/05/20 16:00 65 09/05/20 16:00 40 09/05/20 14:45 69 16 40 09/05/20 12:00 Mechanical Ventilator Mechanical Ventilator 09/05/20 12:00 66 09/05/20 12:00 40 09/05/20 12:00 97.0 70 13 107/67 (80) 100 09/05/20 11:15 66 17 40 09/05/20 08:00 97.2 58 16 119/78 (92) 100 09/05/20 08:00 56 09/05/20 08:00 40 09/05/20 08:00 Mechanical Ventilator Mechanical Ventilator 09/05/20 07:20 58 19 40 09/05/20 04:00 Mechanical Ventilator Mechanical Ventilator 09/05/20 04:00 40 09/05/20 04:00 97.7 67 17 108/63 (78) 99 09/05/20 04:00 60 09/05/20 02:43 64 19 40 09/05/20 00:00 40 09/05/20 00:00 97.7 87 19 128/78 (95) 100 09/05/20 00:00 73 09/05/20 00:00 Mechanical Ventilator Mechanical Ventilator 09/04/20 22:40 72 12 40 09/04/20 21:00 Mechanical Ventilator Mechanical Ventilator 09/04/20 20:00 63 09/04/20 20:00 40 09/04/20 20:00 97.7 67 16 109/60 (76) 100 09/04/20 18:39 75 15 40 09/04/20 16:00 Mechanical Ventilator Mechanical Ventilator 09/04/20 16:00 67 09/04/20 16:00 40 09/04/20 16:00 97.9 66 18 103/56 (72) 100 09/04/20 15:21 72 15 40 09/04/20 12:00 97.7 84 14 105/64 (78) 99 10/5/20 12:00 40 09/04/20 12:00 Mechanical Ventilator Mechanical Ventilator 09/04/20 12:00 69 09/04/20 11:26 85 18 40 09/04/20 08:00 40 09/04/20 08:00 61 09/04/20 08:00 97.0 71 16 98/67 (77) 100 09/04/20 08:00 Mechanical Ventilator Mechanical Ventilator 09/04/20 07:24 74 17 40 Intake and Output 0 09/05/20 09/06/20 19:00 07:00 Intake Total 1280 ml 60 ml Output Total 1000 ml 1400 ml Balance 280 ml -1340 ml Free Water 260 ml IV Total 300 ml Tube Feeding 720 ml 60 ml Output Urine Total 1000 ml 1400 ml # Bowel Movements 3 Labs Test 09/04/20 04:50 09/05/20 04:10 09/06/20 03:20 White Blood Count 17.5 K/UL (4.8-10.8) 17.7 K/UL (4.8-10.8) 18.0 K/UL (4.8-10.8) Red Blood Count 2.52 M/UL (4.70-6.10) 2.69 M/UL (4.70-6.10) 2.70 M/UL (4.70-6.10) Hemoglobin 7.9 G/DL (14.2-18.0) 8.5 G/DL (14.2-18.0) 8.5 G/DL (14.2-18.0) Hematocrit 23.4 % (42.0-52.0) 24.8 % (42.0-52.0) 24.7 % (42.0-52.0) Mean Corpuscular Volume 93 FL (80-99) 92 FL (80-99) 92 FL (80-99) Mean Corpuscular Hemoglobin 31.3 PG (27.0-31.0) 31.5 PG (27.0-31.0) 31.4 PG (27.0-31.0) Mean Corpuscular Hemoglobin Concent 33.6 G/DL (32.0-36.0) 34.2 G/DL (32.0-36.0) 34.3 G/DL (32.0-36.0) Red Cell Distribution Width 14.5 % (11.6-14.8) 14.9 % (11.6-14.8) 15.1 % (11.6-14.8) Platelet Count 221 K/UL (150-450) 255 K/UL (150-450) 230 K/UL (150-450) Mean Platelet Volume 7.7 FL (6.5-10.1) 7.6 FL (6.5-10.1) 7.2 FL (6.5-10.1) Neutrophils (%) (Auto) % (45.0-75.0) 61.0 % (45.0-75.0) % (45.0-75.0) Lymphocytes (%) (Auto) % (20.0-45.0) 19.4 % (20.0-45.0) % (20.0-45.0) Monocytes (%) (Auto) % (1.0-10.0) 9.7 % (1.0-10.0) % (1.0-10.0) Eosinophils (%) (Auto) % (0.0-3.0) 7.6 % (0.0-3.0) % (0.0-3.0) Basophils (%) (Auto) % (0.0-2.0) 2.3 % (0.0-2.0) % (0.0-2.0) Differential Total Cells Counted 100 Neutrophils % (Manual) 62 % (45-75) Lymphocytes % (Manual) 15 % (20-45) Monocytes % (Manual) 9 % (1-10) Eosinophils % (Manual) 10 % (0-3) Basophils % (Manual) 3 % (0-2) Band Neutrophils 1 % (0-8) Nucleated Red Blood Cells 2 /100 WBC Platelet Estimate Adequate Platelet Morphology Normal Hypochromasia 3+ Anisocytosis 1+ Spherocytes 2+ Sodium Level 142 MMOL/L (136-145) 139 MMOL/L (136-145) 141 MMOL/L (136-145) Potassium Level 4.0 MMOL/L (3.5-5.1) 4.1 MMOL/L (3.5-5.1) 4.2 MMOL/L (3.5-5.1) Chloride Level 112 MMOL/L (98-107) 110 MMOL/L (98-107) 107 MMOL/L (98-107) Carbon Dioxide Level 20 MMOL/L (21-32) 21 MMOL/L (21-32) 21 MMOL/L (21-32) Anion Gap 10 mmol/L (5-15) 13 mmol/L (5-15) Blood Urea Nitrogen 54 mg/dL (7-18) 62 mg/dL (7-18) 67 mg/dL (7-18) Creatinine 0.9 MG/DL (0.55-1.30) 1.0 MG/DL (0.55-1.30) 0.9 MG/DL (0.55-1.30) Estimat Glomerular Filtration Rate > 60 mL/min (>60) > 60 mL/min (>60) > 60 mL/min (>60) Glucose Level 90 MG/DL (74-106) 120 MG/DL (74-106) 107 MG/DL (74-106) Calcium Level 8.9 MG/DL (8.5-10.1) 9.3 MG/DL (8.5-10.1) 9.3 MG/DL (8.5-10.1) Total Bilirubin 1.2 MG/DL (0.2-1.0) Direct Bilirubin 0.6 MG/DL (0.0-0.3) Aspartate Amino Transf (AST/SGOT) 42 U/L (15-37) Alanine Aminotransferase (ALT/SGPT) 53 U/L (12-78) Alkaline Phosphatase 368 U/L (46-116) Total Protein 8.1 G/DL (6.4-8.2) Albumin 2.9 G/DL (3.4-5.0) Globulin 5.2 g/dL Albumin/Globulin Ratio 0.6 (1.0-2.7) Height (Feet): 5 Height (Inches): 8.00 Weight (Pounds): 113 Objective Physical Exam General: alert, Chronically Ill Head: other - Large right-sided craniotomy defect well-heale ++, tracheotomy/vent Respiratory: crackles, rales, other - right side chest wall tenderness Cardiovascular: tachycardia Gastrointestinal: normal inspection, soft, gt++ Musk: decreased range of motion, other - atrophic, motor weakness Neurologic: alert, motor weakness, other - left hemineglect Psychiatric: normal inspection Skin: no rash : garcia++ Roshan Castillo MD Sep 06, 2020 06:46
--- NOTE | 2020-09-06 07:15 | NUR ---
NURSE HAND-OFF REPORT: Important Events on Shift:[] Patient Status: [] Diet: [] Pending Orders: [] Pending Results/Labs:[] Pending MD notification:[] Latest Vital Signs: Temperature 97.7 , Pulse 69 , B/P 104 /63 , Respiratory Rate 13 , O2 SAT 100 , Mechanical Ventilator, O2 Flow Rate . Vital Sign Comment: [] EKG Rhythm: Sinus Rhythm Rhythm change?: N MD Notified?: N -GRACE JIMENEZ Response: Latest Stevens Fall Score: 35 Fall Risk: Medium Risk Safety Measures: Call light Within Reach, Bed Alarm Zone 2, Side Rails Side Rails x3, Bed position Low and Locked. Fall Precautions: Yellow Socks Yellow Gown Door Sign Patient Fall Education Report given to [Diana STODDARD].
--- NOTE | 2020-09-06 07:36 | NUR ---
NURSE NOTES: Received report from ARLYN Calles. Patient in bed resting, no active s/s cardiac, respiratory distress noticed at this time. Patient AOx0, open eyes spontaneously, does not follow command, SR with HR 60. Trach to vent Shiley 6 AC 12 TV 500 Fio2 40% PEEP 0 O2 sat 100%. Overton Catheter draining well to gravity, intact. PICC on left upper arm, intact and patent. Bed in lowest position, side rails upx3, call light within reach, bed alarm on, Will continue to monitor.
[2020-09-06 08:00] VITALS: BP 117/63
[2020-09-06] MEDS: FERRIPROX GT SCH ×3 (08:23→18:16)
[2020-09-06] MEDS: DEFERASIROX 360 MG GT SCH (08:23)
[2020-09-06] MEDS: Pantoprazole Inj IVP SCH ×2 (08:23→20:52)
[2020-09-06] MEDS: levETIRAcetam 500mg/5ml Liquid NG SCH ×2 (08:23→20:53)
[2020-09-06] MEDS: Ursodiol 300mg cap ORAL SCH ×2 (08:23→18:16)
[2020-09-06] MEDS: Linezolid 600mg/300ml (Pre-Mix) IVPB SCH ×2 (08:24→20:53)
--- NOTE | 2020-09-06 09:33 | Critical Care Progress Note ---
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 Port-A-Cath Status post removal of implanted right chest wall Port-A-Cath Sickle cell crisis Sickle cell anemia Chronic respiratory failure, ventilator dependent, with tracheostomy status Transaminitis Seizure disorder acute pneumonia leukocytosis recurrent sepsis PLAN care noted d/w surgery IV antibiotics per ID respiratory care as is Ventilatory support- volume ventilation as is oxygen adequate SNF meds supportive care suction no wean planned prognosis guarded medications/laboratory data/nursing notes reviewed in detail note reviewed and edited care discussed with RN and RT Critical Care - Subjective ROS Limited/Unobtainable: Yes Condition: critical EKG Rhythm: Sinus Rhythm Residuals: minimal Tube Feeding Tolerated: yes I&O: Intake and Output 09/05/20 09/06/20 19:00 07:00 Intake Total 1280 ml 60 ml Output Total 1000 ml 1400 ml Balance 280 ml -1340 ml Free Water 260 ml IV Total 300 ml Tube Feeding 720 ml 60 ml Output Urine Total 1000 ml 1400 ml # Bowel Movements 3 Critical Care - Objective ET-Tube: 7.0 ET Position: 23 Last 24 Hour Vital Signs Date Time Temp Pulse Resp B/P (MAP) Pulse Ox O2 Delivery O2 Flow Rate FiO2 09/06/20 08:00 Mechanical Ventilator Mechanical Ventilator 09/06/20 08:00 97.7 87 19 117/63 (81) 98 09/06/20 07:40 65 14 40 09/06/20 04:00 Mechanical Ventilator Mechanical Ventilator 09/06/20 04:00 40 09/06/20 04:00 97.7 72 13 104/63 (77) 100 09/06/20 04:00 69 09/06/20 02:37 62 17 40 09/06/20 00:00 40 09/06/20 00:00 63 09/06/20 00:00 97.7 66 15 110/70 (83) 100 09/06/20 00:00 Mechanical Ventilator Mechanical Ventilator 09/05/20 23:00 66 16 40 09/05/20 20:00 40 09/05/20 20:00 Mechanical Ventilator Mechanical Ventilator 09/05/20 20:00 97.7 62 15 105/57 (73) 100 09/05/20 19:42 59 09/05/20 19:25 65 19 40 09/05/20 16:00 97.5 63 13 104/58 (73) 100 09/05/20 16:00 Mechanical Ventilator Mechanical Ventilator 09/05/20 16:00 65 09/05/20 16:00 40 09/05/20 14:45 69 16 40 09/05/20 12:00 Mechanical Ventilator Mechanical Ventilator 09/05/20 12:00 66 09/05/20 12:00 40 09/05/20 12:00 97.0 70 13 107/67 (80) 100 09/05/20 11:15 66 17 40 Objective: WDWN NAD reduced breath sounds bilaterally without rhonchi or wheeze [id number] without MRG NABS nontender GT no CCE reduced LOC James Nuñez MD Sep 06, 2020 09:33
--- NOTE | 2020-09-06 09:50 | NUR ---
NURSE NOTES: Dr. Celaya made aware of increasing BUN. No new order received at this time, will continue to follow up.
--- NOTE | 2020-09-06 10:47 | Infectious Diseases Prog Note ---
Assessment/Plan Assessment/Plan antibiotics : linezolid 9.29.20 - A 1. VRE sepsis 2. serratia pneumonia 3. respiratory failure 4. sickle cell disease 5. anemia 6. leucocytosis improving 7. seizures P 1. continue linezolid 1 more day 2. will follow up cultures Subjective ROS Limited/Unobtainable: Yes Allergies: Coded Allergies: ADHESIVE TAPE (Verified Allergy, Unknown, 07/20/20) Uncoded Allergies: TAPE (Allergy, Unknown, 08/07/20) Objective Last 24 Hour Vital Signs Date Time Temp Pulse Resp B/P (MAP) Pulse Ox O2 Delivery O2 Flow Rate FiO2 09/06/20 08:00 40 09/06/20 08:00 Mechanical Ventilator Mechanical Ventilator 09/06/20 08:00 97.7 87 19 117/63 (81) 98 09/06/20 08:00 62 09/06/20 07:40 65 14 40 09/06/20 04:00 Mechanical Ventilator Mechanical Ventilator 09/06/20 04:00 40 09/06/20 04:00 97.7 72 13 104/63 (77) 100 09/06/20 04:00 69 09/06/20 02:37 62 17 40 09/06/20 00:00 40 09/06/20 00:00 63 09/06/20 00:00 97.7 66 15 110/70 (83) 100 09/06/20 00:00 Mechanical Ventilator Mechanical Ventilator 09/05/20 23:00 66 16 40 09/05/20 20:00 40 09/05/20 20:00 Mechanical Ventilator Mechanical Ventilator 09/05/20 20:00 97.7 62 15 105/57 (73) 100 09/05/20 19:42 59 09/05/20 19:25 65 19 40 09/05/20 16:00 97.5 63 13 104/58 (73) 100 09/05/20 16:00 Mechanical Ventilator Mechanical Ventilator 09/05/20 16:00 65 09/05/20 16:00 40 09/05/20 14:45 69 16 40 09/05/20 12:00 Mechanical Ventilator Mechanical Ventilator 09/05/20 12:00 66 09/05/20 12:00 40 09/05/20 12:00 97.0 70 13 107/67 (80) 100 09/05/20 11:15 66 17 40 Height (Feet): 5 Height (Inches): 8.00 Weight (Pounds): 113 HEENT: status post trach Respiratory/Chest: lungs clear Cardiovascular: normal rate, regular rhythm, no gallop/murmur Abdomen: soft, non tender, other - GT Extremities: no edema, other - left arm PICC Laboratory Tests Test 09/06/20 03:20 White Blood Count 18.0 K/UL (4.8-10.8) H Red Blood Count 2.70 M/UL (4.70-6.10) L Hemoglobin 8.5 G/DL (14.2-18.0) L Hematocrit 24.7 % (42.0-52.0) L Mean Corpuscular Volume 92 FL (80-99) Mean Corpuscular Hemoglobin 31.4 PG (27.0-31.0) H Mean Corpuscular Hemoglobin Concent 34.3 G/DL (32.0-36.0) Red Cell Distribution Width 15.1 % (11.6-14.8) H Platelet Count 230 K/UL (150-450) Mean Platelet Volume 7.2 FL (6.5-10.1) Neutrophils (%) (Auto) % (45.0-75.0) Lymphocytes (%) (Auto) % (20.0-45.0) Monocytes (%) (Auto) % (1.0-10.0) Eosinophils (%) (Auto) % (0.0-3.0) Basophils (%) (Auto) % (0.0-2.0) Differential Total Cells Counted 100 Neutrophils % (Manual) 69 % (45-75) Lymphocytes % (Manual) 20 % (20-45) Monocytes % (Manual) 5 % (1-10) Eosinophils % (Manual) 5 % (0-3) H Basophils % (Manual) 1 % (0-2) Band Neutrophils 0 % (0-8) Platelet Estimate Adequate Platelet Morphology Normal Anisocytosis 1+ Reticulocyte Count 1.0 % (0.5-2.0) Sodium Level 141 MMOL/L (136-145) Potassium Level 4.2 MMOL/L (3.5-5.1) Chloride Level 107 MMOL/L (98-107) Carbon Dioxide Level 21 MMOL/L (21-32) Anion Gap 13 mmol/L (5-15) Blood Urea Nitrogen 67 mg/dL (7-18) H Creatinine 0.9 MG/DL (0.55-1.30) Estimat Glomerular Filtration Rate > 60 mL/min (>60) Glucose Level 107 MG/DL (74-106) H Calcium Level 9.3 MG/DL (8.5-10.1) Current Medications Medications (Trade) Dose Ordered Sig/Piedad Route PRN Reason Start Time Stop Time Status Last Admin Dose Admin Acetaminophen (Tylenol) 650 mg Q4H PRN GT Mild Pain (Pain Scale 1-3) 08/24/20 13:00 09/23/20 12:59 08/28/20 13:40 Acetaminophen (Tylenol) 650 mg Q6H PRN GT Temp >100.5 08/10/20 20:20 09/09/20 20:19 09/01/20 20:43 Chlorhexidine Gluconate (Christy-Hex 2%) 1 applic DAILY@1999 TOPIC 08/14/20 20:00 11/12/20 19:59 09/05/20 20:00 Folic Acid (Folate) 1 mg DAILY GT 08/11/20 09:00 09/07/20 08:59 09/06/20 08:23 Levetiracetam (Keppra) 500 mg Q12HR NG 09/04/20 21:00 10/04/20 20:59 09/06/20 08:23 Linezolid 300 ml @ 300 mls/hr Q12HR IVPB 08/29/20 11:00 09/07/20 10:59 09/06/20 08:24 Metoclopramide HCl (Reglan) 10 mg Q8H PRN IVP Nausea & Vomiting 08/26/20 11:15 09/25/20 11:14 08/27/20 20:46 Multivitamins (Multivitamins) 1 tab DAILY GT 08/11/20 09:00 09/07/20 08:59 09/06/20 08:23 Pantoprazole (Protonix) 40 mg EVERY 12 HOURS IVP 08/13/20 22:15 09/12/20 22:14 09/06/20 08:23 Patient Own Medication (Patient's Own Med) 2 ea TID GT 08/30/20 09:00 09/29/20 08:59 09/06/20 08:23 Patient Own Medication (Patient's Own Med) 3 ea DAILY GT 08/30/20 09:00 09/29/20 08:59 09/06/20 08:23 Ursodiol (Actigall) 300 mg TWICE A DAY ORAL 09/01/20 09:00 11/30/20 08:59 09/06/20 08:23 Isabelle Degroot MD Sep 06, 2020 10:47
[2020-09-06 12:00] VITALS: BP 98/54
--- NOTE | 2020-09-06 13:22 | NUR ---
CASE MANAGEMENT: REVIEW SI: RESPIRATORY FAILURE . SICKLE CELL DISEASE . TRACHEOSTOMY 08/30 T 98.1 HR 67 RR 18 BP 98/54 SAT 100% MECH VENT FIO2 40 WBC 18. H/H 8.5/24.7 BUN 67 IS: ZYVOX IV Q12HR KEPPRA GT Q12HR PROTONIX IV Q12HR GT FEEDING STEP DOWN UNIT STATUS DCP: PATIENT IS FROM [facility]
[2020-09-06 16:00] VITALS: BP 98/53
--- NOTE | 2020-09-06 17:22 | Surgery Progress Note ---
Surgery Progress Note Subjective Procedure Performed Tracheostomy Additional Comments exam stable afebrile comfortable Objective Last 24 Hour Vital Signs Date Time Temp Pulse Resp B/P (MAP) Pulse Ox O2 Delivery O2 Flow Rate FiO2 09/06/20 15:00 59 14 40 09/06/20 12:00 40 09/06/20 12:00 67 09/06/20 12:00 98.1 67 18 98/54 (69) 100 09/06/20 12:00 Mechanical Ventilator Mechanical Ventilator 09/06/20 11:40 66 16 40 09/06/20 08:00 40 09/06/20 08:00 Mechanical Ventilator Mechanical Ventilator 09/06/20 08:00 97.7 87 19 117/63 (81) 98 09/06/20 08:00 62 09/06/20 07:40 65 14 40 09/06/20 04:00 Mechanical Ventilator Mechanical Ventilator 09/06/20 04:00 40 09/06/20 04:00 97.7 72 13 104/63 (77) 100 09/06/20 04:00 69 09/06/20 02:37 62 17 40 09/06/20 00:00 40 09/06/20 00:00 63 09/06/20 00:00 97.7 66 15 110/70 (83) 100 09/06/20 00:00 Mechanical Ventilator Mechanical Ventilator 09/05/20 23:00 66 16 40 09/05/20 20:00 40 09/05/20 20:00 Mechanical Ventilator Mechanical Ventilator 09/05/20 20:00 97.7 62 15 105/57 (73) 100 09/05/20 19:42 59 09/05/20 19:25 65 19 40 I&O Intake and Output 09/05/20 09/06/20 19:00 07:00 Intake Total 1280 ml 60 ml Output Total 1000 ml 1400 ml Balance 280 ml -1340 ml Free Water 260 ml IV Total 300 ml Tube Feeding 720 ml 60 ml Output Urine Total 1000 ml 1400 ml # Bowel Movements 3 Dressing: other Wound: other Cardiovascular: RSR Respiratory: decreased breath sounds Abdomen: non-tender, present bowel sounds Extremities: no edema, no tenderness, no cyanosis Laboratory Tests Test 09/06/20 03:20 White Blood Count 18.0 K/UL (4.8-10.8) H Red Blood Count 2.70 M/UL (4.70-6.10) L Hemoglobin 8.5 G/DL (14.2-18.0) L Hematocrit 24.7 % (42.0-52.0) L Mean Corpuscular Volume 92 FL (80-99) Mean Corpuscular Hemoglobin 31.4 PG (27.0-31.0) H Mean Corpuscular Hemoglobin Concent 34.3 G/DL (32.0-36.0) Red Cell Distribution Width 15.1 % (11.6-14.8) H Platelet Count 230 K/UL (150-450) Mean Platelet Volume 7.2 FL (6.5-10.1) Neutrophils (%) (Auto) % (45.0-75.0) Lymphocytes (%) (Auto) % (20.0-45.0) Monocytes (%) (Auto) % (1.0-10.0) Eosinophils (%) (Auto) % (0.0-3.0) Basophils (%) (Auto) % (0.0-2.0) Differential Total Cells Counted 100 Neutrophils % (Manual) 69 % (45-75) Lymphocytes % (Manual) 20 % (20-45) Monocytes % (Manual) 5 % (1-10) Eosinophils % (Manual) 5 % (0-3) H Basophils % (Manual) 1 % (0-2) Band Neutrophils 0 % (0-8) Platelet Estimate Adequate Platelet Morphology Normal Anisocytosis 1+ Reticulocyte Count 1.0 % (0.5-2.0) Sodium Level 141 MMOL/L (136-145) Potassium Level 4.2 MMOL/L (3.5-5.1) Chloride Level 107 MMOL/L (98-107) Carbon Dioxide Level 21 MMOL/L (21-32) Anion Gap 13 mmol/L (5-15) Blood Urea Nitrogen 67 mg/dL (7-18) H Creatinine 0.9 MG/DL (0.55-1.30) Estimat Glomerular Filtration Rate > 60 mL/min (>60) Glucose Level 107 MG/DL (74-106) H Calcium Level 9.3 MG/DL (8.5-10.1) Plan Problems: (1) Pneumonia (2) Sickle cell anemia (3) Tachycardia (4) Severe sepsis (5) Sickle cell crisis (6) Sepsis Assessment & Plan: 35-year-old male sickle cell multiple comorbidities history of craniotomy trach feeding tube prior port infected removed see prior admission and consult and operative notes. Currently presents with significant leukocytosis fevers hypotension in intensive care unit wound site evaluated unlikely etiology. Trach evaluated may consider changing. LFTs noted elevated. Ultrasound ordered pending results trend labs continue IV antibiotics appreciate infectious disease input will follow with recommendations thank you for let me participate in patient's care KUB and US noted labs reviewed transfuse prbc prn trach change peg changed line out picc placed persistent wbc h/h noted anemia ss better since new trach Shiley [address] secretions manageable Trach replaced at bedside 925 for malpositioning it was identified he does have a false track as well. Will ensure trach is in correct positioning daily every shift trach not stable removed and intubated 08/25 on ett vent will need trach revision discussed with mother and medical teams trach and picc s/p trach revision 6 f dxlt downgraded improved d/c plan pulmonary arteries: Evaluation for pulmonary embolus is limited due to breathing motion artifact. No central pulmonary emboli are identified. Aorta: No acute findings. No thoracic aortic aneurysm. Lungs: There are moderately consolidating infiltrates identified in both lower lobes dependently with mild additional patchy infiltrates dependently in both upper lobes. The findings are consistent with bilateral nonspecific pneumonia. Aspiration pneumonia could give this appearance. The infiltrates are only somewhat typical of Covid 19. Confidence is immediate. Pleural space: Unremarkable. No significant effusion. No pneumothorax. Heart: Unremarkable. No cardiomegaly. No significant pericardial effusion. No evidence of RV dysfunction. Bones/joints: No acute fracture. No dislocation. Soft tissues: Unremarkable. Lymph nodes: Unremarkable. No enlarged lymph nodes. Tubes, lines and devices: There is a tracheostomy tube in good position. IMPRESSION: 1. There are moderately consolidating infiltrates identified in both lower lobes dependently with mild additional patchy infiltrates dependently in both upper lobes. The findings are consistent with bilateral nonspecific pneumonia. Aspiration pneumonia could give this appearance. The infiltrates are only somewhat typical of Covid 19. Confidence is immediate. 2. Evaluation for pulmonary embolus is limited due to breathing motion artifact. No central pulmonary emboli are identified. The liver is homogeneous. We cannot identify a normal spleen. There is dense crescentic calcification in the left upper quadrant at the expected location of the spleen. Gallbladder is absent. The pancreas is unremarkable. Adrenals are normal in morphology. There is a small punctate cortical calcification left kidney. No hydronephrosis bilaterally There is a G-tube in place. Gas-filled bowel loops identified throughout the abdomen and pelvis. No discrete transition point or obstruction. Appendix partially visualized. There is some free fluid in the pelvis. There is no free air. There is a mildly prominent lymph nodes noted in the upper to mid retroperitoneum noted of undetermined etiology or significance. Rivera catheter noted in the bladder. The reservoir for the penile prosthesis is identified in the left lower pelvis. There is a right femoral venous catheter in place. Diffuse sclerosis of the bony pelvis and hips noted of undetermined etiology. IMPRESSION: BILATERAL LOWER LOBE PNEUMONIAS. ALSO SOME HAZY INFILTRATES IN THE UPPER LOBES. A NORMAL SPLEEN IS NOT VISUALIZED. THERE IS A DENSE CRESCENTIC CALCIFICATION LEFT UPPER QUADRANT AT THE EXPECTED LOCATION OF THE SPLEEN. 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 PUNCTATE CORTICAL CALCIFICATION LEFT KIDNEY. NO HYDRONEPHROSIS. PROMINENT LYMPH NODES IN THE UPPER TO MID RETROPERITONEUM OF UNDETERMINED ETIOLOGY OR SIGNIFICANCE. G-TUBE, RIVERA CATHETER, RIGHT FEMORAL CATHETER AND PENILE PROSTHESIS NOTED IN PLACE. MILD DIFFUSE SCLEROSIS OF THE BONY PELVIS AND BOTH HIPS OF UNDETERMINED ETIOLOGY. QUESTION HISTORY OF RENAL OSTEODYSTROPHY. There is a large craniectomy defect in the right frontal temporal region. Diffuse age-related volume loss demonstrated. 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 No definite acute infarct seen. There is no hemorrhage, mass effect or shift. Ventricles and cisterns as well as brainstem and posterior fossa appear unremarkable. The sellar region is normal. Sinuses, mastoid air cells and bony calvarium appear intact. IMPRESSION: Large right frontotemporal craniectomy defect. 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 No definite acute intracranial abnormality. (7) Port-A-Cath in place Assessment & Plan: prior removal for infection site okay dressings changed no active infection from wound picc Harman Zhao Sep 06, 2020 17:22
--- NOTE | 2020-09-06 19:50 | NUR ---
NURSE NOTES: Received report from ARLYN Ortiz. Pt is lying in bed, not in distress. Tolerating vent settings with O2 saturation of 99%. GT is intact and patent running Vital AF @ 60cc/hr. PIV is intact and patent running NS @ 75 cc/hr. Stool is yellowish liquidy. Pt is sponged bath, linens and gown were changed. Bed is locked and in lowest position, head of bed is elevated and call light within reached. Will continue to monitor pt. Will continue with the plan of care.
--- NOTE | 2020-09-06 19:51 | NUR ---
NURSE HAND-OFF REPORT: Important Events on Shift:NA Patient Status: stable Diet: Vital AF @ 60ml/h Pending Orders: na Pending Results/Labs:na Pending MD notification:na Latest Vital Signs: Temperature 97.7 , Pulse 64 , B/P 98 /53 , Respiratory Rate 14 , O2 SAT 96 , Mechanical Ventilator, O2 Flow Rate . Vital Sign Comment: stable EKG Rhythm: Sinus Rhythm Rhythm change?: N MD Notified?: N -GRACE JIMENEZ Response: Latest Stevens Fall Score: 35 Fall Risk: Medium Risk Safety Measures: Call light Within Reach, Bed Alarm Zone 2, Side Rails Side Rails x3, Bed position Low and Locked. Fall Precautions: Yellow Socks Yellow Gown Door Sign Patient Fall Education Report given to ARLYN Merritt.
[2020-09-06 20:00] VITALS: BP 113/63
--- NOTE | 2020-09-06 20:31 | General Progress Note ---
Subjective Allergies: Coded Allergies: ADHESIVE TAPE (Verified Allergy, Unknown, 07/20/20) Uncoded Allergies: TAPE (Allergy, Unknown, 08/07/20) Subjective calm and comfortable tolerating feeds more diarrhea noted today per RN Objective Last 24 Hour Vital Signs Date Time Temp Pulse Resp B/P (MAP) Pulse Ox O2 Delivery O2 Flow Rate FiO2 09/06/20 18:30 64 14 40 09/06/20 16:00 97.7 69 18 98/53 (68) 96 09/06/20 16:00 40 09/06/20 16:00 Mechanical Ventilator Mechanical Ventilator 09/06/20 16:00 61 09/06/20 15:00 59 14 40 09/06/20 12:00 40 09/06/20 12:00 67 09/06/20 12:00 98.1 67 18 98/54 (69) 100 09/06/20 12:00 Mechanical Ventilator Mechanical Ventilator 09/06/20 11:40 66 16 40 09/06/20 08:00 40 09/06/20 08:00 Mechanical Ventilator Mechanical Ventilator 09/06/20 08:00 97.7 87 19 117/63 (81) 98 09/06/20 08:00 62 09/06/20 07:40 65 14 40 09/06/20 04:00 Mechanical Ventilator Mechanical Ventilator 09/06/20 04:00 40 09/06/20 04:00 97.7 72 13 104/63 (77) 100 09/06/20 04:00 69 09/06/20 02:37 62 17 40 09/06/20 00:00 40 09/06/20 00:00 63 09/06/20 00:00 97.7 66 15 110/70 (83) 100 09/06/20 00:00 Mechanical Ventilator Mechanical Ventilator 09/05/20 23:00 66 16 40 Intake and Output 09/05/20 09/06/20 19:00 07:00 Intake Total 1280 ml 210 ml Output Total 1000 ml 1400 ml Balance 280 ml -1190 ml Free Water 260 ml 30 ml IV Total 300 ml Tube Feeding 720 ml 180 ml Output Urine Total 1000 ml 1400 ml # Bowel Movements 3 Laboratory Tests 09/06/20 03:20: White Blood Count 18.0H, Red Blood Count 2.70L, Hemoglobin 8.5L, Hematocrit 24.7L, Mean Corpuscular Volume 92, Mean Corpuscular Hemoglobin 31.4H, Mean Corpuscular Hemoglobin Concent 34.3, Red Cell Distribution Width 15.1H, Platelet Count 230, Mean Platelet Volume 7.2, Neutrophils (%) (Auto) , Lymphocytes (%) ( Auto) , Monocytes (%) (Auto) , Eosinophils (%) (Auto) , Basophils (%) (Auto) , Differential Total Cells Counted 100, Neutrophils % (Manual) 69, Lymphocytes % (Manual) 20, Monocytes % (Manual) 5, Eosinophils % (Manual) 5H, Basophils % ( Manual) 1, Band Neutrophils 0, Platelet Estimate Adequate, Platelet Morphology Normal, Anisocytosis 1+, Reticulocyte Count 1.0, Sodium Level 141, Potassium Level 4.2, Chloride Level 107, Carbon Dioxide Level 21, Anion Gap 13, Blood Urea Nitrogen 67H, Creatinine 0.9, Estimat Glomerular Filtration Rate > 60, Glucose Level 107H, Calcium Level 9.3 Height (Feet): 5 Height (Inches): 8.00 Weight (Pounds): 113 Objective Thin AA Man HEENT s/p craniotomy, (+) ETT neck (+) dressing Coarse BS, ronchi, tachypnic RR/tachy abd soft (+) GT no edema Assessment/Plan Status: stable, not improved Assessment/Plan: Assessment - respiratory distress - intubated - recent occluded GT - replaced - abnormal LFT - 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
[2020-09-06] MEDS: Dyna-Hex 2% Top Sol 2oz TOPIC SCH (20:52)
--- NOTE | 2020-09-06 22:14 | General Progress Note ---
Subjective ROS Limited/Unobtainable: Yes Constitutional: Reports: malaise, weakness HEENT: Reports: no symptoms Cardiovascular: Reports: no symptoms Respiratory: Reports: sputum Gastrointestinal/Abdominal: Reports: difficulty swallowing Genitourinary: Reports: no symptoms Neurologic/Psychiatric: Reports: pre-existing deficit, seizure Endocrine: Reports: no symptoms Hematologic/Lymphatic: Reports: no symptoms Allergies: Coded Allergies: ADHESIVE TAPE (Verified Allergy, Unknown, 07/20/20) Uncoded Allergies: TAPE (Allergy, Unknown, 08/07/20) All Systems: reviewed and negative except above Subjective d/w mother. per mother pt is better. more alert. close to baseline. sz meds decreased to regular dose. tolerating feeds. no szs. no fevers. labs reviewed Objective Last 24 Hour Vital Signs Date Time Temp Pulse Resp B/P (MAP) Pulse Ox O2 Delivery O2 Flow Rate FiO2 09/06/20 20:00 97.7 61 17 113/63 (80) 97 09/06/20 20:00 63 09/06/20 20:00 40 09/06/20 20:00 Mechanical Ventilator Mechanical Ventilator 09/06/20 18:30 64 14 40 09/06/20 16:00 97.7 69 18 98/53 (68) 96 09/06/20 16:00 40 09/06/20 16:00 Mechanical Ventilator Mechanical Ventilator 09/06/20 16:00 61 09/06/20 15:00 59 14 40 09/06/20 12:00 40 09/06/20 12:00 67 09/06/20 12:00 98.1 67 18 98/54 (69) 100 09/06/20 12:00 Mechanical Ventilator Mechanical Ventilator 09/06/20 11:40 66 16 40 09/06/20 08:00 40 09/06/20 08:00 Mechanical Ventilator Mechanical Ventilator 09/06/20 08:00 97.7 87 19 117/63 (81) 98 09/06/20 08:00 62 09/06/20 07:40 65 14 40 09/06/20 04:00 Mechanical Ventilator Mechanical Ventilator 09/06/20 04:00 40 09/06/20 04:00 97.7 72 13 104/63 (77) 100 09/06/20 04:00 69 09/06/20 02:37 62 17 40 10/7/20 00:00 40 09/06/20 00:00 63 09/06/20 00:00 97.7 66 15 110/70 (83) 100 09/06/20 00:00 Mechanical Ventilator Mechanical Ventilator 09/05/20 23:00 66 16 40 Intake and Output 09/05/20 09/06/20 19:00 07:00 Intake Total 1280 ml 210 ml Output Total 1000 ml 1400 ml Balance 280 ml -1190 ml Free Water 260 ml 30 ml IV Total 300 ml Tube Feeding 720 ml 180 ml Output Urine Total 1000 ml 1400 ml # Bowel Movements 3 Laboratory Tests 09/06/20 03:20: White Blood Count 18.0H, Red Blood Count 2.70L, Hemoglobin 8.5L, Hematocrit 24.7L, Mean Corpuscular Volume 92, Mean Corpuscular Hemoglobin 31.4H, Mean Corpuscular Hemoglobin Concent 34.3, Red Cell Distribution Width 15.1H, Platelet Count 230, Mean Platelet Volume 7.2, Neutrophils (%) (Auto) , Lymphocytes (%) (Auto) , Monocytes (%) (Auto) , Eosinophils (%) (Auto) , Basophils (%) (Auto) , Differential Total Cells Counted 100, Neutrophils % (Manual) 69, Lymphocytes % (Manual) 20, Monocytes % (Manual) 5, Eosinophils % (Manual) 5H, Basophils % (Manual) 1, Band Neutrophils 0, Platelet Estimate Adequate, Platelet Morphology Normal, Anisocytosis 1+, Reticulocyte Count 1.0, Sodium Level 141, Potassium Level 4.2, Chloride Level 107, Carbon Dioxide Level 21, Anion Gap 13, Blood Urea Nitrogen 67H, Creatinine 0.9, Estimat Glomerular Filtration Rate > 60, Glucose Level 107H, Calcium Level 9.3 Height (Feet): 5 Height (Inches): 8.00 Weight (Pounds): 113 Objective General Appearance: WD/WN, lethargic EENT: normal ENT inspection. trach c/d/i Neck: normal alignment Cardiovascular: normal peripheral pulses, normal rate Respiratory/Chest: chest wall non-tender, lungs clear, normal breath sounds Abdomen: normal bowel sounds, non tender, soft, no organomegaly Edema: no edema noted Arm (L), no edema noted Arm (R) Neurologic: poorly responsive Assessment/Plan Problem List: (1) Pneumonia ICD Codes: J18.9 - Pneumonia, unspecified organism SNOMED: 481344843 Qualifiers: Qualified Codes: J18.9 - Pneumonia, unspecified organism (2) Sickle cell anemia ICD Codes: D57.1 - Sickle-cell disease without crisis SNOMED: 256079111 Qualifiers: Qualified Codes: D57.00 - Hb-SS disease with crisis, unspecified (3) Severe sepsis ICD Codes: A41.9 - Sepsis, unspecified organism; R65.20 - Severe sepsis without septic shock SNOMED: 40776106 Status: stable, not improved Assessment/Plan: cont vent support wean as able monitor abg resp care suctioning as needed trach care dvt/stress ulcer prophylaxis ivf picc care transfuse as needed ivf on incorrect dose of keppra(1000 instead of 500) dose adjusted backt o 500 d/w mother Lalo Ahumada MD Sep 06, 2020 22:14
[2020-09-07] VITALS: BP 111/86
--- NOTE | 2020-09-07 01:00 | NUR ---
NURSE NOTES: Pt is lying in bed, awake, not in distress, has occasional grimace, given acetaminophen liquid. Pt is given sponge bath, linens changed, patient's gown is changed. Pt is repositioned. Trach is suctioned, tolerating vent setting with O2 sat 89-100%. G tube has 30 ml residual, flushed, and patent. PICC line is intact and patent. C Diff specimen is collected. Will continue to monitor pt. Will continue with the plan of care.
[2020-09-07] MEDS: Acetaminophen 650mg/20.3ml GT PRN ×2 (01:27→21:57)
[2020-09-07 03:07] LABS: HEMOGLOBIN 7.6 G/DL (14.2-18.0); MEAN CORPUSCULAR VOLUME 91 FL (80-99); PLATELET COUNT 207 K/UL (150-450); RED BLOOD COUNT 2.41 M/UL (4.70-6.10); RED CELL DISTRIBUTION WIDTH 15.2 % (11.6-14.8); WHITE BLOOD COUNT 19.1 K/UL (4.8-10.8)
[2020-09-07 03:20] LABS: ANION GAP 11 mmol/L (5-15); BLOOD UREA NITROGEN 66 mg/dL (7-18); CALCIUM 8.7 MG/DL (8.5-10.1); CARBON DIOXIDE 20 MMOL/L (21-32); CHLORIDE 112 MMOL/L (98-107); CREATININE 0.8 MG/DL (0.55-1.30); POTASSIUM 3.9 MMOL/L (3.5-5.1); SODIUM 143 MMOL/L (136-145)
--- NOTE | 2020-09-07 03:39 | NUR ---
NURSE NOTES: Pt is asleep, not in distress. HR is noted to be 56. Sinus Momo on the monitor. Pt is arousable. Will continue to monitor pt.
[2020-09-07 04:00] VITALS: BP 110/60
--- NOTE | 2020-09-07 06:42 | NUR ---
NURSE NOTES: Dr. Castillo saw the pt at bedside. Informed Dr. Castillo of Hgb 7.6. Dr Castillo wants to monitor pt. No orders as of this time.
--- NOTE | 2020-09-07 07:10 | NUR ---
NURSE NOTES:REC,D REPORT FROM [facility]CHNICIAN . REC,D PT WITH HOB ELEVATED 45 DEGREE AWAKE ,EYES OPENS ALERTX1 ,TRACH TO VENT DEPENDENT.PT TOLERATING WELL CURRENTS VENT SETTING ,O2 SAT 100%.RENDERED TRACH CARE AND ORAL HYGIENE,MOD AMT OF WHITE TICK SECRETIONS NOTED . PT RECEIVING VITAL AF @ 60CC/HRS ,NO RESIDUAL ,TOLERATING WELL. RECTAL TUBE IN PLACE NO STOOLS NOTED AT THIS TIME. PT REPOSITIONED Q 2HOURS TO PROVIDE COMFORT AND TO PREVENT FURTHER SKIN BREAK DOWN. NO ACUTE DISTRESS NOTED AT THIS TIME WILL CONT TO MONITOR.
--- NOTE | 2020-09-07 07:11 | Hematology/Onc Progress Note ---
Assessment/Plan Assessment/Plan Assessment and Recs # Sickle cell crisis noted upon admission, with hx of sickle cell anemia --> hgb 6.5-->7.1-->6.6->>>>7.3-->7.1 -->6.7-->6.5-->6.8->7-->7.2->6.5-->6.7-->6.5->5.3-->7.8->8.4-->8.5->7.6 --> 1 unit prbc on 07/23, 1 unit 08/27, 2 units prbc 08/31 --> ivfs have been started --> anemia panel ordered, with elev ferritin --> recommend to consider hydrea when discharged if stable --> likely does have mild hemolysis --> hgb electrophoresis show evidence of sickle cell trait --> FLOW CYTOMETRY IS NEGATIVE # Hyperferritinemia with elevated ferritin that was noted --> likely consider exjade once discharged though at this time not limiting --> ferritin can >2000 with recurrent transfusions --> trend over time, for EOD observe --> 08/30 deferasirox and ferriprox started (continue these for iron overload) # Leukocytosis poa with Severe sepsis due to line infection --> abx: vancomycin-->cefepime/colistin-->cefepime--linezolid --> wbc 25-->31-->29-->25-->37--->31-->24->19-->18-->17-->18 --> FLOW CYTOMETRY NEG # Respiratory failure s/p Ventilator dependent --> as per pulm, vent adjustment # Port-A-Cath in place --> s/p abx --> s/p permacath removal # Transaminitis -->liver function elevated --> per gi # Dt ppx scds The timing of this note does not necessarily reflect the time of the patient was seen. Greatly appreciate consultation. Subjective Constitutional: Denies: no symptoms, chills, fever, malaise, weakness, other Cardiovascular: Denies: no symptoms, chest pain, edema, irregular heart rate, lightheadedness, palpitations, syncope, other Respiratory: Denies: no symptoms, cough, shortness of breath, SOB with excertion, SOB at rest, sputum, wheezing, other Gastrointestinal/Abdominal: Denies: no symptoms, abdomen distended, abdominal pain, black stools, tarry stools, blood in stool, constipated, diarrhea, difficulty swallowing, nausea, poor appetite, poor fluid intake, rectal bleeding, vomiting, other Genitourinary: Denies: no symptoms, burning, discharge, frequency, flank pain, hematuria, incontinence, pain, urgency, other Neurologic/Psychiatric: Denies: no symptoms, anxiety, depressed, emotional problems, headache, numbness, paresthesia, pre-existing deficit, seizure, tingling, tremors, weakness, other Endocrine: Denies: no symptoms, excessive sweating, flushing, intolerance to cold, intolerance to heat, increased hunger, increased thirst, increased urine, unexplained weight gain, unexplained weight loss, other Allergies: Coded Allergies: ADHESIVE TAPE (Verified Allergy, Unknown, 07/20/20) Uncoded Allergies: TAPE (Allergy, Unknown, 08/07/20) Subjective 08/19 no acute events, vent, iv abx, labs reviewed 08/20 labs reviewed, seen by Dr. Celaya and mychal Rn, holding off prbc 08/21 remains on abx with persistently elev wbc, on abx broad spectrum 08/22 labs reviewed, no bleeding, meds noted, wbc still 25k, hgb 6.8, transfuse pr 08/23 cbc has been ordered, meds noted, on cefepime, have mychal path is flow back 08/24 hob is elevated, labs noted, hgb 7, consider for transfusions soon, wbc is better 08/25 labs are reviewed, wbc is worse, flow was done and is negative 08/27 is in the icu, labs noted, on cefepime and vanc, wbc 31 08/29 labs reviewed, hgb 6.7, mychal Feldman in am, no bleeding, seen with Belia 08/30 remains on vent, have restart home chelating agents, hgb 6.5 08/31 feeling better, hgb 5.3, have mychal Avalos Artemio to get 2 units prbc stat 09/01 labs are noted, wbc 19, hgb 7.8, no hemolysis, meds reviewed 09/03 labs are noted, wbc 18, on cefepime, hgb better hgb 8.4 09/04 labs noted, no bleeding, cbc is pending, on abx 09/05 remains on abx, hgb 8.5, holding off transfusion, nv, on vent, gt 09/06 labs noted, will order retic, continue on iron chelating meds for iron overload 09/07 meds noted, labs reviewd, hgb 7.6, will monitor for now, cbc tomorrow Objective Objective Current Medications Medications (Trade) Dose Ordered Sig/Piedad Route PRN Reason Start Time Stop Time Status Last Admin Dose Admin Acetaminophen (Tylenol) 650 mg Q4H PRN GT Mild Pain (Pain Scale 1-3) 08/24/20 13:00 09/23/20 12:59 09/07/20 01:27 Acetaminophen (Tylenol) 650 mg Q6H PRN GT Temp >100.5 08/10/20 20:20 09/09/20 20:19 09/01/20 20:43 Chlorhexidine Gluconate (Christy-Hex 2%) 1 applic DAILY@1999 TOPIC 08/14/20 20:00 11/12/20 19:59 09/06/20 20:52 Folic Acid (Folate) 1 mg DAILY GT 08/11/20 09:00 09/07/20 08:59 09/06/20 08:23 Levetiracetam (Keppra) 500 mg Q12HR NG 09/04/20 21:00 10/04/20 20:59 09/06/20 20:53 Linezolid 300 ml @ 300 mls/hr Q12HR IVPB 08/29/20 11:00 09/07/20 10:59 09/06/20 20:53 Loperamide HCl (Imodium) 4 mg Q6H PRN NG Diarrhea 09/06/20 15:30 10/06/20 15:29 09/07/20 03:08 Metoclopramide HCl (Reglan) 10 mg Q8H PRN IVP Nausea & Vomiting 08/26/20 11:15 09/25/20 11:14 08/27/20 20:46 Multivitamins (Multivitamins) 1 tab DAILY GT 08/11/20 09:00 09/07/20 08:59 09/06/20 08:23 Pantoprazole (Protonix) 40 mg EVERY 12 HOURS IVP 08/13/20 22:15 09/12/20 22:14 09/06/20 20:52 Patient Own Medication (Patient's Own Med) 2 ea TID GT 08/30/20 09:00 09/29/20 08:59 09/06/20 18:16 Patient Own Medication (Patient's Own Med) 3 ea DAILY GT 08/30/20 09:00 09/29/20 08:59 09/06/20 08:23 Sodium Chloride 1,000 ml @ 75 mls/hr [id number] IV 09/06/20 18:04 10/06/20 18:03 09/07/20 06:50 Ursodiol (Actigall) 300 mg TWICE A DAY ORAL 09/01/20 09:00 11/30/20 08:59 09/06/20 18:16 Last 24 Hour Vital Signs Date Time Temp Pulse Resp B/P (MAP) Pulse Ox O2 Delivery O2 Flow Rate FiO2 09/07/20 04:00 56 09/07/20 04:00 Mechanical Ventilator Mechanical Ventilator 09/07/20 04:00 40 09/07/20 04:00 97.9 62 18 110/60 (77) 100 62 09/07/20 02:33 65 12 40 09/07/20 00:00 98.0 66 18 111/86 (94) 95 66 09/07/20 00:00 Mechanical Ventilator Mechanical Ventilator 09/06/20 23:31 72 09/06/20 22:30 67 20 40 09/06/20 20:00 97.7 61 17 113/63 (80) 97 09/06/20 20:00 63 09/06/20 20:00 40 09/06/20 20:00 Mechanical Ventilator Mechanical Ventilator 09/06/20 18:30 64 14 40 09/06/20 16:00 97.7 69 18 98/53 (68) 96 09/06/20 16:00 40 09/06/20 16:00 Mechanical Ventilator Mechanical Ventilator 09/06/20 16:00 61 09/06/20 15:00 59 14 40 09/06/20 12:00 40 09/06/20 12:00 67 09/06/20 12:00 98.1 67 18 98/54 (69) 100 09/06/20 12:00 Mechanical Ventilator Mechanical Ventilator 09/06/20 11:40 66 16 40 09/06/20 08:00 40 09/06/20 08:00 Mechanical Ventilator Mechanical Ventilator 09/06/20 08:00 97.7 87 19 117/63 (81) 98 09/06/20 08:00 62 09/06/20 07:40 65 14 40 09/06/20 04:00 Mechanical Ventilator Mechanical Ventilator 09/06/20 04:00 40 09/06/20 04:00 97.7 72 13 104/63 (77) 100 09/06/20 04:00 69 09/06/20 02:37 62 17 40 09/06/20 00:00 40 09/06/20 00:00 63 09/06/20 00:00 97.7 66 15 110/70 (83) 100 09/06/20 00:00 Mechanical Ventilator Mechanical Ventilator 09/05/20 23:00 66 16 40 09/05/20 20:00 40 09/05/20 20:00 Mechanical Ventilator Mechanical Ventilator 09/05/20 20:00 97.7 62 15 105/57 (73) 100 09/05/20 19:42 59 09/05/20 19:25 65 19 40 09/05/20 16:00 97.5 63 13 104/58 (73) 100 09/05/20 16:00 Mechanical Ventilator Mechanical Ventilator 09/05/20 16:00 65 09/05/20 16:00 40 09/05/20 14:45 69 16 40 09/05/20 12:00 Mechanical Ventilator Mechanical Ventilator 09/05/20 12:00 66 09/05/20 12:00 40 09/05/20 12:00 97.0 70 13 107/67 (80) 100 09/05/20 11:15 66 17 40 09/05/20 08:00 97.2 58 16 119/78 (92) 100 09/05/20 08:00 56 09/05/20 08:00 40 09/05/20 08:00 Mechanical Ventilator Mechanical Ventilator 09/05/20 07:20 58 19 40 Intake and Output 09/06/20 09/07/20 18:59 06:59 Intake Total 1110 ml 1725 ml Output Total 1100 ml 1010 ml Balance 10 ml 715 ml Free Water 90 ml IV Total 300 ml 1125 ml Tube Feeding 720 ml 600 ml Output Urine Total 1100 ml 1000 ml Stool Total 10 ml # Bowel Movements 4 3 Labs Test 09/05/20 04:10 09/06/20 03:20 09/07/20 03:00 White Blood Count 17.7 K/UL (4.8-10.8) 18.0 K/UL (4.8-10.8) 19.1 K/UL (4.8-10.8) Red Blood Count 2.69 M/UL (4.70-6.10) 2.70 M/UL (4.70-6.10) 2.41 M/UL (4.70-6.10) Hemoglobin 8.5 G/DL (14.2-18.0) 8.5 G/DL (14.2-18.0) 7.6 G/DL (14.2-18.0) Hematocrit 24.8 % (42.0-52.0) 24.7 % (42.0-52.0) 22.0 % (42.0-52.0) Mean Corpuscular Volume 92 FL (80-99) 92 FL (80-99) 91 FL (80-99) Mean Corpuscular Hemoglobin 31.5 PG (27.0-31.0) 31.4 PG (27.0-31.0) 31.5 PG (27.0-31.0) Mean Corpuscular Hemoglobin Concent 34.2 G/DL (32.0-36.0) 34.3 G/DL (32.0-36.0) 34.5 G/DL (32.0-36.0) Red Cell Distribution Width 14.9 % (11.6-14.8) 15.1 % (11.6-14.8) 15.2 % (11.6-14.8) Platelet Count 255 K/UL (150-450) 230 K/UL (150-450) 207 K/UL (150-450) Mean Platelet Volume 7.6 FL (6.5-10.1) 7.2 FL (6.5-10.1) 7.1 FL (6.5-10.1) Neutrophils (%) (Auto) 61.0 % (45.0-75.0) % (45.0-75.0) % (45.0-75.0) Lymphocytes (%) (Auto) 19.4 % (20.0-45.0) % (20.0-45.0) % (20.0-45.0) Monocytes (%) (Auto) 9.7 % (1.0-10.0) % (1.0-10.0) % (1.0-10.0) Eosinophils (%) (Auto) 7.6 % (0.0-3.0) % (0.0-3.0) % (0.0-3.0) Basophils (%) (Auto) 2.3 % (0.0-2.0) % (0.0-2.0) % (0.0-2.0) Sodium Level 139 MMOL/L (136-145) 141 MMOL/L (136-145) 143 MMOL/L (136-145) Potassium Level 4.1 MMOL/L (3.5-5.1) 4.2 MMOL/L (3.5-5.1) 3.9 MMOL/L (3.5-5.1) Chloride Level 110 MMOL/L (98-107) 107 MMOL/L (98-107) 112 MMOL/L (98-107) Carbon Dioxide Level 21 MMOL/L (21-32) 21 MMOL/L (21-32) 20 MMOL/L (21-32) Blood Urea Nitrogen 62 mg/dL (7-18) 67 mg/dL (7-18) 66 mg/dL (7-18) Creatinine 1.0 MG/DL (0.55-1.30) 0.9 MG/DL (0.55-1.30) 0.8 MG/DL (0.55-1.30) Estimat Glomerular Filtration Rate > 60 mL/min (>60) > 60 mL/min (>60) > 60 mL/min (>60) Glucose Level 120 MG/DL (74-106) 107 MG/DL (74-106) 98 MG/DL (74-106) Calcium Level 9.3 MG/DL (8.5-10.1) 9.3 MG/DL (8.5-10.1) 8.7 MG/DL (8.5-10.1) Total Bilirubin 1.2 MG/DL (0.2-1.0) Direct Bilirubin 0.6 MG/DL (0.0-0.3) Aspartate Amino Transf (AST/SGOT) 42 U/L (15-37) Alanine Aminotransferase (ALT/SGPT) 53 U/L (12-78) Alkaline Phosphatase 368 U/L (46-116) Total Protein 8.1 G/DL (6.4-8.2) Albumin 2.9 G/DL (3.4-5.0) Globulin 5.2 g/dL Albumin/Globulin Ratio 0.6 (1.0-2.7) Differential Total Cells Counted 100 100 Neutrophils % (Manual) 69 % (45-75) 64 % (45-75) Lymphocytes % (Manual) 20 % (20-45) 19 % (20-45) Monocytes % (Manual) 5 % (1-10) 10 % (1-10) Eosinophils % (Manual) 5 % (0-3) 6 % (0-3) Basophils % (Manual) 1 % (0-2) 1 % (0-2) Band Neutrophils 0 % (0-8) 0 % (0-8) Platelet Estimate Adequate Adequate Platelet Morphology Normal Normal Anisocytosis 1+ Reticulocyte Count 1.0 % (0.5-2.0) Anion Gap 13 mmol/L (5-15) 11 mmol/L (5-15) Micro Microbiology Date/Time Source Procedure Growth Status 09/07/20 02:00 Stool Clostridium difficile Toxin Assay - Final Complete Height (Feet): 5 Height (Inches): 8.00 Weight (Pounds): 113 Objective Physical Exam General: alert, Chronically Ill Head: other - Large right-sided craniotomy defect well-heale ++, tra cheotomy/vent Respiratory: crackles, rales, other - right side chest wall tenderness Cardiovascular: tachycardia Gastrointestinal: normal inspection, soft, gt++ Musk: decreased range of motion, other - atrophic, motor weakness Neurologic: alert, motor weakness, other - left hemineglect Psychiatric: normal inspection Skin: no rash : garcia++ Roshna Castillo MD Sep 07, 2020 07:11
--- NOTE | 2020-09-07 07:11 | General Progress Note ---
Subjective ROS Limited/Unobtainable: No Constitutional: Reports: malaise, weakness HEENT: Reports: no symptoms Cardiovascular: Reports: no symptoms Respiratory: Reports: no symptoms Gastrointestinal/Abdominal: Reports: difficulty swallowing Genitourinary: Reports: no symptoms Neurologic/Psychiatric: Reports: pre-existing deficit, seizure Endocrine: Reports: no symptoms Hematologic/Lymphatic: Reports: anemia Allergies: Coded Allergies: ADHESIVE TAPE (Verified Allergy, Unknown, 07/20/20) Uncoded Allergies: TAPE (Allergy, Unknown, 08/07/20) All Systems: reviewed and negative except above Subjective c/o generalized pain last night. no fevers or chills. more alert. no reports of szs. on IVF Objective Last 24 Hour Vital Signs Date Time Temp Pulse Resp B/P (MAP) Pulse Ox O2 Delivery O2 Flow Rate FiO2 09/07/20 04:00 56 09/07/20 04:00 Mechanical Ventilator Mechanical Ventilator 09/07/20 04:00 40 09/07/20 04:00 97.9 62 18 110/60 (77) 100 62 09/07/20 02:33 65 12 40 09/07/20 00:00 98.0 66 18 111/86 (94) 95 66 09/07/20 00:00 Mechanical Ventilator Mechanical Ventilator 09/06/20 23:31 72 09/06/20 22:30 67 20 40 09/06/20 20:00 97.7 61 17 113/63 (80) 97 09/06/20 20:00 63 09/06/20 20:00 40 09/06/20 20:00 Mechanical Ventilator Mechanical Ventilator 09/06/20 18:30 64 14 40 09/06/20 16:00 97.7 69 18 98/53 (68) 96 09/06/20 16:00 40 09/06/20 16:00 Mechanical Ventilator Mechanical Ventilator 09/06/20 16:00 61 09/06/20 15:00 59 14 40 09/06/20 12:00 40 09/06/20 12:00 67 09/06/20 12:00 98.1 67 18 98/54 (69) 100 09/06/20 12:00 Mechanical Ventilator Mechanical Ventilator 09/06/20 11:40 66 16 40 09/06/20 08:00 40 09/06/20 08:00 Mechanical Ventilator Mechanical Ventilator 09/06/20 08:00 97.7 87 19 117/63 (81) 98 09/06/20 08:00 62 09/06/20 07:40 65 14 40 Intake and Output 09/06/20 09/07/20 18:59 06:59 Intake Total 1110 ml 1725 ml Output Total 1100 ml 1010 ml Balance 10 ml 715 ml Free Water 90 ml IV Total 300 ml 1125 ml Tube Feeding 720 ml 600 ml Output Urine Total 1100 ml 1000 ml Stool Total 10 ml # Bowel Movements 4 3 Laboratory Tests 09/07/20 03:00: White Blood Count 19.1H, Red Blood Count 2.41L, Hemoglobin 7.6L, Hematocrit 22.0L, Mean Corpuscular Volume 91, Mean Corpuscular Hemoglobin 31.5H, Mean Corpu scular Hemoglobin Concent 34.5, Red Cell Distribution Width 15.2H, Platelet Count 207, Mean Platelet Volume 7.1, Neutrophils (%) (Auto) , Lymphocytes (%) (Auto) , Monocytes (%) (Auto) , Eosinophils (%) (Auto) , Basophils (%) (Auto) , Differential Total Cells Counted 100, Neutrophils % (Manual) 64, Lymphocytes % (Manual) 19L, Monocytes % (Manual) 10, Eosinophils % (Manual) 6H, Basophils % (Manual) 1, Band Neutrophils 0, Platelet Estimate Adequate, Platelet Morphology Normal, Sodium Level 143, Potassium Level 3.9, Chloride Level 112H, Carbon Dioxide Level 20L, Anion Gap 11, Blood Urea Nitrogen 66H, Creatinine 0.8, Estimat Glomerular Filtration Rate > 60, Glucose Level 98, Calcium Level 8.7 Height (Feet): 5 Height (Inches): 8.00 Weight (Pounds): 113 Objective General Appearance: WD/WN, lethargic EENT: normal ENT inspection. trach c/d/i Neck: normal alignment Cardiovascular: normal peripheral pulses, normal rate Respiratory/Chest: chest wall non-tender, lungs clear, normal breath sounds Abdomen: normal bowel sounds, non tender, soft, no organomegaly Edema: no edema noted Arm (L), no edema noted Arm (R) Neurologic: poorly responsive Assessment/Plan Problem List: (1) Pneumonia ICD Codes: J18.9 - Pneumonia, unspecified organism SNOMED: 107163129 Qualifiers: Qualified Codes: J18.9 - Pneumonia, unspecified organism (2) Sickle cell anemia ICD Codes: D57.1 - Sickle-cell disease without crisis SNOMED: 709881538 Qualifiers: Qualified Codes: D57.00 - Hb-SS disease with crisis, unspecified (3) Severe sepsis ICD Codes: A41.9 - Sepsis, unspecified organism; R65.20 - Severe sepsis without septic shock SNOMED: 29630948 Status: stable, not improved Assessment/Plan: cont vent support wean as able monitor abg resp care suctioning as needed trach care dvt/stress ulcer prophylaxis ivf picc care transfuse as needed- monitor labs ivf sz rx with paddy d/w mother tamir luu planning Lalo Celaya MD Sep 07, 2020 07:11
--- NOTE | 2020-09-07 07:15 | NUR ---
NURSE NOTES: REC,D BED SIDE REPORT FROM RADHA STODDARD STAFF OF [employer]. REC,D PT WITH HOB ELEVATED AWAKE AND VERY AGITATED UNABLE TO FALLOWS SIMPLE COMMANDS .PT PULLING MEDICAL DEVICES .PT VERY STRONG WITH BILAT SOFT WRIST RESTRAINTS FOR PT SAFETY TO PREVENTING FROM INJURIES. PT TRACH TO VENT TOLERATING WELL CURRENTS VENT SETTINGS ,RENDERED TRACH CARE AND ORAL CARE,SX,D LG AMT OF FROTHY SECRETIONS. GTF ON HOLD AT THIS TIME AND WILL RESUME FEEDING AT 1000AM PER ORDERS. PT WITH 3 WAY F/C AND CONNECTED TO CBI,DRAINING WELL CLEAR YELLOW URINE NOTE. FULL BODY ASSESSMENT DONE. WILL CONT TO MONITOR. Addendum: 09/07/20 at 1120 by TRINITY MCCLELLAND RN WRONG PATIENT.
--- NOTE | 2020-09-07 07:20 | NUR ---
NURSE HAND-OFF REPORT: Important Events on Shift: Low hgb- Dr. Castillo aware. Pt is stable, SB x 1- pt is asymptomatic, and arousable Patient Status: Stable Diet: Gtube feeding Pending Orders: None Pending Results/Labs:None Pending MD notification:None Latest Vital Signs: Temperature 97.9 , Pulse 62 , B/P 110 /60 , Respiratory Rate 18 , O2 SAT 100 , Mechanical Ventilator, O2 Flow Rate . Vital Sign Comment: WNL EKG Rhythm: Sinus Rhythm Rhythm change?: N Notified?: N -GRACE JIMENEZ Response: Latest Stevens Fall Score: 55 Fall Risk: High Risk Safety Measures: Call light Within Reach, Bed Alarm Zone 2, Side Rails Side Rails x3, Bed position Low and Locked. Fall Precautions: Yellow Socks Yellow Gown Door Sign Patient Fall Education Report given to [ARLYN Robert].
[2020-09-07 08:00] VITALS: BP 104/49
--- NOTE | 2020-09-07 08:36 | Critical Care Progress Note ---
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 Port-A-Cath Status post removal of implanted right chest wall Port-A-Cath Sickle cell crisis Sickle cell anemia Chronic respiratory failure, ventilator dependent, with tracheostomy status Transaminitis Seizure disorder acute pneumonia leukocytosis recurrent sepsis PLAN care noted d/w surgery IV antibiotics per ID respiratory care as is Ventilatory support- volume ventilation as is oxygen adequate SNF meds supportive care suction no wean planned prognosis guarded medications/laboratory data/nursing notes reviewed in detail note reviewed and edited care discussed with RN and RT Critical Care - Subjective ROS Limited/Unobtainable: Yes Condition: unchanged EKG Rhythm: Sinus Rhythm Residuals: minimal Tube Feeding Tolerated: yes I&O: Intake and Output 09/06/20 09/07/20 18:59 06:59 Intake Total 1110 ml 1785 ml Output Total 1100 ml 1010 ml Balance 10 ml 775 ml Free Water 90 ml IV Total 300 ml 1125 ml Tube Feeding 720 ml 660 ml Output Urine Total 1100 ml 1000 ml Stool Total 10 ml # Bowel Movements 4 3 Critical Care - Objective ET-Tube: 7.0 ET Position: 23 Last 24 Hour Vital Signs Date Time Temp Pulse Resp B/P (MAP) Pulse Ox O2 Delivery O2 Flow Rate FiO2 09/07/20 07:15 62 13 40 09/07/20 04:00 56 09/07/20 04:00 Mechanical Ventilator Mechanical Ventilator 09/07/20 04:00 40 09/07/20 04:00 97.9 62 18 110/60 (77) 100 62 09/07/20 02:33 65 12 40 09/07/20 00:00 98.0 66 18 111/86 (94) 95 66 09/07/20 00:00 Mechanical Ventilator Mechanical Ventilator 09/06/20 23:31 72 09/06/20 22:30 67 20 40 09/06/20 20:00 97.7 61 17 113/63 (80) 97 09/06/20 20:00 63 09/06/20 20:00 40 09/06/20 20:00 Mechanical Ventilator Mechanical Ventilator 09/06/20 18:30 64 14 40 09/06/20 16:00 97.7 69 18 98/53 (68) 96 09/06/20 16:00 40 09/06/20 16:00 Mechanical Ventilator Mechanical Ventilator 09/06/20 16:00 61 09/06/20 15:00 59 14 40 09/06/20 12:00 40 09/06/20 12:00 67 09/06/20 12:00 98.1 67 18 98/54 (69) 100 09/06/20 12:00 Mechanical Ventilator Mechanical Ventilator 09/06/20 11:40 66 16 40 Objective: WDWN NAD reduced breath sounds bilaterally without rhonchi or wheeze [id number] without MRG NABS nontender GT no CCE reduced LOC Micro: Microbiology Date/Time Source Procedure Growth Status 09/07/20 02:00 Stool Clostridium difficile Toxin Assay - Final Complete James Nuñez MD Sep 07, 2020 08:36
--- NOTE | 2020-09-07 09:53 | NUR ---
CASE MANAGEMENT: REVIEW SI: RESP FAILURE . SICKLE CELL DISEASE . SEPSIS REMOVAL OF IMPLANTED RIGHT CHEST WALL PORT-A-CATH & REPLACEMENT TRACHEOSTOMY 08/30 T 97.2 HR 56 RR 13 BP 104/49 SAT 95% MECH VENT FIO2 40 WBC 19.1 H/H 7.6/22.0 BUN 66 IS: ZYVOX IV Q12HR KEPPRA GT Q12HR PROTONIX IV Q12HR NS IVF @ 75ML/HR GT FEEDING STEP DOWN UNIT STATUS DCP: PATIENT IS FROM [facility]
--- NOTE | 2020-09-07 10:10 | NUR ---
RD ASSESSMENT & RECOMMENDATIONS SEE CARE ACTIVITY FOR COMPLETE ASSESSMENT DAILY ESTIMATED NEEDS: Needs based on Underweight, Critical care/ 50.8kg 30-35 kcals/kg 6455-9080 total kcals 1.25-2 g protein/kg 64-102 g total protein 25-30 mL/kg 4347-5172 total fluid mLs NUTRITION DIAGNOSIS: Swallowing difficulty R/T respiratory status, dysphagia as evidenced by h/o craniotomy, trach/vent dep, s/p dislodged trach and removal (08/25), s/p trach revision (08/30), on GT feeds. CURRENT TF:Vital 1.2 @ 60ml/hr x 24 hrs ENTERAL NUTRITION RECOMMENDATIONS: Vital AF 1.2 @ 60ml/hr x 24 hrs to provide 1440ml, 1728kcal, 108g prot, 1168ml free water * LOWER goal rate to 60ml/hr x 24 hrs to not exceed est needs -> meets 100% est needs * Increase water flushes: 125ml q 8hrs * HOB over 30 degrees ADDITIONAL RECOMMENDATIONS: * Maintain calibrated bedscale wt * Add probiotics for diarrhea * Skin integrity: TF rec @ goal provides 100% RDI * Monitor lytes (updated phos and mag levels) naida w/ diarrhea * Monitor BGs closely for hypo and hyperglycemia (no further episodes of hypoglycemia BG 67 on 08/16) * Monitor hydration status: BUN trend up, IVF added 09/07
--- NOTE | 2020-09-07 10:11 | General Progress Note ---
Subjective Allergies: Coded Allergies: ADHESIVE TAPE (Verified Allergy, Unknown, 07/20/20) Uncoded Allergies: TAPE (Allergy, Unknown, 08/07/20) Subjective calm and comfortable tolerating feeds C diff negative again Objective Last 24 Hour Vital Signs Date Time Temp Pulse Resp B/P (MAP) Pulse Ox O2 Delivery O2 Flow Rate FiO2 09/07/20 08:00 98.2 71 20 104/49 (67) 100 71 09/07/20 08:00 Mechanical Ventilator Mechanical Ventilator 09/07/20 08:00 60 09/07/20 07:15 62 13 40 09/07/20 04:00 56 09/07/20 04:00 Mechanical Ventilator Mechanical Ventilator 09/07/20 04:00 40 09/07/20 04:00 97.9 62 18 110/60 (77) 100 62 09/07/20 02:33 65 12 40 09/07/20 00:00 98.0 66 18 111/86 (94) 95 66 09/07/20 00:00 Mechanical Ventilator Mechanical Ventilator 09/06/20 23:31 72 09/06/20 22:30 67 20 40 09/06/20 20:00 97.7 61 17 113/63 (80) 97 09/06/20 20:00 63 09/06/20 20:00 40 09/06/20 20:00 Mechanical Ventilator Mechanical Ventilator 09/06/20 18:30 64 14 40 09/06/20 16:00 97.7 69 18 98/53 (68) 96 09/06/20 16:00 40 09/06/20 16:00 Mechanical Ventilator Mechanical Ventilator 09/06/20 16:00 61 09/06/20 15:00 59 14 40 09/06/20 12:00 40 09/06/20 12:00 67 09/06/20 12:00 98.1 67 18 98/54 (69) 100 09/06/20 12:00 Mechanical Ventilator Mechanical Ventilator 09/06/20 11:40 66 16 40 Intake and Output 09/06/20 09/07/20 18:59 06:59 Intake Total 1110 ml 1785 ml Output Total 1100 ml 1010 ml Balance 10 ml 775 ml Free Water 90 ml IV Total 300 ml 1125 ml Tube Feeding 720 ml 660 ml Output Urine Total 1100 ml 1000 ml Stool Total 10 ml # Bowel Movements 4 3 Laboratory Tests 09/07/20 03:00: White Blood Count 19.1H, Red Blood Count 2.41L, Hemoglobin 7.6L, Hematocrit 22.0L, Mean Corpuscular Volume 91, Mean Corpuscular Hemoglobin 31.5H, Mean Corpuscular Hemoglobin Concent 34.5, Red Cell Distribution Width 15.2H, Platelet Count 207, Mean Platelet Volume 7.1, Neutrophils (%) (Auto) , Lymphocytes (%) (Auto) , Monocytes (%) (Auto) , Eosinophils (%) (Auto) , Basophils (%) (Auto) , Differential Total Cells Counted 100, Neutrophils % (Manual) 64, Lymphocytes % (Manual) 19L, Monocytes % (Manual) 10, Eosinophils % (Manual) 6H, Basophils % (Manual) 1, Band Neutrophils 0, Platelet Estimate Adequate, Platelet Morphology Normal, Sodium Level 143, Potassium Level 3.9, Chloride Level 112H, Carbon Dioxide Level 20L, Anion Gap 11, Blood Urea Nitrogen 66H, Creatinine 0.8, Estimat Glomerular Filtration Rate > 60, Glucose Level 98, Calcium Level 8.7 Height (Feet): 5 Height (Inches): 8.00 Weight (Pounds): 113 Objective Thin AA Man HEENT s/p craniotomy, (+) ETT neck (+) dressing Coarse BS, ronchi, tachypnic RR/tachy abd soft (+) GT no edema Assessment/Plan Status: stable, not improved Assessment/Plan: Assessment - respiratory distress - intubated - recent occluded GT - replaced - abnormal LFT - 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
[2020-09-07] MEDS: Pantoprazole Inj IVP SCH ×2 (10:15→20:01)
[2020-09-07] MEDS: DEFERASIROX 360 MG GT SCH (10:15)
[2020-09-07] MEDS: FERRIPROX GT SCH ×3 (10:15→18:18)
[2020-09-07] MEDS: levETIRAcetam 500mg/5ml Liquid NG SCH ×2 (10:16→20:01)
[2020-09-07] MEDS: Linezolid 600mg/300ml (Pre-Mix) IVPB SCH (10:16)
[2020-09-07] MEDS: Ursodiol 300mg cap ORAL SCH ×2 (10:16→18:18)
[2020-09-07 12:00] VITALS: BP 103/57
--- NOTE | 2020-09-07 13:21 | NUR ---
DISCHARGE PLANNING [facility] IS INTERESTED IN ACCEPTING PATIENT RE-FAXED CLINICALS FOR REVIEW [facility] ATT: CHANDLER OR HIEU T:[phone] AWAITING ACCEPTANCE
--- NOTE | 2020-09-07 14:14 | Infectious Diseases Prog Note ---
Assessment/Plan Assessment/Plan A: 1. VRE sepsis treated 2. Aspiration pneumonia treated MRSA, Pseudomonas & Serratia in culture COVID19 X 1: negative. 3. Leukocytosis 4. Sickle cell disease. 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 VDRF 8. Line infection, line removed 9. Serratia pneumonia 10.Tracheostomy malfunction, replaced PLAN: 1. Observe off of antibiotic Subjective ROS Limited/Unobtainable: Yes Constitutional: Reports: no symptoms Respiratory: Reports: no symptoms Allergies: Coded Allergies: ADHESIVE TAPE (Verified Allergy, Unknown, 07/20/20) Uncoded Allergies: TAPE (Allergy, Unknown, 08/07/20) Objective Last 24 Hour Vital Signs Date Time Temp Pulse Resp B/P (MAP) Pulse Ox O2 Delivery O2 Flow Rate FiO2 09/07/20 12:00 99.1 67 16 103/57 (72) 100 67 09/07/20 12:00 64 09/07/20 12:00 40 09/07/20 12:00 Mechanical Ventilator Mechanical Ventilator 09/07/20 11:00 65 16 40 09/07/20 08:00 98.2 71 20 104/49 (67) 100 71 09/07/20 08:00 Mechanical Ventilator Mechanical Ventilator 09/07/20 08:00 60 09/07/20 08:00 40 09/07/20 07:15 62 13 40 09/07/20 04:00 56 09/07/20 04:00 Mechanical Ventilator Mechanical Ventilator 09/07/20 04:00 40 09/07/20 04:00 97.9 62 18 110/60 (77) 100 62 09/07/20 02:33 65 12 40 09/07/20 00:00 98.0 66 18 111/86 (94) 95 66 09/07/20 00:00 Mechanical Ventilator Mechanical Ventilator 09/06/20 23:31 72 09/06/20 22:30 67 20 40 09/06/20 20:00 97.7 61 17 113/63 (80) 97 09/06/20 20:00 63 09/06/20 20:00 40 09/06/20 20:00 Mechanical Ventilator Mechanical Ventilator 09/06/20 18:30 64 14 40 09/06/20 16:00 97.7 69 18 98/53 (68) 96 09/06/20 16:00 40 09/06/20 16:00 Mechanical Ventilator Mechanical Ventilator 09/06/20 16:00 61 09/06/20 15:00 59 14 40 Height (Feet): 5 Height (Inches): 8.00 Weight (Pounds): 113 General Appearance: no acute distress HEENT: status post trach, other - s/p craniotomu Respiratory/Chest: lungs clear, other - on ventilator Cardiovascular: normal rate, other - Left arm PICC line Abdomen: soft, non tender, other - GT feeding Extremities: no edema Neurologic/Psychiatric: alert, responsive Musculoskeletal: atrophy Microbiology Date/Time Source Procedure Growth Status 09/07/20 02:00 Stool Clostridium difficile Toxin Assay - Final Complete Laboratory Tests Test 09/07/20 03:00 White Blood Count 19.1 K/UL (4.8-10.8) H Red Blood Count 2.41 M/UL (4.70-6.10) L Hemoglobin 7.6 G/DL (14.2-18.0) L Hematocrit 22.0 % (42.0-52.0) L Mean Corpuscular Volume 91 FL (80-99) Mean Corpuscular Hemoglobin 31.5 PG (27.0-31.0) H Mean Corpuscular Hemoglobin Concent 34.5 G/DL (32.0-36.0) Red Cell Distribution Width 15.2 % (11.6-14.8) H Platelet Count 207 K/UL (150-450) Mean Platelet Volume 7.1 FL (6.5-10.1) Neutrophils (%) (Auto) % (45.0-75.0) Lymphocytes (%) (Auto) % (20.0-45.0) Monocytes (%) (Auto) % (1.0-10.0) Eosinophils (%) (Auto) % (0.0-3.0) Basophils (%) (Auto) % (0.0-2.0) Differential Total Cells Counted 100 Neutrophils % (Manual) 64 % (45-75) Lymphocytes % (Manual) 19 % (20-45) L Monocytes % (Manual) 10 % (1-10) Eosinophils % (Manual) 6 % (0-3) H Basophils % (Manual) 1 % (0-2) Band Neutrophils 0 % (0-8) Platelet Estimate Adequate Platelet Morphology Normal Sodium Level 143 MMOL/L (136-145) Potassium Level 3.9 MMOL/L (3.5-5.1) Chloride Level 112 MMOL/L (98-107) H Carbon Dioxide Level 20 MMOL/L (21-32) L Anion Gap 11 mmol/L (5-15) Blood Urea Nitrogen 66 mg/dL (7-18) H Creatinine 0.8 MG/DL (0.55-1.30) Estimat Glomerular Filtration Rate > 60 mL/min (>60) Glucose Level 98 MG/DL (74-106) Calcium Level 8.7 MG/DL (8.5-10.1) Current Medications Medications (Trade) Dose Ordered Sig/Piedad Route PRN Reason Start Time Stop Time Status Last Admin Dose Admin Acetaminophen (Tylenol) 650 mg Q4H PRN GT Mild Pain (Pain Scale 1-3) 08/24/20 13:00 09/23/20 12:59 09/07/20 01:27 Acetaminophen (Tylenol) 650 mg Q6H PRN GT Temp >100.5 08/10/20 20:20 09/09/20 20:19 09/01/20 20:43 Chlorhexidine Gluconate (Christy-Hex 2%) 1 applic DAILY@1999 TOPIC 08/14/20 20:00 11/12/20 19:59 09/06/20 20:52 Levetiracetam (Keppra) 500 mg Q12HR NG 09/04/20 21:00 10/04/20 20:59 09/07/20 10:16 Loperamide HCl (Imodium) 4 mg Q6H PRN NG Diarrhea 09/06/20 15:30 10/06/20 15:29 09/07/20 03:08 Metoclopramide HCl (Reglan) 10 mg Q8H PRN IVP Nausea & Vomiting 08/26/20 11:15 09/25/20 11:14 08/27/20 20:46 Pantoprazole (Protonix) 40 mg EVERY 12 HOURS IVP 08/13/20 22:15 09/12/20 22:14 09/07/20 10:15 Patient Own Medication (Patient's Own Med) 2 ea TID GT 08/30/20 09:00 09/29/20 08:59 09/07/20 13:55 Patient Own Medication (Patient's Own Med) 3 ea DAILY GT 08/30/20 09:00 09/29/20 08:59 09/07/20 10:15 Sodium Chloride 1,000 ml @ 75 mls/hr [id number] IV 09/06/20 18:04 10/06/20 18:03 09/07/20 06:50 Ursodiol (Actigall) 300 mg TWICE A DAY ORAL 09/01/20 09:00 11/30/20 08:59 09/07/20 10:16 Wyatt Kemp MD Sep 07, 2020 14:14
--- NOTE | 2020-09-07 15:17 | NUR ---
INSURANCE CLINICALS FAXED TO [facility] PH [phone]
--- NOTE | 2020-09-07 15:27 | Surgery Progress Note ---
Surgery Progress Note Subjective Procedure Performed Tracheostomy Symptoms: improved, tolerating diet, voiding well, passing flatus, BM Objective Last 24 Hour Vital Signs Date Time Temp Pulse Resp B/P (MAP) Pulse Ox O2 Delivery O2 Flow Rate FiO2 09/07/20 12:00 99.1 67 16 103/57 (72) 100 67 09/07/20 12:00 64 09/07/20 12:00 40 09/07/20 12:00 Mechanical Ventilator Mechanical Ventilator 09/07/20 11:00 65 16 40 09/07/20 08:00 98.2 71 20 104/49 (67) 100 71 09/07/20 08:00 Mechanical Ventilator Mechanical Ventilator 09/07/20 08:00 60 09/07/20 08:00 40 09/07/20 07:15 62 13 40 09/07/20 04:00 56 09/07/20 04:00 Mechanical Ventilator Mechanical Ventilator 09/07/20 04:00 40 09/07/20 04:00 97.9 62 18 110/60 (77) 100 62 09/07/20 02:33 65 12 40 09/07/20 00:00 98.0 66 18 111/86 (94) 95 66 09/07/20 00:00 Mechanical Ventilator Mechanical Ventilator 09/06/20 23:31 72 09/06/20 22:30 67 20 40 09/06/20 20:00 97.7 61 17 113/63 (80) 97 09/06/20 20:00 63 09/06/20 20:00 40 09/06/20 20:00 Mechanical Ventilator Mechanical Ventilator 09/06/20 18:30 64 14 40 09/06/20 16:00 97.7 69 18 98/53 (68) 96 09/06/20 16:00 40 09/06/20 16:00 Mechanical Ventilator Mechanical Ventilator 09/06/20 16:00 61 I&O Intake and Output 09/06/20 09/07/20 19:00 07:00 Intake Total 1080 ml 1785 ml Output Total 1100 ml 1010 ml Balance -20 ml 775 ml Free Water 60 ml IV Total 300 ml 1125 ml Tube Feeding 720 ml 660 ml Output Urine Total 1100 ml 1000 ml Stool Total 10 ml # Bowel Movements 4 3 Dressing: dry Wound: clean Cardiovascular: RSR Respiratory: clear Abdomen: soft, non-tender, present bowel sounds Extremities: no edema, no tenderness, no cyanosis Laboratory Tests Test 09/07/20 03:00 White Blood Count 19.1 K/UL (4.8-10.8) H Red Blood Count 2.41 M/UL (4.70-6.10) L Hemoglobin 7.6 G/DL (14.2-18.0) L Hematocrit 22.0 % (42.0-52.0) L Mean Corpuscular Volume 91 FL (80-99) Mean Corpuscular Hemoglobin 31.5 PG (27.0-31.0) H Mean Corpuscular Hemoglobin Concent 34.5 G/DL (32.0-36.0) Red Cell Distribution Width 15.2 % (11.6-14.8) H Platelet Count 207 K/UL (150-450) Mean Platelet Volume 7.1 FL (6.5-10.1) Neutrophils (%) (Auto) % (45.0-75.0) Lymphocytes (%) (Auto) % (20.0-45.0) Monocytes (%) (Auto) % (1.0-10.0) Eosinophils (%) (Auto) % (0.0-3.0) Basophils (%) (Auto) % (0.0-2.0) Differential Total Cells Counted 100 Neutrophils % (Manual) 64 % (45-75) Lymphocytes % (Manual) 19 % (20-45) L Monocytes % (Manual) 10 % (1-10) Eosinophils % (Manual) 6 % (0-3) H Basophils % (Manual) 1 % (0-2) Band Neutrophils 0 % (0-8) Platelet Estimate Adequate Platelet Morphology Normal Sodium Level 143 MMOL/L (136-145) Potassium Level 3.9 MMOL/L (3.5-5.1) Chloride Level 112 MMOL/L (98-107) H Carbon Dioxide Level 20 MMOL/L (21-32) L Anion Gap 11 mmol/L (5-15) Blood Urea Nitrogen 66 mg/dL (7-18) H Creatinine 0.8 MG/DL (0.55-1.30) Estimat Glomerular Filtration Rate > 60 mL/min (>60) Glucose Level 98 MG/DL (74-106) Calcium Level 8.7 MG/DL (8.5-10.1) Plan Problems: (1) Pneumonia (2) Sickle cell anemia (3) Tachycardia (4) Severe sepsis (5) Sickle cell crisis (6) Sepsis Assessment & Plan: 35-year-old male sickle cell multiple comorbidities history of craniotomy trach feeding tube prior port infected removed see prior admission and consult and operative notes. Currently presents with significant leukocytosis fevers hypotension in intensive care unit wound site evaluated unlikely etiology. Trach evaluated may consider changing. LFTs noted elevated. Ultrasound ordered pending results trend labs continue IV antibiotics appreciate infectious disease input will follow with recommendations thank you for let me participate in patient's care KUB and US noted labs reviewed transfuse prbc prn trach change peg changed line out picc placed persistent wbc h/h noted anemia ss better since new trach Shiley [address] secretions manageable Trach replaced at bedside 925 for malpositioning it was identified he does have a false track as well. Will ensure trach is in correct positioning daily every shift trach not stable removed and intubated 08/25 on ett vent will need trach revision discussed with mother and medical teams trach and picc s/p trach revision 6 f dxlt downgraded improved d/c plan pulmonary arteries: Evaluation for pulmonary embolus is limited due to breathing motion artifact. No central pulmonary emboli are identified. Aorta: No acute findings. No thoracic aortic aneurysm. Lungs: There are moderately consolidating infiltrates identified in both lower lobes dependently with mild additional patchy infiltrates dependently in both upper lobes. The findings are consistent with bilateral nonspecific pneumonia. Aspiration pneumonia could give this appearance. The infiltrates are only somewhat typical of Covid 19. Confidence is immediate. Pleural space: Unremarkable. No significant effusion. No pneumothorax. Heart: Unremarkable. No cardiomegaly. No significant pericardial effusion. No evidence of RV dysfunction. Bones/joints: No acute fracture. No dislocation. Soft tissues: Unremarkable. Lymph nodes: Unremarkable. No enlarged lymph nodes. Tubes, lines and devices: There is a tracheostomy tube in good position. IMPRESSION: 1. There are moderately consolidating infiltrates identified in both lower lobes dependently with mild additional patchy infiltrates dependently in both upper lobes. The findings are consistent with bilateral nonspecific pneumonia. Aspiration pneumonia could give this appearance. The infiltrates are only somewhat typical of Covid 19. Confidence is immediate. 2. Evaluation for pulmonary embolus is limited due to breathing motion artifact. No central pulmonary emboli are identified. The liver is homogeneous. We cannot identify a normal spleen. There is dense crescentic calcification in the left upper quadrant at the expected location of the spleen. Gallbladder is absent. The pancreas is unremarkable. Adrenals are normal in morphology. There is a small punctate cortical calcification left kidney. No hydronephrosis bilaterally There is a G-tube in place. Gas-filled bowel loops identified throughout the abdomen and pelvis. No discrete transition point or obstruction. Appendix partially visualized. There is some free fluid in the pelvis. There is no free air. There is a mildly prominent lymph nodes noted in the upper to mid retroperitoneum noted of undetermined etiology or significance. Rivera catheter noted in the bladder. The reservoir for the penile prosthesis is identified in the left lower pelvis. There is a right femoral venous catheter in place. Diffuse sclerosis of the bony pelvis and hips noted of undetermined etiology. IMPRESSION: BILATERAL LOWER LOBE PNEUMONIAS. ALSO SOME HAZY INFILTRATES IN THE UPPER LOBES. A NORMAL SPLEEN IS NOT VISUALIZED. THERE IS A DENSE CRESCENTIC CALCIFICATION LEFT UPPER QUADRANT AT THE EXPECTED LOCATION OF THE SPLEEN. 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 PUNCTATE CORTICAL CALCIFICATION LEFT KIDNEY. NO HYDRONEPHROSIS. PROMINENT LYMPH NODES IN THE UPPER TO MID RETROPERITONEUM OF UNDETERMINED ETIOLOGY OR SIGNIFICANCE. G-TUBE, RIVERA CATHETER, RIGHT FEMORAL CATHETER AND PENILE PROSTHESIS NOTED IN PLACE. MILD DIFFUSE SCLEROSIS OF THE BONY PELVIS AND BOTH HIPS OF UNDETERMINED ETIOLOGY. QUESTION HISTORY OF RENAL OSTEODYSTROPHY. There is a large craniectomy defect in the right frontal temporal region. Diffuse age-related volume loss demonstrated. 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 No definite acute infarct seen. There is no hemorrhage, mass effect or shift. Ventricles and cisterns as well as brainstem and posterior fossa appear unremarkable. The sellar region is normal. Sinuses, mastoid air cells and bony calvarium appear intact. IMPRESSION: Large right frontotemporal craniectomy defect. 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 No definite acute intracranial abnormality. (7) Port-A-Cath in place Assessment & Plan: prior removal for infection site okay dressings changed no active infection from wound picc Harman Zhao Sep 07, 2020 15:27
[2020-09-07 16:00] VITALS: BP 103/58
--- NOTE | 2020-09-07 16:07 | NUR ---
DISCHARGE PLAN PATIENT WILL BE ACCEPTED TO [facility] FOR TOMORROW 09/08/20 [facility] IS REQUESTING A RECENT COVID TEST ORDER RECEIVED FROM DR EDWARDS ~ RAPID COVID SWAB ORDERED
--- NOTE | 2020-09-07 18:57 | NUR ---
HAND-OFF: Report given to Benton STODDARD.
--- NOTE | 2020-09-07 19:22 | NUR ---
NURSE NOTES: Received report from ARLYN Whitaker, pt. in bed awake- appears to be alert to name, breathing even and unlabored, no signs or symptoms of acute cardiac or respiratory distress noted, bed alarm on, side rails up x's 3 and safety brakes engaged, call light within easy reach, safety brakes locked in position, side rails padded for seizure precautions- no seizure activity noted upon assessment, AC 16, TV 500, Fio2 at 40% and peep 5- no distress noted, pt. has G tube running Vital AF 1.2 at 60cc- o residual noted, Rectal tube intact and draining in gravity, Overton intact and draining to gravity, pt. appears clean and dry, JOLLY PICC running NS at 75cc/hr- IV intact and patent, Safety measures continued, HOB elevated- aspiration precautions noted, all needs attended too, will continue to monitor pt. and with plan of care. Addendum: 09/07/20 at 1927 by ANGELLA ALBARADO RN RN correction to message above vent settings AC 12, TV 500 and Fio2 at 50%- no peep.
[2020-09-07 20:00] VITALS: BP 120/74
[2020-09-07] MEDS: Dyna-Hex 2% Top Sol 2oz TOPIC SCH (20:01)
--- NOTE | 2020-09-07 20:13 | NUR ---
NURSE NOTES: gee Nieto from laboratory- Patients test for rapid Covid is negative.
[2020-09-08] VITALS: BP 116/66
--- NOTE | 2020-09-08 | NUR ---
NURSE NOTES: pt. in bed resting- appears to be tolerating current vent settings well- no distress noted- feeding appears to be tolerated- no residual noted- bed bath given and linens changed- will continue to monitor pt. and with plan of care.
[2020-09-08 04:00] VITALS: BP 111/58
--- NOTE | 2020-09-08 04:00 | NUR ---
NURSE NOTES: pt. in bed asleep - breathing unlabored and even- appears to be tolerating current vent settings- will continue to monitor pt. and with plan of care.
--- NOTE | 2020-09-08 06:53 | NUR ---
NURSE HAND-OFF REPORT: Important Events on Shift:none Patient Status: stable Diet: Vital AF 1.2 Pending Orders: Pending Results/Labs: Pending MD notification: Latest Vital Signs: Temperature 98.0 , Pulse 72 , B/P 111 /58 , Respiratory Rate 16 , O2 SAT 100 , Mechanical Ventilator, O2 Flow Rate . Vital Sign Comment: EKG Rhythm: Sinus Rhythm- SB Rhythm change?: Y MD Notified?: N pt. in and out SR - SB- pt. remains stable MD Response: Latest Stevens Fall Score: 55 Fall Risk: High Risk Safety Measures: Call light Within Reach, Bed Alarm Zone 2, Side Rails Side Rails x3, Bed position Low and Locked. Fall Precautions: Yellow Socks Yellow Gown Door Sign Patient Fall Education Report given to ARLYN Valdes- aware to f/u on any abnormal am labs- and regarding Covid test negative.
--- NOTE | 2020-09-08 06:54 | NUR ---
NURSE NOTES: Report received from ARLYN Stephens. Pt awake and alert upon assessment. C/o generalized pain and requesting pain meds. Pt EKG shows SR at 69 bpm. 100% O2 sat on prescribed vent settings. 0 residual noted on g-tube running Vital AF at 60 cc. JOLLY PICC patent and intact running NS at 75 cc. Overton draining well to gravity. 0 output on rectal tube during beginning shift. Bed kept in lowest and locked position. Bed alarm on. Will continue monitoring.
[2020-09-08 08:00] VITALS: BP 107/60
--- NOTE | 2020-09-08 08:10 | Hematology/Onc Progress Note ---
Assessment/Plan Assessment/Plan Assessment and Recs # Sickle cell crisis noted upon admission, with hx of sickle cell anemia --> hgb 6.5-->7.1-->6.6->>>>7.3-->7.1 -->6.7-->6.5-->6.8->7-->7.2->6.5-->6.7-->6.5->5.3-->7.8->8.4-->8.5->7.6 --> 1 unit prbc on 07/23, 1 unit 08/27, 2 units prbc 08/31 --> ivfs have been started --> anemia panel ordered, with elev ferritin --> recommend to consider hydrea when discharged if stable --> likely does have mild hemolysis --> hgb electrophoresis show evidence of sickle cell trait --> FLOW CYTOMETRY IS NEGATIVE # Hyperferritinemia with elevated ferritin that was noted --> likely consider exjade once discharged though at this time not limiting --> ferritin can >2000 with recurrent transfusions --> trend over time, for EOD observe --> 08/30 deferasirox and ferriprox started (continue these for iron overload) # Leukocytosis poa with Severe sepsis due to line infection --> abx: vancomycin-->cefepime/colistin-->cefepime--linezolid --> wbc 25-->31-->29-->25-->37--->31-->24->19-->18-->17-->18 --> FLOW CYTOMETRY NEG # Respiratory failure s/p Ventilator dependent --> as per pulm, vent adjustment # Port-A-Cath in place --> s/p abx --> s/p permacath removal # Transaminitis -->liver function elevated --> per gi # Dt ppx scds The timing of this note does not necessarily reflect the time of the patient was seen. Greatly appreciate consultation. Subjective Allergies: Coded Allergies: ADHESIVE TAPE (Verified Allergy, Unknown, 07/20/20) Uncoded Allergies: TAPE (Allergy, Unknown, 08/07/20) All Systems: reviewed and negative except above Subjective 08/19 no acute events, vent, iv abx, labs reviewed 08/20 labs reviewed, seen by Dr. Celaya and mychal Rn, holding off prbc 08/21 remains on abx with persistently elev wbc, on abx broad spectrum 08/22 labs reviewed, no bleeding, meds noted, wbc still 25k, hgb 6.8, transfuse pr 08/23 cbc has been ordered, meds noted, on cefepime, have dw path is flow back 08/24 hob is elevated, labs noted, hgb 7, consider for transfusions soon, wbc is better 08/25 labs are reviewed, wbc is worse, flow was done and is negative 08/27 is in the icu, labs noted, on cefepime and vanc, wbc 31 08/29 labs reviewed, hgb 6.7, mychal Feldman in am, no bleeding, seen with Belia 08/30 remains on vent, have restart home chelating agents, hgb 6.5 08/31 feeling better, hgb 5.3, have mychal Avalos Artemio to get 2 units prbc stat 09/01 labs are noted, wbc 19, hgb 7.8, no hemolysis, meds reviewed 09/03 labs are noted, wbc 18, on cefepime, hgb better hgb 8.4 09/04 labs noted, no bleeding, cbc is pending, on abx 09/05 remains on abx, hgb 8.5, holding off transfusion, nv, on vent, gt 09/06 labs noted, will order retic, continue on iron chelating meds for iron overload 09/07 meds noted, labs reviewd, hgb 7.6, will monitor for now, cbc tomorrow 09/08 on vent, gtube feeds, labs noted, no bleeding, potential dc today accepted snf Objective Objective Current Medications Medications (Trade) Dose Ordered Sig/Piedad Route PRN Reason Start Time Stop Time Status Last Admin Dose Admin Acetaminophen (Tylenol) 650 mg Q4H PRN GT Mild Pain (Pain Scale 1-3) 08/24/20 13:00 09/23/20 12:59 09/07/20 21:57 Acetaminophen (Tylenol) 650 mg Q6H PRN GT Temp >100.5 08/10/20 20:20 09/09/20 20:19 09/01/20 20:43 Chlorhexidine Gluconate (Christy-Hex 2%) 1 applic DAILY@2000 TOPIC 08/14/20 20:00 11/12/20 19:59 09/07/20 20:01 Levetiracetam (Keppra) 500 mg Q12HR NG 09/04/20 21:00 10/04/20 20:59 09/07/20 20:01 Loperamide HCl (Imodium) 4 mg Q6H PRN NG Diarrhea 09/06/20 15:30 10/06/20 15:29 09/07/20 03:08 Metoclopramide HCl (Reglan) 10 mg Q8H PRN IVP Nausea & Vomiting 08/26/20 11:15 09/25/20 11:14 08/27/20 20:46 Pantoprazole (Protonix) 40 mg EVERY 12 HOURS IVP 08/13/20 22:15 09/12/20 22:14 09/07/20 20:01 Patient Own Medication (Patient's Own Med) 2 ea TID GT 08/30/20 09:00 09/29/20 08:59 09/07/20 18:18 Patient Own Medication (Patient's Own Med) 3 ea DAILY GT 08/30/20 09:00 09/29/20 08:59 09/07/20 10:15 Sodium Chloride 1,000 ml @ 75 mls/hr [id number] IV 09/06/20 18:04 10/06/20 18:03 09/08/20 05:26 Ursodiol (Actigall) 300 mg TWICE A DAY ORAL 09/01/20 09:00 11/30/20 08:59 09/07/20 18:18 Last 24 Hour Vital Signs Date Time Temp Pulse Resp B/P (MAP) Pulse Ox O2 Delivery O2 Flow Rate FiO2 09/08/20 07:43 78 19 40 09/08/20 04:00 40 09/08/20 04:00 Mechanical Ventilator Mechanical Ventilator 09/08/20 04:00 56 09/08/20 04:00 98.0 72 16 111/58 (75) 100 09/08/20 03:23 65 13 40 09/08/20 00:00 Mechanical Ventilator Mechanical Ventilator 09/08/20 00:00 40 09/08/20 00:00 97.9 63 16 116/66 (83) 100 09/07/20 23:33 58 09/07/20 23:31 60 14 40 09/07/20 22:27 97.9 09/07/20 20:00 40 09/07/20 20:00 97.9 77 16 120/74 (89) 100 09/07/20 20:00 Mechanical Ventilator Mechanical Ventilator 09/07/20 19:32 66 09/07/20 19:01 80 16 40 09/07/20 16:00 40 09/07/20 16:00 97.7 63 16 103/58 (73) 100 63 09/07/20 16:00 Mechanical Ventilator Mechanical Ventilator 09/07/20 16:00 60 09/07/20 15:00 65 13 40 09/07/20 12:00 99.1 67 16 103/57 (72) 100 67 09/07/20 12:00 64 09/07/20 12:00 40 09/07/20 12:00 Mechanical Ventilator Mechanical Ventilator 09/07/20 11:00 65 16 40 09/07/20 08:00 98.2 71 20 104/49 (67) 100 71 09/07/20 08:00 Mechanical Ventilator Mechanical Ventilator 09/07/20 08:00 60 09/07/20 08:00 40 09/07/20 07:15 62 13 40 09/07/20 04:00 56 09/07/20 04:00 Mechanical Ventilator Mechanical Ventilator 09/07/20 04:00 40 09/07/20 04:00 97.9 62 18 110/60 (77) 100 62 09/07/20 02:33 65 12 40 09/07/20 00:00 98.0 66 18 111/86 (94) 95 66 09/07/20 00:00 Mechanical Ventilator Mechanical Ventilator 09/06/20 23:31 72 09/06/20 22:30 67 20 40 09/06/20 20:00 97.7 61 17 113/63 (80) 97 09/06/20 20:00 63 09/06/20 20:00 40 09/06/20 20:00 Mechanical Ventilator Mechanical Ventilator 09/06/20 18:30 64 14 40 09/06/20 16:00 97.7 69 18 98/53 (68) 96 09/06/20 16:00 40 09/06/20 16:00 Mechanical Ventilator Mechanical Ventilator 09/06/20 16:00 61 09/06/20 15:00 59 14 40 09/06/20 12:00 40 09/06/20 12:00 67 09/06/20 12:00 98.1 67 18 98/54 (69) 100 09/06/20 12:00 Mechanical Ventilator Mechanical Ventilator 09/06/20 11:40 66 16 40 Intake and Output 09/07/20 09/08/20 19:00 07:00 Intake Total 2145 ml 1634 ml Output Total 800 ml 1525 ml Balance 1345 ml 109 ml Free Water 300 ml 50 ml IV Total 1125 ml 864 ml Tube Feeding 720 ml 720 ml Output Urine Total 800 ml 1525 ml Stool Total 0 ml # Bowel Movements 3 3 Labs Test 09/06/20 03:20 09/07/20 03:00 White Blood Count 18.0 K/UL (4.8-10.8) 19.1 K/UL (4.8-10.8) Red Blood Count 2.70 M/UL (4.70-6.10) 2.41 M/UL (4.70-6.10) Hemoglobin 8.5 G/DL (14.2-18.0) 7.6 G/DL (14.2-18.0) Hematocrit 24.7 % (42.0-52.0) 22.0 % (42.0-52.0) Mean Corpuscular Volume 92 FL (80-99) 91 FL (80-99) Mean Corpuscular Hemoglobin 31.4 PG (27.0-31.0) 31.5 PG (27.0-31.0) Mean Corpuscular Hemoglobin Concent 34.3 G/DL (32.0-36.0) 34.5 G/DL (32.0-36.0) Red Cell Distribution Width 15.1 % (11.6-14.8) 15.2 % (11.6-14.8) Platelet Count 230 K/UL (150-450) 207 K/UL (150-450) Mean Platelet Volume 7.2 FL (6.5-10.1) 7.1 FL (6.5-10.1) Neutrophils (%) (Auto) % (45.0-75.0) % (45.0-75.0) Lymphocytes (%) (Auto) % (20.0-45.0) % (20.0-45.0) Monocytes (%) (Auto) % (1.0-10.0) % (1.0-10.0) Eosinophils (%) (Auto) % (0.0-3.0) % (0.0-3.0) Basophils (%) (Auto) % (0.0-2.0) % (0.0-2.0) Differential Total Cells Counted 100 100 Neutrophils % (Manual) 69 % (45-75) 64 % (45-75) Lymphocytes % (Manual) 20 % (20-45) 19 % (20-45) Monocytes % (Manual) 5 % (1-10) 10 % (1-10) Eosinophils % (Manual) 5 % (0-3) 6 % (0-3) Basophils % (Manual) 1 % (0-2) 1 % (0-2) Band Neutrophils 0 % (0-8) 0 % (0-8) Platelet Estimate Adequate Adequate Platelet Morphology Normal Normal Anisocytosis 1+ Reticulocyte Count 1.0 % (0.5-2.0) Sodium Level 141 MMOL/L (136-145) 143 MMOL/L (136-145) Potassium Level 4.2 MMOL/L (3.5-5.1) 3.9 MMOL/L (3.5-5.1) Chloride Level 107 MMOL/L (98-107) 112 MMOL/L (98-107) Carbon Dioxide Level 21 MMOL/L (21-32) 20 MMOL/L (21-32) Anion Gap 13 mmol/L (5-15) 11 mmol/L (5-15) Blood Urea Nitrogen 67 mg/dL (7-18) 66 mg/dL (7-18) Creatinine 0.9 MG/DL (0.55-1.30) 0.8 MG/DL (0.55-1.30) Estimat Glomerular Filtration Rate > 60 mL/min (>60) > 60 mL/min (>60) Glucose Level 107 MG/DL (74-106) 98 MG/DL (74-106) Calcium Level 9.3 MG/DL (8.5-10.1) 8.7 MG/DL (8.5-10.1) Micro Microbiology Date/Time Source Procedure Growth Status 09/07/20 14:41 Nasopharynx SARS-CoV-2 RdRp Gene Assay - Final Complete Height (Feet): 5 Height (Inches): 8.00 Weight (Pounds): 113 Objective Physical Exam General: alert, Chronically Ill Head: other - Large right-sided craniotomy defect well-heale ++, tracheotomy/vent Respiratory: crackles, rales, other - right side chest wall tenderness Cardiovascular: tachycardia Gastrointestinal: normal inspection, soft, gt++ Musk: decreased range of motion, other - atrophic, motor weakness Neurologic: alert, motor weakness, other - left hemineglect Psychiatric: normal inspection Skin: no rash : garcia++ Roshan Castillo MD Sep 08, 2020 08:10
--- NOTE | 2020-09-08 08:27 | Critical Care Progress Note ---
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 Port-A-Cath Status post removal of implanted right chest wall Port-A-Cath Sickle cell crisis Sickle cell anemia Chronic respiratory failure, ventilator dependent, with tracheostomy status Transaminitis Seizure disorder acute pneumonia leukocytosis recurrent sepsis PLAN care noted IV antibiotics per ID respiratory care as is Ventilatory support- volume ventilation as is oxygen adequate SNF meds supportive care suction no wean planned prognosis guarded medications/laboratory data/nursing notes reviewed in detail note reviewed and edited care discussed with RN and RT Critical Care - Subjective ROS Limited/Unobtainable: Yes Condition: critical EKG Rhythm: Sinus Rhythm Residuals: minimal Tube Feeding Tolerated: yes I&O: Intake and Output0 09/07/20 09/08/20 19:00 07:00 Intake Total 2145 ml 1634 ml Output Total 800 ml 1525 ml Balance 1345 ml 109 ml Free Water 300 ml 50 ml IV Total 1125 ml 864 ml Tube Feeding 720 ml 720 ml Output Urine Total 800 ml 1525 ml Stool Total 0 ml # Bowel Movements 3 3 Critical Care - Objective ET-Tube: 7.0 ET Position: 23 Last 24 Hour Vital Signs Date Time Temp Pulse Resp B/P (MAP) Pulse Ox O2 Delivery O2 Flow Rate FiO2 09/08/20 07:43 78 19 40 09/08/20 04:00 40 09/08/20 04:00 Mechanical Ventilator Mechanical Ventilator 09/08/20 04:00 56 09/08/20 04:00 98.0 72 16 111/58 (75) 100 09/08/20 03:23 65 13 40 09/08/20 00:00 Mechanical Ventilator Mechanical Ventilator 09/08/20 00:00 40 09/08/20 00:00 97.9 63 16 116/66 (83) 100 09/07/20 23:33 58 09/07/20 23:31 60 14 40 09/07/20 22:27 97.9 09/07/20 20:00 40 09/07/20 20:00 97.9 77 16 120/74 (89) 100 09/07/20 20:00 Mechanical Ventilator Mechanical Ventilator 09/07/20 19:32 66 09/07/20 19:01 80 16 40 09/07/20 16:00 40 09/07/20 16:00 97.7 63 16 103/58 (73) 100 63 09/07/20 16:00 Mechanical Ventilator Mechanical Ventilator 09/07/20 16:00 60 09/07/20 15:00 65 13 40 09/07/20 12:00 99.1 67 16 103/57 (72) 100 67 09/07/20 12:00 64 09/07/20 12:00 40 09/07/20 12:00 Mechanical Ventilator Mechanical Ventilator 09/07/20 11:00 65 16 40 Objective: WDWN NAD reduced breath sounds bilaterally without rhonchi or wheeze [id number] without MRG NABS nontender GT no CCE reduced LOC Micro: Microbiology Date/Time Source Procedure Growth Status 09/07/20 14:41 Nasopharynx SARS-CoV-2 RdRp Gene Assay - Final Complete 09/07/20 02:00 Stool Clostridium difficile Toxin Assay - Final Complete James Nuñez MD Sep 08, 2020 08:27
[2020-09-08] MEDS ORDERED: NS 275ml ONE ×2 (08:57→17:52)
[2020-09-08] MEDS ORDERED: Tubing IV Secondary IV ONE (08:57)
[2020-09-08] MEDS: FERRIPROX GT SCH ×2 (09:14→12:09)
[2020-09-08] MEDS: levETIRAcetam 500mg/5ml Liquid NG SCH (09:15)
[2020-09-08] MEDS: DEFERASIROX 360 MG GT SCH (09:15)
[2020-09-08] MEDS: Ursodiol 300mg cap ORAL SCH (09:15)
[2020-09-08] MEDS: Pantoprazole Inj IVP SCH (09:15)
[2020-09-08] MEDS: Acetaminophen 650mg/20.3ml GT PRN (09:15)
--- NOTE | 2020-09-08 10:00 | NUR ---
NURSE NOTES: Mom calling in regards to updates and d/c placement for her son. Per mom, [facility] is refusing him for unknown reasons. Possibly [facility] pending placement. Referred her to d/w case management.
--- NOTE | 2020-09-08 10:31 | Surgery Progress Note ---
Surgery Progress Note Subjective Procedure Performed Tracheostomy Additional Comments afebrile, HD stable improving tolerating diet Objective Last 24 Hour Vital Signs Date Time Temp Pulse Resp B/P (MAP) Pulse Ox O2 Delivery O2 Flow Rate FiO2 09/08/20 07:43 78 19 40 09/08/20 04:00 40 09/08/20 04:00 Mechanical Ventilator Mechanical Ventilator 09/08/20 04:00 56 09/08/20 04:00 98.0 72 16 111/58 (75) 100 09/08/20 03:23 65 13 40 09/08/20 00:00 Mechanical Ventilator Mechanical Ventilator 09/08/20 00:00 40 09/08/20 00:00 97.9 63 16 116/66 (83) 100 09/07/20 23:33 58 09/07/20 23:31 60 14 40 09/07/20 22:27 97.9 09/07/20 20:00 40 09/07/20 20:00 97.9 77 16 120/74 (89) 100 09/07/20 20:00 Mechanical Ventilator Mechanical Ventilator 09/07/20 19:32 66 09/07/20 19:01 80 16 40 09/07/20 16:00 40 09/07/20 16:00 97.7 63 16 103/58 (73) 100 63 09/07/20 16:00 Mechanical Ventilator Mechanical Ventilator 09/07/20 16:00 60 09/07/20 15:00 65 13 40 09/07/20 12:00 99.1 67 16 103/57 (72) 100 67 09/07/20 12:00 64 09/07/20 12:00 40 09/07/20 12:00 Mechanical Ventilator Mechanical Ventilator 09/07/20 11:00 65 16 40 I&O Intake and Output 09/07/20 09/08/20 19:00 07:00 Intake Total 2145 ml 1634 ml Output Total 800 ml 1525 ml Balance 1345 ml 109 ml Free Water 300 ml 50 ml IV Total 1125 ml 864 ml Tube Feeding 720 ml 720 ml Output Urine Total 800 ml 1525 ml Stool Total 0 ml # Bowel Movements 3 3 Dressing: saturated Cardiovascular: RSR Respiratory: decreased breath sounds Abdomen: soft, non-tender, present bowel sounds Extremities: no edema, no tenderness, no cyanosis Plan Problems: (1) Pneumonia (2) Sickle cell anemia (3) Tachycardia (4) Severe sepsis (5) Sickle cell crisis (6) Sepsis Assessment & Plan: 35-year-old male sickle cell multiple comorbidities history of craniotomy trach feeding tube prior port infected removed see prior admission and consult and operative notes. Currently presents with significant leukocytosis fevers hypotension in intensive care unit wound site evaluated unlikely etiology. Trach evaluated may consider changing. LFTs noted elevated. Ultrasound ordered pending results trend labs continue IV antibiotics appreciate infectious disease input will follow with recommendations thank you for let me participate in patient's care KUB and US noted labs reviewed transfuse prbc prn trach change peg changed line out picc placed persistent wbc h/h noted anemia ss better since new trach Shiley [address] secretions manageable Trach replaced at bedside 925 for malpositioning it was identified he does have a false track as well. Will ensure trach is in correct positioning daily every shift trach not stable removed and intubated 08/25 on ett vent will need trach revision discussed with mother and medical teams trach and picc s/p trach revision 6 f dxlt downgraded improved d/c plan pulmonary arteries: Evaluation for pulmonary embolus is limited due to breathing motion artifact. No central pulmonary emboli are identified. Aorta: No acute findings. No thoracic aortic aneurysm. Lungs: There are moderately consolidating infiltrates identified in both lower lobes dependently with mild additional patchy infiltrates dependently in both upper lobes. The findings are consistent with bilateral nonspecific pneumonia. Aspiration pneumonia could give this appearance. The infiltrates are only somewhat typical of Covid 19. Confidence is immediate. Pleural space: Unremarkable. No significant effusion. No pneumothorax. Heart: Unremarkable. No cardiomegaly. No significant pericardial effusion. No evidence of RV dysfunction. Bones/joints: No acute fracture. No dislocation. Soft tissues: Unremarkable. Lymph nodes: Unremarkable. No enlarged lymph nodes. Tubes, lines and devices: There is a tracheostomy tube in good position. IMPRESSION: 1. There are moderately consolidating infiltrates identified in both lower lobes dependently with mild additional patchy infiltrates dependently in both upper lobes. The findings are consistent with bilateral nonspecific pneumonia. Aspiration pneumonia could give this appearance. The infiltrates are only somewhat typical of Covid 19. Confidence is immediate. 2. Evaluation for pulmonary embolus is limited due to breathing motion artifact. No central pulmonary emboli are identified. The liver is homogeneous. We cannot identify a normal spleen. There is dense crescentic calcification in the left upper quadrant at the expected location of the spleen. Gallbladder is absent. The pancreas is unremarkable. Adrenals are normal in morphology. There is a small punctate cortical calcification left kidney. No hydronephrosis bilaterally There is a G-tube in place. Gas-filled bowel loops identified throughout the abdomen and pelvis. No discrete transition point or obstruction. Appendix partially visualized. There is some free fluid in the pelvis. There is no free air. There is a mildly prominent lymph nodes noted in the upper to mid retroperitoneum noted of undetermined etiology or significance. Rivera catheter noted in the bladder. The reservoir for the penile prosthesis is identified in the left lower pelvis. There is a right femoral venous catheter in place. Diffuse sclerosis of the bony pelvis and hips noted of undetermined etiology. IMPRESSION: BILATERAL LOWER LOBE PNEUMONIAS. ALSO SOME HAZY INFILTRATES IN THE UPPER LOBES. A NORMAL SPLEEN IS NOT VISUALIZED. THERE IS A DENSE CRESCENTIC CALCIFICATION LEFT UPPER QUADRANT AT THE EXPECTED LOCATION OF THE SPLEEN. 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 PUNCTATE CORTICAL CALCIFICATION LEFT KIDNEY. NO HYDRONEPHROSIS. PROMINENT LYMPH NODES IN THE UPPER TO MID RETROPERITONEUM OF UNDETERMINED ETIOLOGY OR SIGNIFICANCE. G-TUBE, RIVERA CATHETER, RIGHT FEMORAL CATHETER AND PENILE PROSTHESIS NOTED IN PLACE. MILD DIFFUSE SCLEROSIS OF THE BONY PELVIS AND BOTH HIPS OF UNDETERMINED ETIOLOGY. QUESTION HISTORY OF RENAL OSTEODYSTROPHY. There is a large craniectomy defect in the right frontal temporal region. Diffuse age-related volume loss demonstrated. 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 No definite acute infarct seen. There is no hemorrhage, mass effect or shift. Ventricles and cisterns as well as brainstem and posterior fossa appear unremarkable. The sellar region is normal. Sinuses, mastoid air cells and bony calvarium appear intact. IMPRESSION: Large right frontotemporal craniectomy defect. 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 No definite acute intracranial abnormality. (7) Port-A-Cath in place Assessment & Plan: prior removal for infection site okay dressings changed no active infection from wound picc Harman Zhao Sep 08, 2020 10:31
--- NOTE | 2020-09-08 11:12 | Infectious Diseases Prog Note ---
Assessment/Plan Assessment/Plan antibiotics : none A 1. VRE sepsis s/p rx 2. serratia pneumonia s/p rx 3. respiratory failure 4. sickle cell disease 5. anemia 6. leucocytosis 7. seizures P 1. continue off antibiotics 2. will follow up cultures Subjective ROS Limited/Unobtainable: Yes Allergies: Coded Allergies: ADHESIVE TAPE (Verified Allergy, Unknown, 07/20/20) Uncoded Allergies: TAPE (Allergy, Unknown, 08/07/20) Objective Last 24 Hour Vital Signs Date Time Temp Pulse Resp B/P (MAP) Pulse Ox O2 Delivery O2 Flow Rate FiO2 09/08/20 08:00 40 09/08/20 08:00 Mechanical Ventilator Mechanical Ventilator 09/08/20 08:00 98.1 70 17 107/60 (76) 100 09/08/20 07:54 66 09/08/20 07:43 78 19 40 09/08/20 04:00 40 09/08/20 04:00 Mechanical Ventilator Mechanical Ventilator 09/08/20 04:00 56 09/08/20 04:00 98.0 72 16 111/58 (75) 100 09/08/20 03:23 65 13 40 09/08/20 00:00 Mechanical Ventilator Mechanical Ventilator 09/08/20 00:00 40 09/08/20 00:00 97.9 63 16 116/66 (83) 100 09/07/20 23:33 58 09/07/20 23:31 60 14 40 09/07/20 22:27 97.9 09/07/20 20:00 40 09/07/20 20:00 97.9 77 16 120/74 (89) 100 09/07/20 20:00 Mechanical Ventilator Mechanical Ventilator 09/07/20 19:32 66 09/07/20 19:01 80 16 40 09/07/20 16:00 40 09/07/20 16:00 97.7 63 16 103/58 (73) 100 63 09/07/20 16:00 Mechanical Ventilator Mechanical Ventilator 09/07/20 16:00 60 09/07/20 15:00 65 13 40 09/07/20 12:00 99.1 67 16 103/57 (72) 100 67 09/07/20 12:00 64 09/07/20 12:00 40 09/07/20 12:00 Mechanical Ventilator Mechanical Ventilator Height (Feet): 5 Height (Inches): 8.00 Weight (Pounds): 113 HEENT: status post trach Respiratory/Chest: lungs clear Cardiovascular: normal rate, regular rhythm, no gallop/murmur Abdomen: soft, non tender, other - GT Extremities: no edema, other - left arm PICC Microbiology Date/Time Source Procedure Growth Status 09/07/20 14:41 Nasopharynx SARS-CoV-2 RdRp Gene Assay - Final Complete 09/07/20 02:00 Stool Clostridium difficile Toxin Assay - Final Complete Current Medications Medications (Trade) Dose Ordered Sig/Piedad Route PRN Reason Start Time Stop Time Status Last Admin Dose Admin Acetaminophen (Tylenol) 650 mg Q4H PRN GT Mild Pain (Pain Scale 1-3) 08/24/20 13:00 09/23/20 12:59 09/07/20 21:57 Acetaminophen (Tylenol) 650 mg Q6H PRN GT Temp >100.5 08/10/20 20:20 09/09/20 20:19 09/08/20 09:15 Chlorhexidine Gluconate (Christy-Hex 2%) 1 applic DAILY@1999 TOPIC 08/14/20 20:00 11/12/20 19:59 09/07/20 20:01 Levetiracetam (Keppra) 500 mg Q12HR NG 09/04/20 21:00 10/04/20 20:59 09/08/20 09:15 Loperamide HCl (Imodium) 4 mg Q6H PRN NG Diarrhea 09/06/20 15:30 10/06/20 15:29 09/07/20 03:08 Metoclopramide HCl (Reglan) 10 mg Q8H PRN IVP Nausea & Vomiting 08/26/20 11:15 09/25/20 11:14 08/27/20 20:46 Pantoprazole (Protonix) 40 mg EVERY 12 HOURS IVP 08/13/20 22:15 09/12/20 22:14 09/08/20 09:15 Patient Own Medication (Patient's Own Med) 2 ea TID GT 08/30/20 09:00 09/29/20 08:59 09/08/20 09:14 Patient Own Medication (Patient's Own Med) 3 ea DAILY GT 08/30/20 09:00 09/29/20 08:59 09/08/20 09:15 Sodium Chloride 1,000 ml @ 75 mls/hr [id number] IV 09/06/20 18:04 10/06/20 18:03 09/08/20 05:26 Ursodiol (Actigall) 300 mg TWICE A DAY ORAL 09/01/20 09:00 11/30/20 08:59 09/08/20 09:15 Isabelle Degroot MD Sep 08, 2020 11:12
[2020-09-08 12:00] VITALS: BP 119/70
[2020-09-08] MEDS ORDERED: HYDROcodone/Acetamin 10/325 tab GT PRN (13:00)
--- NOTE | 2020-09-08 14:23 | NUR ---
*-DISCHARGE PLANNED*-* PATIENT HAS BEEN REFERRED TO: [facility] P: [phone] FOR NURSE REPORT FOR NURSE ROOM# 44.[facility] TRANSP[facility] SET FOR 4PM/1600PM S/W KATHLEEN [id number] S/W PATIENTS MOTHER EUSEBIA CAMPOVERDE, WHO IS IN AGREEMENT WITH DISCHARGE PLAN.
[2020-09-08] MEDS ORDERED: Pantoprazole IVP (14:52)
[2020-09-08] MEDS ORDERED: URSODIOL300 MG ORAL (14:52)
[2020-09-08] MEDS ORDERED: KEPPRA LIQ100 MG/1 M NG (14:52)
[2020-09-08] MEDS ORDERED: METOCLOPRAM5 MG/1 M1 IVP (14:52)
--- NOTE | 2020-09-08 14:58 | NUR ---
INSURANCE FAXED PROGRESS NOTES (12-10-08) H/P F/S DC ORDER TO [facility] [phone]
--- NOTE | 2020-09-08 15:00 | NUR ---
NURSE NOTES: D/W Dr. Celaya and business case analyst in regards to new orders for discharge. Pt will be d/c to [facility] - Bed 44C. OK to DC with PICC for future blood draws. Pt. in stable condition.
[2020-09-08 16:00] VITALS: BP 101/54
--- NOTE | 2020-09-08 16:05 | NUR ---
NURSE NOTES: Report given to ARLYN Mejia at [facility]. Medications from pharmacy and belongings collected for patient discharge.
--- NOTE | 2020-09-08 23:55 | General Progress Note ---
Subjective Allergies: Coded Allergies: ADHESIVE TAPE (Verified Allergy, Unknown, 07/20/20) Uncoded Allergies: TAPE (Allergy, Unknown, 08/07/20) Subjective calm and comfortable tolerating feeds Objective Last 24 Hour Vital Signs Date Time Temp Pulse Resp B/P (MAP) Pulse Ox O2 Delivery O2 Flow Rate FiO2 09/08/20 17:11 98.4 09/08/20 16:00 40 09/08/20 16:00 Mechanical Ventilator Mechanical Ventilator 09/08/20 16:00 98.4 69 15 101/54 (70) 100 09/08/20 15:30 67 13 40 09/08/20 12:00 Mechanical Ventilator Mechanical Ventilator 09/08/20 12:00 98.2 72 15 119/70 (86) 100 09/08/20 12:00 40 09/08/20 11:40 63 09/08/20 11:17 66 16 40 09/08/20 08:00 40 09/08/20 08:00 Mechanical Ventilator Mechanical Ventilator 09/08/20 08:00 98.1 70 17 107/60 (76) 100 09/08/20 07:54 66 09/08/20 07:43 78 19 40 09/08/20 04:00 40 09/08/20 04:00 Mechanical Ventilator Mechanical Ventilator 09/08/20 04:00 56 09/08/20 04:00 98.0 72 16 111/58 (75) 100 09/08/20 03:23 65 13 40 09/08/20 00:00 Mechanical Ventilator Mechanical Ventilator 09/08/20 00:00 40 09/08/20 00:00 97.9 63 16 116/66 (83) 100 Intake and Output 09/07/20 09/08/20 19:00 07:00 Intake Total 2145 ml 1634 ml Output Total 800 ml 1525 ml Balance 1345 ml 109 ml Free Water 300 ml 50 ml IV Total 1125 ml 864 ml Tube Feeding 720 ml 720 ml Output Urine Total 800 ml 1525 ml Stool Total 0 ml # Bowel Movements 3 3 Height (Feet): 5 Height (Inches): 8.00 Weight (Pounds): 113 Objective Thin AA Man HEENT s/p craniotomy, (+) ETT neck (+) dressing Coarse BS, ronchi, tachypnic RR/tachy abd soft (+) GT no edema Assessment/Plan Status: stable, not improved Assessment/Plan: Assessment - respiratory distress - intubated - recent occluded GT - replaced - abnormal LFT - 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
--- NOTE | 2020-09-09 23:02 | Discharge Summary ---
Discharge Summary Discharge Summary _ DATE OF ADMISSION: 08/07/2020 DATE OF DISCHARGE: 09/08/2020 DISCHARGED BY: Dr. Lalo Celaya CONSULTANTS: Dr. Nasrin Castillo BRIEF HOSPITAL COURSE: Patient is an unfortunate 35-year-old male with history of sickle cell anemia, stroke, and seizure disorder. He was recently hospitalized due to sepsis secondary to infected Port-A-Cath that was removed at the nursing facility. He was noted to be hypotensive and febrile, he was sent to the emergency room for evaluation. Upon evaluation at ED, patient was noted to be febrile. He was initially hypotensive. A central line was inserted to the right femoral vein. Hypotension improved with fluid bolus. Blood work showed elevated WBC at 31. He had worsened dyspnea and heart rate increased. He was given morphine. EKG showed right axis deviation. Chest x-ray showed right lower lobe infiltrate. CTA of the chest showed moderate consolidating infiltrates identified in both lower lobes and mild patchy infiltrates in both upper lobes. Findings consistent with bilateral nonspecific pneumonia. There was no signs of PE. Patient was then admitted for evaluation of sepsis. Patient was admitted to ICU. Patient was initially given IV vancomycin and Zosyn. ID specialist was consulted. Zosyn discontinued. Patient was started on meropenem. Surgeon was consulted for evaluation of prior Port-A-Cath being source of infection. Site was evaluated. Dressing was changed. There was no active infection from the wound. Patient had an occluded G-tube. G-tube was replaced by GI at bedside. Patient also had issues with balloon on trach. RT replaced tracheostomy. Sputum culture showed growth of MRSA, Pseudomonas MDR, andserratia. LFTs were noted to be elevated. Abdominal ultrasound showed presumably s urgically absent gallbladder. Mild hepatomegaly. Hepatitis serology negative. There was a drop in hemoglobin. There was small amount of mucoid blood suctioned from the G-tube. NGT was placed on hold. Patient had high residuals. WBC was persistently elevated. Antibiotics were adjusted. PICC line was inserted. Central catheter was removed. Hemoglobin electrophoresis showed evidence of sickle cell trait. Patient likely has mild hemolysis. Anemia panel showed elevated ferritin. Flow cytometry is negative. Patient had reduced LOC. EEG showed encephalopathy of severe degree. Right frontocentral focal dysfunction. Right central epileptogenic focus with interictal discharges. Keppra dose was decreased to daily. Patient completed antibiotic therapy. Leukocytosis increased. He was restarted on IV vancomycin and cefepime. On 08/25, tracheostomy was dislodged and attempts to replace it had been unsuccessful. ED doctor was called to endotracheally intubate the patient. Patient was transferred to ICU. Patient may eventually need trach revision. On 08/30/2020, patient underwent bronchoscopy with revision of tracheostomy. Patient tolerated procedure well. Prior ET tube was removed. Patient was taken back to ICU. PICC line was inserted to the left upper arm. He was eventually started on deferasirox and ferriprox. Blood culture showed growth of VRE. Sputum culture with Serratia. Patient was given linezolid and cefepime. He had episodes of diarrhea. C. difficile was negative. Patient completed antibiotic treatment. Patient was [facility] to [facility]. FINAL DIAGNOSES: VRE sepsis Serratia pneumonia Respiratory failure status post vent dependence status post revision of tracheostomy Sickle cell crises Occluded G-tube, replaced Abnormal LFTs presumed due to sickle hepatopathy and sepsis Severe anemia requiring blood transfusion Seizure disorder Diarrhea, C. difficile negative Hyper ferritin anemia DISPOSITION: Patient was discharged to [facility]. DISCHARGE MEDICATIONS: Refer to Discharge Medication List. I have been assigned to complete a discharge summary on this account, I was not involved with the patient's management.--GREG Peña Jacqueline Robles NP Sep 09, 2020 23:02
--- NOTE | 2020-09-10 13:30 | NUR ---
CASE MANAGEMENT: Faxed clinical info (face sheet /DC summary) to [facility] @ [phone] and [facility] @ [phone]. REF # [id number] [phone]
== END 2020-09-08 17:53 | DRG 5 ==
LOC: EDBD 18:29 → EMR 18:57 → ICU 20:26 → EDBEDREQ 08-08 00:21 → 2W 08-10 20:00 → ICU 08-25 17:15 → 2W 08-31 18:15
DX: A41.81 Sepsis due to Enterococcus (principal); J95.851 Ventilator associated pneumonia; J69.0 Pneumonitis due to inhalation of food and vomit; G40.909 Epilepsy, unspecified, not intractable, without status epilepticus; Z16.21 Resistance to vancomycin; R65.20 Severe sepsis without septic shock; D57.00 Hb-SS disease with crisis, unspecified; K94.23 Gastrostomy malfunction; J95.03 Malfunction of tracheostomy stoma; J39.8 Other specified diseases of upper respiratory tract; Z86.73 Personal history of transient ischemic attack (TIA), and cerebral infarction without residual deficits; J96.11 Chronic respiratory failure with hypoxia; Z99.11 Dependence on respirator [ventilator] status; Z20.828 Contact with and (suspected) exposure to other viral communicable diseases; R19.7 Diarrhea, unspecified; R71.0 Precipitous drop in hematocrit; G93.40 Encephalopathy, unspecified
CPT/HCPCS: 36415; 36569; 36600; 70450; 71045; 71250; 71275; 74018; 74176; 76705; 76937; 80048; 80053; 80202; 81003; 82140; 82150; 82248; 82550; 82728; 82803; 82962; 83540; 83550; 83605; 83690; 83735; 83880; 84478; 84484; 85007; 85025; 85044; 85610; 85651; 85730; 86039; 86140; 86235; 86256; 86308; 86665; 86695; 86703; 86705; 86709; 86803; 86850; 86900; 86901; 86920; 87040; 87070; 87081; 87181; 87205; 87324; 87340; 87496; 93005; 93306; 93970; 94002; 94003; 94150; 95819; 96361; 96365; 96367; 96368; 96375; 99291; J2370; J2405; J2765; J7030; J8499; U0002

== ENCOUNTER 2020-09-20 22:14 | Inpatient (IN) | payer OTHER ==
[~2020-09-20] VITALS: Ht 182.9 cm; Wt 49.1 kg
[~2020-09-20 22:14] MED LIST changes: +ACETAMINOPHEN325 M1 GT; +ALBUTEROL SULF8.5 G1 INH; +ASCORBIC ACID500 MG GT; +EXJADE125 MG GT; +HIBICLENS118 ML TP; +HYDROMORPHONE HC2 M1 GT; +KEPPRA LIQ100 MG/1 M NG; +KEPPRA1000 MG GT; +MAGNESIUM OXID400 M3 GT; +METOCLOPRAM5 MG/1 M1 IVP; +MORPHINE S10 MG/5 ML GT; +POLYETHYLENE GL17 GM GT; +PRO-STAT LIQUID30 ML GT; +Pantoprazole IVP; +URSODIOL300 MG ORAL; +ZINC SULFATE220 M1 GT
[2020-09-20 22:15] VITALS: BP 124/91
--- NOTE | 2020-09-20 22:22 | Emergency Room Report ---
History of Present Illness General Chief Complaint: Abnormal Labs Source: Medical Record, EMS Present Illness HPI Is a 35-year-old male who had a history of intracranial hemorrhage from cerebral aneurysm. He is status post craniotomy. He also has anoxic brain injury and reside in a assisted. He has a trach and a feeding tube. Patient presents with fever and high white count. Fever was up to 102 at the assisted. White count was 37,000. This was done today. Unable to get any other history from this patient. Patient is nonverbal. There is no reported nausea or vomiting. No reported cough. Allergies: Coded Allergies: ADHESIVE TAPE (Verified Allergy, Unknown, 07/20/20) Uncoded Allergies: TAPE (Allergy, Unknown, 08/07/20) COVID-19 Screening Contact w/high risk pt: Yes Experienced COVID-19 symptoms?: No COVID-19 symptoms experienced: Fever (T>100.4F or >38C) COVID-19 Testing performed RESEARCH NUTRITIONIST: No Patient History Past Medical History: see triage record, old chart reviewed Past Surgical History: other Pertinent Family History: none Social History: Denies: smoking Immunizations: other Reviewed Nursing Documentation: PMH: Agreed; PSxH: Agreed Nursing Documentation-PMH Hx Cardiac Problems: Yes - SINUS TACYCARDIA Hx Cancer: No Hx Gastrointestinal Problems: Yes - GASTROSTOMY Hx Neurological Problems: Yes - , CEREBRAL ANEURYSM. Hx Seizures: Yes Hx Neurologic Surgery: Yes - RIGHT CRANIOTOMY DUE TO ICH Review of Systems Constitutional: Reports: fever All Other Systems: limited - Patient is nonverbal Physical Exam Vital Signs Date Time Temp Pulse Resp B/P (MAP) Pulse Ox O2 Delivery O2 Flow Rate FiO2 09/20/20 22:04 90 19 124/91 (102) 100 Mechanical Ventilator Vitals unremarkable Sp02 EP Interpretation: reviewed, normal General Appearance: cachetic, Chronically Ill Head: other - Large craniotomy defect on right side Eyes: bilateral eye PERRL, bilateral eye EOMI ENT: hearing grossly normal, normal pharynx Neck: tracheotomy Respiratory: chest non-tender, rhonchi Cardiovascular #1: regular rate, rhythm, no murmur Gastrointestinal: normal bowel sounds, non tender, no mass, no organomegaly, no bruit, non-distended Musculoskeletal: back normal, other - Contracted Neurologic: alert Psychiatric: other Skin: no rash Procedures Critical Care Time Critical Care Time Critical care is mandated in this patient who presented with sepsis. Patient require my urgent intervention to attenuate the risks of metabolic collapse which may lead to cardiovascular collapse and . Critical care time is 35 minutes excluding any reportable procedure. Critical care time included evaluation, multiple reevaluation, looking at old charts, interpreting laboratory and diagnostic data, discussing case with patient and family and c onsultants, and charting. Medical Decision Making Diagnostic Impression: Primary Impression: Sepsis Qualified Codes: A41.9 - Sepsis, unspecified organism Additional Impressions: Sickle cell anemia Qualified Codes: D57.1 - Sickle-cell disease without crisis Acute prerenal azotemia ER Course Patient presents with very high white count. He has sepsis. Unknown source but he does have a PICC line. This may be the source of his infection. He did have bacteremia on last admission. I gave him Zosyn and vancomycin here. Vital signs are stable. Will admit for IV antibiotics and further work-up. I contacted Dr. Celaya for admission. EKG Diagnostic Results Troponin ordered: Yes Rate: normal Rhythm: NSR ST Segments: no acute changes Rhythm Strip Diag. Results EP Interpretation: yes Rate: 83 Rhythm: NSR, no PVC's, no ectopy Chest X-Ray Diagnostic Results Chest X-Ray Diagnostic Results : Chest X-Ray Ordered: Yes # of Views/Limited/Complete: 1 View Indication: Shortness of Breath EP Interpretation: Yes Interpretation: no consolidation, no effusion, no pneumothorax, no acute cardiopulmonary disease Impression: No acute disease Electronically Signed by: Vel Nelson MD Last Vital Signs Date Time Temp Pulse Resp B/P (MAP) Pulse Ox O2 Delivery O2 Flow Rate FiO2 09/20/20 22:04 90 19 124/91 (102) 100 Mechanical Ventilator Status: improved Disposition: ADMITTED INPATIENT Condition: Serious Vel Nelson MD Sep 20, 2020 22:22
--- NOTE | 2020-09-20 22:25 | NUR ---
RESPIRATORY NOTE: Pt BIBA in ED d/t elevated WBC. Pt placed on vent w/ settings from previous facility: AC 12, 500VT, 40%, PEEP +5. Pt is trach-dependent w/ a cuffed, Shiley 6 XLT tube. Pt is awake, responds to stimuli. B/S carlos. rhonchi, sxn small to moderate amounts of thick/thin, pale-yellow to guerrero-yellow secretions. Vent plugged into red outlet, [place] at bedside. Pt tolerating well, no distress noted at this time. Will continue to monitor pt.
[2020-09-20] MEDS ORDERED: LEVETIRACETAM500 MG ORAL (22:35)
[2020-09-20] MEDS ORDERED: NORCO 10-325 T1 EACH ORAL (22:35)
[2020-09-20] MEDS ORDERED: METOCLOPRA10 MG/10 M GT (22:35)
[2020-09-20] MEDS ORDERED: ACETAMINOPHEN325 M1 GT (22:35)
[2020-09-20] MEDS ORDERED: Acetaminophen 500mg (ES) tab ORAL ONE (22:45)
--- NOTE | 2020-09-20 22:54 | NUR ---
ED Nurse Note: Pt refusing IV, CXrayv and any other tx. ERMD aware
[2020-09-20] MEDS ORDERED: Piperacillin/Tazobactam 3.375 GM in NS 110 ML IVPB ONE (23:15)
[2020-09-20] MEDS ORDERED: Vancomycin 1 GM in NS 275 ML IVPB ONE (23:15)
[2020-09-20 23:31] LABS: HEMATOCRIT 23.5 % (42.0-52.0); HEMOGLOBIN 7.9 G/DL (14.2-18.0); MEAN CORPUSCULAR VOLUME 92 FL (80-99); PLATELET COUNT 272 K/UL (150-450); RED BLOOD COUNT 2.57 M/UL (4.70-6.10); RED CELL DISTRIBUTION WIDTH 15.9 % (11.6-14.8)
[2020-09-20 23:32] LABS: ANION GAP 8 mmol/L (5-15); BLOOD UREA NITROGEN 60 mg/dL (7-18); CALCIUM 10.1 MG/DL (8.5-10.1); CARBON DIOXIDE 24 MMOL/L (21-32); CHLORIDE 113 MMOL/L (98-107); POTASSIUM 4.7 MMOL/L (3.5-5.1); SODIUM 145 MMOL/L (136-145)
[2020-09-20 23:42] LABS: WHITE BLOOD COUNT 36.5 K/UL (4.8-10.8)
[2020-09-20 23:47] LABS: ALANINE AMINOTRANSFERASE 105 U/L (12-78); ALBUMIN 3.2 G/DL (3.4-5.0); ALBUMIN/GLOBULIN RATIO 0.7 (1.0-2.7); ALKALINE PHOSPHATASE 274 U/L (46-116); ASPARTATE AMINO TRANSFERASE 88 U/L (15-37); CKMB < 0.5 NG/ML (0.0-3.6); CREATINE KINASE < 7 U/L (26-308); FERRITIN 710 NG/ML (8-388)
[2020-09-21] VITALS (7 sets, daily range): BP systolic 100–153; BP diastolic 60–95
[2020-09-21 00:32] LABS: APPEARANCE,URINE CLEAR; BILIRUBIN, URINE NEGATIVE (NEGATIVE); COLOR,URINE PALE YELLOW; GLUCOSE, URINE (UA) NEGATIVE (NEGATIVE); KETONES,URINE NEGATIVE (NEGATIVE); LEUKOCYTE ESTERASE ,URINE NEGATIVE (NEGATIVE); NITRITE,URINE NEGATIVE (NEGATIVE); PH,URINE 5 (4.5-8.0); PROTEIN,URINE NEGATIVE (NEGATIVE); UROBILINOGEN,URINE NORMAL MG/DL (0.0-1.0)
[2020-09-21] MEDS ORDERED: Morphine Sulfate 4mg/ml Inj (IV USE ONLY) IVP ONE (00:45)
--- NOTE | 2020-09-21 00:49 | Emergency Room Report ---
Sepsis Event Note Evaluation Current Stage of Sepsis: Sepsis Possible Source: Unknown Focused Exam Allergies: Coded Allergies: ADHESIVE TAPE (Verified Allergy, Unknown, 07/20/20) Uncoded Allergies: TAPE (Allergy, Unknown, 08/07/20) Date Exam Occurred: Sep 21, 2020 Time Exam Occurred: 00:48 Laboratory Studies Laboratory Tests Test 09/20/20 23:00 09/21/20 00:00 White Blood Count 36.5 K/UL (4.8-10.8) *H Red Blood Count 2.57 M/UL (4.70-6.10) L Hemoglobin 7.9 G/DL (14.2-18.0) L Hematocrit 23.5 % (42.0-52.0) L Mean Corpuscular Volume 92 FL (80-99) Mean Corpuscular Hemoglobin 30.6 PG (27.0-31.0) Mean Corpuscular Hemoglobin Concent 33.4 G/DL (32.0-36.0) Red Cell Distribution Width 15.9 % (11.6-14.8) H Platelet Count 272 K/UL (150-450) Mean Platelet Volume 8.8 FL (6.5-10.1) Neutrophils (%) (Auto) % (45.0-75.0) Lymphocytes (%) (Auto) % (20.0-45.0) Monocytes (%) (Auto) % (1.0-10.0) Eosinophils (%) (Auto) % (0.0-3.0) Basophils (%) (Auto) % (0.0-2.0) Differential Total Cells Counted 100 Neutrophils % (Manual) 79 % (45-75) H Lymphocytes % (Manual) 14 % (20-45) L Monocytes % (Manual) 5 % (1-10) Eosinophils % (Manual) 2 % (0-3) Basophils % (Manual) 0 % (0-2) Band Neutrophils 0 % (0-8) Platelet Estimate Adequate Platelet Morphology Normal D-Dimer 1.95 mg/L FEU (0.00-0.49) H Sodium Level 145 MMOL/L (136-145) Potassium Level 4.7 MMOL/L (3.5-5.1) Chloride Level 113 MMOL/L (98-107) H Carbon Dioxide Level 24 MMOL/L (21-32) Anion Gap 8 mmol/L (5-15) Blood Urea Nitrogen 60 mg/dL (7-18) H Creatinine 1.0 MG/DL (0.55-1.30) Estimat Glomerular Filtration Rate > 60 mL/min (>60) Glucose Level 97 MG/DL (74-106) Lactic Acid Level 0.40 mmol/L (0.4-2.0) Calcium Level 10.1 MG/DL (8.5-10.1) Ferritin 710 NG/ML (8-388) H Total Bilirubin 1.0 MG/DL (0.2-1.0) Aspartate Amino Transf (AST/SGOT) 88 U/L (15-37) H Alanine Aminotransferase (ALT/SGPT) 105 U/L (12-78) H Alkaline Phosphatase 274 U/L (46-116) H Total Creatine Kinase < 7 U/L (26-308) L Creatine Kinase MB < 0.5 NG/ML (0.0-3.6) Creatine Kinase MB Relative Index 0.0 Troponin I 0.000 ng/mL (0.000-0.056) C-Reactive Protein, Quantitative 2.3 mg/dL (0.00-0.90) H Total Protein 7.8 G/DL (6.4-8.2) Albumin 3.2 G/DL (3.4-5.0) L Globulin 4.6 g/dL Albumin/Globulin Ratio 0.7 (1.0-2.7) L Urine Color Pale yellow Urine Appearance Clear Urine pH 5 (4.5-8.0) Urine Specific [place] 1.010 (1.005-1.035) Urine Protein Negative (NEGATIVE) Urine Glucose (UA) Negative (NEGATIVE) Urine Ketones Negative (NEGATIVE) Urine Blood Negative (NEGATIVE) Urine Nitrite Negative (NEGATIVE) Urine Bilirubin Negative (NEGATIVE) Urine Urobilinogen Normal MG/DL (0.0-1.0) Urine Leukocyte Esterase Negative (NEGATIVE) Vital Signs Last 24 Hour Vital Signs Date Time Temp Pulse Resp B/P (MAP) Pulse Ox O2 Delivery O2 Flow Rate FiO2 09/20/20 22:18 125 18 40 09/20/20 22:15 98.1 75 19 124/91 100 Mechanical Ventilator 09/20/20 22:04 98.1 90 19 124/91 (102) 100 Mechanical Ventilator Respiratory Exam: Clear Cardiovascular Exam: RRR Capillary Refill: Less Than 2 Seconds Peripheral Pulse: Strong Pulse Location: Radial Skin Exam: Normal Turgor Vel Nelson MD Sep 21, 2020 00:49
[2020-09-21] MEDS ORDERED: Morphine Sulfate 4mg/ml Inj (IV USE ONLY) IVP PRN (01:00)
--- NOTE | 2020-09-21 01:40 | NUR ---
NURSE NOTES: Received report from [facility] ED RN. Pt came in with fever and increasing WBC, diagnosed with sepsis. Pt transported via gurney with ED staff. Pt is awake, alert x 3, not in acute distress. Resistive to care, and combative. Pt is trach to vent with the following settings AC12, TV 500, FiO2 40%, PEEP 5. PICC line in left Upper arm. Called and left message with Dr. Celaya, awaiting call back. Bed is in lowest position, alarm on, call light is within reach. Head of bed is elevated. Will continue to monitor pt. Will continue with plan of care.
--- NOTE | 2020-09-21 03:15 | NUR ---
NURSE NOTES: Called Dr. Celaya for admission orders. Awaiting for response.
[2020-09-21] MEDS: D5 1/2NS 1,000 ML IV SCH ×3 (04:07→23:37)
--- NOTE | 2020-09-21 05:50 | NUR ---
Called Dr. Celaya regarding admit order. Awaiting response.
--- NOTE | 2020-09-21 07:28 | NUR ---
NURSE NOTES: Dr. Celaya rounded bedside, ordered to d/c PICC line, maybe source of infection. All new orders noted and carried out. Diet will be ordered by Dr. Celaya.
--- NOTE | 2020-09-21 07:32 | NUR ---
Dr. Celaya informed of abnormal labs: Hgb 7.9, D-dimer 1.95. Dr. Celaya also informed of episodes of Sinus Bradycardia in the 50s.
--- NOTE | 2020-09-21 07:34 | NUR ---
NURSE HAND-OFF REPORT: Important Events on Shift: New admission Patient Status: Full code, Sinus Momo to Sinus Rhythm Diet: pending order Pending Orders:diet, DVT prophylaxis, GI prophylaxis Pending Results/Labs:MRSA, VRE swab Pending MD notification:none Latest Vital Signs: Temperature 96.8 , Pulse 67 , B/P 125 /83 , Respiratory Rate 12 , O2 SAT 100 , Mechanical Ventilator, O2 Flow Rate . Vital Sign Comment: stable with episodes of Sinus Momo EKG Rhythm: Sinus Rhythm Rhythm change?: Sinus Bradycardia MD Notified?: Y Response: ok Latest Stevens Fall Score: 55 Fall Risk: High Risk Safety Measures: Call light Within Reach, Bed Alarm Zone 2, Side Rails Side Rails x3, Bed position Low and Locked. Fall Precautions: Yellow Socks Report given to ARLYN East
--- NOTE | 2020-09-21 07:36 | NUR ---
NURSE NOTES: Received patient from ARLYN Merritt under the care of Dr. Celaya for the admitting dx of sepsis and increased WBC. Patient is full code, with isolations and safety precaustions observed and maintained at all times. patient is Alert and awake, with eyes open and tracking and communicating with gestures. Patient denies pain and discomfort at this time. Will continue to monitor.
[2020-09-21] MEDS ORDERED: Acetaminophen 650mg/20.3ml GT PRN (08:45)
--- NOTE | 2020-09-21 09:00 | NUR ---
NURSE NOTES: Pt is awake, alert x 3, not in acute distress. Patient noted with episodes of resistive to care, and combative. Patient tolerating vent settings of AC12, TV 500, FiO2 40%, PEEP 5 well. PICC line in left Upper arm. All due meds given and tolerated well. Bed is in lowest position, alarm on, call light is within reach. Head of bed is elevated. Will continue with current plan of care.
[2020-09-21] MEDS: Cefepime HCl 1 GM in D5W 55 ML IVPB SCH ×2 (09:04→21:27)
--- NOTE | 2020-09-21 09:30 | History and Physical Report ---
DATE OF ADMISSION: 09/21/2020 CHIEF COMPLAINT: Possible sepsis. HISTORY OF PRESENT ILLNESS: The patient is an unfortunate 35-year-old male. He has a history of intracranial bleed, craniotomy, seizure disorder, sickle cell anemia, and chronic respiratory failure. [facility] after routine labs showed a white count of nearly 40,000. There were no reports of any fevers, but the patient has had some episodes of tachycardia. In the emergency room, his white count was confirmed at 37,000. His urine was clear. In light of his significant leukocytosis, he is now admitted for further evaluation and care. PAST MEDICAL HISTORY: As above. PAST SURGICAL HISTORY: As above. CURRENT MEDICATIONS: Reconciled and reviewed. ALLERGIES: Include tape. FAMILY HISTORY: Noncontributory. SOCIAL HISTORY: There is no known history of tobacco, ethanol, or drugs. REVIEW OF SYSTEMS: From the patient is unobtainable as he is currently on the vent. PHYSICAL EXAMINATION: VITAL SIGNS: Temperature 98, pulse 86, respirations 12, blood pressure 153/95. GENERAL: The patient is in no apparent distress. HEENT: There is evidence of an old craniotomy. HEART: Regular. LUNGS: Clear. ABDOMEN: Soft. EXTREMITIES: Without cyanosis or edema. LABORATORY DATA: Labs were reviewed. ASSESSMENT: This is an unfortunate 35-year-old male admitted with complaints of significant leukocytosis of unclear etiology. PLAN: We will remove the patient's PICC line. We will culture. Empiric antibiotic therapy. ID, Pulmonary, and Cardiology evaluations will be obtained. Lalo Celaya M.D. DR: RAMON JOB#: [id number] CC:
--- NOTE | 2020-09-21 09:59 | NUR ---
RD ASSESSMENT & RECOMMENDATIONS SEE CARE ACTIVITY FOR COMPLETE ASSESSMENT DAILY ESTIMATED NEEDS: Needs based on Underweight, Critical care, wound/ 49kg 25-35 kcals/kg 6176-3039 total kcals 1.25-2 g protein/kg 61-98 g total protein 25-30 mL/kg 3444-9369 total fluid mLs NUTRITION DIAGNOSIS: Swallowing difficulty R/T respiratory status, dysphagia as evidenced by h/o craniotomy, trach/vent dep, on GT feeds. CURRENT TF:NPO ENTERAL NUTRITION RECOMMENDATIONS: Jevity 1.2 @ 55ml/hr x 24 hrs to provide 1320ml, 1584kcal, 73g prot, 1065ml free water * As medically appropriate, intiiate Jevity 1.2 @ 35ml/hr x 6hrs * Advance 10ml q 4-6 hrs as tolerated to goal * HOB over 30 degrees/ water flush per MD ADDITIONAL RECOMMENDATIONS: * Daily calibrated bedscale wt * Wound healing: TF rec @ goal will provide 100% RDI add Vit C 250mg QD + ZnSO4 220mg QD x 10 days add Rolan BID w/ TF order * Monitor lytes, replete as needed * Monitor BGs w/ TF .
[2020-09-21] MEDS: Vancomycin 1.25gm/NS Premix IVPB SCH ×2 (10:49→23:30)
--- NOTE | 2020-09-21 11:00 | NUR ---
NURSE NOTES: Noted FLACC score of 0/10. Patient is asleep but easily arousable. Patient noted with episodes of resistive to care, and being combative. Patient tolerating vent settings of AC12, TV 500, FiO2 40%, PEEP 5 well. PICC line in left Upper arm. All due meds given and tolerated well. Bed is in lowest position, alarm on, call light is within reach. Head of bed is elevated. Will continue with current plan of care.
--- NOTE | 2020-09-21 12:40 | NUR ---
NURSE NOTES: Patient seen by wound care nurse with recommendations,they spoke to [employer]-primary RN ,ordered overlay mattress
--- NOTE | 2020-09-21 12:41 | Diagnostic Imaging Report ---
Indication: Reason For Exam: SOB Technique: Single AP view of the chest. Comparison: Chest radiograph dated 08/29/2020 Findings: The cardiomediastinal silhouette is unchanged appearance. Streaky bibasilar airspace opacities. No pneumothorax or pleural effusion. Redemonstration of linear left basilar opacity likely representing chronic atelectasis or scarring. No acute osseous abnormality. Cannulated tracheostomy in place. Interval placement of left PICC, with tip in expected location of the lower SVC. Interval removal of right PICC. IMPRESSION: Streaky bibasilar airspace opacities which could represent atelectasis but pneumonia should be excluded clinically.
--- NOTE | 2020-09-21 13:00 | NUR ---
NURSE NOTES: Patient awake and alert. Denies pain at this time. No sign of apparent distress or discomfort at this time. Received orders from Dr. Kemp for blood culture through the PICC line. Noted and carried out.
--- NOTE | 2020-09-21 13:58 | NUR ---
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 98.0 HR 90 RR 19 B/P 124/91 AC 12 TV 500 FIO2 40% PEEP 5 WBC 36.5 H/H 7.9/23.5 BUN 60 IS: IVF NS X 1 LITER VANCO IV ZOSYN IV TYLENOL GT ADMITTED TO STEP DOWN @ 0140 STEP DOWN STATUS DCP RETURN TO [facility] CONV.
--- NOTE | 2020-09-21 14:07 | NUR ---
PACKAGING ASSOCIATE NOTES CLINICALS REVIEWED AND FAXED TO [facility].
--- NOTE | 2020-09-21 14:30 | NUR ---
NURSE NOTES: Dr. Celaya agreed with Dr. Edmundo Kmep's recommendation of holding off the D/C of the PICC line until the results of the blood culture comes out. Noted.
--- NOTE | 2020-09-21 15:00 | NUR ---
NURSE NOTES: Patient is awake and interacting with family members via video call through his phone. Denies pain and discomfort at this time. Tolerating vent settings well. GT feeding tolerated well, with no residual noted. Will continue to monitor.
--- NOTE | 2020-09-21 16:17 | Consultation ---
History of Present Illness General Reason for Hospitalization: Abnormal Labs Present Illness HPI 35 year old male well known to me from prior care and surgical intervention. He was recently discharged in stable condition and doing okay until labs at care facility identified leukocytosis and patient was tachycardic. no n/v +f/c. on support. came to ED for evaluation and [place] [facility] [place] and management. still with trach stable. tube feeds. comfortable. responsive on support. Allergies: Coded Allergies: ADHESIVE TAPE (Verified Allergy, Unknown, 07/20/20) Uncoded Allergies: TAPE (Allergy, Unknown, 08/07/20) COVID-19 Screening Contact w/high risk pt: Yes Experienced COVID-19 symptoms?: Yes Coronavirus symptoms experienc: Fever (T>100.4F or >38C) Medication History Scheduled Acetaminophen* (Acetaminophen 325MG Tablet*), 325 MG GT Q6HR, (Reported) Albuterol Sulfate* (Albuterol Sulfate Hfa*), 2 PUFF INH Q3H, (Reported) Albuterol Sulfate* (Albuterol Sulfate Hfa*), 2 PUFF INH Q6H, (Reported) Amino Acids/Protein Hydrolys (Pro-Stat Liquid), 30 ML GT DAILY, (Reported) Ascorbic Acid* (Ascorbic Acid*), 500 MG GT DAILY, (Reported) Baclofen* (Baclofen*), 10 MG GT THREE TIMES A DAY, (Reported) Chlorhexidine Gluconate* (Hibiclens*), 15 ML TP BID, (Reported) Deferasirox (Exjade), 1,080 MG GT DAILY, (Reported) Deferiprone (Ferriprox), 1,000 MG GT Q8HR, (Reported) Famotidine* (Pepcid 20mg tablet*), 20 MG GT DAILY, (Reported) Folic Acid* (Folic Acid*), 1 MG GT DAILY, (Reported) Ipratropium [place] (Atrovent Hfa), 2 PUFFS IH Q3HR, (Reported) Levetiracetam* (Levetiracetam*), 500 MG ORAL Q8HR, (Reported) Magnesium Oxide (Magnesium Oxide), 400 MG GT DAILY, (Reported) Metoclopramide Hcl* (Metoclopramide Hcl*), 10 MG GT Q8HR, (Reported) Multivitamins* (Multivitamins*), 1 TAB GT DAILY, (Reported) Polyethylene Glycol 3350* (Polyethylene Glycol 3350*), 17 GM GT BEDTIME, (Reported) Ursodiol (Ursodiol*), 300 MG ORAL TWICE A DAY Zinc Sulfate (Zinc Sulfate*), 220 MG GT DAILY, (Reported) [Pantoprazole], 40 MG IVP EVERY 12 HOURS Scheduled PRN Acetaminophen* (Acetaminophen 325MG Tablet*), 650 MG ORAL Q4H PRN for Mild pain/temp >101F, (Reported) Hydrocodone Bit/Acetaminophen 10-325* ([place] 10-325*), 1 TAB ORAL Q4H PRN for For Pain, (Reported) Hydromorphone Hcl (Hydromorphone Hcl), 2 MG GT for Moderate Pain (Pain Scale 4- 6), (Reported) Hydroxyurea* (HYDREA 500mg*), 500 MG GT DAILY PRN for SICKLE CELL ANEMIA , (Reported) Ipratropium [place] (Atrovent Hfa), 12.9 GM IH Q6HR PRN for Shortness of Breath, (Reported) Morphine 10mg/5ml Oral Soln* (Morphine 10mg/5ml Oral Soln*), 4 MG GT for Severe Pain (Pain Scale 7-10), (Reported) Discontinued Medications Levetiracetam (Keppra), 1,000 MG GT DAILY, (Reported) Discontinued Reason: Medication dose changed Levetiracetam (Keppra), 500 MG NG Q12HR Discontinued Reason: Medication dose changed Metoclopramide Hcl (Metoclopramide Hcl*), 10 MG IVP Q8H PRN Discontinued Reason: Medication dose changed Patient History Limited by: medical condition History Provided By: Medical Record, PMD Healthcare decision maker Resuscitation status Advanced Directive on File Past Medical/Surgical History Past Medical/Surgical History: (1) Sickle cell crisis (2) Port-A-Cath in place (3) Tachycardia (4) Pneumonia (5) Severe sepsis (6) Sickle cell anemia (7) Sepsis (8) Acute prerenal azotemia (9) Status post craniectomy Review of Systems Review of Symptoms General ROS: no weight loss or fever Psychological ROS: no depression or mood changes, no memory loss Ophthalmic ROS: no visual changes or eye irritation ENT ROS: no nasal congestion, hearing loss, dizziness Allergy and Immunology ROS: no allergic symptoms or urticaria Hematological and Lymphatic ROS: no swollen glands, unusual bleeding or bruising Endocrine ROS: no polyuria, polydipsia, weight changes, temperature intolerance Respiratory ROS: no cough, shortness of breath, or wheezing Cardiovascular ROS: no chest pain or dyspnea on exertion Gastrointestinal ROS: denies abdominal pain, bright red blood in stool. Musculoskeletal ROS: no myalgias or arthralgias Neurological ROS: no TIA or stroke symptoms Dermatological ROS: no new or changing skin lesions, rashes or pruritis limited Physical Exam Physical Exam General appearance: alert, cooperative, no distress, appears stated age Head: Normocephalic, without obvious abnormality, craniotomy with depressed defect Eyes: conjunctivae/corneas clear. PERRL, EOM's intact. Fundi benign Throat: Lips, mucosa, and tongue normal. Teeth and gums normal Neck: supple, symmetrical, trachea midline, no adenopathy, thyroid: not enlarged, symmetric, no tenderness/mass/nodules, no carotid bruit and no JVD; trach stable Lungs: clear to auscultation bilaterally Heart: regular rate and rhythm, S1, S2 normal, no murmur, click, rub or gallop Abdomen: soft, non-tender. Bowel sounds normal. No masses, no organomegaly +ft Extremities: extremities normal, atraumatic, no cyanosis or edema Pulses: 2+ and symmetric Skin: Skin color, texture, turgor normal. No rashes or lesions Neurologic: Grossly normal Last 24 Hour Vital Signs Date Time Temp Pulse Resp B/P (MAP) Pulse Ox O2 Delivery O2 Flow Rate FiO2 09/21/20 15:10 68 12 40 09/21/20 13:09 51 12 40 09/21/20 12:00 51 09/21/20 12:00 97.2 50 12 100/60 (73) 100 09/21/20 12:00 40 09/21/20 12:00 Mechanical Ventilator 09/21/20 11:04 53 12 40 09/21/20 08:55 55 12 40 09/21/20 08:00 Mechanical Ventilator 09/21/20 08:00 40 09/21/20 08:00 96.4 54 12 111/78 (89) 100 09/21/20 08:00 54 09/21/20 06:56 58 12 40 09/21/20 05:05 67 12 40 09/21/20 04:00 40 09/21/20 04:00 63 09/21/20 04:00 Mechanical Ventilator 09/21/20 04:00 96.8 62 17 125/83 (97) 100 09/21/20 03:01 68 12 40 09/21/20 02:28 98.4 86 153/95 (114) 100 09/21/20 02:21 Mechanical Ventilator 09/21/20 02:00 90 09/21/20 01:40 98.1 78 12 118/95 100 Mechanical Ventilator 40 09/21/20 01:37 98.1 09/21/20 01:35 75 12 40 09/21/20 00:15 98.5 78 16 118/95 100 Mechanical Ventilator 40 09/20/20 22:18 125 18 40 09/20/20 22:15 98.1 75 19 124/91 100 Mechanical Ventilator 09/20/20 22:04 98.1 90 19 124/91 (102) 100 Mechanical Ventilator Intake and Output 09/20/20 09/21/20 19:00 07:00 Intake Total 200 ml Output Total 650 ml Balance -450 ml Intake IV Total 200 ml Output Urine Total 650 ml # Bowel Movements 1 Laboratory Tests Test 09/20/20 23:00 09/21/20 00:00 09/21/20 04:36 White Blood Count 36.5 K/UL (4.8-10.8) *H Red Blood Count 2.57 M/UL (4.70-6.10) L Hemoglobin 7.9 G/DL (14.2-18.0) L Hematocrit 23.5 % (42.0-52.0) L Mean Corpuscular Volume 92 FL (80-99) Mean Corpuscular Hemoglobin 30.6 PG (27.0-31.0) Mean Corpuscular Hemoglobin Concent 33.4 G/DL (32.0-36.0) Red Cell Distribution Width 15.9 % (11.6-14.8) H Platelet Count 272 K/UL (150-450) Mean Platelet Volume 8.8 FL (6.5-10.1) Neutrophils (%) (Auto) % (45.0-75.0) Lymphocytes (%) (Auto) % (20.0-45.0) Monocytes (%) (Auto) % (1.0-10.0) Eosinophils (%) (Auto) % (0.0-3.0) Basophils (%) (Auto) % (0.0-2.0) Differential Total Cells Counted 100 Neutrophils % (Manual) 79 % (45-75) H Lymphocytes % (Manual) 14 % (20-45) L Monocytes % (Manual) 5 % (1-10) Eosinophils % (Manual) 2 % (0-3) Basophils % (Manual) 0 % (0-2) Band Neutrophils 0 % (0-8) Platelet Estimate Adequate Platelet Morphology Normal D-Dimer 1.95 mg/L FEU (0.00-0.49) H Sodium Level 145 MMOL/L (136-145) Potassium Level 4.7 MMOL/L (3.5-5.1) Chloride Level 113 MMOL/L (98-107) H Carbon Dioxide Level 24 MMOL/L (21-32) Anion Gap 8 mmol/L (5-15) Blood Urea Nitrogen 60 mg/dL (7-18) H Creatinine 1.0 MG/DL (0.55-1.30) Estimat Glomerular Filtration Rate > 60 mL/min (>60) Glucose Level 97 MG/DL (74-106) Lactic Acid Level 0.40 mmol/L (0.4-2.0) Calcium Level 10.1 MG/DL (8.5-10.1) Ferritin 710 NG/ML (8-388) H Total Bilirubin 1.0 MG/DL (0.2-1.0) Aspartate Amino Transf (AST/SGOT) 88 U/L (15-37) H Alanine Aminotransferase (ALT/SGPT) 105 U/L (12-78) H Alkaline Phosphatase 274 U/L (46-116) H Total Creatine Kinase < 7 U/L (26-308) L Creatine Kinase MB < 0.5 NG/ML (0.0-3.6) Creatine Kinase MB Relative Index 0.0 Troponin I 0.000 ng/mL (0.000-0.056) C-Reactive Protein, Quantitative 2.3 mg/dL (0.00-0.90) H Total Protein 7.8 G/DL (6.4-8.2) Albumin 3.2 G/DL (3.4-5.0) L Globulin 4.6 g/dL Albumin/Globulin Ratio 0.7 (1.0-2.7) L Urine Color Pale yellow Urine Appearance Clear Urine pH 5 (4.5-8.0) Urine Specific [place] 1.010 (1.005-1.035) Urine Protein Negative (NEGATIVE) Urine Glucose (UA) Negative (NEGATIVE) Urine Ketones Negative (NEGATIVE) Urine Blood Negative (NEGATIVE) Urine Nitrite Negative (NEGATIVE) Urine Bilirubin Negative (NEGATIVE) Urine Urobilinogen Normal MG/DL (0.0-1.0) Urine Leukocyte Esterase Negative (NEGATIVE) POC Whole Blood Glucose 96 MG/DL (74-106) Microbiology Date/Time Source Procedure Growth Status 09/20/20 23:00 Nasopharynx SARS-CoV-2 RdRp Gene Assay - Final Complete Height (Feet): 6 Weight (Pounds): 150 Medications Current Medications Medications (Trade) Dose Ordered Sig/Piedad Route PRN Reason Start Time Stop Time Status Last Admin Dose Admin Acetaminophen (Tylenol) 650 mg Q4H PRN GT Temp >100.5 09/21/20 08:45 10/21/20 08:44 Acetaminophen (Tylenol) 650 mg Q4H PRN GT pain scale 1-6 09/21/20 09:30 10/21/20 09:29 Cefepime HCl 1 gm/ Dextrose 55 ml @ 110 mls/hr EVERY 12 HOURS IVPB 09/21/20 09:00 09/28/20 08:59 09/21/20 09:04 Dextrose/Sodium Chloride 1,000 ml @ 100 mls/hr Q10H IV 09/21/20 04:00 10/21/20 03:59 09/21/20 14:27 Levetiracetam (Keppra) 750 mg Q12HR ORAL 09/21/20 09:00 10/21/20 08:59 09/21/20 09:03 Morphine Sulfate (Morphine Sulfate) 2 mg Q4H PRN IVP Severe Pain (Pain Scale 7-10) 09/21/20 09:30 09/28/20 09:29 Vancomycin HCl ([facility]anco pharmacy to dose) 1 ea DAILY PRN MISC Per rx protocol 09/21/20 03:30 10/21/20 03:29 Vancomycin/Sodium Chloride 275 ml @ 183.333 mls/hr Q12H IVPB 09/21/20 11:00 09/26/20 10:59 09/21/20 10:49 Assessment/Plan Problem List: (1) Sickle cell anemia ICD Codes: D57.1 - Sickle-cell disease without crisis SNOMED: 386755067 Qualifiers: Qualified Codes: D57.1 - Sickle-cell disease without crisis (2) Sickle cell crisis ICD Codes: D57.00 - Hb-SS disease with crisis, unspecified SNOMED: 187009531 (3) Tachycardia ICD Codes: R00.0 - Tachycardia, unspecified SNOMED: 3950329 (4) Sepsis Assessment & Plan: 35-year-old male sickle cell multiple comorbidities history of craniotomy trach feeding tube prior port infected removed see prior admission and consult and operative notes. Currently presents with significant leukocytosis fevers hypotension in intensive care unit wound site evaluated unlikely etiology. Trach evaluated may consider changing. LFTs noted elevated. Ultrasound ordered pending results trend labs continue IV antibiotics appreciate infectious disease input will follow with recommendations thank you for let me participate in patient's care KUB and US noted labs reviewed transfuse prbc prn trach change peg changed line out picc placed persistent wbc h/h noted anemia ss better since new trach Shiley [address] secretions manageable Trach replaced at bedside 925 for malpositioning it was identified he does have a false track as well. Will ensure trach is in correct positioning daily every shift trach not stable removed and intubated 08/25 on ett vent will need trach revision discussed with mother and medical teams trach and picc s/p trach revision 6 f dxlt last admission trach stable vent stable wbc persistent again pulmonary arteries: Evaluation for pulmonary embolus is limited due to breathing motion artifact. No central pulmonary emboli are identified. Aorta: No acute findings. No thoracic aortic aneurysm. Lungs: There are moderately consolidating infiltrates identified in both lower lobes dependently with mild additional patchy infiltrates dependently in both upper lobes. The findings are consistent with bilateral nonspecific pneumonia. Aspiration pneumonia could give this appearance. The infiltrates are only somewhat typical of Covid 19. Confidence is immediate. Pleural space: Unremarkable. No significant effusion. No pneumothorax. Heart: Unremarkable. No cardiomegaly. No significant pericardial effusion. No evidence of RV dysfunction. Bones/joints: No acute fracture. No dislocation. Soft tissues: Unremarkable. Lymph nodes: Unremarkable. No enlarged lymph nodes. Tubes, lines and devices: There is a tracheostomy tube in good position. IMPRESSION: 1. There are moderately consolidating infiltrates identified in both lower lobes dependently with mild additional patchy infiltrates dependently in both upper lobes. The findings are consistent with bilateral nonspecific pneumonia. Aspiration pneumonia could give this appearance. The infiltrates are only somewhat typical of Covid 19. Confidence is immediate. 2. Evaluation for pulmonary embolus is limited due to breathing motion artifact. No central pulmonary emboli are identified. The liver is homogeneous. We cannot identify a normal spleen. There is dense crescentic calcification in the left upper quadrant at the expected location of the spleen. Gallbladder is absent. The pancreas is unremarkable. Adrenals are normal in morphology. There is a small punctate cortical calcification left kidney. No hydronephrosis bilaterally There is a G-tube in place. Gas-filled bowel loops identified throughout the abdomen and pelvis. No discrete transition point or obstruction. Appendix partially visualized. There is some free fluid in the pelvis. There is no free air. There is a mildly prominent lymph nodes noted in the upper to mid retroperitoneum noted of undetermined etiology or significance. Rivera catheter noted in the bladder. The reservoir for the penile prosthesis is identified in the left lower pelvis. There is a right femoral venous catheter in place. Diffuse sclerosis of the bony pelvis and hips noted of undetermined etiology. IMPRESSION: BILATERAL LOWER LOBE PNEUMONIAS. ALSO SOME HAZY INFILTRATES IN THE UPPER LOBES. A NORMAL SPLEEN IS NOT VISUALIZED. THERE IS A DENSE CRESCENTIC CALCIFICATION LEFT UPPER QUADRANT AT THE EXPECTED LOCATION OF THE SPLEEN. 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 PUNCTATE CORTICAL CALCIFICATION LEFT KIDNEY. NO HYDRONEPHROSIS. PROMINENT LYMPH NODES IN THE UPPER TO MID RETROPERITONEUM OF UNDETERMINED ETIOLOGY OR SIGNIFICANCE. G-TUBE, RIVERA CATHETER, RIGHT FEMORAL CATHETER AND PENILE PROSTHESIS NOTED IN PLACE. MILD DIFFUSE SCLEROSIS OF THE BONY PELVIS AND BOTH HIPS OF UNDETERMINED ETIOLOGY. QUESTION HISTORY OF RENAL OSTEODYSTROPHY. There is a large craniectomy defect in the right frontal temporal region. Diffuse age-related volume loss demonstrated. 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 No definite acute infarct seen. There is no hemorrhage, mass effect or shift. Ventricles and cisterns as well as brainstem and posterior fossa appear unremarkable. The sellar region is normal. Sinuses, mastoid air cells and bony calvarium appear intact. IMPRESSION: Large right frontotemporal craniectomy defect. 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 No definite acute intracranial abnormality. ICD Codes: A41.9 - Sepsis, unspecified organism SNOMED: 87379738 Qualifiers: Qualified Codes: A41.9 - Sepsis, unspecified organism (5) Pneumonia ICD Codes: J18.9 - Pneumonia, unspecified organism SNOMED: 815710709 (6) Severe sepsis ICD Codes: A41.9 - Sepsis, unspecified organism; R65.20 - Severe sepsis without septic shock SNOMED: 61235865 (7) Port-A-Cath in place ICD Codes: Z95.828 - Presence of other vascular implants and grafts SNOMED: 575961934 (8) Acute prerenal azotemia ICD Codes: R79.89 - Other specified abnormal findings of blood chemistry SNOMED: 707462764 (9) Status post craniectomy ICD Codes: Z98.890 - Other specified postprocedural states SNOMED: 337546096, 25549689 (10) Decubitus skin ulcer Assessment & Plan: SACRUM- STAGE II PRESSURE ULCER MEASURING 1.5X0.5X0.2CM. WOUND BED PINK WITH MINIMAL SERO-SANGUINEOUS DRAINAGE. RECOMMEND-CLEAN WITH SALINE. PAT DRY. APPLY CALAZINE AND COVER WITH OPTIFOAM DRESSING. REPLACE DAILY. LEFT HEEL- STAGE I PRESSURE ULCER. 4X4X0.1CM NON-BLANCHABLE ERYTHEMA NOTED. RECOMMEND-APPLY SKIN CAVILON BARRIER AND COVER WITH OPTIFOAM DRESSING. REPLACE EVERY 3 DAYS. CONTINUE WOUND PREVENTION PROTOCOLS. REPOSITION AT LEAST EVERY 2 HOURS OR TOLERATED OFF-LOAD HEELS WITH PILLOWS ICD Codes: L89.90 - Pressure ulcer of unspecified site, unspecified stage SNOMED: 136790852 Harman Zhao Sep 21, 2020 16:17
--- NOTE | 2020-09-21 16:46 | NUR ---
NURSE NOTES:WOUND ASSESSMENT PATIENT AWAKE. NON-VERBAL WITH TRACHEOSTOMY. UNABLE TO ASSIST WITH REPOSITIONING. SACRUM- STAGE II PRESSURE ULCER MEASURING 1.5X0.5X0.2CM. WOUND BED PINK WITH MINIMAL SERO-SANGUINEOUS DRAINAGE. RECOMMEND-CLEAN WITH SALINE. PAT DRY. APPLY CALAZINE AND COVER WITH OPTIFOAM DRESSING. REPLACE DAILY. LEFT HEEL- STAGE I PRESSURE ULCER. 4X4X0.1CM NON-BLANCHABLE ERYTHEMA NOTED. RECOMMEND-APPLY SKIN CAVILON BARRIER AND COVER WITH OPTIFOAM DRESSING. REPLACE EVERY 3 DAYS. PER NURSE AV OVERLAY HAS ALREADY BEEN ORDERED. CONTINUE WOUND PREVENTION PROTOCOLS. REPOSITION AT LEAST EVERY 2 HOURS OR TOLERATED OFF-LOAD HEELS WITH PILLOWS
--- NOTE | 2020-09-21 17:00 | NUR ---
NURSE NOTES: Patient is awake and watching TV at this time. Denies pain and discomfort at this time. Tolerating vent settings well. GT feeding tolerated well, with no residual noted. Will continue to monitor.
--- NOTE | 2020-09-21 18:15 | Consultation ---
DATE OF CONSULTATION: 09/21/2020 INFECTIOUS DISEASES CONSULTATION This consult is for coverage of Dr. Degroot. CONSULTING PHYSICIAN: Wyatt Kemp M.D. PRIMARY ATTENDING PHYSICIAN: Lalo Celaya M.D. REASON FOR CONSULTATION: Sepsis, pneumonia. HISTORY OF PRESENT ILLNESS: This is a 35-year-old male admitted today from nursing facility because of elevation in WBC count. The patient had leukocytosis near 40,000 in nursing facility and in hospital it was 36.5. The patient was recently discharged from [facility] on September 08, 2020. He has always elevated WBC, but this elevation of WBC is more than usual. He had an episode of tachycardia at the time of admission. PAST MEDICAL HISTORY: Sickle cell disease, ventilator-dependent respiratory failure, intracranial hemorrhage, seizure disorder, chronic anemia. On previous admission between August 07, 2020 and September 08, 2020, he had VRE sepsis, likely secondary to line infection. PAST SURGICAL HISTORY: Craniotomy, G-tube placement and tracheostomy. ALLERGIES: Adhesive tape. MEDICATIONS: Vancomycin, morphine, Keppra, cefepime, Tylenol. SOCIAL HISTORY: custodial resident. No history of tobacco, alcohol abuse, or drug abuse. REVIEW OF SYSTEMS: He has generalized pain. No other history obtainable. PHYSICAL EXAMINATION: VITAL SIGNS: Temperature 97.2, pulse 50, blood pressure 100/60. GENERAL APPEARANCE: The patient seems to be cachectic. HEAD AND NECK: Craniotomy on the right side of the head. It seemed that a scalp bone and tissue were removed. Has tracheostomy. HEART: Bradycardic. Has left arm PICC line that was placed on August 30, 2020. LUNGS: clear bilaterally on ventilator. ABDOMEN: Soft. G-tube in place. EXTREMITIES: No edema. Has muscle atrophy. NEUROLOGIC: Awake, responsive. LABORATORY AND DIAGNOSTIC DATA: Sodium 145, potassium 4.7, chloride 113, bicarb 24, BUN 60, creatinine 1, glucose 97. AST 88, ALT 105, alkaline phosphatase 274. UA was negative. Chest x-ray showed streaky bibasilar airspace opacity, atelectasis. IMPRESSION: 1. Sepsis with increase of WBC and tachycardia. 2. Atelectasis or pneumonia. We will try to rule out line infection. 3. Sickle cell disease. 4. Ventilator-dependent respiratory failure. 5. Chronic anemia. 6. Cachexia. 7. Elevated transaminase. RECOMMENDATIONS: Obtain a blood culture from line. We will follow up the cultures. Continue with cefepime and vancomycin. At the end of my exam, I thank Dr. Celaya for involving me in the care of this patient. Wyatt Kemp M.D. DR: TREMAINE JOB#: [id number] CC: JOSE
--- NOTE | 2020-09-21 19:00 | NUR ---
NURSE NOTES: Received pt from [facility]. Pt is comfortably resting in bed, not in distress. A/O x 3. Denies pain. Pt is resistive to care. Pt uses cell phone to call his mom. PICC line in left upper arm patent and intact and running D5 1/2 @ 100cc/hr. G-tube is patent and running Jevity 1.2 @ 55cc/hr, 0 residual. Overton catheter is patent and draining light sandy urine. Bed is locked and in lowest position, bed alarm on, call light within reach. Head of bed is elevated. Will continue to monitor the pt. Will continue with the plan of care.
--- NOTE | 2020-09-21 19:25 | NUR ---
NURSE HAND-OFF REPORT: Important Events on Shift: Blood culture collected Patient Status: Stable Diet: GT feeding Pending Orders: Pending Results/Labs: Blood culture Pending notification: Latest Vital Signs: Temperature 98.0 , Pulse 94 , B/P 116 /78 , Respiratory Rate 14 , O2 SAT 100 , Mechanical Ventilator, O2 Flow Rate . Vital Sign Comment: Bradycardic EKG Rhythm: Sinus Rhythm Rhythm change?: Y MD Notified?: N -Belia JIMENEZ Response: Latest Stevens Fall Score: 55 Fall Risk: High Risk Safety Measures: Call light Within Reach, Bed Alarm Zone 2, Side Rails Side Rails x3, Bed position Low and Locked. Fall Precautions: Yellow Socks Report given to [facility].
[2020-09-21] MEDS: Acetaminophen 650mg/20.3ml GT PRN (21:41)
--- NOTE | 2020-09-21 22:00 | NUR ---
NURSE NOTES: Evening medications are given. Pt is tolerating vent setting and saturating 100%. Vital signs are stable. 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 Full physical assessment done. Skin issues noted and dressings are intact. Will continue to monitor the pt.
[2020-09-22] VITALS: BP 115/72
--- NOTE | 2020-09-22 03:00 | NUR ---
NURSE NOTES: No distress noted at this time. SR on pvc monitor. Tolerating current vent setting. Tolerating tube feeding, no residual , GT intact, asymptomatic. Bed bath given. Oral care given. Reposition done. Will continue to monitor.
[2020-09-22 04:00] VITALS: BP 131/75
[2020-09-22 04:53] LABS: HEMATOCRIT 20.2 % (42.0-52.0); MEAN CORPUSCULAR VOLUME 96 FL (80-99); PLATELET COUNT 227 K/UL (150-450); RED BLOOD COUNT 2.09 M/UL (4.70-6.10); RED CELL DISTRIBUTION WIDTH 16.3 % (11.6-14.8); WHITE BLOOD COUNT 20.3 K/UL (4.8-10.8)
[2020-09-22 05:07] LABS: HEMOGLOBIN 6.5 G/DL (14.2-18.0)
[2020-09-22 05:36] LABS: ALANINE AMINOTRANSFERASE 107 U/L (12-78); ALBUMIN 2.6 G/DL (3.4-5.0); ALBUMIN/GLOBULIN RATIO 0.7 (1.0-2.7); ALKALINE PHOSPHATASE 222 U/L (46-116); ANION GAP 8 mmol/L (5-15); ASPARTATE AMINO TRANSFERASE 87 U/L (15-37); BILIRUBIN,TOTAL 0.9 MG/DL (0.2-1.0); BLOOD UREA NITROGEN 44 mg/dL (7-18); CARBON DIOXIDE 23 MMOL/L (21-32); CHLORIDE 118 MMOL/L (98-107); CREATININE 0.8 MG/DL (0.55-1.30); POTASSIUM 4.1 MMOL/L (3.5-5.1); SODIUM 149 MMOL/L (136-145)
--- NOTE | 2020-09-22 06:20 | NUR ---
NURSE NOTES: Called and left a message with Dr. Celaya regarding Hgb level of 6.5. Awaiting Dr. Celaya's call back.
[2020-09-22] MEDS: Morphine Sulfate 2mg/ml Inj(IV/IM USE ONLY) IVP PRN (06:53)
--- NOTE | 2020-09-22 07:30 | NUR ---
NURSE HAND-OFF REPORT: Important Events on Shift: Hgb 6.5 Patient Status: stable, full code Diet: Jevity 1.2 55cc/hr Pending Orders: none Pending Results/Labs:none Pending MD notification:n/a Latest Vital Signs: Temperature 97.4 , Pulse 58 , B/P 131 /75 , Respiratory Rate 15 , O2 SAT 100 , Mechanical Ventilator, O2 Flow Rate . Vital Sign Comment: stable EKG Rhythm: Sinus Bradycardia Rhythm change?: N Notified?: James Rocha MD Response: Latest Stevens Fall Score: 55 Fall Risk: High Risk Safety Measures: Call light Within Reach, Bed Alarm Zone 2, Side Rails Side Rails x3, Bed position Low and Locked. Fall Precautions: Yellow Socks Report given to [facility].
--- NOTE | 2020-09-22 07:32 | NUR ---
NURSE NOTES: Received patient from [facility] under the care of Dr. Celaya for the admitting dx of sepsis and increased WBC. Patient is full code, with isolations and safety precautions observed and maintained at all times. patient is Alert and awake, with eyes open and tracking and communicating with gestures. Patient denies pain and discomfort at this time. Will continue to monitor.
--- NOTE | 2020-09-22 07:36 | NUR ---
NURSE NOTES: Dr. Celaya is aware of Hgb 6.5 and Na 149.
[2020-09-22 08:00] VITALS: BP 113/72
--- NOTE | 2020-09-22 08:44 | General Progress Note ---
Subjective ROS Limited/Unobtainable: No Constitutional: Reports: malaise, weakness HEENT: Reports: no symptoms Cardiovascular: Reports: no symptoms Respiratory: Reports: no symptoms Gastrointestinal/Abdominal: Reports: difficulty swallowing Genitourinary: Reports: no symptoms Neurologic/Psychiatric: Reports: pre-existing deficit, seizure Endocrine: Reports: no symptoms Hematologic/Lymphatic: Reports: anemia Allergies: Coded Allergies: ADHESIVE TAPE (Verified Allergy, Unknown, 07/20/20) Uncoded Allergies: TAPE (Allergy, Unknown, 08/07/20) All Systems: reviewed and negative except above Subjective awake and alert. no fever or chills. no sob. tolerating feeds. wbc trending down. h/h noted Objective Last 24 Hour Vital Signs Date Time Temp Pulse Resp B/P (MAP) Pulse Ox O2 Delivery O2 Flow Rate FiO2 09/22/20 08:00 97.0 51 18 113/72 (86) 100 09/22/20 08:00 54 09/22/20 08:00 40 09/22/20 08:00 Mechanical Ventilator 09/22/20 07:00 58 14 40 09/22/20 05:14 58 15 40 09/22/20 04:00 40 09/22/20 04:00 97.4 56 14 131/75 (93) 100 09/22/20 04:00 Mechanical Ventilator 09/22/20 04:00 58 09/22/20 03:52 60 14 40 09/22/20 01:41 65 14 40 09/22/20 00:00 97.0 62 16 115/72 (86) 100 09/22/20 00:00 Mechanical Ventilator 09/22/20 00:00 61 09/21/20 23:44 61 12 40 09/21/20 21:47 60 12 40 09/21/20 20:00 97.2 68 16 119/69 (86) 100 68 09/21/20 20:00 40 09/21/20 20:00 Mechanical Ventilator 09/21/20 19:57 67 15 40 09/21/20 19:37 65 09/21/20 17:03 94 14 40 09/21/20 16:00 Mechanical Ventilator 09/21/20 16:00 40 09/21/20 16:00 62 09/21/20 16:00 98.0 53 13 116/78 (91) 100 09/21/20 15:10 68 12 40 10/22/20 13:09 51 12 40 09/21/20 12:00 51 09/21/20 12:00 97.2 50 12 100/60 (73) 100 09/21/20 12:00 40 09/21/20 12:00 Mechanical Ventilator 09/21/20 11:04 53 12 40 09/21/20 08:55 55 12 40 Intake and Output 09/21/20 09/22/20 19:00 07:00 Intake Total 966.666 ml 2378.333 ml Output Total 600 ml 1200 ml Balance 366.666 ml 1178.333 ml Intake Free Water 180 ml IV Total 666.666 ml 1613.333 ml Tube Feeding 300 ml 585 ml Output Urine Total 600 ml 1200 ml # Bowel Movements 2 1 Laboratory Tests 09/22/20 03:15: White Blood Count 20.3H, Red Blood Count 2.09L, Hemoglobin 6.5*L, Hematocrit 20.2L, Mean Corpuscular Volume 96, Mean Corpuscular Hemoglobin 31.1H, Mean Corpuscular Hemoglobin Concent 32.2, Red Cell Distribution Width 16.3H, Platelet Count 227, Mean Platelet Volume 7.9, Neutrophils (%) (Auto) , Lymphocytes (%) (Auto) , Monocytes (%) (Auto) , Eosinophils (%) (Auto) , Basophils (%) (Auto) , Neutrophils % (Manual) [Pending], Lymphocytes % (Manual) [Pending], Platelet Estimate [Pending], Platelet Morphology [Pending], Sodium Level 149H, Potassium Level 4.1, Chloride Level 118H, Carbon Dioxide Level 23, Anion Gap 8, Blood Urea Nitrogen 44H, Creatinine 0.8, Estimat Glomerular Filtration Rate > 60, Glucose Level 105, Calcium Level 9.0, Total Bilirubin 0.9, Aspartate Amino Transf (AST/SGOT) 87H, Alanine Aminotransferase (ALT/SGPT) 107H, Alkaline Phosphatase 222H, Total Protein 6.4, Albumin 2.6L, Globulin 3.8, Albumin/Globulin Ratio 0.7L Height (Feet): 6 Weight (Pounds): 150 General Appearance: WD/WN, alert EENT: normal ENT inspection Neck: non-tender, normal alignment, supple Cardiovascular: normal peripheral pulses, normal rate, regular rhythm Respiratory/Chest: chest wall non-tender, lungs clear, normal breath sounds, no respiratory distress Abdomen: normal bowel sounds, non tender, soft, no organomegaly Neurologic: oven baker II-XII grossly normal, alert, oriented x 3, responsive Assessment/Plan Problem List: (1) Sickle cell anemia ICD Codes: D57.1 - Sickle-cell disease without crisis SNOMED: 490971892 Qualifiers: Qualified Codes: D57.1 - Sickle-cell disease without crisis (2) Tachycardia ICD Codes: R00.0 - Tachycardia, unspecified SNOMED: 3732919 (3) Severe sepsis ICD Codes: A41.9 - Sepsis, unspecified organism; R65.20 - Severe sepsis without septic shock SNOMED: 64203525 (4) Pneumonia ICD Codes: J18.9 - Pneumonia, unspecified organism SNOMED: 225004619 Status: stable Assessment/Plan: iv abx follow up cultures monitor wbc/hgb Lalo Celaya MD Sep 22, 2020 08:44
--- NOTE | 2020-09-22 09:00 | NUR ---
NURSE NOTES: Patient awake and responsive with gestures. Tolerating vent settings well with no sign of distress or discomfort at time. Tolerating GT feeding well, with 10cc of residuals noted. All due meds given and tolerated well. Will continue to monitor.
[2020-09-22] MEDS: Cefepime HCl 1 GM in D5W 55 ML IVPB SCH ×2 (09:07→20:27)
--- NOTE | 2020-09-22 09:44 | NUR ---
CASE MANAGEMENT: REVIEW 09/22/2020 SI:SEPSIS. PNA. VS: T 97.7 HR 51 RR 18 B/P 113/72 SATS 100% ON MECH VENT FIO2 40 LABS: WBC 20.3 HGB 6.5 HCT 20.2 NA 149 CL 118 BUN 44 AST 87 ALT 107 ALP 222 IS: DEXTROSE/SODIUM IV @ 100 ML/HR CEFEPIME IV Q12H VANCO IV Q12H KEPPRA PO Q12H SDU DCP: [place] [facility]: iv abx follow up cultures monitor wbc/hgb
--- NOTE | 2020-09-22 10:04 | NUR ---
INSURANCE PROGRESS NOTE AND REVIEW FAXED YINA Rojas @ FAX [phone] [facility] # [phone]
--- NOTE | 2020-09-22 10:47 | Infectious Diseases Prog Note ---
Assessment/Plan Assessment/Plan antibiotics : vancomycin iv, cefepime A 1. pneumonia COVID 19 negative 2. leucocytosis improving 3. sickle cell disease 4. respiratory failure 5. intracranial hemorrhage 6. seizures P '1. continue iv vancomycin, cefepime 2. sputum culture 3. will follow up cultures Subjective ROS Limited/Unobtainable: Yes Allergies: Coded Allergies: ADHESIVE TAPE (Verified Allergy, Unknown, 07/20/20) Uncoded Allergies: TAPE (Allergy, Unknown, 08/07/20) Objective Last 24 Hour Vital Signs Date Time Temp Pulse Resp B/P (MAP) Pulse Ox O2 Delivery O2 Flow Rate FiO2 09/22/20 09:00 61 13 40 09/22/20 08:00 97.0 51 18 113/72 (86) 100 09/22/20 08:00 54 09/22/20 08:00 40 09/22/20 08:00 Mechanical Ventilator 09/22/20 07:00 58 14 40 09/22/20 05:14 58 15 40 09/22/20 04:00 40 09/22/20 04:00 97.4 56 14 131/75 (93) 100 09/22/20 04:00 Mechanical Ventilator 09/22/20 04:00 58 09/22/20 03:52 60 14 40 09/22/20 01:41 65 14 40 09/22/20 00:00 97.0 62 16 115/72 (86) 100 09/22/20 00:00 Mechanical Ventilator 09/22/20 00:00 61 09/21/20 23:44 61 12 40 09/21/20 21:47 60 12 40 09/21/20 20:00 97.2 68 16 119/69 (86) 100 68 09/21/20 20:00 40 09/21/20 20:00 Mechanical Ventilator 09/21/20 19:57 67 15 40 09/21/20 19:37 65 09/21/20 17:03 94 14 40 09/21/20 16:00 Mechanical Ventilator 09/21/20 16:00 40 09/21/20 16:00 62 09/21/20 16:00 98.0 53 13 116/78 (91) 100 09/21/20 15:10 68 12 40 09/21/20 13:09 51 12 40 09/21/20 12:00 51 09/21/20 12:00 97.2 50 12 100/60 (73) 100 09/21/20 12:00 40 09/21/20 12:00 Mechanical Ventilator 09/21/20 11:04 53 12 40 Height (Feet): 6 Weight (Pounds): 150 HEENT: status post trach Respiratory/Chest: lungs clear Cardiovascular: normal rate, regular rhythm, no gallop/murmur Abdomen: soft, non tender, other - GT Extremities: no edema, other - left arm PICC Microbiology Date/Time Source Procedure Growth Status 09/20/20 23:00 Nasopharynx SARS-CoV-2 RdRp Gene Assay - Final Complete 09/20/20 23:00 Blood Blood Culture - Preliminary NO GROWTH AFTER 24 HOURS Resulted 09/20/20 22:40 Blood Blood Culture - Preliminary NO GROWTH AFTER 24 HOURS Resulted Laboratory Tests Test 09/22/20 03:15 White Blood Count 20.3 K/UL (4.8-10.8) H Red Blood Count 2.09 M/UL (4.70-6.10) L Hemoglobin 6.5 G/DL (14.2-18.0) *L Hematocrit 20.2 % (42.0-52.0) L Mean Corpuscular Volume 96 FL (80-99) Mean Corpuscular Hemoglobin 31.1 PG (27.0-31.0) H Mean Corpuscular Hemoglobin Concent 32.2 G/DL (32.0-36.0) Red Cell Distribution Width 16.3 % (11.6-14.8) H Platelet Count 227 K/UL (150-450) Mean Platelet Volume 7.9 FL (6.5-10.1) Neutrophils (%) (Auto) % (45.0-75.0) Lymphocytes (%) (Auto) % (20.0-45.0) Monocytes (%) (Auto) % (1.0-10.0) Eosinophils (%) (Auto) % (0.0-3.0) Basophils (%) (Auto) % (0.0-2.0) Differential Total Cells Counted 100 Neutrophils % (Manual) 71 % (45-75) Lymphocytes % (Manual) 14 % (20-45) L Monocytes % (Manual) 5 % (1-10) Eosinophils % (Manual) 10 % (0-3) H Basophils % (Manual) 0 % (0-2) Band Neutrophils 0 % (0-8) Platelet Estimate Adequate Platelet Morphology Normal Hypochromasia 1+ Anisocytosis 1+ Macrocytosis 1+ Sodium Level 149 MMOL/L (136-145) H Potassium Level 4.1 MMOL/L (3.5-5.1) Chloride Level 118 MMOL/L (98-107) H Carbon Dioxide Level 23 MMOL/L (21-32) Anion Gap 8 mmol/L (5-15) Blood Urea Nitrogen 44 mg/dL (7-18) H Creatinine 0.8 MG/DL (0.55-1.30) Estimat Glomerular Filtration Rate > 60 mL/min (>60) Glucose Level 105 MG/DL (74-106) Calcium Level 9.0 MG/DL (8.5-10.1) Total Bilirubin 0.9 MG/DL (0.2-1.0) Aspartate Amino Transf (AST/SGOT) 87 U/L (15-37) H Alanine Aminotransferase (ALT/SGPT) 107 U/L (12-78) H Alkaline Phosphatase 222 U/L (46-116) H Total Protein 6.4 G/DL (6.4-8.2) Albumin 2.6 G/DL (3.4-5.0) L Globulin 3.8 g/dL Albumin/Globulin Ratio 0.7 (1.0-2.7) L Current Medications Medications (Trade) Dose Ordered Sig/Piedad Route PRN Reason Start Time Stop Time Status Last Admin Dose Admin Acetaminophen (Tylenol) 650 mg Q4H PRN GT Temp >100.5 09/21/20 08:45 10/21/20 08:44 Acetaminophen (Tylenol) 650 mg Q4H PRN GT pain scale 1-6 09/21/20 09:30 10/21/20 09:29 09/21/20 21:41 Cefepime HCl 1 gm/ Dextrose 55 ml @ 110 mls/hr EVERY 12 HOURS IVPB 09/21/20 09:00 09/28/20 08:59 09/22/20 09:07 Chlorhexidine Gluconate (Christy-Hex 2%) 1 applic DAILY@2000 TOPIC 09/22/20 20:00 12/21/20 19:59 Dextrose/Sodium Chloride 1,000 ml @ 100 mls/hr Q10H IV 09/21/20 04:00 10/21/20 03:59 09/21/20 23:37 Levetiracetam (Keppra) 750 mg Q12HR ORAL 09/21/20 09:00 10/21/20 08:59 09/22/20 09:03 Morphine Sulfate (Morphine Sulfate) 2 mg Q4H PRN IVP Severe Pain (Pain Scale 7-10) 09/21/20 09:30 09/28/20 09:29 09/22/20 06:53 Vancomycin HCl (Vanco pharmacy to dose) 1 ea DAILY PRN MISC Per rx protocol 09/21/20 03:30 10/21/20 03:29 Vancomycin/Sodium Chloride 275 ml @ 183.333 mls/hr Q12H IVPB 09/21/20 11:00 09/26/20 10:59 09/21/20 23:30 Isabelle Degroot MD Sep 22, 2020 10:47
--- NOTE | 2020-09-22 10:50 | NUR ---
NURSE NOTES: Seen and examined by Dr. Degroot with new orders noted and carried out.
[2020-09-22] MEDS: D5 1/2NS 1,000 ML IV SCH ×2 (11:04→20:26)
[2020-09-22] MEDS: Vancomycin 1.25gm/NS Premix IVPB SCH (11:05)
--- NOTE | 2020-09-22 11:31 | Surgery Progress Note ---
Surgery Progress Note Subjective Additional Comments labs improving h/h noted stable comfortable wants more pain meds no n/v Objective Last 24 Hour Vital Signs Date Time Temp Pulse Resp B/P (MAP) Pulse Ox O2 Delivery O2 Flow Rate FiO2 09/22/20 11:19 70 14 40 09/22/20 09:00 61 13 40 09/22/20 08:00 97.0 51 18 113/72 (86) 100 09/22/20 08:00 54 09/22/20 08:00 40 09/22/20 08:00 Mechanical Ventilator 09/22/20 07:00 58 14 40 09/22/20 05:14 58 15 40 09/22/20 04:00 40 09/22/20 04:00 97.4 56 14 131/75 (93) 100 09/22/20 04:00 Mechanical Ventilator 09/22/20 04:00 58 09/22/20 03:52 60 14 40 09/22/20 01:41 65 14 40 09/22/20 00:00 97.0 62 16 115/72 (86) 100 09/22/20 00:00 Mechanical Ventilator 09/22/20 00:00 61 09/21/20 23:44 61 12 40 09/21/20 21:47 60 12 40 09/21/20 20:00 97.2 68 16 119/69 (86) 100 68 09/21/20 20:00 40 09/21/20 20:00 Mechanical Ventilator 09/21/20 19:57 67 15 40 09/21/20 19:37 65 09/21/20 17:03 94 14 40 09/21/20 16:00 Mechanical Ventilator 09/21/20 16:00 40 09/21/20 16:00 62 09/21/20 16:00 98.0 53 13 116/78 (91) 100 09/21/20 15:10 68 12 40 09/21/20 13:09 51 12 40 09/21/20 12:00 51 09/21/20 12:00 97.2 50 12 100/60 (73) 100 09/21/20 12:00 40 09/21/20 12:00 Mechanical Ventilator I&O Intake and Output 09/21/20 09/22/20 19:00 07:00 Intake Total 966.666 ml 2378.333 ml Output Total 600 ml 1200 ml Balance 366.666 ml 1178.333 ml Intake Free Water 180 ml IV Total 666.666 ml 1613.333 ml Tube Feeding 300 ml 585 ml Output Urine Total 600 ml 1200 ml # Bowel Movements 2 1 Dressing: saturated Cardiovascular: RSR Respiratory: decreased breath sounds Abdomen: soft, non-tender, present bowel sounds Extremities: no edema, no tenderness, no cyanosis Laboratory Tests Test 09/22/20 03:15 White Blood Count 20.3 K/UL (4.8-10.8) H Red Blood Count 2.09 M/UL (4.70-6.10) L Hemoglobin 6.5 G/DL (14.2-18.0) *L Hematocrit 20.2 % (42.0-52.0) L Mean Corpuscular Volume 96 FL (80-99) Mean Corpuscular Hemoglobin 31.1 PG (27.0-31.0) H Mean Corpuscular Hemoglobin Concent 32.2 G/DL (32.0-36.0) Red Cell Distribution Width 16.3 % (11.6-14.8) H Platelet Count 227 K/UL (150-450) Mean Platelet Volume 7.9 FL (6.5-10.1) Neutrophils (%) (Auto) % (45.0-75.0) Lymphocytes (%) (Auto) % (20.0-45.0) Monocytes (%) (Auto) % (1.0-10.0) Eosinophils (%) (Auto) % (0.0-3.0) Basophils (%) (Auto) % (0.0-2.0) Differential Total Cells Counted 100 Neutrophils % (Manual) 71 % (45-75) Lymphocytes % (Manual) 14 % (20-45) L Monocytes % (Manual) 5 % (1-10) Eosinophils % (Manual) 10 % (0-3) H Basophils % (Manual) 0 % (0-2) Band Neutrophils 0 % (0-8) Platelet Estimate Adequate Platelet Morphology Normal Hypochromasia 1+ Anisocytosis 1+ Macrocytosis 1+ Sodium Level 149 MMOL/L (136-145) H Potassium Level 4.1 MMOL/L (3.5-5.1) Chloride Level 118 MMOL/L (98-107) H Carbon Dioxide Level 23 MMOL/L (21-32) Anion Gap 8 mmol/L (5-15) Blood Urea Nitrogen 44 mg/dL (7-18) H Creatinine 0.8 MG/DL (0.55-1.30) Estimat Glomerular Filtration Rate > 60 mL/min (>60) Glucose Level 105 MG/DL (74-106) Calcium Level 9.0 MG/DL (8.5-10.1) Total Bilirubin 0.9 MG/DL (0.2-1.0) Aspartate Amino Transf (AST/SGOT) 87 U/L (15-37) H Alanine Aminotransferase (ALT/SGPT) 107 U/L (12-78) H Alkaline Phosphatase 222 U/L (46-116) H Total Protein 6.4 G/DL (6.4-8.2) Albumin 2.6 G/DL (3.4-5.0) L Globulin 3.8 g/dL Albumin/Globulin Ratio 0.7 (1.0-2.7) L Plan Problems: (1) Sickle cell anemia (2) Sickle cell crisis (3) Tachycardia (4) Sepsis Assessment & Plan: 35-year-old male sickle cell multiple comorbidities history of craniotomy trach feeding tube prior port infected removed see prior admission and consult and operative notes. Currently presents with significant leukocytosis fevers hypotension in intensive care unit wound site evaluated unlikely etiology. Trach evaluated may consider changing. LFTs noted elevated. Ultrasound ordered pending results trend labs continue IV antibiotics appreciate infectious disease input will follow with recommendations thank you for let me participate in patient's care KUB and US noted labs reviewed transfuse prbc prn trach change peg changed line out picc placed persistent wbc h/h noted anemia ss better since new trach Shiley [address] secretions manageable Trach replaced at bedside 925 for malpositioning it was identified he does have a false track as well. Will ensure trach is in correct positioning daily every shift trach not stable removed and intubated 08/25 on ett vent will need trach revision discussed with mother and medical teams trach and picc s/p trach revision 6 f dxlt last admission trach stable vent stable wbc persistent again pulmonary arteries: Evaluation for pulmonary embolus is limited due to breathing motion artifact. No central pulmonary emboli are identified. Aorta: No acute findings. No thoracic aortic aneurysm. Lungs: There are moderately consolidating infiltrates identified in both lower lobes dependently with mild additional patchy infiltrates dependently in both upper lobes. The findings are consistent with bilateral nonspecific pneumonia. Aspiration pneumonia could give this appearance. The infiltrates are only somewhat typical of Covid 19. Confidence is immediate. Pleural space: Unremarkable. No significant effusion. No pneumothorax. Heart: Unremarkable. No cardiomegaly. No significant pericardial effusion. No evidence of RV dysfunction. Bones/joints: No acute fracture. No dislocation. Soft tissues: Unremarkable. Lymph nodes: Unremarkable. No enlarged lymph nodes. Tubes, lines and devices: There is a tracheostomy tube in good position. IMPRESSION: 1. There are moderately consolidating infiltrates identified in both lower lobes dependently with mild additional patchy infiltrates dependently in both upper lobes. The findings are consistent with bilateral nonspecific pneumonia. Aspiration pneumonia could give this appearance. The infiltrates are only somewhat typical of Covid 19. Confidence is immediate. 2. Evaluation for pulmonary embolus is limited due to breathing motion artifact. No central pulmonary emboli are identified. The liver is homogeneous. We cannot identify a normal spleen. There is dense crescentic calcification in the left upper quadrant at the expected location of the spleen. Gallbladder is absent. The pancreas is unremarkable. Adrenals are normal in morphology. There is a small punctate cortical calcification left kidney. No hydronephrosis bilaterally There is a G-tube in place. Gas-filled bowel loops identified throughout the abdomen and pelvis. No discrete transition point or obstruction. Appendix partially visualized. There is some free fluid in the pelvis. There is no free air. There is a mildly prominent lymph nodes noted in the upper to mid retroperitoneum noted of undetermined etiology or significance. Rivera catheter noted in the bladder. The reservoir for the penile prosthesis is identified in the left lower pelvis. There is a right femoral venous catheter in place. Diffuse sclerosis of the bony pelvis and hips noted of undetermined etiology. IMPRESSION: BILATERAL LOWER LOBE PNEUMONIAS. ALSO SOME HAZY INFILTRATES IN THE UPPER LOBES. A NORMAL SPLEEN IS NOT VISUALIZED. THERE IS A DENSE CRESCENTIC CALCIFICATION LEFT UPPER QUADRANT AT THE EXPECTED LOCATION OF THE SPLEEN. 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 PUNCTATE CORTICAL CALCIFICATION LEFT KIDNEY. NO HYDRONEPHROSIS. PROMINENT LYMPH NODES IN THE UPPER TO MID RETROPERITONEUM OF UNDETERMINED ETIOLOGY OR SIGNIFICANCE. G-TUBE, RIVERA CATHETER, RIGHT FEMORAL CATHETER AND PENILE PROSTHESIS NOTED IN PLACE. MILD DIFFUSE SCLEROSIS OF THE BONY PELVIS AND BOTH HIPS OF UNDETERMINED ETIOLOGY. QUESTION HISTORY OF RENAL OSTEODYSTROPHY. There is a large craniectomy defect in the right frontal temporal region. Diffuse age-related volume loss demonstrated. 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 No definite acute infarct seen. There is no hemorrhage, mass effect or shift. Ventricles and cisterns as well as brainstem and posterior fossa appear unremarkable. The sellar region is normal. Sinuses, mastoid air cells and bony calvarium appear intact. IMPRESSION: Large right frontotemporal craniectomy defect. 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 No definite acute intracranial abnormality. (5) Pneumonia (6) Severe sepsis (7) Port-A-Cath in place (8) Acute prerenal azotemia (9) Status post craniectomy (10) Decubitus skin ulcer Assessment & Plan: SACRUM- STAGE II PRESSURE ULCER MEASURING 1.5X0.5X0.2CM. WOUND BED PINK WITH MINIMAL SERO-SANGUINEOUS DRAINAGE. RECOMMEND-CLEAN WITH SALINE. PAT DRY. APPLY CALAZINE AND COVER WITH OPTIFOAM NELL SSING. REPLACE DAILY. LEFT HEEL- STAGE I PRESSURE ULCER. 4X4X0.1CM NON-BLANCHABLE ERYTHEMA NOTED. RECOMMEND-APPLY SKIN CAVILON BARRIER AND COVER WITH OPTIFOAM DRESSING. REPLACE EVERY 3 DAYS. CONTINUE WOUND PREVENTION PROTOCOLS. REPOSITION AT LEAST EVERY 2 HOURS OR TOLERATED OFF-LOAD HEELS WITH PILLOWS Harman Zhao Sep 22, 2020 11:31
[2020-09-22 12:00] VITALS: BP 121/71
--- NOTE | 2020-09-22 13:00 | NUR ---
NURSE NOTES: Patient awake and noted to be watching TV in good mood. Patient in cooperative mood. FLACC score noted 0/10. No signs of acute distress or discomfort noted. Will continue to monitor.
--- NOTE | 2020-09-22 15:00 | NUR ---
NURSE NOTES: Patient awake and playing with his cellphone. Noted FLACC score 0/10. No sign of discomfort or distress at this time. Denies pain at this time. Will continue with current plan of care.
[2020-09-22 16:00] VITALS: BP 116/71
--- NOTE | 2020-09-22 19:00 | NUR ---
NURSE NOTES: Received report from ARLYN East. Pt is asleep, not in distress, no grimacing. Tolerating vent setting of AC12 TV500 FiO2 40% PEEP5 and saturating 100%. Sinus Rythm on the client portfolio manager. Tolerating GT feeding of Jevity 1.2 @ 55cc/hr. PICC line in L upper arm is patent and intact, pending culture result. IVF is D5 0.45%NS @ 100cc/hr. Overton catheter is patent and intact draining yellowish urine. Bed is locked and in lowest position, bed alarm on, call light within reach. HOB elevated at all times. Will continue to monitor pt. Will continue with the plan of care.
--- NOTE | 2020-09-22 19:02 | NUR ---
NURSE HAND-OFF REPORT: Important Events on Shift: - Patient Status: Stable Diet: GT feeding Pending Orders: Pending Results/Labs:Blood and sputum culture Pending MD notification: Latest Vital Signs: Temperature 97.5 , Pulse 71 , B/P 116 /71 , Respiratory Rate 12 , O2 SAT 100 , Mechanical Ventilator, O2 Flow Rate . Vital Sign Comment: EKG Rhythm: Sinus Bradycardia Rhythm change?: N MD Notified?: N Josefina JIMENEZ Response: Latest Stevens Fall Score: 55 Fall Risk: High Risk Safety Measures: Call light Within Reach, Bed Alarm Zone 2, Side Rails Side Rails x3, Bed position Low and Locked. Fall Precautions: Yellow Socks Report given to ARLYN Mccormick..
[2020-09-22 20:00] VITALS: BP 125/77
[2020-09-22] MEDS: Dyna-Hex 2% Top Sol 2oz TOPIC SCH (20:26)
[2020-09-22] MEDS: Acetaminophen 650mg/20.3ml GT PRN (20:30)
[2020-09-23] VITALS: BP 124/68
--- NOTE | 2020-09-23 | NUR ---
NURSE NOTES: Pt given complete bed bath, linens changed. Pt had a large bowel movement. Turned and repositioned. Pt reported pain in the back. HR increased to 130s. Pt was given pain meds. Will continue to monitor pt. Will continue with the plan of care.
[2020-09-23] MEDS: Morphine Sulfate 2mg/ml Inj(IV/IM USE ONLY) IVP PRN ×5 (00:08→20:34)
--- NOTE | 2020-09-23 00:17 | NUR ---
NURSE NOTES: Noted pt T of 92 and lissa hugger applied. Noted sings of pain FLACC of 8. Morphine 2 mg was taken out from pyxis but broken when aspirated in syringe, and saved to show pharmacy in the morning. Another morphine taken out and given. Will continue to monitor.
--- NOTE | 2020-09-23 02:00 | NUR ---
NURSE NOTES: Noted pt temperature of 100, Jeniffer hugger removed, HR of 130s noted, ST, pt asymptomatic. Will continue to monitor.
[2020-09-23 04:00] VITALS: BP 109/64
[2020-09-23] MEDS: Acetaminophen 650mg/20.3ml GT PRN ×3 (04:23→16:20)
[2020-09-23] MEDS: D5 1/2NS 1,000 ML IV SCH ×2 (05:42→15:38)
--- NOTE | 2020-09-23 07:00 | NUR ---
NURSE HAND-OFF REPORT: Important Events on Shift: HR inc to 140s, Pt complained of pain, prn given Patient Status: stable, sinus tachy, full code Diet: Jevity 1.2 @ 55cc/hr Pending Orders: none Pending Results/Labs:none Pending MD notification: none Latest Vital Signs: Temperature 98.2 , Pulse 123 , B/P 109 /64 , Respiratory Rate 16 , O2 SAT 100 , Mechanical Ventilator, O2 Flow Rate . Vital Sign Comment: stable EKG Rhythm: Sinus Tachycardia Rhythm change?: N Notified?: N -Belia JIMENEZ Response: Latest Stevens Fall Score: 55 Fall Risk: High Risk Safety Measures: Call light Within Reach, Bed Alarm Zone 2, Side Rails Side Rails x3, Bed position Low and Locked. Fall Precautions: Yellow Socks Report given to ARLYN East.
--- NOTE | 2020-09-23 07:03 | NUR ---
NURSE NOTES: Received patient from ARLYN Mccormick under the care of Dr. Celaya for the admitting dx of sepsis and increased WBC. Patient is full code, with isolations and safety precautions observed and maintained at all times. patient is Alert and awake, with eyes open and tracking and communicating with gestures. Patient denies pain and discomfort at this time. Noted with slight elevated HR. Will continue to monitor.
[2020-09-23 08:00] VITALS: BP 114/68
[2020-09-23] MEDS: Cefepime HCl 1 GM in D5W 55 ML IVPB SCH ×2 (08:21→20:35)
--- NOTE | 2020-09-23 09:00 | NUR ---
NURSE NOTES: Patient c/o pain on his back, non-pharmacological interventions provided but were ineffective. PRN pain medication provided. Noted Flacc score of 1/10 30 mins post pain medication administration. Patient is sleeping. Seen and examined by Dr. Celaya with new orders noted and carried out. Will continue to monitor.
[2020-09-23 10:56] LABS: HEMATOCRIT 20.5 % (42.0-52.0); MEAN CORPUSCULAR VOLUME 98 FL (80-99); PLATELET COUNT 233 K/UL (150-450); RED BLOOD COUNT 2.08 M/UL (4.70-6.10); RED CELL DISTRIBUTION WIDTH 16.4 % (11.6-14.8)
[2020-09-23 11:01] LABS: HEMOGLOBIN 6.5 G/DL (14.2-18.0); WHITE BLOOD COUNT 22.9 K/UL (4.8-10.8)
--- NOTE | 2020-09-23 11:10 | NUR ---
NURSE NOTES: MD made aware of critical lab results, with NNO at this time. Patient remains afebrile, FLACC score of 0/10. No sign of apparent distress noted. Continues to be asleep and resting comfortably. Will Continue with current plan of care.
[2020-09-23 11:15] LABS: ANION GAP 8 mmol/L (5-15); BLOOD UREA NITROGEN 30 mg/dL (7-18); CARBON DIOXIDE 20 MMOL/L (21-32); CHLORIDE 112 MMOL/L (98-107); POTASSIUM 3.6 MMOL/L (3.5-5.1); SODIUM 140 MMOL/L (136-145)
--- NOTE | 2020-09-23 11:44 | NUR ---
CASE MANAGEMENT:REVIEW 09/23/20 SI: SICKLE CELL ANEMIA. SEPSIS. PNA 98.2 142 20 100% ON VENT SUPPORT W/40% FIO2 WBC+22.9 H/H-6.5/20.5 GLUCOSE+435 IS: IV CEFEPIME Q12 IVF@100/HR IV MORPHINE Q4HRS PRN : STEP DOWN UNIT DCP: FROM [facility]
[2020-09-23 12:00] VITALS: BP 140/76
--- NOTE | 2020-09-23 12:50 | Infectious Diseases Prog Note ---
Assessment/Plan Assessment/Plan A: 1. pneumonia COVID 19 negative 2. Leucocytosis improving 3. Sickle cell disease 4. Ventilator dependent respiratory failure 5. History of intracranial hemorrhage 6. seizures P '1. continue iv vancomycin, cefepime 2. will follow up cultures Subjective ROS Limited/Unobtainable: Yes Constitutional: Denies: fever Allergies: Coded Allergies: ADHESIVE TAPE (Verified Allergy, Unknown, 07/20/20) Uncoded Allergies: TAPE (Allergy, Unknown, 08/07/20) Objective Last 24 Hour Vital Signs Date Time Temp Pulse Resp B/P (MAP) Pulse Ox O2 Delivery O2 Flow Rate FiO2 09/23/20 12:32 103 09/23/20 11:27 97 16 40 09/23/20 09:48 100 16 40 09/23/20 08:40 102 09/23/20 08:00 40 09/23/20 08:00 Mechanical Ventilator 09/23/20 08:00 98.2 104 15 114/68 (83) 100 09/23/20 07:26 101 17 40 09/23/20 05:00 123 16 40 09/23/20 04:00 Mechanical Ventilator 09/23/20 04:00 98.2 125 20 109/64 (79) 100 09/23/20 04:00 142 09/23/20 04:00 40 09/23/20 03:14 144 19 40 09/23/20 00:48 121 16 40 09/23/20 00:00 Mechanical Ventilator 09/23/20 00:00 128 09/23/20 00:00 98.1 133 20 124/68 (86) 100 09/22/20 23:24 132 09/22/20 23:12 99 14 40 09/22/20 20:44 83 15 40 09/22/20 20:00 Mechanical Ventilator 09/22/20 20:00 98.1 88 18 125/77 (93) 100 09/22/20 20:00 40 09/22/20 20:00 79 09/22/20 18:51 71 12 40 09/22/20 17:00 66 14 40 09/22/20 16:00 97.5 66 18 116/71 (86) 100 09/22/20 16:00 40 09/22/20 16:00 62 09/22/20 16:00 Mechanical Ventilator 09/22/20 15:00 63 14 40 09/22/20 13:00 72 16 40 Height (Feet): 6 Weight (Pounds): 150 HEENT: status post trach, other - R craniotomy Respiratory/Chest: lungs clear, other - on ventilator Cardiovascular: tachycardia, other - PICC line Extremities: no edema Neurologic/Psychiatric: other - sleeping Musculoskeletal: atrophy Microbiology Date/Time Source Procedure Growth Status 09/21/20 13:30 Blood Blood Culture - Preliminary NO GROWTH AFTER 24 HOURS Resulted 09/20/20 23:00 Nasopharynx SARS-CoV-2 RdRp Gene Assay - Final Complete 09/20/20 23:00 Blood Blood Culture - Preliminary NO GROWTH AFTER 48 HOURS Resulted 09/20/20 22:40 Blood Blood Culture - Preliminary NO GROWTH AFTER 48 HOURS Resulted Laboratory Tests Test 09/23/20 04:00 09/23/20 10:00 Random Vancomycin Level 31.0 ug/mL White Blood Count 22.9 K/UL (4.8-10.8) *H Red Blood Count 2.08 M/UL (4.70-6.10) L Hemoglobin 6.5 G/DL (14.2-18.0) *L Hematocrit 20.5 % (42.0-52.0) L Mean Corpuscular Volume 98 FL (80-99) Mean Corpuscular Hemoglobin 31.2 PG (27.0-31.0) H Mean Corpuscular Hemoglobin Concent 31.8 G/DL (32.0-36.0) L Red Cell Distribution Width 16.4 % (11.6-14.8) H Platelet Count 233 K/UL (150-450) Mean Platelet Volume 7.9 FL (6.5-10.1) Neutrophils (%) (Auto) % (45.0-75.0) Lymphocytes (%) (Auto) % (20.0-45.0) Monocytes (%) (Auto) % (1.0-10.0) Eosinophils (%) (Auto) % (0.0-3.0) Basophils (%) (Auto) % (0.0-2.0) Differential Total Cells Counted 100 Neutrophils % (Manual) 84 % (45-75) H Lymphocytes % (Manual) 9 % (20-45) L Monocytes % (Manual) 4 % (1-10) Eosinophils % (Manual) 3 % (0-3) Basophils % (Manual) 0 % (0-2) Band Neutrophils 0 % (0-8) Platelet Estimate Adequate Platelet Morphology Normal Hypochromasia 1+ Anisocytosis 1+ Macrocytosis 1+ Sodium Level 140 MMOL/L (136-145) Potassium Level 3.6 MMOL/L (3.5-5.1) Chloride Level 112 MMOL/L (98-107) H Carbon Dioxide Level 20 MMOL/L (21-32) L Anion Gap 8 mmol/L (5-15) Blood Urea Nitrogen 30 mg/dL (7-18) H Creatinine 1.0 MG/DL (0.55-1.30) Estimat Glomerular Filtration Rate > 60 mL/min (>60) Glucose Level 435 MG/DL (74-106) #H Calcium Level 8.0 MG/DL (8.5-10.1) L Current Medications Medications (Trade) Dose Ordered Sig/Piedad Route PRN Reason Start Time Stop Time Status Last Admin Dose Admin Acetaminophen (Tylenol) 650 mg Q4H PRN GT Temp >100.5 09/21/20 08:45 10/21/20 08:44 Acetaminophen (Tylenol) 650 mg Q4H PRN GT pain scale 1-6 09/21/20 09:30 10/21/20 09:29 09/23/20 08:27 Cefepime HCl 1 gm/ Dextrose 55 ml @ 110 mls/hr EVERY 12 HOURS IVPB 09/21/20 09:00 09/28/20 08:59 09/23/20 08:21 Chlorhexidine Gluconate (Christy-Hex 2%) 1 applic DAILY@2000 TOPIC 09/22/20 20:00 12/21/20 19:59 09/22/20 20:26 Dextrose/Sodium Chloride 1,000 ml @ 100 mls/hr Q10H IV 09/21/20 04:00 10/21/20 03:59 09/23/20 05:42 Levetiracetam (Keppra) 750 mg Q12HR ORAL 09/21/20 09:00 10/21/20 08:59 09/23/20 08:22 Morphine Sulfate (Morphine Sulfate) 2 mg Q4H PRN IVP Severe Pain (Pain Scale 7-10) 09/21/20 09:30 09/28/20 09:29 09/23/20 04:32 Vancomycin HCl ([facility] pharmacy to dose) 1 ea DAILY PRN MISC Per rx protocol 09/21/20 03:30 10/21/20 03:29 Wyatt Kemp MD Sep 23, 2020 12:50
--- NOTE | 2020-09-23 12:50 | General Progress Note ---
Subjective ROS Limited/Unobtainable: No Constitutional: Reports: malaise, weakness HEENT: Reports: no symptoms Cardiovascular: Reports: no symptoms Respiratory: Reports: shortness of breath Gastrointestinal/Abdominal: Reports: difficulty swallowing Genitourinary: Reports: no symptoms Neurologic/Psychiatric: Reports: no symptoms Endocrine: Reports: no symptoms Hematologic/Lymphatic: Reports: anemia Allergies: Coded Allergies: ADHESIVE TAPE (Verified Allergy, Unknown, 07/20/20) Uncoded Allergies: TAPE (Allergy, Unknown, 08/07/20) All Systems: reviewed and negative except above Subjective no events. stable on the vent. no fever or chills. cultures negative so far. on iv abx. Objective Last 24 Hour Vital Signs Date Time Temp Pulse Resp B/P (MAP) Pulse Ox O2 Delivery O2 Flow Rate FiO2 09/23/20 12:32 103 09/23/20 11:27 97 16 40 09/23/20 09:48 100 16 40 09/23/20 08:40 102 09/23/20 08:00 40 09/23/20 08:00 Mechanical Ventilator 09/23/20 08:00 98.2 104 15 114/68 (83) 100 09/23/20 07:26 101 17 40 09/23/20 05:00 123 16 40 09/23/20 04:00 Mechanical Ventilator 09/23/20 04:00 98.2 125 20 109/64 (79) 100 09/23/20 04:00 142 09/23/20 04:00 40 09/23/20 03:14 144 19 40 09/23/20 00:48 121 16 40 09/23/20 00:00 Mechanical Ventilator 09/23/20 00:00 128 09/23/20 00:00 98.1 133 20 124/68 (86) 100 09/22/20 23:24 132 09/22/20 23:12 99 14 40 09/22/20 20:44 83 15 40 09/22/20 20:00 Mechanical Ventilator 09/22/20 20:00 98.1 88 18 125/77 (93) 100 09/22/20 20:00 40 09/22/20 20:00 79 09/22/20 18:51 71 12 40 09/22/20 17:00 66 14 40 09/22/20 16:00 97.5 66 18 116/71 (86) 100 09/22/20 16:00 40 09/22/20 16:00 62 09/22/20 16:00 Mechanical Ventilator 09/22/20 15:00 63 14 40 09/22/20 13:00 72 16 40 Intake and Output 09/22/20 09/23/20 19:00 07:00 Intake Total 1040 ml 1805 ml Output Total 1350 ml 1000 ml Balance -310 ml 805 ml Intake Free Water 280 ml 200 ml IV Total 100 ml 1055 ml Tube Feeding 660 ml 550 ml Output Urine Total 1350 ml 1000 ml # Bowel Movements 2 Laboratory Tests 09/23/20 04:00: Random Vancomycin Level 31.0 09/23/20 10:00: White Blood Count 22.9*H, Red Blood Count 2.08L, Hemoglobin 6.5*L, Hematocrit 20.5L, Mean Corpuscular Volume 98, Mean Corpuscular Hemoglobin 31.2H, Mean Corpuscular Hemoglobin Concent 31.8L, Red Cell Distribution Width 16.4H, Platelet Count 233, Mean Platelet Volume 7.9, Neutrophils (%) (Auto) , Lymphocytes (%) (Auto) , Monocytes (%) (Auto) , Eosinophils (%) (Auto) , Basophils (%) (Auto) , Differential Total Cells Counted 100, Neutrophils % (Manual) 84H, Lymphocytes % (Manual) 9L, Monocytes % (Manual) 4, Eosinophils % (Manual) 3, Basophils % (Manual) 0, Band Neutrophils 0, Platelet Estimate Adequate, Platelet Morphology Normal, Hypochromasia 1+, Anisocytosis 1+, Macrocytosis 1+, Sodium Level 140, Potassium Level 3.6, Chloride Level 112H, Carbon Dioxide Level 20L, Anion Gap 8, Blood Urea Nitrogen 30H, Creatinine 1.0, Estimat Glomerular Filtration Rate > 60, Glucose Level 435#H, Calcium Level 8.0L Height (Feet): 6 Weight (Pounds): 150 Objective General Appearance: WD/WN, alert EENT: normal ENT inspection Neck: non-tender, normal alignment, supple Cardiovascular: normal peripheral pulses, normal rate, regular rhythm Respiratory/Chest: chest wall non-tender, lungs clear, normal breath sounds, no respiratory distress Abdomen: normal bowel sounds, non tender, soft, no organomegaly 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, alert, oriented x 3, responsive Assessment/Plan Problem List: (1) Sickle cell anemia ICD Codes: D57.1 - Sickle-cell disease without crisis SNOMED: 676735776 Qualifiers: Qualified Codes: D57.1 - Sickle-cell disease without crisis (2) Tachycardia ICD Codes: R00.0 - Tachycardia, unspecified SNOMED: 6559048 (3) Severe sepsis ICD Codes: A41.9 - Sepsis, unspecified organism; R65.20 - Severe sepsis without septic shock SNOMED: 31649692 (4) Pneumonia ICD Codes: J18.9 - Pneumonia, unspecified organism SNOMED: 730712579 Status: stable Assessment/Plan: iv abx follow up cultures monitor wbc/hgb wean as able d/w mother x 5 mins Lalo Celaya MD Sep 23, 2020 12:50
--- NOTE | 2020-09-23 14:08 | Surgery Progress Note ---
Surgery Progress Note Subjective Additional Comments leukocytosis anemia rectal tube being placed comfortable on vent Objective Last 24 Hour Vital Signs Date Time Temp Pulse Resp B/P (MAP) Pulse Ox O2 Delivery O2 Flow Rate FiO2 09/23/20 12:32 103 09/23/20 12:00 Mechanical Ventilator 09/23/20 12:00 97.9 140 22 140/76 (97) 100 09/23/20 12:00 40 09/23/20 11:27 97 16 40 09/23/20 09:48 100 16 40 09/23/20 08:40 102 09/23/20 08:00 40 09/23/20 08:00 Mechanical Ventilator 09/23/20 08:00 98.2 104 15 114/68 (83) 100 09/23/20 07:26 101 17 40 09/23/20 05:00 123 16 40 09/23/20 04:00 Mechanical Ventilator 09/23/20 04:00 98.2 125 20 109/64 (79) 100 09/23/20 04:00 142 09/23/20 04:00 40 09/23/20 03:14 144 19 40 09/23/20 00:48 121 16 40 09/23/20 00:00 Mechanical Ventilator 09/23/20 00:00 128 09/23/20 00:00 98.1 133 20 124/68 (86) 100 09/22/20 23:24 132 09/22/20 23:12 99 14 40 09/22/20 20:44 83 15 40 09/22/20 20:00 Mechanical Ventilator 09/22/20 20:00 98.1 88 18 125/77 (93) 100 09/22/20 20:00 40 09/22/20 20:00 79 09/22/20 18:51 71 12 40 09/22/20 17:00 66 14 40 09/22/20 16:00 97.5 66 18 116/71 (86) 100 09/22/20 16:00 40 09/22/20 16:00 62 09/22/20 16:00 Mechanical Ventilator 09/22/20 15:00 63 14 40 I&O Intake and Output 09/22/20 09/23/20 19:00 07:00 Intake Total 1040 ml 1805 ml Output Total 1350 ml 1000 ml Balance -310 ml 805 ml Intake Free Water 280 ml 200 ml IV Total 100 ml 1055 ml Tube Feeding 660 ml 550 ml Output Urine Total 1350 ml 1000 ml # Bowel Movements 2 Dressing: saturated Cardiovascular: RSR Respiratory: decreased breath sounds Abdomen: soft, non-tender, present bowel sounds Extremities: no edema, no tenderness, no cyanosis Laboratory Tests Test 09/23/20 04:00 09/23/20 10:00 Random Vancomycin Level 31.0 ug/mL White Blood Count 22.9 K/UL (4.8-10.8) *H Red Blood Count 2.08 M/UL (4.70-6.10) L Hemoglobin 6.5 G/DL (14.2-18.0) *L Hematocrit 20.5 % (42.0-52.0) L Mean Corpuscular Volume 98 FL (80-99) Mean Corpuscular Hemoglobin 31.2 PG (27.0-31.0) H Mean Corpuscular Hemoglobin Concent 31.8 G/DL (32.0-36.0) L Red Cell Distribution Width 16.4 % (11.6-14.8) H Platelet Count 233 K/UL (150-450) Mean Platelet Volume 7.9 FL (6.5-10.1) Neutrophils (%) (Auto) % (45.0-75.0) Lymphocytes (%) (Auto) % (20.0-45.0) Monocytes (%) (Auto) % (1.0-10.0) Eosinophils (%) (Auto) % (0.0-3.0) Basophils (%) (Auto) % (0.0-2.0) Differential Total Cells Counted 100 Neutrophils % (Manual) 84 % (45-75) H Lymphocytes % (Manual) 9 % (20-45) L Monocytes % (Manual) 4 % (1-10) Eosinophils % (Manual) 3 % (0-3) Basophils % (Manual) 0 % (0-2) Band Neutrophils 0 % (0-8) Platelet Estimate Adequate Platelet Morphology Normal Hypochromasia 1+ Anisocytosis 1+ Macrocytosis 1+ Sodium Level 140 MMOL/L (136-145) Potassium Level 3.6 MMOL/L (3.5-5.1) Chloride Level 112 MMOL/L (98-107) H Carbon Dioxide Level 20 MMOL/L (21-32) L Anion Gap 8 mmol/L (5-15) Blood Urea Nitrogen 30 mg/dL (7-18) H Creatinine 1.0 MG/DL (0.55-1.30) Estimat Glomerular Filtration Rate > 60 mL/min (>60) Glucose Level 435 MG/DL (74-106) #H Calcium Level 8.0 MG/DL (8.5-10.1) L Plan Problems: (1) Sickle cell anemia (2) Sickle cell crisis (3) Tachycardia (4) Sepsis Assessment & Plan: 35-year-old male sickle cell multiple comorbidities history of craniotomy trach feeding tube prior port infected removed see prior admission and consult and operative notes. Currently presents with significant leukocytosis fevers hypotension in intensive care unit wound site evaluated unlikely etiology. Trach evaluated may consider changing. LFTs noted elevated. Ultrasound ordered pending results trend labs continue IV antibiotics appreciate infectious disease input will follow with recommendations thank you for let me participate in patient's care KUB and US noted labs reviewed transfuse prbc prn trach change peg changed line out picc placed persistent wbc h/h noted anemia ss better since new trach Shiley [address] secretions manageable Trach replaced at bedside 925 for malpositioning it was identified he does have a false track as well. Will ensure trach is in correct positioning daily every shift trach not stable removed and intubated 08/25 on ett vent will need trach revision discussed with mother and medical teams trach and picc s/p trach revision 6 f dxlt last admission trach stable vent stable wbc persistent again pulmonary arteries: Evaluation for pulmonary embolus is limited due to breathing motion artifact. No central pulmonary emboli are identified. Aorta: No acute findings. No thoracic aortic aneurysm. Lungs: There are moderately consolidating infiltrates identified in both lower lobes dependently with mild additional patchy infiltrates dependently in both upper lobes. The findings are consistent with bilateral nonspecific pneumonia. Aspiration pneumonia could give this appearance. The infiltrates are only somewhat typical of Covid 19. Confidence is immediate. Pleural space: Unremarkable. No significant effusion. No pneumothorax. Heart: Unremarkable. No cardiomegaly. No significant pericardial effusion. No evidence of RV dysfunction. Bones/joints: No acute fracture. No dislocation. Soft tissues: Unremarkable. Lymph nodes: Unremarkable. No enlarged lymph nodes. Tubes, lines and devices: There is a tracheostomy tube in good position. IMPRESSION: 1. There are moderately consolidating infiltrates identified in both lower lobes dependently with mild additional patchy infiltrates dependently in both upper lobes. The findings are consistent with bilateral nonspecific pneumonia. Aspiration pneumonia could give this appearance. The infiltrates are only somewhat typical of Covid 19. Confidence is immediate. 2. Evaluation for pulmonary embolus is limited due to breathing motion artifact. No central pulmonary emboli are identified. The liver is homogeneous. We cannot identify a normal spleen. There is dense crescentic calcification in the left upper quadrant at the expected location of the spleen. Gallbladder is absent. The pancreas is unremarkable. Adrenals are normal in morphology. There is a small punctate cortical calcification left kidney. No hydronephrosis bilaterally There is a G-tube in place. Gas-filled bowel loops identified throughout the abdomen and pelvis. No discrete transition point or obstruction. Appendix partially visualized. There is some free fluid in the pelvis. There is no free air. There is a mildly prominent lymph nodes noted in the upper to mid retroperitoneum noted of undetermined etiology or significance. Rivera catheter noted in the bladder. The reservoir for the penile prosthesis is identified in the left lower pelvis. There is a right femoral venous catheter in place. Diffuse sclerosis of the bony pelvis and hips noted of undetermined etiology. IMPRESSION: BILATERAL LOWER LOBE PNEUMONIAS. ALSO SOME HAZY INFILTRATES IN THE UPPER LOBES. A NORMAL SPLEEN IS NOT VISUALIZED. THERE IS A DENSE CRESCENTIC CALCIFICATION LEFT UPPER QUADRANT AT THE EXPECTED LOCATION OF THE SPLEEN. 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 PUNCTATE CORTICAL CALCIFICATION LEFT KIDNEY. NO HYDRONEPHROSIS. PROMINENT LYMPH NODES IN THE UPPER TO MID RETROPERITONEUM OF UNDETERMINED ETIOLOGY OR SIGNIFICANCE. G-TUBE, RIVERA CATHETER, RIGHT FEMORAL CATHETER AND PENILE PROSTHESIS NOTED IN PLACE. MILD DIFFUSE SCLEROSIS OF THE BONY PELVIS AND BOTH HIPS OF UNDETERMINED ETIOLOGY. QUESTION HISTORY OF RENAL OSTEODYSTROPHY. There is a large craniectomy defect in the right frontal temporal region. Diffuse age-related volume loss demonstrated. 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 No definite acute infarct seen. There is no hemorrhage, mass effect or shift. Ventricles and cisterns as well as brainstem and posterior fossa appear unremarkable. The sellar region is normal. Sinuses, mastoid air cells and bony calvarium appear intact. IMPRESSION: Large right frontotemporal craniectomy defect. 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 No definite acute intracranial abnormality. (5) Pneumonia (6) Severe sepsis (7) Port-A-Cath in place (8) Acute prerenal azotemia (9) Status post craniectomy (10) Decubitus skin ulcer Assessment & Plan: SACRUM- STAGE II PRESSURE ULCER MEASURING 1.5X0.5X0.2CM. WOUND BED PINK WITH MINIMAL SERO-SANGUINEOUS DRAINAGE. RECOMMEND-CLEAN WITH SALINE. PAT DRY. APPLY CALAZINE AND COVER WITH OPTIFOAM DRESSING. REPLACE DAILY. LEFT HEEL- STAGE I PRESSURE ULCER. 4X4X0.1CM NON-BLANCHABLE ERYTHEMA NOTED. RECOMMEND-APPLY SKIN CAVILON BARRIER AND COVER WITH OPTIFOAM DRESSING. REPLACE EVERY 3 DAYS. CONTINUE WOUND PREVENTION PROTOCOLS. REPOSITION AT LEAST EVERY 2 HOURS OR TOLERATED OFF-LOAD HEELS WITH PILLOWS Harman Zhao Sep 23, 2020 14:08
--- NOTE | 2020-09-23 14:10 | NUR ---
NURSE NOTES: Seen and examined by Dr. Kemp and Dr. Zhao with new orders noted and carried out. Patient continues to be asleep, in comfortable position. FLACC score of 1/10. Will continue to monitor.
[2020-09-23 16:00] VITALS: BP 124/62
--- NOTE | 2020-09-23 19:15 | NUR ---
NURSE HAND-OFF REPORT: Important Events on Shift: Inserted rectal tube. Patient Status: Stable Diet: GT feeding Pending Orders: Pending Results/Labs: Pending MD notification: Latest Vital Signs: Temperature 98.8 , Pulse 120 , B/P 124 /62 , Respiratory Rate 17 , O2 SAT 98 , Mechanical Ventilator, O2 Flow Rate . Vital Sign Comment: Sinus tachycardia EKG Rhythm: Sinus Tachycardia Rhythm change?: N MD Notified?: N -Belia JIMENEZ Response: Latest Stevens Fall Score: 55 Fall Risk: High Risk Safety Measures: Call light Within Reach, Bed Alarm Zone 2, Side Rails Side Rails x3, Bed position Low and Locked. Fall Precautions: Yellow Socks Report given to ARLYN Richard.
--- NOTE | 2020-09-23 19:30 | NUR ---
NURSE NOTES: pt report received from Cruzito nur RN. pt remains stable, appears asymptomatic. pt is alert and oriented times 3, able to answer yes or no to simple questions. 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 pt is trach vented, sating 100% O2, no other acute resp distress noted. pt bed is low, locked, armed, call light within reach, bed rails up times 3. will follow plan of care.
[2020-09-23 20:00] VITALS: BP 122/65
[2020-09-23] MEDS: Dyna-Hex 2% Top Sol 2oz TOPIC SCH (20:34)
--- NOTE | 2020-09-23 22:00 | NUR ---
NURSE NOTES: pt refused suctioning in trach. pt bed re armed. bed rails up times 3.
--- NOTE | 2020-09-23 22:03 | NUR ---
NURSE NOTES: Cruzito DIAZ in pts room assessing pt and pts vent.
[2020-09-24] VITALS (7 sets, daily range): BP systolic 97–122; BP diastolic 43–71
--- NOTE | 2020-09-24 01:30 | NUR ---
NURSE NOTES: assessed pt. pt refused to be cleaned at this time. vital signs stable. assessed bed, bed is low, locked, armed, bed rails up times 3.
[2020-09-24] MEDS: D5 1/2NS 1,000 ML IV SCH (02:06)
--- NOTE | 2020-09-24 04:30 | NUR ---
NURSE NOTES: pt had times 1 medium BM. stool appears paste like, brown, no unusual fowl smell. rectal tube removed per pt request. pt was then turned, repositioned and cleaned.
[2020-09-24 05:47] LABS: HEMATOCRIT 19.2 % (42.0-52.0); MEAN CORPUSCULAR VOLUME 98 FL (80-99); PLATELET COUNT 205 K/UL (150-450); RED BLOOD COUNT 1.96 M/UL (4.70-6.10); RED CELL DISTRIBUTION WIDTH 16.4 % (11.6-14.8); WHITE BLOOD COUNT 20.6 K/UL (4.8-10.8)
[2020-09-24 06:08] LABS: HEMOGLOBIN 6.1 G/DL (14.2-18.0)
[2020-09-24 06:14] LABS: ALANINE AMINOTRANSFERASE 108 U/L (12-78); ALBUMIN 2.3 G/DL (3.4-5.0); ALBUMIN/GLOBULIN RATIO 0.6 (1.0-2.7); ALKALINE PHOSPHATASE 286 U/L (46-116); ANION GAP 8 mmol/L (5-15); ASPARTATE AMINO TRANSFERASE 82 U/L (15-37); BILIRUBIN,TOTAL 0.9 MG/DL (0.2-1.0); BLOOD UREA NITROGEN 22 mg/dL (7-18); CARBON DIOXIDE 20 MMOL/L (21-32); CHLORIDE 109 MMOL/L (98-107); CREATININE 0.9 MG/DL (0.55-1.30); POTASSIUM 3.8 MMOL/L (3.5-5.1); SODIUM 137 MMOL/L (136-145)
--- NOTE | 2020-09-24 06:26 | NUR ---
NURSE NOTES: called doctor Regan. reported pts critical lab value of Hemoglobin 6.1. awaiting call back. awaiting new orders.
--- NOTE | 2020-09-24 07:25 | NUR ---
NURSE HAND-OFF REPORT: Important Events on Shift:[NA] Patient Status: [Stable] Diet: [tube feeding as per doctor order.] Pending Orders: [NA] Pending Results/Labs:[NA] Pending MD notification:[NA] Latest Vital Signs: Temperature 98.2 , Pulse 119 , B/P 122 /71 , Respiratory Rate 18 , O2 SAT 100 , Mechanical Ventilator, O2 Flow Rate . Vital Sign Comment: [Stable] EKG Rhythm: Sinus Tachycardia Rhythm change?: N MD Notified?: James Rocha MD Response: Latest Stevens Fall Score: 55 Fall Risk: High Risk Safety Measures: Call light Within Reach, Bed Alarm Zone 2, Side Rails Side Rails x3, Bed position Low and Locked. Fall Precautions: Yellow Socks Report given to [Diana STODDARD].
--- NOTE | 2020-09-24 07:26 | NUR ---
NURSE NOTES: Received report from ARLYN Richard. Patient in bed resting, no active s/s cardiac, respiratory distress noticed at this time. AOx2 open eyes spontaneously, resistant to care, ST with HR 119, Patient trach to vent, Shiley 8.5 AC 12 TV 500 PEEP 5 Fio2 40%. GT feeding on, Jevity 1.2 @ 55ml/h. PICC line on left upper arm, IVF D5 1/2 NS running @ 100ml/h. Endorsed MD paged for Hgb, awaiting for callback. Overton Cath draining well to gravity. Bed in lowest position, side rails upx3, call light within reach, bed alarm on, Will continue to monitor.
--- NOTE | 2020-09-24 07:55 | NUR ---
NURSE NOTES: Dr. Celaya at the nursing station, made aware of Hgb level today. No new order received at this time. Will continue to monitor.
[2020-09-24] MEDS ORDERED: Vancomycin 750mg/NS 275ml IVPB ONE ×2 (08:00)
[2020-09-24] MEDS: Cefepime HCl 1 GM in D5W 55 ML IVPB SCH ×2 (08:32→20:46)
--- NOTE | 2020-09-24 10:20 | General Progress Note ---
Subjective ROS Limited/Unobtainable: No Constitutional: Reports: malaise, weakness HEENT: Reports: no symptoms Cardiovascular: Reports: no symptoms Respiratory: Reports: cough, shortness of breath, sputum Gastrointestinal/Abdominal: Reports: difficulty swallowing Genitourinary: Reports: no symptoms Neurologic/Psychiatric: Reports: pre-existing deficit, seizure Endocrine: Reports: no symptoms Hematologic/Lymphatic: Reports: anemia Allergies: Coded Allergies: ADHESIVE TAPE (Verified Allergy, Unknown, 07/20/20) Uncoded Allergies: TAPE (Allergy, Unknown, 08/07/20) All Systems: reviewed and negative except above Subjective no events. stable on the vent. no fever or chills. sputum cultures +. on iv abx. Objective Last 24 Hour Vital Signs Date Time Temp Pulse Resp B/P (MAP) Pulse Ox O2 Delivery O2 Flow Rate FiO2 09/24/20 08:00 98.1 87 20 106/43 (64) 100 09/24/20 08:00 Mechanical Ventilator 09/24/20 08:00 40 09/24/20 07:45 98 09/24/20 07:15 108 15 40 09/24/20 04:47 119 18 40 09/24/20 04:00 100 09/24/20 04:00 Mechanical Ventilator 09/24/20 04:00 98.2 104 23 122/71 (88) 100 09/24/20 04:00 40 09/24/20 03:03 110 15 40 09/24/20 01:08 118 17 40 09/24/20 00:00 127 09/24/20 00:00 Mechanical Ventilator 09/24/20 00:00 40 09/24/20 00:00 98.2 120 23 118/55 (76) 100 09/23/20 23:01 110 18 40 09/23/20 21:18 102 16 40 09/23/20 21:04 98.3 09/23/20 20:00 112 09/23/20 20:00 40 09/23/20 20:00 98.7 112 23 122/65 (84) 99 09/23/20 20:00 Mechanical Ventilator 09/23/20 19:29 111 19 40 09/23/20 17:20 120 17 40 09/23/20 16:00 98.8 130 23 124/62 (82) 98 09/23/20 16:00 139 09/23/20 16:00 Mechanical Ventilator 09/23/20 16:00 40 09/23/20 15:15 137 18 40 09/23/20 13:15 106 19 40 09/23/20 12:32 103 09/23/20 12:00 Mechanical Ventilator 09/23/20 12:00 97.9 140 22 140/76 (97) 100 09/23/20 12:00 40 09/23/20 11:27 97 16 40 Intake and Output 09/23/20 09/24/20 19:00 07:00 Intake Total 1800 ml 1900 ml Output Total 1300 ml 1100 ml Balance 500 ml 800 ml Intake Free Water 140 ml 240 ml IV Total 1000 ml 1055 ml Tube Feeding 660 ml 605 ml Output Urine Total 1300 ml 1100 ml # Voids 1 Laboratory Tests 09/24/20 04:40: White Blood Count 20.6H, Red Blood Count 1.96L, Hemoglobin 6.1*L, Hematocrit 19.2L, Mean Corpuscular Volume 98, Mean Corpuscular Hemoglobin 31.4H, Mean Corpuscular Hemoglobin Concent 32.0, Red Cell Distribution Width 16.4H, Platelet Count 205, Mean Platelet Volume 8.2, Neutrophils (%) (Auto) , Lymphocytes (%) (Auto) , Monocytes (%) (Auto) , Eosinophils (%) (Auto) , Basophils (%) (Auto) , Neutrophils % (Manual) [Pending], Lymphocytes % (Manual) [Pending], Platelet Estimate [Pending], Platelet Morphology [Pending], Sodium Level 137, Potassium Level 3.8, Chloride Level 109H, Carbon Dioxide Level 20L, Anion Gap 8, Blood Ure a Nitrogen 22H, Creatinine 0.9, Estimat Glomerular Filtration Rate > 60, Glucose Level 453H, Calcium Level 8.0L, Total Bilirubin 0.9, Aspartate Amino Transf (AST/SGOT) 82H, Alanine Aminotransferase (ALT/SGPT) 108H, Alkaline Phosphatase 286H, Total Protein 6.2L, Albumin 2.3L, Globulin 3.9, Albumin/Globulin Ratio 0.6L, Random Vancomycin Level 9.9 Height (Feet): 6 Weight (Pounds): 150 Objective General Appearance: WD/WN, alert EENT: normal ENT inspection Neck: non-tender, normal alignment, supple Cardiovascular: normal peripheral pulses, normal rate, regular rhythm Respiratory/Chest: chest wall non-tender, lungs clear, normal breath sounds, no respiratory distress Abdomen: normal bowel sounds, non tender, soft, no organomegaly Neurologic: personnel representative II-XII grossly normal, alert, oriented x 3, responsive Assessment/Plan Problem List: (1) Sickle cell anemia ICD Codes: D57.1 - Sickle-cell disease without crisis SNOMED: 001624079 Qualifiers: Qualified Codes: D57.1 - Sickle-cell disease without crisis (2) Tachycardia ICD Codes: R00.0 - Tachycardia, unspecified SNOMED: 3108762 (3) Severe sepsis ICD Codes: A41.9 - Sepsis, unspecified organism; R65.20 - Severe sepsis without septic shock SNOMED: 75027562 (4) Pneumonia ICD Codes: J18.9 - Pneumonia, unspecified organism SNOMED: 531760867 Status: stable Assessment/Plan: iv abx follow up cultures monitor wbc/hgb wean as able transfuse prn Lalo Celaya MD Sep 24, 2020 10:20
--- NOTE | 2020-09-24 10:37 | NUR ---
CASE MANAGEMENT:REVIEW 09/24/20 SI: SICKLE CELL ANEMIA. SEPSIS. PNA 98.1 119 18 106/43 100% ON VENT SUPPORT W/40% FIO2 WBC+22.9 H/H-6.5/20.5 GLUCOSE+435 IS: IV VANCOMYCIN X1 IV CEFEPIME Q12 IVF@100/HR IV MORPHINE Q4HRS PRN : STEP DOWN UNIT DCP: FROM [facility]
--- NOTE | 2020-09-24 11:07 | NUR ---
NURSE NOTES: Dr. Celaya made aware of blood glucose trending up. Per MD, discontinue IVF. Order noted, entered, carried out.
--- NOTE | 2020-09-24 15:48 | Surgery Progress Note ---
Surgery Progress Note Subjective Additional Comments anemia hb 6 lfts stable Objective Last 24 Hour Vital Signs Date Time Temp Pulse Resp B/P (MAP) Pulse Ox O2 Delivery O2 Flow Rate FiO2 09/24/20 12:00 Mechanical Ventilator 09/24/20 12:00 40 09/24/20 12:00 97.5 81 18 97/65 (76) 100 09/24/20 11:50 79 09/24/20 08:00 98.1 87 20 106/43 (64) 100 09/24/20 08:00 Mechanical Ventilator 09/24/20 08:00 40 09/24/20 07:45 98 09/24/20 07:15 108 15 40 09/24/20 04:47 119 18 40 09/24/20 04:00 100 09/24/20 04:00 Mechanical Ventilator 09/24/20 04:00 98.2 104 23 122/71 (88) 100 09/24/20 04:00 40 09/24/20 03:03 110 15 40 09/24/20 01:08 118 17 40 09/24/20 00:00 127 09/24/20 00:00 Mechanical Ventilator 09/24/20 00:00 40 09/24/20 00:00 98.2 120 23 118/55 (76) 100 09/23/20 23:01 110 18 40 09/23/20 21:18 102 16 40 09/23/20 21:04 98.3 09/23/20 20:00 112 09/23/20 20:00 40 09/23/20 20:00 98.7 112 23 122/65 (84) 99 09/23/20 20:00 Mechanical Ventilator 09/23/20 19:29 111 19 40 09/23/20 17:20 120 17 40 09/23/20 16:00 98.8 130 23 124/62 (82) 98 09/23/20 16:00 139 09/23/20 16:00 Mechanical Ventilator 09/23/20 16:00 40 I&O Intake and Output 09/23/20 09/24/20 19:00 07:00 Intake Total 1800 ml 2000 ml Output Total 1300 ml 1100 ml Balance 500 ml 900 ml Intake Free Water 140 ml 240 ml IV Total 1000 ml 1155 ml Tube Feeding 660 ml 605 ml Output Urine Total 1300 ml 1100 ml # Voids 1 Dressing: saturated Cardiovascular: RSR Respiratory: decreased breath sounds Abdomen: non-tender, present bowel sounds Extremities: no edema, no tenderness, no cyanosis Laboratory Tests Test 09/24/20 04:40 White Blood Count 20.6 K/UL (4.8-10.8) H Red Blood Count 1.96 M/UL (4.70-6.10) L Hemoglobin 6.1 G/DL (14.2-18.0) *L Hematocrit 19.2 % (42.0-52.0) L Mean Corpuscular Volume 98 FL (80-99) Mean Corpuscular Hemoglobin 31.4 PG (27.0-31.0) H Mean Corpuscular Hemoglobin Concent 32.0 G/DL (32.0-36.0) Red Cell Distribution Width 16.4 % (11.6-14.8) H Platelet Count 205 K/UL (150-450) Mean Platelet Volume 8.2 FL (6.5-10.1) Neutrophils (%) (Auto) % (45.0-75.0) Lymphocytes (%) (Auto) % (20.0-45.0) Monocytes (%) (Auto) % (1.0-10.0) Eosinophils (%) (Auto) % (0.0-3.0) Basophils (%) (Auto) % (0.0-2.0) Differential Total Cells Counted 100 Neutrophils % (Manual) 89 % (45-75) H Lymphocytes % (Manual) 6 % (20-45) L Monocytes % (Manual) 3 % (1-10) Eosinophils % (Manual) 1 % (0-3) Basophils % (Manual) 1 % (0-2) Band Neutrophils 0 % (0-8) Platelet Estimate Adequate Platelet Morphology Normal Red Blood Cell Morphology Normal Sodium Level 137 MMOL/L (136-145) Potassium Level 3.8 MMOL/L (3.5-5.1) Chloride Level 109 MMOL/L (98-107) H Carbon Dioxide Level 20 MMOL/L (21-32) L Anion Gap 8 mmol/L (5-15) Blood Urea Nitrogen 22 mg/dL (7-18) H Creatinine 0.9 MG/DL (0.55-1.30) Estimat Glomerular Filtration Rate > 60 mL/min (>60) Glucose Level 453 MG/DL (74-106) H Calcium Level 8.0 MG/DL (8.5-10.1) L Total Bilirubin 0.9 MG/DL (0.2-1.0) Aspartate Amino Transf (AST/SGOT) 82 U/L (15-37) H Alanine Aminotransferase (ALT/SGPT) 108 U/L (12-78) H Alkaline Phosphatase 286 U/L (46-116) H Total Protein 6.2 G/DL (6.4-8.2) L Albumin 2.3 G/DL (3.4-5.0) L Globulin 3.9 g/dL Albumin/Globulin Ratio 0.6 (1.0-2.7) L Random Vancomycin Level 9.9 ug/mL Plan Problems: (1) Sickle cell anemia (2) Sickle cell crisis (3) Tachycardia (4) Sepsis Assessment & Plan: 35-year-old male sickle cell multiple comorbidities history of craniotomy trach feeding tube prior port infected removed see prior admission and consult and operative notes. Currently presents with significant leukocytosis fevers hypotension in intensive care unit wound site evaluated unlikely etiology. Trach evaluated may consider changing. LFTs noted elevated. Ultrasound ordered pending results trend labs continue IV antibiotics appreciate infectious disease input will follow with recommendations thank you for let me participate in patient's care KUB and US noted labs reviewed transfuse prbc prn trach change peg changed line out picc placed persistent wbc h/h noted anemia ss better since new trach Shiley [address] secretions manageable Trach replaced at bedside 925 for malpositioning it was identified he does have a false track as well. Will ensure trach is in correct positioning daily every shift trach not stable removed and intubated 08/25 on ett vent will need trach revision discussed with mother and medical teams trach and picc s/p trach revision 6 f dxlt last admission trach stable vent stable wbc persistent again pulmonary arteries: Evaluation for pulmonary embolus is limited due to breathing motion artifact. No central pulmonary emboli are identified. Aorta: No acute findings. No thoracic aortic aneurysm. Lungs: There are moderately consolidating infiltrates identified in both lower lobes dependently with mild additional patchy infiltrates dependently in both upper lobes. The findings are consistent with bilateral nonspecific pneumonia. Aspiration pneumonia could give this appearance. The infiltrates are only somewhat typical of Covid 19. Confidence is immediate. Pleural space: Unremarkable. No significant effusion. No pneumothorax. Heart: Unremarkable. No cardiomegaly. No significant pericardial effusion. No evidence of RV dysfunction. Bones/joints: No acute fracture. No dislocation. Soft tissues: Unremarkable. Lymph nodes: Unremarkable. No enlarged lymph nodes. Tubes, lines and devices: There is a tracheostomy tube in good position. IMPRESSION: 1. There are moderately consolidating infiltrates identified in both lower lobes dependently with mild additional patchy infiltrates dependently in both upper lobes. The findings are consistent with bilateral nonspecific pneumonia. Aspiration pneumonia could give this appearance. The infiltrates are only somewhat typical of Covid 19. Confidence is immediate. 2. Evaluation for pulmonary embolus is limited due to breathing motion artifact. No central pulmonary emboli are identified. The liver is homogeneous. We cannot identify a normal spleen. There is dense crescentic calcification in the left upper quadrant at the expected location of the spleen. Gallbladder is absent. The pancreas is unremarkable. Adrenals are normal in morphology. There is a small punctate cortical calcification left kidney. No hydronephrosis bilaterally There is a G-tube in place. Gas-filled bowel loops identified throughout the abdomen and pelvis. No discrete transition point or obstruction. Appendix partially visualized. There is some free fluid in the pelvis. There is no free air. There is a mildly prominent lymph nodes noted in the upper to mid retroperitoneum noted of undetermined etiology or significance. Rivera catheter noted in the bladder. The reservoir for the penile prosthesis is identified in the left lower pelvis. There is a right femoral venous catheter in place. Diffuse sclerosis of the bony pelvis and hips noted of undetermined etiology. IMPRESSION: BILATERAL LOWER LOBE PNEUMONIAS. ALSO SOME HAZY INFILTRATES IN THE UPPER LOBES. A NORMAL SPLEEN IS NOT VISUALIZED. THERE IS A DENSE CRESCENTIC CALCIFICATION LEFT UPPER QUADRANT AT THE EXPECTED LOCATION OF THE SPLEEN. 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 PUNCTATE CORTICAL CALCIFICATION LEFT KIDNEY. NO HYDRONEPHROSIS. PROMINENT LYMPH NODES IN THE UPPER TO MID RETROPERITONEUM OF UNDETERMINED ETIOLOGY OR SIGNIFICANCE. G-TUBE, RIVERA CATHETER, RIGHT FEMORAL CATHETER AND PENILE PROSTHESIS NOTED IN PLACE. MILD DIFFUSE SCLEROSIS OF THE BONY PELVIS AND BOTH HIPS OF UNDETERMINED ETIOLOGY. QUESTION HISTORY OF RENAL OSTEODYSTROPHY. There is a large craniectomy defect in the right frontal temporal region. Diffuse age-related volume loss demonstrated. 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 No definite acute infarct seen. There is no hemorrhage, mass effect or shift. Ventricles and cisterns as w ell as brainstem and posterior fossa appear unremarkable. The sellar region is normal. Sinuses, mastoid air cells and bony calvarium appear intact. IMPRESSION: Large right frontotemporal craniectomy defect. 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 No definite acute intracranial abnormality. (5) Pneumonia (6) Severe sepsis (7) Port-A-Cath in place (8) Acute prerenal azotemia (9) Status post craniectomy (10) Decubitus skin ulcer Assessment & Plan: SACRUM- STAGE II PRESSURE ULCER MEASURING 1.5X0.5X0.2CM. WOUND BED PINK WITH MINIMAL SERO-SANGUINEOUS DRAINAGE. RECOMMEND-CLEAN WITH SALINE. PAT DRY. APPLY CALAZINE AND COVER WITH OPTIFOAM DR HALL. REPLACE DAILY. LEFT HEEL- STAGE I PRESSURE ULCER. 4X4X0.1CM NON-BLANCHABLE ERYTHEMA NOTED. RECOMMEND-APPLY SKIN CAVILON BARRIER AND COVER WITH OPTIFOAM DRESSING. REPLACE EVERY 3 DAYS. CONTINUE WOUND PREVENTION PROTOCOLS. REPOSITION AT LEAST EVERY 2 HOURS OR TOLERATED OFF-LOAD HEELS WITH PILLOWS Harman Zhoa Sep 24, 2020 15:48
--- NOTE | 2020-09-24 17:09 | NUR ---
NURSE HAND-OFF REPORT: Important Events on Shift: NA Patient Status: stable Diet: Jevity 1.2 @ 55ml/h Pending Orders: na Pending Results/Labs:na Pending notification:na Latest Vital Signs: Temperature 97.5 , Pulse 76 , B/P 108 /68 , Respiratory Rate 18 , O2 SAT 100 , Mechanical Ventilator, O2 Flow Rate . Vital Sign Comment: na EKG Rhythm: Sinus Rhythm Rhythm change?: N Notified?: James Rocha MD Response: Latest Stevens Fall Score: 50 Fall Risk: High Risk Safety Measures: Call light Within Reach, Bed Alarm Zone 2, Side Rails Side Rails x3, Bed position Low and Locked. Fall Precautions: Yellow Socks Yellow Gown Door Sign Patient Fall Education Report given to ARLYN Mcqueen.
--- NOTE | 2020-09-24 17:10 | NUR ---
NURSE NOTES: Received report from ARLYN Ortiz. The patient is resting on the bed without acute distress or shortness of breath. The patient is alert but aggressive and combative to staff. Communication made with facial expression, body movement, and able to nod head upon asking question. SR with HR of [address] recording monitor. The patient is trach'ed and on mechanical ventilator on following setting and oxygen saturation is 100%: Shiley 6, AC 12, TV 500, FiO2 40%, PEEP 5. The patient's GT intact and patent and running Jevity 1.2 @ 55mL/hr per order. The patient's Overton intact and draining by gravity. Skin issue noted and dressing intact. The patient has JOLLY double lumen PICC line that is intact and patent. ARLYN Ortiz notified abnormal lab including WBC and Hemoglobin but no new order or no transfusion order at this time. The patient's bed in the lowest position, call light in reach, fall, aspiration, and seizure precaution reinforced. IV site intact and patent. Will follow up the lab and order. Will closely monitor the patient. Will continue plan of care.
--- NOTE | 2020-09-24 17:30 | NUR ---
NURSE NOTES: The patient is resting comfortably without acute distress or shortness of breath. Tolerating vent setting and TF well. Will closely monitor the patient. Will continue plano f care.
--- NOTE | 2020-09-24 18:20 | NUR ---
NURSE NOTES: The patient is resting comfortably without acute distress or shortness of breath. Tolerating vent setting and TF well. Vital signs stable. Will closely monitor the patient. Will continue plan of care.
--- NOTE | 2020-09-24 19:05 | NUR ---
NURSE HAND-OFF REPORT: Important Events on Shift: Stable throughout the shift, Hgb 6.1_ No transfusion per Dr. Celaya's order Patient Status: Stable, Full code Diet: GTF Jevity 1.2 @ 55mL/hr Pending Orders: N Pending Results/Labs: N Pending MD notification: N Latest Vital Signs: Temperature 97.5 , Pulse 84 , B/P 103 /56 , Respiratory Rate 16 , O2 SAT 100 , Mechanical Ventilator, O2 Flow Rate . Vital Sign Comment: Stable EKG Rhythm: Sinus Rhythm Rhythm change?: N Notified?: James Rocha MD Response: Latest Stevens Fall Score: 50 Fall Risk: High Risk Safety Measures: Call light Within Reach, Bed Alarm Zone 2, Side Rails Side Rails x3, Bed position Low and Locked. Fall Precautions: Yellow Socks Yellow Gown Door Sign Patient Fall Education Report given to ARLYN Richard. The patient is stable at this time. Endorsed plan of care. Addendum: 09/24/20 at 1948 by Marino Anthony RN Report given to ARLYN Mayen. The patient is stable at this time. Endorsed plan of care.
--- NOTE | 2020-09-24 20:34 | NUR ---
NURSE NOTES: Report received from ARLYN Mcqueen. Observed pt lying in the bed, sleeping, arousable, denies any pain at this time. SR on nurse monitoring. Trach to vent, AC 12, TV 500, FIO2 40%, PEEP 5, saturating 100%. GT intact, running Jevity 1.2 at 55cc/hr, no residual, flushing well. L UA PICC noted, blood culture preliminarily negative noted, TKO. Bed in the lowest position. Side rails up x3. Call light within reach. Will continue to monitor.
[2020-09-24] MEDS: Dyna-Hex 2% Top Sol 2oz TOPIC SCH (20:46)
[2020-09-24] MEDS: Vancomycin 500mg/D5W 110ml IVPB SCH ×2 (20:49)
[2020-09-25] VITALS: BP 110/60
--- NOTE | 2020-09-25 00:12 | NUR ---
NURSE NOTES: Pt refused to check temperature and saturation, taking it off and threw it away, tried x3, still refused, explained risks and benefits. No signs of sob and acute distress. Will continue to monitor. Reposition done. Addendum: 09/25/20 at 0013 by Faheem Han RN oral care refused.
[2020-09-25] MEDS: Acetaminophen 650mg/20.3ml GT PRN (01:03)
--- NOTE | 2020-09-25 01:34 | NUR ---
NURSE NOTES: pt combative, refused to oral care and am care. No distress noted. Will continue to monitor.
[2020-09-25 04:00] VITALS: BP 113/61
[2020-09-25 04:59] LABS: HEMATOCRIT 17.9 % (42.0-52.0); MEAN CORPUSCULAR VOLUME 96 FL (80-99); PLATELET COUNT 167 K/UL (150-450); RED BLOOD COUNT 1.87 M/UL (4.70-6.10); WHITE BLOOD COUNT 20.2 K/UL (4.8-10.8)
[2020-09-25 05:13] LABS: HEMOGLOBIN 5.9 G/DL (14.2-18.0)
[2020-09-25 05:26] LABS: ALANINE AMINOTRANSFERASE 97 U/L (12-78); ALBUMIN 2.3 G/DL (3.4-5.0); ALBUMIN/GLOBULIN RATIO 0.7 (1.0-2.7); ALKALINE PHOSPHATASE 288 U/L (46-116); ANION GAP 7 mmol/L (5-15); ASPARTATE AMINO TRANSFERASE 76 U/L (15-37); BILIRUBIN,TOTAL 0.9 MG/DL (0.2-1.0); BLOOD UREA NITROGEN 24 mg/dL (7-18); CALCIUM 8.1 MG/DL (8.5-10.1); CARBON DIOXIDE 23 MMOL/L (21-32); CHLORIDE 115 MMOL/L (98-107); CREATININE 0.8 MG/DL (0.55-1.30); POTASSIUM 4.2 MMOL/L (3.5-5.1); SODIUM 145 MMOL/L (136-145)
--- NOTE | 2020-09-25 06:59 | General Progress Note ---
Subjective ROS Limited/Unobtainable: No Constitutional: Reports: malaise, weakness HEENT: Reports: no symptoms Cardiovascular: Reports: no symptoms Respiratory: Reports: shortness of breath Gastrointestinal/Abdominal: Reports: difficulty swallowing Genitourinary: Reports: no symptoms Neurologic/Psychiatric: Reports: pre-existing deficit, seizure Endocrine: Reports: no symptoms Hematologic/Lymphatic: Reports: anemia Allergies: Coded Allergies: ADHESIVE TAPE (Verified Allergy, Unknown, 07/20/20) Uncoded Allergies: TAPE (Allergy, Unknown, 08/07/20) All Systems: reviewed and negative except above Subjective no events. stable on the vent. no fever or chills. sputum cultures +. on iv abx. alert. no complaints. Objective Last 24 Hour Vital Signs Date Time Temp Pulse Resp B/P (MAP) Pulse Ox O2 Delivery O2 Flow Rate FiO2 09/25/20 05:06 77 16 40 09/25/20 04:00 97.4 76 18 113/61 (78) 100 09/25/20 04:00 40 09/25/20 04:00 80 09/25/20 04:00 Mechanical Ventilator 09/25/20 03:19 78 17 40 09/25/20 00:48 74 16 40 09/25/20 00:00 85 09/25/20 00:00 69 18 110/60 (77) 09/25/20 00:00 Mechanical Ventilator 09/24/20 22:57 82 15 40 09/24/20 21:15 77 15 40 09/24/20 20:00 97.4 69 18 102/58 (73) 100 09/24/20 20:00 Mechanical Ventilator 09/24/20 20:00 40 09/24/20 20:00 67 09/24/20 19:00 84 16 40 09/24/20 18:48 75 15 40 09/24/20 17:20 Mechanical Ventilator 09/24/20 17:11 76 16 40 09/24/20 17:10 97.5 68 18 103/56 (72) 100 09/24/20 16:00 40 09/24/20 16:00 Mechanical Ventilator 09/24/20 16:00 97.5 76 18 108/68 (81) 100 09/24/20 15:31 78 09/24/20 15:10 84 16 40 09/24/20 13:10 87 16 40 09/24/20 12:00 Mechanical Ventilator 09/24/20 12:00 40 09/24/20 12:00 97.5 81 18 97/65 (76) 100 09/24/20 11:50 79 09/24/20 11:10 88 15 40 09/24/20 09:10 82 15 40 09/24/20 08:00 98.1 87 20 106/43 (64) 100 09/24/20 08:00 Mechanical Ventilator 09/24/20 08:00 40 09/24/20 07:45 98 09/24/20 07:15 108 15 40 Intake and Output 09/24/20 09/25/20 19:00 07:00 Intake Total 1374.998 ml 910 ml Output Total 700 ml 1300 ml Balance 674.998 ml -390 ml Intake Free Water 140 ml 140 ml IV Total 629.998 ml 165 ml Tube Feeding 605 ml 605 ml Output Urine Total 700 ml 1300 ml Laboratory Tests 09/25/20 04:00: White Blood Count 20.2H, Red Blood Count 1.87L, Hemoglobin 5.9*L, Hematocrit 17.9L, Mean Corpuscular Volume 96, Mean Corpuscular Hemoglobin 31.6H, Mean Co rpuscular Hemoglobin Concent 33.0, Red Cell Distribution Width 16.0H, Platelet Count 167, Mean Platelet Volume 8.9, Neutrophils (%) (Auto) , Lymphocytes (%) (Auto) , Monocytes (%) (Auto) , Eosinophils (%) (Auto) , Basophils (%) (Auto) , Neutrophils % (Manual) [Pending], Lymphocytes % (Manual) [Pending], Platelet Estimate [Pending], Platelet Morphology [Pending], Reticulocyte Count [Pending], Sodium Level 145, Potassium Level 4.2, Chloride Level 115H, Carbon Dioxide Level 23, Anion Gap 7, Blood Urea Nitrogen 24H, Creatinine 0.8, Estimat Glomerular Filtration Rate > 60, Glucose Level 97#, Calcium Level 8.1L, Total Bilirubin 0.9, Aspartate Amino Transf (AST/SGOT) 76H, Alanine Aminotransferase (ALT/SGPT) 97H, Alkaline Phosphatase 288H, Total Protein 5.7L, Albumin 2.3L, Globulin 3.4, Albumin/Globulin Ratio 0.7L Height (Feet): 6 Weight (Pounds): 150 Objective General Appearance: WD/WN, alert EENT: normal ENT inspection Neck: non-tender, normal alignment, supple Cardiovascular: normal peripheral pulses, normal rate, regular rhythm Respiratory/Chest: chest wall non-tender, lungs clear, normal breath sounds, no respiratory distress Abdomen: normal bowel sounds, non tender, soft, no organomegaly Neurologic: hydraulic spinner II-XII grossly normal, alert, oriented x 3, responsive Assessment/Plan Problem List: (1) Sickle cell anemia ICD Codes: D57.1 - Sickle-cell disease without crisis SNOMED: [id number] Qualifiers: Qualified Codes: D57.1 - Sickle-cell disease without crisis (2) Tachycardia ICD Codes: R00.0 - Tachycardia, unspecified SNOMED: 9876596 (3) Severe sepsis ICD Codes: A41.9 - Sepsis, unspecified organism; R65.20 - Severe sepsis without septic shock SNOMED: 96752238 (4) Pneumonia ICD Codes: J18.9 - Pneumonia, unspecified organism SNOMED: 265762557 Status: stable Assessment/Plan: iv abx follow up cultures monitor wbc/hgb wean as able transfuse Lalo Estrada MD Sep 25, 2020 06:59
--- NOTE | 2020-09-25 07:09 | NUR ---
NURSE HAND-OFF REPORT: Important Events on Shift: hgb 5.7, Dr. Celaya aware, plan endorsed. pt combative, refusing care Patient Status: No distress noted Diet: Jevity 55cc/hr Pending Orders: n Pending Results/Labs: n Pending MD notification: n Latest Vital Signs: Temperature 97.4 , Pulse 77 , B/P 113 /61 , Respiratory Rate 16 , O2 SAT 100 , Mechanical Ventilator, O2 Flow Rate . Vital Sign Comment: EKG Rhythm: Sinus Rhythm Rhythm change?: N MD Notified?: James Rocha MD Response: Latest Stevens Fall Score: 50 Fall Risk: High Risk Safety Measures: Call light Within Reach, Bed Alarm Zone 2, Side Rails Side Rails x3, Bed position Low and Locked. Fall Precautions: Yellow Socks Yellow Gown Door Sign Patient Fall Education Report given to ARLYN Ortiz.
--- NOTE | 2020-09-25 07:25 | NUR ---
NURSE NOTES: Received report from ARLYN Ulloa. Patient in bed resting, no active s/s cardiac, respiratory distress noticed at this time. Patient on GT feeding, Jevity 1.2 @ 55ml/h, tolerating well. Patient trach to vent, Shiley 6 AC 12 TV 500 PEEP 5 Fio2 40%. Patient SR with HR 77. Overton Catheter draining well to gravity. PICC line on left upper arm, patent, intact. Endorsed MD aware of Hgb level, ordered accordingly. Bed in lowest position, side rails upx3, padded, bed alarm on, Call light within reach, Will continue to monitor.
[2020-09-25 08:00] VITALS: BP 123/62
[2020-09-25] MEDS: Vancomycin 500mg/D5W 110ml IVPB SCH ×2 (08:48)
[2020-09-25] MEDS: Cefepime HCl 1 GM in D5W 55 ML IVPB SCH (08:48)
--- NOTE | 2020-09-25 10:25 | NUR ---
NURSE NOTES: Per Dr. Castillo, one unit of PRBC. Transfusion 1 unit PRBC initiated. No s/s transfusion reaction noted at this time, will continue to monitor.
--- NOTE | 2020-09-25 11:11 | Infectious Diseases Prog Note ---
"Assessment/Plan Assessment/Plan antibiotics : vancomycin iv, cefepime A 1. serratia | stenotrophomonas pneumonia COVID 19 negative 2. leucocytosis improving 3. sickle cell disease 4. respiratory failure 5. intracranial hemorrhage 6. seizures P '1. start and continue ceftriaxone 5 more days 2. d/c iv vancomycin, cefepime 3. start and continue levoquin 9 more days 4. will follow up cultures Subjective ROS Limited/Unobtainable: Yes Allergies: Coded Allergies: ADHESIVE TAPE (Verified Allergy, Unknown, 07/20/20) Uncoded Allergies: TAPE (Allergy, Unknown, 08/07/20) Objective Last 24 Hour Vital Signs Date Time Temp Pulse Resp B/P (MAP) Pulse Ox O2 Delivery O2 Flow Rate FiO2 09/25/20 09:11 71 16 40 09/25/20 08:00 73 09/25/20 08:00 40 09/25/20 08:00 Mechanical Ventilator 09/25/20 08:00 97.8 72 20 123/62 (82) 100 09/25/20 07:25 69 17 40 09/25/20 05:06 77 16 40 09/25/20 04:00 97.4 76 18 113/61 (78) 100 09/25/20 04:00 40 09/25/20 04:00 80 09/25/20 04:00 Mechanical Ventilator 09/25/20 03:19 78 17 40 09/25/20 00:48 74 16 40 09/25/20 00:00 85 09/25/20 00:00 69 18 110/60 (77) 09/25/20 00:00 Mechanical Ventilator 09/24/20 22:57 82 15 40 09/24/20 21:15 77 15 40 09/24/20 20:00 97.4 69 18 102/58 (73) 100 09/24/20 20:00 Mechanical Ventilator 09/24/20 20:00 40 09/24/20 20:00 67 09/24/20 19:00 84 16 40 09/24/20 18:48 75 15 40 09/24/20 17:20 Mechanical Ventilator 09/24/20 17:11 76 16 40 09/24/20 17:10 97.5 68 18 103/56 (72) 100 09/24/20 16:00 40 09/24/20 16:00 Mechanical Ventilator 10/25/20 16:00 97.5 76 18 108/68 (81) 100 09/24/20 15:31 78 09/24/20 15:10 84 16 40 09/24/20 13:10 87 16 40 09/24/20 12:00 Mechanical Ventilator 09/24/20 12:00 40 09/24/20 12:00 97.5 81 18 97/65 (76) 100 09/24/20 11:50 79 09/24/20 11:10 88 15 40 Height (Feet): 6 Weight (Pounds): 150 HEENT: status post trach Respiratory/Chest: lungs clear Cardiovascular: normal rate, regular rhythm, no gallop/murmur Abdomen: soft, non tender, other - GT Extremities: no edema, other - left arm PICC Microbiology Date/Time Source Procedure Growth Status 09/22/20 13:00 Sputum Gram Stain - Final Complete 09/22/20 13:00 Sputum Culture - Final Serratia Marcescens Stenotrophomonas Maltophilia Complete Laboratory Tests Test 09/25/20 04:00 White Blood Count 20.2 K/UL (4.8-10.8) H Red Blood Count 1.87 M/UL (4.70-6.10) L Hemoglobin 5.9 G/DL (14.2-18.0) *L Hematocrit 17.9 % (42.0-52.0) L Mean Corpuscular Volume 96 FL (80-99) Mean Corpuscular Hemoglobin 31.6 PG (27.0-31.0) H Mean Corpuscular Hemoglobin Concent 33.0 G/DL (32.0-36.0) Red Cell Distribution Width 16.0 % (11.6-14.8) H Platelet Count 167 K/UL (150-450) Mean Platelet Volume 8.9 FL (6.5-10.1) Neutrophils (%) (Auto) % (45.0-75.0) Lymphocytes (%) (Auto) % (20.0-45.0) Monocytes (%) (Auto) % (1.0-10.0) Eosinophils (%) (Auto) % (0.0-3.0) Basophils (%) (Auto) % (0.0-2.0) Differential Total Cells Counted 100 Neutrophils % (Manual) 78 % (45-75) H Lymphocytes % (Manual) 11 % (20-45) L Monocytes % (Manual) 7 % (1-10) Eosinophils % (Manual) 4 % (0-3) H Basophils % (Manual) 0 % (0-2) Band Neutrophils 0 % (0-8) Platelet Estimate Adequate Platelet Morphology Normal Hypochromasia 2+ Anisocytosis 1+ Macrocytosis 1+ Reticulocyte Count 3.6 % (0.5-2.0) H Sodium Level 145 MMOL/L (136-145) Potassium Level 4.2 MMOL/L (3.5-5.1) Chloride Level 115 MMOL/L (98-107) H Carbon Dioxide Level 23 MMOL/L (21-32) Anion Gap 7 mmol/L (5-15) Blood Urea Nitrogen 24 mg/dL (7-18) H Creatinine 0.8 MG/DL (0.55-1.30) Estimat Glomerular Filtration Rate > 60 mL/min (>60) Glucose Level 97 MG/DL (74-106) # Calcium Level 8.1 MG/DL (8.5-10.1) L Total Bilirubin 0.9 MG/DL (0.2-1.0) Aspartate Amino Transf (AST/SGOT) 76 U/L (15-37) H Alanine Aminotransferase (ALT/SGPT) 97 U/L (12-78) H Alkaline Phosphatase 288 U/L (46-116) H Total Protein 5.7 G/DL (6.4-8.2) L Albumin 2.3 G/DL (3.4-5.0) L Globulin 3.4 g/dL Albumin/Globulin Ratio 0.7 (1.0-2.7) L Current Medications Medications (Trade) Dose Ordered Sig/Piedad Route PRN Reason Start Time Stop Time Status Last Admin Dose Admin Acetaminophen (Tylenol) 650 mg Q4H PRN GT Temp >100.5 09/21/20 08:45 10/21/20 08:44 Acetaminophen (Tylenol) 650 mg Q4H PRN GT pain scale 1-6 09/21/20 09:30 10/21/20 09:29 09/25/20 01:03 Cefepime HCl 1 gm/ Dextrose 55 ml @ 110 mls/hr EVERY 12 HOURS IVPB 09/21/20 09:00 09/28/20 08:59 09/25/20 08:48 Chlorhexidine Gluconate (Christy-Hex 2%) 1 applic DAILY@2000 TOPIC 09/22/20 20:00 12/21/20 19:59 09/24/20 20:46 Levetiracetam (Keppra) 750 mg Q12HR ORAL 09/21/20 09:00 10/21/20 08:59 09/25/20 08:48 Morphine Sulfate (Morphine Sulfate) 2 mg Q4H PRN IVP Severe Pain (Pain Scale 7-10) 09/21/20 09:30 09/28/20 09:29 09/23/20 20:34 Vancomycin HCl ([facility] pharmacy to dose) 1 ea DAILY PRN MISC Per rx protocol 09/21/20 03:30 10/21/20 03:29 Vancomycin HCl 500 mg/Dextrose 110 ml @ 110 mls/hr Q12H IVPB 09/24/20 20:00 09/29/20 19:59 09/25/20 08:48 Isabelle Degroot MD Sep 25, 2020 11:11"
[2020-09-25] MEDS: Levofloxacin 500mg tab ORAL SCH (11:48)
--- NOTE | 2020-09-25 11:57 | NUR ---
RD ASSESSMENT & RECOMMENDATIONS SEE CARE ACTIVITY FOR COMPLETE ASSESSMENT DAILY ESTIMATED NEEDS: Needs based on Underweight, Critical care, wound/ 49kg 25-35 kcals/kg 5224-4279 total kcals 1.25-2 g protein/kg 61-98 g total protein 25-30 mL/kg 2254-6808 total fluid mLs NUTRITION DIAGNOSIS: Swallowing difficulty R/T respiratory status, dysphagia as evidenced by h/o craniotomy, trach/vent dep, on GT feeds. CURRENT TF: Jevity 1.2 @55ml/hr ENTERAL NUTRITION RECOMMENDATIONS: Jevity 1.2 @ 55ml/hr x 24 hrs to provide 1320ml, 1584kcal, 73g prot, 1065ml free water * As medically appropriate, initiate Jevity 1.2 @ 35ml/hr x 6hrs * Advance 10ml q 4-6 hrs as tolerated to goal * HOB over 30 degrees/ water flush per MD ADDITIONAL RECOMMENDATIONS: * Daily calibrated bedscale wt- wts appear stable * Wound healing: TF rec @ goal will provide 100% RDI add Vit C 250mg QD + ZnSO4 220mg QD x 10 days add Rolan BID w/ TF order * Monitor lytes, replete as needed * Monitor BGs w/ TF (noted elevated, now wnl) .
[2020-09-25 12:00] VITALS: BP 108/58
[2020-09-25] MEDS ORDERED: cefTRIAXone 1 GM in D5W 55 ML IVPB SCH ×2 (12:00→16:00)
--- NOTE | 2020-09-25 12:13 | Consultation ---
History of Present Illness General Chief Complaint: Abnormal Labs Present Illness Allergies: Coded Allergies: ADHESIVE TAPE (Verified Allergy, Unknown, 07/20/20) Uncoded Allergies: TAPE (Allergy, Unknown, 08/07/20) Medication History Scheduled Albuterol Sulfate* (Albuterol Sulfate Hfa*), 2 PUFF INH Q6H, (Reported) Amino Acids/Protein Hydrolys (Pro-Stat Liquid), 30 ML GT DAILY, (Reported) Ascorbic Acid* (Ascorbic Acid*), 500 MG GT DAILY, (Reported) Baclofen* (Baclofen*), 10 MG GT THREE TIMES A DAY, (Reported) Deferasirox (Exjade), 1,080 MG GT DAILY, (Reported) Deferiprone (Ferriprox), 1,000 MG GT Q8HR, (Reported) Levetiracetam* (Levetiracetam*), 500 MG ORAL Q8HR, (Reported) Magnesium Oxide (Magnesium Oxide), 400 MG GT DAILY, (Reported) Metoclopramide Hcl* (Metoclopramide Hcl*), 10 MG GT Q8HR, (Reported) Multivitamins* (Multivitamins*), 1 TAB GT DAILY, (Reported) Polyethylene Glycol 3350* (Polyethylene Glycol 3350*), 17 GM GT BEDTIME, (Reported) Ursodiol (Ursodiol*), 300 MG ORAL TWICE A DAY Zinc Sulfate (Zinc Sulfate*), 220 MG GT DAILY, (Reported) Scheduled PRN Acetaminophen* (Acetaminophen 325MG Tablet*), 650 MG GT Q4H PRN for Mild pain/temp >101F, (Reported) Hydrocodone Bit/Acetaminophen 10-325* ([place] 10-325*), 1 TAB ORAL Q4H PRN for For Pain, (Reported) Hydroxyurea* (HYDREA 500mg*), 500 MG GT DAILY PRN for SICKLE CELL ANEMIA , (Reported) Discontinued Medications Acetaminophen* (Acetaminophen 325MG Tablet*), 325 MG GT Q6HR, (Reported) Discontinued Reason: discontinued med Chlorhexidine Gluconate* (Hibiclens*), 15 ML TP BID, (Reported) Discontinued Reason: discontinued med Famotidine* (Pepcid 20mg tablet*), 20 MG GT DAILY, (Reported) Discontinued Reason: discontinued med Folic Acid* (Folic Acid*), 1 MG GT DAILY, (Reported) Discontinued Reason: MD discontinued med Hydromorphone Hcl (Hydromorphone Hcl), 2 MG GT for Moderate Pain (Pain Scale 4- 6), (Reported) Discontinued Reason: MD discontinued med Ipratropium [place] (Atrovent Hfa), 2 PUFFS IH Q3HR, (Reported) Discontinued Reason: MD discontinued med Ipratropium [place] (Atrovent Hfa), 12.9 GM IH Q6HR PRN for Shortness of Breath, (Reported) Discontinued Reason: MD discontinued med Levetiracetam (Keppra), 1,000 MG GT DAILY, (Reported) Discontinued Reason: Medication dose changed Levetiracetam (Keppra), 500 MG NG Q12HR Discontinued Reason: Medication dose changed Metoclopramide Hcl (Metoclopramide Hcl*), 10 MG IVP Q8H PRN Discontinued Reason: Medication dose changed Morphine 10mg/5ml Oral Soln* (Morphine 10mg/5ml Oral Soln*), 4 MG GT for Severe Pain (Pain Scale 7-10), (Reported) Discontinued Reason: MD discontinued med [Pantoprazole], 40 MG IVP EVERY 12 HOURS Discontinued Reason: MD discontinued med Patient History Healthcare decision maker Resuscitation status Advanced Directive on File Physical Exam Last 24 Hour Vital Signs Date Time Temp Pulse Resp B/P (MAP) Pulse Ox O2 Delivery O2 Flow Rate FiO2 09/25/20 11:20 75 14 40 09/25/20 09:11 71 16 40 09/25/20 08:00 73 09/25/20 08:00 40 09/25/20 08:00 Mechanical Ventilator 09/25/20 08:00 97.8 72 20 123/62 (82) 100 09/25/20 07:25 69 17 40 09/25/20 05:06 77 16 40 09/25/20 04:00 97.4 76 18 113/61 (78) 100 09/25/20 04:00 40 09/25/20 04:00 80 09/25/20 04:00 Mechanical Ventilator 09/25/20 03:19 78 17 40 09/25/20 00:48 74 16 40 09/25/20 00:00 85 09/25/20 00:00 69 18 110/60 (77) 09/25/20 00:00 Mechanical Ventilator 09/24/20 22:57 82 15 40 09/24/20 21:15 77 15 40 09/24/20 20:00 97.4 69 18 102/58 (73) 100 09/24/20 20:00 Mechanical Ventilator 09/24/20 20:00 40 09/24/20 20:00 67 09/24/20 19:00 84 16 40 09/24/20 18:48 75 15 40 09/24/20 17:20 Mechanical Ventilator 09/24/20 17:11 76 16 40 09/24/20 17:10 97.5 68 18 103/56 (72) 100 09/24/20 16:00 40 09/24/20 16:00 Mechanical Ventilator 09/24/20 16:00 97.5 76 18 108/68 (81) 100 09/24/20 15:31 78 09/24/20 15:10 84 16 40 09/24/20 13:10 87 16 40 Intake and Output 09/24/20 09/25/20 19:00 07:00 Intake Total 1374.998 ml 910 ml Output Total 700 ml 1300 ml Balance 674.998 ml -390 ml Intake Free Water 140 ml 140 ml IV Total 629.998 ml 165 ml Tube Feeding 605 ml 605 ml Output Urine Total 700 ml 1300 ml Laboratory Tests Test 09/25/20 04:00 White Blood Count 20.2 K/UL (4.8-10.8) H Red Blood Count 1.87 M/UL (4.70-6.10) L Hemoglobin 5.9 G/DL (14.2-18.0) *L Hematocrit 17.9 % (42.0-52.0) L Mean Corpuscular Volume 96 FL (80-99) Mean Corpuscular Hemoglobin 31.6 PG (27.0-31.0) H Mean Corpuscular Hemoglobin Concent 33.0 G/DL (32.0-36.0) Red Cell Distribution Width 16.0 % (11.6-14.8) H Platelet Count 167 K/UL (150-450) Mean Platelet Volume 8.9 FL (6.5-10.1) Neutrophils (%) (Auto) % (45.0-75.0) Lymphocytes (%) (Auto) % (20.0-45.0) Monocytes (%) (Auto) % (1.0-10.0) Eosinophils (%) (Auto) % (0.0-3.0) Basophils (%) (Auto) % (0.0-2.0) Differential Total Cells Counted 100 Neutrophils % (Manual) 78 % (45-75) H Lymphocytes % (Manual) 11 % (20-45) L Monocytes % (Manual) 7 % (1-10) Eosinophils % (Manual) 4 % (0-3) H Basophils % (Manual) 0 % (0-2) Band Neutrophils 0 % (0-8) Platelet Estimate Adequate Platelet Morphology Normal Hypochromasia 2+ Anisocytosis 1+ Macrocytosis 1+ Reticulocyte Count 3.6 % (0.5-2.0) H Sodium Level 145 MMOL/L (136-145) Potassium Level 4.2 MMOL/L (3.5-5.1) Chloride Level 115 MMOL/L (98-107) H Carbon Dioxide Level 23 MMOL/L (21-32) Anion Gap 7 mmol/L (5-15) Blood Urea Nitrogen 24 mg/dL (7-18) H Creatinine 0.8 MG/DL (0.55-1.30) Estimat Glomerular Filtration Rate > 60 mL/min (>60) Glucose Level 97 MG/DL (74-106) # Calcium Level 8.1 MG/DL (8.5-10.1) L Total Bilirubin 0.9 MG/DL (0.2-1.0) Aspartate Amino Transf (AST/SGOT) 76 U/L (15-37) H Alanine Aminotransferase (ALT/SGPT) 97 U/L (12-78) H Alkaline Phosphatase 288 U/L (46-116) H Total Protein 5.7 G/DL (6.4-8.2) L Albumin 2.3 G/DL (3.4-5.0) L Globulin 3.4 g/dL Albumin/Globulin Ratio 0.7 (1.0-2.7) L Height (Feet): 6 Weight (Pounds): 150 Medications Current Medications Medications (Trade) Dose Ordered Sig/Piedad Route PRN Reason Start Time Stop Time Status Last Admin Dose Admin Acetaminophen (Tylenol) 650 mg Q4H PRN GT Temp >100.5 09/21/20 08:45 10/21/20 08:44 Acetaminophen (Tylenol) 650 mg Q4H PRN GT pain scale 1-6 09/21/20 09:30 10/21/20 09:29 09/25/20 01:03 Ceftriaxone Sodium 1 gm/ Dextrose 55 ml @ 110 mls/hr Q24H IVPB 09/25/20 16:00 10/02/20 15:59 Chlorhexidine Gluconate (Christy-Hex 2%) 1 applic DAILY@2000 TOPIC 09/22/20 20:00 12/21/20 19:59 09/24/20 20:46 Levetiracetam (Keppra) 750 mg Q12HR ORAL 09/21/20 09:00 10/21/20 08:59 09/25/20 08:48 Levofloxacin (Levaquin) 500 mg DAILY ORAL 09/25/20 11:45 10/02/20 11:44 09/25/20 11:48 Morphine Sulfate (Morphine Sulfate) 2 mg Q4H PRN IVP Severe Pain (Pain Scale 7-10) 09/21/20 09:30 09/28/20 09:29 09/23/20 20:34 Assessment/Plan Assessment/Plan: Hematology Consultation REFrederick MD: Celestina Celaya 09/25/2020 RFC: SS Crisis and leukocytosis persistent ID 35-year-old male well known to me, has been sent in from [facility] after increased fever and increased heart rate, was recently here. Patient had prior history of sickle cell disease. Previously had craniotomy for intracranial hemorrhage and is been chronically ventilator dependent. Patient had been having fever up to 102F at the facility. Had been noted to have heart rate approximately 150. Prior history of seizures as well as hematochromatosis from prior transfusions. Ferritin noted to be elevated, heme was consulted for further eval, I last saw him approx 1 mo ago and hgb now 7.3, wbc 20k, on CTX/levaq Coded Allergies: ADHESIVE TAPE (Verified Allergy, Unknown, 07/20/20) COVID-19 Screening Contact w/high risk pt: Yes Experienced COVID-19 symptoms?: Yes Patient History Past Medical History: see triage record Past Surgical History: other - tracheotomy Reviewed Nursing Documentation: PMH: Agreed; PSxH: Agreed Review of Systems All Other Systems: limited - Review of systems: Review systems is limited by patient's being a poor historian Physical Exam General: alert, Chronically Ill Head: other - Large right-sided craniotomy defect well-heale ++, tracheotomy/vent Respiratory: crackles, rales, other - right side chest wall tenderness Cardiovascular: tachycardia Gastrointestinal: normal inspection, soft [place]: decreased range of motion, other - atrophic, motor weakness Neurologic: alert, motor weakness, other - left hemineglect Psychiatric: normal inspection Skin: no rash Labs: reviewed Imaging: noted in emr Assessment and Recs # Sickle cell crisis noted upon admission, with hx of sickle cell anemia --> hgb 6.5-->7.1-->6.6->>>>7.3-->7.1 -->6.7-->6.5-->6.8->7-->7.2->6.5-->6.7-->6.5->5.3-->7.8->8.4-->8.5->7.6->>>>5.9 --> 1 unit prbc on 07/23, 1 unit 08/27, 2 units prbc 08/31 --> ivfs have been started --> anemia panel ordered, with elev ferritin --> recommend to consider hydrea when discharged if stable --> likely does have mild hemolysis --> hgb electrophoresis show evidence of sickle cell trait --> FLOW CYTOMETRY IS NEGATIVE (prior admission) # Hyperferritinemia with elevated ferritin that was noted --> likely consider exjade once discharged though at this time not limiting --> ferritin can >2000 with recurrent transfusions --> trend over time, for EOD observe --> 08/30 deferasirox and ferriprox started (continue these for iron overload) # Leukocytosis poa with Severe sepsisdue to pna --> ABX ctx/levaquin --> wbc 25-->31-->29-->25-->37--->31-->24->19-->18-->17-->18->>20 --> FLOW CYTOMETRY NEG # Respiratory failure s/p Ventilator dependent --> as per pulm, vent adjustment # Port-A-Cath in place --> s/p abx --> s/p permacath removal # Transaminitis -->liver function elevated --> per gi # Dt ppx scds The timing of this note does not necessarily reflect the time of the patient was seen. Greatly appreciate consultation. Roshan Castillo MD Sep 25, 2020 12:13
--- NOTE | 2020-09-25 13:30 | NUR ---
NURSE NOTES: 1 Unit of PRBC transfused, no s/s transfusion reaction noted.
--- NOTE | 2020-09-25 14:24 | NUR ---
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 98.2 HR 70 RR 23 B/P 108/58 AC 12 TV 550 FIO2 405 PEEP 5 WBC 20.2 H/H 5.9/17.9 RETIC 3.6 IS: CEFTRIAXONE IV LEVAQUIN GT KEPPRA GT TRANSFUSE RBC STEP DOWN STATUS
--- NOTE | 2020-09-25 14:28 | NUR ---
TRUCK SUPERVISOR NOTES CLINICALS REVIEWED AND FAXED.
[2020-09-25 16:00] VITALS: BP 118/69
--- NOTE | 2020-09-25 17:02 | Surgery Progress Note ---
Surgery Progress Note Subjective Additional Comments PRBC today labs noted exam stable on vent Objective Last 24 Hour Vital Signs Date Time Temp Pulse Resp B/P (MAP) Pulse Ox O2 Delivery O2 Flow Rate FiO2 09/25/20 15:15 73 13 40 09/25/20 13:20 81 16 40 09/25/20 12:00 40 09/25/20 12:00 Mechanical Ventilator 09/25/20 12:00 98.2 70 23 108/58 (75) 100 09/25/20 12:00 54 09/25/20 11:20 75 14 40 09/25/20 09:11 71 16 40 09/25/20 08:00 73 09/25/20 08:00 40 09/25/20 08:00 Mechanical Ventilator 09/25/20 08:00 97.8 72 20 123/62 (82) 100 09/25/20 07:25 69 17 40 09/25/20 05:06 77 16 40 09/25/20 04:00 97.4 76 18 113/61 (78) 100 09/25/20 04:00 40 09/25/20 04:00 80 09/25/20 04:00 Mechanical Ventilator 09/25/20 03:19 78 17 40 09/25/20 00:48 74 16 40 09/25/20 00:00 85 09/25/20 00:00 69 18 110/60 (77) 09/25/20 00:00 Mechanical Ventilator 09/24/20 22:57 82 15 40 09/24/20 21:15 77 15 40 09/24/20 20:00 97.4 69 18 102/58 (73) 100 09/24/20 20:00 Mechanical Ventilator 09/24/20 20:00 40 09/24/20 20:00 67 09/24/20 19:00 84 16 40 09/24/20 18:48 75 15 40 09/24/20 17:20 Mechanical Ventilator 09/24/20 17:11 76 16 40 09/24/20 17:10 97.5 68 18 103/56 (72) 100 I&O Intake and Output 09/24/20 09/25/20 19:00 07:00 Intake Total 1374.998 ml 965 ml Output Total 700 ml 1300 ml Balance 674.998 ml -335 ml Intake Free Water 140 ml 140 ml IV Total 629.998 ml 165 ml Tube Feeding 605 ml 660 ml Output Urine Total 700 ml 1300 ml Dressing: saturated Cardiovascular: RSR Respiratory: decreased breath sounds Abdomen: non-tender, present bowel sounds Extremities: no edema, no tenderness, no cyanosis Laboratory Tests Test 09/25/20 04:00 White Blood Count 20.2 K/UL (4.8-10.8) H Red Blood Count 1.87 M/UL (4.70-6.10) L Hemoglobin 5.9 G/DL (14.2-18.0) *L Hematocrit 17.9 % (42.0-52.0) L Mean Corpuscular Volume 96 FL (80-99) Mean Corpuscular Hemoglobin 31.6 PG (27.0-31.0) H Mean Corpuscular Hemoglobin Concent 33.0 G/DL (32.0-36.0) Red Cell Distribution Width 16.0 % (11.6-14.8) H Platelet Count 167 K/UL (150-450) Mean Platelet Volume 8.9 FL (6.5-10.1) Neutrophils (%) (Auto) % (45.0-75.0) Lymphocytes (%) (Auto) % (20.0-45.0) Monocytes (%) (Auto) % (1.0-10.0) Eosinophils (%) (Auto) % (0.0-3.0) Basophils (%) (Auto) % (0.0-2.0) Differential Total Cells Counted 100 Neutrophils % (Manual) 78 % (45-75) H Lymphocytes % (Manual) 11 % (20-45) L Monocytes % (Manual) 7 % (1-10) Eosinophils % (Manual) 4 % (0-3) H Basophils % (Manual) 0 % (0-2) Band Neutrophils 0 % (0-8) Platelet Estimate Adequate Platelet Morphology Normal Hypochromasia 2+ Anisocytosis 1+ Macrocytosis 1+ Reticulocyte Count 3.6 % (0.5-2.0) H Sodium Level 145 MMOL/L (136-145) Potassium Level 4.2 MMOL/L (3.5-5.1) Chloride Level 115 MMOL/L (98-107) H Carbon Dioxide Level 23 MMOL/L (21-32) Anion Gap 7 mmol/L (5-15) Blood Urea Nitrogen 24 mg/dL (7-18) H Creatinine 0.8 MG/DL (0.55-1.30) Estimat Glomerular Filtration Rate > 60 mL/min (>60) Glucose Level 97 MG/DL (74-106) # Calcium Level 8.1 MG/DL (8.5-10.1) L Total Bilirubin 0.9 MG/DL (0.2-1.0) Aspartate Amino Transf (AST/SGOT) 76 U/L (15-37) H Alanine Aminotransferase (ALT/SGPT) 97 U/L (12-78) H Alkaline Phosphatase 288 U/L (46-116) H Total Protein 5.7 G/DL (6.4-8.2) L Albumin 2.3 G/DL (3.4-5.0) L Globulin 3.4 g/dL Albumin/Globulin Ratio 0.7 (1.0-2.7) L Plan Problems: (1) Sickle cell anemia (2) Sickle cell crisis (3) Tachycardia (4) Sepsis Assessment & Plan: 35-year-old male sickle cell multiple comorbidities history of craniotomy trach feeding tube prior port infected removed see prior admission and consult and operative notes. Currently presents with significant leukocytosis fevers hypotension in intensive care unit wound site evaluated unlikely etiology. Trach evaluated may consider changing. LFTs noted elevated. Ultrasound ordered pending results trend labs continue IV antibiotics appreciate infectious disease input will follow with recommendations thank you for let me participate in patient's care KUB and US noted labs reviewed transfuse prbc prn trach change peg changed line out picc placed persistent wbc h/h noted anemia ss better since new trach Shiley [address] secretions manageable Trach replaced at bedside 925 for malpositioning it was identified he does have a false track as well. Will ensure trach is in correct positioning daily every shift trach not stable removed and intubated 08/25 on ett vent will need trach revision discussed with mother and medical teams trach and picc s/p trach revision 6 f dxlt last admission trach stable vent stable wbc persistent again pulmonary arteries: Evaluation for pulmonary embolus is limited due to breathing motion artifact. No central pulmonary emboli are identified. Aorta: No acute findings. No thoracic aortic aneurysm. Lungs: There are moderately consolidating infiltrates identified in both lower lobes dependently with mild additional patchy infiltrates dependently in both upper lobes. The findings are consistent with bilateral nonspecific pneumonia. Aspiration pneumonia could give this appearance. The infiltrates are only somewhat typical of Covid 19. Confidence is immediate. Pleural space: Unremarkable. No significant effusion. No pneumothorax. Heart: Unremarkable. No cardiomegaly. No significant pericardial effusion. No evidence of RV dysfunction. Bones/joints: No acute fracture. No dislocation. Soft tissues: Unremarkable. Lymph nodes: Unremarkable. No enlarged lymph nodes. Tubes, lines and devices: There is a tracheostomy tube in good position. IMPRESSION: 1. There are moderately consolidating infiltrates identified in both lower lobes dependently with mild additional patchy infiltrates dependently in both upper lobes. The findings are consistent with bilateral nonspecific pneumonia. Aspiration pneumonia could give this appearance. The infiltrates are only somewhat typical of Covid 19. Confidence is immediate. 2. Evaluation for pulmonary embolus is limited due to breathing motion artifact. No central pulmonary emboli are identified. The liver is homogeneous. We cannot identify a normal spleen. There is dense crescentic calcification in the left upper quadrant at the expected location of the spleen. Gallbladder is absent. The pancreas is unremarkable. Adrenals are normal in morphology. There is a small punctate cortical calcification left kidney. No hydronephrosis bilaterally There is a G-tube in place. Gas-filled bowel loops identified throughout the abdomen and pelvis. No discrete transition point or obstruction. Appendix partially visualized. There is some free fluid in the pelvis. There is no free air. There is a mildly prominent lymph nodes noted in the upper to mid retroperitoneum noted of undetermined etiology or significance. Rivera catheter noted in the bladder. The reservoir for the penile prosthesis is identified in the left lower pelvis. There is a right femoral venous catheter in place. Diffuse sclerosis of the bony pelvis and hips noted of undetermined etiology. IMPRESSION: BILATERAL LOWER LOBE PNEUMONIAS. ALSO SOME HAZY INFILTRATES IN THE UPPER LOBES. A NORMAL SPLEEN IS NOT VISUALIZED. THERE IS A DENSE CRESCENTIC CALCIFICATION LEFT UPPER QUADRANT AT THE EXPECTED LOCATION OF THE SPLEEN. 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 PUNCTATE CORTICAL CALCIFICATION LEFT KIDNEY. NO HYDRONEPHROSIS. PROMINENT LYMPH NODES IN THE UPPER TO MID RETROPERITONEUM OF UNDETERMINED ETIOLOGY OR SIGNIFICANCE. G-TUBE, RIVERA CATHETER, RIGHT FEMORAL CATHETER AND PENILE PROSTHESIS NOTED IN PLACE. MILD DIFFUSE SCLEROSIS OF THE BONY PELVIS AND BOTH HIPS OF UNDETERMINED ETIOLOGY. QUESTION HISTORY OF RENAL OSTEODYSTROPHY. There is a large craniectomy defect in the right frontal temporal region. Diffuse age-related volume loss demonstrated. 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 No definite acute infarct seen. There is no hemorrhage, mass effect or shift. Ventricles and cisterns as well as brainstem and posterior fossa appear unremarkable. The sellar region is normal. Sinuses, mastoid air cells and bony calvarium appear intact. IMPRESSION: Large right frontotemporal craniectomy defect. 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 No definite acute intracranial abnormality. (5) Pneumonia (6) Severe sepsis (7) Port-A-Cath in place (8) Acute prerenal azotemia (9) Status post craniectomy (10) Decubitus skin ulcer Assessment & Plan: SACRUM- STAGE II PRESSURE ULCER MEASURING 1.5X0.5X0.2CM. WOUND BED PINK WITH MINIMAL SERO-SANGUINEOUS DRAINAGE. RECOMMEND-CLEAN WITH SALINE. PAT DRY. APPLY CALAZINE AND COVER WITH OPTIFOAM DRESSING. REPLACE DAILY. LEFT HEEL- STAGE I PRESSURE ULCER. 4X4X0.1CM NON-BLANCHABLE ERYTHEMA NOTED. RECOMMEND-APPLY SKIN CAVILON BARRIER AND COVER WITH OPTIFOAM DRESSING. REPLACE EVERY 3 DAYS. CONTINUE WOUND PREVENTION PROTOCOLS. REPOSITION AT LEAST EVERY 2 HOURS OR TOLERATED OFF-LOAD HEELS WITH PILLOWS Harman Zhao Sep 25, 2020 17:01
[2020-09-25] MEDS ORDERED: D5 1/2NS 1000ml IV ONE (18:11)
[2020-09-25] MEDS ORDERED: Tubing IV Secondary IV ONE (18:11)
[2020-09-25] MEDS ORDERED: NS 275ml ONE (18:11)
--- NOTE | 2020-09-25 19:09 | NUR ---
NURSE HAND-OFF REPORT: Important Events on Shift: 1 unit PRBC Patient Status: stable Diet: Jevity 1.2 @ 55ml/h Pending Orders: na Pending Results/Labs:na Pending MD notification:na Latest Vital Signs: Temperature 97.5 , Pulse 71 , B/P 118 /69 , Respiratory Rate 13 , O2 SAT 100 , Mechanical Ventilator, O2 Flow Rate . Vital Sign Comment: stable EKG Rhythm: Sinus Rhythm Rhythm change?: N Notified?: James Rocha MD Response: Latest Stevens Fall Score: 50 Fall Risk: High Risk Safety Measures: Call light Within Reach, Bed Alarm Zone 2, Side Rails Side Rails x3, Bed position Low and Locked. Fall Precautions: Yellow Socks Yellow Gown Door Sign Patient Fall Education Report given to ARLYN Presley.
--- NOTE | 2020-09-25 19:12 | NUR ---
RESPIRATORY NOTE: Received pt on AC 12, 500VT, 40%, PEEP +5. Pt is trach-dependent w/ a cuffed, Shiley 6 XLT tube. Pt alert/awake, follows commands. Pt occasional combative. B/S carlos. rhonchi, sxn small amounts of thick/thin, pale-yellow secretions. Vent plugged into red outlet, ambubag at bedside. Pt in no apparent distress at this time. Will continue plan of care.
--- NOTE | 2020-09-25 19:13 | NUR ---
NURSE NOTES: Received report from ARLYN Ortiz. Pt awake and alert upon arrival. JAMES. 5-lead EKG shows SR at 61 bpm. On vent with no distress noted saturating 100% at prescribed settings of A/C 12, TV 500, 40% fiO2. G-tube intact with 0 residual note running Jevity 1.2 at 55 cc. Overton draining to gravity. Bed kept in lowest and locked position. Bed alarm on. Will continue to monitor. Addendum: 09/25/20 at 2125 by Keisha Jernigan RN Pt g-tube residual 110 mL. Will lower rate of feeding and recheck.
[2020-09-25 20:00] VITALS: BP 108/59
--- NOTE | 2020-09-25 20:00 | NUR ---
NURSE NOTES: Made aware of frustration towards previous RT and RN due to lack of communication. Pt appears calm at the moment. Created communication board pt can utilize to communicate needs to staff. Pt c/o pain and requests pain medications. D/C Vanco per Dr. Spears. Orders to continue using PICC and made aware of negative blood cultures. Will request repeat CBC for AM from Dr. Castillo.
[2020-09-25] MEDS: Dyna-Hex 2% Top Sol 2oz TOPIC SCH (20:28)
[2020-09-25] MEDS: Morphine Sulfate 2mg/ml Inj(IV/IM USE ONLY) IVP PRN (20:29)
--- NOTE | 2020-09-25 21:24 | NUR ---
NURSE NOTES: Administered PRN for pain of 5/10 IVP. After 30 mins patient still c/o pain. Will continue monitoring.
--- NOTE | 2020-09-25 23:43 | NUR ---
NURSE NOTES: Pt appears to agitated and noncompliant to care. When initiated oral care and vital signs, pt very combative and attempts to throw pulse oximetry at nurse. Vital signs eventually collected. Will monitor.
[2020-09-26] VITALS: BP 107/60
[2020-09-26] MEDS: Morphine Sulfate 2mg/ml Inj(IV/IM USE ONLY) IVP PRN ×2 (01:22→13:06)
[2020-09-26 04:00] VITALS: BP 115/61
--- NOTE | 2020-09-26 04:16 | NUR ---
NURSE NOTES: Pt appears to be more calm and compliant to care when given independence and autonomy to make own decisions / provide own care. Previously pt refuses oral care, but when giving him the option to suction and brush his own teeth under supervision - he will comply. Pt continues to utilize communication board when needing assistance or requesting pain meds. EKG shows Sinus Momo at rest. Will continue to monitor.
[2020-09-26 05:05] LABS: BASOPHILS % (AUTO) 1.1 % (0.0-2.0); EOSINOPHILS % (AUTO) 4.6 % (0.0-3.0); HEMATOCRIT 35.3 % (42.0-52.0); HEMOGLOBIN 12.1 G/DL (14.2-18.0); LYMPHOCYTES % (AUTO) 19.9 % (20.0-45.0); MEAN CORPUSCULAR VOLUME 91 FL (80-99); NEUTROPHILS % (AUTO) 67.4 % (45.0-75.0); PLATELET COUNT 143 K/UL (150-450); RED BLOOD COUNT 3.87 M/UL (4.70-6.10); RED CELL DISTRIBUTION WIDTH 15.1 % (11.6-14.8); WHITE BLOOD COUNT 11.3 K/UL (4.8-10.8)
--- NOTE | 2020-09-26 06:45 | Hematology/Onc Progress Note ---
Assessment/Plan Assessment/Plan Assessment and Recs # Sickle cell crisis noted upon admission, with hx of sickle cell anemia --> hgb 6.5-->7.1-->6.6->>>>7.3-->7.1 -->6.7-->6.5-->6.8->7-->7.2->6.5-->6.7-->6.5->5.3-->7.8->8.4-->8.5->7.6->>>>5.9 --> 1 unit prbc on 07/23, 1 unit 08/27, 2 units prbc 08/31 --> ivfs have been started --> anemia panel ordered, with elev ferritin --> recommend to consider hydrea when discharged if stable --> likely does have mild hemolysis --> hgb electrophoresis show evidence of sickle cell trait --> FLOW CYTOMETRY IS NEGATIVE (prior admission) # Hyperferritinemia with elevated ferritin that was noted --> likely consider exjade once discharged though at this time not limiting --> ferritin can >2000 with recurrent transfusions --> trend over time, for EOD observe --> 08/30 deferasirox and ferriprox started (continue these for iron overload) # Leukocytosis poa with Severe sepsisdue to pna --> ABX ctx/levaquin --> wbc 25-->31-->29-->25-->37--->31-->24->19-->18-->17-->18->>20 --> FLOW CYTOMETRY NEG # Respiratory failure s/p Ventilator dependent --> as per pulm, vent adjustment # Port-A-Cath in place --> s/p abx --> s/p permacath removal # Transaminitis -->liver function elevated --> per gi # Dt ppx scds The timing of this note does not necessarily reflect the time of the patient was seen. Greatly appreciate consultation. Subjective Constitutional: Denies: no symptoms, chills, fever, malaise, weakness, other HEENT: Denies: no symptoms, eye pain, blurred vision, tearing, double vision, ear pain, ear discharge, nose pain, nose congestion, throat pain, throat swelling, mouth pain, mouth swelling, other Cardiovascular: Denies: no symptoms, chest pain, edema, irregular heart rate, lightheadedness, palpitations, syncope, other Respiratory: Denies: no symptoms, cough, shortness of breath, SOB with excertio n, SOB at rest, sputum, wheezing, other Genitourinary: Denies: no symptoms, burning, discharge, frequency, flank pain, hematuria, incontinence, pain, urgency, other Neurologic/Psychiatric: Denies: no symptoms, anxiety, depressed, emotional problems, headache, numbness, paresthesia, pre-existing deficit, seizure, tingling, tremors, weakness, other Endocrine: Denies: no symptoms, excessive sweating, flushing, intolerance to cold, intolerance to heat, increased hunger, increased thirst, increased urine, unexplained weight gain, unexplained weight loss, other Allergies: Coded Allergies: ADHESIVE TAPE (Verified Allergy, Unknown, 07/20/20) Uncoded Allergies: TAPE (Allergy, Unknown, 08/07/20) Subjective 09/26 mychal Valdes rn this am, hgb 12, and needs to be repeated, cbc pending Objective Objective Current Medications Medications (Trade) Dose Ordered Sig/Piedad Route PRN Reason Start Time Stop Time Status Last Admin Dose Admin Acetaminophen (Tylenol) 650 mg Q4H PRN GT Temp >100.5 09/21/20 08:45 10/21/20 08:44 Acetaminophen (Tylenol) 650 mg Q4H PRN GT pain scale 1-6 09/21/20 09:30 10/21/20 09:29 09/25/20 01:03 Ceftriaxone Sodium 1 gm/ Dextrose 55 ml @ 110 mls/hr Q24H IVPB 09/25/20 16:00 10/02/20 15:59 09/25/20 17:00 Chlorhexidine Gluconate (Christy-Hex 2%) 1 applic DAILY@1999 TOPIC 09/22/20 20:00 12/21/20 19:59 09/25/20 20:28 Levetiracetam (Keppra) 750 mg Q12HR ORAL 09/21/20 09:00 10/21/20 08:59 09/25/20 20:28 Levofloxacin (Levaquin) 500 mg DAILY ORAL 09/25/20 11:45 10/02/20 11:44 09/25/20 11:48 Morphine Sulfate (Morphine Sulfate) 2 mg Q4H PRN IVP Severe Pain (Pain Scale 7-10) 09/21/20 09:30 09/28/20 09:29 09/26/20 01:22 Last 24 Hour Vital Signs Date Time Temp Pulse Resp B/P (MAP) Pulse Ox O2 Delivery O2 Flow Rate FiO2 09/26/20 05:17 76 12 40 09/26/20 04:00 40 09/26/20 04:00 49 09/26/20 04:00 Mechanical Ventilator 09/26/20 04:00 97.9 54 16 115/61 (79) 100 09/26/20 03:05 70 17 40 09/26/20 01:52 98.1 09/26/20 01:05 63 13 40 09/26/20 00:00 98.1 60 15 107/60 (76) 100 09/26/20 00:00 Mechanical Ventilator 09/26/20 00:00 40 09/25/20 23:42 59 09/25/20 23:11 61 12 40 09/25/20 20:59 98.0 09/25/20 20:36 56 14 40 09/25/20 20:05 59 09/25/20 20:05 40 09/25/20 20:00 Mechanical Ventilator 09/25/20 20:00 Mechanical Ventilator 09/25/20 20:00 98.0 61 14 108/59 (75) 100 09/25/20 19:09 73 13 40 09/25/20 17:15 71 13 40 09/25/20 16:00 97.5 73 20 118/69 (85) 100 09/25/20 16:00 71 09/25/20 16:00 Mechanical Ventilator 09/25/20 16:00 40 09/25/20 15:15 73 13 40 09/25/20 13:20 81 16 40 09/25/20 12:00 40 09/25/20 12:00 Mechanical Ventilator 09/25/20 12:00 98.2 70 23 108/58 (75) 100 09/25/20 12:00 54 09/25/20 11:20 75 14 40 09/25/20 09:11 71 16 40 09/25/20 08:00 73 09/25/20 08:00 40 09/25/20 08:00 Mechanical Ventilator 09/25/20 08:00 97.8 72 20 123/62 (82) 100 09/25/20 07:25 69 17 40 09/25/20 05:06 77 16 40 09/25/20 04:00 97.4 76 18 113/61 (78) 100 09/25/20 04:00 40 09/25/20 04:00 80 09/25/20 04:00 Mechanical Ventilator 09/25/20 03:19 78 17 40 09/25/20 00:48 74 16 40 09/25/20 00:00 85 09/25/20 00:00 69 18 110/60 (77) 09/25/20 00:00 Mechanical Ventilator 09/24/20 22:57 82 15 40 09/24/20 21:15 77 15 40 09/24/20 20:00 97.4 69 18 102/58 (73) 100 09/24/20 20:00 Mechanical Ventilator 09/24/20 20:00 40 09/24/20 20:00 67 09/24/20 19:00 84 16 40 09/24/20 18:48 75 15 40 09/24/20 17:20 Mechanical Ventilator 09/24/20 17:11 76 16 40 09/24/20 17:10 97.5 68 18 103/56 (72) 100 09/24/20 16:00 40 09/24/20 16:00 Mechanical Ventilator 09/24/20 16:00 97.5 76 18 108/68 (81) 100 09/24/20 15:31 78 09/24/20 15:10 84 16 40 09/24/20 13:10 87 16 40 09/24/20 12:00 Mechanical Ventilator 09/24/20 12:00 40 09/24/20 12:00 97.5 81 18 97/65 (76) 100 09/24/20 11:50 79 09/24/20 11:10 88 15 40 09/24/20 09:10 82 15 40 09/24/20 08:00 98.1 87 20 106/43 (64) 100 09/24/20 08:00 Mechanical Ventilator 09/24/20 08:00 40 09/24/20 07:45 98 09/24/20 07:15 108 15 40 Intake and Output 09/25/20 09/26/20 19:00 07:00 Intake Total 1260 ml 570 ml Output Total 1400 ml Balance -140 ml 570 ml Intake Free Water 130 ml 200 ml IV Total 220 ml Tube Feeding 660 ml 370 ml Blood Product 250 ml Output Urine Total 1400 ml # Bowel Movements 3 3 Labs Test 09/23/20 10:00 09/24/20 04:40 09/25/20 04:00 09/26/20 04:00 White Blood Count 22.9 K/UL (4.8-10.8) 20.6 K/UL (4.8-10.8) 20.2 K/UL (4.8-10.8) 11.3 K/UL (4.8-10.8) Red Blood Count 2.08 M/UL (4.70-6.10) 1.96 M/UL (4.70-6.10) 1.87 M/UL (4.70-6.10) 3.87 M/UL (4.70-6.10) Hemoglobin 6.5 G/DL (14.2-18.0) 6.1 G/DL (14.2-18.0) 5.9 G/DL (14.2-18.0) 12.1 G/DL (14.2-18.0) Hematocrit 20.5 % (42.0-52.0) 19.2 % (42.0-52.0) 17.9 % (42.0-52.0) 35.3 % (42.0-52.0) Mean Corpuscular Volume 98 FL (80-99) 98 FL (80-99) 96 FL (80-99) 91 FL (80- 99) Mean Corpuscular Hemoglobin 31.2 PG (27.0-31.0) 31.4 PG (27.0-31.0) 31.6 PG (27.0-31.0) 31.3 PG (27.0-31.0) Mean Corpuscular Hemoglobin Concent 31.8 G/DL (32.0-36.0) 32.0 G/DL (32.0-36.0) 33.0 G/DL (32.0-36.0) 34.3 G/DL (32.0-36.0) Red Cell Distribution Width 16.4 % (11.6-14.8) 16.4 % (11.6-14.8) 16.0 % (11.6-14.8) 15.1 % (11.6-14.8) Platelet Count 233 K/UL (150-450) 205 K/UL (150-450) 167 K/UL (150-450) 143 K/UL (150-450) Mean Platelet Volume 7.9 FL (6.5-10.1) 8.2 FL (6.5-10.1) 8.9 FL (6.5-10.1) 8.4 FL (6.5-10.1) Neutrophils (%) (Auto) % (45.0-75.0) % (45.0-75.0) % (45.0-75.0) 67.4 % (45.0-75.0) Lymphocytes (%) (Auto) % (20.0-45.0) % (20.0-45.0) % (20.0-45.0) 19.9 % (20.0-45.0) Monocytes (%) (Auto) % (1.0-10.0) % (1.0-10.0) % (1.0-10.0) 7.0 % (1.0-10.0) Eosinophils (%) (Auto) % (0.0-3.0) % (0.0-3.0) % (0.0-3.0) 4.6 % (0.0-3.0) Basophils (%) (Auto) % (0.0-2.0) % (0.0-2.0) % (0.0-2.0) 1.1 % (0.0-2.0) Differential Total Cells Counted 100 100 100 Neutrophils % (Manual) 84 % (45-75) 89 % (45-75) 78 % (45-75) Lymphocytes % (Manual) 9 % (20-45) 6 % (20-45) 11 % (20-45) Monocytes % (Manual) 4 % (1-10) 3 % (1-10) 7 % (1-10) Eosinophils % (Manual) 3 % (0-3) 1 % (0-3) 4 % (0-3) Basophils % (Manual) 0 % (0-2) 1 % (0-2) 0 % (0-2) Band Neutrophils 0 % (0-8) 0 % (0-8) 0 % (0-8) Platelet Estimate Adequate Adequate Adequate Platelet Morphology Normal Normal Normal Hypochromasia 1+ 2+ Anisocytosis 1+ 1+ Macrocytosis 1+ 1+ Sodium Level 140 MMOL/L (136-145) 137 MMOL/L (136-145) 145 MMOL/L (136-145) Potassium Level 3.6 MMOL/L (3.5-5.1) 3.8 MMOL/L (3.5-5.1) 4.2 MMOL/L (3.5-5.1) Chloride Level 112 MMOL/L (98-107) 109 MMOL/L (98-107) 115 MMOL/L (98-107) Carbon Dioxide Level 20 MMOL/L (21-32) 20 MMOL/L (21-32) 23 MMOL/L (21-32) Anion Gap 8 mmol/L (5-15) 8 mmol/L (5-15) 7 mmol/L (5-15) Blood Urea Nitrogen 30 mg/dL (7-18) 22 mg/dL (7-18) 24 mg/dL (7-18) Creatinine 1.0 MG/DL (0.55-1.30) 0.9 MG/DL (0.55-1.30) 0.8 MG/DL (0.55-1.30) Estimat Glomerular Filtration Rate > 60 mL/min (>60) > 60 mL/min (>60) > 60 mL/min (>60) Glucose Level 435 MG/DL (74-106) 453 MG/DL (74-106) 97 MG/DL (74-106) Calcium Level 8.0 MG/DL (8.5-10.1) 8.0 MG/DL (8.5-10.1) 8.1 MG/DL (8.5-10.1) Red Blood Cell Morphology Normal Total Bilirubin 0.9 MG/DL (0.2-1.0) 0.9 MG/DL (0.2-1.0) Aspartate Amino Transf (AST/SGOT) 82 U/L (15-37) 76 U/L (15-37) Alanine Aminotransferase (ALT/SGPT) 108 U/L (12-78) 97 U/L (12-78) Alkaline Phosphatase 286 U/L (46-116) 288 U/L (46-116) Total Protein 6.2 G/DL (6.4-8.2) 5.7 G/DL (6.4-8.2) Albumin 2.3 G/DL (3.4-5.0) 2.3 G/DL (3.4-5.0) Globulin 3.9 g/dL 3.4 g/dL Albumin/Globulin Ratio 0.6 (1.0-2.7) 0.7 (1.0-2.7) Random Vancomycin Level 9.9 ug/mL Reticulocyte Count 3.6 % (0.5-2.0) Height (Feet): 6 Weight (Pounds): 150 Objective Physical Exam General: alert, Chronically Ill Head: other - Large right-sided craniotomy defect well-heale ++, tracheotomy/vent Respiratory: crackles, rales, other - right side chest wall tenderness Cardiovascular: tachycardia Gastrointestinal: normal inspection, soft Musk: decreased range of motion, other - atrophic, motor weakness Neurologic: alert, motor weakness, other - left hemineglect Psychiatric: normal inspection Skin: no rash Roshan Castillo MD Sep 26, 2020 06:45
--- NOTE | 2020-09-26 06:48 | NUR ---
NURSE NOTES: Variation in AM lab results compared to last draw. Request repeat CBC from Dr. Castillo. Sent down to lab and pending results.
--- NOTE | 2020-09-26 06:50 | NUR ---
NURSE HAND-OFF REPORT: Important Events on Shift: no change Patient Status: stable Diet: Jevity 1.2 Pending Orders: N Pending Results/Labs: Y - CBC Pending MD notification: N Latest Vital Signs: Temperature 97.9 , Pulse 76 , B/P 115 /61 , Respiratory Rate 12 , O2 SAT 100 , Mechanical Ventilator, O2 Flow Rate . Vital Sign Comment: WNL EKG Rhythm: Rhythm change?: MD Notified?: MD Response: Latest Stevens Fall Score: 50 Fall Risk: High Risk Safety Measures: Call light Within Reach, Bed Alarm Zone 1, Side Rails Side Rails x3, Bed position Low and Locked. Fall Precautions: Yellow Socks Yellow Gown Door Sign Patient Fall Education Report given to ARLYN Ortiz.
[2020-09-26 07:00] LABS: HEMATOCRIT 25.4 % (42.0-52.0); HEMOGLOBIN 8.4 G/DL (14.2-18.0); MEAN CORPUSCULAR VOLUME 92 FL (80-99); PLATELET COUNT 196 K/UL (150-450); RED BLOOD COUNT 2.75 M/UL (4.70-6.10); RED CELL DISTRIBUTION WIDTH 15.2 % (11.6-14.8)
[2020-09-26 07:04] LABS: WHITE BLOOD COUNT 24.7 K/UL (4.8-10.8)
--- NOTE | 2020-09-26 07:42 | NUR ---
NURSE NOTES: Received report from ARLYN Presley. Patient in bed resting, no active s/s cardiac, respiratory distress noticed at this time. Patient AOx2-3, resistant to care. Trach to vent Shiley 6 AC 12 TV 500 PEEP 5 Fio2 40%. Patient on GT feeding, Jevity 1.2 @ 45, endorsed 100ml residual at night titrate down from 55ml/h. Endorsed second CBC drawn. Overton Catheter draining well to gravity. PICC line on the left upper arm. Bed in lowest position, side rails upx3, call light within reach, bed alarm on, Will continue to monitor.
--- NOTE | 2020-09-26 07:46 | NUR ---
NURSE NOTES: Dr. Castillo at the nursing station, per MD no need to draw for ferritin.
[2020-09-26 08:00] VITALS: BP 122/78
--- NOTE | 2020-09-26 08:00 | NUR ---
NURSE NOTES: Per Dr. Castillo would like to continue deferasirox and deferiprone if hospital pharmacy has the medication. Called pharmacist, med not available at the hospital. Called rasheeda Kirk at [facility]. Addendum: 09/26/20 at 1038 by IRIS MAHAJAN RN [facility] tele : [phone] [facility] tele: [phone]
[2020-09-26] MEDS: Levofloxacin 500mg tab ORAL SCH (08:50)
[2020-09-26] MEDS ORDERED: CEFTRIAXONE1 G2 IV (09:05)
[2020-09-26] MEDS ORDERED: LEVOFLOXACIN500 MG ORAL (09:05)
--- NOTE | 2020-09-26 09:07 | General Progress Note ---
Subjective ROS Limited/Unobtainable: No Constitutional: Reports: malaise, weakness HEENT: Reports: no symptoms Cardiovascular: Reports: no symptoms Respiratory: Reports: sputum Gastrointestinal/Abdominal: Reports: difficulty swallowing Genitourinary: Reports: no symptoms Neurologic/Psychiatric: Reports: pre-existing deficit, seizure Endocrine: Reports: no symptoms Hematologic/Lymphatic: Reports: anemia Allergies: Coded Allergies: ADHESIVE TAPE (Verified Allergy, Unknown, 07/20/20) Uncoded Allergies: TAPE (Allergy, Unknown, 08/07/20) All Systems: reviewed and negative except above Subjective no events. WBC remains elevated. on iv abx. tolerating feeds. no szs. alert and responsive. Objective Last 24 Hour Vital Signs Date Time Temp Pulse Resp B/P (MAP) Pulse Ox O2 Delivery O2 Flow Rate FiO2 09/26/20 07:34 104 09/26/20 07:08 71 16 40 09/26/20 05:17 76 12 40 09/26/20 04:00 40 09/26/20 04:00 49 09/26/20 04:00 Mechanical Ventilator 09/26/20 04:00 97.9 54 16 115/61 (79) 100 09/26/20 03:05 70 17 40 09/26/20 01:52 98.1 09/26/20 01:05 63 13 40 09/26/20 00:00 98.1 60 15 107/60 (76) 100 09/26/20 00:00 Mechanical Ventilator 09/26/20 00:00 40 09/25/20 23:42 59 09/25/20 23:11 61 12 40 09/25/20 20:59 98.0 09/25/20 20:36 56 14 40 09/25/20 20:05 59 09/25/20 20:05 40 09/25/20 20:00 Mechanical Ventilator 09/25/20 20:00 Mechanical Ventilator 09/25/20 20:00 98.0 61 14 108/59 (75) 100 09/25/20 19:09 73 13 40 09/25/20 17:15 71 13 40 09/25/20 16:00 97.5 73 20 118/69 (85) 100 09/25/20 16:00 71 09/25/20 16:00 Mechanical Ventilator 09/25/20 16:00 40 09/25/20 15:15 73 13 40 09/25/20 13:20 81 16 40 09/25/20 12:00 40 09/25/20 12:00 Mechanical Ventilator 09/25/20 12:00 98.2 70 23 108/58 (75) 100 09/25/20 12:00 54 09/25/20 11:20 75 14 40 09/25/20 09:11 71 16 40 Intake and Output 09/25/20 09/26/20 19:00 07:00 Intake Total 1260 ml 570 ml Output Total 1400 ml 1000 ml Balance -140 ml -430 ml Intake Free Water 130 ml 200 ml IV Total 220 ml Tube Feeding 660 ml 370 ml Blood Product 250 ml Output Urine Total 1400 ml 1000 ml # Bowel Movements 3 3 Laboratory Tests 09/26/20 04:00: White Blood Count 11.3H, Red Blood Count 3.87L, Hemoglobin 12.1#L, Hematocrit 35.3#L, Mean Corpuscular Volume 91, Mean Corpuscular Hemoglobin 31.3H, Mean Corpuscular Hemoglobin Concent 34.3, Red Cell Distribution Width 15.1H, Platelet Count 143L, Mean Platelet Volume 8.4, Neutrophils (%) (Auto) 67.4, Lymphocytes (%) (Auto) 19.9L, Monocytes (%) (Auto) 7.0, Eosinophils (%) (Auto) 4.6H, Basophils (%) (Auto) 1.1 09/26/20 06:00: White Blood Count 24.7#*H, Red Blood Count 2.75L, Hemoglobin 8.4#L, Hematocrit 25.4L, Mean Corpuscular Volume 92, Mean Corpuscular Hemoglobin 30.7, Mean Corpuscular Hemoglobin Concent 33.3, Red Cell Distribution Width 15.2H, Platelet Count 196, Mean Platelet Volume 8.7, Neutrophils (%) (Auto) , Lymphocytes (%) (Auto) , Monocytes (%) (Auto) , Eosinophils (%) (Auto) , Basophils (%) (Auto) , Neutrophils % (Manual) [Pending], Lymphocytes % (Manual) [Pending], Platelet Estimate [Pending], Platelet Morphology [Pending] Height (Feet): 6 Weight (Pounds): 150 Objective General Appearance: WD/WN, alert EENT: normal ENT inspection Neck: non-tender, normal alignment, supple Cardiovascular: normal peripheral pulses, normal rate, regular rhythm Respiratory/Chest: chest wall non-tender, lungs clear, normal breath sounds, no respiratory distress Abdomen: normal bowel sounds, non tender, soft, no organomegaly Neurologic: neighborhood aide II-XII grossly normal, alert, oriented x 3, responsive Assessment/Plan Problem List: (1) Sickle cell anemia ICD Codes: D57.1 - Sickle-cell disease without crisis SNOMED: 062923274 Qualifiers: Qualified Codes: D57.1 - Sickle-cell disease without crisis (2) Tachycardia ICD Codes: R00.0 - Tachycardia, unspecified SNOMED: 7625848 (3) Severe sepsis ICD Codes: A41.9 - Sepsis, unspecified organism; R65.20 - Severe sepsis without septic shock SNOMED: 59116925 (4) Pneumonia ICD Codes: J18.9 - Pneumonia, unspecified organism SNOMED: 345741809 Status: stable Assessment/Plan: iv abx follow up cultures monitor wbc/hgb wean as able transfuse prn dc planning if ok with all Lalo Celaya MD Sep 26, 2020 09:07
--- NOTE | 2020-09-26 10:34 | NUR ---
NURSE NOTES: Spoke to [facility] charge nurse, Keerthi RN regarding medications, deferasirox and deferiprone. Per Keerthi RN will clarify with social/case resolution specialist at [facility] and call back.
--- NOTE | 2020-09-26 10:50 | NUR ---
NURSE NOTES: ROBBIE Pendleton from [facility] called to clarify regard meds. Per Robbie Pendleton only way to get med from SNF to Hospital is family member needs to hot die picker and drop it off to hospital. Addendum: 09/26/20 at 1052 by IRIS MAHAJAN RN Spoke to mother and made her aware of situation.
--- NOTE | 2020-09-26 10:52 | NUR ---
NURSE NOTES: Dr. Degroot at the nursing station, made aware of WBC. No new order received at this time. Will continue to monitor.
--- NOTE | 2020-09-26 11:15 | Infectious Diseases Prog Note ---
"Assessment/Plan Assessment/Plan antibiotics : ceftriaxone, levoquin A 1. serratia | stenotrophomonas pneumonia COVID 19 negative 2. leucocytosis increased 3. sickle cell disease 4. respiratory failure 5. intracranial hemorrhage 6. seizures P '1. d/c ceftriaxone 2. start and continue cefepime 4 more days 3. continue levoquin 8 more days 4. will follow up cultures Subjective ROS Limited/Unobtainable: Yes Allergies: Coded Allergies: ADHESIVE TAPE (Verified Allergy, Unknown, 07/20/20) Uncoded Allergies: TAPE (Allergy, Unknown, 08/07/20) Objective Last 24 Hour Vital Signs Date Time Temp Pulse Resp B/P (MAP) Pulse Ox O2 Delivery O2 Flow Rate FiO2 09/26/20 09:16 70 16 40 09/26/20 08:00 40 09/26/20 08:00 Mechanical Ventilator 09/26/20 08:00 97.9 99 20 122/78 (93) 100 09/26/20 07:34 104 09/26/20 07:08 71 16 40 09/26/20 05:17 76 12 40 09/26/20 04:00 40 09/26/20 04:00 49 09/26/20 04:00 Mechanical Ventilator 09/26/20 04:00 97.9 54 16 115/61 (79) 100 09/26/20 03:05 70 17 40 09/26/20 01:52 98.1 09/26/20 01:05 63 13 40 09/26/20 00:00 98.1 60 15 107/60 (76) 100 09/26/20 00:00 Mechanical Ventilator 09/26/20 00:00 40 09/25/20 23:42 59 09/25/20 23:11 61 12 40 09/25/20 20:59 98.0 09/25/20 20:36 56 14 40 09/25/20 20:05 59 09/25/20 20:05 40 09/25/20 20:00 Mechanical Ventilator 09/25/20 20:00 Mechanical Ventilator 09/25/20 20:00 98.0 61 14 108/59 (75) 100 09/25/20 19:09 73 13 40 09/25/20 17:15 71 13 40 09/25/20 16:00 97.5 73 20 118/69 (85) 100 09/25/20 16:00 71 09/25/20 16:00 Mechanical Ventilator 09/25/20 16:00 40 09/25/20 15:15 73 13 40 09/25/20 13:20 81 16 40 09/25/20 12:00 40 09/25/20 12:00 Mechanical Ventilator 09/25/20 12:00 98.2 70 23 108/58 (75) 100 09/25/20 12:00 54 09/25/20 11:20 75 14 40 Height (Feet): 6 Weight (Pounds): 150 HEENT: status post trach Respiratory/Chest: lungs clear Cardiovascular: normal rate, regular rhythm, no gallop/murmur Abdomen: soft, non tender, other - GT Extremities: no edema, other - left arm PICC Laboratory Tests Test 09/26/20 04:00 09/26/20 06:00 White Blood Count 11.3 K/UL (4.8-10.8) H 24.7 K/UL (4.8-10.8) #*H Red Blood Count 3.87 M/UL (4.70-6.10) L 2.75 M/UL (4.70-6.10) L Hemoglobin 12.1 G/DL (14.2-18.0) #L 8.4 G/DL (14.2-18.0) #L Hematocrit 35.3 % (42.0-52.0) #L 25.4 % (42.0-52.0) L Mean Corpuscular Volume 91 FL (80-99) 92 FL (80-99) Mean Corpuscular Hemoglobin 31.3 PG (27.0-31.0) H 30.7 PG (27.0-31.0) Mean Corpuscular Hemoglobin Concent 34.3 G/DL (32.0-36.0) 33.3 G/DL (32.0-36.0) Red Cell Distribution Width 15.1 % (11.6-14.8) H 15.2 % (11.6-14.8) H Platelet Count 143 K/UL (150-450) L 196 K/UL (150-450) Mean Platelet Volume 8.4 FL (6.5-10.1) 8.7 FL (6.5-10.1) Neutrophils (%) (Auto) 67.4 % (45.0-75.0) % (45.0-75.0) Lymphocytes (%) (Auto) 19.9 % (20.0-45.0) L % (20.0-45.0) Monocytes (%) (Auto) 7.0 % (1.0-10.0) % (1.0-10.0) Eosinophils (%) (Auto) 4.6 % (0.0-3.0) H % (0.0-3.0) Basophils (%) (Auto) 1.1 % (0.0-2.0) % (0.0-2.0) Differential Total Cells Counted 100 Neutrophils % (Manual) 85 % (45-75) H Lymphocytes % (Manual) 5 % (20-45) L Monocytes % (Manual) 2 % (1-10) Eosinophils % (Manual) 4 % (0-3) H Basophils % (Manual) 0 % (0-2) Band Neutrophils 4 % (0-8) Platelet Estimate Adequate Platelet Morphology Normal Hypochromasia 1+ Anisocytosis 2+ Current Medications Medications (Trade) Dose Ordered Sig/Piedad Route PRN Reason Start Time Stop Time Status Last Admin Dose Admin Acetaminophen (Tylenol) 650 mg Q4H PRN GT Temp >100.5 09/21/20 08:45 10/21/20 08:44 Acetaminophen (Tylenol) 650 mg Q4H PRN GT pain scale 1-6 09/21/20 09:30 10/21/20 09:29 09/25/20 01:03 Ceftriaxone Sodium 1 gm/ Dextrose 55 ml @ 110 mls/hr Q24H IVPB 09/25/20 16:00 10/02/20 15:59 09/25/20 17:00 Chlorhexidine Gluconate (Christy-Hex 2%) 1 applic DAILY@2000 TOPIC 09/22/20 20:00 12/21/20 19:59 09/25/20 20:28 Levetiracetam (Keppra) 750 mg Q12HR ORAL 09/21/20 09:00 10/21/20 08:59 09/26/20 08:50 Levofloxacin (Levaquin) 500 mg DAILY ORAL 09/25/20 11:45 10/02/20 11:44 09/26/20 08:50 Morphine Sulfate (Morphine Sulfate) 2 mg Q4H PRN IVP Severe Pain (Pain Scale 7-10) 09/21/20 09:30 09/28/20 09:29 09/26/20 01:22 Isabelle Degroot MD Sep 26, 2020 11:15"
[2020-09-26 12:00] VITALS: BP_SYST 101; BP_SYST 99; BP_DIAS 57; BP_DIAS 67
[2020-09-26] MEDS ORDERED: Cefepime HCl 2 GM in D5W 55 ML IVPB SCH (13:00)
--- NOTE | 2020-09-26 13:00 | NUR ---
NURSE NOTES: Patient irritable, c/o right arm pain 10/10, requesting morpine, refusing Tylenol. Pain med given.
--- NOTE | 2020-09-26 13:20 | NUR ---
MOBILE EQUIPMENT OPERATORNOCTURNIST PHYSICIAN SI: RESP FAILURE,TRACH/VENT DEPENDENT,SEPSIS BP 122/78 HR 99 T 97.9 RR 20 AC 12 TV 500 PEEP 5.0 FIO2 40% WBC 24.7 HGB 8.4 HCT 25.4 IS: CEFEPIME IV KEPPRA PO LEVAQUIN PO HARRIET STATUS
--- NOTE | 2020-09-26 13:43 | Surgery Progress Note ---
Surgery Progress Note Subjective Additional Comments am labs noted repeat h/h more realistic leukocytosis no n/v Objective Last 24 Hour Vital Signs Date Time Temp Pulse Resp B/P (MAP) Pulse Ox O2 Delivery O2 Flow Rate FiO2 09/26/20 11:42 86 09/26/20 11:00 70 17 40 09/26/20 09:16 70 16 40 09/26/20 08:00 40 09/26/20 08:00 Mechanical Ventilator 09/26/20 08:00 97.9 99 20 122/78 (93) 100 09/26/20 07:34 104 09/26/20 07:08 71 16 40 09/26/20 05:17 76 12 40 09/26/20 04:00 40 09/26/20 04:00 49 09/26/20 04:00 Mechanical Ventilator 09/26/20 04:00 97.9 54 16 115/61 (79) 100 09/26/20 03:05 70 17 40 09/26/20 01:52 98.1 09/26/20 01:05 63 13 40 09/26/20 00:00 98.1 60 15 107/60 (76) 100 09/26/20 00:00 Mechanical Ventilator 09/26/20 00:00 40 09/25/20 23:42 59 09/25/20 23:11 61 12 40 09/25/20 20:59 98.0 09/25/20 20:36 56 14 40 09/25/20 20:05 59 09/25/20 20:05 40 09/25/20 20:00 Mechanical Ventilator 09/25/20 20:00 Mechanical Ventilator 09/25/20 20:00 98.0 61 14 108/59 (75) 100 09/25/20 19:09 73 13 40 09/25/20 17:15 71 13 40 09/25/20 16:00 97.5 73 20 118/69 (85) 100 09/25/20 16:00 71 09/25/20 16:00 Mechanical Ventilator 09/25/20 16:00 40 09/25/20 15:15 73 13 40 I&O Intake and Output 09/25/20 09/26/20 19:00 07:00 Intake Total 1260 ml 570 ml Output Total 1400 ml 1000 ml Balance -140 ml -430 ml Intake Free Water 130 ml 200 ml IV Total 220 ml Tube Feeding 660 ml 370 ml Blood Product 250 ml Output Urine Total 1400 ml 1000 ml # Bowel Movements 3 3 Dressing: saturated Cardiovascular: RSR Respiratory: decreased breath sounds Abdomen: soft, non-tender, present bowel sounds Extremities: no tenderness, no cyanosis Laboratory Tests Test 09/26/20 04:00 09/26/20 06:00 White Blood Count 11.3 K/UL (4.8-10.8) H 24.7 K/UL (4.8-10.8) #*H Red Blood Count 3.87 M/UL (4.70-6.10) L 2.75 M/UL (4.70-6.10) L Hemoglobin 12.1 G/DL (14.2-18.0) #L 8.4 G/DL (14.2-18.0) #L Hematocrit 35.3 % (42.0-52.0) #L 25.4 % (42.0-52.0) L Mean Corpuscular Volume 91 FL (80-99) 92 FL (80-99) Mean Corpuscular Hemoglobin 31.3 PG (27.0-31.0) H 30.7 PG (27.0-31.0) Mean Corpuscular Hemoglobin Concent 34.3 G/DL (32.0-36.0) 33.3 G/DL (32.0-36.0) Red Cell Distribution Width 15.1 % (11.6-14.8) H 15.2 % (11.6-14.8) H Platelet Count 143 K/UL (150-450) L 196 K/UL (150-450) Mean Platelet Volume 8.4 FL (6.5-10.1) 8.7 FL (6.5-10.1) Neutrophils (%) (Auto) 67.4 % (45.0-75.0) % (45.0-75.0) Lymphocytes (%) (Auto) 19.9 % (20.0-45.0) L % (20.0-45.0) Monocytes (%) (Auto) 7.0 % (1.0-10.0) % (1.0-10.0) Eosinophils (%) (Auto) 4.6 % (0.0-3.0) H % (0.0-3.0) Basophils (%) (Auto) 1.1 % (0.0-2.0) % (0.0-2.0) Differential Total Cells Counted 100 Neutrophils % (Manual) 85 % (45-75) H Lymphocytes % (Manual) 5 % (20-45) L Monocytes % (Manual) 2 % (1-10) Eosinophils % (Manual) 4 % (0-3) H Basophils % (Manual) 0 % (0-2) Band Neutrophils 4 % (0-8) Platelet Estimate Adequate Platelet Morphology Normal Hypochromasia 1+ Anisocytosis 2+ Plan Problems: (1) Sickle cell anemia (2) Sickle cell crisis (3) Tachycardia (4) Sepsis Assessment & Plan: 35-year-old male sickle cell multiple comorbidities history of craniotomy trach feeding tube prior port infected removed see prior admission and consult and operative notes. Currently presents with significant leukocytosis fevers hypotension in intensive care unit wound site evaluated unlikely etiology. Trach evaluated may consider changing. LFTs noted elevated. Ultrasound ordered pending results trend labs continue IV antibiotics appreciate infectious disease input will follow with recommendations thank you for let me participate in patient's care KUB and US noted labs reviewed transfuse prbc prn trach change peg changed line out picc placed persistent wbc h/h noted anemia ss better since new trach Shiley [address] secretions manageable Trach replaced at bedside 925 for malpositioning it was identified he does have a false track as well. Will ensure trach is in correct positioning daily every shift trach not stable removed and intubated 08/25 on ett vent will need trach revision discussed with mother and medical teams trach and picc s/p trach revision 6 f dxlt last admission trach stable vent stable wbc persistent again pulmonary arteries: Evaluation for pulmonary embolus is limited due to breathing motion artifact. No central pulmonary emboli are identified. Aorta: No acute findings. No thoracic aortic aneurysm. Lungs: There are moderately consolidating infiltrates identified in both lower lobes dependently with mild additional patchy infiltrates dependently in both upper lobes. The findings are consistent with bilateral nonspecific pneumonia. Aspiration pneumonia could give this appearance. The infiltrates are only somewhat typical of Covid 19. Confidence is immediate. Pleural space: Unremarkable. No significant effusion. No pneumothorax. Heart: Unremarkable. No cardiomegaly. No significant pericardial effusion. No evidence of RV dysfunction. Bones/joints: No acute fracture. No dislocation. Soft tissues: Unremarkable. Lymph nodes: Unremarkable. No enlarged lymph nodes. Tubes, lines and devices: There is a tracheostomy tube in good position. IMPRESSION: 1. There are moderately consolidating infiltrates identified in both lower lobes dependently with mild additional patchy infiltrates dependently in both upper lobes. The findings are consistent with bilateral nonspecific pneumonia. Aspiration pneumonia could give this appearance. The infiltrates are only somewhat typical of Covid 19. Confidence is immediate. 2. Evaluation for pulmonary embolus is limited due to breathing motion artifact. No central pulmonary emboli are identified. The liver is homogeneous. We cannot identify a normal spleen. There is dense crescentic calcification in the left upper quadrant at the expected location of the spleen. Gallbladder is absent. The pancreas is unremarkable. Adrenals are normal in morphology. There is a small punctate cortical calcification left kidney. No hydronephrosis bilaterally There is a G-tube in place. Gas-filled bowel loops identified throughout the abdomen and pelvis. No discrete transition point or obstruction. Appendix partially visualized. There is some free fluid in the pelvis. There is no free air. There is a mildly prominent lymph nodes noted in the upper to mid retroperitoneum noted of undetermined etiology or significance. Rivera catheter noted in the bladder. The reservoir for the penile prosthesis is identified in the left lower pelvis. There is a right femoral venous catheter in place. Diffuse sclerosis of the bony pelvis and hips noted of undetermined etiology. IMPRESSION: BILATERAL LOWER LOBE PNEUMONIAS. ALSO SOME HAZY INFILTRATES IN THE UPPER LOBES. A NORMAL SPLEEN IS NOT VISUALIZED. THERE IS A DENSE CRESCENTIC CALCIFICATION LEFT UPPER QUADRANT AT THE EXPECTED LOCATION OF THE SPLEEN. 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 PUNCTATE CORTICAL CALCIFICATION LEFT KIDNEY. NO HYDRONEPHROSIS. PROMINENT LYMPH NODES IN THE UPPER TO MID RETROPERITONEUM OF UNDETERMINED ETIOLOGY OR SIGNIFICANCE. G-TUBE, RIVERA CATHETER, RIGHT FEMORAL CATHETER AND PENILE PROSTHESIS NOTED IN PLACE. MILD DIFFUSE SCLEROSIS OF THE BONY PELVIS AND BOTH HIPS OF UNDETERMINED ETIOLOGY. QUESTION HISTORY OF RENAL OSTEODYSTROPHY. There is a large craniectomy defect in the right frontal temporal region. Diffuse age-related volume loss demonstrated. 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 No definite acute infarct seen. There is no hemorrhage, mass effect or shift. Ventricles and cisterns as well as brainstem and posterior fossa appear unremarkable. The sellar region is normal. Sinuses, mastoid air cells and bony calvarium appear intact. IMPRESSION: Large right frontotemporal craniectomy defect. 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 No definite acute intracranial abnormality. (5) Pneumonia (6) Severe sepsis (7) Port-A-Cath in place (8) Acute prerenal azotemia (9) Status post craniectomy (10) Decubitus skin ulcer Assessment & Plan: SACRUM- STAGE II PRESSURE ULCER MEASURING 1.5X0.5X0.2CM. WOUND BED PINK WITH MINIMAL SERO-SANGUINEOUS DRAINAGE. RECOMMEND-CLEAN WITH SALINE. PAT DRY. APPLY CALAZINE AND COVER WITH OPTIFOAM DRESSING. REPLACE DAILY. LEFT HEEL- STAGE I PRESSURE ULCER. 4X4X0.1CM NON-BLANCHABLE ERYTHEMA NOTED. RECOMMEND-APPLY SKIN CAVILON BARRIER AND COVER WITH OPTIFOAM DRESSING. REPLACE EVERY 3 DAYS. CONTINUE WOUND PREVENTION PROTOCOLS. REPOSITION AT LEAST EVERY 2 HOURS OR TOLERATED OFF-LOAD HEELS WITH PILLOWS Harman Zhao Sep 26, 2020 13:43
--- NOTE | 2020-09-26 15:49 | NUR ---
*-*DISCHARGE PLANNED*-* PATIENT HAS BEEN ACCEPTED AND WILL BE DISCHARGE BACK TO: [facility] P: [phone] FOR NURSE TO NURSE REPORT ASK FOR [facility] ROOM[facility] SET UP FOR 5PM [id number] S/W PATIENTS MOTHER KRISTIN, WHO IS IN AGREEMENT WITH DISCHARGE.
[2020-09-26 16:00] VITALS: BP 101/67
--- NOTE | 2020-09-26 16:30 | NUR ---
NURSE NOTES: Per Dr. Celaya, aware of WBC level. Per MD resume PICC line and Overton Catheter.
--- NOTE | 2020-09-26 19:12 | NUR ---
NURSE NOTES: Patient discharged to [facility], tele : [phone], report given to ambulance personnel, monitor and storage bin tender returned to classroom monitor, ID removed and placed in shredder. Belonging including cellphone, stand, transformation manager, pillow given to ambulance personnel. Report given to ARLYN Gandhi. Endorsed ceftriaxone 5 more days. PICC line and Overton Catheter remained per Dr. Celaya. COVID rapid swab resulted negative. Patient discharged in a stable condition.
[2020-09-26] MEDS ORDERED: D5 1/2NS 1000ml IV ONE ×2 (19:29)
[2020-09-26] MEDS ORDERED: NS 275ml ONE ×2 (19:29)
[2020-09-26] MEDS ORDERED: Tubing IV Secondary IV ONE ×2 (19:29)
[2020-09-26] MEDS ORDERED: Tubing Blood Filter IV ONE (19:29)
--- NOTE | 2020-09-28 09:08 | Discharge Summary ---
Discharge Summary Discharge Summary _ DATE OF ADMISSION: 09/21/2020 DATE OF DISCHARGE: 09/26/2020 DISCHARGED BY: Dr. Celaya REASON FOR ADMISSION: [] 35 years old male with past medical history of intracranial hemorrhage secondary to cerebral aneurysm, status post frenulotomy, anoxic brain injury, resident of nursing facility with chronic respiratory failure tracheostomy tracheostomy status, dysphagia, feeding by G-tube, presented with a fever and leukocytosis. Apparently the facility fever was up to 102. While A viral WBC was 37. Patient by herself nonverbal and unable to provide any history. Upon evaluation patient had no fever EKG revealed sinus rhythm no acute ischemic changes. Chest x-ray revealed no acute cardiopulmonary pathology chest x-ray revealed streaky bibasilar airspace opacity likely representing atelectasis but pneumonia should be excluded clinically. Rapid COVID-19 was negative. Laboratory work-up revealed WBC 36.5, hemoglobin 7.9, hematocrit 23.5. BUN 60, creatinine 1.0. Lactic acid 0.4. Serial troponin troponin was negative. AST 88, ALT 105, alkaline phosphatase 274. CRP 2.3, ferritin 7710. D-dimer 1.95. Rapid COVID-19 was negative. Urinalysis revealed no evidence of urinary tract infection. In emergency department patient pancultured started on empiric antibiotic and admitted for further management CONSULTANTS: ID specialist Dr. Degroot chemistry manager/oncologist Dr [facility] Dr. Zhao [facility] COURSE: Patient admitted to direct observational unit. Ventilator support and tracheostomy care provided. Blood cultures were negative. Repeated COVID-19 was negative . Sputum culture revealed Serratia and Stenotrophomonas. Antibiotic regimen was optimized as per ID specialist recommendation. Leukocytosis initially trended down and then worsened. Infectious disease specialist recommended to continue antibiotic treatment at the facility to complete the course. Strict aspiration precaution maintained. Patient was provided with IV fluids. Renal parameters and electrolytes were closely monitored. Electrolytes corrected as needed ; prior to discharge BUN from 60 down to 24, creatinine remained stable. Sewer Pipe Layer Helper followed. Per chemistry manager , patient initially presented with sickle cell crisis. Hemoglobin and hematocrit were closely monitored with goal to keep hemoglobin above 7 . Patient received 1 unit of packed red blood cell transfusion. Anemia work-up revealed elevated ferritin. Sewer Pipe Layer Helper recommended consider Hydrea , when discharged if stable. Hemoglobin electrophoresis on prior admission showed evidence of sickle cell trait. Flow cytometry was negative on prior admission. Ferritin noted to be elevated . Sewer Pipe Layer Helper recommended consider Exjade once discharged, though ferritin can be above 2000 after multiple transfusion. On 08/30 patient started on deferasirox and Ferriprox , continue these as per chemistry manager for iron overload. DVT prophylaxis with SCD provided. Seizure precautions maintained . No evidence of seizure activity while in the hospital. Wound care for sacral stage II decubitus ulcer and left heel stage I pressure ulcers, present on admission, provided as per surgeon recommendation . Continue wound care at the facility. Tube feeding formula with goal rate and protein supplements provided as per registered dietitian recommendation. Patient clinically stabilized and was ready for transfer back to correction facility for continuation of care. FINAL DIAGNOSES: Severe sepsis Serratia/Stenotrophomonas pneumonia Sickle cell crisis Sickle cell disease Sickle cell anemia Acute prerenal azotemia Hyper ferritin anemia Transaminitis Respiratory failure, ventilator dependent with tracheostomy status History of intracranial hemorrhage secondary to brain aneurysm Status post craniectomy Seizure disorder Decubitus skin ulcer, present on admission DISCHARGE MEDICATIONS: See Medication Reconciliation list. DISCHARGE INSTRUCTIONS: Patient was discharged to the correction facility. Follow up with medical doctor at the facility. I have been assigned to dictate discharge summary for this account. I was not involved in the patient's management. Diana Banks NP Sep 28, 2020 09:08
--- NOTE | 2020-09-28 12:09 | NUR ---
INSURANCE DC SUMMARY FAXED TO [facility] [phone]
== END 2020-09-26 19:30 | DRG 720 ==
LOC: EDBD 22:14 → EMR 22:58 → 2W 09-21 00:19 → EDBEDREQ 09-21 00:28
PROC: 30233N1 Transfusion of Nonautologous Red Blood Cells into Peripheral Vein, Percutaneous Approach (ICD-10-PCS; 2020-09-19)
PROC: 5A1955Z Respiratory Ventilation, Greater than 96 Consecutive Hours (ICD-10-PCS; principal; 2020-09-21)
DX: A41.9 Sepsis, unspecified organism (principal); R65.20 Severe sepsis without septic shock; J15.6 Pneumonia due to other Gram-negative bacteria; J15.8 Pneumonia due to other specified bacteria; D57.00 Hb-SS disease with crisis, unspecified; R64 Cachexia; L89.152 Pressure ulcer of sacral region, stage 2; L89.621 Pressure ulcer of left heel, stage 1; Z68.1 Body mass index [BMI] 19.9 or less, adult; D63.8 Anemia in other chronic diseases classified elsewhere; Z95.828 Presence of other vascular implants and grafts; R56.9 Unspecified convulsions; J96.10 Chronic respiratory failure, unspecified whether with hypoxia or hypercapnia; Z99.11 Dependence on respirator [ventilator] status; R74.01 Elevation of levels of liver transaminase levels; I69.20 Unspecified sequelae of other nontraumatic intracranial hemorrhage; Z43.1 Encounter for attention to gastrostomy
CPT/HCPCS: 36415; 71045; 80048; 80053; 80202; 81003; 82550; 82553; 82728; 82962; 83605; 84484; 85007; 85025; 85044; 85379; 86140; 86850; 86900; 86901; 86920; 87040; 87070; 87181; 87205; 94002; 94003; 96361; 96365; 96368; 96375; 99291; J7030; U0002

== ENCOUNTER 2020-10-11 17:27 | Inpatient (IN) | payer OTHER ==
[~2020-10-11] VITALS: Ht 170.2 cm; Wt 49.9 kg
[~2020-10-11 17:27] MED LIST changes: +CEFTRIAXONE1 G2 IV; +LEVETIRACETAM500 MG ORAL; +LEVOFLOXACIN500 MG ORAL; +METOCLOPRA10 MG/10 M GT; +NORCO 10-325 T1 EACH ORAL
--- NOTE | 2020-10-11 17:36 | Emergency Room Report ---
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 Patient could not yes and no but communication is very difficult. Per EMS patient has had no signs of bleeding. Unable to obtain further history at this time Allergies: Coded Allergies: ADHESIVE TAPE (Verified Allergy, Unknown, 07/20/20) Uncoded Allergies: TAPE (Allergy, Unknown, 08/07/20) COVID-19 Screening Contact w/high risk pt: Yes Experienced COVID-19 symptoms?: Yes COVID-19 symptoms experienced: Fever (T>100.4F or >38C) Patient History Reviewed Nursing Documentation: PMH: Agreed; PSxH: Agreed Nursing Documentation-PMH Hx Cardiac Problems: Yes - SINUS TACYCARDIA Hx Cancer: No Hx Gastrointestinal Problems: Yes - GASTROSTOMY Hx Neurological Problems: Yes - , CEREBRAL ANEURYSM. Hx Seizures: Yes Hx Neurologic Surgery: Yes - RIGHT CRANIOTOMY DUE TO ICH Review of Systems All Other Systems: negative except mentioned in HPI Physical Exam Sp02 EP Interpretation: reviewed, normal - On ventilator General Appearance: no apparent distress, non-toxic Head: other - Evidence of possible right prior craniotomy Neck: tracheotomy Respiratory: no respiratory distress, no accessory muscle use Cardiovascular #1: regular rate, rhythm Gastrointestinal: non tender, soft, other - G-tube in place Rectal: deferred Skin: no rash, other - Left upper extremity PICC line in place Lymphatic: no adenopathy Procedures Critical Care Time Critical Care Time Total critical care time: Approximately 35 minutes. Due to a high probability of clinically significant, life threatening deterioration, the patient required my highest level of preparedness to intervene emergently and I personally spent this critical care time directly and personally managing the patient. This critical care time included obtaining a history; examining the patient; pulse oximetry; ordering and review of studies; arranging urgent treatment with development of a management plan; evaluation of patient's response to treatment; frequent reassessment; and, discussions with other providers.This critical care time was performed to assess and manage the high probability of imminent, life- threatening deterioration that could result in multi-organ failure. It was exclusive of separately billable procedures and treating other patients and teaching time. Please see MDM section and the rest of the note for further information on patient assessment and treatment. Medical Decision Making Diagnostic Impression: Primary Impression: Sickle cell anemia Additional Impressions: Leukocytosis Anemia ER Course Patient has leukocytosis with white blood cell count of 29,000. Patient has chronic leukocytosis. Patient's chest x-ray demonstrates no acute cardiopulmonary pathology. Patient's lactate is normal. Patient has been cultured and started on broad-spectrum antibiotics. Patient given IV fluids. Globin is 7.5. Emergent blood transfusion has been ordered for 1 unit of packed red blood cells. Patient will be admitted for further treatment and evaluation. Laboratory Tests Test 10/11/20 17:50 10/11/20 19:10 White Blood Count 29.6 K/UL (4.8-10.8) *H Red Blood Count 2.38 M/UL (4.70-6.10) L Hemoglobin 7.5 G/DL (14.2-18.0) L Hematocrit 22.8 % (42.0-52.0) L Mean Corpuscular Volume 96 FL (80-99) Mean Corpuscular Hemoglobin 31.4 PG (27.0-31.0) H Mean Corpuscular Hemoglobin Concent 32.7 G/DL (32.0-36.0) Red Cell Distribution Width 15.4 % (11.6-14.8) H Platelet Count 317 K/UL (150-450) Mean Platelet Volume 7.6 FL (6.5-10.1) Neutrophils (%) (Auto) % (45.0-75.0) Lymphocytes (%) (Auto) % (20.0-45.0) Monocytes (%) (Auto) % (1.0-10.0) Eosinophils (%) (Auto) % (0.0-3.0) Basophils (%) (Auto) % (0.0-2.0) Differential Total Cells Counted 100 Neutrophils % (Manual) 82 % (45-75) H Lymphocytes % (Manual) 9 % (20-45) L Monocytes % (Manual) 6 % (1-10) Eosinophils % (Manual) 2 % (0-3) Basophils % (Manual) 1 % (0-2) Band Neutrophils 0 % (0-8) Platelet Estimate Adequate Platelet Morphology Normal Hypochromasia 1+ Anisocytosis 1+ Reticulocyte Count 3.0 % (0.5-2.0) H Prothrombin Time 12.7 SEC (9.30-11.50) H Prothrombin Time INR 1.2 (0.9-1.1) H Activated Partial Thromboplast Time 37 SEC (23-33) H Sodium Level 139 MMOL/L (136-145) Potassium Level 5.6 MMOL/L (3.5-5.1) H Chloride Level 108 MMOL/L (98-107) H Carbon Dioxide Level 21 MMOL/L (21-32) Anion Gap 10 mmol/L (5-15) Blood Urea Nitrogen 59 mg/dL (7-18) H Creatinine 0.9 MG/DL (0.55-1.30) Estimated Glomerular Filtration Rate > 60 mL/min (>60) Glucose Level 91 MG/DL (74-106) Calcium Level 9.4 MG/DL (8.5-10.1) Magnesium Level 2.1 MG/DL (1.8-2.4) Total Bilirubin 1.2 MG/DL (0.2-1.0) H Direct Bilirubin 0.8 MG/DL (0.0-0.3) H Aspartate Amino Transferase (AST) 66 U/L (15-37) H Alanine Aminotransferase (ALT) 83 U/L (12-78) H Alkaline Phosphatase 304 U/L (46-116) H Troponin I 0.000 ng/mL (0.000-0.056) Total Protein 8.5 G/DL (6.4-8.2) H Albumin 3.3 G/DL (3.4-5.0) L Globulin 5.2 g/dL Albumin/Globulin Ratio 0.6 (1.0-2.7) L Lactic Acid Level 0.40 mmol/L (0.4-2.0) Microbiology Date/Time Source Procedure Growth Status 10/11/20 19:00 Nasopharynx SARS-CoV-2 RdRp Gene Assay - Final Complete EKG Diagnostic Results Troponin ordered: Yes When was troponin ordered?: Oct 11, 2020 EKG Time: 19:11 EP Interpretation: Annmarie Hammonds MD Rate: normal - 85 bpm Rhythm: NSR ST Segments: no acute changes ASA given to the pt in ED: No Rhythm Strip Diag. Results Rhythm Strip Time: 18:10 EP Interpretation: yes - Annmarie Hammonds MD Rate: 79 bpm Rhythm: NSR, no PVC's, no ectopy Chest X-Ray Diagnostic Results Chest X-Ray Diagnostic Results : Chest X-Ray Ordered: Yes # of Views/Limited/Complete: 1 View Indication: Other - Weakness EP Interpretation: Yes Interpretation: no consolidation, no effusion, no pneumothorax, no acute cardiopulmonary disease Impression: No acute disease Electronically Signed by: Annmarie Hammonds MD Disposition: ADMITTED INPATIENT - SDU Condition: Critical Physician Consult: Dr. Belia MD at 812pm Additional Instructions: Please note that this report is being documented using [employer] technology. This can lead to erroneous entry secondary to incorrect interpretation by the dictating instrument. Annmarie Hammonds M.D. Oct 11, 2020 17:36
--- NOTE | 2020-10-11 17:45 | NUR ---
ED Nurse Note: Pt was brought in by [facility] from [facility] post acute care d/t abnormal labs of H&H of 6.0, WBC of 32.3 and Creatinine of 19.3 per EMT. Pt is AOx3, cooperative to care, VSS, on RA, afebrile on triage. Pt arrived on trach, L upper arm picc line; RT at bedside. Will continue to monitor pt.
--- NOTE | 2020-10-11 18:00 | NUR ---
ED Nurse Note: x-ray done at bedside.
[2020-10-11 18:03] LABS: HEMATOCRIT 22.8 % (42.0-52.0); HEMOGLOBIN 7.5 G/DL (14.2-18.0); MEAN CORPUSCULAR VOLUME 96 FL (80-99); PLATELET COUNT 317 K/UL (150-450); RED BLOOD COUNT 2.38 M/UL (4.70-6.10); RED CELL DISTRIBUTION WIDTH 15.4 % (11.6-14.8)
[2020-10-11 18:12] LABS: ANION GAP 10 mmol/L (5-15); BLOOD UREA NITROGEN 59 mg/dL (7-18); CALCIUM 9.4 MG/DL (8.5-10.1); CARBON DIOXIDE 21 MMOL/L (21-32); CHLORIDE 108 MMOL/L (98-107); CREATININE 0.9 MG/DL (0.55-1.30); POTASSIUM 5.6 MMOL/L (3.5-5.1); SODIUM 139 MMOL/L (136-145)
[2020-10-11 18:15] VITALS: BP 104/70
[2020-10-11 18:16] LABS: INR 1.2 (0.9-1.1)
[2020-10-11 18:22] LABS: ALANINE AMINOTRANSFERASE 83 U/L (12-78); ALBUMIN 3.3 G/DL (3.4-5.0); ALBUMIN/GLOBULIN RATIO 0.6 (1.0-2.7); ALKALINE PHOSPHATASE 304 U/L (46-116); ASPARTATE AMINO TRANSFERASE 66 U/L (15-37); BILIRUBIN,TOTAL 1.2 MG/DL (0.2-1.0)
[2020-10-11 18:28] LABS: BILIRUBIN,DIRECT 0.8 MG/DL (0.0-0.3)
[2020-10-11 18:50] LABS: WHITE BLOOD COUNT 29.6 K/UL (4.8-10.8)
[2020-10-11] MEDS ORDERED: Vancomycin 1 GM in NS 275 ML IV ONE (19:00)
[2020-10-11] MEDS ORDERED: Sodium Chloride 1,400 ML IVLG ONE (19:00)
[2020-10-11] MEDS ORDERED: Cefepime HCl 2 GM in NS 110 ML IV ONE (19:00)
--- NOTE | 2020-10-11 19:10 | NUR ---
ED Nurse Note: Lactic and blood cultures collected, sent to lab.
--- NOTE | 2020-10-11 19:27 | NUR ---
ED Nurse Note: Patient refusing to provide urine sample, ERMD informed.
--- NOTE | 2020-10-11 20:06 | NUR ---
ED Nurse Note: Condom cath placed for urine sample.
[2020-10-11 20:11] VITALS: BP 115/75
--- NOTE | 2020-10-11 20:17 | NUR ---
ED Nurse Note: Urine collected and sent to lab
--- NOTE | 2020-10-11 20:18 | NUR ---
ED Nurse Note: Patient refused MRSA and CRE/VRE swabs
[2020-10-11 20:34] LABS: APPEARANCE,URINE CLEAR; BILIRUBIN, URINE NEGATIVE (NEGATIVE); COLOR,URINE PALE YELLOW; GLUCOSE, URINE (UA) NEGATIVE (NEGATIVE); KETONES,URINE NEGATIVE (NEGATIVE); LEUKOCYTE ESTERASE ,URINE NEGATIVE (NEGATIVE); NITRITE,URINE NEGATIVE (NEGATIVE); PH,URINE 6.5 (4.5-8.0); PROTEIN,URINE NEGATIVE (NEGATIVE); UROBILINOGEN,URINE NORMAL MG/DL (0.0-1.0)
--- NOTE | 2020-10-11 22:09 | NUR ---
ED Nurse Note: Report given to ARLYN Palmer.
[2020-10-11 22:15] VITALS: BP 115/76
--- NOTE | 2020-10-11 22:15 | NUR ---
TRANSFER TO FLOOR: Patient transferred to SDU as ordered, per ERMD. Report given to ARLYN Palmer.
--- NOTE | 2020-10-11 22:15 | NUR ---
NURSE NOTES: Patient admitted to the floor, coming from ED. Patient is trached to ventilator AC 16, 500tv, 40% FiO2 and peep of 5. Patient has a condom catheter, and has a JOLLY PICC line that was inserted prior to this admission. Patient has skin alterations noted. Currently there is 1 unit of PRBC that is infusing. , isolation precautions noted. MRSA taken and sent to lab. NSR on the monitor, pulses present. Will continue to monitor
--- NOTE | 2020-10-11 22:20 | NUR ---
NURSE NOTES: Vitals take, and remain stable, afebrile at this time. Will continue to monitor.
--- NOTE | 2020-10-11 22:40 | NUR ---
NURSE NOTES: Called Dr. Celaya and received admission orders.
[2020-10-11] MEDS ORDERED: Metoclopramide 10mg/2ml Inj IVP PRN (23:00)
[2020-10-11] MEDS ORDERED: Acetaminophen 650mg/20.3ml GT PRN (23:00)
[2020-10-11] MEDS ORDERED: HYDROcodone/Acetamin 10/325 tab GT PRN (23:00)
[2020-10-11] MEDS ORDERED: Miralax 17gm pkt GT PRN (23:00)
[2020-10-11] MEDS ORDERED: Morphine Sulfate 4mg/ml Inj (IV USE ONLY) IVP PRN (23:15)
--- NOTE | 2020-10-11 23:30 | NUR ---
NURSE NOTES: PRBC finished infusing, no adverse reactions observed, vitals have remained stable, afebrile. Patient is calm and collective at this time, will continue to monitor.
[2020-10-12] VITALS: BP 126/73
--- NOTE | 2020-10-12 02:14 | NUR ---
NURSE NOTES: Patient sleeping in bed at this time, vital remains stable, afebrile/ Repositioned and suctioned patient, oral care performed. No acute events at this time,
[2020-10-12 04:00] VITALS: BP 100/54
[2020-10-12 06:00] LABS: HEMATOCRIT 23.5 % (42.0-52.0); HEMOGLOBIN 7.4 G/DL (14.2-18.0); MEAN CORPUSCULAR VOLUME 98 FL (80-99); PLATELET COUNT 257 K/UL (150-450); RED CELL DISTRIBUTION WIDTH 16.2 % (11.6-14.8)
[2020-10-12 06:13] LABS: WHITE BLOOD COUNT 24.8 K/UL (4.8-10.8)
[2020-10-12 06:35] LABS: ALANINE AMINOTRANSFERASE 70 U/L (12-78); ALBUMIN 2.8 G/DL (3.4-5.0); ALBUMIN/GLOBULIN RATIO 0.7 (1.0-2.7); ALKALINE PHOSPHATASE 233 U/L (46-116); ANION GAP 9 mmol/L (5-15); ASPARTATE AMINO TRANSFERASE 55 U/L (15-37); BILIRUBIN,TOTAL 1.1 MG/DL (0.2-1.0); BLOOD UREA NITROGEN 48 mg/dL (7-18); CALCIUM 8.7 MG/DL (8.5-10.1); CARBON DIOXIDE 20 MMOL/L (21-32); CHLORIDE 115 MMOL/L (98-107); CREATININE 0.8 MG/DL (0.55-1.30); POTASSIUM 4.6 MMOL/L (3.5-5.1); SODIUM 144 MMOL/L (136-145)
[2020-10-12 07:10] LABS: BILIRUBIN,DIRECT 0.6 MG/DL (0.0-0.3)
--- NOTE | 2020-10-12 07:15 | NUR ---
NURSE NOTES: Patient received lying in bed, awake, alert, able to mouth words. No complains of pain at this time. On trach to vent, AC 16, TV-500, FiO2-40%, PEEP - 5, oxygen saturation at 100%. No acute distress noted. Respirations even and unlabored. Running Vital AF at 55 ml/ hr, aspiration precaution in place. Left upper arm PICC, dressing intact, no soilage, flushed and patent. Bilateral soft wrist restraints in place, skin and pulses intact. Condom catheter in place, draining to yellow urine. Sinus Rhythm to bradycardia on the monitor 55-60s. Safety measures implemented. Bed kept at low position. Will continue to monitor the patient.
[2020-10-12 08:00] VITALS: BP 105/55
--- NOTE | 2020-10-12 08:00 | NUR ---
NURSE NOTES: Dr. Celaya notified patient without VTE, GI prophylaxis and also no IV fluid hydration on patient. MD to place in orders. MD agreed to order takers supervisor tube feeding recommendation of Jaspal, may start after Vital tube feeding bottle finishes.
--- NOTE | 2020-10-12 08:29 | NUR ---
RD ASSESSMENT & RECOMMENDATIONS SEE CARE ACTIVITY FOR COMPLETE ASSESSMENT DAILY ESTIMATED NEEDS: Needs based on Underweight, Critical care, wound/ 50kg 25-35 kcals/kg 4581-3340 total kcals 1.25-2 g protein/kg 63-100 g total protein 25-30 mL/kg 0518-4210 total fluid mLs NUTRITION DIAGNOSIS: Swallowing difficulty R/T respiratory status, dysphagia as evidenced by h/o craniotomy, trach/vent dep, on GT feeds. CURRENT TF:Vital 1.2 @55ml/hr ENTERAL NUTRITION RECOMMENDATIONS: Jevity 1.2 @ 55ml/hr x 24 hrs to provide 1320ml, 1584kcal, 73g prot, 1065ml free water * As medically appropriate, intiiate Jevity 1.2 @ 35ml/hr x 6hrs * Advance 10ml q 4-6 hrs as tolerated to goal * HOB over 30 degrees/ water flush per MD ADDITIONAL RECOMMENDATIONS: * Daily calibrated bedscale wt- wts appear stable * Wound healing: TF rec @ goal will provide 100% RDI Add AMADOR BID, F/up w/ WC eval * Monitor lytes-> need for renal formula * Monitor tolerance to TF, need for TF change . .
[2020-10-12] MEDS: Multivitamins W/Minerals 15 ML UDC GT SCH (09:10)
[2020-10-12] MEDS: Ursodiol 300mg cap NG SCH ×2 (09:10→17:45)
[2020-10-12] MEDS: Magnesium Oxide 400mg tab GT SCH (09:10)
[2020-10-12] MEDS: Zinc Sulfate 220mg GT SCH (09:10)
[2020-10-12] MEDS: Ascorbic Acid 500mg tab GT SCH (09:10)
--- NOTE | 2020-10-12 11:41 | NUR ---
NURSE NOTES:Skin/Wound assessment Sacral pressure ulcer stage 2 1.5x2.0x0.2 pink granulation tissue small amount serosanguineous drainage ,moist periwound skin.Calazime and Optifoam applied.Bilateral heels skin intact Optifoam applied and pillow to offload.
[2020-10-12 12:00] VITALS: BP_SYST 101; BP_SYST 116; BP_DIAS 48; BP_DIAS 62
--- NOTE | 2020-10-12 14:30 | NUR ---
NURSE NOTES: Patient resistive to IV insertion and PICC line removal. Patient is combative and swears on the nurse. Patient educated on the need to remove the PICC line and insert new IV for access. Patient is not compliant. Dr. Celaya made aware, per MD have patient speak to his mom.
[2020-10-12] MEDS: Piperacillin/Tazobactam 3.375 GM in NS 110 ML IVPB SCH ×2 (15:00→21:43)
--- NOTE | 2020-10-12 15:20 | NUR ---
NURSE NOTES: Mom of patient called and informed of situation. RN helped set up the call between patient and mom. Patient remains stable at this time.
--- NOTE | 2020-10-12 15:57 | Diagnostic Imaging Report ---
Indication: Chest pain Technique: One view of the chest Comparison: 09/20/2020 Findings: Left arm PICC is again demonstrated. Tracheostomy is again demonstrated. Linear bands of the left lung base may reflect areas of scarring or atelectasis, unchanged. No infiltrates, effusions, congestion Impression: No acute process
[2020-10-12 16:00] VITALS: BP 124/73
--- NOTE | 2020-10-12 16:15 | NUR ---
CASE MANAGEMENT:REVIEW 35 YR OLD MALE BIBA FROM [facility] POST ACUTE/SUB ACUTE CC; ABNORMAL LABS SI: SICKLE CELL ANEMIA. LEUKOCYTOSIS 98.7 86 18 104/70 100% ON VENT SUPPORT WBC+29.6 H/H-7.5/22.8 IS: 1L NS BOLUS IV VANCOMYCIN IV CEFEPIME BLOOD CX CHEST XRAY : TO STEP DOWN UNIT
--- NOTE | 2020-10-12 16:24 | NUR ---
INSURANCE CLINICALS AND REVIEW FAXED TO [facility] F: [phone] REF# [id number]
--- NOTE | 2020-10-12 16:30 | NUR ---
NURSE NOTES: Patient allowed for trial IV insertion x2 but no to no avail, patient moves and flinches. Patient is a difficult IV insertion. MD aware patient has no peripheral IV access at this time. PICC line not yet removed. Will try again later. Dr. Celaya aware.
--- NOTE | 2020-10-12 17:00 | History and Physical Report ---
DATE OF ADMISSION: 10/11/2020 CHIEF COMPLAINT: Anemia, leukocytosis. HISTORY OF PRESENT ILLNESS: Patient is an unfortunate 35-year-old male. He has a history of intracranial bleed, craniotomy, sickle cell disease, and chronic respiratory failure. He was transferred from a [facility] facility with complaints of anemia. He was noted to have white count of 30,000. Blood cultures now came back positive for gram-negative rods. He is now admitted for further evaluation and care. PAST MEDICAL HISTORY: As above. PAST SURGICAL HISTORY: As above. CURRENT MEDICATIONS: Reconciled and reviewed. ALLERGIES: Include tape. FAMILY HISTORY: Noncontributory. SOCIAL HISTORY: There is no known history of tobacco, ethanol, or drugs. REVIEW OF SYSTEMS: GENERAL: No fevers or chills. HEENT: No headaches or visual changes. CARDIOPULMONARY: No chest pain or shortness of breath. GASTROINTESTINAL: No nausea or vomiting. GENITOURINARY: No urgency or frequency. MUSCULOSKELETAL: No joint pain or swelling. NEUROLOGIC: Positive history of seizures. PHYSICAL EXAMINATION: VITAL SIGNS: Temperature 97, pulse 55, respirations 16, blood pressure 105/55. GENERAL: Patient is well developed, in no apparent distress. HEENT: Patient has old craniotomy. Sclerae anicteric. Oropharynx clear. NECK: Supple. HEART: Regular rate and rhythm. LUNGS: Clear. ABDOMEN: Soft, nontender, nondistended. EXTREMITIES: Without clubbing or cyanosis or edema. LABORATORY DATA: White count 29,000, hemoglobin is now 7.5. ASSESSMENT: This is a pleasant male with a history of craniotomy, chronic respiratory failure, seizure disorder, sickle cell anemia admitted with complaints of anemia due to sickle cell anemia as well as sepsis, suspect secondary to PICC line infection. PLAN: IV antibiotics. Discontinue PICC line. Transfuse for hemoglobin less than 6. Hem/Onc, Pulmonary, ID followup. Decision was left with the patient's mother regarding his plan of care. Lalo Celaya M.D. DR: JUDITH JOB#: [id number] CC:
--- NOTE | 2020-10-12 19:25 | NUR ---
NURSE NOTES: Received report from ARLYN Bianchi. Pt is awake, alert/ oriented x 2-3, nonverbal but communicates via facial expression and body movements. No facial grimacing noted. Trach to vent tolerating settings of AC16, TV500, FiO2 40%, PEEP 5 saturating 98%. Condom catheter is intact and patent. G-tube is intact and patent. Bed is locked and in lowest position, call light is within reached. Bed alarm on. Will continue to monitor pt. Will continue with the plan of care.
--- NOTE | 2020-10-12 19:30 | NUR ---
NURSE NOTES: Received report from ARLYN Mccormick Pt AO x 3, lying in bed, able to mouth words, denies pain. His mother is at the bedside. SR/SB on the monitor car operator On trach to vent, AC 16, TV 500, FiO2 40%, PEEP 5, Oxygen saturation at 98-100%. Running Vital AF at 55 mL/ hr is running, aspiration precaution in place. Bilateral soft wrist restraints in place Condom catheter in place, draining to yellow urine Left upper arm PICC, DC order received Safety measures observed and no acute distress noted. Will continue to monitor.
--- NOTE | 2020-10-12 19:50 | NUR ---
NURSE HAND-OFF REPORT: Important Events on Shift:N Patient Status: stable Diet: [] Pending Orders: N Pending Results/Labs:N Pending MD notification:N Latest Vital Signs: Temperature 97.3 , Pulse 50 , B/P 124 /73 , Respiratory Rate 16 , O2 SAT 100 , Mechanical Ventilator, O2 Flow Rate . Vital Sign Comment: stable EKG Rhythm: Sinus Rhythm Rhythm change?: N MD Notified?: - MD Response: Latest Stevens Fall Score: 50 Fall Risk: High Risk Safety Measures: Call light Within Reach, Bed Alarm Zone 2, Side Rails Side Rails x2, Bed position Low and Locked. Fall Precautions: Yellow Socks Yellow Gown Door Sign Patient Fall Education Report given to ARLYN Clark.
[2020-10-12 20:00] VITALS: BP 99/55
--- NOTE | 2020-10-12 20:00 | NUR ---
NURSE NOTES: Pt assignment is switch. Gave report to ARLYN Clark
[2020-10-12] MEDS: Dyna-Hex 2% Top Sol 2oz TOPIC SCH (20:14)
--- NOTE | 2020-10-12 21:00 | NUR ---
NURSE NOTES: PIV inserted successfully on RFA 22G. Infected. PICC line taken out. Will continue to monitor.
[2020-10-13] VITALS (7 sets, daily range): BP systolic 98–118; BP diastolic 42–60
--- NOTE | 2020-10-13 | NUR ---
NURSE NOTES: Turned and repositioned. Oral care provided. Will continue to monitor.
--- NOTE | 2020-10-13 02:00 | NUR ---
NURSE NOTES: Turned and repositioned. Oral care provided. Will continue to monitor.
--- NOTE | 2020-10-13 04:00 | NUR ---
NURSE NOTES: Turned and repositioned. Oral care provided.
[2020-10-13] MEDS: Piperacillin/Tazobactam 3.375 GM in NS 110 ML IVPB SCH ×3 (05:31→21:42)
--- NOTE | 2020-10-13 07:10 | NUR ---
NURSE NOTES: Patient received from ARLYN Clark under the care of Dr. Celaya for the admitting dx. anemia. Patient noted allergic to tape. Patient full code. Aspiration and seizure precautions observed and maintained at all times. Tolerating vent settings well, with no sign of apparent distress noted at this time. Will continue to monitor.
[2020-10-13] MEDS: Multivitamins W/Minerals 15 ML UDC GT SCH (09:11)
[2020-10-13] MEDS: Zinc Sulfate 220mg GT SCH (09:11)
[2020-10-13] MEDS: Ascorbic Acid 500mg tab GT SCH (09:11)
[2020-10-13] MEDS: Ursodiol 300mg cap NG SCH ×2 (09:11→18:15)
[2020-10-13] MEDS: Magnesium Oxide 400mg tab GT SCH (09:11)
--- NOTE | 2020-10-13 11:00 | NUR ---
NURSE NOTES: Patient awake and watching tv. Tolerating vent settings well. No acute distress noted. Denies pain at this time. Will continue to monitor.
--- NOTE | 2020-10-13 12:00 | Consultation ---
DATE OF CONSULTATION: 10/13/2020 INFECTIOUS DISEASES CONSULTATION CONSULTING PHYSICIAN: Isabelle Degroot MD. REFERRING PHYSICIAN: Lalo Celaya MD. REASON FOR CONSULTATION: Gram-negative sepsis. HISTORY OF PRESENTING ILLNESS: This is an unfortunate 35-year-old gentleman with history of sickle cell disease, intracranial bleed, status post craniotomy, respiratory failure, who was transferred from a assisted facility with anemia. He was found to have a leukocytosis and now has sepsis and Infectious Diseases consultation has been obtained for antibiotics. PAST MEDICAL HISTORY: 1. History of sickle cell disease. 2. Intracranial bleed, status post craniotomy. 3. Chronic respiratory failure, status post tracheostomy. SOCIAL HISTORY: No history of smoking, alcohol, or drug use. FAMILY HISTORY: Noncontributory. REVIEW OF SYSTEMS: Unable to obtain. MEDICATIONS: As an inpatient, he is on chlorhexidine, Zosyn, baclofen, , zinc sulfate, multivitamin, magnesium oxide, ascorbic acid, Keppra, morphine, [place], Tylenol, MiraLAX, Reglan. ALLERGIES: To adhesive tape noted. PHYSICAL EXAMINATION: VITAL SIGNS: Temperature of 97.7, T-max of 98, pulse of 50, respiratory rate of 16, blood pressure 105/52, O2 saturation of 100%. HEENT: Pupils equally reactive to light and accommodation. Mouth appears clean without thrush. NECK: Supple. No adenopathy. No JVD. Tracheostomy site is clean. CARDIOVASCULAR: Regular rate and rhythm. No murmurs. LUNGS: Clear to auscultation bilaterally. No crackles. No wheezes. ABDOMEN: Soft, nontender. G-tube site appears clean. EXTREMITIES: No cyanosis, no clubbing, no edema. LABORATORY AND DIAGNOSTIC DATA: White count of 29 on 10/11/2020, white count of 24.8 yesterday, hemoglobin 7.4, hematocrit 23.5, MCV 98, platelet count of 257 with neutrophils of 76%. Sodium 144, potassium 4.6, chloride 115, bicarb 20, BUN 48, creatinine 0.8, glucose 104, calcium 8.7. Total bilirubin 1.1, direct bilirubin 0.6. AST 55, ALT 70, alkaline phosphatase 233. Troponin 0.0. Total protein 7.1, albumin 2.8. UA is negative. Blood culture showing gram-negative rods. On 10/11/2020, COVID-19 test is negative. Nasal swab was positive for MRSA. Chest x-ray showing no acute process. ASSESSMENT: This is a 35-year-old gentleman with history of sickle cell disease, intracranial bleed, status post craniotomy, respiratory failure, status post tracheostomy, who comes in and was found to have. 1. Gram-negative sepsis likely secondary to PICC line infection. The PICC line has been removed. 2. Leukocytosis is improving. 3. Intracranial bleed, status post craniotomy. 4. COVID-19 negative. 5. Sickle cell disease. PLAN: 1. Continue Zosyn. 2. We will follow up cultures and adjust antibiotics accordingly. I would like to thank, Dr. Celaya, for this consultation. Isabelle Degroot M.D. DR: BANDAR JOB#: [id number] CC: Lalo Celaya MD.
--- NOTE | 2020-10-13 13:50 | General Progress Note ---
Subjective ROS Limited/Unobtainable: No Constitutional: Reports: malaise, weakness HEENT: Reports: no symptoms Cardiovascular: Reports: no symptoms Respiratory: Reports: cough, shortness of breath, sputum Gastrointestinal/Abdominal: Reports: difficulty swallowing Genitourinary: Reports: no symptoms Neurologic/Psychiatric: Reports: paresthesia, pre-existing deficit, seizure Endocrine: Reports: no symptoms Hematologic/Lymphatic: Reports: anemia Allergies: Coded Allergies: ADHESIVE TAPE (Verified Allergy, Unknown, 07/20/20) Uncoded Allergies: TAPE (Allergy, Unknown, 08/07/20) All Systems: reviewed and negative except above Subjective no events. picc dcd. +gnr in blood. no distress. awake and alert Objective Last 24 Hour Vital Signs Date Time Temp Pulse Resp B/P (MAP) Pulse Ox O2 Delivery O2 Flow Rate FiO2 10/13/20 13:10 48 16 40 10/13/20 12:02 98.6 73 20 102/43 (62) 98 10/13/20 12:00 40 10/13/20 12:00 Mechanical Ventilator 10/13/20 12:00 53 10/13/20 11:00 53 16 40 10/13/20 09:00 50 16 40 10/13/20 08:00 Mechanical Ventilator 10/13/20 08:00 40 10/13/20 08:00 47 10/13/20 08:00 97.7 51 15 105/52 (69) 100 10/13/20 07:00 45 16 40 10/13/20 05:18 47 16 40 10/13/20 04:00 Mechanical Ventilator 10/13/20 04:00 97.5 52 16 102/56 (71) 100 10/13/20 04:00 40 10/13/20 04:00 52 10/13/20 03:07 51 16 40 10/13/20 00:38 50 16 40 10/13/20 00:00 Mechanical Ventilator 10/13/20 00:00 97.0 53 16 99/60 (73) 100 10/12/20 22:40 53 16 40 10/12/20 21:16 50 16 40 10/12/20 20:00 51 10/12/20 20:00 97.7 51 16 99/55 (70) 100 10/12/20 20:00 Mechanical Ventilator 10/12/20 20:00 40 10/12/20 18:50 51 16 40 10/12/20 17:08 59 16 40 10/12/20 16:00 Mechanical Ventilator 10/12/20 16:00 97.3 71 22 124/73 (90) 100 10/12/20 16:00 85 10/12/20 16:00 40 10/12/20 15:00 67 16 40 Intake and Output 10/12/20 10/13/20 19:00 07:00 Intake Total 560 ml 40 ml Output Total 600 ml 900 ml Balance -40 ml -860 ml Free Water 120 ml Tube Feeding 440 ml 40 ml Output Urine Total 600 ml 900 ml Height (Feet): 5 Height (Inches): 7.00 Weight (Pounds): 110 General Appearance: WD/WN, alert EENT: normal ENT inspection Neck: non-tender, normal alignment, supple Cardiovascular: normal peripheral pulses, normal rate, regular rhythm Respiratory/Chest: chest wall non-tender, lungs clear, normal breath sounds Edema: no edema noted Arm (L), no edema noted Arm (R) Assessment/Plan Problem List: (1) Bacteremia associated with intravascular line ICD Codes: T82.7XXA - Infection and inflammatory reaction due to other cardiac and vascular devices, implants and grafts, initial encounter; R78.81 - Bacteremia SNOMED: 607492177 (2) Sickle cell crisis ICD Codes: D57.00 - Hb-SS disease with crisis, unspecified SNOMED: 723370902 (3) Leukocytosis ICD Codes: D72.829 - Elevated white blood cell count, unspecified SNOMED: 513033639, 028836309 (4) Anemia ICD Codes: D64.9 - Anemia, unspecified SNOMED: 527418520 Status: stable, progressing Assessment/Plan: iv abx follow up cultures monitor h/h vent pt/ot sz rx tube feeds Lalo Celaya MD Oct 13, 2020 13:50
--- NOTE | 2020-10-13 14:21 | Consultation ---
History of Present Illness General Date patient seen: Oct 13, 2020 Reason for Hospitalization: Abnormal Labs Present Illness HPI This is a 35-year-old male multimedical comorbidities who I have known well for some time now prior tracheostomy complications respiratory insufficiency has been improving prior decubitus ulcer formations history of leukocytosis anemia sickle cell presented from care facility is recovering identified to have abnormal labs. On admission still requiring significant care and surgery called to evaluate and assist with patient's care as he is bedbound high risk trach concerns and requires significant amount of care. Patient seen, patient by, chart reviewed. Have discussed care plan with his mother on multiple occasions. Allergies: Coded Allergies: ADHESIVE TAPE (Verified Allergy, Unknown, 07/20/20) Uncoded Allergies: TAPE (Allergy, Unknown, 08/07/20) COVID-19 Screening Contact w/high risk pt: No Experienced COVID-19 symptoms?: No Medication History Scheduled Albuterol Sulfate* (Albuterol Sulfate Hfa*), 2 PUFF INH Q6H, (Reported) Amino Acids/Protein Hydrolys (Pro-Stat Liquid), 30 ML GT DAILY, (Reported) Ascorbic Acid* (Ascorbic Acid*), 500 MG GT DAILY, (Reported) Baclofen* (Baclofen*), 10 MG GT THREE TIMES A DAY, (Reported) Ceftriaxone Sodium (Ceftriaxone), 1 GM IV DAILY Deferasirox (Exjade), 1,080 MG GT DAILY, (Reported) Deferiprone (Ferriprox), 1,000 MG GT Q8HR, (Reported) Levetiracetam* (Levetiracetam*), 500 MG ORAL Q8HR, (Reported) Levofloxacin (Levofloxacin*), 500 MG ORAL DAILY Magnesium Oxide (Magnesium Oxide), 400 MG GT DAILY, (Reported) Metoclopramide Hcl* (Metoclopramide Hcl*), 10 MG GT Q8HR, (Reported) Multivitamins* (Multivitamins*), 1 TAB GT DAILY, (Reported) Polyethylene Glycol 3350* (Polyethylene Glycol 3350*), 17 GM GT BEDTIME, (Repor yamile) Ursodiol (Ursodiol*), 300 MG ORAL TWICE A DAY Zinc Sulfate (Zinc Sulfate*), 220 MG GT DAILY, (Reported) Scheduled PRN Acetaminophen* (Acetaminophen 325MG Tablet*), 650 MG GT Q4H PRN for Mild pain/temp >101F, (Reported) Hydrocodone Bit/Acetaminophen 10-325* ([place] 10-325*), 1 TAB ORAL Q4H PRN for For Pain, (Reported) Hydroxyurea* (HYDREA 500mg*), 500 MG GT DAILY PRN for SICKLE CELL ANEMIA , (Reported) Patient History Limited by: medical condition, other History Provided By: Medical Record, PMD Healthcare decision maker Resuscitation status Advanced Directive on File Past Medical/Surgical History Past Medical/Surgical History: (1) Tachycardia (2) Severe sepsis (3) Port-A-Cath in place (4) Acute prerenal azotemia (5) Decubitus skin ulcer (6) Pneumonia (7) Sepsis (8) Sickle cell anemia (9) Sickle cell crisis (10) Anemia (11) Leukocytosis (12) Bacteremia associated with intravascular line Review of Systems Review of Symptoms General ROS: no weight loss or fever Psychological ROS: no depression or mood changes, no memory loss Ophthalmic ROS: no visual changes or eye irritation ENT ROS: no nasal congestion, hearing loss, dizziness Allergy and Immunology ROS: no allergic symptoms or urticaria Hematological and Lymphatic ROS: no swollen glands, unusual bleeding or bruising Endocrine ROS: no polyuria, polydipsia, weight changes, temperature intolerance Respiratory ROS: no cough, shortness of breath, or wheezing Cardiovascular ROS: no chest pain or dyspnea on exertion Gastrointestinal ROS: denies abdominal pain, bright red blood in stool. Musculoskeletal ROS: no myalgias or arthralgias Neurological ROS: no TIA or stroke symptoms Dermatological ROS: no new or changing skin lesions, rashes or pruritis Physical Exam Physical Exam General appearance: alert, cooperative, no distress, appears stated age Head: Normocephalic, without obvious abnormality, atraumatic Eyes: conjunctivae/corneas clear. PERRL, EOM's intact. Fundi benign Throat: Lips, mucosa, and tongue normal. Teeth and gums normal Neck: supple, symmetrical, trachea midline, no adenopathy, thyroid: not enlarged, symmetric, no tenderness/mass/nodules, no carotid bruit and no JVD trach stable Lungs: clear to auscultation bilaterally Heart: regular rate and rhythm, S1, S2 normal, no murmur, click, rub or gallop Abdomen: soft, non-tender. Bowel sounds normal. No masses, no organomegaly Extremities: extremities normal, atraumatic, no cyanosis or edema Pulses: 2+ and symmetric Skin: Skin color, texture, turgor normal. No rashes or lesions Neurologic: Grossly normal Last 24 Hour Vital Signs Date Time Temp Pulse Resp B/P (MAP) Pulse Ox O2 Delivery O2 Flow Rate FiO2 10/13/20 13:10 48 16 40 10/13/20 12:02 98.6 73 20 102/43 (62) 98 10/13/20 12:00 40 10/13/20 12:00 Mechanical Ventilator 10/13/20 12:00 53 10/13/20 11:00 53 16 40 10/13/20 09:00 50 16 40 10/13/20 08:00 Mechanical Ventilator 10/13/20 08:00 40 10/13/20 08:00 47 10/13/20 08:00 97.7 51 15 105/52 (69) 100 10/13/20 07:00 45 16 40 10/13/20 05:18 47 16 40 10/13/20 04:00 Mechanical Ventilator 10/13/20 04:00 97.5 52 16 102/56 (71) 100 10/13/20 04:00 40 10/13/20 04:00 52 10/13/20 03:07 51 16 40 10/13/20 00:38 50 16 40 10/13/20 00:00 Mechanical Ventilator 10/13/20 00:00 97.0 53 16 99/60 (73) 100 10/12/20 22:40 53 16 40 10/12/20 21:16 50 16 40 10/12/20 20:00 51 10/12/20 20:00 97.7 51 16 99/55 (70) 100 10/12/20 20:00 Mechanical Ventilator 10/12/20 20:00 40 10/12/20 18:50 51 16 40 10/12/20 17:08 59 16 40 10/12/20 16:00 Mechanical Ventilator 10/12/20 16:00 97.3 71 22 124/73 (90) 100 10/12/20 16:00 85 10/12/20 16:00 40 10/12/20 15:00 67 16 40 Intake and Output 10/12/20 10/13/20 19:00 07:00 Intake Total 560 ml 40 ml Output Total 600 ml 900 ml Balance -40 ml -860 ml Free Water 120 ml Tube Feeding 440 ml 40 ml Output Urine Total 600 ml 900 ml Height (Feet): 5 Height (Inches): 7.00 Weight (Pounds): 110 Medications Current Medications Medications (Trade) Dose Ordered Sig/Piedad Route PRN Reason Start Time Stop Time Status Last Admin Dose Admin Acetaminophen (Tylenol) 650 mg Q6H PRN GT Temp >100.5 10/11/20 23:00 11/10/20 22:59 Acetaminophen/ Hydrocodone Bitart ([place] 10/325) 1 tab Q4H PRN GT For Pain 10/11/20 23:00 10/18/20 22:59 Ascorbic Acid (Vitamin C) 500 mg DAILY GT 10/12/20 09:00 11/11/20 08:59 10/13/20 09:11 Baclofen (Lioresal) 10 mg THREE TIMES A DAY GT 10/12/20 09:00 11/11/20 08:59 10/13/20 13:40 Chlorhexidine Gluconate (Christy-Hex 2%) 1 applic DAILY@1999 TOPIC 10/12/20 20:00 01/10/21 19:59 10/12/20 20:14 Levetiracetam (Keppra) 500 mg Q8HR GT 10/11/20 23:30 11/10/20 23:29 10/13/20 13:41 Magnesium Oxide (Mag-Ox 400mg) 400 mg DAILY GT 10/12/20 09:00 11/11/20 08:59 10/13/20 09:11 Metoclopramide HCl (Reglan) 10 mg Q8H PRN IVP Nausea & Vomiting 10/11/20 23:00 11/10/20 22:59 Morphine Sulfate (Morphine Sulfate) 4 mg Q4H PRN IVP Severe Pain (Pain Scale 7-10) 10/11/20 23:15 10/18/20 23:14 Multivitamins (Multivitamins W/ Minerals 15ml Liquid) 15 ml DAILY GT 10/12/20 09:00 11/11/20 08:59 10/13/20 09:11 Piperacillin Sod/ Tazobactam Sod 3.375 gm/Sodium Chloride 110 ml @ 27.5 mls/hr EVERY 8 HOURS IVPB 10/12/20 15:00 10/17/20 14:59 10/13/20 13:41 Polyethylene Glycol (Miralax) 17 gm BEDTIME PRN GT Constipation 10/11/20 23:00 11/10/20 22:59 Ursodiol (Actigall) 300 mg TWICE A DAY NG 10/12/20 09:00 01/10/21 08:59 10/13/20 09:11 Zinc Sulfate (Zinc Sulfate) 220 mg DAILY GT 10/12/20 09:00 01/10/21 08:59 10/13/20 09:11 Assessment/Plan Problem List: (1) Sickle cell anemia ICD Codes: D57.1 - Sickle-cell disease without crisis SNOMED: 391688105 (2) Sickle cell crisis ICD Codes: D57.00 - Hb-SS disease with crisis, unspecified SNOMED: 958132083 (3) Anemia ICD Codes: D64.9 - Anemia, unspecified SNOMED: 519404950 (4) Leukocytosis Assessment & Plan: line out cont abx trends labs abx as per ID respiratory improved ICD Codes: D72.829 - Elevated white blood cell count, unspecified SNOMED: 929205729, 338801821 (5) Bacteremia associated with intravascular line Assessment & Plan: PICC line removed on abx dressings changed prn wounds table without signs of infection likely etiology picc DAILY ESTIMATED NEEDS: Needs based on Underweight, Critical care, wound/ 50kg 25-35 kcals/kg 5315-7064 total kcals 1.25-2 g protein/kg 63-100 g total protein 25-30 mL/kg 4539-9621 total fluid mLs NUTRITION DIAGNOSIS: Swallowing difficulty R/T respiratory status, dysphagia as evidenced by h/o craniotomy, trach/vent dep, on GT feeds. CURRENT TF:Vital 1.2 @55ml/hr ENTERAL NUTRITION RECOMMENDATIONS: Jevity 1.2 @ 55ml/hr x 24 hrs to provide 1320ml, 1584kcal, 73g prot, 1065ml free water * As medically appropriate, intiiate Jevity 1.2 @ 35ml/hr x 6hrs * Advance 10ml q 4-6 hrs as tolerated to goal * HOB over 30 degrees/ water flush per MD ADDITIONAL RECOMMENDATIONS: * Daily calibrated bedscale wt- wts appear stable * Wound healing: TF rec @ goal will provide 100% RDI Add AMADOR BID, F/up w/ WC eval * Monitor lytes-> need for renal formula * Monitor tolerance to TF, need for TF change ICD Codes: T82.7XXA - Infection and inflammatory reaction due to other cardiac and vascular devices, implants and grafts, initial encounter; R78.81 - Bacteremia SNOMED: 262896484 (6) Decubitus skin ulcer Assessment & Plan: SACRUM- STAGE II PRESSURE ULCER MEASURING 1.5X0.5X0.2CM. WOUND BED PINK WITH MINIMAL SERO-SANGUINEOUS DRAINAGE. RECOMMEND-CLEAN WITH SALINE. PAT DRY. APPLY CALAZINE AND COVER WITH OPTIFOAM DRESSING. REPLACE DAILY. LEFT HEEL- STAGE I PRESSURE ULCER. 4X4X0.1CM NON-BLANCHABLE ERYTHEMA NOTED. RECOMMEND-APPLY SKIN CAVILON BARRIER AND COVER WITH OPTIFOAM DRESSING. REPLACE EVERY 3 DAYS. CONTINUE WOUND PREVENTION PROTOCOLS. REPOSITION AT LEAST EVERY 2 HOURS OR TOLERATED OFF-LOAD HEELS WITH PILLOWS ICD Codes: L89.90 - Pressure ulcer of unspecified site, unspecified stage SNOMED: 304921046 (7) Tachycardia ICD Codes: R00.0 - Tachycardia, unspecified SNOMED: 6943498 (8) Sepsis ICD Codes: A41.9 - Sepsis, unspecified organism SNOMED: 01716055 (9) Pneumonia ICD Codes: J18.9 - Pneumonia, unspecified organism SNOMED: 080376773 (10) Severe sepsis ICD Codes: A41.9 - Sepsis, unspecified organism; R65.20 - Severe sepsis without septic shock SNOMED: 97179871 (11) Port-A-Cath in place ICD Codes: Z95.828 - Presence of other vascular implants and grafts SNOMED: 313174428 (12) Acute prerenal azotemia ICD Codes: R79.89 - Other specified abnormal findings of blood chemistry SNOMED: 457615904 Harman Zhao Oct 13, 2020 14:20
--- NOTE | 2020-10-13 14:54 | NUR ---
CASE MANAGEMENT: INITIAL REVIEW 10/13/2020 SI:SICKLE CELL ANEMIA. LEUKOCYTOSIS T 98.6 HR 73 RR 20 B/P 102/43 SATS 98% ON MECH VENT FIO2 40 LABS: NO LABS TODAY IS: ZOSYN IV Q8H URSODIOL NG BID KEPPRA GT Q8H BACLOFEN GT TID : TO STEP DOWN UNIT
--- NOTE | 2020-10-13 14:59 | NUR ---
INSURANCE CLINICALS AND REVIEW FAXED TO [facility] F: [phone] REF# [id number]
--- NOTE | 2020-10-13 19:15 | NUR ---
NURSE HAND-OFF REPORT: Important Events on Shift:D/C restraints Patient Status: Stable Diet: GT feed Pending Orders: Pending Results/Labs: Pending MD notification: Latest Vital Signs: Temperature 98.1 , Pulse 56 , B/P 98 /42 , Respiratory Rate 16 , O2 SAT 100 , Mechanical Ventilator, O2 Flow Rate . Vital Sign Comment: EKG Rhythm: Sinus Bradycardia Rhythm change?: N MD Notified?: - MD Response: Latest Stevens Fall Score: 50 Fall Risk: High Risk Safety Measures: Call light Within Reach, Bed Alarm Zone 2, Side Rails Side Rails x2, Bed position Low and Locked. Fall Precautions: Yellow Socks Yellow Gown Door Sign Patient Fall Education Report given to ARLYN Valdes.
--- NOTE | 2020-10-13 19:16 | NUR ---
NURSE NOTES: Received report from ARLYN Young. Pt A/Ox3 responsive to verbal and tactile stimuli. On vent saturating 100% on prescribed settings of A/C 16 Vt 500 fiO2 40% Vitals WNL - 5-lead EKG shows SR at 60 BMP. G-tube running Jevity 1.2 at 55 mL with 0 residual noted. Condom catheter removed by pt. Will reinsert during shift. Bed kept in lowest and locked position. Bed alarm on. Will continue to monitor.
[2020-10-13] MEDS: Dyna-Hex 2% Top Sol 2oz TOPIC SCH (20:12)
--- NOTE | 2020-10-13 22:26 | NUR ---
NURSE NOTES: Assessed pt trach site. Cuff is deflated. Per Andrew DIAZ, trach must be replaced since he is unable to inflate. Left message for Dr. Celaya; per MD contact Dr. Zhao for orders. Pt in stable condition. Will monitor.
--- NOTE | 2020-10-13 23:36 | NUR ---
NURSE NOTES: Per Dr. Zhao, will replace trach soon. OK to D/C chlorhexidine since PICC line discontinued. No bleeding noted. Will monitor.
[2020-10-14] VITALS: BP 118/58
--- NOTE | 2020-10-14 01:53 | NUR ---
NURSE NOTES: Will endorse to Speech Therapist to provide communication board for pt so we can understand his needs better. Pt in stable condition.
[2020-10-14 04:00] VITALS: BP 103/56
[2020-10-14] MEDS: Piperacillin/Tazobactam 3.375 GM in NS 110 ML IVPB SCH ×2 (04:59→13:44)
--- NOTE | 2020-10-14 06:45 | NUR ---
NURSE NOTES: Pt episode of bradycardia at 39bpm this morning. Pt is asymptomatic. Notified Dr. Celaya. No new orders endorsed.
--- NOTE | 2020-10-14 07:13 | NUR ---
NURSE HAND-OFF REPORT: Important Events on Shift: No changes Patient Status: Stable Diet: Jevity 1.2 Pending Orders: N Pending Results/Labs: N Pending MD notification: Y - episode of SB 39 bpm [place] notified Latest Vital Signs: Temperature 97.9 , Pulse 48 , B/P 103 /56 , Respiratory Rate 16 , O2 SAT 100 , Mechanical Ventilator, O2 Flow Rate . Vital Sign Comment: EKG Rhythm: Sinus Bradycardia Rhythm change?: N MD Notified?: - MD Response: Latest Stevens Fall Score: 50 Fall Risk: High Risk Safety Measures: Call light Within Reach, Bed Alarm Zone 2, Side Rails Side Rails x3, Bed position Low and Locked. Fall Precautions: Yellow Socks Yellow Gown Door Sign Patient Fall Education Report given to ARLYN Stephens.
--- NOTE | 2020-10-14 07:27 | NUR ---
NURSE NOTES: Received report form ARLYN Valdes, pt. in bed awake, appears to be A/O x's3- able to make needs known, no signs or symptoms of cardiac or respiratory distress noted, bed alarm on, side rails up x's 3 and safety brakes engaged, side rails padded for seizure precautions- no seizure activity noted, call light within easy reach, pt. appears to be tolerating current vent settings as ordered- AC 16, VT 500, fio2 at 40%, peep 5- no distress noted, Condom cath intact and draining to gravity, aspiration and skin precautions observed, Rt. AC 22G- TKO, safety measures continued, will continue with plan of care.
--- NOTE | 2020-10-14 07:52 | NUR ---
NURSE HAND-OFF REPORT: Important Events on Shift:none Patient Status: stable Diet: Jevity Pending Orders: Pending Results/Labs: Pending MD notification: Latest Vital Signs: Temperature 97.9 , Pulse 48 , B/P 103 /56 , Respiratory Rate 16 , O2 SAT 100 , Mechanical Ventilator, O2 Flow Rate . Vital Sign Comment: EKG Rhythm: Sinus Bradycardia Rhythm change?: N MD Notified?: - MD Response: Latest Stevens Fall Score: 50 Fall Risk: High Risk Safety Measures: Call light Within Reach, Bed Alarm Zone 2, Side Rails Side Rails x3, Bed position Low and Locked. Fall Precautions: Yellow Socks Yellow Gown Door Sign Patient Fall Education Report given to Chris Rn, pt. remains stable and no signs of distress noted.
--- NOTE | 2020-10-14 07:53 | NUR ---
NURSE NOTES: Received patient from Jesus STODDARD. Patient is awake, alert and oriented x3. Sinus Bradycardia on the heart monitor, HR 44. Receiving oxygen via Shiley 8, vent settings: AC 16, TV 500, FiO2 40%, PEEP 5. G-tube is intact and receiving Jevity 1.2 at 55cc/hr, less than 10cc of residual noted. IV site is Right AC 22g patent and intact. Bed is locked, placed in lowest position, side rails up x3, bed alarm on, head of bed elevated, call light within reach. Will continue to monitor.
[2020-10-14 08:00] VITALS: BP 96/60
[2020-10-14] MEDS: Zinc Sulfate 220mg GT SCH (09:08)
[2020-10-14] MEDS: Multivitamins W/Minerals 15 ML UDC GT SCH (09:08)
[2020-10-14] MEDS: Ursodiol 300mg cap NG SCH ×2 (09:08→18:24)
[2020-10-14] MEDS: Ascorbic Acid 500mg tab GT SCH (09:08)
[2020-10-14] MEDS: Magnesium Oxide 400mg tab GT SCH (09:08)
[2020-10-14 10:20] LABS: BASOPHILS % (AUTO) 1.2 % (0.0-2.0); EOSINOPHILS % (AUTO) 4.5 % (0.0-3.0); HEMATOCRIT 26.4 % (42.0-52.0); HEMOGLOBIN 8.3 G/DL (14.2-18.0); MEAN CORPUSCULAR VOLUME 99 FL (80-99); MONOCYTES % (AUTO) 6.4 % (1.0-10.0); NEUTROPHILS % (AUTO) 67.9 % (45.0-75.0); PLATELET COUNT 315 K/UL (150-450); RED BLOOD COUNT 2.66 M/UL (4.70-6.10); RED CELL DISTRIBUTION WIDTH 16.5 % (11.6-14.8); WHITE BLOOD COUNT 16.3 K/UL (4.8-10.8)
--- NOTE | 2020-10-14 10:27 | NUR ---
NURSE NOTES: Patient complained of pain in the back rated 8/10, gave patient prescribed [place] 10/325 via G-tube and repositioned patient.
[2020-10-14 10:32] LABS: ALANINE AMINOTRANSFERASE 48 U/L (12-78); ALBUMIN 2.9 G/DL (3.4-5.0); ALBUMIN/GLOBULIN RATIO 0.6 (1.0-2.7); ALKALINE PHOSPHATASE 277 U/L (46-116); ANION GAP 10 mmol/L (5-15); ASPARTATE AMINO TRANSFERASE 42 U/L (15-37); BILIRUBIN,TOTAL 0.9 MG/DL (0.2-1.0); BLOOD UREA NITROGEN 36 mg/dL (7-18); CALCIUM 9.3 MG/DL (8.5-10.1); CARBON DIOXIDE 22 MMOL/L (21-32); CHLORIDE 116 MMOL/L (98-107); CREATININE 0.9 MG/DL (0.55-1.30); POTASSIUM 4.9 MMOL/L (3.5-5.1); SODIUM 148 MMOL/L (136-145)
--- NOTE | 2020-10-14 10:57 | NUR ---
NURSE NOTES: Patient no longer complaining of pain, resting comfortably in bed.
--- NOTE | 2020-10-14 11:54 | Pulmonology Progress Note ---
Subjective ROS Limited/Unobtainable: Yes Allergies: Coded Allergies: ADHESIVE TAPE (Verified Allergy, Unknown, 07/20/20) Uncoded Allergies: TAPE (Allergy, Unknown, 08/07/20) All Systems: reviewed and negative except above Objective Last 24 Hour Vital Signs Date Time Temp Pulse Resp B/P (MAP) Pulse Ox O2 Delivery O2 Flow Rate FiO2 10/14/20 09:05 46 16 40 10/14/20 08:00 Mechanical Ventilator 10/14/20 08:00 40 10/14/20 08:00 97.7 44 20 96/60 (72) 100 10/14/20 08:00 43 10/14/20 07:11 41 16 40 10/14/20 04:59 48 16 40 10/14/20 04:00 Mechanical Ventilator 10/14/20 04:00 40 10/14/20 04:00 97.9 45 18 103/56 (72) 100 10/14/20 03:45 56 10/14/20 03:40 47 16 40 10/14/20 00:38 52 16 40 10/14/20 00:00 98.2 48 18 118/58 (78) 100 10/14/20 00:00 Mechanical Ventilator 10/13/20 23:33 49 10/13/20 23:13 46 17 40 10/13/20 20:34 48 16 40 10/13/20 20:00 Mechanical Ventilator 10/13/20 20:00 40 10/13/20 20:00 56 10/13/20 20:00 98.1 54 15 118/58 (78) 100 10/13/20 19:12 56 16 40 10/13/20 17:00 53 16 40 10/13/20 16:00 98.1 51 16 98/42 (60) 100 10/13/20 16:00 40 10/13/20 16:00 Mechanical Ventilator 10/13/20 16:00 47 10/13/20 15:00 52 16 40 10/13/20 13:10 48 16 40 10/13/20 12:02 98.6 73 20 102/43 (62) 98 10/13/20 12:00 40 10/13/20 12:00 Mechanical Ventilator 10/13/20 12:00 53 Intake and Output 10/13/20 10/14/20 19:00 07:00 Intake Total 950 ml 763.70 ml Output Total 700 ml 400 ml Balance 250 ml 363.70 ml Free Water 290 ml 40 ml IV Total 173.70 ml Tube Feeding 660 ml 550 ml Output Urine Total 700 ml 400 ml # Bowel Movements 1 Microbiology Date/Time Source Procedure Growth Status 10/12/20 04:00 Nasal Nares MRSA Culture - Final Staphylococcus Aureus - Mrsa Complete 10/11/20 21:35 Rectum VRE Culture - Final Enterococcus Faecalis - Vre Enterococcus Faecium - Vre Complete 10/11/20 19:20 Blood Blood Culture - Final Serratia Marcescens Complete 10/11/20 19:00 Nasopharynx SARS-CoV-2 RdRp Gene Assay - Final Complete 10/11/20 19:00 Blood Blood Culture - Final Serratia Marcescens Complete Laboratory Tests 10/14/20 10:00: White Blood Count 16.3H, Red Blood Count 2.66L, Hemoglobin 8.3L, Hematocrit 26.4L, Mean Corpuscular Volume 99, Mean Corpuscular Hemoglobin 31.3H, Mean Corpuscular Hemoglobin Concent 31.6L, Red Cell Distribution Width 16.5H, Platelet Count 315, Mean Platelet Volume 7.2, Neutrophils (%) (Auto) 67.9, Lymphocytes (%) (Auto) 20.0, Monocytes (%) (Auto) 6.4, Eosinophils (%) (Auto) 4.5H, Basophils (%) (Auto) 1.2, Sodium Level 148H, Potassium Level 4.9, Chloride Level 116H, Carbon Dioxide Level 22, Anion Gap 10, Blood Urea Nitrogen 36H, Creatinine 0.9, Estimat Glomerular Filtration Rate > 60, Glucose Level 112H, Calcium Level 9.3, Total Bilirubin 0.9, Aspartate Amino Transf (AST/SGOT) 42H, Alanine Aminotransferase (ALT/SGPT) 48, Alkaline Phosphatase 277H, Total Protein 7.9, Albumin 2.9L, Globulin 5.0, Albumin/Globulin Ratio 0.6L Current Medications Medications (Trade) Dose Ordered Sig/Piedad Route PRN Reason Start Time Stop Time Status Last Admin Dose Admin Acetaminophen (Tylenol) 650 mg Q6H PRN GT Temp >100.5 10/11/20 23:00 11/10/20 22:59 Acetaminophen/ Hydrocodone Bitart ([place] [address]) 1 tab Q4H PRN GT For Pain 10/11/20 23:00 10/18/20 22:59 10/14/20 10:16 Ascorbic Acid (Vitamin C) 500 mg DAILY GT 10/12/20 09:00 11/11/20 08:59 10/14/20 09:08 Baclofen (Lioresal) 10 mg THREE TIMES A DAY GT 10/12/20 09:00 11/11/20 08:59 10/14/20 09:08 Levetiracetam (Keppra) 500 mg Q8HR GT 10/14/20 14:00 11/13/20 13:59 Magnesium Oxide (Mag-Ox 400mg) 400 mg DAILY GT 10/12/20 09:00 11/11/20 08:59 10/14/20 09:08 Metoclopramide HCl (Reglan) 10 mg Q8H PRN IVP Nausea & Vomiting 10/11/20 23:00 11/10/20 22:59 Morphine Sulfate (Morphine Sulfate) 4 mg Q4H PRN IVP Severe Pain (Pain Scale 7-10) 10/11/20 23:15 10/18/20 23:14 Multivitamins (Multivitamins W/ Minerals 15ml Liquid) 15 ml DAILY GT 10/12/20 09:00 11/11/20 08:59 10/14/20 09:08 Piperacillin Sod/ Tazobactam Sod 3.375 gm/Sodium Chloride 110 ml @ 27.5 mls/hr EVERY 8 HOURS IVPB 10/12/20 15:00 10/17/20 14:59 10/14/20 04:59 Polyethylene Glycol (Miralax) 17 gm BEDTIME PRN GT Constipation 10/11/20 23:00 11/10/20 22:59 Ursodiol (Actigall) 300 mg TWICE A DAY NG 10/12/20 09:00 01/10/21 08:59 10/14/20 09:08 Zinc Sulfate (Zinc Sulfate) 220 mg DAILY GT 10/12/20 09:00 01/10/21 08:59 10/14/20 09:08 Assessment/Plan Assessment/Plan Pulmonary Consultation HPI: Patient is a 35-year-old man with history of sickle cell disease, intracranial bleed, status post craniotomy, respiratory failure, admitted with recurrent sepsis and anemia. S/p tracheostomy and on mechanical ventilator. PAST MEDICAL HISTORY: 1. History of sickle cell disease. 2. Intracranial bleed, status post craniotomy. 3. Chronic respiratory failure, status post tracheostomy. SOCIAL HISTORY: No history of smoking, alcohol, or drug use. FAMILY HISTORY: Noncontributory. ROS Limited/Unobtainable: Yes Subjective stable overnight care noted Condition: stable Allergies: Coded Allergies: ADHESIVE TAPE (Verified Allergy, Unknown, 07/20/20) Uncoded Allergies: TAPE (Allergy, Unknown, 08/07/20) All Systems: reviewed and negative except above Objective Vital Signs Noted Objective: WDWN,previous craniotomy NAD reduced breath sounds bilaterally without rhonchi or wheeze [id number] without MRG NABS nontender GT no CCE reduced LOC Laboratory Tests noted Medications noted Assessment/Plan Assessment/Plan Recurrent sepsis s/p PICC line infection with positive BC, s/p removal of line History of previous MRSA sepsis probably due to infected Port-A-Cath Sickle cell anemia Chronic respiratory failure, ventilator dependent, with tracheostomy status Transaminitis Previous ICH,sp craniotomy Seizure disorder acute pneumonia leukocytosis Plan care noted stable pulmonary status IV antibiotics per ID respiratory care as is Ventilatory support - continue volume ventilation, oxygen therapy and titrate FIGURE SKATER meds supportive care suction no wean planned prognosis guarded medications/laboratory data/nursing notes reviewed in detail note reviewed and edited care discussed with RN and RT Benson Holden MD Oct 14, 2020 11:54
[2020-10-14 12:00] VITALS: BP 120/87
--- NOTE | 2020-10-14 12:08 | NUR ---
NURSE NOTES: Gave patient 300ml of water via G-tube for elevated sodium level.
[2020-10-14] MEDS: levETIRAcetam 500mg/5ml Liquid GT SCH ×2 (13:44→21:47)
--- NOTE | 2020-10-14 14:00 | General Progress Note ---
Subjective ROS Limited/Unobtainable: No Constitutional: Reports: malaise, weakness HEENT: Reports: no symptoms Cardiovascular: Reports: no symptoms Respiratory: Reports: cough, shortness of breath, sputum Gastrointestinal/Abdominal: Reports: difficulty swallowing Genitourinary: Reports: no symptoms Neurologic/Psychiatric: Reports: pre-existing deficit, seizure Endocrine: Reports: no symptoms Hematologic/Lymphatic: Reports: anemia Allergies: Coded Allergies: ADHESIVE TAPE (Verified Allergy, Unknown, 07/20/20) Uncoded Allergies: TAPE (Allergy, Unknown, 08/07/20) All Systems: reviewed and negative except above Subjective no events. stable on the vent. no fever or chills. no sob. wbc trending down. Na elevated. on iv abx. tolerating feeds. no szs. Objective Last 24 Hour Vital Signs Date Time Temp Pulse Resp B/P (MAP) Pulse Ox O2 Delivery O2 Flow Rate FiO2 10/14/20 13:07 45 16 40 10/14/20 12:00 40 10/14/20 12:00 96.7 65 20 120/87 (98) 100 10/14/20 12:00 Mechanical Ventilator 10/14/20 11:44 45 16 40 10/14/20 09:05 46 16 40 10/14/20 08:00 Mechanical Ventilator 10/14/20 08:00 40 10/14/20 08:00 97.7 44 20 96/60 (72) 100 10/14/20 08:00 43 10/14/20 07:11 41 16 40 10/14/20 04:59 48 16 40 10/14/20 04:00 Mechanical Ventilator 10/14/20 04:00 40 10/14/20 04:00 97.9 45 18 103/56 (72) 100 10/14/20 03:45 56 10/14/20 03:40 47 16 40 10/14/20 00:38 52 16 40 10/14/20 00:00 98.2 48 18 118/58 (78) 100 10/14/20 00:00 Mechanical Ventilator 10/13/20 23:33 49 10/13/20 23:13 46 17 40 10/13/20 20:34 48 16 40 10/13/20 20:00 Mechanical Ventilator 10/13/20 20:00 40 10/13/20 20:00 56 10/13/20 20:00 98.1 54 15 118/58 (78) 100 10/13/20 19:12 56 16 40 10/13/20 17:00 53 16 40 10/13/20 16:00 98.1 51 16 98/42 (60) 100 10/13/20 16:00 40 10/13/20 16:00 Mechanical Ventilator 10/13/20 16:00 47 10/13/20 15:00 52 16 40 Intake and Output 10/13/20 10/14/20 19:00 07:00 Intake Total 950 ml 763.70 ml Output Total 700 ml 400 ml Balance 250 ml 363.70 ml Free Water 290 ml 40 ml IV Total 173.70 ml Tube Feeding 660 ml 550 ml Output Urine Total 700 ml 400 ml # Bowel Movements 1 Laboratory Tests 10/14/20 10:00: White Blood Count 16.3H, Red Blood Count 2.66L, Hemoglobin 8.3L, Hematocrit 26.4L, Mean Corpuscular Volume 99, Mean Corpuscular Hemoglobin 31.3H, Mean Corpuscular Hemoglobin Concent 31.6L, Red Cell Distribution Width 16.5H, Platelet Count 315, Mean Platelet Volume 7.2, Neutrophils (%) (Auto) 67.9, Lymp hocytes (%) (Auto) 20.0, Monocytes (%) (Auto) 6.4, Eosinophils (%) (Auto) 4.5H, Basophils (%) (Auto) 1.2, Sodium Level 148H, Potassium Level 4.9, Chloride Level 116H, Carbon Dioxide Level 22, Anion Gap 10, Blood Urea Nitrogen 36H, Creatinine 0.9, Estimat Glomerular Filtration Rate > 60, Glucose Level 112H, Calcium Level 9.3, Total Bilirubin 0.9, Aspartate Amino Transf (AST/SGOT) 42H, Alanine Aminotransferase (ALT/SGPT) 48, Alkaline Phosphatase 277H, Total Protein 7.9, Albumin 2.9L, Globulin 5.0, Albumin/Globulin Ratio 0.6L Height (Feet): 5 Height (Inches): 7.00 Weight (Pounds): 110 Objective General Appearance: WD/WN, alert EENT: normal ENT inspection Neck: non-tender, normal alignment, supple Cardiovascular: normal peripheral pulses, normal rate, regular rhythm Respiratory/Chest: chest wall non-tender, lungs clear, normal breath sounds Edema: no edema noted Arm (L), no edema noted Arm (R) Assessment/Plan Problem List: (1) Bacteremia associated with intravascular line ICD Codes: T82.7XXA - Infection and inflammatory reaction due to other cardiac and vascular devices, implants and grafts, initial encounter; R78.81 - Bacteremia SNOMED: 866897983 (2) Sickle cell crisis ICD Codes: D57.00 - Hb-SS disease with crisis, unspecified SNOMED: 341719574 (3) Leukocytosis ICD Codes: D72.829 - Elevated white blood cell count, unspecified SNOMED: 296752315, 529630784 (4) Anemia ICD Codes: D64.9 - Anemia, unspecified SNOMED: 133442516 Status: stable, progressing Assessment/Plan: iv abx follow up cultures monitor h/h vent pt/ot sz rx tube feeds increase water flushes monitor Lalo Marx MD Oct 14, 2020 14:00
--- NOTE | 2020-10-14 14:39 | NUR ---
NURSE NOTES: Patient's Right AC 22g was found dislodged next to patient, will attempt to insert new IV.
--- NOTE | 2020-10-14 14:43 | Surgery Progress Note ---
Surgery Progress Note Subjective Additional Comments labs improving trach balloon malfunction no n/v will need to replace trach but currently stable volumes and saturation Objective Last 24 Hour Vital Signs Date Time Temp Pulse Resp B/P (MAP) Pulse Ox O2 Delivery O2 Flow Rate FiO2 10/14/20 13:07 45 16 40 10/14/20 12:00 40 10/14/20 12:00 96.7 65 20 120/87 (98) 100 10/14/20 12:00 Mechanical Ventilator 10/14/20 12:00 50 10/14/20 11:44 45 16 40 10/14/20 09:05 46 16 40 10/14/20 08:00 Mechanical Ventilator 10/14/20 08:00 40 10/14/20 08:00 97.7 44 20 96/60 (72) 100 10/14/20 08:00 43 10/14/20 07:11 41 16 40 10/14/20 04:59 48 16 40 10/14/20 04:00 Mechanical Ventilator 10/14/20 04:00 40 10/14/20 04:00 97.9 45 18 103/56 (72) 100 10/14/20 03:45 56 10/14/20 03:40 47 16 40 10/14/20 00:38 52 16 40 10/14/20 00:00 98.2 48 18 118/58 (78) 100 10/14/20 00:00 Mechanical Ventilator 10/13/20 23:33 49 10/13/20 23:13 46 17 40 10/13/20 20:34 48 16 40 10/13/20 20:00 Mechanical Ventilator 10/13/20 20:00 40 10/13/20 20:00 56 10/13/20 20:00 98.1 54 15 118/58 (78) 100 10/13/20 19:12 56 16 40 10/13/20 17:00 53 16 40 10/13/20 16:00 98.1 51 16 98/42 (60) 100 10/13/20 16:00 40 10/13/20 16:00 Mechanical Ventilator 10/13/20 16:00 47 10/13/20 15:00 52 16 40 I&O Intake and Output 0 10/13/20 10/14/20 19:00 07:00 Intake Total 950 ml 763.70 ml Output Total 700 ml 400 ml Balance 250 ml 363.70 ml Free Water 290 ml 40 ml IV Total 173.70 ml Tube Feeding 660 ml 550 ml Output Urine Total 700 ml 400 ml # Bowel Movements 1 Dressing: saturated Cardiovascular: RSR Respiratory: decreased breath sounds Abdomen: non-tender, present bowel sounds Extremities: no edema, no tenderness, no cyanosis Laboratory Tests Test 10/14/20 10:00 White Blood Count 16.3 K/UL (4.8-10.8) H Red Blood Count 2.66 M/UL (4.70-6.10) L Hemoglobin 8.3 G/DL (14.2-18.0) L Hematocrit 26.4 % (42.0-52.0) L Mean Corpuscular Volume 99 FL (80-99) Mean Corpuscular Hemoglobin 31.3 PG (27.0-31.0) H Mean Corpuscular Hemoglobin Concent 31.6 G/DL (32.0-36.0) L Red Cell Distribution Width 16.5 % (11.6-14.8) H Platelet Count 315 K/UL (150-450) Mean Platelet Volume 7.2 FL (6.5-10.1) Neutrophils (%) (Auto) 67.9 % (45.0-75.0) Lymphocytes (%) (Auto) 20.0 % (20.0-45.0) Monocytes (%) (Auto) 6.4 % (1.0-10.0) Eosinophils (%) (Auto) 4.5 % (0.0-3.0) H Basophils (%) (Auto) 1.2 % (0.0-2.0) Sodium Level 148 MMOL/L (136-145) H Potassium Level 4.9 MMOL/L (3.5-5.1) Chloride Level 116 MMOL/L (98-107) H Carbon Dioxide Level 22 MMOL/L (21-32) Anion Gap 10 mmol/L (5-15) Blood Urea Nitrogen 36 mg/dL (7-18) H Creatinine 0.9 MG/DL (0.55-1.30) Estimat Glomerular Filtration Rate > 60 mL/min (>60) Glucose Level 112 MG/DL (74-106) H Calcium Level 9.3 MG/DL (8.5-10.1) Total Bilirubin 0.9 MG/DL (0.2-1.0) Aspartate Amino Transf (AST/SGOT) 42 U/L (15-37) H Alanine Aminotransferase (ALT/SGPT) 48 U/L (12-78) Alkaline Phosphatase 277 U/L (46-116) H Total Protein 7.9 G/DL (6.4-8.2) Albumin 2.9 G/DL (3.4-5.0) L Globulin 5.0 g/dL Albumin/Globulin Ratio 0.6 (1.0-2.7) L Plan Problems: (1) Sickle cell anemia (2) Sickle cell crisis (3) Anemia (4) Leukocytosis Assessment & Plan: line out cont abx trends labs abx as per ID respiratory improved will need to replace trach but currently stable volumes and saturation (5) Bacteremia associated with intravascular line Assessment & Plan: PICC line removed on abx dressings changed prn wounds table without signs of infection likely etiology picc DAILY ESTIMATED NEEDS: Needs based on Underweight, Critical care, wound/ 50kg 25-35 kcals/kg 0163-5329 total kcals 1.25-2 g protein/kg 63-100 g total protein 25-30 mL/kg 5199-2289 total fluid mLs NUTRITION DIAGNOSIS: Swallowing difficulty R/T respiratory status, dysphagia as evidenced by h/o craniotomy, trach/vent dep, on GT feeds. CURRENT TF:Vital 1.2 @55ml/hr ENTERAL NUTRITION RECOMMENDATIONS: Jevity 1.2 @ 55ml/hr x 24 hrs to provide 1320ml, 1584kcal, 73g prot, 1065ml free water * As medically appropriate, intiiate Jevity 1.2 @ 35ml/hr x 6hrs * Advance 10ml q 4-6 hrs as tolerated to goal * HOB over 30 degrees/ water flush per MD ADDITIONAL RECOMMENDATIONS: * Daily calibrated bedscale wt- wts appear stable * Wound healing: TF rec @ goal will provide 100% RDI Add AMADOR BID, F/up w/ WC eval * Monitor lytes-> need for renal formula * Monitor tolerance to TF, need for TF change (6) Decubitus skin ulcer Assessment & Plan: SACRUM- STAGE II PRESSURE ULCER MEASURING 1.5X0.5X0.2CM. WOUND BED PINK WITH MINIMAL SERO-SANGUINEOUS DRAINAGE. RECOMMEND-CLEAN WITH SALINE. PAT DRY. APPLY CALAZINE AND COVER WITH OPTIFOAM DRESSING. REPLACE DAILY. LEFT HEEL- STAGE I PRESSURE ULCER. 4X4X0.1CM NON-BLANCHABLE ERYTHEMA NOTED. RECOMMEND-APPLY SKIN CAVILON BARRIER AND COVER WITH OPTIFOAM DRESSING. REPLACE EVERY 3 DAYS. CONTINUE WOUND PREVENTION PROTOCOLS. REPOSITION AT LEAST EVERY 2 HOURS OR TOLERATED OFF-LOAD HEELS WITH PILLOWS (7) Tachycardia (8) Sepsis (9) Pneumonia (10) Severe sepsis (11) Port-A-Cath in place (12) Acute prerenal azotemia Harman Zhao Oct 14, 2020 14:43
--- NOTE | 2020-10-14 14:59 | NUR ---
NURSE NOTES: Patient is refusing IV to be put in. Gave patient teaching on importance, risks, and benefits of having an IV and patient is refusing care.
--- NOTE | 2020-10-14 15:17 | NUR ---
NURSE NOTES: RN attempted to place new IV but patient is becoming aggravated and refusing IV insertion. Requested Charge Nurse to attempt IV, but patient is continuing to refuse.
--- NOTE | 2020-10-14 15:20 | NUR ---
NURSE NOTES: Dr. Celaya informed that patient is refusing IV insertion.
--- NOTE | 2020-10-14 15:31 | Infectious Diseases Prog Note ---
Assessment/Plan Assessment/Plan A: 1. Serratia sepsis likely secondary to PICC line infection. The PICC line has been removed. 2. Leukocytosis is improving. 3. Intracranial bleed, status post craniotomy. 4. COVID-19 negative. 5. Sickle cell disease. 6. MRSA carrier 7. VDRF PLAN: 1. Change Zosyn to Ceftriaxone 2. Give also Levaquin until IV access provided Subjective ROS Limited/Unobtainable: Yes Constitutional: Denies: fever Respiratory: Reports: dry cough Cardiovascular: Reports: no symptoms, other - PICC line was removed Gastrointestinal/Abdominal: Reports: no symptoms Allergies: Coded Allergies: ADHESIVE TAPE (Verified Allergy, Unknown, 07/20/20) Uncoded Allergies: TAPE (Allergy, Unknown, 08/07/20) Objective Last 24 Hour Vital Signs Date Time Temp Pulse Resp B/P (MAP) Pulse Ox O2 Delivery O2 Flow Rate FiO2 10/14/20 13:07 45 16 40 10/14/20 12:00 40 10/14/20 12:00 96.7 65 20 120/87 (98) 100 10/14/20 12:00 Mechanical Ventilator 10/14/20 12:00 50 10/14/20 11:44 45 16 40 10/14/20 09:05 46 16 40 10/14/20 08:00 Mechanical Ventilator 10/14/20 08:00 40 10/14/20 08:00 97.7 44 20 96/60 (72) 100 10/14/20 08:00 43 10/14/20 07:11 41 16 40 10/14/20 04:59 48 16 40 10/14/20 04:00 Mechanical Ventilator 10/14/20 04:00 40 10/14/20 04:00 97.9 45 18 103/56 (72) 100 10/14/20 03:45 56 10/14/20 03:40 47 16 40 10/14/20 00:38 52 16 40 10/14/20 00:00 98.2 48 18 118/58 (78) 100 10/14/20 00:00 Mechanical Ventilator 10/13/20 23:33 49 10/13/20 23:13 46 17 40 10/13/20 20:34 48 16 40 10/13/20 20:00 Mechanical Ventilator 10/13/20 20:00 40 10/13/20 20:00 56 10/13/20 20:00 98.1 54 15 118/58 (78) 100 10/13/20 19:12 56 16 40 10/13/20 17:00 53 16 40 10/13/20 16:00 98.1 51 16 98/42 (60) 100 10/13/20 16:00 40 10/13/20 16:00 Mechanical Ventilator 10/13/20 16:00 47 Height (Feet): 5 Height (Inches): 7.00 Weight (Pounds): 110 HEENT: status post trach, other - R craniotomy Respiratory/Chest: lungs clear, other - on ventilator Cardiovascular: bradycardia Abdomen: soft, non tender, other - GT in plce Extremities: no edema Neurologic/Psychiatric: alert, responsive Musculoskeletal: atrophy Microbiology Date/Time Source Procedure Growth Status 10/12/20 04:00 Nasal Nares MRSA Culture - Final Staphylococcus Aureus - Mrsa Complete 10/11/20 21:35 Rectum VRE Culture - Final Enterococcus Faecalis - Vre Enterococcus Faecium - Vre Complete 10/11/20 19:20 Blood Blood Culture - Final Serratia Marcescens Complete 10/11/20 19:00 Nasopharynx SARS-CoV-2 RdRp Gene Assay - Final Complete 10/11/20 19:00 Blood Blood Culture - Final Serratia Marcescens Complete Laboratory Tests Test 10/14/20 10:00 White Blood Count 16.3 K/UL (4.8-10.8) H Red Blood Count 2.66 M/UL (4.70-6.10) L Hemoglobin 8.3 G/DL (14.2-18.0) L Hematocrit 26.4 % (42.0-52.0) L Mean Corpuscular Volume 99 FL (80-99) Mean Corpuscular Hemoglobin 31.3 PG (27.0-31.0) H Mean Corpuscular Hemoglobin Concent 31.6 G/DL (32.0-36.0) L Red Cell Distribution Width 16.5 % (11.6-14.8) H Platelet Count 315 K/UL (150-450) Mean Platelet Volume 7.2 FL (6.5-10.1) Neutrophils (%) (Auto) 67.9 % (45.0-75.0) Lymphocytes (%) (Auto) 20.0 % (20.0-45.0) Monocytes (%) (Auto) 6.4 % (1.0-10.0) Eosinophils (%) (Auto) 4.5 % (0.0-3.0) H Basophils (%) (Auto) 1.2 % (0.0-2.0) Sodium Level 148 MMOL/L (136-145) H Potassium Level 4.9 MMOL/L (3.5-5.1) Chloride Level 116 MMOL/L (98-107) H Carbon Dioxide Level 22 MMOL/L (21-32) Anion Gap 10 mmol/L (5-15) Blood Urea Nitrogen 36 mg/dL (7-18) H Creatinine 0.9 MG/DL (0.55-1.30) Estimat Glomerular Filtration Rate > 60 mL/min (>60) Glucose Level 112 MG/DL (74-106) H Calcium Level 9.3 MG/DL (8.5-10.1) Total Bilirubin 0.9 MG/DL (0.2-1.0) Aspartate Amino Transf (AST/SGOT) 42 U/L (15-37) H Alanine Aminotransferase (ALT/SGPT) 48 U/L (12-78) Alkaline Phosphatase 277 U/L (46-116) H Total Protein 7.9 G/DL (6.4-8.2) Albumin 2.9 G/DL (3.4-5.0) L Globulin 5.0 g/dL Albumin/Globulin Ratio 0.6 (1.0-2.7) L Current Medications Medications (Trade) Dose Ordered Sig/Piedad Route PRN Reason Start Time Stop Time Status Last Admin Dose Admin Acetaminophen (Tylenol) 650 mg Q6H PRN GT Temp >100.5 10/11/20 23:00 11/10/20 22:59 Acetaminophen/ Hydrocodone Bitart ([place] 10/325) 1 tab Q4H PRN GT For Pain 10/11/20 23:00 10/18/20 22:59 10/14/20 10:16 Ascorbic Acid (Vitamin C) 500 mg DAILY GT 10/12/20 09:00 11/11/20 08:59 10/14/20 09:08 Baclofen (Lioresal) 10 mg THREE TIMES A DAY GT 10/12/20 09:00 11/11/20 08:59 10/14/20 13:44 Ceftriaxone Sodium 2 gm/ Dextrose 55 ml @ 110 mls/hr Q24H IVPB 10/14/20 15:30 10/21/20 15:29 UNV Levetiracetam (Keppra) 500 mg Q8HR GT 10/14/20 14:00 11/13/20 13:59 10/14/20 13:44 Magnesium Oxide (Mag-Ox 400mg) 400 mg DAILY GT 10/12/20 09:00 11/11/20 08:59 10/14/20 09:08 Metoclopramide HCl (Reglan) 10 mg Q8H PRN IVP Nausea & Vomiting 10/11/20 23:00 11/10/20 22:59 Morphine Sulfate (Morphine Sulfate) 4 mg Q4H PRN IVP Severe Pain (Pain Scale 7-10) 10/11/20 23:15 10/18/20 23:14 Multivitamins (Multivitamins W/ Minerals 15ml Liquid) 15 ml DAILY GT 10/12/20 09:00 11/11/20 08:59 10/14/20 09:08 Polyethylene Glycol (Miralax) 17 gm BEDTIME PRN GT Constipation 10/11/20 23:00 11/10/20 22:59 Ursodiol (Actigall) 300 mg TWICE A DAY NG 10/12/20 09:00 01/10/21 08:59 10/14/20 09:08 Zinc Sulfate (Zinc Sulfate) 220 mg DAILY GT 10/12/20 09:00 01/10/21 08:59 10/14/20 09:08 Wyatt Kemp MD Oct 14, 2020 15:31
--- NOTE | 2020-10-14 15:34 | NUR ---
NURSE NOTES: Patient seen and assessed by Dr. Kemp
[2020-10-14 16:00] VITALS: BP 115/73
--- NOTE | 2020-10-14 16:52 | NUR ---
NURSE NOTES: Mother came to visit patient, updated mother on status of patient. Mother was able to convince patient to have IV inserted. Unable to obtain IV line. Dr. Holden came and assessed patient, gave recommendation for PICC line.
[2020-10-14] MEDS ORDERED: Lidocaine 1% Plain 30 ml INJ PRN (17:15)
[2020-10-14] MEDS ORDERED: Heparin1,000 units/500ml Premix(Conc:2 units/ml) IV PRN (17:15)
--- NOTE | 2020-10-14 19:09 | NUR ---
NURSE HAND-OFF REPORT: Important Events on Shift: Patient Status: stable, no IV access, MD aware. Diet: Jevity 1.2 at 55ml/hr Pending Orders: PICC Placement 10/16 Pending Results/Labs:n/a Pending MD notification:n/a Latest Vital Signs: Temperature 98.1 , Pulse 53 , B/P 115 /73 , Respiratory Rate 20 , O2 SAT 100 , Mechanical Ventilator, O2 Flow Rate . Vital Sign Comment: stable EKG Rhythm: Sinus Rhythm Rhythm change?: N MD Notified?: - MD Response: Latest Stevens Fall Score: 50 Fall Risk: High Risk Safety Measures: Call light Within Reach, Bed Alarm Zone 2, Side Rails Side Rails x3, Bed position Low and Locked. Fall Precautions: Yellow Socks Yellow Gown Door Sign Patient Fall Education Report given to Jos STODDARD.
--- NOTE | 2020-10-14 19:30 | NUR ---
NURSE NOTES: Pt is resting on the bed and awake and confused. Trach to Vent dependent and setting with AC: 16, T: 500, P:5, FiO2 40% and SaO2 100% noted. Given suction and oral care. Pt has G-tube and on running with Jevity 1.2 @ 55cc/hr. No residual noted. On condom cath and in place. Dressing is clean and dry on wound area. No IV line noted. Pt strongly refuse insert new IV line and resisting care. Explained benefits and risks. Turn and reposition. On threat monitoring analyst with SB and HR: 45-50's. Placed fall and seizure precaution. Will continue to care plan.
[2020-10-14 20:00] VITALS: BP 108/59
[2020-10-14] MEDS: Dyna-Hex 2% Top Sol 2oz TOPIC SCH (20:00)
[2020-10-14] MEDS: Levofloxacin 750mg tab GT SCH (20:31)
[2020-10-14] MEDS ORDERED: cefTRIAXone 2 GM in D5W 55 ML IVPB SCH (21:00)
[2020-10-15] VITALS: BP 101/55
--- NOTE | 2020-10-15 01:15 | NUR ---
NURSE NOTES: Received report from Robbie Arguello. Pt is resting on the bed and awake and confused. On trach to Vent dependent and tolerating settings. Pt has G-tube running with Jevity 1.2 @ 55cc/hr. No residual noted. On condom cath and in place. No IV line noted. On library monitor with SB and HR: 45-50's. Placed fall and seizure precaution. Will continue to care plan.
--- NOTE | 2020-10-15 01:20 | NUR ---
NURSE HAND-OFF REPORT: Latest Vital Signs: Temperature 97.5 , Pulse 49 , B/P 101 /55 , Respiratory Rate 20 , O2 SAT 100 , Mechanical Ventilator, O2 Flow Rate . EKG Rhythm: Sinus Bradycardia Rhythm change?: N MD Notified?: - MD Response: Latest Stevens Fall Score: 50 Fall Risk: High Risk Safety Measures: Call light Within Reach, Bed Alarm Zone 2, Side Rails Side Rails x3, Bed position Low and Locked. Fall Precautions: Yellow Socks Yellow Gown Door Sign Patient Fall Education Report given to ARLYN Cantor. Pt is resting on the bed and no sign of acute distress noted.
--- NOTE | 2020-10-15 03:21 | NUR ---
NURSE NOTES: Attempted to place new IV but patient is becoming aggravated and refusing IV insertion.
[2020-10-15 04:00] VITALS: BP 105/56
--- NOTE | 2020-10-15 04:00 | NUR ---
NURSE NOTES: Pt in bed, awake. In no apparent distress noted. Partial sponge bath given. Had 1 bowel movement. All needs attended, kept cleaned and dry. Safety measures in placed. Will continue to monitor.
[2020-10-15] MEDS: levETIRAcetam 500mg/5ml Liquid GT SCH ×3 (05:21→22:36)
--- NOTE | 2020-10-15 07:20 | NUR ---
NURSE NOTES: Received report from ARLYN Zaidi. Patient is on bed, lying semi fowlers. Patient is trach-vent settings: S6, AC 16, Vt 500, PEEP 5, FiO2 40%. Patient is tolerating settings well. He responds when greeted and mouths words. Reported from the previous shift that rhythm is SB (lowest 40s) and still SB with 44bpm. Currently no IV and talked to patient regarding starting an IV line but is still refusing. Doctor is aware of patient not having an IV line and has an order for PICC line Tuesday 10/16 and mother of patient has already consented. CXR order today 10/15. Bed is locked, on lowest position, and side rails are up. Patient will continue to be monitored.
--- NOTE | 2020-10-15 07:43 | NUR ---
NURSE HAND-OFF REPORT: Important Events on Shift: Patient Status: Stable Diet: Jevity 1.2 Pending Orders: Pending Results/Labs: Pending MD notification: Latest Vital Signs: Temperature 97.5 , Pulse 45 , B/P 105 /56 , Respiratory Rate 16 , O2 SAT 100 , Mechanical Ventilator, O2 Flow Rate . Vital Sign Comment: Stable EKG Rhythm: Sinus Momo Rhythm change?: N MD Notified?: - MD Response: Latest Stevens Fall Score: 50 Fall Risk: High Risk Safety Measures: Call light Within Reach, Bed Alarm Zone 2, Side Rails Side Rails x3, Bed position Low and Locked. Fall Precautions: Yellow Socks Yellow Gown Door Sign Patient Fall Education Report given to ARLYN Fernandez .
[2020-10-15 08:00] VITALS: BP 108/69
[2020-10-15] MEDS: Ascorbic Acid 500mg tab GT SCH (08:25)
[2020-10-15] MEDS: Magnesium Oxide 400mg tab GT SCH (08:29)
[2020-10-15] MEDS: Multivitamins W/Minerals 15 ML UDC GT SCH (08:29)
[2020-10-15] MEDS: Levofloxacin 750mg tab GT SCH (08:29)
[2020-10-15] MEDS: Zinc Sulfate 220mg GT SCH (08:29)
[2020-10-15] MEDS: Ursodiol 300mg cap NG SCH ×2 (08:29→17:03)
--- NOTE | 2020-10-15 08:42 | Diagnostic Imaging Report ---
EXAM: XR Chest, 1 View CLINICAL HISTORY: F/U TECHNIQUE: Frontal view of the chest. COMPARISON: Chest radiograph October 11, 2020 FINDINGS/IMPRESSION: Midline tracheostomy tube. Dependent atelectasis. No focal consolidation, pleural effusion, or pneumothorax. Mild prominent heart size.
--- NOTE | 2020-10-15 11:13 | General Progress Note ---
Subjective ROS Limited/Unobtainable: No Constitutional: Reports: malaise, weakness HEENT: Reports: no symptoms Cardiovascular: Reports: no symptoms Respiratory: Reports: cough, shortness of breath, sputum Gastrointestinal/Abdominal: Reports: difficulty swallowing Genitourinary: Reports: no symptoms Neurologic/Psychiatric: Reports: pre-existing deficit, seizure Endocrine: Reports: no symptoms Hematologic/Lymphatic: Reports: anemia Allergies: Coded Allergies: ADHESIVE TAPE (Verified Allergy, Unknown, 07/20/20) Uncoded Allergies: TAPE (Allergy, Unknown, 08/07/20) All Systems: reviewed and negative except above Subjective no events. stable on the vent. no fever or chills. no sob. wbc trending down. Na elevated. on iv abx. tolerating feeds. no szs. refusing IV insertion. Objective Last 24 Hour Vital Signs Date Time Temp Pulse Resp B/P (MAP) Pulse Ox O2 Delivery O2 Flow Rate FiO2 10/15/20 10:51 64 17 40 10/15/20 09:06 52 16 40 10/15/20 08:00 96.8 46 16 108/69 (82) 100 10/15/20 08:00 Mechanical Ventilator 10/15/20 08:00 40 10/15/20 07:36 46 10/15/20 07:08 45 16 40 10/15/20 05:30 43 16 40 10/15/20 04:00 97.5 50 18 105/56 (72) 100 10/15/20 04:00 40 10/15/20 04:00 Mechanical Ventilator 10/15/20 03:31 45 10/15/20 03:30 48 16 40 10/15/20 01:25 55 16 40 10/15/20 00:00 49 10/15/20 00:00 40 10/15/20 00:00 Mechanical Ventilator 10/15/20 00:00 97.5 50 20 101/55 (70) 100 10/14/20 23:05 49 16 40 10/14/20 20:41 50 16 40 10/14/20 20:00 50 10/14/20 20:00 40 10/14/20 20:00 97.5 49 20 108/59 (75) 100 10/14/20 20:00 Mechanical Ventilator 10/14/20 19:30 51 16 40 10/14/20 17:15 53 20 40 10/14/20 16:00 98.1 86 20 115/73 (87) 100 10/14/20 16:00 40 10/14/20 16:00 Mechanical Ventilator 10/14/20 15:35 51 16 40 10/14/20 15:31 50 10/14/20 13:07 45 16 40 10/14/20 12:00 40 10/14/20 12:00 96.7 65 20 120/87 (98) 100 10/14/20 12:00 Mechanical Ventilator 10/14/20 12:00 50 10/14/20 11:44 45 16 40 Intake and Output 10/14/20 10/15/20 19:00 07:00 Intake Total 1122.33 ml 695 ml Output Total 500 ml 1200 ml Balance 622.33 ml -505 ml Free Water 400 ml 90 ml IV Total 62.33 ml Tube Feeding 660 ml 605 ml Output Urine Total 500 ml 1200 ml # Bowel Movements 1 Height (Feet): 5 Height (Inches): 7.00 Weight (Pounds): 110 Objective General Appearance: WD/WN, alert EENT: normal ENT inspection Neck: non-tender, normal alignment, supple Cardiovascular: normal peripheral pulses, normal rate, regular rhythm Respiratory/Chest: chest wall non-tender, lungs clear, normal breath sounds Edema: no edema noted Arm (L), no edema noted Arm (R) Assessment/Plan Problem List: (1) Bacteremia associated with intravascular line ICD Codes: T82.7XXA - Infection and inflammatory reaction due to other cardiac and vascular devices, implants and grafts, initial encounter; R78.81 - Bacteremia SNOMED: 065869661 (2) Sickle cell crisis ICD Codes: D57.00 - Hb-SS disease with crisis, unspecified SNOMED: 756512633 (3) Leukocytosis ICD Codes: D72.829 - Elevated white blood cell count, unspecified SNOMED: 474603170, 603992666 (4) Anemia ICD Codes: D64.9 - Anemia, unspecified SNOMED: 873338208 Status: stable, progressing Assessment/Plan: iv abx follow up cultures monitor h/h vent pt/ot sz rx tube feeds increase water flushes monitor lytes picc tomorrow Lalo Celaya MD Oct 15, 2020 11:13
--- NOTE | 2020-10-15 11:50 | Infectious Diseases Prog Note ---
Assessment/Plan Assessment/Plan antibiotics : ceftriaxone, levoquin A 1. serratia sepsis s/p catheter removal 2. sickle cell disease 3. intracranial bleed s/p craniotomy 4. respiratory failure 5. leucocytosis improving P 1. patient refusing iv access 2. d/c ceftriaxone, levoquin 3. start po bactrim, continue 5 more days Subjective ROS Limited/Unobtainable: Yes Allergies: Coded Allergies: ADHESIVE TAPE (Verified Allergy, Unknown, 07/20/20) Uncoded Allergies: TAPE (Allergy, Unknown, 08/07/20) Objective Last 24 Hour Vital Signs Date Time Temp Pulse Resp B/P (MAP) Pulse Ox O2 Delivery O2 Flow Rate FiO2 10/15/20 10:51 64 17 40 10/15/20 09:06 52 16 40 10/15/20 08:00 96.8 46 16 108/69 (82) 100 10/15/20 08:00 Mechanical Ventilator 10/15/20 08:00 40 10/15/20 07:36 46 10/15/20 07:08 45 16 40 10/15/20 05:30 43 16 40 10/15/20 04:00 97.5 50 18 105/56 (72) 100 10/15/20 04:00 40 10/15/20 04:00 Mechanical Ventilator 10/15/20 03:31 45 10/15/20 03:30 48 16 40 10/15/20 01:25 55 16 40 10/15/20 00:00 49 10/15/20 00:00 40 10/15/20 00:00 Mechanical Ventilator 10/15/20 00:00 97.5 50 20 101/55 (70) 100 10/14/20 23:05 49 16 40 10/14/20 20:41 50 16 40 10/14/20 20:00 50 10/14/20 20:00 40 10/14/20 20:00 97.5 49 20 108/59 (75) 100 10/14/20 20:00 Mechanical Ventilator 10/14/20 19:30 51 16 40 10/14/20 17:15 53 20 40 10/14/20 16:00 98.1 86 20 115/73 (87) 100 10/14/20 16:00 40 10/14/20 16:00 Mechanical Ventilator 10/14/20 15:35 51 16 40 10/14/20 15:31 50 11/14/20 13:07 45 16 40 10/14/20 12:00 40 10/14/20 12:00 96.7 65 20 120/87 (98) 100 10/14/20 12:00 Mechanical Ventilator 10/14/20 12:00 50 Height (Feet): 5 Height (Inches): 7.00 Weight (Pounds): 110 HEENT: status post trach Respiratory/Chest: lungs clear Cardiovascular: normal rate, regular rhythm, no gallop/murmur Abdomen: soft, non tender, other - GT Extremities: no edema Current Medications Medications (Trade) Dose Ordered Sig/Piedad Route PRN Reason Start Time Stop Time Status Last Admin Dose Admin Acetaminophen (Tylenol) 650 mg Q6H PRN GT Temp >100.5 10/11/20 23:00 11/10/20 22:59 Acetaminophen/ Hydrocodone Bitart ([place] 10/325) 1 tab Q4H PRN GT For Pain 10/11/20 23:00 10/18/20 22:59 10/14/20 10:16 Ascorbic Acid (Vitamin C) 500 mg DAILY GT 10/12/20 09:00 11/11/20 08:59 10/15/20 08:25 Baclofen (Lioresal) 10 mg THREE TIMES A DAY GT 10/12/20 09:00 11/11/20 08:59 10/15/20 08:29 Ceftriaxone Sodium 2 gm/ Dextrose 55 ml @ 110 mls/hr Q24H IVPB 10/14/20 21:00 10/21/20 20:59 Chlorhexidine Gluconate (Christy-Hex 2%) 1 applic DAILY@2000 TOPIC 10/14/20 20:00 01/12/21 19:59 Heparin Sodium/ Sodium Chloride (Heparin 1000 units/500ml Premix) 1,000 unit ONCE PRN IV PICC LINE PLACEMENT 10/14/20 17:15 10/16/20 17:14 Levetiracetam (Keppra) 500 mg Q8HR GT 10/14/20 14:00 11/13/20 13:59 10/15/20 05:21 Levofloxacin (Levaquin) 750 mg DAILY GT 10/14/20 21:00 10/21/20 20:59 10/15/20 08:29 Lidocaine HCl (Xylocaine 1% 30ml) 30 ml ONCE PRN INJ PICC LINE PLACEMENT 10/14/20 17:15 10/16/20 17:14 Magnesium Oxide (Mag-Ox 400mg) 400 mg DAILY GT 10/12/20 09:00 11/11/20 08:59 10/15/20 08:29 Metoclopramide HCl (Reglan) 10 mg Q8H PRN IVP Nausea & Vomiting 10/11/20 23:00 11/10/20 22:59 Morphine Sulfate (Morphine Sulfate) 4 mg Q4H PRN IVP Severe Pain (Pain Scale 7-10) 10/11/20 23:15 10/18/20 23:14 Multivitamins (Multivitamins W/ Minerals 15ml Liquid) 15 ml DAILY GT 10/12/20 09:00 11/11/20 08:59 10/15/20 08:29 Polyethylene Glycol (Miralax) 17 gm BEDTIME PRN GT Constipation 10/11/20 23:00 11/10/20 22:59 Ursodiol (Actigall) 300 mg TWICE A DAY NG 10/12/20 09:00 01/10/21 08:59 10/15/20 08:29 Zinc Sulfate (Zinc Sulfate) 220 mg DAILY GT 10/12/20 09:00 01/10/21 08:59 10/15/20 08:29 Isabelle Degroot MD Oct 15, 2020 11:50
[2020-10-15 12:00] VITALS: BP 117/67
--- NOTE | 2020-10-15 12:57 | NUR ---
CASE MANAGEMENT:REVIEW 10/14/20 SI;BENNIE SEPSIS. SICKLE CELL. RESP FAILURE. LEUKOCYTOSIS. T 96.7 P 41 R 20 BP 96/60 O2 100% TRACH/VENT FIO2 40% WBC 16.3 H/H 8.3/26.4 NA 148 BUN 36 AST 42 ALP 277 ALB 2.9 IS;KEPPRA GT Q8 ZOSYN IV Q8 MAG-OX GT QD ACTIGALL GT BID NORCO GT Q4 PRN ZINC SULFATE GT QD BACLOFEN GT BID HARRIET STATUS DCP;FROM [facility]
[2020-10-15] MEDS: Bactrim-DS 1 tab ORAL SCH ×2 (13:10→20:27)
--- NOTE | 2020-10-15 13:23 | NUR ---
RD ASSESSMENT & RECOMMENDATIONS SEE CARE ACTIVITY FOR COMPLETE ASSESSMENT DAILY ESTIMATED NEEDS: Needs based on Underweight, Critical care, wound/ 50kg 25-35 kcals/kg 3774-4497 total kcals 1.25-2 g protein/kg 63-100 g total protein 25-30 mL/kg 1951-8601 total fluid mLs NUTRITION DIAGNOSIS: Swallowing difficulty R/T respiratory status, dysphagia as evidenced by h/o craniotomy, trach/vent dep, on GT feeds. CURRENT TF:Jevity 1.2 @55ml/hr ENTERAL NUTRITION RECOMMENDATIONS: Jevity 1.2 @ 55ml/hr x 24 hrs to provide 1320ml, 1584kcal, 73g prot, 1065ml free water * As medically appropriate, initiate Jevity 1.2 @ 35ml/hr x 6hrs * Advance 10ml q 4-6 hrs as tolerated to goal * HOB over 30 degrees/ water flush per MD ADDITIONAL RECOMMENDATIONS: * Daily calibrated bedscale wt- wts appear stable * Wound healing: TF rec @ goal will provide 100% RDI Add AMADOR BID via PEG, maintain Vit C * Monitor lytes-> need for renal formula * Monitor tolerace to TF, need for TF change . .
[2020-10-15] MEDS ORDERED: Tubing IV Secondary IV ONE (15:17)
[2020-10-15] MEDS ORDERED: NS 500ML ONE (15:17)
[2020-10-15] MEDS ORDERED: Sterile Water Irrig 1000ml IRRIG ONE (15:17)
[2020-10-15] MEDS ORDERED: NS 275ml ONE (15:17)
[2020-10-15 16:00] VITALS: BP 109/63
--- NOTE | 2020-10-15 16:59 | Pulmonology Progress Note ---
Subjective ROS Limited/Unobtainable: Yes Constitutional: Denies: fever Gastrointestinal/Abdominal: Reports: no symptoms Allergies: Coded Allergies: ADHESIVE TAPE (Verified Allergy, Unknown, 07/20/20) Uncoded Allergies: TAPE (Allergy, Unknown, 08/07/20) All Systems: reviewed and negative except above Objective Last 24 Hour Vital Signs Date Time Temp Pulse Resp B/P (MAP) Pulse Ox O2 Delivery O2 Flow Rate FiO2 10/15/20 16:00 97.7 54 16 109/63 (78) 100 10/15/20 16:00 40 10/15/20 15:10 55 16 40 10/15/20 13:10 52 16 40 10/15/20 12:00 97.9 50 15 117/67 (84) 100 10/15/20 12:00 40 10/15/20 12:00 Mechanical Ventilator 10/15/20 11:44 62 10/15/20 10:51 64 17 40 10/15/20 09:06 52 16 40 10/15/20 08:00 96.8 46 16 108/69 (82) 100 10/15/20 08:00 Mechanical Ventilator 10/15/20 08:00 40 10/15/20 07:36 46 10/15/20 07:08 45 16 40 10/15/20 05:30 43 16 40 10/15/20 04:00 97.5 50 18 105/56 (72) 100 10/15/20 04:00 40 10/15/20 04:00 Mechanical Ventilator 10/15/20 03:31 45 10/15/20 03:30 48 16 40 10/15/20 01:25 55 16 40 10/15/20 00:00 49 10/15/20 00:00 40 10/15/20 00:00 Mechanical Ventilator 10/15/20 00:00 97.5 50 20 101/55 (70) 100 10/14/20 23:05 49 16 40 10/14/20 20:41 50 16 40 10/14/20 20:00 50 10/14/20 20:00 40 10/14/20 20:00 97.5 49 20 108/59 (75) 100 10/14/20 20:00 Mechanical Ventilator 10/14/20 19:30 51 16 40 10/14/20 17:15 53 20 40 Intake and Output 10/14/20 10/15/20 19:00 07:00 Intake Total 1122.33 ml 695 ml Output Total 500 ml 1200 ml Balance 622.33 ml -505 ml Free Water 400 ml 90 ml IV Total 62.33 ml Tube Feeding 660 ml 605 ml Output Urine Total 500 ml 1200 ml # Bowel Movements 1 Current Medications Medications (Trade) Dose Ordered Sig/Piedad Route PRN Reason Start Time Stop Time Status Last Admin Dose Admin Acetaminophen (Tylenol) 650 mg Q6H PRN GT Temp >100.5 10/11/20 23:00 11/10/20 22:59 Acetaminophen/ Hydrocodone Bitart ([place] 10/325) 1 tab Q4H PRN GT For Pain 10/11/20 23:00 10/18/20 22:59 10/14/20 10:16 Ascorbic Acid (Vitamin C) 500 mg DAILY GT 10/12/20 09:00 11/11/20 08:59 10/15/20 08:25 Baclofen (Lioresal) 10 mg THREE TIMES A DAY GT 10/12/20 09:00 11/11/20 08:59 10/15/20 13:10 Chlorhexidine Gluconate (Christy-Hex 2%) 1 applic DAILY@2000 TOPIC 10/14/20 20:00 01/12/21 19:59 Heparin Sodium/ Sodium Chloride (Heparin 1000 units/500ml Premix) 1,000 unit ONCE PRN IV PICC LINE PLACEMENT 10/14/20 17:15 10/16/20 17:14 Levetiracetam (Keppra) 500 mg Q8HR GT 10/14/20 14:00 11/13/20 13:59 10/15/20 13:11 Lidocaine HCl (Xylocaine 1% 30ml) 30 ml ONCE PRN INJ PICC LINE PLACEMENT 10/14/20 17:15 10/16/20 17:14 Magnesium Oxide (Mag-Ox 400mg) 400 mg DAILY GT 10/12/20 09:00 11/11/20 08:59 10/15/20 08:29 Metoclopramide HCl (Reglan) 10 mg Q8H PRN IVP Nausea & Vomiting 10/11/20 23:00 11/10/20 22:59 Morphine Sulfate (Morphine Sulfate) 4 mg Q4H PRN IVP Severe Pain (Pain Scale 7-10) 10/11/20 23:15 10/18/20 23:14 Multivitamins (Multivitamins W/ Minerals 15ml Liquid) 15 ml DAILY GT 10/12/20 09:00 11/11/20 08:59 10/15/20 08:29 Polyethylene Glycol (Miralax) 17 gm BEDTIME PRN GT Constipation 10/11/20 23:00 11/10/20 22:59 Trimethoprim/ Sulfamethoxazole (Bactrim-DS) 1 tab TWICE A DAY ORAL 10/15/20 13:00 10/22/20 12:59 10/15/20 13:10 Ursodiol (Actigall) 300 mg TWICE A DAY NG 10/12/20 09:00 01/10/21 08:59 10/15/20 08:29 Zinc Sulfate (Zinc Sulfate) 220 mg DAILY GT 10/12/20 09:00 01/10/21 08:59 10/15/20 08:29 Assessment/Plan Assessment/Plan Pulmonary Progress Note HPI: Patient is a 35-year-old man with history of sickle cell disease, intracranial bleed, status post craniotomy, respiratory failure, admitted with recurrent sepsis and anemia. S/p tracheostomy and on mechanical ventilator. PAST MEDICAL HISTORY: 1. History of sickle cell disease. 2. Intracranial bleed, status post craniotomy. 3. Chronic respiratory failure, status post tracheostomy. SOCIAL HISTORY: No history of smoking, alcohol, or drug use. FAMILY HISTORY: Noncontributory. ROS Limited/Unobtainable: Yes Subjective stable overnight care noted Condition: stable Allergies: Coded Allergies: ADHESIVE TAPE (Verified Allergy, Unknown, 07/20/20) Uncoded Allergies: TAPE (Allergy, Unknown, 08/07/20) All Systems: reviewed and negative except above Objective Vital Signs Noted Objective: WDWN,previous right craniotomy NAD reduced breath sounds bilaterally without rhonchi or wheeze [id number] without MRG NABS nontender GT no CCE reduced LOC Laboratory Tests noted Medications noted Assessment/Plan Assessment/Plan Recurrent sepsis s/p PICC line infection with positive BC, s/p removal of line History of previous MRSA sepsis probably due to infected Port-A-Cath Sickle cell anemia Chronic respiratory failure, ventilator dependent, with tracheostomy status Transaminitis Previous ICH,sp craniotomy Seizure disorder acute pneumonia leukocytosis Plan care noted stable pulmonary status IV antibiotics per ID TFN PRN respiratory care as is Ventilatory support - continue volume ventilation, oxygen therapy and 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
--- NOTE | 2020-10-15 17:13 | Surgery Progress Note ---
Surgery Progress Note Subjective Additional Comments lost iv on abx plan new picc tomorrow will consider trach change soon Objective Last 24 Hour Vital Signs Date Time Temp Pulse Resp B/P (MAP) Pulse Ox O2 Delivery O2 Flow Rate FiO2 10/15/20 16:00 97.7 54 16 109/63 (78) 100 10/15/20 16:00 40 10/15/20 15:10 55 16 40 10/15/20 13:10 52 16 40 10/15/20 12:00 97.9 50 15 117/67 (84) 100 10/15/20 12:00 40 10/15/20 12:00 Mechanical Ventilator 10/15/20 11:44 62 10/15/20 10:51 64 17 40 10/15/20 09:06 52 16 40 10/15/20 08:00 96.8 46 16 108/69 (82) 100 10/15/20 08:00 Mechanical Ventilator 10/15/20 08:00 40 10/15/20 07:36 46 10/15/20 07:08 45 16 40 10/15/20 05:30 43 16 40 10/15/20 04:00 97.5 50 18 105/56 (72) 100 10/15/20 04:00 40 10/15/20 04:00 Mechanical Ventilator 10/15/20 03:31 45 10/15/20 03:30 48 16 40 10/15/20 01:25 55 16 40 10/15/20 00:00 49 10/15/20 00:00 40 10/15/20 00:00 Mechanical Ventilator 10/15/20 00:00 97.5 50 20 101/55 (70) 100 10/14/20 23:05 49 16 40 10/14/20 20:41 50 16 40 10/14/20 20:00 50 10/14/20 20:00 40 10/14/20 20:00 97.5 49 20 108/59 (75) 100 10/14/20 20:00 Mechanical Ventilator 10/14/20 19:30 51 16 40 10/14/20 17:15 53 20 40 I&O Intake and Output 10/14/20 10/15/20 19:00 07:00 Intake Total 1122.33 ml 695 ml Output Total 500 ml 1200 ml Balance 622.33 ml -505 ml Free Water 400 ml 90 ml IV Total 62.33 ml Tube Feeding 660 ml 605 ml Output Urine Total 500 ml 1200 ml # Bowel Movements 1 Dressing: saturated Cardiovascular: RSR Respiratory: decreased breath sounds Abdomen: non-tender, present bowel sounds Extremities: no edema, no tenderness, no cyanosis, other Plan Problems: (1) Sickle cell anemia (2) Sickle cell crisis (3) Anemia (4) Leukocytosis Assessment & Plan: line out cont abx trends labs abx as per ID respiratory improved will need to replace trach but currently stable volumes and saturation (5) Bacteremia associated with intravascular line Assessment & Plan: PICC line removed on abx dressings changed prn wounds table without signs of infection likely etiology picc DAILY ESTIMATED NEEDS: Needs based on Underweight, Critical care, wound/ 50kg 25-35 kcals/kg 8237-1658 total kcals 1.25-2 g protein/kg 63-100 g total protein 25-30 mL/kg 1603-5960 total fluid mLs NUTRITION DIAGNOSIS: Swallowing difficulty R/T respiratory status, dysphagia as evidenced by h/o craniotomy, trach/vent dep, on GT feeds. CURRENT TF:Vital 1.2 @55ml/hr ENTERAL NUTRITION RECOMMENDATIONS: Jevity 1.2 @ 55ml/hr x 24 hrs to provide 1320ml, 1584kcal, 73g prot, 1065ml free water * As medically appropriate, intiiate Jevity 1.2 @ 35ml/hr x 6hrs * Advance 10ml q 4-6 hrs as tolerated to goal * HOB over 30 degrees/ water flush per MD ADDITIONAL RECOMMENDATIONS: * Daily calibrated bedscale wt- wts appear stable * Wound healing: TF rec @ goal will provide 100% RDI Add AMADOR BID, F/up w/ WC eval * Monitor lytes-> need for renal formula * Monitor tolerance to TF, need for TF change (6) Decubitus skin ulcer Assessment & Plan: SACRUM- STAGE II PRESSURE ULCER MEASURING 1.5X0.5X0.2CM. WOUND BED PINK WITH MINIMAL SERO-SANGUINEOUS DRAINAGE. RECOMMEND-CLEAN WITH SALINE. PAT DRY. APPLY CALAZINE AND COVER WITH OPTIFOAM DRESSING. REPLACE DAILY. LEFT HEEL- STAGE I PRESSURE ULCER. 4X4X0.1CM NON-BLANCHABLE ERYTHEMA NOTED. RECOMMEND-APPLY SKIN CAVILON BARRIER AND COVER WITH OPTIFOAM DRESSING. REPLACE EVERY 3 DAYS. CONTINUE WOUND PREVENTION PROTOCOLS. REPOSITION AT LEAST EVERY 2 HOURS OR TOLERATED OFF-LOAD HEELS WITH PILLOWS (7) Tachycardia (8) Sepsis (9) Pneumonia (10) Severe sepsis (11) Port-A-Cath in place (12) Acute prerenal azotemia Harman Zhao Oct 15, 2020 17:13
--- NOTE | 2020-10-15 19:00 | NUR ---
RESPIRATORY NOTE: Received pt on AC 16, 500VT, 40%, PEEP +5. Pt is trach-dependent w/ a cuffed, Shiley 6 XLT tube. Pt alert/awake, follows commands. B/S carlos. rhonchi, sxn small amounts of thick/thin, white to pale-yellow secretions. Vent plugged into red outlet, ambubag at bedside. Pt resting comfortably, in no apparent distress at this time. Will continue plan of care.
--- NOTE | 2020-10-15 19:16 | NUR ---
NURSE HAND-OFF REPORT: Important Events on Shif:stable Patient Status: full code Diet: jevity 1.2 @55 Pending Orders: [] Pending Results/Labs:[] Pending MD notification:[] Latest Vital Signs: Temperature 97.7 , Pulse 54 , B/P 109 /63 , Respiratory Rate 16 , O2 SAT 100 , Mechanical Ventilator, O2 Flow Rate . Vital Sign Comment: stable EKG Rhythm: Sinus Bradycardia Rhythm change?: Y MD Notified?: N - MD Response: Latest Stevens Fall Score: 50 Fall Risk: High Risk Safety Measures: Call light Within Reach, Bed Alarm Zone 2, Side Rails Side Rails x3, Bed position Low and Locked. Fall Precautions: Yellow Socks Yellow Gown Door Sign Patient Fall Education Report given to chinedu blackwell.
--- NOTE | 2020-10-15 19:17 | NUR ---
NURSE NOTES: Received report from Robbie Fernandez. Pt is resting on the bed and awake, watching television. On trach to Vent dependent and tolerating prescribed settings. Pt has G-tube running with Jevity 1.2 @ 55cc/hr. No residual noted. No IV line noted. On site monitor with SB and HR: 45-50's. Safety measures in placed, fall and seizure precaution. Will continue plan of care and monitor patient.
[2020-10-15] MEDS: Dyna-Hex 2% Top Sol 2oz TOPIC SCH (19:48)
[2020-10-15 20:00] VITALS: BP 111/72
--- NOTE | 2020-10-15 22:00 | NUR ---
NURSE NOTES: Turned and repositioned. Oral care provided. Turned off lights as per Pt request. Will continue to monitor
[2020-10-16] VITALS: BP 112/65
[2020-10-16 04:00] VITALS: BP 101/73
[2020-10-16] MEDS: levETIRAcetam 500mg/5ml Liquid GT SCH ×2 (05:49→13:14)
--- NOTE | 2020-10-16 07:10 | NUR ---
NURSE NOTES: Received report from ARLYN Zaidi. Pt is lying in bed, asleep, not in distress. Tolerating vent setting of AC 16, TV 500, PEEP 5, RiO2 40% and saturating 100%. Sinus Momo on the neck skewer. Vital signs are stable. G-tube is intact and patent and running Jevity 1.2 @ 55cch/hr. Pt is scheduled for PICC line insertion. Bed is locked and in lowest position, bed alarm on, head of bed is elevated at all time. Will continue to monitor pt. Will continue with the plan of care.
--- NOTE | 2020-10-16 07:27 | NUR ---
NURSE HAND-OFF REPORT: Important Events on Shift: PICC line insertion Patient Status: Stable Diet: Jevity 1.2 Pending Orders: Pending Results/Labs: Pending MD notification: Latest Vital Signs: Temperature 98.1 , Pulse 51 , B/P 101 /73 , Respiratory Rate 16 , O2 SAT 100 , Mechanical Ventilator, O2 Flow Rate . Vital Sign Comment: EKG Rhythm: Sinus Bradycardia Rhythm change?: N MD Notified?: N - MD Response: Latest Stevens Fall Score: 50 Fall Risk: High Risk Safety Measures: Call light Within Reach, Bed Alarm Zone 2, Side Rails Side Rails x3, Bed position Low and Locked. Fall Precautions: Yellow Socks Yellow Gown Door Sign Patient Fall Education Report given to ARLYN Mccormick.
[2020-10-16 08:00] VITALS: BP 101/63
--- NOTE | 2020-10-16 08:18 | Pulmonology Progress Note ---
Subjective ROS Limited/Unobtainable: Yes Constitutional: Denies: fever Gastrointestinal/Abdominal: Reports: no symptoms Allergies: Coded Allergies: ADHESIVE TAPE (Verified Allergy, Unknown, 07/20/20) Uncoded Allergies: TAPE (Allergy, Unknown, 08/07/20) All Systems: reviewed and negative except above Subjective care noted on vent Objective Last 24 Hour Vital Signs Date Time Temp Pulse Resp B/P (MAP) Pulse Ox O2 Delivery O2 Flow Rate FiO2 10/16/20 05:28 51 16 40 10/16/20 04:00 98.1 53 19 101/73 (82) 100 10/16/20 04:00 40 10/16/20 04:00 Mechanical Ventilator 10/16/20 03:29 54 16 40 10/16/20 03:16 50 10/16/20 01:10 51 16 40 10/16/20 00:00 Mechanical Ventilator 10/16/20 00:00 98.0 51 22 112/65 (81) 100 10/15/20 23:47 59 10/15/20 23:01 52 16 40 10/15/20 21:07 58 16 40 10/15/20 20:00 Mechanical Ventilator 10/15/20 20:00 97.8 51 18 111/72 (85) 100 10/15/20 20:00 52 10/15/20 20:00 40 10/15/20 18:57 54 16 40 10/15/20 17:11 52 16 40 10/15/20 16:00 52 10/15/20 16:00 97.7 54 16 109/63 (78) 100 10/15/20 16:00 40 10/15/20 16:00 Mechanical Ventilator 10/15/20 15:10 55 16 40 10/15/20 13:10 52 16 40 10/15/20 12:00 97.9 50 15 117/67 (84) 100 10/15/20 12:00 40 10/15/20 12:00 Mechanical Ventilator 10/15/20 11:44 62 10/15/20 10:51 64 17 40 10/15/20 09:06 52 16 40 Intake and Output 10/15/20 10/16/20 19:00 07:00 Intake Total 980 ml 460 ml Output Total 800 ml Balance 180 ml 460 ml Free Water 320 ml 20 ml Tube Feeding 660 ml 440 ml Output Urine Total 800 ml # Bowel Movements 1 Objective WDWN NAD reduced breath sounds bilaterally without rhonchi or wheeze [id number] without MRG NABS nontender no HSM no CCE contractures reduced LOC GT and trach Current Medications Medications (Trade) Dose Ordered Sig/Piedad Route PRN Reason Start Time Stop Time Status Last Admin Dose Admin Acetaminophen (Tylenol) 650 mg Q6H PRN GT Temp >100.5 10/11/20 23:00 11/10/20 22:59 Acetaminophen/ Hydrocodone Bitart ([place] 10/325) 1 tab Q4H PRN GT For Pain 10/11/20 23:00 10/18/20 22:59 10/14/20 10:16 Ascorbic Acid (Vitamin C) 500 mg DAILY GT 10/12/20 09:00 11/11/20 08:59 10/15/20 08:25 Baclofen (Lioresal) 10 mg THREE TIMES A DAY GT 10/12/20 09:00 11/11/20 08:59 10/15/20 17:03 Chlorhexidine Gluconate (Christy-Hex 2%) 1 applic DAILY@1999 TOPIC 10/14/20 20:00 01/12/21 19:59 Heparin Sodium/ Sodium Chloride (Heparin 1000 units/500ml Premix) 1,000 unit ONCE PRN IV PICC LINE PLACEMENT 10/14/20 17:15 10/16/20 17:14 Levetiracetam (Keppra) 500 mg Q8HR GT 10/14/20 14:00 11/13/20 13:59 10/16/20 05:49 Lidocaine HCl (Xylocaine 1% 30ml) 30 ml ONCE PRN INJ PICC LINE PLACEMENT 10/14/20 17:15 10/16/20 17:14 Magnesium Oxide (Mag-Ox 400mg) 400 mg DAILY GT 10/12/20 09:00 11/11/20 08:59 10/15/20 08:29 Metoclopramide HCl (Reglan) 10 mg Q8H PRN IVP Nausea & Vomiting 10/11/20 23:00 11/10/20 22:59 Morphine Sulfate (Morphine Sulfate) 4 mg Q4H PRN IVP Severe Pain (Pain Scale 7-10) 10/11/20 23:15 10/18/20 23:14 Multivitamins (Multivitamins W/ Minerals 15ml Liquid) 15 ml DAILY GT 10/12/20 09:00 11/11/20 08:59 10/15/20 08:29 Polyethylene Glycol (Miralax) 17 gm BEDTIME PRN GT Constipation 10/11/20 23:00 11/10/20 22:59 Trimethoprim/ Sulfamethoxazole (Bactrim-DS) 1 tab TWICE A DAY ORAL 10/15/20 13:00 10/22/20 12:59 10/15/20 20:27 Ursodiol (Actigall) 300 mg TWICE A DAY NG 10/12/20 09:00 01/10/21 08:59 10/15/20 17:03 Zinc Sulfate (Zinc Sulfate) 220 mg DAILY GT 10/12/20 09:00 01/10/21 08:59 10/15/20 08:29 Assessment/Plan Assessment/Plan chronic respiratory failure trach GT sepsis anemia leukocytosis sickle cell anemia PLAN IV antibiotics respiratory care vent feeds off load wound care impression, plan, and exam edited and reviewed in detail care discussed with Jmaes Barksdale MD Oct 16, 2020 08:18
[2020-10-16] MEDS: Ascorbic Acid 500mg tab GT SCH (08:47)
[2020-10-16] MEDS: Multivitamins W/Minerals 15 ML UDC GT SCH (08:47)
[2020-10-16] MEDS: Magnesium Oxide 400mg tab GT SCH (08:47)
[2020-10-16] MEDS: Zinc Sulfate 220mg GT SCH (08:48)
[2020-10-16] MEDS: Ursodiol 300mg cap NG SCH (08:48)
--- NOTE | 2020-10-16 08:49 | General Progress Note ---
Subjective ROS Limited/Unobtainable: No Constitutional: Reports: malaise, weakness HEENT: Reports: no symptoms Cardiovascular: Reports: no symptoms Respiratory: Reports: cough, shortness of breath Gastrointestinal/Abdominal: Reports: difficulty swallowing Genitourinary: Reports: no symptoms Neurologic/Psychiatric: Reports: pre-existing deficit, seizure Endocrine: Reports: no symptoms Hematologic/Lymphatic: Reports: anemia Allergies: Coded Allergies: ADHESIVE TAPE (Verified Allergy, Unknown, 07/20/20) Uncoded Allergies: TAPE (Allergy, Unknown, 08/07/20) All Systems: reviewed and negative except above Subjective no events. stable on the vent. no fever or chills. no sob. wbc trending down. Na elevated. on iv abx. tolerating feeds. no szs. refusing IV insertion. refusing labs Objective Last 24 Hour Vital Signs Date Time Temp Pulse Resp B/P (MAP) Pulse Ox O2 Delivery O2 Flow Rate FiO2 10/16/20 08:00 98.7 71 16 101/63 (76) 100 10/16/20 05:28 51 16 40 10/16/20 04:00 98.1 53 19 101/73 (82) 100 10/16/20 04:00 40 10/16/20 04:00 Mechanical Ventilator 10/16/20 03:29 54 16 40 10/16/20 03:16 50 10/16/20 01:10 51 16 40 10/16/20 00:00 Mechanical Ventilator 10/16/20 00:00 98.0 51 22 112/65 (81) 100 10/15/20 23:47 59 10/15/20 23:01 52 16 40 10/15/20 21:07 58 16 40 10/15/20 20:00 Mechanical Ventilator 10/15/20 20:00 97.8 51 18 111/72 (85) 100 10/15/20 20:00 52 10/15/20 20:00 40 10/15/20 18:57 54 16 40 10/15/20 17:11 52 16 40 10/15/20 16:00 52 10/15/20 16:00 97.7 54 16 109/63 (78) 100 10/15/20 16:00 40 10/15/20 16:00 Mechanical Ventilator 10/15/20 15:10 55 16 40 10/15/20 13:10 52 16 40 10/15/20 12:00 97.9 50 15 117/67 (84) 100 10/15/20 12:00 40 10/15/20 12:00 Mechanical Ventilator 10/15/20 11:44 62 10/15/20 10:51 64 17 40 10/15/20 09:06 52 16 40 Intake and Output 10/15/20 10/16/20 19:00 07:00 Intake Total 980 ml 460 ml Output Total 800 ml Balance 180 ml 460 ml Free Water 320 ml 20 ml Tube Feeding 660 ml 440 ml Output Urine Total 800 ml # Bowel Movements 1 Height (Feet): 5 Height (Inches): 7.00 Weight (Pounds): 110 Objective General Appearance: WD/WN, alert EENT: normal ENT inspection Neck: non-tender, normal alignment, supple Cardiovascular: normal peripheral pulses, normal rate, regular rhythm Respiratory/Chest: chest wall non-tender, lungs clear, normal breath sounds Edema: no edema noted Arm (L), no edema noted Arm (R) Assessment/Plan Problem List: (1) Bacteremia associated with intravascular line ICD Codes: T82.7XXA - Infection and inflammatory reaction due to other cardiac and vascular devices, implants and grafts, initial encounter; R78.81 - Bacteremia SNOMED: 157704113 (2) Sickle cell crisis ICD Codes: D57.00 - Hb-SS disease with crisis, unspecified SNOMED: 841424607 (3) Leukocytosis ICD Codes: D72.829 - Elevated white blood cell count, unspecified SNOMED: 700860594, 726149212 (4) Anemia ICD Codes: D64.9 - Anemia, unspecified SNOMED: 808554103 Status: stable, progressing Assessment/Plan: po abx follow up cultures monitor h/h vent pt/ot sz rx tube feeds increase water flushes monitor lytes cancel picc Lalo Celaya MD Oct 16, 2020 08:49
[2020-10-16] MEDS ORDERED: BACTRIM-DS1 EA ORAL (08:52)
[2020-10-16] MEDS: Bactrim-DS 1 tab ORAL SCH (08:53)
--- NOTE | 2020-10-16 09:48 | NUR ---
*-*DISCHARGE PLANNING*-* PATIENT HAS BEEN REFERRED BACK TO: [facility] P: [phone] F: [phone]
--- NOTE | 2020-10-16 11:00 | NUR ---
NURSE NOTES: Initial assessment done. Morning medications given. Pt is tolerating vent setting with O2 saturation 99-100%. Vitals signs remain stable. Tolerating G-tube feeding with 10cc residual. Will continue to monitor pt.
--- NOTE | 2020-10-16 11:36 | Infectious Diseases Prog Note ---
Assessment/Plan Assessment/Plan antibiotics : bactrim A 1. serratia sepsis s/p catheter removal 2. sickle cell disease 3. intracranial bleed s/p craniotomy 4. respiratory failure 5. leucocytosis improving P 1. patient refusing iv access 2. continue bactrim 4 po more days Subjective ROS Limited/Unobtainable: Yes Allergies: Coded Allergies: ADHESIVE TAPE (Verified Allergy, Unknown, 07/20/20) Uncoded Allergies: TAPE (Allergy, Unknown, 08/07/20) Objective Last 24 Hour Vital Signs Date Time Temp Pulse Resp B/P (MAP) Pulse Ox O2 Delivery O2 Flow Rate FiO2 10/16/20 09:31 55 16 40 10/16/20 08:00 40 10/16/20 08:00 Mechanical Ventilator 10/16/20 08:00 98.7 71 16 101/63 (76) 100 10/16/20 07:43 45 16 40 10/16/20 05:28 51 16 40 10/16/20 04:00 98.1 53 19 101/73 (82) 100 10/16/20 04:00 40 10/16/20 04:00 Mechanical Ventilator 10/16/20 03:29 54 16 40 10/16/20 03:16 50 10/16/20 01:10 51 16 40 10/16/20 00:00 Mechanical Ventilator 10/16/20 00:00 98.0 51 22 112/65 (81) 100 10/15/20 23:47 59 10/15/20 23:01 52 16 40 10/15/20 21:07 58 16 40 10/15/20 20:00 Mechanical Ventilator 10/15/20 20:00 97.8 51 18 111/72 (85) 100 10/15/20 20:00 52 10/15/20 20:00 40 10/15/20 18:57 54 16 40 10/15/20 17:11 52 16 40 10/15/20 16:00 52 10/15/20 16:00 97.7 54 16 109/63 (78) 100 10/15/20 16:00 40 10/15/20 16:00 Mechanical Ventilator 10/15/20 15:10 55 16 40 10/15/20 13:10 52 16 40 10/15/20 12:00 97.9 50 15 117/67 (84) 100 10/15/20 12:00 40 10/15/20 12:00 Mechanical Ventilator 10/15/20 11:44 62 Height (Feet): 5 Height (Inches): 7.00 Weight (Pounds): 110 HEENT: status post trach Respiratory/Chest: lungs clear Cardiovascular: normal rate, regular rhythm, no gallop/murmur Abdomen: soft, non tender, other - GT Extremities: no edema Current Medications Medications (Trade) Dose Ordered Sig/Piedad Route PRN Reason Start Time Stop Time Status Last Admin Dose Admin Acetaminophen (Tylenol) 650 mg Q6H PRN GT Temp >100.5 10/11/20 23:00 11/10/20 22:59 Acetaminophen/ Hydrocodone Bitart (Garnavillo 10/325) 1 tab Q4H PRN GT For Pain 10/11/20 23:00 10/18/20 22:59 10/14/20 10:16 Ascorbic Acid (Vitamin C) 500 mg DAILY GT 10/12/20 09:00 11/11/20 08:59 10/16/20 08:47 Baclofen (Lioresal) 10 mg THREE TIMES A DAY GT 10/12/20 09:00 11/11/20 08:59 10/16/20 08:47 Chlorhexidine Gluconate (Christy-Hex 2%) 1 applic DAILY@1999 TOPIC 10/14/20 20:00 01/12/21 19:59 Heparin Sodium/ Sodium Chloride (Heparin 1000 units/500ml Premix) 1,000 unit ONCE PRN IV PICC LINE PLACEMENT 10/14/20 17:15 10/16/20 17:14 Levetiracetam (Keppra) 500 mg Q8HR GT 10/14/20 14:00 11/13/20 13:59 10/16/20 05:49 Lidocaine HCl (Xylocaine 1% 30ml) 30 ml ONCE PRN INJ PICC LINE PLACEMENT 10/14/20 17:15 10/16/20 17:14 Magnesium Oxide (Mag-Ox 400mg) 400 mg DAILY GT 10/12/20 09:00 11/11/20 08:59 10/16/20 08:47 Metoclopramide HCl (Reglan) 10 mg Q8H PRN IVP Nausea & Vomiting 10/11/20 23:00 11/10/20 22:59 Morphine Sulfate (Morphine Sulfate) 4 mg Q4H PRN IVP Severe Pain (Pain Scale 7-10) 10/11/20 23:15 10/18/20 23:14 Multivitamins (Multivitamins W/ Minerals 15ml Liquid) 15 ml DAILY GT 10/12/20 09:00 11/11/20 08:59 10/16/20 08:47 Polyethylene Glycol (Miralax) 17 gm BEDTIME PRN GT Constipation 10/11/20 23:00 11/10/20 22:59 Trimethoprim/ Sulfamethoxazole (Bactrim-DS) 1 tab TWICE A DAY ORAL 10/15/20 13:00 10/22/20 12:59 10/16/20 08:53 Ursodiol (Actigall) 300 mg TWICE A DAY NG 10/12/20 09:00 01/10/21 08:59 10/16/20 08:48 Zinc Sulfate (Zinc Sulfate) 220 mg DAILY GT 10/12/20 09:00 01/10/21 08:59 10/16/20 08:48 Isabelle Degroot MD Oct 16, 2020 11:36
[2020-10-16 12:00] VITALS: BP 104/59
--- NOTE | 2020-10-16 12:33 | NUR ---
*-*DISCHARGE PLANNING*-* PATIENT HAS BEEN REFERRED BACK TO: [facility] P: [phone] FOR NURSE TO NURSE REPORT ROOM# 44.C [facility] SET UP FOR 2:30PM CLINICAL AUDITOR THROUGH "[facility]" S/W VANNA WITH [facility] [id number] PLACED A CALL TO PATIENTS MOTHER KORIN , WHO IS IN AGREEMENT WITH DISCHARGE PLAN.
--- NOTE | 2020-10-16 15:27 | NUR ---
*-*DISCHARGE PLANNING*-* PATIENT HAS BEEN REFERRED BACK TO: [facility] P: [phone] FOR NURSE TO NURSE REPORT ROOM# 44.C [facility] SET UP "[facility]" S/W [facility]. [facility] STATED THAT THEY WILL CALL BE BACK WITH ETA WHEN TIME IS CONFIRMED. PLACED A CALL TO PATIENTS MOTHER KORIN , WHO IS IN AGREEMENT WITH DISCHARGE PLAN.
[2020-10-16 16:00] VITALS: BP 98/56
--- NOTE | 2020-10-16 16:20 | NUR ---
NURSE NOTES: Gave report to ARLYN James from [facility]. Pt is going to room 42-A. Pt is awake, on the phone with his family. Not in distress. Stable vital signs and tolerating ventilation setting. 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 Will continue to monitor the pt.
--- NOTE | 2020-10-16 17:23 | NUR ---
NURSE NOTES: Gave report to ARLYN Weller of [facility]. Endorsed belongings. Pt is awake, oriented, not in distress. Stable vital signs : BP 103/49, HR 53, RR 18, O2 sat 100%, Temp 97.3. Tolerating vent setting of AC 16, TV 500, PEEP5, FiO2 40% and saturating 98-100%. Pt is going to room 42-A, gave report to ARLYN James of [facility].
[2020-10-16] MEDS ORDERED: Sterile Water Irrig 1000ml IRRIG ONE (17:54)
--- NOTE | 2020-10-16 18:52 | Surgery Progress Note ---
Surgery Progress Note Subjective Symptoms: improved, tolerating diet, passing flatus, BM Objective Last 24 Hour Vital Signs Date Time Temp Pulse Resp B/P (MAP) Pulse Ox O2 Delivery O2 Flow Rate FiO2 10/16/20 16:55 47 16 40 10/16/20 16:00 97.3 49 18 98/56 (70) 100 10/16/20 16:00 Mechanical Ventilator 10/16/20 16:00 48 10/16/20 16:00 40 10/16/20 15:10 52 16 40 10/16/20 13:20 55 16 40 10/16/20 12:00 Mechanical Ventilator 10/16/20 12:00 62 10/16/20 12:00 98.1 63 17 104/59 (74) 96 10/16/20 12:00 40 10/16/20 11:34 58 17 40 10/16/20 09:31 55 16 40 10/16/20 08:00 40 10/16/20 08:00 Mechanical Ventilator 10/16/20 08:00 49 10/16/20 08:00 98.7 71 16 101/63 (76) 100 10/16/20 07:43 45 16 40 10/16/20 05:28 51 16 40 10/16/20 04:00 98.1 53 19 101/73 (82) 100 10/16/20 04:00 40 10/16/20 04:00 Mechanical Ventilator 10/16/20 03:29 54 16 40 10/16/20 03:16 50 10/16/20 01:10 51 16 40 10/16/20 00:00 Mechanical Ventilator 10/16/20 00:00 98.0 51 22 112/65 (81) 100 10/15/20 23:47 59 10/15/20 23:01 52 16 40 10/15/20 21:07 58 16 40 10/15/20 20:00 Mechanical Ventilator 10/15/20 20:00 97.8 51 18 111/72 (85) 100 10/15/20 20:00 52 10/15/20 20:00 40 10/15/20 18:57 54 16 40 I&O Intake and Output 10/15/20 10/16/20 19:00 07:00 Intake Total 980 ml 460 ml Output Total 800 ml Balance 180 ml 460 ml Free Water 320 ml 20 ml Tube Feeding 660 ml 440 ml Output Urine Total 800 ml # Bowel Movements 1 Dressing: dry Wound: clean Cardiovascular: RSR Respiratory: clear Abdomen: soft, non-tender, present bowel sounds Extremities: no edema, no tenderness, no cyanosis Plan Problems: (1) Sickle cell anemia (2) Sickle cell crisis (3) Anemia (4) Leukocytosis Assessment & Plan: line out cont abx trends labs abx as per ID respiratory improved will need to replace trach but currently stable volumes and saturation (5) Bacteremia associated with intravascular line Assessment & Plan: PICC line removed on abx dressings changed prn wounds table without signs of infection likely etiology picc DAILY ESTIMATED NEEDS: Needs based on Underweight, Critical care, wound/ 50kg 25-35 kcals/kg 4079-6859 total kcals 1.25-2 g protein/kg 63-100 g total protein 25-30 mL/kg 6183-1642 total fluid mLs NUTRITION DIAGNOSIS: Swallowing difficulty R/T respiratory status, dysphagia as evidenced by h/o craniotomy, trach/vent dep, on GT feeds. CURRENT TF:Vital 1.2 @55ml/hr ENTERAL NUTRITION RECOMMENDATIONS: Jevity 1.2 @ 55ml/hr x 24 hrs to provide 1320ml, 1584kcal, 73g prot, 1065ml free water * As medically appropriate, intiiate Jevity 1.2 @ 35ml/hr x 6hrs * Advance 10ml q 4-6 hrs as tolerated to goal * HOB over 30 degrees/ water flush per MD ADDITIONAL RECOMMENDATIONS: * Daily calibrated bedscale wt- wts appear stable * Wound healing: TF rec @ goal will provide 100% RDI Add AMADOR BID, F/up w/ WC eval * Monitor lytes-> need for renal formula * Monitor tolerance to TF, need for TF change (6) Decubitus skin ulcer Assessment & Plan: SACRUM- STAGE II PRESSURE ULCER MEASURING 1.5X0.5X0.2CM. WOUND BED PINK WITH MINIMAL SERO-SANGUINEOUS DRAINAGE. RECOMMEND-CLEAN WITH SALINE. PAT DRY. APPLY CALAZINE AND COVER WITH OPTIFOAM NELL SSING. REPLACE DAILY. LEFT HEEL- STAGE I PRESSURE ULCER. 4X4X0.1CM NON-BLANCHABLE ERYTHEMA NOTED. RECOMMEND-APPLY SKIN CAVILON BARRIER AND COVER WITH OPTIFOAM DRESSING. REPLACE EVERY 3 DAYS. CONTINUE WOUND PREVENTION PROTOCOLS. REPOSITION AT LEAST EVERY 2 HOURS OR TOLERATED OFF-LOAD HEELS WITH PILLOWS (7) Tachycardia (8) Sepsis (9) Pneumonia (10) Severe sepsis (11) Port-A-Cath in place (12) Acute prerenal azotemia Additional Comments okay for d/c cont care plan plan trach exchange at later time okay with current trach. good volumes. no issues Harman Zhao Oct 16, 2020 18:52
--- NOTE | 2020-10-18 11:25 | Discharge Summary ---
Discharge Summary Discharge Summary _ DATE OF ADMISSION: 10/11/2020 DATE OF DISCHARGE: 10/16/2020 DISCHARGED BY: Dr. Celaya REASON FOR ADMISSION: 35 years old male with past medical history of sickle cell disease with cerebrovascular involvement, status post right craniotomy due to intracerebral hemorrhage, dysphagia, feeding by G-tube, seizure disorder , ventilator dependent respiratory failure, presented from the longterm facility due to anemia. No reported signs of bleeding. Patient by himself was unable to provide any history. Rapid COVID-19 was negative. Laboratory work-up revealed WBC 29.6, hemoglobin 7.5, hematocrit 22.8. Platelet count 370. INR 1.2. Potassium 5.6. BUN 59, creatinine 0.9. Total bili 1.2, direct bili 0.8. AST 66, ALT 83. Albumin 3.3. Troponin negative. EKG revealed sinus rhythm, no acute ischemic changes. Lactic acid was 0.4. Chest x-ray revealed no acute cardiopulmonary pathology. Urinalysis revealed no evidence of UTI. Patient subsequently admitted for further management. CONSULTANTS: pulmonary Dr. Nuñez ID specialist Dr. Degroot surgery Dr. Zhao [facility]SE: Patient admitted to direct observational unit. Ventilator support and pulmonary toilet provided. Patient started on broad-spectrum antibiotics. Strict aspiration precaution maintained. Blood culture revealed Serratia. Per ID specialist , bacteremia was most likely due to line infection. PICC line, present on admission, was discontinued . Peripheral line was placed for IV antibiotics. Leukocytosis trending down. No fevers. Per ID specialist patient will need to continue antibiotic at the facility to complete the course. Strict aspiration precaution maintained. Patient slowly started on tube feeding with tube feeding formula, goal rate and protein supplement as per registered dietitian recommendation. Hemoglobin and hematocrit were closely monitored with goal to keep hemoglobin above 7. Prior to transfer hemoglobin 8.2 , hematocrit 26.4. Seizure precaution maintained . Keppra continued. No evidence of seizure activity while in the hospital. Wound care for sacral decubitus ulcer stage II , present on admission , provided as per surgeon recommendation. Continue wound care at the facility. Patient clinically stabilized and was ready for transfer to longterm facility for continuation of care. FINAL DIAGNOSES: Serratia sepsis Bacteremia associated with intravascular line/PICC line discontinued Sickle cell crisis Sickle cell anemia Chronic respiratory failure, ventilator dependent Tracheostomy status Dysphagia , feeding by G-tube History of intracranial bleeding ,status post craniotomy Seizure disorder DISCHARGE MEDICATIONS: See Medication Reconciliation list. DISCHARGE INSTRUCTIONS: Patient was discharged to the longterm facility. Follow up with medical doctor at the facility. 35 years old male I have been assigned to dictate discharge summary for this account. I was not involved in the patient's management. Diana Banks NP Oct 18, 2020 11:25
== END 2020-10-16 17:55 | DRG 721 ==
LOC: EDBD 17:27 → EMR 17:45 → 2W 19:46 → EDBEDREQ 20:16 → 2W 21:59
PROC: 5A1955Z Respiratory Ventilation, Greater than 96 Consecutive Hours (ICD-10-PCS; principal; 2020-10-11)
PROC: 30233N1 Transfusion of Nonautologous Red Blood Cells into Peripheral Vein, Percutaneous Approach (ICD-10-PCS; 2020-10-11)
DX: T80.211A Bloodstream infection due to central venous catheter, initial encounter (principal); A41.53 Sepsis due to Serratia; R65.20 Severe sepsis without septic shock; D57.00 Hb-SS disease with crisis, unspecified; J96.10 Chronic respiratory failure, unspecified whether with hypoxia or hypercapnia; I69.298 Other sequelae of other nontraumatic intracranial hemorrhage; R13.10 Dysphagia, unspecified; Z43.1 Encounter for attention to gastrostomy; L89.152 Pressure ulcer of sacral region, stage 2; L89.621 Pressure ulcer of left heel, stage 1; J18.9 Pneumonia, unspecified organism; G40.909 Epilepsy, unspecified, not intractable, without status epilepticus; Z43.0 Encounter for attention to tracheostomy
CPT/HCPCS: 36415; 36430; 71045; 80053; 81003; 82248; 83605; 83735; 84484; 85007; 85025; 85044; 85610; 85730; 86850; 86900; 86901; 86920; 87040; 87081; 87181; 93005; 94002; 94003; 94664; 96361; 96365; 96368; 99291; J7030; U0002